=== PATIENT | male | born 1955 | race Caucasian/White ===

== ENCOUNTER 2016-07-07 01:07 | Inpatient (IN) | payer OTHER ==
[2016-07-07] MEDS ORDERED: SODIUM CHLORIDE 0.9% 1,000 ML IV STA ×2 (01:26→03:04)
--- NOTE | 2016-07-07 01:48 | ED ---
General Adult HPI - General Chief complaint: Nausea/Vomiting/Diarrhea Stated complaint: vomiting x 1 week Time Seen by Provider: 07/07/16 01:16 Source: patient, RN notes reviewed Mode of arrival: ambulatory Limitations: no limitations - History of Present Illness Initial comments: 60-year-old male presents emergency Department chief complaint not feeling well. Patient states that his been sick for over the last week. Patient states started with upper respiratory cold-like symptoms including cough, runny nose, fever and chills. Patient states that he saw his doctor in which she was prescribed an inhaler, antibiotics and Medrol Dosepak. Patient states his been taken Augmentin antibiotics. Patient states she's had uncontrollable nausea, vomiting. Patient had some loose stools. Patient states he just denies does not feel well.. Patient states he feels dehydrated. Patient states she has no specific abdominal pain at this time. Patient denies any chest pain at this time though he didn't state when he went to his doctor he did have chest pain. - Related Data Home Medications Medication Instructions Recorded Confirmed Atenolol [Tenormin] 50 mg PO QAM 12/11/13 03/18/15 Cyanocobalamin [Vitamin B-12] 500 mcg PO DAILY 12/11/13 03/18/15 Ferrous Sulfate [Feosol] 325 mg PO DAILY 12/11/13 03/18/15 Isosorbide Mononitrate [Imdur] 30 mg PO QAM 12/11/13 03/18/15 Pantoprazole Sodium [Protonix] 40 mg PO DAILY 12/11/13 03/18/15 Quinapril HCl [Accupril] 20 mg PO QAM 12/11/13 03/18/15 busPIRone HCL [Buspar] 15 mg PO BID 12/11/13 03/18/15 Previous Rx's Medication Instructions Recorded Docusate [Colace] 100 mg PO BID #30 capsule 01/30/15 Allergies Allergy/AdvReac Type Severity Reaction Status Date / Time No Known Allergies Allergy Verified 07/07/16 01:16 Review of Systems ROS Statement: Those systems with pertinent positive or pertinent negative responses have been documented in the HPI. ROS Other: All systems not noted in ROS Statement are negative. Past Medical History Past Medical History: CVA/TIA, GERD/Reflux, Hypertension, Osteoarthritis (OA), Skin Disorder Additional Past Medical History / Comment(s): MIGRAINES, HEART MURMUR, IRREGULAR HEARTBEAT, HIATAL HERNIA, ANEMIA, wound tailbone History of Any Multi-Drug Resistant Organisms: None Reported Past Surgical History: Hernia Repair, Orthopedic Surgery Additional Past Surgical History / Comment(s): RT SHOULDER REPAIR, RT ACHILLES TENDON, HEMORRHOIDS, MULTIPLE FATTY TUMORS. LT INGUINAL HERNIA REPAIR, FINGER REPAIR LT INDEX Past Anesthesia/Blood Transfusion Reactions: No Reported Reaction Additional Past Anesthesia/Blood Transfusion Reaction / Comment(s): UNKNOWN FAMILY HX Past Psychological History: Anxiety, Depression Smoking Status: Former smoker Past Alcohol Use History: None Reported Past Drug Use History: None Reported Additional Drug Use History / Comment(s): CURRENTLY USES MARIJUANA OCCASIONALLY - Past Family History Mother Family Medical History: Cancer Additional Family Medical History / Comment(s): BREAST CA Father Additional Family Medical History / Comment(s): BRAIN ANEURYSM General Exam Limitations: no limitations General appearance: alert, in no apparent distress Head exam: Present: atraumatic, normocephalic, normal inspection Eye exam: Present: normal appearance, PERRL, EOMI. Absent: scleral icterus, conjunctival injection, periorbital swelling ENT exam: Present: normal exam, normal oropharynx, mucous membranes moist, TM's normal bilaterally, normal external ear exam Neck exam: Present: normal inspection, full ROM. Absent: tenderness, meningismus, lymphadenopathy Respiratory exam: Present: normal lung sounds bilaterally. Absent: respiratory distress, wheezes, rales, rhonchi, stridor Cardiovascular Exam: Present: regular rate, normal rhythm, normal heart sounds. Absent: systolic murmur, diastolic murmur, rubs, gallop, clicks GI/Abdominal exam: Present: soft, tenderness (Mild epigastric tenderness), normal bowel sounds. Absent: distended, guarding, rebound, rigid Back exam: Absent: CVA tenderness (R), CVA tenderness (L) Neurological exam: Present: alert, oriented X3, CN II-XII intact Skin exam: Present: warm, dry, intact, normal color. Absent: rash Course Vital Signs 07/07/16 07/07/16 01:14 02:41 Temperature 98 F 97.8 F Pulse Rate 89 73 Respiratory 24 24 Rate Blood Pressure 162/90 158/96 O2 Sat by Pulse 98 96 Oximetry Medical Decision Making - Lab Data Result diagrams: 07/07/16 01:40 07/07/16 01:40 Lab Results 07/07/16 07/07/16 07/07/16 Range/Units 01:40 01:40 01:40 WBC 13.3 H (3.8-10.6) k/uL RBC 5.24 (4.30-5.90) m/uL Hgb 16.8 (13.0-17.5) gm/dL Hct 49.7 (39.0-53.0) % MCV 94.8 (80.0-100.0) fL MCH 32.1 (25.0-35.0) pg MCHC 33.9 (31.0-37.0) g/dL RDW 12.8 (11.5-15.5) % Plt Count 464 H (150-450) k/uL Neutrophils % 81 % Lymphocytes % 12 % Monocytes % 6 % Eosinophils % 0 % Basophils % 0 % Neutrophils # 10.8 H (1.3-7.7) k/uL Lymphocytes # 1.5 (1.0-4.8) k/uL Monocytes # 0.7 (0-1.0) k/uL Eosinophils # 0.0 (0-0.7) k/uL Basophils # 0.0 (0-0.2) k/uL Sodium 138 (137-145) mmol/L Potassium 4.9 (3.5-5.1) mmol/L Chloride 94 L (98-107) mmol/L Carbon Dioxide 25 (22-30) mmol/L Anion Gap 19 mmol/L BUN 27 H (9-20) mg/dL Creatinine 0.80 (0.66-1.25) mg/dL Est GFR (MDRD) Af Amer >60 (>60 ml/min/1.73 sqM) Est GFR (MDRD) Non-Af >60 (>60 ml/min/1.73 sqM) Glucose 172 H (74-99) mg/dL Plasma Lactic Acid Jack 4.8 H* (0.7-2.0) mmol/L Calcium 10.5 H (8.4-10.2) mg/dL Total Bilirubin 1.1 (0.2-1.3) mg/dL AST 30 (17-59) U/L ALT 35 (21-72) U/L Alkaline Phosphatase 85 (38-126) U/L Troponin I (0.000-0.034) ng/mL Total Protein 8.4 H (6.3-8.2) g/dL Albumin 5.1 H (3.5-5.0) g/dL Amylase 75 (30-110) U/L Lipase 104 (23-300) U/L Urine Color Urine Appearance (Clear) Urine pH (5.0-8.0) Ur Specific Brock (1.001-1.035) Urine Protein (Negative) Urine Glucose (UA) (Negative) Urine Ketones (Negative) Urine Blood (Negative) Urine Nitrate (Negative) Urine Bilirubin (Negative) Urine Urobilinogen (<2.0) mg/dL Ur Leukocyte Esterase (Negative) Urine RBC (0-5) /hpf Urine WBC (0-5) /hpf Hyaline Casts (0-2) /lpf Urine Mucus (None) /hpf Influenza Type A RNA (Not Detectd) Influenza Type B (PCR) (Not Detectd) 07/07/16 07/07/16 07/07/16 Range/Units 01:40 01:40 02:30 WBC (3.8-10.6) k/uL RBC (4.30-5.90) m/uL Hgb (13.0-17.5) gm/dL Hct (39.0-53.0) % MCV (80.0-100.0) fL MCH (25.0-35.0) pg MCHC (31.0-37.0) g/dL RDW (11.5-15.5) % Plt Count (150-450) k/uL Neutrophils % % Lymphocytes % % Monocytes % % Eosinophils % % Basophils % % Neutrophils # (1.3-7.7) k/uL Lymphocytes # (1.0-4.8) k/uL Monocytes # (0-1.0) k/uL Eosinophils # (0-0.7) k/uL Basophils # (0-0.2) k/uL Sodium (137-145) mmol/L Potassium (3.5-5.1) mmol/L Chloride (98-107) mmol/L Carbon Dioxide (22-30) mmol/L Anion Gap mmol/L BUN (9-20) mg/dL Creatinine (0.66-1.25) mg/dL Est GFR (MDRD) Af Amer (>60 ml/min/1.73 sqM) Est GFR (MDRD) Non-Af (>60 ml/min/1.73 sqM) Glucose (74-99) mg/dL Plasma Lactic Acid Jack (0.7-2.0) mmol/L Calcium (8.4-10.2) mg/dL Total Bilirubin (0.2-1.3) mg/dL AST (17-59) U/L ALT (21-72) U/L Alkaline Phosphatase (38-126) U/L Troponin I <0.012 (0.000-0.034) ng/mL Total Protein (6.3-8.2) g/dL Albumin (3.5-5.0) g/dL Amylase (30-110) U/L Lipase (23-300) U/L Urine Color Yellow Urine Appearance Cloudy (Clear) Urine pH 6.5 (5.0-8.0) Ur Specific Brock 1.021 (1.001-1.035) Urine Protein 1+ H (Negative) Urine Glucose (UA) Negative (Negative) Urine Ketones Negative (Negative) Urine Blood Negative (Negative) Urine Nitrate Negative (Negative) Urine Bilirubin Negative (Negative) Urine Urobilinogen <2.0 (<2.0) mg/dL Ur Leukocyte Esterase Negative (Negative) Urine RBC 1 (0-5) /hpf Urine WBC 2 (0-5) /hpf Hyaline Casts 4 H (0-2) /lpf Urine Mucus Rare H (None) /hpf Influenza Type A RNA Not Detected (Not Detectd) Influenza Type B (PCR) Not Detected (Not Detectd) 07/07/16 Range/Units 03:40 WBC (3.8-10.6) k/uL RBC (4.30-5.90) m/uL Hgb (13.0-17.5) gm/dL Hct (39.0-53.0) % MCV (80.0-100.0) fL MCH (25.0-35.0) pg MCHC (31.0-37.0) g/dL RDW (11.5-15.5) % Plt Count (150-450) k/uL Neutrophils % % Lymphocytes % % Monocytes % % Eosinophils % % Basophils % % Neutrophils # (1.3-7.7) k/uL Lymphocytes # (1.0-4.8) k/uL Monocytes # (0-1.0) k/uL Eosinophils # (0-0.7) k/uL Basophils # (0-0.2) k/uL Sodium (137-145) mmol/L Potassium (3.5-5.1) mmol/L Chloride (98-107) mmol/L Carbon Dioxide (22-30) mmol/L Anion Gap mmol/L BUN (9-20) mg/dL Creatinine (0.66-1.25) mg/dL Est GFR (MDRD) Af Amer (>60 ml/min/1.73 sqM) Est GFR (MDRD) Non-Af (>60 ml/min/1.73 sqM) Glucose (74-99) mg/dL Plasma Lactic Acid Jack 2.2 H* (0.7-2.0) mmol/L Calcium (8.4-10.2) mg/dL Total Bilirubin (0.2-1.3) mg/dL AST (17-59) U/L ALT (21-72) U/L Alkaline Phosphatase (38-126) U/L Troponin I (0.000-0.034) ng/mL Total Protein (6.3-8.2) g/dL Albumin (3.5-5.0) g/dL Amylase (30-110) U/L Lipase (23-300) U/L Urine Color Urine Appearance (Clear) Urine pH (5.0-8.0) Ur Specific Brock (1.001-1.035) Urine Protein (Negative) Urine Glucose (UA) (Negative) Urine Ketones (Negative) Urine Blood (Negative) Urine Nitrate (Negative) Urine Bilirubin (Negative) Urine Urobilinogen (<2.0) mg/dL Ur Leukocyte Esterase (Negative) Urine RBC (0-5) /hpf Urine WBC (0-5) /hpf Hyaline Casts (0-2) /lpf Urine Mucus (None) /hpf Influenza Type A RNA (Not Detectd) Influenza Type B (PCR) (Not Detectd) Disposition Clinical Impression: Pneumonia, Nausea & vomiting, Elevated lactic acid level Disposition: ADMITTED IP TO THIS HOSP
[2016-07-07 01:54] LABS: Basophils % (A) 0 %; Eosinophils % (A) 0 %; HCT 49.7 % (39.0-53.0); HDW 2.22; HGB 16.8 gm/dL (13.0-17.5); Luc # (Auto) 0.18; Luc % (Auto) 1; Lymphocytes # (A) 1.5 k/uL (1.0-4.8); Lymphocytes % (A) 12 %; MCH 32.1 pg (25.0-35.0); MCHC 33.9 g/dL (31.0-37.0); MCV 94.8 fL (80.0-100.0); Mean Platelet Volume 7.6; Monocytes # (A) 0.7 k/uL (0-1.0); Monocytes % (A) 6 %; Neutrophils # (A) 10.8 k/uL (1.3-7.7); Neutrophils % (A) 81 %; RBC 5.24 m/uL (4.30-5.90); RDW 12.8 % (11.5-15.5); WBC 13.3 k/uL (3.8-10.6); WBC (Perox) 13.33
[2016-07-07 01:58] LABS: Appearance,Urine Cloudy (Clear); Bilirubin,Urine Negative (Negative); Glucose,Urine (UA) Negative (Negative); Ketones,Urine Negative (Negative); Leukocyte Esterase,Urine Negative (Negative); Mucus,Urine Rare /hpf; Nitrite,Urine Negative (Negative); PH, Urine 6.5 (5.0-8.0); Particle Count 2900; Protein,Urine 1+ (Negative); RBC,Urine 1 /hpf (0-5); Specific Gravity,Urine 1.021 (1.001-1.035); UA Billing (MACRO vs. MICRO) MICRO; Urobilinogen,Urine <2.0 mg/dL (<2.0); WBC,Urine 2 /hpf (0-5)
[2016-07-07 01:59] LABS: ALT 35 U/L (21-72); AST 30 U/L (17-59); Alkaline Phosphatase 85 U/L (38-126); Amylase 75 U/L (30-110); Anion Gap 19 mmol/L; Blood Urea Nitrogen 27 mg/dL (9-20); Calcium 10.5 mg/dL (8.4-10.2); Carbon Dioxide 25 mmol/L (22-30); Chloride 94 mmol/L (98-107); Glucose 172 mg/dL (74-99); Non-African American GFR(MDRD) >60 (>60 ml/min/1.73 sqM); Potassium 4.9 mmol/L (3.5-5.1); Sodium 138 mmol/L (137-145); Total Bilirubin 1.1 mg/dL (0.2-1.3); Total Protein 8.4 g/dL (6.3-8.2)
--- NOTE | 2016-07-07 01:59 | XR ---
EXAMINATION TYPE: XR chest 2V DATE OF EXAM: 07/07/2016 1:50 AM COMPARISON: NONE HISTORY: With nausea and vomiting TECHNIQUE: Frontal and lateral views of the chest are obtained. FINDINGS: Mild chronic interstitial lung changes are suggested. There is evidence of air-fluid levels in the retrocardiac area and is compatible with small hiatal he rnia. There is no focal air space opacity, pleural effusion, or pneumothorax seen. The cardiac silhouette size is within normal limits. Postsurgical changes are noted with broken wires at the right acromi oclavicular joint with old fractures and degenerative changes.. Degenerative changes are also present in the left acromioclavicular joint. Mild degenerative changes in the thoracic spine. IMPRESSION: 1. No acute cardiopulmonary process. 2. Chronic lung changes. 3. Hiatal hernia.
--- NOTE | 2016-07-07 02:00 | XR ---
EXAMINATION TYPE: XR KUB DATE OF EXAM: 07/07/2016 1:50 AM CLINICAL HISTORY: Nausea and vomiting TECHNIQUE: Single supine KUB image of the abdomen is obtained. COMPARISON: None. FINDINGS: Mild gaseous distention of bowel loops in the abdomen with few air-fluid levels with suggestion of mi ld ileus in the right abdomen. Moderate fecal material is noted in the colon. No significant bowel ob struction is noted. There is no visceromegaly, pneumoperitoneum, or abnormal calcification appreciated. The lung bases are clear. [id number] degenerative changes in the thoracolumbar spine. IMPRESSION: Possible mild ileus or enteritis changes. Overall nonobstructive bowel gas pattern.
[2016-07-07] MEDS: ONDANSETRON 4 MG/2 ML VIAL IVP STA ×2 (02:25→04:05)
[2016-07-07] MEDS ORDERED: RX INFO: IV CONTRAST WAS GIVEN 1 EACH MISC MISCELLANE PRN (03:04)
[2016-07-07] MEDS ORDERED: SODIUM CHLORIDE 0.9% 1,000 ML IV ONE (03:04)
[2016-07-07] MEDS ORDERED: FAMOTIDINE 20 MG/2 ML VIAL IV STA (03:04)
[2016-07-07] MEDS ORDERED: MORPHINE SULFATE 4 MG/ML SYRINGE IVP STA (03:48)
--- NOTE | 2016-07-07 04:14 | CT ---
EXAMINATION TYPE: CT abdomen pelvis w con DATE OF EXAM: 07/07/2016 3:41 AM COMPARISON: NONE HISTORY: vomiting abdominal pain, elevated lactic acid. CT DLP: 369.70 mGycm Automated exposure control for dose reduction was used. TECHNIQUE: Helical acquisition of images was performed from the lung bases through the pelvis. CONTRAST: Performed without Oral Contrast and with IV Contrast, patient injected with 100 mL of Omnipaque 300. FINDINGS: LUNG BASES: There is focal patchy opacity in the left lung base and is probably related to chronic sc arring. Mild focal active infiltrate cannot be excluded. There is moderate hiatal hernia. LIVER/GB: Tiny benign-appearing 5 mm cyst is noted in the liver in the axial image 12. There is anoth er similar cystic lesion in the right hepatic lobe posteriorly. Gallbladder appears unremarkable. PANCREAS: No significant abnormality is seen. SPLEEN: No significant abnormality is seen. ADRENALS: No significant abnormality is seen. KIDNEYS: No significant abnormality is seen. Mild cystic changes are suggested in the right kidney wi th one of the largest cyst measuring 6 mm in the axial image 29. RETROPERITONEAL ADENOPATHY: None visualized. Mild atherosclerotic calcification is noted in the abdo raymond aorta and iliac arteries. REPRODUCTIVE ORGANS: Prostate gland is enlarged in size. URINARY BLADDER: No significant abnormality is seen. PELVIC ADENOPATHY: None visualized. OSSEOUS STRUCTURES: Multilevel mild degenerative changes in the thoracolumbar spine is noted. BOWEL: Mild to moderate colonic diverticulosis is noted. [id number] fecal material is noted in the colon and rectum. Stomach showed moderate hiatal hernia. Small bowel loops appear grossly unremarkable. OTHER: Small fat-containing inguinal hernias are noted bilaterally. IMPRESSION: 1. POSSIBLE SMALL INFILTRATE IN THE LEFT LUNG BASE VERSUS CHRONIC SCARRING. 2. HIATAL HERNIA. 3. Mild to moderate colonic diverticulosis without definite acute diverticulitis. 4. Visualized appendix appears grossly unremarkable. 5. Benign-appearing cysts in the liver. A short-term follow-up in 3-6 month time may BE helpful. 6. Enlarged prostate gland. 7. Mild cystic changes of benign nature in the right kidney.
[2016-07-07] MEDS ORDERED: PNEUMONIA PROTOCOL UTILIZED 1 EACH MISC PO PRN (04:23)
[2016-07-07] MEDS ORDERED: ALBUTEROL NEBULIZED 2.5 MG/3 ML INHALATION PRN (04:23)
[2016-07-07] MEDS ORDERED: LEVOFLOXACIN 750MG-D5W PMX 750 MG in DEXTROSE/WATER 1 150ML.BAG IVPB STA (04:23)
[2016-07-07 05:31] VITALS: BMI 22.0
[2016-07-07] MEDS: SODIUM CHLORIDE 0.9% 1,000 ML IV SCH ×3 (05:59→21:19)
[2016-07-07] MEDS: ONDANSETRON 4 MG/2 ML VIAL IVP PRN ×2 (08:16→16:04)
[2016-07-07] MEDS ORDERED: ALBUTEROL INHALER 60 PUFF/8 GM INHALER INHALATION PRN (10:41)
[2016-07-07] MEDS: NAPROXEN 250 MG TAB PO PRN (10:44)
[2016-07-07] MEDS: BUDESONIDE 1 MG/2 ML NEBU INHALATION SCH ×2 (12:20→19:10)
[2016-07-07] MEDS: IPRATROPIUM-ALBUTEROL 3 ML NEB INHALATION SCH ×3 (12:20→19:10)
--- NOTE | 2016-07-07 12:53 | HP ---
DATE OF ADMISSION: 07/07/2016 PRESENTING COMPLAINT: Cough, short of breath. HISTORY OF PRESENTING COMPLAINT: This is a 60-year-old patient of Dr. Hopkins whose chronic stable medical conditions include hypertension, osteoarthritis, hiatal hernia, anxiety, depression. Patient for 7 days has been battling with a cough, some shortness of breath, dizziness. Patient did have about 3 days ago, perspiring, decreased appetite, rundown. Admitted in the ER, felt to have pneumonia and admitted for the same. REVIEW OF SYSTEMS: CONSTITUTIONAL: Tired. HEENT: Some headache. RESPIRATORY: As above. CARDIOVASCULAR: None. GASTROINTESTINAL: None. GENITOURINARY: None. MUSCULOSKELETAL: Arthritic pain in the hands. DERMATOLOGICAL: None. HEMATOLOGICAL: None. LYMPHATICS: None. PSYCHIATRY: Anxiety, depression, controlled. NEUROLOGICAL: None. Past history of stroke, ( ) deficit, hypertension, osteoarthritis of the hands, hiatal hernia, irregular heartbeat, anemia. PAST SURGICAL HISTORY: Hernia repair, right shoulder repair, right Achilles tendon repair, hemorrhoid repair, multiple fatty tumors, left inguinal hernia repair, finger repair left index. SOCIAL HISTORY: Lives with his daughter and son-in-law. Works in the [employer] in [employer]. Does marijuana occasionally. Family history of breast cancer. HOME MEDICATIONS: 1. Prednisone taper. 2. BuSpar 15 mg p.o. b.i.d. 3. Accupril 20 mg p.o. daily. 4. Protonix 40 mg p.o. daily. 5. Imdur 30 mg p.o. daily. 6. Iron 325 p.o. daily. 7. Vitamin B12, 500 mcg p.o. daily. 8. Tenormin 50 mg p.o. daily. 9. Augmentin 875 one tablet p.o. q.12. 10. Ventolin 2 puffs q.4 p.r.n. ALLERGIES: None. On examination, temperature 98, pulse 89, respiration 24, blood pressure 162/90, pulse ox 98% on room air. Repeat blood pressure 149/87. GENERAL APPEARANCE: Average build, lying in bed, tired appearing. EYES: Pupils equal. Conjunctivae normal. HEENT: External appearance of nose and ears normal. Oral cavity normal. NECK: JVD not raised. Mass not palpable. RESPIRATORY: Effort increased. LUNGS: Some coarse breath on the left side posteriorly. CARDIOVASCULAR: First and second sounds normal. No edema. ABDOMEN: Soft, nontender. Liver and spleen not palpable. LYMPHATIC: No lymph node palpable in neck or axillae. PSYCHIATRIC: Alert and oriented x3. Mood and affect slightly anxious appearing. NEUROLOGICAL: Pupils equal. Cranial nerves grossly intact. Power and sensation grossly intact. INVESTIGATIONS: White count 13.3, hemoglobin 16.8. Potassium 4.9. BUN 27. Plasma lactic acid 4.8. Influenza negative. Check x-ray shows some emphysematous changes, ( ) pulmonary artery. CT scan of the abdomen and pelvis ( ). ASSESSMENT: 1. Acute pneumonitis, could be viral with possibly secondary bacterial infection. 2. Emphysematous changes on the chest x-ray possibly acute exacerbation from above. 3. Essential hypertension. 4. Primary osteoarthritis especially of the hands. 5. Hiatal hernia. 6. Anxiety, depression not otherwise specified. PLAN: The patient will be started on bronchodilators. Give a burst of steroids. Care was discussed with the patient. Will also add some Claritin-D.
[2016-07-07] MEDS: LISINOPRIL 20 MG TAB PO SCH (15:56)
[2016-07-07] MEDS: ATENOLOL 50 MG TAB PO SCH (15:56)
[2016-07-07] MEDS: busPIRone HCl 5 MG TAB PO SCH ×2 (15:56→21:36)
[2016-07-07] MEDS: PANTOPRAZOLE 40 MG TABLET PO SCH (15:56)
[2016-07-07] MEDS: ISOSORBIDE MONONITRATE ER 30 MG TAB.ER.24H PO SCH (15:58)
[2016-07-07] MEDS: CYANOCOBALAMIN 500 MCG TAB PO SCH (15:59)
[2016-07-07] MEDS: FERROUS SULFATE 325 MG TAB PO SCH (16:00)
[2016-07-07] MEDS: LORATADINE-PSEUDOEPH 5-120 MG 1 EACH TAB.ER.12H PO SCH ×2 (16:01→21:35)
--- NOTE | 2016-07-07 19:39 | CONS ---
DATE OF CONSULTATION: 07/07/2016 REASON FOR CONSULTATION: Chronic obstructive pulmonary disease. HISTORY OF PRESENTING ILLNESS: Mr. Finn Alex is a 60-year-old man with seen, evaluated, examined on third floor. Patient has been admitted to the hospital from the emergency department earlier this morning with progressive increasing shortness of breath and not feeling well. Symptoms started about a week ago with upper respiratory process, nasal stuffiness and congestion. Patient has been placed on oral antibiotics by the primary service without any significant relief. Due to progressive increasing shortness of breath and the sputum production, decided to come into the hospital for further evaluation. The patient had some chest tightness as well, which at the time of evaluation is fairly gone. PAST MEDICAL HISTORY: Significant for CVA, TIA, GERD, hypertension, hypertensive cardiovascular disease, degenerative joint disease and osteoarthritis. History of chronic migraine headaches, arrhythmia, hiatal hernia, and anemia. PAST SURGICAL HISTORY: Significant for hernia repair, status post right shoulder surgery, right Achilles tendon repair, hemorrhoid surgery, fatty tumor removal, left inguinal hernia repair, finger repair of the left index. FAMILY HISTORY AND SOCIAL HISTORY: Unremarkable and noncontributory. Used to smoke in the remote past, quit several years ago. Occasionally consumes marijuana. History of breast cancer on maternal side. Medications at home include: Medrol Dosepak, BuSpar, Accupril, Protonix, Imdur, Feosol, vitamin B12, Tenormin, Augmentin and Ventolin. Medications while in the hospital include: Albuterol as needed, DuoNeb updraft 4 times a day, atenolol 50 mg daily, Pulmicort 2 times a day, BuSpar, Rocephin 1 gram daily, vitamin B12, ferrous sulfate, Imdur, Zestril 20 mg daily, loratadine, sliding scale insulin, Naprosyn, Protonix, IV fluid normal saline 150 mL an hour. REVIEW OF SYSTEMS: Otherwise unremarkable and noncontributory. On examination, blood pressure is 136/82, respirations 16 to 18, heart rate is 74, temperature 98, saturation of 100% on 2 liters oxygen. HEENT: Atraumatic, normocephalic. Pharynx is clear without any exudate. NECK: Supple without lymphadenopathy, jugular venous distention or carotid bruit. LUNGS: Bilateral good air entry is present without any significant rales, rhonchi, or rub. HEART: Regular rate and rhythm. S1 and S2 audible. ABDOMEN: Soft. No rebound or rigidity. EXTREMITIES: +1. NEUROLOGICAL EXAMINATION: Awake and alert. KUB is suggestive of ileus like pattern. Nonobstructive gas pattern. The chest x-ray performed in the emergency department revealed chronic lung changes along with hiatal hernia. CT scan of the abdomen and pelvis: Left lower lobe pneumonia, hiatal hernia, diverticulosis, BPH ( ) in the right kidney. Other laboratory data reviewed. White cell count is 13,300. Hemoglobin 16 and hematocrit 49, platelet count of 464,000. Chemistry: BUN and creatinine are 27 and 0.8. Lactic acid is 4.8 now came down to 2.2. LFTs are within normal limits. Calcium is 10.5. Urinalysis is unremarkable. Influenza A and B both negative. IMPRESSION: 1. Left lower lobe pneumonia, early sepsis associated with pneumonia. 2. Acute chronic obstructive pulmonary disease exacerbation. 3. Chest pain on the left side, likely related to pneumonia, which is stable now. 4. Lactic acidosis, likely due to sepsis. 5. Severe chronic obstructive pulmonary disease. 6. Hypertension, hypertensive cardiovascular disease. PLAN AND RECOMMENDATIONS: As above. Continue antibiotics and breathing treatments. Supportive care. Will put patient on IV steroids as well and try to obtain a sputum culture. Continue gentle rehydration. Repeat chest x-ray in next 24 to 48 hours. Maintain patient on DVT and peptic ulcer disease prophylaxis as well.
[2016-07-07] MEDS: INSULIN LISPRO (humaLOG) 300 UNIT/3 ML VIAL SQ SCH (21:24)
[2016-07-07 21:32] LABS: Glucose,Whole Blood 97 mg/dL (75-99)
[2016-07-07] MEDS: HEPARIN SODIUM,PORCINE 5,000 UNIT/ML 1 ML VIAL SQ SCH (21:35)
[2016-07-07] MEDS: methylPREDNISolone SOD SUCCI 40 MG/ML 1 ML VIAL IV SCH (21:35)
[2016-07-08] MEDS: SODIUM CHLORIDE 0.9% 1,000 ML IV SCH ×3 (05:08→21:23)
[2016-07-08] MEDS: NAPROXEN 250 MG TAB PO PRN (05:09)
[2016-07-08] MEDS: BUDESONIDE 1 MG/2 ML NEBU INHALATION SCH ×2 (07:28→20:54)
[2016-07-08] MEDS: IPRATROPIUM-ALBUTEROL 3 ML NEB INHALATION SCH ×4 (07:28→20:54)
[2016-07-08 08:32] LABS: Hemoglobin A1C 6.1 % (4.2-6.1)
[2016-07-08] MEDS: HEPARIN SODIUM,PORCINE 5,000 UNIT/ML 1 ML VIAL SQ SCH ×2 (09:13→21:14)
[2016-07-08] MEDS: busPIRone HCl 5 MG TAB PO SCH ×2 (09:13→21:13)
[2016-07-08] MEDS: INSULIN LISPRO (humaLOG) 300 UNIT/3 ML VIAL SQ SCH ×4 (09:13→21:07)
[2016-07-08] MEDS: PANTOPRAZOLE 40 MG TABLET PO SCH (09:14)
[2016-07-08] MEDS: ATENOLOL 50 MG TAB PO SCH (09:14)
[2016-07-08] MEDS: LORATADINE-PSEUDOEPH 5-120 MG 1 EACH TAB.ER.12H PO SCH ×2 (09:14→21:14)
[2016-07-08] MEDS: LISINOPRIL 20 MG TAB PO SCH (09:15)
[2016-07-08] MEDS: methylPREDNISolone SOD SUCCI 40 MG/ML 1 ML VIAL IV SCH ×2 (09:15→21:14)
--- NOTE | 2016-07-08 09:41 | XR ---
EXAMINATION TYPE: XR chest 1V portable DATE OF EXAM: 07/08/2016 8:25 AM COMPARISON: 07/07/2016 HISTORY: Pain TECHNIQUE: Single frontal view of the chest is obtained. FINDINGS: There is no focal air space opacity, pleural effusion, or pneumothorax seen. The cardiac silhouette size is within normal limits. The osseous structures are intact. Retrocardiac density king ggestive of hiatal hernia. Arthropathy of the shoulders noted. IMPRESSION: 1. No acute process 2. Correlate for hiatal hernia
[2016-07-08] MEDS: ISOSORBIDE MONONITRATE ER 30 MG TAB.ER.24H PO SCH (12:49)
[2016-07-08] MEDS: FERROUS SULFATE 325 MG TAB PO SCH (12:49)
[2016-07-08] MEDS: CYANOCOBALAMIN 500 MCG TAB PO SCH (12:49)
[2016-07-08] MEDS: ONDANSETRON 4 MG/2 ML VIAL IVP PRN ×3 (12:52→21:13)
[2016-07-08 12:55] LABS: Glucose,Whole Blood 108 mg/dL (75-99)
[2016-07-08 14:57] LABS: Basophils % (A) 0 %; CH 32.9; CHCM 34.5; Eosinophils % (A) 0 %; HCT 42.4 % (39.0-53.0); HDW 2.26; HGB 14.1 gm/dL (13.0-17.5); Luc # (Auto) 0.07; Luc % (Auto) 1; Lymphocytes # (A) 0.6 k/uL (1.0-4.8); Lymphocytes % (A) 6 %; MCH 31.8 pg (25.0-35.0); MCHC 33.2 g/dL (31.0-37.0); MCV 95.8 fL (80.0-100.0); Mean Platelet Volume 8.1; Monocytes # (A) 0.3 k/uL (0-1.0); Monocytes % (A) 3 %; Neutrophils # (A) 7.8 k/uL (1.3-7.7); Neutrophils % (A) 89 %; RBC 4.43 m/uL (4.30-5.90); RDW 12.5 % (11.5-15.5); WBC 8.7 k/uL (3.8-10.6); WBC (Perox) 8.74
[2016-07-08 15:13] LABS: ALT 35 U/L (21-72); AST 21 U/L (17-59); Alkaline Phosphatase 63 U/L (38-126); Anion Gap 11 mmol/L; Blood Urea Nitrogen 14 mg/dL (9-20); Calcium 9.3 mg/dL (8.4-10.2); Carbon Dioxide 24 mmol/L (22-30); Chloride 99 mmol/L (98-107); Glucose 122 mg/dL (74-99); Non-African American GFR(MDRD) >60 (>60 ml/min/1.73 sqM); Potassium 4.9 mmol/L (3.5-5.1); Sodium 134 mmol/L (137-145); Total Bilirubin 0.8 mg/dL (0.2-1.3); Total Protein 6.6 g/dL (6.3-8.2)
--- NOTE | 2016-07-08 16:26 | PN ---
DATE OF SERVICE: 07/08/2016 Mr. Finn Alex is a 60-year-old male, seen, evaluated, examined on the third floor. His shortness of breath and cough have improved. He is breathing relatively better. Somewhat shaky, though. His last set of vitals includes blood pressure 100/60, respiratory rate 16 to 18, heart rate 58. Temperature is 98. Saturation 100%. HEENT EXAMINATION: Otherwise unremarkable. NECK: Supple. LUNGS: Bilateral coarse breath sounds with expiratory wheezing and rhonchi. HEART: Regular rate, rhythm. S1, S2 audible. ABDOMEN: Soft. No rebound or rigidity. EXTREMITIES: Plus one. NEUROLOGICAL EXAMINATION: Otherwise awake and alert. Labs not done today. Blood culture so far no growth. Last chest x-ray performed earlier today was reviewed and compared with the prior x-ray. Hiatal hernia is seen. Some chronic lung changes are seen. ASSESSMENT: 1. Purulent tracheobronchitis. 2. Acute chronic obstructive pulmonary disease exacerbation. 3. Left lower lobe pneumonia. 4. Chest pain likely related to pneumonia, clinically better. 5. Lactic acidosis. Will monitor and observe. Increase activity as tolerated. Further recommendations pending. Continue antibiotics and breathing treatments.
[2016-07-08 16:56] LABS: Glucose,Whole Blood 103 mg/dL (75-99)
[2016-07-08] MEDS ORDERED: POLYETHYLENE GLYCOL 3350 17 GM POWD.PACK PO SCH (17:00)
[2016-07-08] MEDS ORDERED: METOCLOPRAMIDE 5 MG/ML 2 ML VIAL IVP PRN (18:41)
--- NOTE | 2016-07-08 20:58 | PN ---
DATE OF SERVICE: 07/08/2016 Presenting complaint: Cough, short of breath. INTERVAL HISTORY: This is a patient who presents with acute pneumonitis, likely secondary to bacterial infection, still gets ( ) tired, sputum production has gone down, still slightly short of breath. Patient stays at the baseline. He may not have a bowel movement for 4 to 5 days. Tolerate a liquid diet. Does get nauseated. Review of systems done for constitutional, cardiovascular, GI, pulmonary; relevant findings as above. Current medications include IV ceftriaxone and IV Solu-Medrol. On examination, remains afebrile, pulse 63, respiration 16, blood pressure 120/72, pulse ox 100%. GENERAL APPEARANCE: Sitting up, tired appearing. EYES: Pupils equal. Conjunctivae normal. NECK: JVD not raised. Mass not palpable. RESPIRATORY: Decreased breath sounds, some coarse of breath sounds on the left side. CARDIOVASCULAR: First and second sounds normal. No edema. ABDOMEN: Soft, nontender. Liver and spleen not palpable. PSYCHIATRY: Alert and oriented x3. Mood and affect slightly anxious appearing. INVESTIGATIONS: White count 8.7, hemoglobin 14.1, potassium 3.9. ASSESSMENT: 1. Acute pneumonitis, could be viral, possibly secondary ( ) infection, present on admission. 2. Acute exacerbation of emphysema, present on admission. 3. Essential hypertension. 4. Primary osteoarthritis, especially of the hands. 5. Hiatal hernia. 6. Anxiety, depression not otherwise specified. 7. Chronic constipation the patient normally has a bowel movement every 4 to 5 days. PLAN: Continue current medication and treatment plan. Including steroids. We will start the patient on MiraLax. Care was discussed with the patient. Also GI consult will be considered if he does not have a bowel movement.
[2016-07-08 21:25] LABS: Glucose,Whole Blood 114 mg/dL (75-99)
[2016-07-09 06:20] LABS: Glucose,Whole Blood 102 mg/dL (75-99)
[2016-07-09] MEDS: SODIUM CHLORIDE 0.9% 1,000 ML IV SCH ×2 (06:52→12:18)
[2016-07-09] MEDS: ONDANSETRON 4 MG/2 ML VIAL IVP PRN (06:52)
[2016-07-09] MEDS: PANTOPRAZOLE 40 MG TABLET PO SCH (06:52)
[2016-07-09] MEDS: INSULIN LISPRO (humaLOG) 300 UNIT/3 ML VIAL SQ SCH ×4 (06:52→21:30)
[2016-07-09] MEDS: IPRATROPIUM-ALBUTEROL 3 ML NEB INHALATION SCH ×4 (08:58→20:34)
[2016-07-09] MEDS: BUDESONIDE 1 MG/2 ML NEBU INHALATION SCH ×2 (08:58→20:34)
[2016-07-09] MEDS ORDERED: PROPAFENONE 150 MG TAB PO SCH (09:15)
[2016-07-09] MEDS ORDERED: APIXABAN 5 MG TAB PO SCH (09:30)
[2016-07-09] MEDS: ISOSORBIDE MONONITRATE ER 30 MG TAB.ER.24H PO SCH (09:40)
[2016-07-09] MEDS: LISINOPRIL 20 MG TAB PO SCH (09:40)
[2016-07-09] MEDS: busPIRone HCl 5 MG TAB PO SCH ×2 (09:40→21:30)
[2016-07-09] MEDS: ATENOLOL 50 MG TAB PO SCH (09:40)
[2016-07-09] MEDS: methylPREDNISolone SOD SUCCI 40 MG/ML 1 ML VIAL IV SCH ×2 (09:41→21:30)
[2016-07-09] MEDS: LORATADINE-PSEUDOEPH 5-120 MG 1 EACH TAB.ER.12H PO SCH ×2 (09:41→21:30)
--- NOTE | 2016-07-09 11:26 | ECHOF ---
Referral Reason:Chest pain MEASUREMENTS -------- HEIGHT: 172.7 cm WEIGHT: 64.4 kg BP: IVSd: 1.4 cm (0.6 - 1.1) LVIDd: 3.4 cm (3.9 - 5.3) LVPWd: 1.5 cm (0.6 - 1.1) IVSs: 2.0 cm LVIDs: 1.5 cm LVPWs: 1.9 cm Ao Diam: 3.4 cm (2.0 - 3.7) AV Cusp: 2.3 cm (1.5 - 2.6) LA Diam: 3.6 cm (2.7 - 3.8) MV EXCURSION: 13.666 mm (> 18.000) MV EF SLOPE: 103 mm/s (70 - 150) EPSS: 0.3 cm MV E Jose Elias: 0.92 m/s MV DecT: 266 ms MV A Jose Elias: 0.90 m/s MV E/A Ratio: 1.02 RAP: 5.00 mmHg RVSP: 12.80 mmHg FINDINGS -------- Sinus rhythm. This was a technically good study. There is moderate concentric left ventricular hypertrophy. Overall left ventricular systolic function is normal with, an EF between 55 - 60 %. The right ventricle is normal in size and function. The left atrium is normal in size. The right atrium is normal in size. Aortic valve is trileaflet and is mildly thickened. The mitral valve leaflets are mildly thickened. Mild mitral regurgitation is present. Mild tricuspid regurgitation present. The right ventricular systolic pressure, as measured by Doppler, is 12.80mmHg. Pulmonic valve appears structurally normal. The aortic root size is normal. The pericardium is normal. CONCLUSIONS -------- 1. Sinus rhythm. 2. Mild mitral regurgitation is present. 3. Mild tricuspid regurgitation present. 4. The right ventricular systolic pressure, as measured by Doppler, is 12.80mmHg. 5. Pulmonic valve appears structurally normal. 6. The aortic root size is normal. 7. The pericardium is normal. 8. This was a technically good study. 9. There is moderate concentric left ventricular hypertrophy. 10. Overall left ventricular systolic function is normal with, an EF between 55 - 60 %. 11. The right ventricle is normal in size and function. 12. The left atrium is normal in size. 13. The right atrium is normal in size. 14. Aortic valve is trileaflet and is mildly thickened. 15. The mitral valve leaflets are mildly thickened. OXYACETYLENE BURNER: Niya Moscoso RDCS
[2016-07-09 11:35] LABS: Glucose,Whole Blood 98 mg/dL (75-99)
--- NOTE | 2016-07-09 11:49 | CONS ---
DATE OF CONSULTATION: CHIEF COMPLAINT: Chest pain. Finn is a 60-year-old gentleman with history of hypertension, who is admitted to hospital with pneumonia and Cardiology had been consulted because of chest pain. The patient has chronic musculoskeletal pain and with coughing has been getting chest discomfort. Last night he was noted to have a ST segment elevation on his monitor; hence, cardiology has been consulted. Patient does not have any angina. EKG shows sinus rhythm with early repolarization changes. Since admission, the 3 sets of cardiac enzymes have been negative. Past medical history is significant for hypertension and atypical chest pain. Medications include Accupril 20 daily, Protonix 40 daily, Imdur 30 daily, iron, vitamin B12, Tenormin 50 daily, Augmentin, albuterol and BuSpar. ALLERGIES: No known drug allergies. FAMILY HISTORY: Negative for premature coronary artery disease. SOCIAL HISTORY: He denies current smoking, EtOH abuse or drug abuse. REVIEW OF SYSTEMS: HEENT: Unremarkable. CARDIAC: As described above. RESPIRATORY: Significant for cough and significant for nonproductive cough. GI: Negative. GENITOURINARY: Negative. ALLERGY/IMMUNOLOGY: Negative. MUSCULOSKELETAL: Significant for arthritis. PSYCHOSOCIAL: Negative. ENDOCRINE: Negative. DERM: Negative. CONSTITUTIONAL: Negative. The rest of the system review is not relevant. On exam, patient is comfortable at rest. Afebrile. Vital signs are stable. There is no jugular venous distention. Chest exam reveals bilateral occasional rhonchi. Heart exam reveals first and second heart sounds. No gallop. No murmur, no rub. Abdomen is soft, nontender. Exam of the extremities did not reveal edema. Peripheral pulses are felt. Labs show that the troponins are negative. Creatinine is 0.5. Potassium is 4.9. Hemoglobin is 14.1. EKG shows sinus rhythm with early repolarization changes. ASSESSMENT: 1. Chest pain. 2. Pneumonia. 3. History of hypertension. PLAN: Patient's chest discomfort is atypical and probably noncardiac in origin. EKG changes are related to early repolarization. From cardiac standpoint, I will obtain a 2-D echo to assess LV function and to rule out any pericardial disease. If this work-up is negative, patient is stable to be discharged home from our standpoint and will undergo a stress test once pneumonia issue resolves.
[2016-07-09] MEDS: CYANOCOBALAMIN 500 MCG TAB PO SCH (12:17)
[2016-07-09] MEDS: FERROUS SULFATE 325 MG TAB PO SCH (12:17)
--- NOTE | 2016-07-09 12:21 | PN ---
DATE OF SERVICE: 07/09/2016 Mr. Alex is seen, evaluated and examined. He is a pleasant 60-year-old male has issues associated with chest pain, abdominal discomfort, increased shortness of breath and cough. From respiratory standpoint, he is doing much better. His respiration has improved. He is less short of breath with less cough and congestion. He remains on breathing treatments and antibiotics. He is able to hold down his food now. No more nausea and vomiting has been seen. His last set of vitals include blood pressure is 126/79, respiratory rate 16, pulse 75, temperature 98, saturation 98% on 2 L oxygen. HEENT: Unremarkable. NECK: Supple. LUNGS: Bilateral good air entry. Fine expiratory wheezing and rhonchi are present. HEART: Regular rate and rhythm. S1 and S2 audible. ABDOMEN: Soft. No rebound or rigidity. EXTREMITIES: +1 peripheral pulses. NEUROLOGICAL EXAMINATION: Otherwise, awake and alert. Labs reviewed. Medications reviewed. Currently patient is on IV fluid normal saline 100 mL an hour, Protonix 40 mg daily, Zofran 4 mg as needed; also on Naprosyn, Reglan 10 mg q.6 hourly as needed, Solu-Medrol 40 q.12, Claritin-D, loratadine, Zestril, Imdur, sliding scale insulin, heparin, Feosol, Rocephin and DuoNeb; also on Tenormin 50 mg ( ). His last set of laboratory data reviewed and his last chest x-ray performed yesterday reviewed and compared with the prior x-ray. The pneumonia that was seen previously has improved significantly improved. IMPRESSION: 1. Acute purulent tracheobronchitis. 2. Severe chronic obstructive pulmonary disease. 3. Acute exacerbation of chronic obstructive pulmonary disease. 4. Hypertension, hypertensive cardiovascular disease. 5. Hiatal hernia. 6. Generalized anxiety disorder. PLAN AND RECOMMENDATION: Continue steroids, antibiotics, breathing treatments. Continue supportive care. Hopefully in the next 24 to 48 hours will change the IV antibiotics and IV steroids to p.o. Will follow.
[2016-07-09 16:54] LABS: Glucose,Whole Blood 107 mg/dL (75-99)
[2016-07-09 20:45] LABS: Glucose,Whole Blood 102 mg/dL (75-99)
[2016-07-09] MEDS: HEPARIN SODIUM,PORCINE 5,000 UNIT/ML 1 ML VIAL SQ SCH ×2 (20:49→21:31)
[2016-07-10] MEDS: SODIUM CHLORIDE 0.9% 1,000 ML IV SCH ×2 (04:06→11:57)
[2016-07-10 06:25] LABS: Glucose,Whole Blood 107 mg/dL (75-99)
[2016-07-10] MEDS: INSULIN LISPRO (humaLOG) 300 UNIT/3 ML VIAL SQ SCH ×2 (06:53→11:57)
[2016-07-10] MEDS: PANTOPRAZOLE 40 MG TABLET PO SCH (06:53)
[2016-07-10] MEDS: IPRATROPIUM-ALBUTEROL 3 ML NEB INHALATION SCH ×2 (08:08→11:35)
[2016-07-10] MEDS: BUDESONIDE 1 MG/2 ML NEBU INHALATION SCH (08:08)
[2016-07-10 08:32] VITALS: RESP 16; TEMP 97.5
[2016-07-10] MEDS: ATENOLOL 50 MG TAB PO SCH (08:36)
[2016-07-10] MEDS: busPIRone HCl 5 MG TAB PO SCH (08:36)
[2016-07-10] MEDS: methylPREDNISolone SOD SUCCI 40 MG/ML 1 ML VIAL IV SCH (08:37)
[2016-07-10] MEDS: HEPARIN SODIUM,PORCINE 5,000 UNIT/ML 1 ML VIAL SQ SCH (08:37)
[2016-07-10] MEDS: ISOSORBIDE MONONITRATE ER 30 MG TAB.ER.24H PO SCH (08:37)
[2016-07-10] MEDS: LISINOPRIL 20 MG TAB PO SCH (08:37)
[2016-07-10] MEDS: LORATADINE-PSEUDOEPH 5-120 MG 1 EACH TAB.ER.12H PO SCH (08:38)
--- NOTE | 2016-07-10 09:04 | PN ---
DATE OF SERVICE: 07/09/2016 PRESENTING COMPLAINT: Chest pain, abdominal discomfort. INTERVAL HISTORY: This patient initially presented with acute pneumonitis, probably likely secondary bacterial infection. Last evening was having chest pain, was transferred to telemetry floor. Serial cardiac enzymes were ordered. Seen by Dr. Odell from cardiology. Did not feel it was cardiac. When I saw the patient earlier today I ordered a soapsuds enema and later this evening the patient had a large bowel movement. Feels much better after the same. 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 Overall feeling much better. Review of systems done for constitutional, cardiovascular, GI, pulmonary; relevant findings as above. Current medications are reviewed that include IV ceftriaxone. On examination, temperature 97.2, pulse 60, respiratory rate 16, blood pressure 146/88, pulse ox 99% on 2-liters. GENERAL APPEARANCE: Sitting up, tired appearing. EYES: Pupils equal. Conjunctivae normal. NECK: JVD not raised. Mass not palpable. RESPIRATORY: Effort normal. LUNGS: Fair air entry. CARDIOVASCULAR: First and second sounds normal. No edema. ABDOMEN: Soft, nontender. Liver and spleen not palpable. PSYCHIATRY: Alert and oriented x3. Mood and affect slightly anxious appearing. INVESTIGATIONS: Troponin is negative. A 2-D echo shows no focal wall motion abnormality. ASSESSMENT: 1. Acute pneumonitis, probably viral with possible secondary to bacterial infection present on admission with good clinical response. 2. Acute exacerbation emphysema, present on admission, improved. 3. Essential hypertension. 4. Primary osteoarthritis especially of the hands. 5. Hiatal hernia. 6. Anxiety and depression, not otherwise specified. 7. Severe constipation, has responded well to enema with patient much feeling better after large bowel movement. PLAN: The patient continues to do well. Hopefully can be discharged tomorrow.
--- NOTE | 2016-07-10 10:03 | PN ---
60-year-old gentleman admitted to hospital with COPD exacerbation and cardiology has been consulted because of chest pain and abnormal EKG. This morning he is feeling better. Continues to be short of breath. His troponins have been negative. On exam, comfortable at rest. Vital signs are stable. There is no jugular venous distention. Chest exam reveals bilateral rhonchi. Heart exam reveals first and second heart sounds. No gallop. No murmur. Abdomen soft, nontender. Exam of the extremities did not reveal any edema. Peripheral pulses are felt. Labs have been reviewed. ASSESSMENT: 1. Precordial chest pain, atypical. 2. Abnormal EKG secondary to early repolarization changes. 3. Chronic obstructive pulmonary disease exacerbation. PLAN: Patient will continue with his current medical therapy.
[2016-07-10] MEDS: FERROUS SULFATE 325 MG TAB PO SCH (11:57)
[2016-07-10] MEDS: CYANOCOBALAMIN 500 MCG TAB PO SCH (11:57)
[2016-07-10 12:01] LABS: Glucose,Whole Blood 109 mg/dL (75-99)
[2016-07-10 12:02] VITALS: BP 123/70; PULSE 64
--- NOTE | 2016-07-10 15:04 | PN ---
Finn Alex who is a 60-year-old male, seen, evaluated, and examined on the sixth floor. This patient came into hospital with problems associated with nausea, vomiting, has issues with severe cough, congestion as well. From respiratory standpoint, he is doing better. His nausea and vomiting has improved. Hemodynamic status is stable. Last set of vitals include blood pressure is 123/64, respiratory rate 16, pulse 65, temperature 98, saturation 99% on 2 L oxygen. HEENT: Unremarkable. NECK: Supple. LUNGS: Good air entry bilaterally. HEART: Regular rate and rhythm. ABDOMEN: Soft. No rebound or rigidity. EXTREMITIES: +1 peripheral pulses. NEUROLOGICAL EXAMINATION: Otherwise, awake and alert. Labs reviewed. Medications reviewed as well. IMPRESSION: 1. Acute chronic obstructive pulmonary disease exacerbation. 2. Purulent tracheobronchitis. 3. Hypertension, hypertensive cardiovascular disease. 4. Gastroesophageal reflux disease and hiatal hernia. 5. Chest pain, cardiovascular evaluation is in progress. Patient underwent echocardiogram, results and report of echocardiogram has been reviewed. Ejection fraction was found to be 60% Will follow.
--- NOTE | 2016-07-11 19:16 | DS ---
DATE OF ADMISSION: 07/07/2016 DATE OF DISCHARGE: 07/10/2016 FINAL DIAGNOSIS(ES): 1. Acute pneumonitis probably viral with secondary bacterial infection present at admission with good clinical response. 2. Acute exacerbation emphysema present on admission improved. 3. Essential hypertension. 4. Primary osteoarthritis especially of the hands. 5. Hiatal hernia. 6. Anxiety, depression, not otherwise specified. 7. Severe constipation, responded well to laxatives. CONSULTATION: 1. Dr. Raiza Odell from cardiology. 2. Dr. Michael Jackson from pulmonary. HOSPITAL COURSE: This patient presented with what appeared to be pneumonitis and probably secondary bacterial infection, did well. Also had some chest pain. Troponins are negative. A 2-D echocardiogram was unremarkable. Doing much better at the time of discharge. The patient had some lingering ( ) cough. Afebrile, pulse oxing 98% on room air. On examination: LUNGS: Fair air entry. CARDIOVASCULAR: First and second seconds are normal. Care was discussed with the patient. DISCHARGE MEDICATIONS: 1. Tenormin 50 mg p.o. daily. 2. Vitamin B12 500 mcg p.o. daily. 3. Iron 325 p.o. daily. 4. Imdur 30 mg daily. 5. Protonix 40 mg p.o. daily. 6. Accupril 20 mg p.o. daily. 7. BuSpar 50 mg p.o. b.i.d. 8. Ventolin 2 puffs q.4 p.r.n. 9. Medrol Dosepak taper. 10. Augmentin 875 1 tablets p.o. q.12, 6 tablets. 11. MiraLax 17 grams p.o. Monday, Monday and Monday. Follow up with Dr. Hopkins in 2 days. Follow up with Dr. Raiza Odell in one week. Patient returned to work on 07/18/2016. Follow up with Dr. Michael Jackson. Discharge planning more than 35 minutes.
== END 2016-07-10 14:57 | disposition home or self-care (01) | DRG 190 ==
LOC: EC 01:07 → 3SUR 04:22 → 6SEL 07-08 22:47
PROVIDERS: ADMIT Hospitalist; ATTEND Hospitalist
DX: J44.0 Chronic obstructive pulmonary disease with (acute) lower respiratory infection (principal); J18.9 Pneumonia, unspecified organism; J12.9 Viral pneumonia, unspecified; E87.2 Acidosis; E86.0 Dehydration; I11.9 Hypertensive heart disease without heart failure; J44.1 Chronic obstructive pulmonary disease with (acute) exacerbation; R11.2 Nausea with vomiting, unspecified; R19.7 Diarrhea, unspecified; R07.9 Chest pain, unspecified; R94.31 Abnormal electrocardiogram [ECG] [EKG]; F12.90 Cannabis use, unspecified, uncomplicated; K59.09 Other constipation; G89.29 Other chronic pain; K21.9 Gastro-esophageal reflux disease without esophagitis; M79.1 Myalgia; N40.0 Benign prostatic hyperplasia without lower urinary tract symptoms; G43.909 Migraine, unspecified, not intractable, without status migrainosus; F32.9 Major depressive disorder, single episode, unspecified; K57.30 Diverticulosis of large intestine without perforation or abscess without bleeding; M19.042 Primary osteoarthritis, left hand; M19.041 Primary osteoarthritis, right hand; F41.1 Generalized anxiety disorder; K44.9 Diaphragmatic hernia without obstruction or gangrene; Z80.3 Family history of malignant neoplasm of breast; Z87.891 Personal history of nicotine dependence; Z86.73 Personal history of transient ischemic attack (TIA), and cerebral infarction without residual deficits; Z79.899 Other long term (current) drug therapy; Z86.19 Personal history of other infectious and parasitic diseases; Z82.49 Family history of ischemic heart disease and other diseases of the circulatory system
CPT/HCPCS: 36415; 71010; 71020; 74000; 74177; 80053; 81001; 82150; 83036; 83605; 83690; 84484; 85025; 87040; 87502; 93005; 93306; 94640; 94760; 96365; 96375; 99285

== ENCOUNTER 2016-11-29 11:10 | Day surgery (SDC) | payer OTHER ==
[2016-11-25 14:41] VITALS: BMI 22.8
[~2016-11-29 11:10] MED LIST: LACTATED RINGERS 1,000 ML IV SCH
[2016-11-29] MEDS ORDERED: LIDOCAINE 1% 20 ML VIAL (10MG/ML) FOR IV START SQ ONE (12:05)
[2016-11-29 12:09] VITALS: RESP 16; TEMP 97.5
[2016-11-29] MEDS ORDERED: LIDOCAINE 1% INJ 10MG/ML (20 ML MDV) ONE (12:55)
[2016-11-29] MEDS ORDERED: PROPOFOL 10 MG/ML 20 ML VIAL IV ONE (12:55)
--- NOTE | 2016-11-29 13:25 | P.PCN ---
Date of Procedure: 11/29/16 Preoperative Diagnosis: Postoperative Diagnosis: Procedure(s) Performed: Procedure: Esophagogastroduodenoscopy and esophageal dilation using the Microvasive hnwpzfc-dkh-erdxh balloon dilators size 15-18 mm. Preoperative diagnosis: Dysphagia, patient has history of esophageal stricture dilated in the past. Postoperative diagnosis: #1 Incomplete distal esophageal stricture just allowing the advancement of the endoscope. #2 Sliding hiatal hernia; #3 Esophageal stricture dilated using the Microvasive hmecfei-fkk-iynur balloon dilators size 15-18 mm. Preparation and sedation: Were provided by anesthesia. Brief clinical history: The patient is a 60-year-old male who I have evaluated regarding dysphagia. He had 2 endoscopies in 2012 whereby he underwent esophageal dilation using an 18 mm balloon and was found to have esophagitis. He has history of reflux for several years. This evaluation is scheduled for further dilation for further dilation. Procedure: With the patient on his left lateral decubitus position and after informed consent and adequate sedation, I passed the Olympus-GIF 160 video upper endoscope through the cricopharyngeus down the esophagus. There was an incomplete stricture at around 37 cm from the incisors corresponding to the GE junction area just allowing the advancement of the endoscope. The distal esophagus did not show any evidence of esophagitis or definite Olmedo's esophagus. There was a sliding hiatal hernia measuring between 2-3 cm. I advanced the endoscope into the stomach and I insufflated the stomach with air and inspected in detail including the retroflex view in the cardia. The stomach did not show any obvious abnormalities. No pyloric channel ulcers. Duodenal bulb, post bulbar area and descending duodenum appeared within normal limits. At this point, I proceeded to dilate the stricture. I advanced the 15- 18 mm Microvasive nwszxey-ism-yjaar balloon dilator through the operating channel of the endoscope centered it, and then inflated it in a stepwise fashion. Adequate dilation was accomplished and there was no immediate complications. The patient tolerated the procedure well. Plan: The patient was reassured. We would keep on clear liquids today then his diet can be advanced tomorrow as tolerated. He will follow-up with you as planned and further plans based on his course. I will keep you updated on his progress. Implants: Indications for Procedure: Operative Findings: Description of Procedure:
[2016-11-29 13:44] VITALS: BP 150/86; PULSE 72
== END 2016-11-29 14:05 | disposition home or self-care (01) ==
LOC: ORWHC2ENDO 11:10
DX: K22.2 Esophageal obstruction (principal); K44.9 Diaphragmatic hernia without obstruction or gangrene; K21.9 Gastro-esophageal reflux disease without esophagitis; Z86.73 Personal history of transient ischemic attack (TIA), and cerebral infarction without residual deficits; I10 Essential (primary) hypertension; M19.90 Unspecified osteoarthritis, unspecified site; J44.9 Chronic obstructive pulmonary disease, unspecified; Z79.899 Other long term (current) drug therapy
CPT/HCPCS: 43249; J2001; J2704; C1726

== ENCOUNTER 2016-11-30 14:14 | Observation (INO) | payer OTHER ==
[2016-11-30] MEDS ORDERED: SODIUM CHLORIDE 0.9% 1,000 ML IV STA (14:35)
[2016-11-30] MEDS ORDERED: ASPIRIN 81 MG CHEW PO STA (14:35)
--- NOTE | 2016-11-30 15:07 | ED ---
General Adult HPI <Ernie Irving - Last Filed: 11/30/16 16:23> - General Source: patient, RN notes reviewed Mode of arrival: wheelchair Limitations: no limitations <Shabnam Solorzano - Last Filed: 11/30/16 16:32> - General Chief complaint: Dizziness Stated complaint: Weakness Time Seen by Provider: 11/30/16 14:30 - History of Present Illness Initial comments: 60-year-old male presents emergency Department chief complaint of lightheadedness. Patient states he had an EGD to stretch his esophagus yesterday. He states today he is feeling very lightheaded. Patient states he feels like that.. Patient states that he does get sweaty with this. Patient states he hasn't had any chest pain or shortness of breath with this. Patient states that he hasn't had any fever or chills. Patient denies any vomiting. Patient states he did eat a bowl of cereal with breakfast this morning. Patient states she was concerned due to his symptoms without that he should be evaluated. Patient denies any recent fever, chills, shortness of breath, chest pain, back pain, abdominal pain, nausea vomiting, numbness or tingling, dysuria or hematuria, constipation or diarrhea, headaches or visual changes, or any other current symptoms. (Shabnam Solorzano) - Related Data Home Medications Medication Instructions Recorded Confirmed Atenolol [Tenormin] 50 mg PO QAM 12/11/13 11/30/16 Cyanocobalamin [Vitamin B-12] 500 mcg PO DAILY 12/11/13 11/30/16 Ferrous Sulfate [Feosol] 325 mg PO DAILY 12/11/13 11/30/16 Isosorbide Mononitrate [Imdur] 30 mg PO QAM 12/11/13 11/30/16 Pantoprazole Sodium [Protonix] 40 mg PO DAILY 12/11/13 11/30/16 busPIRone HCL [Buspar] 15 mg PO BID 12/11/13 11/30/16 Albuterol Sulfate [Ventolin HFA] 2 puff INHALATION RT-Q4H PRN 07/07/16 11/30/16 Allergies Allergy/AdvReac Type Severity Reaction Status Date / Time No Known Allergies Allergy Verified 11/30/16 14:38 Review of Systems ROS Other: All systems not noted in ROS Statement are negative. <AristidesErnie - Last Filed: 11/30/16 16:23> ROS Other: All systems not noted in ROS Statement are negative. <Shabnam Solorzano - Last Filed: 11/30/16 16:32> ROS Statement: Those systems with pertinent positive or pertinent negative responses have been documented in the HPI. Past Medical History Past Medical History: CVA/TIA, GERD/Reflux, Hypertension, Osteoarthritis (OA) Additional Past Medical History / Comment(s): currently having problems eating meat, MIGRAINES, HEART MURMUR, IRREGULAR HEARTBEAT, HIATAL HERNIA, ANEMIA, wound tailbone-healed History of Any Multi-Drug Resistant Organisms: None Reported Past Surgical History: Hernia Repair, Orthopedic Surgery Additional Past Surgical History / Comment(s): RT SHOULDER REPAIR, RT ACHILLES TENDON, HEMORRHOIDS, MULTIPLE FATTY TUMORS. LT INGUINAL HERNIA REPAIR, FINGER REPAIR LT INDEX,EGD WITH DILATION Past Anesthesia/Blood Transfusion Reactions: No Reported Reaction Additional Past Anesthesia/Blood Transfusion Reaction / Comment(s): NO HX BLOOD TRANSFUSION Past Psychological History: Anxiety, Depression Smoking Status: Former smoker - Past Family History Mother Family Medical History: Cancer Additional Family Medical History / Comment(s): BREAST CA Father Additional Family Medical History / Comment(s): BRAIN ANEURYSM <Shabnam Solorzano - Last Filed: 11/30/16 16:32> General Exam <AristidesErnie - Last Filed: 11/30/16 16:23> Limitations: no limitations <Shabnam Solorzano - Last Filed: 11/30/16 16:32> - General Exam Comments Initial Comments: General: The patient is awake and alert, in no distress, and does not appear acutely ill. Eye: Pupils are equal, round and reactive to light, extra-ocular movements are intact; there is normal conjunctiva bilaterally. No signs of icterus. Ears, nose, mouth and throat: There are moist mucous membranes and no oral lesions. Neck: The neck is supple, there is no tenderness. Cardiovascular: There is a regular rate and rhythm. No murmur, rub or gallop is appreciated. Respiratory: Lungs are clear to auscultation, respirations are non-labored, breath sounds are equal. No wheezes, stridor, rales, or rhonchi. Gastrointestinal: Soft, non-distended, non-tender abdomen without masses or organomegaly noted. There is no rebound or guarding present. No CVA tenderness. Bowel sounds are unremarkable. Back: There is no tenderness to palpation in the midline. There is no obvious deformity. No rashes noted. Musculoskeletal: Normal ROM, no tenderness, There is no pedal edema. There is no calf tenderness or swelling. Sensation intact. Pulses equal bilaterally 2+. Neurological: CN II-XII intact, There are no obvious motor or sensory deficits. Coordination appears grossly intact. Speech is normal. Skin: Skin is warm and dry and no rashes or lesions are noted. Psychiatric: Cooperative, appropriate mood & affect, normal judgment. (Shabnam Solorzano) EKG Findings - EKG Comments: EKG Findings:: Marked sinus bradycardia 48 bpm, normal axis, no atopy, no S-T depressions or elevations, <Shabnam Solorzano - Last Filed: 11/30/16 16:32> Medical Decision Making - Lab Data Result diagrams: 11/30/16 15:30 11/30/16 15:30 <Ernie Irving - Last Filed: 11/30/16 16:23> - Lab Data Result diagrams: 11/30/16 15:30 11/30/16 15:30 - Radiology Data Radiology results: report reviewed, image reviewed <Shabnam Solorzano - Last Filed: 11/30/16 16:32> - Medical Decision Making The case was presented to Dr. Grimaldo. Patient will be admitted his service for further evaluation for chest discomfort post EGD dilatation esophagus. Dr. Irving (Ernie Irving) 60-year-old male presents emergency Department chief complaint of lightheadedness. At this time patient's lab work is reviewed as well as his imaging. This does not appear to be in acute finding. The patient's lightheadedness and here he did develop some chest tightness that resolved after he sat down from being lightheaded. Patient will continue hydration and we will do cardiac rule out. This time due to the recent procedure we will hold off on heparin. We discussed this with the patient was given the plan. All questions have been answered. patient will be admitted. (Shabnam Solorzano) - Lab Data Lab Results 11/30/16 11/30/16 11/30/16 Range/Units 15:30 15:30 15:30 WBC 6.1 (3.8-10.6) k/uL RBC 4.46 (4.30-5.90) m/uL Hgb 14.2 (13.0-17.5) gm/dL Hct 42.9 (39.0-53.0) % MCV 96.3 (80.0-100.0) fL MCH 31.8 (25.0-35.0) pg MCHC 33.1 (31.0-37.0) g/dL RDW 13.6 (11.5-15.5) % Plt Count 249 (150-450) k/uL Neutrophils % 67 % Lymphocytes % 22 % Monocytes % 6 % Eosinophils % 2 % Basophils % 1 % Neutrophils # 4.1 (1.3-7.7) k/uL Lymphocytes # 1.3 (1.0-4.8) k/uL Monocytes # 0.4 (0-1.0) k/uL Eosinophils # 0.2 (0-0.7) k/uL Basophils # 0.0 (0-0.2) k/uL PT (9.0-12.0) sec INR (<1.1) APTT (22.0-30.0) sec Sodium 140 (137-145) mmol/L Potassium 4.4 (3.5-5.1) mmol/L Chloride 104 (98-107) mmol/L Carbon Dioxide 25 (22-30) mmol/L Anion Gap 11 mmol/L BUN 15 (9-20) mg/dL Creatinine 0.74 (0.66-1.25) mg/dL Est GFR (MDRD) Af Amer >60 (>60 ml/min/1.73 sqM) Est GFR (MDRD) Non-Af >60 (>60 ml/min/1.73 sqM) Glucose 117 H (74-99) mg/dL Calcium 9.1 (8.4-10.2) mg/dL Magnesium 2.1 (1.6-2.3) mg/dL Total Bilirubin 0.8 (0.2-1.3) mg/dL AST 21 (17-59) U/L ALT 22 (21-72) U/L Alkaline Phosphatase 52 (38-126) U/L Total Creatine Kinase 39 L (55-170) U/L CK-MB (CK-2) 1.1 (0.0-2.4) ng/mL CK-MB (CK-2) Rel Index 2.8 Troponin I <0.012 (0.000-0.034) ng/mL Total Protein 6.2 L (6.3-8.2) g/dL Albumin 3.7 (3.5-5.0) g/dL 11/30/16 Range/Units 15:30 WBC (3.8-10.6) k/uL RBC (4.30-5.90) m/uL Hgb (13.0-17.5) gm/dL Hct (39.0-53.0) % MCV (80.0-100.0) fL MCH (25.0-35.0) pg MCHC (31.0-37.0) g/dL RDW (11.5-15.5) % Plt Count (150-450) k/uL Neutrophils % % Lymphocytes % % Monocytes % % Eosinophils % % Basophils % % Neutrophils # (1.3-7.7) k/uL Lymphocytes # (1.0-4.8) k/uL Monocytes # (0-1.0) k/uL Eosinophils # (0-0.7) k/uL Basophils # (0-0.2) k/uL PT 10.3 (9.0-12.0) sec INR 1.0 (<1.1) APTT 21.6 L (22.0-30.0) sec Sodium (137-145) mmol/L Potassium (3.5-5.1) mmol/L Chloride (98-107) mmol/L Carbon Dioxide (22-30) mmol/L Anion Gap mmol/L BUN (9-20) mg/dL Creatinine (0.66-1.25) mg/dL Est GFR (MDRD) Af Amer (>60 ml/min/1.73 sqM) Est GFR (MDRD) Non-Af (>60 ml/min/1.73 sqM) Glucose (74-99) mg/dL Calcium (8.4-10.2) mg/dL Magnesium (1.6-2.3) mg/dL Total Bilirubin (0.2-1.3) mg/dL AST (17-59) U/L ALT (21-72) U/L Alkaline Phosphatase (38-126) U/L Total Creatine Kinase (55-170) U/L CK-MB (CK-2) (0.0-2.4) ng/mL CK-MB (CK-2) Rel Index Troponin I (0.000-0.034) ng/mL Total Protein (6.3-8.2) g/dL Albumin (3.5-5.0) g/dL Disposition <Ernie Irving - Last Filed: 11/30/16 16:23> Time of Disposition: 16:32 Decision Date: 11/30/16 Decision Time: 16:32 <Shabnam Solorzano - Last Filed: 11/30/16 16:32> Clinical Impression: Lightheadedness, Near syncope, Atypical chest pain Disposition: ADMITTED IP TO THIS [facility] Condition: Stable Referrals: Misael Hopkins MD [Primary Care Provider] - 1-2 days
--- NOTE | 2016-11-30 15:45 | XR ---
EXAMINATION TYPE: XR chest 2V DATE OF EXAM: 11/30/2016 COMPARISON: Prior chest x-ray November 05, 2016 HISTORY: Chest pain, hypertension TECHNIQUE: Frontal and lateral views of the chest are obtained. FINDINGS: There are overlying cardiac leads. Fractured wires at the acromioclavicular joint on the r ight are again seen. No focal pneumonia, pneumothorax, or pleural effusion. Retrocardiac hiatal herni a again noted. Prominent lung volume may be indicative of COPD. Heart size is stable. IMPRESSION: No acute cardiopulmonary process.
[2016-11-30 15:52] LABS: Basophils % (A) 1 %; CH 32.7; CHCM 34.2; Eosinophils # (A) 0.2 k/uL (0-0.7); Eosinophils % (A) 2 %; HCT 42.9 % (39.0-53.0); HDW 2.21; HGB 14.2 gm/dL (13.0-17.5); Luc # (Auto) 0.15; Luc % (Auto) 3; Lymphocytes # (A) 1.3 k/uL (1.0-4.8); Lymphocytes % (A) 22 %; MCH 31.8 pg (25.0-35.0); MCHC 33.1 g/dL (31.0-37.0); MCV 96.3 fL (80.0-100.0); Mean Platelet Volume 8.4; Monocytes # (A) 0.4 k/uL (0-1.0); Monocytes % (A) 6 %; Neutrophils # (A) 4.1 k/uL (1.3-7.7); Neutrophils % (A) 67 %; RBC 4.46 m/uL (4.30-5.90); RDW 13.6 % (11.5-15.5); WBC 6.1 k/uL (3.8-10.6); WBC (Perox) 6.12
[2016-11-30 15:58] LABS: Prothrombin Time 10.3 sec (9.0-12.0)
[2016-11-30 16:04] LABS: ALT 22 U/L (21-72); AST 21 U/L (17-59); Alkaline Phosphatase 52 U/L (38-126); Anion Gap 11 mmol/L; Blood Urea Nitrogen 15 mg/dL (9-20); Calcium 9.1 mg/dL (8.4-10.2); Carbon Dioxide 25 mmol/L (22-30); Chloride 104 mmol/L (98-107); Glucose 117 mg/dL (74-99); Magnesium 2.1 mg/dL (1.6-2.3); Non-African American GFR(MDRD) >60 (>60 ml/min/1.73 sqM); Potassium 4.4 mmol/L (3.5-5.1); Sodium 140 mmol/L (137-145); Total Bilirubin 0.8 mg/dL (0.2-1.3); Total Protein 6.2 g/dL (6.3-8.2)
[2016-11-30 16:07] LABS: Partial Thromboplastin Time 21.6 sec (22.0-30.0)
[2016-11-30 16:13] LABS: Creatine Kinase 39 U/L (55-170)
[2016-11-30 16:26] LABS: Creatine Kinase MB 1.1 ng/mL (0.0-2.4); Troponin I <0.012 ng/mL (0.000-0.034)
[2016-11-30] MEDS ORDERED: NITROGLYCERIN SL TABS 0.4 MG TAB SUBLINGUAL PRN (16:32)
[2016-11-30] MEDS ORDERED: ALBUTEROL NEBULIZED 2.5 MG/3 ML INHALATION PRN (16:34)
[2016-11-30] MEDS ORDERED: SODIUM CHLORIDE 0.9% 1,000 ML IV SCH (16:45)
[2016-11-30 18:35] VITALS: BMI 22.8
[2016-11-30] MEDS: busPIRone HCl 5 MG TAB PO SCH (20:08)
[2016-11-30] MEDS ORDERED: FLUTICASONE 50MCG/SPRAY NASAL 16GM EA NOSTRIL SCH (22:30)
[2016-11-30] MEDS ORDERED: LORATADINE 10 MG TAB PO SCH (22:30)
[2016-11-30 22:42] LABS: Creatine Kinase 31 U/L (55-170)
[2016-11-30 22:54] LABS: Troponin I <0.012 ng/mL (0.000-0.034)
[2016-12-01 04:51] LABS: Cholesterol 134 mg/dL (<200); HDL Cholesterol 35 mg/dL (40-60); Triglycerides 128 mg/dL (<150)
[2016-12-01 04:52] LABS: Creatine Kinase 30 U/L (55-170)
[2016-12-01 05:05] LABS: Troponin I <0.012 ng/mL (0.000-0.034)
[2016-12-01] MEDS ORDERED: PANTOPRAZOLE 40 MG TABLET PO SCH (07:30)
[2016-12-01] MEDS ORDERED: ATENOLOL 50 MG TAB PO SCH (09:00)
[2016-12-01] MEDS ORDERED: ASPIRIN 325 MG TAB PO SCH (09:00)
[2016-12-01] MEDS ORDERED: ISOSORBIDE MONONITRATE ER 30 MG TAB.ER.24H PO SCH (09:00)
[2016-12-01] MEDS ORDERED: FERROUS SULFATE 325 MG TAB PO SCH (09:00)
[2016-12-01] MEDS ORDERED: CYANOCOBALAMIN 500 MCG TAB PO SCH (09:00)
[2016-12-01 11:11] VITALS: BP 144/83; PULSE 54
[2016-12-01 12:28] VITALS: RESP 19; TEMP 98.1
[2016-12-01] MEDS: busPIRone HCl 5 MG TAB PO SCH (14:40)
--- NOTE | 2016-12-03 13:08 | CONS ---
Mr. Alex is a 60 year old gentleman who is seen for cardiac evaluation. This patient gives a history that the day before yesterday, he had an EGD and dilatation of the esophagus and yesterday he felt very lightheaded. He felt sweaty. He did not have any chest pain. He did not have any shortness of breath. The patient came to the emergency room. The orthostatics is negative. The patient has history of atypical angina. The patient was admitted in July. At that time, his echocardiogram was normal. The patient was subsequently seen by Dr. Odell in the office and probably had a stress test which was normal. The patient denies any history of exertional chest discomfort. Past medical history includes history of hypertension, GERD reflux, history for TIA and osteoarthritis. The patient's home medications include: 1. Imdur once a day. 2. Protonix. 3. BuSpar. 4. Ventolin. 5. Fioresal. PAST MEDICAL HISTORY: Includes history of hiatal hernia, migraines, orthopedic surgery, hernia repair. PHYSICAL EXAMINATION: At present reveals blood pressure 140/89 mmHg. Heart rate is 55 per minute. HEENT examination is negative. Neck is supple. There is no increase in jugular venous pressure. Both the carotid pulses are felt. There is no bruit. Chest is symmetrical. Heart: The PMI is not felt. first and second heart sounds are normal. There is no evidence of any murmur. Lungs are clinically clear to auscultation and percussion. Abdomen is soft, liver and spleen are not enlarged. Bowel sounds are heard. Extremities: peripheral pulsations are 2+. EKG shows normal sinus rhythm without any acute ischemic changes. The patient's three troponins are normal. FINAL IMPRESSION: This patient had an episode of dizziness and lightheadedness most likely vasovagal syncope. At present, there is no evidence of any significant orthostatic hypotension. We will recheck orthostatics and if it is normal, the patient can be discharged home. [facility]
--- NOTE | 2016-12-04 08:10 | HP ---
This dictation is both H&P and discharge summary. The patient is a 60-year-old pleasant gentleman who came in with complaints of lightheadedness that has been going on for a couple of days. The patient is found to be in severe sinus bradycardia and patient is on atenolol. Patient's blood pressure is on the low normal side as well. Patient received IV fluids ( ) symptoms and patient got sweaty. Patient denied any chest pain. Patient denied any fever or chills. Patient denied any dysuria. Patient does not have any other signs or symptoms of sepsis. Patient has esophageal dilatation procedure a couple days ago. Because of which the patient has not been eating as well either. Patient was monitored since last night and I do not believe patient will need echocardiogram. Patient will be discharged and atenolol will be discontinued because of severe sinus bradycardia. Patient is allowed to work and patient was requested not to do any heavy lifting and watch for any syncopal episodes and not to be in any situation where syncopal episode would put him at a higher risk. Patient was asked to check the blood pressure, appropriately measuring the blood pressure was counseled and patient will follow with Dr. Misael Hopkins as an outpatient. REVIEW OF SYSTEMS: ( ) CARDIOVASCULAR: As described in HPI, which is lightheadedness and patient did not have any syncopal episode. Home medications include atenolol, cyanocobalamin, ferrous sulfate, isosorbide mononitrate, Protonix, Risperidone, albuterol, ( ). ALLERGIES: No known drug allergies. PAST MEDICAL HISTORY: Significant for TIA, gastroesophageal reflux disease, hypertension, osteoarthritis, hernia repair, orthopedic surgery, shoulder replacement surgery, sinus surgery, hemorrhoidal surgery. Anxiety and depression. SOCIAL HISTORY: Former smoker. Denied any alcohol abuse or any drug abuse. Quit smoking in 1999 and occasional use of marijuana. FAMILY HISTORY: Mother had breast cancer and father had brain aneurysm. PHYSICAL EXAMINATION: VITAL SIGNS: Temperature 97.7, pulse of 50, it has gone down as far as 46, which is severe sinus bradycardia and blood pressure remained mostly in the lower normal side. The patient has positive orthostatic vitals. Received IV fluids. ( ) Chest x-ray did not show any pneumonic process. ASSESSMENT AND PLAN: 1. Dizziness and near syncopal episode probably related to atenolol and patient has extremely low heart rate, sinus bradycardia-like with low normal blood pressure with positive orthostatic vitals. patient receive IV fluids and atenolol will be discontinued. Patient will follow with primary care physician as an outpatient. 2. Recent esophageal dilatation procedure. I do not believe vagal stimulation from the dilatation procedure contributed to these symptoms. 3. Hypertension. Patient's blood pressure is actually on the low normal side and will discontinue atenolol. Patient was asked to check the blood pressure at home and take it to the primary care physician so that it will help Dr. Hopkins to start an antihypertensive medication if needed. Although my suspicion is low that patient does not have essential hypertension anymore. 4. History of transient ischemic attack, cerebrovascular attack. Continue with antiplatelet therapy. 5. Gastroesophageal reflux disease. 6. Osteoarthritis for which he continues his home medications. [facility]
== END 2016-12-01 14:37 | disposition home or self-care (01) ==
LOC: EC 14:14 → 3OBS 16:24
PROVIDERS: ADMIT Internal Medicine; ATTEND Internal Medicine
DX: R42 Dizziness and giddiness (principal); R55 Syncope and collapse; R61 Generalized hyperhidrosis; R00.1 Bradycardia, unspecified; I10 Essential (primary) hypertension; Z79.899 Other long term (current) drug therapy; Z86.73 Personal history of transient ischemic attack (TIA), and cerebral infarction without residual deficits; K21.9 Gastro-esophageal reflux disease without esophagitis; M19.90 Unspecified osteoarthritis, unspecified site; D64.9 Anemia, unspecified; F41.9 Anxiety disorder, unspecified; Z87.891 Personal history of nicotine dependence; Z80.3 Family history of malignant neoplasm of breast
CPT/HCPCS: 99285; 36415; 94760; 93005; 80061; 80053; 82550 ×2; 82553 ×2; 83735; 84484 ×2; 85025; 85610; 85730; 71020; G0378 ×2

== ENCOUNTER 2017-12-18 10:50 | Day surgery (SDC) | payer OTHER ==
[2017-12-13 14:20] VITALS: BMI 21.2
[~2017-12-18 10:50] MED LIST changes: +HYDROmorphone 0.5 MG/0.5 ML SYRINGE IVP PRN; +LIDOCAINE 1% 20 ML VIAL (10MG/ML) FOR IV START INTRADERMA PRN; +ONDANSETRON 4 MG/2 ML VIAL IVP ONE; +ceFAZolin IN SWFI 2 GM/20 ML SYRINGE IVP ONE
[2017-12-18] MEDS ORDERED: DEXAMETHASONE SOD PHOS (MDV) 100 MG/10 ML VIAL IVP ONE (11:20)
[2017-12-18] MEDS ORDERED: MIDAZOLAM 2 MG/2 ML VIAL ONE ×2 (11:36→12:48)
[2017-12-18] MEDS ORDERED: fentaNYL (PF) 50 MCG/ML 2 ML AMP ONE ×2 (11:45→12:48)
[2017-12-18] MEDS ORDERED: MIDAZOLAM 2 MG/2 ML VIAL IVP ONE (12:10)
--- NOTE | 2017-12-18 12:23 | P.ONQ ---
Anesthesiology Proc Note - PNB - Peripheral Nerve Block Performed Left Popliteal Single Time Out Performed: Yes (3310) Procedure Start Time: 12:10 Procedure Stop Time: 12:20 Indication: Acute Post-Operative Pain, Dx/Pain Location (Left Ankle Pain), Requested by physician Sedation Type: Sedate with meaningful contact maintained Preparation: Sterile Prep Position: Supine Catheter: None Needle Types: Touhy Needle Size: 50mm (2") Needle Gauge: 21 Technique: Ultrasound Injectate: Other (see comment) (30ml 0.375% Ropivacaine.) Blood Aspirated: No Pain Paresthesia on Injection Noted: No Resistance on Injection: Normal Events: Uneventful and Well Tolerated
[2017-12-18] MEDS ORDERED: SUCCINYLCHOLINE CHLORIDE 100 MG/5 ML SYR IV ONE (12:48)
[2017-12-18] MEDS ORDERED: LIDOCAINE 1% INJ 10MG/ML (20 ML MDV) ONE (12:48)
[2017-12-18] MEDS ORDERED: PROPOFOL 10 MG/ML 20 ML VIAL IV ONE (12:48)
[2017-12-18 14:05] VITALS: TEMP 96.9
[2017-12-18] MEDS ORDERED: ONDANSETRON 4 MG/2 ML VIAL IVP PRN (14:06)
[2017-12-18] MEDS ORDERED: HYDROcodone/APAP 5-325MG 1 EACH TAB PO PRN ×2 (14:06)
[2017-12-18] MEDS ORDERED: HYDROmorphone 1 MG/ML 1 ML SYRINGE IVP PRN (14:06)
[2017-12-18] MEDS ORDERED: HYDROmorphone 0.5 MG/0.5 ML SYRINGE IVP PRN ×2 (14:06)
[2017-12-18] MEDS ORDERED: LACTATED RINGERS 1,000 ML IV ONE (14:13)
[2017-12-18 14:15] VITALS: RESP 16
[2017-12-18] MEDS ORDERED: LACTATED RINGERS 1,000 ML IV SCH (14:15)
--- NOTE | 2017-12-18 14:20 | P.OP ---
Date of Procedure: 12/18/17 Preoperative Diagnosis: 1. Left non-insertional Achilles tendinitis 2. Left gastrocnemius contracture Postoperative Diagnosis: Same Procedure(s) Performed: 1. Left Achilles tendon debridement 2. Left gastrocnemius recession Anesthesia: CHANCE, regional Surgeon: Jason Nelson Estimated Blood Loss (ml): 5 IV fluids (ml): 600 Pathology: none sent Condition: stable Disposition: PACU Indications for Procedure: The patient is a 62-year-old male with a long-standing history of problems with his left Achilles tendon. He is been managed non-operatively initially for Achilles tendinitis. He had fusiform swelling and thickening within the mid substance of the Achilles tendon. He had an MRI which confirmed non- insertional Achilles tendinitis. He was treated nonoperatively with stretching , eccentric strengthening exercises, immobilization in a boot, physical therapy , activity modification, oral anti-inflammatory pain medications, all with diminishing relief. He requested surgery. I recommended releasing his tight calf muscle with a gastrocnemius recession and debriding the Achilles tendon. If over 50% of the cross-sectional area of the Achilles tendon was debrided the patient was instructed that he may need an FHL tendon transfer. We discussed potential risks and complications of surgery including but not limited to risk of anesthesia, superficial infection, deep infection, delayed wound healing, superficial wound necrosis, damage to local blood vessels or nerves, risk of tendon rupture, risk of continued pain, risk of swelling, risk of DVT, risk of PE, generalized to satisfaction of surgery, and possibly loss of life or limb. The patient voiced his understanding of this particularly the potential for continued pain. He provided his verbal and written consent to go forward with surgery. Description of Procedure: The patient was identified in preop holding and the correct left leg was marked with my initials. I reviewed the consent form with the patient and his daughter and all of their questions were answered. The patient was given a popliteal nerve block by anesthesia. The patient was then brought back to the operating room. A general anesthetic and preoperative antibiotics were administered well the patient was on the [facility]. He was then flipped into the prone position on the OR table. Bolsters were placed under his chest. His arms were placed in a safe position. All bony prominences were well- padded. The left leg was then prepped and draped in the standard sterile fashion. Prior to starting surgery timeout was performed identifying the correct patient, operative extremity, and procedure. The patient's leg was then elevated, exsanguinated with an Esmarch bandage, and the tourniquet was inflated to 250 mmHg. I began by performing a gastrocnemius recession. A longitudinal incision was marked out 1 thumb breadth posterior to the tibia just medial to the distal muscle belly of the medial gastrocnemius. Incision was made with a scalpel and dissection was carried down carefully to the subcu tissues tissue with tenotomy scissors. The superficial fascia was identified and incised longitudinally in line with the skin incision. I bluntly developed the interval between the gastrocnemius aponeurosis and superficial fascia. The sural nerve was seen to be adherent to the superficial fascia. I then sharply released the gastrocnemius aponeurosis from lateral to medial in its entirety. The plantaris tendon was identified and a 1 cm section was removed. The wound was then copiously irrigated and closed in layers. Attention was then turned to the Achilles tendon. A several centimeter longitudinal incision was marked out over the posteromedial aspect of the Achilles centered over the area of fusiform swelling. Skin incision was made a scalpel and dissection was carried down carefully to the subcutaneous tissue with the scalpel taking care not to undermine the skin incision. Full- thickness flaps were taken down to the level of the peritenon which was incised longitudinally in line with the skin incision. The Achilles tendon was incised longitudinally on the midline. Nonviable-appearing tendon tissue was sharply debrided until healthy-appearing tendon remained. The wound was copiously irrigated. In my estimation greater than 50% of the cross sectional diameter of the tendon remained so I elected to not perform an FHL tendon transfer. The wound was then once again copiously irrigated. The split in the Achilles tendon was closed with a running 2-0 Ethibond stitch. The peritenon was closed with a running 3-0 Monocryl. The skin was closed with 3-0 Monocryl for the subcu and 3-0 nylon horizontal mattress stitches for the skin. I verified that all instrument, sponge, and sharp counts were correct. Sterile dressing consisting of Betadine soaked Adaptic, 4 x 4, and web roll was applied. The patient had an Heber wrap placed over his leg and was then placed in a tall boot. He was brought to PACU having tolerated the procedure well. Plan: The patient is going to discharge home as an outpatient. He is to remain strictly nonweightbearing on his operative extremity until his block wears off. Once his block wears off the patient can weight-bear as tolerated. He is to wear the boot at all times except for hygiene.
[2017-12-18 15:29] VITALS: BP 155/93; PULSE 87
== END 2017-12-18 16:06 | disposition home or self-care (01) ==
LOC: OR 10:50
PROVIDERS: ATTEND Orthopaedic Surgery
DX: M76.62 Achilles tendinitis, left leg (principal); M62.462 Contracture of muscle, left lower leg
CPT/HCPCS: 27687; 27606; J2250; J2405; J2001; J3010; J1100; J0330; J2704; J0690

== ENCOUNTER 2018-08-24 06:10 | Day surgery (SDC) | payer OTHER ==
[2018-08-20 09:16] VITALS: BMI 22.8
[2018-08-24] MEDS ORDERED: ALPRAZolam 0.5 MG TAB PO PRN (06:18)
[2018-08-24] MEDS ORDERED: ALPRAZolam 0.25 MG TAB PO PRN (06:18)
[2018-08-24] MEDS ORDERED: SODIUM CHLORIDE 0.9% 1,000 ML in EMPTY BAG 1 BAG IV ONE (06:18)
[2018-08-24] MEDS ORDERED: NITROGLYCERIN SL TABS 0.4 MG TAB SUBLINGUAL PRN (06:18)
[2018-08-24] MEDS ORDERED: ASPIRIN 325 MG TAB PO ONE (07:00)
[2018-08-24] MEDS ORDERED: ATORVASTATIN 80 MG TAB PO ONE (07:00)
[2018-08-24 07:03] VITALS: TEMP 98.1
[2018-08-24] MEDS ORDERED: LIDOCAINE 1% INJ 10MG/ML (20 ML MDV) ONE (07:21)
[2018-08-24] MEDS ORDERED: HEPARIN SODIUM 1,000 UN/ML (10ML VL) ONE (07:21)
[2018-08-24] MEDS ORDERED: VERAPAMIL 2.5 MG/ML 2 ML AMP ONE (07:21)
[2018-08-24] MEDS ORDERED: MIDAZOLAM 2 MG/2 ML VIAL IVP ONE (07:45)
[2018-08-24] MEDS ORDERED: LIDOCAINE 1% INJ 10MG/ML (20 ML MDV) SQ ONE (07:47)
[2018-08-24] MEDS: VERAPAMIL SYRINGE (5 MG/10 ML) INTRAARTER ONE ×2 (07:48→07:56)
[2018-08-24] MEDS ORDERED: HEPARIN SODIUM 1,000 UN/ML (10ML VL) IV ONE (07:50)
[2018-08-24] MEDS ORDERED: IOPAMIDOL-370 125ML BTL INJ ONE (07:55)
[2018-08-24] MEDS ORDERED: RX INFO: IV CONTRAST WAS GIVEN 1 EACH MISC MISCELLANE PRN (08:03)
[2018-08-24] MEDS ORDERED: SODIUM CHLORIDE 0.9% 1,000 ML IV SCH (08:15)
--- NOTE | 2018-08-24 08:26 | LTR ---
August 24, 2018 Re: Finn Alex Dear Dr. Hopkins: Mr. Finn Alex underwent heart catheterization today and that revealed normal coronaries. He was experiencing chest discomfort and he underwent myocardial perfusion imaging stress test and that revealed ischemia and because of that, a heart catheterization was performed. I want to thank you for allowing me to participate in his care and please do not hesitate to call if you have any question or concern. Sincerely, MD SALMA Sellers / [place]: [id number] /
--- NOTE | 2018-08-24 08:32 | CC ---
CARDIAC CATHETERIZATION REPORT DATE OF SERVICE: August 24, 2018 PERFORMING PHYSICIAN: Antwon Mckeon MD, distributor publications. PROCEDURE PERFORMED: 1. Selective right and left coronary angiogram. 2. Left heart catheterization. INDICATION: This is a 62-year-old gentleman with hypertension who was experiencing symptoms of chest discomfort and underwent myocardial perfusion imaging stress test and that revealed inferior ischemia. Because of that, a heart catheterization was advised. APPROACH: Right radial artery. COMPLICATION: None. LEVEL OF SEDATION: Moderate with sedation length of 12 minutes. PROCEDURE DESCRIPTION: After obtaining an informed consent, the patient was brought to cardiac chemistry laboratory technician. Right radial artery was cannulated using micropuncture technique, the micropuncture wire passed easily then I placed a 5-Danish sheath in the right radial artery. I did give the patient 2 mg of verapamil IA and 6000 units of heparin IV. After that, I did selective right and left coronary angiogram using JR4 and JL3.5 catheters. Left heart catheterization was performed using the JR4 catheter which crossed the aortic valve. Then I did pullback across aortic valve after flushing the catheter. The procedure was completed without any complication. SELECTIVE CORONARY ANGIOGRAM: 1. The right coronary artery is a large caliber vessel and it is a dominant vessel. The RCA in the proximal portion appeared to be tortuous, but angiographically normal. The mid RCA appeared to be normal and RCA distally appeared to be tortuous and angiographically normal. It bifurcates into PDA and PLV branches both are angiographically normal. 2. The left main is angiographically normal. It bifurcates into left circumflex and left anterior descending artery. 3. The left circumflex is a large caliber vessel and nondominant vessel. The proximal circumflex is normal and gives rise into first OM branch which appeared to be angiographically normal. The circumflex continued after that as a medium caliber vessel. 4. The LAD: The proximal LAD appeared to be angiographically normal. The mid LAD and distal LAD are angiographically normal as well. The LAD gives rise into multiple diagonal branches they appear to be angiographically normal. HEMODYNAMICS: The left ventricular end-diastolic pressure was 8 mmHg without significant gradient across the aortic valve. CONCLUSION: 1. Normal coronary angiogram. 2. Normal left ventricular end-diastolic pressure. POSTPROCEDURE MANAGEMENT: 1. Medical treatment. 2. Follow up with the patient. MMODL / IJN: [id number] /
[2018-08-24 08:55] VITALS: RESP 16
[2018-08-24 10:00] VITALS: BP 129/78; PULSE 70
[2018-08-24] MEDS ORDERED: ACETAMINOPHEN TAB 325 MG TAB ONE (10:21)
== END 2018-08-24 12:57 | disposition home or self-care (01) ==
LOC: CATHCVL 06:10
PROVIDERS: ATTEND Internal Medicine Interventional Cardiology
DX: I20.0 Unstable angina (principal); R94.39 Abnormal result of other cardiovascular function study; I10 Essential (primary) hypertension; Z87.891 Personal history of nicotine dependence; R01.1 Cardiac murmur, unspecified; Z79.899 Other long term (current) drug therapy
CPT/HCPCS: 93458; C1769; C1894; J2250; J2001; J1644; Q9967

== ENCOUNTER 2018-12-13 09:46 | Day surgery (SDC) | payer OTHER ==
[2018-12-11 12:27] VITALS: BMI 22.0
[~2018-12-13 09:46] MED LIST changes: -HYDROmorphone 0.5 MG/0.5 ML SYRINGE IVP PRN; -ONDANSETRON 4 MG/2 ML VIAL IVP ONE; -ceFAZolin IN SWFI 2 GM/20 ML SYRINGE IVP ONE
[2018-12-13 10:08] VITALS: TEMP 97.7
[2018-12-13] MEDS ORDERED: PROPOFOL 10 MG/ML 20 ML VIAL IV ONE (10:17)
[2018-12-13] MEDS ORDERED: LIDOCAINE 1% INJ 10MG/ML (20 ML MDV) ONE (10:17)
[2018-12-13] MEDS ORDERED: ONDANSETRON 4 MG/2 ML VIAL ONE (10:17)
--- NOTE | 2018-12-13 11:58 | P.PCN ---
Date of Procedure: 12/13/18 Description of Procedure: Brief history: Patient is a pleasant scheduled for an elective upper endoscopy as well as colonoscopy as a part of evaluation of esophageal dysphagia and screening for malignant neoplasm of the colon. The patient was seen in clinic where he reported solid food esophageal dysphagia and uncontrolled reflux. At that time was taking 6-12 Pepcid daily. Reported history of esophageal stricture treated with bytiwli-ped-gjhku balloon dilation with sequential 15-18 mm dilation in 11/2016. He reported unintentional weight loss secondary to decreased oral intake. At that time he was told to avoid foods such as chicken, steak and breads, take small bites of food, chop his food into small pieces and take sips of water between foods. He was also started on omeprazole 20 mg twice daily, however has failed to initiate this therapy as was instructed. Patient was scheduled for an EGD with dilation. Also scheduled for a colonoscopy as he denies any history of polyps or family history of colonoscopy and was unsure of last colonoscopy. Procedure performed: Esophagogastroduodenoscopy with biopsy and aggxcqc-noa-ffcys esophageal dilation Colonoscopy with Estimated blood loss: Minimal. Preoperative diagnosis: Esophageal dysphagia, history of esophageal dilation, unintentional weight loss, screening for malignant neoplasm of the colon, unsure of Colonoscopy Anesthesia: MAC Procedure: After informed consent was obtained from the patient was brought into the endoscopy unit and IV sedation was administered by anesthesia under continuous monitoring. Initially upper endoscopy was done. The Olympus GF 190 video endoscope was inserted inserted into the mouth and esophagus intubated without any difficulty and was gradually advanced into the stomach and duodenum and carefully examined. The bulb and second part of the duodenum appeared normal, w ith biopsies taken. The scope was then withdrawn into the stomach adequately insufflated with air and upon careful examination the antrum and body, cardia and fundus appeared normal except for some linear erythema and erosions in the antrum and body suggestive of moderate gastritis with biopsies taken. The scope was then withdrawn into the esophagus. 6 cm hiatal hernia noted.. The GE junction was located at 36 cm to the incisors, and appeared irregular suggestive of Olmedo's esophagus with biopsies taken. Benign-appearing distal esophageal stricture dilated sequentially with ggigcyc-njz-chdqc balloon dilation to 8-0-18-11-12 mm. Patient tolerated the procedure well. At this time the patient continued to remain sedation. Initial digital rectal examination was normal. Olympus CF 190 video colonoscope was then inserted into the rectum and gradually advanced to the cecum without any difficulty. Careful examination was performed as the scope was gradually being withdrawn. The prep was good. The cecum, ascending colon, transverse colon, descending colon, sigmoid colon and rectum appeared normal. 2 diminutive cecal polyps measuring 2 mm in size were removed with cold forcep polypectomy. Mild scattered sigmoid diverticulosis. Mild internal hemorrhoids. Retroflexion was performed in the rectum and no lesions were noted. Patient tolerated the procedure well. Impression: 1. Moderate gastritis antrum and body, biopsied. Duodenal biopsies. 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 Benign- appearing distal esophageal stricture dilated with srqypca-ksp-wisgk balloon dilation. Large hiatal hernia. 2. Cecal polypectomy, mild scattered sigmoid diverticulosis, mild internal hemorrhoids. Recommendations: Findings of this examination were discussed with the patient. Okay to resume diet. Continue dysphagia diet. Again have discussed the need to start PPI therapy given findings on EGD. Would pathology from biopsies. Would recommend repeat EGD with dilation in 1 month with jwtqmsq-rhx-esrcz balloon dilator to sizes of 1213.5. Follow-up as previously scheduled.
[2018-12-13 12:06] VITALS: BP 152/89; PULSE 46; RESP 18
== END 2018-12-13 13:26 | disposition home or self-care (01) ==
LOC: ORWHC2ENDO 09:46
PROVIDERS: ATTEND Internal Medicine
DX: K22.2 Esophageal obstruction (principal); K44.9 Diaphragmatic hernia without obstruction or gangrene; K29.50 Unspecified chronic gastritis without bleeding; K21.0 Gastro-esophageal reflux disease with esophagitis; Z12.11 Encounter for screening for malignant neoplasm of colon; D12.0 Benign neoplasm of cecum; K57.30 Diverticulosis of large intestine without perforation or abscess without bleeding; K64.8 Other hemorrhoids; R63.4 Abnormal weight loss; I25.10 Atherosclerotic heart disease of native coronary artery without angina pectoris; Z95.1 Presence of aortocoronary bypass graft; I10 Essential (primary) hypertension; J44.9 Chronic obstructive pulmonary disease, unspecified; Z86.73 Personal history of transient ischemic attack (TIA), and cerebral infarction without residual deficits; F17.200 Nicotine dependence, unspecified, uncomplicated; Z79.82 Long term (current) use of aspirin; Z79.899 Other long term (current) drug therapy
CPT/HCPCS: 43249; 43239; 45380; 88305; J2405; J2001; J2704; C1726 ×2

== ENCOUNTER 2020-08-06 14:26 | Observation (INO) | payer OTHER ==
[2020-08-06 14:31] VITALS: RESP 18
[2020-08-06] MEDS ORDERED: ASPIRIN 81 MG PO STA (14:43)
--- NOTE | 2020-08-06 14:47 | ED ---
Chest Pain HPI - General Chief Complaint: Chest Pain Stated Complaint: Chest pain Time Seen by Provider: 08/06/20 14:36 Source: patient Mode of arrival: ambulatory Limitations: no limitations - History of Present Illness Initial Comments: 64-year-old male history of hypertension, dyslipidemia, CVA, previous smoker, hx CAD presented to the ER today for chief complaint of chest discomfort on and off 3 days. Patient states the past 3 days he has on and off chest discomfort he states it is a pressure he states he at times has tingling in both his hands he denies any unilateral paresthesias. He denies having present currently. He denies new weakness or sensation loss of the upper or lower extremities he denies facial asymmetry headache nausea vomiting or abdominal pain. Patient denies any arm pain but states he does have some right-sided jaw discomfort on and off. Patient denies any sharp tearing pains he denies any sharp pains with deep inspiration he denies hemoptysis leg swelling history of DVT pulmonary embolism he denies recent immobilization/travel/surgeries. Patient states that today he went to his primary care provider's office to discuss his ongoing symptoms and he was sent to the emergency department for further evaluation and treatment. Patient states he doesn't really have very much chest discomfort this time he had rated around a 2-3 out of 10. Remaining review of system negative - Related Data Home Medications Medication Instructions Recorded Confirmed Aspirin 81 mg PO DAILY 08/20/18 08/06/20 Metoprolol Tartrate [Lopressor] 12.5 mg PO BID 08/20/18 08/06/20 Albuterol Sulfate [Proair Hfa] 2 puff INHALATION RT-Q6H PRN 08/06/20 08/06/20 Omeprazole 20 mg PO BID 08/06/20 08/06/20 Pravastatin Sodium [Pravachol] 20 mg PO DAILY 08/06/20 08/06/20 lisinopriL [Zestril] 10 mg PO DAILY 08/06/20 08/06/20 Allergies Allergy/AdvReac Type Severity Reaction Status Date / Time No Known Allergies Allergy Verified 08/06/20 15:48 Review of Systems ROS Statement: Those systems with pertinent positive or pertinent negative responses have been documented in the HPI. ROS Other: All systems not noted in ROS Statement are negative. EKG Findings - EKG Comments: EKG Findings:: Ventricular rate 53 bpm, RI interval 128 ms, QR striction 90 ms, QT/QTC 418/392 ms. This is sinus bradycardia. There is some early re polarization characteristic noted. I did review this with my attending provider Dr Henderson. Past Medical History Past Medical History: Asthma, Coronary Artery Disease (CAD), Chest Pain / Angina, CVA/TIA, GERD/Reflux, Hypertension, Pneumonia, Rheumatoid Arthritis (RA) Additional Past Medical History / Comment(s): MIGRAINES, HEART MURMUR, hx HIATAL HERNIA, ANEMIA, one dr told him he had a stroke at one time-no effects, varicose veins History of Any Multi-Drug Resistant Organisms: None Reported Past Surgical History: Heart Catheterization, Hernia Repair, Orthopedic Surgery Additional Past Surgical History / Comment(s): Lt achilles tendon,RT SHOULDER surgery, RT ACHILLES TENDON reattached, HEMORRHOIDECTOMY, 13 FATTY TUMORS removed. 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 Eye: +3 mm pupils are equal, round and reactive to light, extra-ocular movements are intact. No nystagmus. There is normal conjunctiva bilaterally. No signs of icterus. Ears, nose, mouth and throat: There are moist mucous membranes and no oral lesions. Neck: The neck is supple, there is no tenderness or JVD. Cardiovascular: There is a regular rate and rhythm. No murmur, rub or gallop is appreciated. Respiratory: Lungs are clear to auscultation, respirations are non-labored, breath sounds are equal. No wheezes, stridor, rales, or rhonchi. Gastrointestinal: Soft, non-distended, non-tender abdomen without masses or organomegaly noted. There is no rebound or guarding present. Musculoskeletal: Normal ROM, no tenderness. Strength 5/5. Sensation intact. Radial and DP pulses equal bilaterally 2+. Neurological: A&O x 3. CN II-XII intact grossly, There are no obvious motor or sensory deficits. Coordination appears grossly intact. Speech is normal. Skin: Skin is warm and dry and no rashes or lesions are noted. No LE edema, calf pain or swelling. Psychiatric: Cooperative, appropriate mood & affect, normal judgment. Limitations: no limitations Course Vital Signs 08/06/20 14:27 Temperature 97.5 F L Pulse Rate 60 Respiratory 18 Rate Blood Pressure 173/95 O2 Sat by Pulse 99 Oximetry Chest Pain MDM - MDM 64-year-old male presenting today for 3 days of on and off chest discomfort. It is not pleuritic no hemoptysis no leg swelling or calf pain. Patient describes it as a pressure. Patient has possible history of CAD as he statse he believes he has "been cleared out before" when discussing his coronary arteries. He denies CABG. Denies known [place]. Significant risk factors. Patient initialy troponin (-). Patient will be admitted for serial troponins and further cardiology evaluation. patient resting comfortably on re-evaluation and is agreeable to admission and care plan. Dr Henderson is agreeable to this adm ission/care plan--Case also discussed with accepting admitting in the ER Dr. Bowie who will evaluate the patient. Disposition Clinical Impression: Chest discomfort, Dyspnea Disposition: ADMITTED IP TO THIS HOSP Condition: Stable Is patient prescribed a controlled substance at d/c from ED?: No Referrals: Misael Hopkins MD [Primary Care Provider] - 1-2 days Time of Disposition: 15:51 Decision to Admit Reason: Admit from EC Decision Date: 08/06/20 Decision Time: 15:51
[2020-08-06 14:59] LABS: Basophils % (A) 0 %; Eosinophils # (A) 0.1 k/uL (0-0.7); Eosinophils % (A) 1 %; HCT 45.2 % (39.0-53.0); HGB 15.4 gm/dL (13.0-17.5); Lymphocytes % (A) 21 %; MCH 31.6 pg (25.0-35.0); MCHC 34.1 g/dL (31.0-37.0); MCV 92.7 fL (80.0-100.0); Mean Platelet Volume 8.5; Monocytes # (A) 0.7 k/uL (0-1.0); Monocytes % (A) 8 %; Neutrophils # (A) 6.3 k/uL (1.3-7.7); Neutrophils % (A) 68 %; Platelet Count 271 k/uL (150-450); RBC 4.88 m/uL (4.30-5.90); RDW 12.8 % (11.5-15.5); WBC 9.3 k/uL (3.8-10.6)
[2020-08-06 15:07] LABS: INR 0.9 (<1.2); Partial Thromboplastin Time 23.3 sec (22.0-30.0)
--- NOTE | 2020-08-06 15:13 | XR ---
EXAMINATION TYPE: XR chest 2V DATE OF EXAM: 08/06/2020 COMPARISON: Chest x-ray 11/30/2016 HISTORY: Chest pain and shortness of breath TECHNIQUE: Frontal and lateral views of the chest are obtained. FINDINGS: There is no focal air space opacity, pleural effusion, or pneumothorax seen. The cardiac silhouette size is within normal limits. Retrocardiac density with central lucency is consistent with underlying hiatal hernia with partial intrathoracic stomach. There are overlying leads. Thoracic spo ndylosis is present. The osseous structures are intact. IMPRESSION: No acute cardiopulmonary process.
[2020-08-06 15:14] LABS: ALT 21 U/L (4-49); AST 30 U/L (17-59); African American GFR (CKD) >90 (>60 ml/min/1.73 sqM); Albumin 4.8 g/dL (3.5-5.0); Alkaline Phosphatase 69 U/L (38-126); Anion Gap 11 mmol/L; Blood Urea Nitrogen 22 mg/dL (9-20); Calcium 9.9 mg/dL (8.4-10.2); Carbon Dioxide 27 mmol/L (22-30); Chloride 100 mmol/L (98-107); Glucose 96 mg/dL (74-99); Magnesium 2.4 mg/dL (1.6-2.3); Non-African American GFR(CKD) 86 (>60 ml/min/1.73 sqM); Potassium 4.6 mmol/L (3.5-5.1); Sodium 138 mmol/L (137-145); Total Bilirubin 0.7 mg/dL (0.2-1.3); Total Protein 7.6 g/dL (6.3-8.2)
[2020-08-06] MEDS ORDERED: NITROGLYCERIN SL TABS 0.4 MG TAB SUBLINGUAL PRN (15:50)
[2020-08-06] MEDS ORDERED: ALBUTEROL NEBULIZED 2.5 MG/3 ML INHALATION PRN (18:28)
[2020-08-06] MEDS ORDERED: HYDROcodone/APAP 5-325MG 1 EACH TAB PO PRN (18:28)
[2020-08-06] MEDS ORDERED: ALPRAZolam 0.25 MG TAB PO PRN (18:28)
--- NOTE | 2020-08-06 19:18 | HP ---
HISTORY AND PHYSICAL DATE OF SERVICE: 08/06/2020 CHIEF COMPLAINT: Chest pain. HISTORY OF PRESENT ILLNESS: This 64-year-old gentleman with a past medical history of multiple medical problems including history of asthma, CAD, history of CVA, TIA, GERD, history of pneumonia, rheumatoid arthritis, being followed by Dr. Hopkins in the outpatient setting, was admitted to [facility] with complaints of chest discomfort on and off for the last 3 days. This discomfort was across the chest and also started from the left to right. The patient had removal of fatty tumor previously on the right chest. Because of concerns, the patient came to [facility] and was admitted for evaluation and treatment. There is no history of fever, rigors, chills. No headache, loss of consciousness or seizures at this time. PAST MEDICAL HISTORY: History of asthma, coronary artery disease, CVA, TIA, history of GERD, history of cardiac catheterization previously. MEDICATIONS: Home medications albuterol, Zestril, Pravachol, omeprazole, Lopressor, aspirin. ALLERGIES: None. FAMILY HISTORY: History of cancer and aneurysm. SOCIAL HISTORY: History of THC. Previous history of smoking. REVIEW OF SYSTEMS: ENT: No diminished hearing or vision. RESPIRATORY: As mentioned earlier. GI: As mentioned earlier. : No dysuria. NERVOUS SYSTEM: No numbness or weakness. ALLERGY/IMMUNOLOGY: No asthma or hayfever. MUSCULOSKELETAL: As mentioned earlier. HEMATOLOGY: No history of anemia. ENDOCRINE: No history of diabetes or hypothyroidism. CONSTITUTIONAL: As mentioned earlier. DERMATOLOGY: Negative. RHEUMATOLOGY: Negative. PSYCHIATRY: As mentioned earlier. PHYSICAL EXAMINATION: GENERAL: Patient is alert and oriented times three. VITAL SIGNS: Pulse 60, blood pressure 154/100, respirations 18, temperature 97.3, pulse ox 99% on room air. HEENT: Conjunctivae normal. Oral mucosa moist. NECK: No jugular venous distention. No carotid bruits. No lymph node enlargement. RESPIRATORY: Breath sounds diminished at the bases. No rhonchi, no crackles. HEART: S1 and S2, muffled. ABDOMEN: Soft, no tenderness. No masses palpable. EXTREMITIES: No edema, no swelling. NERVOUS: Higher functions as mentioned earlier. Moves all four limbs. No focal motor or sensory deficits. LYMPHATICS: No lymph nodes palpable in the neck or axillae. SKIN: No rashes. JOINTS: No active deforming arthropathy. LABS: CBC within normal. BMP noted. EKG shows peak T-waves and probably early repolarization changes. IMPRESSION: 1. Chest pain possible unstable angina. 2. History of asthma. 3. History of coronary artery disease. 4. History of cerebrovascular accident, transient ischemic attack. 5. Gastroesophageal reflux disease. 6. Hypertension. 7. History of pneumonia. 8. History of rheumatoid arthritis. 9. History of migraines. 10.History of anxiety, depression. 11.Remote history of nicotine dependence. 12.History of degenerative joint disease on the right shoulder. 13.Remote history of removal of the fatty tumor from the right chest. RECOMMENDATIONS AND DISCUSSION: In this 64-year-old gentleman who presented with multiple medical issues, we will monitor the patient closely. Continue the current management and symptomatic treatment. Rule out myocardial infarction. Unstable angina protocol. Resume the home medications. Further recommendations to follow. Prognosis guarded. Discussed with the patient who understands and agrees. MMREBECAL / LARISSAN: [id number] /
[2020-08-06] MEDS: METOPROLOL TARTRATE 12.5 MG TAB PO SCH (20:22)
[2020-08-06] MEDS ORDERED: NON FORMULARY DRUG (Omeprazole [Omeprazole] 20 MG Capsule.Dr) PO SCH (21:00)
[2020-08-07 03:37] VITALS: PULSE 52
[2020-08-07 05:12] LABS: Cholesterol 175 mg/dL (<200); HDL Cholesterol 55 mg/dL (40-60); LDL Cholesterol,Calculated 102 mg/dL (0-99); Triglycerides 90 mg/dL (<150)
[2020-08-07] MEDS ORDERED: PANTOPRAZOLE 40 MG TABLET PO SCH (07:30)
[2020-08-07 07:44] VITALS: BP 111/71; TEMP 97.6
[2020-08-07] MEDS ORDERED: PRAVASTATIN SODIUM 20 MG TAB PO SCH (09:00)
[2020-08-07] MEDS ORDERED: ASPIRIN 81 MG PO SCH (09:00)
[2020-08-07] MEDS ORDERED: ASPIRIN 325 MG TAB PO SCH (09:00)
[2020-08-07] MEDS ORDERED: lisinopriL 10 MG TAB PO SCH (09:00)
--- NOTE | 2020-08-07 10:58 | P.CRDCN ---
History of Present Illness Consult date: 08/07/20 History of present illness: HISTORY OF PRESENT ILLNESS: This is a 64-year-old male with a past medical history significant for hypertension, hyperlipidemia, GERD, and former nicotine dependence. Patient follows in the office with Dr. Mckeon. We have been asked to see the patient in consultation for chest pain. Patient examined at the bedside. He states he had a fatty tumor removed on the right side of his chest about 6 months ago. He states since that time he has been having intermittent chest pain. He states it has gotten a little worse over the past couple days. He states the pain is mostly on the right-sided chest and it feels like a squeezing sensation. He denies any radiation of the pain. He complains of numbness in his fingers and toes along with a pins and needles sensation. He reports the pain was worse with deep inspiration. There is no tenderness upon palpation of chest wall. At the time of examination, the patient denies any chest pain or pressure. Patient states that he recently had a Holter monitor placed at the cardiology office and is supposed to follow up next week for the results. Spoke with medical ass istant at cardiology office who states there is no results available yet for the patient's Holter monitor. Patient underwent a cardiac catheterization in August [address] Mckeon. Patient reports he had "3 arteries cleaned out" at that time. However according to cardiac cath report the patient had normal coronary arteries with no intervention performed. EKG reveals sinus bradycardia. Heart rate 53. Early repolarization.. Chest xray negative for acute process. Laboratory data: WBC 9.3, Hemoglobin 15.4, Platelet count 271, Sodium 138, Potassium 4.6, BUN 22, Creatinine 0.94, Troponin negative 3, BNP 71 Current home cardiac medications include lisinopril 10 mg daily, pravastatin 20 mg daily, metoprolol tartrate 12.5 mg twice a day, and aspirin 81 mg daily. Most recent echocardiogram obtained in July 2016 reveals ejection fraction 55-60%, mild mitral regurgitation and mild tricuspid regurgitation. REVIEW OF SYSTEMS: At the time of my exam: CONSTITUTIONAL: Denies fever or chills. HEENT: Denies blurred vision, vision changes, or eye pain. Denies hemoptysis CARDIOVASCULAR: Denies chest pain. Denies orthopnea. Denies PND. Denies palpitations RESPIRATORY: Denies shortness of breath. GASTROINTESTINAL: Denies abdominal pain. Denies nausea or vomiting. HEMATOLOGIC: Denies bleeding disorders. GENITOURINARY: Denies any blood in urine. SKIN: Denies pruitis. Denies rash. PHYSICAL EXAM: VITAL SIGNS: Reviewed. GENERAL: Well-developed in no acute distress. HEENT: Head is normocephalic. Pupils are equal, round. Sclerae anicteric. Mucous membranes of the mouth are moist. Neck supple. No JVD or thyromegaly LUNGS: Respirations even and unlabored. Lungs essentially clear to auscultation bilaterally. HEART: Regular rate and rhythm. S1 and S2 heard. ABDOMEN: Soft. Nondistended. Nontender. EXTREMITIES: Normal range of motion. No clubbing or cyanosis. Peripheral pulses intact. No lower extremity edema NEUROLOGIC: Awake and alert. Oriented x 3. ASSESSMENT: Chest pain 6 months, atypical, troponins negative 3 History of cardiac catheterization in August 2018 revealing normal coronary arteries Hypertension Hyperlipidemia History of lipoma removed from right chest GERD Former nicotine dependence PLAN: An acute coronary event has been ruled out Resume home cardiac medications Obtain 2-D echo to assess cardiac structure and function If no significant abnormalities noted on echocardiogram, the patient may be discharged home today in follow-up with Dr. Mckeon next week Nurse practitioner note has been reviewed by physician. Signing provider agrees with the documented findings, assessment, and plan of care. Past Medical History Past Medical History: Asthma, Coronary Artery Disease (CAD), Chest Pain / Angina, CVA/TIA, GERD/Reflux, Hypertension, Pneumonia, Rheumatoid Arthritis (RA) Additional Past Medical History / Comment(s): MIGRAINES, HEART MURMUR, hx HIATAL HERNIA, ANEMIA, one dr told him he had a stroke at one time-no effects, varicose veins History of Any Multi-Drug Resistant Organisms: None Reported Past Surgical History: Heart Catheterization, Hernia Repair, Orthopedic Surgery Additional Past Surgical History / Comment(s): Lt achilles tendon,RT SHOULDER surgery, RT ACHILLES TENDON reattached, HEMORRHOIDECTOMY, 13 FATTY TUMORS removed. left hand index finger surgery after injury, EGD WITH DILATION, surgery to repair hiatal hernia Past Anesthesia/Blood Transfusion Reactions: No Reported Reaction Additional Past Anesthesia/Blood Transfusion Reaction / Comment(s): no hx blood transfusion Past Psychological History: Anxiety, Depression Smoking Status: Former smoker Past Alcohol Use History: None Reported Additional Past Alcohol Use History / Comment(s): QUIT SMOKING 1999, APPROX SMOKED 20 YRS, 1-2PPD. pt states hx alcoholism Past Drug Use History: Marijuana Additional Drug Use History / Comment(s): CURRENTLY USES MARIJUANA 1-2 times per week-informed to refrain from use for at least 24 hours prior to procedure - Past Family History Mother Family Medical History: Cancer Father Additional Family Medical History / Comment(s): thinks aneurysm Medications and Allergies Home Medications Medication Instructions Recorded Confirmed Type Aspirin 81 mg PO DAILY 08/20/18 08/06/20 History Metoprolol Tartrate [Lopressor] 12.5 mg PO BID 08/20/18 08/06/20 History Albuterol Sulfate [Proair Hfa] 2 puff INHALATION RT-Q6H PRN 08/06/20 08/06/20 History Omeprazole 20 mg PO BID 08/06/20 08/06/20 History Pravastatin Sodium [Pravachol] 20 mg PO DAILY 08/06/20 08/06/20 History lisinopriL [Zestril] 10 mg PO DAILY 08/06/20 08/06/20 History Allergies Allergy/AdvReac Type Severity Reaction Status Date / Time No Known Allergies Allergy Verified 08/06/20 15:48 Physical Exam Vitals: Vital Signs Temp Pulse Pulse Resp BP BP Pulse Ox 08/07/20 07:42 97.6 F 52 L 18 111/71 97 08/07/20 07:39 52 L 18 08/07/20 03:38 52 L 08/07/20 03:37 97.8 F 52 L 113/70 98 08/06/20 19:00 97.9 F 56 L 18 153/87 98 08/06/20 18:01 97.5 F L 60 18 154/100 99 08/06/20 16:36 60 18 152/93 100 08/06/20 14:27 97.5 F L 60 18 173/95 99 Intake and Output 08/06/20 08/07/20 08/07/20 22:59 06:59 14:59 Intake Total 620 0 0 Balance 620 0 0 Intake: Oral 620 0 0 Other: Voiding Method Toilet Toilet Toilet Weight 71.668 kg Results 08/06/20 14:46 08/06/20 14:46 Cardiac Enzymes 08/06/20 08/06/20 08/06/20 Range/Units 14:46 14:46 18:06 AST 30 (17-59) U/L Troponin I <0.012 <0.012 (0.000-0.034) ng/mL 08/06/20 Range/Units 21:23 AST (17-59) U/L Troponin I <0.012 (0.000-0.034) ng/mL Coagulation 08/06/20 Range/Units 14:46 PT 10.0 (9.0-12.0) sec APTT 23.3 (22.0-30.0) sec Lipids 08/06/20 Range/Units 14:46 Triglycerides 90 (<150) mg/dL Cholesterol 175 (<200) mg/dL HDL Cholesterol 55 (40-60) mg/dL CBC 08/06/20 Range/Units 14:46 WBC 9.3 (3.8-10.6) k/uL RBC 4.88 (4.30-5.90) m/uL Hgb 15.4 (13.0-17.5) gm/dL Hct 45.2 (39.0-53.0) % Plt Count 271 (150-450) k/uL Comprehensive Metabolic Panel 08/06/20 Range/Units 14:46 Sodium 138 (137-145) mmol/L Potassium 4.6 (3.5-5.1) mmol/L Chloride 100 (98-107) mmol/L Carbon Dioxide 27 (22-30) mmol/L BUN 22 H (9-20) mg/dL Creatinine 0.94 (0.66-1.25) mg/dL Glucose 96 (74-99) mg/dL Calcium 9.9 (8.4-10.2) mg/dL AST 30 (17-59) U/L ALT 21 (4-49) U/L Alkaline Phosphatase 69 (38-126) U/L Total Protein 7.6 (6.3-8.2) g/dL Albumin 4.8 (3.5-5.0) g/dL Current Medications Generic Name Dose Route Start Last Admin Trade Name Freq PRN Reason Stop Dose Admin Hydrocodone Bitart/Acetaminophen 1 each 08/06/20 18:28 08/06/20 21:57 Hydrocodone/Apap 5-325mg 1 Each Tab PO 1 each Q6HR PRN Administration Pain Albuterol Sulfate 2.5 mg 08/06/20 18:28 Albuterol Nebulized 2.5 Mg/3 Ml INHALATION RT-Q6H PRN Shortness Of Breath Alprazolam 0.25 mg 08/06/20 18:28 Alprazolam 0.25 Mg Tab PO TID PRN Anxiety Aspirin 81 mg 08/07/20 09:00 08/07/20 09:09 Aspirin 81 Mg PO 81 mg DAILY GIRISH Administration Lisinopril 10 mg 08/07/20 09:00 08/07/20 09:09 Lisinopril 10 Mg Tab PO 10 mg DAILY GIRISH Administration Metoprolol Tartrate 12.5 mg 08/06/20 21:00 08/06/20 20:22 Metoprolol Tartrate 12.5 Mg Tab PO 12.5 mg BID GIRISH Administration Nitroglycerin 0.4 mg 08/06/20 15:50 Nitroglycerin Sl Tabs 0.4 Mg Tab SUBLINGUAL Q5M PRN Chest Pain Pantoprazole Sodium 40 mg 08/07/20 07:30 08/07/20 07:45 Pantoprazole 40 Mg Tablet PO 40 mg [id number]-[id number] GIRISH Administration Pravastatin Sodium 20 mg 08/07/20 09:00 08/07/20 09:09 Pravastatin Sodium 20 Mg Tab PO 20 mg DAILY GIRISH Administration Intake and Output 08/06/20 08/07/20 08/07/20 22:59 06:59 14:59 Intake Total 620 0 0 Balance 620 0 0 Intake: Oral 620 0 0 Other: Voiding Method Toilet Toilet Toilet Weight 71.668 kg 08/06/20 14:46 08/06/20 14:46
[2020-08-07] MEDS: METOPROLOL TARTRATE 12.5 MG TAB PO SCH (12:16)
--- NOTE | 2020-08-07 12:43 | ECHOF ---
Referral Reason:chest pain MEASUREMENTS -------- HEIGHT: 172.7 cm WEIGHT: 71.7 kg BP: 111/71 RVIDd: 2.8 cm (< 3.3) IVSd: 1.2 cm (0.6 - 1.1) LVIDd: 3.5 cm (3.9 - 5.3) LVPWd: 1.3 cm (0.6 - 1.1) IVSs: 1.5 cm LVIDs: 2.1 cm LVPWs: 1.6 cm LAESV Index (A-L): 29.30 ml/m Ao Diam: 3.0 cm (2.0 - 3.7) AV Cusp: 1.9 cm (1.5 - 2.6) MV EXCURSION: 16.638 mm (> 18.000) MV EF SLOPE: 109 mm/s (70 - 150) EPSS: 0.3 cm MV E Jose Elias: 0.83 m/s MV DecT: 299 ms MV A Jose Elias: 0.72 m/s MV E/A Ratio: 1.16 RAP: 5.00 mmHg RVSP: 26.31 mmHg FINDINGS -------- Resting bradycardia (HR<60bpm). This was a technically adequate study. The left ventricular size is normal. There is mild concentric left ventricular hypertrophy. Overa ll left ventricular systolic function is normal with, an EF between 55 - 60 %. The diastolic fillin g pattern is normal for the age of the patient {E/E'}. The right ventricle is normal in size. LA is midly dilated 29-33ml/m2. The right atrial size is normal. Interatrial and interventricular septum intact. The aortic valve is trileaflet and appears structurally normal. There is no evidence of aortic regu rgitation. There is no evidence of aortic stenosis. Mild mitral regurgitation is present. Mild tricuspid regurgitation present. There is no evidence of pulmonary hypertension. The right v entricular systolic pressure, as measured by Doppler, is 26.31mmHg. There is no pulmonic regurgitation present. The aortic root size is normal. Normal inferior vena cava with normal inspiratory collapse consistent with estimated right atrial pre ssure of 5 mmHg. There is no pericardial effusion. CONCLUSIONS -------- 1. The left ventricular size is normal. 2. There is mild concentric left ventricular hypertrophy. 3. Overall left ventricular systolic function is normal with, an EF between 55 - 60 %. 4. The diastolic filling pattern is normal for the age of the patient {E/E'} 5. LA is midly dilated 29-33ml/m2. 6. Mild mitral regurgitation is present. 7. Mild tricuspid regurgitation present. DORMITORY MAID: Pushpa Guerra RDCS
--- NOTE | 2020-08-08 12:19 | DS ---
DISCHARGE SUMMARY DATE OF ADMISSION: 08/06/2020 DATE OF DISCHARGE: 08/07/2020 FINAL DIAGNOSES: 1. Anterior chest wall pain, could be musculoskeletal. 2. Coronary artery disease. 3. Gastroesophageal reflux disease. 4. Essential hypertension. 5. Rheumatoid arthritis. 6. Hiatal hernia. 7. Varicose veins. HOSPITAL COURSE: The patient presented with chest pain. Troponins were negative. The EKG was unremarkable. 2D echocardiogram showed the EF of 55-60%. No obvious wall motion abnormality. The patient was seen by Cardiology, Dr. Mckeon, and cleared for discharge. The patient had no further cardiac symptoms. PHYSICAL EXAMINATION: VITAL SIGNS: Temperature 97.6 pulse 52, respiratory 18, blood pressure 111/71, pulse ox 97% on room air. GENERAL APPEARANCE: Sitting up comfortable. LUNGS: Clear. CARDIOVASCULAR: 1st and 2nd sounds normal. INVESTIGATIONS: White count 9.3, hemoglobin 15.4, platelets 271, potassium 4.6, creatinine 0.94. Troponin I x 3 negative. LDL 102. Next EKG normal sinus rhythm with no specific ischemic findings. A 2D echo, EF of 55%. HOME GO MEDICATIONS: Aspirin 81 mg a day, lopressor 12.5 p.o. b.i.d., ProAir HFA 2 puffs q.6 p.r.n., omeprazole 20 mg b.i.d., Pravachol 20 mg p.o. daily, Zestril 10 mg p.o. daily, Nitrostat 0.4 sublingual q.5 p.r.n. FOLLOWUP: 1. Follow up with Dr. Hopkins in 1 or 2 days. 2. Follow up with Dr. Mckeon on August 10, 2020. MMODL / IJN: [id number] /
== END 2020-08-07 14:19 ==
LOC: EC 14:26 → 6NMEDSUR 17:29
PROVIDERS: ADMIT Hospitalist; ATTEND Hospitalist
DX: R07.89 Other chest pain (principal); I25.10 Atherosclerotic heart disease of native coronary artery without angina pectoris; K21.9 Gastro-esophageal reflux disease without esophagitis; I10 Essential (primary) hypertension; K44.9 Diaphragmatic hernia without obstruction or gangrene; I83.90 Asymptomatic varicose veins of unspecified lower extremity; M47.814 Spondylosis without myelopathy or radiculopathy, thoracic region; E78.5 Hyperlipidemia, unspecified; F12.90 Cannabis use, unspecified, uncomplicated; J45.909 Unspecified asthma, uncomplicated; M06.9 Rheumatoid arthritis, unspecified; Z79.82 Long term (current) use of aspirin; Z79.899 Other long term (current) drug therapy; Z86.73 Personal history of transient ischemic attack (TIA), and cerebral infarction without residual deficits; Z87.01 Personal history of pneumonia (recurrent); Z87.891 Personal history of nicotine dependence; Z20.822 Contact with and (suspected) exposure to COVID-19
CPT/HCPCS: 93005 ×2; 99285; 36415; 93306; 83880; 80061; 80053; 83735; 84484; 85025; 85610; 85730; 87635; 71046; G0378 ×2

== ENCOUNTER 2021-01-14 13:48 | Emergency (ER) | payer OTHER ==
[2021-01-14 13:55] VITALS: RESP 18; TEMP 98.3
[2021-01-14] MEDS ORDERED: ONDANSETRON 4 MG/2 ML VIAL IVP STA (14:38)
[2021-01-14] MEDS ORDERED: SODIUM CHLORIDE 0.9% 1,000 ML IV STA (14:38)
[2021-01-14 15:22] LABS: Basophils % (A) 0 %; Eosinophils % (A) 0 %; HCT 46.6 % (39.0-53.0); HGB 15.6 gm/dL (13.0-17.5); Lymphocytes # (A) 1.5 k/uL (1.0-4.8); Lymphocytes % (A) 20 %; MCH 31.5 pg (25.0-35.0); MCHC 33.5 g/dL (31.0-37.0); Mean Platelet Volume 8.6; Monocytes # (A) 0.6 k/uL (0-1.0); Monocytes % (A) 8 %; Neutrophils # (A) 5.2 k/uL (1.3-7.7); Neutrophils % (A) 69 %; Platelet Count 283 k/uL (150-450); RBC 4.95 m/uL (4.30-5.90); RDW 13.7 % (11.5-15.5); WBC 7.5 k/uL (3.8-10.6)
[2021-01-14 15:23] LABS: Appearance,Urine Clear (Clear); Bilirubin,Urine Negative (Negative); Blood,Urine Negative (Negative); Color,Urine Yellow; Glucose,Urine (UA) Negative (Negative); Ketones,Urine 1+ (Negative); Leukocyte Esterase,Urine Negative (Negative); Mucus,Urine Few /hpf; Nitrite,Urine Negative (Negative); Protein,Urine 1+ (Negative); RBC,Urine 1 /hpf (0-5); Specific Gravity,Urine 1.025 (1.001-1.035); Squamous Epithelial Cell,Urine <1 /hpf (0-4); Urobilinogen,Urine <2.0 mg/dL (<2.0); WBC,Urine 1 /hpf (0-5)
--- NOTE | 2021-01-14 15:24 | XR ---
EXAMINATION TYPE: XR chest 2V DATE OF EXAM: 01/14/2021 COMPARISON: 08/06/2020 HISTORY: 65-year-old male with cough TECHNIQUE: PA and lateral views FINDINGS: Heart upper limits of normal in size. Mild interstitial prominence as a chronic appearance. Large hia haley hernia with retrocardiac air fluid level. No consolidation or pleural effusion. Fractured fixatio n wires at the right AC joint. Moderate to severe left AC joint OA. IMPRESSION: Possible underlying COPD. Clinically correlate. Large hiatal hernia noted behind the heart. Note fractured fixation wires at the right AC joint. Correlate for any right AC joint instability
[2021-01-14 15:31] LABS: ALT 22 U/L (4-49); AST 30 U/L (17-59); African American GFR (CKD) >90 (>60 ml/min/1.73 sqM); Albumin 4.5 g/dL (3.5-5.0); Alkaline Phosphatase 84 U/L (38-126); Amylase 96 U/L (30-110); Anion Gap 12 mmol/L; Blood Urea Nitrogen 22 mg/dL (9-20); Calcium 9.8 mg/dL (8.4-10.2); Carbon Dioxide 25 mmol/L (22-30); Chloride 101 mmol/L (98-107); Glucose 110 mg/dL (74-99); Lipase 91 U/L (23-300); Non-African American GFR(CKD) >90 (>60 ml/min/1.73 sqM); Potassium 4.1 mmol/L (3.5-5.1); Sodium 138 mmol/L (137-145); Total Bilirubin 0.6 mg/dL (0.2-1.3); Total Protein 7.1 g/dL (6.3-8.2)
--- NOTE | 2021-01-14 16:27 | ED ---
General Adult HPI - General Chief complaint: Nausea/Vomiting/Diarrhea Stated complaint: Vomiting,Coughing Time Seen by Provider: 01/14/21 14:06 Source: patient, RN notes reviewed Mode of arrival: ambulatory Limitations: no limitations - History of Present Illness Initial comments: 65-year-old male with a past medical history of asthma, CAD, chest pain, CVA, GI bleed, hypertension presents to the emergency room for a chief complaint of not feeling well. Patient states for the past 2 days he has had nausea and vomiting. He denies any abdominal pain or diarrhea associated. Denies any fevers. He has also had congestion and a cough. States the cough is dry. Patient denies any shortness of breath. Patient states his doctor told him he should be checked out.Patient has no other complaints at this time including shortness of breath, chest pain, abdominal pain, headache, or visual changes. - Related Data Home Medications Medication Instructions Recorded Confirmed Metoprolol Tartrate [Lopressor] 12.5 mg PO BID 08/20/18 01/14/21 Albuterol Sulfate [Proair Hfa] 2 puff INHALATION RT-Q6H PRN 08/06/20 01/14/21 Omeprazole 20 mg PO BID 08/06/20 01/14/21 Pravastatin Sodium [Pravachol] 20 mg PO HS 08/06/20 01/14/21 lisinopriL [Zestril] 5 mg PO DAILY 08/06/20 01/14/21 Magnesium 500 mg PO HS 01/14/21 01/14/21 Previous Rx's Medication Instructions Recorded Nitroglycerin Sl Tabs [Nitrostat] 0.4 mg SUBLINGUAL Q5M PRN #30 tab 08/07/20 Ondansetron [Zofran ODT] 4 mg PO Q8HR PRN #15 tab 01/14/21 predniSONE 50 mg PO DAILY #5 tablet 01/14/21 Allergies Allergy/AdvReac Type Severity Reaction Status Date / Time No Known Allergies Allergy Verified 01/14/21 15:56 Review of Systems ROS Statement: Those systems with pertinent positive or pertinent negative responses have been documented in the HPI. ROS Other: All systems not noted in ROS Statement are negative. Past Medical History Past Medical History: Asthma, Coronary Artery Disease (CAD), Chest Pain / Angina, CVA/TIA, GERD/Reflux, Hypertension, Pneumonia, Rheumatoid Arthritis (RA) Additional Past Medical History / Comment(s): MIGRAINES, HEART MURMUR, hx HIATAL HERNIA, ANEMIA, one dr told him he had a stroke at one time-no effects, varic ose veins History of Any Multi-Drug Resistant Organisms: None Reported Past Surgical History: Heart Catheterization, Hernia Repair, Orthopedic Surgery Additional Past Surgical History / Comment(s): Lt achilles tendon,RT SHOULDER surgery, RT ACHILLES TENDON reattached, HEMORRHOIDECTOMY, 13 FATTY TUMORS removed. left hand index finger surgery after injury, EGD WITH DILATION, surgery to repair hiatal hernia Past Anesthesia/Blood Transfusion Reactions: No Reported Reaction Additional Past Anesthesia/Blood Transfusion Reaction / Comment(s): no hx blood transfusion Past Psychological History: Anxiety, Depression Smoking Status: Former smoker Past Alcohol Use History: None Reported Past Drug Use History: Marijuana - Past Family History Mother Family Medical History: Cancer Father Additional Family Medical History / Comment(s): thinks aneurysm General Exam Limitations: no limitations General appearance: alert Head exam: Present: atraumatic Eye exam: Present: normal appearance, PERRL, EOMI. Absent: scleral icterus ENT exam: Present: normal exam, mucous membranes moist Neck exam: Present: normal inspection, full ROM. Absent: tenderness Respiratory exam: Present: normal lung sounds bilaterally. Absent: respiratory distress, wheezes Cardiovascular Exam: Present: regular rate, normal rhythm, normal heart sounds GI/Abdominal exam: Present: soft, normal bowel sounds. Absent: distended, tenderness Course Vital Signs 01/14/21 13:50 Temperature 98.3 F Pulse Rate 104 H Respiratory 18 Rate Blood Pressure 146/92 O2 Sat by Pulse 98 Oximetry Medical Decision Making - Medical Decision Making Vitals are stable. Patient is well-appearing. Physical examination unremarkable. No abdominal tenderness. Laboratory evaluation was obtained. CBC was unremarkable. CMP did show evidence of dehydration with a BUN to creatinine ratio of 25. Urine ketones 1+ coals along with that. Patient was given a liter of fluid. Chest x-ray showed no pneumonia. Joy virus and influenza are negative. Patient likely has upper respiratory infection and viral syndrome. Given history of COPD we will start him on a steroid. He is already prescribed albuterol. We'll also start him on Zofran. He will follow up with his doctor and return for any worsening symptoms. - Lab Data Result diagrams: 01/14/21 14:40 01/14/21 14:40 Lab Results 01/14/21 01/14/21 01/14/21 Range/Units 14:40 14:40 14:40 WBC 7.5 (3.8-10.6) k/uL RBC 4.95 (4.30-5.90) m/uL Hgb 15.6 (13.0-17.5) gm/dL Hct 46.6 (39.0-53.0) % MCV 94.0 (80.0-100.0) fL MCH 31.5 (25.0-35.0) pg MCHC 33.5 (31.0-37.0) g/dL RDW 13.7 (11.5-15.5) % Plt Count 283 (150-450) k/uL MPV 8.6 Neutrophils % 69 % Lymphocytes % 20 % Monocytes % 8 % Eosinophils % 0 % Basophils % 0 % Neutrophils # 5.2 (1.3-7.7) k/uL Lymphocytes # 1.5 (1.0-4.8) k/uL Monocytes # 0.6 (0-1.0) k/uL Eosinophils # 0.0 (0-0.7) k/uL Basophils # 0.0 (0-0.2) k/uL Sodium 138 (137-145) mmol/L Potassium 4.1 (3.5-5.1) mmol/L Chloride 101 (98-107) mmol/L Carbon Dioxide 25 (22-30) mmol/L Anion Gap 12 mmol/L BUN 22 H (9-20) mg/dL Creatinine 0.86 (0.66-1.25) mg/dL Est GFR (CKD-EPI)AfAm >90 (>60 ml/min/1.73 sqM) Est GFR (CKD-EPI)NonAf >90 (>60 ml/min/1.73 sqM) Glucose 110 H (74-99) mg/dL Calcium 9.8 (8.4-10.2) mg/dL Total Bilirubin 0.6 (0.2-1.3) mg/dL AST 30 (17-59) U/L ALT 22 (4-49) U/L Alkaline Phosphatase 84 (38-126) U/L Total Protein 7.1 (6.3-8.2) g/dL Albumin 4.5 (3.5-5.0) g/dL Amylase 96 (30-110) U/L Lipase 91 (23-300) U/L Urine Color Yellow Urine Appearance Clear (Clear) Urine pH 6.0 (5.0-8.0) Ur Specific [place] 1.025 (1.001-1.035) Urine Protein 1+ H (Negative) Urine Glucose (UA) Negative (Negative) Urine Ketones 1+ H (Negative) Urine Blood Negative (Negative) Urine Nitrite Negative (Negative) Urine Bilirubin Negative (Negative) Urine Urobilinogen <2.0 (<2.0) mg/dL Ur Leukocyte Esterase Negative (Negative) Urine RBC 1 (0-5) /hpf Urine WBC 1 (0-5) /hpf Ur Squamous Epith Cells <1 (0-4) /hpf Urine Mucus Few H (None) /hpf Coronavirus (PCR) (Not Detectd) Influenza Type A RNA (Not Detectd) Influenza Type B (PCR) (Not Detectd) 01/14/21 01/14/21 Range/Units 14:40 14:40 WBC (3.8-10.6) k/uL RBC (4.30-5.90) m/uL Hgb (13.0-17.5) gm/dL Hct (39.0-53.0) % MCV (80.0-100.0) fL MCH (25.0-35.0) pg MCHC (31.0-37.0) g/dL RDW (11.5-15.5) % Plt Count (150-450) k/uL MPV Neutrophils % % Lymphocytes % % Monocytes % % Eosinophils % % Basophils % % Neutrophils # (1.3-7.7) k/uL Lymphocytes # (1.0-4.8) k/uL Monocytes # (0-1.0) k/uL Eosinophils # (0-0.7) k/uL Basophils # (0-0.2) k/uL Sodium (137-145) mmol/L Potassium (3.5-5.1) mmol/L Chloride (98-107) mmol/L Carbon Dioxide (22-30) mmol/L Anion Gap mmol/L BUN (9-20) mg/dL Creatinine (0.66-1.25) mg/dL Est GFR (CKD-EPI)AfAm (>60 ml/min/1.73 sqM) Est GFR (CKD-EPI)NonAf (>60 ml/min/1.73 sqM) Glucose (74-99) mg/dL Calcium (8.4-10.2) mg/dL Total Bilirubin (0.2-1.3) mg/dL AST (17-59) U/L ALT (4-49) U/L Alkaline Phosphatase (38-126) U/L Total Protein (6.3-8.2) g/dL Albumin (3.5-5.0) g/dL Amylase (30-110) U/L Lipase (23-300) U/L Urine Color Urine Appearance (Clear) Urine pH (5.0-8.0) Ur Specific [place] (1.001-1.035) Urine Protein (Negative) Urine Glucose (UA) (Negative) Urine Ketones (Negative) Urine Blood (Negative) Urine Nitrite (Negative) Urine Bilirubin (Negative) Urine Urobilinogen (<2.0) mg/dL Ur Leukocyte Esterase (Negative) Urine RBC (0-5) /hpf Urine WBC (0-5) /hpf Ur Squamous Epith Cells (0-4) /hpf Urine Mucus (None) /hpf Coronavirus (PCR) Not Detected (Not Detectd) Influenza Type A RNA Not Detected (Not Detectd) Influenza Type B (PCR) Not Detected (Not Detectd) Disposition Clinical Impression: Cough, Nasal congestion, Nausea and vomiting Disposition: HOME SELF-CARE Condition: Good Instructions (If sedation given, give patient instructions): Acute Nausea and Vomiting (ED), Acute Cough (ED) Additional Instructions: Please take Zofran as needed for nausea. Take small sips of fluid at a time frequently throughout the day. Take steroid for cough and continue your albuterol inhaler. Return to the emergency room for any worsening symptoms. Prescriptions: predniSONE 50 mg PO DAILY #5 tablet Ondansetron [Zofran ODT] 4 mg PO Q8HR PRN #15 tab PRN Reason: Nausea Is patient prescribed a controlled substance at d/c from ED?: No Referrals: Misael Hopkins MD [Primary Care Provider] - 1-2 days Time of Disposition: 16:24
[2021-01-14 16:35] VITALS: BP 148/93; PULSE 77
== END 2021-01-14 16:40 | disposition home or self-care (01) ==
LOC: EC 13:48
DX: R11.2 Nausea with vomiting, unspecified (principal); R05 Cough; R09.81 Nasal congestion; I10 Essential (primary) hypertension; J45.909 Unspecified asthma, uncomplicated; I25.10 Atherosclerotic heart disease of native coronary artery without angina pectoris; K21.9 Gastro-esophageal reflux disease without esophagitis; M06.9 Rheumatoid arthritis, unspecified; F41.9 Anxiety disorder, unspecified; F32.9 Major depressive disorder, single episode, unspecified; F12.90 Cannabis use, unspecified, uncomplicated; Z87.891 Personal history of nicotine dependence; Z86.73 Personal history of transient ischemic attack (TIA), and cerebral infarction without residual deficits; Z20.822 Contact with and (suspected) exposure to COVID-19
CPT/HCPCS: 99284; 96374; 96361; 36415; 80053; 82150; 83690; 85025; 81001; 87502; 87635; 71046; J2405

== ENCOUNTER 2022-04-11 09:48 | Inpatient (IN) | payer MEDICARE, OTHER ==
[2022-04-11] MEDS ORDERED: SODIUM CHLORIDE 0.9% 500 ML 500 ML IV STA (10:33)
[2022-04-11] MEDS ORDERED: ONDANSETRON 4 MG/2 ML VIAL IVP STA (10:33)
--- NOTE | 2022-04-11 10:37 | ED ---
General Adult HPI - General Chief complaint: Weakness Stated complaint: Vomiting Time Seen by Provider: 04/11/22 10:27 Source: patient, RN notes reviewed, old records reviewed Mode of arrival: wheelchair Limitations: no limitations - History of Present Illness Initial comments: Nontoxic-appearing 66-year-old male presents ambulatory with complaints of n ausea and vomiting for one week. Last bowel movement was 2 days ago. He states he normally has problems with constipation. States he is not passing any gas. He has been trying [place] and water and it keeps coming up. Denies any fevers, chest pain or difficulty in breathing. -: week(s) (1) Location: abdomen Severity scale (1-10): 6 Quality: aching Improves with: none Worsens with: none Associated Symptoms: nausea/vomiting, other (Constipation) Treatments Prior to Arrival: none - Related Data Home Medications Medication Instructions Recorded Confirmed Metoprolol Tartrate [Lopressor] 12.5 mg PO BID 08/20/18 04/11/22 Albuterol Sulfate [Proair Hfa] 2 puff INHALATION RT-Q6H PRN 08/06/20 04/11/22 Omeprazole 20 mg PO BID 08/06/20 04/11/22 Pravastatin Sodium [Pravachol] 20 mg PO HS 08/06/20 04/11/22 lisinopriL [Zestril] 5 mg PO DAILY 08/06/20 04/11/22 Magnesium 500 mg PO HS 01/14/21 04/11/22 Previous Rx's Medication Instructions Recorded Nitroglycerin Sl Tabs [Nitrostat] 0.4 mg SUBLINGUAL Q5M PRN #30 tab 08/07/20 Ondansetron [Zofran ODT] 4 mg PO Q8HR PRN #15 tab 01/14/21 Allergies Allergy/AdvReac Type Severity Reaction Status Date / Time No Known Allergies Allergy Verified 04/11/22 13:48 Review of Systems ROS Statement: Those systems with pertinent positive or pertinent negative responses have been documented in the HPI. ROS Other: All systems not noted in ROS Statement are negative. Past Medical History Past Medical History: Asthma, Coronary Artery Disease (CAD), Chest Pain / Angina, CVA/TIA, GERD/Reflux, Hypertension, Pneumonia, Rheumatoid Arthritis (RA) Additional Past Medical History / Comment(s): MIGRAINES, HEART MURMUR, hx HIATAL HERNIA, ANEMIA, one dr told him he had a stroke at one time-no effects, varicose veins History of Any Multi-Drug Resistant Organisms: None Reported Past Surgical History: Heart Catheterization, Hernia Repair, Orthopedic Surgery Additional Past Surgical History / Comment(s): Lt achilles tendon,RT SHOULDER surgery, RT ACHILLES TENDON reattached, HEMORRHOIDECTOMY, 13 FATTY TUMORS removed. left hand index finger surgery after injury, EGD WITH DILATION, surgery to repair hiatal hernia Past Anesthesia/Blood Transfusion Reactions: No Reported Reaction Additional Past Anesthesia/Blood Transfusion Reaction / Comment(s): no hx blood transfusion Past Psychological History: Anxiety, Depression Smoking Status: Former smoker Past Alcohol Use History: None Reported Past Drug Use History: Marijuana - Past Family History Mother Family Medical History: Cancer Father Additional Family Medical History / Comment(s): thinks aneurysm General Exam Limitations: no limitations General appearance: alert, in no apparent distress Head exam: Present: atraumatic, normocephalic, normal inspection Eye exam: Absent: scleral icterus, conjunctival injection, periorbital swelling ENT exam: Present: mucous membranes moist, other (Poor dentition) Neck exam: Present: full ROM. Absent: tenderness, meningismus, lymphadenopathy Respiratory exam: Present: normal lung sounds bilaterally. Absent: respiratory distress, wheezes, rales, rhonchi, stridor, chest wall tenderness, accessory muscle use Cardiovascular Exam: Present: tachycardia GI/Abdominal exam: Present: soft, tenderness, mass (intestinal loops). Absent: distended, guarding, rebound, rigid Back exam: Present: normal inspection, full ROM. Absent: tenderness, CVA tenderness (R), CVA tenderness (L), rash noted Neurological exam: Present: alert, oriented X3, normal gait Psychiatric exam: Present: normal affect, normal mood Skin exam: Present: warm, dry, normal color. Absent: cyanosis, diaphoretic, petechiae, pallor Course Vital Signs 04/11/22 04/11/22 09:59 12:47 Temperature 98 F Pulse Rate 102 H 78 Respiratory 16 18 Rate Blood Pressure 141/98 148/106 O2 Sat by Pulse 97 99 Oximetry - Reevaluation(s) Reevaluation #1: 04/11/22 14:[address] Yun regarding patient who will review the scans and call us back. Time: 14:03 Reevaluation #2: 04/11/22 14:20 Dr Yun coming in to see pt. Patient has had no vomiting in the emergency room. Feeling better after IVF and medications. Time: 14:20 Medical Decision Making - Medical Decision Making Abdominal x-ray shows nonspecific abdomen with a few prominent small bowel loops consistent with ileus or enteritis. Partial obstruction pattern not entirely excluded. There is a large hiatal hernia. Labs show a mild leukocytosis at 11.7. CT of the abdomen and pelvis was performed showing a large sized hiatal hernia or intrathoracic stomach. Redemonstrated with twisting similar to prior. No suspicious small or large bowel dilatation to suggest bowel obstruction Lactic acid 1.3. Patient was given IV fluids and Zofran with relief of his nausea. Dr. Yun at bedside to discuss plan of care with patient. CT chest with IV and oral contrast requested by Dr. Yun. - Lab Data Result diagrams: 04/11/22 10:41 04/11/22 10:41 Lab Results 04/11/22 04/11/22 04/11/22 Range/Units 10:41 10:41 12:11 WBC 11.7 H (3.8-10.6) k/uL RBC 5.46 (4.30-5.90) m/uL Hgb 17.3 (13.0-17.5) gm/dL Hct 50.1 (39.0-53.0) % MCV 91.8 (80.0-100.0) fL MCH 31.6 (25.0-35.0) pg MCHC 34.5 (31.0-37.0) g/dL RDW 12.8 (11.5-15.5) % Plt Count 319 (150-450) k/uL MPV 9.2 Neutrophils % 86 % Lymphocytes % 8 % Monocytes % 5 % Eosinophils % 0 % Basophils % 0 % Neutrophils # 10.0 H (1.3-7.7) k/uL Lymphocytes # 0.9 L (1.0-4.8) k/uL Monocytes # 0.5 (0-1.0) k/uL Eosinophils # 0.0 (0-0.7) k/uL Basophils # 0.0 (0-0.2) k/uL Sodium 139 (137-145) mmol/L Potassium 4.0 (3.5-5.1) mmol/L Chloride 98 (98-107) mmol/L Carbon Dioxide 27 (22-30) mmol/L Anion Gap 14 mmol/L BUN 28 H (9-20) mg/dL Creatinine 1.11 (0.66-1.25) mg/dL Est GFR (CKD-EPI)AfAm 80 (>60 ml/min/1.73 sqM) Est GFR (CKD-EPI)NonAf 70 (>60 ml/min/1.73 sqM) Glucose 156 H (74-99) mg/dL Plasma Lactic Acid Jack (0.7-2.0) mmol/L Calcium 9.9 (8.4-10.2) mg/dL Total Bilirubin 0.9 (0.2-1.3) mg/dL AST 26 (17-59) U/L ALT 22 (4-49) U/L Alkaline Phosphatase 90 (38-126) U/L Total Protein 8.1 (6.3-8.2) g/dL Albumin 5.2 H (3.5-5.0) g/dL Amylase 83 (30-110) U/L Lipase 76 (23-300) U/L Urine Color Yellow Urine Appearance Cloudy (Clear) Urine pH 5.5 (5.0-8.0) Ur Specific [place] 1.026 (1.001-1.035) Urine Protein 1+ H (Negative) Urine Glucose (UA) Negative (Negative) Urine Ketones 2+ H (Negative) Urine Blood Negative (Negative) Urine Nitrite Negative (Negative) Urine Bilirubin Negative (Negative) Urine Urobilinogen <2.0 (<2.0) mg/dL Ur Leukocyte Esterase Negative (Negative) Urine RBC 1 (0-5) /hpf Urine WBC 1 (0-5) /hpf Amorphous Sediment Occasional H (None) /hpf Hyaline Casts 10 H (0-2) /lpf Urine Mucus Many H (None) /hpf 04/11/22 Range/Units 14:51 WBC (3.8-10.6) k/uL RBC (4.30-5.90) m/uL Hgb (13.0-17.5) gm/dL Hct (39.0-53.0) % MCV (80.0-100.0) fL MCH (25.0-35.0) pg MCHC (31.0-37.0) g/dL RDW (11.5-15.5) % Plt Count (150-450) k/uL MPV Neutrophils % % Lymphocytes % % Monocytes % % Eosinophils % % Basophils % % Neutrophils # (1.3-7.7) k/uL Lymphocytes # (1.0-4.8) k/uL Monocytes # (0-1.0) k/uL Eosinophils # (0-0.7) k/uL Basophils # (0-0.2) k/uL Sodium (137-145) mmol/L Potassium (3.5-5.1) mmol/L Chloride (98-107) mmol/L Carbon Dioxide (22-30) mmol/L Anion Gap mmol/L BUN (9-20) mg/dL Creatinine (0.66-1.25) mg/dL Est GFR (CKD-EPI)AfAm (>60 ml/min/1.73 sqM) Est GFR (CKD-EPI)NonAf (>60 ml/min/1.73 sqM) Glucose (74-99) mg/dL Plasma Lactic Acid Jack 1.3 (0.7-2.0) mmol/L Calcium (8.4-10.2) mg/dL Total Bilirubin (0.2-1.3) mg/dL AST (17-59) U/L ALT (4-49) U/L Alkaline Phosphatase (38-126) U/L Total Protein (6.3-8.2) g/dL Albumin (3.5-5.0) g/dL Amylase (30-110) U/L Lipase (23-300) U/L Urine Color Urine Appearance (Clear) Urine pH (5.0-8.0) Ur Specific [place] (1.001-1.035) Urine Protein (Negative) Urine Glucose (UA) (Negative) Urine Ketones (Negative) Urine Blood (Negative) Urine Nitrite (Negative) Urine Bilirubin (Negative) Urine Urobilinogen (<2.0) mg/dL Ur Leukocyte Esterase (Negative) Urine RBC (0-5) /hpf Urine WBC (0-5) /hpf Amorphous Sediment (None) /hpf Hyaline Casts (0-2) /lpf Urine Mucus (None) /hpf Disposition Clinical Impression: Incarcerated hiatal hernia Disposition: ADMITTED IP TO THIS HOSP Referrals: Kellie,Misael, MD [Primary Care Provider] - 1-2 days Decision Date: 04/11/22 Decision Time: 14:44
[2022-04-11 10:51] LABS: Basophils % (A) 0 %; Eosinophils % (A) 0 %; HCT 50.1 % (39.0-53.0); HGB 17.3 gm/dL (13.0-17.5); Lymphocytes # (A) 0.9 k/uL (1.0-4.8); Lymphocytes % (A) 8 %; MCH 31.6 pg (25.0-35.0); MCHC 34.5 g/dL (31.0-37.0); MCV 91.8 fL (80.0-100.0); Mean Platelet Volume 9.2; Monocytes # (A) 0.5 k/uL (0-1.0); Monocytes % (A) 5 %; Neutrophils % (A) 86 %; Platelet Count 319 k/uL (150-450); RBC 5.46 m/uL (4.30-5.90); RDW 12.8 % (11.5-15.5); WBC 11.7 k/uL (3.8-10.6)
[2022-04-11 11:12] LABS: Albumin 5.2 g/dL (3.5-5.0); Calcium 9.9 mg/dL (8.4-10.2); Total Bilirubin 0.9 mg/dL (0.2-1.3); Total Protein 8.1 g/dL (6.3-8.2)
--- NOTE | 2022-04-11 11:49 | XR ---
EXAMINATION TYPE: XR KUB DATE OF EXAM: 04/11/2022 COMPARISON: 07/07/2016 HISTORY: Nausea and vomiting TECHNIQUE: One view abdominal series FINDINGS: The osseous structures are intact. The bowel gas pattern is nonspecific. Single air-fluid level note d with mild prominence of abdominal small bowel loops. Large hiatal hernia. Hypertrophic degenerative change of the spine. No suspicious calcifications. IMPRESSION: 1. Nonspecific abdomen. Few prominent small bowel loops in the upper abdomen correlate for ileus or e nteritis. Partial obstruction pattern entirely excluded. 2. There is a large hiatal hernia.
[2022-04-11 12:25] LABS: Amorphous Sediment,Urine Occasional /hpf; Appearance,Urine Cloudy (Clear); Bilirubin,Urine Negative (Negative); Blood,Urine Negative (Negative); Color,Urine Yellow; Glucose,Urine (UA) Negative (Negative); Hyaline Casts,Urine 10 /lpf (0-2); Ketones,Urine 2+ (Negative); Leukocyte Esterase,Urine Negative (Negative); Mucus,Urine Many /hpf; Nitrite,Urine Negative (Negative); PH, Urine 5.5 (5.0-8.0); Protein,Urine 1+ (Negative); RBC,Urine 1 /hpf (0-5); Specific Gravity,Urine 1.026 (1.001-1.035); Urobilinogen,Urine <2.0 mg/dL (<2.0); WBC,Urine 1 /hpf (0-5)
--- NOTE | 2022-04-11 12:50 | CT ---
EXAMINATION TYPE: CT abdomen pelvis w con DATE OF EXAM: 04/11/2022 COMPARISON: Prior CT July 07, 2016 HISTORY: vomiting x7 days r/o obstruction CT DLP: 750.7 mGycm, Automated Exposure Control for Dose Reduction was Utilized. CONTRAST: CT scan of the abdomen and pelvis is performed without oral but with IV Contrast, patient injected wi th 100 mL of Isovue 300. FINDINGS: LUNG BASES: No significant abnormality is appreciated. LIVER/GB: No significant abnormality is appreciated. PANCREAS: No significant abnormality is seen. SPLEEN: No significant abnormality is seen. ADRENALS: Slight thickening to left adrenal gland consistent with benign lipid rich hyperplasia is re demonstrated. KIDNEYS: Symmetric cortical medullary uptake and excretion without hydronephrosis seen bilaterally. S mall central simple parapelvic cyst lower pole left kidney redemonstrated. Left lateral diverticulum from the bladder axial image 68 redemonstrated. Bowel: Large size hiatal hernia or intrathoracic stomach redemonstrated with twisting similar to prio r. No suspicious small or large bowel dilatation. Mild wall thickening involving the right and transv erse colon on current study. Possible mild uncomplicated colitis versus product of poor distention. PROSTATE/SEMINAL VESICLES: Stable and mildly enlarged consistent with BPH. LYMPH NODES: No greater than 1cm abdominal or pelvic lymph nodes are appreciated. OSSEOUS STRUCTURES: Moderate disc space narrowing L3-L4 level [id number] disc space narrowing L 4-L5 level. Facet arthropathy in the lower lumbar spine. OTHER: Small fat-containing right inguinal hernia redemonstrated. Mild to moderate mixed plaque of th e distal abdominal aorta extends into iliac branch vessels IMPRESSION: Large sized hiatal hernia or intrathoracic stomach with abnormal twisting redemonstrated. No suspicious small or large bowel dilatation to suggest bowel obstruction. Possible mild uncomplica jamie colitis from hepatic flexure through the splenic flexure versus product of poor distention. Corre late clinically.
[2022-04-11] MEDS ORDERED: RX INFO: IV CONTRAST WAS GIVEN 1 EACH MISC MISCELLANE PRN (14:38)
[2022-04-11] MEDS ORDERED: NALOXONE 0.4 MG/ML 1 ML VIAL IV PRN (14:44)
[2022-04-11 15:33] LABS: African American GFR (CKD) >90 (>60 ml/min/1.73 sqM); Blood Urea Nitrogen 26 mg/dL (9-20); Non-African American GFR(CKD) 80 (>60 ml/min/1.73 sqM)
[2022-04-11] MEDS: DEXTROSE 5%-0.9% NACL 1,000 ML IV SCH (15:49)
--- NOTE | 2022-04-11 16:28 | P.CON ---
Consult Note - . Consult date: 04/11/22 Assessment/Plan:: 66-year-old male presents to the emergency department with a one-week history of difficulty getting food or liquids down. Patient states since eating dinner last Monday night, he is essentially regurgitated everything he has eaten. He was able to drink up until this weekend and starting this weekend he has not even been able to pass liquids. He did not vomit in the emergency department. He was given some IV fluids and some Zofran and following this he felt much better. He does have a history of esophageal dilatation for "" hernia. Previous medical history is significant for hypertension. He has a distant history of cigarette smoking. He quit after his father had open heart surgery many years ago. He is not in any current pain. Previous medical history as above. Previous surgical history includes Achilles tendon repair, shoulder surgery, EGD. Physical exam reveals a thin white male in no distress. It was equally reactive to light. Lung greer are clear. Heart rate and rhythm are regular without murmur rub or gallop. Abdomen is scaphoid soft and nontender with positive bowel sounds. There is no peripheral edema. Assessment: 66-year-old male with large paraesophageal hernia on computed tomography scan. Essentially the entire stomach is within the chest. There is evidence for passage of gas through the stomach into the small bowel so this does not appear to be completely obstructed however patient is obviously having significant difficulty with by mouth intake. Urgent surgery to reduce the hernia and repair the esophageal hiatus is indicated.
--- NOTE | 2022-04-11 17:11 | CT ---
EXAMINATION TYPE: CT chest w con DATE OF EXAM: 04/11/2022 COMPARISON: None HISTORY: hiatal hernia eval CT DLP: 312.8 mGycm Automated exposure control for dose reduction was used. CONTRAST: Performed with IV Contrast, patient injected with 100 mL of Isovue 300. Images obtained from the thoracic inlet to the diaphragm with the IV contrast. The lungs are clear of infiltrate. There is minimal subsegmental atelectasis left lung base. There is moderately large hiatal hernia with most of the stomach and a hiatal hernia. Heart size is normal. N o pericardial effusion. No mediastinal adenopathy. There are no hilar masses. There is normal contrast opacification of the p ulmonary arteries. No filling defect. The thoracic spine is intact. No compression fracture. Sternum is intact. IMPRESSION: Large hiatal hernia. No pulmonary consolidation. Normal heart.
[2022-04-12] MEDS: DEXTROSE 5%-0.9% NACL 1,000 ML IV SCH ×2 (04:07→05:12)
[2022-04-12 08:18] LABS: Basophils % (A) 0 %; Eosinophils % (A) 0 %; HCT 44.3 % (39.0-53.0); HGB 14.9 gm/dL (13.0-17.5); Lymphocytes # (A) 1.3 k/uL (1.0-4.8); Lymphocytes % (A) 16 %; MCH 31.9 pg (25.0-35.0); MCHC 33.6 g/dL (31.0-37.0); MCV 95.1 fL (80.0-100.0); Mean Platelet Volume 8.7; Monocytes # (A) 0.6 k/uL (0-1.0); Monocytes % (A) 8 %; Neutrophils # (A) 5.9 k/uL (1.3-7.7); Neutrophils % (A) 73 %; Platelet Count 268 k/uL (150-450); RBC 4.66 m/uL (4.30-5.90); RDW 12.5 % (11.5-15.5); WBC 8.1 k/uL (3.8-10.6)
[2022-04-12 08:34] LABS: ALT 17 U/L (4-49); AST 23 U/L (17-59); African American GFR (CKD) >90 (>60 ml/min/1.73 sqM); Albumin 4.1 g/dL (3.5-5.0); Albumin/Globulin Ratio 1.8; Alkaline Phosphatase 65 U/L (38-126); Anion Gap 4 mmol/L; Blood Urea Nitrogen 21 mg/dL (9-20); Calcium 8.9 mg/dL (8.4-10.2); Carbon Dioxide 33 mmol/L (22-30); Chloride 103 mmol/L (98-107); Globulin 2.3 g/dL; Glucose 122 mg/dL (74-99); Non-African American GFR(CKD) >90 (>60 ml/min/1.73 sqM); Potassium 4.3 mmol/L (3.5-5.1); Sodium 140 mmol/L (137-145); Total Bilirubin 0.8 mg/dL (0.2-1.3); Total Protein 6.4 g/dL (6.3-8.2)
[2022-04-12 08:40] LABS: Partial Thromboplastin Time 22.5 sec (22.0-30.0); Prothrombin Time 10.5 sec (9.0-12.0)
[2022-04-12] MEDS ORDERED: IV FLUID CONTINUATION 1,000 ML IV ONE (09:04)
[2022-04-12] MEDS ORDERED: ONDANSETRON 4 MG/2 ML VIAL ONE (09:50)
[2022-04-12] MEDS ORDERED: DEXAMETHASONE SOD PHOSPHATE 4 MG/ML 1 ML VIAL IV ONE (09:51)
[2022-04-12] MEDS ORDERED: ONDANSETRON 4 MG/2 ML VIAL IVP ONE (09:51)
[2022-04-12] MEDS ORDERED: HEPARIN SODIUM,PORCINE/PF 5,000 UNIT/0.5 ML SYRINGE SQ ONE (10:23)
[2022-04-12] MEDS ORDERED: HEPARIN SODIUM,PORCINE 5,000 UNIT/ML 1 ML VIAL SQ ONE (10:23)
[2022-04-12] MEDS ORDERED: GLYCOPYRROLATE 0.2 MG/ML 2 ML VIAL ONE (11:01)
[2022-04-12] MEDS ORDERED: HYDROmorphone (PF) 1 MG/ML ONE (11:01)
[2022-04-12] MEDS ORDERED: ROCURONIUM 10 MG/ML (5 ML VIAL) IV ONE (11:01)
[2022-04-12] MEDS ORDERED: fentaNYL (PF) 50 MCG/ML 2 ML AMP ONE (11:01)
[2022-04-12] MEDS ORDERED: METOPROLOL TARTRATE 5 MG/5 ML VIAL IVP ONE (11:01)
[2022-04-12] MEDS ORDERED: LIDOCAINE 2% INJ 20 MG/ML (2 ML VIAL) ONE (11:01)
[2022-04-12] MEDS ORDERED: SUCCINYLCHOLINE CHLORIDE 200 MG/10 ML VIAL IV ONE (11:01)
[2022-04-12] MEDS ORDERED: MIDAZOLAM 2 MG/2 ML VIAL ONE (11:01)
[2022-04-12] MEDS ORDERED: PHENYLEPHRINE-0.9% NACL SYG 1,000 MCG/10 ML SYRINGE ONE (11:01)
[2022-04-12] MEDS ORDERED: PROPOFOL 10 MG/ML 20 ML VIAL IV ONE (11:01)
[2022-04-12] MEDS ORDERED: NEOSTIGMINE 1 MG/ML 10 ML VIAL ONE (11:01)
[2022-04-12] MEDS ORDERED: SODIUM CHLORIDE 0.9% 50 ML with ceFAZolin 2,000 MG IV ONE ×2 (11:10)
[2022-04-12] MEDS ORDERED: BUPIVACAINE (PF) 0.25% 30 ML VIAL SQ ONE (12:05)
[2022-04-12] MEDS ORDERED: LACTATED RINGERS 1,000 ML IV ONE (14:49)
--- NOTE | 2022-04-12 15:32 | P.OP ---
Date of Procedure: 04/12/22 Preoperative Diagnosis: Incarcerated para-esophageal hernia GERD Hx of esophageal stricture Postoperative Diagnosis: Same Procedure(s) Performed: 1. Esophagogastroduodenoscopy 2. Robotic assisted par-esophageal hernia repair (Type 3) 3. Frederick Fundoplication Anesthesia: CHANCE Surgeon: Zack Cunningham Manager Sales #1: Davin Mccray Manager Sales #2: Javi Yun Estimated Blood Loss (ml): 50 Pathology: none sent Condition: stable Disposition: PACU Indications for Procedure: This patient is a 66 year-old male with a history of GERD and esophageal stricture s/p multiple dilations in the past who presented to the ED with dysphagia and inability to tolerate PO. The patient underwent CT scan which showed incarcerated para-esophageal hernia. Reduction and repair was recommended and the patient understood the risks, benefits and alternatives. Informed consent was obtained. Operative Findings: Para-esophageal hernia Type 3 with stomach in left chest + sliding hernia Description of Procedure: The patient was brought to the operating room and placed in the supine position. General anesthesia was induced and he was intubated with a single lumen tube. EGD was performed which showed a significant portion of the stomach above the hiatus. The entire esophagus appeared normal without evidence of stricture or masses. I did not notice any stigmata of Olmedo's esophagus. I was able to traverse the haitus all the way down to the first portion of the duodenum. This was all normal appearing. The patient left side was bumped and the abdomen was prepped and draped in the usual sterile fashion. Antibiotics were given. I made a small incision in the left upper quadrant and gained entry into the abdomen using a 5mm optiview port. We insufflated the abdomen to 25mm Hg and placed 4 addition 8 mm robotic ports near the umbilus, paramedian x 2 and left upper quadrant. An additional 12mm staff physical therapy assistant port was placed between the camera (umbilicus) and left para-median port. I then created a tract in the sub-xiphoid region with a 5mm port and placed the ana liver retractor. A tip up, vessel sealer and fenestrated bipolar was inserted under vision and the 30 degree robotic camera was utilized and the xi [employer] robot was docked. I began by dissecting the pars flaccida using the vessel sealer. This was carried towards the haitus and the left and right cara was identified. Care was taken to not divide the right gastric artery which was in the vacinity. I used the vessel sealer to circumferentially dissect around the hernia sac and reduce the stomach into the abdominal cavity. Once this was done, I divided the short gastrics with the vessel sealer around the greater curve. I then placed a kyle drain around the esophagus and tied it to itself with a silk suture. This was used for retraction. I then loosely closed the haitus with multiple #1 ethibond sutures posteriorly and two sutures anteriorly. The haitus came together nicely. I then wrapped the cardia of the stomach around the esophagus to create a ferderick fundoplication. The stomach was anchored to itself using 2-0 silk x 3 to complete the wrap. I then removed the ana retractor and placed a marcelo drain through this incision and directed it towards the haitus. The robot was un- docked and the staff physical therapy assistant port fascia was closed with a 0-vicryl. All of the other incisions were closed with 4-0 monocryl and glue. Completion EGD revealed good reduction of the hernia without any evidence of violation of the esophagus or stomach. A ngt was guided into the stomach and the patient was awaken from anesthesia and extubated.
[2022-04-12] MEDS ORDERED: HYDROmorphone 0.5 MG/0.5 ML SYRINGE IVP ONE ×5 (15:36→16:23)
[2022-04-12] MEDS ORDERED: HYDROmorphone 1 MG/ML 1 ML SYRINGE IVP PRN (15:36)
[2022-04-12] MEDS ORDERED: ONDANSETRON 4 MG/2 ML VIAL IVP PRN (15:36)
[2022-04-12] MEDS ORDERED: KETOROLAC 15 MG/ML 1 ML VIAL IVP ONE (15:38)
[2022-04-12] MEDS ORDERED: ACETAMINOPHEN IV (For NPO) 1,000 MG/100 ML VIAL IVPB ONE (15:40)
--- NOTE | 2022-04-12 16:09 | XR ---
EXAMINATION TYPE: XR chest 1V portable DATE OF EXAM: 04/12/2022 4:03 PM COMPARISON: Chest radiographs from 01/14/2021 TECHNIQUE: XR chest 1V portable Portable AP radiograph of the chest. CLINICAL INDICATION:Male, 66 years old with history of SURGICAL; FINDINGS: Lungs/Pleura: There is no evidence of pleural effusion, focal consolidation, or pneumothorax. Pulmonary vascularity: Unremarkable. Heart/mediastinum: Cardiomediastinal silhouette is unremarkable. Musculoskeletal: No acute osseous pathology. Other findings: Subcutaneous emphysema scattered throughout the visualized thorax. Lines/tubes: nasogastric tube with distal tip and side-port in appropriate position. Suspected upper abdomen surgical drain noted. IMPRESSION: 1. Extensive subcutaneous emphysema throughout the exam. 2. Nasogastric tube in appropriate position.
[2022-04-12] MEDS ORDERED: METOPROLOL TARTRATE 5 MG/5 ML VIAL IVP PRN (17:30)
[2022-04-12] MEDS: KETOROLAC 15 MG/ML 1 ML VIAL IVP SCH ×2 (17:50→23:11)
[2022-04-12] MEDS: ACETAMINOPHEN IV (For NPO) 1,000 MG in EMPTY BAG 1 BAG IVPB SCH ×2 (17:51→23:12)
[2022-04-12] MEDS: HEPARIN SODIUM,PORCINE/PF 5,000 UNIT/0.5 ML SYRINGE SQ SCH ×2 (17:52→23:12)
[2022-04-12] MEDS: D5-0.45% NACL WITH KCL 20MEQ/L 1,000 ML IV SCH (18:17)
[2022-04-12] MEDS: HYDROmorphone 0.5 MG/0.5 ML SYRINGE IVP PRN (20:32)
[2022-04-12] MEDS ORDERED: lisinopriL 5 MG TAB PO SCH (20:45)
--- NOTE | 2022-04-12 20:45 | P.HPIM ---
History of Present Illness H&P Date: 04/12/22 Chief Complaint: Nausea and vomiting Patient is a 66-year-old male with a known history of multiple previous esophageal dilations for benign stricture, coronary arteries with history of cardiac catheterization, asthma, history of CVA/TIA, migraine headaches, hypertension, GERD, anxiety/depression marijuana use presents to ER with complaints of nausea and vomiting for the past 1 week. Patient is unable to take any solid diet. Patient is trying to hydrate with water but keeps regurgitation.. Patient is also having constipation issues. Last bowel movement 2 days ago. Otherwise denied any complaints of chest pain. No shortness of breath.. No cough or sputum production. CT abdomen abdomen pelvis showed large sized hiatal hernia or intrathoracic stomach with abnormal twisting. Remonstrated. No suspicious small or large bowel dilatation to suggest bowel obstruction. Possible mild uncomplicated colitis from hepatic flexure pathology splenic flexure versus Food distention. KUB x-ray on admission showed nonspecific abdominal. Few prominent small bowel loops in the upper abdomen correlate for ileitis enteritis. Partial obstruction patent entirely excluded. There is a large hiatal hernia. CT chest showed large hiatal hernia. No pulmonary consolidation. Normal heart. Patient was seen by general surgeon immediately taken to the OR for surgical repair of paraesophageal hernia. Laboratory showed WBC 11.7 hemoglobin 17.3 and platelets 319 Sodium 139 potassium 4.0 chloride 98 bicarb 27 BUN 28 and creatinine 1.1 and blood sugar is 156 Urinalysis is negative for infection Review of Systems Constitutional: Patient denies any fever or chills . No generalized weakness or weight loss. Abdomen: Patient does have nausea and vomiting and epigastric abdominal discomfort. No diarrhea.. Cardiovascular: Patient denies any chest pain or short of breath no palpitations. Respiratory: patient denied any cough is from production. No shortness of breath Neurologic: Patient denied any numbness or tingling headache. Musculoskeletal: Patient denies any complaints of joint swelling or deformity. Skin: Negative Psychiatric: Negative Endocrine: No heat or cold intolerance. No recent weight gain. Genitourinary: No dysuria or hematuria. All other 14 point ROS negative except the above Past Medical History Past Medical History: Asthma, Coronary Artery Disease (CAD), Chest Pain / Angina, CVA/TIA, GERD/Reflux, Hypertension, Pneumonia, Rheumatoid Arthritis (RA) Additional Past Medical History / Comment(s): MIGRAINES, HEART MURMUR, hx HIATAL HERNIA, ANEMIA, one dr told him he had a stroke at one time-no effects, varicose veins History of Any Multi-Drug Resistant Organisms: None Reported Past Surgical History: Heart Catheterization, Hernia Repair, Orthopedic Surgery Additional Past Surgical History / Comment(s): Lt achilles tendon,RT SHOULDER surgery, RT ACHILLES TENDON reattached, HEMORRHOIDECTOMY, 13 FATTY TUMORS removed. left hand index finger surgery after injury, EGD WITH DILATION, surgery to repair hiatal hernia Past Anesthesia/Blood Transfusion Reactions: No Reported Reaction Additional Past Anesthesia/Blood Transfusion Reaction / Comment(s): no hx blood transfusion Past Psychological History: Anxiety, Depression Smoking Status: Unknown if ever smoked Past Alcohol Use History: None Reported Additional Past Alcohol Use History / Comment(s): QUIT SMOKING 1999, APPROX SMOKED 20 YRS, 1-2PPD. pt states hx alcoholism Past Drug Use History: Marijuana Additional Drug Use History / Comment(s): CURRENTLY USES MARIJUANA 1-2 times per week-informed to refrain from use for at least 24 hours prior to procedure - Past Family History Mother Family Medical History: Cancer Father Additional Family Medical History / Comment(s): thinks aneurysm Medications and Allergies Home Medications Medication Instructions Recorded Confirmed Type Metoprolol Tartrate [Lopressor] 12.5 mg PO BID 08/20/18 04/11/22 History Albuterol Sulfate [Proair Hfa] 2 puff INHALATION RT-Q6H PRN 08/06/20 04/11/22 History Omeprazole 20 mg PO BID 08/06/20 04/11/22 History Pravastatin Sodium [Pravachol] 20 mg PO HS 08/06/20 04/11/22 History lisinopriL [Zestril] 5 mg PO DAILY 08/06/20 04/11/22 History Nitroglycerin Sl Tabs [Nitrostat] 0.4 mg SUBLINGUAL Q5M PRN #30 tab 08/07/20 04/11/22 Rx Magnesium 500 mg PO HS 01/14/21 04/11/22 History Ondansetron [Zofran ODT] 4 mg PO Q8HR PRN #15 tab 01/14/21 04/11/22 Rx Allergies Allergy/AdvReac Type Severity Reaction Status Date / Time No Known Allergies Allergy Verified 04/11/22 13:48 Physical Exam Vitals: Vital Signs Temp Pulse Pulse Resp BP BP Pulse Ox 04/12/22 09:03 97.1 F L 71 16 141/80 96 04/12/22 07:48 98.2 F 81 17 139/73 96 04/12/22 02:00 97.9 F 71 16 112/69 97 04/11/22 19:34 97.3 F L 71 19 125/76 97 04/11/22 18:00 76 18 137/83 95 04/11/22 12:47 78 18 148/106 99 Intake and Output 04/11/22 04/12/22 04/12/22 22:59 06:59 14:59 Intake Total 996 Balance 996 Intake: Intake, IV Titration 996 Amount Dextrose 5%-0.9% NaCl 1, 996 000 ml @ 83 mls/hr IV . Q12H3M GIRISH Rx#:[id number] Oral 0 Other: # Voids 3 Weight 68.039 kg PHYSICAL EXAMINATION: Patient is lying in the bed comfortably, no acute distress, awake alert and oriented.. HEENT: Normocephalic. Neck is supple. Pupils reactive. Nostrils clear. Oral cavity is moist. Neck reveals no JVD, carotid bruits, or thyromegaly. CHEST EXAMINATION: Trachea is central. Symmetrical expansion. Lung greer clear to auscultation and percussion. CARDIAC: Normal S1, S2 with no gallops. No murmurs ABDOMEN: Soft. Bowel sounds present. Surgical site bandaged. No organomegaly. No abdominal bruits. Extremities: reveal no edema. No clubbing or cyanosis Neurologically awake, alert, oriented x3 with well-coordinated movements. No focal deficits noted Skin: No rash or skin lesions. Psychiatric: Coperative. Nonsuicidal Musculoskeletal: No joint swelling or deformity. Normal range of motion. Results CBC & Chem 7: 04/13/22 07:34 04/13/22 07:34 Labs: Abnormal Lab Results - Last 24 Hours (Table) 04/11/22 04/11/22 04/11/22 Range/Units 10:41 12:11 15:08 Carbon Dioxide (22-30) mmol/L BUN 28 H 26 H (9-20) mg/dL Glucose 156 H (74-99) mg/dL Albumin 5.2 H (3.5-5.0) g/dL Urine Protein 1+ H (Negative) Urine Ketones 2+ H (Negative) Amorphous Sediment Occasional H (None) /hpf Hyaline Casts 10 H (0-2) /lpf Urine Mucus Many H (None) /hpf 04/12/22 Range/Units 07:52 Carbon Dioxide 33 H (22-30) mmol/L BUN 21 H (9-20) mg/dL Glucose 122 H (74-99) mg/dL Albumin (3.5-5.0) g/dL Urine Protein (Negative) Urine Ketones (Negative) Amorphous Sediment (None) /hpf Hyaline Casts (0-2) /lpf Urine Mucus (None) /hpf Thrombosis Risk Factor Assmnt - DVT/VTE Prophylaxis DVT/VTE Prophylaxis: Pharmacologic Prophylaxis ordered - Choose All That Apply Each Risk Factor Represents 2 Points: Age 61-74 years, Laparoscopic surgery, Major surgery Thrombosis Risk Factor Assessment Total Risk Factor Score: 6 Thrombosis Risk Factor Assessment Level: High Risk Assessment and Plan Assessment: Large paraesophageal hernia with entire stomach within the chest. Nausea vomiting and unable to tolerate oral diet. History of multiple esophageal dilation due to benign stricture. Coronary artery disease. Hypertension GERD From diabetes Asthma not in exacerbation Anxiety/depression Marijuana use twice daily weekly. DVT prophylaxis and GI prophylaxis Plan: Patient declined an IV hydration method by mouth. General surgery is planning for surgical repair of paraesophageal hernia. Continued home blood pressure medications including lisinopril and metoprolol. DuoNebs as needed. General surgery is on board. Continue with GI and DVT prophylaxis. Follow-up closely. Time with Patient: Greater than 30
[2022-04-12] MEDS ORDERED: PRAVASTATIN SODIUM 20 MG TAB PO SCH (21:00)
[2022-04-12] MEDS ORDERED: METOPROLOL TARTRATE 12.5 MG TAB PO SCH (21:00)
[2022-04-13] MEDS: HYDROmorphone 0.5 MG/0.5 ML SYRINGE IVP PRN (04:26)
[2022-04-13] MEDS: ACETAMINOPHEN IV (For NPO) 1,000 MG in EMPTY BAG 1 BAG IVPB SCH (06:30)
[2022-04-13] MEDS: KETOROLAC 15 MG/ML 1 ML VIAL IVP SCH ×4 (06:30→23:16)
[2022-04-13] MEDS: D5-0.45% NACL WITH KCL 20MEQ/L 1,000 ML IV SCH (06:53)
[2022-04-13] MEDS ORDERED: METOCLOPRAMIDE 5 MG/ML 2 ML VIAL IVP PRN (07:05)
[2022-04-13] MEDS ORDERED: METOPROLOL TARTRATE 5 MG/5 ML VIAL IVP SCH (07:15)
[2022-04-13 08:02] LABS: Basophils % (A) 0 %; Eosinophils % (A) 0 %; HCT 42.9 % (39.0-53.0); HGB 14.2 gm/dL (13.0-17.5); Lymphocytes # (A) 0.9 k/uL (1.0-4.8); Lymphocytes % (A) 7 %; MCH 31.8 pg (25.0-35.0); MCV 96.3 fL (80.0-100.0); Mean Platelet Volume 9.3; Monocytes # (A) 0.7 k/uL (0-1.0); Monocytes % (A) 5 %; Neutrophils # (A) 11.2 k/uL (1.3-7.7); Neutrophils % (A) 86 %; Platelet Count 227 k/uL (150-450); RBC 4.46 m/uL (4.30-5.90); RDW 12.9 % (11.5-15.5); WBC 13.1 k/uL (3.8-10.6)
[2022-04-13 08:11] LABS: ALT 623 U/L (4-49); AST 745 U/L (17-59); African American GFR (CKD) >90 (>60 ml/min/1.73 sqM); Albumin 3.8 g/dL (3.5-5.0); Alkaline Phosphatase 65 U/L (38-126); Anion Gap 8 mmol/L; Blood Urea Nitrogen 26 mg/dL (9-20); Calcium 8.2 mg/dL (8.4-10.2); Carbon Dioxide 30 mmol/L (22-30); Chloride 102 mmol/L (98-107); Glucose 98 mg/dL (74-99); Non-African American GFR(CKD) >90 (>60 ml/min/1.73 sqM); Potassium 3.4 mmol/L (3.5-5.1); Sodium 140 mmol/L (137-145); Total Bilirubin 0.6 mg/dL (0.2-1.3); Total Protein 5.9 g/dL (6.3-8.2)
[2022-04-13] MEDS: PANTOPRAZOLE 40 MG/10 ML VIAL IVP SCH (08:30)
[2022-04-13] MEDS: HEPARIN SODIUM,PORCINE/PF 5,000 UNIT/0.5 ML SYRINGE SQ SCH ×3 (08:31→23:18)
--- NOTE | 2022-04-13 08:41 | XR ---
EXAMINATION TYPE: XR chest 1V portable DATE OF EXAM: 04/13/2022 COMPARISON: 04/12/2002 HISTORY: Postop TECHNIQUE: Single frontal view of the chest is obtained. FINDINGS: There is diffuse subcutaneous emphysema which is improved from prior exam. NG tube seen ex tending in the stomach. There is a suspected surgical drain in the left abdomen. Bilateral lower lobe infiltrate and small effusion. No sizable pneumothorax. Arthropathy of the shoulders. Heart size sta ble. Hypertrophic change of the spine. IMPRESSION: 1. Diffuse subcutaneous edema is improved. Cannot exclude a component of pneumomediastinum. 2. Bilateral lower lobe infiltrate and small effusion stable.
--- NOTE | 2022-04-13 09:17 | P.PN ---
Subjective Progress Note Date: 04/13/22 Principal diagnosis: Incarcerated paraesophageal hernia, GERD. 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 He does complain of some abdominal discomfort from being sat up suddenly for chest x-ray, otherwise states pain medication is controlling his pain adequately, denies shortness of breath. Denies any nausea. NG tube present with 200 mL brown liquid overnight, EJ drain present with 75 mL serosanguineous drainage overnight. No bile present in the NG tube drainage. No other new concerns. Objective - Vital Signs Vital signs: Vital Signs Temp 97.9 F 04/13/22 04:00 Pulse 70 04/13/22 04:00 Resp 18 04/13/22 04:00 BP 154/93 04/13/22 04:00 Pulse Ox 96 04/13/22 04:00 FiO2 Intake & Output 04/12/22 04/13/22 04/13/22 18:59 06:59 18:59 Intake Total 1050 600 0 Output Total 50 560 Balance 1000 40 0 Intake: IV 1050 Intake, IV Titration 600 Amount D5-0.45% NaCl with KCl 600 20Meq/l 1,000 ml @ 75 mls /hr IV .[id number] GIRISH Rx#: [id number] Oral 0 0 Output: Gastric Drainage 200 Drainage 110 Abdomen 110 Urine 0 250 Estimated Blood Loss 50 Other: Voiding Method Urinal Urinal # Voids 1 - Exam CONSTITUTIONAL: Appears comfortable, cooperative, no acute distress RESPIRATORY: Lungs sounds diminished bilaterally. Respirations even, nonlabored. Currently on room air with oxygen saturation 96%. Strong cough. CARDIOVASCULAR: S1, S2 present. Regular rate and rhythm, sinus rhythm on telemetry. Palpable peripheral pulses bilaterally. No edema present. No calf pain or tenderness noted. SCDs present. GASTROINTESTINAL: Abdomen soft, slightly tender, slightly distended. Hypoactive bowel sounds present 4 quadrants. NG tube present to continuous suction, 200 mL brown liquid removed since surgery. EJ drain present to mid abdomen, 75 mL serosanguineous drainage since surgery. Abdominal binder present GENITOURINARY: Continues to void INTEGUMENTARY: Skin is warm and dry NEUROLOGIC: Cranial nerves II through XII intact MUSKULOSKELETAL: Able to move all extremities, strength equal bilaterally PSYCHIATRIC: Alert and oriented to person place and time, appropriate affect, intact judgment and insight - Allied health notes Allied health notes reviewed: nursing - Labs CBC & Chem 7: 04/13/22 07:34 04/13/22 07:34 Labs: Abnormal Lab Results - Last 24 Hours (Table) 04/13/22 04/13/22 Range/Units 07:34 07:34 WBC 13.1 H (3.8-10.6) k/uL Neutrophils # 11.2 H (1.3-7.7) k/uL Lymphocytes # 0.9 L (1.0-4.8) k/uL Potassium 3.4 L (3.5-5.1) mmol/L BUN 26 H (9-20) mg/dL Calcium 8.2 L (8.4-10.2) mg/dL AST 745 H (17-59) U/L ALT 623 H (4-49) U/L Total Protein 5.9 L (6.3-8.2) g/dL - Imaging and Cardiology Chest x-ray: report reviewed, image reviewed Assessment and Plan Assessment: 1. Incarcerated paraesophageal hernia, status post EGD, robotic-assisted paraesophageal hernia repair, Frederick fundoplication 2. GERD 3. History of esophageal stricture with multiple dilations 4. History of CAD 5. History of CVA 6. Hypertension 7. Rheumatoid arthritis 8. Previous tobacco dependence 9. Occasional marijuana use 10. Anxiety/depression Plan: 1. NG tube to be discontinued. Patient to be started on clear liquid diet with no carbonated beverage 2. Continue EJ drain to bulb suction, monitor output 3. Will transition some medications to oral 4. Encourage incentive spirometry use 10 times every hour while awake 5. GI/DVT prophylaxis 6. Pain control with current medication regimen 7. Will monitor daily labs and x-rays 8. Medical management of other comorbidities per primary care 9. More recommendations to follow
[2022-04-13] MEDS: METOPROLOL TARTRATE 12.5 MG TAB PO SCH (20:02)
[2022-04-14] MEDS: KETOROLAC 15 MG/ML 1 ML VIAL IVP SCH ×4 (05:53→23:44)
--- NOTE | 2022-04-14 07:49 | P.PN ---
Subjective Progress Note Date: 04/14/22 Principal diagnosis: Incarcerated paraesophageal hernia, GERD. 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 Does complain of some mild abdominal discomfort although he has taken no pain medications in 24 hours, denies shortness of breath. Denies any nausea. NG tube discontinued yesterday and patient was placed on clear liquid diet which he has tolerated very well. Abdominal EJ drain present, 215 mL serosanguineous drainage last 24 hours. Patient has been ambulatory without difficulty. No other new concerns. Objective - Vital Signs Vital signs: Vital Signs Temp 99.0 F 04/14/22 03:18 Pulse 70 04/14/22 03:18 Resp 18 04/14/22 03:18 BP 144/82 04/14/22 03:18 Pulse Ox 94 L 04/14/22 03:18 FiO2 Intake & Output 04/13/22 04/14/22 04/14/22 18:59 06:59 18:59 Intake Total 640 1250 Output Total 335 1530 Balance 305 -280 Intake: Oral 640 1250 Output: Drainage 35 180 Abdomen 35 180 Urine 300 1350 Other: Voiding Method Urinal Toilet Urinal # Voids 1 1 # Bowel Movements 0 1 - Exam CONSTITUTIONAL: Appears comfortable, cooperative, no acute distress RESPIRATORY: Lungs sounds diminished bilaterally. Respirations even, nonlabored. Currently on room air with oxygen saturation 94%. Strong cough. Able to achieve 1500 mL on his incentive spirometry CARDIOVASCULAR: S1, S2 present. Regular rate and rhythm, sinus rhythm on telemetry. Palpable peripheral pulses bilaterally. No edema present. No calf pain or tenderness noted. SCDs present. GASTROINTESTINAL: Abdomen soft, slightly tender, nondistended. Active bowel sounds present 4 quadrants. EJ drain present to mid abdomen, 90 mL serosanguineous drainage overnight, 215 mL in the last 24 hours. Abdominal bin ledy present. Positive bowel movement 04/13 GENITOURINARY: Continues to void INTEGUMENTARY: Skin is warm and dry NEUROLOGIC: Cranial nerves II through XII intact MUSKULOSKELETAL: Able to move all extremities, strength equal bilaterally PSYCHIATRIC: Alert and oriented to person place and time, appropriate affect, intact judgment and insight - Allied health notes Allied health notes reviewed: nursing - Labs CBC & Chem 7: 04/14/22 07:47 04/14/22 07:47 Labs: Abnormal Lab Results - Last 24 Hours (Table) 04/13/22 04/13/22 Range/Units 07:34 07:34 WBC 13.1 H (3.8-10.6) k/uL Neutrophils # 11.2 H (1.3-7.7) k/uL Lymphocytes # 0.9 L (1.0-4.8) k/uL Potassium 3.4 L (3.5-5.1) mmol/L BUN 26 H (9-20) mg/dL Calcium 8.2 L (8.4-10.2) mg/dL AST 745 H (17-59) U/L ALT 623 H (4-49) U/L Total Protein 5.9 L (6.3-8.2) g/dL - Imaging and Cardiology Chest x-ray: image reviewed Assessment and Plan Assessment: 1. Incarcerated paraesophageal hernia, status post EGD, robotic-assisted paraesophageal hernia repair, Frederick fundoplication 2. GERD 3. History of esophageal stricture with multiple dilations 4. History of CAD 5. History of CVA 6. Hypertension 7. Rheumatoid arthritis 8. Previous tobacco dependence 9. Occasional marijuana use 10. Anxiety/depression 11. Elevated transaminases Plan: 1. Continue clear liquid diet with no carbonated beverage, will transition to soft diet 2. Will discontinue EJ drain, continue abd binder 3. Encourage incentive spirometry use 10 times every hour while awake 4. GI/DVT prophylaxis 5. Pain control with current medication regimen 6. Will monitor daily labs and x-rays 7. Medical management of other comorbidities per primary care 8. More recommendations to follow
--- NOTE | 2022-04-14 08:10 | XR ---
EXAMINATION TYPE: XR chest 1V portable DATE OF EXAM: 04/14/2022 COMPARISON: 04/13/2022 HISTORY: Postop TECHNIQUE: Single frontal view of the chest is obtained. FINDINGS: There is diffuse subcutaneous emphysema which is improved from prior exam. NG tube has bee n removed. There is a suspected surgical drain in the left abdomen. Bilateral lower lobe infiltrate a nd small effusion. There is an approximate 5% right apical pneumothorax. Arthropathy of the shoulders . Heart size stable. Hypertrophic change of the spine. IMPRESSION: 1. Approximately 5% right apical thorax new from prior exam. 2. diffuse subcutaneous emphysema.
[2022-04-14] MEDS: METOPROLOL TARTRATE 12.5 MG TAB PO SCH ×2 (08:24→20:37)
[2022-04-14] MEDS: HYDROcodone/APAP 15 ML SOLUTION PO PRN ×2 (08:25→14:02)
[2022-04-14] MEDS: PANTOPRAZOLE 40 MG/10 ML VIAL IVP SCH (08:25)
[2022-04-14] MEDS: HEPARIN SODIUM,PORCINE/PF 5,000 UNIT/0.5 ML SYRINGE SQ SCH ×3 (08:25→23:45)
[2022-04-14 08:34] LABS: HGB 14.8 gm/dL (13.0-17.5); MCH 32.9 pg (25.0-35.0); MCHC 34.4 g/dL (31.0-37.0); MCV 95.4 fL (80.0-100.0); Mean Platelet Volume 10.1; Platelet Count 191 k/uL (150-450); RDW 12.6 % (11.5-15.5); WBC 10.1 k/uL (3.8-10.6)
[2022-04-14 08:52] LABS: ALT 679 U/L (4-49); AST 623 U/L (17-59); African American GFR (CKD) >90 (>60 ml/min/1.73 sqM); Albumin 3.9 g/dL (3.5-5.0); Alkaline Phosphatase 76 U/L (38-126); Anion Gap 6 mmol/L; Blood Urea Nitrogen 15 mg/dL (9-20); Calcium 8.2 mg/dL (8.4-10.2); Carbon Dioxide 29 mmol/L (22-30); Chloride 98 mmol/L (98-107); Glucose 157 mg/dL (74-99); Non-African American GFR(CKD) >90 (>60 ml/min/1.73 sqM); Potassium 3.8 mmol/L (3.5-5.1); Sodium 133 mmol/L (137-145); Total Bilirubin 0.7 mg/dL (0.2-1.3); Total Protein 6.2 g/dL (6.3-8.2)
[2022-04-14] MEDS: lisinopriL 5 MG TAB PO SCH (12:24)
[2022-04-14] MEDS ORDERED: DOCUSATE 100 MG CAP PO SCH (21:00)
[2022-04-15 00:16] VITALS: RESP 16
[2022-04-15] MEDS: KETOROLAC 15 MG/ML 1 ML VIAL IVP SCH ×2 (06:09→11:51)
[2022-04-15 07:54] LABS: HCT 41.5 % (39.0-53.0); HGB 13.7 gm/dL (13.0-17.5); MCH 31.6 pg (25.0-35.0); MCV 95.5 fL (80.0-100.0); Mean Platelet Volume 9.1; Platelet Count 204 k/uL (150-450); RBC 4.35 m/uL (4.30-5.90); RDW 12.3 % (11.5-15.5); WBC 8.7 k/uL (3.8-10.6)
[2022-04-15 08:00] VITALS: BP 130/63; PULSE 91; TEMP 96.6
[2022-04-15 08:07] LABS: ALT 483 U/L (4-49); African American GFR (CKD) >90 (>60 ml/min/1.73 sqM); Anion Gap 8 mmol/L; Blood Urea Nitrogen 13 mg/dL (9-20); Carbon Dioxide 25 mmol/L (22-30); Chloride 102 mmol/L (98-107); Glucose 117 mg/dL (74-99); Non-African American GFR(CKD) >90 (>60 ml/min/1.73 sqM); Sodium 135 mmol/L (137-145); Total Bilirubin 0.9 mg/dL (0.2-1.3)
--- NOTE | 2022-04-15 08:10 | XR ---
EXAMINATION TYPE: XR chest 2V DATE OF EXAM: 04/15/2022 COMPARISON: 04/14/2022 TECHNIQUE: PA and lateral views submitted. HISTORY: . Postoperative FINDINGS: There is diffuse subcutaneous emphysema which is improved from prior exam. NG tube has been removed. There is a suspected surgical drain in the left abdomen. Bilateral lower lobe infiltrate and small ef fusion. There is an approximate 5% right apical pneumothorax. Arthropathy of the shoulders. Heart siz e stable. Hypertrophic change of the spine. IMPRESSION: 1. Stable 5% right apical pneumothorax with diffuse osteopenia. 2. Persistent bilateral lower lobe infiltrates..
[2022-04-15 08:12] LABS: Potassium 4.4 mmol/L (3.5-5.1)
[2022-04-15 08:13] LABS: AST 276 U/L (17-59); Albumin 3.6 g/dL (3.5-5.0); Alkaline Phosphatase 63 U/L (38-126)
[2022-04-15] MEDS: METOPROLOL TARTRATE 12.5 MG TAB PO SCH (08:13)
[2022-04-15] MEDS: PANTOPRAZOLE 40 MG/10 ML VIAL IVP SCH (08:13)
[2022-04-15] MEDS: HEPARIN SODIUM,PORCINE/PF 5,000 UNIT/0.5 ML SYRINGE SQ SCH ×2 (08:13→11:51)
--- NOTE | 2022-04-15 08:55 | P.PN ---
Subjective Progress Note Date: 04/15/22 Principal diagnosis: Incarcerated paraesophageal hernia, GERD. 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 States mild abdominal discomfort well controlled on current medication regimen, denies shortness of breath. Denies any nausea. Place on soft diet which he has tolerated very well. Abdominal EJ drain discontinued yesterday, abdominal binder remains in place. Patient has been ambulatory without difficulty. Patient is anxious to go home. No other new concerns. Objective - Vital Signs Vital signs: Vital Signs Temp 96.6 F L 04/15/22 07:58 Pulse 91 04/15/22 07:58 Resp 16 04/15/22 07:58 BP 130/63 04/15/22 07:58 Pulse Ox 97 04/15/22 07:58 FiO2 Intake & Output 04/14/22 04/15/22 04/15/22 18:59 06:59 18:59 Intake Total 1440 480 236 Output Total 900 Balance 540 480 236 Intake: Oral 1440 480 236 Output: Drainage 50 Abdomen 50 Urine 850 Other: Voiding Method Toilet Toilet Urinal Urinal # Voids 6 # Bowel Movements 0 - Exam CONSTITUTIONAL: Appears comfortable, cooperative, no acute distress RESPIRATORY: Lungs sounds diminished bilaterally. Respirations even, nonlabored. Currently on room air with oxygen saturation 96%. Strong cough. Able to achieve 1750 mL on his incentive spirometry CARDIOVASCULAR: S1, S2 present. Regular rate and rhythm, sinus rhythm on telemetry. Palpable peripheral pulses bilaterally. No edema present. No calf pain or tenderness noted. SCDs present. GASTROINTESTINAL: Abdomen soft, slightly tender, nondistended. Active bowel sounds present 4 quadrants. Abdominal binder present. Positive bowel movement 04/13 GENITOURINARY: Continues to void INTEGUMENTARY: Skin is warm and dry NEUROLOGIC: Cranial nerves II through XII intact MUSKULOSKELETAL: Able to move all extremities, strength equal bilaterally PSYCHIATRIC: Alert and oriented to person place and time, appropriate affect, intact judgment and insight - Allied health notes Allied health notes reviewed: nursing - Labs CBC & Chem 7: 04/15/22 07:30 04/15/22 07:30 Labs: Abnormal Lab Results - Last 24 Hours (Table) 04/14/22 04/15/22 Range/Units 07:47 07:30 Sodium 133 L 135 L (137-145) mmol/L Creatinine 0.59 L (0.66-1.25) mg/dL Glucose 157 H 117 H (74-99) mg/dL Calcium 8.2 L 8.0 L (8.4-10.2) mg/dL AST 623 H 276 H (17-59) U/L ALT 679 H 483 H (4-49) U/L Total Protein 6.2 L 6.0 L (6.3-8.2) g/dL - Imaging and Cardiology Chest x-ray: report reviewed, image reviewed Assessment and Plan Assessment: 1. Incarcerated paraesophageal hernia, status post EGD, robotic-assisted paraesophageal hernia repair, Frederick fundoplication 2. GERD 3. History of esophageal stricture with multiple dilations 4. History of CAD 5. History of CVA 6. Hypertension 7. Rheumatoid arthritis 8. Previous tobacco dependence 9. Occasional marijuana use 10. Anxiety/depression 11. Elevated transaminases, unclear etiology, trending down Plan: 1. Continue soft diet with no carbonated beverage for at least one week 2. Continue abd binder 3. Encourage incentive spirometry use 10 times every hour while awake 4. GI/DVT prophylaxis 5. Pain control with current medication regimen 6. Will monitor daily labs and x-rays 7. Medical management of other comorbidities per primary care 8. Patient may be discharged to home from our standpoint. Follow up appointment made with Dr. Cunningham, discharge instructions placed on discharge plan
--- NOTE | 2022-04-15 10:26 | P.PN ---
Subjective Progress Note Date: 04/13/22 Patient is a 66-year-old male with a known history of multiple previous esophageal dilations for benign stricture, coronary arteries with history of cardiac catheterization, asthma, history of CVA/TIA, migraine headaches, hypertension, GERD, anxiety/depression marijuana use presents to ER with complaints of nausea and vomiting for the past 1 week. Patient is unable to take any solid diet. Patient is trying to hydrate with water but keeps regurgitation.. Patient is also having constipation issues. Last bowel movement 2 days ago. Otherwise denied any complaints of chest pain. No shortness of breath.. No cough or sputum production. CT abdomen abdomen pelvis showed large sized hiatal hernia or intrathoracic stomach with abnormal twisting. Remonstrated. No suspicious small or large bowel dilatation to suggest bowel obstruction. Possible mild uncomplicated colitis from hepatic flexure pathology splenic flexure versus Food distention. KUB x-ray on admission showed nonspecific abdominal. Few prominent small bowel loops in the upper abdomen correlate for ileitis enteritis. Partial obstruction patent entirely excluded. There is a large hiatal hernia. CT chest showed large hiatal hernia. No pulmonary consolidation. Normal heart. Patient was seen by general surgeon immediately taken to the OR for surgical repair of paraesophageal hernia. Laboratory showed WBC 11.7 hemoglobin 17.3 and platelets 319 Sodium 139 potassium 4.0 chloride 98 bicarb 27 BUN 28 and creatinine 1.1 and blood sugar is 156 Urinalysis is negative for infection 04/13/2022 Patient is postoperative day 1 Currently resting in the bed. Awake alert and oriented 3. Abdominal pain is controlled. No complaints of chest pain or shortness of breath. Patient does not have any nausea. EJ drain is in place with serosanguineous drainage. No fever no chills. No cough or sputum production. Laboratory data showed WBC 13.1 hemoglobin 14.2 and platelets 227 Sodium 140 potassium 3.4 crit 1-2 bicarb is 30 BUN 26 and creatinine 0.87 Liver enzymes showed a seesaw partway L date [address] surgery is on board. Current medications reviewed. Objective - Vital Signs Vital signs: Vital Signs Temp 97.8 F 04/13/22 12:07 Pulse 76 04/13/22 12:07 Resp 18 04/13/22 14:00 BP 138/84 04/13/22 12:07 Pulse Ox 97 04/13/22 12:07 FiO2 Intake & Output 04/12/22 04/13/22 04/13/22 18:59 06:59 18:59 Intake Total 1050 600 240 Output Total 50 560 35 Balance 1000 40 205 Intake: IV 1050 Intake, IV Titration 600 Amount D5-0.45% NaCl with KCl 600 20Meq/l 1,000 ml @ 75 mls /hr IV .[id number] [facility] Rx#: [id number] Oral 0 240 Output: Gastric Drainage 200 Drainage 110 35 Abdomen 110 35 Urine 0 250 Estimated Blood Loss 50 Other: Voiding Method Urinal Urinal Urinal # Voids 1 0 # Bowel Movements 0 - Exam PHYSICAL EXAMINATION: Patient is lying in the bed comfortably, no acute distress, awake alert and oriented.. HEENT: Normocephalic. Neck is supple. Pupils reactive. Nostrils clear. Oral cavity is moist. Neck reveals no JVD, carotid bruits, or thyromegaly. CHEST EXAMINATION: Trachea is central. Symmetrical expansion. Lung greer clear to auscultation and percussion. CARDIAC: Normal S1, S2 with no gallops. No murmurs ABDOMEN: Soft. Bowel sounds present. Abdominal binder in place.. No organomegaly. No abdominal bruits. Extremities: reveal no edema. No clubbing or cyanosis Neurologically awake, alert, oriented x3 with well-coordinated movements. No focal deficits noted Skin: No rash or skin lesions. Psychiatric: Coperative. Nonsuicidal Musculoskeletal: No joint swelling or deformity. Normal range of motion. - Labs CBC & Chem 7: 04/15/22 07:30 04/15/22 07:30 Labs: Abnormal Lab Results - Last 24 Hours (Table) 04/13/22 04/13/22 Range/Units 07:34 07:34 WBC 13.1 H (3.8-10.6) k/uL Neutrophils # 11.2 H (1.3-7.7) k/uL Lymphocytes # 0.9 L (1.0-4.8) k/uL Potassium 3.4 L (3.5-5.1) mmol/L BUN 26 H (9-20) mg/dL Calcium 8.2 L (8.4-10.2) mg/dL AST 745 H (17-59) U/L ALT 623 H (4-49) U/L Total Protein 5.9 L (6.3-8.2) g/dL Assessment and Plan Assessment: Large paraesophageal hernia with entire stomach within the chest. Postoperative day 1 Nausea vomiting and unable to tolerate oral diet. History of multiple esophageal dilation due to benign stricture. Coronary artery disease. Hypertension GERD From diabetes Asthma not in exacerbation Anxiety/depression Marijuana use twice daily weekly. DVT prophylaxis and GI prophylaxis Plan: Patient declined an IV hydration method by mouth. Patient is status post surgical repair of paraesophageal hernia. Continued home blood pressure medications including lisinopril and metoprolol. DuoNebs as needed. Patient was started on clear liquid diet. CT surgery is on board. Continue with GI and DVT prophylaxis. Follow-up closely. Time with Patient: Greater than 30
--- NOTE | 2022-04-15 10:29 | P.PN ---
Subjective Progress Note Date: 04/14/22 Patient is a 66-year-old male with a known history of multiple previous esophageal dilations for benign stricture, coronary arteries with history of cardiac catheterization, asthma, history of CVA/TIA, migraine headaches, hypertension, GERD, anxiety/depression marijuana use presents to ER with complaints of nausea and vomiting for the past 1 week. Patient is unable to take any solid diet. Patient is trying to hydrate with water but keeps regurgitation.. Patient is also having constipation issues. Last bowel movement 2 days ago. Otherwise denied any complaints of chest pain. No shortness of breath.. No cough or sputum production. CT abdomen abdomen pelvis showed large sized hiatal hernia or intrathoracic stomach with abnormal twisting. Remonstrated. No suspicious small or large bowel dilatation to suggest bowel obstruction. Possible mild uncomplicated colitis from hepatic flexure pathology splenic flexure versus Food distention. KUB x-ray on admission showed nonspecific abdominal. Few prominent small bowel loops in the upper abdomen correlate for ileitis enteritis. Partial obstruction patent entirely excluded. There is a large hiatal hernia. CT chest showed large hiatal hernia. No pulmonary consolidation. Normal heart. Patient was seen by general surgeon immediately taken to the OR for surgical repair of paraesophageal hernia. Laboratory showed WBC 11.7 hemoglobin 17.3 and platelets 319 Sodium 139 potassium 4.0 chloride 98 bicarb 27 BUN 28 and creatinine 1.1 and blood sugar is 156 Urinalysis is negative for infection 04/13/2022 Patient is postoperative day 1 Currently resting in the bed. Awake alert and oriented 3. Abdominal pain is controlled. No complaints of chest pain or shortness of breath. Patient does not have any nausea. EJ drain is in place with serosanguineous drainage. No fever no chills. No cough or sputum production. Laboratory data showed WBC 13.1 hemoglobin 14.2 and platelets 227 Sodium 140 potassium 3.4 crit 1-2 bicarb is 30 BUN 26 and creatinine 0.87 Liver enzymes showed a seesaw partway L date [address] surgery is on board. 04/14/2022 Patient is resting in the bed. Awake alert and noted 3. No complaints of abdominal pain. Patient is pacing factors. No nausea vomiting or diarrhea. No cough or sputum production. No chest pain or shortness of breath. Patient is tolerating clear liquid diet and will be advanced soft diet. CT surgery is following. PTOT consulted and follow closely. Laboratory data showed WBC 10.1 14.8 and platelets 191 sodium 1 33.2.8 chloride 98 bicarb is 29 BUN 15 and creatinine 0.75 and calcium 8.2. anticipate discharge next 24 hours. Current medications reviewed. Objective - Vital Signs Vital signs: Vital Signs Temp 98.7 F 04/14/22 19:55 Pulse 75 04/14/22 19:55 Resp 17 04/14/22 19:55 BP 132/72 04/14/22 19:55 Pulse Ox 95 04/14/22 19:55 FiO2 Intake & Output 04/14/22 04/14/22 04/15/22 06:59 18:59 06:59 Intake Total 1250 1440 Output Total 1530 900 Balance -280 540 Intake: Oral 1250 1440 Output: Drainage 180 50 Abdomen 180 50 Urine 1350 850 Other: Voiding Method Toilet Toilet Urinal Urinal # Voids 1 1 # Bowel Movements 1 0 - Exam PHYSICAL EXAMINATION: Patient is lying in the bed comfortably, no acute distress, awake alert and oriented.. HEENT: Normocephalic. Neck is supple. Pupils reactive. Nostrils clear. Oral cavity is moist. Neck reveals no JVD, carotid bruits, or thyromegaly. CHEST EXAMINATION: Trachea is central. Symmetrical expansion. Lung greer clear to auscultation and percussion. CARDIAC: Normal S1, S2 with no gallops. No murmurs ABDOMEN: Soft. Bowel sounds present. Abdominal binder in place.. No organomegaly. No abdominal bruits. Extremities: reveal no edema. No clubbing or cyanosis Neurologically awake, alert, oriented x3 with well-coordinated movements. No focal deficits noted Skin: No rash or skin lesions. Psychiatric: Coperative. Nonsuicidal Musculoskeletal: No joint swelling or deformity. Normal range of motion. - Labs CBC & Chem 7: 04/15/22 07:30 04/15/22 07:30 Labs: Abnormal Lab Results - Last 24 Hours (Table) 04/14/22 Range/Units 07:47 Sodium 133 L (137-145) mmol/L Glucose 157 H (74-99) mg/dL Calcium 8.2 L (8.4-10.2) mg/dL AST 623 H (17-59) U/L ALT 679 H (4-49) U/L Total Protein 6.2 L (6.3-8.2) g/dL Assessment and Plan Assessment: Large paraesophageal hernia with entire stomach within the chest. Postoperative day 2 Nausea vomiting and unable to tolerate oral diet. Resolving now. History of multiple esophageal dilation due to benign stricture. Coronary artery disease. Hypertension GERD From diabetes Asthma not in exacerbation Anxiety/depression Marijuana use twice daily weekly. DVT prophylaxis and GI prophylaxis Plan: Continue with IV hydration. Patient is status post surgical repair of paraesophageal hernia. Continued home blood pressure medications including lisinopril and metoprolol. DuoNebs as needed. Pain management. Patient was started on clear liquid diet. Advance to soft diet. CT surgery is on board. Continue with GI and DVT prophylaxis. Follow-up closely. Time with Patient: Greater than 30
[2022-04-15] MEDS: lisinopriL 5 MG TAB PO SCH (11:51)
== END 2022-04-15 12:03 | disposition home or self-care (01) | DRG 328 ==
LOC: EC 09:48 → 4SSUR 15:25 → 3SCARD 04-12 15:20
PROVIDERS: ADMIT Hospitalist; ATTEND Hospitalist
PROC: 0DV44ZZ Restriction of Esophagogastric Junction, Percutaneous Endoscopic Approach (ICD-10-PCS; 2022-04-12)
PROC: 8E0W4CZ Robotic Assisted Procedure of Trunk Region, Percutaneous Endoscopic Approach (ICD-10-PCS; 2022-04-12)
PROC: 0BQT4ZZ Repair Diaphragm, Percutaneous Endoscopic Approach (ICD-10-PCS; principal; 2022-04-12 07:30)
DX: K44.0 Diaphragmatic hernia with obstruction, without gangrene (principal); I10 Essential (primary) hypertension; F10.21 Alcohol dependence, in remission; J45.909 Unspecified asthma, uncomplicated; F32.A Depression, unspecified; E11.9 Type 2 diabetes mellitus without complications; M06.9 Rheumatoid arthritis, unspecified; K22.2 Esophageal obstruction; R74.01 Elevation of levels of liver transaminase levels; K21.9 Gastro-esophageal reflux disease without esophagitis; I25.10 Atherosclerotic heart disease of native coronary artery without angina pectoris; F41.9 Anxiety disorder, unspecified; Z87.891 Personal history of nicotine dependence; Z86.73 Personal history of transient ischemic attack (TIA), and cerebral infarction without residual deficits; Z79.899 Other long term (current) drug therapy; Z28.310 Unvaccinated for COVID-19
CPT/HCPCS: 36415; 71045; 71046; 71260; 74018; 74177; 80053; 81001; 82150; 82565; 83605; 83690; 84520; 85025; 85027; 85610; 85730; 86850; 86900; 86901; 96361; 96365; 96375; 99285

== ENCOUNTER 2022-05-17 12:52 | Inpatient (IN) | payer MEDICARE, OTHER ==
[2022-05-17 13:23] VITALS: TEMP 99
--- NOTE | 2022-05-17 13:44 | XR ---
EXAMINATION TYPE: XR chest 2V DATE OF EXAM: 05/17/2022 COMPARISON: 04/15/2022 TECHNIQUE: PA and lateral views submitted. HISTORY: Pain FINDINGS: The lungs are clear and there is no pneumothorax, pleural effusion, or focal pneumonia. Arthropathy of the shoulder. Large hiatal hernia. Hyperinflation suggests COPD. Hypertrophic and degenerative ch anges of the spine. There is a 6 mm nodule overlying the lateral left mid to lower lung too small to characterize. Postsurgical change right shoulder. IMPRESSION: 1. No acute process. COPD and large hiatal hernia. 2. There is a small nodule overlying the lateral margin of the left lower lung field measuring 6 mm.
--- NOTE | 2022-05-17 13:55 | XR ---
EXAMINATION TYPE: XR KUB DATE OF EXAM: 05/17/2022 COMPARISON: NONE HISTORY: Pain TECHNIQUE: One view abdominal series FINDINGS: The osseous structures are intact. The bowel gas pattern is nonspecific. Mild bilateral hypertrophic and degenerative changes spine.. IMPRESSION: 1. Nonspecific abdomen.
[2022-05-17] MEDS ORDERED: HYDROmorphone 0.5 MG/0.5 ML SYRINGE IVP STA ×2 (14:39→17:46)
[2022-05-17] MEDS ORDERED: ONDANSETRON 4 MG/2 ML VIAL IVP STA ×2 (14:39→17:46)
[2022-05-17 14:49] LABS: Basophils % (A) 0 %; Eosinophils # (A) 0.1 k/uL (0-0.7); Eosinophils % (A) 0 %; HCT 49.9 % (39.0-53.0); Lymphocytes % (A) 7 %; MCH 32.6 pg (25.0-35.0); MCHC 34.6 g/dL (31.0-37.0); MCV 94.1 fL (80.0-100.0); Mean Platelet Volume 9.1; Monocytes # (A) 0.6 k/uL (0-1.0); Monocytes % (A) 4 %; Neutrophils # (A) 11.8 k/uL (1.3-7.7); Neutrophils % (A) 87 %; Platelet Count 399 k/uL (150-450); RDW 12.7 % (11.5-15.5); WBC 13.6 k/uL (3.8-10.6)
--- NOTE | 2022-05-17 14:50 | ED ---
General Adult HPI - General Chief complaint: Abdominal Pain Stated complaint: post op-no appetite Time Seen by Provider: 05/17/22 14:25 Source: patient, RN notes reviewed, old records reviewed Mode of arrival: ambulatory Limitations: no limitations - History of Present Illness Initial comments: This is a 66-year-old male presents emergency Department complaining of some abdominal pain but mostly the inability to keep foods and sometimes liquid down. Patient states little over a month ago he had a repair of a hiatal hernia by Dr. Cunningham and then he had a binder on and after he moved the binder just before Thanksgiving he has had a difficult time eating and keeping food or liquids down. Patient states the abdominal pain isn't that bad and it comes and goes. Patient denies any diarrhea per patient denies any fever chills per patient denies any chest pain difficulty breathing. Patient states he just feels extremely dehydrated and hungry. Patient denies headache patient denies numbness weakness. - Related Data Home Medications Medication Instructions Recorded Confirmed Metoprolol Tartrate [Lopressor] 12.5 mg PO BID 08/20/18 04/11/22 Albuterol Sulfate [Proair Hfa] 2 puff INHALATION RT-Q6H PRN 08/06/20 04/11/22 Omeprazole 20 mg PO BID 08/06/20 04/11/22 Pravastatin Sodium [Pravachol] 20 mg PO HS 08/06/20 04/11/22 lisinopriL [Zestril] 5 mg PO DAILY 08/06/20 04/11/22 Magnesium 500 mg PO HS 01/14/21 04/11/22 Previous Rx's Medication Instructions Recorded Nitroglycerin Sl Tabs [Nitrostat] 0.4 mg SUBLINGUAL Q5M PRN #30 tab 08/07/20 Ondansetron [Zofran ODT] 4 mg PO Q8HR PRN #15 tab 01/14/21 Allergies Allergy/AdvReac Type Severity Reaction Status Date / Time No Known Allergies Allergy Verified 04/11/22 13:48 Review of Systems ROS Statement: Those systems with pertinent positive or pertinent negative responses have been documented in the HPI. ROS Other: All systems not noted in ROS Statement are negative. Past Medical History Past Medical History: Asthma, Coronary Artery Disease (CAD), Chest Pain / Ang bety, CVA/TIA, GERD/Reflux, Hypertension, Pneumonia, Rheumatoid Arthritis (RA) Additional Past Medical History / Comment(s): MIGRAINES, HEART MURMUR, hx HIATAL HERNIA, ANEMIA, one dr told him he had a stroke at one time-no effects, varicose veins History of Any Multi-Drug Resistant Organisms: None Reported Past Surgical History: Heart Catheterization, Hernia Repair, Orthopedic Surgery Additional Past Surgical History / Comment(s): Lt achilles tendon,RT SHOULDER surgery, RT ACHILLES TENDON reattached, HEMORRHOIDECTOMY, 13 FATTY TUMORS removed. left hand index finger surgery after injury, EGD WITH DILATION, surgery to repair hiatal hernia Past Anesthesia/Blood Transfusion Reactions: No Reported Reaction Additional Past Anesthesia/Blood Transfusion Reaction / Comment(s): no hx blood transfusion Past Psychological History: Anxiety, Depression Smoking Status: Unknown if ever smoked Past Alcohol Use History: None Reported Past Drug Use History: Marijuana - Past Family History Mother Family Medical History: Cancer Father Additional Family Medical History / Comment(s): thinks aneurysm General Exam - General Exam Comments Initial Comments: GENERAL: Patient is well-developed and well-nourished. Patient is nontoxic and well- hydrated and is in mild distress. ENT: Neck is soft and supple. No significant lymphadenopathy is noted. Oropharynx is clear. Dry mucous membranes. Neck has full range of motion without eliciting any pain. EYES: The sclera were anicteric and conjunctiva were pink and moist. Extraocular movements were intact and pupils were equal round and reactive to light. Eyelids were unremarkable. PULMONARY: Unlabored respirations. Good breath sounds bilaterally. No audible rales rhonchi or wheezing was noted. CARDIOVASCULAR: Patient is tachycardic at about 120 beats a minute ABDOMEN: Mild epigastric abdominal pain. SKIN: Skin is clear with no lesions or rashes and otherwise unremarkable. NEUROLOGIC: Patient is alert and oriented x3. Cranial nerves II through XII are grossly intact. Motor and sensory are also intact. Normal speech, volume and content. Symmetrical smile. MUSCULOSKELETAL: Normal extremities with adequate strength and full range of motion. LYMPHATICS: No significant lymphadenopathy is noted PSYCHIATRIC: Normal psychiatric evaluation. Limitations: no limitations Course Vital Signs 05/17/22 05/17/22 13:17 16:00 Temperature 99 F Pulse Rate 124 H 96 Respiratory 24 17 Rate Blood Pressure 158/93 147/117 O2 Sat by Pulse 98 96 Oximetry Medical Decision Making - Medical Decision Making I spoke with the cardiothoracic PA by the name of the Niya and they were requesting a barium swallow be done and the patient admitted. I interpret EKG shows sinus tachycardia at 160 bpm MA interval is 92 QRS is 85 Q-T intervals 362 QTC is 431 per patient's EKG shows some ST segment depression in precordial leads V4 through V6 as well as inferior leads II, III, and F aVF. KUB was interpreted by me shows no acute abnormality. Chest x-ray is interpreted by me I see no infiltrate or pleural effusion. Patient had a barium swallow and it showed complete obstruction with apparent esophageal hiatal hernia I spoke with [facility] agreed to admit the patient admitted the patient wrote admitting orders. Lactic acid is elevated however it is not thought to be secondary to an infection there is no source of infection and it is probably secondary to the patient's severe dehydration - Lab Data Result diagrams: 05/17/22 14:36 05/17/22 14:36 Lab Results 05/17/22 05/17/22 05/17/22 Range/Units 14:35 14:36 14:36 WBC 13.6 H (3.8-10.6) k/uL RBC 5.30 (4.30-5.90) m/uL Hgb 17.3 D (13.0-17.5) gm/dL Hct 49.9 (39.0-53.0) % MCV 94.1 (80.0-100.0) fL MCH 32.6 (25.0-35.0) pg MCHC 34.6 (31.0-37.0) g/dL RDW 12.7 (11.5-15.5) % Plt Count 399 (150-450) k/uL MPV 9.1 Neutrophils % 87 % Lymphocytes % 7 % Monocytes % 4 % Eosinophils % 0 % Basophils % 0 % Neutrophils # 11.8 H (1.3-7.7) k/uL Lymphocytes # 1.0 (1.0-4.8) k/uL Monocytes # 0.6 (0-1.0) k/uL Eosinophils # 0.1 (0-0.7) k/uL Basophils # 0.0 (0-0.2) k/uL PT 10.6 (9.0-12.0) sec INR 1.0 (<1.2) APTT 22.0 (22.0-30.0) sec Sodium (137-145) mmol/L Potassium (3.5-5.1) mmol/L Chloride (98-107) mmol/L Carbon Dioxide (22-30) mmol/L Anion Gap mmol/L BUN (9-20) mg/dL Creatinine (0.66-1.25) mg/dL Est GFR (CKD-EPI)AfAm (>60 ml/min/1.73 sqM) Est GFR (CKD-EPI)NonAf (>60 ml/min/1.73 sqM) Glucose (74-99) mg/dL Plasma Lactic Acid Jack (0.7-2.0) mmol/L Calcium (8.4-10.2) mg/dL Total Bilirubin (0.2-1.3) mg/dL AST (17-59) U/L ALT (4-49) U/L Alkaline Phosphatase (38-126) U/L Troponin I (0.000-0.034) ng/mL Total Protein (6.3-8.2) g/dL Albumin (3.5-5.0) g/dL Amylase (30-110) U/L Lipase (23-300) U/L Urine Color Urine Appearance (Clear) Urine pH (5.0-8.0) Ur Specific [place] (1.001-1.035) Urine Protein (Negative) Urine Glucose (UA) (Negative) Urine Ketones (Negative) Urine Blood (Negative) Urine Nitrite (Negative) Urine Bilirubin (Negative) Urine Urobilinogen (<2.0) mg/dL Ur Leukocyte Esterase (Negative) Urine RBC (0-5) /hpf Urine WBC (0-5) /hpf Ur Squamous Epith Cells (0-4) /hpf Hyaline Casts (0-2) /lpf Urine Mucus (None) /hpf Blood Type Blood Type Recheck Bld Type Recheck Status Antibody Screen NEGATIVE Spec Expiration Date 05/17/22 05/17/22 05/17/22 Range/Units 14:36 14:36 14:36 WBC (3.8-10.6) k/uL RBC (4.30-5.90) m/uL Hgb (13.0-17.5) gm/dL Hct (39.0-53.0) % MCV (80.0-100.0) fL MCH (25.0-35.0) pg MCHC (31.0-37.0) g/dL RDW (11.5-15.5) % Plt Count (150-450) k/uL MPV Neutrophils % % Lymphocytes % % Monocytes % % Eosinophils % % Basophils % % Neutrophils # (1.3-7.7) k/uL Lymphocytes # (1.0-4.8) k/uL Monocytes # (0-1.0) k/uL Eosinophils # (0-0.7) k/uL Basophils # (0-0.2) k/uL PT (9.0-12.0) sec INR (<1.2) APTT (22.0-30.0) sec Sodium 149 H (137-145) mmol/L Potassium 4.3 (3.5-5.1) mmol/L Chloride 102 (98-107) mmol/L Carbon Dioxide 27 (22-30) mmol/L Anion Gap 20 mmol/L BUN 38 H (9-20) mg/dL Creatinine 1.17 (0.66-1.25) mg/dL Est GFR (CKD-EPI)AfAm 75 (>60 ml/min/1.73 sqM) Est GFR (CKD-EPI)NonAf 65 (>60 ml/min/1.73 sqM) Glucose 158 H (74-99) mg/dL Plasma Lactic Acid Jack 4.2 H* (0.7-2.0) mmol/L Calcium 10.2 (8.4-10.2) mg/dL Total Bilirubin 0.9 (0.2-1.3) mg/dL AST 28 (17-59) U/L ALT 22 (4-49) U/L Alkaline Phosphatase 91 (38-126) U/L Troponin I (0.000-0.034) ng/mL Total Protein 8.2 (6.3-8.2) g/dL Albumin 5.0 (3.5-5.0) g/dL Amylase 76 (30-110) U/L Lipase 54 (23-300) U/L Urine Color Yellow Urine Appearance Cloudy (Clear) Urine pH 5.5 (5.0-8.0) Ur Specific [place] 1.029 (1.001-1.035) Urine Protein 1+ H (Negative) Urine Glucose (UA) Negative (Negative) Urine Ketones 2+ H (Negative) Urine Blood Negative (Negative) Urine Nitrite Negative (Negative) Urine Bilirubin 1+ H (Negative) Urine Urobilinogen 2.0 (<2.0) mg/dL Ur Leukocyte Esterase Negative (Negative) Urine RBC 1 (0-5) /hpf Urine WBC 3 (0-5) /hpf Ur Squamous Epith Cells <1 (0-4) /hpf Hyaline Casts 26 H (0-2) /lpf Urine Mucus Many H (None) /hpf Blood Type Blood Type Recheck Bld Type Recheck Status Antibody Screen Spec Expiration Date 05/17/22 05/17/22 Range/Units 14:36 14:36 WBC (3.8-10.6) k/uL RBC (4.30-5.90) m/uL Hgb (13.0-17.5) gm/dL Hct (39.0-53.0) % MCV (80.0-100.0) fL MCH (25.0-35.0) pg MCHC (31.0-37.0) g/dL RDW (11.5-15.5) % Plt Count (150-450) k/uL MPV Neutrophils % % Lymphocytes % % Monocytes % % Eosinophils % % Basophils % % Neutrophils # (1.3-7.7) k/uL Lymphocytes # (1.0-4.8) k/uL Monocytes # (0-1.0) k/uL Eosinophils # (0-0.7) k/uL Basophils # (0-0.2) k/uL PT (9.0-12.0) sec INR (<1.2) APTT (22.0-30.0) sec Sodium (137-145) mmol/L Potassium (3.5-5.1) mmol/L Chloride (98-107) mmol/L Carbon Dioxide (22-30) mmol/L Anion Gap mmol/L BUN (9-20) mg/dL Creatinine (0.66-1.25) mg/dL Est GFR (CKD-EPI)AfAm (>60 ml/min/1.73 sqM) Est GFR (CKD-EPI)NonAf (>60 ml/min/1.73 sqM) Glucose (74-99) mg/dL Plasma Lactic Acid Jack (0.7-2.0) mmol/L Calcium (8.4-10.2) mg/dL Total Bilirubin (0.2-1.3) mg/dL AST (17-59) U/L ALT (4-49) U/L Alkaline Phosphatase (38-126) U/L Troponin I <0.012 (0.000-0.034) ng/mL Total Protein (6.3-8.2) g/dL Albumin (3.5-5.0) g/dL Amylase (30-110) U/L Lipase (23-300) U/L Urine Color Urine Appearance (Clear) Urine pH (5.0-8.0) Ur Specific [place] (1.001-1.035) Urine Protein (Negative) Urine Glucose (UA) (Negative) Urine Ketones (Negative) Urine Blood (Negative) Urine Nitrite (Negative) Urine Bilirubin (Negative) Urine Urobilinogen (<2.0) mg/dL Ur Leukocyte Esterase (Negative) Urine RBC (0-5) /hpf Urine WBC (0-5) /hpf Ur Squamous Epith Cells (0-4) /hpf Hyaline Casts (0-2) /lpf Urine Mucus (None) /hpf Blood Type A Positive Blood Type Recheck A Pos Bld Type Recheck Status No Antibody Screen Spec Expiration Date 05/20/20222335 Disposition Clinical Impression: Paraesophageal hiatal hernia, Esophageal obstruction, Dehydration Disposition: ADMITTED IP TO THIS [facility] Time of Disposition: 16:05
[2022-05-17 14:56] LABS: HGB 17.3 gm/dL (13.0-17.5)
[2022-05-17 15:05] LABS: Prothrombin Time 10.6 sec (9.0-12.0)
[2022-05-17 15:27] LABS: Calcium 10.2 mg/dL (8.4-10.2); Potassium 4.3 mmol/L (3.5-5.1); Total Bilirubin 0.9 mg/dL (0.2-1.3); Total Protein 8.2 g/dL (6.3-8.2)
--- NOTE | 2022-05-17 15:37 | FL ---
ESOPHOGRAM. HISTORY: Vomiting since 04/28/22. Hx of hiatal Hernia surgery on 04/12/22. Dr. Cunningham 2 oz Thin Barium 1.05 min fluoro Esophagram was performed per single contrast technique. The patient ingested thin liquid barium which demonstrates complete obstruction at the distal esophag us with adjacent large para esophageal hiatal hernia. IMPRESSION: Recurrent paraesophageal hiatal hernia with complete obstruction
[2022-05-17] MEDS ORDERED: SODIUM CHLORIDE 0.9% 1,000 ML IV ONE ×2 (16:10→16:18)
[2022-05-17] MEDS ORDERED: SODIUM CHLORIDE 0.9% 500 ML 500 ML IV ONE (16:10)
[2022-05-17 16:16] LABS: Appearance,Urine Cloudy (Clear); Bilirubin,Urine 1+ (Negative); Blood,Urine Negative (Negative); Color,Urine Yellow; Glucose,Urine (UA) Negative (Negative); Hyaline Casts,Urine 26 /lpf (0-2); Ketones,Urine 2+ (Negative); Leukocyte Esterase,Urine Negative (Negative); Mucus,Urine Many /hpf; Nitrite,Urine Negative (Negative); PH, Urine 5.5 (5.0-8.0); Protein,Urine 1+ (Negative); RBC,Urine 1 /hpf (0-5); Specific Gravity,Urine 1.029 (1.001-1.035); Squamous Epithelial Cell,Urine <1 /hpf (0-4); WBC,Urine 3 /hpf (0-5)
[2022-05-18] MEDS: ONDANSETRON 4 MG/2 ML VIAL IVP PRN ×2 (00:08→04:58)
[2022-05-18] MEDS: HYDROmorphone 0.5 MG/0.5 ML SYRINGE IVP PRN ×5 (00:08→21:56)
[2022-05-18] MEDS ORDERED: ALBUTEROL NEBULIZED 2.5 MG/3 ML INHALATION PRN (09:58)
[2022-05-18] MEDS ORDERED: METOPROLOL TARTRATE 25 MG TAB PO SCH ×2 (10:00→21:00)
[2022-05-18 10:18] LABS: African American GFR (CKD) >90 (>60 ml/min/1.73 sqM); Anion Gap 10 mmol/L; Blood Urea Nitrogen 30 mg/dL (9-20); Carbon Dioxide 28 mmol/L (22-30); Chloride 111 mmol/L (98-107); Glucose 106 mg/dL (74-99); Non-African American GFR(CKD) 86 (>60 ml/min/1.73 sqM); Potassium 4.2 mmol/L (3.5-5.1); Sodium 149 mmol/L (137-145)
[2022-05-18 10:20] LABS: HCT 44.1 % (39.0-53.0); HGB 14.4 gm/dL (13.0-17.5); MCH 31.6 pg (25.0-35.0); MCHC 32.7 g/dL (31.0-37.0); MCV 96.4 fL (80.0-100.0); Mean Platelet Volume 8.8; Platelet Count 322 k/uL (150-450); RBC 4.57 m/uL (4.30-5.90); RDW 12.8 % (11.5-15.5); WBC 11.8 k/uL (3.8-10.6)
[2022-05-18] MEDS ORDERED: hydrALAZINE HCL 20 MG/ML 1 ML VIAL IVP PRN (11:25)
[2022-05-18] MEDS ORDERED: DEXTROSE 5% IN WATER 1,000 ML IV ONE (11:26)
[2022-05-18] MEDS ORDERED: PANTOPRAZOLE 40 MG/10 ML VIAL IVP SCH (12:00)
[2022-05-18 12:56] LABS: Glucose,Whole Blood 92 mg/dL (70-110)
[2022-05-18] MEDS: METOCLOPRAMIDE 5 MG/ML 2 ML VIAL IVP SCH ×2 (13:56→21:55)
--- NOTE | 2022-05-18 15:11 | P.HPIM ---
History of Present Illness H&P Date: 05/18/22 This is a 66 year old male with history of asthma, hypertension, coronary artery disease, CVA with no residuals, rheumatoid arthritis, known hiatal hernia and has previously underonge EGD with dilation. Presents with abdominal pain and has been unable to keep food and liquid down. He underwent repair of hiatal hernia about a month ago with Dr. Cunningham and has been wearing abdominal binder on and off. States he was evaluated in the office on 05/13 and saw the [employer]UCK DR[employer]BB[employer] COLLECTOR at at that it was felt he was improving. He states his brace was removed and he was encouraged to try full liquid diet. He states he went home and felt worse and had to decrease diet back down to jello and water. He began vomiting mostly bile, denies hematemesis. He states he has lost over 10 lbs in the last month. Denies shortness of breath, fever, chills, denies chest pain. Patient is concerned he is dehydrated and reports hunger but unable to keep food down. He presents with white count of 13.6, sodium of 149, BUN 38, creatinine 1.17, lactic acid of 4.2. Patient is given 2L bolus in the EC and lactic acid has now normalized. Lab abnormalities are most likely from dehydration, however unable to completely rule out underlying infection at this time. Blood pressure is elevated 168/92, he does have low grade fever of 99 and also is tachycardic. Chest xray showing COPD and large hiatal hernia and small nodule overlying the lateral margin of the left lower lung field measuring 6mm. KUB xray negative for acute findings. Patient had barium swallow completed showing paraesophageal hiatal hernia with complete obstruction. Cardiothoracic services has been consulted. Repeat labs ordered for this morning. Blood pressure medications will be adjusted. REVIEW OF SYSTEMS: CONSTITUTIONAL: Reports fatigue, chills, decreased appetite. HEENT: No recent visual problems or hearing problems. Denied any sore throat. CARDIOVASCULAR: No chest pain, orthopnea, PND, no palpitations, no syncope. PULMONARY: No shortness of breath, no cough, no hemoptysis. GASTROINTESTINAL: No BM, no nausea, reports emesis and also unable to keep food down. NEUROLOGICAL: No headaches, no weakness, no numbness. HEMATOLOGICAL: Denies any bleeding or petechiae. GENITOURINARY: Denies any burning micturition, frequency, or urgency. MUSCULOSKELETAL/RHEUMATOLOGICAL: Denies any joint pain, swelling, or any muscle pain. ENDOCRINE: Denies any polyuria or polydipsia. The rest of the 14-point review of systems is negative. PHYSICAL EXAMINATION: GENERAL: The patient is alert and oriented x3, not in any acute distress. Well developed, well nourished. HEENT: Pupils are round and equally reacting to light. EOMI. No scleral icterus. No conjunctival pallor. Normocephalic, atraumatic. No pharyngeal erythema. No thyromegaly. CARDIOVASCULAR: S1 and S2 present. No murmurs, rubs, or gallops. PULMONARY: Chest is clear to auscultation, no wheezing or crackles. ABDOMEN: Soft, nontender, nondistended, hypoactive bowel sounds. No palpable organomegaly. MUSCULOSKELETAL: No joint swelling or deformity. EXTREMITIES: No cyanosis, clubbing, or pedal edema. NEUROLOGICAL: Gross neurological examination did not reveal any focal deficits. SKIN: No rashes. Assessment and Plan Assessment Vomiting and unable to keep food down Recurrent paraesophageal Hiatal hernia with complete obstruction at the distal obstruction Hypernatremia Leukocytosis mostly reactive Lactic acidosis on admission most likely from acute dehydration improved with IV fluids Mild acute kidney injury mostly prerenal from poor oral intake Mild protein calorie malnutrition History of hiatal hernia surgery 1 month ago 6mm nodule overlying lateral left mid to lower lung too small to characterized found on imaging History asthma/COPD not in acute exacerbation History stroke with no residual deficits History coronary artery disease GI prophylaxis DVT prophylaxis Full Code Plan Insert NG tube for decompression Cardiothoracic recommending transfer out for further evaluation IV hydralazine for blood pressure control Continue antiemetics and pain management Continue IV fluids Check procalcitonin level Repeat labs in AM Pending transfer out The impression and plan of care has been dictated by Desiree Clarke Nurse Practitioner as directed. Dr. Cyndi MD I have performed a history and physical examination and medical decision making of this patient, discussed the same with the dictator, and agree with the dictators assessment and plan as written, documented as a scribe. Based on total visit time, I have performed more than 50% of this visit. Past Medical History Past Medical History: Asthma, Coronary Artery Disease (CAD), Chest Pain / Angina, CVA/TIA, GERD/Reflux, Hypertension, Pneumonia, Rheumatoid Arthritis (RA) Additional Past Medical History / Comment(s): MIGRAINES, HEART MURMUR, hx HIATAL HERNIA, ANEMIA, one dr told him he had a stroke at one time-no effects, varicose veins History of Any Multi-Drug Resistant Organisms: None Reported Past Surgical History: Heart Catheterization, Hernia Repair, Orthopedic Surgery Additional Past Surgical History / Comment(s): Lt achilles tendon,RT SHOULDER surgery, RT ACHILLES TENDON reattached, HEMORRHOIDECTOMY, 13 FATTY TUMORS removed. left hand index finger surgery after injury, EGD WITH DILATION, surgery to repair hiatal hernia Past Anesthesia/Blood Transfusion Reactions: No Reported Reaction Additional Past Anesthesia/Blood Transfusion Reaction / Comment(s): no hx blood transfusion Past Psychological History: Anxiety, Depression Smoking Status: Unknown if ever smoked Past Alcohol Use History: None Reported Past Drug Use History: Marijuana - Past Family History Mother Family Medical History: Cancer Father Additional Family Medical History / Comment(s): thinks aneurysm Medications and Allergies Home Medications Medication Instructions Recorded Confirmed Type Metoprolol Tartrate [Lopressor] 12.5 mg PO BID 08/20/18 05/17/22 History Albuterol Sulfate [Proair Hfa] 2 puff INHALATION RT-Q6H PRN 08/06/20 05/17/22 History Omeprazole 20 mg PO BID 08/06/20 05/17/22 History Pravastatin Sodium [Pravachol] 20 mg PO HS 08/06/20 05/17/22 History lisinopriL [Zestril] 5 mg PO DAILY 08/06/20 05/17/22 History Nitroglycerin Sl Tabs [Nitrostat] 0.4 mg SUBLINGUAL Q5M PRN #30 tab 08/07/20 05/17/22 Rx Magnesium 500 mg PO HS 01/14/21 05/17/22 History Ondansetron [Zofran ODT] 4 mg PO Q8HR PRN #15 tab 01/14/21 05/17/22 Rx Allergies Allergy/AdvReac Type Severity Reaction Status Date / Time No Known Allergies Allergy Verified 05/17/22 17:43 Physical Exam Vitals: Vital Signs Temp Pulse Resp BP Pulse Ox 05/18/22 08:45 113 H 18 168/92 97 05/18/22 04:47 99 9 L 136/78 100 12/13/22 19:00 96 21 164/108 05/17/22 18:30 93 20 172/116 05/17/22 18:00 96 14 157/101 96 05/17/22 17:30 86 20 168/92 97 05/17/22 17:00 91 19 161/108 96 05/17/22 16:30 96 13 140/123 96 05/17/22 16:00 96 17 147/117 96 05/17/22 13:17 99 F 124 H 24 158/93 98 Results CBC & Chem 7: 05/18/22 09:59 05/18/22 09:59 Labs: Abnormal Lab Results - Last 24 Hours (Table) 05/17/22 05/17/22 05/17/22 Range/Units 14:36 14:36 14:36 WBC 13.6 H (3.8-10.6) k/uL Neutrophils # 11.8 H (1.3-7.7) k/uL Sodium 149 H (137-145) mmol/L BUN 38 H (9-20) mg/dL Glucose 158 H (74-99) mg/dL Plasma Lactic Acid Jack (0.7-2.0) mmol/L Urine Protein 1+ H (Negative) Urine Ketones 2+ H (Negative) Urine Bilirubin 1+ H (Negative) Hyaline Casts 26 H (0-2) /lpf Urine Mucus Many H (None) /hpf 05/17/22 05/17/22 Range/Units 14:36 18:49 WBC (3.8-10.6) k/uL Neutrophils # (1.3-7.7) k/uL Sodium (137-145) mmol/L BUN (9-20) mg/dL Glucose (74-99) mg/dL Plasma Lactic Acid Jack 4.2 H* 2.9 H* (0.7-2.0) mmol/L Urine Protein (Negative) Urine Ketones (Negative) Urine Bilirubin (Negative) Hyaline Casts (0-2) /lpf Urine Mucus (None) /hpf Assessment and Plan Time with Patient: Greater than 30
[2022-05-18] MEDS ORDERED: METOPROLOL TARTRATE 5 MG/5 ML VIAL IVP ONE (16:01)
--- NOTE | 2022-05-18 16:18 | P.DS ---
Providers Date of admission: 05/17/22 16:18 Attending physician: Magda Bowie Consults: 05/17/22 16:18 Consult Physician Urgent Consulting Provider: Javi Yun Consult Reason/Comments: Paraesophageal hernia with complete obstruction Do you want consulting provider notified?: Yes Primary care physician: Misael Hopkins Hospital Course: Final Diagnosis Vomiting and unable to keep food down Recurrent paraesophageal Hiatal hernia with complete obstruction distally Hypernatremia Leukocytosis mostly reactive Lactic acidosis on admission most likely from acute dehydration improved with IV fluids Mild acute kidney injury mostly prerenal from poor oral intake Mild protein calorie malnutrition History of hiatal hernia surgery 1 month ago 6mm nodule overlying lateral left mid to lower lung too small to characterized found on imaging History asthma/COPD not in acute exacerbation History stroke with no residual deficits History coronary artery disease GI prophylaxis DVT prophylaxis Full Code Discharge Disposition Patient will be discharge to tertiary care facility for further evaluation by cardiothoracic services regarding recurrent hiatal hernia with distal obstruction. Patient has NG tube in place for decompression and receiving IV fluids with D5 in water at 100 mls per hour. Transfer has been initiated at this time. Hospital Course This is a 66 year old male with history of hiatal hernia repair one month ago with cardiothoracic services. Since patient reports issues with oral intake and has lost about 10 lbs. He was recently evaluated in Dr. Caban office on 05/13/22 and had brace taken off. He was unable to advance diet and went back to clear liquids. He has been vomiting and overall feeling weak. Reports having some chills at home. He does have lactic acid level of 4.2 on admission, white cell count of 13.6, He has some tachycardia. Findings consistent with dehydration, unable to completely rule out infection. Procalcitonin has been ordered. KUB xray negative. He had barium swallow completed showing paraesophageal hiatal hernia with complete obstruction distally. Patient has been placed NPO and given 2 L fluid bolus. He does have hypernatremia at 149. He has been started on D5 in water at 100 mls /hr and NG tube has been placed for decompression as patient continues to have episodes of emesis a brown lee color. Continues on antiemetics with IV zofran and IV reglan. White count has improved to 11.8. Cardiothoracic has reviewed case and both physicians that perform hiatal hernia surgery are unavailable, for this reason the recommendation has been made to transfer out to tertiary facility for cardiothoracic services. Patient is agreeable to this. He has been transitioned to IV protonix, IV hydralazine 10 mg every 6 hours for elevated blood pressure, and will receive a one time dose of IV metoprolol for heart rate. Current blood pressure 139/97, 97% room air, temp 99, and heart rate 112. Covid is negative. Please see medical H and P for additional information. Thank you for allowing us to participate in the care of this patient. The impression and plan of care has been dictated by Desiree Clarke, Nurse Practitioner as directed. Dr. Cyndi MD I have performed a history and physical examination and medical decision making of this patient, discussed the same with the dictator, and agree with the dictators assessment and plan as written, documented as a scribe. Based on total visit time, I have performed more than 50% of this visit. Patient Condition at Discharge: Fair Plan - Discharge Summary New Discharge Prescriptions: No Action Metoprolol Tartrate [Lopressor] 12.5 mg PO BID lisinopriL [Zestril] 5 mg PO DAILY Pravastatin Sodium [Pravachol] 20 mg PO HS Omeprazole 20 mg PO BID Albuterol Sulfate [Proair Hfa] 2 puff INHALATION RT-Q6H PRN PRN Reason: Shortness Of Breath Nitroglycerin Sl Tabs [Nitrostat] 0.4 mg SUBLINGUAL Q5M PRN #30 tab PRN Reason: Chest Pain Magnesium 500 mg PO HS Ondansetron [Zofran ODT] 4 mg PO Q8HR PRN #15 tab PRN Reason: Nausea Discharge Medication List Metoprolol Tartrate [Lopressor] 12.5 mg PO BID 08/20/18 [History] Albuterol Sulfate [Proair Hfa] 2 puff INHALATION RT-Q6H PRN 08/06/20 [History] Omeprazole 20 mg PO BID 08/06/20 [History] Pravastatin Sodium [Pravachol] 20 mg PO HS 08/06/20 [History] lisinopriL [Zestril] 5 mg PO DAILY 08/06/20 [History] Nitroglycerin Sl Tabs [Nitrostat] 0.4 mg SUBLINGUAL Q5M PRN #30 tab 03/05/21 [ Rx] Magnesium 500 mg PO HS 01/14/21 [History] Ondansetron [Zofran ODT] 4 mg PO Q8HR PRN #15 tab 01/14/21 [Rx] Follow up Appointment(s)/Referral(s): Misael Hopkins MD [Primary Care Provider] - 1-2 days
--- NOTE | 2022-05-18 16:23 | P.GSCN ---
History of Present Illness Consult date: 05/18/22 Reason for Consult: Paraesophageal hernia with complete obstruction Requesting physician: Lukasz Kamara History of present illness: This a 66-year-old gentleman who follows on an outpatient basis with Dr. Misael Hopkins the first his primary care service. He has a past medical history significant for an incarcerated paraesophageal hernia in which she underwent a robotic-assisted paraesophageal hernia repair (type3) with Niesen fundoplication on 04/12/2022, GERD, esophageal stricture with multiple dilations, coronary artery disease, CVA with no residual effects, hypertension, rheumatoid arthritis, asthma, remote history of tobacco dependence, occasional marijuana use, anxiety and depression. After his robotic-assisted paraesophageal hernia repair he was discharged home on 04/15/2022. Subsequently, the patient presented to the emergency department here at [facility] yesterday with complaints of abdominal pain, but mostly inability to keep liquids or solid foods down with complaints of nausea and vomiting. He denies any recent fever, chills, hemoptysis, hematemesis, headache, diarrhea, constipation, dyspnea, chest pain, chest pressure, palpitations, presyncope or syncope. The patient reports that he was wearing an abdominal binder until 04/27/2022 and when the abdominal binder was taken off he was unable to tolerate liquids or solid foods. Over the past 2-3 weeks the patient reports he has had a 10 pound weight loss. Initial laboratory results showed a WBC count of 13.6, hemoglobin 17.3, hematocrit 49.9, platelets 399, PT 10.6, INR 1.0, PTT 22.0, sodium 149, potassium 4.3, chloride 102, CO2 27, BUN 38, creatinine 1.17, glucose 158, and initial plasmic lactic acid 4.2, most current lactic acid 1.9, calcium 10.2, total bilirubin 0.9, AST 28, ALT 22, troponin less than 0.012, albumin 5.0, amylase 76 and lipase 54. A chest x-ray was completed which showed no acute process, COPD and large hiatal hernia, and a small nodule overlying the left lateral margin of the left lower lung field measuring 6 mm. A 1 view abdominal series was also completed which showed a nonspecific abdomen. For further evaluation and a barium swallow was completed which demonstrated a com plete obstruction at the distal esophagus with adjacent large paraesophageal hiatal hernia. Subsequently, due to the patient's presenting symptoms, recent history of paraesophageal hernia repair and findings on his above-mentioned studies a consult was placed to Dr. Zack Cunningham from cardiothoracic surgery for further evaluation and treatment recommendations. Review of Systems A 14 point review of systems was completed and was negative except as mentioned in the HPI. Past Medical History Past Medical History: Asthma, Coronary Artery Disease (CAD), Chest Pain / Angina, CVA/TIA, GERD/Reflux, Hyperlipidemia, Hypertension, Pneumonia, Rheumatoid Arthritis (RA) Additional Past Medical History / Comment(s): MIGRAINES, HEART MURMUR, hx HIATAL HERNIA, ANEMIA, one dr told him he had a stroke at one time-no effects, varicose veins, history of incarcerated per esophageal hernia, status post robotic-assisted paraesophageal hernia repair and Frederick fundoplication on 04/12/2022. History of Any Multi-Drug Resistant Organisms: None Reported Past Surgical History: Heart Catheterization, Hernia Repair, Orthopedic Surgery Additional Past Surgical History / Comment(s): Lt achilles tendon,RT SHOULDER surgery, RT ACHILLES TENDON reattached, HEMORRHOIDECTOMY, 13 FATTY TUMORS removed. left hand index finger surgery after injury, EGD WITH DILATION, paraesophageal hernia repair with Frederick fundoplication on 04/12/2022. Past Anesthesia/Blood Transfusion Reactions: No Reported Reaction Additional Past Anesthesia/Blood Transfusion Reaction / Comm: no hx blood transfusion Past Psychological History: Anxiety, Depression Smoking Status: Former smoker Past Alcohol Use History: None Reported Past Drug Use History: Marijuana - Past Family History Mother Family Medical History: Cancer Father Additional Family Medical History / Comment(s): thinks aneurysm Medications and Allergies Home Medications Medication Instructions Recorded Confirmed Type Metoprolol Tartrate [Lopressor] 12.5 mg PO BID 08/20/18 05/17/22 History Albuterol Sulfate [Proair Hfa] 2 puff INHALATION RT-Q6H PRN 08/06/20 05/17/22 History Omeprazole 20 mg PO BID 08/06/20 05/17/22 History Pravastatin Sodium [Pravachol] 20 mg PO HS 08/06/20 05/17/22 History lisinopriL [Zestril] 5 mg PO DAILY 08/06/20 05/17/22 History Nitroglycerin Sl Tabs [Nitrostat] 0.4 mg SUBLINGUAL Q5M PRN #30 tab 08/07/20 05/17/22 Rx Magnesium 500 mg PO HS 01/14/21 05/17/22 History Ondansetron [Zofran ODT] 4 mg PO Q8HR PRN #15 tab 01/14/21 05/17/22 Rx Allergies Allergy/AdvReac Type Severity Reaction Status Date / Time No Known Allergies Allergy Verified 05/17/22 17:43 Surgical - Exam Vital Signs Temp Pulse Resp BP Pulse Ox 99 F 124 H 24 158/93 98 05/17/22 13:17 05/17/22 13:17 05/17/22 13:17 05/17/22 13:17 05/17/22 13:17 - General well developed, well nourished, no distress - Eyes PERRL, normal ocular movement, no pale, no icteric - ENT normal pinna, normal nares, normal mucosa, no hearing loss, no congestion, poor longterm - Neck Neck is supple, no lymphadenopathy. no masses, no bruits, trachea midline, no venous distension - Respiratory Lungs sounds essentially clear throughout. Respirations are symmetrical and nonlabored. No wheezing, crackles or rhonchi. - Cardiovascular Regular rhythm and rate. S1 and S2 present, negative for S3, gallop or murmur. Normal sinus rhythm on bedside telemetry. - Abdomen Abdomen is soft, nontender and nondistended. Active bowel sounds present in all 4 abdominal quadrants. No guarding or rigidity. No organomegaly appreciated. Episodes of nausea and emesis which is thin bilious. - Genitourinary Deferred - Rectum Deferred - Integumentary Skin is warm and dry. No clubbing or cyanosis is present. no rash, no growths, no abnormal pigmentation - Neurologic Cranial nerves II through XII intact. No focal deficits. - Musculoskeletal Moves all 4 extremities with equal strength bilaterally. normal posture - Psychiatric oriented to time, oriented to person, oriented to place, speech is normal, memory intact Results - Labs 05/18/22 09:59 05/18/22 09:59 Abnormal Lab Results - Last 24 Hours (Table) 05/17/22 05/17/22 05/17/22 Range/Units 14:36 14:36 14:36 WBC 13.6 H (3.8-10.6) k/uL Neutrophils # 11.8 H (1.3-7.7) k/uL Sodium 149 H (137-145) mmol/L Chloride (98-107) mmol/L BUN 38 H (9-20) mg/dL Glucose 158 H (74-99) mg/dL Plasma Lactic Acid Jack (0.7-2.0) mmol/L Urine Protein 1+ H (Negative) Urine Ketones 2+ H (Negative) Urine Bilirubin 1+ H (Negative) Hyaline Casts 26 H (0-2) /lpf Urine Mucus Many H (None) /hpf 05/17/22 05/17/22 05/18/22 Range/Units 14:36 18:49 09:59 WBC 11.8 H (3.8-10.6) k/uL Neutrophils # (1.3-7.7) k/uL Sodium (137-145) mmol/L Chloride (98-107) mmol/L BUN (9-20) mg/dL Glucose (74-99) mg/dL Plasma Lactic Acid Jack 4.2 H* 2.9 H* (0.7-2.0) mmol/L Urine Protein (Negative) Urine Ketones (Negative) Urine Bilirubin (Negative) Hyaline Casts (0-2) /lpf Urine Mucus (None) /hpf 05/18/22 Range/Units 09:59 WBC (3.8-10.6) k/uL Neutrophils # (1.3-7.7) k/uL Sodium 149 H (137-145) mmol/L Chloride 111 H (98-107) mmol/L BUN 30 H (9-20) mg/dL Glucose 106 H (74-99) mg/dL Plasma Lactic Acid Jack (0.7-2.0) mmol/L Urine Protein (Negative) Urine Ketones (Negative) Urine Bilirubin (Negative) Hyaline Casts (0-2) /lpf Urine Mucus (None) /hpf Diabetes panel 05/17/22 05/18/22 Range/Units 14:36 09:59 Sodium 149 H 149 H (137-145) mmol/L Potassium 4.3 4.2 (3.5-5.1) mmol/L Chloride 102 111 H (98-107) mmol/L Carbon Dioxide 27 28 (22-30) mmol/L BUN 38 H 30 H (9-20) mg/dL Creatinine 1.17 0.93 (0.66-1.25) mg/dL Glucose 158 H 106 H (74-99) mg/dL Calcium 10.2 9.0 (8.4-10.2) mg/dL AST 28 (17-59) U/L ALT 22 (4-49) U/L Alkaline Phosphatase 91 (38-126) U/L Total Protein 8.2 (6.3-8.2) g/dL Albumin 5.0 (3.5-5.0) g/dL Calcium panel 05/17/22 05/18/22 Range/Units 14:36 09:59 Calcium 10.2 9.0 (8.4-10.2) mg/dL Albumin 5.0 (3.5-5.0) g/dL Pituitary panel 05/17/22 05/18/22 Range/Units 14:36 09:59 Sodium 149 H 149 H (137-145) mmol/L Potassium 4.3 4.2 (3.5-5.1) mmol/L Chloride 102 111 H (98-107) mmol/L Carbon Dioxide 27 28 (22-30) mmol/L BUN 38 H 30 H (9-20) mg/dL Creatinine 1.17 0.93 (0.66-1.25) mg/dL Glucose 158 H 106 H (74-99) mg/dL Calcium 10.2 9.0 (8.4-10.2) mg/dL Adrenal panel 05/17/22 05/18/22 Range/Units 14:36 09:59 Sodium 149 H 149 H (137-145) mmol/L Potassium 4.3 4.2 (3.5-5.1) mmol/L Chloride 102 111 H (98-107) mmol/L Carbon Dioxide 27 28 (22-30) mmol/L BUN 38 H 30 H (9-20) mg/dL Creatinine 1.17 0.93 (0.66-1.25) mg/dL Glucose 158 H 106 H (74-99) mg/dL Calcium 10.2 9.0 (8.4-10.2) mg/dL Total Bilirubin 0.9 (0.2-1.3) mg/dL AST 28 (17-59) U/L ALT 22 (4-49) U/L Alkaline Phosphatase 91 (38-126) U/L Total Protein 8.2 (6.3-8.2) g/dL Albumin 5.0 (3.5-5.0) g/dL - Imaging Chest x-ray: report reviewed, image reviewed Abdominal x-ray: report reviewed, image reviewed Additional studies: Barium swallow results reviewed. Assessment and Plan Assessment: 1. Recurrent paraesophageal hiatal hernia, on barium swallow shows complete obstruction of the distal esophagus 2. Nausea and vomiting, likely secondary to above 3. Lactic acidosis on admission, likely secondary to dehydration, has normalized with IV hydration 4. History of incarcerated paraesophageal hernia, status post robotic-assisted paraesophageal hernia repair with Frederick fundoplication on 04/12/2022 5. History of esophageal stricture status post multiple dilations 6. Hypertension 7. Hyperlipidemia 8. History of asthma, currently on room air 9. History of CVA with no residual deficits 10. History of coronary artery disease 11. GERD 12. 6 mm nodule overlying the left lateral mid to lower lung, finding on recent chest x-ray 13. Remote history of nicotine dependence 14. History of daily marijuana use 15. History of anxiety and depression Plan: The patient was seen and examined at his bedside in the emergency department. His chart and diagnostics reviewed. This case was discussed in detail with Dr. Javi Yun from cardiothoracic surgery. The patient will be kept nothing by mouth, continue IV hydration. Dr. Cunningham is currently unavailable as he is out of town, will seek transfer to tertiary center for repair of recurrent paraesophageal hiatal hernia. This was discussed in detail with the patient and his family member present at his bedside. The patient has been accepted at [facility] and is waiting for bed placement. Spoke with Dr. Davide Macedo at [facility] who will be the accepting surgeon. More recommendations follow based on patient's clinical course. Thank you for this consult. I have personally seen and examined the patient, performed the documentation and the assessment and plan as written. 30 minutes spent on the visit . Abdoulaye DE LEON
[2022-05-18] MEDS ORDERED: PRAVASTATIN SODIUM 20 MG TAB PO SCH (21:00)
[2022-05-18 21:58] VITALS: BP 152/98; PULSE 95; RESP 16
[2022-05-19] MEDS ORDERED: PANTOPRAZOLE 40 MG/10 ML VIAL IVP SCH (09:00)
== END 2022-05-18 23:02 | disposition short-term general hospital (02) | DRG 392 ==
LOC: EC 12:52 → 4SSUR 16:18
PROVIDERS: ADMIT Hospitalist; ATTEND Hospitalist
DX: K44.0 Diaphragmatic hernia with obstruction, without gangrene (principal); E44.1 Mild protein-calorie malnutrition; E87.0 Hyperosmolality and hypernatremia; E87.20 Acidosis, unspecified; N17.9 Acute kidney failure, unspecified; J90 Pleural effusion, not elsewhere classified; Z20.822 Contact with and (suspected) exposure to COVID-19; K22.2 Esophageal obstruction; J44.9 Chronic obstructive pulmonary disease, unspecified; Z68.21 Body mass index [BMI] 21.0-21.9, adult; E86.0 Dehydration; M06.9 Rheumatoid arthritis, unspecified; R11.2 Nausea with vomiting, unspecified; R00.0 Tachycardia, unspecified; J45.909 Unspecified asthma, uncomplicated; I25.10 Atherosclerotic heart disease of native coronary artery without angina pectoris; I10 Essential (primary) hypertension; D72.829 Elevated white blood cell count, unspecified; E78.5 Hyperlipidemia, unspecified; K21.9 Gastro-esophageal reflux disease without esophagitis; D64.9 Anemia, unspecified; R01.1 Cardiac murmur, unspecified; G43.909 Migraine, unspecified, not intractable, without status migrainosus; F32.A Depression, unspecified; F41.9 Anxiety disorder, unspecified; Z79.899 Other long term (current) drug therapy; Z86.73 Personal history of transient ischemic attack (TIA), and cerebral infarction without residual deficits; Z87.01 Personal history of pneumonia (recurrent); Z87.19 Personal history of other diseases of the digestive system; Z80.9 Family history of malignant neoplasm, unspecified; Z82.49 Family history of ischemic heart disease and other diseases of the circulatory system; Z87.891 Personal history of nicotine dependence
CPT/HCPCS: 36415; 71046; 74018; 74220; 80048; 80053; 81001; 82150; 83605; 83690; 84145; 84484; 85025; 85027; 85610; 85730; 86850; 86900; 86901; 87635; 93005; 96361; 96374; 96375; 96376; 99285

== ENCOUNTER 2022-11-04 14:31 | Observation (INO) | payer MEDICARE, OTHER ==
[2022-11-04] MEDS ORDERED: SODIUM CHLORIDE 0.9% 1,000 ML IV STA (15:06)
[2022-11-04] MEDS ORDERED: ONDANSETRON 4 MG/2 ML VIAL IVP STA (15:06)
[2022-11-04] MEDS ORDERED: PANTOPRAZOLE 40 MG/10 ML VIAL IVP STA (15:06)
--- NOTE | 2022-11-04 15:06 | ED ---
Nausea/Vomiting/Diarrhea HPI - General Chief complaint: Abdominal Pain Stated complaint: VOMITING Time Seen by Provider: 11/04/22 15:04 Source: patient, RN notes reviewed, old records reviewed Mode of arrival: wheelchair Limitations: no limitations - History of Present Illness Initial comments: This is a 66-year-old male to the emergency department for evaluation patient presents today for evaluation regards to chest pain belly pain nausea vomiting persistent shaking patient states he feels cold unwell. History of abdominal surgery. Persistent nausea vomiting here in the emergency room. No fevers no diarrhea. No travel history or sick contacts. No family members with similar complaints. MD complaint: nausea, vomiting, abdominal pain -: days(s) Description of Vomiting: food contents, watery, bilious Associated Abdominal Pain: Yes Location: diffuse Radiation: none Severity: moderate Severity scale (1-10): 7 Quality: stabbing, aching Consistency: constant Improves with: none Worsens with: none Context: history of abdominal surgery, other Associated Symptoms: denies other symptoms - Related Data Home Medications Medication Instructions Recorded Confirmed Metoprolol Tartrate [Lopressor] 12.5 mg PO BID 08/20/18 11/04/22 Albuterol Sulfate [Proair Hfa] 2 puff INHALATION RT-Q6H PRN 08/06/20 11/04/22 Omeprazole 20 mg PO AC-BID 08/06/20 11/04/22 Pravastatin Sodium [Pravachol] 20 mg PO HS 08/06/20 11/04/22 lisinopriL [Zestril] 5 mg PO DAILY 08/06/20 11/04/22 Allergies Allergy/AdvReac Type Severity Reaction Status Date / Time No Known Allergies Allergy Verified 11/04/22 17:49 Review of Systems ROS Statement: Those systems with pertinent positive or pertinent negative responses have been documented in the HPI. ROS Other: All systems not noted in ROS Statement are negative. Past Medical History Past Medical History: Asthma, Coronary Artery Disease (CAD), Chest Pain / Angina, CVA/TIA, GERD/Reflux, Hyperlipidemia, Hypertension, Pneumonia, Rheumatoid Arthritis (RA) Additional Past Medical History / Comment(s): MIGRAINES, HEART MURMUR, hx HIATAL HERNIA, ANEMIA, one dr told him he had a stroke at one time-no effects, varicose veins, history of incarcerated per esophageal hernia, status post robotic-assisted paraesophageal hernia repair and Frederick fundoplication on 04/12/2022. History of Any Multi-Drug Resistant Organisms: None Reported Past Surgical History: Heart Catheterization, Hernia Repair, Orthopedic Surgery Additional Past Surgical History / Comment(s): Lt achilles tendon,RT SHOULDER surgery, RT ACHILLES TENDON reattached, HEMORRHOIDECTOMY, 13 FATTY TUMORS removed. left hand index finger surgery after injury, EGD WITH DILATION, paraesophageal hernia repair with Frederick fundoplication on 04/12/2022. Past Anesthesia/Blood Transfusion Reactions: No Reported Reaction Additional Past Anesthesia/Blood Transfusion Reaction / Comment(s): no hx blood transfusion Past Psychological History: Anxiety, Depression Smoking Status: Former smoker Past Alcohol Use History: None Reported Past Drug Use History: Marijuana - Past Family History Mother Family Medical History: Cancer Father Additional Family Medical History / Comment(s): thinks aneurysm General Exam Limitations: no limitations General appearance: alert, in no apparent distress, anxious Head exam: Present: atraumatic, normocephalic, normal inspection Eye exam: Present: normal appearance, PERRL, EOMI. Absent: scleral icterus, conjunctival injection, periorbital swelling ENT exam: Present: normal exam, mucous membranes moist Neck exam: Present: normal inspection. Absent: tenderness, meningismus, lymphadenopathy Respiratory exam: Present: normal lung sounds bilaterally. Absent: respiratory distress, wheezes, rales, rhonchi, stridor Cardiovascular Exam: Present: normal rhythm, tachycardia, normal heart sounds. Absent: systolic murmur, diastolic murmur, rubs, gallop, clicks GI/Abdominal exam: Present: soft, normal bowel sounds. Absent: distended, tenderness, guarding, rebound, rigid Extremities exam: Present: normal inspection, full ROM, normal capillary refill. Absent: tenderness, pedal edema, joint swelling, calf tenderness Back exam: Present: normal inspection Neurological exam: Present: alert, oriented X3, CN II-XII intact Psychiatric exam: Present: normal affect, normal mood Skin exam: Present: warm, dry, intact, normal color. Absent: rash Course Vital Signs 11/04/22 11/04/22 14:38 18:00 Temperature 98.3 F 99.2 F Pulse Rate 114 H 100 Respiratory 20 16 Rate Blood Pressure 172/92 163/94 O2 Sat by Pulse 99 97 Oximetry - Reevaluation(s) Reevaluation #1: 11/04/22 17:44 Medical records reviewed Reevaluation #2: 11/04/22 17:44 Patient has improvement in symptoms Reevaluation #3: 11/04/22 17:44 Patient informed results questions answered Reevaluation #4: 11/04/22 17:44 Was pt. sent in by a medical professional or institution? @ -no Did you speak to anyone other than the patient for history? @ -no Did you review nursing and triage notes? @ -agree Were old charts reviewed? @ -no Differential Diagnosis? @ -prior EKG interpreted by me (3pts min.)? @ -yes X-rays interpreted by me (1pt min.)? @ -yes CT interpreted by me (1pt min.)? @ -no U/S interpreted by me (1pt. min.)? @ -no What testing was considered but not performed? (CT, X-rays, U/S, labs)? Why? @ -no What meds were considered but not given? Why? @ -no Did you discuss the management of the patient with other professionals? @ -no Did you reconcile home meds? @ -no Was smoking cessation discussed for >3mins.? @ -no Was critical care preformed (if so, how long)? @ -no Were there social determinants of health that impacted care today? How? (Homelessness, low income, unemployed, alcoholism, drug addiction, transport ation, low edu. Level, literacy, decrease access to med. care, intermediate, rehab)? @ -no Was there de-escalation of care discussed even if they declined? (Discuss DNR or withdrawal of care, Hospice)? @ -no What co-morbidities impacted this encounter? (DM, HTN, Smoking, COPD, CAD, Cancer, CVA, Hep., AIDS, mental health diagnosis, sleep apnea, morbid obesity)? @ -none Was patient admitted / discharged? @ - Undiagnosed new problem with uncertain prognosis? @ -no Drug Therapy requiring intensive monitoring for toxicity (Heparin, Nitro, Insulin, Cardizem)? @ -no Were any procedures done? @ -no Diagnosis/symptom? @ - Acute, or Chronic, or Acute on Chronic? @ -no Uncomplicated (without systemic symptoms) or Complicated (systemic symptoms)? @ -uncomplicated Side effects of treatment? @ -no Exacerbation, Progression, or Severe Exacerbation] @ -no Poses a threat to life or bodily function? @ -yes Reevaluation #5: 11/04/22 17:44 Differential Abdominal Pain Women: Appendicitis, Cholecystitis, diverticulosis, ischemic bowel, pancreatitis, hepat itis, UTI, gastroenteritis, AAA, incarcerated hernia, bowel obstruction, constipation, inflammatory bowel, hepatitis, peptic ulcer disease, splenic infarction, perforated viscus, vulvitis, ovarian torsion, PID, kidney stone, placenta abruption, this is not meant to be an all-inclusive list Medical Decision Making - Medical Decision Making 66 male with intractable nausea vomiting hypertension. Patient be admitted for symptom management - Lab Data Result diagrams: 11/04/22 15:39 11/04/22 15:39 Lab Results 11/04/22 11/04/22 11/04/22 Range/Units 15:39 15:39 15:39 WBC 12.2 H (3.8-10.6) k/uL RBC 5.01 (4.30-5.90) m/uL Hgb 14.9 (13.0-17.5) gm/dL Hct 44.2 (39.0-53.0) % MCV 88.2 (80.0-100.0) fL MCH 29.8 (25.0-35.0) pg MCHC 33.8 (31.0-37.0) g/dL RDW 15.6 H (11.5-15.5) % Plt Count 352 (150-450) k/uL MPV 8.7 Neutrophils % 92 % Lymphocytes % 3 % Monocytes % 3 % Eosinophils % 1 % Basophils % 0 % Neutrophils # 11.3 H (1.3-7.7) k/uL Lymphocytes # 0.4 L (1.0-4.8) k/uL Monocytes # 0.4 (0-1.0) k/uL Eosinophils # 0.1 (0-0.7) k/uL Basophils # 0.1 (0-0.2) k/uL Sodium 140 (137-145) mmol/L Potassium 4.0 (3.5-5.1) mmol/L Chloride 101 (98-107) mmol/L Carbon Dioxide 24 (22-30) mmol/L Anion Gap 15 mmol/L BUN 23 H (9-20) mg/dL Creatinine 0.62 L (0.66-1.25) mg/dL Est GFR (CKD-EPI)AfAm >90 (>60 ml/min/1.73 sqM) Est GFR (CKD-EPI)NonAf >90 (>60 ml/min/1.73 sqM) Glucose 170 H (74-99) mg/dL Plasma Lactic Acid Jack 1.8 (0.7-2.0) mmol/L Calcium 9.6 (8.4-10.2) mg/dL Phosphorus (2.5-4.5) mg/dL Magnesium (1.6-2.3) mg/dL Total Bilirubin 0.7 (0.2-1.3) mg/dL AST 24 (17-59) U/L ALT 21 (4-49) U/L Alkaline Phosphatase 79 (38-126) U/L Total Protein 7.7 (6.3-8.2) g/dL Albumin 4.8 (3.5-5.0) g/dL Amylase 78 (30-110) U/L Lipase 20 L (23-300) U/L 11/04/22 Range/Units 15:39 WBC (3.8-10.6) k/uL RBC (4.30-5.90) m/uL Hgb (13.0-17.5) gm/dL Hct (39.0-53.0) % MCV (80.0-100.0) fL MCH (25.0-35.0) pg MCHC (31.0-37.0) g/dL RDW (11.5-15.5) % Plt Count (150-450) k/uL MPV Neutrophils % % Lymphocytes % % Monocytes % % Eosinophils % % Basophils % % Neutrophils # (1.3-7.7) k/uL Lymphocytes # (1.0-4.8) k/uL Monocytes # (0-1.0) k/uL Eosinophils # (0-0.7) k/uL Basophils # (0-0.2) k/uL Sodium (137-145) mmol/L Potassium (3.5-5.1) mmol/L Chloride (98-107) mmol/L Carbon Dioxide (22-30) mmol/L Anion Gap mmol/L BUN (9-20) mg/dL Creatinine (0.66-1.25) mg/dL Est GFR (CKD-EPI)AfAm (>60 ml/min/1.73 sqM) Est GFR (CKD-EPI)NonAf (>60 ml/min/1.73 sqM) Glucose (74-99) mg/dL Plasma Lactic Acid Jack (0.7-2.0) mmol/L Calcium (8.4-10.2) mg/dL Phosphorus 3.1 (2.5-4.5) mg/dL Magnesium 2.0 (1.6-2.3) mg/dL Total Bilirubin (0.2-1.3) mg/dL AST (17-59) U/L ALT (4-49) U/L Alkaline Phosphatase (38-126) U/L Total Protein (6.3-8.2) g/dL Albumin (3.5-5.0) g/dL Amylase (30-110) U/L Lipase (23-300) U/L Disposition Clinical Impression: Abdominal pain, Dehydration, Atypical chest pain, Abdominal colic, Nausea & vomiting, Hypertension Disposition: ADMITTED IP TO THIS HOSP Condition: Fair Is patient prescribed a controlled substance at d/c from ED?: No Time of Disposition: 18:30
--- NOTE | 2022-11-04 15:21 | XR ---
EXAMINATION TYPE: XR KUB DATE OF EXAM: 11/04/2022 COMPARISON: NONE HISTORY: Pain TECHNIQUE: Single supine KUB image of the abdomen is obtained FINDINGS: Small bowel demonstrates no evidence for dilatation or air fluid levels. Gas and fecal material is seen in non-distended colon. No convincing evidence for pneumoperitoneum. No unusual calcifications. The lung bases are clear. The osseous structures are intact. IMPRESSION: 1. Overall nonobstructive bowel gas pattern.
[2022-11-04 16:23] LABS: Basophils # (A) 0.1 k/uL (0-0.2); Basophils % (A) 0 %; Eosinophils # (A) 0.1 k/uL (0-0.7); Eosinophils % (A) 1 %; HCT 44.2 % (39.0-53.0); HGB 14.9 gm/dL (13.0-17.5); Lymphocytes # (A) 0.4 k/uL (1.0-4.8); Lymphocytes % (A) 3 %; MCH 29.8 pg (25.0-35.0); MCHC 33.8 g/dL (31.0-37.0); MCV 88.2 fL (80.0-100.0); Mean Platelet Volume 8.7; Monocytes # (A) 0.4 k/uL (0-1.0); Monocytes % (A) 3 %; Neutrophils # (A) 11.3 k/uL (1.3-7.7); Neutrophils % (A) 92 %; Platelet Count 352 k/uL (150-450); RBC 5.01 m/uL (4.30-5.90); RDW 15.6 % (11.5-15.5); WBC 12.2 k/uL (3.8-10.6)
[2022-11-04] MEDS ORDERED: LORazepam 2 MG/ML INJ IV STA ×2 (16:25→20:37)
[2022-11-04] MEDS ORDERED: PROCHLORPERAZINE INJ 10 MG/2 ML VIAL IVP STA ×2 (16:25→20:37)
[2022-11-04 16:40] LABS: ALT 21 U/L (4-49); AST 24 U/L (17-59); African American GFR (CKD) >90 (>60 ml/min/1.73 sqM); Albumin 4.8 g/dL (3.5-5.0); Alkaline Phosphatase 79 U/L (38-126); Amylase 78 U/L (30-110); Anion Gap 15 mmol/L; Blood Urea Nitrogen 23 mg/dL (9-20); Calcium 9.6 mg/dL (8.4-10.2); Carbon Dioxide 24 mmol/L (22-30); Chloride 101 mmol/L (98-107); Glucose 170 mg/dL (74-99); Lipase 20 U/L (23-300); Non-African American GFR(CKD) >90 (>60 ml/min/1.73 sqM); Sodium 140 mmol/L (137-145); Total Bilirubin 0.7 mg/dL (0.2-1.3); Total Protein 7.7 g/dL (6.3-8.2)
[2022-11-04 17:09] LABS: Phosphorus 3.1 mg/dL (2.5-4.5)
--- NOTE | 2022-11-04 17:49 | CT ---
EXAMINATION TYPE: CT abdomen pelvis wo con CT DLP: 472.7 mGycm, Automated exposure control for dose reduction was used. DATE OF EXAM: 11/04/2022 5:28 PM COMPARISON: CT abdomen pelvis most recent from 04/11/2022 . CLINICAL INDICATION:Male, 66 years old with history of pain; ABDOMINAL PAIN AND VOMITING TECHNIQUE: Standard CT of the abdomen and pelvis without IV or oral contrast. Lack of IV or oral co ntrast limits evaluation of solid and hollow organ viscera. Coronal and sagittal reformats were perfo rmed. FINDINGS: LOWER CHEST: Posterior dependent subsegmental atelectasis is noted. ABDOMEN LIVER: Few stable subcentimeter cysts. GALLBLADDER AND BILE DUCTS: Unremarkable. PANCREAS: Unremarkable noncontrast appearance. SPLEEN: Unremarkable noncontrast appearance. ADRENAL GLANDS: Unremarkable noncontrast appearance. KIDNEYS AND URETERS: No evidence of hydronephrosis or renal calculus. PELVIS BLADDER: Left lateral wall urinary bladder diverticulum redemonstrated. REPRODUCTIVE: Mildly prominent size prostate gland. ABDOMEN & PELVIS STOMACH AND BOWEL: Small hiatal hernia, duodenum is unremarkable. Hiatal hernia is decreased in size from prior examination. No evidence of bowel obstruction. The appendix is within normal limits. PERITONEUM: No evidence of pneumoperitoneum or free fluid. VASCULATURE: Mild atherosclerotic calcifications are present throughout the abdominal aorta and its b ranches. No evidence of aortic aneurysm. MUSCULOSKELETAL: No acute osseous abnormalities. Mild disc degeneration changes are present throughou t the thoracolumbar spine. LYMPH NODES: No gross evidence for lymphadenopathy. SOFT TISSUE/ABDOMINAL WALL: Tiny fat filled umbilical hernia. Small fat filled right inguinal hernia. IMPRESSION: 1. No acute abdominal/pelvic process. 2. Decreased size of now small hiatal hernia.
[2022-11-04] MEDS ORDERED: MORPHINE SULFATE 4 MG/ML SYRINGE IV PRN (18:40)
[2022-11-04] MEDS ORDERED: NALOXONE 0.4 MG/ML 1 ML VIAL IV PRN (18:40)
[2022-11-04] MEDS ORDERED: HYDROmorphone 1 MG/ML 1 ML SYRINGE IVP STA (18:40)
[2022-11-04] MEDS: SODIUM CHLORIDE 0.9% 1,000 ML IV SCH (20:24)
[2022-11-04] MEDS: ONDANSETRON 4 MG/2 ML VIAL IVP PRN (20:25)
[2022-11-04] MEDS ORDERED: LABETALOL SYRINGE 5 MG/ML IVP STA (20:37)
[2022-11-04] MEDS ORDERED: LORazepam 2 MG/ML INJ IV PRN (20:37)
[2022-11-05] MEDS: SODIUM CHLORIDE 0.9% 1,000 ML IV SCH ×3 (02:32→23:06)
[2022-11-05] MEDS: ONDANSETRON 4 MG/2 ML VIAL IVP PRN (05:48)
[2022-11-05 06:45] LABS: Basophils % (A) 0 %; Eosinophils % (A) 0 %; HCT 40.3 % (39.0-53.0); Lymphocytes # (A) 0.8 k/uL (1.0-4.8); Lymphocytes % (A) 8 %; MCH 29.3 pg (25.0-35.0); MCHC 32.1 g/dL (31.0-37.0); MCV 91.2 fL (80.0-100.0); Mean Platelet Volume 8.9; Monocytes # (A) 0.7 k/uL (0-1.0); Monocytes % (A) 6 %; Neutrophils # (A) 8.6 k/uL (1.3-7.7); Neutrophils % (A) 84 %; Platelet Count 293 k/uL (150-450); RBC 4.42 m/uL (4.30-5.90); RDW 15.8 % (11.5-15.5); WBC 10.2 k/uL (3.8-10.6)
[2022-11-05 07:02] LABS: ALT 18 U/L (4-49); AST 22 U/L (17-59); African American GFR (CKD) >90 (>60 ml/min/1.73 sqM); Albumin/Globulin Ratio 1.6; Alkaline Phosphatase 67 U/L (38-126); Anion Gap 11 mmol/L; Blood Urea Nitrogen 21 mg/dL (9-20); Calcium 8.6 mg/dL (8.4-10.2); Carbon Dioxide 26 mmol/L (22-30); Chloride 103 mmol/L (98-107); Globulin 2.5 g/dL; Glucose 131 mg/dL (74-99); Non-African American GFR(CKD) >90 (>60 ml/min/1.73 sqM); Phosphorus 3.1 mg/dL (2.5-4.5); Potassium 3.7 mmol/L (3.5-5.1); Sodium 140 mmol/L (137-145); Total Bilirubin 0.7 mg/dL (0.2-1.3); Total Protein 6.5 g/dL (6.3-8.2)
[2022-11-05] MEDS ORDERED: PANTOPRAZOLE 40 MG/10 ML VIAL IV SCH (09:00)
[2022-11-05] MEDS ORDERED: traMADol 50 MG TAB PO PRN (10:19)
[2022-11-05] MEDS ORDERED: ALBUTEROL NEBULIZED 2.5 MG/3 ML INHALATION PRN (10:20)
--- NOTE | 2022-11-05 13:05 | P.HPIM ---
History of Present Illness 66-year-old male came in with nausea vomiting denied any body aches. Denied any chest pain. Patient was having moderate epigastric abdominal pain which resolved at this time. Patient blood pressures were low normal patient does ta ke 5 mg of lisinopril along with a beta julieta at home. Patient pain improved patient is being started on diet thickened tolerated the rate patient discharged today. REVIEW OF SYSTEMS: CONSTITUTIONAL: No fever, no malaise, no fatigue. HEENT: No recent visual problems or hearing problems. Denied any sore throat. CARDIOVASCULAR: No chest pain, orthopnea, PND, no palpitations, no syncope. PULMONARY: No shortness of breath, no cough, no hemoptysis. GASTROINTESTINAL: No diarrhea, no nausea, no vomiting, no abdominal pain. NEUROLOGICAL: No headaches, no weakness, no numbness. HEMATOLOGICAL: Denies any bleeding or petechiae. GENITOURINARY: Denies any burning micturition, frequency, or urgency. MUSCULOSKELETAL/RHEUMATOLOGICAL: Denies any joint pain, swelling, or any muscle pain. ENDOCRINE: Denies any polyuria or polydipsia. The rest of the 14-point review of systems is negative. PHYSICAL EXAMINATION: GENERAL: The patient is alert and oriented x3, not in any acute distress. Well developed, well nourished. HEENT: Pupils are round and equally reacting to light. EOMI. No scleral icterus. No conjunctival pallor. Normocephalic, atraumatic. No pharyngeal erythema. No thyromegaly. CARDIOVASCULAR: S1 and S2 present. No murmurs, rubs, or gallops. PULMONARY: Chest is clear to auscultation, no wheezing or crackles. ABDOMEN: Soft, nontender, nondistended, normoactive bowel sounds. No palpable organomegaly. MUSCULOSKELETAL: No joint swelling or deformity. EXTREMITIES: No cyanosis, clubbing, or pedal edema. NEUROLOGICAL: Gross neurological examination did not reveal any focal deficits. SKIN: No rashes. Assessment and plan -Gastritis/gastroenteritis or peptic ulcer disease: Patient was started on Protonix patient will continue his omeprazole, he'll be started on liquid diet will advance as tolerated to full liquid and if he is able to tolerate that patient will be discharged today. -Hypertension: Patient blood pressure is low normal. We'll cut down the dose of lisinopril to 2.5 mg -Coronary artery disease -Hyperlipidemia -Gastroesophageal reflux disease For above-mentioned chronic medical problems patient can resume his usual home medications. Patient will be discharged today significant tolerate diet Past Medical History Past Medical History: Asthma, Coronary Artery Disease (CAD), Chest Pain / Angina, CVA/TIA, GERD/Reflux, Hyperlipidemia, Hypertension, Pneumonia, Rheumatoid Arthritis (RA) Additional Past Medical History / Comment(s): MIGRAINES, HEART MURMUR, hx HIATAL HERNIA, ANEMIA, one dr told him he had a stroke at one time-no effects, varicose veins, history of incarcerated per esophageal hernia, status post robotic-assisted paraesophageal hernia repair and Frederick fundoplication on 04/12/2022. History of Any Multi-Drug Resistant Organisms: None Reported Past Surgical History: Heart Catheterization, Hernia Repair, Orthopedic Surgery Additional Past Surgical History / Comment(s): Lt achilles tendon,RT SHOULDER surgery, RT ACHILLES TENDON reattached, HEMORRHOIDECTOMY, 13 FATTY TUMORS remove d. left hand index finger surgery after injury, EGD WITH DILATION, paraesophageal hernia repair with Frederick fundoplication on 04/12/2022. Past Anesthesia/Blood Transfusion Reactions: No Reported Reaction Additional Past Anesthesia/Blood Transfusion Reaction / Comment(s): no hx blood transfusion Past Psychological History: Anxiety, Depression Smoking Status: Former smoker Past Alcohol Use History: None Reported Additional Past Alcohol Use History / Comment(s): QUIT SMOKING 1999, APPROX SMOKED 20 YRS, 1-2PPD. pt states hx alcoholism Past Drug Use History: Marijuana Additional Drug Use History / Comment(s): CURRENTLY USES MARIJUANA - Past Family History Mother Family Medical History: Cancer Father Additional Family Medical History / Comment(s): thinks aneurysm Medications and Allergies Home Medications Medication Instructions Recorded Confirmed Type Metoprolol Tartrate [Lopressor] 12.5 mg PO BID 08/20/18 11/04/22 History Albuterol Sulfate [Proair Hfa] 2 puff INHALATION RT-Q6H PRN 08/06/20 11/04/22 History Omeprazole 20 mg PO AC-BID 08/06/20 11/04/22 History Pravastatin Sodium [Pravachol] 20 mg PO HS 08/06/20 11/04/22 History Ondansetron Odt [Zofran Odt] 4 mg PO Q8HR PRN #30 tab 11/05/22 Rx lisinopriL 2.5 mg PO DAILY #30 tablet 11/05/22 Rx Allergies Allergy/AdvReac Type Severity Reaction Status Date / Time No Known Allergies Allergy Verified 11/04/22 17:49 Physical Exam Vitals: Vital Signs Temp Pulse Pulse Resp BP BP Pulse Ox 11/05/22 07:15 98.1 F 92 16 157/75 98 11/05/22 02:48 98.6 F 72 16 116/65 95 11/04/22 22:29 97.7 F 84 16 146/92 95 11/04/22 21:47 98.1 F 87 18 151/96 97 11/04/22 21:02 111 H 16 165/107 98 11/04/22 18:00 99.2 F 100 16 163/94 97 11/04/22 14:38 98.3 F 114 H 20 172/92 99 Intake and Output 11/04/22 11/05/22 11/05/22 22:59 06:59 14:59 Other: # Voids 2 1 Weight 71.668 kg Results CBC & Chem 7: 11/05/22 05:46 11/05/22 05:46 Labs: Abnormal Lab Results - Last 24 Hours (Table) 11/04/22 11/04/22 11/05/22 Range/Units 15:39 15:39 05:46 WBC 12.2 H (3.8-10.6) k/uL RDW 15.6 H 15.8 H (11.5-15.5) % Neutrophils # 11.3 H 8.6 H (1.3-7.7) k/uL Lymphocytes # 0.4 L 0.8 L (1.0-4.8) k/uL BUN 23 H (9-20) mg/dL Creatinine 0.62 L (0.66-1.25) mg/dL Glucose 170 H (74-99) mg/dL Lipase 20 L (23-300) U/L 11/05/22 Range/Units 05:46 WBC (3.8-10.6) k/uL RDW (11.5-15.5) % Neutrophils # (1.3-7.7) k/uL Lymphocytes # (1.0-4.8) k/uL BUN 21 H (9-20) mg/dL Creatinine (0.66-1.25) mg/dL Glucose 131 H (74-99) mg/dL Lipase (23-300) U/L Thrombosis Risk Factor Assmnt - Choose All That Apply Each Risk Factor Represents 2 Points: Age 61-74 years Thrombosis Risk Factor Assessment Total Risk Factor Score: 2 Thrombosis Risk Factor Assessment Level: Low Risk
--- NOTE | 2022-11-05 13:05 | P.DS ---
Providers Date of admission: 11/04/22 18:41 Attending physician: Magda Bowie Primary care physician: Misael Hopkins [facility] Course: Refer to history of present illness for further details Patient Condition at Discharge: Fair Plan - Discharge Summary New Discharge Prescriptions: New lisinopriL 2.5 mg PO DAILY #30 tablet Ondansetron Odt [Zofran Odt] 4 mg PO Q8HR PRN #30 tab PRN Reason: Nausea And Vomiting Continue Metoprolol Tartrate [Lopressor] 12.5 mg PO BID Pravastatin Sodium [Pravachol] 20 mg PO HS Omeprazole 20 mg PO AC-BID Albuterol Sulfate [Proair Hfa] 2 puff INHALATION RT-Q6H PRN PRN Reason: Shortness Of Breath Discontinued lisinopriL [Zestril] 5 mg PO DAILY Discharge Medication List Metoprolol Tartrate [Lopressor] 12.5 mg PO BID 08/20/18 [History] Albuterol Sulfate [Proair Hfa] 2 puff INHALATION RT-Q6H PRN 08/06/20 [History] Omeprazole 20 mg PO AC-BID 08/06/20 [History] Pravastatin Sodium [Pravachol] 20 mg PO HS 08/06/20 [History] Ondansetron Odt [Zofran Odt] 4 mg PO Q8HR PRN #30 tab 11/05/22 [Rx] lisinopriL 2.5 mg PO DAILY #30 tablet 11/05/22 [Rx] Follow up Appointment(s)/Referral(s): Misael Hopkins MD [Primary Care Provider] - 3 Days Discharge Disposition: HOME SELF-CARE
[2022-11-05] MEDS ORDERED: NON FORMULARY DRUG (Omeprazole [Omeprazole] 20 MG Capsule.Dr) PO SCH (17:30)
[2022-11-05] MEDS: METOPROLOL TARTRATE 12.5 MG TAB PO SCH (20:02)
[2022-11-05] MEDS: ACETAMINOPHEN TAB 325 MG TAB PO PRN (20:02)
[2022-11-05] MEDS: FLUTICASONE 50MCG/SPRAY NASAL 16GM EA NOSTRIL SCH (20:03)
[2022-11-05] MEDS: PANTOPRAZOLE 40 MG/10 ML VIAL IV SCH (20:03)
[2022-11-05] MEDS ORDERED: PRAVASTATIN SODIUM 20 MG TAB PO SCH (21:00)
[2022-11-06 04:10] VITALS: TEMP 98.2
[2022-11-06] MEDS: ONDANSETRON 4 MG/2 ML VIAL IVP PRN (08:00)
[2022-11-06 08:40] VITALS: BP 174/96; PULSE 79; RESP 16
[2022-11-06] MEDS: PANTOPRAZOLE 40 MG/10 ML VIAL IV SCH (09:26)
[2022-11-06] MEDS: METOPROLOL TARTRATE 12.5 MG TAB PO SCH (09:27)
[2022-11-06] MEDS: FLUTICASONE 50MCG/SPRAY NASAL 16GM EA NOSTRIL SCH (09:27)
[2022-11-06] MEDS: ACETAMINOPHEN TAB 325 MG TAB PO PRN (09:35)
[2022-11-06] MEDS ORDERED: guaiFENesin 600 MG TABLET.ER PO PRN (10:15)
[2022-11-06] MEDS ORDERED: LORATADINE 10 MG TAB PO SCH (10:15)
[2022-11-06] MEDS ORDERED: NAPROXEN 250 MG TAB PO STA (10:16)
[2022-11-06] MEDS ORDERED: AMOXIC-POT CLAV 875-125MG 1 EACH TAB PO STA (13:02)
[2022-11-06] MEDS: SODIUM CHLORIDE 0.9% 1,000 ML IV SCH (13:48)
--- NOTE | 2022-11-07 10:10 | P.DS ---
Providers Date of admission: 11/04/22 18:41 Attending physician: Magda Bowie Primary care physician: Misael Hopkins Hospital Course: Final Diagnosis -Abdominal/epigastric pain -Gastritis/gastroenteritis or peptic ulcer disease -Acute sinusitis -Leukocytosis -Hypertension: Patient blood pressure is low normal. We'll cut down the dose of lisinopril to 2.5 mg -Coronary artery disease -Hyperlipidemia -Gastroesophageal reflux disease Full Code Discharge Disposition Patient is stable for discharge home with the recommendations to continue oral augmentin twice a day for 5 days and supportive care for the headache and sinus congestion. Patient recommended to take claritin daily, flonase daily. Patient recommended to f/u with ENT if symptoms are not improving for further evaluation. Patient is also given zofran for nausea as needed and diet as tolerated. Patient to follow up with his PCP on discharge. Hospital Course This is a 66-year-old male came in with nausea vomiting denied any body aches. Denied any chest pain. Patient was having moderate epigastric abdominal pain which resolved at this time and patient was given IV protoinx while inpatient and recommended to continue home omeprazole dosing on discharge. Patients blood pressures were low normal patient does take 5 mg of lisinopril along with a beta julieta at home. Will recommend to cut lisinopril done to 2.5 mg. Patient had an abdominal/pelvis CT done which is negative for acute findings does show small hiatal hernia which has decreased in size for previous imaging. Patient is having headache and sinus tenderness with post nasal drip for the last few weeks has tried supportive care at home with antihistamines without much improvement. He is given a dose of naproxen for the headache. Patient will be treated for an acute sinusitis with suspicion the post nasal drip is contributing to the nausea decreased appetite and the mucoid sputum. Patient had normal liver enyzmes, normal bilirubin, normal LFTS. had mild luekocytosis on admission of 12.2 which has improved to 10.2. Electrolytes are WNL and BUN/Creatinine ratio is 21 and 0.68. Patient pain improved patient is being started on full liquid diet and if tolerating will be discharged home with the above mentioned recommendations. Patients lungs are clear, S1 S2 auscultated his abdomen is nontender currently and patient is alert x 3. He is sitting up on the edge of the bed alert x 3. He does state he would like to be discharged home today and feels improved. Please see medication reconciliation for a list of current medication. Thank you for allowing us to participate in the care of this patient. The impression and plan of care has been dictated by Desiree Clarke, Nurse Practitioner as directed. Dr. Cyndi MD I have performed a history and physical examination and medical decision making of this patient, discussed the same with the dictator, and agree with the dictators assessment and plan as written, documented as a scribe. Based on total visit time, I have performed more than 50% of this visit. Patient Condition at Discharge: Fair Plan - Discharge Summary New Discharge Prescriptions: New Loratadine [Claritin] 5 mg PO DAILY tab Ondansetron Odt [Zofran Odt] 4 mg PO Q8HR PRN #30 tab PRN Reason: Nausea And Vomiting Fluticasone Nasal [place] [Flonase Nasal [place]] 2 spray EA NOSTRIL BID ml guaiFENesin [Mucinex] 600 mg PO Q12HR PRN tab PRN Reason: Allergy Symptoms lisinopriL [Zestril] 5 mg PO DAILY #30 tab Amoxic-Pot Clav 875-125Mg [Augmentin 875-125] 1 tab PO Q12HR 5 Days #10 tab Nystatin 100,000 Unit/ml Susp [Mycostatin Oral Susp] 5 ml PO QID 7 Days #250 ml Continue Metoprolol Tartrate [Lopressor] 12.5 mg PO BID Pravastatin Sodium [Pravachol] 20 mg PO HS Omeprazole 20 mg PO AC-BID Albuterol Sulfate [Proair Hfa] 2 puff INHALATION RT-Q6H PRN PRN Reason: Shortness Of Breath Discontinued lisinopriL [Zestril] 5 mg PO DAILY Discharge Medication List Metoprolol Tartrate [Lopressor] 12.5 mg PO BID 08/20/18 [History] Albuterol Sulfate [Proair Hfa] 2 puff INHALATION RT-Q6H PRN 08/06/20 [History] Omeprazole 20 mg PO AC-BID 08/06/20 [History] Pravastatin Sodium [Pravachol] 20 mg PO HS 08/06/20 [History] Ondansetron Odt [Zofran Odt] 4 mg PO Q8HR PRN #30 tab 11/05/22 [Rx] Amoxic-Pot Clav 875-125Mg [Augmentin 875-125] 1 tab PO Q12HR 5 Days #10 tab 11/06/22 [Rx] Fluticasone Nasal [place] [Flonase Nasal [place]] 2 spray EA NOSTRIL BID ml 11/06/22 [Rx] Loratadine [Claritin] 5 mg PO DAILY tab 11/06/22 [Rx] Nystatin 100,000 Unit/ml Susp [Mycostatin Oral Susp] 5 ml PO QID 7 Days #250 ml 11/06/22 [Rx] guaiFENesin [Mucinex] 600 mg PO Q12HR PRN tab 11/06/22 [Rx] lisinopriL [Zestril] 5 mg PO DAILY #30 tab 11/06/22 [Rx] Follow up Appointment(s)/Referral(s): Misael Hopkins MD [Primary Care Provider] - 3 Days Juan Horne MD [STAFF PHYSICIAN] - 1 Week Patient Instructions/Handouts: Dehydration (DC) Activity/Diet/Wound Care/Special Instructions: Continue oral antibiotics for 5 days Follow up with ENT outpatient if sinus symptoms are not improving Continue supportive care continue on non-sedating antihistamine daily such as claritin, continue flonase and mucinex. Continue with zofran as needed Discharge Disposition: HOME SELF-CARE
== END 2022-11-06 14:17 | disposition home or self-care (01) ==
LOC: EC 14:31 → 6NMEDSUR 18:41
PROVIDERS: ADMIT Hospitalist; ATTEND Hospitalist
DX: E86.0 Dehydration (principal); R07.89 Other chest pain; R10.84 Generalized abdominal pain; K52.9 Noninfective gastroenteritis and colitis, unspecified; J01.90 Acute sinusitis, unspecified; I10 Essential (primary) hypertension; I25.10 Atherosclerotic heart disease of native coronary artery without angina pectoris; E78.5 Hyperlipidemia, unspecified; K21.9 Gastro-esophageal reflux disease without esophagitis; F41.9 Anxiety disorder, unspecified; F32.A Depression, unspecified; J45.909 Unspecified asthma, uncomplicated; Z86.73 Personal history of transient ischemic attack (TIA), and cerebral infarction without residual deficits; Z82.49 Family history of ischemic heart disease and other diseases of the circulatory system; Z87.01 Personal history of pneumonia (recurrent); M06.9 Rheumatoid arthritis, unspecified; G43.909 Migraine, unspecified, not intractable, without status migrainosus; R01.1 Cardiac murmur, unspecified; Z98.890 Other specified postprocedural states; Z79.02 Long term (current) use of antithrombotics/antiplatelets; Z79.899 Other long term (current) drug therapy
CPT/HCPCS: 96376 ×3; 96361 ×3; 96374; 96375; 99285; 36415; 80053 ×2; 82150; 83605; 83690; 83735 ×2; 84100 ×2; 85025 ×2; 74018; 74176; G0378 ×3; J2060; J0780; J2405 ×3; J1170; C9113 ×3

== ENCOUNTER 2023-03-14 11:54 | Inpatient (IN) | payer MEDICARE, OTHER ==
--- NOTE | 2023-03-14 12:05 | ED ---
General Adult HPI - General Source: RN notes reviewed <Jolene Bae - Last Filed: 03/14/23 12:04> <Lukasz Kamara - Last Filed: 03/14/23 17:59> - General Stated complaint: throwing up blood Time Seen by Provider: 03/14/23 12:04 - History of Present Illness Initial comments: 7-year-old male presents to the emergency department with a chief complaint of hematemesis. (Jolene Bae) This is a 67-year-old male who presents emergency Department stating that he is vomiting up some dark emesis and states that he thinks his blood. Patient also complains of some left upper quadrant abdominal pain where he had hernia surgery in May. Patient states that often hurts. Patient denies any diarrhea. Patient denies any back pain. Patient denies any fever chills. (Lukasz Kamara) - Related Data Home Medications Medication Instructions Recorded Confirmed Metoprolol Tartrate [Lopressor] 12.5 mg PO BID 08/20/18 11/04/22 Albuterol Sulfate [Proair Hfa] 2 puff INHALATION RT-Q6H PRN 08/06/20 11/04/22 Omeprazole 20 mg PO AC-BID 08/06/20 11/04/22 Pravastatin Sodium [Pravachol] 20 mg PO HS 08/06/20 11/04/22 Previous Rx's Medication Instructions Recorded Ondansetron Odt [Zofran Odt] 4 mg PO Q8HR PRN #30 tab 11/05/22 Amoxic-Pot Clav 875-125Mg 1 tab PO Q12HR 5 Days #10 tab 11/06/22 [Augmentin 875-125] Fluticasone Nasal [place] [Flonase 2 spray EA NOSTRIL BID ml 11/06/22 Nasal [place]] Loratadine [Claritin] 5 mg PO DAILY tab 11/06/22 Nystatin 100,000 Unit/ml Susp 5 ml PO QID 7 Days #250 ml 11/06/22 [Mycostatin Oral Susp] guaiFENesin [Mucinex] 600 mg PO Q12HR PRN tab 11/06/22 lisinopriL [Zestril] 5 mg PO DAILY #30 tab 11/06/22 Allergies Allergy/AdvReac Type Severity Reaction Status Date / Time No Known Allergies Allergy Verified 03/14/23 12:13 Review of Systems ROS Other: All systems not noted in ROS Statement are negative. <Jolene Bae - Last Filed: 03/14/23 12:04> ROS Other: All systems not noted in ROS Statement are negative. <Lukasz Kamara - Last Filed: 03/14/23 17:59> ROS Statement: Those systems with pertinent positive or pertinent negative responses have been documented in the HPI. Past Medical History Past Medical History: Asthma, Coronary Artery Disease (CAD), Chest Pain / Angina, CVA/TIA, GERD/Reflux, Hyperlipidemia, Hypertension, Pneumonia, Rheumatoid Arthritis (RA) Additional Past Medical History / Comment(s): MIGRAINES, HEART MURMUR, hx HIATAL HERNIA, ANEMIA, one dr told him he had a stroke at one time-no effects, varicose veins, history of incarcerated per esophageal hernia, status post robotic-assisted paraesophageal hernia repair and Frederick fundoplication on 04/12/2022. History of Any Multi-Drug Resistant Organisms: None Reported Past Surgical History: Heart Catheterization, Hernia Repair, Orthopedic Surgery Additional Past Surgical History / Comment(s): Lt achilles tendon,RT SHOULDER surgery, RT ACHILLES TENDON reattached, HEMORRHOIDECTOMY, 13 FATTY TUMORS removed. left hand index finger surgery after injury, EGD WITH DILATION, paraesophageal hernia repair with Frederick fundoplication on 04/12/2022. Past Anesthesia/Blood Transfusion Reactions: No Reported Reaction Additional Past Anesthesia/Blood Transfusion Reaction / Comment(s): no hx blood transfusion Past Psychological History: Anxiety, Depression Smoking Status: Former smoker Past Alcohol Use History: None Reported Past Drug Use History: Marijuana - Past Family History Mother Family Medical History: Cancer Father Additional Family Medical History / Comment(s): thinks aneurysm <Jolene Bae - Last Filed: 03/14/23 12:04> General Exam <Jolene Bae - Last Filed: 03/14/23 12:04> <Lukasz Kamara - Last Filed: 03/14/23 17:59> - General Exam Comments Initial Comments: Visual Physical Exam Vital signs reviewed General: Well-appearing, nontoxic, no acute distress. Head: Normocephalic, atraumatic Eyes: PERRLA, EOMI ENT: Airway patent Chest: Nonlabored breathing Skin: No visual rash, normal skin tone Neuro: Alert and oriented 3 Musculoskeletal: No gross abnormalities I performed the quick note portion of this exam, verbal signature Jolene Bae PA-C (Jolene Bae) GENERAL: Patient is well-developed and well-nourished. Patient is nontoxic and well-h ydrated and is in mild distress. ENT: Neck is soft and supple. No significant lymphadenopathy is noted. Oropharynx is clear. Moist mucous membranes. Neck has full range of motion without eliciting any pain. EYES: The sclera were anicteric and conjunctiva were pink and moist. Extraocular mov ements were intact and pupils were equal round and reactive to light. Eyelids were unremarkable. PULMONARY: Unlabored respirations. Good breath sounds bilaterally. No audible rales rhonchi or wheezing was noted. CARDIOVASCULAR: There is a regular rate and rhythm without any murmurs gallops or rubs. ABDOMEN: Patient has left upper quadrant abdominal tenderness SKIN: Skin is clear with no lesions or rashes and otherwise unremarkable. NEUROLOGIC: Patient is alert and oriented x3. Cranial nerves II through XII are grossly intact. Motor and sensory are also intact. Normal speech, volume and content. Symmetrical smile. MUSCULOSKELETAL: Normal extremities with adequate strength and full range of motion. No lower extremity swelling or edema. No calf tenderness. LYMPHATICS: No significant lymphadenopathy is noted PSYCHIATRIC: Normal psychiatric evaluation. (Lukasz Kamara) Course Vital Signs 03/14/23 03/14/23 03/14/23 12:13 13:44 14:04 Temperature 98.6 F 98.2 F Pulse Rate 126 H 134 H 126 H Respiratory 16 18 18 Rate Blood Pressure 156/103 170/97 160/117 O2 Sat by Pulse 98 97 97 Oximetry 03/14/23 03/14/23 15:02 16:00 Temperature Pulse Rate 116 H 115 H Respiratory 20 20 Rate Blood Pressure 154/112 171/110 O2 Sat by Pulse 98 96 Oximetry Medical Decision Making - Lab Data Result diagrams: 03/14/23 12:20 03/14/23 12:20 <Lukasz Kamara - Last Filed: 03/14/23 17:59> - Medical Decision Making Was pt. sent in by a medical professional or institution (, [facility], [employer], urgent care, hospital, or fpc...) When possible be specific @ -No Did you speak to anyone other than the patient for history (EMS, parent, family, police, friend...)? What history was obtained from this source @ -No Did you review nursing and triage notes (agree or disagree)? Why? @ -I reviewed and agree with nursing and triage notes Were old charts reviewed (outside hosp., previous admission, EMS record, old EKG, old radiological studies, urgent care reports/EKG's, fpc records)? Report findings @ -I reviewed prior charts prior labwork on this patient Differential Diagnosis (chest pain, altered mental status, abdominal pain women, abdominal pain men, vaginal bleeding, weakness, fever, dyspnea, syncope, headache, dizziness, GI bleed, back pain, seizure, CVA, palpatations, mental health, musculoskeletal)? @ -Differential GI Bleed: Esophageal varices, aortoenteric fistula, Beverly-Diaz, gastritis, peptic ulcer disease, diverticulosis, inflammatory bowel disease, hemorrhoids, fissure, colitis, malignancy, Meckels diverticulum, this is not meant to be an all- inclusive list. EKG interpreted by me (3pts min.). @ -As above X-rays interpreted by me (1pt min.). @ -None done CT interpreted by me (1pt min.). @ -None done U/S interpreted by me (1pt. min.). @ -None done What testing was considered but not performed or refused? (CT, X-rays, U/S, labs)? Why? @ -None What meds were considered but not given or refused? Why? @ -None Did you discuss the management of the patient with other professionals (professionals i.e. , PA, [employer], lab, RT, psych nurse, social service coordinator, gaming commissioner, teacher, disciplinary hearing officer, pillowcase cutter)? Give summary @ -I spoke with Dr. Hagan he agreed to admit the patient Was smoking cessation discussed for >3mins.? @ -No Was critical care preformed (if so, how long)? @ -No Were there social determinants of health that impacted care today? How? (Homelessness, low income, unemployed, alcoholism, drug addiction, transportation, low edu. Level, literacy, decrease access to med. care, halfway, rehab)? @ -No Was there de-escalation of care discussed even if they declined (Discuss DNR or withdrawal of care, Hospice)? DNR status @ -No What co-morbidities impacted this encounter? (DM, HTN, Smoking, COPD, CAD, Cancer, CVA, ARF, Chemo, Hep., AIDS, mental health diagnosis, sleep apnea, morbid obesity)? @ -None Was patient admitted / discharged? Hospital course, mention meds given and route, prescriptions, significant lab abnormalities, going to OR and other pertinent info. @ -Patient's gastric occult was positive. I spoke with Dr. Hagan he agreed to admit the patient minute the patient he wanted Dr. Pavon consulted I did consult Dr. Pavon and wrote admitting orders . Patient also was given Protonix and had Protonix ordered for inpatient Undiagnosed new problem with uncertain prognosis? @ -No Drug Therapy requiring intensive monitoring for toxicity (Heparin, Nitro, Insulin, Cardizem)? @ -No Were any procedures done? @ -No Diagnosis/symptom? @ -Upper GI bleed Acute, or Chronic, or Acute on Chronic? @ -Acute Uncomplicated (without systemic symptoms) or Complicated (systemic symptoms)? @ -Complicated Side effects of treatment? @ -No Exacerbation, Progression, or Severe Exacerbation? @ -No Poses a threat to life or bodily function? How? (Chest pain, USA, PR, pneumonia, PE, COPD, DKA, ARF, appy, cholecystitis, CVA, Diverticulitis, Homicidal, Suicidal, threat to staff... and all critical care pts) @ -No (Lukasz Kamara) - Lab Data Lab Results 03/14/23 03/14/23 03/14/23 Range/Units 10:30 12:20 12:20 WBC 13.7 H (3.8-10.6) k/uL RBC 5.00 (4.30-5.90) m/uL Hgb 15.3 (13.0-17.5) gm/dL Hct 46.2 (39.0-53.0) % MCV 92.4 (80.0-100.0) fL MCH 30.5 (25.0-35.0) pg MCHC 33.0 (31.0-37.0) g/dL RDW 14.3 (11.5-15.5) % Plt Count 337 (150-450) k/uL MPV 8.9 Neutrophils % 92 % Lymphocytes % 5 % Monocytes % 3 % Eosinophils % 0 % Basophils % 0 % Neutrophils # 12.6 H (1.3-7.7) k/uL Lymphocytes # 0.6 L (1.0-4.8) k/uL Monocytes # 0.4 (0-1.0) k/uL Eosinophils # 0.0 (0-0.7) k/uL Basophils # 0.0 (0-0.2) k/uL PT (9.0-12.0) sec INR (<1.2) APTT (22.0-30.0) sec Sodium 140 (137-145) mmol/L Potassium 4.3 (3.5-5.1) mmol/L Chloride 102 (98-107) mmol/L Carbon Dioxide 21 L (22-30) mmol/L Anion Gap 17 mmol/L BUN 25 H (9-20) mg/dL Creatinine 0.72 (0.66-1.25) mg/dL Est GFR (CKD-EPI)AfAm >90 (>60 ml/min/1.73 sqM) Est GFR (CKD-EPI)NonAf >90 (>60 ml/min/1.73 sqM) Glucose 208 H (74-99) mg/dL Plasma Lactic Acid Jack (0.7-2.0) mmol/L Calcium 9.8 (8.4-10.2) mg/dL Total Bilirubin 0.7 (0.2-1.3) mg/dL AST 30 (17-59) U/L ALT 25 (4-49) U/L Alkaline Phosphatase 90 (38-126) U/L Total Protein 8.0 (6.3-8.2) g/dL Albumin 5.0 (3.5-5.0) g/dL Stool Occult Blood (Negative) Blood Type A Positive Blood Type Recheck A Pos Bld Type Recheck Status No Antibody Screen NEGATIVE Spec Expiration Date 03/17/2023 - 232903/14/23 03/14/23 03/14/23 Range/Units 12:20 12:20 15:10 WBC (3.8-10.6) k/uL RBC (4.30-5.90) m/uL Hgb (13.0-17.5) gm/dL Hct (39.0-53.0) % MCV (80.0-100.0) fL MCH (25.0-35.0) pg MCHC (31.0-37.0) g/dL RDW (11.5-15.5) % Plt Count (150-450) k/uL MPV Neutrophils % % Lymphocytes % % Monocytes % % Eosinophils % % Basophils % % Neutrophils # (1.3-7.7) k/uL Lymphocytes # (1.0-4.8) k/uL Monocytes # (0-1.0) k/uL Eosinophils # (0-0.7) k/uL Basophils # (0-0.2) k/uL PT 9.9 (9.0-12.0) sec INR 0.9 (<1.2) APTT 22.3 (22.0-30.0) sec Sodium (137-145) mmol/L Potassium (3.5-5.1) mmol/L Chloride (98-107) mmol/L Carbon Dioxide (22-30) mmol/L Anion Gap mmol/L BUN (9-20) mg/dL Creatinine (0.66-1.25) mg/dL Est GFR (CKD-EPI)AfAm (>60 ml/min/1.73 sqM) Est GFR (CKD-EPI)NonAf (>60 ml/min/1.73 sqM) Glucose (74-99) mg/dL Plasma Lactic Acid Jack 2.0 (0.7-2.0) mmol/L Calcium (8.4-10.2) mg/dL Total Bilirubin (0.2-1.3) mg/dL AST (17-59) U/L ALT (4-49) U/L Alkaline Phosphatase (38-126) U/L Total Protein (6.3-8.2) g/dL Albumin (3.5-5.0) g/dL Stool Occult Blood Positive (Negative) Blood Type Blood Type Recheck Bld Type Recheck Status Antibody Screen Spec Expiration Date Disposition <Jolene Bae - Last Filed: 03/14/23 12:04> Is patient prescribed a controlled substance at d/c from ED?: No Time of Disposition: 16:20 <Lukasz Kamara - Last Filed: 03/14/23 17:59> Clinical Impression: Upper GI bleed Disposition: ADMITTED IP TO THIS HOSP
[2023-03-14 12:38] LABS: Basophils % (A) 0 %; Eosinophils % (A) 0 %; HCT 46.2 % (39.0-53.0); HGB 15.3 gm/dL (13.0-17.5); Lymphocytes # (A) 0.6 k/uL (1.0-4.8); Lymphocytes % (A) 5 %; MCH 30.5 pg (25.0-35.0); MCV 92.4 fL (80.0-100.0); Mean Platelet Volume 8.9; Monocytes # (A) 0.4 k/uL (0-1.0); Monocytes % (A) 3 %; Neutrophils # (A) 12.6 k/uL (1.3-7.7); Neutrophils % (A) 92 %; Platelet Count 337 k/uL (150-450); RDW 14.3 % (11.5-15.5); WBC 13.7 k/uL (3.8-10.6)
[2023-03-14 12:51] LABS: ALT 25 U/L (4-49); AST 30 U/L (17-59); African American GFR (CKD) >90 (>60 ml/min/1.73 sqM); Alkaline Phosphatase 90 U/L (38-126); Anion Gap 17 mmol/L; Blood Urea Nitrogen 25 mg/dL (9-20); Calcium 9.8 mg/dL (8.4-10.2); Carbon Dioxide 21 mmol/L (22-30); Chloride 102 mmol/L (98-107); Glucose 208 mg/dL (74-99); Non-African American GFR(CKD) >90 (>60 ml/min/1.73 sqM); Potassium 4.3 mmol/L (3.5-5.1); Sodium 140 mmol/L (137-145); Total Bilirubin 0.7 mg/dL (0.2-1.3)
[2023-03-14 12:53] LABS: INR 0.9 (<1.2); Partial Thromboplastin Time 22.3 sec (22.0-30.0); Prothrombin Time 9.9 sec (9.0-12.0)
[2023-03-14] MEDS ORDERED: ONDANSETRON 4 MG/2 ML VIAL IVP STA (14:41)
--- NOTE | 2023-03-14 15:50 | CT ---
EXAMINATION TYPE: CT abdomen pelvis w con CT DLP: 685.5 mGycm, Automated exposure control for dose reduction was used. DATE OF EXAM: 03/14/2023 3:39 PM COMPARISON: 11/04/2022 CLINICAL INDICATION:Male, 67 years old with history of Left upper quadrant abdominal pain; abdominal pain, nausea, vomiting TECHNIQUE: Axial CT of the abdomen and pelvis. Sagittal and coronal reformats were created on a [employer] workstation. Contrast used:100 mL of Isovue 370 with IV Contrast, (none if empty) Oral contrast used: without Oral Contrast (none if empty) FINDINGS: LOWER CHEST: Moderate hiatal hernia. ABDOMEN LIVER: Diffusely hypoattenuating parenchyma. Subcentimeter probable renal cysts. GALLBLADDER AND BILE DUCTS: Unremarkable. PANCREAS: Unremarkable. SPLEEN: Small splenule is present. ADRENAL GLANDS: Unremarkable. KIDNEYS AND URETERS: No evidence of hydronephrosis or renal calculus. The ureters are unremarkable. Right renal probable cysts. PELVIS BLADDER: Left lateral bladder diverticula. REPRODUCTIVE: Prostate is enlarged in size measuring 5.3 cm in transverse dimension. ABDOMEN & PELVIS STOMACH AND BOWEL: No evidence of bowel obstruction. Moderate hiatal hernia. PERITONEUM/RETROPERITONEUM: No evidence of pneumoperitoneum or free fluid. VASCULATURE: Mild atherosclerotic calcifications are present throughout the abdominal aorta and its b ranches. No evidence of aortic aneurysm. MUSCULOSKELETAL: No acute osseous abnormalities. Mild disc degeneration changes are present throughou t the thoracolumbar spine. LYMPH NODES: No gross evidence for lymphadenopathy. SOFT TISSUE/ABDOMINAL WALL: Fat-containing inguinal hernias. Fat-containing umbilical hernia. IMPRESSION: 1. Moderate hiatal hernia otherwise no evidence for acute abdominal process. Pancreas is within norm al limits. No evidence for diverticulitis. 2. Prostatomegaly and evidence of chronic bladder outlet obstruction with left lateral bladder diver ticula.
[2023-03-14] MEDS ORDERED: PANTOPRAZOLE 40 MG TABLET PO STA (16:17)
[2023-03-14] MEDS ORDERED: SODIUM CHLORIDE 0.9% 1,000 ML IV ONE (16:21)
[2023-03-14] MEDS: ONDANSETRON 4 MG/2 ML VIAL IVP PRN (17:00)
[2023-03-14] MEDS ORDERED: PANTOPRAZOLE 40 MG TABLET PO SCH (17:30)
[2023-03-14] MEDS ORDERED: hydrALAZINE HCL 20 MG/ML 1 ML VIAL IM STA (17:38)
[2023-03-14 18:01] LABS: Basophils % (A) 0 %; Eosinophils % (A) 0 %; HCT 44.8 % (39.0-53.0); HGB 15.5 gm/dL (13.0-17.5); Lymphocytes % (A) 7 %; MCH 31.5 pg (25.0-35.0); MCHC 34.6 g/dL (31.0-37.0); MCV 91.1 fL (80.0-100.0); Mean Platelet Volume 10.6; Monocytes # (A) 0.6 k/uL (0-1.0); Monocytes % (A) 4 %; Neutrophils # (A) 12.8 k/uL (1.3-7.7); Neutrophils % (A) 88 %; Platelet Count 298 k/uL (150-450); RBC 4.92 m/uL (4.30-5.90); RDW 14.4 % (11.5-15.5); WBC 14.4 k/uL (3.8-10.6)
[2023-03-14 20:20] LABS: Basophils % (A) 0 %; Eosinophils % (A) 0 %; HCT 46.6 % (39.0-53.0); HGB 15.8 gm/dL (13.0-17.5); Lymphocytes # (A) 0.8 k/uL (1.0-4.8); Lymphocytes % (A) 5 %; MCH 31.1 pg (25.0-35.0); MCHC 33.8 g/dL (31.0-37.0); MCV 92.2 fL (80.0-100.0); Mean Platelet Volume 9.6; Monocytes # (A) 0.6 k/uL (0-1.0); Monocytes % (A) 4 %; Neutrophils # (A) 14.4 k/uL (1.3-7.7); Neutrophils % (A) 91 %; Platelet Count 385 k/uL (150-450); RBC 5.06 m/uL (4.30-5.90); RDW 14.4 % (11.5-15.5); WBC 15.9 k/uL (3.8-10.6)
[2023-03-14] MEDS ORDERED: hydrALAZINE HCL 20 MG/ML 1 ML VIAL IVP PRN (20:28)
[2023-03-14] MEDS ORDERED: METOPROLOL TARTRATE 5 MG/5 ML VIAL IVP PRN (20:28)
[2023-03-14] MEDS: MORPHINE SULFATE 2 MG/ML SYRINGE IVP PRN (20:39)
[2023-03-15] MEDS ORDERED: DEXTROSE 50% SYRINGE 50 ML IVP PRN ×2 (01:11)
--- NOTE | 2023-03-15 01:17 | P.HPIM ---
History of Present Illness H&P Date: 03/14/23 Chief Complaint: Nausea and vomiting. Patient is a 67-year-old male with a known history of coronary artery disease status postcardiac catheterization no PCI, history of CVA/TIA, hypertension, hyperlipidemia, GERD and rheumatoid arthritis and history of incarcerated esophageal hernia and paraesophageal hernia repair and Frederick fundoplication and currently using marijuana presents to ER with complaints of nausea vomiting and coffee-ground emesis. Patient thinks it is his blood and is also complaining of left upper quadrant abdominal pain where he had hernia surgery/paraesophageal hernia repair. Patient was recently admitted to the hospital for epigastric abdominal pain and gastritis as well as acute sinusitis. Patient did complete his antibiotic course. Otherwise patient denies any complaints of fever or chills. No chest pain or shortness of breath. No diarrhea. No cough or sputum production. Denies any recent illnesses. Patient uses marijuana daily. CT of the abdomen pelvis showed a moderate hiatal hernia otherwise no evidence for acute abdominal process. Pancreas is within normal limits. No evidence for diverticulitis. Prostatomegaly and evidence of chronic bladder outlet obstruction with left lateral bladder diverticula. Laboratory data showed WBC 13.7 hemoglobin 15.3 and platelets 337 Sodium 140 potassium 4.3 chloride 102 bicarb is 21 BUN 25 creatinine 0.72 and blood sugar 208 FOBT positive Review of Systems Constitutional: Patient denies any fever or chills . no Generalized weakness. Abdomen: Complaints of nausea vomiting and abdominal pain. No diarrhea. Cardiovascular: Patient denies any chest pain or short of breath no palpitations. Respiratory: patient denied any cough . no sputum production. No shortness of breath Neurologic: Patient denied any numbness or tingling headache. Musculoskeletal: Patient denies any complaints of joint swelling or deformity. Skin: Negative Psychiatric: Negative Endocrine: No heat or cold intolerance. No recent weight gain. Genitourinary: No dysuria or hematuria. All other 14 point ROS negative except the above Past Medical History Past Medical History: Asthma, Coronary Artery Disease (CAD), Chest Pain / Angina, CVA/TIA, GERD/Reflux, Hyperlipidemia, Hypertension, Pneumonia, Rheumatoid Arthritis (RA) Additional Past Medical History / Comment(s): MIGRAINES, HEART MURMUR, hx HIATAL HERNIA, ANEMIA, one dr told him he had a stroke at one time-no effects, varicose veins, history of incarcerated per esophageal hernia, status post robotic-assisted paraesophageal hernia repair and Frederick fundoplication on 04/12/2022. History of Any Multi-Drug Resistant Organisms: None Reported Past Surgical History: Heart Catheterization, Hernia Repair, Orthopedic Surgery Additional Past Surgical History / Comment(s): Lt achilles tendon,RT SHOULDER surgery, RT ACHILLES TENDON reattached, HEMORRHOIDECTOMY, 13 FATTY TUMORS removed. left hand index finger surgery after injury, EGD WITH DILATION, paraesophageal hernia repair with Frederick fundoplication on 04/12/2022. Past Anesthesia/Blood Transfusion Reactions: No Reported Reaction Additional Past Anesthesia/Blood Transfusion Reaction / Comment(s): no hx blood transfusion Past Psychological History: Anxiety, Depression Smoking Status: Former smoker Past Alcohol Use History: None Reported Additional Past Alcohol Use History / Comment(s): QUIT SMOKING 1999, APPROX SMOKED 20 YRS, 1-2PPD. pt states hx alcoholism Past Drug Use History: Marijuana Additional Drug Use History / Comment(s): CURRENTLY USES MARIJUANA - Past Family History Mother Family Medical History: Cancer Father Additional Family Medical History / Comment(s): thinks aneurysm Medications and Allergies Home Medications Medication Instructions Recorded Confirmed Type Metoprolol Tartrate [Lopressor] 12.5 mg PO BID 08/20/18 03/14/23 History Albuterol Sulfate [Proair Hfa] 2 puff INHALATION RT-Q6H PRN 08/06/20 03/14/23 History Omeprazole 20 mg PO AC-BID 08/06/20 03/14/23 History lisinopriL [Zestril] 5 mg PO DAILY #30 tab 11/06/22 03/14/23 Rx Cholecalciferol [Vitamin D3 (25 100 mcg PO DAILY 03/14/23 03/14/23 History Mcg = 1000 Iu)] Cyanocobalamin (Vitamin B-12) 1,000 mcg PO DAILY 03/14/23 03/14/23 History [Vitamin B-12] Magnesium 250 mg PO DAILY 03/14/23 03/14/23 History Allergies Allergy/AdvReac Type Severity Reaction Status Date / Time No Known Allergies Allergy Verified 03/14/23 18:01 Physical Exam Vitals: Vital Signs Temp Pulse Pulse Resp BP BP Pulse Ox 03/14/23 20:11 98.0 F 140 H 16 154/109 97 03/14/23 18:00 110 H 16 157/97 97 03/14/23 16:00 115 H 20 171/110 96 03/14/23 15:02 116 H 20 154/112 98 03/14/23 14:04 126 H 18 160/117 97 03/14/23 13:44 98.2 F 134 H 18 170/97 97 03/14/23 12:13 98.6 F 126 H 16 156/103 98 Intake and Output 03/14/23 03/14/23 03/15/23 14:59 22:59 06:59 Other: # Voids 1 Weight 68.039 kg 68.039 kg PHYSICAL EXAMINATION: Patient is lying in the bed. Appears to be in mild distress, awake alert and oriented.. HEENT: Normocephalic. Neck is supple. Pupils reactive. Nostrils clear. Oral cavity is moist. Neck reveals no JVD, carotid bruits, or thyromegaly. CHEST EXAMINATION: Trachea is central. Symmetrical expansion. Lung greer clear to auscultation and percussion. CARDIAC: Normal S1, S2 with no gallops. No murmurs ABDOMEN: Soft. Bowel sounds present. Nontender. No organomegaly. No abdominal bruits. No guarding or rigidity. Extremities: reveal no edema. No clubbing or cyanosis Neurologically awake, alert, oriented x3 with well-coordinated movements. No focal deficits noted Skin: No rash or skin lesions. Psychiatric: Coperative. Nonsuicidal, Musculoskeletal: No joint swelling or deformity. Normal range of motion. Results CBC & Chem 7: 03/14/23 19:30 03/14/23 12:20 Labs: Abnormal Lab Results - Last 24 Hours (Table) 03/14/23 03/14/23 03/14/23 Range/Units 12:20 12:20 16:22 WBC 13.7 H 14.4 H (3.8-10.6) k/uL Neutrophils # 12.6 H 12.8 H (1.3-7.7) k/uL Lymphocytes # 0.6 L (1.0-4.8) k/uL Carbon Dioxide 21 L (22-30) mmol/L BUN 25 H (9-20) mg/dL Glucose 208 H (74-99) mg/dL 03/14/23 Range/Units 19:30 WBC 15.9 H (3.8-10.6) k/uL Neutrophils # 14.4 H (1.3-7.7) k/uL Lymphocytes # 0.8 L (1.0-4.8) k/uL Carbon Dioxide (22-30) mmol/L BUN (9-20) mg/dL Glucose (74-99) mg/dL Thrombosis Risk Factor Assmnt - DVT/VTE Prophylaxis DVT/VTE Prophylaxis: Mechanical Prophylaxis ordered Assessment and Plan Assessment: Coffee-ground emesis. Possible acute upper GI bleed. Hemoglobin stable. Intractable nausea, vomiting and left upper quadrant abdominal pain. History of paraesophageal hernia repair and hiatal hernia repair Leukocytosis with WBC 13.7 on admission History of CVA/TIA Hypertension Hyperlipidemia Rheumatoid arthritis Coronary artery disease with prior history of cardiac catheterization. Anxiety/depression Prior history of smoking Marijuana use DVT prophylaxis with SCDs Plan: Patient will be continued on IV hydration with normal saline. Continue with symptomatic management for nausea and vomiting. Continue PPI IV twice daily. Follow-up chest x-ray and urinalysis due to elevated WBC, rule out infection. Patient is currently nothing by mouth. General surgery was consulted for evaluation. Continue with pain management. Follow-up closely. Time with Patient: Greater than 30
[2023-03-15] MEDS: ONDANSETRON 4 MG/2 ML VIAL IVP PRN ×3 (01:34→17:30)
[2023-03-15] MEDS: MORPHINE SULFATE 2 MG/ML SYRINGE IVP PRN ×2 (05:03→22:03)
[2023-03-15 06:10] LABS: Glucose,Whole Blood 168 mg/dL (70-110)
[2023-03-15] MEDS: INSULIN ASPART (NovoLOG) 100 UNIT/ML VIAL SQ SCH ×4 (06:15→21:26)
--- NOTE | 2023-03-15 08:16 | XR ---
EXAMINATION TYPE: XR chest 1V DATE OF EXAM: 03/15/2023 COMPARISON: 05/17/2022 HISTORY: Tachycardia TECHNIQUE: Single frontal view of the chest is obtained. FINDINGS: There is no focal air space opacity, pleural effusion, or pneumothorax seen. The cardiac silhouette size is within normal limits. The osseous structures are intact. Postsurgical changes ri ght shoulder and postoperative changes left shoulder. Large hiatal hernia not seen on today's exam. U nderlying emphysematous changes. IMPRESSION: No acute process. Correlate for COPD.
[2023-03-15] MEDS ORDERED: METOPROLOL TARTRATE 12.5 MG TAB PO SCH (09:00)
[2023-03-15] MEDS: PANTOPRAZOLE 40 MG/10 ML VIAL IVP SCH ×2 (09:25→20:41)
[2023-03-15 09:29] LABS: Basophils # (A) 0.01 X 10*3/uL (0.00-0.10); Basophils % (A) 0.1 %; Eosinophils # (A) 0 X 10*3/uL (0.04-0.35); Eosinophils % (A) 0 %; HCT 43.5 % (39.6-50.0); HGB 14.7 d/dL (13.0-17.0); Lymphocytes # (A) 0.62 X 10*3/uL (0.90-5.00); Lymphocytes % (A) 4.2 %; MCH 30.4 pg (27.0-32.0); MCHC 33.8 d/dL (32.0-37.0); MCV 90.1 FL (80.0-97.0); Mean Platelet Volume 11.6 FL (9.5-12.2); Monocytes # (A) 0.76 X 10*3/uL (0.20-1.00); Monocytes % (A) 5.2 %; NRBC Per 100 WBC 0 X 10*3/uL (0.00-0.01); Neutrophils # (A) 13.13 X 10*3/uL (1.80-7.70); Neutrophils % (A) 89.3 %; Platelet Count 325 X 10*3/uL (140-440); RBC 4.83 X 10*6/uL (4.40-5.60); RDW 14.9 % (11.5-14.5); WBC 14.69 X 10*3/uL (4.50-10.00)
[2023-03-15 09:31] LABS: Blood Urea Nitrogen 32.9 mg/dL (9.0-27.0); Calcium 10.1 mg/dL (8.7-10.3); Carbon Dioxide 24.9 mmol/L (21.6-31.8); Chloride 101 mmol/L (96-109); Glucose 164 mg/dL (70-110); Potassium 4.2 mmol/L (3.5-5.5); Sodium 142 mmol/L (135-145)
[2023-03-15] MEDS: lisinopriL 5 MG TAB PO SCH (11:33)
[2023-03-15] MEDS: METOPROLOL TARTRATE 25 MG TAB PO SCH ×2 (11:33→20:41)
[2023-03-15] MEDS ORDERED: PROMETHAZINE 25 MG TAB PO PRN (11:34)
[2023-03-15 12:10] LABS: Glucose,Whole Blood 148 mg/dL (70-110)
[2023-03-15] MEDS: DEXTROSE 5%-0.9% NACL 1,000 ML IV SCH ×2 (13:21→20:42)
[2023-03-15 13:55] LABS: Appearance,Urine Clear (Clear); Bilirubin,Urine Negative (Negative); Blood,Urine Small (Negative); Color,Urine Yellow; Glucose,Urine (UA) Negative (Negative); Ketones,Urine 1+ (Negative); Leukocyte Esterase,Urine Negative (Negative); Mucus,Urine Moderate /hpf; Nitrite,Urine Negative (Negative); Protein,Urine 2+ (Negative); RBC,Urine <1 /hpf (0-5); Specific Gravity,Urine 1.039 (1.001-1.035); Urobilinogen,Urine <2.0 mg/dL (<2.0); WBC,Urine 2 /hpf (0-5)
--- NOTE | 2023-03-15 14:07 | P.PN ---
Subjective Patient is a 67-year-old male with a known history of coronary artery disease status postcardiac catheterization no PCI, history of CVA/TIA, hypertension, hyperlipidemia, GERD and rheumatoid arthritis and history of incarcerated esophageal hernia and paraesophageal hernia repair and Frederick fundoplication and currently using marijuana presents to ER with complaints of nausea vomiting and coffee-ground emesis. Patient thinks it is his blood and is also complaining of left upper quadrant abdominal pain where he had hernia surgery/paraesophageal hernia repair. Patient was recently admitted to the hospital for epigastric abdominal pain and gastritis as well as acute sinusitis. Patient did complete his antibiotic course. Otherwise patient denies any complaints of fever or chills. No chest pain or shortness of breath. No diarrhea. No cough or sputum production. Denies any recent illnesses. Patient uses marijuana daily. CT of the abdomen pelvis showed a moderate hiatal hernia otherwise no evidence for acute abdominal process. Pancreas is within normal limits. No evidence for diverticulitis. Prostatomegaly and evidence of chronic bladder outlet obstruction with left lateral bladder diverticula. Laboratory data showed WBC 13.7 hemoglobin 15.3 and platelets 337 Sodium 140 potassium 4.3 chloride 102 bicarb is 21 BUN 25 creatinine 0.72 and blood sugar 208 FOBT positive 03/15/2023 Patient still complaining of from nausea vomiting with blood although he says is looks better than yesterday. History of complaining of from left-sided abdominal pain and tenderness radiating to the right side, described as sharp by the patient 60/10. He had a bowel movement yesterday. He is seated little bit. He says that his Zofran is not helping to make a D5 normal saline at 100 mL per hour. Continue with Protonix. No anticoagulation for possible GI bleed. Also patient with evidence of leukocytosis. Without positive occult blood in the stool. Priorcalcitonin and CRP are pending. Patient currently not on antibiotics as he has no fever. Follow-up further tests. On close monitoring period. His tachycardia is improving after he received beta julieta will close monitoring. Decreased dose of metoprolol 12.5-25 mg twice a day Continue with telemetry Problems and management plan discussed with patient and he is agreeable. Discussed with staff Active Medications Generic Name Dose Route Start Last Admin Trade Name Freq PRN Reason Stop Dose Admin Dextrose/Water 25 ml 03/15/23 01:11 Dextrose 50% Syringe 50 Ml IVP PER PROTOCOL PRN Hypoglycemia Protocol Dextrose/Water 50 ml 03/15/23 01:11 Dextrose 50% Syringe 50 Ml IVP PER PROTOCOL PRN Hypoglycemia Protocol Hydralazine HCl 10 mg 03/14/23 20:28 Hydralazine Hcl 20 Mg/Ml 1 Ml Vial IVP Q6HR PRN Blood Pressure - High Dextrose/Sodium Chloride 1,000 mls @ 100 mls/hr 03/15/23 12:45 03/15/23 13:21 Dextrose 5%-Ns Iv Soln IV 100 mls/hr .Q10H GIRISH Administration Insulin Aspart 0 unit 03/15/23 07:30 03/15/23 12:42 Insulin Aspart (Novolog) 100 Unit/Ml Vial SQ Not Given ACHS GIRISH Protocol Lisinopril 5 mg 03/15/23 09:00 03/15/23 11:33 Lisinopril 5 Mg Tab PO 5 mg DAILY GIRISH Administration Metoprolol Tartrate 2.5 mg 03/14/23 20:28 03/15/23 09:31 Metoprolol Tartrate 5 Mg/5 Ml Vial IVP 2.5 mg TID PRN Administration Blood Pressure - High Metoprolol Tartrate 25 mg 03/15/23 09:00 03/15/23 11:33 Metoprolol Tartrate 25 Mg Tab PO 25 mg BID GIRISH Administration Morphine Sulfate 2 mg 03/14/23 20:29 03/15/23 05:03 Morphine Sulfate 2 Mg/Ml Syringe IVP 2 mg Q6HR PRN Administration Pain/Discomfort Ondansetron HCl 4 mg 03/14/23 16:17 03/15/23 08:43 Ondansetron 4 Mg/2 Ml Vial IVP 4 mg Q6HR PRN Administration Nausea And Vomiting Pantoprazole Sodium 40 mg 03/15/23 09:00 03/15/23 09:25 Pantoprazole 40 Mg/10 Ml Vial IVP 40 mg BID GIRISH Administration Promethazine HCl 12.5 mg 03/15/23 11:34 Promethazine 25 Mg Tab PO Q6HR PRN Nausea And Vomiting Objective - Vital Signs Vital signs: Vital Signs Temp 98.3 F 03/15/23 07:00 Pulse 154 H 03/15/23 08:00 Resp 16 03/15/23 07:00 BP 150/99 03/15/23 07:00 Pulse Ox 96 03/15/23 07:00 FiO2 Intake & Output 03/14/23 03/15/23 03/15/23 18:59 06:59 18:59 Weight 68.039 kg Other: # Voids 1 - Exam GENERAL: The patient is alert and oriented x3, not in any acute distress. Well developed, well nourished. HEENT: Pupils are round and equally reacting to light. EOMI. No scleral icterus. No conjunctival pallor. Normocephalic, atraumatic. No pharyngeal erythema. No thyromegaly. CARDIOVASCULAR: S1 and S2 present. No murmurs, rubs, or gallops. PULMONARY: Chest is clear to auscultation, no wheezing , no crackles. ABDOMEN: Soft, left-sided abdominal pain and tenderness, nondistended, normoactive bowel sounds. No palpable organomegaly. MUSCULOSKELETAL: No joint swelling or deformity. EXTREMITIES: No cyanosis, clubbing, or pedal edema. NEUROLOGICAL: Gross neurological examination did not reveal any focal deficits. SKIN: No rashes. no petechiae. - Labs CBC & Chem 7: 03/15/23 05:40 03/15/23 05:40 Labs: Abnormal Lab Results - Last 24 Hours (Table) 03/14/23 03/14/23 03/15/23 Range/Units 16:22 19:30 05:40 WBC 14.4 H 15.9 H 14.69 H (3.8-10.6) k/uL RDW 14.9 H (11.5-14.5) % Neutrophils # 12.8 H 14.4 H 13.13 H (1.3-7.7) k/uL Lymphocytes # 0.8 L 0.62 L (1.0-4.8) k/uL Eosinophils # 0 L (0.04-0.35) X 10*3/uL Anion Gap (4.00-12.00) mmol/L BUN (9.0-27.0) mg/dL BUN/Creatinine Ratio (12.00-20.00) Ratio Glucose (70-110) mg/dL POC Glucose (mg/dL) (70-110) mg/dL Ur Specific [place] (1.001-1.035) Urine Protein (Negative) Urine Ketones (Negative) Urine Blood (Negative) Urine Mucus (None) /hpf 03/15/23 03/15/23 03/15/23 Range/Units 05:40 06:09 12:09 WBC (3.8-10.6) k/uL RDW (11.5-14.5) % Neutrophils # (1.3-7.7) k/uL Lymphocytes # (1.0-4.8) k/uL Eosinophils # (0.04-0.35) X 10*3/uL Anion Gap 16.10 H (4.00-12.00) mmol/L BUN 32.9 H (9.0-27.0) mg/dL BUN/Creatinine Ratio 32.90 H (12.00-20.00) Ratio Glucose 164 H (70-110) mg/dL POC Glucose (mg/dL) 168 H 148 H (70-110) mg/dL Ur Specific [place] (1.001-1.035) Urine Protein (Negative) Urine Ketones (Negative) Urine Blood (Negative) Urine Mucus (None) /hpf 03/15/23 Range/Units 13:05 WBC (3.8-10.6) k/uL RDW (11.5-14.5) % Neutrophils # (1.3-7.7) k/uL Lymphocytes # (1.0-4.8) k/uL Eosinophils # (0.04-0.35) X 10*3/uL Anion Gap (4.00-12.00) mmol/L BUN (9.0-27.0) mg/dL BUN/Creatinine Ratio (12.00-20.00) Ratio Glucose (70-110) mg/dL POC Glucose (mg/dL) (70-110) mg/dL Ur Specific [place] 1.039 H (1.001-1.035) Urine Protein 2+ H (Negative) Urine Ketones 1+ H (Negative) Urine Blood Small H (Negative) Urine Mucus Moderate H (None) /hpf Assessment and Plan Assessment: Coffee-ground emesis. Possible acute upper GI bleed. Hemoglobin stable. Intractable nausea, vomiting and left upper quadrant abdominal pain. History of paraesophageal hernia repair and hiatal hernia repair Leukocytosis , present on admission History of CVA/TIA Hypertension Hyperlipidemia Rheumatoid arthritis Coronary artery disease with prior history of cardiac catheterization. Anxiety/depression Prior history of smoking Marijuana use Plan: Continue with IV hydration Continue with Protonix IV twice daily Continue with metoprolol and monitor heart rate and blood pressure Hold anticoagulation. Surgery team consult. Monitor hemoglobin. Labs and medication were reviewed.. Continue same treatment. Continue with symptomatic treatment. Resume home medication. Monitor labs and vitals. DVT and GI prophylaxis. Further recommendations as per clinical course of the patient DVT prophylaxis: SCD, no heparin GI Prophylaxis: Ppi Prognosis is guarded
--- NOTE | 2023-03-15 15:44 | P.GSCN ---
History of Present Illness Consult date: 03/15/23 History of present illness: CHIEF COMPLAINT: Dark emesis HISTORY OF PRESENT ILLNESS: This is a 67-year-old male who presented to the hospital with dark emesis 2 days. He also reports epigastric abdominal pain. He denies any blood in his stools. He has a surgical history of robotic- assisted paraesophageal hernia repair and Frederick fundoplication in [address] Cunningham. It seems that patient had a failed transthoracic surgery and did require transfer to [place] for further surgical intervention. 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 Patient's computed tomography scan of the abdomen and pelvis does reveal a moderate hiatal hernia. Patient has been tachycardic. Patient denies any NSAID use. Denies any blood thinners. PAST MEDICAL HISTORY: Asthma, Coronary Artery Disease (CAD), Chest Pain / Angina, CVA/TIA, GERD/Reflux, Hyperlipidemia, Hypertension, Pneumonia, Rheumatoid Arthritis (RA), MIGRAINES, HEART MURMUR, hx HIATAL HERNIA, ANEMIA, CVA, PAST SURGICAL HISTORY: history of incarcerated per esophageal hernia, status post robotic-assisted paraesophageal hernia repair and Frederick fundoplication on 04/12/2022. EGD with dilation MEDICATIONS: See below ALLERGIES: See below SOCIAL HISTORY: No illicit drug use. REVIEW OF SYSTEMS: CONSTITUTIONAL: Denies fever or chills. HEENT: Denies blurred vision, vision changes, or eye pain. Denies hemoptysis CARDIOVASCULAR: Denies chest pain or pressure. RESPIRATORY: No shortness of breath. GASTROINTESTINAL: See HPI for pertinent findings HEMATOLOGIC: Denies bleeding disorders. GENITOURINARY: Denies any blood in urine or increased urinary frequency. SKIN: Denies pruitis. Denies rash. PHYSICAL EXAM: VITAL SIGNS: Reviewed GENERAL: Well-developed in no acute distress. ABDOMEN: Soft. Nondistended. Epigastric and left upper quadrant tenderness with palpation NEUROLOGIC: Alert and oriented. Cranial nerves II through XII grossly intact. LABORATORY DATA: WBC 14.69 Hgb 15.8 down to 14.7 platelets 325 Sodium is 142 potassium is 4.2 creatinine 1.0 Stool for occult blood positive IMAGING: Computed tomography scan abdomen and pelvis moderate hiatal hernia otherwise no evidence for acute abdominal process. Pancreas is within normal limits. No evidence of diverticulitis. Prostamegaly and evidence of chronic bladder outlet obstruction with lateral bladder diverticula. Chest x-ray no acute process. Correlate for COPD ASSESSMENT: 1. Likely upper GI bleed with Epigastric abdominal pain with coffee-ground emesis 2. History of Robotic-assisted paraesophageal hernia repair and Frederick fundoplication in April [address] Cunningham. It seems that patient had a failed transthoracic surgery and did require transfer to [place] for further surgical intervention PLAN: -Patient scheduled for EGD tomorrow with Dr. Pavon -Check HIDA scan with EF to rule out gallbladder disorder -Keep patient nothing by mouth after midnight -Continue IV Protonix -Continue antiemetics -Continue IV fluids -Continue monitoring hemoglobin -Continue to monitor for any signs or symptoms of bleeding Physician Molder Apprentice note has been reviewed by physician. Signing provider agrees with the documented findings, assessment, and plan of care. Past Medical History Past Medical History: Asthma, Coronary Artery Disease (CAD), Chest Pain / Angina, CVA/TIA, GERD/Reflux, Hyperlipidemia, Hypertension, Pneumonia, Rheumatoid Arthritis (RA) Additional Past Medical History / Comment(s): MIGRAINES, HEART MURMUR, hx HIATAL HERNIA, ANEMIA, one dr told him he had a stroke at one time-no effects, varicose veins, history of incarcerated per esophageal hernia, status post robotic-assisted paraesophageal hernia repair and Frederick fundoplication on 04/12/2022. History of Any Multi-Drug Resistant Organisms: None Reported Past Surgical History: Heart Catheterization, Hernia Repair, Orthopedic Surgery Additional Past Surgical History / Comment(s): Lt achilles tendon,RT SHOULDER surgery, RT ACHILLES TENDON reattached, HEMORRHOIDECTOMY, 13 FATTY TUMORS removed. left hand index finger surgery after injury, EGD WITH DILATION, paraesophageal hernia repair with Frederick fundoplication on 04/12/2022. Past Anesthesia/Blood Transfusion Reactions: No Reported Reaction Additional Past Anesthesia/Blood Transfusion Reaction / Comm: no hx blood t ransfusion Past Psychological History: Anxiety, Depression Smoking Status: Former smoker Past Alcohol Use History: None Reported Additional Past Alcohol Use History / Comment(s): QUIT SMOKING 1999, APPROX SMOKED 20 YRS, 1-2PPD. pt states hx alcoholism Past Drug Use History: Marijuana Additional Drug Use History / Comment(s): CURRENTLY USES MARIJUANA - Past Family History Mother Family Medical History: Cancer Father Additional Family Medical History / Comment(s): thinks aneurysm Medications and Allergies Home Medications Medication Instructions Recorded Confirmed Type Metoprolol Tartrate [Lopressor] 12.5 mg PO BID 08/20/18 03/14/23 History Albuterol Sulfate [Proair Hfa] 2 puff INHALATION RT-Q6H PRN 08/06/20 03/14/23 History Omeprazole 20 mg PO AC-BID 08/06/20 03/14/23 History lisinopriL [Zestril] 5 mg PO DAILY #30 tab 11/06/22 03/14/23 Rx Cholecalciferol [Vitamin D3 (25 100 mcg PO DAILY 03/14/23 03/14/23 History Mcg = 1000 Iu)] Cyanocobalamin (Vitamin B-12) 1,000 mcg PO DAILY 03/14/23 03/14/23 History [Vitamin B-12] Magnesium 250 mg PO DAILY 03/14/23 03/14/23 History Allergies Allergy/AdvReac Type Severity Reaction Status Date / Time No Known Allergies Allergy Verified 03/14/23 18:01 Surgical - Exam Vital Signs Temp Pulse Resp BP Pulse Ox 98.6 F 126 H 16 156/103 98 03/14/23 12:13 03/14/23 12:13 03/14/23 12:13 03/14/23 12:13 03/14/23 12:13 Results - Labs 03/15/23 05:40 03/15/23 05:40 Abnormal Lab Results - Last 24 Hours (Table) 03/14/23 03/14/23 03/15/23 Range/Units 16:22 19:30 05:40 WBC 14.4 H 15.9 H 14.69 H (3.8-10.6) k/uL RDW 14.9 H (11.5-14.5) % Neutrophils # 12.8 H 14.4 H 13.13 H (1.3-7.7) k/uL Lymphocytes # 0.8 L 0.62 L (1.0-4.8) k/uL Eosinophils # 0 L (0.04-0.35) X 10*3/uL Anion Gap (4.00-12.00) mmol/L BUN (9.0-27.0) mg/dL BUN/Creatinine Ratio (12.00-20.00) Ratio Glucose (70-110) mg/dL POC Glucose (mg/dL) (70-110) mg/dL 03/15/23 03/15/23 03/15/23 Range/Units 05:40 06:09 12:09 WBC (3.8-10.6) k/uL RDW (11.5-14.5) % Neutrophils # (1.3-7.7) k/uL Lymphocytes # (1.0-4.8) k/uL Eosinophils # (0.04-0.35) X 10*3/uL Anion Gap 16.10 H (4.00-12.00) mmol/L BUN 32.9 H (9.0-27.0) mg/dL BUN/Creatinine Ratio 32.90 H (12.00-20.00) Ratio Glucose 164 H (70-110) mg/dL POC Glucose (mg/dL) 168 H 148 H (70-110) mg/dL Diabetes panel 03/15/23 Range/Units 05:40 Sodium 142 (135-145) mmol/L Potassium 4.2 (3.5-5.5) mmol/L Chloride 101 (96-109) mmol/L Carbon Dioxide 24.9 (21.6-31.8) mmol/L BUN 32.9 H (9.0-27.0) mg/dL Creatinine 1.0 (0.6-1.5) mg/dL Glucose 164 H (70-110) mg/dL Calcium 10.1 (8.7-10.3) mg/dL Calcium panel 03/15/23 Range/Units 05:40 Calcium 10.1 (8.7-10.3) mg/dL Pituitary panel 03/15/23 Range/Units 05:40 Sodium 142 (135-145) mmol/L Potassium 4.2 (3.5-5.5) mmol/L Chloride 101 (96-109) mmol/L Carbon Dioxide 24.9 (21.6-31.8) mmol/L BUN 32.9 H (9.0-27.0) mg/dL Creatinine 1.0 (0.6-1.5) mg/dL Glucose 164 H (70-110) mg/dL Calcium 10.1 (8.7-10.3) mg/dL Adrenal panel 03/15/23 Range/Units 05:40 Sodium 142 (135-145) mmol/L Potassium 4.2 (3.5-5.5) mmol/L Chloride 101 (96-109) mmol/L Carbon Dioxide 24.9 (21.6-31.8) mmol/L BUN 32.9 H (9.0-27.0) mg/dL Creatinine 1.0 (0.6-1.5) mg/dL Glucose 164 H (70-110) mg/dL Calcium 10.1 (8.7-10.3) mg/dL
[2023-03-15 17:27] LABS: Glucose,Whole Blood 121 mg/dL (70-110)
[2023-03-15 20:53] LABS: Glucose,Whole Blood 139 mg/dL (70-110)
[2023-03-16] MEDS: INSULIN ASPART (NovoLOG) 100 UNIT/ML VIAL SQ SCH ×4 (06:07→20:07)
[2023-03-16 06:08] LABS: Glucose,Whole Blood 129 mg/dL (70-110)
[2023-03-16] MEDS: ONDANSETRON 4 MG/2 ML VIAL IVP PRN ×2 (06:10→20:00)
[2023-03-16 06:16] LABS: Basophils % (A) 0 %; Eosinophils % (A) 0 %; HCT 42.4 % (39.0-53.0); HGB 13.9 gm/dL (13.0-17.5); Lymphocytes % (A) 6 %; MCH 30.6 pg (25.0-35.0); MCHC 32.9 g/dL (31.0-37.0); Monocytes # (A) 0.9 k/uL (0-1.0); Monocytes % (A) 6 %; Neutrophils # (A) 14.3 k/uL (1.3-7.7); Neutrophils % (A) 87 %; Platelet Count 296 k/uL (150-450); RBC 4.56 m/uL (4.30-5.90); RDW 14.5 % (11.5-15.5); WBC 16.5 k/uL (3.8-10.6)
[2023-03-16 06:38] LABS: African American GFR (CKD) >90 (>60 ml/min/1.73 sqM); Anion Gap 10 mmol/L; Blood Urea Nitrogen 27 mg/dL (9-20); Calcium 9.3 mg/dL (8.4-10.2); Carbon Dioxide 25 mmol/L (22-30); Chloride 106 mmol/L (98-107); Glucose 133 mg/dL (74-99); Non-African American GFR(CKD) >90 (>60 ml/min/1.73 sqM); Potassium 4.1 mmol/L (3.5-5.1); Sodium 141 mmol/L (137-145)
[2023-03-16] MEDS ORDERED: IV FLUID CONTINUATION 1,000 ML IV ONE (09:15)
[2023-03-16] MEDS ORDERED: PROPOFOL 10 MG/ML 20 ML VIAL IV ONE (09:15)
--- NOTE | 2023-03-16 09:31 | P.OP ---
Date of Procedure: 03/16/23 Preoperative Diagnosis: Nausea, vomiting, epigastric abdominal pain Postoperative Diagnosis: Antral gastritis Sliding hiatal hernia Mild esophagitis Procedure(s) Performed: EGD Anesthesia: MAC Surgeon: Rickie Pavon Pathology: other (Antrum, esophagus) Condition: stable Disposition: PACU Description of Procedure: The patient's placed on the endoscopy table in the lateral position. He received IV sedation. The gastroscope placed oropharynx passed in the esophagus and stomach. Scope was then placed through the pylorus. The first and second portion of the duodenum appeared normal. Scope was brought back the antrum appeared mildly inflamed. A biopsies performed. Scope was unretroflexed and remainder the stomach appeared normal. The GE junction was at 39 cm. The patient had a sliding hiatal hernia. The distal esophagus appeared mildly inflamed. A biopsies performed. The proximal esophagus appeared normal. Scope was withdrawn from the patient.
--- NOTE | 2023-03-16 09:48 | NM ---
EXAMINATION TYPE: NM hepatobiliary w CCK DATE OF EXAM: 03/16/2023 COMPARISON: NONE CLINICAL INDICATION: Male, 67 years old with history of abdominal pain; TECHNIQUE: After the intravenous administration of 4.7 mCi Tc 99m Mebrofenin hepatobiliary scintigrap hy is performed. Immediate images post injection. FINDINGS: There is satisfactory initial accumulation of tracer by the liver. The gallbladder is visualized wit hin 15 minutes. The small bowel activity is noted within 30 minutes. At one hour CCK was administer ed, patient was injected with 1.4 mcg of Kinevac, and gallbladder ejection fraction is calculated at 91%. IMPRESSION: Increased gallbladder ejection fraction of 91% may reflect hypercontractile state.
[2023-03-16] MEDS: PANTOPRAZOLE 40 MG/10 ML VIAL IVP SCH ×2 (10:11→19:59)
[2023-03-16] MEDS: DEXTROSE 5%-0.9% NACL 1,000 ML IV SCH (10:11)
[2023-03-16] MEDS: lisinopriL 5 MG TAB PO SCH (10:11)
[2023-03-16] MEDS: METOPROLOL TARTRATE 25 MG TAB PO SCH ×2 (10:11→20:00)
--- NOTE | 2023-03-16 11:52 | P.PN ---
Subjective Patient is a 67-year-old male with a known history of coronary artery disease status postcardiac catheterization no PCI, history of CVA/TIA, hypertension, hyperlipidemia, GERD and rheumatoid arthritis and history of incarcerated esophageal hernia and paraesophageal hernia repair and Frederick fundoplication and currently using marijuana presents to ER with complaints of nausea vomiting and coffee-ground emesis. Patient thinks it is his blood and is also complaining of left upper quadrant abdominal pain where he had hernia surgery/paraesophageal hernia repair. Patient was recently admitted to the hospital for epigastric abdominal pain and gastritis as well as acute sinusitis. Patient did complete his antibiotic course. Otherwise patient denies any complaints of fever or chills. No chest pain or shortness of breath. No diarrhea. No cough or sputum production. Denies any recent illnesses. Patient uses marijuana daily. CT of the abdomen pelvis showed a moderate hiatal hernia otherwise no evidence for acute abdominal process. Pancreas is within normal limits. No evidence for diverticulitis. Prostatomegaly and evidence of chronic bladder outlet obstruction with left lateral bladder diverticula. Laboratory data showed WBC 13.7 hemoglobin 15.3 and platelets 337 Sodium 140 potassium 4.3 chloride 102 bicarb is 21 BUN 25 creatinine 0.72 and blood sugar 208 FOBT positive 03/15/2023 Patient still complaining of from nausea vomiting with blood although he says is looks better than yesterday. History of complaining of from left-sided abdominal pain and tenderness radiating to the right side, described as sharp by the patient 60/10. He had a bowel movement yesterday. He is seated little bit. He says that his Zofran is not helping to make a D5 normal saline at 100 mL per hour. Continue with Protonix. No anticoagulation for possible GI bleed. Also patient with evidence of leukocytosis. Without positive occult blood in the stool. Priorcalcitonin and CRP are pending. Patient currently not on antibiotics as he has no fever. Follow-up further tests. On close monitoring period. His tachycardia is improving after he received beta julieta will close monitoring. Decreased dose of metoprolol 12.5-25 mg twice a day Continue with telemetry Problems and management plan discussed with patient and he is agreeable. Discussed with staff 03/16/2023 Patient is improving today. He still have nausea but he stopped vomiting of blood His left-sided abdominal pain and flank pain looks better He had a bowel movement yesterday. He still it's little bit. He had EGD today which was unremarkable. HIDA scan sewing ejection fraction 91% Surgery team start him on low-fat diet. Production calcitonin and CRP are pending. We'll repeat urine analysis. CBC still elevated at 16,000, patient has chronic leukocytosis around 11-12,000, tachycardia improved Objective - Vital Signs Vital signs: Vital Signs Temp 97.8 F 03/16/23 10:00 Pulse 78 03/16/23 10:45 Resp 20 03/16/23 10:00 BP 136/73 03/16/23 10:45 Pulse Ox 92 L 03/16/23 10:45 FiO2 Intake & Output 03/15/23 03/16/23 03/16/23 18:59 06:59 18:59 Intake Total 200 Output Total 50 Balance -50 200 Intake: IV 200 Output: Emesis 50 Other: # Voids 2 2 # Emeses 2 - Exam GENERAL: The patient is alert and oriented x3, not in any acute distress. Well developed, well nourished. HEENT: Pupils are round and equally reacting to light. EOMI. No scleral icterus. No conjunctival pallor. Normocephalic, atraumatic. No pharyngeal erythema. No thyromegaly. CARDIOVASCULAR: S1 and S2 present. No murmurs, rubs, or gallops. PULMONARY: Chest is clear to auscultation, no wheezing , no crackles. ABDOMEN: Soft, left-sided abdominal pain and tenderness, nondistended, normoactive bowel sounds. No palpable organomegaly. MUSCULOSKELETAL: No joint swelling or deformity. EXTREMITIES: No cyanosis, clubbing, or pedal edema. NEUROLOGICAL: Gross neurological examination did not reveal any focal deficits. SKIN: No rashes. no petechiae. - Labs CBC & Chem 7: 03/16/23 05:51 03/16/23 05:51 Labs: Abnormal Lab Results - Last 24 Hours (Table) 03/15/23 03/15/23 03/15/23 Range/Units 12:09 13:05 17:25 WBC (3.8-10.6) k/uL Neutrophils # (1.3-7.7) k/uL BUN (9-20) mg/dL Glucose (74-99) mg/dL POC Glucose (mg/dL) 148 H 121 H (70-110) mg/dL Hemoglobin A1c (<=6.0) % Ur Specific [place] 1.039 H (1.001-1.035) Urine Protein 2+ H (Negative) Urine Ketones 1+ H (Negative) Urine Blood Small H (Negative) Urine Mucus Moderate H (None) /hpf 03/15/23 03/16/23 03/16/23 Range/Units 20:52 05:51 05:51 WBC (3.8-10.6) k/uL Neutrophils # (1.3-7.7) k/uL BUN 27 H (9-20) mg/dL Glucose 133 H (74-99) mg/dL POC Glucose (mg/dL) 139 H (70-110) mg/dL Hemoglobin A1c 6.1 H (<=6.0) % Ur Specific [place] (1.001-1.035) Urine Protein (Negative) Urine Ketones (Negative) Urine Blood (Negative) Urine Mucus (None) /hpf 03/16/23 03/16/23 Range/Units 05:51 06:03 WBC 16.5 H (3.8-10.6) k/uL Neutrophils # 14.3 H (1.3-7.7) k/uL BUN (9-20) mg/dL Glucose (74-99) mg/dL POC Glucose (mg/dL) 129 H (70-110) mg/dL Hemoglobin A1c (<=6.0) % Ur Specific [place] (1.001-1.035) Urine Protein (Negative) Urine Ketones (Negative) Urine Blood (Negative) Urine Mucus (None) /hpf Assessment and Plan Assessment: Coffee-ground emesis. Possible acute upper GI bleed. Hemoglobin stable. Intractable nausea, vomiting and left upper quadrant abdominal pain. History of paraesophageal hernia repair and hiatal hernia repair Leukocytosis , present on admission History of CVA/TIA Hypertension Hyperlipidemia Rheumatoid arthritis Coronary artery disease with prior history of cardiac catheterization. Anxiety/depression Prior history of smoking Marijuana use Plan: Continue with IV hydration Continue with Protonix IV twice daily Continue with metoprolol and monitor heart rate and blood pressure Hold anticoagulation. Surgery team consult. Monitor hemoglobin. Labs and medication were reviewed.. Continue same treatment. Continue with sy mptomatic treatment. Resume home medication. Monitor labs and vitals. DVT and GI prophylaxis. Further recommendations as per clinical course of the patient DVT prophylaxis: SCD, no heparin GI Prophylaxis: Ppi Prognosis is guarded
[2023-03-16 12:19] LABS: Glucose,Whole Blood 347 mg/dL (70-110)
[2023-03-16] MEDS: SODIUM CHLORIDE 0.9% 1,000 ML IV SCH (13:33)
[2023-03-16 16:08] LABS: Appearance,Urine Clear (Clear); Bilirubin,Urine Negative (Negative); Blood,Urine Negative (Negative); Color,Urine Light Yellow; Glucose,Urine (UA) Negative (Negative); Ketones,Urine Negative (Negative); Leukocyte Esterase,Urine Negative (Negative); Nitrite,Urine Negative (Negative); PH, Urine 6.5 (5.0-8.0); Protein,Urine Trace (Negative); Urobilinogen,Urine <2.0 mg/dL (<2.0)
[2023-03-16 17:06] LABS: Glucose,Whole Blood 112 mg/dL (70-110)
[2023-03-16 20:18] LABS: Glucose,Whole Blood 144 mg/dL (70-110)
[2023-03-17] MEDS: SODIUM CHLORIDE 0.9% 1,000 ML IV SCH ×2 (03:25→20:30)
[2023-03-17] MEDS: ONDANSETRON 4 MG/2 ML VIAL IVP PRN ×3 (03:26→16:18)
[2023-03-17 05:49] LABS: Glucose,Whole Blood 112 mg/dL (70-110)
[2023-03-17] MEDS: INSULIN ASPART (NovoLOG) 100 UNIT/ML VIAL SQ SCH ×4 (05:55→20:43)
[2023-03-17 08:43] LABS: Basophils # (A) 0.02 X 10*3/uL (0.00-0.10); Basophils % (A) 0.1 %; Eosinophils # (A) 0 X 10*3/uL (0.04-0.35); Eosinophils % (A) 0 %; HCT 39.9 % (39.6-50.0); HGB 13.3 d/dL (13.0-17.0); Lymphocytes # (A) 1.11 X 10*3/uL (0.90-5.00); Lymphocytes % (A) 7.6 %; MCH 30.2 pg (27.0-32.0); MCHC 33.3 d/dL (32.0-37.0); MCV 90.5 FL (80.0-97.0); Monocytes # (A) 0.92 X 10*3/uL (0.20-1.00); Monocytes % (A) 6.3 %; NRBC Per 100 WBC 0 X 10*3/uL (0.00-0.01); Neutrophils % (A) 85.7 %; Platelet Count 266 X 10*3/uL (140-440); RBC 4.41 X 10*6/uL (4.40-5.60); RDW 14.6 % (11.5-14.5); WBC 14.69 X 10*3/uL (4.50-10.00)
[2023-03-17] MEDS: PANTOPRAZOLE 40 MG/10 ML VIAL IVP SCH ×2 (08:50→21:34)
[2023-03-17] MEDS: lisinopriL 5 MG TAB PO SCH (08:50)
[2023-03-17] MEDS: METOPROLOL TARTRATE 25 MG TAB PO SCH ×2 (08:51→21:34)
[2023-03-17 09:38] LABS: BUN/Creat Ratio 22.29 Ratio (12.00-20.00); Blood Urea Nitrogen 15.6 mg/dL (9.0-27.0); Calcium 8.7 mg/dL (8.7-10.3); Carbon Dioxide 25.3 mmol/L (21.6-31.8); Chloride 104 mmol/L (96-109); Glucose 106 mg/dL (70-110); Potassium 3.6 mmol/L (3.5-5.5); Sodium 140 mmol/L (135-145)
[2023-03-17 12:28] LABS: Glucose,Whole Blood 103 mg/dL (70-110)
--- NOTE | 2023-03-17 13:48 | P.PN ---
Progress Note - Text Progress Note Date: 03/17/23 CHIEF COMPLAINT: Dark emesis HISTORY OF PRESENT ILLNESS: Patient seen and examined as a follow-up for complaints of dark emesis 2 days with epigastric pain. Yesterday he underwent and EGD with findings of antral gastritis, sliding hiatal hernia, mild esophagitis. Today he states he has some nausea but no vomiting. Small appetite. He did eat some oatmeal this morning. Still has some epigastric discomfort. Yesterday he underwent HIDA scan with reported findings of increased gallbladder ejection fraction of 91% may reflect hyper contracted state. PHYSICAL EXAM: VITAL SIGNS: Reviewed. GENERAL: Well-developed in no acute distress. HEENT: No sclera icterus. Extraocular movements grossly intact. Moist buccal mucosa. Head is atraumatic, normocephalic. ABDOMEN: Soft. Nondistended. Mild epigastric tenderness. NEUROLOGIC: Alert and oriented. ASSESSMENT: 1. Coffee-ground emesis status post EGD with findings of antral gastritis, sliding hiatal hernia and mild esophagitis 2. Epigastric pain 3. Abnormal HIDA scan with gallbladder EF 91% PLAN: -Low fat Diet as tolerated -Protonix 40 mg daily -Antiemetics as needed -Nothing by mouth after midnight Monday -Plan for laparoscopic cholecystectomy Monday The impression and plan of care has been dictated as directed. I performed a history and examination of this patient, discussed the same with the dictator. I agree with the dictator's note ,documented as a scribe. Any additional findings or plans will be noted.
[2023-03-17 17:07] LABS: Glucose,Whole Blood 115 mg/dL (70-110)
[2023-03-17 20:37] LABS: Glucose,Whole Blood 104 mg/dL (70-110)
[2023-03-17] MEDS: PROMETHAZINE SUPPOSITORY 12.5 MG SUPP RECTAL PRN (21:35)
[2023-03-18] MEDS: ONDANSETRON 4 MG/2 ML VIAL IVP PRN ×2 (02:35→09:16)
--- NOTE | 2023-03-18 06:03 | P.PN ---
Subjective Patient is a 67-year-old male with a known history of coronary artery disease status postcardiac catheterization no PCI, history of CVA/TIA, hypertension, hyperlipidemia, GERD and rheumatoid arthritis and history of incarcerated esophageal hernia and paraesophageal hernia repair and Frederick fundoplication and currently using marijuana presents to ER with complaints of nausea vomiting and coffee-ground emesis. Patient thinks it is his blood and is also complaining of left upper quadrant abdominal pain where he had hernia surgery/paraesophageal hernia repair. Patient was recently admitted to the hospital for epigastric abdominal pain and gastritis as well as acute sinusitis. Patient did complete his antibiotic course. Otherwise patient denies any complaints of fever or chills. No chest pain or shortness of breath. No diarrhea. No cough or sputum production. Denies any recent illnesses. Patient uses marijuana daily. CT of the abdomen pelvis showed a moderate hiatal hernia otherwise no evidence for acute abdominal process. Pancreas is within normal limits. No evidence for diverticulitis. Prostatomegaly and evidence of chronic bladder outlet obstruction with left lateral bladder diverticula. Laboratory data showed WBC 13.7 hemoglobin 15.3 and platelets 337 Sodium 140 potassium 4.3 chloride 102 bicarb is 21 BUN 25 creatinine 0.72 and blood sugar 208 FOBT positive 03/15/2023 Patient still complaining of from nausea vomiting with blood although he says is looks better than yesterday. History of complaining of from left-sided abdominal pain and tenderness radiating to the right side, described as sharp by the patient 60/10. He had a bowel movement yesterday. He is seated little bit. He says that his Zofran is not helping to make a D5 normal saline at 100 mL per hour. Continue with Protonix. No anticoagulation for possible GI bleed. Also patient with evidence of leukocytosis. Without positive occult blood in the stool. Priorcalcitonin and CRP are pending. Patient currently not on antibiotics as he has no fever. Follow-up further tests. On close monitoring period. His tachycardia is improving after he received beta julieta will close monitoring. Decreased dose of metoprolol 12.5-25 mg twice a day Continue with telemetry Problems and management plan discussed with patient and he is agreeable. Discussed with staff 03/16/2023 Patient is improving today. He still have nausea but he stopped vomiting of blood His left-sided abdominal pain and flank pain looks better He had a bowel movement yesterday. He still it's little bit. He had EGD today which was unremarkable. HIDA scan sewing ejection fraction 91% Surgery team start him on low-fat diet. Production calcitonin and CRP are pending. We'll repeat urine analysis. CBC still elevated at 16,000, patient has chronic leukocytosis around 11-12,000, tachycardia improved 03/17/2023 Patient awake alert does not look in distress however uncomfortable persistent nausea however no more vomiting blood. Still have left-sided abdominal pain but feels better for him less than 6/10. He had a bowel movement this morning and will last night. He still is little bit with low appetite. Currently still has fluid within normal saline at 75 mL/h. Tachycardia is a little better Plan for laparoscopic cholecystectomy on Monday Objective - Vital Signs Vital signs: Vital Signs Temp 97.5 F L 03/17/23 08:00 Pulse 60 03/17/23 08:00 Resp 20 03/17/23 08:00 BP 187/86 03/17/23 08:00 Pulse Ox 99 03/17/23 08:00 FiO2 Intake & Output 03/16/23 03/17/23 03/17/23 18:59 06:59 18:59 Intake Total 200 Output Total 925 Balance 200 -925 Intake: IV 200 Output: Urine 875 Emesis 50 Other: Voiding Method Toilet # Voids 1 2 - Exam GENERAL: The patient is alert and oriented x3, not in any acute distress. Well developed, well nourished. HEENT: Pupils are round and equally reacting to light. EOMI. No scleral icterus. No conjunctival pallor. Normocephalic, atraumatic. No pharyngeal erythema. No thyromegaly. CARDIOVASCULAR: S1 and S2 present. No murmurs, rubs, or gallops. PULMONARY: Chest is clear to auscultation, no wheezing , no crackles. ABDOMEN: Soft, left-sided abdominal pain and tenderness, nondistended, normoactive bowel sounds. No palpable organomegaly. MUSCULOSKELETAL: No joint swelling or deformity. EXTREMITIES: No cyanosis, clubbing, or pedal edema. NEUROLOGICAL: Gross neurological examination did not reveal any focal deficits. SKIN: No rashes. no petechiae. - Labs CBC & Chem 7: 03/17/23 05:43 03/17/23 05:43 Labs: Abnormal Lab Results - Last 24 Hours (Table) 03/16/23 03/16/23 03/16/23 Range/Units 15:35 17:05 20:06 WBC (4.50-10.00) X 10*3/uL RDW (11.5-14.5) % Neutrophils # (1.80-7.70) X 10*3/uL Eosinophils # (0.04-0.35) X 10*3/uL BUN/Creatinine Ratio (12.00-20.00) Ratio POC Glucose (mg/dL) 112 H 144 H (70-110) mg/dL Urine Protein Trace H (Negative) 03/17/23 03/17/23 03/17/23 Range/Units 05:43 05:43 05:47 WBC 14.69 H (4.50-10.00) X 10*3/uL RDW 14.6 H (11.5-14.5) % Neutrophils # 12.60 H (1.80-7.70) X 10*3/uL Eosinophils # 0 L (0.04-0.35) X 10*3/uL BUN/Creatinine Ratio 22.29 H (12.00-20.00) Ratio POC Glucose (mg/dL) 112 H (70-110) mg/dL Urine Protein (Negative) Assessment and Plan Assessment: Coffee-ground emesis. Possible acute upper GI bleed. Hemoglobin stable. Intractable nausea, vomiting and left upper quadrant abdominal pain. History of paraesophageal hernia repair and hiatal hernia repair Leukocytosis , present on admission History of CVA/TIA Hypertension Hyperlipidemia Rheumatoid arthritis Coronary artery disease with prior history of cardiac catheterization. Anxiety/depression Prior history of smoking Marijuana use Plan: Continue with IV hydration Continue with Protonix IV twice daily Continue with metoprolol and monitor heart rate and blood pressure Hold anticoagulation. Surgery team consult. Monitor hemoglobin. Labs and medication were reviewed.. Continue same treatment. Continue with symptomatic treatment. Resume home medication. Monitor labs and vitals. DVT and GI prophylaxis. Further recommendations as per clinical course of the patient DVT prophylaxis: SCD, no heparin GI Prophylaxis: Ppi Prognosis is guarded
[2023-03-18 06:14] LABS: Glucose,Whole Blood 116 mg/dL (70-110)
[2023-03-18] MEDS: INSULIN ASPART (NovoLOG) 100 UNIT/ML VIAL SQ SCH ×4 (06:18→20:39)
[2023-03-18] MEDS: SODIUM CHLORIDE 0.9% 1,000 ML IV SCH ×2 (06:45→18:37)
[2023-03-18] MEDS: MORPHINE SULFATE 2 MG/ML SYRINGE IVP PRN ×2 (10:31→18:32)
[2023-03-18] MEDS: PANTOPRAZOLE 40 MG/10 ML VIAL IVP SCH ×2 (10:32→20:40)
[2023-03-18] MEDS: PROMETHAZINE SUPPOSITORY 12.5 MG SUPP RECTAL PRN (10:32)
[2023-03-18] MEDS: METOPROLOL TARTRATE 25 MG TAB PO SCH ×2 (10:33→20:40)
[2023-03-18] MEDS: lisinopriL 5 MG TAB PO SCH (10:33)
[2023-03-18 11:48] LABS: Glucose,Whole Blood 111 mg/dL (70-110)
[2023-03-18] MEDS ORDERED: SODIUM CHLORIDE 0.9% 1,000 ML IV ONE (16:01)
--- NOTE | 2023-03-18 16:01 | P.PN ---
Subjective Progress Note Date: 03/18/23 CHIEF COMPLAINT: Abdominal pain, GI bleed HISTORY OF PRESENT ILLNESS: The patient is a 67-year-old male with abdominal pain with gallbladder disorder, hyperkinesis. He vomited lunch today and was nauseous with breakfast. He is having intermittent abdominal pain. ROS: No fevers or chills. No new chest pain. No productive sputum PHYSICAL EXAM: VITAL SIGNS: Reviewed CONSTITUTIONAL: Well developed and in no acute distress. EYES: Conjuctivae without sclera icterus. Extraocular movements grossly intact. HEAD, EARS, NOSE, THROAT: Moist buccal mucosa. Head is atraumatic, normocephalic. Hears conversational speech. No nasal drainage. RESPIRATORY: Non-labored respirations and equal bilateral excursions. CARDIOVASCULAR: Palpable 2+ radial pulses. ABDOMEN: No peritonitis. Right upper quadrant pain. MUSCULOSKELETAL: No gross deformity of the lower extremities noted. No clubbing. No cyanosis. SKIN: Good skin turgor. Well perfused. NEUROLOGIC: Cranial nerves II through XII grossly intact. No focal or lateralizing signs. PSYCH: Appropriate affect. Alert and oriented to person, place and time. CLINICAL LABS: Reviewed. WBC elevated over 14,000. Hemoglobin normal REPORT: EGD report with antritis, sliding hiatal hernia. ASSESSMENT: 1. Hyperkinetic gallbladder disorder 2. Abdominal pain 3. Hiatal hernia 4. Leukocytosis PLAN: 1. He has symptomatic gallbladder disorder where he may benefit from cholecystectomy 2. Recommend scheduled anti-nausea medications 3. Recommend fluid bolus for nausea. Objective - Vital Signs Vital signs: Vital Signs Temp 98.3 F 03/18/23 07:25 Pulse 87 03/18/23 08:00 Resp 15 03/18/23 08:00 BP 162/88 03/18/23 07:25 Pulse Ox 97 03/18/23 07:25 FiO2 Intake & Output 03/17/23 03/18/23 03/18/23 18:59 06:59 18:59 Intake Total 618 Output Total 300 400 Balance 318 -400 Intake: Intake, IV Titration 500 Amount Sodium Chloride 0.9% 1, 500 000 ml @ 75 mls/hr IV . [id number] [facility] Rx#:[id number] Oral 118 Output: Urine 300 400 Other: Voiding Method Toilet Toilet - Labs CBC & Chem 7: 03/17/23 05:43 03/17/23 05:43 Labs: Abnormal Lab Results - Last 24 Hours (Table) 03/17/23 03/18/23 03/18/23 Range/Units 17:05 06:09 11:47 POC Glucose (mg/dL) 115 H 116 H 111 H (70-110) mg/dL
[2023-03-18 17:23] LABS: Glucose,Whole Blood 110 mg/dL (70-110)
[2023-03-18] MEDS: ONDANSETRON 4 MG/2 ML VIAL IVP SCH (18:33)
--- NOTE | 2023-03-18 20:14 | P.PN ---
Subjective Patient is a 67-year-old male with a known history of coronary artery disease status postcardiac catheterization no PCI, history of CVA/TIA, hypertension, hyperlipidemia, GERD and rheumatoid arthritis and history of incarcerated esophageal hernia and paraesophageal hernia repair and Frederick fundoplication and currently using marijuana presents to ER with complaints of nausea vomiting and coffee-ground emesis. Patient thinks it is his blood and is also complaining of left upper quadrant abdominal pain where he had hernia surgery/paraesophageal hernia repair. Patient was recently admitted to the hospital for epigastric abdominal pain and gastritis as well as acute sinusitis. Patient did complete his antibiotic course. Otherwise patient denies any complaints of fever or chills. No chest pain or shortness of breath. No diarrhea. No cough or sputum production. Denies any recent illnesses. Patient uses marijuana daily. CT of the abdomen pelvis showed a moderate hiatal hernia otherwise no evidence for acute abdominal process. Pancreas is within normal limits. No evidence for diverticulitis. Prostatomegaly and evidence of chronic bladder outlet obstruction with left lateral bladder diverticula. Laboratory data showed WBC 13.7 hemoglobin 15.3 and platelets 337 Sodium 140 potassium 4.3 chloride 102 bicarb is 21 BUN 25 creatinine 0.72 and blood sugar 208 FOBT positive 03/15/2023 Patient still complaining of from nausea vomiting with blood although he says is looks better than yesterday. History of complaining of from left-sided abdominal pain and tenderness radiating to the right side, described as sharp by the patient 60/10. He had a bowel movement yesterday. He is seated little bit. He says that his Zofran is not helping to make a D5 normal saline at 100 mL per hour. Continue with Protonix. No anticoagulation for possible GI bleed. Also patient with evidence of leukocytosis. Without positive occult blood in the stool. Priorcalcitonin and CRP are pending. Patient currently not on antibiotics as he has no fever. Follow-up further tests. On close monitoring period. His tachycardia is improving after he received beta julieta will close monitoring. Decreased dose of metoprolol 12.5-25 mg twice a day Continue with telemetry Problems and management plan discussed with patient and he is agreeable. Discussed with staff 03/16/2023 Patient is improving today. He still have nausea but he stopped vomiting of blood His left-sided abdominal pain and flank pain looks better He had a bowel movement yesterday. He still it's little bit. He had EGD today which was unremarkable. HIDA scan sewing ejection fraction 91% Surgery team start him on low-fat diet. Production calcitonin and CRP are pending. We'll repeat urine analysis. CBC still elevated at 16,000, patient has chronic leukocytosis around 11-12,000, tachycardia improved 03/17/2023 Patient awake alert does not look in distress however uncomfortable persistent nausea however no more vomiting blood. Still have left-sided abdominal pain but feels better for him less than 6/10. He had a bowel movement this morning and will last night. He still is little bit with low appetite. Currently still has fluid within normal saline at 75 mL/h. Tachycardia is a little better Plan for laparoscopic cholecystectomy on Monday03/18/2023 Patient GI symptoms however his nausea is well controlled with Phenergan and he'll like to keep it. We started Phenergan yesterday and has not tolerated diet well and he is eating 50-75% We recommend to keep least amount of medication and lower doses of possible especially patient is started eating well, his vitals and labs look stable and therefore I would recommend lowering the IV fluid to 50 mL/h Patient is planned for laparoscopic cholecystectomy on Monday with surgery team Objective - Vital Signs Vital signs: Vital Signs Temp 98.7 F 03/18/23 14:00 Pulse 76 03/18/23 14:00 Resp 15 03/18/23 14:00 BP 167/94 03/18/23 14:00 Pulse Ox 99 03/18/23 14:00 FiO2 Intake & Output 03/18/23 03/18/23 03/19/23 06:59 18:59 06:59 Output Total 400 900 Balance -400 -900 Output: Urine 400 900 Other: Voiding Method Toilet Toilet - Exam GENERAL: The patient is alert and oriented x3, not in any acute distress. Well developed, well nourished. HEENT: Pupils are round and equally reacting to light. EOMI. No scleral icterus. No conjunctival pallor. Normocephalic, atraumatic. No pharyngeal erythema. No thyromegaly. CARDIOVASCULAR: S1 and S2 present. No murmurs, rubs, or gallops. PULMONARY: Chest is clear to auscultation, no wheezing , no crackles. ABDOMEN: Soft, left-sided abdominal pain and tenderness, nondistended, normoactive bowel sounds. No palpable organomegaly. MUSCULOSKELETAL: No joint swelling or deformity. EXTREMITIES: No cyanosis, clubbing, or pedal edema. NEUROLOGICAL: Gross neurological examination did not reveal any focal deficits. SKIN: No rashes. no petechiae. - Labs CBC & Chem 7: 03/17/23 05:43 03/17/23 05:43 Labs: Abnormal Lab Results - Last 24 Hours (Table) 03/18/23 03/18/23 Range/Units 06:09 11:47 POC Glucose (mg/dL) 116 H 111 H (70-110) mg/dL Assessment and Plan Assessment: Coffee-ground emesis. Possible acute upper GI bleed. Hemoglobin stable. Intractable nausea, vomiting and left upper quadrant abdominal pain. History of paraesophageal hernia repair and hiatal hernia repair Leukocytosis , present on admission History of CVA/TIA Hypertension Hyperlipidemia Rheumatoid arthritis Coronary artery disease with prior history of cardiac catheterization. Anxiety/depression Prior history of smoking Marijuana use Plan: Continue with IV hydration normal saline 50 mL/h Phenergan for nausea vomiting Continue with Protonix IV twice daily Continue with metoprolol and monitor heart rate and blood pressure Hold anticoagulation. Surgery team consult. With plan for laparoscopic cholecystectomy on Monday Monitor hemoglobin. Labs and medication were reviewed.. Continue same treatment. Continue with symptomatic treatment. Resume home medication. Monitor labs and vitals. DVT and GI prophylaxis. Further recommendations as per clinical course of the patient DVT prophylaxis: SCD, no heparin GI Prophylaxis: Ppi Prognosis is guarded
[2023-03-18] MEDS: METOCLOPRAMIDE 5 MG/ML 2 ML VIAL IVP SCH (20:45)
[2023-03-18 20:46] LABS: Glucose,Whole Blood 117 mg/dL (70-110)
[2023-03-19] MEDS: ONDANSETRON 4 MG/2 ML VIAL IVP SCH ×5 (00:57→21:44)
[2023-03-19] MEDS: METOCLOPRAMIDE 5 MG/ML 2 ML VIAL IVP SCH ×4 (05:35→18:31)
[2023-03-19] MEDS: INSULIN ASPART (NovoLOG) 100 UNIT/ML VIAL SQ SCH ×4 (06:14→21:13)
[2023-03-19 06:32] LABS: Glucose,Whole Blood 92 mg/dL (70-110)
[2023-03-19] MEDS: lisinopriL 5 MG TAB PO SCH (09:33)
[2023-03-19] MEDS: METOPROLOL TARTRATE 25 MG TAB PO SCH ×2 (09:33→21:44)
[2023-03-19] MEDS: PANTOPRAZOLE 40 MG/10 ML VIAL IVP SCH ×2 (09:33→21:44)
[2023-03-19 11:26] LABS: Glucose,Whole Blood 148 mg/dL (70-110)
[2023-03-19] MEDS: SODIUM CHLORIDE 0.9% 1,000 ML IV SCH (13:22)
[2023-03-19] MEDS ORDERED: SODIUM CHLORIDE 0.9% 2,000 ML IV ONE (14:48)
--- NOTE | 2023-03-19 14:48 | P.PN ---
Subjective Progress Note Date: 03/19/23 CHIEF COMPLAINT: Abdominal pain, GI bleed HISTORY OF PRESENT ILLNESS: The patient is a 67-year-old male with abdominal pain with gallbladder disorder, hyperkinesis. He has not vomited today after fluid bolus yesterday. He still reports right upper quadrant pain. His urine is very concentrated. He is trying to drink more fluids. ROS: No fevers or chills. No new chest pain. No productive sputum PHYSICAL EXAM: VITAL SIGNS: Reviewed CONSTITUTIONAL: Well developed and in no acute distress. EYES: Conjuctivae without sclera icterus. Extraocular movements grossly intact. HEAD, EARS, NOSE, THROAT: Moist buccal mucosa. Head is atraumatic, normocephalic. Hears conversational speech. No nasal drainage. RESPIRATORY: Non-labored respirations and equal bilateral excursions. CARDIOVASCULAR: Palpable 2+ radial pulses. ABDOMEN: No peritonitis. Right upper quadrant pain. MUSCULOSKELETAL: No gross deformity of the lower extremities noted. No clubbing. No cyanosis. SKIN: Good skin turgor. Well perfused. NEUROLOGIC: Cranial nerves II through XII grossly intact. No focal or lateralizing signs. PSYCH: Appropriate affect. Alert and oriented to person, place and time. CLINICAL LABS: Reviewed. BSG under 200. ASSESSMENT: 1. Hyperkinetic gallbladder disorder 2. Abdominal pain 3. Hiatal hernia 4. Leukocytosis 5. Dehydration 6. Intractable nausea and vomiting 7. Right upper quadrant pain PLAN: 1. He is very dehydrated with concentrated urine. Recommend 2-L normal saline b olus. 2. Agree with cholecystectomy for symptomatic gallbladder disorder. Objective - Vital Signs Vital signs: Vital Signs Temp 99.0 F 03/19/23 08:00 Pulse 85 03/19/23 08:00 Resp 15 03/19/23 08:00 BP 147/78 03/19/23 08:00 Pulse Ox 97 03/19/23 08:00 FiO2 Intake & Output 03/18/23 03/19/23 03/19/23 18:59 06:59 18:59 Output Total 900 450 Balance -900 -450 Output: Urine 900 450 Other: Voiding Method Toilet Toilet Toilet # Voids 0 - Labs CBC & Chem 7: 03/17/23 05:43 03/17/23 05:43 Labs: Abnormal Lab Results - Last 24 Hours (Table) 03/18/23 03/19/23 Range/Units 20:39 11:24 POC Glucose (mg/dL) 117 H 148 H (70-110) mg/dL
[2023-03-19] MEDS ORDERED: HYDROmorphone 1 MG/ML 1 ML SYRINGE IVP PRN (14:49)
[2023-03-19 17:23] LABS: Glucose,Whole Blood 113 mg/dL (70-110)
--- NOTE | 2023-03-19 19:55 | P.PN ---
Subjective Patient is a 67-year-old male with a known history of coronary artery disease status postcardiac catheterization no PCI, history of CVA/TIA, hypertension, hyperlipidemia, GERD and rheumatoid arthritis and history of incarcerated esophageal hernia and paraesophageal hernia repair and Frederick fundoplication and currently using marijuana presents to ER with complaints of nausea vomiting and coffee-ground emesis. Patient thinks it is his blood and is also complaining of left upper quadrant abdominal pain where he had hernia surgery/paraesophageal hernia repair. Patient was recently admitted to the hospital for epigastric abdominal pain and gastritis as well as acute sinusitis. Patient did complete his antibiotic course. Otherwise patient denies any complaints of fever or chills. No chest pain or shortness of breath. No diarrhea. No cough or sputum production. Denies any recent illnesses. Patient uses marijuana daily. CT of the abdomen pelvis showed a moderate hiatal hernia otherwise no evidence for acute abdominal process. Pancreas is within normal limits. No evidence for diverticulitis. Prostatomegaly and evidence of chronic bladder outlet obstruction with left lateral bladder diverticula. Laboratory data showed WBC 13.7 hemoglobin 15.3 and platelets 337 Sodium 140 potassium 4.3 chloride 102 bicarb is 21 BUN 25 creatinine 0.72 and blood sugar 208 FOBT positive 03/15/2023 Patient still complaining of from nausea vomiting with blood although he says is looks better than yesterday. History of complaining of from left-sided abdominal pain and tenderness radiating to the right side, described as sharp by the patient 60/10. He had a bowel movement yesterday. He is seated little bit. He says that his Zofran is not helping to make a D5 normal saline at 100 mL per hour. Continue with Protonix. No anticoagulation for possible GI bleed. Also patient with evidence of leukocytosis. Without positive occult blood in the stool. Priorcalcitonin and CRP are pending. Patient currently not on antibiotics as he has no fever. Follow-up further tests. On close monitoring period. His tachycardia is improving after he received beta julieta will close monitoring. Decreased dose of metoprolol 12.5-25 mg twice a day Continue with telemetry Problems and management plan discussed with patient and he is agreeable. Discussed with staff 03/16/2023 Patient is improving today. He still have nausea but he stopped vomiting of blood His left-sided abdominal pain and flank pain looks better He had a bowel movement yesterday. He still it's little bit. He had EGD today which was unremarkable. HIDA scan sewing ejection fraction 91% Surgery team start him on low-fat diet. Production calcitonin and CRP are pending. We'll repeat urine analysis. CBC still elevated at 16,000, patient has chronic leukocytosis around 11-12,000, tachycardia improved 03/17/2023 Patient awake alert does not look in distress however uncomfortable persistent nausea however no more vomiting blood. Still have left-sided abdominal pain but feels better for him less than 6/10. He had a bowel movement this morning and will last night. He still is little bit with low appetite. Currently still has fluid within normal saline at 75 mL/h. Tachycardia is a little better Plan for laparoscopic cholecystectomy on Monday03/18/2023 Patient GI symptoms however his nausea is well controlled with Phenergan and he'll like to keep it. We started Phenergan yesterday and has not tolerated diet well and he is eating 50-75% We recommend to keep least amount of medication and lower doses of possible especially patient is started eating well, his vitals and labs look stable and therefore I would recommend lowering the IV fluid to 50 mL/h Patient is planned for laparoscopic cholecystectomy on Monday with surgery team 03/19/2023 Patient reports improvement today. He has no nausea vomiting. He has minimal no abdominal pain. He tolerates diet. No other new complaint Patient will pressure is somewhat elevated with systolic blood pressure 160-180. Currently is better 120/70. However earlier his blood pressure was elevated. Therefore we add hydralazine when necessary for hypertension On the top of that patient is getting 2 L of normal saline. Also patient was given scheduled doses of Zofran and reglan , although pt denies nausea and vomiting currently . Therefore we recommend to cut down on his anti- emetic to avoid potential side effect we will defer the management of anti-emetic medication to surgery team on the case as patient planned to undergo laparoscopic cholecystectomy tomorrow with surgery team Objective - Vital Signs Vital signs: Vital Signs Temp 98.4 F 03/19/23 14:00 Pulse 74 03/19/23 14:00 Resp 16 03/19/23 14:00 BP 128/76 03/19/23 14:00 Pulse Ox 100 03/19/23 14:00 FiO2 Intake & Output 03/19/23 03/19/23 03/20/23 06:59 18:59 06:59 Output Total 450 Balance -450 Output: Urine 450 Other: Voiding Method Toilet Toilet # Voids 0 2 - Exam GENERAL: The patient is alert and oriented x3, not in any acute distress. Well developed, well nourished. HEENT: Pupils are round and equally reacting to light. EOMI. No scleral icterus. No conjunctival pallor. Normocephalic, atraumatic. No pharyngeal erythema. No thyromegaly. CARDIOVASCULAR: S1 and S2 present. No murmurs, rubs, or gallops. PULMONARY: Chest is clear to auscultation, no wheezing , no crackles. ABDOMEN: Soft, left-sided abdominal pain and tenderness, nondistended, normoact gisell bowel sounds. No palpable organomegaly. MUSCULOSKELETAL: No joint swelling or deformity. EXTREMITIES: No cyanosis, clubbing, or pedal edema. NEUROLOGICAL: Gross neurological examination did not reveal any focal deficits. SKIN: No rashes. no petechiae. - Labs CBC & Chem 7: 03/17/23 05:43 03/17/23 05:43 Labs: Abnormal Lab Results - Last 24 Hours (Table) 03/18/23 03/19/23 03/19/23 Range/Units 20:39 11:24 17:21 POC Glucose (mg/dL) 117 H 148 H 113 H (70-110) mg/dL Assessment and Plan Assessment: Coffee-ground emesis. Possible acute upper GI bleed. Hemoglobin stable. Intractable nausea, vomiting and left upper quadrant abdominal pain. History of paraesophageal hernia repair and hiatal hernia repair Leukocytosis , present on admission History of CVA/TIA Hypertension Hyperlipidemia Rheumatoid arthritis Coronary artery disease with prior history of cardiac catheterization. Anxiety/depression Prior history of smoking Marijuana use Plan: Discontinue normal saline 50 mL/h Phenergan for nausea vomiting as needed Continue with Protonix IV twice daily Continue with metoprolol and monitor heart rate and blood pressure. We will add hydralazine when necessary Hold anticoagulation given his recent history of upper GI bleed with vomiting which is stopped now. Surgery team consult. With plan for laparoscopic cholecystectomy on Monday Monitor hemoglobin. Labs and medication were reviewed.. Continue same treatment. Continue with symptomatic treatment. Resume home medication. Monitor labs and vitals. DVT and GI prophylaxis. Further recommendations as per clinical course of the patient DVT prophylaxis: SCD, no heparin GI Prophylaxis: Ppi Prognosis is guarded
[2023-03-19 20:39] LABS: Glucose,Whole Blood 155 mg/dL (70-110)
[2023-03-20] MEDS: METOCLOPRAMIDE 5 MG/ML 2 ML VIAL IVP SCH ×4 (01:00→17:56)
[2023-03-20] MEDS: ONDANSETRON 4 MG/2 ML VIAL IVP SCH ×4 (03:32→20:42)
[2023-03-20 05:35] LABS: Glucose,Whole Blood 117 mg/dL (70-110)
[2023-03-20] MEDS: INSULIN ASPART (NovoLOG) 100 UNIT/ML VIAL SQ SCH ×4 (05:35→20:53)
[2023-03-20] MEDS: METOPROLOL TARTRATE 25 MG TAB PO SCH ×2 (08:24→20:40)
[2023-03-20] MEDS: lisinopriL 5 MG TAB PO SCH (08:24)
[2023-03-20] MEDS: PANTOPRAZOLE 40 MG/10 ML VIAL IVP SCH ×2 (08:24→20:43)
[2023-03-20 09:08] LABS: African American GFR (CKD) >90 (>60 ml/min/1.73 sqM); Anion Gap 8 mmol/L; Blood Urea Nitrogen 11 mg/dL (9-20); Calcium 8.4 mg/dL (8.4-10.2); Carbon Dioxide 28 mmol/L (22-30); Chloride 102 mmol/L (98-107); Glucose 100 mg/dL (74-99); Non-African American GFR(CKD) >90 (>60 ml/min/1.73 sqM); Potassium 3.3 mmol/L (3.5-5.1); Sodium 138 mmol/L (137-145)
[2023-03-20] MEDS ORDERED: LACTATED RINGERS 1,000 ML IV ONE ×2 (09:10→11:05)
[2023-03-20] MEDS ORDERED: HEPARIN SODIUM,PORCINE/PF 5,000 UNIT/0.5 ML SYRINGE SQ ONE (09:48)
[2023-03-20] MEDS ORDERED: HEPARIN SODIUM,PORCINE 5,000 UNIT/ML 1 ML VIAL SQ ONE (09:50)
[2023-03-20] MEDS ORDERED: ROCURONIUM 10 MG/ML (5 ML VIAL) IV ONE (10:00)
[2023-03-20] MEDS ORDERED: LIDOCAINE 2% (PF) 20 MG/ML 5 ML VIAL ONE ×2 (10:00)
[2023-03-20] MEDS ORDERED: HYDROmorphone (PF) 1 MG/ML ONE (10:00)
[2023-03-20] MEDS ORDERED: PROPOFOL 10 MG/ML 20 ML VIAL IV ONE (10:00)
[2023-03-20] MEDS ORDERED: PHENYLEPHRINE-0.9% NACL SYG 1,000 MCG/10 ML SYRINGE ONE (10:00)
[2023-03-20] MEDS ORDERED: NEOSTIGMINE 1 MG/ML 10 ML VIAL ONE (10:00)
[2023-03-20] MEDS ORDERED: MIDAZOLAM 2 MG/2 ML VIAL ONE (10:00)
[2023-03-20] MEDS ORDERED: GLYCOPYRROLATE 0.2 MG/ML 2 ML VIAL ONE (10:00)
[2023-03-20] MEDS ORDERED: SUCCINYLCHOLINE CHLORIDE 200 MG/10 ML VIAL IV ONE (10:00)
[2023-03-20] MEDS ORDERED: fentaNYL (PF) 50 MCG/ML 2 ML AMP ONE (10:00)
[2023-03-20] MEDS ORDERED: BUPIVACAINE (PF) 0.25% 30 ML VIAL SQ ONE (10:34)
--- NOTE | 2023-03-20 10:55 | P.OP ---
Date of Procedure: 03/20/23 Preoperative Diagnosis: Cholecystitis Postoperative Diagnosis: Cholecystitis Procedure(s) Performed: Laparoscopic cholecystectomy Anesthesia: CHANCE Surgeon: Rickie Pavon Estimated Blood Loss (ml): 5 Pathology: other (Gallbladder) Condition: stable Disposition: PACU Description of Procedure: The patient was placed on the operating table. The patient received a general endotracheal tube anesthesia. The patients abdomen was prepped and draped in the usual sterile fashion. Through an infraumbilical stab incision, the fascia of the anterior abdominal wall was grasped with a pair of Kochers and then the Veress needle was placed in the peritoneal cavity. Position of the Veress needle was confirmed with positive drop test. The abdomen was then insufflated. After adequate insufflation, the 10 mm trocar was placed in the peritoneal cavity. Following this the laparoscope was placed in the peritoneal cavity. The patient was placed in the head-up, right side up position and then a 5 mm trocar was placed in the right lateral and right subcostal position under direct visualization. A 8 mm trocar was placed in the epigastric position. The gallbladder was grasped in the fundus and infundibulum. Traction on the gallbladder was placed in the lateral and the cephalad positions. The triangle of Calot was visualized.. The cystic duct was bluntly dissected until the union of the cystic duct and common bile duct was seen. A critical view of safety was achieved. The cystic duct was then divided and sealed with the Harmonic scissors. A PDS Endoloop was then placed throughout the cystic duct stump. The cystic artery divided and sealed with the Harmonic scissors. The gallbladder was then removed from the liver bed using Harmonic scissors. The gallbladder was then extracted through the epigastric port site. Operative field was checked for any bleeding spots and Harmonic scissors was used to coagulate the liver bed. The abdomen was irrigated. The trocars were removed. The skin was closed using interrupted 3-0 Vicryl suture. Dermabond dressing were applied. The patient tolerated the procedure well.
[2023-03-20] MEDS ORDERED: HYDROmorphone 0.5 MG/0.5 ML SYRINGE IVP ONE ×2 (11:13→11:22)
[2023-03-20] MEDS ORDERED: ONDANSETRON 4 MG/2 ML VIAL IVP ONE (11:21)
[2023-03-20 12:52] LABS: Glucose,Whole Blood 132 mg/dL (70-110)
[2023-03-20] MEDS: SODIUM CHLORIDE 0.9% 1,000 ML IV SCH ×2 (13:01→20:41)
[2023-03-20 13:57] LABS: Basophils % (A) 0 %; Eosinophils # (A) 0.1 k/uL (0-0.7); Eosinophils % (A) 1 %; HCT 41.9 % (39.0-53.0); HGB 14.4 gm/dL (13.0-17.5); Lymphocytes % (A) 11 %; MCH 31.4 pg (25.0-35.0); MCHC 34.2 g/dL (31.0-37.0); MCV 91.6 fL (80.0-100.0); Mean Platelet Volume 10.1; Monocytes # (A) 0.7 k/uL (0-1.0); Monocytes % (A) 7 %; Neutrophils # (A) 7.8 k/uL (1.3-7.7); Neutrophils % (A) 80 %; Platelet Count 209 k/uL (150-450); RBC 4.58 m/uL (4.30-5.90); RDW 13.8 % (11.5-15.5); WBC 9.7 k/uL (3.8-10.6)
[2023-03-20 17:49] LABS: Glucose,Whole Blood 95 mg/dL (70-110)
[2023-03-20 20:40] LABS: Glucose,Whole Blood 118 mg/dL (70-110)
[2023-03-20] MEDS: HYDROmorphone 1 MG/ML 1 ML SYRINGE IVP PRN (20:50)
[2023-03-21] MEDS: METOCLOPRAMIDE 5 MG/ML 2 ML VIAL IVP SCH ×3 (01:04→15:36)
[2023-03-21] MEDS: ONDANSETRON 4 MG/2 ML VIAL IVP SCH ×4 (04:24→16:57)
[2023-03-21] MEDS: SODIUM CHLORIDE 0.9% 1,000 ML IV SCH ×2 (04:24→16:56)
[2023-03-21 06:11] LABS: Glucose,Whole Blood 116 mg/dL (70-110)
[2023-03-21] MEDS: INSULIN ASPART (NovoLOG) 100 UNIT/ML VIAL SQ SCH ×2 (06:16→15:32)
[2023-03-21] MEDS: HYDROmorphone 1 MG/ML 1 ML SYRINGE IVP PRN (06:21)
[2023-03-21] MEDS ORDERED: HYDROcodone/APAP 5-325MG 1 EACH TAB PO PRN (08:12)
[2023-03-21] MEDS: METOPROLOL TARTRATE 25 MG TAB PO SCH (08:22)
[2023-03-21] MEDS: lisinopriL 5 MG TAB PO SCH (08:22)
[2023-03-21] MEDS: PANTOPRAZOLE 40 MG/10 ML VIAL IVP SCH (08:22)
--- NOTE | 2023-03-21 10:58 | P.PN ---
Subjective Date of service for this note is 03/20/2023 Patient is a 67-year-old male with a known history of coronary artery disease status postcardiac catheterization no PCI, history of CVA/TIA, hypertension, hyperlipidemia, GERD and rheumatoid arthritis and history of incarcerated esophageal hernia and paraesophageal hernia repair and Frederick fundoplication and currently using marijuana presents to ER with complaints of nausea vomiting and coffee-ground emesis. Patient thinks it is his blood and is also complaining of left upper quadrant abdominal pain where he had hernia surgery/paraesophageal hernia repair. Patient was recently admitted to the hospital for epigastric abdominal pain and gastritis as well as acute sinusitis. Patient did complete his antibiotic course. Otherwise patient denies any complaints of fever or chills. No chest pain or shortness of breath. No diarrhea. No cough or sputum production. Denies any recent illnesses. Patient uses marijuana daily. CT of the abdomen pelvis showed a moderate hiatal hernia otherwise no evidence for acute abdominal process. Pancreas is within normal limits. No evidence for diverticulitis. Prostatomegaly and evidence of chronic bladder outlet obstruction with left lateral bladder diverticula. Laboratory data showed WBC 13.7 hemoglobin 15.3 and platelets 337 Sodium 140 potassium 4.3 chloride 102 bicarb is 21 BUN 25 creatinine 0.72 and blood sugar 208 FOBT positive 03/15/2023 Patient still complaining of from nausea vomiting with blood although he says is looks better than yesterday. History of complaining of from left-sided abdominal pain and tenderness radiating to the right side, described as sharp by the patient 60/10. He had a bowel movement yesterday. He is seated little bit. He says that his Zofran is not helping to make a D5 normal saline at 100 mL per hour. Continue with Protonix. No anticoagulation for possible GI bleed. Also patient with evidence of leukocytosis. Without positive occult blood in the stool. Priorcalcitonin and CRP are pending. Patient currently not on antibiotics as he has no fever. Follow-up further tests. On close monitoring period. His tachycardia is improving after he received beta julieta will close monitoring. Decreased dose of metoprolol 12.5-25 mg twice a day Continue with telemetry Problems and management plan discussed with patient and he is agreeable. Discussed with staff 03/16/2023 Patient is improving today. He still have nausea but he stopped vomiting of blood His left-sided abdominal pain and flank pain looks better He had a bowel movement yesterday. He still it's little bit. He had EGD today which was unremarkable. HIDA scan sewing ejection fraction 91% Surgery team start him on low-fat diet. Production calcitonin and CRP are pending. We'll repeat urine analysis. CBC still elevated at 16,000, patient has chronic leukocytosis around 11-12,000, tachycardia improved 03/17/2023 Patient awake alert does not look in distress however uncomfortable persistent nausea however no more vomiting blood. Still have left-sided abdominal pain but feels better for him less than 6/10. He had a bowel movement this morning and will last night. He still is little bit with low appetite. Currently still has fluid within normal saline at 75 mL/h. Tachycardia is a little better Plan for laparoscopic cholecystectomy on Monday03/18/2023 Patient GI symptoms however his nausea is well controlled with Phenergan and he'll like to keep it. We started Phenergan yesterday and has not tolerated diet well and he is eating 50-75% We recommend to keep least amount of medication and lower doses of possible especially patient is started eating well, his vitals and labs look stable and therefore I would recommend lowering the IV fluid to 50 mL/h Patient is planned for laparoscopic cholecystectomy on Monday with surgery team 03/19/2023 Patient reports improvement today. He has no nausea vomiting. He has minimal no abdominal pain. He tolerates diet. No other new complaint Patient will pressure is somewhat elevated with systolic blood pressure 160-180. Currently is better 120/70. However earlier his blood pressure was elevated. Therefore we add hydralazine when necessary for hypertension On the top of that patient is getting 2 L of normal saline. Also patient was given scheduled doses of Zofran and reglan , although pt denies nausea and vomiting currently . Therefore we recommend to cut down on his anti- emetic to avoid potential side effect we will defer the management of anti-emetic medication to surgery team on the case as patient planned to undergo laparoscopic cholecystectomy tomorrow with surgery team 03/20/2023 patient is seen and examined by me at bedside on 03/20 He status post laparoscopic cholecystectomy this morning he has moderate pain and nausea which is expected postoperatively. Still did not start diet yet. One hemodynamically stable. Continue with Protonix, hydration and pain management Objective - Vital Signs Vital signs: Vital Signs Temp 98.4 F 03/21/23 08:00 Pulse 78 03/21/23 08:00 Resp 16 03/21/23 08:00 BP 171/86 03/21/23 08:00 Pulse Ox 96 03/21/23 08:00 FiO2 Intake & Output 03/20/23 03/21/23 03/21/23 18:59 06:59 18:59 Intake Total 1100 Output Total 1355 1300 Balance -255 -1300 Intake: IV 1100 Output: Urine 1350 1300 Estimated Blood Loss 5 Other: Voiding Method Toilet - Exam GENERAL: The patient is alert and oriented x3, not in any acute distress. Well developed, well nourished. HEENT: Pupils are round and equally reacting to light. EOMI. No scleral icterus. No conjunctival pallor. Normocephalic, atraumatic. No pharyngeal erythema. No thyromegaly. CARDIOVASCULAR: S1 and S2 present. No murmurs, rubs, or gallops. PULMONARY: Chest is clear to auscultation, no wheezing , no crackles. ABDOMEN: Soft, left-sided abdominal pain and tenderness, nondistended, normoactive bowel sounds. No palpable organomegaly. MUSCULOSKELETAL: No joint swelling or deformity. EXTREMITIES: No cyanosis, clubbing, or pedal edema. NEUROLOGICAL: Gross neurological examination did not reveal any focal deficits. SKIN: No rashes. no petechiae. - Labs CBC & Chem 7: 03/20/23 12:32 03/20/23 08:18 Labs: Abnormal Lab Results - Last 24 Hours (Table) 03/20/23 03/20/23 03/20/23 Range/Units 12:32 12:51 20:35 Neutrophils # 7.8 H (1.3-7.7) k/uL POC Glucose (mg/dL) 132 H 118 H (70-110) mg/dL 03/21/23 Range/Units 06:09 Neutrophils # (1.3-7.7) k/uL POC Glucose (mg/dL) 116 H (70-110) mg/dL Assessment and Plan Assessment: Coffee-ground emesis. Possible acute upper GI bleed. Hemoglobin stable. Intractable nausea, vomiting and left upper quadrant abdominal pain. Secondary to cholecystitis. Status post laparoscopic cholecystectomy on 03/20 History of paraesophageal hernia repair and hiatal hernia repair Leukocytosis , present on admission History of CVA/TIA Hypertension Hyperlipidemia Rheumatoid arthritis Coronary artery disease with prior history of cardiac catheterization. Anxiety/depression Prior history of smoking Marijuana use Plan: Continue with pain management Phenergan for nausea vomiting as needed Continue with Protonix IV twice daily Continue with metoprolol and monitor heart rate and blood pressure. We will add hydralazine when necessary Hold anticoagulation given his recent history of upper GI bleed with vomiting which is stopped now. Surgery team consult. Monitor hemoglobin. Labs and medication were reviewed.. Continue same treatment. Continue with symptomatic treatment. Resume home medication. Monitor labs and vitals. DVT and GI prophylaxis. Further recommendations as per clinical course of the patient DVT prophylaxis: SCD, no heparin GI Prophylaxis: Ppi Prognosis is guarded
[2023-03-21 12:03] LABS: Glucose,Whole Blood 106 mg/dL (70-110)
--- NOTE | 2023-03-21 14:21 | P.PN ---
Subjective Progress Note Date: 03/21/23 CHIEF COMPLAINT: Abdominal pain HISTORY OF PRESENT ILLNESS: Patient postop day #1 status post laparoscopic cholecystectomy. Patient had eaten some of the breakfast this morning. Afterwards he reports he had his usual cough and phlegm which caused him to gag and he didn't eat any more of the breakfast. He reports his pain is controlled. He has tolerated lunch. He is having flatus. No bowel movement. Afebrile. Potassium low at 3.0 PHYSICAL EXAM: VITAL SIGNS: Reviewed. GENERAL: Well-developed in no acute distress. ABDOMEN: Soft. Nondistended. Tenderness at incision sites. Incision sites clean dry and intact NEUROLOGIC: Alert and oriented. Cranial nerves II through XII grossly intact. ASSESSMENT: 1. Cholecystitis status post laparoscopic cholecystectomy 2. Status post EGD revealing antral gastritis, sliding hiatal hernia and mild esophagitis 3. Hypokalemia PLAN: -Patient can be discharged from surgical standpoint with outpatient follow up -replaced potassium Physician Director Of Individual Giving note has been reviewed by physician. Signing provider agrees with the documented findings, assessment, and plan of care. Objective - Vital Signs Vital signs: Vital Signs Temp 98.4 F 03/21/23 08:00 Pulse 78 03/21/23 08:00 Resp 16 03/21/23 08:00 BP 171/86 03/21/23 08:00 Pulse Ox 96 03/21/23 08:00 FiO2 Intake & Output 03/20/23 03/21/23 03/21/23 18:59 06:59 18:59 Intake Total 1100 Output Total 1355 1300 Balance -255 -1300 Intake: IV 1100 Output: Urine 1350 1300 Estimated Blood Loss 5 Other: Voiding Method Toilet - Labs CBC & Chem 7: 03/20/23 12:32 03/21/23 10:27 Labs: Abnormal Lab Results - Last 24 Hours (Table) 03/20/23 03/20/23 03/20/23 Range/Units 12:32 12:51 20:35 Neutrophils # 7.8 H (1.3-7.7) k/uL Potassium (3.5-5.1) mmol/L POC Glucose (mg/dL) 132 H 118 H (70-110) mg/dL 03/21/23 03/21/23 Range/Units 06:09 10:27 Neutrophils # (1.3-7.7) k/uL Potassium 3.0 L (3.5-5.1) mmol/L POC Glucose (mg/dL) 116 H (70-110) mg/dL
[2023-03-21] MEDS: POTASSIUM CHLORIDE ER 20 MEQ TAB.ER PO SCH ×2 (15:36→17:35)
[2023-03-21 15:50] VITALS: BP 143/79; PULSE 68; RESP 15; TEMP 98.8
[2023-03-21 17:13] LABS: Glucose,Whole Blood 130 mg/dL (70-110)
--- NOTE | 2023-03-24 23:55 | P.DS ---
Providers Date of admission: 03/14/23 16:21 Attending physician: Keegan Hagan Consults: 03/14/23 16:21 Consult Physician Urgent Consulting Provider: Rickie Pavon Consult Reason/Comments: Upper GI bleed Do you want consulting provider notified?: Yes Primary care physician: Misael Hopkins Hospital Course: Final Diagnosis Coffee-ground emesis status post EGD revealing antral gastritis Intractable nausea, vomiting and left upper quadrant abdominal pain. Secondary to cholecystitis. Status post laparoscopic cholecystectomy on 03/20 History of paraesophageal hernia repair and hiatal hernia repair Leukocytosis , present on admission improved Hypokalemia History of CVA/TIA Hypertension Hyperlipidemia Rheumatoid arthritis Coronary artery disease with prior history of cardiac catheterization. Anxiety/depression Prior history of smoking Marijuana use Discharge Disposition Patient is stable for discharge home. Status post laproscopic cholecystectomy. Patient is tolerating advanced diet. He is instructed to continue with incentive spirometer 10 x an hour while awake. Continue with bowel regimen while using narcotics for pain management. Continue on omeprazole 20 mg BID. Follow up with PCP Dr. Hopkins in 1 to 2 days. Patient has a follow up with Dr. Pavon on 03/27/23. Patient needs to repeat his labs in 2 to 3 days to monitor the potassium level. Hospital Course Patient is a 67-year-old male with a known history of coronary artery disease status postcardiac catheterization no PCI, history of CVA/TIA, hypertension, hyperlipidemia, GERD and rheumatoid arthritis and history of incarcerated esophageal hernia and paraesophageal hernia repair and Frederick fundoplication and currently using marijuana presents to ER with complaints of nausea vomiting and coffee-ground emesis. Patient thinks it is his blood and is also complaining of left upper quadrant abdominal pain where he had hernia surgery/paraesophageal hernia repair. Patient was recently admitted to the hospital for epigastric abdominal pain and gastritis as well as acute sinusitis. Patient did complete his antibiotic course. CT of the abdomen pelvis showed a moderate hiatal hernia otherwise no evidence for acute abdominal process. Pancreas is within normal limits. No evidence for diverticulitis. Prostatomegaly and evidence of chronic bladder outlet obstruction with left lateral bladder diverticula. Laboratory data showed WBC 13.7 hemoglobin 15.3 and platelets 337. Fecal occult was positive. Electrolytes are WNL. Patient was admitted to the hospital with consult placed to general surgery. He had EGD which shows antral gastritis sliding hiatal hernia and mild esophagitis. HIDA scan sewing ejection fraction 91%. Patient was offered low fat diet. Patient received supportive care with pain medication and antiemetics and his abdominal pain was improving. He was hydrated. Patient underwent laproscopic cholecystectomy. He is tolerating diet, minimal abdominal pain, no nausea. No chest pain no shortness of breath. He has positive bowel sounds and passing gas. He is using incentive spirometer. He did require oral potassium supplementation. He will be discharged home with the above mentioned recommendations. Please see medication reconciliation for a list of current medications. Thank you for allowing us to participate in the care of this patient. The impression and plan of care has been dictated by Desiree Clarke Nurse Practitioner as directed. Dr. Cyndi MD I have performed a history and physical examination and medical decision making of this patient, discussed the same with the dictator, and agree with the dictators assessment and plan as written, documented as a scribe. Based on total visit time, I have performed more than 50% of this visit. Patient Condition at Discharge: Stable Plan - Discharge Summary Discharge Rx Participant: Yes New Discharge Prescriptions: New HYDROcodone/APAP 5-325MG [[place] 5-325] 1 tab PO Q6HR PRN 3 Days #12 tab PRN Reason: Pain Potassium Chloride ER [K-Dur 20] 20 meq PO DAILY #10 tab Continue Metoprolol Tartrate [Lopressor] 12.5 mg PO BID Omeprazole 20 mg PO AC-BID Albuterol Sulfate [Proair Hfa] 2 puff INHALATION RT-Q6H PRN PRN Reason: Shortness Of Breath Cholecalciferol [Vitamin D3 (25 Mcg = 1000 Iu)] 100 mcg PO DAILY Magnesium 250 mg PO DAILY lisinopriL [Zestril] 5 mg PO DAILY #30 tab Cyanocobalamin (Vitamin B-12) [Vitamin B-12] 1,000 mcg PO DAILY Discharge Medication List Metoprolol Tartrate [Lopressor] 12.5 mg PO BID 08/20/18 [History] Albuterol Sulfate [Proair Hfa] 2 puff INHALATION RT-Q6H PRN 08/06/20 [History] Omeprazole 20 mg PO AC-BID 08/06/20 [History] lisinopriL [Zestril] 5 mg PO DAILY #30 tab 11/06/22 [Rx] Cholecalciferol [Vitamin D3 (25 Mcg = 1000 Iu)] 100 mcg PO DAILY 03/14/23 [History] Cyanocobalamin (Vitamin B-12) [Vitamin B-12] 1,000 mcg PO DAILY 03/14/23 [History] Magnesium 250 mg PO DAILY 03/14/23 [History] HYDROcodone/APAP 5-325MG [[place] 5-325] 1 tab PO Q6HR PRN 3 Days #12 tab 03/21/23 [Rx] Potassium Chloride ER [K-Dur 20] 20 meq PO DAILY #10 tab 03/21/23 [Rx] Follow up Appointment(s)/Referral(s): Misael Hopkins MD [Primary Care Provider] - 1-2 days Rickie Pavon MD [STAFF PHYSICIAN] - 03/27/23 12:30 pm Ambulatory/Diagnostic Orders: Basic Metabolic Panel [LAB.AMB] Time Frame: 3 Days, Location: None Selected Activity/Diet/Wound Care/Special Instructions: Diet as tolerated Continue to use incentive spirometer 10 x an hour while awake Continue with bowel regimen while using narcotics for pain management. Can wear abdominal binder as needed Discharge Disposition: HOME SELF-CARE
== END 2023-03-21 18:51 | disposition home or self-care (01) | DRG 356 ==
LOC: EC 11:54 → OBSVTOIN 16:21 → INTOOBSV 16:21 → 6NMEDSUR 16:21
PROVIDERS: ADMIT Internal Medicine; ATTEND Internal Medicine
PROC: 0DB68ZX Excision of Stomach, Via Natural or Artificial Opening Endoscopic, Diagnostic (ICD-10-PCS; 2023-03-16)
PROC: 0FT44ZZ Resection of Gallbladder, Percutaneous Endoscopic Approach (ICD-10-PCS; principal; 2023-03-20 09:50)
DX: K21.01 Gastro-esophageal reflux disease with esophagitis, with bleeding (principal); K29.71 Gastritis, unspecified, with bleeding; K81.9 Cholecystitis, unspecified; E78.5 Hyperlipidemia, unspecified; E86.0 Dehydration; E87.6 Hypokalemia; F12.90 Cannabis use, unspecified, uncomplicated; F32.A Depression, unspecified; F41.9 Anxiety disorder, unspecified; I10 Essential (primary) hypertension; I25.10 Atherosclerotic heart disease of native coronary artery without angina pectoris; J44.9 Chronic obstructive pulmonary disease, unspecified; K44.9 Diaphragmatic hernia without obstruction or gangrene; M06.9 Rheumatoid arthritis, unspecified; N32.3 Diverticulum of bladder; N40.0 Benign prostatic hyperplasia without lower urinary tract symptoms; Z79.4 Long term (current) use of insulin; Z79.899 Other long term (current) drug therapy; Z86.73 Personal history of transient ischemic attack (TIA), and cerebral infarction without residual deficits; Z87.19 Personal history of other diseases of the digestive system; Z87.891 Personal history of nicotine dependence
CPT/HCPCS: 36415; 43239; 71045; 74177; 78227; 80048; 80053; 81001; 81003; 82272; 83036; 83605; 84132; 84145; 85025; 85610; 85730; 86140; 86850; 86900; 86901; 88304; 88305; 96361; 96372; 96374; 96376; 99285

== ENCOUNTER 2023-08-07 18:08 | Inpatient (IN) | payer MEDICARE, OTHER ==
--- NOTE | 2023-08-07 18:24 | ED ---
Abdominal Pain HPI - General Source: patient, family, RN notes reviewed Mode of arrival: ambulatory Limitations: no limitations - History of Present Illness MD Complaint: abdominal pain <Gricelda Downing - Last Filed: 08/07/23 18:27> <Wilian Romano - Last Filed: 08/21/23 06:48> - General Chief Complaint: Abdominal Pain Stated Complaint: Abd Pain Time Seen by Provider: 08/07/23 18:14 - History of Present Illness Initial Comments: Quick Note: This is a 67 year old male who presents to the emergency department for abdominal pain, nausea, and vomiting. Symptoms have been going on for over 24 hours at this point. Pain is in the upper abdomen with radiation around the back. Denies any sick contacts. (Gricelda Downing) - Related Data Home Medications Medication Instructions Recorded Confirmed Metoprolol Tartrate [Lopressor] 12.5 mg PO BID 08/20/18 08/08/23 Nitroglycerin Sl Tabs [Nitrostat] 0.4 mg SUBLINGUAL Q5M PRN 08/08/23 08/08/23 Sertraline [Zoloft] 25 mg PO DAILY 08/08/23 08/08/23 busPIRone HCL [Buspar] 7.5 mg PO BID 08/08/23 08/08/23 Previous Rx's Medication Instructions Recorded lisinopriL [Zestril] 5 mg PO DAILY #30 tab 11/06/22 Pantoprazole [Protonix] 40 mg PO DAILY #30 tab 08/10/23 Allergies Allergy/AdvReac Type Severity Reaction Status Date / Time No Known Allergies Allergy Verified 08/08/23 09:14 Review of Systems ROS Other: All systems not noted in ROS Statement are negative. <Gricelda Downing - Last Filed: 08/07/23 18:27> ROS Other: All systems not noted in ROS Statement are negative. <Wilian Romano - Last Filed: 08/21/23 06:48> ROS Statement: Those systems with pertinent positive or pertinent negative responses have been documented in the HPI. Past Medical History Past Medical History: Asthma, Coronary Artery Disease (CAD), Chest Pain / Angin a, CVA/TIA, GERD/Reflux, Hyperlipidemia, Hypertension, Pneumonia, Rheumatoid Arthritis (RA) Additional Past Medical History / Comment(s): MIGRAINES, HEART MURMUR, hx HIATAL HERNIA, ANEMIA, one dr told him he had a stroke at one time-no effects, varicose veins, history of incarcerated per esophageal hernia, status post robotic-assisted paraesophageal hernia repair and Frederick fundoplication on 04/12/2022. History of Any Multi-Drug Resistant Organisms: None Reported Past Surgical History: Heart Catheterization, Hernia Repair, Orthopedic Surgery Additional Past Surgical History / Comment(s): Lt achilles tendon,RT SHOULDER surgery, RT ACHILLES TENDON reattached, HEMORRHOIDECTOMY, 13 FATTY TUMORS removed. left hand index finger surgery after injury, EGD WITH DILATION, paraesophageal hernia repair with Frederick fundoplication on 04/12/2022. Past Anesthesia/Blood Transfusion Reactions: No Reported Reaction Additional Past Anesthesia/Blood Transfusion Reaction / Comment(s): no hx blood transfusion Past Psychological History: Anxiety, Depression Smoking Status: Former smoker Past Alcohol Use History: None Reported Additional Past Alcohol Use History / Comment(s): QUIT SMOKING 1999, APPROX SMOKED 20 YRS, 1-2PPD. pt states hx alcoholism Past Drug Use History: Marijuana Additional Drug Use History / Comment(s): CURRENTLY USES MARIJUANA - Past Family History Mother Family Medical History: Cancer Father Additional Family Medical History / Comment(s): thinks aneurysm <Gricelda Downing - Last Filed: 08/07/23 18:27> General Exam <Gricelda Downing - Last Filed: 08/07/23 18:27> Limitations: no limitations General appearance: alert Head exam: Present: atraumatic, normocephalic Eye exam: Present: normal appearance. Absent: scleral icterus, conjunctival i njection ENT exam: Present: normal oropharynx Neck exam: Present: normal inspection Respiratory exam: Present: normal lung sounds bilaterally. Absent: respiratory distress, wheezes, rales, rhonchi, stridor, accessory muscle use Cardiovascular Exam: Present: normal rhythm, tachycardia, normal heart sounds. Absent: systolic murmur, diastolic murmur, rubs, gallop GI/Abdominal exam: Present: soft, tenderness. Absent: distended, guarding, rebound, rigid, mass, pulsatile mass, hernia Extremities exam: Present: normal inspection, normal capillary refill. Absent: pedal edema, calf tenderness Back exam: Present: normal inspection. Absent: CVA tenderness (R), CVA tenderness (L) Neurological exam: Present: alert Skin exam: Present: warm, dry, intact, normal color. Absent: rash <Wilian Romano - Last Filed: 08/21/23 06:48> - General Exam Comments Initial Comments: Visual Physical Exam Vital signs reviewed General: In acute distress. Head: Normocephalic, atraumatic Eyes: PERRLA, EOMI ENT: Airway patent Chest: Nonlabored breathing Skin: No visual rash, normal skin tone Neuro: Alert and oriented 3 Musculoskeletal: No gross abnormalities (Gricelda Downing) Course Vital Signs 08/07/23 08/07/23 08/07/23 18:27 22:25 23:27 Temperature 98.4 F 99 F Pulse Rate 122 H 95 98 Respiratory 18 19 17 Rate Blood Pressure 179/105 193/105 180/102 O2 Sat by Pulse 98 95 95 Oximetry 08/08/23 08/08/23 08/08/23 02:00 06:00 08:00 Temperature Pulse Rate 98 86 102 H Respiratory 18 18 18 Rate Blood Pressure 141/90 168/104 181/102 O2 Sat by Pulse 95 96 96 Oximetry 08/08/23 08/08/23 08/08/23 09:00 10:00 13:00 Temperature 98.4 F Pulse Rate 92 98 102 H Respiratory 18 18 20 Rate Blood Pressure 154/93 171/96 184/103 O2 Sat by Pulse 97 96 98 Oximetry 08/08/23 08/08/23 15:57 16:03 Temperature Pulse Rate 110 H 102 H Respiratory 20 20 Rate Blood Pressure 160/100 140/100 O2 Sat by Pulse 98 96 Oximetry Medical Decision Making <Gricelda Downing - Last Filed: 08/07/23 18:27> - Lab Data Result diagrams: 08/10/23 06:58 08/10/23 06:58 - EKG Data -: EKG Interpreted by Me EKG shows normal: sinus rhythm, axis (Normal), intervals (Normal) Rate: tachycardia (Rate 109 BPM) Interpretation: nonspecific ST-T wave changes <Wilian Romano - Last Filed: 08/21/23 06:48> - Medical Decision Making I performed the QuickNote portion of this chart. Signed Gricelda Downing PA-C. (Vogley,Gricelda) The patient had CT scan of the abdomen and pelvis which by my interpretation does show hiatal hernia. There is no evident bowel obstruction or perforation. The patient does continue to have intractable nausea and vomiting as well as some abdominal discomfort even after multiple rounds of medication. The patient will be admitted for further symptom management as well as surgical consu ltation. Was pt. sent in by a medical professional or institution (, [facility], [facility], urgent care, hospital, or jail...) When possible be specific @ -[No] Did you speak to anyone other than the patient for history (EMS, parent, family, police, friend...)? What history was obtained from this source @ -[No] Did you review nursing and triage notes (agree or disagree)? Why? @ -[I reviewed and agree with nursing and triage notes] Were old charts reviewed (outside hosp., previous admission, EMS record, old EKG, old radiological studies, urgent care reports/EKG's, jail records)? Report findings @ -[No old charts were reviewed] Differential Diagnosis (chest pain, altered mental status, abdominal pain women, abdominal pain men, vaginal bleeding, weakness, fever, dyspnea, syncope, headache, dizziness, GI bleed, back pain, seizure, CVA, palpatations, mental health, musculoskeletal)? @ -[Differential Abdominal Pain Men: Appendicitis, cholecystitis, diverticulosis, ischemic bowel, pancreatitis, hepatitis, UTI, gastroenteritis, AAA, incarcerated hernia, bowel obstruction, constipation, inflammatory bowel, hepatitis, peptic ulcer disease, splenic infarction, perforated viscus, testicular torsion, this is not meant to be an all-inclusive list EKG interpreted by me (3pts min.). @ -[As above] X-rays interpreted by me (1pt min.). @ -[None done] CT interpreted by me (1pt min.). @ -[I interpreted as above U/S interpreted by me (1pt. min.). @ -[None done] What testing was considered but not performed or refused? (CT, X-rays, U/S, labs)? Why? @ -[None] What meds were considered but not given or refused? Why? @ -[None] Did you discuss the management of the patient with other professionals (professionals i.e. , [facility], [facility], lab, RT, psych nurse, social work supervisor, hotel or motel manager, teacher, correction officer city or county jail, case operator)? Give summary @ -[Case discussed with the admitting physician and treatment recommendations incorporated Was smoking cessation discussed for >3mins.? @ -[No] Was critical care preformed (if so, how long)? @ -[No] Were there social determinants of health that impacted care today? How? (Homelessness, low income, unemployed, alcoholism, drug addiction, transp ortation, low edu. Level, literacy, decrease access to med. care, residential, rehab)? @ -[No] Was there de-escalation of care discussed even if they declined (Discuss DNR or withdrawal of care, Hospice)? DNR status @ -[No] What co-morbidities impacted this encounter? (DM, HTN, Smoking, COPD, CAD, Cancer, CVA, ARF, Chemo, Hep., AIDS, mental health diagnosis, sleep apnea, morbid obesity)? @ -[None] Was patient admitted / discharged? Hospital course, mention meds given and route, prescriptions, significant lab abnormalities, going to OR and other pertinent info. @ -[Will be admitted to have further symptom management as well as surgical consultation. Undiagnosed new problem with uncertain prognosis? @ -[No] Drug Therapy requiring intensive monitoring for toxicity (Heparin, Nitro, Insulin, Cardizem)? @ -[No] Were any procedures done? @ -[No] Diagnosis/symptom? @ -[Intractable nausea and vomiting Abdominal pain GI bleeding, acute Acute, or Chronic, or Acute on Chronic? @ -[Acute Uncomplicated (without systemic symptoms) or Complicated (systemic symptoms)? @ -[Uncomplicated Side effects of treatment? @ -[No] Exacerbation, Progression, or Severe Exacerbation? @ -[No] Poses a threat to life or bodily function? How? (Chest pain, [place], [place], pneumonia, PE, COPD, DKA, ARF, appy, cholecystitis, CVA, Diverticulitis, Homicidal, Suicidal, threat to staff... and all critical care pts) @ -[No] (Wilian Romano) - Lab Data Lab Results 08/07/23 08/07/23 08/07/23 Range/Units 18:50 18:50 18:50 WBC 13.5 H (3.8-10.6) k/uL RBC 4.77 (4.30-5.90) m/uL Hgb 15.2 (13.0-17.5) gm/dL Hct 44.2 (39.0-53.0) % MCV 92.8 (80.0-100.0) fL MCH 31.9 (25.0-35.0) pg MCHC 34.4 (31.0-37.0) g/dL RDW 14.2 (11.5-15.5) % Plt Count 333 (150-450) k/uL MPV 9.5 Neutrophils % 87 % Lymphocytes % 5 % Monocytes % 7 % Eosinophils % 0 % Basophils % 0 % Neutrophils # 11.7 H (1.3-7.7) k/uL Lymphocytes # 0.7 L (1.0-4.8) k/uL Monocytes # 1.0 (0-1.0) k/uL Eosinophils # 0.0 (0-0.7) k/uL Basophils # 0.0 (0-0.2) k/uL Sodium 141 (137-145) mmol/L Potassium 3.9 (3.5-5.1) mmol/L Chloride 105 (98-107) mmol/L Carbon Dioxide 22 (22-30) mmol/L Anion Gap 14 mmol/L BUN 21 H (9-20) mg/dL Creatinine 0.78 (0.66-1.25) mg/dL Est GFR (CKD-EPI)AfAm >90 (>60 ml/min/1.73 sqM) Est GFR (CKD-EPI)NonAf >90 (>60 ml/min/1.73 sqM) Glucose 184 H (74-99) mg/dL Lactic Ac Sepsis Rflx Plasma Lactic Acid Jack 2.7 H* (0.7-2.0) mmol/L Calcium 9.6 (8.4-10.2) mg/dL Magnesium 1.9 (1.6-2.3) mg/dL Total Bilirubin 0.9 (0.2-1.3) mg/dL AST 33 (17-59) U/L ALT 26 (4-49) U/L Alkaline Phosphatase 101 (38-126) U/L Total Protein 7.7 (6.3-8.2) g/dL Albumin 4.9 (3.5-5.0) g/dL Amylase 97 (30-110) U/L Lipase 33 (23-300) U/L Urine Color Urine Appearance (Clear) Urine pH (5.0-8.0) Ur Specific Leonard (1.001-1.035) Urine Protein (Negative) Urine Glucose (UA) (Negative) Urine Ketones (Negative) Urine Blood (Negative) Urine Nitrite (Negative) Urine Bilirubin (Negative) Urine Urobilinogen (<2.0) mg/dL Ur Leukocyte Esterase (Negative) Urine RBC (0-5) /hpf Urine WBC (0-5) /hpf Hyaline Casts (0-2) /lpf Urine Mucus (None) /hpf Gastric Occult Blood (Negative) Influenza Type A (PCR) (Not Detectd) Influenza Type B (PCR) (Not Detectd) RSV (PCR) (Not Detectd) SARS-CoV-2 (PCR) (Not Detectd) 08/07/23 08/07/23 08/07/23 Range/Units 18:50 19:48 23:05 WBC (3.8-10.6) k/uL RBC (4.30-5.90) m/uL Hgb (13.0-17.5) gm/dL Hct (39.0-53.0) % MCV (80.0-100.0) fL MCH (25.0-35.0) pg MCHC (31.0-37.0) g/dL RDW (11.5-15.5) % Plt Count (150-450) k/uL MPV Neutrophils % % Lymphocytes % % Monocytes % % Eosinophils % % Basophils % % Neutrophils # (1.3-7.7) k/uL Lymphocytes # (1.0-4.8) k/uL Monocytes # (0-1.0) k/uL Eosinophils # (0-0.7) k/uL Basophils # (0-0.2) k/uL Sodium (137-145) mmol/L Potassium (3.5-5.1) mmol/L Chloride (98-107) mmol/L Carbon Dioxide (22-30) mmol/L Anion Gap mmol/L BUN (9-20) mg/dL Creatinine (0.66-1.25) mg/dL Est GFR (CKD-EPI)AfAm (>60 ml/min/1.73 sqM) Est GFR (CKD-EPI)NonAf (>60 ml/min/1.73 sqM) Glucose (74-99) mg/dL Lactic Ac Sepsis Rflx Y Plasma Lactic Acid Jack 3.3 H* (0.7-2.0) mmol/L Calcium (8.4-10.2) mg/dL Magnesium (1.6-2.3) mg/dL Total Bilirubin (0.2-1.3) mg/dL AST (17-59) U/L ALT (4-49) U/L Alkaline Phosphatase (38-126) U/L Total Protein (6.3-8.2) g/dL Albumin (3.5-5.0) g/dL Amylase (30-110) U/L Lipase (23-300) U/L Urine Color Urine Appearance (Clear) Urine pH (5.0-8.0) Ur Specific Leonard (1.001-1.035) Urine Protein (Negative) Urine Glucose (UA) (Negative) Urine Ketones (Negative) Urine Blood (Negative) Urine Nitrite (Negative) Urine Bilirubin (Negative) Urine Urobilinogen (<2.0) mg/dL Ur Leukocyte Esterase (Negative) Urine RBC (0-5) /hpf Urine WBC (0-5) /hpf Hyaline Casts (0-2) /lpf Urine Mucus (None) /hpf Gastric Occult Blood (Negative) Influenza Type A (PCR) Not Detected (Not Detectd) Influenza Type B (PCR) Not Detected (Not Detectd) RSV (PCR) Not Detected (Not Detectd) SARS-CoV-2 (PCR) Not Detected (Not Detectd) 08/07/23 08/07/23 08/08/23 Range/Units 23:27 23:46 00:01 WBC (3.8-10.6) k/uL RBC (4.30-5.90) m/uL Hgb (13.0-17.5) gm/dL Hct (39.0-53.0) % MCV (80.0-100.0) fL MCH (25.0-35.0) pg MCHC (31.0-37.0) g/dL RDW (11.5-15.5) % Plt Count (150-450) k/uL MPV Neutrophils % % Lymphocytes % % Monocytes % % Eosinophils % % Basophils % % Neutrophils # (1.3-7.7) k/uL Lymphocytes # (1.0-4.8) k/uL Monocytes # (0-1.0) k/uL Eosinophils # (0-0.7) k/uL Basophils # (0-0.2) k/uL Sodium (137-145) mmol/L Potassium (3.5-5.1) mmol/L Chloride (98-107) mmol/L Carbon Dioxide (22-30) mmol/L Anion Gap mmol/L BUN (9-20) mg/dL Creatinine (0.66-1.25) mg/dL Est GFR (CKD-EPI)AfAm (>60 ml/min/1.73 sqM) Est GFR (CKD-EPI)NonAf (>60 ml/min/1.73 sqM) Glucose (74-99) mg/dL Lactic Ac Sepsis Rflx Y Plasma Lactic Acid Jack (0.7-2.0) mmol/L Calcium (8.4-10.2) mg/dL Magnesium (1.6-2.3) mg/dL Total Bilirubin (0.2-1.3) mg/dL AST (17-59) U/L ALT (4-49) U/L Alkaline Phosphatase (38-126) U/L Total Protein (6.3-8.2) g/dL Albumin (3.5-5.0) g/dL Amylase (30-110) U/L Lipase (23-300) U/L Urine Color Yellow Urine Appearance Clear (Clear) Urine pH 6.0 (5.0-8.0) Ur Specific Leonard 1.031 (1.001-1.035) Urine Protein 2+ H (Negative) Urine Glucose (UA) Trace H (Negative) Urine Ketones 2+ H (Negative) Urine Blood Negative (Negative) Urine Nitrite Negative (Negative) Urine Bilirubin Negative (Negative) Urine Urobilinogen <2.0 (<2.0) mg/dL Ur Leukocyte Esterase Negative (Negative) Urine RBC 1 (0-5) /hpf Urine WBC 2 (0-5) /hpf Hyaline Casts 15 H (0-2) /lpf Urine Mucus Many H (None) /hpf Gastric Occult Blood Positive (Negative) Influenza Type A (PCR) (Not Detectd) Influenza Type B (PCR) (Not Detectd) RSV (PCR) (Not Detectd) SARS-CoV-2 (PCR) (Not Detectd) Disposition <Gricelda Downing - Last Filed: 08/07/23 18:27> Is patient prescribed a controlled substance at d/c from ED?: No <Wilian Romano - Last Filed: 08/21/23 06:48> Clinical Impression: Intractable nausea and vomiting, Abdominal pain, Upper GI bleed Disposition: ADMITTED IP TO THIS HOSP Condition: Good
[2023-08-07 19:12] LABS: Basophils % (A) 0 %; Eosinophils % (A) 0 %; HCT 44.2 % (39.0-53.0); HGB 15.2 gm/dL (13.0-17.5); Lymphocytes # (A) 0.7 k/uL (1.0-4.8); Lymphocytes % (A) 5 %; MCH 31.9 pg (25.0-35.0); MCHC 34.4 g/dL (31.0-37.0); MCV 92.8 fL (80.0-100.0); Mean Platelet Volume 9.5; Monocytes % (A) 7 %; Neutrophils # (A) 11.7 k/uL (1.3-7.7); Neutrophils % (A) 87 %; Platelet Count 333 k/uL (150-450); RBC 4.77 m/uL (4.30-5.90); RDW 14.2 % (11.5-15.5); WBC 13.5 k/uL (3.8-10.6)
[2023-08-07 19:24] LABS: ALT 26 U/L (4-49); AST 33 U/L (17-59); African American GFR (CKD) >90 (>60 ml/min/1.73 sqM); Albumin 4.9 g/dL (3.5-5.0); Alkaline Phosphatase 101 U/L (38-126); Amylase 97 U/L (30-110); Anion Gap 14 mmol/L; Blood Urea Nitrogen 21 mg/dL (9-20); Calcium 9.6 mg/dL (8.4-10.2); Carbon Dioxide 22 mmol/L (22-30); Chloride 105 mmol/L (98-107); Glucose 184 mg/dL (74-99); Lipase 33 U/L (23-300); Magnesium 1.9 mg/dL (1.6-2.3); Non-African American GFR(CKD) >90 (>60 ml/min/1.73 sqM); Potassium 3.9 mmol/L (3.5-5.1); Sodium 141 mmol/L (137-145); Total Bilirubin 0.9 mg/dL (0.2-1.3); Total Protein 7.7 g/dL (6.3-8.2)
[2023-08-07] MEDS: SODIUM CHLORIDE 0.9% 1,000 ML IV STA (21:50)
[2023-08-07] MEDS: ONDANSETRON 4 MG/2 ML VIAL IVP STA ×2 (21:52→22:56)
[2023-08-07] MEDS: METOCLOPRAMIDE 5 MG/ML 2 ML VIAL IVP STA (23:15)
[2023-08-08] MEDS: PROCHLORPERAZINE INJ 10 MG/2 ML VIAL IVP STA ×2 (01:02→15:52)
--- NOTE | 2023-08-08 01:11 | CT ---
EXAM: CT Abdomen and Pelvis Without Intravenous Contrast CLINICAL HISTORY: ITS.REASON CT Reason: Left sided abdominal pain TECHNIQUE: Axial computed tomography images of the abdomen and pelvis without intravenous contrast. CTDI is 7.6 mGy and DLP is 459.9 mGy-cm. This CT exam was performed using one or more of the following dose reduction techniques: automated exposure control, adjustment of the mA and/or kV according to patient size, and/or use of iterative reconstruction technique. COMPARISON: 03/14/2023 FINDINGS: ABDOMEN: Liver: Unremarkable. Gallbladder and bile ducts: Removed. Pancreas: No ductal dilation. Spleen: Unremarkable. Adrenals: Unremarkable. Kidneys and ureters: No obstructing stones. No hydronephrosis. Stomach and bowel: No bowel obstruction. No bowel wall thickening. Moderate hiatal hernia. Fluid-filled distal esophagus. Mildly impacted stool throughout the left colon PELVIS: Appendix: No evidence of appendicitis. Bladder: No stones. Left bladder diverticulum Reproductive: Mildly enlarged. ABDOMEN and PELVIS: Intraperitoneal space: Unremarkable. Bones/joints: No acute fractures. Soft tissues: Unremarkable. Vasculature: No abdominal aortic aneurysm. Lymph nodes: No enlarged lymph nodes. IMPRESSION: No acute findings. Moderate hiatal hernia with fluid refluxed esophagus. Mildly impacted stool throughout the left colon
[2023-08-08 01:15] LABS: Appearance,Urine Clear (Clear); Bilirubin,Urine Negative (Negative); Blood,Urine Negative (Negative); Color,Urine Yellow; Glucose,Urine (UA) Trace (Negative); Hyaline Casts,Urine 15 /lpf (0-2); Ketones,Urine 2+ (Negative); Leukocyte Esterase,Urine Negative (Negative); Mucus,Urine Many /hpf; Nitrite,Urine Negative (Negative); Protein,Urine 2+ (Negative); RBC,Urine 1 /hpf (0-5); Specific Gravity,Urine 1.031 (1.001-1.035); Urobilinogen,Urine <2.0 mg/dL (<2.0); WBC,Urine 2 /hpf (0-5)
[2023-08-08] MEDS: SODIUM CHLORIDE 0.9% 1,000 ML IV ONE (02:41)
[2023-08-08] MEDS ORDERED: NALOXONE 0.4 MG/ML 1 ML VIAL IV PRN (08:22)
[2023-08-08] MEDS ORDERED: ACETAMINOPHEN TAB 325 MG TAB PO PRN (08:22)
[2023-08-08] MEDS: SODIUM CHLORIDE 0.9% 1,000 ML IV SCH (10:18)
[2023-08-08] MEDS: PANTOPRAZOLE 40 MG/10 ML VIAL IV SCH (10:20)
[2023-08-08] MEDS: ONDANSETRON 4 MG/2 ML VIAL IVP PRN (10:21)
[2023-08-08] MEDS: MORPHINE SULFATE 4 MG/ML SYRINGE IVP STA (15:53)
[2023-08-08] MEDS: METOPROLOL TARTRATE 12.5 MG TAB PO SCH (17:26)
[2023-08-08] MEDS: lisinopriL 5 MG TAB PO SCH (17:27)
[2023-08-08] MEDS: hydrALAZINE HCL 20 MG/ML 1 ML VIAL IVP PRN (20:59)
--- NOTE | 2023-08-09 08:07 | P.HPIM ---
History of Present Illness This is a pleasant 67 years old male with past medical history of multiple medical problems including Asthma, Coronary Artery Disease (CAD), Chest Pain / Angina, CVA/TIA, GERD/Reflux, Hyperlipidemia, Hypertension, Pneumonia, Rheumat oid Arthritis , MIGRAINES, HEART MURMUR, hx HIATAL HERNIA, ,Anxiety, Depression He was in the hospital for similar complaint 03/14/2023-03/21/2023. He underwent laparoscopic cholecystectomy for cholecystitis. Since then he has some abdominal pain that has been going on on his left side of the abdomen. Patient denies any other new pain. But he started having recurrent nausea vomiting over the last 2 to 3 days with some blood in it, patient could not tell how much blood he was vomiting. He denies chest pain or dyspnea. No urinary complaint. No headache dizziness weakness or numbness. No smoking alcohol or illicit drugs. . He is hemodynamically stable and afebrile WBC is 13,000, rest of CBC, BMP, liver enzymes were unremarkable. increased lactic acid came back to normal . Showing 2+ protein and 2+ ketones, no evidence of infection Gastric occult blood is positive Influenza A and type B, RSV, SARS (coronavirus) are u ndetected EKG showing sinus tachycardia at [address]-T changes CT of the abdomen and pelvis showing no acute process but there is moderate hiatal hernia with reflux esophagitis. There is impacted stool in the left colon. Patient is started on normal saline at 130 mL/h patient was admitted with surgery team consult Review of Systems Review of systems CONSTITUTIONAL: No fever, no malaise, no fatigue. HEENT: No recent visual problems or hearing problems. Denied any sore throat. CARDIOVASCULAR: No orthopnea, PND, no palpitations, no syncope. PULMONARY: No shortness of breath, no cough, no hemoptysis. GASTROINTESTINAL: No diarrhea, no nausea, no vomiting, no abdominal pain. Normoactive bowel sounds. NEUROLOGICAL: No headaches, no weakness, no numbness. HEMATOLOGICAL: Denies any bleeding or petechiae. GENITOURINARY: Denies any burning micturition, frequency, or urgency. MUSCULOSKELETAL/RHEUMATOLOGICAL: Denies any joint pain, swelling, or any muscle pain. ENDOCRINE: Denies any polyuria or polydipsia. Past Medical History Past Medical History: Asthma, Coronary Artery Disease (CAD), Chest Pain / Angina, CVA/TIA, GERD/Reflux, Hyperlipidemia, Hypertension, Pneumonia, Rheumatoid Arthritis (RA) Additional Past Medical History / Comment(s): MIGRAINES, HEART MURMUR, hx HIATAL HERNIA, ANEMIA, one dr told him he had a stroke at one time-no effects, varicose veins, history of incarcerated per esophageal hernia, status post robotic-assisted paraesophageal hernia repair and Frederick fundoplication on 04/12/2022. History of Any Multi-Drug Resistant Organisms: None Reported Past Surgical History: Heart Catheterization, Hernia Repair, Orthopedic Surgery Additional Past Surgical History / Comment(s): Lt achilles tendon,RT SHOULDER surgery, RT ACHILLES TENDON reattached, HEMORRHOIDECTOMY, 13 FATTY TUMORS removed. left hand index finger surgery after injury, EGD WITH DILATION, paraesophageal hernia repair with Frederick fundoplication on 04/12/2022. Past Anesthesia/Blood Transfusion Reactions: No Reported Reaction Additional Past Anesthesia/Blood Transfusion Reaction / Comment(s): no hx blood transfusion Past Psychological History: Anxiety, Depression Smoking Status: Former smoker Past Alcohol Use History: None Reported Additional Past Alcohol Use History / Comment(s): QUIT SMOKING 1999, APPROX SMOKED 20 YRS, 1-2PPD. pt states hx alcoholism Past Drug Use History: Marijuana Additional Drug Use History / Comment(s): CURRENTLY USES MARIJUANA - Past Family History Mother Family Medical History: Cancer Father Additional Family Medical History / Comment(s): thinks aneurysm Medications and Allergies Home Medications Medication Instructions Recorded Confirmed Type Metoprolol Tartrate [Lopressor] 12.5 mg PO BID 08/20/18 08/08/23 History Omeprazole 20 mg PO AC-BID 08/06/20 08/08/23 History lisinopriL [Zestril] 5 mg PO DAILY #30 tab 11/06/22 08/08/23 Rx Nitroglycerin Sl Tabs [Nitrostat] 0.4 mg SUBLINGUAL Q5M PRN 08/08/23 08/08/23 History Sertraline [Zoloft] 25 mg PO DAILY 08/08/23 08/08/23 History busPIRone HCL [Buspar] 7.5 mg PO BID 08/08/23 08/08/23 History Allergies Allergy/AdvReac Type Severity Reaction Status Date / Time No Known Allergies Allergy Verified 08/08/23 09:14 Physical Exam Vitals: Vital Signs Temp Pulse Pulse Resp BP BP BP 08/09/23 02:00 98.1 F 94 16 164/82 08/08/23 20:00 98.0 F 105 H 18 163/87 08/08/23 16:31 98.3 F 96 17 170/80 08/08/23 16:03 102 H 20 140/100 08/08/23 15:57 110 H 20 160/100 08/08/23 13:00 98.4 F 102 H 20 184/103 08/08/23 10:00 98 18 171/96 08/08/23 09:00 92 18 154/93 08/08/23 08:00 102 H 18 181/102 Pulse Ox 08/09/23 02:00 95 08/08/23 20:00 96 08/08/23 16:31 96 08/08/23 16:03 96 08/08/23 15:57 98 08/08/23 13:00 98 08/08/23 10:00 96 08/08/23 09:00 97 08/08/23 08:00 96 Intake and Output 08/08/23 08/08/23 08/09/23 14:59 22:59 06:59 Intake Total 0 Output Total 200 100 Balance -200 -100 Intake: Oral 0 Output: Emesis 200 100 Other: # Voids 2 1 Weight 68.039 kg GENERAL: The patient is alert and oriented x3, not in any acute distress. Well developed, well nourished. HEENT: Pupils are round and equally reacting to light. EOMI. No scleral icterus. No conjunctival pallor. Normocephalic, atraumatic. No pharyngeal erythema. No thyromegaly. CARDIOVASCULAR: S1 and S2 present. No murmurs, rubs, or gallops. PULMONARY: Chest is clear to auscultation, no wheezing , no crackles. -ABDOMEN: Soft, epigastric and LUQ tenderness, no rebound tenderness, mild guarding, nondistended, normoactive bowel sounds. No palpable organomegaly. MUSCULOSKELETAL: No joint swelling or deformity. EXTREMITIES: No cyanosis, clubbing, or pedal edema. NEUROLOGICAL: Gross neurological examination did not reveal any focal deficits. SKIN: No rashes. no petechiae. Results CBC & Chem 7: 08/07/23 18:50 08/07/23 18:50 Thrombosis Risk Factor Assmnt - Choose All That Apply Each Risk Factor Represents 2 Points: Age 61-74 years Thrombosis Risk Factor Assessment Total Risk Factor Score: 2 Thrombosis Risk Factor Assessment Level: Low Risk Assessment and Plan Assessment: Intractable nausea vomiting with positive occult blood Moderate hiatal hernia with reflux esophagitis Elevated lactic acid and dehydration came back to normal. Epigastric pain and tenderness, left upper quadrant pain and tenderness History of paraesophageal hernia repair and hiatal hernia repair History of CVA/TIA Hypertension Hyperlipidemia Rheumatoid arthritis Coronary artery disease with prior history of cardiac catheterization. Anxiety/depression Prior history of smoking Marijuana use Plan: Continue with normal saline Continue with IV Protonix General surgery team consult Bowel rest pain management Labs and medication were reviewed.. Continue same treatment. Continue with symptomatic treatment. Resume home medication. Monitor labs and vitals. DVT and GI prophylaxis. Further recommendations as per clinical course of the patient DVT prophylaxis: no Subcutaneous heparin for possible GI bleed GI Prophylaxis: Ppi Prognosis is guarded
[2023-08-09] MEDS: SERTRALINE 25 MG TAB PO SCH (09:34)
[2023-08-09] MEDS: MORPHINE SULFATE 2 MG/ML SYRINGE IVP PRN (12:16)
--- NOTE | 2023-08-09 13:54 | P.GSCN ---
History of Present Illness Consult date: 08/09/23 History of present illness: CHIEF COMPLAINT: Abdominal pain HISTORY OF PRESENT ILLNESS: This is a 67-year-old male who presented to the hospital with complaints of left-sided abdominal pain x 2 months. Patient reports that the pain did worsen over the last 24 hours. He also has been having nausea and vomiting. The emesis has contained blood. Gastroccult positive. Hemoglobin 15.2. CT scan abdomen pelvis does report a moderate hiatal hernia with fluid reflux esophagus. Mildly impacted stool throughout the left colon. Patient reports having a bowel movement today. She prior surgical history does include a Niesen fundoplication in 2021. Last EGD was in March 2023 revealing gastritis, hiatal hernia and esophagitis. Patient also has a history of a cholecystectomy. Patient denies taking any blood thinners. Denies any NSAID use. Patient has been mildly tachycardic. PAST MEDICAL HISTORY: Asthma, Coronary Artery Disease (CAD), Chest Pain / Angina, CVA/TIA, GERD/Reflux, Hyperlipidemia, Hypertension, Pneumonia, Rheumatoid Arthritis (RA),MIGRAINES, HEART MURMUR, hx HIATAL HERNIA, ANEMIA, one dr told him he had a stroke at one time-no effects, varicose veins, history of incarcerated per esophageal hernia, status post robotic-assisted paraesophageal hernia repair and Frederick fundoplication on 04/12/2022. PAST SURGICAL HISTORY: Heart Catheterization, Hernia Repair, Orthopedic Surgery MEDICATIONS: See below ALLERGIES: See below SOCIAL HISTORY: No illicit drug use. REVIEW OF SYSTEMS: CONSTITUTIONAL: Denies fever or chills. HEENT: Denies blurred vision, vision changes, or eye pain. Denies hemoptysis CARDIOVASCULAR: Denies chest pain or pressure. RESPIRATORY: No shortness of breath. GASTROINTESTINAL: See HPI for pertinent findings HEMATOLOGIC: Denies bleeding disorders. GENITOURINARY: Denies any blood in urine or increased urinary frequency. SKIN: Denies pruitis. Denies rash. PHYSICAL EXAM: VITAL SIGNS: Reviewed GENERAL: Well-developed in no acute distress. HEENT: No sclera icterus. Extraocular movements grossly intact. Moist buccal mucosa. Head is atraumatic, normocephalic. No nasal drainage. ABDOMEN: Soft. Nondistended. Tenderness with palpation left side abdomen NEUROLOGIC: Alert and oriented. Cranial nerves II through XII grossly intact. LABORATORY DATA: WBC 13.5 Hgb 15.2 platelets 333 Sodium is 141 potassium is 3.9 creatinine 0.78 Lactic acid 3.3 down to 0.9 LFTs and lipase normal Gastric occult blood positive Influenza, RSV COVID-19 not detected IMAGING: CT scan abdomen pelvis reported no acute findings. Moderate hiatal hernia with fluid reflux esophagus. Mildly impacted stool throughout the left colon ASSESSMENT: 1. Hematemesis 2. Constipation. Left-sided abdominal pain. CT reporting mildly impacted stool throughout the left colon 3. Moderate hiatal hernia. History of Niesen and hiatal hernia repair 2021 PLAN: -Patient scheduled for EGD tomorrow with Dr. Pavon -Okay for clear liquid diet today -N.p.o. after midnight -Continue IV Protonix -Continue to monitor hemoglobin -Continue to monitor for any signs or symptoms of bleeding Physician Project Accountant note has been reviewed by physician. Signing provider agrees with the documented findings, assessment, and plan of care. Past Medical History Past Medical History: Asthma, Coronary Artery Disease (CAD), Chest Pain / Angina, CVA/TIA, GERD/Reflux, Hyperlipidemia, Hypertension, Pneumonia, Rheumatoid Arthritis (RA) Additional Past Medical History / Comment(s): MIGRAINES, HEART MURMUR, hx HIATAL HERNIA, ANEMIA, one dr told him he had a stroke at one time-no effects, varicose veins, history of incarcerated per esophageal hernia, status post robotic-assisted paraesophageal hernia repair and Frederick fundoplication on 04/12/2022. History of Any Multi-Drug Resistant Organisms: None Reported Past Surgical History: Heart Catheterization, Hernia Repair, Orthopedic Surgery Additional Past Surgical History / Comment(s): Lt achilles tendon,RT SHOULDER surgery, RT ACHILLES TENDON reattached, HEMORRHOIDECTOMY, 13 FATTY TUMORS removed. left hand index finger surgery after injury, EGD WITH DILATION, paraesophageal hernia repair with Frederick fundoplication on 04/12/2022. Past Anesthesia/Blood Transfusion Reactions: No Reported Reaction Additional Past Anesthesia/Blood Transfusion Reaction / Comm: no hx blood transfusion Past Psychological History: Anxiety, Depression Smoking Status: Former smoker Past Alcohol Use History: None Reported Additional Past Alcohol Use History / Comment(s): QUIT SMOKING 1999, APPROX SMOKED 20 YRS, 1-2PPD. pt states hx alcoholism Past Drug Use History: Marijuana Additional Drug Use History / Comment(s): CURRENTLY USES MARIJUANA - Past Family History Mother Family Medical History: Cancer Father Additional Family Medical History / Comment(s): thinks aneurysm Medications and Allergies Home Medications Medication Instructions Recorded Confirmed Type Metoprolol Tartrate [Lopressor] 12.5 mg PO BID 08/20/18 08/08/23 History Omeprazole 20 mg PO AC-BID 08/06/20 08/08/23 History lisinopriL [Zestril] 5 mg PO DAILY #30 tab 11/06/22 08/08/23 Rx Nitroglycerin Sl Tabs [Nitrostat] 0.4 mg SUBLINGUAL Q5M PRN 08/08/23 08/08/23 History Sertraline [Zoloft] 25 mg PO DAILY 08/08/23 08/08/23 History busPIRone HCL [Buspar] 7.5 mg PO BID 08/08/23 08/08/23 History Allergies Allergy/AdvReac Type Severity Reaction Status Date / Time No Known Allergies Allergy Verified 08/08/23 09:14 Surgical - Exam Vital Signs Temp Pulse Resp BP Pulse Ox 98.4 F 122 H 18 179/105 98 08/07/23 18:27 08/07/23 18:27 08/07/23 18:27 08/07/23 18:27 08/07/23 18:27 Results - Labs 08/07/23 18:50 08/07/23 18:50
[2023-08-09 15:05] VITALS: RESP 18
[2023-08-10 07:24] LABS: HGB 12.6 gm/dL (13.0-17.5); MCH 31.2 pg (25.0-35.0); MCHC 33.2 g/dL (31.0-37.0); MCV 93.9 fL (80.0-100.0); Mean Platelet Volume 9.5; Platelet Count 253 k/uL (150-450); RBC 4.05 m/uL (4.30-5.90); RDW 14.3 % (11.5-15.5); WBC 11.9 k/uL (3.8-10.6)
[2023-08-10 07:50] LABS: African American GFR (CKD) >90 (>60 ml/min/1.73 sqM); Anion Gap 7 mmol/L; Blood Urea Nitrogen 14 mg/dL (9-20); Calcium 8.7 mg/dL (8.4-10.2); Carbon Dioxide 28 mmol/L (22-30); Chloride 106 mmol/L (98-107); Glucose 105 mg/dL (74-99); Non-African American GFR(CKD) >90 (>60 ml/min/1.73 sqM); Potassium 3.2 mmol/L (3.5-5.1); Sodium 141 mmol/L (137-145)
--- NOTE | 2023-08-10 08:16 | P.PN ---
Subjective This is a pleasant 67 years old male with past medical history of multiple medical problems including Asthma, Coronary Artery Disease (CAD), Chest Pain / Angina, CVA/TIA, GERD/Reflux, Hyperlipidemia, Hypertension, Pneumonia, Rheumatoid Arthritis , MIGRAINES, HEART MURMUR, hx HIATAL HERNIA, ,Anxiety, Depression He was in the hospital for similar complaint 03/14/2023-03/21/2023. He underwent laparoscopic cholecystectomy for cholecystitis. Since then he has some abdominal pain that has been going on on his left side of the abdomen. Patient denies any other new pain. But he started having recurrent nausea vomiting over the last 2 to 3 days with some blood in it, patient could not tell how much blood he was vomiting. He denies chest pain or dyspnea. No urinary complaint. No headache dizziness weakness or numbness. No smoking alcohol or illicit drugs. . He is hemodynamically stable and afebrile WBC is 13,000, rest of CBC, BMP, liver enzymes were unremarkable. increased lactic acid came back to normal . Showing 2+ protein and 2+ ketones, no evidence of infection Gastric occult blood is positive Influenza A and type B, RSV, SARS (coronavirus) are u ndetected EKG showing sinus tachycardia at [address]-T changes CT of the abdomen and pelvis showing no acute process but there is moderate hiatal hernia with reflux esophagitis. There is impacted stool in the left colon. Patient is started on normal saline at 130 mL/h patient was admitted with surgery team consult 08/10/2023 Patient awake alert at baseline Still complaining from abdominal pain on the left side requiring pain medication he has minimal vomiting overnight. He had good bowel movement last night but he is complaining from constipation so he started feeling better No chest pain or dyspnea. WBC down to 11,000, hemoglobin down to 12. He remains on IV Protonix and normal saline 130 mL/h He is going for EGD today Medically there is no contraindication to proceed with the procedure as he is low risk. Review of systems CONSTITUTIONAL: No fever, no malaise, no fatigue. HEENT: No recent visual problems or hearing problems. Denied any sore throat. CARDIOVASCULAR: No orthopnea, PND, no palpitations, no syncope. PULMONARY: No shortness of breath, no cough, no hemoptysis. GENITOURINARY: Denies any burning micturition, frequency, or urgency. MUSCULOSKELETAL/RHEUMATOLOGICAL: Denies any joint pain, swelling, or any muscle pain. ENDOCRINE: Denies any polyuria or polydipsia. Active Medications Generic Name Dose Route Start Last Admin Trade Name Freq PRN Reason Stop Dose Admin Acetaminophen 650 mg 08/08/23 08:22 Acetaminophen Tab 325 Mg Tab PO Q6HR PRN Mild Pain or Fever > 100.5 Hydralazine HCl 10 mg 08/08/23 15:18 08/10/23 01:52 Hydralazine Hcl 20 Mg/Ml 1 Ml Vial IVP 10 mg Q4HR PRN Administration Blood Pressure - High Sodium Chloride 1,000 mls @ 130 mls/hr 08/08/23 08:30 08/09/23 17:07 Saline 0.9% IV 130 mls/hr .Q7H42M GIRISH Administration Lisinopril 5 mg 08/08/23 15:30 08/09/23 09:34 Lisinopril 5 Mg Tab PO Not Given DAILY GIRISH Metoprolol Tartrate 12.5 mg 08/08/23 15:18 08/09/23 21:00 Metoprolol Tartrate 12.5 Mg Tab PO 12.5 mg BID GIRISH Administration Morphine Sulfate 2 mg 08/09/23 10:47 08/10/23 07:01 Morphine Sulfate 2 Mg/Ml Syringe IVP 2 mg Q4HR PRN Administration Pain/Discomfort Naloxone HCl 0.2 mg 08/08/23 08:22 Naloxone 0.4 Mg/Ml 1 Ml Vial IV Q2M PRN Opioid Reversal Ondansetron HCl 4 mg 08/08/23 08:22 08/10/23 00:52 Ondansetron 4 Mg/2 Ml Vial IVP 4 mg Q8HR PRN Administration Nausea And Vomiting Pantoprazole Sodium 40 mg 08/08/23 09:00 08/09/23 09:55 Pantoprazole 40 Mg/10 Ml Vial IV 40 mg DAILY GIRISH Administration Sertraline HCl 25 mg 08/09/23 09:00 08/09/23 09:34 Sertraline 25 Mg Tab PO Not Given DAILY GIRISH Objective - Vital Signs Vital signs: Vital Signs Temp 98.1 F 08/10/23 02:00 Pulse 99 08/10/23 02:56 Resp 18 08/09/23 14:50 BP 164/80 08/10/23 02:56 Pulse Ox 97 08/10/23 02:56 FiO2 Intake & Output 08/09/23 08/10/23 08/10/23 18:59 06:59 18:59 Intake Total 790 Balance 790 Intake: Intake, IV Titration 790 Amount Sodium Chloride 0.9% 1, 790 000 ml @ 130 mls/hr IV . Q7H42M [facility] Rx#:[id number] Other: Voiding Method Toilet # Voids 1 2 - Exam GENERAL: The patient is alert and oriented x3, not in any acute distress. Well developed, well nourished. HEENT: Pupils are round and equally reacting to light. EOMI. No scleral icterus. No conjunctival pallor. Normocephalic, atraumatic. No pharyngeal erythema. No thyromegaly. CARDIOVASCULAR: S1 and S2 present. No murmurs, rubs, or gallops. PULMONARY: Chest is clear to auscultation, no wheezing , no crackles. -ABDOMEN: Soft, left-sided tenderness, nondistended, normoactive bowel sounds. No palpable organomegaly. MUSCULOSKELETAL: No joint swelling or deformity. EXTREMITIES: No cyanosis, clubbing, or pedal edema. NEUROLOGICAL: Gross neurological examination did not reveal any focal deficits. SKIN: No rashes. no petechiae. - Labs CBC & Chem 7: 08/10/23 06:58 08/10/23 06:58 Labs: Abnormal Lab Results - Last 24 Hours (Table) 08/10/23 08/10/23 Range/Units 06:58 06:58 WBC 11.9 H (3.8-10.6) k/uL RBC 4.05 L (4.30-5.90) m/uL Hgb 12.6 L (13.0-17.5) gm/dL Hct 38.0 L (39.0-53.0) % Potassium 3.2 L (3.5-5.1) mmol/L Creatinine 0.61 L (0.66-1.25) mg/dL Glucose 105 H (74-99) mg/dL Assessment and Plan Assessment: Intractable nausea vomiting with positive occult blood. Rule out gastritis Moderate hiatal hernia with reflux esophagitis Elevated lactic acid and dehydration came back to normal. Epigastric pain and tenderness, left upper quadrant pain and tenderness. Mostly secondary to above History of paraesophageal hernia repair and hiatal hernia repair History of CVA/TIA Hypertension Hyperlipidemia Rheumatoid arthritis Coronary artery disease with prior history of cardiac catheterization. Anxiety/depression Prior history of smoking Marijuana use Plan: Continue with normal saline Continue with IV Protonix General surgery team consult. Plan for EGD Bowel rest pain management Labs and medication were reviewed.. Continue same treatment. Continue with symptomatic treatment. Resume home medication. Monitor labs and vitals. DVT and GI prophylaxis. Further recommendations as per clinical course of the patient DVT prophylaxis: no Subcutaneous heparin for possible GI bleed GI Prophylaxis: Ppi Prognosis is guarded
[2023-08-10 09:04] VITALS: PULSE 78
[2023-08-10] MEDS: IV FLUID CONTINUATION 1,000 ML IV ONE (11:45)
[2023-08-10] MEDS ORDERED: PROPOFOL 10 MG/ML 20 ML VIAL IV ONE (11:48)
[2023-08-10] MEDS ORDERED: LIDOCAINE 1% INJ 10MG/ML (20 ML MDV) ONE (11:48)
--- NOTE | 2023-08-10 12:17 | P.OP ---
Date of Procedure: 08/10/23 Preoperative Diagnosis: Nausea, vomiting Postoperative Diagnosis: Moderate size hiatal hernia Esophagitis Procedure(s) Performed: EGD Anesthesia: MAC Surgeon: Rickie Pavon Pathology: other (Esophagus) Condition: stable Disposition: PACU Description of Procedure: The patient's placed on the endoscopy table in the lateral position. He received IV sedation. The gastro-/oropharynx passed in the esophagus and stomach. Scope some placed through the pylorus. The first and second portion of the duodenum appeared normal. Scope was then brought back the antrum this. Mildly inflamed. The scope was then retroflexed and the remainder the stomach appeared normal. Patient had a moderate size hiatal hernia. The GE junction was at 37 cm. The distal esophagus. Inflamed. The proximal esophagus appeared normal. Scope withdrawn for patient.
--- NOTE | 2023-08-10 12:18 | P.PN ---
Subjective Progress Note Date: 08/10/23 CHIEF COMPLAINT: Abdominal pain HISTORY OF PRESENT ILLNESS: Per nursing staff no further hematemesis. Patient resting comfortably. No complaints of abdominal pain at this time. Afebrile. Vital stable. Hemoglobin down from 15.2-12.6 potassium is 3.2 PHYSICAL EXAM: VITAL SIGNS: Reviewed. GENERAL: Well-developed in no acute distress. ABDOMEN: Soft. Nondistended. Nontender. NEUROLOGIC: Alert and oriented. Cranial nerves II through XII grossly intact. ASSESSMENT: 1. Hematemesis 2. Constipation. Left-sided abdominal pain. CT reporting mildly impacted stool throughout the left colon 3. Moderate hiatal hernia. History of Niesen and hiatal hernia repair 2021 4. Hypokalemia PLAN: -Patient scheduled for EGD today with Dr. Pavon -Replace potassium Physician Chief Librarian Music Department note has been reviewed by physician. Signing provider agrees with the documented findings, assessment, and plan of care. Objective - Vital Signs Vital signs: Vital Signs Temp 97.8 F 08/10/23 07:00 Pulse 78 08/10/23 07:00 Resp 18 08/09/23 14:50 BP 130/67 08/10/23 07:00 Pulse Ox 97 08/10/23 02:56 FiO2 Intake & Output 08/09/23 08/10/23 08/10/23 18:59 06:59 18:59 Intake Total 790 600 Balance 790 600 Intake: IV 600 Intake, IV Titration 790 Amount Sodium Chloride 0.9% 1, 790 000 ml @ 130 mls/hr IV . Q7H42M [facility] Rx#:[id number] Other: Voiding Method Toilet Toilet # Voids 1 2 - Labs CBC & Chem 7: 08/10/23 06:58 08/10/23 06:58 Labs: Abnormal Lab Results - Last 24 Hours (Table) 08/10/23 08/10/23 Range/Units 06:58 06:58 WBC 11.9 H (3.8-10.6) k/uL RBC 4.05 L (4.30-5.90) m/uL Hgb 12.6 L (13.0-17.5) gm/dL Hct 38.0 L (39.0-53.0) % Potassium 3.2 L (3.5-5.1) mmol/L Creatinine 0.61 L (0.66-1.25) mg/dL Glucose 105 H (74-99) mg/dL
[2023-08-10 12:53] VITALS: BP 159/94; TEMP 97.9
[2023-08-10] MEDS: POTASSIUM CHLORIDE ER 20 MEQ TAB.ER PO STA (12:59)
--- NOTE | 2023-08-15 14:11 | CDI ---
Documentation Clarification Form Date: 08/15/23 From: Dirk Aceves, ENRIQUE, RN Phone: [phone] Admit Date: 08/08/2023 08:25:00 AM Patient Name: Finn Alex Visit Number: [id number] Discharge Date: 08/10/2023 02:49:00 PM ATTENTION: The Clinical Documentation Specialists (CDI) and [facility] Coding Staff appreciate your assistance in clarifying documentation. Please respond to the clarification below the line at the bottom and electronically sign. The CDI & [facility] Coding staff will review the response and follow-up if needed. Please note: Queries are made part of the Legal Health Record. If you have any questions, please contact the author of this message via ITS. Dr. Phillips Increased lactic acid came back to normal was documented in the progress note on 08/09. Please clarify if there is an additional diagnosis and/or clinical significance related to this value. History/Risk Factors: 67 yo male presented to the ED with c/o abdominal pain. PMH CAD, HTN, RA (ED note 08/06). Clinical indicators: Admitting Diagnosis Lactic acidosis, intractable nausea and vomiting ([employer] Admit to Routine order dated 08/07) Lactic acid 2.7, 3.3, 0.9 per [employer] Lab findings ED note EKG data tachycardia heart rate 109 EKG showing sinus tachycardia per H&P 08/08 and PN 08/09 WBC 13.5 on 08/06, 11.9 on 08/09 VS on arrival T 98.4, P 122 R 18 BP 179/105 Treatment: Serial lab monitoring including lactic acid, CBC, chemistry panel NS 1L bolus on 08/06 and repeated 08/07. NS changed to 130 ml/hr on 08/07 at 0830 Monitor labs and vital signs Progress note 08/09 Is there an additional diagnosis and/or clinical significance related to the above lab result/information? [ x] Lactic acidosis, no evidence of SIRS [ ] SIRS causing lactic acidosis [ ] SIRS without acute organ dysfunction [ ] No additional diagnosis/Not clinically significant [ ] Other, please specify [ ] Unable to determine MTDD
== END 2023-08-10 14:49 | disposition home or self-care (01) | DRG 369 ==
LOC: EC 18:08 → 6NMEDSUR 08-08 08:24 → OBSVTOIN 08-08 08:25 → 1SOBS 08-08 14:25
PROVIDERS: ADMIT Hospitalist; ATTEND Hospitalist
PROC: 0DB58ZX Excision of Esophagus, Via Natural or Artificial Opening Endoscopic, Diagnostic (ICD-10-PCS; principal; 2023-08-10 10:45)
DX: K21.01 Gastro-esophageal reflux disease with esophagitis, with bleeding (principal); E87.20 Acidosis, unspecified; E78.5 Hyperlipidemia, unspecified; M06.9 Rheumatoid arthritis, unspecified; F32.A Depression, unspecified; I10 Essential (primary) hypertension; J45.909 Unspecified asthma, uncomplicated; F10.21 Alcohol dependence, in remission; K56.41 Fecal impaction; Z11.52 Encounter for screening for COVID-19; K44.9 Diaphragmatic hernia without obstruction or gangrene; E86.0 Dehydration; E87.6 Hypokalemia; F41.9 Anxiety disorder, unspecified; I25.10 Atherosclerotic heart disease of native coronary artery without angina pectoris; I83.90 Asymptomatic varicose veins of unspecified lower extremity; M19.90 Unspecified osteoarthritis, unspecified site; Z79.899 Other long term (current) drug therapy; Z87.891 Personal history of nicotine dependence; Z86.73 Personal history of transient ischemic attack (TIA), and cerebral infarction without residual deficits
CPT/HCPCS: 36415; 43239; 74176; 80048; 80053; 81001; 82150; 82271; 83605; 83690; 83735; 85025; 85027; 87636; 88305; 93005; 96361; 96374; 96375; 96376; 99285

== ENCOUNTER 2023-08-28 17:25 | Inpatient (IN) | payer MEDICARE, OTHER ==
[2023-08-28 17:39] LABS: Glucose,Whole Blood 53 mg/dL (70-110)
[2023-08-28] MEDS: SODIUM CHLORIDE 0.9% 1,000 ML IV STA (17:40)
[2023-08-28 17:41] LABS: Glucose,Whole Blood 177 mg/dL (70-110)
[2023-08-28 18:08] LABS: Basophils % (A) 0 %; Eosinophils % (A) 0 %; HCT 47.1 % (39.0-53.0); HGB 15.4 gm/dL (13.0-17.5); Lymphocytes # (A) 1.7 k/uL (1.0-4.8); Lymphocytes % (A) 10 %; MCH 31.6 pg (25.0-35.0); MCHC 32.7 g/dL (31.0-37.0); MCV 96.8 fL (80.0-100.0); Mean Platelet Volume 9.3; Monocytes # (A) 0.5 k/uL (0-1.0); Monocytes % (A) 3 %; Neutrophils # (A) 14.4 k/uL (1.3-7.7); Neutrophils % (A) 86 %; Platelet Count 341 k/uL (150-450); RBC 4.86 m/uL (4.30-5.90); RDW 13.8 % (11.5-15.5); WBC 16.8 k/uL (3.8-10.6)
[2023-08-28 18:08] LABS: VBG PH 7.42 (7.31-7.41)
[2023-08-28 18:16] LABS: Potassium 3.7 mmol/L (3.5-5.1)
[2023-08-28 18:17] LABS: AST 189 U/L (17-59); African American GFR (CKD) 40 (>60 ml/min/1.73 sqM); Albumin 3.3 g/dL (3.5-5.0); Alkaline Phosphatase 80 U/L (38-126); Anion Gap 15 mmol/L; Blood Urea Nitrogen 64 mg/dL (9-20); Calcium 8.1 mg/dL (8.4-10.2); Carbon Dioxide 24 mmol/L (22-30); Chloride 112 mmol/L (98-107); Glucose 192 mg/dL (74-99); Magnesium 2.8 mg/dL (1.6-2.3); Non-African American GFR(CKD) 35 (>60 ml/min/1.73 sqM); Sodium 151 mmol/L (137-145); Total Bilirubin 0.9 mg/dL (0.2-1.3); Total Protein 5.5 g/dL (6.3-8.2)
[2023-08-28 18:25] LABS: INR 1.2 (<1.2); Prothrombin Time 12.8 sec (10.0-12.5)
[2023-08-28 18:27] LABS: ALT 190 U/L (4-49)
--- NOTE | 2023-08-28 18:30 | CT ---
EXAMINATION TYPE: CT brain pj dunn DATE OF EXAM: 08/28/2023 COMPARISON: HISTORY: ams, fall CT DLP: 1351.5 mGycm Automated exposure control for dose reduction was used. TECHNIQUE: CT scan of the head and cervical spine are performed without contrast. Findings: Head CT: Ventricles, basal cisterns and sulci over convexities within normal limits and there is no mass, mass effect or shift of midline structures. No abnormal density is seen throughout the brain parenchyma and there is no acute intra or extra-axia l hemorrhage. Posterior fossa including the brainstem, fourth ventricle and cerebellar pontine angles are grossly n ormal. The intraorbital contents appear normal and symmetric. Visualized paranasal sinuses are well aerated. CT cervical spine: Craniovertebral junction relationships and prevertebral soft tissues are normal. The cervical vertebral segments are normal in height and alignment and there is no fracture subluxati on. There is mild disc space narrowing and spondylosis indicative of mild degenerative disc disease at th e C3-C4, C4-5, C5-6 and C6-7 levels. The facet joints are intact there is mild degeneration of the uncovertebral joints at the C3-4, C4-5, C6-7 levels. There is no significant bony encroachment of the cervical spinal canal. There is mild b frnacisco neural foraminal encroachment at the C6-7 level bilaterally. The bony cervical canal is widely patent and there is no bony encroachment of the neural foramina. The paraspinal soft tissues unremarkable. IMPRESSION: 1. Head CT: No acute bleed or mass effect. 2. CT cervical spine: No acute trauma. Mild degenerative changes.
[2023-08-28 18:32] LABS: Partial Thromboplastin Time 21.6 sec (22.0-30.0)
--- NOTE | 2023-08-28 19:36 | XR ---
EXAMINATION TYPE: XR chest 1V portable DATE OF EXAM: 08/28/2023 COMPARISON: 04/14/2022 HISTORY: Syncope TECHNIQUE: Single frontal view of the chest is obtained. FINDINGS: There is no focal air space opacity, pleural effusion, or pneumothorax seen. The cardiac silhouette size is within normal limits. The osseous structures are intact. IMPRESSION: No acute process.
--- NOTE | 2023-08-28 19:40 | ED ---
General Adult HPI - General Chief complaint: Fall Stated complaint: Syncope Time Seen by Provider: 08/28/23 17:26 Source: patient, EMS, RN notes reviewed, old records reviewed Mode of arrival: EMS Limitations: no limitations - History of Present Illness Initial comments: 67-year-old male presenting with altered level consciousness, possible syncopal episode. Paramedics have been called after the patient had become unresponsive while going to the bathroom. He has a history of chronic nausea and vomiting which his states has been present for the past 20 years. He has had several recent admissions with intractable nausea and vomiting. Patient was initially minimally responsive but did regain consciousness momentarily after arriving to the emergency department. He was slow to respond but able to answer questions. He was moving all extremities symmetrically. He denied pain complaints. Initial blood pressure was low. After IV hydration further history obtained. The patient has had persistent nausea and vomiting without significant abdominal pain. No chest pain. No fever. - Related Data Home Medications Medication Instructions Recorded Confirmed Metoprolol Tartrate [Lopressor] 12.5 mg PO BID 08/20/18 08/28/23 Nitroglycerin Sl Tabs [Nitrostat] 0.4 mg SUBLINGUAL Q5M PRN 08/08/23 08/28/23 Sertraline [Zoloft] 25 mg PO DAILY 08/08/23 08/28/23 busPIRone HCL [Buspar] 7.5 mg PO BID 08/08/23 08/28/23 Previous Rx's Medication Instructions Recorded lisinopriL [Zestril] 5 mg PO DAILY #30 tab 11/06/22 Allergies Allergy/AdvReac Type Severity Reaction Status Date / Time No Known Allergies Allergy Verified 08/08/23 09:14 Review of Systems ROS Statement: Those systems with pertinent positive or pertinent negative responses have been documented in the HPI. ROS Other: All systems not noted in ROS Statement are negative. Past Medical History Past Medical History: Asthma, Coronary Artery Disease (CAD), Chest Pain / Angina, CVA/TIA, GERD/Reflux, Hyperlipidemia, Hypertension, Pneumonia, Rheumatoid Arthritis (RA) Additional Past Medical History / Comment(s): MIGRAINES, HEART MURMUR, hx HIATAL HERNIA, ANEMIA, one dr told him he had a stroke at one time-no effects, varicose veins, history of incarcerated per esophageal hernia, status post robotic-assisted paraesophageal hernia repair and Frederick fundoplication on 04/12/2022. History of Any Multi-Drug Resistant Organisms: None Reported Past Surgical History: Heart Catheterization, Hernia Repair, Orthopedic Surgery Additional Past Surgical History / Comment(s): Lt achilles tendon,RT SHOULDER surgery, RT ACHILLES TENDON reattached, HEMORRHOIDECTOMY, 13 FATTY TUMORS removed. left hand index finger surgery after injury, EGD WITH DILATION, paraesophageal hernia repair with Frederick fundoplication on 04/12/2022. Past Anesthesia/Blood Transfusion Reactions: No Reported Reaction Additional Past Anesthesia/Blood Transfusion Reaction / Comment(s): no hx blood transfusion Past Psychological History: Anxiety, Depression Smoking Status: Former smoker Past Alcohol Use History: None Reported Past Drug Use History: Marijuana - Past Family History Mother Family Medical History: Cancer Father Additional Family Medical History / Comment(s): thinks aneurysm General Exam Limitations: no limitations General appearance: lethargic, in distress Head exam: Present: atraumatic, normocephalic Eye exam: Present: normal appearance, PERRL ENT exam: Present: mucous membranes dry Neck exam: Present: normal inspection. Absent: tenderness, meningismus Respiratory exam: Present: normal lung sounds bilaterally. Absent: respiratory distress, wheezes Cardiovascular Exam: Present: regular rate, normal rhythm GI/Abdominal exam: Present: soft. Absent: distended, tenderness, guarding, rebound Extremities exam: Present: normal inspection, normal capillary refill Neurological exam: Present: alert. Absent: motor sensory deficit Skin exam: Present: warm, dry, intact. Absent: cyanosis, diaphoretic Course Vital Signs 08/28/23 08/28/23 08/28/23 17:27 17:37 17:41 Temperature 97.4 F L Pulse Rate 96 95 Respiratory 16 13 Rate Blood Pressure 75/45 56/45 110/96 O2 Sat by Pulse 96 95 Oximetry 08/28/23 19:35 Temperature Pulse Rate 68 Respiratory 14 Rate Blood Pressure 109/95 O2 Sat by Pulse 97 Oximetry Procedures - [place] Protocol (Time Out) Nurse: Raissa Luque Medical Decision Making - Medical Decision Making Was pt. sent in by a medical professional or institution (, PA, REMOTE SENSING TECHNOLOGIST, urgent care, hospital, or shelter...) When possible be specific @ -[No] Did you speak to anyone other than the patient for history (EMS, parent, family, police, friend...)? What history was obtained from this source @ -Paramedics and patient's Did you review nursing and triage notes (agree or disagree)? Why? @ -[I reviewed and agree with nursing and triage notes] Were old charts reviewed (outside hosp., previous admission, EMS record, old EKG, old radiological studies, urgent care reports/EKG's, shelter records)? Report findings @ -[No old charts were reviewed] Differential Diagnosis (chest pain, altered mental status, abdominal pain women, abdominal pain men, vaginal bleeding, weakness, fever, dyspnea, syncope, headache, dizziness, GI bleed, back pain, seizure, CVA, palpatations, mental health, musculoskeletal)? @ -[not applicable] EKG interpreted by me (3pts min.). @ -Sinus rhythm rate of 95, IL interval 106, QRS duration 102, QTc 433, diffuse ST segment depression and T wave inversion, prior EKG showing ST segment depression more significant on today's EKG. X-rays interpreted by me (1pt min.). @ -[Chest x-ray negative for acute cardiopulmonary findings CT interpreted by me (1pt min.). @ -[CT brain negative for intracranial hemorrhage or mass effect, CT cervical spine negative for fracture or subluxation U/S interpreted by me (1pt. min.). @ -[None done] What testing was considered but not performed or refused? (CT, X-rays, U/S, labs)? Why? @ -[None] What meds were considered but not given or refused? Why? @ -[None] Did you discuss the management of the patient with other professionals (professionals i.e. , PA, REMOTE SENSING TECHNOLOGIST, lab, RT, psych nurse, social media senior associate, nascar driver, teacher, rating officer, manager rn case)? Give summary @ -EM Was smoking cessation discussed for >3mins.? @ -[No] Was critical care preformed (if so, how long)? @ -yes 35 min Were there social determinants of health that impacted care today? How? (Homelessness, low income, unemployed, alcoholism, drug addiction, transportation, low edu. Level, literacy, decrease access to med. care, fpc, rehab)? @ -[No] Was there de-escalation of care discussed even if they declined (Discuss DNR or withdrawal of care, Hospice)? DNR status @ -[No] What co-morbidities impacted this encounter? (DM, HTN, Smoking, COPD, CAD, Cancer, CVA, ARF, Chemo, Hep., AIDS, mental health diagnosis, sleep apnea, morbid obesity)? @ -Chronic nausea vomiting Was patient admitted / discharged? Hospital course, mention meds given and route, prescriptions, significant lab abnormalities, going to OR and other p ertinent info. @ -[67-year-old male presenting with altered mental status, likely syncopal episode secondary to volume loss from persistent nausea and vomiting. Patient is responsive but lethargic upon arrival, hypotensive and appears profoundly dehydrated. Given 2 L of normal saline. He has normalized blood pressure and heart rate with hydration. Initial laboratory testing reveals a white blood cell count 16.8, hemoglobin 15.4. He has a sodium of 151, initial lactic of 8.1 which is down trended to 2.5 after 2 L. His troponin is elevated at 0.148 but this is downtrending and in the setting of renal failure. BUN and creatinine are elevated. He has no active chest pain. He had recent upper GI bleed, at this time given no chest pain and downtrending troponin I will hold anticoagulat ion. Patient will be admitted for acute renal failure, lactic acidosis likely both secondary to dehydration. Repeat laboratory testing will be obtained in the morning. I did discuss case with [facility] hospitalist who will accept admission. Undiagnosed new problem with uncertain prognosis? @ -[No] Drug Therapy requiring intensive monitoring for toxicity (Heparin, Nitro, Insulin, Cardizem)? @ -[No] Were any procedures done? @ -[No] Diagnosis/symptom? @ -Acute renal failure, lactic acidosis, dehydration, troponin elevation Acute, or Chronic, or Acute on Chronic? @ -[Acute Uncomplicated (without systemic symptoms) or Complicated (systemic symptoms)? @ -[default] Side effects of treatment? @ -[No] Exacerbation, Progression, or Severe Exacerbation? @ -[No] Poses a threat to life or bodily function? How? (Chest pain, USA, ME, pneumonia, PE, COPD, DKA, ARF, appy, cholecystitis, CVA, Diverticulitis, Homicidal, Suicidal, threat to staff... and all critical care pts) @ -[Yes, hypovolemic shock, renal failure, ACS - Lab Data Result diagrams: 08/28/23 17:50 08/28/23 17:49 Lab Results 08/28/23 08/28/23 08/28/23 Range/Units 17:38 17:39 17:49 WBC (3.8-10.6) k/uL RBC (4.30-5.90) m/uL Hgb (13.0-17.5) gm/dL Hct (39.0-53.0) % MCV (80.0-100.0) fL MCH (25.0-35.0) pg MCHC (31.0-37.0) g/dL RDW (11.5-15.5) % Plt Count (150-450) k/uL MPV Neutrophils % % Lymphocytes % % Monocytes % % Eosinophils % % Basophils % % Neutrophils # (1.3-7.7) k/uL Lymphocytes # (1.0-4.8) k/uL Monocytes # (0-1.0) k/uL Eosinophils # (0-0.7) k/uL Basophils # (0-0.2) k/uL PT (10.0-12.5) sec INR (<1.2) APTT (22.0-30.0) sec VBG pH (7.31-7.41) VBG pCO2 (37-51) mmHg VBG HCO3 (24-28) mmol/L Sodium 151 H (137-145) mmol/L Potassium 3.7 (3.5-5.1) mmol/L Chloride 112 H (98-107) mmol/L Carbon Dioxide 24 (22-30) mmol/L Anion Gap 15 mmol/L BUN 64 H (9-20) mg/dL Creatinine 1.96 H (0.66-1.25) mg/dL Est GFR (CKD-EPI)AfAm 40 (>60 ml/min/1.73 sqM) Est GFR (CKD-EPI)NonAf 35 (>60 ml/min/1.73 sqM) Glucose 192 H (74-99) mg/dL POC Glucose (mg/dL) 53 L 177 H (70-110) mg/dL POC Glu Supervisor Pipe Finishing , September Billy, September Lactic Ac Sepsis Rflx Plasma Lactic Acid Jack (0.7-2.0) mmol/L Calcium 8.1 L (8.4-10.2) mg/dL Magnesium 2.8 H (1.6-2.3) mg/dL Total Bilirubin 0.9 (0.2-1.3) mg/dL AST 189 H (17-59) U/L ALT 190 H (4-49) U/L Alkaline Phosphatase 80 (38-126) U/L Troponin I (0.000-0.034) ng/mL Total Protein 5.5 L (6.3-8.2) g/dL Albumin 3.3 L (3.5-5.0) g/dL 08/28/23 08/28/23 08/28/23 Range/Units 17:49 17:49 17:50 WBC 16.8 H (3.8-10.6) k/uL RBC 4.86 (4.30-5.90) m/uL Hgb 15.4 (13.0-17.5) gm/dL Hct 47.1 (39.0-53.0) % MCV 96.8 (80.0-100.0) fL MCH 31.6 (25.0-35.0) pg MCHC 32.7 (31.0-37.0) g/dL RDW 13.8 (11.5-15.5) % Plt Count 341 (150-450) k/uL MPV 9.3 Neutrophils % 86 % Lymphocytes % 10 % Monocytes % 3 % Eosinophils % 0 % Basophils % 0 % Neutrophils # 14.4 H (1.3-7.7) k/uL Lymphocytes # 1.7 (1.0-4.8) k/uL Monocytes # 0.5 (0-1.0) k/uL Eosinophils # 0.0 (0-0.7) k/uL Basophils # 0.0 (0-0.2) k/uL PT (10.0-12.5) sec INR (<1.2) APTT (22.0-30.0) sec VBG pH 7.42 H (7.31-7.41) VBG pCO2 37 (37-51) mmHg VBG HCO3 25 (24-28) mmol/L Sodium (137-145) mmol/L Potassium (3.5-5.1) mmol/L Chloride (98-107) mmol/L Carbon Dioxide (22-30) mmol/L Anion Gap mmol/L BUN (9-20) mg/dL Creatinine (0.66-1.25) mg/dL Est GFR (CKD-EPI)AfAm (>60 ml/min/1.73 sqM) Est GFR (CKD-EPI)NonAf (>60 ml/min/1.73 sqM) Glucose (74-99) mg/dL POC Glucose (mg/dL) (70-110) mg/dL POC Glu Supervisor Pipe Finishing ID Lactic Ac Sepsis Rflx Plasma Lactic Acid Jack (0.7-2.0) mmol/L Calcium (8.4-10.2) mg/dL Magnesium (1.6-2.3) mg/dL Total Bilirubin (0.2-1.3) mg/dL AST (17-59) U/L ALT (4-49) U/L Alkaline Phosphatase (38-126) U/L Troponin I 0.148 H* (0.000-0.034) ng/mL Total Protein (6.3-8.2) g/dL Albumin (3.5-5.0) g/dL 08/28/23 08/28/23 08/28/23 Range/Units 17:50 17:50 18:29 WBC (3.8-10.6) k/uL RBC (4.30-5.90) m/uL Hgb (13.0-17.5) gm/dL Hct (39.0-53.0) % MCV (80.0-100.0) fL MCH (25.0-35.0) pg MCHC (31.0-37.0) g/dL RDW (11.5-15.5) % Plt Count (150-450) k/uL MPV Neutrophils % % Lymphocytes % % Monocytes % % Eosinophils % % Basophils % % Neutrophils # (1.3-7.7) k/uL Lymphocytes # (1.0-4.8) k/uL Monocytes # (0-1.0) k/uL Eosinophils # (0-0.7) k/uL Basophils # (0-0.2) k/uL PT 12.8 H (10.0-12.5) sec INR 1.2 H (<1.2) APTT 21.6 L (22.0-30.0) sec VBG pH (7.31-7.41) VBG pCO2 (37-51) mmHg VBG HCO3 (24-28) mmol/L Sodium (137-145) mmol/L Potassium (3.5-5.1) mmol/L Chloride (98-107) mmol/L Carbon Dioxide (22-30) mmol/L Anion Gap mmol/L BUN (9-20) mg/dL Creatinine (0.66-1.25) mg/dL Est GFR (CKD-EPI)AfAm (>60 ml/min/1.73 sqM) Est GFR (CKD-EPI)NonAf (>60 ml/min/1.73 sqM) Glucose (74-99) mg/dL POC Glucose (mg/dL) (70-110) mg/dL POC Glu Supervisor Pipe Finishing ID Lactic Ac Sepsis Rflx Y Plasma Lactic Acid Jack 8.1 H* (0.7-2.0) mmol/L Calcium (8.4-10.2) mg/dL Magnesium (1.6-2.3) mg/dL Total Bilirubin (0.2-1.3) mg/dL AST (17-59) U/L ALT (4-49) U/L Alkaline Phosphatase (38-126) U/L Troponin I (0.000-0.034) ng/mL Total Protein (6.3-8.2) g/dL Albumin (3.5-5.0) g/dL 08/28/23 08/28/23 Range/Units 19:43 19:43 WBC (3.8-10.6) k/uL RBC (4.30-5.90) m/uL Hgb (13.0-17.5) gm/dL Hct (39.0-53.0) % MCV (80.0-100.0) fL MCH (25.0-35.0) pg MCHC (31.0-37.0) g/dL RDW (11.5-15.5) % Plt Count (150-450) k/uL MPV Neutrophils % % Lymphocytes % % Monocytes % % Eosinophils % % Basophils % % Neutrophils # (1.3-7.7) k/uL Lymphocytes # (1.0-4.8) k/uL Monocytes # (0-1.0) k/uL Eosinophils # (0-0.7) k/uL Basophils # (0-0.2) k/uL PT (10.0-12.5) sec INR (<1.2) APTT (22.0-30.0) sec VBG pH (7.31-7.41) VBG pCO2 (37-51) mmHg VBG HCO3 (24-28) mmol/L Sodium (137-145) mmol/L Potassium (3.5-5.1) mmol/L Chloride (98-107) mmol/L Carbon Dioxide (22-30) mmol/L Anion Gap mmol/L BUN (9-20) mg/dL Creatinine (0.66-1.25) mg/dL Est GFR (CKD-EPI)AfAm (>60 ml/min/1.73 sqM) Est GFR (CKD-EPI)NonAf (>60 ml/min/1.73 sqM) Glucose (74-99) mg/dL POC Glucose (mg/dL) (70-110) mg/dL POC Glu Supervisor Pipe Finishing ID Lactic Ac Sepsis Rflx Plasma Lactic Acid Jack 2.5 H* (0.7-2.0) mmol/L Calcium (8.4-10.2) mg/dL Magnesium (1.6-2.3) mg/dL Total Bilirubin (0.2-1.3) mg/dL AST (17-59) U/L ALT (4-49) U/L Alkaline Phosphatase (38-126) U/L Troponin I 0.133 H* (0.000-0.034) ng/mL Total Protein (6.3-8.2) g/dL Albumin (3.5-5.0) g/dL Critical Care Time Critical Care Time: Yes Total Critical Care Time: 35 Disposition Clinical Impression: Nausea & vomiting, Dehydration, Elevated lactic acid level, Intractable nausea and vomiting, GERONIMO (acute kidney injury) Disposition: ADMITTED IP TO THIS [facility] Condition: Stable Is patient prescribed a controlled substance at d/c from ED?: No Referrals: Misael Hopkins MD [Primary Care Provider] - 1-2 days Time of Disposition: 21:04
[2023-08-28] MEDS: SODIUM CHLORIDE 0.9% 1,000 ML IV SCH (20:44)
[2023-08-28] MEDS: ASPIRIN 325 MG TAB PO STA (20:44)
[2023-08-28] MEDS ORDERED: NALOXONE 0.4 MG/ML 1 ML VIAL IV PRN (20:58)
[2023-08-29] MEDS: ONDANSETRON 4 MG/2 ML VIAL IVP PRN (02:02)
[2023-08-29 02:04] LABS: Amorphous Sediment,Urine Rare /hpf; Appearance,Urine Cloudy (Clear); Bacteria,Urine Occasional /hpf; Bilirubin,Urine Negative (Negative); Blood,Urine Small (Negative); Color,Urine Yellow; Glucose,Urine (UA) Negative (Negative); Hyaline Casts,Urine 34 /lpf (0-2); Ketones,Urine Negative (Negative); Leukocyte Esterase,Urine Negative (Negative); Mucus,Urine Occasional /hpf; Nitrite,Urine Negative (Negative); PH, Urine 5.5 (5.0-8.0); Protein,Urine Trace (Negative); RBC,Urine 8 /hpf (0-5); Specific Gravity,Urine 1.021 (1.001-1.035); Squamous Epithelial Cell,Urine 1 /hpf (0-4); Urobilinogen,Urine <2.0 mg/dL (<2.0); WBC,Urine 6 /hpf (0-5)
[2023-08-29 08:35] LABS: Amphetamine Screen,Urine Not Detected (NotDetected); Barbiturate Screen,Urine Not Detected (NotDetected); Benzodiazepines Screen,Urine Not Detected (NotDetected); Cocaine Screen,Urine Not Detected (NotDetected); Methadone Screen, Urine Not Detected (NotDetected); Opiate Screen,Urine Not Detected (NotDetected); Oxycodone Screen, Urine Not Detected (NotDetected); Phencyclidine Screen,Urine Not Detected (NotDetected); Tricyclic Antidepressant,Urine Not Detected (NotDetected); Urn Cannabinoid Scrn Detected (NotDetected)
[2023-08-29 10:06] LABS: ALT 199 U/L (4-49); African American GFR (CKD) 73 (>60 ml/min/1.73 sqM); Albumin 3.4 g/dL (3.5-5.0); Anion Gap 12 mmol/L; Blood Urea Nitrogen 55 mg/dL (9-20); Calcium 8.7 mg/dL (8.4-10.2); Carbon Dioxide 25 mmol/L (22-30); Chloride 118 mmol/L (98-107); Glucose 93 mg/dL (74-99); Non-African American GFR(CKD) 63 (>60 ml/min/1.73 sqM); Sodium 155 mmol/L (137-145); Total Bilirubin 0.8 mg/dL (0.2-1.3); Total Protein 5.9 g/dL (6.3-8.2)
[2023-08-29 10:13] LABS: AST 115 U/L (17-59); Alkaline Phosphatase 83 U/L (38-126); Potassium 3.6 mmol/L (3.5-5.1)
[2023-08-29 10:14] LABS: Basophils # (A) 0.2 k/uL (0-0.2); Basophils % (A) 1 %; Eosinophils % (A) 0 %; HCT 51.2 % (39.0-53.0); HGB 16.1 gm/dL (13.0-17.5); Hypochromasia Moderate; Lymphocytes # (A) 0.6 k/uL (1.0-4.8); Lymphocytes % (A) 3 %; MCH 31.7 pg (25.0-35.0); MCHC 31.4 g/dL (31.0-37.0); MCV 100.9 fL (80.0-100.0); Macrocytosis Slight; Mean Platelet Volume 10.2; Monocytes # (A) 0.7 k/uL (0-1.0); Monocytes % (A) 4 %; Neutrophils # (A) 17.8 k/uL (1.3-7.7); Neutrophils % (A) 92 %; Platelet Count 268 k/uL (150-450); RBC 5.07 m/uL (4.30-5.90); RDW 13.9 % (11.5-15.5); WBC 19.4 k/uL (3.8-10.6)
[2023-08-29] MEDS: DEXTROSE 5%-0.45% NACL 1,000 ML IV SCH (10:14)
--- NOTE | 2023-08-29 12:06 | US ---
EXAMINATION TYPE: US carotid duplex BILAT DATE OF EXAM: 08/29/2023 COMPARISON: NONE CLINICAL INDICATION: Male, 67 years old with history of Syncope; Syncope. Hx hypertension, current sm oker. TECHNIQUE: Carotid duplex ultrasound examination. Indirect Doppler criteria was utilized. FINDINGS: EXAM MEASUREMENTS: RIGHT: Peak Systolic Velocity (PSV) cm/sec ----- Right CCA: 38.1 ----- Right ICA: 72.9 ----- Right ECA: 100.0 ICA/CCA ratio: 1.9 RIGHT: End Diastole cm/sec ----- Right CCA: 14.6 ----- Right ICA: 34.5 ----- Right ECA: 19.3 LEFT: Peak Systolic Velocity (PSV) cm/sec ----- Left CCA: 48.3 ----- Left ICA: 112.4 ----- Left ECA: 45.5 ICA/CCA ratio: 2.3 LEFT: End Diastole cm/sec ----- Left CCA: 20.6 ----- Left ICA: 50.9 ----- Left ECA: 12.0 VERTEBRALS (direction of flow): Right Vertebral: Antegrade Left Vertebral: Antegrade Rhythm: Normal SURGICAL ORDERLY NOTES: No elevated velocities at this time. Plaque seen within bilateral carotid bulbs. IMPRESSION: Less than 50% stenosis of the bilateral carotid bifurcations by peak systolic velocity. Elevated ICA/ CCA ratio and the left consider further evaluation with CTA . . Criteria for Assigning % of Stenosis / Diameter reduction (Estimation based on the indirect measurements of the internal carotid artery velocities (ICA PSV). 1. Normal (no stenosis)=ICA PSV < 125 cm/s: ratio < 2.0: ICA EDV<40 cm/s. 2. Less than 50% stenosis=ICA PSV < 125 cm/s: ratio < 2.0: ICA EDV<40 cm/s. 3. 50 to 69% stenosis=ICA PSV of 125 to 230 cm/s: ration 2.0 ? 4.0: ICA EDV 40-100 cm/s. 4. Greater than 70% stenosis to near occlusion= ICA PSV > 230 cm/s: ratio > 4.0: ICA EDV > 100 cm/s. 5. Near occlusion= ICA PSV velocities may be low or undetectable: variable ratio and ICA EDV. 6. Total occlusion=unable to detect flow.
--- NOTE | 2023-08-29 12:11 | P.NPCON ---
History of Present Illness - Reason for Consult acute renal failure, hypernatremia - History of Present Illness Reason for consultation: Acute kidney injury and hyponatremia History of present illness: Patient is a 67-year-old male seen in renal consultation for acute kidney injury and hypernatremia. Patient's baseline creatinine is near 0.6-0.7 from earlier this month. Creatinine on admission was 1.96 and is down to 1.2 today. Patient is not a very reliable historian. Patient came to the hospital due to altered mental status and possible syncopal episode. From the records as noted the patient was found unresponsive while going to the bathroom. Patient states that he has been vomiting for the last few days. It is also noted that patient has chronic nausea and vomiting. He does take lisinopril at home which is currently held. Patient sodium on admission was 151 and is 155 this morning. Patient received 1 L bolus of normal saline and is now maintained on half-normal saline due to hypernatremia. Patient's blood pressure was as low as 56/45 this admission and is now up to 130/94. I do not see any nonsteroidals on his home medication list. No history of diabetes. No edema. Denies chest pain or shortness of breath. Vital signs are stable. General: No acute distress. HEENT: Head exam is unremarkable. LUNGS: No audible rhonchi or wheezes. HEART: Rate and Rhythm are regular. ABDOMEN: Nontender. EXTREMITITES: No edema. Past Medical History Past Medical History: Asthma, Coronary Artery Disease (CAD), Chest Pain / Angina, CVA/TIA, GERD/Reflux, Hyperlipidemia, Hypertension, Pneumonia, Rheumatoid Arthritis (RA) Additional Past Medical History / Comment(s): MIGRAINES, HEART MURMUR, hx HIATAL HERNIA, ANEMIA, one dr told him he had a stroke at one time-no effects, varicose veins, history of incarcerated per esophageal hernia, status post robotic-assisted paraesophageal hernia repair and Frederick fundoplication on 04/12/2022. History of Any Multi-Drug Resistant Organisms: None Reported Past Surgical History: Heart Catheterization, Hernia Repair, Orthopedic Surgery Additional Past Surgical History / Comment(s): Lt achilles tendon,RT SHOULDER surgery, RT ACHILLES TENDON reattached, HEMORRHOIDECTOMY, 13 FATTY TUMORS removed. left hand index finger surgery after injury, EGD WITH DILATION, paraesophageal hernia repair with Frederick fundoplication on 04/12/2022. Past Anesthesia/Blood Transfusion Reactions: No Reported Reaction Additional Past Anesthesia/Blood Transfusion Reaction / Comment(s): no hx blood transfusion Past Psychological History: Anxiety, Depression Smoking Status: Former smoker Past Alcohol Use History: None Reported Past Drug Use History: Marijuana - Past Family History Mother Family Medical History: Cancer Father Additional Family Medical History / Comment(s): thinks aneurysm Medications and Allergies Home Medications Medication Instructions Recorded Confirmed Type Metoprolol Tartrate [Lopressor] 12.5 mg PO BID 08/20/18 08/28/23 History lisinopriL [Zestril] 5 mg PO DAILY #30 tab 11/06/22 08/28/23 Rx Nitroglycerin Sl Tabs [Nitrostat] 0.4 mg SUBLINGUAL Q5M PRN 08/08/23 08/28/23 History Sertraline [Zoloft] 25 mg PO DAILY 08/08/23 08/28/23 History busPIRone HCL [Buspar] 7.5 mg PO BID 08/08/23 08/28/23 History Allergies Allergy/AdvReac Type Severity Reaction Status Date / Time No Known Allergies Allergy Verified 08/08/23 09:14 Physical Exam Vitals: Vital Signs Temp Pulse Resp BP Pulse Ox 08/29/23 10:19 98.2 F 90 18 130/94 99 08/29/23 04:00 74 15 117/50 99 08/29/23 02:00 92 18 126/96 98 08/28/23 20:30 86 22 141/98 98 08/28/23 19:35 68 14 109/95 97 08/28/23 17:41 110/96 08/28/23 17:37 95 13 56/45 95 08/28/23 17:27 97.4 F L 96 16 75/45 96 Intake and Output 08/28/23 08/29/23 08/29/23 22:59 06:59 14:59 Other: Weight 65.771 kg Results - Lab Results Most recent lab results Calcium 8.7 mg/dL (8.4-10.2) 08/29/23 08:28 Magnesium 2.8 mg/dL (1.6-2.3) H 08/28/23 17:49 08/29/23 08:28 08/29/23 08:28 Assessment and Plan Plan: Assessment: 1. Acute kidney injury secondary to vasomotor nephropathy secondary to hypotension and hypovolemia. Creatinine 1.96 on admission and is down to 1.2. Baseline creatinine 0.7-0.8. 2. Hypernatremia from lack of oral water intake. 3. Hypotension secondary to hypovolemia and lisinopril. Improved. 4. Hypokalemia from poor intake. Plan: Increase rate of half-normal saline to 150 cc an hour. Repeat sodium level this evening. Check renal ultrasound. Hold antihypertensives. Avoid nephrotoxins. Encouraged oral intake, including free water. Follow-up echocardiogram. Replace potassium. Thank you for the consultation. I will continue to follow the patient with you during his hospital stay.
--- NOTE | 2023-08-29 13:01 | US ---
EXAMINATION TYPE: US kidneys/renal and bladder DATE OF EXAM: 08/29/2023 COMPARISON: NONE CLINICAL INDICATION: Male, 67 years old with history of ruba; EXAM MEASUREMENTS: Right Kidney: 11.2 x 5.5 x 5.6 cm Left Kidney: 10.9 x 5.2 x 4.9 cm Post Void Residual Volume: NA mL Right Kidney: wnl Left Kidney: wnl Bladder: Not distended; boucher within and therefore limited. Bilateral Jets seen: Not distended Normal Post Void Residual: NA There is no evidence for hydronephrosis at this point in time. No nephrolithiasis is seen. No ashlie s are identified. Renal cortical thickness and echogenicity normal. IMPRESSION: No acute process.
[2023-08-29] MEDS: POTASSIUM CHLORIDE ER 20 MEQ TAB.ER PO STA ×2 (13:14→22:11)
--- NOTE | 2023-08-29 13:36 | P.HPIM ---
History of Present Illness H&P Date: 08/29/23 History of present illness; patient is a 67-year-old gentleman with past medical history significant for hypertension was brought to the ER following a syncopal episode. Patient history of chronic nausea and vomiting and has been multiple times admitted for similar complaints. Patient apparently was on his way to the restroom when he passed out. There was no complaint of any jerking movement on extremity. There was no complaint of bowel or urine incontinence. There was no complaint of fever or chills. EMS was called and patient was brought to the ER. In the ER patient was responsive, answering was appropriately and moving all extremities. Initial lab work done in the ER showed WBC 16.8, hemoglobin 15.4, platelet count 341, sodium 151, potassium 3.7, BUN 64, creatinine 1.96 calcium 8.1, magnesium 2.8, AST 189, ALT 190, troponin 0.148 EKG done in the ER showed heart rate of 95, ST depression seen in leads V2 and V3, T wave inversions seen in leads II, 3, aVF, V3, V4, V5 V6 Chest x-ray done in the ER no acute process CT head done showed no acute intracranial process CT cervical spine done showed no acute trauma, mild degenerative changes Patient admitted to internal medicine service REVIEW OF SYSTEMS: CONSTITUTIONAL: No fever, no malaise, no fatigue. HEENT: No recent visual problems or hearing problems. Denied any sore throat. CARDIOVASCULAR: No chest pain, orthopnea, PND, no palpitations, no syncope. PULMONARY: No shortness of breath, no cough, no hemoptysis. GASTROINTESTINAL: No diarrhea, no nausea, no vomiting, no abdominal pain. NEUROLOGICAL: No headaches, no weakness, no numbness. HEMATOLOGICAL: Denies any bleeding or petechiae. GENITOURINARY: Denies any burning micturition, frequency, or urgency. MUSCULOSKELETAL/RHEUMATOLOGICAL: Denies any joint pain, swelling, or any muscle pain. ENDOCRINE: Denies any polyuria or polydipsia. The rest of the 14-point review of systems is negative. PHYSICAL EXAMINATION: GENERAL: The patient is alert and oriented x3, not in any acute distress. Well developed, well nourished. HEENT: Pupils are round and equally reacting to light. EOMI. No scleral icterus. No conjunctival pallor. Normocephalic, atraumatic. No pharyngeal erythema. No thyromegaly. CARDIOVASCULAR: S1 and S2 present. No murmurs, rubs, or gallops. PULMONARY: Chest is clear to auscultation, no wheezing or crackles. ABDOMEN: Soft, nontender, nondistended, normoactive bowel sounds. No palpable organomegaly. MUSCULOSKELETAL: No joint swelling or deformity. EXTREMITIES: No cyanosis, clubbing, or pedal edema. NEUROLOGICAL: Gross neurological examination did not reveal any focal deficits. SKIN: No rashes. Assessment and plan Elevated troponin Syncopal episode GERONIMO Hypernatremia Lactic acidosis Elevated LFTs Intractable nausea vomiting Moderate hiatal hernia with reflux esophagitis History of paraesophageal hernia repair and hiatal hernia repair History of CVA/TIA Hypertension Hyperlipidemia Rheumatoid arthritis Coronary artery disease with prior history of cardiac catheterization. Anxiety/depression Prior history of smoking Marijuana use Monitor vital signs Monitor CBC Monitor CMP Continue telemetry monitoring Trend troponins Ordered 2D echo And ultrasound of carotids Continue IV fluids, change fluids of normal saline to D5 half-normal Resume home meds Consult nephrology Consult cardiology Labs and medication were reviewed.. Continue same treatment. Continue with symptomatic treatment. Resume home medication. Monitor labs and vitals. DVT and GI prophylaxis. Further recommendations as per clinical course of the patient Dictation was produced using [employer] dictation software. please excuse any grammatical, word or spelling errors. Past Medical History Past Medical History: Asthma, Coronary Artery Disease (CAD), Chest Pain / Angina, CVA/TIA, GERD/Reflux, Hyperlipidemia, Hypertension, Pneumonia, Rheumatoid Arthritis (RA) Additional Past Medical History / Comment(s): MIGRAINES, HEART MURMUR, hx HIATAL HERNIA, ANEMIA, one dr told him he had a stroke at one time-no effects, varicose veins, history of incarcerated per esophageal hernia, status post robotic-assisted paraesophageal hernia repair and Frederick fundoplication on 04/12/2022. History of Any Multi-Drug Resistant Organisms: None Reported Past Surgical History: Heart Catheterization, Hernia Repair, Orthopedic Surgery Additional Past Surgical History / Comment(s): Lt achilles tendon,RT SHOULDER surgery, RT ACHILLES TENDON reattached, HEMORRHOIDECTOMY, 13 FATTY TUMORS removed. left hand index finger surgery after injury, EGD WITH DILATION, paraesophageal hernia repair with Frederick fundoplication on 04/12/2022. Past Anesthesia/Blood Transfusion Reactions: No Reported Reaction Additional Past Anesthesia/Blood Transfusion Reaction / Comment(s): no hx blood transfusion Past Psychological History: Anxiety, Depression Smoking Status: Former smoker Past Alcohol Use History: None Reported Past Drug Use History: Marijuana - Past Family History Mother Family Medical History: Cancer Father Additional Family Medical History / Comment(s): thinks aneurysm Medications and Allergies Home Medications Medication Instructions Recorded Confirmed Type Metoprolol Tartrate [Lopressor] 12.5 mg PO BID 08/20/18 08/28/23 History lisinopriL [Zestril] 5 mg PO DAILY #30 tab 11/06/22 08/28/23 Rx Nitroglycerin Sl Tabs [Nitrostat] 0.4 mg SUBLINGUAL Q5M PRN 08/08/23 08/28/23 History Sertraline [Zoloft] 25 mg PO DAILY 08/08/23 08/28/23 History busPIRone HCL [Buspar] 7.5 mg PO BID 08/08/23 08/28/23 History Allergies Allergy/AdvReac Type Severity Reaction Status Date / Time No Known Allergies Allergy Verified 08/08/23 09:14 Physical Exam Vitals: Vital Signs Temp Pulse Resp BP Pulse Ox 08/29/23 10:19 98.2 F 90 18 130/94 99 08/29/23 04:00 74 15 117/50 99 08/29/23 02:00 92 18 126/96 98 08/28/23 20:30 86 22 141/98 98 08/28/23 19:35 68 14 109/95 97 08/28/23 17:41 110/96 08/28/23 17:37 95 13 56/45 95 08/28/23 17:27 97.4 F L 96 16 75/45 96 Intake and Output 08/28/23 08/29/23 08/29/23 22:59 06:59 14:59 Other: Weight 65.771 kg Results CBC & Chem 7: 08/29/23 08:28 08/29/23 08:28 Labs: Abnormal Lab Results - Last 24 Hours (Table) 08/28/23 08/28/23 08/28/23 Range/Units 01:44 17:38 17:39 WBC (3.8-10.6) k/uL MCV (80.0-100.0) fL Neutrophils # (1.3-7.7) k/uL Lymphocytes # (1.0-4.8) k/uL PT (10.0-12.5) sec INR (<1.2) APTT (22.0-30.0) sec VBG pH (7.31-7.41) Sodium (137-145) mmol/L Chloride (98-107) mmol/L BUN (9-20) mg/dL Creatinine (0.66-1.25) mg/dL Glucose (74-99) mg/dL POC Glucose (mg/dL) 53 L 177 H (70-110) mg/dL Plasma Lactic Acid Jack (0.7-2.0) mmol/L Calcium (8.4-10.2) mg/dL Magnesium (1.6-2.3) mg/dL AST (17-59) U/L ALT (4-49) U/L Troponin I (0.000-0.034) ng/mL Total Protein (6.3-8.2) g/dL Albumin (3.5-5.0) g/dL Urine Protein Trace H (Negative) Urine Blood Small H (Negative) Urine RBC 8 H (0-5) /hpf Urine WBC 6 H (0-5) /hpf Amorphous Sediment Rare H (None) /hpf Urine Bacteria Occasional H (None) /hpf Hyaline Casts 34 H (0-2) /lpf Urine Mucus Occasional H (None) /hpf U Marijuana (THC) Screen (NotDetected) 08/28/23 08/28/23 08/28/23 Range/Units 17:49 17:49 17:49 WBC (3.8-10.6) k/uL MCV (80.0-100.0) fL Neutrophils # (1.3-7.7) k/uL Lymphocytes # (1.0-4.8) k/uL PT (10.0-12.5) sec INR (<1.2) APTT (22.0-30.0) sec VBG pH 7.42 H (7.31-7.41) Sodium 151 H (137-145) mmol/L Chloride 112 H (98-107) mmol/L BUN 64 H (9-20) mg/dL Creatinine 1.96 H (0.66-1.25) mg/dL Glucose 192 H (74-99) mg/dL POC Glucose (mg/dL) (70-110) mg/dL Plasma Lactic Acid Jack (0.7-2.0) mmol/L Calcium 8.1 L (8.4-10.2) mg/dL Magnesium 2.8 H (1.6-2.3) mg/dL AST 189 H (17-59) U/L ALT 190 H (4-49) U/L Troponin I 0.148 H* (0.000-0.034) ng/mL Total Protein 5.5 L (6.3-8.2) g/dL Albumin 3.3 L (3.5-5.0) g/dL Urine Protein (Negative) Urine Blood (Negative) Urine RBC (0-5) /hpf Urine WBC (0-5) /hpf Amorphous Sediment (None) /hpf Urine Bacteria (None) /hpf Hyaline Casts (0-2) /lpf Urine Mucus (None) /hpf U Marijuana (THC) Screen (NotDetected) 08/28/23 08/28/23 08/28/23 Range/Units 17:50 17:50 17:50 WBC 16.8 H (3.8-10.6) k/uL MCV (80.0-100.0) fL Neutrophils # 14.4 H (1.3-7.7) k/uL Lymphocytes # (1.0-4.8) k/uL PT 12.8 H (10.0-12.5) sec INR 1.2 H (<1.2) APTT 21.6 L (22.0-30.0) sec VBG pH (7.31-7.41) Sodium (137-145) mmol/L Chloride (98-107) mmol/L BUN (9-20) mg/dL Creatinine (0.66-1.25) mg/dL Glucose (74-99) mg/dL POC Glucose (mg/dL) (70-110) mg/dL Plasma Lactic Acid Jack 8.1 H* (0.7-2.0) mmol/L Calcium (8.4-10.2) mg/dL Magnesium (1.6-2.3) mg/dL AST (17-59) U/L ALT (4-49) U/L Troponin I (0.000-0.034) ng/mL Total Protein (6.3-8.2) g/dL Albumin (3.5-5.0) g/dL Urine Protein (Negative) Urine Blood (Negative) Urine RBC (0-5) /hpf Urine WBC (0-5) /hpf Amorphous Sediment (None) /hpf Urine Bacteria (None) /hpf Hyaline Casts (0-2) /lpf Urine Mucus (None) /hpf U Marijuana (THC) Screen (NotDetected) 08/28/23 08/28/23 08/28/23 Range/Units 19:43 19:43 22:20 WBC (3.8-10.6) k/uL MCV (80.0-100.0) fL Neutrophils # (1.3-7.7) k/uL Lymphocytes # (1.0-4.8) k/uL PT (10.0-12.5) sec INR (<1.2) APTT (22.0-30.0) sec VBG pH (7.31-7.41) Sodium (137-145) mmol/L Chloride (98-107) mmol/L BUN (9-20) mg/dL Creatinine (0.66-1.25) mg/dL Glucose (74-99) mg/dL POC Glucose (mg/dL) (70-110) mg/dL Plasma Lactic Acid Jack 2.5 H* 2.3 H* (0.7-2.0) mmol/L Calcium (8.4-10.2) mg/dL Magnesium (1.6-2.3) mg/dL AST (17-59) U/L ALT (4-49) U/L Troponin I 0.133 H* (0.000-0.034) ng/mL Total Protein (6.3-8.2) g/dL Albumin (3.5-5.0) g/dL Urine Protein (Negative) Urine Blood (Negative) Urine RBC (0-5) /hpf Urine WBC (0-5) /hpf Amorphous Sediment (None) /hpf Urine Bacteria (None) /hpf Hyaline Casts (0-2) /lpf Urine Mucus (None) /hpf U Marijuana (THC) Screen (NotDetected) 08/29/23 08/29/23 08/29/23 Range/Units 00:20 01:44 08:28 WBC 19.4 H (3.8-10.6) k/uL MCV 100.9 H (80.0-100.0) fL Neutrophils # 17.8 H (1.3-7.7) k/uL Lymphocytes # 0.6 L (1.0-4.8) k/uL PT (10.0-12.5) sec INR (<1.2) APTT (22.0-30.0) sec VBG pH (7.31-7.41) Sodium (137-145) mmol/L Chloride (98-107) mmol/L BUN (9-20) mg/dL Creatinine (0.66-1.25) mg/dL Glucose (74-99) mg/dL POC Glucose (mg/dL) (70-110) mg/dL Plasma Lactic Acid Jack (0.7-2.0) mmol/L Calcium (8.4-10.2) mg/dL Magnesium (1.6-2.3) mg/dL AST (17-59) U/L ALT (4-49) U/L Troponin I 0.108 H* (0.000-0.034) ng/mL Total Protein (6.3-8.2) g/dL Albumin (3.5-5.0) g/dL Urine Protein (Negative) Urine Blood (Negative) Urine RBC (0-5) /hpf Urine WBC (0-5) /hpf Amorphous Sediment (None) /hpf Urine Bacteria (None) /hpf Hyaline Casts (0-2) /lpf Urine Mucus (None) /hpf U Marijuana (THC) Screen Detected H (NotDetected) 08/29/23 Range/Units 08:28 WBC (3.8-10.6) k/uL MCV (80.0-100.0) fL Neutrophils # (1.3-7.7) k/uL Lymphocytes # (1.0-4.8) k/uL PT (10.0-12.5) sec INR (<1.2) APTT (22.0-30.0) sec VBG pH (7.31-7.41) Sodium 155 H (137-145) mmol/L Chloride 118 H (98-107) mmol/L BUN 55 H (9-20) mg/dL Creatinine (0.66-1.25) mg/dL Glucose (74-99) mg/dL POC Glucose (mg/dL) (70-110) mg/dL Plasma Lactic Acid Jack (0.7-2.0) mmol/L Calcium (8.4-10.2) mg/dL Magnesium (1.6-2.3) mg/dL AST 115 H (17-59) U/L ALT 199 H (4-49) U/L Troponin I (0.000-0.034) ng/mL Total Protein 5.9 L (6.3-8.2) g/dL Albumin 3.4 L (3.5-5.0) g/dL Urine Protein (Negative) Urine Blood (Negative) Urine RBC (0-5) /hpf Urine WBC (0-5) /hpf Amorphous Sediment (None) /hpf Urine Bacteria (None) /hpf Hyaline Casts (0-2) /lpf Urine Mucus (None) /hpf U Marijuana (THC) Screen (NotDetected)
--- NOTE | 2023-08-29 13:41 | CA ---
Transthoracic Echo Report Name: Finn Alex Age: 67 Gender: M : 1955 Exam Date: 08/29/2023 10:19 Exam Location: [facility] Ht (in): 68 Wt (lb): 145 Ordering Physician: Cookie Gudino Attending/Referring Phys: [id number], Terese Surveillance Specialist Brittney Torres RCS Procedure CPT: Indications: LVF Cardiac Hx: Technical Quality: Technically difficult study Contrast 1: Definity Total Dose (mL): 2 Contrast 2: Total Dose (mL): MEASUREMENTS (Male / Female) Normal Values 2D ECHO LV Diastolic Diameter PLAX 4.1 cm 4.2 - 5.9 / 3.9 - 5.3 cm LV Systolic Diameter PLAX 2.4 cm IVS Diastolic Thickness 0.7 cm 0.6 - 1.0 / 0.6 - 0.9 cm LVPW Diastolic Thickness 0.8 cm 0.6 - 1.0 / 0.6 - 0.9 cm LV Relative Wall Thickness 0.4 RV Internal Dim ED PLAX 2.3 cm LVOT Diameter 2.1 cm LV Diastolic Volume MOD 4C 57.3 cm??? LV Systolic Volume MOD 4C 38.6 cm??? LV Ejection Fraction MOD 4C 32.7 % LV Cardiac Index MOD 4C 949.5 cm???/min???m??? LV Diastolic Length 4C 7.5 cm LV Systolic Length 4C 7.3 cm LV Diastolic Volume MOD 2C 39.9 cm??? LV Diastolic Length 2C 7.5 cm LA Volume 23.0 cm??? 18 - 58 / 22 - 52 cm??? LA Volume Index 13.0 cm???/m??? 16 - 28 cm???/m??? DOPPLER MV Area PHT 4.6 cm??? Mitral E Point Velocity 44.9 cm/s Mitral A Point Velocity 58.9 cm/s Mitral E to A Ratio 0.8 MV Deceleration Time 164.8 ms PV Peak Velocity 144.2 cm/s PV Peak Gradient 8.3 mmHg FINDINGS Left Ventricle Left ventricular ejection fraction is estimated at 60-65 %. Left ventricular cavity size small. Left ventricular wall thickness normal. No obvious regional wall motion abnormalities. Right Ventricle Normal right ventricular size and function. Unable to estimate right ventricular systolic pressure. Right Atrium Normal right atrial size. Left Atrium Normal left atrial size. Mitral Valve Structurally normal mitral valve. No evidence for mitral valve prolapse. No mitral stenosis. No mitral regurgitation. Aortic Valve Aortic valve not well visualized. Tricuspid Valve Structurally normal tricuspid valve. No tricuspid stenosis. No tricuspid regurgitation. Pulmonic Valve Pulmonic valve not well visualized. . No pulmonic stenosis. No pulmonic regurgitation. Pericardium No pericardial effusion. Aorta Aortic annulus normal. Ascending aorta not well visualized. CONCLUSIONS Technically difficult study. Definity ECHO contrast used for improved visualization of the endocardial borders (inadequate visualization of two or more contiguous segments). Normal left ventricle size and systolic function Limited Doppler study with no gross abnormalities Previewed by: Dr. César Robles MD (Electronically Signed) Final Date: 29 August 2023 13:41
--- NOTE | 2023-08-29 14:27 | P.CRDCN ---
History of Present Illness Consult date: 08/29/23 Reason for Consult (text): Elevated Troponin History of present illness: History of present illness: This is a 67-year-old male patient of Dr. Mckeon with past medical history of valvular heart disease with mitral regurgitation, hypertension. Patient also has chronic intractable nausea and vomiting. He recently underwent hiatal hernia repair in April 2023 and then cholecystectomy in May 2023. We have been asked to evaluate the patient for elevated troponins. He states he has been vomiting for weeks and has had multiple syncopal episodes with lightheadedness and dizziness. He states he had a little chest pain which is gone now. He states he feels tired and still nauseated. His initial blood pressure was 75/45. He states he has not had weight loss of 10 pounds over the past 1 month. Patient states that he has been taking all of his cardiac medications as directed although he has ongoing vomiting. Patient is status p ost 1 L of IV fluid and ceftriaxone. His blood pressure is now 117/50, heart rate 74. EKG sinus rhythm with LVH Chest x-ray: No acute process. WBC 16.8, hemoglobin 15.4, platelet count 341. INR 1.2. Sodium 151, potassium 3.7, chloride 112, CO2 24, BUN 64 creatinine 1.96. Blood sugar 192. Initial lactic acid 2.3 and repeat 1.1. Troponin 0.148, 0.133, 0.108. Calcium 8.1, magnesium 2.8. AST 189, ALT 190, alkaline phosphatase 80. Home cardiac medications: Lisinopril 5 mg daily, magnesium 250 mg 2 tablets daily, metoprolol tartrate half tablet twice daily, Nitrostat as needed. Most recent echocardiogram performed 08/07/2020 revealed EF of 55 to 60% mild MR, mild TR. Cardiac catheterization performed in 2019 revealed normal coronaries. Exercise stress test performed 09/03/2020 revealed fair exercise tolerance. No symptoms of typical of angina. No dysrhythmias. Normal electrocardiographic response to exercise with no evidence of stress-induced ischemia. Review Of Systems: At the time of my exam: CONSTITUTIONAL: Denies fever or chills. HEENT: Denies blurred vision, vision changes, or eye pain. Denies hemoptysis CARDIOVASCULAR: Denies chest pain. Denies orthopnea. Denies PND. Denies palpitations RESPIRATORY: Denies shortness of breath. GASTROINTESTINAL: Denies abdominal pain. Denies nausea or vomiting. HEMATOLOGIC: Denies bleeding disorders. GENITOURINARY: Denies any blood in urine. SKIN: Denies pruitis. Denies rash. Physical examination: Gen: This is a 67-year-old male appears to be ill and uncomfortable. VS: reviewed HEENT: Head is atraumatic, normocephalic. Pupils equal, round. Sclerae is anicteric. NECK: Supple. No JVD. LUNGS: Clear to auscultation. No wheezes or rhonchi. No intercostal retractions. HEART: Regular rate and rhythm. Systolic murmur at the right and left upper sternal borders. Tenderness at the lower sternal border epigastric area. ABDOMEN: Soft epigastric tenderness. EXTREMITIES: No pedal edema. No calf tenderness. NEUROLOGICAL: Patient is awake, alert and oriented x3. Assessment: Elevated troponins of unclear etiology possibly due to acute kidney injury Acute kidney injury Intractable nausea and vomiting Hyponatremia Valvular heart disease with moderate MR Plan: Resume patient's home cardiac medications Recommend consult with nephrology Discontinue IV fluids 0.9 normal Start patient on IV fluids D5.45 normal saline at 100 cc/h Obtain 2-D echocardiogram and Doppler study to assess cardiac structure and function Further recommendations to follow based upon clinical course Thank you kindly for this consultation. Nurse practitioner note has been reviewed, I agree with documented findings and plan of care. Patient was seen and examined. Past Medical History Past Medical History: Asthma, Coronary Artery Disease (CAD), Chest Pain / Angina, CVA/TIA, GERD/Reflux, Hyperlipidemia, Hypertension, Pneumonia, Rheumatoid Arthritis (RA) Additional Past Medical History / Comment(s): MIGRAINES, HEART MURMUR, hx HIATAL HERNIA, ANEMIA, one dr told him he had a stroke at one time-no effects, varicose veins, history of incarcerated per esophageal hernia, status post robotic-assisted paraesophageal hernia repair and Frederick fundoplication on 04/12/2022. History of Any Multi-Drug Resistant Organisms: None Reported Past Surgical History: Heart Catheterization, Hernia Repair, Orthopedic Surgery Additional Past Surgical History / Comment(s): Lt achilles tendon,RT SHOULDER surgery, RT ACHILLES TENDON reattached, HEMORRHOIDECTOMY, 13 FATTY TUMORS removed. left hand index finger surgery after injury, EGD WITH DILATION, paraesophageal hernia repair with Frederick fundoplication on 04/12/2022. Past Anesthesia/Blood Transfusion Reactions: No Reported Reaction Additional Past Anesthesia/Blood Transfusion Reaction / Comment(s): no hx blood transfusion Past Psychological History: Anxiety, Depression Smoking Status: Former smoker Past Alcohol Use History: None Reported Past Drug Use History: Marijuana - Past Family History Mother Family Medical History: Cancer Father Additional Family Medical History / Comment(s): thinks aneurysm Medications and Allergies Home Medications Medication Instructions Recorded Confirmed Type Metoprolol Tartrate [Lopressor] 12.5 mg PO BID 08/20/18 08/28/23 History lisinopriL [Zestril] 5 mg PO DAILY #30 tab 11/06/22 08/28/23 Rx Nitroglycerin Sl Tabs [Nitrostat] 0.4 mg SUBLINGUAL Q5M PRN 08/08/23 08/28/23 History Sertraline [Zoloft] 25 mg PO DAILY 08/08/23 08/28/23 History busPIRone HCL [Buspar] 7.5 mg PO BID 08/08/23 08/28/23 History Allergies Allergy/AdvReac Type Severity Reaction Status Date / Time No Known Allergies Allergy Verified 08/08/23 09:14 Physical Exam Vitals: Vital Signs Temp Pulse Resp BP Pulse Ox 08/29/23 04:00 74 15 117/50 99 08/29/23 02:00 92 18 126/96 98 08/28/23 20:30 86 22 141/98 98 08/28/23 19:35 68 14 109/95 97 08/28/23 17:41 110/96 08/28/23 17:37 95 13 56/45 95 08/28/23 17:27 97.4 F L 96 16 75/45 96 Intake and Output 08/28/23 08/29/23 08/29/23 22:59 06:59 14:59 Other: Weight 65.771 kg Results 08/29/23 08:28 08/29/23 08:28 Cardiac Enzymes 08/28/23 08/28/23 08/28/23 Range/Units 17:49 17:49 19:43 AST 189 H (17-59) U/L Troponin I 0.148 H* 0.133 H* (0.000-0.034) ng/mL 08/29/23 Range/Units 00:20 AST (17-59) U/L Troponin I 0.108 H* (0.000-0.034) ng/mL Coagulation 08/28/23 Range/Units 17:50 PT 12.8 H (10.0-12.5) sec APTT 21.6 L (22.0-30.0) sec CBC 08/28/23 Range/Units 17:50 WBC 16.8 H (3.8-10.6) k/uL RBC 4.86 (4.30-5.90) m/uL Hgb 15.4 (13.0-17.5) gm/dL Hct 47.1 (39.0-53.0) % Plt Count 341 (150-450) k/uL Comprehensive Metabolic Panel 08/28/23 Range/Units 17:49 Sodium 151 H (137-145) mmol/L Potassium 3.7 (3.5-5.1) mmol/L Chloride 112 H (98-107) mmol/L Carbon Dioxide 24 (22-30) mmol/L BUN 64 H (9-20) mg/dL Creatinine 1.96 H (0.66-1.25) mg/dL Glucose 192 H (74-99) mg/dL Calcium 8.1 L (8.4-10.2) mg/dL AST 189 H (17-59) U/L ALT 190 H (4-49) U/L Alkaline Phosphatase 80 (38-126) U/L Total Protein 5.5 L (6.3-8.2) g/dL Albumin 3.3 L (3.5-5.0) g/dL Current Medications Generic Name Dose Route Start Last Admin Trade Name Freq PRN Reason Stop Dose Admin Hydromorphone HCl 0.5 mg 08/28/23 20:58 Hydromorphone 0.5 Mg/0.5 Ml Syringe IVP Q3HR PRN Moderate Pain (Scale 4 to 6) Sodium Chloride 1,000 mls @ 130 mls/hr 08/28/23 18:30 08/29/23 02:03 Saline 0.9% IV Not Given .[id number] GIRISH Naloxone HCl 0.2 mg 08/28/23 20:58 Naloxone 0.4 Mg/Ml 1 Ml Vial IV Q2M PRN Opioid Reversal Ondansetron HCl 4 mg 08/28/23 20:58 08/29/23 02:02 Ondansetron 4 Mg/2 Ml Vial IVP 4 mg Q8HR PRN Administration Nausea And Vomiting Intake and Output 08/28/23 08/29/23 08/29/23 22:59 06:59 14:59 Other: Weight 65.771 kg 08/28/23 17:50 08/28/23 17:49
[2023-08-29 18:09] LABS: Glucose,Whole Blood 112 mg/dL (70-110)
[2023-08-29 20:22] LABS: African American GFR (CKD) 77 (>60 ml/min/1.73 sqM); Anion Gap 9 mmol/L; Blood Urea Nitrogen 47 mg/dL (9-20); Calcium 8.4 mg/dL (8.4-10.2); Carbon Dioxide 25 mmol/L (22-30); Chloride 121 mmol/L (98-107); Glucose 184 mg/dL (74-99); Non-African American GFR(CKD) 66 (>60 ml/min/1.73 sqM); Sodium 155 mmol/L (137-145)
[2023-08-29] MEDS: HYDROmorphone 0.5 MG/0.5 ML SYRINGE IVP PRN (20:29)
[2023-08-29] MEDS: DEXTROSE 5% IN WATER 1,000 ML IV SCH (22:11)
[2023-08-29] MEDS: METOCLOPRAMIDE 5 MG/ML 2 ML VIAL IVP PRN (22:38)
[2023-08-30 10:42] LABS: African American GFR (CKD) 75 (>60 ml/min/1.73 sqM); Anion Gap 8 mmol/L; Blood Urea Nitrogen 35 mg/dL (9-20); Calcium 8.8 mg/dL (8.4-10.2); Carbon Dioxide 31 mmol/L (22-30); Chloride 115 mmol/L (98-107); Glucose 143 mg/dL (74-99); Magnesium 2.8 mg/dL (1.6-2.3); Non-African American GFR(CKD) 65 (>60 ml/min/1.73 sqM); Potassium 3.3 mmol/L (3.5-5.1); Sodium 154 mmol/L (137-145)
--- NOTE | 2023-08-30 11:27 | P.PN ---
Subjective Patient is seen in follow-up for acute kidney injury and hyponatremia. Renal function stable. Sodium level 154. Currently on D5W. Tolerating clear diet. Vital signs are stable. General: No acute distress. HEENT: Head exam is unremarkable. LUNGS: No audible rhonchi or wheezes. HEART: Rate and Rhythm are regular. ABDOMEN: Nontender. EXTREMITITES: No edema. Objective - Vital Signs Vital signs: Vital Signs Temp 98.1 F 08/30/23 08:00 Pulse 95 08/30/23 08:00 Resp 18 08/30/23 08:00 BP 141/84 08/30/23 08:00 Pulse Ox 95 08/30/23 09:58 FiO2 Intake & Output 08/29/23 08/30/23 08/30/23 18:59 06:59 18:59 Intake Total 340 Output Total 425 Balance -425 340 Weight 62.5 kg Intake: Intake, IV Titration 100 Amount Dextrose 5% in Water 1, 100 000 ml @ 100 mls/hr IV . Q10H [facility] Rx#:[id number] Oral 240 Output: Urine 425 Other: Voiding Method Indwelling Catheter Indwelling Catheter - Labs CBC & Chem 7: 08/29/23 08:28 08/30/23 09:12 Labs: Abnormal Lab Results - Last 24 Hours (Table) 08/29/23 08/29/23 08/30/23 Range/Units 18:08 19:41 09:12 Sodium 155 H 154 H (137-145) mmol/L Potassium 3.0 L 3.3 L (3.5-5.1) mmol/L Chloride 121 H 115 H (98-107) mmol/L Carbon Dioxide 31 H (22-30) mmol/L BUN 47 H 35 H (9-20) mg/dL Glucose 184 H 143 H (74-99) mg/dL POC Glucose (mg/dL) 112 H (70-110) mg/dL Magnesium 2.8 H (1.6-2.3) mg/dL Microbiology - Last 24 Hours (Table) 08/28/23 18:00 Blood Culture - Preliminary Blood 08/28/23 17:45 Blood Culture - Preliminary Blood Assessment and Plan Plan: Assessment: 1. Acute kidney injury secondary to vasomotor nephropathy secondary to hypotension and hypovolemia. Creatinine 1.96 on admission and is stable at 1.17 today. Baseline creatinine 0.7-0.8. No hydronephrosis noted on kidney ultrasound. 2. Hypernatremia from lack of oral water intake. 3. Hypotension secondary to hypovolemia and lisinopril. Improved. 4. Hypokalemia from poor intake. Plan: Increase rate of D5W to 125 cc an hour. Repeat sodium level this evening. Avoid nephrotoxins. Encouraged oral intake, including free water. Replace potassium. Preserved EF noted on echo.
[2023-08-30 12:10] VITALS: BMI 20.9
[2023-08-30] MEDS: METOPROLOL TARTRATE 12.5 MG TAB PO SCH (12:43)
[2023-08-30] MEDS: SERTRALINE 25 MG TAB PO SCH (12:43)
[2023-08-30] MEDS: POTASSIUM CHLORIDE ER 20 MEQ TAB.ER PO STA (12:43)
[2023-08-30] MEDS: busPIRone HCl 5 MG TAB PO SCH (12:43)
--- NOTE | 2023-08-30 12:59 | P.PN ---
Subjective Progress Note Date: 08/30/23 patient is a 67-year-old gentleman with past medical history significant for hypertension was brought to the ER following a syncopal episode. Patient history of chronic nausea and vomiting and has been multiple times admitted for similar complaints. Patient apparently was on his way to the restroom when he passed out. There was no complaint of any jerking movement on extremity. There was no complaint of bowel or urine incontinence. There was no complaint of fever or chills. EMS was called and patient was brought to the ER. In the ER patient was responsive, answering was appropriately and moving all extremities. Initial lab work done in the ER showed WBC 16.8, hemoglobin 15.4, platelet count 341, sodium 151, potassium 3.7, BUN 64, creatinine 1.96 calcium 8.1, magnesium 2.8, AST 189, ALT 190, troponin 0.148 EKG done in the ER showed heart rate of 95, ST depression seen in leads V2 and V3, T wave inversions seen in leads II, 3, aVF, V3, V4, V5 V6 Chest x-ray done in the ER no acute process CT head done showed no acute intracranial process CT cervical spine done showed no acute trauma, mild degenerative changes Patient admitted to internal medicine service 08/29. Patient seen and examined. States he feels better. 2D echo done showed normal left ventricle size and systolic function, no wall motion abnormalities.ultrasound of carotids done showed less than 50% stenosis of bilateral carotid bifurcations. Still having nausea and vomiting REVIEW OF SYSTEMS: CONSTITUTIONAL: No fever, no malaise,. CARDIOVASCULAR: No chest pain, no palpitations, no syncope. PULMONARY: No shortness of breath, no cough, GASTROINTESTINAL: No diarrhea, no abdominal pain. NEUROLOGICAL: No headaches, no weakness, PHYSICAL EXAMINATION: GENERAL: The patient is alert and oriented x3, not in any acute distress. Well developed, well nourished. HEENT: Pupils are round and equally reacting to light. EOMI. No scleral icterus. No conjunctival pallor. Normocephalic, atraumatic. No pharyngeal erythema. No thyromegaly. CARDIOVASCULAR: S1 and S2 present. No murmurs, rubs, or gallops. PULMONARY: Chest is clear to auscultation, no wheezing or crackles. ABDOMEN: Soft, nontender, nondistended, normoactive bowel sounds. No palpable organomegaly. MUSCULOSKELETAL: No joint swelling or deformity. EXTREMITIES: No cyanosis, clubbing, or pedal edema. NEUROLOGICAL: Gross neurological examination did not reveal any focal deficits. SKIN: No rashes. Assessment and plan Elevated troponin Syncopal episode GERONIMO Hypernatremia Lactic acidosis Elevated LFTs Intractable nausea vomiting Moderate hiatal hernia with reflux esophagitis History of paraesophageal hernia repair and hiatal hernia repair History of CVA/TIA Hypertension Hyperlipidemia Rheumatoid arthritis Coronary artery disease with prior history of cardiac catheterization. Anxiety/depression Prior history of smoking Marijuana use Monitor vital signs Monitor CBC Monitor CMP Continue telemetry monitoring Trend troponins 2D echo done showed normal left ventricle size and systolic function, no wall motion abnormalities. ultrasound of carotids done showed less than 50% stenosis of bilateral carotid bifurcations Continue IV fluids Continue Lopressor Continue BuSpar and Zoloft Nephrology following Cardiology following Labs and medication were reviewed.. Continue same treatment. Continue with symptomatic treatment. Resume home medication. Monitor labs and vitals. DVT and GI prophylaxis. Further recommendations as per clinical course of the patient Dictation was produced using [employer] dictation software. please excuse any grammatical, word or spelling errors. Objective - Vital Signs Vital signs: Vital Signs Temp 97.4 F L 08/30/23 04:36 Pulse 100 08/30/23 04:36 Resp 19 08/30/23 04:36 BP 139/71 08/30/23 04:36 Pulse Ox 95 08/30/23 09:58 FiO2 Intake & Output 08/29/23 08/30/23 08/30/23 18:59 06:59 18:59 Output Total 425 Balance -425 Weight 62.5 kg Output: Urine 425 Other: Voiding Method Indwelling Catheter - Labs CBC & Chem 7: 08/29/23 08:28 08/30/23 09:12 Labs: Abnormal Lab Results - Last 24 Hours (Table) 08/29/23 08/29/23 08/29/23 Range/Units 08:28 18:08 19:41 WBC 19.4 H (3.8-10.6) k/uL MCV 100.9 H (80.0-100.0) fL Neutrophils # 17.8 H (1.3-7.7) k/uL Lymphocytes # 0.6 L (1.0-4.8) k/uL Sodium 155 H (137-145) mmol/L Potassium 3.0 L (3.5-5.1) mmol/L Chloride 121 H (98-107) mmol/L BUN 47 H (9-20) mg/dL Glucose 184 H (74-99) mg/dL POC Glucose (mg/dL) 112 H (70-110) mg/dL Microbiology - Last 24 Hours (Table) 08/28/23 18:00 Blood Culture - Preliminary Blood 08/28/23 17:45 Blood Culture - Preliminary Blood
--- NOTE | 2023-08-30 14:09 | P.PN ---
Subjective Progress Note Date: 08/30/23 Reason for Consult (text): Elevated Troponin History of present illness: History of present illness: This is a 67-year-old male patient of Dr. Mckeon with past medical history of valvular heart disease with mitral regurgitation, hypertension. Patient also has chronic intractable nausea and vomiting. He recently underwent hiatal hernia repair in April 2023 and then cholecystectomy in May 2023. We have been asked to evaluate the patient for elevated troponins. He states he has been vomiting for weeks and has had multiple syncopal episodes with lightheadedness and dizziness. He states he had a little chest pain which is gone now. He states he feels tired and still nauseated. His initial blood pressure was 75/45. He states he has not had weight loss of 10 pounds over the past 1 month. Patient states that he has been taking all of his cardiac medications as directed although he has ongoing vomiting. Patient is status post 1 L of IV fluid and ceftriaxone. His blood pressure is now 117/50, heart rate 74. EKG sinus rhythm with LVH Chest x-ray: No acute process. WBC 16.8, hemoglobin 15.4, platelet count 341. INR 1.2. Sodium 151, potassium 3.7, chloride 112, CO2 24, BUN 64 creatinine 1.96. Blood sugar 192. Initial lactic acid 2.3 and repeat 1.1. Troponin 0.148, 0.133, 0.108. Calcium 8.1, magnesium 2.8. AST 189, ALT 190, alkaline phosphatase 80. Home cardiac medications: Lisinopril 5 mg daily, magnesium 250 mg 2 tablets daily, metoprolol tartrate half tablet twice daily, Nitrostat as needed. Most recent echocardiogram performed 08/07/2020 revealed EF of 55 to 60% mild MR, mild TR. Cardiac catheterization performed in 2019 revealed normal coronaries. Exercise stress test performed 09/03/2020 revealed fair exercise tolerance. No symptoms of typical of angina. No dysrhythmias. Normal electrocardiographic response to exercise with no evidence of stress-induced ischemia. 08/29 Patient is seen today on the cardiac stepdown unit. Echocardiogram reveals EF of 60 to 65%, technically difficult study. Limited Doppler study with no gross abnormalities. Blood pressure 139/71, heart rate 95, pulse ox 97% on room air. Repeat blood work reveals sodium 154, potassium 3.3, chloride 115, CO2 31, BUN 35 creatinine 1.17. Patient denies any chest pain or pressure. Patient has been seen by nephrology and IV fluids switched to D5W. Physical examination: Gen: This is a 67-year-old male appears to be ill and uncomfortable. VS: reviewed HEENT: Head is atraumatic, normocephalic. Pupils equal, round. Sclerae is ani cteric. LUNGS: Clear to auscultation. No wheezes or rhonchi. No intercostal retractions. HEART: Regular rate and rhythm. Systolic murmur at the right and left upper sternal borders. EXTREMITIES: No pedal edema. No calf tenderness. NEUROLOGICAL: Patient is awake, alert and oriented x3. Assessment: Elevated troponins most likely due to acute kidney injury, no myocardial injury Acute kidney injury Intractable nausea and vomiting Hypernatremia Valvular heart disease with moderate MR Plan: Continue patient's home cardiac medications No further cardiac workup at this time. Cardiology will sign off this case and follow on an as-needed basis. Please reconsult for any new concerns. Patient may follow-up in the office with Dr. Mckeon in one to 2 weeks. Nurse practitioner note has been reviewed, I agree with documented findings and plan of care. Patient was seen and examined. Objective - Vital Signs Vital signs: Vital Signs Temp 98.1 F 08/30/23 08:00 Pulse 95 08/30/23 08:00 Resp 18 08/30/23 08:00 BP 141/84 08/30/23 08:00 Pulse Ox 95 08/30/23 09:58 FiO2 Intake & Output 08/29/23 08/30/23 08/30/23 18:59 06:59 18:59 Intake Total 340 Output Total 425 Balance -425 340 Weight 62.5 kg 62.5 kg Intake: Intake, IV Titration 100 Amount Dextrose 5% in Water 1, 100 000 ml @ 100 mls/hr IV . Q10H [facility] Rx#:[id number] Oral 240 Output: Urine 425 Other: Voiding Method Indwelling Catheter Indwelling Catheter - Labs CBC & Chem 7: 08/29/23 08:28 08/30/23 09:12 Labs: Abnormal Lab Results - Last 24 Hours (Table) 08/29/23 08/29/23 08/30/23 Range/Units 18:08 19:41 09:12 Sodium 155 H 154 H (137-145) mmol/L Potassium 3.0 L 3.3 L (3.5-5.1) mmol/L Chloride 121 H 115 H (98-107) mmol/L Carbon Dioxide 31 H (22-30) mmol/L BUN 47 H 35 H (9-20) mg/dL Glucose 184 H 143 H (74-99) mg/dL POC Glucose (mg/dL) 112 H (70-110) mg/dL Magnesium 2.8 H (1.6-2.3) mg/dL Microbiology - Last 24 Hours (Table) 08/28/23 18:00 Blood Culture - Preliminary Blood 08/28/23 17:45 Blood Culture - Preliminary Blood
[2023-08-30 17:52] LABS: African American GFR (CKD) 88 (>60 ml/min/1.73 sqM); Anion Gap 6 mmol/L; Blood Urea Nitrogen 28 mg/dL (9-20); Calcium 8.5 mg/dL (8.4-10.2); Carbon Dioxide 29 mmol/L (22-30); Chloride 114 mmol/L (98-107); Glucose 127 mg/dL (74-99); Non-African American GFR(CKD) 77 (>60 ml/min/1.73 sqM); Potassium 3.6 mmol/L (3.5-5.1); Sodium 149 mmol/L (137-145)
[2023-08-31 08:38] LABS: Basophils # (A) 0.03 X 10*3/uL (0.00-0.10); Basophils % (A) 0.2 %; Eosinophils # (A) 0.09 X 10*3/uL (0.04-0.35); Eosinophils % (A) 0.6 %; HCT 40.2 % (39.6-50.0); HGB 13.1 g/dL (13.0-17.0); Lymphocytes # (A) 1.73 X 10*3/uL (0.90-5.00); Lymphocytes % (A) 12.5 %; MCH 30.5 pg (27.0-32.0); MCHC 32.6 g/dL (32.0-37.0); MCV 93.7 FL (80.0-97.0); Monocytes # (A) 0.77 X 10*3/uL (0.20-1.00); Monocytes % (A) 5.6 %; NRBC Per 100 WBC 0 X 10*3/uL (0.00-0.01); Neutrophils % (A) 79.4 %; Platelet Count 231 X 10*3/uL (140-440); RBC 4.29 X 10*6/uL (4.40-5.60); RDW 14.4 % (11.5-14.5); WBC 13.85 X 10*3/uL (4.50-10.00)
[2023-08-31 09:03] LABS: ALT 121 U/L (10-49); AST 46 U/L (14-35); Albumin 3.4 g/dL (3.8-4.9); Alkaline Phosphatase 104 U/L (41-126); Blood Urea Nitrogen 17.9 mg/dL (9.0-27.0); Calcium 8.5 mg/dL (8.7-10.3); Carbon Dioxide 26.8 mmol/L (21.6-31.8); Chloride 111 mmol/L (96-109); Glucose 152 mg/dL (70-110); Magnesium 2.3 mg/dL (1.5-2.4); Potassium 3.9 mmol/L (3.5-5.5); Sodium 150 mmol/L (135-145); Total Bilirubin 0.4 mg/dL (0.3-1.2); Total Protein 5.4 g/dL (6.2-8.2)
[2023-08-31] MEDS ORDERED: POTASSIUM CHLORIDE ER 20 MEQ TAB.ER PO STA (11:43)
--- NOTE | 2023-08-31 11:43 | P.PN ---
Subjective Patient is seen in follow-up for acute kidney injury and hypernatremia. Renal function stable. Sodium level 150. Currently on D5W. Oral intake remains poor. Vital signs are stable. General: No acute distress. HEENT: Head exam is unremarkable. LUNGS: No audible rhonchi or wheezes. HEART: Rate and Rhythm are regular. ABDOMEN: Nontender. EXTREMITITES: No edema. Objective - Vital Signs Vital signs: Vital Signs Temp 98.6 F 08/31/23 07:10 Pulse 87 08/31/23 07:10 Resp 17 08/31/23 07:10 BP 137/79 08/31/23 07:10 Pulse Ox 96 08/31/23 09:27 FiO2 Intake & Output 08/30/23 08/31/23 08/31/23 18:59 06:59 18:59 Intake Total 458 Output Total 500 Balance 458 -500 Weight 62.5 kg Intake: Intake, IV Titration 100 Amount Dextrose 5% in Water 1, 100 000 ml @ 100 mls/hr IV . Q10H [facility] Rx#:[id number] Oral 358 Output: Urine 500 Uretheral (Perez) 500 Other: Voiding Method Indwelling Catheter Indwelling Catheter # Bowel Movements 1 - Labs CBC & Chem 7: 08/31/23 05:22 08/31/23 05:22 Labs: Abnormal Lab Results - Last 24 Hours (Table) 08/30/23 08/31/23 08/31/23 Range/Units 16:45 05:22 05:22 WBC 13.85 H (4.50-10.00) X 10*3/uL RBC 4.29 L (4.40-5.60) X 10*6/uL Immature Gran # 0.23 H (0.00-0.04) X 10*3/uL Neutrophils # 11.00 H (1.80-7.70) X 10*3/uL Sodium 149 H 150 H (137-145) mmol/L Chloride 114 H 111 H (98-107) mmol/L Anion Gap 12.20 H (4.00-12.00) mmol/L BUN 28 H (9-20) mg/dL Glucose 127 H 152 H (74-99) mg/dL Calcium 8.5 L (8.7-10.3) mg/dL AST 46 H (14-35) U/L ALT 121 H (10-49) U/L Total Protein 5.4 L (6.2-8.2) g/dL Albumin 3.4 L (3.8-4.9) g/dL Microbiology - Last 24 Hours (Table) 08/28/23 18:00 Blood Culture - Preliminary Blood 08/28/23 17:45 Blood Culture - Preliminary Blood Assessment and Plan Plan: Assessment: 1. Acute kidney injury secondary to vasomotor nephropathy secondary to hypotension and hypovolemia. Creatinine 1.96 on admission and down to 1.0 today. Baseline creatinine 0.7-0.8. No hydronephrosis noted on kidney ultrasound. 2. Hypernatremia from lack of oral water intake. Improving with D5W. 3. Hypotension secondary to hypovolemia and lisinopril. Improved. 4. Hypokalemia from poor intake. Replaced. Better. Plan: Increase rate of D5W to 130 cc an hour. Repeat sodium level this evening. Avoid nephrotoxins. Encouraged oral intake, including free water. Replace potassium. Preserved EF noted on echo.
--- NOTE | 2023-08-31 12:25 | P.PN ---
Subjective Progress Note Date: 08/31/23 patient is a 67-year-old gentleman with past medical history significant for hypertension was brought to the ER following a syncopal episode. Patient history of chronic nausea and vomiting and has been multiple times admitted for similar complaints. Patient apparently was on his way to the restroom when he passed out. There was no complaint of any jerking movement on extremity. There was no complaint of bowel or urine incontinence. There was no complaint of fever or chills. EMS was called and patient was brought to the ER. In the ER patient was responsive, answering was appropriately and moving all extremities. Initial lab work done in the ER showed WBC 16.8, hemoglobin 15.4, platelet count 341, sodium 151, potassium 3.7, BUN 64, creatinine 1.96 calcium 8.1, magnesium 2.8, AST 189, ALT 190, troponin 0.148 EKG done in the ER showed heart rate of 95, ST depression seen in leads V2 and V3, T wave inversions seen in leads II, 3, aVF, V3, V4, V5 V6 Chest x-ray done in the ER no acute process CT head done showed no acute intracranial process CT cervical spine done showed no acute trauma, mild degenerative changes Patient admitted to internal medicine service 08/29. Patient seen and examined. States he feels better. 2D echo done showed normal left ventricle size and systolic function, no wall motion abnormalities.ultrasound of carotids done showed less than 50% stenosis of bilateral carotid bifurcations. Still having nausea and vomiting 08/30. Patient seen and examined.Blood work done this morning showed WBC 13.85, hemoglobin 13.1, platelet count 231, sodium 150, potassium 3.1, BUN 17.9, creatinine 1, AST 46, ALT 121. Cardiology has signed off. Patient continues to have nausea which is chronic, could be related to his history of marijuana abuse REVIEW OF SYSTEMS: CONSTITUTIONAL: No fever, no malaise,. CARDIOVASCULAR: No chest pain, no palpitations, no syncope. PULMONARY: No shortness of breath, no cough, GASTROINTESTINAL: No diarrhea, no abdominal pain. NEUROLOGICAL: No headaches, no weakness, PHYSICAL EXAMINATION: GENERAL: The patient is alert and oriented x3, not in any acute distress. Well developed, well nourished. HEENT: Pupils are round and equally reacting to light. EOMI. No scleral icterus. No conjunctival pallor. Normocephalic, atraumatic. No pharyngeal erythema. No thyromegaly. CARDIOVASCULAR: S1 and S2 present. No murmurs, rubs, or gallops. PULMONARY: Chest is clear to auscultation, no wheezing or crackles. ABDOMEN: Soft, nontender, nondistended, normoactive bowel sounds. No palpable organomegaly. MUSCULOSKELETAL: No joint swelling or deformity. EXTREMITIES: No cyanosis, clubbing, or pedal edema. NEUROLOGICAL: Gross neurological examination did not reveal any focal deficits. SKIN: No rashes. Assessment and plan Elevated troponin Syncopal episode GERONIMO Hypernatremia Lactic acidosis Elevated LFTs Intractable nausea vomiting Moderate hiatal hernia with reflux esophagitis History of paraesophageal hernia repair and hiatal hernia repair History of CVA/TIA Hypertension Hyperlipidemia Rheumatoid arthritis Coronary artery disease with prior history of cardiac catheterization. Anxiety/depression Prior history of smoking Marijuana use Monitor vital signs Monitor CBC Monitor CMP Continue telemetry monitoring Trend troponins 2D echo done showed normal left ventricle size and systolic function, no wall motion abnormalities. ultrasound of carotids done showed less than 50% stenosis of bilateral carotid bifurcations Continue IV fluids D5W Continue Lopressor Continue BuSpar and Zoloft Nephrology following Cardiology signed off Labs and medication were reviewed.. Continue same treatment. Continue with symptomatic treatment. Resume home medication. Monitor labs and vitals. DVT and GI prophylaxis. Further recommendations as per clinical course of the patient Dictation was produced using [employer] dictation software. please excuse any grammatical, word or spelling errors. Objective - Vital Signs Vital signs: Vital Signs Temp 98.6 F 08/31/23 07:10 Pulse 87 08/31/23 07:10 Resp 17 08/31/23 07:10 BP 137/79 08/31/23 07:10 Pulse Ox 96 08/31/23 09:27 FiO2 Intake & Output 08/30/23 08/31/23 08/31/23 18:59 06:59 18:59 Intake Total 458 Output Total 500 Balance 458 -500 Weight 62.5 kg Intake: Intake, IV Titration 100 Amount Dextrose 5% in Water 1, 100 000 ml @ 100 mls/hr IV . Q10H [facility] Rx#:[id number] Oral 358 Output: Urine 500 Uretheral (Perez) 500 Other: Voiding Method Indwelling Catheter Indwelling Catheter # Bowel Movements 1 - Labs CBC & Chem 7: 08/31/23 05:22 08/31/23 05:22 Labs: Abnormal Lab Results - Last 24 Hours (Table) 08/30/23 08/30/23 08/31/23 Range/Units 09:12 16:45 05:22 WBC 13.85 H (4.50-10.00) X 10*3/uL RBC 4.29 L (4.40-5.60) X 10*6/uL Immature Gran # 0.23 H (0.00-0.04) X 10*3/uL Neutrophils # 11.00 H (1.80-7.70) X 10*3/uL Sodium 154 H 149 H (137-145) mmol/L Potassium 3.3 L (3.5-5.1) mmol/L Chloride 115 H 114 H (98-107) mmol/L Carbon Dioxide 31 H (22-30) mmol/L Anion Gap (4.00-12.00) mmol/L BUN 35 H 28 H (9-20) mg/dL Glucose 143 H 127 H (74-99) mg/dL Calcium (8.7-10.3) mg/dL Magnesium 2.8 H (1.6-2.3) mg/dL AST (14-35) U/L ALT (10-49) U/L Total Protein (6.2-8.2) g/dL Albumin (3.8-4.9) g/dL 08/31/23 Range/Units 05:22 WBC (4.50-10.00) X 10*3/uL RBC (4.40-5.60) X 10*6/uL Immature Gran # (0.00-0.04) X 10*3/uL Neutrophils # (1.80-7.70) X 10*3/uL Sodium 150 H (137-145) mmol/L Potassium (3.5-5.1) mmol/L Chloride 111 H (98-107) mmol/L Carbon Dioxide (22-30) mmol/L Anion Gap 12.20 H (4.00-12.00) mmol/L BUN (9-20) mg/dL Glucose 152 H (74-99) mg/dL Calcium 8.5 L (8.7-10.3) mg/dL Magnesium (1.6-2.3) mg/dL AST 46 H (14-35) U/L ALT 121 H (10-49) U/L Total Protein 5.4 L (6.2-8.2) g/dL Albumin 3.4 L (3.8-4.9) g/dL Microbiology - Last 24 Hours (Table) 08/28/23 18:00 Blood Culture - Preliminary Blood 08/28/23 17:45 Blood Culture - Preliminary Blood
[2023-08-31] MEDS: POTASSIUM CHLORIDE 10 MEQ in WATER FOR INJECTION 1 100ML.BAG IVPB SCH (14:29)
[2023-08-31] MEDS: SODIUM CHLORIDE 0.45% 1,000 ML IV SCH (17:03)
[2023-09-01] MEDS: ALBUTEROL NEBULIZED 2.5 MG/3 ML INHALATION PRN (02:15)
[2023-09-01 11:53] LABS: BUN/Creat Ratio 11.44 Ratio (12.00-20.00); Blood Urea Nitrogen 10.3 mg/dL (9.0-27.0); Calcium 8.5 mg/dL (8.7-10.3); Chloride 106 mmol/L (96-109); Glucose 125 mg/dL (70-110); Potassium 3.3 mmol/L (3.5-5.5); Sodium 146 mmol/L (135-145)
[2023-09-01] MEDS: METOCLOPRAMIDE 5 MG/ML 2 ML VIAL IVP SCH ×3 (12:26→20:55)
--- NOTE | 2023-09-01 12:32 | P.PN ---
Subjective Patient is seen in follow-up for acute kidney injury and hypernatremia. Renal function stable. Sodium level 146 this morning. Currently on half-normal saline. Tolerating oral intake but still continues to have vomiting. Vital signs are stable. General: No acute distress. HEENT: Head exam is unremarkable. LUNGS: No audible rhonchi or wheezes. HEART: Rate and Rhythm are regular. ABDOMEN: Nontender. EXTREMITITES: No edema. Objective - Vital Signs Vital signs: Vital Signs Temp 98.6 F 09/01/23 07:19 Pulse 94 09/01/23 10:02 Resp 16 09/01/23 07:19 BP 129/91 09/01/23 07:19 Pulse Ox 97 09/01/23 07:19 FiO2 Intake & Output 08/31/23 09/01/23 09/01/23 18:59 06:59 18:59 Output Total 200 1650 Balance -200 -1650 Output: Urine 1650 Uretheral (Perez) 1650 Stool 200 Other: Voiding Method Indwelling Catheter Indwelling Catheter Indwelling Catheter # Voids 1 # Bowel Movements 1 - Labs CBC & Chem 7: 08/31/23 05:22 09/01/23 07:30 Labs: Abnormal Lab Results - Last 24 Hours (Table) 09/01/23 Range/Units 07:30 Sodium 146 H (135-145) mmol/L Potassium 3.3 L (3.5-5.5) mmol/L Anion Gap 14.00 H (4.00-12.00) mmol/L BUN/Creatinine Ratio 11.44 L (12.00-20.00) Ratio Glucose 125 H (70-110) mg/dL Calcium 8.5 L (8.7-10.3) mg/dL Microbiology - Last 24 Hours (Table) 08/28/23 18:00 Blood Culture - Preliminary Blood 08/28/23 17:45 Blood Culture - Preliminary Blood Assessment and Plan Plan: Assessment: 1. Acute kidney injury secondary to vasomotor nephropathy secondary to hypotension and hypovolemia. Creatinine 1.96 on admission and down to 0.9 today. No hydronephrosis noted on kidney ultrasound. 2. Hypernatremia from lack of oral water intake. Improving with D5W. 3. Hypotension secondary to hypovolemia and lisinopril. Improved. 4. Hypokalemia from poor intake. Plan: Change fluids back to D5W to be run at 75 cc an hour. Replace potassium. Avoid nephrotoxins. Encouraged oral intake, including free water. Preserved EF noted on echo.
--- NOTE | 2023-09-01 12:57 | P.PN ---
Subjective Progress Note Date: 09/01/23 patient is a 67-year-old gentleman with past medical history significant for hypertension was brought to the ER following a syncopal episode. Patient history of chronic nausea and vomiting and has been multiple times admitted for similar complaints. Patient apparently was on his way to the restroom when he passed out. There was no complaint of any jerking movement on extremity. There was no complaint of bowel or urine incontinence. There was no complaint of fever or chills. EMS was called and patient was brought to the ER. In the ER patient was responsive, answering was appropriately and moving all extremities. Initial lab work done in the ER showed WBC 16.8, hemoglobin 15.4, platelet count 341, sodium 151, potassium 3.7, BUN 64, creatinine 1.96 calcium 8.1, magnesium 2.8, AST 189, ALT 190, troponin 0.148 EKG done in the ER showed heart rate of 95, ST depression seen in leads V2 and V3, T wave inversions seen in leads II, 3, aVF, V3, V4, V5 V6 Chest x-ray done in the ER no acute process CT head done showed no acute intracranial process CT cervical spine done showed no acute trauma, mild degenerative changes Patient admitted to internal medicine service 08/29. Patient seen and examined. States he feels better. 2D echo done showed normal left ventricle size and systolic function, no wall motion abnormalities.ultrasound of carotids done showed less than 50% stenosis of bilateral carotid bifurcations. Still having nausea and vomiting 08/30. Patient seen and examined.Blood work done this morning showed WBC 13.85, hemoglobin 13.1, platelet count 231, sodium 150, potassium 3.1, BUN 17.9, creatinine 1, AST 46, ALT 121. Cardiology has signed off. Patient continues to have nausea which is chronic, could be related to his history of marijuana abuse 08/31. Patient seen and examined. States still has nausea but little better compared to yesterday. Blood work done this morning showed sodium 146, potassium 3.3, BUN 10.3, creatinine 0.9 REVIEW OF SYSTEMS: CONSTITUTIONAL: No fever, no malaise,. CARDIOVASCULAR: No chest pain, no palpitations, no syncope. PULMONARY: No shortness of breath, no cough, GASTROINTESTINAL: No diarrhea, no abdominal pain. NEUROLOGICAL: No headaches, no weakness, PHYSICAL EXAMINATION: GENERAL: The patient is alert and oriented x3, not in any acute distress. Well developed, well nourished. HEENT: Pupils are round and equally reacting to light. EOMI. No scleral icterus. No conjunctival pallor. Normocephalic, atraumatic. No pharyngeal erythema. No thyromegaly. CARDIOVASCULAR: S1 and S2 present. No murmurs, rubs, or gallops. PULMONARY: Chest is clear to auscultation, no wheezing or crackles. ABDOMEN: Soft, nontender, nondistended, normoactive bowel sounds. No palpable organomegaly. MUSCULOSKELETAL: No joint swelling or deformity. EXTREMITIES: No cyanosis, clubbing, or pedal edema. NEUROLOGICAL: Gross neurological examination did not reveal any focal deficits. SKIN: No rashes. Assessment and plan Elevated troponin Syncopal episode GERONIMO Hypernatremia Lactic acidosis Elevated LFTs Intractable nausea vomiting Moderate hiatal hernia with reflux esophagitis History of paraesophageal hernia repair and hiatal hernia repair History of CVA/TIA Hypertension Hyperlipidemia Rheumatoid arthritis Coronary artery disease with prior history of cardiac catheterization. Anxiety/depression Prior history of smoking Marijuana use Monitor vital signs Monitor CBC Monitor CMP Continue telemetry monitoring Trend troponins 2D echo done showed normal left ventricle size and systolic function, no wall motion abnormalities. ultrasound of carotids done showed less than 50% stenosis of bilateral carotid bifurcations Continue IV fluids D5W Added scheduled Reglan Continue Lopressor Continue BuSpar and Zoloft Nephrology following Cardiology signed off Labs and medication were reviewed.. Continue same treatment. Continue with symptomatic treatment. Resume home medication. Monitor labs and vitals. DVT and GI prophylaxis. Further recommendations as per clinical course of the patient Dictation was produced using [employer] dictation software. please excuse any grammatical, word or spelling errors. Objective - Vital Signs Vital signs: Vital Signs Temp 98.6 F 09/01/23 07:19 Pulse 94 09/01/23 10:02 Resp 16 09/01/23 07:19 BP 129/91 09/01/23 07:19 Pulse Ox 97 09/01/23 07:19 FiO2 Intake & Output 08/31/23 09/01/23 09/01/23 18:59 06:59 18:59 Output Total 200 1650 Balance -200 -1650 Output: Urine 1650 Uretheral (Perez) 1650 Stool 200 Other: Voiding Method Indwelling Catheter Indwelling Catheter Indwelling Catheter # Voids 1 # Bowel Movements 1 - Labs CBC & Chem 7: 08/31/23 05:22 09/01/23 07:30 Labs: Abnormal Lab Results - Last 24 Hours (Table) 09/01/23 Range/Units 07:30 Sodium 146 H (135-145) mmol/L Potassium 3.3 L (3.5-5.5) mmol/L Anion Gap 14.00 H (4.00-12.00) mmol/L BUN/Creatinine Ratio 11.44 L (12.00-20.00) Ratio Glucose 125 H (70-110) mg/dL Calcium 8.5 L (8.7-10.3) mg/dL Microbiology - Last 24 Hours (Table) 08/28/23 18:00 Blood Culture - Preliminary Blood 08/28/23 17:45 Blood Culture - Preliminary Blood
[2023-09-01] MEDS: POTASSIUM CHLORIDE ER 20 MEQ TAB.ER PO STA (13:58)
[2023-09-01] MEDS: DEXTROSE 5% IN WATER 1,000 ML IV SCH (13:59)
[2023-09-02 09:33] LABS: African American GFR (CKD) >90 (>60 ml/min/1.73 sqM); Anion Gap 8 mmol/L; Blood Urea Nitrogen 9 mg/dL (9-20); Calcium 8.4 mg/dL (8.4-10.2); Carbon Dioxide 25 mmol/L (22-30); Chloride 103 mmol/L (98-107); Glucose 150 mg/dL (74-99); Magnesium 1.9 mg/dL (1.6-2.3); Non-African American GFR(CKD) >90 (>60 ml/min/1.73 sqM); Potassium 3.2 mmol/L (3.5-5.1); Sodium 136 mmol/L (137-145)
--- NOTE | 2023-09-02 12:20 | P.DS ---
Providers Date of admission: 08/28/23 20:58 Expected date of discharge: 09/02/23 Attending physician: Magda Bowie Consults: 08/28/23 20:58 Consult Physician Routine Consulting Provider: Tien Salazar Consult Reason/Comments: trop elevation Do you want consulting provider notified?: Yes 08/29/23 09:34 Consult Physician Routine Consulting Provider: Trudy Duke Consult Reason/Comments: GERONIMO Do you want consulting provider notified?: Yes Primary care physician: Misael Hopkins Hospital Course: Discharge diagnoses; Elevated troponin Syncopal episode GERONIMO Hypernatremia Lactic acidosis Elevated LFTs Intractable nausea vomiting Moderate hiatal hernia with reflux esophagitis History of paraesophageal hernia repair and hiatal hernia repair History of CVA/TIA Hypertension Hyperlipidemia Rheumatoid arthritis Coronary artery disease with prior history of cardiac catheterization. Anxiety/depression Prior history of smoking Marijuana use Hospital course; patient is a 67-year-old gentleman with past medical history significant for hypertension was brought to the ER following a syncopal episode. Patient history of chronic nausea and vomiting and has been multiple times admitted for similar complaints. Patient apparently was on his way to the restroom when he passed out. There was no complaint of any jerking movement on extremity. There was no complaint of bowel or urine incontinence. There was no complaint of fever or chills. EMS was called and patient was brought to the ER. In the ER patient was responsive, answering was appropriately and moving all extremities. Initial lab work done in the ER showed WBC 16.8, hemoglobin 15.4, platelet count 341, sodium 151, potassium 3.7, BUN 64, creatinine 1.96 calcium 8.1, magnesium 2.8, AST 189, ALT 190, troponin 0.148 EKG done in the ER showed heart rate of 95, ST depression seen in leads V2 and V3, T wave inversions seen in leads II, 3, aVF, V3, V4, V5 V6 Chest x-ray done in the ER no acute process CT head done showed no acute intracranial process CT cervical spine done showed no acute trauma, mild degenerative changes Patient admitted to internal medicine service 08/29. Patient seen and examined. States he feels better. 2D echo done showed normal left ventricle size and systolic function, no wall motion abnormalities.ultrasound of carotids done showed less than 50% stenosis of bilateral carotid bifurcations. Still having nausea and vomiting 08/30. Patient seen and examined.Blood work done this morning showed WBC 13.85, hemoglobin 13.1, platelet count 231, sodium 150, potassium 3.1, BUN 17.9, creatinine 1, AST 46, ALT 121. Cardiology has signed off. Patient continues to have nausea which is chronic, could be related to his history of marijuana abuse 08/31. Patient seen and examined. States still has nausea but little better compared to yesterday. Blood work done this morning showed sodium 146, potassium 3.3, BUN 10.3, creatinine 0.9 09/01. Patient seen and examined. Patient nausea has improved by addition of Reglan. Patient's sodium level is also improved to normal. Being discharged in stable condition to follow-up outpatient with PCP. PHYSICAL EXAMINATION: GENERAL: The patient is alert and oriented x3, not in any acute distress. Well developed, well nourished. HEENT: Pupils are round and equally reacting to light. EOMI. No scleral icterus. No conjunctival pallor. Normocephalic, atraumatic. No pharyngeal erythema. No thyromegaly. CARDIOVASCULAR: S1 and S2 present. No murmurs, rubs, or gallops. PULMONARY: Chest is clear to auscultation, no wheezing or crackles. ABDOMEN: Soft, nontender, nondistended, normoactive bowel sounds. No palpable organomegaly. MUSCULOSKELETAL: No joint swelling or deformity. EXTREMITIES: No cyanosis, clubbing, or pedal edema. NEUROLOGICAL: Gross neurological examination did not reveal any focal deficits. SKIN: No rashes. Dictation was produced using [employer] dictation software. please excuse any g rammatical, word or spelling errors. Patient Condition at Discharge: Stable Plan - Discharge Summary New Discharge Prescriptions: New Metoclopramide HCl [Reglan] 5 mg PO TID #21 tablet Continue Metoprolol Tartrate [Lopressor] 12.5 mg PO BID busPIRone HCL [Buspar] 7.5 mg PO BID lisinopriL [Zestril] 5 mg PO DAILY #30 tab Sertraline [Zoloft] 25 mg PO DAILY Nitroglycerin Sl Tabs [Nitrostat] 0.4 mg SUBLINGUAL Q5M PRN PRN Reason: Chest Pain Discharge Medication List Metoprolol Tartrate [Lopressor] 12.5 mg PO BID 08/20/18 [History] lisinopriL [Zestril] 5 mg PO DAILY #30 tab 11/06/22 [Rx] Nitroglycerin Sl Tabs [Nitrostat] 0.4 mg SUBLINGUAL Q5M PRN 08/08/23 [History] Sertraline [Zoloft] 25 mg PO DAILY 08/08/23 [History] busPIRone HCL [Buspar] 7.5 mg PO BID 08/08/23 [History] Metoclopramide HCl [Reglan] 5 mg PO TID #21 tablet 09/02/23 [Rx] Follow up Appointment(s)/Referral(s): Misael Hopkins MD [Primary Care Provider] - 1-2 days [facility] [NON-STAFF] - Discharge Disposition: HOME SELF-CARE
--- NOTE | 2023-09-02 12:56 | P.PN ---
Subjective patient is seen for follow-up for hyponatremia and acute kidney injury. no significant complaints today. Creatinine at 0.6 with sodium of 136 today. Potassium was low at 3.2. Objective - Vital Signs Vital signs: Vital Signs Temp 98.1 F 09/02/23 07:50 Pulse 93 09/02/23 07:50 Resp 15 09/02/23 07:50 BP 120/83 09/02/23 07:50 Pulse Ox 96 09/02/23 07:50 FiO2 Intake & Output 09/01/23 09/02/23 09/02/23 18:59 06:59 18:59 Output Total 1400 1000 Balance -1400 -1000 Output: Urine 1400 1000 Other: Voiding Method Indwelling Catheter Indwelling Catheter - Exam patient is awake, comfortable, no acute distress. Examination of the heart S1 and S2 Examination the lungs bilateral breath sounds are heard Abdomen is soft nontender Examination of lower extremities shows no significant edema - Labs CBC & Chem 7: 08/31/23 05:22 09/02/23 08:44 Labs: Abnormal Lab Results - Last 24 Hours (Table) 09/02/23 Range/Units 08:44 Sodium 136 L (137-145) mmol/L Potassium 3.2 L (3.5-5.1) mmol/L Glucose 150 H (74-99) mg/dL Assessment and Plan Assessment: 1. Acute kidney injury secondary to vasomotor nephropathy secondary to hypotension and hypovolemia. Creatinine 1.96 on admission and down to 0.6 today. No hydronephrosis noted on kidney ultrasound. 2. Hypernatremia from lack of oral water intake. Improving with D5W. 3. Hypotension secondary to hypovolemia and lisinopril. Improved. 4. Hypokalemia from poor intake. Plan: DC D5W Replace potassium
[2023-09-02 13:44] VITALS: BP 157/103; PULSE 75; RESP 16; TEMP 98
[2023-09-02] MEDS: POTASSIUM CHLORIDE ER 20 MEQ TAB.ER PO STA ×2 (14:37→14:44)
--- NOTE | 2023-09-05 06:39 | CDI ---
Documentation Clarification Form Date: 09/05/23 From: Estela Muñoz Admit Date: 08/28/2023 08:58:00 PM Patient Name: Finn Alex Visit Number: [id number] Discharge Date: 09/02/2023 05:11:00 PM ATTENTION: The Clinical Documentation Specialists (CDI) and [facility] Coding Staff appreciate your assistance in clarifying documentation. Please respond to the clarification below the line at the bottom and electronically sign. The CDI & [facility] Coding staff will review the response and follow-up if needed. Please note: Queries are made part of the Legal Health Record. If you have any questions, please contact the author of this message via ITS. Dr. Matias Jacskon, Your patient has troponin level(s) of: 0.148 (08/27), 0.133 (08/27), 0.108 (). Please clarify if there is an additional diagnosis and/or clinical significance related to this value. Patient history/risk factors: CAD, HTN, HLD, RA, ASTHMA Clinical indicators: Per consult Elevated troponinsof unclear etiology possibly due toacute kidney injury. Treatment: Cardiac consult: resume home cardiac meds, 2-D echo and Doppler study Is there an additional diagnosis and/or clinical significance related to the above lab result / information: [ ] NSTEMI type 1 [ ] STEMI type 1 [ x ] Type 2 MT due to (specify cause kidney injury____) [ ] Non-ischemic with acute myocardial injury [ ] No additional diagnosis/Not clinically significant [ ] Other, please specify [ ] Unable to determine Reference: [employer] [place] Definition of Myocardial Infraction Elevated Cardiac Troponin >99th percentile with Troponin rise and/or fall With Acute ischemia Acute Myocardial Infarction Atherosclerosis thrombosis Type I MT Oxygen supply and demand imbalance Type II MT (Please indicate etiology) Without acute ischemia Acute Myocardial Injury MTDD
== END 2023-09-02 17:11 | disposition home or self-care (01) | DRG 682 ==
LOC: EC 17:25 → 3SCARD 20:58 → 4SSUR 08-30 15:45
PROVIDERS: ADMIT Hospitalist; ATTEND Hospitalist
DX: N17.0 Acute kidney failure with tubular necrosis (principal); I21.A1 Myocardial infarction type 2; R57.1 Hypovolemic shock; E87.0 Hyperosmolality and hypernatremia; E87.20 Acidosis, unspecified; I95.89 Other hypotension; M06.9 Rheumatoid arthritis, unspecified; I10 Essential (primary) hypertension; F32.A Depression, unspecified; I34.0 Nonrheumatic mitral (valve) insufficiency; I65.23 Occlusion and stenosis of bilateral carotid arteries; E87.6 Hypokalemia; E86.1 Hypovolemia; E78.5 Hyperlipidemia, unspecified; E86.0 Dehydration; K21.00 Gastro-esophageal reflux disease with esophagitis, without bleeding; K44.9 Diaphragmatic hernia without obstruction or gangrene; J45.909 Unspecified asthma, uncomplicated; I83.90 Asymptomatic varicose veins of unspecified lower extremity; I25.10 Atherosclerotic heart disease of native coronary artery without angina pectoris; F12.10 Cannabis abuse, uncomplicated; F41.9 Anxiety disorder, unspecified; R79.89 Other specified abnormal findings of blood chemistry; Z79.899 Other long term (current) drug therapy; Z87.891 Personal history of nicotine dependence; Z86.73 Personal history of transient ischemic attack (TIA), and cerebral infarction without residual deficits
CPT/HCPCS: 36415; 51702; 70450; 71045; 72125; 76770; 80048; 80053; 80306; 81001; 82803; 83605; 83735; 84295; 84484; 85025; 85610; 85730; 87040; 93005; 93306; 93880; 94640; 94760; 96361; 96365; 96366; 96367; 96375; 96376; 99291

== ENCOUNTER 2023-09-06 14:30 | Observation (INO) | payer MEDICARE, OTHER ==
--- NOTE | 2023-09-06 14:44 | ED ---
General Adult HPI - General Stated complaint: Syncope Time Seen by Provider: 09/06/23 14:30 Source: patient, RN notes reviewed, old records reviewed - History of Present Illness Initial comments: This is a 67-year-old male who presents to the emergency department stating that he has been feeling weak the last few days and when he stands up he becomes lightheaded. When EMS arrived they did orthostatics on the patient and when he stood him up he almost passed out. Patient denies any fever chills or cough. Patient Nu[place] headache patient denies numbness or focal weakness. Patient has any chest pain palpitation difficulty breathing shortness of breath. Patient has any abdominal pain. Patient states he has been vomiting quite a bit lately but he has been eating and drinking normally lately. Patient denies any recent injury or trauma. - Related Data Home Medications Medication Instructions Recorded Confirmed Metoprolol Tartrate [Lopressor] 12.5 mg PO BID 08/20/18 09/06/23 Nitroglycerin Sl Tabs [Nitrostat] 0.4 mg SUBLINGUAL Q5M PRN 08/08/23 09/06/23 Sertraline [Zoloft] 25 mg PO DAILY 08/08/23 09/06/23 busPIRone HCL [Buspar] 7.5 mg PO BID 08/08/23 09/06/23 Previous Rx's Medication Instructions Recorded lisinopriL [Zestril] 5 mg PO DAILY #30 tab 11/06/22 Metoclopramide HCl [Reglan] 5 mg PO TID #21 tablet 09/02/23 Allergies Allergy/AdvReac Type Severity Reaction Status Date / Time No Known Allergies Allergy Verified 09/06/23 15:23 Review of Systems ROS Statement: Those systems with pertinent positive or pertinent negative responses have been documented in the HPI. ROS Other: All systems not noted in ROS Statement are negative. Past Medical History Past Medical History: Asthma, Coronary Artery Disease (CAD), Chest Pain / Angina, CVA/TIA, GERD/Reflux, Hyperlipidemia, Hypertension, Pneumonia, Rheumatoid Arthritis (RA) Additional Past Medical History / Comment(s): MIGRAINES, HEART MURMUR, hx HIATAL HERNIA, ANEMIA, one dr told him he had a stroke at one time-no effects, varicose veins, history of incarcerated per esophageal hernia, status post robotic-assisted paraesophageal hernia repair and Frederick fundoplication on 04/12/2022. History of Any Multi-Drug Resistant Organisms: None Reported Past Surgical History: Heart Catheterization, Hernia Repair, Orthopedic Surgery Additional Past Surgical History / Comment(s): Lt achilles tendon,RT SHOULDER surgery, RT ACHILLES TENDON reattached, HEMORRHOIDECTOMY, 13 FATTY TUMORS removed. left hand index finger surgery after injury, EGD WITH DILATION, paraesophageal hernia repair with Frederick fundoplication on 04/12/2022. Past Anesthesia/Blood Transfusion Reactions: No Reported Reaction Additional Past Anesthesia/Blood Transfusion Reaction / Comment(s): no hx blood transfusion Past Psychological History: Anxiety, Depression Smoking Status: Former smoker Past Alcohol Use History: None Reported Additional Past Alcohol Use History / Comment(s): QUIT SMOKING 1999, APPROX SMOKED 20 YRS, 1-2PPD. pt states hx alcoholism Past Drug Use History: Marijuana Additional Drug Use History / Comment(s): CURRENTLY USES MARIJUANA - Past Family History Mother Family Medical History: Cancer Father Additional Family Medical History / Comment(s): thinks aneurysm General Exam - General Exam Comments Initial Comments: GENERAL: Patient is well-developed and well-nourished. Patient is nontoxic and well- hydrated and is in mild distress. ENT: Neck is soft and supple. No significant lymphadenopathy is noted. Oropharynx is clear. Moist mucous membranes. Neck has full range of motion without eliciting any pain. EYES: The sclera were anicteric and conjunctiva were pink and moist. Extraocular movements were intact and pupils were equal round and reactive to light. Eyelids were unremarkable. PULMONARY: Unlabored respirations. Good breath sounds bilaterally. No audible rales rhonchi or wheezing was noted. CARDIOVASCULAR: There is a regular rate and rhythm without any murmurs gallops or rubs. ABDOMEN: Soft and nontender with normal bowel sounds. SKIN: Skin is clear with no lesions or rashes and otherwise unremarkable. NEUROLOGIC: Patient is alert and oriented x3. Cranial nerves II through XII are grossly intact. Motor and sensory are also intact. Normal speech, volume and content. Symmetrical smile. MUSCULOSKELETAL: Normal extremities with adequate strength and full range of motion. No lower extremity swelling or edema. No calf tenderness. LYMPHATICS: No significant lymphadenopathy is noted PSYCHIATRIC: Normal psychiatric evaluation. Course Vital Signs 09/06/23 09/06/23 09/06/23 14:31 14:59 15:27 Temperature 97.1 F L Pulse Rate 82 74 79 Respiratory 18 18 18 Rate Blood Pressure 72/59 73/58 95/70 O2 Sat by Pulse 98 96 Oximetry 09/06/23 09/06/23 16:26 17:19 Temperature Pulse Rate 66 78 Respiratory 18 18 Rate Blood Pressure 102/74 118/75 O2 Sat by Pulse 100 97 Oximetry Medical Decision Making - Medical Decision Making EKG is interpreted by myself. EKG shows a sinus rhythm at 60 bpm KS interval is 191 QRS is 83 QT interval 438 QTc is 456. Patient's EKG shows diffuse T wave inversion in leads I to III aVF and precordial leads V3 through V6 which are all seen on a previous EKG. Was pt. sent in by a medical professional or institution ([facility], [facility], urgent care, hospital, or fci...) When possible be specific @ -No Did you speak to anyone other than the patient for history (EMS, parent, family, police, friend...)? What history was obtained from this source @ -No Did you review nursing and triage notes (agree or disagree)? Why? @ -I reviewed and agree with nursing and triage notes Were old charts reviewed (outside hosp., previous admission, EMS record, old EKG, old radiological studies, urgent care reports/EKG's, fci records)? Report findings @ -I reviewed patient's recent admission charts recent labs they were pretty consistent with today's labs. I also compared patient's EKG with the old EKG no new changes were seen Differential Diagnosis (chest pain, altered mental status, abdominal pain women, abdominal pain men, vaginal bleeding, weakness, fever, dyspnea, syncope, headache, dizziness, GI bleed, back pain, seizure, CVA, palpatations, mental health, musculoskeletal)? @ -Not applicable EKG interpreted by me (3pts min.). @ -As above X-rays interpreted by me (1pt min.). @ -Chest x-ray showed no acute abnormality CT interpreted by me (1pt min.). @ -None done U/S interpreted by me (1pt. min.). @ -None done What testing was considered but not performed or refused? (CT, X-rays, U/S, labs)? Why? @ -None What meds were considered but not given or refused? Why? @ -None Did you discuss the management of the patient with other professionals (professionals i.e. , PA, [facility], lab, RT, psych nurse, social worker clinical, dairy farmworker, teacher, chief scientific officer, shelter case manager)? Give summary @ -[facility] Was smoking cessation discussed for >3mins.? @ -No Was critical care preformed (if so, how long)? @ -No Were there social determinants of health that impacted care today? How? (Homelessness, low income, unemployed, alcoholism, drug addiction, transportation, low edu. Level, literacy, decrease access to med. care, alf, rehab)? @ -No Was there de-escalation of care discussed even if they declined (Discuss DNR or withdrawal of care, Hospice)? DNR status @ -No What co-morbidities impacted this encounter? (DM, HTN, Smoking, COPD, CAD, Cancer, CVA, ARF, Chemo, Hep., AIDS, mental health diagnosis, sleep apnea, morbid obesity)? @ -None Was patient admitted / discharged? Hospital course, mention meds given and route, prescriptions, significant lab abnormalities, going to OR and other pert inent info. @ -Patient was given a liter and half of normal saline was feeling considerably better his blood pressure responded nicely. Patient had an elevated lactate elevated creatinine and elevated troponin all consistent with his last visit a few days ago. Patient appears to be dehydrated and [facility] Undiagnosed new problem with uncertain prognosis? @ -No Drug Therapy requiring intensive monitoring for toxicity (Heparin, Nitro, Insulin, Cardizem)? @ -No Were any procedures done? @ -No Diagnosis/symptom? @ -Renal insufficiency Acute, or Chronic, or Acute on Chronic? @ -Acute Uncomplicated (without systemic symptoms) or Complicated (systemic symptoms)? @ -Complicated Side effects of treatment? @ -No Exacerbation, Progression, or Severe Exacerbation? @ -No Poses a threat to life or bodily function? How? (Chest pain, USA, NE, pneumonia, PE, COPD, DKA, ARF, appy, cholecystitis, CVA, Diverticulitis, Homicidal, Suicidal, threat to staff... and all critical care pts) @ -Yes this can lead to electrolyte abnormalities and arrhythmias and possible Diagnosis/symptom? @ -Dehydration Acute, or Chronic, or Acute on Chronic? @ -Acute Uncomplicated (without systemic symptoms) or Complicated (systemic symptoms)? @ -Complicated Side effects of treatment? @ -None Exacerbation, Progression, or Severe Exacerbation] @ -No Poses a threat to life or bodily function? @ -No Diagnosis/symptom? @ -Lactic acidosis Acute, or Chronic, or Acute on Chronic? @ -Acute Uncomplicated (without systemic symptoms) or Complicated (systemic symptoms)? @ -Complicated Side effects of treatment? @ -None Exacerbation, Progression, or Severe Exacerbation] @ -No Poses a threat to life or bodily function? @ -No Diagnosis/symptom? @ -Hypotension Acute, or Chronic, or Acute on Chronic? @ -Acute Uncomplicated (without systemic symptoms) or Complicated (systemic symptoms)? @ -Complicated Side effects of treatment? @ -None Exacerbation, Progression, or Severe Exacerbation] @ -No Poses a threat to life or bodily function? @ -No Diagnosis/symptom? @ -Elevated troponin Acute, or Chronic, or Acute on Chronic? @ -Acute Uncomplicated (without systemic symptoms) or Complicated (systemic symptoms)? @ -Complicated Side effects of treatment? @ -None Exacerbation, Progression, or Severe Exacerbation] @ -No Poses a threat to life or bodily function? @ -Yes this could lead to an NE and possible endorgan dysfunction - Lab Data Result diagrams: 09/06/23 14:53 09/06/23 14:53 Lab Results 09/06/23 09/06/23 09/06/23 Range/Units 14:53 14:53 14:53 WBC 12.6 H (3.8-10.6) k/uL RBC 4.94 (4.30-5.90) m/uL Hgb 15.1 (13.0-17.5) gm/dL Hct 45.3 (39.0-53.0) % MCV 91.8 D (80.0-100.0) fL MCH 30.5 (25.0-35.0) pg MCHC 33.3 (31.0-37.0) g/dL RDW 14.6 (11.5-15.5) % Plt Count 315 (150-450) k/uL MPV 10.0 Neutrophils % 81 % Lymphocytes % 11 % Monocytes % 6 % Eosinophils % 0 % Basophils % 0 % Neutrophils # 10.2 H (1.3-7.7) k/uL Lymphocytes # 1.5 (1.0-4.8) k/uL Monocytes # 0.8 (0-1.0) k/uL Eosinophils # 0.0 (0-0.7) k/uL Basophils # 0.0 (0-0.2) k/uL PT 12.0 (10.0-12.5) sec INR 1.1 (<1.2) APTT 22.7 (22.0-30.0) sec Sodium 137 (137-145) mmol/L Potassium 4.0 (3.5-5.1) mmol/L Chloride 106 (98-107) mmol/L Carbon Dioxide 20 L (22-30) mmol/L Anion Gap 11 mmol/L BUN 62 H (9-20) mg/dL Creatinine 1.87 H (0.66-1.25) mg/dL Est GFR (CKD-EPI)AfAm 43 (>60 ml/min/1.73 sqM) Est GFR (CKD-EPI)NonAf 37 (>60 ml/min/1.73 sqM) Glucose 116 H (74-99) mg/dL Plasma Lactic Acid Jack (0.7-2.0) mmol/L Calcium 9.1 (8.4-10.2) mg/dL Magnesium 2.4 H (1.6-2.3) mg/dL Total Bilirubin 0.4 (0.2-1.3) mg/dL AST 63 H (17-59) U/L ALT 106 H (4-49) U/L Alkaline Phosphatase 132 H (38-126) U/L Troponin I (0.000-0.034) ng/mL Total Protein 5.8 L (6.3-8.2) g/dL Albumin 3.3 L (3.5-5.0) g/dL TSH 1.890 (0.465-4.680) mIU/L Urine Color Urine Appearance (Clear) Urine pH (5.0-8.0) Ur Specific Castine (1.001-1.035) Urine Protein (Negative) Urine Glucose (UA) (Negative) Urine Ketones (Negative) Urine Blood (Negative) Urine Nitrite (Negative) Urine Bilirubin (Negative) Urine Urobilinogen (<2.0) mg/dL Ur Leukocyte Esterase (Negative) 09/06/23 09/06/23 09/06/23 Range/Units 14:53 14:53 15:39 WBC (3.8-10.6) k/uL RBC (4.30-5.90) m/uL Hgb (13.0-17.5) gm/dL Hct (39.0-53.0) % MCV (80.0-100.0) fL MCH (25.0-35.0) pg MCHC (31.0-37.0) g/dL RDW (11.5-15.5) % Plt Count (150-450) k/uL MPV Neutrophils % % Lymphocytes % % Monocytes % % Eosinophils % % Basophils % % Neutrophils # (1.3-7.7) k/uL Lymphocytes # (1.0-4.8) k/uL Monocytes # (0-1.0) k/uL Eosinophils # (0-0.7) k/uL Basophils # (0-0.2) k/uL PT (10.0-12.5) sec INR (<1.2) APTT (22.0-30.0) sec Sodium (137-145) mmol/L Potassium (3.5-5.1) mmol/L Chloride (98-107) mmol/L Carbon Dioxide (22-30) mmol/L Anion Gap mmol/L BUN (9-20) mg/dL Creatinine (0.66-1.25) mg/dL Est GFR (CKD-EPI)AfAm (>60 ml/min/1.73 sqM) Est GFR (CKD-EPI)NonAf (>60 ml/min/1.73 sqM) Glucose (74-99) mg/dL Plasma Lactic Acid Jack 3.2 H* (0.7-2.0) mmol/L Calcium (8.4-10.2) mg/dL Magnesium (1.6-2.3) mg/dL Total Bilirubin (0.2-1.3) mg/dL AST (17-59) U/L ALT (4-49) U/L Alkaline Phosphatase (38-126) U/L Troponin I 0.073 H* (0.000-0.034) ng/mL Total Protein (6.3-8.2) g/dL Albumin (3.5-5.0) g/dL TSH (0.465-4.680) mIU/L Urine Color Yellow Urine Appearance Clear (Clear) Urine pH 5.0 (5.0-8.0) Ur Specific Castine 1.022 (1.001-1.035) Urine Protein Trace H (Negative) Urine Glucose (UA) Negative (Negative) Urine Ketones Negative (Negative) Urine Blood Negative (Negative) Urine Nitrite Negative (Negative) Urine Bilirubin Negative (Negative) Urine Urobilinogen <2.0 (<2.0) mg/dL Ur Leukocyte Esterase Negative (Negative) Disposition Clinical Impression: Orthostatic hypotension, Renal insufficiency, Dehydration, Elevated troponin, Nausea & vomiting Disposition: ADMITTED IP TO THIS HOSP Referrals: Misael Hopkins MD [Primary Care Provider] - 1-2 days Time of Disposition: 17:32
[2023-09-06] MEDS: SODIUM CHLORIDE 0.9% 1,000 ML IV STA (14:58)
[2023-09-06] MEDS: SODIUM CHLORIDE 0.9% 500 ML 500 ML IV STA (14:58)
[2023-09-06 15:15] LABS: INR 1.1 (<1.2); Partial Thromboplastin Time 22.7 sec (22.0-30.0)
[2023-09-06 15:21] LABS: Basophils % (A) 0 %; Eosinophils % (A) 0 %; HCT 45.3 % (39.0-53.0); HGB 15.1 gm/dL (13.0-17.5); Lymphocytes # (A) 1.5 k/uL (1.0-4.8); Lymphocytes % (A) 11 %; MCH 30.5 pg (25.0-35.0); MCHC 33.3 g/dL (31.0-37.0); Monocytes # (A) 0.8 k/uL (0-1.0); Monocytes % (A) 6 %; Neutrophils # (A) 10.2 k/uL (1.3-7.7); Neutrophils % (A) 81 %; Platelet Count 315 k/uL (150-450); RBC 4.94 m/uL (4.30-5.90); RDW 14.6 % (11.5-15.5); WBC 12.6 k/uL (3.8-10.6)
[2023-09-06 15:22] LABS: MCV 91.8 fL (80.0-100.0)
[2023-09-06 15:26] LABS: ALT 106 U/L (4-49); AST 63 U/L (17-59); African American GFR (CKD) 43 (>60 ml/min/1.73 sqM); Albumin 3.3 g/dL (3.5-5.0); Alkaline Phosphatase 132 U/L (38-126); Anion Gap 11 mmol/L; Blood Urea Nitrogen 62 mg/dL (9-20); Calcium 9.1 mg/dL (8.4-10.2); Carbon Dioxide 20 mmol/L (22-30); Chloride 106 mmol/L (98-107); Glucose 116 mg/dL (74-99); Magnesium 2.4 mg/dL (1.6-2.3); Non-African American GFR(CKD) 37 (>60 ml/min/1.73 sqM); Sodium 137 mmol/L (137-145); Total Bilirubin 0.4 mg/dL (0.2-1.3); Total Protein 5.8 g/dL (6.3-8.2)
--- NOTE | 2023-09-06 15:52 | XR ---
EXAMINATION TYPE: XR chest 2V DATE OF EXAM: 09/06/2023 COMPARISON: 08/28/2023 HISTORY: Shortness of breath TECHNIQUE: Frontal and lateral views of the chest are obtained. FINDINGS: Scattered senescent parenchymal changes noted. Hyperinflation compatible with COPD. No evidence for infiltrate. No evidence for atelectasis. Heart size is stable. Mediastinal structures are stable and grossly unremarkable. No evidence for hilar prominence. Degenerative changes dorsal spine. IMPRESSION: 1. No evidence for acute pulmonary disease.
[2023-09-06 16:10] LABS: Appearance,Urine Clear (Clear); Bilirubin,Urine Negative (Negative); Blood,Urine Negative (Negative); Color,Urine Yellow; Glucose,Urine (UA) Negative (Negative); Ketones,Urine Negative (Negative); Leukocyte Esterase,Urine Negative (Negative); Nitrite,Urine Negative (Negative); Protein,Urine Trace (Negative); Specific Gravity,Urine 1.022 (1.001-1.035); Urobilinogen,Urine <2.0 mg/dL (<2.0)
[2023-09-06] MEDS: SODIUM CHLORIDE 0.9% 1,000 ML IV ONE (18:01)
[2023-09-06] MEDS: busPIRone HCl 5 MG TAB PO SCH (20:47)
[2023-09-06] MEDS: SERTRALINE 25 MG TAB PO SCH (20:48)
[2023-09-06] MEDS: PANTOPRAZOLE 40 MG TABLET PO SCH (20:48)
[2023-09-06] MEDS: HEPARIN SODIUM,PORCINE 5,000 UNIT/ML 1 ML VIAL SQ SCH (20:49)
[2023-09-07] MEDS: CALCIUM CARBONATE 500 MG CHEWABLE PO PRN (02:27)
[2023-09-07] MEDS: ONDANSETRON 4 MG/2 ML VIAL IVP PRN (06:40)
[2023-09-07] MEDS: SODIUM CHLORIDE 0.9% 1,000 ML IV SCH (06:46)
--- NOTE | 2023-09-07 07:41 | P.HPIM ---
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 This time he presents because of recurrent fall and. Patient states that he has been falling almost every day for the last week. Yesterday his daughter and son-in-law got worried and asked him to come to emergency room. Currently he is fully awake oriented to place person. He denies any pain. Patient states that he feels generally dizzy when he falls down, sometimes he passes out. Currently patient feels a lot of nausea Patient has somewhat poor appetite No abdominal pain, no diarrhea, patient states he does not have bowel movement in 4 to 5 days No urinary complaints No chest pain or dyspnea. Has little cough He has headache but not currently, no weakness or numbness. At baseline he walks at home he has a cane but he does not use it He denies smoking alcohol. He uses marijuana frequently about once or twice a week for years, patient was counseled to quit smoking marijuana as it might contribute to his daily vomiting Patient is afebrile Labs reviewed he has mild leukocytosis of 12.6, rest of CBC is unremarkable Creatinine is elevated 1.8 with baseline 0.6 Liver enzymes mildly elevated Troponin is elevated as well 0.07 and 0.05. EKG showed normal sinus rhythm at [address] changes but there is inverted T wave in the inferior and lateral leads, which is seen in old EKG from 08/28/2023 QTc 456 Chest x-ray is negative for acute process TSH 1.8 Urine analysis negative for infection Patient received 2.5 L of normal saline in emergency room His lisinopril 5 mg and metoprolol 12.5 mg were held in the emergency room Review of Systems Review of systems CONSTITUTIONAL: No fever, no malaise, no fatigue. HEENT: No recent visual problems or hearing problems. Denied any sore throat. CARDIOVASCULAR: No orthopnea, PND, no palpitations, no syncope. PULMONARY: No shortness of breath, no cough, no hemoptysis. GASTROINTESTINAL: No diarrhea, no nausea, no vomiting, no abdominal pain. Normoactive bowel sounds. NEUROLOGICAL: No headaches, no weakness, no numbness. HEMATOLOGICAL: Denies any bleeding or petechiae. GENITOURINARY: Denies any burning micturition, frequency, or urgency. MUSCULOSKELETAL/RHEUMATOLOGICAL: Denies any joint pain, swelling, or any muscle pain. ENDOCRINE: Denies any polyuria or polydipsia. Past Medical History Past Medical History: Asthma, Coronary Artery Disease (CAD), Chest Pain / Angina, CVA/TIA, GERD/Reflux, Hyperlipidemia, Hypertension, Pneumonia, Rheumatoid Arthritis (RA) Additional Past Medical History / Comment(s): MIGRAINES, HEART MURMUR, hx HIATAL HERNIA, ANEMIA, one dr told him he had a stroke at one time-no effects, varicose veins, history of incarcerated per esophageal hernia, status post robotic-assisted paraesophageal hernia repair and Frederick fundoplication on 04/12/2022. History of Any Multi-Drug Resistant Organisms: None Reported Past Surgical History: Heart Catheterization, Hernia Repair, Orthopedic Surgery Additional Past Surgical History / Comment(s): Lt achilles tendon,RT SHOULDER surgery, RT ACHILLES TENDON reattached, HEMORRHOIDECTOMY, 13 FATTY TUMORS removed. left hand index finger surgery after injury, EGD WITH DILATION, paraesophageal hernia repair with Frederick fundoplication on 04/12/2022. Past Anesthesia/Blood Transfusion Reactions: No Reported Reaction Additional Past Anesthesia/Blood Transfusion Reaction / Comment(s): no hx blood transfusion Past Psychological History: Anxiety, Depression Smoking Status: Former smoker Past Alcohol Use History: None Reported Additional Past Alcohol Use History / Comment(s): QUIT SMOKING 1999, APPROX SMOKED 20 YRS, 1-2PPD. pt states hx alcoholism Past Drug Use History: Marijuana Additional Drug Use History / Comment(s): CURRENTLY USES MARIJUANA - Past Family History Mother Family Medical History: Cancer Father Additional Family Medical History / Comment(s): thinks aneurysm Medications and Allergies Home Medications Medication Instructions Recorded Confirmed Type Metoprolol Tartrate [Lopressor] 12.5 mg PO BID 08/20/18 09/06/23 History lisinopriL [Zestril] 5 mg PO DAILY #30 tab 11/06/22 09/06/23 Rx Nitroglycerin Sl Tabs [Nitrostat] 0.4 mg SUBLINGUAL Q5M PRN 08/08/23 09/06/23 History Sertraline [Zoloft] 25 mg PO DAILY 08/08/23 09/06/23 History busPIRone HCL [Buspar] 7.5 mg PO BID 08/08/23 09/06/23 History Metoclopramide HCl [Reglan] 5 mg PO TID #21 tablet 09/02/23 09/06/23 Rx Allergies Allergy/AdvReac Type Severity Reaction Status Date / Time No Known Allergies Allergy Verified 09/06/23 15:23 Physical Exam Vitals: Vital Signs Temp Pulse Pulse Resp BP BP Pulse Ox 09/07/23 04:03 85 18 116/58 97 09/06/23 23:59 87 18 121/79 97 09/06/23 22:20 97.4 F L 80 18 123/83 97 09/06/23 21:24 75 18 110/70 98 09/06/23 18:35 81 18 101/82 95 09/06/23 17:19 78 18 118/75 97 09/06/23 16:26 66 18 102/74 100 09/06/23 15:27 79 18 95/70 96 09/06/23 14:59 74 18 73/58 98 09/06/23 14:31 97.1 F L 82 18 72/59 Intake and Output 09/06/23 09/07/23 09/07/23 22:59 06:59 14:59 Output Total 200 Balance -200 Output: Urine 200 Other: Voiding Method Urinal Urinal # Voids 1 Weight 65.317 kg GENERAL: The patient is alert and oriented x3, not in any acute distress. Well developed, well nourished. HEENT: Pupils are round and equally reacting to light. EOMI. No scleral icterus. No conjunctival pallor. Normocephalic, atraumatic. No pharyngeal erythema. No thyromegaly. CARDIOVASCULAR: S1 and S2 present. No murmurs, rubs, or gallops. PULMONARY: Chest is clear to auscultation, no wheezing , no crackles. ABDOMEN: Soft, nontender, nondistended, normoactive bowel sounds. No palpable organomegaly. MUSCULOSKELETAL: No joint swelling or deformity. EXTREMITIES: No cyanosis, clubbing, or pedal edema. NEUROLOGICAL: Gross neurological examination did not reveal any focal deficits. SKIN: No rashes. no petechiae. Results CBC & Chem 7: 09/06/23 14:53 09/06/23 14:53 Labs: Abnormal Lab Results - Last 24 Hours (Table) 09/06/23 09/06/23 09/06/23 Range/Units 14:53 14:53 14:53 WBC 12.6 H (3.8-10.6) k/uL Neutrophils # 10.2 H (1.3-7.7) k/uL Carbon Dioxide 20 L (22-30) mmol/L BUN 62 H (9-20) mg/dL Creatinine 1.87 H (0.66-1.25) mg/dL Glucose 116 H (74-99) mg/dL Plasma Lactic Acid Jack 3.2 H* (0.7-2.0) mmol/L Magnesium 2.4 H (1.6-2.3) mg/dL AST 63 H (17-59) U/L ALT 106 H (4-49) U/L Alkaline Phosphatase 132 H (38-126) U/L Troponin I (0.000-0.034) ng/mL Total Protein 5.8 L (6.3-8.2) g/dL Albumin 3.3 L (3.5-5.0) g/dL Urine Protein (Negative) 09/06/23 09/06/23 09/06/23 Range/Units 14:53 15:39 18:02 WBC (3.8-10.6) k/uL Neutrophils # (1.3-7.7) k/uL Carbon Dioxide (22-30) mmol/L BUN (9-20) mg/dL Creatinine (0.66-1.25) mg/dL Glucose (74-99) mg/dL Plasma Lactic Acid Jack (0.7-2.0) mmol/L Magnesium (1.6-2.3) mg/dL AST (17-59) U/L ALT (4-49) U/L Alkaline Phosphatase (38-126) U/L Troponin I 0.073 H* 0.050 H* (0.000-0.034) ng/mL Total Protein (6.3-8.2) g/dL Albumin (3.5-5.0) g/dL Urine Protein Trace H (Negative) Thrombosis Risk Factor Assmnt - Choose All That Apply Other Risk Factors: Yes Each Risk Factor Represents 2 Points: Age 61-74 years Other congenital or acquired thrombophilia - If yes, enter type in comment: No Thrombosis Risk Factor Assessment Total Risk Factor Score: 2 Thrombosis Risk Factor Assessment Level: Low Risk Assessment and Plan Assessment: Recurrent fall associated with syncope Acute on chronic vomiting episodes Substance use disorder with cannabis Dehydration Acute kidney injury Elevated troponin, most likely demand supply mismatch, rule out cardiac causes Chronic transaminitis Chronic vomiting GERD Hypertension Hyperlipidemia Rheumatoid arthritis Coronary artery disease History of asthma, not active issue Migraine, no active issue History of CVA/TIA, patient has been told he has stroke 1 time Plan: Continue with normal saline Check orthostatic vitals Keep holding lisinopril and metoprolol Check cortisol GI team consult Cardiology team consulted for elevated troponin Patient is counseled to quit using marijuana and he agrees Labs and medication were reviewed.. Continue same treatment. Continue with symptomatic treatment. Resume home medication. Monitor labs and vitals. DVT and GI prophylaxis. Further recommendations as per clinical course of the patient DVT prophylaxis: Subcutaneous heparin GI Prophylaxis: Ppi PT/OT: Pending Prognosis is guarded
[2023-09-07] MEDS: ACETAMINOPHEN TAB 325 MG TAB PO PRN (08:04)
[2023-09-07] MEDS: METOCLOPRAMIDE 5 MG TAB PO PRN (08:06)
[2023-09-07 08:57] VITALS: RESP 16
[2023-09-07 09:41] LABS: ALT 79 U/L (4-49); AST 44 U/L (17-59); African American GFR (CKD) 73 (>60 ml/min/1.73 sqM); Alkaline Phosphatase 116 U/L (38-126); Anion Gap 7 mmol/L; Blood Urea Nitrogen 47 mg/dL (9-20); Calcium 8.6 mg/dL (8.4-10.2); Carbon Dioxide 26 mmol/L (22-30); Chloride 108 mmol/L (98-107); Glucose 122 mg/dL (74-99); Magnesium 2.1 mg/dL (1.6-2.3); Non-African American GFR(CKD) 63 (>60 ml/min/1.73 sqM); Potassium 3.6 mmol/L (3.5-5.1); Sodium 141 mmol/L (137-145); Total Bilirubin 0.5 mg/dL (0.2-1.3); Total Protein 5.5 g/dL (6.3-8.2)
--- NOTE | 2023-09-07 11:33 | P.CRDCN ---
History of Present Illness History of present illness: HISTORY OF PRESENT ILLNESS: This is a 67-year-old male with a past medical history significant for hypertension, anxiety, depression, former nicotine dependence, previous history of alcohol abuse, and current marijuana use. Patient follows in the office with Dr. Mckeon. We have been asked to see the patient in consultation for abnormal troponins. Patient examined at the bedside. Patient presented to the hospital with a chief complaint of nausea and vomiting. Patient was hospitalized last month for similar symptoms and underwent EGD with Dr. Pavon revealing moderate size hiatal hernia and esophagitis. The patient denies having any chest pain or pressure. He denies any shortness of breath. Vital signs are stable. DIAGNOSTICS: - EKG reveals sinus mechanism with diffuse T wave inversions, unchanged from previous EKG. - Chest xray negative for acute process. - Laboratory data: WBC 12.6. Hemoglobin 15.1. Platelet count 315. Sodium 141. Potassium 3.6. BUN 47. Creatinine 1.19. AST 44. ALT 79. Troponin 0.073. 0.050 - Current home cardiac medications include lisinopril 5 mg daily and metoprolol tartrate 12.5 mg twice a day. - Most recent echocardiogram obtained in August 2023 reveals ejection fraction 60 to 65%. - Cardiac catheterization history: 2019 revealing normal coronary arteries REVIEW OF SYSTEMS: At the time of my exam: CONSTITUTIONAL: Denies fever or chills. HEENT: Denies blurred vision, vision changes, or eye pain. Denies hemoptysis CARDIOVASCULAR: Denies chest pain. Denies orthopnea. Denies PND. Denies palpitations RESPIRATORY: Denies shortness of breath. GASTROINTESTINAL: Denies abdominal pain. Denies nausea or vomiting. HEMATOLOGIC: Denies bleeding disorders. GENITOURINARY: Denies any blood in urine. SKIN: Denies pruitis. Denies rash. PHYSICAL EXAM: VITAL SIGNS: Reviewed. GENERAL: Well-developed in no acute distress. HEENT: Head is normocephalic. Pupils are equal, round. Sclerae anicteric. Mucous membranes of the mouth are moist. Neck supple. No JVD or thyromegaly LUNGS: Respirations even and unlabored. Lungs essentially clear to auscultation bilaterally. HEART: Regular rate and rhythm. S1 and S2 heard. Systolic murmur noted ABDOMEN: Soft. Nondistended. Nontender. EXTREMITIES: Normal range of motion. No clubbing or cyanosis. Peripheral pulses intact. No lower extremity edema NEUROLOGIC: Awake and alert. Oriented x 3. ASSESSMENT: Nausea and vomiting Acute kidney injury, resolved Abnormal troponins, flat, not suggestive of acute coronary syndrome, likely secondary to GERONIMO History of mitral regurgitation Hypertension Anxiety Depression Former nicotine dependence Current marijuana use History of alcoholism PLAN: An acute coronary event has been ruled out Obtain 2D echo to assess cardiac structure and function Continue current cardiac medications Recommend abstinence from alcohol Further recommendations pending patient course Nurse practitioner note has been reviewed by physician. Signing provider agrees with the documented findings, assessment, and plan of care documented by [employer] as a scribe. Past Medical History Past Medical History: Asthma, Coronary Artery Disease (CAD), Chest Pain / Angina, CVA/TIA, GERD/Reflux, Hyperlipidemia, Hypertension, Pneumonia, Rheumatoid Arthritis (RA) Additional Past Medical History / Comment(s): MIGRAINES, HEART MURMUR, hx HIATAL HERNIA, ANEMIA, one dr told him he had a stroke at one time-no effects, varicose veins, history of incarcerated per esophageal hernia, status post robotic-assisted paraesophageal hernia repair and Frederick fundoplication on 04/12/2022. History of Any Multi-Drug Resistant Organisms: None Reported Past Surgical History: Heart Catheterization, Hernia Repair, Orthopedic Surgery Additional Past Surgical History / Comment(s): Lt achilles tendon,RT SHOULDER surgery, RT ACHILLES TENDON reattached, HEMORRHOIDECTOMY, 13 FATTY TUMORS removed. left hand index finger surgery after injury, EGD WITH DILATION, paraesophageal hernia repair with Frederick fundoplication on 04/12/2022. Past Anesthesia/Blood Transfusion Reactions: No Reported Reaction Additional Past Anesthesia/Blood Transfusion Reaction / Comment(s): no hx blood transfusion Past Psychological History: Anxiety, Depression Smoking Status: Former smoker Past Alcohol Use History: None Reported Additional Past Alcohol Use History / Comment(s): QUIT SMOKING 1999, APPROX SMOKED 20 YRS, 1-2PPD. pt states hx alcoholism Past Drug Use History: Marijuana Additional Drug Use History / Comment(s): CURRENTLY USES MARIJUANA - Past Family History Mother Family Medical History: Cancer Father Additional Family Medical History / Comment(s): thinks aneurysm Medications and Allergies Home Medications Medication Instructions Recorded Confirmed Type Metoprolol Tartrate [Lopressor] 12.5 mg PO BID 08/20/18 09/06/23 History lisinopriL [Zestril] 5 mg PO DAILY #30 tab 11/06/22 09/06/23 Rx Nitroglycerin Sl Tabs [Nitrostat] 0.4 mg SUBLINGUAL Q5M PRN 08/08/23 09/06/23 History Sertraline [Zoloft] 25 mg PO DAILY 08/08/23 09/06/23 History busPIRone HCL [Buspar] 7.5 mg PO BID 08/08/23 09/06/23 History Metoclopramide HCl [Reglan] 5 mg PO TID #21 tablet 09/02/23 09/06/23 Rx Allergies Allergy/AdvReac Type Severity Reaction Status Date / Time No Known Allergies Allergy Verified 09/06/23 15:23 Physical Exam Vitals: Vital Signs Temp Pulse Pulse Resp BP BP Pulse Ox 09/07/23 08:00 97.8 F 103 H 16 116/73 98 09/07/23 04:03 85 18 116/58 97 09/06/23 23:59 87 18 121/79 97 09/06/23 22:20 97.4 F L 80 18 123/83 97 09/06/23 21:24 75 18 110/70 98 09/06/23 18:35 81 18 101/82 95 09/06/23 17:19 78 18 118/75 97 09/06/23 16:26 66 18 102/74 100 09/06/23 15:27 79 18 95/70 96 09/06/23 14:59 74 18 73/58 98 09/06/23 14:31 97.1 F L 82 18 72/59 Intake and Output 09/06/23 09/07/23 09/07/23 22:59 06:59 14:59 Intake Total 118 Output Total 200 Balance -200 118 Intake: Oral 118 Output: Urine 200 Other: Voiding Method Urinal Urinal Urinal # Voids 1 Weight 65.317 kg Results 09/06/23 14:53 09/07/23 08:05 Cardiac Enzymes 09/06/23 09/06/23 09/06/23 Range/Units 14:53 14:53 18:02 AST 63 H (17-59) U/L Troponin I 0.073 H* 0.050 H* (0.000-0.034) ng/mL 09/07/23 Range/Units 08:05 AST 44 (17-59) U/L Troponin I (0.000-0.034) ng/mL Coagulation 09/06/23 Range/Units 14:53 PT 12.0 (10.0-12.5) sec APTT 22.7 (22.0-30.0) sec CBC 09/06/23 Range/Units 14:53 WBC 12.6 H (3.8-10.6) k/uL RBC 4.94 (4.30-5.90) m/uL Hgb 15.1 (13.0-17.5) gm/dL Hct 45.3 (39.0-53.0) % Plt Count 315 (150-450) k/uL Comprehensive Metabolic Panel 09/06/23 09/07/23 Range/Units 14:53 08:05 Sodium 137 141 (137-145) mmol/L Potassium 4.0 3.6 (3.5-5.1) mmol/L Chloride 106 108 H (98-107) mmol/L Carbon Dioxide 20 L 26 (22-30) mmol/L BUN 62 H 47 H (9-20) mg/dL Creatinine 1.87 H 1.19 (0.66-1.25) mg/dL Glucose 116 H 122 H (74-99) mg/dL Calcium 9.1 8.6 (8.4-10.2) mg/dL AST 63 H 44 (17-59) U/L ALT 106 H 79 H (4-49) U/L Alkaline Phosphatase 132 H 116 (38-126) U/L Total Protein 5.8 L 5.5 L (6.3-8.2) g/dL Albumin 3.3 L 3.0 L (3.5-5.0) g/dL Current Medications Generic Name Dose Route Start Last Admin Trade Name Freq PRN Reason Stop Dose Admin Acetaminophen 650 mg 09/06/23 18:05 09/07/23 08:04 Acetaminophen Tab 325 Mg Tab PO 650 mg Q6HR PRN Administration Fever and/ or Pain Buspirone HCl 7.5 mg 09/06/23 21:00 09/07/23 08:05 Buspirone Hcl 5 Mg Tab PO 7.5 mg BID GIRISH Administration Calcium Carbonate/Glycine 500 mg 09/06/23 20:12 09/07/23 06:38 Calcium Carbonate 500 Mg Chewable PO 500 mg QID PRN Administration Heartburn Heparin Sodium (Porcine) 5,000 unit 09/06/23 21:00 09/07/23 08:06 Heparin Sodium,Porcine 5,000 Unit/Ml 1 Ml Vial SQ 5,000 unit Q12HR GIRISH Administration Sodium Chloride 1,000 mls @ 75 mls/hr 09/07/23 06:30 09/07/23 06:46 Saline 0.9% IV Not Given .[id number] GIRISH Metoclopramide HCl 5 mg 09/06/23 18:05 09/07/23 08:06 Metoclopramide 5 Mg Tab PO 5 mg TID PRN Administration Nausea Ondansetron HCl 4 mg 09/06/23 17:32 09/07/23 06:40 Ondansetron 4 Mg/2 Ml Vial IVP 4 mg Q6HR PRN Administration Nausea And Vomiting Pantoprazole Sodium 40 mg 09/06/23 20:15 09/07/23 06:38 Pantoprazole 40 Mg Tablet PO 40 mg [id number] GIRISH Administration Sertraline HCl 25 mg 09/07/23 09:00 09/06/23 20:48 Sertraline 25 Mg Tab PO 25 mg DAILY GIRISH Administration Intake and Output 09/06/23 09/07/23 09/07/23 22:59 06:59 14:59 Intake Total 118 Output Total 200 Balance -200 118 Intake: Oral 118 Output: Urine 200 Other: Voiding Method Urinal Urinal Urinal # Voids 1 Weight 65.317 kg 09/06/23 14:53 09/07/23 08:05
--- NOTE | 2023-09-07 13:52 | CA ---
Transthoracic Echo Report Name: Finn Alex Age: 67 Gender: M : 1955 Exam Date: 09/07/2023 12:49 Exam Location: [facility] Ht (in): 68 Wt (lb): 144 Ordering Physician: Nan Jefferson Attending/Referring Phys: [id number], Ronny Banking Supervisor Brittney Torres RCS Procedure CPT: Indications: elevated trops Cardiac Hx: Technical Quality: Technically difficult study Contrast 1: Definity Total Dose (mL): 2 Contrast 2: Total Dose (mL): MEASUREMENTS (Male / Female) Normal Values 2D ECHO LV Diastolic Volume MOD BP 74.2 cm??? 67 - 155 / 56 - 104 cm??? LV Systolic Volume MOD BP 24.8 cm??? 22 - 58 / 19 - 49 cm??? LV Ejection Fraction MOD BP 66.6 % >= 55 % LV Cardiac Index MOD BP 2317.4 cm???/min???m??? LV Diastolic Volume MOD 4C 78.9 cm??? LV Systolic Volume MOD 4C 28.5 cm??? LV Ejection Fraction MOD 4C 63.8 % LV Cardiac Index MOD 4C 2360.5 cm???/min???m??? LV Diastolic Length 4C 7.7 cm LV Systolic Length 4C 6.2 cm LV Diastolic Volume MOD 2C 69.2 cm??? LV Systolic Volume MOD 2C 21.3 cm??? LV Ejection Fraction MOD 2C 69.2 % LV Cardiac Index MOD 2C 2246.4 cm???/min???m??? LV Diastolic Length 2C 7.6 cm LV Systolic Length 2C 6.1 cm FINDINGS Left Ventricle Left ventricular ejection fraction is estimated at 60-65 %. Left ventricular cavity size normal. No obvious regional wall motion abnormalities. Right Ventricle Right ventricle not well visualized. Right Atrium Right atrium not assessed. Left Atrium Left atrium not assessed. Mitral Valve Mitral valve not assessed. Aortic Valve Aortic valve not assessed. Tricuspid Valve Tricuspid valve not assessed. Pulmonic Valve Pulmonic valve not assessed. Pericardium No pericardial effusion. Aorta Aortic root and proximal ascending aorta not assessed. CONCLUSIONS Limited 2-D echo Left ventricular EF 60-65% No pericardial effusion Previewed by: Dr. Tien Salazar DO (Electronically Signed) Final Date: 07 September 2023 13:51
--- NOTE | 2023-09-07 14:36 | P.CONS ---
History of Present Illness - Reason for Consult Consult date: 09/07/23 Vomiting Requesting physician: Juan E Sheet - Chief Complaint Weakness - History of Present Illness This is a pleasant 67-year-old male with a past medical history of asthma, coronary artery disease, TIA, GERD, hyperlipidemia, hypertension, rheumatoid arthritis with previous incarcerated esophageal hernia status post robotic assisted paraesophageal hernia repair and Niesen fundoplication in April 2022 who presented to the emergency department with complaints of weakness and lightheadedness. Apparently patient has a history for many years of what he states is bringing up phlegm and sputum by coughing it up. Gastroenterology was consulted for vomiting. He denies any nausea, states he is not actually vomiting any food. States that he just brings up phlegm. States that he has no difficulty with swallowing and he is eating well, no recent weight loss. He had recent endoscopic evaluation with Dr. Pavon on 08/10/2023 for reported nausea vomiting with findings of moderate size hiatal hernia and esophagitis. Biopsy reported mild chronic esophagitis. Currently patient denies any abdominal pain, no nausea or vomiting. Again just states that he will bring phlegm and sputum multiple times throughout the day. This has been going on for years. He denies any epigastric pain, again no difficulty with swallowing and has tolerated his regular breakfast this morning. Review of Systems REVIEW OF SYSTEMS: CARDIOPULMONARY: No chest pain or shortness of breath. Gastrointestinal: No abdominal pain or epigastric pain. No nausea or vomiting. No hematemesis, coffee-ground emesis. No rectal bleeding, or melena. Patient reports more of a spitting and coughing up of phlegm and mucus GENITOURINARY: No dysuria or hematuria. MUSCULOSKELETAL: Reports normal range of motion., Joint pain. SKIN: No rashes. No jaundice. ENDOCRINE: No chills, fevers. No excessive weight gain or loss. No polydipsia or polyuria. PSYCHIATRIC: Unremarkable. NEUROLOGY: No change in mental status. Denies dizziness, headache. ENT: Vision unremarkable. CONSTITUTIONAL: No recent weight loss. No fever, chills, night sweats. Past Medical History Past Medical History: Asthma, Coronary Artery Disease (CAD), Chest Pain / Angina, CVA/TIA, GERD/Reflux, Hyperlipidemia, Hypertension, Pneumonia, Rheumatoid Arthritis (RA) Additional Past Medical History / Comment(s): MIGRAINES, HEART MURMUR, hx HIATAL HERNIA, ANEMIA, one dr told him he had a stroke at one time-no effects, varicos e veins, history of incarcerated per esophageal hernia, status post robotic- assisted paraesophageal hernia repair and Frederick fundoplication on 04/12/2022. History of Any Multi-Drug Resistant Organisms: None Reported Past Surgical History: Heart Catheterization, Hernia Repair, Orthopedic Surgery Additional Past Surgical History / Comment(s): Lt achilles tendon,RT SHOULDER surgery, RT ACHILLES TENDON reattached, HEMORRHOIDECTOMY, 13 FATTY TUMORS removed. left hand index finger surgery after injury, EGD WITH DILATION, para esophageal hernia repair with Frederick fundoplication on 04/12/2022. Past Anesthesia/Blood Transfusion Reactions: No Reported Reaction Additional Past Anesthesia/Blood Transfusion Reaction / Comm: no hx blood transfusion Past Psychological History: Anxiety, Depression Smoking Status: Former smoker Past Alcohol Use History: None Reported Additional Past Alcohol Use History / Comment(s): QUIT SMOKING 1999, APPROX SMOKED 20 YRS, 1-2PPD. pt states hx alcoholism Past Drug Use History: Marijuana Additional Drug Use History / Comment(s): CURRENTLY USES MARIJUANA - Past Family History Mother Family Medical History: Cancer Father Additional Family Medical History / Comment(s): thinks aneurysm Medications and Allergies Home Medications Medication Instructions Recorded Confirmed Type Metoprolol Tartrate [Lopressor] 12.5 mg PO BID 08/20/18 09/06/23 History lisinopriL [Zestril] 5 mg PO DAILY #30 tab 11/06/22 09/06/23 Rx Nitroglycerin Sl Tabs [Nitrostat] 0.4 mg SUBLINGUAL Q5M PRN 08/08/23 09/06/23 History Sertraline [Zoloft] 25 mg PO DAILY 08/08/23 09/06/23 History busPIRone HCL [Buspar] 7.5 mg PO BID 08/08/23 09/06/23 History Metoclopramide HCl [Reglan] 5 mg PO TID #21 tablet 09/02/23 09/06/23 Rx Allergies Allergy/AdvReac Type Severity Reaction Status Date / Time No Known Allergies Allergy Verified 09/06/23 15:23 Physical Exam Vitals: Vital Signs Temp Pulse Pulse Resp BP BP Pulse Ox 09/07/23 08:00 97.8 F 103 H 16 116/73 98 09/07/23 04:03 85 18 116/58 97 09/06/23 23:59 87 18 121/79 97 09/06/23 22:20 97.4 F L 80 18 123/83 97 09/06/23 21:24 75 18 110/70 98 09/06/23 18:35 81 18 101/82 95 09/06/23 17:19 78 18 118/75 97 09/06/23 16:26 66 18 102/74 100 09/06/23 15:27 79 18 95/70 96 09/06/23 14:59 74 18 73/58 98 09/06/23 14:31 97.1 F L 82 18 72/59 Intake and Output 09/06/23 09/07/23 09/07/23 22:59 06:59 14:59 Intake Total 118 Output Total 200 Balance -200 118 Intake: Oral 118 Output: Urine 200 Other: Voiding Method Urinal Urinal # Voids 1 Weight 65.317 kg General appearance: The patient is alert, oriented, appears in no acute distress. HET: Head is normocephalic and atraumatic. Conjunctiva pink. Sclera anicteric. Neck: Supple without lymphadenopathy. Trachea midline. Heart: Regular. Lungs: Equal expansion, normal respiratory effort. Abdomen: Soft, nontender, nondistended. Skin: No rashes. No jaundice. Extremities: Normal skin color and turgor. No pedal edema. Neurological: No focal deficits. Alert and oriented x3. Results CBC & Chem 7: 09/06/23 14:53 09/07/23 08:05 Labs: Abnormal Lab Results - Last 24 Hours (Table) 09/06/23 09/06/23 09/06/23 Range/Units 14:53 14:53 14:53 WBC 12.6 H (3.8-10.6) k/uL Neutrophils # 10.2 H (1.3-7.7) k/uL Carbon Dioxide 20 L (22-30) mmol/L BUN 62 H (9-20) mg/dL Creatinine 1.87 H (0.66-1.25) mg/dL Glucose 116 H (74-99) mg/dL Plasma Lactic Acid Jack 3.2 H* (0.7-2.0) mmol/L Magnesium 2.4 H (1.6-2.3) mg/dL AST 63 H (17-59) U/L ALT 106 H (4-49) U/L Alkaline Phosphatase 132 H (38-126) U/L Troponin I (0.000-0.034) ng/mL Total Protein 5.8 L (6.3-8.2) g/dL Albumin 3.3 L (3.5-5.0) g/dL Urine Protein (Negative) 09/06/23 09/06/23 09/06/23 Range/Units 14:53 15:39 18:02 WBC (3.8-10.6) k/uL Neutrophils # (1.3-7.7) k/uL Carbon Dioxide (22-30) mmol/L BUN (9-20) mg/dL Creatinine (0.66-1.25) mg/dL Glucose (74-99) mg/dL Plasma Lactic Acid Jack (0.7-2.0) mmol/L Magnesium (1.6-2.3) mg/dL AST (17-59) U/L ALT (4-49) U/L Alkaline Phosphatase (38-126) U/L Troponin I 0.073 H* 0.050 H* (0.000-0.034) ng/mL Total Protein (6.3-8.2) g/dL Albumin (3.5-5.0) g/dL Urine Protein Trace H (Negative) Assessment and Plan (1) Vomiting Narrative/Plan: 67-year-old male coming in for weakness and lightheadedness possibly dehydrated. With ongoing complaints of chronic vomiting for many years. However patient does not describe it as vomiting of food but that he is bringing up mucus and phlegm. He states that it woke him up multiple times during the day. He does have a history of paraesophageal hernia with repair and Niesen fundoplication. He underwent recent endoscopic evaluation less than a month ago with findings of moderate hiatal hernia and mild esophagitis. Prior to that he had a previous scope done in April 2023 again moderate hiatal hernia and some gastritis. There has not been any esophageal stricture. Patient states that he is eating well no difficulty with swallowing and has a good appetite. He does not have nausea and does not feel nauseous prior to bringing up the sputum and phlegm. Unclear etiology however patient does not require any further gastroenterology workup. Discussed with primary medical team consider ear nose and throat for increased mucus secretions. No further workup indicated and no plans on endoscopic evaluation. Current Visit: Yes Status: Acute Code(s): R11.10 - VOMITING, UNSPECIFIED SNOMED Code(s): 373727093 (2) Weakness Current Visit: Yes Status: Acute Code(s): R53.1 - WEAKNESS SNOMED Code(s): 23178727 (3) Hiatal hernia Current Visit: Yes Status: Acute Code(s): K44.9 - DIAPHRAGMATIC HERNIA WITHOUT OBSTRUCTION OR GANGRENE SNOMED Code(s): 22901353 (4) History of Frederick fundoplication Current Visit: Yes Status: Acute Code(s): Z98.890 - OTHER SPECIFIED P OSTPROCEDURAL STATES SNOMED Code(s): 862481469 Plan: 1. Continue symptomatic and supportive care 2. Patient had recent upper endoscopy on 08/10/2023 with findings of moderate hiatal hernia and mild esophagitis and has actually had previous 1 in April 2023 again not finding any kind of esophageal stricture or narrowing. 3. Continue diet as tolerated 4. Protonix 40 mg for GI prophylaxis 5. No indication for any further gastroenterology workup. No plans on endoscopic evaluation 6. Consider ear nose and throat consultation for increased mucus and phlegm production Thank you for this consultation, we will sign off at this time. Dr. Kb Odell I agree with the dictator's note, documented as a scribe by Celia Walters.
[2023-09-07 21:05] VITALS: TEMP 98.4
--- NOTE | 2023-09-08 07:48 | P.PN ---
Subjective Progress Note Date: 09/08/23 Principal diagnosis: Vomiting This is a pleasant 67-year-old male with a past medical history of asthma, coronary artery disease, TIA, GERD, hyperlipidemia, hypertension, rheumatoid arthritis with previous incarcerated esophageal hernia status post robotic assisted paraesophageal hernia repair and Niesen fundoplication in April 2022 who presented to the emergency department with complaints of weakness and lightheadedness. Apparently patient has a history for many years of what he states is bringing up phlegm and sputum by coughing it up. Gastroenterology was consulted for vomiting. He denies any nausea, states he is not actually vomiting any food. States that he just brings up phlegm. States that he has no difficulty with swallowing and he is eating well, no recent weight loss. He had recent endoscopic evaluation with Dr. Pavon on 08/10/2023 for reported nausea vomiting with findings of moderate size hiatal hernia and esophagitis. Biopsy reported mild chronic esophagitis. Currently patient denies any abdominal pain, no nausea or vomiting. Again just states that he will bring phlegm and sputum multiple times throughout the day. This has been going on for years. He denies any epigastric pain, again no difficulty with swallowing and has tolerated his regular breakfast this morning. 09/08/2023 Patient seen and examined today as a follow-up. States that he is having no problems swallowing. He is able to eat and keep down food. Denies any abdomi nal pain, nausea or vomiting Objective - Vital Signs Vital signs: Vital Signs Temp 98.4 F 09/07/23 20:00 Pulse 84 09/08/23 04:55 Resp 16 09/08/23 04:55 BP 145/78 09/08/23 04:55 Pulse Ox 98 09/08/23 04:55 FiO2 Intake & Output 09/07/23 09/07/23 09/08/23 06:59 18:59 06:59 Intake Total 1194 Output Total 200 350 Balance -200 844 Weight 65.317 kg Intake: Intake, IV Titration 600 Amount Sodium Chloride 0.9% 1, 600 000 ml @ 75 mls/hr IV . [id number] [facility] Rx#:[id number] Oral 594 Output: Urine 200 350 Other: Voiding Method Urinal Urinal Urinal # Voids 1 - Exam General appearance: The patient is alert, oriented, appears in no acute distress. HET: Head is normocephalic and atraumatic. Conjunctiva pink. Sclera anicteric. Neck: Supple without lymphadenopathy. Abdomen: Soft, nontender, nondistended with bowel sounds. No guarding or rigidity. Extremities: Normal skin color and turgor. No pedal edema Skin: No rashes, no jaundice Neurological: No focal deficits. Alert and oriented. - Labs CBC & Chem 7: 09/06/23 14:53 09/07/23 08:05 Labs: Abnormal Lab Results - Last 24 Hours (Table) 09/07/23 Range/Units 08:05 Chloride 108 H (98-107) mmol/L BUN 47 H (9-20) mg/dL Glucose 122 H (74-99) mg/dL ALT 79 H (4-49) U/L Total Protein 5.5 L (6.3-8.2) g/dL Albumin 3.0 L (3.5-5.0) g/dL Cortisol 25.8 H (3.1-22.4) UG/DL Assessment and Plan (1) Vomiting Narrative/Plan: 67-year-old male coming in for weakness and lightheadedness possibly dehydrated. With ongoing complaints of chronic vomiting for many years. However patient does not describe it as vomiting of food but that he is bringing up mucus and phlegm. He states that it woke him up multiple times during the day. He does have a history of paraesophageal hernia with repair and Niesen fundoplication. He underwent recent endoscopic evaluation less than a month ago with findings of moderate hiatal hernia and mild esophagitis. Prior to that he had a previous scope done in April 2023 again moderate hiatal hernia and some gastritis. There has not been any esophageal stricture. Patient states that he is eating well no difficulty with swallowing and has a good appetite. He does not have nausea and does not feel nauseous prior to bringing up the sputum and phlegm. Unclear etiology however patient does not require any further gastroenterology workup. Discussed with primary medical team consider ear nose and throat for increased mucus secretions. Patient does state that he was supposed to have an outpatient modified barium swallow however he did not get it done due to his episodes of vomiting phlegm. Also supposed to have ENT evaluation outpatient. Will order modified barium swallow. Current Visit: Yes Status: Acute Code(s): R11.10 - VOMITING, UNSPECIFIED SNOMED Code(s): 217878701 (2) Weakness Current Visit: Yes Status: Acute Code(s): R53.1 - WEAKNESS SNOMED Code(s): 95243041 (3) Hiatal hernia Current Visit: Yes Status: Acute Code(s): K44.9 - DIAPHRAGMATIC HERNIA WITHOUT OBSTRUCTION OR GANGRENE SNOMED Code(s): 11904474 (4) History of Rfederick fundoplication Current Visit: Yes Status: Acute Code(s): Z98.890 - OTHER SPECIFIED POSTPROCEDURAL STATES SNOMED Code(s): 583549145 Plan: 1. Continue symptomatic and supportive care 2. Patient had recent upper endoscopy on 08/10/2023 with findings of moderate hiatal hernia and mild esophagitis and has actually had previous 1 in April 2023 again not finding any kind of esophageal stricture or narrowing. 3. Continue diet as tolerated 4. Protonix 40 mg for GI prophylaxis 5. No plans on endoscopic evaluation. Will order modified barium swallow. 6. Consider ear nose and throat consultation for increased mucus and phlegm production Thank you for this consultation, patient can follow-up with gastroenterology as an outpatient to follow-up on barium swallow if needed. Dr. Kb Odell I agree with the dictator's note, documented as a scribe by Celia Walters.
[2023-09-08 09:49] LABS: ALT 65 U/L (4-49); AST 34 U/L (17-59); African American GFR (CKD) >90 (>60 ml/min/1.73 sqM); Albumin 2.7 g/dL (3.5-5.0); Alkaline Phosphatase 97 U/L (38-126); Anion Gap 6 mmol/L; Bilirubin, Delta 0.3 mg/dL (0.0-0.2); Bilirubin,Unconjugated 0.4 mg/dL (0.0-1.1); Blood Urea Nitrogen 28 mg/dL (9-20); Calcium 8.3 mg/dL (8.4-10.2); Carbon Dioxide 24 mmol/L (22-30); Chloride 110 mmol/L (98-107); Glucose 87 mg/dL (74-99); Non-African American GFR(CKD) >90 (>60 ml/min/1.73 sqM); Potassium 3.8 mmol/L (3.5-5.1); Sodium 140 mmol/L (137-145); Total Bilirubin 0.7 mg/dL (0.2-1.3); Total Protein 5.1 g/dL (6.3-8.2)
--- NOTE | 2023-09-08 12:07 | P.PN ---
Subjective HISTORY OF PRESENT ILLNESS: This is a 67-year-old male with a past medical history significant for hypertension, anxiety, depression, former nicotine dependence, previous history of alcohol abuse, and current marijuana use. Patient follows in the office with Dr. Mckeon. We have been asked to see the patient in consultation for abnormal troponins. Patient examined at the bedside. Patient presented to the hospital with a chief complaint of nausea and vomiting. Patient was hospitalized last month for similar symptoms and underwent EGD with Dr. Pavon revealing moderate size hiatal hernia and esophagitis. The patient denies having any jabari st pain or pressure. He denies any shortness of breath. Vital signs are stable. DIAGNOSTICS: - EKG reveals sinus mechanism with diffuse T wave inversions, unchanged from previous EKG. - Chest xray negative for acute process. - Laboratory data: WBC 12.6. Hemoglobin 15.1. Platelet count 315. Sodium 141. Potassium 3.6. BUN 47. Creatinine 1.19. AST 44. ALT 79. Troponin 0.073. 0.050 - Current home cardiac medications include lisinopril 5 mg daily and metoprolol tartrate 12.5 mg twice a day. - Most recent echocardiogram obtained in August 2023 reveals ejection fraction 60 to 65%. - Cardiac catheterization history: 2019 revealing normal coronary arteries 09/08/2023 Patient examined this morning at the bedside. He is sitting up in the chair. Patient denies chest pain or pressure. He denies shortness of breath. Echocardiogram completed revealing ejection fraction 60 to 65%. PHYSICAL EXAM: VITAL SIGNS: Reviewed. GENERAL: Well-developed in no acute distress. HEENT: Head is normocephalic. Pupils are equal, round. Sclerae anicteric. Mucous membranes of the mouth are moist. Neck supple. No JVD or thyromegaly LUNGS: Respirations even and unlabored. Lungs essentially clear to auscultation bilaterally. HEART: Regular rate and rhythm. S1 and S2 heard. Systolic murmur noted ABDOMEN: Soft. Nondistended. Nontender. EXTREMITIES: Normal range of motion. No clubbing or cyanosis. Peripheral pulses intact. No lower extremity edema NEUROLOGIC: Awake and alert. Oriented x 3. ASSESSMENT: Nausea and vomiting Acute kidney injury, resolved Abnormal troponins, flat, not suggestive of acute coronary syndrome, likely secondary to GERONIMO History of mitral regurgitation Hypertension Anxiety Depression Former nicotine dependence Current marijuana use History of alcoholism PLAN: Continue current cardiac medications Recommend abstinence from alcohol No further recommendations from a cardiac standpoint Will sign off. Please reconsult if needed. Nurse practitioner note has been reviewed by physician. Signing provider agrees with the documented findings, assessment, and plan of care documented by SKATING R[employer] MANAGER as a scribe. Objective - Vital Signs Vital signs: Vital Signs Temp 98.4 F 09/07/23 20:00 Pulse 67 09/08/23 08:00 Resp 16 09/08/23 08:00 BP 142/86 09/08/23 08:00 Pulse Ox 97 09/08/23 08:00 FiO2 Intake & Output 09/07/23 09/08/23 09/08/23 18:59 06:59 18:59 Intake Total 1194 Output Total 350 225 Balance 844 -225 Intake: Intake, IV Titration 600 Amount Sodium Chloride 0.9% 1, 600 000 ml @ 75 mls/hr IV . [id number] [facility] Rx#:[id number] Oral 594 Output: Urine 350 225 Other: Voiding Method Urinal Urinal Urinal - Labs CBC & Chem 7: 09/06/23 14:53 09/08/23 06:34 Labs: Abnormal Lab Results - Last 24 Hours (Table) 09/07/23 09/08/23 Range/Units 08:05 06:34 Chloride 110 H (98-107) mmol/L BUN 28 H (9-20) mg/dL Calcium 8.3 L (8.4-10.2) mg/dL Delta Bilirubin 0.3 H (0.0-0.2) mg/dL ALT 65 H (4-49) U/L Total Protein 5.1 L (6.3-8.2) g/dL Albumin 2.7 L (3.5-5.0) g/dL Cortisol 25.8 H (3.1-22.4) UG/DL
--- NOTE | 2023-09-08 12:18 | FL ---
Modified barium swallow. HISTORY: Dysphagia. Modified barium swallow was performed with the department of speech pathology. The patient was prese nted with various consistencies of barium. There is no evidence for aspiration. Transient penetration noted. [facility]. Impression: No evidence for aspiration.
[2023-09-08 12:45] LABS: Basophils % (A) 0 %; Eosinophils # (A) 0.1 k/uL (0-0.7); Eosinophils % (A) 1 %; HCT 45.1 % (39.0-53.0); HGB 14.4 gm/dL (13.0-17.5); Lymphocytes # (A) 1.2 k/uL (1.0-4.8); Lymphocytes % (A) 13 %; MCH 30.9 pg (25.0-35.0); MCHC 31.9 g/dL (31.0-37.0); Mean Platelet Volume 9.2; Monocytes # (A) 0.5 k/uL (0-1.0); Monocytes % (A) 5 %; Neutrophils # (A) 7.2 k/uL (1.3-7.7); Neutrophils % (A) 79 %; Platelet Count 239 k/uL (150-450); RBC 4.65 m/uL (4.30-5.90); RDW 14.2 % (11.5-15.5); WBC 9.1 k/uL (3.8-10.6)
[2023-09-08 12:49] LABS: MCV 96.9 fL (80.0-100.0)
[2023-09-08 12:53] VITALS: BP 149/86; PULSE 78
--- NOTE | 2023-09-08 13:31 | P.PN ---
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 This time he presents because of recurrent fall and. Patient states that he has been falling almost every day for the last week. Yesterday his daughter and son-in-law got worried and asked him to come to emergency room. Currently he is fully awake oriented to place person. He denies any pain. Patient states that he feels generally dizzy when he falls down, sometimes he passes out. Currently patient feels a lot of nausea Patient has somewhat poor appetite No abdominal pain, no diarrhea, patient states he does not have bowel movement in 4 to 5 days No urinary complaints No chest pain or dyspnea. Has little cough He has headache but not currently, no weakness or numbness. At baseline he walks at home he has a cane but he does not use it He denies smoking alcohol. He uses marijuana frequently about once or twice a week for years, patient was counseled to quit smoking marijuana as it might contribute to his daily vomiting Patient is afebrile Labs reviewed he has mild leukocytosis of 12.6, rest of CBC is unremarkable Creatinine is elevated 1.8 with baseline 0.6 Liver enzymes mildly elevated Troponin is elevated as well 0.07 and 0.05. EKG showed normal sinus rhythm at [address] changes but there is inverted T wave in the inferior and lateral leads, which is seen in old EKG from 08/28/2023 QTc 456 Chest x-ray is negative for acute process TSH 1.8 Urine analysis negative for infection Patient received 2.5 L of normal saline in emergency room His lisinopril 5 mg and metoprolol 12.5 mg were held in the emergency room 09/07. Patient seen and examined. No acute issues overnight. Patient eating without any problems. REVIEW OF SYSTEMS: CONSTITUTIONAL: No fever, no malaise,. CARDIOVASCULAR: No chest pain, no palpitations, no syncope. PULMONARY: No shortness of breath, no cough, GASTROINTESTINAL: No diarrhea, no nausea, no vomiting, no abdominal pain. NEUROLOGICAL: No headaches, no weakness, PHYSICAL EXAMINATION: GENERAL: The patient is alert and oriented x3, not in any acute distress. Well developed, well nourished. HEENT: Pupils are round and equally reacting to light. EOMI. No scleral icterus. No conjunctival pallor. Normocephalic, atraumatic. No pharyngeal erythema. No thyromegaly. CARDIOVASCULAR: S1 and S2 present. No murmurs, rubs, or gallops. PULMONARY: Chest is clear to auscultation, no wheezing or crackles. ABDOMEN: Soft, nontender, nondistended, normoactive bowel sounds. No palpable organomegaly. MUSCULOSKELETAL: No joint swelling or deformity. EXTREMITIES: No cyanosis, clubbing, or pedal edema. NEUROLOGICAL: Gross neurological examination did not reveal any focal deficits. SKIN: No rashes. Assessment and plan Recurrent fall associated with syncope Nausea and vomiting Acute kidney injury, resolved Abnormal troponins, flat, not suggestive of acute coronary syndrome, likely secondary to GERONIMO History of mitral regurgitation Hypertension Anxiety Depression Former nicotine dependence Current marijuana use History of alcoholism Monitor vital signs Monitor CBC Monitor CMP Continue telemetry monitoring GI evaluated patient, recommended no plan for any endoscopy at this time, patient recent endoscopy in 08/10/2023 with findings of moderate hiatal hernia and mild esophagitis and has actually had previous 1 in April 2023 again not finding any kind of esophageal stricture or narrowing Cardiology also eval the patient, recommend doing 2D echo and continue with current cardiac medications Labs and medication were reviewed.. Continue same treatment. Continue with symptomatic treatment. Resume home medication. Monitor labs and vitals. DVT and GI prophylaxis. Further recommendations as per clinical course of the patient Dictation was produced using [employer] dictation software. please excuse any gramm atical, word or spelling errors. Objective - Vital Signs Vital signs: Vital Signs Temp 98.4 F 09/07/23 20:00 Pulse 67 09/08/23 08:00 Resp 16 09/08/23 08:00 BP 142/86 09/08/23 08:00 Pulse Ox 97 09/08/23 08:00 FiO2 Intake & Output 09/07/23 09/08/23 09/08/23 18:59 06:59 18:59 Intake Total 1194 Output Total 350 225 Balance 844 -225 Intake: Intake, IV Titration 600 Amount Sodium Chloride 0.9% 1, 600 000 ml @ 75 mls/hr IV . [id number] [facility] Rx#:[id number] Oral 594 Output: Urine 350 225 Other: Voiding Method Urinal Urinal - Labs CBC & Chem 7: 09/06/23 14:53 09/07/23 08:05 Labs: Abnormal Lab Results - Last 24 Hours (Table) 09/07/23 Range/Units 08:05 Chloride 108 H (98-107) mmol/L BUN 47 H (9-20) mg/dL Glucose 122 H (74-99) mg/dL ALT 79 H (4-49) U/L Total Protein 5.5 L (6.3-8.2) g/dL Albumin 3.0 L (3.5-5.0) g/dL Cortisol 25.8 H (3.1-22.4) UG/DL
--- NOTE | 2023-09-08 14:40 | P.DS ---
Providers Date of admission: 09/06/23 17:34 Expected date of discharge: 09/08/23 Attending physician: Magda Bowie Consults: 09/07/23 07:40 Consult Physician Routine Consulting Provider: Rica Odell Consult Reason/Comments: vomiting Do you want consulting provider notified?: Yes Primary care physician: Misael Hopkins Hospital Course: Discharge diagnoses; Recurrent fall associated with syncope Nausea and vomiting Acute kidney injury, resolved Abnormal troponins, flat, not suggestive of acute coronary syndrome, likely secondary to GERONIMO History of mitral regurgitation Hypertension Anxiety Depression Former nicotine dependence Current marijuana use History of alcoholism Hospital course; This is a pleasant 67 years old male with past medical history of multiple medical problems as below Patient states that at baseline he has vomiting chronically for years, he states that he threw up about 3-5 times per day, and 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 This time he presents because of recurrent fall and. Patient states that he has been falling almost every day for the last week. Yesterday his daughter and son-in-law got worried and asked him to come to emergency room. Currently he is fully awake oriented to place person. He denies any pain. Patient states that he feels generally dizzy when he falls down, sometimes he passes out. Currently patient feels a lot of nausea Patient has somewhat poor appetite No abdominal pain, no diarrhea, patient states he does not have bowel movement in 4 to 5 days No urinary complaints No chest pain or dyspnea. Has little cough He has headache but not currently, no weakness or numbness. At baseline he walks at home he has a cane but he does not use it He denies smoking alcohol. He uses marijuana frequently about once or twice a week for years, patient was counseled to quit smoking marijuana as it might contribute to his daily vomiting Patient is afebrile Labs reviewed he has mild leukocytosis of 12.6, rest of CBC is unremarkable Creatinine is elevated 1.8 with baseline 0.6 Liver enzymes mildly elevated Troponin is elevated as well 0.07 and 0.05. EKG showed normal sinus rhythm at [address] changes but there is inverted T wave in the inferior and lateral leads, which is seen in old EKG from 08/28/2023 QTc 456 Chest x-ray is negative for acute process TSH 1.8 Urine analysis negative for infection Patient received 2.5 L of normal saline in emergency room His lisinopril 5 mg and metoprolol 12.5 mg were held in the emergency room 09/07. Patient seen and examined. No acute issues overnight. Patient eating without any problems. GI evaluated patient, recommended no plan for any endoscopy at this time, patient recent endoscopy in 08/10/2023 with findings of moderate hiatal hernia and mild esophagitis and has actually had previous 1 in April 2023 again not finding any kind of esophageal stricture or narrowing Cardiology also eval the patient, recommend doing 2D echo and continue with current cardiac medications Being discharged in stable condition PHYSICAL EXAMINATION: GENERAL: The patient is alert and oriented x3, not in any acute distress. Well developed, well nourished. HEENT: Pupils are round and equally reacting to light. EOMI. No scleral icterus. No conjunctival pallor. Normocephalic, atraumatic. No pharyngeal erythema. No thyromegaly. CARDIOVASCULAR: S1 and S2 present. No murmurs, rubs, or gallops. PULMONARY: Chest is clear to auscultation, no wheezing or crackles. ABDOMEN: Soft, nontender, nondistended, normoactive bowel sounds. No palpable organomegaly. MUSCULOSKELETAL: No joint swelling or deformity. EXTREMITIES: No cyanosis, clubbing, or pedal edema. NEUROLOGICAL: Gross neurological examination did not reveal any focal deficits. SKIN: No rashes. Dictation was produced using [employer] dictation software. please excuse any grammatical, word or spelling errors. Plan - Discharge Summary Discharge Rx Participant: No New Discharge Prescriptions: New Pantoprazole [Protonix] 40 mg PO -BRKFST #30 tab Continue Metoprolol Tartrate [Lopressor] 12.5 mg PO BID busPIRone HCL [Buspar] 7.5 mg PO BID Metoclopramide HCl [Reglan] 5 mg PO TID #21 tablet lisinopriL [Zestril] 5 mg PO DAILY #30 tab Sertraline [Zoloft] 25 mg PO DAILY Nitroglycerin Sl Tabs [Nitrostat] 0.4 mg SUBLINGUAL Q5M PRN PRN Reason: Chest Pain Discharge Medication List Metoprolol Tartrate [Lopressor] 12.5 mg PO BID 08/20/18 [History] lisinopriL [Zestril] 5 mg PO DAILY #30 tab 11/06/22 [Rx] Nitroglycerin Sl Tabs [Nitrostat] 0.4 mg SUBLINGUAL Q5M PRN 08/08/23 [History] Sertraline [Zoloft] 25 mg PO DAILY 08/08/23 [History] busPIRone HCL [Buspar] 7.5 mg PO BID 08/08/23 [History] Metoclopramide HCl [Reglan] 5 mg PO TID #21 tablet 09/02/23 [Rx] Pantoprazole [Protonix] 40 mg PO AC-BRKFST #30 tab 09/08/23 [Rx] Follow up Appointment(s)/Referral(s): Misael Hopkins MD [Primary Care Provider] - 1-2 days Rica Odell MD [STAFF PHYSICIAN] - [facility] [NON-STAFF] - Discharge Disposition: HOME SELF-CARE
== END 2023-09-08 15:05 | disposition home or self-care (01) ==
LOC: EC 14:30 → 3SCARD 17:34 → INTOOBSV 17:34 → 3SCARD 18:11
PROVIDERS: ADMIT Hospitalist; ATTEND Hospitalist
DX: R55 Syncope and collapse (principal); N17.9 Acute kidney failure, unspecified; R79.89 Other specified abnormal findings of blood chemistry; E86.0 Dehydration; R11.2 Nausea with vomiting, unspecified; R53.1 Weakness; K44.9 Diaphragmatic hernia without obstruction or gangrene; I25.10 Atherosclerotic heart disease of native coronary artery without angina pectoris; E78.5 Hyperlipidemia, unspecified; I10 Essential (primary) hypertension; K21.9 Gastro-esophageal reflux disease without esophagitis; F32.A Depression, unspecified; F41.9 Anxiety disorder, unspecified; F12.90 Cannabis use, unspecified, uncomplicated; F10.21 Alcohol dependence, in remission; R29.6 Repeated falls; R74.01 Elevation of levels of liver transaminase levels; M06.9 Rheumatoid arthritis, unspecified; G43.909 Migraine, unspecified, not intractable, without status migrainosus; J45.909 Unspecified asthma, uncomplicated; Z86.73 Personal history of transient ischemic attack (TIA), and cerebral infarction without residual deficits; Z87.891 Personal history of nicotine dependence; Z79.899 Other long term (current) drug therapy
CPT/HCPCS: 36415; 71046; 74230; 80048; 80053; 80076; 81003; 82533; 83605; 83735; 84443; 84484; 85025; 85610; 85730; 93005; 93308; 96372; 96374; 96376; 99285

== ENCOUNTER 2023-09-20 14:30 | Inpatient (IN) | payer MEDICARE, OTHER ==
--- NOTE | 2023-09-20 15:06 | ED ---
General Adult HPI - General Source: patient, EMS, RN notes reviewed, old records reviewed Mode of arrival: EMS Limitations: no limitations - History of Present Illness Location: abdomen <Harshad Zuleta - Last Filed: 09/20/23 15:08> <Je Ureña - Last Filed: 09/20/23 17:51> - General Chief complaint: Recheck/Abnormal Lab/Rx Stated complaint: Failure To Thrive Time Seen by Provider: 09/20/23 14:51 - History of Present Illness Initial comments: Patient is a 67-year-old male who presents emergency department complaining of nausea and vomiting. Has a history of asthma, CAD, hypertension, chronic nausea and vomiting. States has been throwing up for multiple days to weeks. Throws up on a daily basis. Patient states he ran out of his Reglan for his multiple days and has been throwing up more often. Presents for further evaluation at this time. Denies any chest pain. Denies any abdominal pain. Denies any diarrhea or constipation. Presents for further evaluation. (Harshad Zuleta) - Related Data Home Medications Medication Instructions Recorded Confirmed Metoprolol Tartrate [Lopressor] 12.5 mg PO BID 08/20/18 09/20/23 Nitroglycerin Sl Tabs [Nitrostat] 0.4 mg SUBLINGUAL Q5M PRN 08/08/23 09/20/23 Sertraline [Zoloft] 25 mg PO DAILY 08/08/23 09/20/23 busPIRone HCL [Buspar] 7.5 mg PO BID 08/08/23 09/20/23 Previous Rx's Medication Instructions Recorded lisinopriL [Zestril] 5 mg PO DAILY #30 tab 11/06/22 Pantoprazole [Protonix] 40 mg PO AC-BRKFST #30 tab 09/08/23 Allergies Allergy/AdvReac Type Severity Reaction Status Date / Time No Known Allergies Allergy Verified 09/20/23 16:35 Review of Systems ROS Other: All systems not noted in ROS Statement are negative. <Harshad Zuleta - Last Filed: 09/20/23 15:08> ROS Other: All systems not noted in ROS Statement are negative. <Je Ureña - Last Filed: 09/20/23 17:51> ROS Statement: Those systems with pertinent positive or pertinent negative responses have been documented in the HPI. Review of Systems: CONST: Denies fever EYES: Denies blurry vision ENT: Denies nasal congestion C/V: Denies Chest pain RESP: Denies shortness of breath GI: Endorses nausea : Denies dysuria SKIN: Denies rash. MSK: Denies joint pain. NEURO: Denies headache (Harshad Zuleta) Past Medical History Past Medical History: Asthma, Coronary Artery Disease (CAD), Chest Pain / Angina, CVA/TIA, GERD/Reflux, Hyperlipidemia, Hypertension, Pneumonia, Rheumatoid Arthritis (RA) Additional Past Medical History / Comment(s): MIGRAINES, HEART MURMUR, hx HIATAL HERNIA, ANEMIA, one dr told him he had a stroke at one time-no effects, varicose veins, history of incarcerated per esophageal hernia, status post robotic-assisted paraesophageal hernia repair and Frederick fundoplication on 04/12/2022. History of Any Multi-Drug Resistant Organisms: None Reported Past Surgical History: Heart Catheterization, Hernia Repair, Orthopedic Surgery Additional Past Surgical History / Comment(s): Lt achilles tendon,RT SHOULDER surgery, RT ACHILLES TENDON reattached, HEMORRHOIDECTOMY, 13 FATTY TUMORS removed. left hand index finger surgery after injury, EGD WITH DILATION, paraesophageal hernia repair with Frederick fundoplication on 04/12/2022. Past Anesthesia/Blood Transfusion Reactions: No Reported Reaction Additional Past Anesthesia/Blood Transfusion Reaction / Comment(s): no hx blood transfusion Past Psychological History: Anxiety, Depression Smoking Status: Former smoker Past Alcohol Use History: None Reported Past Drug Use History: Marijuana - Past Family History Mother Family Medical History: Cancer Father Additional Family Medical History / Comment(s): thinks aneurysm <Harshad Zuleta - Last Filed: 09/20/23 15:08> General Exam Limitations: no limitations <Harshad Zuleta - Last Filed: 09/20/23 15:08> - General Exam Comments Initial Comments: General: Appears in no acute distress. HEAD: Normal with no signs of head trauma. EYES: PERRLA, EOMI, conjunctiva normal, no discharge. ENT: Hearing grossly intact, normal oropharynx. Dry mucous membranes. RESPIRATORY: Course breath sounds bilaterally. C/V: Tachycardic with regular rhythm. S1 and S2 auscultated. Peripheral pulses 2+ intact throughout. ABD: Abd is soft, nontender, nondistended EXT: Normal range of motion, no obvious deformity SKIN: No rashes or lesions observed on exposed skin. NEURO: Alert and oriented x 4. (Harshad Zuleta) Course Vital Signs 09/20/23 09/20/23 14:33 15:48 Temperature 97.4 F L Pulse Rate 117 H 103 H Respiratory 18 16 Rate Blood Pressure 128/100 110/85 O2 Sat by Pulse 95 95 Oximetry Medical Decision Making - EKG Data -: EKG Interpreted by Me <Harshad Zuleta - Last Filed: 09/20/23 15:08> - Lab Data Result diagrams: 09/20/23 15:48 09/20/23 15:22 <Je Ureña - Last Filed: 09/20/23 17:51> - Medical Decision Making Was pt. sent in by a medical professional or institution (, PA, PASSENGER TIRE BUILDER, urgent care, hospital, or fpc...) When possible be specific @ -No Did you speak to anyone other than the patient for history (EMS, parent, family, police, friend...)? What history was obtained from this source @ -No Did you review nursing and triage notes (agree or disagree)? Why? @ -I reviewed and agree with nursing and triage notes Were old charts reviewed (outside hosp., previous admission, EMS record, old EKG, old radiological studies, urgent care reports/EKG's, fpc records)? Report findings @ -Old charts were reviewed. Differential Diagnosis (chest pain, altered mental status, abdominal pain women, abdominal pain men, vaginal bleeding, weakness, fever, dyspnea, syncope, he adache, dizziness, GI bleed, back pain, seizure, CVA, palpatations, mental health, musculoskeletal)? @ -Differential Weakness: Hypoglycemia, shock, sepsis, hyponatremia, anemia, infection, MO, ETOH, adverse medicine reaction, overdose, stroke, this is not meant to be an all-inclusive list. EKG interpreted by me (3pts min.). @ -As above X-rays interpreted by me (1pt min.). @ -Pending CT interpreted by me (1pt min.). @ -None done U/S interpreted by me (1pt. min.). @ -None done What testing was considered but not performed or refused? (CT, X-rays, U/S, labs)? Why? @ -None What meds were considered but not given or refused? Why? @ -None Did you discuss the management of the patient with other professionals (professionals i.e. , PA, PASSENGER TIRE BUILDER, lab, RT, psych nurse, psychotherapist social worker, jet wiper, t eacher, commissary officer, case filler)? Give summary @ -No Was smoking cessation discussed for >3mins.? @ -No Was critical care preformed (if so, how long)? @ -No Were there social determinants of health that impacted care today? How? (Homelessness, low income, unemployed, alcoholism, drug addiction, transportation, low edu. Level, literacy, decrease access to med. care, alf, rehab)? @ -No Was there de-escalation of care discussed even if they declined (Discuss DNR or withdrawal of care, Hospice)? DNR status @ -No What co-morbidities impacted this encounter? (DM, HTN, Smoking, COPD, CAD, Cancer, CVA, ARF, Chemo, Hep., AIDS, mental health diagnosis, sleep apnea, morbid obesity)? @ -None Was patient admitted / discharged? Hospital course, mention meds given and route, prescriptions, significant lab abnormalities, going to OR and other pertinent info. @ -Based on the patient's presentation and physical exam, presents with dehydration as well as chronic nausea and vomiting. Ran out of his Reglan at home. Has no other acute symptoms at this time other than coughing. Denies chest pain or abdominal pain. We will obtain general workup. Viral swabs will be obtained. Patient be symptomatically treated with IV fluids, Protonix, Zofran. Patient was in agreement this plan. EKG shows nonspecific ST segment changes which appear to be chronic based on prior EKGs from August 2023. At this time it is the end of my shift. Patient signed out to oncoming emergency department physician Dr. Ureña pending results of workup. Undiagnosed new problem with uncertain prognosis? @ -No Drug Therapy requiring intensive monitoring for toxicity (Heparin, Nitro, Insulin, Cardizem)? @ -No Were any procedures done? @ -No (Harshad Zuleta) Patient care signed out to me by previous shift physician, Dr. Zuleta. Briefly, patient is 67-year-old male presents to the emergency department for vomiting, possible dehydration failure to thrive. He apparently was recently admitted to the hospital. He was discharged on September 07. Labs resulted. Mild leukocytosis 13.1. Coag panel within acceptable limits. Metabolic panel shows hypernatremia 151 with alkalosis. Elevated BUN to creatinine ratio. Lactic acidosis 4.4. Troponin of 0.151. Chest x-ray is nonacute. Patient reevaluated bedside with improvement of symptoms. He is questioned again about hi any chest symptoms. He states that he does not have any pressure. There is no associated diaphoresis or radiation to his shoulders or arms. He was giving nausea medications Protonix with improvement of symptoms. Patient be admitted with consultation to cardiology, gastroenterology and nephrology. Case discussed with hospitalist midlevel provider who is agreeable with admission. Diagnosis/symptom? @ -Acute intractable nausea and vomiting complicated by metabolic derangement, elevated troponin Acute, or Chronic, or Acute on Chronic? @ -Acute on chronic Side effects of treatment? @ -None Exacerbation, Progression, or Severe Exacerbation] @ -No Poses a threat to life or bodily function? @ -No (Je Ureña) - Lab Data Lab Results 09/20/23 09/20/23 09/20/23 Range/Units 15:22 15:22 15:22 WBC (3.8-10.6) k/uL RBC (4.30-5.90) m/uL Hgb (13.0-17.5) gm/dL Hct (39.0-53.0) % MCV (80.0-100.0) fL MCH (25.0-35.0) pg MCHC (31.0-37.0) g/dL RDW (11.5-15.5) % Plt Count (150-450) k/uL MPV Neutrophils % % Lymphocytes % % Monocytes % % Eosinophils % % Basophils % % Neutrophils # (1.3-7.7) k/uL Lymphocytes # (1.0-4.8) k/uL Monocytes # (0-1.0) k/uL Eosinophils # (0-0.7) k/uL Basophils # (0-0.2) k/uL PT (10.0-12.5) sec INR (<1.2) APTT (22.0-30.0) sec Sodium 151 H (137-145) mmol/L Potassium 4.5 (3.5-5.1) mmol/L Chloride 108 H (98-107) mmol/L Carbon Dioxide 31 H (22-30) mmol/L Anion Gap 12 mmol/L BUN 40 H (9-20) mg/dL Creatinine 1.14 (0.66-1.25) mg/dL Est GFR (CKD-EPI)AfAm 78 (>60 ml/min/1.73 sqM) Est GFR (CKD-EPI)NonAf 67 (>60 ml/min/1.73 sqM) Glucose 135 H (74-99) mg/dL Plasma Lactic Acid Jack 4.4 H* (0.7-2.0) mmol/L Calcium 9.6 (8.4-10.2) mg/dL Total Bilirubin 1.0 (0.2-1.3) mg/dL AST 108 H (17-59) U/L ALT 92 H (4-49) U/L Alkaline Phosphatase 137 H (38-126) U/L Troponin I (0.000-0.034) ng/mL Total Protein 6.5 (6.3-8.2) g/dL Albumin 3.7 (3.5-5.0) g/dL Amylase 141 H (30-110) U/L Lipase 144 (23-300) U/L Influenza Type A (PCR) Not Detected (Not Detectd) Influenza Type B (PCR) Not Detected (Not Detectd) RSV (PCR) Not Detected (Not Detectd) SARS-CoV-2 (PCR) Not Detected (Not Detectd) 09/20/23 09/20/23 09/20/23 Range/Units 15:48 15:48 15:48 WBC 13.1 H (3.8-10.6) k/uL RBC 4.91 (4.30-5.90) m/uL Hgb 15.4 (13.0-17.5) gm/dL Hct 46.4 (39.0-53.0) % MCV 94.3 (80.0-100.0) fL MCH 31.3 (25.0-35.0) pg MCHC 33.2 (31.0-37.0) g/dL RDW 14.6 (11.5-15.5) % Plt Count 368 (150-450) k/uL MPV 9.2 Neutrophils % 87 % Lymphocytes % 8 % Monocytes % 5 % Eosinophils % 0 % Basophils % 0 % Neutrophils # 11.4 H (1.3-7.7) k/uL Lymphocytes # 1.0 (1.0-4.8) k/uL Monocytes # 0.6 (0-1.0) k/uL Eosinophils # 0.0 (0-0.7) k/uL Basophils # 0.0 (0-0.2) k/uL PT 13.0 H (10.0-12.5) sec INR 1.2 H (<1.2) APTT 23.8 (22.0-30.0) sec Sodium (137-145) mmol/L Potassium (3.5-5.1) mmol/L Chloride (98-107) mmol/L Carbon Dioxide (22-30) mmol/L Anion Gap mmol/L BUN (9-20) mg/dL Creatinine (0.66-1.25) mg/dL Est GFR (CKD-EPI)AfAm (>60 ml/min/1.73 sqM) Est GFR (CKD-EPI)NonAf (>60 ml/min/1.73 sqM) Glucose (74-99) mg/dL Plasma Lactic Acid Jack (0.7-2.0) mmol/L Calcium (8.4-10.2) mg/dL Total Bilirubin (0.2-1.3) mg/dL AST (17-59) U/L ALT (4-49) U/L Alkaline Phosphatase (38-126) U/L Troponin I 0.151 H* (0.000-0.034) ng/mL Total Protein (6.3-8.2) g/dL Albumin (3.5-5.0) g/dL Amylase (30-110) U/L Lipase (23-300) U/L Influenza Type A (PCR) (Not Detectd) Influenza Type B (PCR) (Not Detectd) RSV (PCR) (Not Detectd) SARS-CoV-2 (PCR) (Not Detectd) - EKG Data EKG Comments: 12-lead Electrocardiogram Interpretation Note EKG was reviewed and interpreted by myself. 12-lead ECG performed at 1440 is interpreted by me as revealing tachycardia at a rate of 108 beats per minute. Kopperl is normal. OK interval is 102 ms, QRS duration is 78 ms, QTc is [address] segment changes present which seem chronic as they are seen on patient's prior EKGs from August 2023. R wave progression across the precordium was satisfactory. By my interpretation this EKG is non-diagnostic for acute ischemia. (Harshad Zuleta) Disposition <Harshad Zuleta - Last Filed: 09/20/23 15:08> Decision Time: 17:51 <Je Ureña - Last Filed: 09/20/23 17:51> Clinical Impression: Intractable vomiting Disposition: ADMITTED IP TO THIS HOSP Condition: Fair Referrals: Misael Hopkins MD [Primary Care Provider] - 1-2 days
[2023-09-20] MEDS: SODIUM CHLORIDE 0.9% 1,000 ML IV STA (15:13)
[2023-09-20] MEDS: ONDANSETRON 4 MG/2 ML VIAL IVP STA (15:16)
[2023-09-20] MEDS: PANTOPRAZOLE 40 MG/10 ML VIAL IVP STA (15:17)
[2023-09-20 15:49] LABS: ALT 92 U/L (4-49); AST 108 U/L (17-59); African American GFR (CKD) 78 (>60 ml/min/1.73 sqM); Albumin 3.7 g/dL (3.5-5.0); Alkaline Phosphatase 137 U/L (38-126); Amylase 141 U/L (30-110); Anion Gap 12 mmol/L; Blood Urea Nitrogen 40 mg/dL (9-20); Calcium 9.6 mg/dL (8.4-10.2); Carbon Dioxide 31 mmol/L (22-30); Chloride 108 mmol/L (98-107); Glucose 135 mg/dL (74-99); Lipase 144 U/L (23-300); Non-African American GFR(CKD) 67 (>60 ml/min/1.73 sqM); Potassium 4.5 mmol/L (3.5-5.1); Sodium 151 mmol/L (137-145); Total Protein 6.5 g/dL (6.3-8.2)
[2023-09-20 16:05] LABS: Basophils % (A) 0 %; Eosinophils % (A) 0 %; HCT 46.4 % (39.0-53.0); HGB 15.4 gm/dL (13.0-17.5); Lymphocytes % (A) 8 %; MCH 31.3 pg (25.0-35.0); MCHC 33.2 g/dL (31.0-37.0); MCV 94.3 fL (80.0-100.0); Mean Platelet Volume 9.2; Monocytes # (A) 0.6 k/uL (0-1.0); Monocytes % (A) 5 %; Neutrophils # (A) 11.4 k/uL (1.3-7.7); Neutrophils % (A) 87 %; Platelet Count 368 k/uL (150-450); RBC 4.91 m/uL (4.30-5.90); RDW 14.6 % (11.5-15.5); WBC 13.1 k/uL (3.8-10.6)
--- NOTE | 2023-09-20 16:11 | XR ---
EXAMINATION TYPE: XR chest 2V DATE OF EXAM: 09/20/2023 COMPARISON: 09/06/2023 HISTORY: 67-year-old male with abdominal pain TECHNIQUE: AP and lateral views FINDINGS: Heart normal size. Aorta and pulmonary vasculature within normal limits. Hyperinflation. No consolida tion or pleural effusion. [facility] throughout the thoracic spine. Bilateral nipple shadows. IMPRESSION: Hyperinflation may relate to a depth of inspiration or underlying emphysema. Correlate for smoking hi story. No acute process seen.
[2023-09-20 16:19] LABS: INR 1.2 (<1.2); Partial Thromboplastin Time 23.8 sec (22.0-30.0)
[2023-09-20] MEDS: MAG HYDROX/AL HYDROX/SIMETH 30 ML, HYOSCYAMINE ELIXIR 10 ML, LIDOCAINE VISCOUS 2% 10 ML PO STA (17:56)
[2023-09-20] MEDS: ASPIRIN 81 MG PO STA (17:57)
[2023-09-20] MEDS ORDERED: NALOXONE 0.4 MG/ML 1 ML VIAL IV PRN (20:31)
[2023-09-20] MEDS: SODIUM CHLORIDE 0.9% 1,000 ML IV SCH (20:54)
[2023-09-21 06:07] LABS: Appearance,Urine Clear (Clear); Bilirubin,Urine Negative (Negative); Blood,Urine Negative (Negative); Color,Urine Yellow; Glucose,Urine (UA) Negative (Negative); Ketones,Urine Trace (Negative); Leukocyte Esterase,Urine Negative (Negative); Nitrite,Urine Negative (Negative); PH, Urine 5.5 (5.0-8.0); Protein,Urine Trace (Negative); Specific Gravity,Urine 1.024 (1.001-1.035); Urobilinogen,Urine <2.0 mg/dL (<2.0)
[2023-09-21] MEDS: METOPROLOL TARTRATE 12.5 MG TAB PO SCH (08:48)
[2023-09-21 11:03] LABS: African American GFR (CKD) 89 (>60 ml/min/1.73 sqM); Anion Gap 8 mmol/L; Blood Urea Nitrogen 36 mg/dL (9-20); Calcium 9.1 mg/dL (8.4-10.2); Carbon Dioxide 31 mmol/L (22-30); Chloride 113 mmol/L (98-107); Glucose 110 mg/dL (74-99); Non-African American GFR(CKD) 77 (>60 ml/min/1.73 sqM); Potassium 4.1 mmol/L (3.5-5.1); Sodium 152 mmol/L (137-145)
[2023-09-21] MEDS: DEXTROSE 5%-0.45% NACL 1,000 ML IV SCH (11:33)
[2023-09-21] MEDS: busPIRone HCl 5 MG TAB PO SCH (11:34)
[2023-09-21] MEDS: METOCLOPRAMIDE 5 MG/ML 2 ML VIAL IVP SCH (11:35)
[2023-09-21] MEDS: SERTRALINE 25 MG TAB PO SCH (11:35)
--- NOTE | 2023-09-21 11:47 | P.CRDCN ---
History of Present Illness History of present illness: HISTORY OF PRESENT ILLNESS: This is a 67-year-old male with a past medical history significant for hypertension, anxiety, depression, former nicotine dependence, previous history of alcohol abuse, and current marijuana use. Patient follows in the office with Dr. Mckeon. We have been asked to see the patient in consultation for elevated troponins. Patient examined at the bedside in the emergency room. Patient presented to the hospital with a chief complaint of nausea and vomiting. Kel calle was hospitalized earlier this month for similar symptoms. He was also hospitalized in August and underwent EGD with Dr. Pavon revealing moderate size hiatal hernia and esophagitis. The patient denies having any chest pain or pressure. He denies any shortness of breath. Vital signs are stable. DIAGNOSTICS: - EKG reveals sinus tachycardia with diffuse ST depression. - Chest xray hyperinflation may relate to depth of inspiration or underlying emphysema. Correlate for smoking history. No acute process seen. - Laboratory data: WBC 13.1. Hemoglobin 15.4. Platelet count 368. Sodium 152. Potassium 4.1. BUN 36. Creatinine 1.01. AST 108. ALT 92. Troponin 0.151. 0.108. - Current home cardiac medications include metoprolol tartrate 12.5 mg twice a day and lisinopril 5 mg daily. - Most recent echocardiogram obtained on September 07, 2023 revealed ejection fraction 60 to 65% with no obvious regional wall motion abnormalities - Cardiac catheterization history: 2019 revealing normal coronary arteries REVIEW OF SYSTEMS: At the time of my exam: CONSTITUTIONAL: Denies fever or chills. HEENT: Denies blurred vision, vision changes, or eye pain. Denies hemoptysis CARDIOVASCULAR: Denies chest pain. Denies orthopnea. Denies PND. Denies palpitations RESPIRATORY: Denies shortness of breath. GASTROINTESTINAL: Denies abdominal pain. Reports nausea or vomiting. HEMATOLOGIC: Denies bleeding disorders. GENITOURINARY: Denies any blood in urine. SKIN: Denies pruitis. Denies rash. PHYSICAL EXAM: VITAL SIGNS: Reviewed. GENERAL: Well-developed in no acute distress. HEENT: Head is normocephalic. Pupils are equal, round. Sclerae anicteric. Mucous membranes of the mouth are moist. Neck supple. No JVD or thyromegaly LUNGS: Respirations even and unlabored. Lungs essentially clear to auscultation bilaterally. HEART: Mildly tachycardic. Regular rate and rhythm. S1 and S2 heard. Systolic murmur noted. ABDOMEN: Soft. Nondistended. Nontender. EXTREMITIES: Normal range of motion. No clubbing or cyanosis. Peripheral pulses intact. No lower extremity edema NEUROLOGIC: Awake and alert. Oriented x 3. ASSESSMENT: Intractable nausea and vomiting Hypernatremia Elevated troponins, of unclear significance, rule out type I SD Normal coronary arteries, per cardiac catheterization 2018 Mildly elevated LFTs Mild to moderate MR and TR Hypertension Anxiety Depression Former nicotine dependence Previous history of alcohol abuse Current marijuana use PLAN: Obtain 2D echo to assess cardiac structure and function Resume metoprolol Hold lisinopril secondary to soft blood pressures Continue telemetry monitoring GI and general surgery have been consulted for evaluation. Await rec ommendations. Further recommendations pending patient course Nurse practitioner note has been reviewed by physician. Signing provider agrees with the documented findings, assessment, and plan of care documented by ORACLE EBS ARCHITECT as a scribe. Past Medical History Past Medical History: Asthma, Coronary Artery Disease (CAD), Chest Pain / Angina, CVA/TIA, GERD/Reflux, Hyperlipidemia, Hypertension, Pneumonia, Rheumatoid Arthritis (RA) Additional Past Medical History / Comment(s): MIGRAINES, HEART MURMUR, hx HIATAL HERNIA, ANEMIA, one dr told him he had a stroke at one time-no effects, varicose veins, history of incarcerated per esophageal hernia, status post robotic-assisted paraesophageal hernia repair and Frederick fundoplication on 04/12/2022. History of Any Multi-Drug Resistant Organisms: None Reported Past Surgical History: Heart Catheterization, Hernia Repair, Orthopedic Surgery Additional Past Surgical History / Comment(s): Lt achilles tendon,RT SHOULDER surgery, RT ACHILLES TENDON reattached, HEMORRHOIDECTOMY, 13 FATTY TUMORS removed. left hand index finger surgery after injury, EGD WITH DILATION, paraesophageal hernia repair with Frederick fundoplication on 04/12/2022. Past Anesthesia/Blood Transfusion Reactions: No Reported Reaction Additional Past Anesthesia/Blood Transfusion Reaction / Comment(s): no hx blood transfusion Past Psychological History: Anxiety, Depression Smoking Status: Former smoker Past Alcohol Use History: None Reported Past Drug Use History: Marijuana - Past Family History Mother Family Medical History: Cancer Father Additional Family Medical History / Comment(s): thinks aneurysm Medications and Allergies Home Medications Medication Instructions Recorded Confirmed Type Metoprolol Tartrate [Lopressor] 12.5 mg PO BID 08/20/18 09/20/23 History lisinopriL [Zestril] 5 mg PO DAILY #30 tab 11/06/22 09/20/23 Rx Nitroglycerin Sl Tabs [Nitrostat] 0.4 mg SUBLINGUAL Q5M PRN 08/08/23 09/20/23 History Sertraline [Zoloft] 25 mg PO DAILY 08/08/23 09/20/23 History busPIRone HCL [Buspar] 7.5 mg PO BID 08/08/23 09/20/23 History Pantoprazole [Protonix] 40 mg PO AC-BRKFST #30 tab 09/08/23 09/20/23 Rx Allergies Allergy/AdvReac Type Severity Reaction Status Date / Time No Known Allergies Allergy Verified 09/20/23 16:35 Physical Exam Vitals: Vital Signs Temp Pulse Resp BP Pulse Ox 09/21/23 08:49 85 18 107/71 97 09/21/23 06:47 76 18 134/89 96 09/21/23 05:28 81 18 143/92 09/21/23 01:00 74 14 117/75 94 L 09/20/23 23:07 72 18 119/79 94 L 09/20/23 21:00 77 15 104/85 95 09/20/23 18:12 88 16 126/92 96 09/20/23 15:48 103 H 16 110/85 95 09/20/23 14:33 97.4 F L 117 H 18 128/100 95 Results 09/20/23 15:48 09/21/23 10:15 Cardiac Enzymes 09/20/23 09/20/23 09/20/23 Range/Units 15:22 15:48 18:48 AST 108 H (17-59) U/L Troponin I 0.151 H* 0.108 H* (0.000-0.034) ng/mL Coagulation 09/20/23 Range/Units 15:48 PT 13.0 H (10.0-12.5) sec APTT 23.8 (22.0-30.0) sec CBC 09/20/23 Range/Units 15:48 WBC 13.1 H (3.8-10.6) k/uL RBC 4.91 (4.30-5.90) m/uL Hgb 15.4 (13.0-17.5) gm/dL Hct 46.4 (39.0-53.0) % Plt Count 368 (150-450) k/uL Comprehensive Metabolic Panel 09/20/23 09/21/23 Range/Units 15:22 10:15 Sodium 151 H 152 H (137-145) mmol/L Potassium 4.5 4.1 (3.5-5.1) mmol/L Chloride 108 H 113 H (98-107) mmol/L Carbon Dioxide 31 H 31 H (22-30) mmol/L BUN 40 H 36 H (9-20) mg/dL Creatinine 1.14 1.01 (0.66-1.25) mg/dL Glucose 135 H 110 H (74-99) mg/dL Calcium 9.6 9.1 (8.4-10.2) mg/dL AST 108 H (17-59) U/L ALT 92 H (4-49) U/L Alkaline Phosphatase 137 H (38-126) U/L Total Protein 6.5 (6.3-8.2) g/dL Albumin 3.7 (3.5-5.0) g/dL Current Medications Generic Name Dose Route Start Last Admin Trade Name Freq PRN Reason Stop Dose Admin Buspirone HCl 7.5 mg 09/21/23 10:30 09/21/23 11:34 Buspirone Hcl 5 Mg Tab PO 7.5 mg BID GIRISH Administration Dextrose/Sodium Chloride 1,000 mls @ 125 mls/hr 09/21/23 10:30 09/21/23 11:33 Dextrose 5%-1/2ns Iv Soln IV 125 mls/hr .Q8H GIRISH Administration Metoclopramide HCl 5 mg 09/21/23 12:00 09/21/23 11:35 Metoclopramide 5 Mg/Ml 2 Ml Vial IVP 5 mg Q6HR GIRISH Administration Metoprolol Tartrate 12.5 mg 09/21/23 09:00 09/21/23 08:48 Metoprolol Tartrate 12.5 Mg Tab PO 12.5 mg BID GIRISH Administration Naloxone HCl 0.2 mg 09/20/23 20:31 Naloxone 0.4 Mg/Ml 1 Ml Vial IV Q2M PRN Opioid Reversal Pantoprazole Sodium 40 mg 09/21/23 21:00 Pantoprazole 40 Mg/10 Ml Vial IVP BID GIRISH Sertraline HCl 25 mg 09/21/23 10:30 09/21/23 11:35 Sertraline 25 Mg Tab PO 25 mg DAILY GIRISH Administration 09/20/23 15:48 09/21/23 10:15
--- NOTE | 2023-09-21 12:02 | P.NPCON ---
History of Present Illness - Reason for Consult acute renal failure - History of Present Illness patient is a 67-year-old male with history of hypertension who was admitted to the hospital with complaints of increased weakness nausea and vomiting and decreased oral intake. Patient stated that he has not been able to 8 for many days now. Blood pressure has been on the lower side. Sodium was noted to be 151. Patient received fluid boluses and is currently maintained on normal saline. Repeat sodium was up to 152 and fluids have been appropriately changed to D5 0.45 at 1 25 mL an hour. Serum creatinine was 1.1 and is down to 1.0. Patient has been voiding. Review of Systems as per HPI Past Medical History Past Medical History: Asthma, Coronary Artery Disease (CAD), Chest Pain / Angina, CVA/TIA, GERD/Reflux, Hyperlipidemia, Hypertension, Pneumonia, Rheumatoid Arthritis (RA) Additional Past Medical History / Comment(s): MIGRAINES, HEART MURMUR, hx HIATAL HERNIA, ANEMIA, one dr told him he had a stroke at one time-no effects, varicose veins, history of incarcerated per esophageal hernia, status post robotic-assisted paraesophageal hernia repair and Frederick fundoplication on 04/12/2022. History of Any Multi-Drug Resistant Organisms: None Reported Past Surgical History: Heart Catheterization, Hernia Repair, Orthopedic Surgery Additional Past Surgical History / Comment(s): Lt achilles tendon,RT SHOULDER surgery, RT ACHILLES TENDON reattached, HEMORRHOIDECTOMY, 13 FATTY TUMORS removed. left hand index finger surgery after injury, EGD WITH DILATION, paraesophageal hernia repair with Frederick fundoplication on 04/12/2022. Past Anesthesia/Blood Transfusion Reactions: No Reported Reaction Additional Past Anesthesia/Blood Transfusion Reaction / Comment(s): no hx blood transfusion Past Psychological History: Anxiety, Depression Smoking Status: Former smoker Past Alcohol Use History: None Reported Past Drug Use History: Marijuana - Past Family History Mother Family Medical History: Cancer Father Additional Family Medical History / Comment(s): thinks aneurysm Medications and Allergies Home Medications Medication Instructions Recorded Confirmed Type Metoprolol Tartrate [Lopressor] 12.5 mg PO BID 08/20/18 09/20/23 History lisinopriL [Zestril] 5 mg PO DAILY #30 tab 11/06/22 09/20/23 Rx Nitroglycerin Sl Tabs [Nitrostat] 0.4 mg SUBLINGUAL Q5M PRN 08/08/23 09/20/23 History Sertraline [Zoloft] 25 mg PO DAILY 08/08/23 09/20/23 History busPIRone HCL [Buspar] 7.5 mg PO BID 08/08/23 09/20/23 History Pantoprazole [Protonix] 40 mg PO AC-BRKFST #30 tab 09/08/23 09/20/23 Rx Allergies Allergy/AdvReac Type Severity Reaction Status Date / Time No Known Allergies Allergy Verified 09/20/23 16:35 Physical Exam Vitals: Vital Signs Temp Pulse Resp BP Pulse Ox 09/21/23 08:49 85 18 107/71 97 09/21/23 06:47 76 18 134/89 96 09/21/23 05:28 81 18 143/92 09/21/23 01:00 74 14 117/75 94 L 09/20/23 23:07 72 18 119/79 94 L 09/20/23 21:00 77 15 104/85 95 09/20/23 18:12 88 16 126/92 96 09/20/23 15:48 103 H 16 110/85 95 09/20/23 14:33 97.4 F L 117 H 18 128/100 95 patient is awake, comfortable, no acute distress Examination of the heart S1 and S2 Examination of the lungs bilateral breath sounds are heard Abdomen is soft nontender Examination of lower extremities shows no evidence of edema 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 Hypernatremia associated with free water deficit. Currently maintained on half normal saline which we will continue. Repeat sodium later on today. 2. Volume depletion 3. Acute kidney injury, prerenal 4. Hypertension with blood pressure currently on the lower side. Heber inhibitors on hold. 5. Lactic acidosis associated with hypotension 6. Intractable nausea and vomiting Plan: continue current IV fluids. Repeat sodium this evening Repeat labs in a.m. Continue to encourage increased oral intake. thank you for the consultation. We will continue to follow the patient with you during his hospitalization.
--- NOTE | 2023-09-21 12:15 | P.HPIM ---
History of Present Illness H&P Date: 09/21/23 History of present illness; patient is 67-year-old gentleman past medical history significant for hypertension, depression, marijuana use who presented to ER for worsening nausea and vomiting. Patient has been admitted multiple times in the past with similar episodes and has been seen by GI with endoscopies done. Patient last admission was beginning of this month at which time patient was seen by GI, did not recommend any endoscopy, last endoscopy was done in 08/10/2023 with findings of moderate hiatal hernia and mild esophagitis. Patient has been taking his Reglan at home but ran out of it. Following that his nausea and vomiting worsened. Denies abdominal pain. There is no complaint of chest pain or shortness of breath. Patient is complaining of poor appetite. Denies any fever or chills. There is no complaint of orthopnea or PND Initial lab work done in the ER showed WBC 13.1, hemoglobin 15.4, platelet count 368, INR 1.2, sodium 151, potassium 4.5, BUN 40, creatinine 1.14, lactate 4.4, AST 108, ALT 92, alk phos 137, troponin 0.151, amylase 141 Influenza A not detected Influenza B not detected RSV not detected COVID-19 not detected EKG done in the ER showed heart rate of 108, NJ interval 102, QRS 78, T-segment depression seen in leads II, III, aVF and V3, V4 V5 V6, no T-wave inversions seen. Chest x-ray done in the ER no acute process seen Patient admitted to internal medicine service REVIEW OF SYSTEMS: CONSTITUTIONAL: No fever, no malaise, no fatigue. HEENT: No recent visual problems or hearing problems. Denied any sore throat. CARDIOVASCULAR: No chest pain, orthopnea, PND, no palpitations, no syncope. PULMONARY: As mentioned HPI GASTROINTESTINAL: As mentioned in HPI NEUROLOGICAL: No headaches, no weakness, no numbness. HEMATOLOGICAL: Denies any bleeding or petechiae. GENITOURINARY: Denies any burning micturition, frequency, or urgency. MUSCULOSKELETAL/RHEUMATOLOGICAL: Denies any joint pain, swelling, or any muscle pain. ENDOCRINE: Denies any polyuria or polydipsia. The rest of the 14-point review of systems is negative. PHYSICAL EXAMINATION: GENERAL: The patient is alert and oriented x3, not in any acute distress. Well developed, well nourished. HEENT: Pupils are round and equally reacting to light. EOMI. No scleral icterus. No conjunctival pallor. Normocephalic, atraumatic. No pharyngeal erythema. No thyromegaly. CARDIOVASCULAR: S1 and S2 present. No murmurs, rubs, or gallops. PULMONARY: Chest is clear to auscultation, no wheezing or crackles. ABDOMEN: Soft, nontender, nondistended, normoactive bowel sounds. No palpable organomegaly. MUSCULOSKELETAL: No joint swelling or deformity. EXTREMITIES: No cyanosis, clubbing, or pedal edema. NEUROLOGICAL: Gross neurological examination did not reveal any focal deficits. SKIN: No rashes. Assessment and plan Dehydration Hypernatremia Lactic acidosis Elevated LFTs Nausea and vomiting Elevated troponin, patient has history of elevated troponins but this time his tropes have increased more from prior History of mitral regurgitation Hypertension Anxiety Depression Former nicotine dependence Current marijuana use History of alcoholism Monitor vital signs Monitor CBC Monitor CMP Continue telemetry monitoring Trend troponin Continue antiemetics continue IV fluids Continue IV Protonix Consult GI Consult cardiology Labs and medication were reviewed.. Continue same treatment. Continue with symptomatic treatment. Resume home medication. Monitor labs and vitals. DVT and GI prophylaxis. Further recommendations as per clinical course of the patient Dictation was produced using [employer] dictation software. please excuse any grammatical, word or spelling errors. Past Medical History Past Medical History: Asthma, Coronary Artery Disease (CAD), Chest Pain / Angina, CVA/TIA, GERD/Reflux, Hyperlipidemia, Hypertension, Pneumonia, Rheumatoid Arthritis (RA) Additional Past Medical History / Comment(s): MIGRAINES, HEART MURMUR, hx HIATAL HERNIA, ANEMIA, one dr told him he had a stroke at one time-no effects, varicose veins, history of incarcerated per esophageal hernia, status post robotic-assisted paraesophageal hernia repair and Frederick fundoplication on 04/12/2022. History of Any Multi-Drug Resistant Organisms: None Reported Past Surgical History: Heart Catheterization, Hernia Repair, Orthopedic Surgery Additional Past Surgical History / Comment(s): Lt achilles tendon,RT SHOULDER surgery, RT ACHILLES TENDON reattached, HEMORRHOIDECTOMY, 13 FATTY TUMORS removed. left hand index finger surgery after injury, EGD WITH DILATION, paraesophageal hernia repair with Frederick fundoplication on 04/12/2022. Past Anesthesia/Blood Transfusion Reactions: No Reported Reaction Additional Past Anesthesia/Blood Transfusion Reaction / Comment(s): no hx blood transfusion Past Psychological History: Anxiety, Depression Smoking Status: Former smoker Past Alcohol Use History: None Reported Past Drug Use History: Marijuana - Past Family History Mother Family Medical History: Cancer Father Additional Family Medical History / Comment(s): thinks aneurysm Medications and Allergies Home Medications Medication Instructions Recorded Confirmed Type Metoprolol Tartrate [Lopressor] 12.5 mg PO BID 08/20/18 09/20/23 History lisinopriL [Zestril] 5 mg PO DAILY #30 tab 11/06/22 09/20/23 Rx Nitroglycerin Sl Tabs [Nitrostat] 0.4 mg SUBLINGUAL Q5M PRN 08/08/23 09/20/23 History Sertraline [Zoloft] 25 mg PO DAILY 08/08/23 09/20/23 History busPIRone HCL [Buspar] 7.5 mg PO BID 08/08/23 09/20/23 History Pantoprazole [Protonix] 40 mg PO AC-BRKFST #30 tab 09/08/23 09/20/23 Rx Allergies Allergy/AdvReac Type Severity Reaction Status Date / Time No Known Allergies Allergy Verified 09/20/23 16:35 Physical Exam Vitals: Vital Signs Temp Pulse Resp BP Pulse Ox 09/21/23 08:49 85 18 107/71 97 09/21/23 06:47 76 18 134/89 96 09/21/23 05:28 81 18 143/92 09/21/23 01:00 74 14 117/75 94 L 09/20/23 23:07 72 18 119/79 94 L 09/20/23 21:00 77 15 104/85 95 09/20/23 18:12 88 16 126/92 96 09/20/23 15:48 103 H 16 110/85 95 09/20/23 14:33 97.4 F L 117 H 18 128/100 95 Results CBC & Chem 7: 09/20/23 15:48 09/20/23 15:22 Labs: Abnormal Lab Results - Last 24 Hours (Table) 09/20/23 09/20/23 09/20/23 Range/Units 15:22 15:22 15:48 WBC 13.1 H (3.8-10.6) k/uL Neutrophils # 11.4 H (1.3-7.7) k/uL PT (10.0-12.5) sec INR (<1.2) Sodium 151 H (137-145) mmol/L Chloride 108 H (98-107) mmol/L Carbon Dioxide 31 H (22-30) mmol/L BUN 40 H (9-20) mg/dL Glucose 135 H (74-99) mg/dL Plasma Lactic Acid Jack 4.4 H* (0.7-2.0) mmol/L AST 108 H (17-59) U/L ALT 92 H (4-49) U/L Alkaline Phosphatase 137 H (38-126) U/L Troponin I (0.000-0.034) ng/mL Amylase 141 H (30-110) U/L Urine Protein (Negative) Urine Ketones (Negative) 09/20/23 09/20/23 09/20/23 Range/Units 15:48 15:48 18:48 WBC (3.8-10.6) k/uL Neutrophils # (1.3-7.7) k/uL PT 13.0 H (10.0-12.5) sec INR 1.2 H (<1.2) Sodium (137-145) mmol/L Chloride (98-107) mmol/L Carbon Dioxide (22-30) mmol/L BUN (9-20) mg/dL Glucose (74-99) mg/dL Plasma Lactic Acid Jack (0.7-2.0) mmol/L AST (17-59) U/L ALT (4-49) U/L Alkaline Phosphatase (38-126) U/L Troponin I 0.151 H* 0.108 H* (0.000-0.034) ng/mL Amylase (30-110) U/L Urine Protein (Negative) Urine Ketones (Negative) 09/20/23 09/21/23 Range/Units 18:48 06:01 WBC (3.8-10.6) k/uL Neutrophils # (1.3-7.7) k/uL PT (10.0-12.5) sec INR (<1.2) Sodium (137-145) mmol/L Chloride (98-107) mmol/L Carbon Dioxide (22-30) mmol/L BUN (9-20) mg/dL Glucose (74-99) mg/dL Plasma Lactic Acid Jack 2.1 H* (0.7-2.0) mmol/L AST (17-59) U/L ALT (4-49) U/L Alkaline Phosphatase (38-126) U/L Troponin I (0.000-0.034) ng/mL Amylase (30-110) U/L Urine Protein Trace H (Negative) Urine Ketones Trace H (Negative)
--- NOTE | 2023-09-21 15:10 | P.GSCN ---
History of Present Illness Consult date: 09/21/23 History of present illness: CHIEF COMPLAINT: Nausea and vomiting HISTORY OF PRESENT ILLNESS: This is a 67-year-old male who presents to the ER with complaints of nausea and vomiting. Patient reports that he has been having issues with vomiting for months. He reports having difficulty with swallowing. And everything that he takes in he spits up. The emesis is clearish in color. He reports epigastric abdominal pain due to the vomiting. Patient with history of Niesen publication of 2021 he had a EGD in August 10, 2023 that showed a moderate hiatal hernia. Patient did have a cholecystectomy in March 2023. Surgical service consulted for the nausea vomiting and dysphagia. PAST MEDICAL HISTORY: Asthma, Coronary Artery Disease (CAD), Chest Pain / Angina, CVA/TIA, GERD/Reflux, Hyperlipidemia, Hypertension, Pneumonia, Rheumatoid Arthritis (RA),MIGRAINES, HEART MURMUR, hx HIATAL HERNIA, ANEMIA, one dr told him he had a stroke at one time-no effects, varicose veins, history of incarcerated per esophageal hernia, status post robotic-assisted paraesophageal hernia repair and Frederick fundoplication on 04/12/2022. PAST SURGICAL HISTORY: Heart Catheterization, Hernia Repair, Orthopedic Surgery MEDICATIONS: See below ALLERGIES: See below SOCIAL HISTORY: No illicit drug use. REVIEW OF SYSTEMS: CONSTITUTIONAL: Denies fever or chills. HEENT: Denies blurred vision, vision changes, or eye pain. Denies hemoptysis CARDIOVASCULAR: Denies chest pain or pressure. RESPIRATORY: No shortness of breath. GASTROINTESTINAL: See HPI for pertinent findings HEMATOLOGIC: Denies bleeding disorders. GENITOURINARY: Denies any blood in urine or increased urinary frequency. SKIN: Denies pruitis. Denies rash. PHYSICAL EXAM: VITAL SIGNS: Reviewed GENERAL: Well-developed in no acute distress. HEENT: No sclera icterus. Extraocular movements grossly intact. Moist buccal mucosa. Head is atraumatic, normocephalic. No nasal drainage. ABDOMEN: Soft. Nondistended. Epigastric tenderness NEUROLOGIC: Alert and oriented. Cranial nerves II through XII grossly intact. LABORATORY DATA: WBC 13.1 Hgb 15.4 platelets 368 INR 1.2 Sodium is 152 potassium is 4.1 creatinine 1.01 Lactic acid 4.4 down to 1.9 Total bilirubin 1.0 mildly elevated LFTs troponin elevated Lipase 144 IMAGING: Chest x-ray reported hyperinflation may relate to depth of inspiration or u nderlying emphysema. No acute process ASSESSMENT: 1. Dysphagia 2. Recurrent nausea and vomiting 3. Moderate sized hiatal hernia 4. History of Niesen fundoplication 2021 PLAN: -Keep patient n.p.o. -Upper GI for evaluation of dysphagia and vomiting ordered -Patient scheduled for laparoscopic repair of hiatal hernia on Monday,09/25/[address] Pavon -Continue antiemetics -Continue supportive care -Hypernatremia management per nephrology -Continue cardiac workup for elevated troponin Thank you for this consultation Physician State Epidemiologist note has been reviewed by physician. Signing provider agrees with the documented findings, assessment, and plan of care. Past Medical History Past Medical History: Asthma, Coronary Artery Disease (CAD), Chest Pain / Angina, CVA/TIA, GERD/Reflux, Hyperlipidemia, Hypertension, Pneumonia, Rheumatoid Arthritis (RA) Additional Past Medical History / Comment(s): MIGRAINES, HEART MURMUR, hx HIATAL HERNIA, ANEMIA, one dr told him he had a stroke at one time-no effects, varicose veins, history of incarcerated per esophageal hernia, status post robotic-assisted paraesophageal hernia repair and Frederick fundoplication on 04/12/2022. History of Any Multi-Drug Resistant Organisms: None Reported Past Surgical History: Heart Catheterization, Hernia Repair, Orthopedic Surgery Additional Past Surgical History / Comment(s): Lt achilles tendon,RT SHOULDER surgery, RT ACHILLES TENDON reattached, HEMORRHOIDECTOMY, 13 FATTY TUMORS removed. left hand index finger surgery after injury, EGD WITH DILATION, paraesophageal hernia repair with Frederick fundoplication on 04/12/2022. Past Anesthesia/Blood Transfusion Reactions: No Reported Reaction Additional Past Anesthesia/Blood Transfusion Reaction / Comm: no hx blood transfusion Past Psychological History: Anxiety, Depression Smoking Status: Former smoker Past Alcohol Use History: None Reported Past Drug Use History: Marijuana - Past Family History Mother Family Medical History: Cancer Father Additional Family Medical History / Comment(s): thinks aneurysm Medications and Allergies Home Medications Medication Instructions Recorded Confirmed Type Metoprolol Tartrate [Lopressor] 12.5 mg PO BID 08/20/18 09/20/23 History lisinopriL [Zestril] 5 mg PO DAILY #30 tab 11/06/22 09/20/23 Rx Nitroglycerin Sl Tabs [Nitrostat] 0.4 mg SUBLINGUAL Q5M PRN 08/08/23 09/20/23 History Sertraline [Zoloft] 25 mg PO DAILY 08/08/23 09/20/23 History busPIRone HCL [Buspar] 7.5 mg PO BID 08/08/23 09/20/23 History Pantoprazole [Protonix] 40 mg PO AC-BRKFST #30 tab 09/08/23 09/20/23 Rx Allergies Allergy/AdvReac Type Severity Reaction Status Date / Time No Known Allergies Allergy Verified 09/20/23 16:35 Surgical - Exam Vital Signs Temp Pulse Resp BP Pulse Ox 97.4 F L 117 H 18 128/100 95 09/20/23 14:33 09/20/23 14:33 09/20/23 14:33 09/20/23 14:33 09/20/23 14:33 Results - Labs 09/20/23 15:48 09/21/23 10:15 Abnormal Lab Results - Last 24 Hours (Table) 09/20/23 09/20/23 09/20/23 Range/Units 15:22 15:22 15:48 WBC 13.1 H (3.8-10.6) k/uL Neutrophils # 11.4 H (1.3-7.7) k/uL PT (10.0-12.5) sec INR (<1.2) Sodium 151 H (137-145) mmol/L Chloride 108 H (98-107) mmol/L Carbon Dioxide 31 H (22-30) mmol/L BUN 40 H (9-20) mg/dL Glucose 135 H (74-99) mg/dL Plasma Lactic Acid Jack 4.4 H* (0.7-2.0) mmol/L AST 108 H (17-59) U/L ALT 92 H (4-49) U/L Alkaline Phosphatase 137 H (38-126) U/L Troponin I (0.000-0.034) ng/mL Amylase 141 H (30-110) U/L Urine Protein (Negative) Urine Ketones (Negative) 09/20/23 09/20/23 09/20/23 Range/Units 15:48 15:48 18:48 WBC (3.8-10.6) k/uL Neutrophils # (1.3-7.7) k/uL PT 13.0 H (10.0-12.5) sec INR 1.2 H (<1.2) Sodium (137-145) mmol/L Chloride (98-107) mmol/L Carbon Dioxide (22-30) mmol/L BUN (9-20) mg/dL Glucose (74-99) mg/dL Plasma Lactic Acid Jack (0.7-2.0) mmol/L AST (17-59) U/L ALT (4-49) U/L Alkaline Phosphatase (38-126) U/L Troponin I 0.151 H* 0.108 H* (0.000-0.034) ng/mL Amylase (30-110) U/L Urine Protein (Negative) Urine Ketones (Negative) 09/20/23 09/21/23 09/21/23 Range/Units 18:48 06:01 10:15 WBC (3.8-10.6) k/uL Neutrophils # (1.3-7.7) k/uL PT (10.0-12.5) sec INR (<1.2) Sodium 152 H (137-145) mmol/L Chloride 113 H (98-107) mmol/L Carbon Dioxide 31 H (22-30) mmol/L BUN 36 H (9-20) mg/dL Glucose 110 H (74-99) mg/dL Plasma Lactic Acid Jack 2.1 H* (0.7-2.0) mmol/L AST (17-59) U/L ALT (4-49) U/L Alkaline Phosphatase (38-126) U/L Troponin I (0.000-0.034) ng/mL Amylase (30-110) U/L Urine Protein Trace H (Negative) Urine Ketones Trace H (Negative) Diabetes panel 09/20/23 09/21/23 Range/Units 15:22 10:15 Sodium 151 H 152 H (137-145) mmol/L Potassium 4.5 4.1 (3.5-5.1) mmol/L Chloride 108 H 113 H (98-107) mmol/L Carbon Dioxide 31 H 31 H (22-30) mmol/L BUN 40 H 36 H (9-20) mg/dL Creatinine 1.14 1.01 (0.66-1.25) mg/dL Glucose 135 H 110 H (74-99) mg/dL Calcium 9.6 9.1 (8.4-10.2) mg/dL AST 108 H (17-59) U/L ALT 92 H (4-49) U/L Alkaline Phosphatase 137 H (38-126) U/L Total Protein 6.5 (6.3-8.2) g/dL Albumin 3.7 (3.5-5.0) g/dL Calcium panel 09/20/23 09/21/23 Range/Units 15:22 10:15 Calcium 9.6 9.1 (8.4-10.2) mg/dL Albumin 3.7 (3.5-5.0) g/dL Pituitary panel 09/20/23 09/21/23 Range/Units 15:22 10:15 Sodium 151 H 152 H (137-145) mmol/L Potassium 4.5 4.1 (3.5-5.1) mmol/L Chloride 108 H 113 H (98-107) mmol/L Carbon Dioxide 31 H 31 H (22-30) mmol/L BUN 40 H 36 H (9-20) mg/dL Creatinine 1.14 1.01 (0.66-1.25) mg/dL Glucose 135 H 110 H (74-99) mg/dL Calcium 9.6 9.1 (8.4-10.2) mg/dL Adrenal panel 09/20/23 09/21/23 Range/Units 15:22 10:15 Sodium 151 H 152 H (137-145) mmol/L Potassium 4.5 4.1 (3.5-5.1) mmol/L Chloride 108 H 113 H (98-107) mmol/L Carbon Dioxide 31 H 31 H (22-30) mmol/L BUN 40 H 36 H (9-20) mg/dL Creatinine 1.14 1.01 (0.66-1.25) mg/dL Glucose 135 H 110 H (74-99) mg/dL Calcium 9.6 9.1 (8.4-10.2) mg/dL Total Bilirubin 1.0 (0.2-1.3) mg/dL AST 108 H (17-59) U/L ALT 92 H (4-49) U/L Alkaline Phosphatase 137 H (38-126) U/L Total Protein 6.5 (6.3-8.2) g/dL Albumin 3.7 (3.5-5.0) g/dL
--- NOTE | 2023-09-21 15:46 | P.CONS ---
History of Present Illness - Reason for Consult Consult date: 09/21/23 Intractable vomiting Requesting physician: Je Ureña - Chief Complaint Nausea vomiting, weakness - History of Present Illness This is a pleasant 67-year-old male with a past medical history of asthma, coronary artery disease, TIA, GERD, hyperlipidemia, hypertension, rheumatoid arthritis with previous incarcerated esophageal hernia status post robotic assisted paraesophageal hernia repair and Niesen fundoplication in April 2022 who presented to the emergency department with complaints of weakness, and continued spitting up and bringing up phlegm. Apparently patient has a history for many years of what he states is bringing up phlegm and sputum by coughing it up. Gastroenterology was consulted for vomiting. He denies any nausea, states he is not actually vomiting any food. States that he just brings up phlegm. States that he usually has Reglan at home but he ran out. Reports increased weight loss. He was recently hospitalized 2 weeks ago and seen by gastroenterology. At that time he underwent a barium swallow which was normal. He had recent endoscopic evaluation with Dr. Pavon on 08/10/2023 for reported nausea vomiting with findings of moderate size hiatal hernia and esophagitis. Biopsy reported mild chronic esophagitis. Currently patient denies any abdominal pain, no nausea or vomiting. Again just states that he will bring phlegm and sputum multiple times throughout the day. This has been going on for years. However he states he has had some increased weakness and weight loss now. Review of Systems REVIEW OF SYSTEMS: CARDIOPULMONARY: No chest pain or shortness of breath. Gastrointestinal: No epigastric or abdominal pain. Chronic phlegm and spitting. No hematemesis, coffee-ground emesis. No rectal bleeding, or melena. GENITOURINARY: No dysuria or hematuria. MUSCULOSKELETAL: Reports normal range of motion. Joint pain. SKIN: No rashes. No jaundice. ENDOCRINE: No chills, fevers. No excessive weight gain or loss. No polydipsia or polyuria. PSYCHIATRIC: Unremarkable. NEUROLOGY: No change in mental status. Denies dizziness, headache. ENT: Vision unremarkable. CONSTITUTIONAL: Reports recent weight loss however cannot give an amount. No fever, chills, night sweats. Past Medical History Past Medical History: Asthma, Coronary Artery Disease (CAD), Chest Pain / Angina, CVA/TIA, GERD/Reflux, Hyperlipidemia, Hypertension, Pneumonia, Rheuma toid Arthritis (RA) Additional Past Medical History / Comment(s): MIGRAINES, HEART MURMUR, hx HIATAL HERNIA, ANEMIA, one dr told him he had a stroke at one time-no effects, v aricose veins, history of incarcerated per esophageal hernia, status post robotic-assisted paraesophageal hernia repair and Frederick fundoplication on 04/12/2022. History of Any Multi-Drug Resistant Organisms: None Reported Past Surgical History: Heart Catheterization, Hernia Repair, Orthopedic Surgery Additional Past Surgical History / Comment(s): Lt achilles tendon,RT SHOULDER surgery, RT ACHILLES TENDON reattached, HEMORRHOIDECTOMY, 13 FATTY TUMORS removed. left hand index finger surgery after injury, EGD WITH DILATION, paraesophageal hernia repair with Frederick fundoplication on 04/12/2022. Past Anesthesia/Blood Transfusion Reactions: No Reported Reaction Additional Past Anesthesia/Blood Transfusion Reaction / Comm: no hx blood transfusion Past Psychological History: Anxiety, Depression Smoking Status: Former smoker Past Alcohol Use History: None Reported Past Drug Use History: Marijuana - Past Family History Mother Family Medical History: Cancer Father Additional Family Medical History / Comment(s): thinks aneurysm Medications and Allergies Home Medications Medication Instructions Recorded Confirmed Type Metoprolol Tartrate [Lopressor] 12.5 mg PO BID 08/20/18 09/20/23 History lisinopriL [Zestril] 5 mg PO DAILY #30 tab 11/06/22 09/20/23 Rx Nitroglycerin Sl Tabs [Nitrostat] 0.4 mg SUBLINGUAL Q5M PRN 08/08/23 09/20/23 History Sertraline [Zoloft] 25 mg PO DAILY 08/08/23 09/20/23 History busPIRone HCL [Buspar] 7.5 mg PO BID 08/08/23 09/20/23 History Pantoprazole [Protonix] 40 mg PO AC-BRKFST #30 tab 09/08/23 09/20/23 Rx Allergies Allergy/AdvReac Type Severity Reaction Status Date / Time No Known Allergies Allergy Verified 09/20/23 16:35 Physical Exam Vitals: Vital Signs Temp Pulse Resp BP Pulse Ox 09/21/23 08:49 85 18 107/71 97 09/21/23 06:47 76 18 134/89 96 09/21/23 05:28 81 18 143/92 09/21/23 01:00 74 14 117/75 94 L 09/20/23 23:07 72 18 119/79 94 L 09/20/23 21:00 77 15 104/85 95 09/20/23 18:12 88 16 126/92 96 09/20/23 15:48 103 H 16 110/85 95 09/20/23 14:33 97.4 F L 117 H 18 128/100 95 General appearance: The patient is alert, oriented, appears in no acute distress. HET: Head is normocephalic and atraumatic. Conjunctiva pink. Sclera anicteric. Neck: Supple without lymphadenopathy. Trachea midline. Heart: Regular. Lungs: Equal expansion, normal respiratory effort. Abdomen: Soft, thin, nontender, nondistended with bowel sounds. Skin: No rashes. No jaundice. Extremities: Normal skin color and turgor. No pedal edema. Neurological: No focal deficits. Alert and oriented x3. Results CBC & Chem 7: 09/20/23 15:48 09/21/23 10:15 Labs: Abnormal Lab Results - Last 24 Hours (Table) 09/20/23 09/20/23 09/20/23 Range/Units 15:22 15:22 15:48 WBC 13.1 H (3.8-10.6) k/uL Neutrophils # 11.4 H (1.3-7.7) k/uL PT (10.0-12.5) sec INR (<1.2) Sodium 151 H (137-145) mmol/L Chloride 108 H (98-107) mmol/L Carbon Dioxide 31 H (22-30) mmol/L BUN 40 H (9-20) mg/dL Glucose 135 H (74-99) mg/dL Plasma Lactic Acid Jack 4.4 H* (0.7-2.0) mmol/L AST 108 H (17-59) U/L ALT 92 H (4-49) U/L Alkaline Phosphatase 137 H (38-126) U/L Troponin I (0.000-0.034) ng/mL Amylase 141 H (30-110) U/L Urine Protein (Negative) Urine Ketones (Negative) 09/20/23 09/20/23 09/20/23 Range/Units 15:48 15:48 18:48 WBC (3.8-10.6) k/uL Neutrophils # (1.3-7.7) k/uL PT 13.0 H (10.0-12.5) sec INR 1.2 H (<1.2) Sodium (137-145) mmol/L Chloride (98-107) mmol/L Carbon Dioxide (22-30) mmol/L BUN (9-20) mg/dL Glucose (74-99) mg/dL Plasma Lactic Acid Jack (0.7-2.0) mmol/L AST (17-59) U/L ALT (4-49) U/L Alkaline Phosphatase (38-126) U/L Troponin I 0.151 H* 0.108 H* (0.000-0.034) ng/mL Amylase (30-110) U/L Urine Protein (Negative) Urine Ketones (Negative) 09/20/23 09/21/23 Range/Units 18:48 06:01 WBC (3.8-10.6) k/uL Neutrophils # (1.3-7.7) k/uL PT (10.0-12.5) sec INR (<1.2) Sodium (137-145) mmol/L Chloride (98-107) mmol/L Carbon Dioxide (22-30) mmol/L BUN (9-20) mg/dL Glucose (74-99) mg/dL Plasma Lactic Acid Jack 2.1 H* (0.7-2.0) mmol/L AST (17-59) U/L ALT (4-49) U/L Alkaline Phosphatase (38-126) U/L Troponin I (0.000-0.034) ng/mL Amylase (30-110) U/L Urine Protein Trace H (Negative) Urine Ketones Trace H (Negative) Assessment and Plan (1) History of Frederick fundoplication Narrative/Plan: This is a 67-year-old admitted twice now in the last 2 weeks for chronic "vomiting" this sputum and phlegm that has been ongoing for years. He is status post Niesen fundoplication in April 2022. He states since that time he has had continued gagging of phlegm and bringing it up. Unable to eat much. He did recently undergo upper endoscopy with reported moderate sized hiatal hernia and esophagitis. Again I do not think that this is a GI issue. Would recommend follow-up with general surgeon to re-evaluate Niesen fundoplication. Current Visit: No Status: Acute Code(s): Z98.890 - OTHER SPECIFIED POSTPROCEDURAL STATES SNOMED Code(s): 209133761 (2) Vomiting Narrative/Plan: Patient reports and is seen in his emesis bag that he is not actually vomiting he is only bringing up phlegm Current Visit: No Status: Acute Code(s): R11.10 - VOMITING, UNSPECIFIED SNOMED Code(s): 047271409 (3) Weakness Current Visit: No Status: Acute Code(s): R53.1 - WEAKNESS SNOMED Code(s): 85565146 Plan: 1. Continue symptomatic and supportive care 2. Diet as tolerated 3. Protonix 40 mg daily 4. Antiemetics as needed 5. Consult to general surgery. Will defer further management to general surgery. Thank you for this consultation, we will sign off at this time. Dr. Kb Odell I agree with the dictator's note, documented as a scribe by Celia Walters.
[2023-09-21] MEDS: PANTOPRAZOLE 40 MG/10 ML VIAL IVP SCH (23:52)
--- NOTE | 2023-09-22 09:34 | P.PN ---
Subjective HISTORY OF PRESENT ILLNESS: This is a 67-year-old male with a past medical history significant for hypertension, anxiety, depression, former nicotine dependence, previous history of alcohol abuse, and current marijuana use. Patient follows in the office with Dr. Mckeon. We have been asked to see the patient in consultation for elevated troponins. Patient examined at the bedside in the emergency room. Patient presented to the hospital with a chief complaint of nausea and vomiting. Patient was hospitalized earlier this month for similar symptoms. He was also hospitalized in August and underwent EGD with Dr. Pavon revealing moderate size hiatal hernia and esophagitis. The patient denies having any chest pain or pressure. He denies any shortness of breath. Vital signs are stable. DIAGNOSTICS: - EKG reveals sinus tachycardia with diffuse ST depression. - Chest xray hyperinflation may relate to depth of inspiration or underlying e mphysema. Correlate for smoking history. No acute process seen. - Laboratory data: WBC 13.1. Hemoglobin 15.4. Platelet count 368. Sodium 152. Potassium 4.1. BUN 36. Creatinine 1.01. AST 108. ALT 92. Troponin 0.151. 0.108. - Current home cardiac medications include metoprolol tartrate 12.5 mg twice a day and lisinopril 5 mg daily. - Most recent echocardiogram obtained on September 07, 2023 revealed ejection fraction 60 to 65% with no obvious regional wall motion abnormalities - Cardiac catheterization history: 2019 revealing normal coronary arteries 09/22/2023 Patient examined this morning at the bedside. Patient pressure. He denies shortness of breath. He reports improvement in his nausea and vomiting. Patient was evaluated by general surgery and is scheduled for laparoscopic rep air of hiatal hernia on Monday, September 25, [address] Pavon. 2D echo remains pending. Blood pressure 143/82. Heart rate in the 60s80s. PHYSICAL EXAM: VITAL SIGNS: Reviewed. GENERAL: Well-developed in no acute distress. HEENT: Head is normocephalic. Pupils are equal, round. Sclerae anicteric. Mucous membranes of the mouth are moist. Neck supple. No JVD or thyromegaly LUNGS: Respirations even and unlabored. Lungs essentially clear to auscultation bilaterally. HEART: Regular rate and rhythm. S1 and S2 heard. Systolic murmur noted. ABDOMEN: Soft. Nondistended. Nontender. EXTREMITIES: Normal range of motion. No clubbing or cyanosis. Peripheral pulses intact. No lower extremity edema NEUROLOGIC: Awake and alert. Oriented x 3. ASSESSMENT: Intractable nausea and vomiting Hypernatremia Elevated troponins, of unclear significance, rule out type I PA Normal coronary arteries, per cardiac catheterization 2018 Mildly elevated LFTs Mild to moderate MR and TR Hypertension Anxiety Depression Former nicotine dependence Previous history of alcohol abuse Current marijuana use PLAN: 2D echo has been ordered. Await results Resume lisinopril Continue telemetry monitoring Patient is scheduled for laparoscopic repair of hiatal hernia on Monday, September 25, [address] Pavon Patient is currently stable from a cardiac perspective Further recommendations pending patient course Nurse practitioner note has been reviewed by physician. Signing provider agrees with the documented findings, assessment, and plan of care documented by EXCHANGE CONSULTANT as a scribe. Objective - Vital Signs Vital signs: Vital Signs Temp 97.9 F 09/22/23 03:01 Pulse 65 09/22/23 03:01 Resp 16 09/22/23 03:01 BP 143/82 09/22/23 03:01 Pulse Ox 95 09/22/23 03:01 FiO2 Intake & Output 09/21/23 09/22/23 09/22/23 18:59 06:59 18:59 Intake Total 20 Output Total 200 Balance -180 Weight 54.431 kg Intake: IV 20 Invasive Line 1 20 Oral 0 Output: Urine 200 Other: Voiding Method Toilet Urinal # Voids 1 - Labs CBC & Chem 7: 09/20/23 15:48 09/21/23 16:18 Labs: Abnormal Lab Results - Last 24 Hours (Table) 09/21/23 09/21/23 Range/Units 10:15 16:18 Sodium 152 H 150 H (137-145) mmol/L Chloride 113 H (98-107) mmol/L Carbon Dioxide 31 H (22-30) mmol/L BUN 36 H (9-20) mg/dL Glucose 110 H (74-99) mg/dL
[2023-09-22] MEDS: lisinopriL 5 MG TAB PO SCH (09:57)
--- NOTE | 2023-09-22 10:33 | P.PN ---
Subjective patient is seen for follow-up for hypernatremia. Serum sodium improved to 150 yesterday. Patient is maintained on D5 0.45. Labs are pending from today. No significant diarrhea. Patient is able to tolerate oral intake. Objective - Vital Signs Vital signs: Vital Signs Temp 98 F 09/22/23 08:05 Pulse 76 09/22/23 08:05 Resp 17 09/22/23 08:05 BP 138/88 09/22/23 08:05 Pulse Ox 98 09/22/23 08:05 FiO2 Intake & Output 09/21/23 09/22/23 09/22/23 18:59 06:59 18:59 Intake Total 20 Output Total 200 Balance -180 Weight 54.431 kg Intake: IV 20 Invasive Line 1 20 Oral 0 Output: Urine 200 Other: Voiding Method Toilet Toilet Urinal Urinal # Voids 1 - Exam patient is awake, comfortable, no acute distress Examination of the heart S1 and S2 Examination of the lungs bilateral breath sounds are heard Abdomen is soft nontender Examination of lower extremities shows no evidence of edema [employer] exam grossly intact - Labs CBC & Chem 7: 09/20/23 15:48 09/21/23 16:18 Labs: Abnormal Lab Results - Last 24 Hours (Table) 09/21/23 09/21/23 Range/Units 10:15 16:18 Sodium 152 H 150 H (137-145) mmol/L Chloride 113 H (98-107) mmol/L Carbon Dioxide 31 H (22-30) mmol/L BUN 36 H (9-20) mg/dL Glucose 110 H (74-99) mg/dL Assessment and Plan Assessment: 1. Hypernatremia associated with free water deficit. Currently maintained on half normal saline which we will continue. sodium at 150 last night. Labs are pending from today. 2. Volume depletion 3. Acute kidney injury, prerenal 4. Hypertension with blood pressure currently on the lower side. Heber inhibitors on hold. 5. Lactic acidosis associated with hypotension 6. Intractable nausea and vomiting Plan: continue current IV fluids. Repeat sodium this evening Repeat labs in a.m. Continue to encourage increased oral intake particularly fluids.
[2023-09-22 11:43] LABS: Basophils % (A) 0 %; Eosinophils % (A) 0 %; HCT 42.3 % (39.0-53.0); HGB 13.4 gm/dL (13.0-17.5); Lymphocytes # (A) 0.7 k/uL (1.0-4.8); Lymphocytes % (A) 9 %; MCH 30.7 pg (25.0-35.0); MCHC 31.6 g/dL (31.0-37.0); Mean Platelet Volume 8.8; Monocytes # (A) 0.4 k/uL (0-1.0); Monocytes % (A) 6 %; Neutrophils # (A) 6.2 k/uL (1.3-7.7); Neutrophils % (A) 83 %; Platelet Count 256 k/uL (150-450); RBC 4.36 m/uL (4.30-5.90); RDW 14.5 % (11.5-15.5); WBC 7.5 k/uL (3.8-10.6)
[2023-09-22 11:59] LABS: ALT 60 U/L (4-49); AST 40 U/L (17-59); African American GFR (CKD) >90 (>60 ml/min/1.73 sqM); Albumin 2.8 g/dL (3.5-5.0); Alkaline Phosphatase 103 U/L (38-126); Anion Gap 6 mmol/L; Blood Urea Nitrogen 29 mg/dL (9-20); Calcium 8.3 mg/dL (8.4-10.2); Carbon Dioxide 32 mmol/L (22-30); Chloride 112 mmol/L (98-107); Glucose 155 mg/dL (74-99); Non-African American GFR(CKD) 87 (>60 ml/min/1.73 sqM); Potassium 2.9 mmol/L (3.5-5.1); Sodium 150 mmol/L (137-145); Total Bilirubin 0.6 mg/dL (0.2-1.3); Total Protein 5.1 g/dL (6.3-8.2)
--- NOTE | 2023-09-22 12:58 | P.PN ---
Subjective Progress Note Date: 09/22/23 patient is 67-year-old gentleman past medical history significant for hypertension, depression, marijuana use who presented to ER for worsening nausea and vomiting. Patient has been admitted multiple times in the past with similar episodes and has been seen by GI with endoscopies done. Patient last admission was beginning of this month at which time patient was seen by GI, did not recommend any endoscopy, last endoscopy was done in 08/10/2023 with findings of moderate hiatal hernia and mild esophagitis. Patient has been taking his Reglan at home but ran out of it. Following that his nausea and vomiting worsened. Denies abdominal pain. There is no complaint of chest pain or shortness of breath. Patient is complaining of poor appetite. Denies any fever or chills. There is no complaint of orthopnea or PND Initial lab work done in the ER showed WBC 13.1, hemoglobin 15.4, platelet count 368, INR 1.2, sodium 151, potassium 4.5, BUN 40, creatinine 1.14, lactate 4.4, AST 108, ALT 92, alk phos 137, troponin 0.151, amylase 141 Influenza A not detected Influenza B not detected RSV not detected COVID-19 not detected EKG done in the ER showed heart rate of 108, SD interval 102, QRS 78, T-segment depression seen in leads II, III, aVF and V3, V4 V5 V6, no T-wave inversions seen. Chest x-ray done in the ER no acute process seen Patient admitted to internal medicine service 09/21. Patient seen and examined.General surgery consulted,Patient scheduled for laparoscopic repair of hiatal hernia on Monday,09/25/[address] Pavon. Still having nausea. Sodium this morning is 150, potassium is 2.9, placement ordered REVIEW OF SYSTEMS: CONSTITUTIONAL: No fever, no malaise,. CARDIOVASCULAR: No chest pain, no palpitations, no syncope. PULMONARY: No shortness of breath, no cough, GASTROINTESTINAL: No diarrhea, no abdominal pain. NEUROLOGICAL: No headaches, no weakness, PHYSICAL EXAMINATION: GENERAL: The patient is alert and oriented x3, not in any acute distress. Well developed, well nourished. HEENT: Pupils are round and equally reacting to light. EOMI. No scleral icterus. No conjunctival pallor. Normocephalic, atraumatic. No pharyngeal erythema. No thyromegaly. CARDIOVASCULAR: S1 and S2 present. No murmurs, rubs, or gallops. PULMONARY: Chest is clear to auscultation, no wheezing or crackles. ABDOMEN: Soft, nontender, nondistended, normoactive bowel sounds. No palpable organomegaly. MUSCULOSKELETAL: No joint swelling or deformity. EXTREMITIES: No cyanosis, clubbing, or pedal edema. NEUROLOGICAL: Gross neurological examination did not reveal any focal deficits. SKIN: No rashes. Assessment and plan Dehydration Hypernatremia Lactic acidosis Elevated LFTs Nausea and vomiting Elevated troponin, patient has history of elevated troponins but this time his t ropes have increased more from prior History of mitral regurgitation Hypertension Anxiety Depression Former nicotine dependence Current marijuana use History of alcoholism Monitor vital signs Monitor CBC Monitor CMP Continue telemetry monitoring Trend troponin Continue antiemetics continue IV fluids Continue IV Protonix GI eval the patient, recommended that patient history of nisin fundoplication in April 2022, recommend general surgery evaluation Cardiology following, recommend holding of lisinopril General surgery consulted,Patient scheduled for laparoscopic repair of hiatal hernia on Monday,09/25/[address] Pavon Labs and medication were reviewed.. Continue same treatment. Continue with symptomatic treatment. Resume home medication. Monitor labs and vitals. DVT and GI prophylaxis. Further recommendations as per clinical course of the patient Dictation was produced using [employer] dictation software. please excuse any grammatical, word or spelling errors. Objective - Vital Signs Vital signs: Vital Signs Temp 98 F 09/22/23 08:05 Pulse 76 09/22/23 08:05 Resp 17 09/22/23 08:05 BP 138/88 09/22/23 08:05 Pulse Ox 98 09/22/23 08:05 FiO2 Intake & Output 09/21/23 09/22/23 09/22/23 18:59 06:59 18:59 Intake Total 20 Output Total 200 Balance -180 Weight 54.431 kg Intake: IV 20 Invasive Line 1 20 Oral 0 Output: Urine 200 Other: Voiding Method Toilet Toilet Urinal Urinal # Voids 1 - Labs CBC & Chem 7: 09/22/23 10:39 09/22/23 10:39 Labs: Abnormal Lab Results - Last 24 Hours (Table) 04/18/24 04/18/24 Range/Units 10:15 16:18 Sodium 152 H 150 H (137-145) mmol/L Chloride 113 H (98-107) mmol/L Carbon Dioxide 31 H (22-30) mmol/L BUN 36 H (9-20) mg/dL Glucose 110 H (74-99) mg/dL
--- NOTE | 2023-09-22 13:48 | P.PN ---
Subjective Progress Note Date: 09/22/23 CHIEF COMPLAINT: Nausea and vomiting HISTORY OF PRESENT ILLNESS: Patient has a known moderate hiatal hernia. Presents with nausea and vomiting. Patient is spitting up clearish emesis. Afebrile. WBC 7.5 Hgb 13.4 platelets 256 sodium is 150 potassium is 2.9 creatinine 0.92 PHYSICAL EXAM: VITAL SIGNS: Reviewed. GENERAL: Well-developed in no acute distress. ABDOMEN: Soft. Nondistended. NEUROLOGIC: Alert and oriented. Cranial nerves II through XII grossly intact. ASSESSMENT: 1. Dysphagia x 2 months 2. Recurrent moderate-sized hiatal hernia. Initial repair with Dr. Cunningham 2 years ago 3. Recurrent nausea and vomiting 4. Hypernatremia 5. Hypokalemia PLAN: -Patient completed upper GI today. Awaiting final results -Keep patient n.p.o. for now -Patient scheduled for laparoscopic repair of recurrent hiatal hernia on Monday,09/25/[address] Pavon -Continue to correct electrolytes and medically optimize patient -Patient evaluated by cardiology and is stable from cardiac perspective -Continue IV fluids -Continue antiemetics Physician Ink Jet Operator note has been reviewed by physician. Signing provider agrees with the documented findings, assessment, and plan of care. Objective - Vital Signs Vital signs: Vital Signs Temp 97.8 F 09/22/23 11:30 Pulse 66 09/22/23 11:30 Resp 18 09/22/23 11:30 BP 118/76 09/22/23 11:30 Pulse Ox 96 09/22/23 11:30 FiO2 Intake & Output 09/21/23 09/22/23 09/22/23 18:59 06:59 18:59 Intake Total 20 Output Total 200 Balance -180 Weight 54.431 kg Intake: IV 20 Invasive Line 1 20 Oral 0 Output: Urine 200 Other: Voiding Method Toilet Toilet Urinal Urinal # Voids 1 - Labs CBC & Chem 7: 09/22/23 10:39 09/22/23 10:39 Labs: Abnormal Lab Results - Last 24 Hours (Table) 09/21/23 09/22/23 09/22/23 Range/Units 16:18 10:39 10:39 Lymphocytes # 0.7 L (1.0-4.8) k/uL Sodium 150 H 150 H (137-145) mmol/L Potassium 2.9 L (3.5-5.1) mmol/L Chloride 112 H (98-107) mmol/L Carbon Dioxide 32 H (22-30) mmol/L BUN 29 H (9-20) mg/dL Glucose 155 H (74-99) mg/dL Calcium 8.3 L (8.4-10.2) mg/dL ALT 60 H (4-49) U/L Total Protein 5.1 L (6.3-8.2) g/dL Albumin 2.8 L (3.5-5.0) g/dL
[2023-09-22] MEDS: POTASSIUM CHLORIDE ER 20 MEQ TAB.ER PO SCH (14:15)
--- NOTE | 2023-09-22 15:52 | FL ---
EXAMINATION TYPE: FL UGI w esophagus DATE OF EXAM: 09/22/2023 COMPARISON: None HISTORY: Nausea vomiting TECHNIQUE: A single contrast UGI study is performed. FINDINGS: Fluoroscopy time: 1 minute 38 seconds. DAP: 2196.30 Images: 275. The esophagus dilates to normal caliber normal contour to the gastroesophageal junction. Gastroesopha geal junction opens to normal caliber. The horizontal drinking position, there is near complete empty ing of the esophageal bolus. Note is made of hesitancy during swallowing. The oral phase is extended. There appears to be normal t ransit to the gastroesophageal junction. A few tertiary contractions are evident during the examinati on compatible with presbyesophagus. Small hiatal hernia is present. There are multiple episodes of re flux during the examination. Single contrast imaging through the fundus body and antrum of the stomach suggests some mild gastric fold hypertrophy within the fundus and proximal body. This could be due to incomplete distention. There is marked hesitancy of contrast passing into the second portion of the duodenum.. After a long period second portion duodenum is identified on the overhead radiographs. No obvious stenosis is evid ent. Consider a more distal obstruction. Additional workup is recommended IMPRESSION: 1. Marked delay in passage of contrast into the small bowel. Consider possible obstruction more dista lly. 2. Marked delay in the oral phase of swallowing. Speech pathology evaluation modified barium swallow may be useful for additional evaluation. 3. Gastroesophageal reflux. 4. Mild presbyesophagus. 5. Somewhat prominent gastric folds within the fundus and proximal body. This may be due to incomplet e distention however. A [place] level critical message alert has been initiated for Yayasalome Jamir via the [employer] System on 09/22/2023 3:50 PM. This message alert has been sent to Magda Bowie via the preferences provided by the clinician for the receipt of Radiology Critical Findings. Message ID [id number].
[2023-09-22 16:26] VITALS: BMI 18.2
--- NOTE | 2023-09-22 17:39 | CA ---
Transthoracic Echo Report Name: Finn Alex Age: 67 Gender: M : 1955 Exam Date: 09/22/2023 11:36 Exam Location: [facility] Ht (in): 68 Wt (lb): 120 Ordering Physician: Nan Jefferson Attending/Referring Phys: [id number], Ronny Field Agronomist Brittney Torres RCS Procedure CPT: Indications: lv function, elevated trops Cardiac Hx: Technical Quality: Technically difficult study Contrast 1: Definity Total Dose (mL): 2 Contrast 2: Total Dose (mL): MEASUREMENTS (Male / Female) Normal Values FINDINGS Left Ventricle Left ventricular ejection fraction is estimated at 60-65 % by visual. Right Ventricle Right ventricle not well visualized. Right Atrium Right atrium not well visualized. Left Atrium Left atrium not well visualized. Mitral Valve Mitral valve not assessed. Aortic Valve Aortic valve not assessed. Tricuspid Valve Tricuspid valve not assessed. Pulmonic Valve Pulmonic valve not assessed. Pericardium No pericardial effusion. Aorta Aortic root and proximal ascending aorta not assessed. CONCLUSIONS Normal LV systolic Previewed by: Dr. Kashmir Odell MD (Electronically Signed) Final Date: 22 September 2023 17:38
[2023-09-23] MEDS: ONDANSETRON 4 MG/2 ML VIAL IVP PRN (02:53)
[2023-09-23 06:43] LABS: MCH 30.7 pg (25.0-35.0); MCHC 30.8 g/dL (31.0-37.0); MCV 99.5 fL (80.0-100.0); Macrocytosis Slight; Mean Platelet Volume 9.3; Platelet Count 243 k/uL (150-450); RBC 4.22 m/uL (4.30-5.90); RDW 14.6 % (11.5-15.5); WBC 8.3 k/uL (3.8-10.6)
[2023-09-23 06:56] LABS: ALT 51 U/L (4-49); AST 36 U/L (17-59); African American GFR (CKD) >90 (>60 ml/min/1.73 sqM); Albumin 2.8 g/dL (3.5-5.0); Alkaline Phosphatase 93 U/L (38-126); Anion Gap 7 mmol/L; Blood Urea Nitrogen 20 mg/dL (9-20); Calcium 8.3 mg/dL (8.4-10.2); Carbon Dioxide 28 mmol/L (22-30); Chloride 116 mmol/L (98-107); Glucose 148 mg/dL (74-99); Non-African American GFR(CKD) >90 (>60 ml/min/1.73 sqM); Potassium 3.5 mmol/L (3.5-5.1); Sodium 151 mmol/L (137-145); Total Bilirubin 0.6 mg/dL (0.2-1.3); Total Protein 5.3 g/dL (6.3-8.2)
--- NOTE | 2023-09-23 09:11 | P.PN ---
Subjective Progress Note Date: 09/23/23 Principal diagnosis: Epigastric discomfort The patient is a pleasant 67-year-old gentleman who is known to our service from before with a past medical history significant for history of smoking currently he is not a smoker and history of alcohol use as well as hypertension and d epression presented to the hospital or was admitted to the hospital with intractable nausea and vomiting and epigastric discomfort and he was diagnosed with gallbladder disease and the plan is to pursue laparoscopic cholecystectomy. We consulted to see the patient because of abnormal cardiac enzymes but the patient did not have any symptoms of chest pain or chest discomfort or shortness of breath and the echo revealed normal LV systolic function and also he underwent a heart catheterization in 2019 showed normal coronaries September 23, 2023 The patient was seen and evaluated this morning. He is feeling much better in terms of nausea and vomiting. He is not experiencing any chest pain or chest discomfort. The plan is to pursue the laparoscopic cholecystectomy this coming Monday. Vitals are stable. The echo as described above showed normal LV systolic function with no significant valvular abnormalities. The examination revealed regular rhythm with soft systolic murmur and clear breathing sounds bilaterally and no carotid bruit and no edema was noted Assessment Gallbladder disease Nausea and vomiting secondary to the above Mildly abnormal cardiac enzymes not consistent with acute coronary syndrome Hypertension appears to be under good control History of smoking History of alcohol use Depression/anxiety Plan Continue the current medical regimen The patient can proceed with the surgery Monitor for any symptoms of chest pain or chest discomfort Follow-up with the patient Objective - Vital Signs Vital signs: Vital Signs Temp 98.2 F 09/22/23 20:10 Pulse 71 09/23/23 04:00 Resp 16 09/23/23 04:00 BP 145/82 09/23/23 04:00 Pulse Ox 94 L 09/22/23 23:11 FiO2 Intake & Output 09/22/23 09/23/23 09/23/23 18:59 06:59 18:59 Intake Total 30 Balance 30 Weight 54.431 kg Intake: IV 30 Invasive Line 1 10 Invasive Line 2 20 Other: Voiding Method Toilet Toilet Urinal Urinal - Labs CBC & Chem 7: 09/23/23 05:59 09/23/23 05:59 Labs: Abnormal Lab Results - Last 24 Hours (Table) 09/22/23 09/22/23 09/22/23 Range/Units 10:39 10:39 21:55 RBC (4.30-5.90) m/uL MCHC (31.0-37.0) g/dL Lymphocytes # 0.7 L (1.0-4.8) k/uL Sodium 150 H 150 H (137-145) mmol/L Potassium 2.9 L (3.5-5.1) mmol/L Chloride 112 H (98-107) mmol/L Carbon Dioxide 32 H (22-30) mmol/L BUN 29 H (9-20) mg/dL Glucose 155 H (74-99) mg/dL Calcium 8.3 L (8.4-10.2) mg/dL ALT 60 H (4-49) U/L Total Protein 5.1 L (6.3-8.2) g/dL Albumin 2.8 L (3.5-5.0) g/dL 09/23/23 09/23/23 Range/Units 05:59 05:59 RBC 4.22 L (4.30-5.90) m/uL MCHC 30.8 L (31.0-37.0) g/dL Lymphocytes # (1.0-4.8) k/uL Sodium 151 H (137-145) mmol/L Potassium (3.5-5.1) mmol/L Chloride 116 H (98-107) mmol/L Carbon Dioxide (22-30) mmol/L BUN (9-20) mg/dL Glucose 148 H (74-99) mg/dL Calcium 8.3 L (8.4-10.2) mg/dL ALT 51 H (4-49) U/L Total Protein 5.3 L (6.3-8.2) g/dL Albumin 2.8 L (3.5-5.0) g/dL
[2023-09-23] MEDS: DEXTROSE 5% IN WATER 1,000 ML IV SCH (10:23)
--- NOTE | 2023-09-23 11:04 | P.PN ---
Subjective patient is seen for follow-up for hypernatremia. Serum sodium improved to 150 yesterday. Patient is maintained on D5 0.45. sodium staying at 150-151. No significant diarrhea. Patient is able to tolerate oral intake. Objective - Vital Signs Vital signs: Vital Signs Temp 98 F 09/23/23 08:30 Pulse 65 09/23/23 08:30 Resp 17 09/23/23 08:30 BP 158/96 09/23/23 08:30 Pulse Ox 98 09/23/23 08:30 FiO2 Intake & Output 09/22/23 09/23/23 09/23/23 18:59 06:59 18:59 Intake Total 30 10 Output Total 300 Balance 30 -290 Weight 54.431 kg Intake: IV 30 10 Invasive Line 1 10 Invasive Line 2 20 10 Output: Urine 300 Other: Voiding Method Toilet Toilet Toilet Urinal Urinal Urinal # Voids 1 - Exam patient is awake, comfortable, no acute distress Examination of the heart S1 and S2 Examination of the lungs bilateral breath sounds are heard Abdomen is soft nontender Examination of lower extremities shows no evidence of edema [employer]PER[employer] exam grossly intact - Labs CBC & Chem 7: 09/23/23 05:59 09/23/23 05:59 Labs: Abnormal Lab Results - Last 24 Hours (Table) 09/22/23 09/22/23 09/22/23 Range/Units 10:39 10:39 21:55 RBC (4.30-5.90) m/uL MCHC (31.0-37.0) g/dL Lymphocytes # 0.7 L (1.0-4.8) k/uL Sodium 150 H 150 H (137-145) mmol/L Potassium 2.9 L (3.5-5.1) mmol/L Chloride 112 H (98-107) mmol/L Carbon Dioxide 32 H (22-30) mmol/L BUN 29 H (9-20) mg/dL Glucose 155 H (74-99) mg/dL Calcium 8.3 L (8.4-10.2) mg/dL ALT 60 H (4-49) U/L Total Protein 5.1 L (6.3-8.2) g/dL Albumin 2.8 L (3.5-5.0) g/dL 04/20/24 04/20/24 Range/Units 05:59 05:59 RBC 4.22 L (4.30-5.90) m/uL MCHC 30.8 L (31.0-37.0) g/dL Lymphocytes # (1.0-4.8) k/uL Sodium 151 H (137-145) mmol/L Potassium (3.5-5.1) mmol/L Chloride 116 H (98-107) mmol/L Carbon Dioxide (22-30) mmol/L BUN (9-20) mg/dL Glucose 148 H (74-99) mg/dL Calcium 8.3 L (8.4-10.2) mg/dL ALT 51 H (4-49) U/L Total Protein 5.3 L (6.3-8.2) g/dL Albumin 2.8 L (3.5-5.0) g/dL Assessment and Plan Assessment: 1. Hypernatremia associated with free water deficit. Currently maintained on half normal saline which we will continue. Serum sodium staying at 150-151.. 2. Volume depletion 3. Acute kidney injury, prerenal 4. Hypertension with blood pressure currently on the lower side. Heber inhibitors on hold. 5. Lactic acidosis associated with hypotension 6. Intractable nausea and vomiting Plan: change IV fluids to D5W Repeat labs in a.m. Continue to encourage increased oral intake particularly fluids.
--- NOTE | 2023-09-23 14:12 | P.PN ---
Subjective Progress Note Date: 09/23/23 patient is 67-year-old gentleman past medical history significant for hypertension, depression, marijuana use who presented to ER for worsening nausea and vomiting. Patient has been admitted multiple times in the past with similar episodes and has been seen by GI with endoscopies done. Patient last admission was beginning of this month at which time patient was seen by GI, did not recommend any endoscopy, last endoscopy was done in 08/10/2023 with findings of moderate hiatal hernia and mild esophagitis. Patient has been taking his Reglan at home but ran out of it. Following that his nausea and vomiting worsened. Denies abdominal pain. There is no complaint of chest pain or shortness of breath. Patient is complaining of poor appetite. Denies any fever or chills. There is no complaint of orthopnea or PND Initial lab work done in the ER showed WBC 13.1, hemoglobin 15.4, platelet count 368, INR 1.2, sodium 151, potassium 4.5, BUN 40, creatinine 1.14, lactate 4.4, AST 108, ALT 92, alk phos 137, troponin 0.151, amylase 141 Influenza A not detected Influenza B not detected RSV not detected COVID-19 not detected EKG done in the ER showed heart rate of 108, UT interval 102, QRS 78, T-segment depression seen in leads II, III, aVF and V3, V4 V5 V6, no T-wave inversions seen. Chest x-ray done in the ER no acute process seen Patient admitted to internal medicine service 09/21. Patient seen and examined.General surgery consulted,Patient scheduled for laparoscopic repair of hiatal hernia on Monday,09/25/[address] Pavon. Still having nausea. Sodium this morning is 150, potassium is 2.9, placement ordered 09/22. Patient seen and examined.upper GI barium swallow done on 09/21 showed marked delay in passage of contrast into the small bowel considered possible obstruction more distally, mild delay in the oral phase of swallowing, speech pathology evaluation should be considered as well. blood work from today showed WBC 8.3, hemoglobin 13, platelet count 243, sodium 151, potassium 3.5, BUN 20, creatinine 0.68. keep patient nothing by mouth REVIEW OF SYSTEMS: CONSTITUTIONAL: No fever, no malaise,. CARDIOVASCULAR: No chest pain, no palpitations, no syncope. PULMONARY: No shortness of breath, no cough, GASTROINTESTINAL: No diarrhea, no abdominal pain. NEUROLOGICAL: No headaches, no weakness, PHYSICAL EXAMINATION: GENERAL: The patient is alert and oriented x3, not in any acute distress. Well developed, well nourished. HEENT: Pupils are round and equally reacting to light. EOMI. No scleral icterus. No conjunctival pallor. Normocephalic, atraumatic. No pharyngeal erythema. No thyromegaly. CARDIOVASCULAR: S1 and S2 present. No murmurs, rubs, or gallops. PULMONARY: Chest is clear to auscultation, no wheezing or crackles. ABDOMEN: Soft, nontender, nondistended, normoactive bowel sounds. No palpable organomegaly. MUSCULOSKELETAL: No joint swelling or deformity. EXTREMITIES: No cyanosis, clubbing, or pedal edema. NEUROLOGICAL: Gross neurological examination did not reveal any focal deficits. SKIN: No rashes. Assessment and plan Dehydration Hypernatremia Lactic acidosis Elevated LFTs Nausea and vomiting Elevated troponin, patient has history of elevated troponins but this time his tropes have increased more from prior History of mitral regurgitation Hypertension Anxiety Depression Former nicotine dependence Current marijuana use History of alcoholism Monitor vital signs Monitor CBC Monitor CMP Continue telemetry monitoring Trend troponin keep patient nothing by mouth Continue antiemetics continue IV fluids Continue IV Protonix GI eval the patient, recommended that patient history of nisin fundoplication in April 2022, recommend general surgery evaluation General surgery following, upper GI barium swallow done on 09/21 showed marked delay in passage of contrast into the small bowel considered possible obstruction more distally, mild delay in the oral phase of swallowing, speech pathology evaluation should be considered as well.. Patient scheduled for laparoscopic repair of hiatal hernia on Monday,09/25/[address] Pavon Labs and medication were reviewed.. Continue same treatment. Continue with symptomatic treatment. Resume home medication. Monitor labs and vitals. DVT and GI prophylaxis. Further recommendations as per clinical course of the patient Dictation was produced using [employer] dictation software. please excuse any grammatical, word or spelling errors. Objective - Vital Signs Vital signs: Vital Signs Temp 98 F 09/23/23 08:30 Pulse 65 09/23/23 08:30 Resp 17 09/23/23 08:30 BP 158/96 09/23/23 08:30 Pulse Ox 98 09/23/23 08:30 FiO2 Intake & Output 09/22/23 09/23/23 09/23/23 18:59 06:59 18:59 Intake Total 30 10 Output Total 300 Balance 30 -290 Weight 54.431 kg Intake: IV 30 10 Invasive Line 1 10 Invasive Line 2 20 10 Output: Urine 300 Other: Voiding Method Toilet Toilet Toilet Urinal Urinal Urinal - Labs CBC & Chem 7: 09/23/23 05:59 09/23/23 05:59 Labs: Abnormal Lab Results - Last 24 Hours (Table) 09/22/23 09/22/23 09/22/23 Range/Units 10:39 10:39 21:55 RBC (4.30-5.90) m/uL MCHC (31.0-37.0) g/dL Lymphocytes # 0.7 L (1.0-4.8) k/uL Sodium 150 H 150 H (137-145) mmol/L Potassium 2.9 L (3.5-5.1) mmol/L Chloride 112 H (98-107) mmol/L Carbon Dioxide 32 H (22-30) mmol/L BUN 29 H (9-20) mg/dL Glucose 155 H (74-99) mg/dL Calcium 8.3 L (8.4-10.2) mg/dL ALT 60 H (4-49) U/L Total Protein 5.1 L (6.3-8.2) g/dL Albumin 2.8 L (3.5-5.0) g/dL 09/23/23 09/23/23 Range/Units 05:59 05:59 RBC 4.22 L (4.30-5.90) m/uL MCHC 30.8 L (31.0-37.0) g/dL Lymphocytes # (1.0-4.8) k/uL Sodium 151 H (137-145) mmol/L Potassium (3.5-5.1) mmol/L Chloride 116 H (98-107) mmol/L Carbon Dioxide (22-30) mmol/L BUN (9-20) mg/dL Glucose 148 H (74-99) mg/dL Calcium 8.3 L (8.4-10.2) mg/dL ALT 51 H (4-49) U/L Total Protein 5.3 L (6.3-8.2) g/dL Albumin 2.8 L (3.5-5.0) g/dL
--- NOTE | 2023-09-23 20:16 | P.PN ---
Subjective Principal diagnosis: CHIEF COMPLAINT: Nausea and vomiting HISTORY OF PRESENT ILLNESS: Patient has a known moderate hiatal hernia. P resents with nausea and vomiting. Patient is spitting up clearish emesis. Afebrile. PHYSICAL EXAM: VITAL SIGNS: Reviewed. GENERAL: Well-developed in no acute distress. ABDOMEN: Soft. Nondistended. NEUROLOGIC: Alert and oriented. Cranial nerves II through XII grossly intact. ASSESSMENT: 1. Dysphagia x 2 months 2. Recurrent moderate-sized hiatal hernia. Initial repair with Dr. Cunningham 2 years ago 3. Recurrent nausea and vomiting 4. Hypernatremia 5. Hypokalemia PLAN: -Patient completed upper GI today. Awaiting final results -Keep patient n.p.o. for now -Patient scheduled for laparoscopic repair of recurrent hiatal hernia on Monday,09/25/[address] Pavon -Continue to correct electrolytes and medically optimize patient -Patient evaluated by cardiology and is stable from cardiac perspective -Continue IV fluids -Continue antiemetics Objective - Vital Signs Vital signs: Vital Signs Temp 98 F 09/23/23 08:30 Pulse 70 09/23/23 17:15 Resp 17 09/23/23 17:15 BP 127/75 09/23/23 17:15 Pulse Ox 96 09/23/23 17:15 FiO2 Intake & Output 09/23/23 09/23/23 09/24/23 06:59 18:59 06:59 Intake Total 30 20 Output Total 500 Balance 30 -480 Intake: IV 30 20 Invasive Line 1 10 Invasive Line 2 20 20 Output: Urine 500 Other: Voiding Method Toilet Toilet Urinal Urinal # Voids 1 - Labs CBC & Chem 7: 09/23/23 05:59 09/23/23 05:59 Labs: Abnormal Lab Results - Last 24 Hours (Table) 09/22/23 09/23/23 09/23/23 Range/Units 21:55 05:59 05:59 RBC 4.22 L (4.30-5.90) m/uL MCHC 30.8 L (31.0-37.0) g/dL Sodium 150 H 151 H (137-145) mmol/L Chloride 116 H (98-107) mmol/L Glucose 148 H (74-99) mg/dL Calcium 8.3 L (8.4-10.2) mg/dL ALT 51 H (4-49) U/L Total Protein 5.3 L (6.3-8.2) g/dL Albumin 2.8 L (3.5-5.0) g/dL
[2023-09-24 08:23] LABS: ALT 44 U/L (4-49); AST 30 U/L (17-59); African American GFR (CKD) >90 (>60 ml/min/1.73 sqM); Albumin 2.5 g/dL (3.5-5.0); Alkaline Phosphatase 90 U/L (38-126); Anion Gap 1 mmol/L; Blood Urea Nitrogen 12 mg/dL (9-20); Calcium 7.8 mg/dL (8.4-10.2); Carbon Dioxide 31 mmol/L (22-30); Chloride 108 mmol/L (98-107); Glucose 137 mg/dL (74-99); Non-African American GFR(CKD) >90 (>60 ml/min/1.73 sqM); Sodium 140 mmol/L (137-145); Total Bilirubin 0.6 mg/dL (0.2-1.3); Total Protein 4.9 g/dL (6.3-8.2)
[2023-09-24 08:28] LABS: Basophils % (A) 0 %; Eosinophils # (A) 0.1 k/uL (0-0.7); Eosinophils % (A) 1 %; HCT 38.5 % (39.0-53.0); HGB 12.4 gm/dL (13.0-17.5); Lymphocytes % (A) 14 %; MCH 30.7 pg (25.0-35.0); MCHC 32.2 g/dL (31.0-37.0); MCV 95.6 fL (80.0-100.0); Monocytes # (A) 0.4 k/uL (0-1.0); Monocytes % (A) 5 %; Neutrophils # (A) 5.9 k/uL (1.3-7.7); Neutrophils % (A) 79 %; Platelet Count 235 k/uL (150-450); RBC 4.03 m/uL (4.30-5.90); RDW 14.6 % (11.5-15.5); WBC 7.5 k/uL (3.8-10.6)
--- NOTE | 2023-09-24 09:07 | P.PN ---
Subjective Progress Note Date: 09/24/23 The patient has complaints of severe reflux. His esophagram upper GI shows evidence of reflux. On exam vital signs appear stable. Abdomen soft. Recurrent hiatal hernia with reflux and dysphagia. Patient will be scheduled for repair of hiatal hernia in the a.m. Objective - Vital Signs Vital signs: Vital Signs Temp 97.9 F 09/23/23 21:15 Pulse 70 09/24/23 05:00 Resp 16 09/24/23 05:00 BP 127/84 09/24/23 05:00 Pulse Ox 93 L 09/24/23 05:00 FiO2 Intake & Output 09/23/23 09/24/23 09/24/23 18:59 06:59 18:59 Intake Total 20 40 Output Total 500 825 Balance -480 -785 Intake: IV 20 40 Invasive Line 1 20 Invasive Line 2 20 20 Output: Urine 500 825 Other: Voiding Method Toilet Toilet Urinal Urinal # Voids 1 1 - Labs CBC & Chem 7: 09/24/23 07:37 09/24/23 07:37 Labs: Abnormal Lab Results - Last 24 Hours (Table) 09/24/23 09/24/23 Range/Units 07:37 07:37 RBC 4.03 L (4.30-5.90) m/uL Hgb 12.4 L (13.0-17.5) gm/dL Hct 38.5 L (39.0-53.0) % Potassium 3.0 L (3.5-5.1) mmol/L Chloride 108 H (98-107) mmol/L Carbon Dioxide 31 H (22-30) mmol/L Glucose 137 H (74-99) mg/dL Calcium 7.8 L (8.4-10.2) mg/dL Total Protein 4.9 L (6.3-8.2) g/dL Albumin 2.5 L (3.5-5.0) g/dL
--- NOTE | 2023-09-24 10:23 | P.PN ---
Subjective Progress Note Date: 09/24/23 Principal diagnosis: Epigastric discomfort The patient is a pleasant 67-year-old gentleman who is known to our service from before with a past medical history significant for history of smoking currently he is not a smoker and history of alcohol use as well as hypertension and d epression presented to the hospital or was admitted to the hospital with intractable nausea and vomiting and epigastric discomfort and he was diagnosed with gallbladder disease and the plan is to pursue laparoscopic cholecystectomy. We consulted to see the patient because of abnormal cardiac enzymes but the patient did not have any symptoms of chest pain or chest discomfort or shortness of breath and the echo revealed normal LV systolic function and also he underwent a heart catheterization in 2019 showed normal coronaries September 23, 2023 The patient was seen and evaluated this morning. He is feeling much better in terms of nausea and vomiting. He is not experiencing any chest pain or chest discomfort. The plan is to pursue the laparoscopic cholecystectomy this coming Monday. Vitals are stable. The echo as described above showed normal LV systolic function with no significant valvular abnormalities. The examination revealed regular rhythm with soft systolic murmur and clear breathing sounds bilaterally and no carotid bruit and no edema was noted September 24, 2023 The patient was seen and evaluated this morning. He is asymptomatic from the cardiovascular standpoint of view and remains hemodynamically stable with good blood pressure and heart rate. The plan tentatively is to move forward with the gallbladder surgery tomorrow. The echo showed normal LV systolic function with no significant valvular abnormalities. The blood work showed slightly lower hemoglobin but still stable. From a cardiovascular standpoint of view. The examination revealed regular rhythm with clear breathing sounds bilaterally and no lower extremities edema noted Assessment Gallbladder disease Nausea and vomiting secondary to the above Mildly abnormal cardiac enzymes not consistent with acute coronary syndrome Hypertension appears to be under good control History of smoking History of alcohol use Depression/anxiety Plan Continue the current medical regimen The patient can proceed with the surgery Follow-up with the patient on as needed care Objective - Vital Signs Vital signs: Vital Signs Temp 97.9 F 09/24/23 08:00 Pulse 72 09/24/23 08:00 Resp 18 09/24/23 08:00 BP 125/75 09/24/23 08:00 Pulse Ox 92 L 09/24/23 08:00 FiO2 Intake & Output 09/23/23 09/24/23 09/24/23 18:59 06:59 18:59 Intake Total 20 40 20 Output Total 500 825 150 Balance -103 -948 -903 Intake: IV 20 40 20 Invasive Line 1 20 10 Invasive Line 2 20 20 10 Output: Urine 500 825 150 Other: Voiding Method Toilet Toilet Toilet Urinal Urinal Urinal # Voids 1 1 - Labs CBC & Chem 7: 09/24/23 07:37 09/24/23 07:37 Labs: Abnormal Lab Results - Last 24 Hours (Table) 09/24/23 09/24/23 Range/Units 07:37 07:37 RBC 4.03 L (4.30-5.90) m/uL Hgb 12.4 L (13.0-17.5) gm/dL Hct 38.5 L (39.0-53.0) % Potassium 3.0 L (3.5-5.1) mmol/L Chloride 108 H (98-107) mmol/L Carbon Dioxide 31 H (22-30) mmol/L Glucose 137 H (74-99) mg/dL Calcium 7.8 L (8.4-10.2) mg/dL Total Protein 4.9 L (6.3-8.2) g/dL Albumin 2.5 L (3.5-5.0) g/dL
--- NOTE | 2023-09-24 11:22 | P.PN ---
Subjective patient is seen for follow-up for hypernatremia. Serum sodium improved to 140. Started on D5W yesterday. No significant complaints. No diarrhea. Patient is able to tolerate oral intake. Objective - Vital Signs Vital signs: Vital Signs Temp 97.9 F 09/24/23 08:00 Pulse 72 09/24/23 08:00 Resp 18 09/24/23 08:00 BP 125/75 09/24/23 08:00 Pulse Ox 92 L 09/24/23 08:00 FiO2 Intake & Output 09/23/23 09/24/23 09/24/23 18:59 06:59 18:59 Intake Total 20 40 20 Output Total 500 825 150 Balance -480 -785 -130 Intake: IV 20 40 20 Invasive Line 1 20 10 Invasive Line 2 20 20 10 Output: Urine 500 825 150 Other: Voiding Method Toilet Toilet Toilet Urinal Urinal Urinal # Voids 1 1 - Exam patient is awake, comfortable, no acute distress Examination of the heart S1 and S2 Examination of the lungs bilateral breath sounds are heard Abdomen is soft nontender Examination of lower extremities shows no evidence of edema [employer] exam grossly intact - Labs CBC & Chem 7: 09/24/23 07:37 09/24/23 07:37 Labs: Abnormal Lab Results - Last 24 Hours (Table) 09/24/23 09/24/23 Range/Units 07:37 07:37 RBC 4.03 L (4.30-5.90) m/uL Hgb 12.4 L (13.0-17.5) gm/dL Hct 38.5 L (39.0-53.0) % Potassium 3.0 L (3.5-5.1) mmol/L Chloride 108 H (98-107) mmol/L Carbon Dioxide 31 H (22-30) mmol/L Glucose 137 H (74-99) mg/dL Calcium 7.8 L (8.4-10.2) mg/dL Total Protein 4.9 L (6.3-8.2) g/dL Albumin 2.5 L (3.5-5.0) g/dL Assessment and Plan Assessment: 1. Hypernatremia associated with free water deficit. Currently maintained on D5W. 2. Volume depletion, improved 3. Acute kidney injury, prerenal 4. Hypertension with blood pressure currently on the lower side. Heber inhibitors on hold. 5. Lactic acidosis associated with hypotension 6. Intractable nausea and vomiting, improved 7. Hypokalemia Plan: Continue D5W, decrease rate to about 40 cc an hour. Repeat sodium this evening Encourage increase oral intake. Replace potassium
[2023-09-24] MEDS: POTASSIUM CHLORIDE ER 20 MEQ TAB.ER PO SCH (11:24)
[2023-09-24] MEDS ORDERED: Potassium Replacement Protocol 1 EACH MISC MISCELLANE PRN (12:37)
--- NOTE | 2023-09-24 12:38 | P.PN ---
Subjective Progress Note Date: 09/24/23 patient is 67-year-old gentleman past medical history significant for hypertension, depression, marijuana use who presented to ER for worsening nausea and vomiting. Patient has been admitted multiple times in the past with similar episodes and has been seen by GI with endoscopies done. Patient last admission was beginning of this month at which time patient was seen by GI, did not recommend any endoscopy, last endoscopy was done in 08/10/2023 with findings of moderate hiatal hernia and mild esophagitis. Patient has been taking his Reglan at home but ran out of it. Following that his nausea and vomiting worsened. Denies abdominal pain. There is no complaint of chest pain or shortness of breath. Patient is complaining of poor appetite. Denies any fever or chills. There is no complaint of orthopnea or PND Initial lab work done in the ER showed WBC 13.1, hemoglobin 15.4, platelet count 368, INR 1.2, sodium 151, potassium 4.5, BUN 40, creatinine 1.14, lactate 4.4, AST 108, ALT 92, alk phos 137, troponin 0.151, amylase 141 Influenza A not detected Influenza B not detected RSV not detected COVID-19 not detected EKG done in the ER showed heart rate of 108, ND interval 102, QRS 78, T-segment depression seen in leads II, III, aVF and V3, V4 V5 V6, no T-wave inversions seen. Chest x-ray done in the ER no acute process seen Patient admitted to internal medicine service 09/21. Patient seen and examined.General surgery consulted,Patient scheduled for laparoscopic repair of hiatal hernia on Monday,09/25/[address] Pavon. Still having nausea. Sodium this morning is 150, potassium is 2.9, placement ordered 09/22. Patient seen and examined.upper GI barium swallow done on 09/21 showed marked delay in passage of contrast into the small bowel considered possible obstruction more distally, mild delay in the oral phase of swallowing, speech pathology evaluation should be considered as well. blood work from today showed WBC 8.3, hemoglobin 13, platelet count 243, sodium 151, potassium 3.5, BUN 20, creatinine 0.68. keep patient nothing by mouth. 09/23. Patient seen and examined. Blood work done this morning showed WBC 10.5, hemoglobin 12.4, platelet count 235, sodium 140, potassium 3, BUN 12, creatinine 0.69. Potassium replacement ordered. CT abdomen and pelvis without contrast ordered Still having nausea and vomiting. REVIEW OF SYSTEMS: CONSTITUTIONAL: No fever, no malaise,. CARDIOVASCULAR: No chest pain, no palpitations, no syncope. PULMONARY: No shortness of breath, no cough, GASTROINTESTINAL: No diarrhea, no abdominal pain. NEUROLOGICAL: No headaches, no weakness, PHYSICAL EXAMINATION: GENERAL: The patient is alert and oriented x3, not in any acute distress. Well developed, well nourished. HEENT: Pupils are round and equally reacting to light. EOMI. No scleral icterus. No conjunctival pallor. Normocephalic, atraumatic. No pharyngeal erythema. No thyromegaly. CARDIOVASCULAR: S1 and S2 present. No murmurs, rubs, or gallops. PULMONARY: Chest is clear to auscultation, no wheezing or crackles. ABDOMEN: Soft, nontender, nondistended, normoactive bowel sounds. No palpable organomegaly. MUSCULOSKELETAL: No joint swelling or deformity. EXTREMITIES: No cyanosis, clubbing, or pedal edema. NEUROLOGICAL: Gross neurological examination did not reveal any focal deficits. SKIN: No rashes. Assessment and plan Dehydration Hypernatremia Lactic acidosis Elevated LFTs Nausea and vomiting Elevated troponin, patient has history of elevated troponins but this time his tropes have increased more from prior History of mitral regurgitation Hypertension Anxiety Depression Former nicotine dependence Current marijuana use History of alcoholism Monitor vital signs Monitor CBC Monitor CMP Continue telemetry monitoring Trend troponin keep patient nothing by mouth Potassium is 3, potassium replacement ordered Ordered CT abdominal pelvis Continue antiemetics continue IV fluids Continue IV Protonix GI eval the patient, recommended that patient history of nisin fundoplication in April 2022, recommend general surgery evaluation General surgery following, upper GI barium swallow done on 09/21 showed marked delay in passage of contrast into the small bowel considered possible obstruction more distally, mild delay in the oral phase of swallowing, speech pathology evaluation should be considered as well.. Patient scheduled for laparoscopic repair of hiatal hernia on Monday,09/25/[address] Pavon Nephrology following Labs and medication were reviewed.. Continue same treatment. Continue with symptomatic treatment. Resume home medication. Monitor labs and vitals. DVT and GI prophylaxis. Further recommendations as per clinical course of the patient Dictation was produced using dragon dictation software. please excuse any gra mmatical, word or spelling errors. Objective - Vital Signs Vital signs: Vital Signs Temp 97.9 F 09/24/23 08:00 Pulse 72 09/24/23 08:00 Resp 18 09/24/23 08:00 BP 125/75 09/24/23 08:00 Pulse Ox 92 L 09/24/23 08:00 FiO2 Intake & Output 09/23/23 09/24/23 09/24/23 18:59 06:59 18:59 Intake Total 20 40 20 Output Total 500 825 150 Balance -480 -785 -130 Intake: IV 20 40 20 Invasive Line 1 20 10 Invasive Line 2 20 20 10 Output: Urine 500 825 150 Other: Voiding Method Toilet Toilet Toilet Urinal Urinal Urinal # Voids 1 1 - Labs CBC & Chem 7: 09/24/23 07:37 09/24/23 07:37 Labs: Abnormal Lab Results - Last 24 Hours (Table) 09/24/23 09/24/23 Range/Units 07:37 07:37 RBC 4.03 L (4.30-5.90) m/uL Hgb 12.4 L (13.0-17.5) gm/dL Hct 38.5 L (39.0-53.0) % Potassium 3.0 L (3.5-5.1) mmol/L Chloride 108 H (98-107) mmol/L Carbon Dioxide 31 H (22-30) mmol/L Glucose 137 H (74-99) mg/dL Calcium 7.8 L (8.4-10.2) mg/dL Total Protein 4.9 L (6.3-8.2) g/dL Albumin 2.5 L (3.5-5.0) g/dL
[2023-09-24] MEDS ORDERED: POTASSIUM CHLORIDE 10 MEQ in WATER FOR INJECTION 1 100ML.BAG IVPB SCH (13:00)
--- NOTE | 2023-09-24 13:25 | CT ---
EXAMINATION TYPE: CT abdomen pelvis wo con DATE OF EXAM: 09/24/2023 COMPARISON: 08/08/2023 HISTORY: 67-year-old male Nausea, vomiting. CT DLP: 352.7 mGycm. Automated exposure control for dose reduction was used. TECHNIQUE: Contiguous axial scanning of the abdomen and pelvis without IV contrast. Coronal and sagit haley reconstructions performed. FINDINGS: Heart normal size without pericardial effusion. Strandy scarring at the periphery of the left base. N o pleural effusion. Small hiatal hernia. Couple tiny cysts at the hepatic dome measuring up to 8 mm. Otherwise, noncontrast appearance of the liver, right adrenal gland, kidneys, spleen, and mildly atrophic pancreas show no gross abnormality. Gallbladder surgically absent. Similar mild diffuse thickening left adrenal gland without discrete nodularity. Exam limitations due to extensive streak and beam hardening artifact relating to scattered retained b arium material throughout the colon. Normal appendix. The fold thickening along the ascending colon, axial image 67. No significant stool burden. No pericolonic inflammatory change. Bladder distended. Mild circumferential bladder wall thickening likely chronic from the patient. Ther e is a 3.3 cm left lateral bladder wall diverticulum present. Prostate gland borderline to mildly enl arged at 4.2 cm wide. No abnormal fluid collection in the pelvis or pelvic lymphadenopathy. Bones: Moderate degenerative disc disease L3-L4 and L4-L5 along with hypertrophic facet arthropathy m id to lower lumbar spine. [facility] throughout the lower thoracic and upper lumbar spine. IMPRESSION: 1. Small hiatal hernia. 2. Exam limitations due to extensive artifact from scatter retained barium contrast material. 3. Mild circumferential bladder wall thickening likely chronic from the patient. Unchanged 3.3 cm le ft lateral bladder wall diverticulum. Borderline to mild prostatomegaly at 4.2 cm wide.
[2023-09-25 09:19] LABS: HCT 38.9 % (39.0-53.0); HGB 12.8 gm/dL (13.0-17.5); MCH 31.1 pg (25.0-35.0); MCV 94.2 fL (80.0-100.0); Mean Platelet Volume 9.7; Platelet Count 230 k/uL (150-450); RBC 4.12 m/uL (4.30-5.90); RDW 14.9 % (11.5-15.5); WBC 7.5 k/uL (3.8-10.6)
[2023-09-25 09:42] LABS: African American GFR (CKD) >90 (>60 ml/min/1.73 sqM); Anion Gap 1 mmol/L; Blood Urea Nitrogen 11 mg/dL (9-20); Calcium 7.9 mg/dL (8.4-10.2); Carbon Dioxide 29 mmol/L (22-30); Chloride 108 mmol/L (98-107); Glucose 113 mg/dL (74-99); Non-African American GFR(CKD) >90 (>60 ml/min/1.73 sqM); Potassium 3.6 mmol/L (3.5-5.1); Sodium 138 mmol/L (137-145)
--- NOTE | 2023-09-25 09:50 | P.PN ---
Subjective Patient is seen in follow-up for hypernatremia. Sodium level 138 this morning. Vomited last night. Oral intake poor. Vital signs are stable. General: No acute distress. HEENT: Head exam is unremarkable. LUNGS: No audible rhonchi or wheezes. HEART: Rate and Rhythm are regular. ABDOMEN: Nontender. EXTREMITITES: No edema. Objective - Vital Signs Vital signs: Vital Signs Temp 97.9 F 09/25/23 08:54 Pulse 74 09/25/23 08:54 Resp 16 09/25/23 08:54 BP 130/80 09/25/23 08:54 Pulse Ox 94 L 09/25/23 08:54 FiO2 Intake & Output 09/24/23 09/25/23 09/25/23 18:59 06:59 18:59 Intake Total 40 300 10 Output Total 300 400 Balance -260 -100 10 Intake: IV 40 40 10 Invasive Line 1 20 20 10 Invasive Line 2 20 20 Intake, IV Titration 240 Amount Dextrose 5% in Water 1, 240 000 ml @ 40 mls/hr IV . Q24H [facility] Rx#:[id number] Oral 20 Output: Urine 300 400 Other: Voiding Method Toilet Toilet Toilet Urinal Urinal Urinal - Labs CBC & Chem 7: 09/25/23 07:58 09/24/23 15:53 Labs: Abnormal Lab Results - Last 24 Hours (Table) 09/25/23 Range/Units 07:58 RBC 4.12 L (4.30-5.90) m/uL Hgb 12.8 L (13.0-17.5) gm/dL Hct 38.9 L (39.0-53.0) % Assessment and Plan Plan: Assessment: 1. Hypernatremia from lack of oral water intake. Improved with D5W. 2. Acute kidney injury secondary to vasomotor nephropathy. Resolved. UA fairly benign. 3. Hypertension with chronic kidney disease. Controlled. 4. Intractable nausea and vomiting. 5. Hypokalemia from poor intake. Rule out magnesium deficiency. Plan: Hep-Lock IV fluids. Encouraged oral intake. Replace potassium. Check magnesium level.
[2023-09-25] MEDS: POTASSIUM CHLORIDE ER 20 MEQ TAB.ER PO STA (11:37)
[2023-09-25] MEDS: ONDANSETRON 4 MG/2 ML VIAL IVP ONE (13:25)
[2023-09-25] MEDS ORDERED: diphenhydrAMINE 50 MG/ML 1 ML VIAL ONE (13:35)
[2023-09-25] MEDS: DEXAMETHASONE SOD PHOSPHATE 4 MG/ML 1 ML VIAL IVP ONE (13:37)
[2023-09-25] MEDS: diphenhydrAMINE 50 MG/ML 1 ML VIAL IVP ONE (13:37)
[2023-09-25] MEDS: IV FLUID CONTINUATION 1,000 ML IV ONE (13:37)
[2023-09-25] MEDS: LIDOCAINE 1%-EPI 1:100,000 20 ML VIAL SQ ONE ×2 (14:00→14:47)
[2023-09-25] MEDS ORDERED: PROPOFOL 10 MG/ML 20 ML VIAL IV ONE (14:09)
[2023-09-25] MEDS ORDERED: PHENYLEPHRINE 10 MG/ML VIAL ONE (14:09)
[2023-09-25] MEDS ORDERED: ePHEDrine 50 MG/ML 1 ML VIAL ONE (14:09)
[2023-09-25] MEDS ORDERED: NEOSTIGMINE 1 MG/ML 10 ML VIAL ONE (14:09)
[2023-09-25] MEDS ORDERED: SUCCINYLCHOLINE CHLORIDE 200 MG/10 ML VIAL IV ONE (14:09)
[2023-09-25] MEDS ORDERED: fentaNYL (PF) 50 MCG/ML 2 ML AMP ONE (14:09)
[2023-09-25] MEDS ORDERED: LIDOCAINE 1% INJ 10MG/ML (20 ML MDV) ONE (14:09)
[2023-09-25] MEDS ORDERED: GLYCOPYRROLATE 0.2 MG/ML 2 ML VIAL ONE (14:09)
[2023-09-25] MEDS ORDERED: ROCURONIUM 10 MG/ML (5 ML VIAL) IV ONE (14:09)
[2023-09-25] MEDS: HEPARIN SODIUM,PORCINE 5,000 UNIT/ML 1 ML VIAL SQ ONE (14:11)
[2023-09-25] MEDS: LACTATED RINGERS 1,000 ML IV ONE (14:58)
[2023-09-25] MEDS ORDERED: NALOXONE 0.4 MG/ML 1 ML VIAL IV PRN (15:44)
[2023-09-25] MEDS ORDERED: ONDANSETRON 4 MG/2 ML VIAL IVP PRN (15:44)
[2023-09-25] MEDS ORDERED: ACETAMINOPHEN TAB 325 MG TAB PO PRN (15:44)
--- NOTE | 2023-09-25 16:27 | P.PN ---
Subjective Progress Note Date: 09/25/23 CHIEF COMPLAINT: Nausea and vomiting HISTORY OF PRESENT ILLNESS: Patient has a known moderate hiatal hernia. No new complaints. Vital stable. WBC 7.5 Hgb 12.8 sodium 138 potassium 3.6 PHYSICAL EXAM: VITAL SIGNS: Reviewed. GENERAL: Well-developed in no acute distress. ABDOMEN: Soft. Nondistended. NEUROLOGIC: Alert and oriented. Cranial nerves II through XII grossly intact. ASSESSMENT: 1. Dysphagia x 2 months 2. Recurrent moderate-sized hiatal hernia. Initial repair with Dr. Cunningham 2 years ago 3. Recurrent nausea and vomiting 4. Hypernatremia 5. Hypokalemia PLAN: -Patient scheduled for laparoscopic repair of recurrent hiatal hernia today with Dr. Pavon Physician Abap Developer note has been reviewed by physician. Signing provider agrees with the documented findings, assessment, and plan of care. Objective - Vital Signs Vital signs: Vital Signs Temp 97.9 F 09/25/23 08:54 Pulse 76 09/25/23 11:40 Resp 18 09/25/23 11:40 BP 138/87 09/25/23 11:40 Pulse Ox 96 09/25/23 11:40 FiO2 Intake & Output 09/24/23 09/25/23 09/25/23 18:59 06:59 18:59 Intake Total 40 300 10 Output Total 300 400 350 Balance -260 -100 -340 Weight 54.431 kg Intake: IV 40 40 10 Invasive Line 1 20 20 10 Invasive Line 2 20 20 Intake, IV Titration 240 Amount Dextrose 5% in Water 1, 240 000 ml @ 40 mls/hr IV . Q24H [facility]S INCLUDE 234 BEDS AT THE [facility] Rx#:[id number] Oral 20 Output: Urine 300 400 350 Other: Voiding Method Toilet Toilet Toilet Urinal Urinal Urinal - Labs CBC & Chem 7: 09/25/23 07:58 09/25/23 07:58 Labs: Abnormal Lab Results - Last 24 Hours (Table) 09/25/23 09/25/23 Range/Units 07:58 07:58 RBC 4.12 L (4.30-5.90) m/uL Hgb 12.8 L (13.0-17.5) gm/dL Hct 38.9 L (39.0-53.0) % Chloride 108 H (98-107) mmol/L Glucose 113 H (74-99) mg/dL Calcium 7.9 L (8.4-10.2) mg/dL
[2023-09-25] MEDS: KETOROLAC 15 MG/ML 1 ML VIAL IVP SCH (16:45)
[2023-09-25] MEDS: LACTATED RINGERS 1,000 ML IV SCH (16:45)
[2023-09-25] MEDS: DOCUSATE 100 MG CAP PO SCH (19:27)
[2023-09-25] MEDS: HYDROcodone/APAP 5-325MG 1 EACH TAB PO PRN (19:27)
--- NOTE | 2023-09-25 19:44 | P.OP ---
Date of Procedure: 09/25/23 Preoperative Diagnosis: recurrent paraesophageal hiatal hernia Postoperative Diagnosis: same Procedure(s) Performed: laparoscopic repair of paraesophageal hiatal hernia with mesh Anesthesia: CHANCE Surgeon: Rickie Pavon Estimated Blood Loss (ml): 10 Pathology: none sent Condition: stable Disposition: PACU Description of Procedure: Patient was placed on the operative table in the supine position. He received general anesthesia. His was positioned in the dorsal lithotomy position. His abdomen is prepped and draped in sterile fashion. The skin incision sites were anesthetized 1% local Xylocaine. Using 11 blade the skin incised in the left periumbilical area. Then using a 5 mm optical trocar the peritoneal cavity is entered. The abdomen then insufflated. After adequate insufflation a another 5 mm trocar was placed in the right epigastric, right lateral, left epigastric, left lateral position. The left lobe of the liver was retracted. And then the hiatal hernia was visualized. Using the harmonic scissors the hiatal hernia sac was dissected free. The stomach was then reduced back into the peritoneal cavity. There was a good length of esophagus after the dissection. The crural defect was then closed with 2-0 Ethibond suture. after the diaphragm repair the hiatal hernia was buttressed with Dorena bio a mesh. This was secured with 2- 0 Ethibond suture. The abdomen is irrigated. There is no bleeding seen. The trocars were withdrawn. The skin was closed with interrupted 3-0 Monocryl suture. Dermabond dressing applied. Patient taught procedure well. He was sent to recovery room in stable condition.
[2023-09-25] MEDS ORDERED: Magnesium Replacement Protocol 1 EACH MISC MISCELLANE PRN (20:23)
--- NOTE | 2023-09-25 20:30 | P.PN ---
Subjective Progress Note Date: 09/25/23 Patient evaluated in follow up today, currently NPO for surgical hiatal hernia repair today. Report no pain, or nausea at this time, main complaint is persistent hiccups. Abdominal pelvis CT reveals small hiatal hernia, mild circumferential bladder wall thickening likely chronic from the patient, unchanged 3.3 cm left lateral bladder wall diverticulum. Borderline to mild prostatomegaly at 4.2 cm wide. WBC 7.5, hemoglobin 12.8, sodium 138, potassium 3.6, BUN 11, creatinine 0.68, magnesium 1.6. General surgery following, upper GI barium swallow done on 09/21 showed marked delay in passage of contrast into the small bowel considered possible obstruction more distally, mild delay in the oral phase of swallowing, speech pathology evaluation should be considered as well. REVIEW OF SYSTEMS: CONSTITUTIONAL: No fever, no malaise,. CARDIOVASCULAR: No chest pain, no palpitations, no syncope. PULMONARY: No shortness of breath, no cough, GASTROINTESTINAL: No diarrhea, no abdominal pain. NEUROLOGICAL: No headaches, no weakness. PHYSICAL EXAMINATION: GENERAL: The patient is alert and oriented x3, not in any acute distress. Well developed, well nourished. HEENT: Pupils are round and equally reacting to light. EOMI. No scleral icterus. No conjunctival pallor. Normocephalic, atraumatic. No pharyngeal erythema. No thyromegaly. CARDIOVASCULAR: S1 and S2 present. No murmurs, rubs, or gallops. PULMONARY: Chest is clear to auscultation, no wheezing or crackles. ABDOMEN: Soft, nontender, nondistended, normoactive bowel sounds. No palpable organomegaly. MUSCULOSKELETAL: No joint swelling or deformity. EXTREMITIES: No cyanosis, clubbing, or pedal edema. NEUROLOGICAL: Gross neurological examination did not reveal any focal deficits. SKIN: No rashes. Assessment and plan Dehydration Hypernatremia from poor free water intake, normalized. Lactic acidosis Elevated LFTs, normalized unclear significance. Nausea and vomiting Elevated troponin, patient has history of elevated troponins but this time his troponin have increased more from prior cardiology following and felt not due to ACS. History of mitral regurgitation Hypertension currently normotensive Anxiety/Depression History of [place] fundoplication in April 2022 Former nicotine dependence Current marijuana use History of alcoholism Plan Cardiology recommending to continue with current cardiac medications and follow up as needed NPO pending surgical intervention of the hiatal hernia, diet per surgery Potassium normalized Continue IV fluids Continue antiemetics Replace magnesium Repeat labs in the AM The impression and plan of care has been dictated by Desiree Clarke, Nurse Practitioner as directed. Dr. Cyndi MD I have performed a history and physical examination and medical decision making of this patient, discussed the same with the dictator, and agree with the dictators assessment and plan as written, documented as a scribe. Based on total visit time, I have performed more than 50% of this visit. Objective - Vital Signs Vital signs: Vital Signs Temp 97.8 F 09/25/23 17:01 Pulse 75 09/25/23 17:01 Resp 16 09/25/23 17:01 BP 144/75 09/25/23 17:01 Pulse Ox 97 09/25/23 17:01 FiO2 Intake & Output 09/25/23 09/25/23 09/26/23 06:59 18:59 06:59 Intake Total 300 960 Output Total 400 355 Balance -100 605 Weight 54.431 kg Intake: IV 40 960 Invasive Line 1 20 10 Invasive Line 2 20 Intake, IV Titration 240 Amount Dextrose 5% in Water 1, 240 000 ml @ 40 mls/hr IV . Q24H [facility] Rx#:[id number] Oral 20 Output: Urine 400 350 Estimated Blood Loss 5 Other: Voiding Method Toilet Toilet Urinal Urinal - Labs CBC & Chem 7: 09/25/23 07:58 09/25/23 07:58 Labs: Abnormal Lab Results - Last 24 Hours (Table) 09/25/23 09/25/23 Range/Units 07:58 07:58 RBC 4.12 L (4.30-5.90) m/uL Hgb 12.8 L (13.0-17.5) gm/dL Hct 38.9 L (39.0-53.0) % Chloride 108 H (98-107) mmol/L Glucose 113 H (74-99) mg/dL Calcium 7.9 L (8.4-10.2) mg/dL Assessment and Plan Time with Patient: Less than 30
[2023-09-25] MEDS: HYDROmorphone 1 MG/ML 1 ML SYRINGE IVP PRN (21:08)
[2023-09-25] MEDS: MAGNESIUM SULFATE-D5W PMX 1 GM in DEXTROSE/WATER 1 100ML.BAG IVPB SCH (21:12)
[2023-09-26 06:00] VITALS: RESP 16
[2023-09-26] MEDS: ENOXAPARIN 40 MG/0.4 ML SYRINGE SQ SCH (09:26)
[2023-09-26 10:21] LABS: Basophils % (A) 0 %; Eosinophils % (A) 0 %; HCT 41.9 % (39.0-53.0); HGB 13.9 gm/dL (13.0-17.5); Lymphocytes # (A) 0.9 k/uL (1.0-4.8); Lymphocytes % (A) 8 %; MCH 31.6 pg (25.0-35.0); MCHC 33.2 g/dL (31.0-37.0); MCV 95.2 fL (80.0-100.0); Mean Platelet Volume 11.7; Monocytes # (A) 0.5 k/uL (0-1.0); Monocytes % (A) 4 %; Neutrophils # (A) 9.8 k/uL (1.3-7.7); Neutrophils % (A) 87 %; Platelet Count 226 k/uL (150-450); RDW 15.3 % (11.5-15.5); WBC 11.3 k/uL (3.8-10.6)
--- NOTE | 2023-09-26 10:33 | P.PN ---
Subjective Patient is seen in follow-up for hypernatremia. Sodium level 138 yesterday. Tolerating clear diet. No vomiting last night or today. Vital signs are stable. General: No acute distress. HEENT: Head exam is unremarkable. LUNGS: No audible rhonchi or wheezes. HEART: Rate and Rhythm are regular. ABDOMEN: Nontender. EXTREMITITES: No edema. Objective - Vital Signs Vital signs: Vital Signs Temp 97.4 F L 09/26/23 08:53 Pulse 86 09/26/23 08:53 Resp 16 09/26/23 08:53 BP 90/58 09/26/23 08:53 Pulse Ox 97 09/26/23 08:53 FiO2 Intake & Output 09/25/23 09/26/23 09/26/23 18:59 06:59 18:59 Intake Total 960 260 240 Output Total 355 400 Balance 605 -140 240 Weight 54.431 kg 57.8 kg Intake: IV 960 20 Invasive Line 1 10 20 Oral 240 240 Output: Urine 350 400 Estimated Blood Loss 5 Other: Voiding Method Toilet Toilet Urinal Urinal - Labs CBC & Chem 7: 09/26/23 08:34 09/25/23 07:58 Labs: Abnormal Lab Results - Last 24 Hours (Table) 09/26/23 Range/Units 08:34 WBC 11.3 H (3.8-10.6) k/uL Neutrophils # 9.8 H (1.3-7.7) k/uL Lymphocytes # 0.9 L (1.0-4.8) k/uL Assessment and Plan Plan: Assessment: 1. Hypernatremia from lack of oral water intake. Improved with D5W. 2. Acute kidney injury secondary to vasomotor nephropathy. Resolved. UA fairly benign. 3. Hypertension with chronic kidney disease. Controlled. 4. Intractable nausea and vomiting. Improved. 5. Hypokalemia from poor intake. Rule out magnesium deficiency. Replaced. Plan: Maintain IV fluids for now. Encouraged oral intake. DC lisinopril as blood pressure on the lower side. Add oral magnesium oxide.
[2023-09-26 10:54] LABS: ALT 128 U/L (4-49); AST 140 U/L (17-59); African American GFR (CKD) >90 (>60 ml/min/1.73 sqM); Albumin 2.7 g/dL (3.5-5.0); Alkaline Phosphatase 147 U/L (38-126); Anion Gap 8 mmol/L; Blood Urea Nitrogen 14 mg/dL (9-20); Calcium 7.9 mg/dL (8.4-10.2); Carbon Dioxide 24 mmol/L (22-30); Chloride 104 mmol/L (98-107); Glucose 98 mg/dL (74-99); Magnesium 1.5 mg/dL (1.6-2.3); Non-African American GFR(CKD) >90 (>60 ml/min/1.73 sqM); Sodium 136 mmol/L (137-145); Total Bilirubin 0.8 mg/dL (0.2-1.3); Total Protein 5.2 g/dL (6.3-8.2)
[2023-09-26] MEDS: MAGNESIUM OXIDE 400 MG TAB PO SCH (11:55)
[2023-09-26 12:44] VITALS: BP 94/62; PULSE 95; TEMP 97.9
[2023-09-26] MEDS: MAGNESIUM SULFATE-D5W PMX 1 GM in DEXTROSE/WATER 1 100ML.BAG IVPB SCH (12:55)
--- NOTE | 2023-09-26 13:25 | P.PN ---
Subjective Progress Note Date: 09/26/23 CHIEF COMPLAINT: Nausea and vomiting HISTORY OF PRESENT ILLNESS: Postop day #1 status post laparoscopic repair of paraesophageal hiatal hernia with mesh. Patient is tolerating diet. He only had 1 episode of spitting up after drinking the pop. He he reports his pain is controlled. Denies any nausea or vomiting. Afebrile. WBC is up at 11.3. Sodium is 136 magnesium is 1.5 total bilirubin 0.8 LFTs are elevated AST 140 ALT 128 and alk phos 147 PHYSICAL EXAM: VITAL SIGNS: Reviewed. GENERAL: Well-developed in no acute distress. ABDOMEN: Soft. Nondistended. NEUROLOGIC: Alert and oriented. Cranial nerves II through XII grossly intact. ASSESSMENT: 1. Paraesophageal hiatal hernia status postrepair with mesh 2. Dysphagia secondary to the hiatal hernia 3. Elevated LFTs secondary to the liver retractor PLAN: -Patient can be discharged from surgical standpoint -Continue full liquid diet for the next 2 weeks. No straws or carbonated beverages Physician Apprise Counselor note has been reviewed by physician. Signing provider agrees with the documented findings, assessment, and plan of care. Objective - Vital Signs Vital signs: Vital Signs Temp 97.9 F 09/26/23 12:05 Pulse 95 09/26/23 12:05 Resp 16 09/26/23 12:05 BP 94/62 09/26/23 12:05 Pulse Ox 95 09/26/23 12:05 FiO2 Intake & Output 09/25/23 09/26/23 09/26/23 18:59 06:59 18:59 Intake Total 960 260 240 Output Total 355 400 Balance 605 -140 240 Weight 54.431 kg 57.8 kg Intake: IV 960 20 Invasive Line 1 10 20 Oral 240 240 Output: Urine 350 400 Estimated Blood Loss 5 Other: Voiding Method Toilet Toilet Urinal Urinal # Bowel Movements 1 - Labs CBC & Chem 7: 09/26/23 08:34 09/26/23 08:34 Labs: Abnormal Lab Results - Last 24 Hours (Table) 09/26/23 09/26/23 Range/Units 08:34 08:34 WBC 11.3 H (3.8-10.6) k/uL Neutrophils # 9.8 H (1.3-7.7) k/uL Lymphocytes # 0.9 L (1.0-4.8) k/uL Sodium 136 L (137-145) mmol/L Calcium 7.9 L (8.4-10.2) mg/dL Magnesium 1.5 L (1.6-2.3) mg/dL AST 140 H (17-59) U/L ALT 128 H (4-49) U/L Alkaline Phosphatase 147 H (38-126) U/L Total Protein 5.2 L (6.3-8.2) g/dL Albumin 2.7 L (3.5-5.0) g/dL
--- NOTE | 2023-09-27 15:52 | P.DS ---
Providers Date of admission: 09/20/23 20:31 Attending physician: Magda Bowie Consults: 09/20/23 17:48 Consult Physician Routine Consulting Provider: Andrew Brown Consult Reason/Comments: elevated troponin Do you want consulting provider notified?: Yes Consult Physician Routine Consulting Provider: Trudy Duke Consult Reason/Comments: hypernatremia Do you want consulting provider notified?: Yes 09/21/23 11:01 Consult Physician Routine Consulting Provider: Rickie Pavon Consult Reason/Comments: spitting up, phelgm, difficulty swallowing, hx karissa with you Do you want consulting provider notified?: Yes Primary care physician: Misael Hopkins Hospital Course: Final Diagnosis Dehydration Hypernatremia from poor free water intake, normalized. Lactic acidosis Elevated LFTs, normalized unclear significance. Nausea and vomiting status post surgical hiatal hernia repair this admission Elevated troponin, patient has history of elevated troponins but this time his troponin have increased more from prior cardiology following and felt not due to ACS. History of mitral regurgitation Hypertension currently normotensive Anxiety/Depression History of Karissa fundoplication in April 2022 Former nicotine dependence Current marijuana use History of alcoholism Discharge Disposition Stable for discharge home. He underwent hiatal hernia repair this admission with Dr. Pavon. His LFTs are elevated however after discussion with surgery this was felt due to the surgery itself and he will repeat a CMP outpatient in 2 to 3 days. Upon discontinued due to hypotension. He is recommended to take a full liquid diet for the next 2 weeks. Patient is also advised to buy [id number] magnesium supplementation. Follow-up with PCP 1 to 2 days. Hospital Course patient is 67-year-old gentleman past medical history significant for hypertension, depression, marijuana use who presented to ER for worsening nausea and vomiting. Patient has been admitted multiple times in the past with similar episodes and has been seen by GI with endoscopies done. Patient last admission was beginning of this month at which time patient was seen by GI, did not recommend any endoscopy, last endoscopy was done in 08/10/2023 with findings of moderate hiatal hernia and mild esophagitis. Patient has been taking his Reglan at home but ran out of it. Following that his nausea and vomiting worsened. De nies abdominal pain. There is no complaint of chest pain or shortness of breath. Patient is complaining of poor appetite. Denies any fever or chills. There is no complaint of orthopnea or PND. Initial lab work done in the ER showed WBC 13.1, hemoglobin 15.4, platelet count 368, INR 1.2, sodium 151, potassium 4.5, BUN 40, creatinine 1.14, lactate 4.4, AST 108, ALT 92, alk phos 137, troponin 0.151, amylase 141. Viral panel negative for influenza, covid, RSV. EKG done in the ER showed heart rate of 108, KS interval 102, QRS 78, T- segment depression seen in leads II, III, aVF and V3, V4 V5 V6, no T-wave inversions seen. Chest x-ray done in the ER no acute process seen. Patient admitted to internal medicine service with consult placed to general surgery. GI barium swallow done on 09/21 showed marked delay in passage of contrast into the small bowel considered possible obstruction more distally, mild delay in the oral phase of swallowing, speech pathology evaluation should be considered as well. Patient then had a CT abdomen pelvis with contrast ordered showing a small hiatal hernia exam limitations due to extensive artifact from scatter retained barium contrast material. Mild circumferential bladder wall thickening likely chronic from the patient. An unchanged 2.3 cm left lateral bladder wall diverticulum. Borderline to mild prostate a megaly at 4.2 cm wide. Patient was evaluated closely by general surgery and was recommended to undergo repair of the hiatal hernia which was done on 09/27/2023. Patient was monitored overnight and is currently tolerating a full liquid diet with no further reports of nausea or vomiting. Cardiology and nephrology have evaluated the patient this admission. Patient a limited echocardiogram completed due to the troponin elevation, which reveals a normal LV systolic function. No indications for acute coronary syndrome. The programmable has normalized down to 136, his renal function is within normal limits. Postsurgically patient did have elevated LFTs, was felt due to the surgery itself and was advised to complete a CMP outpatient and follow-up with general surgery in 1 week. Patient does not have any chest pain no shortness of breath he has been up ambulating and in the shower today. He will be discharged home. Please see medication reconciliation for a list of current medications. Thank you for allowing us to participate in the care of this patient. The impression and plan of care has been dictated by Desiree Clarke, Nurse Practitioner as directed. Dr. Cyndi MD I have performed a history and physical examination and medical decision making of this patient, discussed the same with the dictator, and agree with the dictators assessment and plan as written, documented as a scribe. Based on total visit time, I have performed more than 50% of this visit. Patient Condition at Discharge: Fair Plan - Discharge Summary Discharge Rx Participant: No New Discharge Prescriptions: New HYDROcodone/APAP 5-325MG [[place] 5-325] 1 tab PO Q6HR PRN 2 Days #8 tab PRN Reason: Pain Continue Metoprolol Tartrate [Lopressor] 12.5 mg PO BID busPIRone HCL [Buspar] 7.5 mg PO BID Albuterol Inhaler [Ventolin Hfa Inhaler] 2 puff INHALATION Q4HR PRN PRN Reason: Shortness Of Breath Sertraline [Zoloft] 25 mg PO DAILY Nitroglycerin Sl Tabs [Nitrostat] 0.4 mg SUBLINGUAL Q5M PRN PRN Reason: Chest Pain Pantoprazole [Protonix] 40 mg PO AC-BRKFST #30 tab Discontinued lisinopriL [Zestril] 5 mg PO DAILY #30 tab Discharge Medication List Metoprolol Tartrate [Lopressor] 12.5 mg PO BID 08/20/18 [History] Nitroglycerin Sl Tabs [Nitrostat] 0.4 mg SUBLINGUAL Q5M PRN 08/08/23 [History] Sertraline [Zoloft] 25 mg PO DAILY 08/08/23 [History] busPIRone HCL [Buspar] 7.5 mg PO BID 08/08/23 [History] Pantoprazole [Protonix] 40 mg PO AC-BRKFST #30 tab 09/08/23 [Rx] Albuterol Inhaler [Ventolin Hfa Inhaler] 2 puff INHALATION Q4HR PRN 09/25/23 [History] HYDROcodone/APAP 5-325MG [[place] 5-325] 1 tab PO Q6HR PRN 2 Days #8 tab 09/26/23 [Rx] Follow up Appointment(s)/Referral(s): Misael Hopkins MD [Primary Care Provider] - 09/27/23 10:00 am [facility]NON-STAFF] - Rickie Pavon MD [STAFF PHYSICIAN] - 10/03/23 1:30 pm Ambulatory/Diagnostic Orders: Comprehensive Metabolic Panel [LAB.AMB] Time Frame: 3 Days, Location: None Selected Magnesium [LAB.AMB] Location: None Selected Patient Instructions/Handouts: Full Liquid Diet (GEN) Activity/Diet/Wound Care/Special Instructions: No driving while taking [place] No lifting over 10 pounds You may shower. No soaking or tub baths for 2 weeks Very light activity until you are reevaluated at your follow up appointment with your surgeon Continue a Full liquid diet for 2 weeks Take magnesium oxide 400 mg daily, can buy over the counter Repeat labs in 2 to 3 days. Follow up with your PCP in 1 to 2 days Discharge Disposition: HOME SELF-CARE
== END 2023-09-26 15:31 | disposition home or self-care (01) | DRG 327 ==
LOC: EC 14:30 → 3SCARD 20:31
PROVIDERS: ADMIT Hospitalist; ATTEND Hospitalist
PROC: 0BUT4JZ Supplement Diaphragm with Synthetic Substitute, Percutaneous Endoscopic Approach (ICD-10-PCS; principal; 2023-09-25 13:15)
DX: K44.9 Diaphragmatic hernia without obstruction or gangrene (principal); E87.0 Hyperosmolality and hypernatremia; E87.4 Mixed disorder of acid-base balance; N17.9 Acute kidney failure, unspecified; R62.7 Adult failure to thrive; E78.5 Hyperlipidemia, unspecified; E86.0 Dehydration; E87.6 Hypokalemia; F10.20 Alcohol dependence, uncomplicated; F32.A Depression, unspecified; F41.9 Anxiety disorder, unspecified; I12.9 Hypertensive chronic kidney disease with stage 1 through stage 4 chronic kidney disease, or unspecified chronic kidney disease; I25.10 Atherosclerotic heart disease of native coronary artery without angina pectoris; I34.0 Nonrheumatic mitral (valve) insufficiency; J43.9 Emphysema, unspecified; K21.00 Gastro-esophageal reflux disease with esophagitis, without bleeding; M06.9 Rheumatoid arthritis, unspecified; N18.9 Chronic kidney disease, unspecified; N32.3 Diverticulum of bladder; R13.10 Dysphagia, unspecified; Z79.899 Other long term (current) drug therapy; Z86.73 Personal history of transient ischemic attack (TIA), and cerebral infarction without residual deficits; Z87.891 Personal history of nicotine dependence; Z11.52 Encounter for screening for COVID-19
CPT/HCPCS: 36410; 36415; 71046; 74176; 74240; 76937; 80048; 80053; 81003; 82150; 83605; 83690; 83735; 84295; 84484; 85025; 85027; 85610; 85730; 87636; 93005; 93308; 96361; 96374; 96375; 99285

== ENCOUNTER 2023-10-05 23:20 | Observation (INO) | payer MEDICARE, OTHER ==
[2023-10-06] MEDS: SODIUM CHLORIDE 0.9% 1,000 ML IV STA (00:08)
[2023-10-06] MEDS: SODIUM CHLORIDE 0.9% 1,000 ML IV ONE ×2 (00:08→02:23)
[2023-10-06] MEDS: METOCLOPRAMIDE 5 MG/ML 2 ML VIAL IVP STA ×3 (00:08→03:19)
[2023-10-06] MEDS: ONDANSETRON 4 MG/2 ML VIAL IVP STA (00:32)
[2023-10-06 00:36] LABS: Basophils % (A) 0 %; Eosinophils % (A) 0 %; HCT 46.8 % (39.0-53.0); HGB 15.3 gm/dL (13.0-17.5); Lymphocytes # (A) 1.1 k/uL (1.0-4.8); Lymphocytes % (A) 9 %; MCH 31.2 pg (25.0-35.0); MCHC 32.6 g/dL (31.0-37.0); MCV 95.6 fL (80.0-100.0); Mean Platelet Volume 9.6; Monocytes # (A) 0.5 k/uL (0-1.0); Monocytes % (A) 4 %; Neutrophils # (A) 10.6 k/uL (1.3-7.7); Neutrophils % (A) 86 %; Platelet Count 413 k/uL (150-450); RBC 4.89 m/uL (4.30-5.90); RDW 15.5 % (11.5-15.5); WBC 12.3 k/uL (3.8-10.6)
[2023-10-06 00:53] LABS: ALT 41 U/L (4-49); African American GFR (CKD) 88 (>60 ml/min/1.73 sqM); Albumin 3.6 g/dL (3.5-5.0); Amylase 83 U/L (30-110); Anion Gap 14 mmol/L; Blood Urea Nitrogen 32 mg/dL (9-20); Calcium 9.5 mg/dL (8.4-10.2); Carbon Dioxide 30 mmol/L (22-30); Chloride 106 mmol/L (98-107); Glucose 151 mg/dL (74-99); Lipase 236 U/L (23-300); Non-African American GFR(CKD) 76 (>60 ml/min/1.73 sqM); Sodium 150 mmol/L (137-145); Total Protein 6.2 g/dL (6.3-8.2)
[2023-10-06 00:57] LABS: AST 63 U/L (17-59); Alkaline Phosphatase 146 U/L (38-126); Potassium 3.2 mmol/L (3.5-5.1)
[2023-10-06 01:02] LABS: INR 1.6 (<1.2); Prothrombin Time 16.3 sec (10.0-12.5)
[2023-10-06] MEDS: MORPHINE SULFATE 4 MG/ML SYRINGE IV STA (02:35)
[2023-10-06 05:00] LABS: Appearance,Urine Clear (Clear); Bilirubin,Urine Negative (Negative); Blood,Urine Negative (Negative); Color,Urine Light Yellow; Glucose,Urine (UA) Negative (Negative); Ketones,Urine 1+ (Negative); Leukocyte Esterase,Urine Negative (Negative); Nitrite,Urine Negative (Negative); PH, Urine 6.5 (5.0-8.0); Protein,Urine Trace (Negative); Specific Gravity,Urine 1.015 (1.001-1.035); Urobilinogen,Urine <2.0 mg/dL (<2.0)
[2023-10-06] MEDS ORDERED: MORPHINE SULFATE 4 MG/ML SYRINGE IV PRN (07:52)
[2023-10-06] MEDS ORDERED: ACETAMINOPHEN TAB 325 MG TAB PO PRN (07:52)
[2023-10-06] MEDS ORDERED: NALOXONE 0.4 MG/ML 1 ML VIAL IV PRN (07:52)
--- NOTE | 2023-10-06 07:57 | CT ---
EXAMINATION TYPE: CT abdomen pelvis w con CT DLP: 572.7 mGycm, Automated exposure control for dose reduction was used. DATE OF EXAM: 10/06/2023 3:37 AM COMPARISON: CT abdomen pelvis most recent from 09/24/2023. 03/14/2023. CLINICAL INDICATION:Male, 67 years old with history of post-surgical pain; abdominal pain with n,v. h x of hernia, Andrey. CHOLECYSTECTOMY UNKNOWN DATE AT LEAST SINCE AUGUST 2023-SEE PRIORS-4 MORE RECENT LAPROSCOPIC INCISIONS ON LOWER ABDOMEN,PT CANT REMEMBER WHAT FROM. pt unable to raise arms above head due to to post surgical pain. 09/29/2022. TECHNIQUE: Axial CT abdomen pelvis w con;Sagittal and coronal reformats were created on a separate w orkstation. Contrast used:100 mL of Isovue 300 with IV Contrast, (none if empty) Oral contrast used: without Oral Contrast (none if empty) FINDINGS: LOWER CHEST: Left lower lobe 10 mm nodule. ABDOMEN LIVER: Unremarkable GALLBLADDER AND BILE DUCTS: Unremarkable. PANCREAS: Unremarkable. SPLEEN: Unremarkable. ADRENAL GLANDS: Unremarkable. KIDNEYS AND URETERS: No evidence of hydronephrosis or renal calculus. The ureters are unremarkable. PELVIS BLADDER: Unremarkable REPRODUCTIVE: Unremarkable. ABDOMEN & PELVIS STOMACH AND BOWEL: No evidence of bowel obstruction. PERITONEUM/RETROPERITONEUM: Pneumoperitoneum throughout the upper abdomen. Free air extends up into the mediastinum superiorly. No organizing fluid collection. VASCULATURE: No evidence of aortic aneurysm. Atherosclerosis of the arterial vasculature. MUSCULOSKELETAL: No acute osseous abnormalities LYMPH NODES: No gross evidence for lymphadenopathy. SOFT TISSUE/ABDOMINAL WALL: Unremarkable IMPRESSION: 1. Scattered pneumoperitoneum throughout the upper abdomen likely postsurgical. No organizing fluid collection. Correlate with history of surgery and consider water-based upper GI to rule out anastomot ic leak. 2. Left lower lobe pulmonary nodule. Which is more pronounced compared to 2022 measuring up to 10 mm . Consider pet/CT to rule out underlying malignancy. Findings communicated to Dr. Wilian Romano on 10/06/2023 7:[address] Honorio Acuna.
--- NOTE | 2023-10-06 07:58 | ED ---
Abdominal Pain HPI - General Chief Complaint: Abdominal Pain Stated Complaint: NVD, Abdominal Pain Time Seen by Provider: 10/05/23 23:49 Source: patient Mode of arrival: ambulatory Limitations: altered mental status (Patient appears delirious) - History of Present Illness Initial Comments: This patient is 67-year-old man who presents with days of continuous vomiting and some epigastric abdominal pain. The patient usually takes Reglan at home for his vomiting but has run out of that medication for a couple of days. He has had multiple episodes of vomiting not seeing any blood or coffee-ground material. He is also feeling very weak. No fevers noted. MD Complaint: abdominal pain -: days(s) Location: epigastric Radiation: none Migration to: no migration Severity: moderate Quality: aching Consistency: constant Improves With: nothing Worsens With: nothing Associated Symptoms: nausea, vomiting - Related Data Home Medications Medication Instructions Recorded Confirmed Metoprolol Tartrate [Lopressor] 12.5 mg PO BID 08/20/18 09/20/23 Nitroglycerin Sl Tabs [Nitrostat] 0.4 mg SUBLINGUAL Q5M PRN 08/08/23 09/20/23 Sertraline [Zoloft] 25 mg PO DAILY 08/08/23 09/20/23 busPIRone HCL [Buspar] 7.5 mg PO BID 08/08/23 09/20/23 Albuterol Inhaler [Ventolin Hfa 2 puff INHALATION Q4HR PRN 09/25/23 09/25/23 Inhaler] Previous Rx's Medication Instructions Recorded Pantoprazole [Protonix] 40 mg PO AC-BRKFST #30 tab 09/08/23 HYDROcodone/APAP 5-325MG [[place] 1 tab PO Q6HR PRN 2 Days #8 tab 09/26/23 5-325] Allergies Allergy/AdvReac Type Severity Reaction Status Date / Time No Known Allergies Allergy Verified 09/20/23 16:35 Review of Systems ROS Statement: Those systems with pertinent positive or pertinent negative responses have been documented in the HPI. ROS Other: All systems not noted in ROS Statement are negative. Limitations: ROS unobtainable due to patients medical condition (Appears delirious) Constitutional: Reports: weakness. Denies: fever, chills Respiratory: Denies: cough, dyspnea Cardiovascular: Denies: chest pain, edema Gastrointestinal: Reports: abdominal pain, nausea, vomiting. Denies: diarrhea, hematemesis, melena Genitourinary: Denies: dysuria Musculoskeletal: Denies: back pain Skin: Denies: rash Neurological: Denies: headache Past Medical History Past Medical History: Asthma, Coronary Artery Disease (CAD), Chest Pain / Angina, CVA/TIA, GERD/Reflux, Hyperlipidemia, Hypertension, Pneumonia, Rheumatoid Arthritis (RA) Additional Past Medical History / Comment(s): MIGRAINES, HEART MURMUR, hx HIATAL HERNIA, ANEMIA, one dr told him he had a stroke at one time-no effects, varicose veins, history of incarcerated per esophageal hernia, status post robotic-assisted paraesophageal hernia repair and Frederick fundoplication on 04/12/2022. History of Any Multi-Drug Resistant Organisms: None Reported Past Surgical History: Cholecystectomy, Heart Catheterization, Hernia Repair, Orthopedic Surgery Additional Past Surgical History / Comment(s): Lt achilles tendon,RT SHOULDER surgery, RT ACHILLES TENDON reattached, HEMORRHOIDECTOMY, 13 FATTY TUMORS removed. left hand index finger surgery after injury, EGD WITH DILATION, paraesophageal hernia repair with Frederick fundoplication on 04/12/2022. Past Anesthesia/Blood Transfusion Reactions: No Reported Reaction Additional Past Anesthesia/Blood Transfusion Reaction / Comment(s): no hx blood transfusion Past Psychological History: Anxiety, Depression Smoking Status: Former smoker - Past Family History Mother Family Medical History: Cancer Father Additional Family Medical History / Comment(s): thinks aneurysm General Exam Limitations: no limitations General appearance: alert, in distress Head exam: Present: atraumatic, normocephalic Eye exam: Present: normal appearance. Absent: scleral icterus, conjunctival injection ENT exam: Present: mucous membranes dry Neck exam: Present: normal inspection, full ROM Respiratory exam: Present: normal lung sounds bilaterally. Absent: respiratory distress, wheezes, rales, rhonchi, stridor, accessory muscle use Cardiovascular Exam: Present: regular rate, normal rhythm, normal heart sounds. Absent: systolic murmur, diastolic murmur, rubs, gallop GI/Abdominal exam: Present: soft, tenderness, guarding. Absent: distended, rebound, rigid, mass, pulsatile mass, hernia Extremities exam: Present: normal inspection, normal capillary refill. Absent: pedal edema, calf tenderness Back exam: Present: normal inspection. Absent: CVA tenderness (R), CVA tenderness (L) Neurological exam: Present: alert Skin exam: Present: warm, dry, intact, normal color. Absent: rash Course Vital Signs 10/05/23 10/06/23 10/06/23 23:35 00:10 00:17 Temperature 98.7 F Pulse Rate 87 112 H 116 H Respiratory 20 18 22 Rate Blood Pressure 146/74 83/32 92/81 O2 Sat by Pulse 96 94 L 94 L Oximetry 10/06/23 10/06/23 10/06/23 01:09 02:36 03:00 Temperature Pulse Rate 85 80 73 Respiratory 18 18 16 Rate Blood Pressure 92/81 92/81 128/85 O2 Sat by Pulse 97 95 96 Oximetry 10/06/23 10/06/23 04:00 06:00 Temperature Pulse Rate 83 84 Respiratory 18 18 Rate Blood Pressure 137/97 131/89 O2 Sat by Pulse 95 97 Oximetry Medical Decision Making - Lab Data Result diagrams: 10/06/23 00:14 10/06/23 00:14 Lab Results 10/06/23 10/06/23 10/06/23 Range/Units 00:14 00:14 00:14 WBC 12.3 H (3.8-10.6) k/uL RBC 4.89 (4.30-5.90) m/uL Hgb 15.3 (13.0-17.5) gm/dL Hct 46.8 (39.0-53.0) % MCV 95.6 (80.0-100.0) fL MCH 31.2 (25.0-35.0) pg MCHC 32.6 (31.0-37.0) g/dL RDW 15.5 (11.5-15.5) % Plt Count 413 (150-450) k/uL MPV 9.6 Neutrophils % 86 % Lymphocytes % 9 % Monocytes % 4 % Eosinophils % 0 % Basophils % 0 % Neutrophils # 10.6 H (1.3-7.7) k/uL Lymphocytes # 1.1 (1.0-4.8) k/uL Monocytes # 0.5 (0-1.0) k/uL Eosinophils # 0.0 (0-0.7) k/uL Basophils # 0.0 (0-0.2) k/uL PT 16.3 H (10.0-12.5) sec INR 1.6 H (<1.2) APTT 27.0 (22.0-30.0) sec Sodium 150 H (137-145) mmol/L Potassium 3.2 L (3.5-5.1) mmol/L Chloride 106 (98-107) mmol/L Carbon Dioxide 30 (22-30) mmol/L Anion Gap 14 mmol/L BUN 32 H (9-20) mg/dL Creatinine 1.03 (0.66-1.25) mg/dL Est GFR (CKD-EPI)AfAm 88 (>60 ml/min/1.73 sqM) Est GFR (CKD-EPI)NonAf 76 (>60 ml/min/1.73 sqM) Glucose 151 H (74-99) mg/dL Lactic Ac Sepsis Rflx Plasma Lactic Acid Jack (0.7-2.0) mmol/L Calcium 9.5 (8.4-10.2) mg/dL Total Bilirubin 1.0 (0.2-1.3) mg/dL AST 63 H (17-59) U/L ALT 41 (4-49) U/L Alkaline Phosphatase 146 H (38-126) U/L Troponin I (0.000-0.034) ng/mL Total Protein 6.2 L (6.3-8.2) g/dL Albumin 3.6 (3.5-5.0) g/dL Amylase 83 (30-110) U/L Lipase 236 (23-300) U/L Urine Color Urine Appearance (Clear) Urine pH (5.0-8.0) Ur Specific [place] (1.001-1.035) Urine Protein (Negative) Urine Glucose (UA) (Negative) Urine Ketones (Negative) Urine Blood (Negative) Urine Nitrite (Negative) Urine Bilirubin (Negative) Urine Urobilinogen (<2.0) mg/dL Ur Leukocyte Esterase (Negative) 10/06/23 10/06/23 10/06/23 Range/Units 00:14 00:14 01:13 WBC (3.8-10.6) k/uL RBC (4.30-5.90) m/uL Hgb (13.0-17.5) gm/dL Hct (39.0-53.0) % MCV (80.0-100.0) fL MCH (25.0-35.0) pg MCHC (31.0-37.0) g/dL RDW (11.5-15.5) % Plt Count (150-450) k/uL MPV Neutrophils % % Lymphocytes % % Monocytes % % Eosinophils % % Basophils % % Neutrophils # (1.3-7.7) k/uL Lymphocytes # (1.0-4.8) k/uL Monocytes # (0-1.0) k/uL Eosinophils # (0-0.7) k/uL Basophils # (0-0.2) k/uL PT (10.0-12.5) sec INR (<1.2) APTT (22.0-30.0) sec Sodium (137-145) mmol/L Potassium (3.5-5.1) mmol/L Chloride (98-107) mmol/L Carbon Dioxide (22-30) mmol/L Anion Gap mmol/L BUN (9-20) mg/dL Creatinine (0.66-1.25) mg/dL Est GFR (CKD-EPI)AfAm (>60 ml/min/1.73 sqM) Est GFR (CKD-EPI)NonAf (>60 ml/min/1.73 sqM) Glucose (74-99) mg/dL Lactic Ac Sepsis Rflx Y Plasma Lactic Acid Jack 6.0 H* (0.7-2.0) mmol/L Calcium (8.4-10.2) mg/dL Total Bilirubin (0.2-1.3) mg/dL AST (17-59) U/L ALT (4-49) U/L Alkaline Phosphatase (38-126) U/L Troponin I 0.168 H* (0.000-0.034) ng/mL Total Protein (6.3-8.2) g/dL Albumin (3.5-5.0) g/dL Amylase (30-110) U/L Lipase (23-300) U/L Urine Color Urine Appearance (Clear) Urine pH (5.0-8.0) Ur Specific [place] (1.001-1.035) Urine Protein (Negative) Urine Glucose (UA) (Negative) Urine Ketones (Negative) Urine Blood (Negative) Urine Nitrite (Negative) Urine Bilirubin (Negative) Urine Urobilinogen (<2.0) mg/dL Ur Leukocyte Esterase (Negative) 10/06/23 10/06/23 10/06/23 Range/Units 02:40 04:20 04:48 WBC (3.8-10.6) k/uL RBC (4.30-5.90) m/uL Hgb (13.0-17.5) gm/dL Hct (39.0-53.0) % MCV (80.0-100.0) fL MCH (25.0-35.0) pg MCHC (31.0-37.0) g/dL RDW (11.5-15.5) % Plt Count (150-450) k/uL MPV Neutrophils % % Lymphocytes % % Monocytes % % Eosinophils % % Basophils % % Neutrophils # (1.3-7.7) k/uL Lymphocytes # (1.0-4.8) k/uL Monocytes # (0-1.0) k/uL Eosinophils # (0-0.7) k/uL Basophils # (0-0.2) k/uL PT (10.0-12.5) sec INR (<1.2) APTT (22.0-30.0) sec Sodium (137-145) mmol/L Potassium (3.5-5.1) mmol/L Chloride (98-107) mmol/L Carbon Dioxide (22-30) mmol/L Anion Gap mmol/L BUN (9-20) mg/dL Creatinine (0.66-1.25) mg/dL Est GFR (CKD-EPI)AfAm (>60 ml/min/1.73 sqM) Est GFR (CKD-EPI)NonAf (>60 ml/min/1.73 sqM) Glucose (74-99) mg/dL Lactic Ac Sepsis Rflx Plasma Lactic Acid Jack 2.1 H* (0.7-2.0) mmol/L Calcium (8.4-10.2) mg/dL Total Bilirubin (0.2-1.3) mg/dL AST (17-59) U/L ALT (4-49) U/L Alkaline Phosphatase (38-126) U/L Troponin I 0.128 H* (0.000-0.034) ng/mL Total Protein (6.3-8.2) g/dL Albumin (3.5-5.0) g/dL Amylase (30-110) U/L Lipase (23-300) U/L Urine Color Light Yellow Urine Appearance Clear (Clear) Urine pH 6.5 (5.0-8.0) Ur Specific [place] 1.015 (1.001-1.035) Urine Protein Trace H (Negative) Urine Glucose (UA) Negative (Negative) Urine Ketones 1+ H (Negative) Urine Blood Negative (Negative) Urine Nitrite Negative (Negative) Urine Bilirubin Negative (Negative) Urine Urobilinogen <2.0 (<2.0) mg/dL Ur Leukocyte Esterase Negative (Negative) 10/06/23 Range/Units 05:43 WBC (3.8-10.6) k/uL RBC (4.30-5.90) m/uL Hgb (13.0-17.5) gm/dL Hct (39.0-53.0) % MCV (80.0-100.0) fL MCH (25.0-35.0) pg MCHC (31.0-37.0) g/dL RDW (11.5-15.5) % Plt Count (150-450) k/uL MPV Neutrophils % % Lymphocytes % % Monocytes % % Eosinophils % % Basophils % % Neutrophils # (1.3-7.7) k/uL Lymphocytes # (1.0-4.8) k/uL Monocytes # (0-1.0) k/uL Eosinophils # (0-0.7) k/uL Basophils # (0-0.2) k/uL PT (10.0-12.5) sec INR (<1.2) APTT (22.0-30.0) sec Sodium (137-145) mmol/L Potassium (3.5-5.1) mmol/L Chloride (98-107) mmol/L Carbon Dioxide (22-30) mmol/L Anion Gap mmol/L BUN (9-20) mg/dL Creatinine (0.66-1.25) mg/dL Est GFR (CKD-EPI)AfAm (>60 ml/min/1.73 sqM) Est GFR (CKD-EPI)NonAf (>60 ml/min/1.73 sqM) Glucose (74-99) mg/dL Lactic Ac Sepsis Rflx Y Plasma Lactic Acid Jack (0.7-2.0) mmol/L Calcium (8.4-10.2) mg/dL Total Bilirubin (0.2-1.3) mg/dL AST (17-59) U/L ALT (4-49) U/L Alkaline Phosphatase (38-126) U/L Troponin I (0.000-0.034) ng/mL Total Protein (6.3-8.2) g/dL Albumin (3.5-5.0) g/dL Amylase (30-110) U/L Lipase (23-300) U/L Urine Color Urine Appearance (Clear) Urine pH (5.0-8.0) Ur Specific [place] (1.001-1.035) Urine Protein (Negative) Urine Glucose (UA) (Negative) Urine Ketones (Negative) Urine Blood (Negative) Urine Nitrite (Negative) Urine Bilirubin (Negative) Urine Urobilinogen (<2.0) mg/dL Ur Leukocyte Esterase (Negative) Disposition Clinical Impression: Intractable nausea and vomiting, Abdominal pain, Dehydration, Elevated lactic acid level, Elevated troponin Disposition: ADMITTED IP TO THIS HOSP Condition: Poor Is patient prescribed a controlled substance at d/c from ED?: No Referrals: Misael Hopkins MD [Primary Care Provider] - 1-2 days
[2023-10-06] MEDS: ONDANSETRON 4 MG/2 ML VIAL IVP PRN ×2 (10:11→15:25)
[2023-10-06] MEDS: PIPERACILLIN-TAZOBACTAM 3.375 GM in SODIUM CHLORIDE 0.9% 100 ML IVPB STA (10:13)
[2023-10-06] MEDS: SODIUM CHLORIDE 0.9% 1,000 ML IV SCH (10:14)
[2023-10-06] MEDS: DEXTROSE 5% IN WATER 1,000 ML IV SCH (12:12)
[2023-10-06] MEDS ORDERED: NITROGLYCERIN SL TABS 0.4 MG TAB SUBLINGUAL PRN (12:24)
[2023-10-06] MEDS ORDERED: MAG HYDROX/AL HYDROX/SIMETH 30 ML CUP PO PRN (12:28)
--- NOTE | 2023-10-06 12:38 | P.HPIM ---
History of Present Illness Patient is a 67-year-old male came in for epigastric abdominal pain nausea vomiting intractable and multiple episodes of coffee-ground emesis and feeling weak. Patient is hemoglobin is 15.3. Patient had a recent hiatal hernia repair. Patient had a CT of the abdomen which showed areas of pneumoperitoneum probably secondary to surgery. No other significant abnormality was appreciated except for a 10 mm pulmonary nodule which need further outpatient evaluation with a PET scan or a follow-up CTs. Patient was complaining of epigastric abdominal pain moderate severity patient is dehydrated with elevated lactic acid of 6.5 which has come down patient does not have any fever chills no evidence of any other infection serum sodium is 150 serum potassium is 3.2. Patient has mild elevated troponin of 0.128 patient had similar elevations of troponin during his last hospitalization as well. I reviewed multiple EKGs all of them s howed diffuse ST depressions. During his last hospitalization patient was evaluated by cardiology for these findings had an echocardiogram which was essentially within normal limits no further intervention is done at the time patient denies any chest pain to me. Patient is INR is 1.6 patient denies any alcohol abuse. REVIEW OF SYSTEMS: CONSTITUTIONAL: No fever, no malaise, no fatigue. HEENT: No recent visual problems or hearing problems. Denied any sore throat. CARDIOVASCULAR: No chest pain, orthopnea, PND, no palpitations, no syncope. PULMONARY: No shortness of breath, no cough, no hemoptysis. GASTROINTESTINAL: As mentioned in HPI NEUROLOGICAL: No headaches, no weakness, no numbness. HEMATOLOGICAL: Denies any bleeding or petechiae. GENITOURINARY: Denies any burning micturition, frequency, or urgency. MUSCULOSKELETAL/RHEUMATOLOGICAL: Denies any joint pain, swelling, or any muscle pain. ENDOCRINE: Denies any polyuria or polydipsia. The rest of the 14-point review of systems is negative. PHYSICAL EXAMINATION: GENERAL: The patient is alert and oriented x3, not in any acute distress. Thin built HEENT: Pupils are round and equally reacting to light. EOMI. No scleral icterus. No conjunctival pallor. Normocephalic, atraumatic. No pharyngeal erythema. No thyromegaly. CARDIOVASCULAR: S1 and S2 present. No murmurs, rubs, or gallops. PULMONARY: Chest is clear to auscultation, no wheezing or crackles. ABDOMEN: Soft, nontender, nondistended, normoactive bowel sounds. No palpable organomegaly. MUSCULOSKELETAL: No joint swelling or deformity. EXTREMITIES: No cyanosis, clubbing, or pedal edema. NEUROLOGICAL: Gross neurological examination did not reveal any focal deficits. SKIN: No rashes. Assessment and plan -Epigastric abdominal pain nausea vomiting patient probably still has gastritis patient will be continued on proton pulmonary tear along with Maalox will monitor the patient. -Lactic acidosis secondary to dehydration -Acute renal failure secondary to dehydration patient will be continued on IV fluids but will switch the IV fluids to D5 water as patient is hyponatremic -Hypokalemia secondary to nausea vomiting and IV fluids potassium will be rep laced -Elevated troponins patient has chronic elevation of troponins this elevation may be secondary to acute renal failure patient was extensively evaluated by cardiology during his last hospitalization no further intervention is necessary at this time I do not believe patient has myocardial infarction at this time -Leukocytosis reactive secondary to nausea vomiting -Mild coagulopathy may be due to vitamin K deficiency from prolonged GI issues and nausea vomiting. -Rheumatoid arthritis -Depression for which patient takes sertraline and buspirone which will be resumed DVT prophylaxis: Early ambulation and patient is already anticoagulated may not require any DVT prophylaxis at this time Past Medical History Past Medical History: Asthma, Coronary Artery Disease (CAD), Chest Pain / Angina, CVA/TIA, GERD/Reflux, Hyperlipidemia, Hypertension, Pneumonia, Rheumatoid Arthritis (RA) Additional Past Medical History / Comment(s): MIGRAINES, HEART MURMUR, hx HIATAL HERNIA, ANEMIA, one dr told him he had a stroke at one time-no effects, varicose veins, history of incarcerated per esophageal hernia, status post robo tic-assisted paraesophageal hernia repair and Frederick fundoplication on 04/12/2022. History of Any Multi-Drug Resistant Organisms: None Reported Past Surgical History: Cholecystectomy, Heart Catheterization, Hernia Repair, Orthopedic Surgery Additional Past Surgical History / Comment(s): Lt achilles tendon,RT SHOULDER surgery, RT ACHILLES TENDON reattached, HEMORRHOIDECTOMY, 13 FATTY TUMORS removed. left hand index finger surgery after injury, EGD WITH DILATION, paraesophageal hernia repair with Frederick fundoplication on 04/12/2022. Past Anesthesia/Blood Transfusion Reactions: No Reported Reaction Additional Past Anesthesia/Blood Transfusion Reaction / Comment(s): no hx blood transfusion Past Psychological History: Anxiety, Depression Smoking Status: Former smoker - Past Family History Mother Family Medical History: Cancer Father Additional Family Medical History / Comment(s): thinks aneurysm Medications and Allergies Home Medications Medication Instructions Recorded Confirmed Type Nitroglycerin Sl Tabs [Nitrostat] 0.4 mg SUBLINGUAL Q5M PRN 08/08/23 10/06/23 History Sertraline [Zoloft] 25 mg PO DAILY 08/08/23 10/06/23 History busPIRone HCL [Buspar] 7.5 mg PO BID 08/08/23 10/06/23 History Albuterol Inhaler [Ventolin Hfa 2 puff INHALATION RT-Q4H PRN 09/25/23 10/06/23 History Inhaler] HYDROcodone/APAP 5-325MG [[place] 1 tab PO Q6HR PRN 2 Days #8 tab 09/26/23 10/06/23 Rx 5-325] Omeprazole 20 mg PO BID 10/06/23 10/06/23 History Allergies Allergy/AdvReac Type Severity Reaction Status Date / Time No Known Allergies Allergy Verified 10/06/23 08:30 Physical Exam Vitals: Vital Signs Temp Pulse Resp BP Pulse Ox 10/06/23 06:00 84 18 131/89 97 10/06/23 04:00 83 18 137/97 95 10/06/23 03:00 73 16 128/85 96 10/06/23 02:36 80 18 92/81 95 10/06/23 01:09 85 18 92/81 97 10/06/23 00:17 116 H 22 92/81 94 L 10/06/23 00:10 112 H 18 83/32 94 L 10/05/23 23:35 98.7 F 87 20 146/74 96 Intake and Output 10/05/23 10/06/23 10/06/23 22:59 06:59 14:59 Other: Weight 58.06 kg Results CBC & Chem 7: 10/06/23 00:14 10/06/23 00:14 Labs: Abnormal Lab Results - Last 24 Hours (Table) 10/06/23 10/06/23 10/06/23 Range/Units 00:14 00:14 00:14 WBC 12.3 H (3.8-10.6) k/uL Neutrophils # 10.6 H (1.3-7.7) k/uL PT 16.3 H (10.0-12.5) sec INR 1.6 H (<1.2) Sodium 150 H (137-145) mmol/L Potassium 3.2 L (3.5-5.1) mmol/L BUN 32 H (9-20) mg/dL Glucose 151 H (74-99) mg/dL Plasma Lactic Acid Jack (0.7-2.0) mmol/L AST 63 H (17-59) U/L Alkaline Phosphatase 146 H (38-126) U/L Troponin I (0.000-0.034) ng/mL Total Protein 6.2 L (6.3-8.2) g/dL Urine Protein (Negative) Urine Ketones (Negative) 10/06/23 10/06/23 10/06/23 Range/Units 00:14 00:14 02:40 WBC (3.8-10.6) k/uL Neutrophils # (1.3-7.7) k/uL PT (10.0-12.5) sec INR (<1.2) Sodium (137-145) mmol/L Potassium (3.5-5.1) mmol/L BUN (9-20) mg/dL Glucose (74-99) mg/dL Plasma Lactic Acid Jack 6.0 H* (0.7-2.0) mmol/L AST (17-59) U/L Alkaline Phosphatase (38-126) U/L Troponin I 0.168 H* 0.128 H* (0.000-0.034) ng/mL Total Protein (6.3-8.2) g/dL Urine Protein (Negative) Urine Ketones (Negative) 10/06/23 10/06/23 Range/Units 04:20 04:48 WBC (3.8-10.6) k/uL Neutrophils # (1.3-7.7) k/uL PT (10.0-12.5) sec INR (<1.2) Sodium (137-145) mmol/L Potassium (3.5-5.1) mmol/L BUN (9-20) mg/dL Glucose (74-99) mg/dL Plasma Lactic Acid Jack 2.1 H* (0.7-2.0) mmol/L AST (17-59) U/L Alkaline Phosphatase (38-126) U/L Troponin I (0.000-0.034) ng/mL Total Protein (6.3-8.2) g/dL Urine Protein Trace H (Negative) Urine Ketones 1+ H (Negative)
[2023-10-06] MEDS: POTASSIUM CHLORIDE ER 20 MEQ TAB.ER PO STA (14:03)
--- NOTE | 2023-10-06 15:01 | P.GSCN ---
History of Present Illness Consult date: 10/06/23 History of present illness: CHIEF COMPLAINT: Abdominal pain HISTORY OF PRESENT ILLNESS: This is a 67-year-old male who is status post laparoscopic repair of paraesophageal hiatal hernia with mesh on 09/25/[address] Pavon. Patient has been tolerating liquid diet prior to discharge. However, patient reports that the vomiting has reoccurred. Also complaining of abdominal pain. He is unable to keep anything down. Patient reports that he had been staying on the full liquid diet. He is having flatus and bowel movements. CT scan abdomen and pelvis completed with scattered pneumoperitoneum throughout the upper abdomen which is postsurgical. No evidence of fluid collection. Patient was mildly tachycardic on admission now improved. Patient seen and examined with Dr. Pavon PAST MEDICAL HISTORY: Asthma, Coronary Artery Disease (CAD), Chest Pain / Angina, CVA/TIA, GERD/Reflux, Hyperlipidemia, Hypertension, Pneumonia, Rheumatoid Arthritis (RA), MIGRAINES, HEART MURMUR, hx HIATAL HERNIA, ANEMIA, one dr told him he had a stroke at one time-no effects, varicose veins, history of incarcerated per esophageal hernia, status post robotic-assisted paraesophageal hernia repair and Frederick fundoplication on 04/12/2022. PAST SURGICAL HISTORY: Cholecystectomy, Heart Catheterization, Hernia Repair, Orthopedic Surgery MEDICATIONS: See below ALLERGIES: See below SOCIAL HISTORY: No illicit drug use. REVIEW OF SYSTEMS: CONSTITUTIONAL: Denies fever or chills. HEENT: Denies blurred vision, vision changes, or eye pain. Denies hemoptysis CARDIOVASCULAR: Denies chest pain or pressure. RESPIRATORY: No shortness of breath. GASTROINTESTINAL: See HPI for pertinent findings HEMATOLOGIC: Denies bleeding disorders. GENITOURINARY: Denies any blood in urine or increased urinary frequency. SKIN: Denies pruitis. Denies rash. PHYSICAL EXAM: VITAL SIGNS: Reviewed GENERAL: Well-developed in no acute distress. HEENT: No sclera icterus. Extraocular movements grossly intact. Moist buccal mucosa. Head is atraumatic, normocephalic. No nasal drainage. ABDOMEN: Soft. Nondistended. Mild diffuse tenderness. No peritoneal signs NEUROLOGIC: Alert and oriented. Cranial nerves II through XII grossly intact. LABORATORY DATA: WBC 12.3 Hgb 15.3 platelets 413 INR 1.6 Sodium is 150 potassium 3.2 creatinine 1.03 Lactic acid 6.0 down to 1.5 Mildly elevated troponin Lipase 236 AST 63 alk phos 146 IMAGING: CT scan abdomen pelvis reported scattered pneumoperitoneum throughout the upper abdomen likely postsurgical. No organizing fluid collection. Left lower lobe pulmonary nodule ASSESSMENT: 1. Abdominal pain with nausea and vomiting likely due to esophageal dysmotility disorder 2. Recent laparoscopic repair of paraesophageal hiatal hernia with mesh on 09/25/2023 3. Scattered pneumoperitoneum noted on CT is postsurgical PLAN: -Patient scheduled for upper GI on 10/09/2023 -Continue IV fluids -Continue antiemetics -Keep patient n.p.o. for now Physician [employer] note has been reviewed by physician. Signing provider agrees with the documented findings, assessment, and plan of care. Past Medical History Past Medical History: Asthma, Coronary Artery Disease (CAD), Chest Pain / Angina, CVA/TIA, GERD/Reflux, Hyperlipidemia, Hypertension, Pneumonia, Rheumatoid Arthritis (RA) Additional Past Medical History / Comment(s): MIGRAINES, HEART MURMUR, hx HIATAL HERNIA, ANEMIA, one dr told him he had a stroke at one time-no effects, varicose veins, history of incarcerated per esophageal hernia, status post robotic-assisted paraesophageal hernia repair and Frederick fundoplication on 04/12/2022. History of Any Multi-Drug Resistant Organisms: None Reported Past Surgical History: Cholecystectomy, Heart Catheterization, Hernia Repair, Orthopedic Surgery Additional Past Surgical History / Comment(s): Lt achilles tendon,RT SHOULDER surgery, RT ACHILLES TENDON reattached, HEMORRHOIDECTOMY, 13 FATTY TUMORS removed. left hand index finger surgery after injury, EGD WITH DILATION, paraesophageal hernia repair with Frederick fundoplication on 04/12/2022. Past Anesthesia/Blood Transfusion Reactions: No Reported Reaction Additional Past Anesthesia/Blood Transfusion Reaction / Comm: no hx blood transfusion Past Psychological History: Anxiety, Depression Smoking Status: Former smoker - Past Family History Mother Family Medical History: Cancer Father Additional Family Medical History / Comment(s): thinks aneurysm Medications and Allergies Home Medications Medication Instructions Recorded Confirmed Type Nitroglycerin Sl Tabs [Nitrostat] 0.4 mg SUBLINGUAL Q5M PRN 08/08/23 10/06/23 History Sertraline [Zoloft] 25 mg PO DAILY 08/08/23 10/06/23 History busPIRone HCL [Buspar] 7.5 mg PO BID 08/08/23 10/06/23 History Albuterol Inhaler [Ventolin Hfa 2 puff INHALATION RT-Q4H PRN 09/25/23 10/06/23 History Inhaler] HYDROcodone/APAP 5-325MG [[place] 1 tab PO Q6HR PRN 2 Days #8 tab 09/26/23 10/06/23 Rx 5-325] Omeprazole 20 mg PO BID 10/06/23 10/06/23 History Allergies Allergy/AdvReac Type Severity Reaction Status Date / Time No Known Allergies Allergy Verified 10/06/23 08:30 Surgical - Exam Vital Signs Temp Pulse Resp BP Pulse Ox 98.7 F 87 20 146/74 96 10/05/23 23:35 10/05/23 23:35 10/05/23 23:35 10/05/23 23:35 10/05/23 23:35 Results - Labs 10/06/23 00:14 10/06/23 00:14 Abnormal Lab Results - Last 24 Hours (Table) 10/06/23 10/06/23 10/06/23 Range/Units 00:14 00:14 00:14 WBC 12.3 H (3.8-10.6) k/uL Neutrophils # 10.6 H (1.3-7.7) k/uL PT 16.3 H (10.0-12.5) sec INR 1.6 H (<1.2) Sodium 150 H (137-145) mmol/L Potassium 3.2 L (3.5-5.1) mmol/L BUN 32 H (9-20) mg/dL Glucose 151 H (74-99) mg/dL Plasma Lactic Acid Jack (0.7-2.0) mmol/L AST 63 H (17-59) U/L Alkaline Phosphatase 146 H (38-126) U/L Troponin I (0.000-0.034) ng/mL Total Protein 6.2 L (6.3-8.2) g/dL Urine Protein (Negative) Urine Ketones (Negative) 10/06/23 10/06/23 10/06/23 Range/Units 00:14 00:14 02:40 WBC (3.8-10.6) k/uL Neutrophils # (1.3-7.7) k/uL PT (10.0-12.5) sec INR (<1.2) Sodium (137-145) mmol/L Potassium (3.5-5.1) mmol/L BUN (9-20) mg/dL Glucose (74-99) mg/dL Plasma Lactic Acid Jack 6.0 H* (0.7-2.0) mmol/L AST (17-59) U/L Alkaline Phosphatase (38-126) U/L Troponin I 0.168 H* 0.128 H* (0.000-0.034) ng/mL Total Protein (6.3-8.2) g/dL Urine Protein (Negative) Urine Ketones (Negative) 10/06/23 10/06/23 Range/Units 04:20 04:48 WBC (3.8-10.6) k/uL Neutrophils # (1.3-7.7) k/uL PT (10.0-12.5) sec INR (<1.2) Sodium (137-145) mmol/L Potassium (3.5-5.1) mmol/L BUN (9-20) mg/dL Glucose (74-99) mg/dL Plasma Lactic Acid Jack 2.1 H* (0.7-2.0) mmol/L AST (17-59) U/L Alkaline Phosphatase (38-126) U/L Troponin I (0.000-0.034) ng/mL Total Protein (6.3-8.2) g/dL Urine Protein Trace H (Negative) Urine Ketones 1+ H (Negative) Diabetes panel 10/06/23 Range/Units 00:14 Sodium 150 H (137-145) mmol/L Potassium 3.2 L (3.5-5.1) mmol/L Chloride 106 (98-107) mmol/L Carbon Dioxide 30 (22-30) mmol/L BUN 32 H (9-20) mg/dL Creatinine 1.03 (0.66-1.25) mg/dL Glucose 151 H (74-99) mg/dL Calcium 9.5 (8.4-10.2) mg/dL AST 63 H (17-59) U/L ALT 41 (4-49) U/L Alkaline Phosphatase 146 H (38-126) U/L Total Protein 6.2 L (6.3-8.2) g/dL Albumin 3.6 (3.5-5.0) g/dL Calcium panel 10/06/23 Range/Units 00:14 Calcium 9.5 (8.4-10.2) mg/dL Albumin 3.6 (3.5-5.0) g/dL Pituitary panel 10/06/23 Range/Units 00:14 Sodium 150 H (137-145) mmol/L Potassium 3.2 L (3.5-5.1) mmol/L Chloride 106 (98-107) mmol/L Carbon Dioxide 30 (22-30) mmol/L BUN 32 H (9-20) mg/dL Creatinine 1.03 (0.66-1.25) mg/dL Glucose 151 H (74-99) mg/dL Calcium 9.5 (8.4-10.2) mg/dL Adrenal panel 10/06/23 Range/Units 00:14 Sodium 150 H (137-145) mmol/L Potassium 3.2 L (3.5-5.1) mmol/L Chloride 106 (98-107) mmol/L Carbon Dioxide 30 (22-30) mmol/L BUN 32 H (9-20) mg/dL Creatinine 1.03 (0.66-1.25) mg/dL Glucose 151 H (74-99) mg/dL Calcium 9.5 (8.4-10.2) mg/dL Total Bilirubin 1.0 (0.2-1.3) mg/dL AST 63 H (17-59) U/L ALT 41 (4-49) U/L Alkaline Phosphatase 146 H (38-126) U/L Total Protein 6.2 L (6.3-8.2) g/dL Albumin 3.6 (3.5-5.0) g/dL
[2023-10-06] MEDS: ALBUTEROL HFA INHALER INHALATION PRN (15:27)
[2023-10-06] MEDS: METOCLOPRAMIDE 5 MG/ML 2 ML VIAL IVP PRN (17:48)
[2023-10-06] MEDS: PANTOPRAZOLE 40 MG/10 ML VIAL IVP SCH (20:21)
[2023-10-06] MEDS: busPIRone HCl 5 MG TAB PO SCH (20:23)
[2023-10-07 00:16] LABS: Glucose,Whole Blood 193 mg/dL (70-110)
[2023-10-07] MEDS ORDERED: PANTOPRAZOLE 40 MG TABLET PO SCH (07:30)
[2023-10-07] MEDS: SERTRALINE 25 MG TAB PO SCH (08:23)
[2023-10-07 09:41] LABS: African American GFR (CKD) >90 (>60 ml/min/1.73 sqM); Anion Gap 8 mmol/L; Blood Urea Nitrogen 17 mg/dL (9-20); Calcium 7.7 mg/dL (8.4-10.2); Carbon Dioxide 28 mmol/L (22-30); Chloride 104 mmol/L (98-107); Glucose 155 mg/dL (74-99); Magnesium 1.7 mg/dL (1.6-2.3); Non-African American GFR(CKD) >90 (>60 ml/min/1.73 sqM); Sodium 140 mmol/L (137-145)
[2023-10-07 10:18] LABS: HCT 36.9 % (39.0-53.0); MCH 31.5 pg (25.0-35.0); MCHC 33.1 g/dL (31.0-37.0); MCV 95.2 fL (80.0-100.0); Platelet Count 272 k/uL (150-450); RBC 3.88 m/uL (4.30-5.90); RDW 15.3 % (11.5-15.5); WBC 14.9 k/uL (3.8-10.6)
[2023-10-07 10:23] LABS: HGB 12.2 gm/dL (13.0-17.5)
--- NOTE | 2023-10-07 10:54 | P.PN ---
Subjective Progress Note Date: 10/07/23 NAEON. No N/V. NO SOB or CP. No worsening abdominal pain. Admits to flatus and BM. Voiding and ambulatory. Objective - Vital Signs Vital signs: Vital Signs Temp 97.4 F L 10/07/23 08:21 Pulse 97 10/07/23 08:21 Resp 16 10/07/23 08:21 BP 157/97 10/07/23 08:21 Pulse Ox 97 10/07/23 08:21 FiO2 Intake & Output 10/06/23 10/07/23 10/07/23 18:59 06:59 18:59 Output Total 200 300 Balance -200 -300 Weight 58.06 kg Output: Urine 200 300 - Exam Gen: AxO, NAD Pulm: non-labored respiration Abd: soft, non-tender, non-distended. No guarding/rebound/rigidity Extrem: no edema seen - Labs CBC & Chem 7: 10/07/23 08:15 10/07/23 08:15 Labs: Abnormal Lab Results - Last 24 Hours (Table) 10/07/23 10/07/23 10/07/23 Range/Units 00:15 08:15 08:15 WBC 14.9 H (3.8-10.6) k/uL RBC 3.88 L (4.30-5.90) m/uL Hgb 12.2 L D (13.0-17.5) gm/dL Hct 36.9 L (39.0-53.0) % Potassium 3.0 L (3.5-5.1) mmol/L Creatinine 0.61 L (0.66-1.25) mg/dL Glucose 155 H (74-99) mg/dL POC Glucose (mg/dL) 193 H (70-110) mg/dL Calcium 7.7 L (8.4-10.2) mg/dL Assessment and Plan Assessment: Patient is a 67M with recent PEH hernia in september 2023 who presents with N/V and concern for esophageal dysmotility Plan: -NPO -IVF hydration -PRN pain and nausea control -Plan for UGI on 10/09/23 for further evaluation -No acute surgical intervention Sandoval Sparks MD General Surgery
[2023-10-07] MEDS ORDERED: Potassium Replacement Protocol 1 EACH MISC MISCELLANE PRN (13:45)
[2023-10-07] MEDS: POTASSIUM BICARBONATE/CIT AC 20 MEQ TABLET.EFF NG-TUBE SCH (15:48)
[2023-10-07 18:19] LABS: African American GFR (CKD) >90 (>60 ml/min/1.73 sqM); Anion Gap 5 mmol/L; Blood Urea Nitrogen 14 mg/dL (9-20); Calcium 7.6 mg/dL (8.4-10.2); Carbon Dioxide 35 mmol/L (22-30); Chloride 98 mmol/L (98-107); Glucose 125 mg/dL (74-99); Non-African American GFR(CKD) >90 (>60 ml/min/1.73 sqM); Sodium 138 mmol/L (137-145)
[2023-10-07] MEDS ORDERED: Magnesium Replacement Protocol 1 EACH MISC MISCELLANE PRN (18:24)
[2023-10-07] MEDS ORDERED: DEXTROSE 50% SYRINGE 50 ML IVP PRN ×2 (18:24)
[2023-10-07 18:26] LABS: Potassium 2.4 mmol/L (3.5-5.1)
--- NOTE | 2023-10-07 18:27 | P.PN ---
Subjective Progress Note Date: 10/07/23 Patient is a 67-year-old male came in for epigastric abdominal pain nausea vomiting intractable and multiple episodes of coffee-ground emesis and feeling weak. Patient is hemoglobin is 15.3. Patient had a recent hiatal hernia repair. Patient had a CT of the abdomen which showed areas of pneumoperitoneum probably secondary to surgery. No other significant abnormality was appreciated except for a 10 mm pulmonary nodule which need further outpatient evaluation with a PET scan or a follow-up CTs. Patient was complaining of epigastric abdominal pain moderate severity patient is dehydrated with elevated lactic acid of 6.5 which has come down patient does not have any fever chills no evidence of any other infection serum sodium is 150 serum potassium is 3.2. Patient has mild elevated troponin of 0.128 patient had similar elevations of troponin during his last hospitalization as well. I reviewed multiple EKGs all of them showed diffuse ST depressions. During his last hospitalization patient was evaluated by cardiology for these findings had an echocardiogram which was essentially within normal limits no further intervention is done at the time patient denies any chest pain to me. Patient is INR is 1.6 patient denies any alcohol abuse. 10/07/2023 Patient is evaluated today on the cardiac stepdown unit. Continues to report nausea and has been placed NPO by surgery with plans for upper GI on monday. Patient remains on D5 water at 75 mls per hour and sodium has improved to 140. Patient has no signs of active bleeding and hemoglobin is currently 12.2. WBC of 14.9. Potassium of 3.0 and magnesium of 1.7. Review of Systems Constitutional: Denied any fatigue denied any fever. Cardio vascular: denied any chest pain, palpitations Gastrointestinal: Reports nausea, vomiting, diarrhea Pulmonary: Denied any shortness of breath cough Neurologic denied any new focal deficits All inpatient medications were reviewed and appropriate changes in these medications as dictated in the interval history and assessment and plan. PHYSICAL EXAMINATION: GENERAL: The patient is alert and oriented x3, not in any acute distress. Thin built HEENT: Pupils are round and equally reacting to light. EOMI. No scleral icterus. No conjunctival pallor. Normocephalic, atraumatic. No pharyngeal erythema. No thyromegaly. CARDIOVASCULAR: S1 and S2 present. No murmurs, rubs, or gallops. PULMONARY: Chest is clear to auscultation, no wheezing or crackles. ABDOMEN: Soft, nontender, nondistended, normoactive bowel sounds. No palpable organomegaly. MUSCULOSKELETAL: No joint swelling or deformity. EXTREMITIES: No cyanosis, clubbing, or pedal edema. NEUROLOGICAL: Gross neurological examination did not reveal any focal deficits. SKIN: No rashes. Assessment and plan -Epigastric abdominal pain nausea vomiting patient probably still has gastritis patient will be continued on proton pump inhibitor as well as maalox. -Lactic acidosis secondary to dehydration, normalized -Acute renal failure secondary to dehydration patient will be continued on IV fluids. -Hypokalemia secondary to nausea vomiting and IV fluids potassium will be replaced -Hypernatremia due to poor oral intake and this has improved with the D5 in water which will be continued on 75 mls/s hr -Elevated troponins patient has chronic elevation of troponins this elevation may be secondary to acute renal failure patient was extensively evaluated by cardiology during his last hospitalization no further intervention is necessary at this time I do not believe patient has myocardial infarction at this time -Leukocytosis reactive secondary to nausea vomiting -Mild coagulopathy may be due to vitamin K deficiency from prolonged GI issues and nausea vomiting. -Rheumatoid arthritis -Depression for which patient takes sertraline and buspirone which will be resumed DVT prophylaxis: Early ambulation GI prophylaxis Full Code Continue to monitor electrolytes and replace per protocol, blood work will be repeated in the AM. Continue NPO diet order and plans for upper GI on monday. General surgery following. The impression and plan of care has been dictated by Desiree Clarke Nurse Practitioner as directed. Dr. Cyndi MD I have performed a history and physical examination and medical decision making of this patient, discussed the same with the dictator, and agree with the dictators assessment and plan as written, documented as a scribe. Based on total visit time, I have performed more than 50% of this visit. Objective - Vital Signs Vital signs: Vital Signs Temp 97.4 F L 10/07/23 08:21 Pulse 97 10/07/23 08:21 Resp 16 10/07/23 08:21 BP 157/97 10/07/23 08:21 Pulse Ox 97 10/07/23 08:21 FiO2 Intake & Output 10/06/23 10/07/23 10/07/23 18:59 06:59 18:59 Output Total 200 Balance -200 Weight 58.06 kg Output: Urine 200 - Labs CBC & Chem 7: 10/07/23 08:15 10/07/23 08:15 Labs: Abnormal Lab Results - Last 24 Hours (Table) 10/07/23 Range/Units 00:15 POC Glucose (mg/dL) 193 H (70-110) mg/dL Assessment and Plan Time with Patient: Less than 30
[2023-10-07] MEDS: POTASSIUM CHLORIDE 10 MEQ in WATER FOR INJECTION 1 100ML.BAG IVPB SCH (18:35)
[2023-10-07] MEDS: MAGNESIUM SULFATE-D5W PMX 1 GM in DEXTROSE/WATER 1 100ML.BAG IVPB ONE (20:30)
[2023-10-07] MEDS: POTASSIUM BICARBONATE/CIT AC 20 MEQ TABLET.EFF PEG/G-TUBE SCH (21:17)
[2023-10-07 21:36] LABS: Glucose,Whole Blood 143 mg/dL (70-110)
[2023-10-07] MEDS: INSULIN ASPART (NovoLOG) 100 UNIT/ML VIAL SQ SCH (21:41)
[2023-10-08 01:00] LABS: Potassium 2.4 mmol/L (3.5-5.1)
[2023-10-08] MEDS ORDERED: Potassium Replacement Protocol 1 EACH MISC MISCELLANE PRN (02:06)
[2023-10-08] MEDS: POTASSIUM CHLORIDE 10 MEQ in WATER FOR INJECTION 1 100ML.BAG IVPB SCH ×2 (02:17→08:05)
[2023-10-08 05:27] LABS: Glucose,Whole Blood 121 mg/dL (70-110)
[2023-10-08 06:38] LABS: African American GFR (CKD) >90 (>60 ml/min/1.73 sqM); Anion Gap 1 mmol/L; Blood Urea Nitrogen 8 mg/dL (9-20); Calcium 7.1 mg/dL (8.4-10.2); Carbon Dioxide 34 mmol/L (22-30); Chloride 97 mmol/L (98-107); Glucose 113 mg/dL (74-99); Magnesium 1.9 mg/dL (1.6-2.3); Non-African American GFR(CKD) >90 (>60 ml/min/1.73 sqM); Sodium 132 mmol/L (137-145)
[2023-10-08 06:49] LABS: Basophils % (A) 0 %; Eosinophils # (A) 0.1 k/uL (0-0.7); Eosinophils % (A) 1 %; HCT 33.2 % (39.0-53.0); HGB 11.3 gm/dL (13.0-17.5); Lymphocytes % (A) 13 %; MCH 31.7 pg (25.0-35.0); MCHC 33.9 g/dL (31.0-37.0); MCV 93.5 fL (80.0-100.0); Mean Platelet Volume 9.8; Monocytes # (A) 0.4 k/uL (0-1.0); Monocytes % (A) 5 %; Neutrophils # (A) 6.3 k/uL (1.3-7.7); Neutrophils % (A) 80 %; Platelet Count 221 k/uL (150-450); RBC 3.55 m/uL (4.30-5.90); RDW 15.1 % (11.5-15.5); WBC 7.8 k/uL (3.8-10.6)
[2023-10-08 07:17] LABS: Potassium 2.6 mmol/L (3.5-5.1)
[2023-10-08 11:12] LABS: Glucose,Whole Blood 128 mg/dL (70-110)
[2023-10-08] MEDS: 0.9% NACL WITH KCL 20 MEQ/L 1,000 ML IV SCH (12:52)
[2023-10-08 16:24] LABS: Glucose,Whole Blood 98 mg/dL (70-110)
--- NOTE | 2023-10-08 18:30 | P.PN ---
Subjective Progress Note Date: 10/08/23 Patient presents as a readmission from prior paraesophageal hiatal hernia repair. Denies any moderate abdominal pain. Mild epigastrium. He has been strict n.p.o. for over 24 to 48 hours. Abdomen: No peritonitis. Minimal epigastric tenderness. Studies: CT of the abdomen pelvis reviewed upon admission demonstrates expected free air from recent laparoscopic procedure. Stomach within the abdomen. No leak. This is my independent interpretation. Assessment: 1. Dysphagia following paraesophageal hiatal hernia repair Plan: 1. May have ice chips popsicles 2. Upper GI for further investigation of esophageal dysmotility Objective - Vital Signs Vital signs: Vital Signs Temp 97.8 F 10/08/23 08:00 Pulse 68 10/08/23 16:08 Resp 16 10/08/23 16:08 BP 110/70 10/08/23 16:08 Pulse Ox 96 10/08/23 16:08 FiO2 Intake & Output 10/07/23 10/08/23 10/08/23 18:59 06:59 18:59 Output Total 500 850 450 Balance -500 -850 -450 Output: Urine 500 850 450 - Labs CBC & Chem 7: 10/08/23 05:29 10/08/23 05:29 Labs: Abnormal Lab Results - Last 24 Hours (Table) 10/07/23 10/08/23 10/08/23 Range/Units 21:34 00:20 05:25 RBC (4.30-5.90) m/uL Hgb (13.0-17.5) gm/dL Hct (39.0-53.0) % Sodium (137-145) mmol/L Potassium 2.4 L* (3.5-5.1) mmol/L Chloride (98-107) mmol/L Carbon Dioxide (22-30) mmol/L BUN (9-20) mg/dL Creatinine (0.66-1.25) mg/dL Glucose (74-99) mg/dL POC Glucose (mg/dL) 143 H 121 H (70-110) mg/dL Hemoglobin A1c (<=6.0) % Calcium (8.4-10.2) mg/dL 10/08/23 10/08/23 10/08/23 Range/Units 05:29 05:29 05:29 RBC 3.55 L (4.30-5.90) m/uL Hgb 11.3 L (13.0-17.5) gm/dL Hct 33.2 L (39.0-53.0) % Sodium 132 L (137-145) mmol/L Potassium 2.6 L* (3.5-5.1) mmol/L Chloride 97 L (98-107) mmol/L Carbon Dioxide 34 H (22-30) mmol/L BUN 8 L (9-20) mg/dL Creatinine 0.58 L (0.66-1.25) mg/dL Glucose 113 H (74-99) mg/dL POC Glucose (mg/dL) (70-110) mg/dL Hemoglobin A1c 6.4 H (<=6.0) % Calcium 7.1 L (8.4-10.2) mg/dL 10/08/23 Range/Units 11:10 RBC (4.30-5.90) m/uL Hgb (13.0-17.5) gm/dL Hct (39.0-53.0) % Sodium (137-145) mmol/L Potassium (3.5-5.1) mmol/L Chloride (98-107) mmol/L Carbon Dioxide (22-30) mmol/L BUN (9-20) mg/dL Creatinine (0.66-1.25) mg/dL Glucose (74-99) mg/dL POC Glucose (mg/dL) 128 H (70-110) mg/dL Hemoglobin A1c (<=6.0) % Calcium (8.4-10.2) mg/dL Microbiology - Last 24 Hours (Table) 10/06/23 10:11 Blood Culture Gram Stain - Preliminary Blood Blood Culture - Preliminary Molecular ID
--- NOTE | 2023-10-08 18:52 | P.PN ---
Subjective Progress Note Date: 10/08/23 Patient is a 67-year-old male came in for epigastric abdominal pain nausea vomiting intractable and multiple episodes of coffee-ground emesis and feeling weak. Patient is hemoglobin is 15.3. Patient had a recent hiatal hernia repair. Patient had a CT of the abdomen which showed areas of pneumoperitoneum probably secondary to surgery. No other significant abnormality was appreciated except for a 10 mm pulmonary nodule which need further outpatient evaluation with a PET scan or a follow-up CTs. Patient was complaining of epigastric abdominal pain moderate severity patient is dehydrated with elevated lactic acid of 6.5 which has come down patient does not have any fever chills no evidence of any other infection serum sodium is 150 serum potassium is 3.2. Patient has mild elevated troponin of 0.128 patient had similar elevations of troponin during his last hospitalization as well. I reviewed multiple EKGs all of them showed diffuse ST depressions. During his last hospitalization patient was evaluated by cardiology for these findings had an echocardiogram which was essentially within normal limits no further intervention is done at the time patient denies any chest pain to me. Patient is INR is 1.6 patient denies any alcohol abuse. 10/07/2023 Patient is evaluated today on the cardiac stepdown unit. Continues to report nausea and has been placed NPO by surgery with plans for upper GI on monday. Patient remains on D5 water at 75 mls per hour and sodium has improved to 140. Patient has no signs of active bleeding and hemoglobin is currently 12.2. WBC of 14.9. Potassium of 3.0 and magnesium of 1.7. 10/08/2023 Patient is evaluated today in follow up. Reports improvement in his nausea. Remains NPO with plans to undergo upper GI on monday. Potassium remains low and patient will continue to receive IV supplementation. Patient unable to tolerate oral potassium or liquid potassium PO replacement. Sodium 132 and D5 water has been discontinued. Review of Systems Constitutional: Denied any fatigue denied any fever. Cardio vascular: denied any chest pain, palpitations Gastrointestinal: Reports nausea, vomiting, diarrhea Pulmonary: Denied any shortness of breath cough Neurologic denied any new focal deficits All inpatient medications were reviewed and appropriate changes in these medications as dictated in the interval history and assessment and plan. PHYSICAL EXAMINATION: GENERAL: The patient is alert and oriented x3, not in any acute distress. Thin built HEENT: Pupils are round and equally reacting to light. EOMI. No scleral icterus. No conjunctival pallor. Normocephalic, atraumatic. No pharyngeal erythema. No thyromegaly. CARDIOVASCULAR: S1 and S2 present. No murmurs, rubs, or gallops. PULMONARY: Chest is clear to auscultation, no wheezing or crackles. ABDOMEN: Soft, nontender, nondistended, normoactive bowel sounds. No palpable organomegaly. MUSCULOSKELETAL: No joint swelling or deformity. EXTREMITIES: No cyanosis, clubbing, or pedal edema. NEUROLOGICAL: Gross neurological examination did not reveal any focal deficits. SKIN: No rashes. Assessment and plan -Epigastric abdominal pain nausea vomiting patient probably still has gastritis patient will be continued on proton pump inhibitor as well as maalox. -Lactic acidosis secondary to dehydration, normalized -Acute renal failure secondary to dehydration patient will be continued on IV fluids. Renal function has improved. -Hypokalemia secondary to nausea vomiting and IV fluids potassium will be replaced. -Hypernatremia due to poor oral intake and this has improved with the D5 in w ater which has been discontinued. -Elevated troponins patient has chronic elevation of troponins this elevation may be secondary to acute renal failure patient was extensively evaluated by cardiology during his last hospitalization no further intervention is necessary at this time I do not believe patient has myocardial infarction at this time -Leukocytosis reactive secondary to nausea vomiting -Mild coagulopathy may be due to vitamin K deficiency from prolonged GI issues and nausea vomiting. -Rheumatoid arthritis -Depression for which patient takes sertraline and buspirone which will be res umed DVT prophylaxis: Early ambulation GI prophylaxis Full Code Continue to monitor electrolytes and replace per protocol. Continue NPO diet order and plans for upper GI on monday. General surgery following. Fluids have been changed to normal saline with added potassium running at 50 mls/hr. Repeat potassium later this afternoon and follow up BMP and magnesium in the AM. The impression and plan of care has been dictated by Desiree Clarke, Nurse Practitioner as directed. Dr. Cyndi MD I have performed a history and physical examination and medical decision making of this patient, discussed the same with the dictator, and agree with the dictators assessment and plan as written, documented as a scribe. Based on total visit time, I have performed more than 50% of this visit. Objective - Vital Signs Vital signs: Vital Signs Temp 97.8 F 10/08/23 08:00 Pulse 68 10/08/23 16:08 Resp 16 10/08/23 16:08 BP 110/70 10/08/23 16:08 Pulse Ox 96 10/08/23 16:08 FiO2 Intake & Output 10/07/23 10/08/23 10/08/23 18:59 06:59 18:59 Output Total 500 850 450 Balance -500 -850 -450 Output: Urine 500 850 450 - Labs CBC & Chem 7: 10/08/23 05:29 10/08/23 05:29 Labs: Abnormal Lab Results - Last 24 Hours (Table) 10/07/23 10/07/23 10/08/23 Range/Units 17:36 21:34 00:20 RBC (4.30-5.90) m/uL Hgb (13.0-17.5) gm/dL Hct (39.0-53.0) % Sodium (137-145) mmol/L Potassium 2.4 L* 2.4 L* (3.5-5.1) mmol/L Chloride (98-107) mmol/L Carbon Dioxide 35 H (22-30) mmol/L BUN (9-20) mg/dL Creatinine 0.64 L (0.66-1.25) mg/dL Glucose 125 H (74-99) mg/dL POC Glucose (mg/dL) 143 H (70-110) mg/dL Hemoglobin A1c (<=6.0) % Calcium 7.6 L (8.4-10.2) mg/dL 10/08/23 10/08/23 10/08/23 Range/Units 05:25 05:29 05:29 RBC (4.30-5.90) m/uL Hgb (13.0-17.5) gm/dL Hct (39.0-53.0) % Sodium 132 L (137-145) mmol/L Potassium 2.6 L* (3.5-5.1) mmol/L Chloride 97 L (98-107) mmol/L Carbon Dioxide 34 H (22-30) mmol/L BUN 8 L (9-20) mg/dL Creatinine 0.58 L (0.66-1.25) mg/dL Glucose 113 H (74-99) mg/dL POC Glucose (mg/dL) 121 H (70-110) mg/dL Hemoglobin A1c 6.4 H (<=6.0) % Calcium 7.1 L (8.4-10.2) mg/dL 10/08/23 10/08/23 Range/Units 05:29 11:10 RBC 3.55 L (4.30-5.90) m/uL Hgb 11.3 L (13.0-17.5) gm/dL Hct 33.2 L (39.0-53.0) % Sodium (137-145) mmol/L Potassium (3.5-5.1) mmol/L Chloride (98-107) mmol/L Carbon Dioxide (22-30) mmol/L BUN (9-20) mg/dL Creatinine (0.66-1.25) mg/dL Glucose (74-99) mg/dL POC Glucose (mg/dL) 128 H (70-110) mg/dL Hemoglobin A1c (<=6.0) % Calcium (8.4-10.2) mg/dL Microbiology - Last 24 Hours (Table) 10/06/23 10:11 Blood Culture Gram Stain - Preliminary Blood Blood Culture - Preliminary Molecular ID Assessment and Plan Time with Patient: Less than 30
[2023-10-08 20:05] LABS: Glucose,Whole Blood 110 mg/dL (70-110)
[2023-10-09 06:15] LABS: Glucose,Whole Blood 99 mg/dL (70-110)
[2023-10-09 11:13] LABS: Glucose,Whole Blood 90 mg/dL (70-110)
[2023-10-09 12:04] LABS: African American GFR (CKD) >90 (>60 ml/min/1.73 sqM); Anion Gap 1 mmol/L; Blood Urea Nitrogen 7 mg/dL (9-20); Calcium 7.5 mg/dL (8.4-10.2); Carbon Dioxide 31 mmol/L (22-30); Chloride 106 mmol/L (98-107); Glucose 90 mg/dL (74-99); Magnesium 1.8 mg/dL (1.6-2.3); Non-African American GFR(CKD) >90 (>60 ml/min/1.73 sqM); Potassium 3.1 mmol/L (3.5-5.1); Sodium 138 mmol/L (137-145)
[2023-10-09] MEDS: POTASSIUM CHLORIDE 10 MEQ in WATER FOR INJECTION 1 100ML.BAG IVPB SCH (12:28)
--- NOTE | 2023-10-09 12:47 | P.PN ---
Subjective Progress Note Date: 10/09/23 CHIEF COMPLAINT: Abdominal pain with nausea and vomiting HISTORY OF PRESENT ILLNESS: Patient reports no abdominal pain. He reports decrease in the nausea and vomiting. He had 1 episode of spit up this morning. He is scheduled for upper GI today for evaluation of esophageal dysmotility. Potassium 3.1 and being replaced PHYSICAL EXAM: VITAL SIGNS: Reviewed. GENERAL: Well-developed in no acute distress. ABDOMEN: Soft. Nondistended. NEUROLOGIC: Alert and oriented. Cranial nerves II through XII grossly intact. ASSESSMENT: 1. Abdominal pain with nausea and vomiting likely due to esophageal dysmotility disorder 2. Recent laparoscopic repair of paraesophageal hiatal hernia with mesh on 09/24 3. Hypokalemia PLAN: -Patient scheduled for upper GI today -Continue to correct potassium Physician Manager Specialty note has been reviewed by physician. Signing provider agrees with the documented findings, assessment, and plan of care. Objective - Vital Signs Vital signs: Vital Signs Temp 98.0 F 10/09/23 08:12 Pulse 77 10/09/23 08:12 Resp 16 10/09/23 08:12 BP 98/65 10/09/23 08:12 Pulse Ox 96 10/09/23 08:12 FiO2 Intake & Output 10/08/23 10/09/23 10/09/23 18:59 06:59 18:59 Output Total 450 850 250 Balance -450 -850 -250 Output: Urine 450 850 250 Other: # Voids 1 - Labs CBC & Chem 7: 10/08/23 05:29 10/09/23 10:51 Labs: Abnormal Lab Results - Last 24 Hours (Table) 10/08/23 10/09/23 Range/Units 20:18 10:51 Potassium 2.9 L 3.1 L (3.5-5.1) mmol/L Carbon Dioxide 31 H (22-30) mmol/L BUN 7 L (9-20) mg/dL Creatinine 0.55 L (0.66-1.25) mg/dL Calcium 7.5 L (8.4-10.2) mg/dL Microbiology - Last 24 Hours (Table) 10/06/23 10:11 Blood Culture Gram Stain - Preliminary Blood Blood Culture - Preliminary Coagulase Negative Staph Molecular ID
--- NOTE | 2023-10-09 14:55 | FL ---
EXAMINATION TYPE: FL UGI w esophagus DATE OF EXAM: 10/09/2023 COMPARISON: 09/22/2023 HISTORY: 67-year-old male vomiting, abdominal pain TECHNIQUE: A single contrast UGI study is performed. A total of 2 minutes 53 seconds of fluoroscopi c time was utilized during procedure and 40 images obtained. Total dose area product (DAP) in uGy*m?, mGy*cm? (or similar): 433.2. FINDINGS: The exam is limited by the patient's slow rate of contrast ingestion. Esophagus shows norm al course and caliber. There is satisfactory passage of contrast from the esophagus into the stomach. There is a small rounded air lucency projecting at the GE junction and projecting above the level of the diaphragm. There is mild gastroesophageal reflux with Valsalva and turning maneuvers. The degree of gastric distention is inadequate for detailed assessment. No obvious filling defect is seen. IMPRESSION: 1. Exam is limited by the patient's slow rate of contrast ingestion and inability to tolerate larger and faster swallows. 2. Small rounded air lucency projecting at the GE junction, above the level of the diaphragm. This do es not fill with contrast during the swallows. Unclear if this represents a small residual paraesopha geal hernia. 3. Mild gastroesophageal reflux.
[2023-10-09 16:38] LABS: Glucose,Whole Blood 99 mg/dL (70-110)
[2023-10-09 20:08] LABS: Glucose,Whole Blood 117 mg/dL (70-110)
--- NOTE | 2023-10-09 21:11 | P.PN ---
Subjective Progress Note Date: 10/09/23 Patient is a 67-year-old male came in for epigastric abdominal pain nausea vomiting intractable and multiple episodes of coffee-ground emesis and feeling weak. Patient is hemoglobin is 15.3. Patient had a recent hiatal hernia repair. Patient had a CT of the abdomen which showed areas of pneumoperitoneum probably secondary to surgery. No other significant abnormality was appreciated except for a 10 mm pulmonary nodule which need further outpatient evaluation with a PET scan or a follow-up CTs. Patient was complaining of epigastric abdominal pain moderate severity patient is dehydrated with elevated lactic acid of 6.5 which has come down patient does not have any fever chills no evidence of any other infection serum sodium is 150 serum potassium is 3.2. Patient has mild elevated troponin of 0.128 patient had similar elevations of troponin during his last hospitalization as well. I reviewed multiple EKGs all of them showed diffuse ST depressions. During his last hospitalization patient was evaluated by cardiology for these findings had an echocardiogram which was essentially within normal limits no further intervention is done at the time patient denies any chest pain to me. Patient is INR is 1.6 patient denies any alcohol abuse. 10/07/2023 Patient is evaluated today on the cardiac stepdown unit. Continues to report nausea and has been placed NPO by surgery with plans for upper GI on monday. Patient remains on D5 water at 75 mls per hour and sodium has improved to 140. Patient has no signs of active bleeding and hemoglobin is currently 12.2. WBC of 14.9. Potassium of 3.0 and magnesium of 1.7. 10/08/2023 Patient is evaluated today in follow up. Reports improvement in his nausea. Remains NPO with plans to undergo upper GI on monday. Potassium remains low and patient will continue to receive IV supplementation. Patient unable to tolerate oral potassium or liquid potassium PO replacement. Sodium 132 and D5 water has been discontinued. 10/09/2023 Patient is evaluated today in follow up. Hungry, remains NPO for the upper GI which is currently pending at this time. He has not got out of bed much and PT/OT will be consulted. Potassium up to 3.1 today and patient continues on normal saline with added potassium additionally with receive IV supplementation today. Blood cultures showing coagulase negative staph which is a contaminent species and no need for antibiotic therapy. Review of Systems Constitutional: Denied any fatigue denied any fever. Cardio vascular: denied any chest pain, palpitations Gastrointestinal: Reports nausea, denies vomiting or diarrhea. Pulmonary: Denied any shortness of breath cough Neurologic denied any new focal deficits All inpatient medications were reviewed and appropriate changes in these medications as dictated in the interval history and assessment and plan. PHYSICAL EXAMINATION: GENERAL: The patient is alert and oriented x3, not in any acute distress. Thin built HEENT: Pupils are round and equally reacting to light. EOMI. No scleral icterus. No conjunctival pallor. Normocephalic, atraumatic. No pharyngeal erythema. No thyromegaly. CARDIOVASCULAR: S1 and S2 present. No murmurs, rubs, or gallops. PULMONARY: Chest is clear to auscultation, no wheezing or crackles. ABDOMEN: Soft, nontender, nondistended, normoactive bowel sounds. No palpable organomegaly. MUSCULOSKELETAL: No joint swelling or deformity. EXTREMITIES: No cyanosis, clubbing, or pedal edema. NEUROLOGICAL: Gross neurological examination did not reveal any focal deficits. SKIN: No rashes. Assessment and plan -Epigastric abdominal pain nausea vomiting patient probably still has gastritis patient will be continued on proton pump inhibitor as well as maalox. -Recent laproscopic repair of paraesophageal hiatal hernia with mesh pending upper GI today. -Lactic acidosis secondary to dehydration, normalized -Acute renal failure secondary to dehydration patient will be continued on IV fluids. Renal function has improved. -Hypokalemia secondary to nausea vomiting and IV fluids potassium will be replaced. -Hypernatremia due to poor oral intake and this has improved with the D5 in water which has been discontinued. -Elevated troponins patient has chronic elevation of troponins this elevation may be secondary to acute renal failure patient was extensively evaluated by cardiology during his last hospitalization no further intervention is necessary at this time I do not believe patient has myocardial infarction at this time -Leukocytosis reactive secondary to nausea vomiting -Mild coagulopathy may be due to vitamin K deficiency from prolonged GI issues and nausea vomiting. -Rheumatoid arthritis -Depression for which patient takes sertraline and buspirone which will be resumed DVT prophylaxis: Early ambulation GI prophylaxis Full Code Continue to monitor electrolytes and replace per protocol. Continue NPO diet order and plans for upper GI today. General surgery following. Fluids have been changed to normal saline with added potassium running at 50 mls/hr. Potassium 3.1 today and will be replaced with IV supplementation per protocol. Repeat labs in the AM. PT/OT consultation for discharge planning. The impression and plan of care has been dictated by Desiree Clarke Nurse Practitioner as directed. Dr. Cyndi MD I have performed a history and physical examination and medical decision making of this patient, discussed the same with the dictator, and agree with the dictators assessment and plan as written, documented as a scribe. Based on total visit time, I have performed more than 50% of this visit. Objective - Vital Signs Vital signs: Vital Signs Temp 98.0 F 10/09/23 08:12 Pulse 74 10/09/23 14:53 Resp 16 10/09/23 14:53 BP 99/54 10/09/23 14:53 Pulse Ox 97 10/09/23 14:53 FiO2 Intake & Output 10/09/23 10/09/23 10/10/23 06:59 18:59 06:59 Intake Total 1060 Output Total 850 550 Balance -850 510 Intake: Intake, IV Titration 950 Amount 0.9% NaCl with KCl 20 Meq 550 /l 1,000 ml @ 50 mls/hr IV .Q20H [facility] Rx#: [id number] Potassium Chloride 10 meq 400 In Water For Injection 1 100ml.bag @ 100 mls/hr IVPB Q1HR [facility] Rx#: [id number] Oral 110 Output: Urine 850 550 Other: # Voids 1 - Labs CBC & Chem 7: 10/08/23 05:29 10/09/23 10:51 Labs: Abnormal Lab Results - Last 24 Hours (Table) 10/08/23 10/09/23 10/09/23 Range/Units 20:18 10:51 20:07 Potassium 2.9 L 3.1 L (3.5-5.1) mmol/L Carbon Dioxide 31 H (22-30) mmol/L BUN 7 L (9-20) mg/dL Creatinine 0.55 L (0.66-1.25) mg/dL POC Glucose (mg/dL) 117 H (70-110) mg/dL Calcium 7.5 L (8.4-10.2) mg/dL Microbiology - Last 24 Hours (Table) 10/06/23 10:11 Blood Culture Gram Stain - Preliminary Blood Blood Culture - Preliminary Coagulase Negative Staph Molecular ID Assessment and Plan Time with Patient: Less than 30
[2023-10-10 06:13] LABS: Glucose,Whole Blood 119 mg/dL (70-110)
[2023-10-10 09:01] VITALS: TEMP 97.9
[2023-10-10 11:19] LABS: African American GFR (CKD) >90 (>60 ml/min/1.73 sqM); Anion Gap 3 mmol/L; Blood Urea Nitrogen 8 mg/dL (9-20); Calcium 7.7 mg/dL (8.4-10.2); Carbon Dioxide 28 mmol/L (22-30); Chloride 109 mmol/L (98-107); Glucose 142 mg/dL (74-99); Magnesium 1.6 mg/dL (1.6-2.3); Non-African American GFR(CKD) >90 (>60 ml/min/1.73 sqM); Potassium 3.6 mmol/L (3.5-5.1); Sodium 140 mmol/L (137-145)
[2023-10-10 11:29] LABS: Glucose,Whole Blood 146 mg/dL (70-110)
[2023-10-10] MEDS: POTASSIUM CHLORIDE 10 MEQ in WATER FOR INJECTION 1 100ML.BAG IVPB SCH (12:39)
--- NOTE | 2023-10-10 12:46 | P.PN ---
Subjective Progress Note Date: 10/10/23 CHIEF COMPLAINT: Abdominal pain with nausea and vomiting HISTORY OF PRESENT ILLNESS: Patient reports no abdominal pain. Patient did have some mild vomiting or spit up early this morning before breakfast. He was able to tolerate the full liquids. He is currently lying in bed comfortably. Upper GI completed yesterday. Report states exam limited small rounded air lucency projecting at the GE junction above the level of the diaphragm. This does not fill with contrast during swallows. Unclear if this represents small residual paraesophageal hernia. Mild GERD. Afebrile. Potassium 3.6 PHYSICAL EXAM: VITAL SIGNS: Reviewed. GENERAL: Well-developed in no acute distress. ABDOMEN: Soft. Nondistended. NEUROLOGIC: Alert and oriented. Cranial nerves II through XII grossly intact. ASSESSMENT: 1. Abdominal pain with nausea and vomiting likely due to esophageal dysmotility disorder. UGI with area that may represent residual paraesophageal hernia 2. Recent laparoscopic repair of paraesophageal hiatal hernia with mesh on 09/25/2023 3. Hypokalemia improved PLAN: -Patient can be discharged from surgical standpoint -Recommend patient stays on a full liquid diet until seen by surgeon in office -Continue antiemetics as needed Physician Instrument Lens Generator note has been reviewed by physician. Signing provider agrees with the documented findings, assessment, and plan of care. Objective - Vital Signs Vital signs: Vital Signs Temp 97.9 F 10/10/23 08:26 Pulse 101 H 10/10/23 08:26 Resp 15 10/10/23 08:26 BP 131/89 10/10/23 08:26 Pulse Ox 94 L 10/10/23 08:26 FiO2 Intake & Output 10/09/23 10/10/23 10/10/23 18:59 06:59 18:59 Intake Total 1060 10 10 Output Total 550 600 300 Balance 510 -590 -290 Intake: IV 10 10 Invasive Line 2 10 10 Intake, IV Titration 950 Amount 0.9% NaCl with KCl 20 Meq 550 /l 1,000 ml @ 50 mls/hr IV .Q20H [facility] Rx#: [id number] Potassium Chloride 10 meq 400 In Water For Injection 1 100ml.bag @ 100 mls/hr IVPB Q1HR [facility] Rx#: [id number] Oral 110 Output: Urine 550 600 300 Other: Voiding Method Toilet Toilet Urinal Urinal - Labs CBC & Chem 7: 10/08/23 05:29 10/10/23 10:41 Labs: Abnormal Lab Results - Last 24 Hours (Table) 10/09/23 10/10/23 10/10/23 Range/Units 20:07 06:12 10:41 Chloride 109 H (98-107) mmol/L BUN 8 L (9-20) mg/dL Creatinine 0.50 L (0.66-1.25) mg/dL Glucose 142 H (74-99) mg/dL POC Glucose (mg/dL) 117 H 119 H (70-110) mg/dL Calcium 7.7 L (8.4-10.2) mg/dL 10/10/23 Range/Units 11:27 Chloride (98-107) mmol/L BUN (9-20) mg/dL Creatinine (0.66-1.25) mg/dL Glucose (74-99) mg/dL POC Glucose (mg/dL) 146 H (70-110) mg/dL Calcium (8.4-10.2) mg/dL Microbiology - Last 24 Hours (Table) 10/06/23 10:11 Blood Culture Gram Stain - Preliminary Blood Blood Culture - Preliminary Coagulase Negative Staph Molecular ID
[2023-10-10] MEDS: MAGNESIUM SULFATE-D5W PMX 1 GM in DEXTROSE/WATER 1 100ML.BAG IVPB SCH (14:49)
[2023-10-10 16:01] VITALS: BP 112/65; PULSE 71; RESP 16
--- NOTE | 2023-10-13 22:21 | P.DS ---
Providers Date of admission: 10/06/23 07:55 Attending physician: Magda Bowie Consults: 10/06/23 07:52 Consult Physician Routine Consulting Provider: Rickie Pavon Consult Reason/Comments: your post-op patient Do you want consulting provider notified?: Yes Primary care physician: Misael Hopkins Hospital Course: Final Diagnosis -Epigastric abdominal pain nausea vomiting patient probably still has gastritis -Recent laproscopic repair of paraesophageal hiatal hernia with mesh -Left lower lobe pulmonary nodule more pronounced than prior CT in 2022. 10 mm in size. -Lactic acidosis secondary to dehydration, normalized -Acute renal failure secondary to dehydration -Hypokalemia secondary to nausea vomiting -Hypernatremia due to poor oral intake and this has improved -Elevated troponins patient has chronic elevation of troponins this elevation may be secondary to acute renal failure -Leukocytosis reactive secondary to nausea vomiting -Mild coagulopathy may be due to vitamin K deficiency from prolonged GI issues and nausea vomiting. -Rheumatoid arthritis -Depression Discharge Disposition Patient is stable for discharge. Patient has been cleared by GI surgery requiring close follow up. Patient to continue on full liquid diet until follow up with GI services. Patient has been recommended to follow up with pulmonary on discharge. Repeat blood work in 2 to 3 days. Hospital Course Patient is a 67-year-old male came in for epigastric abdominal pain nausea vomiting intractable and multiple episodes of coffee-ground emesis and feeling weak. Patient is hemoglobin is 15.3. Patient had a recent hiatal hernia repair. Patient had a CT of the abdomen which showed areas of pneumoperitoneum probably secondary to surgery. No other significant abnormality was appreciated except for a 10 mm pulmonary nodule which need further outpatient evaluation with a PET scan or a follow-up CTs. Patient was complaining of epigastric abdominal pain moderate severity patient is dehydrated with elevated lactic acid of 6.5 which has come down patient does not have any fever chills no evidence of any other infection serum sodium is 150 serum potassium is 3.2. Patient has mild elevated troponin of 0.128 patient had similar elevations of troponin during his last hospitalization as well. After review patient has had multiple EKGs all of them showed diffuse ST depressions. During his last hospitalization patient was evaluated by cardiology for these findings had an echocardiogram which was essentially within normal limits no further intervention is done at the time patient denies any chest pain to me. Patient is INR is 1.6 patient denies any alcohol abuse. Blood cultures showing coagulase negative staph which is a contaminent species and no need for antibiotic therapy. General surgery has evalutaed the patient and patient underwent upper GI with area that may represent residual paraesophageal hernia repair. Patients GI symptoms have improved. His electrolytes have improved. He has been tolerating full liquid diet and has been cleared for discharge. Please see medication reconciliation for a list of current medications. Thank you for allowing us to participate in the care of this patient. The impression and plan of care has been dictated by Desiree Clarke, Nurse Practitioner as directed. Dr. Cyndi MD I have performed a history and physical examination and medical decision making of this patient, discussed the same with the dictator, and agree with the dictators assessment and plan as written, documented as a scribe. Based on total visit time, I have performed more than 50% of this visit. Patient Condition at Discharge: Fair Plan - Discharge Summary Discharge Rx Participant: No New Discharge Prescriptions: New Ondansetron Odt [Zofran Odt] 4 mg PO Q8HR PRN #9 tab PRN Reason: Nausea Continue busPIRone HCL [Buspar] 7.5 mg PO BID Albuterol Inhaler [Ventolin Hfa Inhaler] 2 puff INHALATION RT-Q4H PRN PRN Reason: Shortness Of Breath HYDROcodone/APAP 5-325MG [[place] 5-325] 1 tab PO Q6HR PRN 2 Days #8 tab PRN Reason: Pain Omeprazole 20 mg PO BID Sertraline [Zoloft] 25 mg PO DAILY Nitroglycerin Sl Tabs [Nitrostat] 0.4 mg SUBLINGUAL Q5M PRN PRN Reason: Chest Pain Discharge Medication List Nitroglycerin Sl Tabs [Nitrostat] 0.4 mg SUBLINGUAL Q5M PRN 08/08/23 [History] Sertraline [Zoloft] 25 mg PO DAILY 08/08/23 [History] busPIRone HCL [Buspar] 7.5 mg PO BID 08/08/23 [History] Albuterol Inhaler [Ventolin Hfa Inhaler] 2 puff INHALATION RT-Q4H PRN 09/25/23 [History] HYDROcodone/APAP 5-325MG [[place] 5-325] 1 tab PO Q6HR PRN 2 Days #8 tab 09/26/23 [Rx] Omeprazole 20 mg PO BID 10/06/23 [History] Ondansetron Odt [Zofran Odt] 4 mg PO Q8HR PRN #9 tab 10/10/23 [Rx] Follow up Appointment(s)/Referral(s): Misael Hopkins MD [Primary Care Provider] - 1-2 days (Unable to reach office staff. 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 Please call the office to schedule follow up. ) Rickie Pavon MD [STAFF PHYSICIAN] - 10/17/23 3:20 pm Ambulatory/Diagnostic Orders: Basic Metabolic Panel [LAB.AMB] Time Frame: 3 Days, Location: None Selected Magnesium [LAB.AMB] Time Frame: 3 Days, Location: None Selected Patient Instructions/Handouts: Dehydration (ED) Activity/Diet/Wound Care/Special Instructions: Continue full liquid diet at discharge Discharge Disposition: HOME SELF-CARE
== END 2023-10-10 17:29 | disposition home or self-care (01) ==
LOC: EC 23:20 → INTOOBSV 10-06 07:55 → 3SCARD 10-06 07:55
PROVIDERS: ADMIT Hospitalist; ATTEND Hospitalist
DX: R10.13 Epigastric pain (principal); R11.2 Nausea with vomiting, unspecified; N17.9 Acute kidney failure, unspecified; E87.6 Hypokalemia; F32.A Depression, unspecified; R79.89 Other specified abnormal findings of blood chemistry; Z79.899 Other long term (current) drug therapy; I25.10 Atherosclerotic heart disease of native coronary artery without angina pectoris; Z86.73 Personal history of transient ischemic attack (TIA), and cerebral infarction without residual deficits; K21.9 Gastro-esophageal reflux disease without esophagitis; E78.5 Hyperlipidemia, unspecified; I10 Essential (primary) hypertension; M06.9 Rheumatoid arthritis, unspecified; F41.9 Anxiety disorder, unspecified; Z87.891 Personal history of nicotine dependence; E86.0 Dehydration; Z98.890 Other specified postprocedural states; J45.909 Unspecified asthma, uncomplicated
CPT/HCPCS: 96361; 96365; 96366 ×3; 96367; 96375; 96376 ×4; 99285; 36415; 94640 ×2; 93005; 97162; 97166; 36410; 76937; 80053; 80048 ×4; 82150; 83605; 83690; 83735 ×4; 84132; 84484; 85025 ×2; 85027; 85610; 85730; 81003; 87040; 87077; 87186; 83036; 74240; 74177; G0378 ×5; J2543; J2270; J2765 ×4; J2405 ×4; J3475 ×2; J3480 ×4; C9113 ×4; Q9967

== ENCOUNTER 2023-10-17 13:44 | Inpatient (IN) | payer MEDICARE, OTHER ==
--- NOTE | 2023-10-17 13:59 | ED ---
General Adult HPI - General Chief complaint: Weakness Stated complaint: Failure to Thrive Time Seen by Provider: 10/17/23 13:50 Source: patient, EMS, RN notes reviewed, old records reviewed Mode of arrival: EMS Limitations: no limitations - History of Present Illness Initial comments: This is a 67-year-old male who presents to the emergency department by EMS. According to EMS family states the patient has had failure to thrive he is not eating or drinking and has already been to the hospital for this before but they have not been able to find anything but a hiatal hernia. Patient does not understand why he is not hungry and unable to eat or drink. Patient states he just feels extremely weak all over. According to paramedics patient's blood p ressure was very low on arrival to the home. Patient denies any fever or chills. Patient denies any vomiting but states he is nauseous. Patient has any diarrhea. Patient does complain of some abdominal pain but he points to his whole abdomen no specific spot. - Related Data Home Medications Medication Instructions Recorded Confirmed Nitroglycerin Sl Tabs [Nitrostat] 0.4 mg SUBLINGUAL Q5M PRN 08/08/23 10/17/23 Sertraline [Zoloft] 25 mg PO DAILY 08/08/23 10/17/23 busPIRone HCL [Buspar] 7.5 mg PO BID 08/08/23 10/17/23 Albuterol Inhaler [Ventolin Hfa 2 puff INHALATION RT-Q4H PRN 09/25/23 10/17/23 Inhaler] Omeprazole 20 mg PO BID 10/06/23 10/17/23 Previous Rx's Medication Instructions Recorded HYDROcodone/APAP 5-325MG [[place] 1 tab PO Q6HR PRN 2 Days #8 tab 09/26/23 5-325] Ondansetron Odt [Zofran Odt] 4 mg PO Q8HR PRN #9 tab 10/10/23 Allergies Allergy/AdvReac Type Severity Reaction Status Date / Time No Known Allergies Allergy Verified 10/17/23 16:15 Review of Systems ROS Statement: Those systems with pertinent positive or pertinent negative responses have been documented in the HPI. ROS Other: All systems not noted in ROS Statement are negative. Past Medical History Past Medical History: Asthma, Coronary Artery Disease (CAD), Chest Pain / Angina , CVA/TIA, GERD/Reflux, Hyperlipidemia, Hypertension, Pneumonia, Rheumatoid Arthritis (RA) Additional Past Medical History / Comment(s): MIGRAINES, HEART MURMUR, hx HIATAL HERNIA, ANEMIA, one dr told him he had a stroke at one time-no effects, varicose veins, history of incarcerated per esophageal hernia, status post robotic-assisted paraesophageal hernia repair and Frederick fundoplication on 04/12/2022. History of Any Multi-Drug Resistant Organisms: None Reported Past Surgical History: Cholecystectomy, Heart Catheterization, Hernia Repair, Orthopedic Surgery Additional Past Surgical History / Comment(s): Lt achilles tendon,RT SHOULDER surgery, RT ACHILLES TENDON reattached, HEMORRHOIDECTOMY, 13 FATTY TUMORS removed. left hand index finger surgery after injury, EGD WITH DILATION, paraesophageal hernia repair with Frederick fundoplication on 04/12/2022. Past Anesthesia/Blood Transfusion Reactions: No Reported Reaction Additional Past Anesthesia/Blood Transfusion Reaction / Comment(s): no hx blood transfusion Past Psychological History: Anxiety, Depression Smoking Status: Current some day smoker Past Alcohol Use History: None Reported Past Drug Use History: Marijuana - Past Family History Mother Family Medical History: Cancer Father Additional Family Medical History / Comment(s): thinks aneurysm General Exam - General Exam Comments Initial Comments: GENERAL: Patient is cachectic. Patient is nontoxic and well-hydrated and is in no acute distress. ENT: Neck is soft and supple. No significant lymphadenopathy is noted. Oropharynx is clear. Moist mucous membranes. Neck has full range of motion without eliciting any pain. EYES: The sclera were anicteric and conjunctiva were pink and moist. Extraocular movements were intact and pupils were equal round and reactive to light. Eyelids were unremarkable. PULMONARY: Unlabored respirations. Good breath sounds bilaterally. No audible rales rhonchi or wheezing was noted. CARDIOVASCULAR: There is a regular rate and rhythm without any murmurs gallops or rubs. ABDOMEN: Soft and nontender with normal bowel sounds. No palpable organomegaly was noted. There is no palpable pulsatile mass. SKIN: Skin is clear with no lesions or rashes and otherwise unremarkable. NEUROLOGIC: Patient is alert and oriented x3. Cranial nerves II through XII are grossly intact. Motor and sensory are also intact. Normal speech, volume and content. Symmetrical smile. MUSCULOSKELETAL: Normal extremities with adequate strength and full range of motion. No lower extremity swelling or edema. No calf tenderness. LYMPHATICS: No significant lymphadenopathy is noted PSYCHIATRIC: Normal psychiatric evaluation. Limitations: no limitations Course Vital Signs 10/17/23 10/17/23 10/17/23 13:46 14:48 15:52 Temperature 97.5 F L Pulse Rate 130 H 111 H 101 H Respiratory 16 18 18 Rate Blood Pressure 83/63 94/51 105/91 O2 Sat by Pulse 99 96 96 Oximetry 10/17/23 18:31 Temperature Pulse Rate 106 H Respiratory 22 Rate Blood Pressure 134/108 O2 Sat by Pulse 95 Oximetry Medical Decision Making - Medical Decision Making EKG was interpreted by myself. EKG shows sinus tachycardia at a rate of 131 bpm parable 105 QRS is 87 QT interval 300 QTc is 377. Patient's EKG shows ST segment depression in precordial leads as well as inferior leads. This was seen on previous EKGs. Repeat EKG was done after the patient's vitals stabilized. EKG was interpreted by myself. EKG shows a sinus tachycardia 116 bpm parables 137 QRS is 88 QT interval 336 QTc is 405. Patient's EKG shows diffuse T wave inversions in inferior and precordial leads Was pt. sent in by a medical professional or institution (, [facility], [employer], urgent care, hospital, or fdc...) When possible be specific @ -No Did you speak to anyone other than the patient for history (EMS, parent, family, police, friend...)? What history was obtained from this source @ -EMS gave us the history per the family because they were not here Did you review nursing and triage notes (agree or disagree)? Why? @ -I reviewed and agree with nursing and triage notes Were old charts reviewed (outside hosp., previous admission, EMS record, old EKG, old radiological studies, urgent care reports/EKG's, fdc records)? Report findings @ -I reviewed the patient's prior hospitalization charts. Patient was here and evaluated by surgery besides a hiatal hernia and no explanation can be given as to why the patient was feeling bad and not eating appropriately Differential Diagnosis (chest pain, altered mental status, abdominal pain women, abdominal pain men, vaginal bleeding, weakness, fever, dyspnea, syncope, headache, dizziness, GI bleed, back pain, seizure, CVA, palpatations, mental health, musculoskeletal)? @ -Differential Weakness: Hypoglycemia, shock, sepsis, hyponatremia, anemia, infection, ME, ETOH, adverse medicine reaction, overdose, stroke, this is not meant to be an all-inclusive l ist. EKG interpreted by me (3pts min.). @ -As above X-rays interpreted by me (1pt min.). @ -Chest x-ray shows no acute normality CT interpreted by me (1pt min.). @ -None done U/S interpreted by me (1pt. min.). @ -None done What testing was considered but not performed or refused? (CT, X-rays, U/S, labs)? Why? @ -None What meds were considered but not given or refused? Why? @ -None Did you discuss the management of the patient with other professionals (professionals i.e. , PA, [employer], lab, RT, psych nurse, social worker health services, drying supervisor, teacher, attendance officer, luncheonette manager)? Give summary @ -I spoke with [facility] they agreed admit the patient Was smoking cessation discussed for >3mins.? @ -No Was critical care preformed (if so, how long)? @ -No Were there social determinants of health that impacted care today? How? (Homelessness, low income, unemployed, alcoholism, drug addiction, transportation, low edu. Level, literacy, decrease access to med. care, alf, rehab)? @ -No Was there de-escalation of care discussed even if they declined (Discuss DNR or withdrawal of care, Hospice)? DNR status @ -No What co-morbidities impacted this encounter? (DM, HTN, Smoking, COPD, CAD, C ancer, CVA, ARF, Chemo, Hep., AIDS, mental health diagnosis, sleep apnea, morbid obesity)? @ -None Was patient admitted / discharged? Hospital course, mention meds given and route, prescriptions, significant lab abnormalities, going to OR and other pertinent info. @ -Patient came in with slightly low blood pressure and tachycardia. Patient was given a liter half of fluid and heart rate came down nicely and the blood pressure was within the normal range. Patient was feeling a little bit better. Patient had an elevated creatinine when compared to prior labs also troponin was elevated over the last 3 visits the troponin has been elevated. Patient's lactic acid is 6.1 I find no source for infection so I do not believe this is secondary to infection I believe is secondary to dehydration and lack of nutrition. I spoke with [facility] hospitalist they agreed admit the patient admit the patient wrote admitting orders Undiagnosed new problem with uncertain prognosis? @ -No Drug Therapy requiring intensive monitoring for toxicity (Heparin, Nitro, Insulin, Cardizem)? @ -No Were any procedures done? @ -No Diagnosis/symptom? @ -Generalized weakness Acute, or Chronic, or Acute on Chronic? @ -Acute Uncomplicated (without systemic symptoms) or Complicated (systemic symptoms)? @ -Complicated Side effects of treatment? @ -No Exacerbation, Progression, or Severe Exacerbation? @ -No Poses a threat to life or bodily function? How? (Chest pain, USA, ME, pneumonia, PE, COPD, DKA, ARF, appy, cholecystitis, CVA, Diverticulitis, Homicidal, Suicidal, threat to staff... and all critical care pts) @ -No Diagnosis/symptom? @ -Acute renal failure Acute, or Chronic, or Acute on Chronic? @ -Acute Uncomplicated (without systemic symptoms) or Complicated (systemic symptoms)? @ -Complicated Side effects of treatment? @ -None Exacerbation, Progression, or Severe Exacerbation] @ -No Poses a threat to life or bodily function? @ -No Diagnosis/symptom? @ -Lactic acidosis Acute, or Chronic, or Acute on Chronic? @ -Acute Uncomplicated (without systemic symptoms) or Complicated (systemic symptoms)? @ -Complicated Side effects of treatment? @ -None Exacerbation, Progression, or Severe Exacerbation] @ -No Poses a threat to life or bodily function? @ -Yes this can lead to severe acidosis and endorgan dysfunction Diagnosis/symptom? @ -Elevated troponin Acute, or Chronic, or Acute on Chronic? @ -acute Uncomplicated (without systemic symptoms) or Complicated (systemic symptoms)? @ -Complicated Side effects of treatment? @ -None Exacerbation, Progression, or Severe Exacerbation] @ -No Poses a threat to life or bodily function? @ -Yes this could lead to an ME and endorgan dysfunction - Lab Data Result diagrams: 10/17/23 14:45 10/17/23 14:45 Lab Results 10/17/23 10/17/23 10/17/23 Range/Units 14:45 14:45 14:45 WBC 13.3 H (3.8-10.6) k/uL RBC 5.03 (4.30-5.90) m/uL Hgb 15.5 D (13.0-17.5) gm/dL Hct 49.0 (39.0-53.0) % MCV 97.6 (80.0-100.0) fL MCH 30.8 (25.0-35.0) pg MCHC 31.6 (31.0-37.0) g/dL RDW 16.0 H (11.5-15.5) % Plt Count 403 (150-450) k/uL MPV 10.1 Neutrophils % 91 % Lymphocytes % 6 % Monocytes % 3 % Eosinophils % 0 % Basophils % 0 % Neutrophils # 12.1 H (1.3-7.7) k/uL Lymphocytes # 0.7 L (1.0-4.8) k/uL Monocytes # 0.4 (0-1.0) k/uL Eosinophils # 0.0 (0-0.7) k/uL Basophils # 0.0 (0-0.2) k/uL Macrocytosis Slight PT 11.9 (10.0-12.5) sec INR 1.1 (<1.2) APTT 22.4 (22.0-30.0) sec Sodium 153 H (137-145) mmol/L Potassium 4.1 (3.5-5.1) mmol/L Chloride 110 H (98-107) mmol/L Carbon Dioxide 26 (22-30) mmol/L Anion Gap 17 mmol/L BUN 49 H (9-20) mg/dL Creatinine 1.69 H (0.66-1.25) mg/dL Est GFR (CKD-EPI)AfAm 48 (>60 ml/min/1.73 sqM) Est GFR (CKD-EPI)NonAf 42 (>60 ml/min/1.73 sqM) Glucose 169 H (74-99) mg/dL Lactic Ac Sepsis Rflx Plasma Lactic Acid Jack (0.7-2.0) mmol/L Calcium 9.5 (8.4-10.2) mg/dL Magnesium 2.4 H (1.6-2.3) mg/dL Total Bilirubin 1.5 H (0.2-1.3) mg/dL AST 49 (17-59) U/L ALT 33 (4-49) U/L Alkaline Phosphatase 144 H (38-126) U/L Troponin I (0.000-0.034) ng/mL Total Protein 6.7 (6.3-8.2) g/dL Albumin 3.9 (3.5-5.0) g/dL Urine Color Urine Appearance (Clear) Urine pH (5.0-8.0) Ur Specific [place] (1.001-1.035) Urine Protein (Negative) Urine Glucose (UA) (Negative) Urine Ketones (Negative) Urine Blood (Negative) Urine Nitrite (Negative) Urine Bilirubin (Negative) Urine Urobilinogen (<2.0) mg/dL Ur Leukocyte Esterase (Negative) Urine RBC (0-5) /hpf Urine WBC (0-5) /hpf Ur Squamous Epith Cells (0-4) /hpf Hyaline Casts (0-2) /lpf Urine Mucus (None) /hpf 10/17/23 10/17/23 10/17/23 Range/Units 14:45 14:45 15:25 WBC (3.8-10.6) k/uL RBC (4.30-5.90) m/uL Hgb (13.0-17.5) gm/dL Hct (39.0-53.0) % MCV (80.0-100.0) fL MCH (25.0-35.0) pg MCHC (31.0-37.0) g/dL RDW (11.5-15.5) % Plt Count (150-450) k/uL MPV Neutrophils % % Lymphocytes % % Monocytes % % Eosinophils % % Basophils % % Neutrophils # (1.3-7.7) k/uL Lymphocytes # (1.0-4.8) k/uL Monocytes # (0-1.0) k/uL Eosinophils # (0-0.7) k/uL Basophils # (0-0.2) k/uL Macrocytosis PT (10.0-12.5) sec INR (<1.2) APTT (22.0-30.0) sec Sodium (137-145) mmol/L Potassium (3.5-5.1) mmol/L Chloride (98-107) mmol/L Carbon Dioxide (22-30) mmol/L Anion Gap mmol/L BUN (9-20) mg/dL Creatinine (0.66-1.25) mg/dL Est GFR (CKD-EPI)AfAm (>60 ml/min/1.73 sqM) Est GFR (CKD-EPI)NonAf (>60 ml/min/1.73 sqM) Glucose (74-99) mg/dL Lactic Ac Sepsis Rflx Y Plasma Lactic Acid Jack 6.1 H* (0.7-2.0) mmol/L Calcium (8.4-10.2) mg/dL Magnesium (1.6-2.3) mg/dL Total Bilirubin (0.2-1.3) mg/dL AST (17-59) U/L ALT (4-49) U/L Alkaline Phosphatase (38-126) U/L Troponin I 0.213 H* (0.000-0.034) ng/mL Total Protein (6.3-8.2) g/dL Albumin (3.5-5.0) g/dL Urine Color Urine Appearance (Clear) Urine pH (5.0-8.0) Ur Specific [place] (1.001-1.035) Urine Protein (Negative) Urine Glucose (UA) (Negative) Urine Ketones (Negative) Urine Blood (Negative) Urine Nitrite (Negative) Urine Bilirubin (Negative) Urine Urobilinogen (<2.0) mg/dL Ur Leukocyte Esterase (Negative) Urine RBC (0-5) /hpf Urine WBC (0-5) /hpf Ur Squamous Epith Cells (0-4) /hpf Hyaline Casts (0-2) /lpf Urine Mucus (None) /hpf 10/17/23 Range/Units 16:50 WBC (3.8-10.6) k/uL RBC (4.30-5.90) m/uL Hgb (13.0-17.5) gm/dL Hct (39.0-53.0) % MCV (80.0-100.0) fL MCH (25.0-35.0) pg MCHC (31.0-37.0) g/dL RDW (11.5-15.5) % Plt Count (150-450) k/uL MPV Neutrophils % % Lymphocytes % % Monocytes % % Eosinophils % % Basophils % % Neutrophils # (1.3-7.7) k/uL Lymphocytes # (1.0-4.8) k/uL Monocytes # (0-1.0) k/uL Eosinophils # (0-0.7) k/uL Basophils # (0-0.2) k/uL Macrocytosis PT (10.0-12.5) sec INR (<1.2) APTT (22.0-30.0) sec Sodium (137-145) mmol/L Potassium (3.5-5.1) mmol/L Chloride (98-107) mmol/L Carbon Dioxide (22-30) mmol/L Anion Gap mmol/L BUN (9-20) mg/dL Creatinine (0.66-1.25) mg/dL Est GFR (CKD-EPI)AfAm (>60 ml/min/1.73 sqM) Est GFR (CKD-EPI)NonAf (>60 ml/min/1.73 sqM) Glucose (74-99) mg/dL Lactic Ac Sepsis Rflx Plasma Lactic Acid Jack (0.7-2.0) mmol/L Calcium (8.4-10.2) mg/dL Magnesium (1.6-2.3) mg/dL Total Bilirubin (0.2-1.3) mg/dL AST (17-59) U/L ALT (4-49) U/L Alkaline Phosphatase (38-126) U/L Troponin I (0.000-0.034) ng/mL Total Protein (6.3-8.2) g/dL Albumin (3.5-5.0) g/dL Urine Color Yellow Urine Appearance Cloudy (Clear) Urine pH 6.0 (5.0-8.0) Ur Specific [place] 1.023 (1.001-1.035) Urine Protein 1+ H (Negative) Urine Glucose (UA) Negative (Negative) Urine Ketones Trace H (Negative) Urine Blood Negative (Negative) Urine Nitrite Negative (Negative) Urine Bilirubin 1+ H (Negative) Urine Urobilinogen 3.0 (<2.0) mg/dL Ur Leukocyte Esterase Negative (Negative) Urine RBC 1 (0-5) /hpf Urine WBC 5 (0-5) /hpf Ur Squamous Epith Cells <1 (0-4) /hpf Hyaline Casts 29 H (0-2) /lpf Urine Mucus Many H (None) /hpf Disposition Clinical Impression: Acute renal failure, Elevated troponin, Dehydration, Lactic acidosis, Generalized weakness Disposition: ADMITTED IP TO THIS HOSP Referrals: Misael Hopkins MD [Primary Care Provider] - 1-2 days Time of Disposition: 19:02
[2023-10-17] MEDS: SODIUM CHLORIDE 0.9% 500 ML 500 ML IV STA (14:46)
[2023-10-17] MEDS: SODIUM CHLORIDE 0.9% 1,000 ML IV STA (14:46)
[2023-10-17 15:10] LABS: INR 1.1 (<1.2); Partial Thromboplastin Time 22.4 sec (22.0-30.0); Prothrombin Time 11.9 sec (10.0-12.5)
[2023-10-17 15:18] LABS: ALT 33 U/L (4-49); AST 49 U/L (17-59); African American GFR (CKD) 48 (>60 ml/min/1.73 sqM); Albumin 3.9 g/dL (3.5-5.0); Alkaline Phosphatase 144 U/L (38-126); Anion Gap 17 mmol/L; Blood Urea Nitrogen 49 mg/dL (9-20); Calcium 9.5 mg/dL (8.4-10.2); Carbon Dioxide 26 mmol/L (22-30); Chloride 110 mmol/L (98-107); Glucose 169 mg/dL (74-99); Magnesium 2.4 mg/dL (1.6-2.3); Non-African American GFR(CKD) 42 (>60 ml/min/1.73 sqM); Potassium 4.1 mmol/L (3.5-5.1); Sodium 153 mmol/L (137-145); Total Bilirubin 1.5 mg/dL (0.2-1.3); Total Protein 6.7 g/dL (6.3-8.2)
--- NOTE | 2023-10-17 15:18 | XR ---
EXAMINATION TYPE: XR chest 2V DATE OF EXAM: 10/17/2023 3:06 PM CLINICAL INDICATION:Male, 67 years old with history of Weakness; COMPARISON: Chest radiographs from 09/20/2023 TECHNIQUE: XR chest 2V Frontal and lateral views of the chest. FINDINGS: Lungs/Pleura: There is flattening of the diaphragm with increased lucency of the lungs. No evidence o f pneumothorax, pleural effusion or focal consolidation. Pulmonary vascularity: Unremarkable. Heart/mediastinum: Cardiomediastinal silhouette is unremarkable. Musculoskeletal: No acute osseous pathology. IMPRESSION: 1. No acute cardiopulmonary disease process. 2. COPD changes.
[2023-10-17 15:50] LABS: Basophils % (A) 0 %; Eosinophils % (A) 0 %; Lymphocytes # (A) 0.7 k/uL (1.0-4.8); Lymphocytes % (A) 6 %; MCH 30.8 pg (25.0-35.0); MCHC 31.6 g/dL (31.0-37.0); MCV 97.6 fL (80.0-100.0); Macrocytosis Slight; Mean Platelet Volume 10.1; Monocytes # (A) 0.4 k/uL (0-1.0); Monocytes % (A) 3 %; Neutrophils # (A) 12.1 k/uL (1.3-7.7); Neutrophils % (A) 91 %; Platelet Count 403 k/uL (150-450); RBC 5.03 m/uL (4.30-5.90); WBC 13.3 k/uL (3.8-10.6)
[2023-10-17] MEDS: ONDANSETRON 4 MG/2 ML VIAL IVP STA (15:51)
[2023-10-17 15:55] LABS: HGB 15.5 gm/dL (13.0-17.5)
[2023-10-17 17:11] LABS: Appearance,Urine Cloudy (Clear); Bilirubin,Urine 1+ (Negative); Blood,Urine Negative (Negative); Color,Urine Yellow; Glucose,Urine (UA) Negative (Negative); Hyaline Casts,Urine 29 /lpf (0-2); Ketones,Urine Trace (Negative); Leukocyte Esterase,Urine Negative (Negative); Mucus,Urine Many /hpf; Nitrite,Urine Negative (Negative); Protein,Urine 1+ (Negative); RBC,Urine 1 /hpf (0-5); Specific Gravity,Urine 1.023 (1.001-1.035); Squamous Epithelial Cell,Urine <1 /hpf (0-4); WBC,Urine 5 /hpf (0-5)
[2023-10-17] MEDS: METOCLOPRAMIDE 5 MG/ML 2 ML VIAL IVP STA (17:53)
[2023-10-17] MEDS: ASPIRIN 325 MG TAB PO STA (18:20)
[2023-10-17] MEDS: SODIUM CHLORIDE 0.9% 1,000 ML IV ONE (20:02)
[2023-10-17] MEDS: ONDANSETRON ODT 4 MG TAB PO PRN (22:14)
[2023-10-17] MEDS: HYDROcodone/APAP 5-325MG 1 EACH TAB PO PRN (22:17)
[2023-10-18] MEDS: busPIRone HCl 5 MG TAB PO SCH (00:05)
[2023-10-18] MEDS: PANTOPRAZOLE 40 MG/10 ML VIAL IVP SCH (00:25)
[2023-10-18] MEDS: CALCIUM CARBONATE 500 MG CHEWABLE PO PRN (00:28)
[2023-10-18] MEDS: ALBUTEROL NEBULIZED 2.5 MG/3 ML INHALATION PRN (07:50)
[2023-10-18] MEDS: SERTRALINE 25 MG TAB PO SCH (08:34)
[2023-10-18] MEDS: PANTOPRAZOLE 40 MG TABLET PO SCH (08:58)
[2023-10-18] MEDS ORDERED: ASPIRIN 325 MG TAB PO SCH (09:00)
--- NOTE | 2023-10-18 10:16 | P.HPIM ---
History of Present Illness Patient is a pleasant 67 years old male with past medical history of multiple medical problems He has previous history of intractable vomiting and dehydration and has been admitted to the hospital several times for the same complaint. Last time discharge was a week ago. He was evaluated by surgery team and found to have esophageal dysmotility disorder. Recent laparoscopic repair of paraesophageal hiatal hernia with mesh on 09/25/2023. At that time evaluated by GI and surgery team. Admitted to the hospital several times for the same complaint upper GI swallow evaluation showing mild gastroesophageal reflux and possible small residual paraesophageal hernia Patient was discharged with recommendation to continue with liquid diet Patient states for a week he has been having vomiting and little discomfort in the left upper quadrant He is fully awake and oriented Denies chest pain urinary complaint or headache or dizziness He is mildly tachycardic, afebrile vitals are stable WBC mildly elevated at 13,000, looks concentrated sample, sodium 153, creatinine of 1.6 with baseline 0.5-1 Liver enzymes are unremarkable. Urine analysis is showing concentrated sample Elevated lactic acid at 6 came back to reference range at 1.7 Mildly elevated troponin with no chest pain and EKG showing sinus tachycardia [address]-T changes Chest x-ray showing COPD changes with no acute process. Patient received 1.5 L of normal saline boluses and admitted. Review of Systems Review of systems CONSTITUTIONAL: No fever, no malaise, no fatigue. HEENT: No recent visual problems or hearing problems. Denied any sore throat. CARDIOVASCULAR: No orthopnea, PND, no palpitations, no syncope. PULMONARY: No shortness of breath, no cough, no hemoptysis. GASTROINTESTINAL: No diarrhea, no nausea, no vomiting, no abdominal pain. Normoactive bowel sounds. NEUROLOGICAL: No headaches, no weakness, no numbness. HEMATOLOGICAL: Denies any bleeding or petechiae. GENITOURINARY: Denies any burning micturition, frequency, or urgency. MUSCULOSKELETAL/RHEUMATOLOGICAL: Denies any joint pain, swelling, or any muscle pain. ENDOCRINE: Denies any polyuria or polydipsia. Past Medical History Past Medical History: Asthma, Coronary Artery Disease (CAD), Chest Pain / Angina, CVA/TIA, GERD/Reflux, Hyperlipidemia, Hypertension, Pneumonia, Rheumatoid Arthritis (RA) Additional Past Medical History / Comment(s): MIGRAINES, HEART MURMUR, hx HIATAL HERNIA, ANEMIA, one dr told him he had a stroke at one time-no effects, varicose veins, history of incarcerated per esophageal hernia, status post robotic-assisted paraesophageal hernia repair and Frederick fundoplication on 04/12/2022. History of Any Multi-Drug Resistant Organisms: None Reported Past Surgical History: Cholecystectomy, Heart Catheterization, Hernia Repair, Orthopedic Surgery Additional Past Surgical History / Comment(s): Lt achilles tendon,RT SHOULDER surgery, RT ACHILLES TENDON reattached, HEMORRHOIDECTOMY, 13 FATTY TUMORS removed. left hand index finger surgery after injury, EGD WITH DILATION, paraesophageal hernia repair with Frederick fundoplication on 04/12/2022. Past Anesthesia/Blood Transfusion Reactions: No Reported Reaction Additional Past Anesthesia/Blood Transfusion Reaction / Comment(s): no hx blood transfusion Past Psychological History: Anxiety, Depression Smoking Status: Current some day smoker Past Alcohol Use History: None Reported Past Drug Use History: Marijuana - Past Family History Mother Family Medical History: Cancer Father Additional Family Medical History / Comment(s): thinks aneurysm Medications and Allergies Home Medications Medication Instructions Recorded Confirmed Type Nitroglycerin Sl Tabs [Nitrostat] 0.4 mg SUBLINGUAL Q5M PRN 08/08/23 10/17/23 History Sertraline [Zoloft] 25 mg PO DAILY 08/08/23 10/17/23 History busPIRone HCL [Buspar] 7.5 mg PO BID 08/08/23 10/17/23 History Albuterol Inhaler [Ventolin Hfa 2 puff INHALATION RT-Q4H PRN 09/25/23 10/17/23 History Inhaler] HYDROcodone/APAP 5-325MG [[place] 1 tab PO Q6HR PRN 2 Days #8 tab 09/26/23 10/17/23 Rx 5-325] Omeprazole 20 mg PO BID 10/06/23 10/17/23 History Ondansetron Odt [Zofran Odt] 4 mg PO Q8HR PRN #9 tab 10/10/23 10/17/23 Rx Allergies Allergy/AdvReac Type Severity Reaction Status Date / Time No Known Allergies Allergy Verified 10/17/23 16:15 Physical Exam Vitals: Vital Signs Temp Pulse Pulse Resp BP BP Pulse Ox 10/18/23 08:01 95 10/18/23 08:00 98 F 105 H 16 129/93 97 10/18/23 07:51 101 H 10/18/23 03:11 95 20 109/74 97 10/18/23 03:00 93 17 109/73 96 10/18/23 00:30 109 H 20 105/70 95 10/17/23 22:17 115 H 23 113/85 96 10/17/23 20:05 110 H 18 110/86 96 10/17/23 18:31 106 H 22 134/108 95 10/17/23 15:52 101 H 18 105/91 96 10/17/23 14:48 111 H 18 94/51 96 10/17/23 13:46 97.5 F L 130 H 16 83/63 99 Intake and Output 10/17/23 10/18/23 10/18/23 22:59 06:59 14:59 Other: Voiding Method Urinal --GENERAL: The patient is alert and oriented x3, mildly confused, not in any acute distress. Thin built HEENT: Pupils are round and equally reacting to light. EOMI. No scleral icterus. No conjunctival pallor. Normocephalic, atraumatic. No pharyngeal erythema. No thyromegaly. CARDIOVASCULAR: S1 and S2 present. No murmurs, rubs, or gallops. PULMONARY: Chest is clear to auscultation, no wheezing , no crackles. -ABDOMEN: Soft, nondistended, normoactive bowel sounds. No palpable organomegaly. Scaphoid abdomen mainly in the left upper quadrant with mild tenderness. 3 healed all wounds from previous laparoscopic procedure MUSCULOSKELETAL: No joint swelling or deformity. EXTREMITIES: No cyanosis, clubbing, or pedal edema. NEUROLOGICAL: Gross neurological examination did not reveal any focal deficits. SKIN: No rashes. no petechiae. Results CBC & Chem 7: 10/17/23 14:45 10/17/23 14:45 Labs: Abnormal Lab Results - Last 24 Hours (Table) 10/17/23 10/17/23 10/17/23 Range/Units 14:45 14:45 14:45 WBC 13.3 H (3.8-10.6) k/uL RDW 16.0 H (11.5-15.5) % Neutrophils # 12.1 H (1.3-7.7) k/uL Lymphocytes # 0.7 L (1.0-4.8) k/uL Sodium 153 H (137-145) mmol/L Chloride 110 H (98-107) mmol/L BUN 49 H (9-20) mg/dL Creatinine 1.69 H (0.66-1.25) mg/dL Glucose 169 H (74-99) mg/dL Plasma Lactic Acid Jack 6.1 H* (0.7-2.0) mmol/L Magnesium 2.4 H (1.6-2.3) mg/dL Total Bilirubin 1.5 H (0.2-1.3) mg/dL Alkaline Phosphatase 144 H (38-126) U/L Troponin I (0.000-0.034) ng/mL Urine Protein (Negative) Urine Ketones (Negative) Urine Bilirubin (Negative) Hyaline Casts (0-2) /lpf Urine Mucus (None) /hpf 10/17/23 10/17/23 10/17/23 Range/Units 14:45 16:50 18:20 WBC (3.8-10.6) k/uL RDW (11.5-15.5) % Neutrophils # (1.3-7.7) k/uL Lymphocytes # (1.0-4.8) k/uL Sodium (137-145) mmol/L Chloride (98-107) mmol/L BUN (9-20) mg/dL Creatinine (0.66-1.25) mg/dL Glucose (74-99) mg/dL Plasma Lactic Acid Jack 2.2 H* (0.7-2.0) mmol/L Magnesium (1.6-2.3) mg/dL Total Bilirubin (0.2-1.3) mg/dL Alkaline Phosphatase (38-126) U/L Troponin I 0.213 H* (0.000-0.034) ng/mL Urine Protein 1+ H (Negative) Urine Ketones Trace H (Negative) Urine Bilirubin 1+ H (Negative) Hyaline Casts 29 H (0-2) /lpf Urine Mucus Many H (None) /hpf 10/17/23 Range/Units 21:26 WBC (3.8-10.6) k/uL RDW (11.5-15.5) % Neutrophils # (1.3-7.7) k/uL Lymphocytes # (1.0-4.8) k/uL Sodium (137-145) mmol/L Chloride (98-107) mmol/L BUN (9-20) mg/dL Creatinine (0.66-1.25) mg/dL Glucose (74-99) mg/dL Plasma Lactic Acid Jack 2.2 H* (0.7-2.0) mmol/L Magnesium (1.6-2.3) mg/dL Total Bilirubin (0.2-1.3) mg/dL Alkaline Phosphatase (38-126) U/L Troponin I (0.000-0.034) ng/mL Urine Protein (Negative) Urine Ketones (Negative) Urine Bilirubin (Negative) Hyaline Casts (0-2) /lpf Urine Mucus (None) /hpf Assessment and Plan Assessment: Recurrent nausea vomiting suspected to esophageal dysmotility disorder with possible elements of esophagitis/GERD and possible small residual paraesophageal hiatal hernia Recurrent nausea vomiting most likely secondary to above Diabetes mellitus Hypertension Hyperlipidemia History of stroke History of coronary artery disease s/p cardiac cath Rheumatoid arthritis Previous cholecystectomy a History of GERD, paraesophageal hiatal hernia repair with Frederick fundoplication on 09/2023. His surgeon is Dr. Willis Montes Plan: Continue with IV hydration Nutrition consult Swallow evaluation Liquid diet Continue with treatment for his nausea vomiting Surgery team consult Labs and medication were reviewed.. Continue same treatment. Continue with symptomatic treatment. Resume home medication. Monitor lytes and vitals. DVT and GI prophylaxis. Further recommendations depends on the clinical course of the patient DVT prophylaxis: Subcutaneous heparin GI Prophylaxis: Pepcid PT/OT: Pending Prognosis is guarded
--- NOTE | 2023-10-18 10:41 | P.CRDCN ---
History of Present Illness History of present illness: HISTORY OF PRESENT ILLNESS: This is a 67-year-old male with a past medical history significant for valvular heart disease, hypertension,, anxiety, depression, and former nicotine dependen ce. Patient follows in the office with Dr. Mckeon. We have been asked to see the patient in consultation for elevated troponins. Patient examined at the bedside in the emergency room. Patient was brought to the hospital via EMS for failure to thrive. According to the patient's family the patient has not been eating or drinking. Patient's BMI is low at 15.2. The patient currently denies any chest pain or pressure. He denies any shortness of breath. Vital signs this morning are stable. Blood pressure 129/93. DIAGNOSTICS: - EKG reveals sinus tachycardia with signs of LVH. - Chest xray negative for acute process. COPD changes. - Laboratory data: WBC 13.3. Hemoglobin 15.5. Platelet count 403. Sodium 153. Potassium 4.1. BUN 49. Creatinine 1.69. Lactic acid 2.2. Magnesium 2.4. Troponin 0.213. - Current home cardiac medications include none - Most recent echocardiogram obtained in September 2023 revealed ejection fraction 60 to 65% -Previous echocardiogram performed in June 2020 revealed normal EF, mild to moderate MR, and mild to moderate TR - Cardiac catheterization history: August 2018 revealing normal coronary arteries REVIEW OF SYSTEMS: At the time of my exam: CONSTITUTIONAL: Denies fever or chills. HEENT: Denies blurred vision, vision changes, or eye pain. Denies hemoptysis CARDIOVASCULAR: Denies chest pain. Denies orthopnea. Denies PND. Denies palpitations RESPIRATORY: Denies shortness of breath. GASTROINTESTINAL: Denies abdominal pain. Denies nausea or vomiting. HEMATOLOGIC: Denies bleeding disorders. GENITOURINARY: Denies any blood in urine. SKIN: Denies pruitis. Denies rash. PHYSICAL EXAM: VITAL SIGNS: Reviewed. GENERAL: Well-developed in no acute distress. HEENT: Head is normocephalic. Pupils are equal, round. Sclerae anicteric. Mucous membranes of the mouth are moist. Neck supple. No JVD or thyromegaly LUNGS: Respirations even and unlabored. Lungs essentially clear to auscultation bilaterally. HEART: Regular rate and rhythm. S1 and S2 heard. Systolic murmur noted. ABDOMEN: Soft. Nondistended. Nontender. EXTREMITIES: Normal range of motion. No clubbing or cyanosis. Peripheral pulses intact. No lower extremity edema NEUROLOGIC: Awake and alert. Oriented x 3. ASSESSMENT: Failure to thrive Hypernatremia, 153 on admission Mild leukocytosis, 13.3 Elevated lactic acid Acute kidney injury, 1.69 on admission Chronically elevated troponins, of unclear significance, no evidence of acute coronary syndrome Normal coronary arteries, per cardiac catheterization 2018 Mild to moderate MR and TR Hypertension Anxiety Depression Former nicotine dependence Previous history of alcohol abuse Current marijuana use PLAN: An acute coronary but has been ruled out Continue IV fluids. Continue to monitor sodium. Consult dietary for evaluation Patient is currently stable from a cardiac standpoint with no further inpatient recommendations We will sign off. Please reconsult if needed. Nurse practitioner note has been reviewed by physician. Signing provider agrees with the documented findings, assessment, and plan of care documented by DENTAL HYGIENE INSTRUCTOR as a scribe. Past Medical History Past Medical History: Asthma, Coronary Artery Disease (CAD), Chest Pain / Angina, CVA/TIA, GERD/Reflux, Hyperlipidemia, Hypertension, Pneumonia, Rheumatoid Arthritis (RA) Additional Past Medical History / Comment(s): MIGRAINES, HEART MURMUR, hx HIATAL HERNIA, ANEMIA, one dr told him he had a stroke at one time-no effects, varicose veins, history of incarcerated per esophageal hernia, status post robotic-assisted paraesophageal hernia repair and Frederick fundoplication on 04/12/2022. History of Any Multi-Drug Resistant Organisms: None Reported Past Surgical History: Cholecystectomy, Heart Catheterization, Hernia Repair, Orthopedic Surgery Additional Past Surgical History / Comment(s): Lt achilles tendon,RT SHOULDER surgery, RT ACHILLES TENDON reattached, HEMORRHOIDECTOMY, 13 FATTY TUMORS removed. left hand index finger surgery after injury, EGD WITH DILATION, paraesophageal hernia repair with Frederick fundoplication on 04/12/2022. Past Anesthesia/Blood Transfusion Reactions: No Reported Reaction Additional Past Anesthesia/Blood Transfusion Reaction / Comment(s): no hx blood transfusion Past Psychological History: Anxiety, Depression Smoking Status: Current some day smoker Past Alcohol Use History: None Reported Past Drug Use History: Marijuana - Past Family History Mother Family Medical History: Cancer Father Additional Family Medical History / Comment(s): thinks aneurysm Medications and Allergies Home Medications Medication Instructions Recorded Confirmed Type Nitroglycerin Sl Tabs [Nitrostat] 0.4 mg SUBLINGUAL Q5M PRN 08/08/23 10/17/23 History Sertraline [Zoloft] 25 mg PO DAILY 08/08/23 10/17/23 History busPIRone HCL [Buspar] 7.5 mg PO BID 08/08/23 10/17/23 History Albuterol Inhaler [Ventolin Hfa 2 puff INHALATION RT-Q4H PRN 09/25/23 10/17/23 History Inhaler] HYDROcodone/APAP 5-325MG [[place] 1 tab PO Q6HR PRN 2 Days #8 tab 09/26/23 10/17/23 Rx 5-325] Omeprazole 20 mg PO BID 10/06/23 10/17/23 History Ondansetron Odt [Zofran Odt] 4 mg PO Q8HR PRN #9 tab 10/10/23 10/17/23 Rx Allergies Allergy/AdvReac Type Severity Reaction Status Date / Time No Known Allergies Allergy Verified 10/17/23 16:15 Physical Exam Vitals: Vital Signs Temp Pulse Resp BP Pulse Ox 10/18/23 07:51 101 H 10/18/23 03:11 95 20 109/74 97 10/18/23 03:00 93 17 109/73 96 10/18/23 00:30 109 H 20 105/70 95 10/17/23 22:17 115 H 23 113/85 96 10/17/23 20:05 110 H 18 110/86 96 10/17/23 18:31 106 H 22 134/108 95 10/17/23 15:52 101 H 18 105/91 96 10/17/23 14:48 111 H 18 94/51 96 10/17/23 13:46 97.5 F L 130 H 16 83/63 99 Results 10/17/23 14:45 10/17/23 14:45 Cardiac Enzymes 10/17/23 10/17/23 Range/Units 14:45 14:45 AST 49 (17-59) U/L Troponin I 0.213 H* (0.000-0.034) ng/mL Coagulation 10/17/23 Range/Units 14:45 PT 11.9 (10.0-12.5) sec APTT 22.4 (22.0-30.0) sec CBC 10/17/23 Range/Units 14:45 WBC 13.3 H (3.8-10.6) k/uL RBC 5.03 (4.30-5.90) m/uL Hgb 15.5 D (13.0-17.5) gm/dL Hct 49.0 (39.0-53.0) % Plt Count 403 (150-450) k/uL Comprehensive Metabolic Panel 10/17/23 Range/Units 14:45 Sodium 153 H (137-145) mmol/L Potassium 4.1 (3.5-5.1) mmol/L Chloride 110 H (98-107) mmol/L Carbon Dioxide 26 (22-30) mmol/L BUN 49 H (9-20) mg/dL Creatinine 1.69 H (0.66-1.25) mg/dL Glucose 169 H (74-99) mg/dL Calcium 9.5 (8.4-10.2) mg/dL AST 49 (17-59) U/L ALT 33 (4-49) U/L Alkaline Phosphatase 144 H (38-126) U/L Total Protein 6.7 (6.3-8.2) g/dL Albumin 3.9 (3.5-5.0) g/dL Current Medications Generic Name Dose Route Start Last Admin Trade Name Freq PRN Reason Stop Dose Admin Hydrocodone Bitart/Acetaminophen 1 each 10/17/23 20:42 10/17/23 22:17 Hydrocodone/Apap 5-325mg 1 Each Tab PO 1 each Q6HR PRN Administration Pain Albuterol Sulfate 2.5 mg 10/17/23 20:42 10/18/23 07:50 Albuterol Nebulized 2.5 Mg/3 Ml INHALATION 2.5 mg RT-Q4H PRN Administration Shortness Of Breath Buspirone HCl 7.5 mg 10/17/23 21:00 10/18/23 00:05 Buspirone Hcl 5 Mg Tab PO Not Given BID GIRISH Calcium Carbonate/Glycine 500 mg 10/18/23 00:04 10/18/23 00:28 Calcium Carbonate 500 Mg Chewable PO 500 mg TID PRN Administration Heartburn Ondansetron HCl 4 mg 10/17/23 20:42 10/17/23 22:14 Ondansetron Odt 4 Mg Tab PO 4 mg Q8HR PRN Administration Nausea Pantoprazole Sodium 40 mg 10/18/23 07:30 Pantoprazole 40 Mg Tablet PO [id number]-[id number] GIRISH Pantoprazole Sodium 40 mg 10/18/23 00:04 10/18/23 00:25 Pantoprazole 40 Mg/10 Ml Vial IVP 40 mg DAILY GIRISH Administration Sertraline HCl 25 mg 10/18/23 09:00 Sertraline 25 Mg Tab PO DAILY GIRISH 10/17/23 14:45 10/17/23 14:45
[2023-10-18] MEDS: DEXTROSE 5% IN WATER 1,000 ML IV ONE ×2 (11:16→15:14)
[2023-10-18 13:26] LABS: Anisocytosis Slight; Basophils # (A) 0.1 k/uL (0-0.2); Basophils % (A) 0 %; Eosinophils % (A) 0 %; HCT 38.7 % (39.0-53.0); Hypochromasia Slight; Lymphocytes # (A) 0.8 k/uL (1.0-4.8); Lymphocytes % (A) 5 %; MCH 32.5 pg (25.0-35.0); MCHC 32.3 g/dL (31.0-37.0); MCV 100.6 fL (80.0-100.0); Macrocytosis Slight; Mean Platelet Volume 10.8; Monocytes # (A) 0.5 k/uL (0-1.0); Monocytes % (A) 3 %; Neutrophils # (A) 14.2 k/uL (1.3-7.7); Neutrophils % (A) 91 %; Platelet Count 233 k/uL (150-450); RBC 3.85 m/uL (4.30-5.90); WBC 15.7 k/uL (3.8-10.6)
[2023-10-18 13:31] LABS: African American GFR (CKD) 70 (>60 ml/min/1.73 sqM); Anion Gap 9 mmol/L; Blood Urea Nitrogen 45 mg/dL (9-20); Calcium 8.3 mg/dL (8.4-10.2); Carbon Dioxide 26 mmol/L (22-30); Chloride 117 mmol/L (98-107); Glucose 174 mg/dL (74-99); Non-African American GFR(CKD) 61 (>60 ml/min/1.73 sqM); Sodium 152 mmol/L (137-145)
[2023-10-18 13:43] LABS: HGB 12.5 gm/dL (13.0-17.5)
[2023-10-18 13:46] LABS: Potassium 2.6 mmol/L (3.5-5.1)
[2023-10-18] MEDS ORDERED: Magnesium Replacement Protocol 1 EACH MISC MISCELLANE PRN (14:33)
[2023-10-18] MEDS ORDERED: Potassium Replacement Protocol 1 EACH MISC MISCELLANE PRN (14:33)
[2023-10-18] MEDS: POTASSIUM CHLORIDE ER 20 MEQ TAB.ER PO SCH (15:15)
--- NOTE | 2023-10-18 15:47 | P.GSCN ---
History of Present Illness Consult date: 10/18/23 History of present illness: CHIEF COMPLAINT: Failure to thrive HISTORY OF PRESENT ILLNESS: This is a 67-year-old male who was brought in to the emergency room via EMS due to failure to thrive. ER chart reports that family states the patient is not eating and drinking. Patient has history of recurrent hiatal hernia and is status post hiatal hernia repair with mesh on August 10, [address] Pavon. Patient with esophageal dysmotility. Patient reports his nausea and vomiting is better than what it had been prior to surgery. Patient reports that if he does eat slow he does better and able to keep the food down. He denies any abdominal pain. PAST MEDICAL HISTORY: Asthma, Coronary Artery Disease (CAD), Chest Pain / Angina, CVA/TIA, GERD/Reflux, Hyperlipidemia, Hypertension, Pneumonia, Rheumatoid Arthritis (RA), MIGRAINES, HEART MURMUR, hx HIATAL HERNIA, ANEMIA, one dr told him he had a stroke at one time-no effects, varicose veins, history of incarcerated per esophageal hernia, PAST SURGICAL HISTORY: Cholecystectomy, Heart Catheterization, Hernia Repair, Orthopedic Surgery, status post robotic-assisted paraesophageal hernia repair and Frederick fundoplication on 04/12/2022, status post hiatal hernia repair with mesh August 10, 2023 MEDICATIONS: See below ALLERGIES: See below SOCIAL HISTORY: No illicit drug use. REVIEW OF SYSTEMS: CONSTITUTIONAL: Denies fever or chills. HEENT: Denies blurred vision, vision changes, or eye pain. Denies hemoptysis CARDIOVASCULAR: Denies chest pain or pressure. RESPIRATORY: No shortness of breath. GASTROINTESTINAL: See HPI for pertinent findings HEMATOLOGIC: Denies bleeding disorders. GENITOURINARY: Denies any blood in urine or increased urinary frequency. SKIN: Denies pruitis. Denies rash. PHYSICAL EXAM: VITAL SIGNS: Reviewed GENERAL: Well-developed in no acute distress. HEENT: No sclera icterus. Extraocular movements grossly intact. Moist buccal mucosa. Head is atraumatic, normocephalic. No nasal drainage. ABDOMEN: Soft. Nondistended. Nontender NEUROLOGIC: Alert and oriented. Cranial nerves II through XII grossly intact. LABORATORY DATA: WBC 13.3 HGB 15.5 plt 403 Na 153 k 4.1 Cr 1.69 Lactic acid 2.2 to 1.7 Total bili 1.5 AST 49 ALT 33 alk phos 144 Mildly elevated troponin IMAGING: ASSESSMENT: 1. Failure to thrive 2. Nausea and vomiting 3. Status post laparoscopic repair of paraesophageal hiatal hernia with mesh on 09/25/2023 4. Esophageal dysmotility PLAN: -Encouraged patient to eat small frequent meals. Consult resin shaver for education. -Start 72-hour calorie count -If patient is not meeting nutritional needs, would recommend PEG tube placement and this can be scheduled for Monday -Continue supportive care Physician Manager Configuration note has been reviewed by physician. Signing provider agrees with the documented findings, assessment, and plan of care. Past Medical History Past Medical History: Asthma, Coronary Artery Disease (CAD), Chest Pain / Angina, CVA/TIA, GERD/Reflux, Hyperlipidemia, Hypertension, Pneumonia, Rheumatoid Arthritis (RA) Additional Past Medical History / Comment(s): MIGRAINES, HEART MURMUR, hx HIATAL HERNIA, ANEMIA, one dr told him he had a stroke at one time-no effects, varicose veins, history of incarcerated per esophageal hernia, status post robotic-assisted paraesophageal hernia repair and Frederick fundoplication on 04/12/2022. History of Any Multi-Drug Resistant Organisms: None Reported Past Surgical History: Cholecystectomy, Heart Catheterization, Hernia Repair, Orthopedic Surgery Additional Past Surgical History / Comment(s): Lt achilles tendon,RT SHOULDER surgery, RT ACHILLES TENDON reattached, HEMORRHOIDECTOMY, 13 FATTY TUMORS removed. left hand index finger surgery after injury, EGD WITH DILATION, paraesophageal hernia repair with Frederick fundoplication on 04/12/2022. Past Anesthesia/Blood Transfusion Reactions: No Reported Reaction Additional Past Anesthesia/Blood Transfusion Reaction / Comm: no hx blood transfusion Past Psychological History: Anxiety, Depression Smoking Status: Current some day smoker Past Alcohol Use History: None Reported Past Drug Use History: Marijuana - Past Family History Mother Family Medical History: Cancer Father Additional Family Medical History / Comment(s): thinks aneurysm Medications and Allergies Home Medications Medication Instructions Recorded Confirmed Type Nitroglycerin Sl Tabs [Nitrostat] 0.4 mg SUBLINGUAL Q5M PRN 08/08/23 10/17/23 History Sertraline [Zoloft] 25 mg PO DAILY 08/08/23 10/17/23 History busPIRone HCL [Buspar] 7.5 mg PO BID 08/08/23 10/17/23 History Albuterol Inhaler [Ventolin Hfa 2 puff INHALATION RT-Q4H PRN 09/25/23 10/17/23 History Inhaler] HYDROcodone/APAP 5-325MG [[place] 1 tab PO Q6HR PRN 2 Days #8 tab 09/26/23 10/17/23 Rx 5-325] Omeprazole 20 mg PO BID 10/06/23 10/17/23 History Ondansetron Odt [Zofran Odt] 4 mg PO Q8HR PRN #9 tab 10/10/23 10/17/23 Rx Allergies Allergy/AdvReac Type Severity Reaction Status Date / Time No Known Allergies Allergy Verified 10/17/23 16:15 Surgical - Exam Vital Signs Temp Pulse Resp BP Pulse Ox 97.5 F L 130 H 16 83/63 99 10/17/23 13:46 10/17/23 13:46 10/17/23 13:46 10/17/23 13:46 10/17/23 13:46 Results - Labs 10/18/23 12:32 10/18/23 12:32 Abnormal Lab Results - Last 24 Hours (Table) 10/17/23 10/17/23 10/17/23 Range/Units 14:45 14:45 14:45 WBC 13.3 H (3.8-10.6) k/uL RDW 16.0 H (11.5-15.5) % Neutrophils # 12.1 H (1.3-7.7) k/uL Lymphocytes # 0.7 L (1.0-4.8) k/uL Sodium 153 H (137-145) mmol/L Chloride 110 H (98-107) mmol/L BUN 49 H (9-20) mg/dL Creatinine 1.69 H (0.66-1.25) mg/dL Glucose 169 H (74-99) mg/dL Plasma Lactic Acid Jack 6.1 H* (0.7-2.0) mmol/L Magnesium 2.4 H (1.6-2.3) mg/dL Total Bilirubin 1.5 H (0.2-1.3) mg/dL Alkaline Phosphatase 144 H (38-126) U/L Troponin I (0.000-0.034) ng/mL Urine Protein (Negative) Urine Ketones (Negative) Urine Bilirubin (Negative) Hyaline Casts (0-2) /lpf Urine Mucus (None) /hpf 10/17/23 10/17/23 10/17/23 Range/Units 14:45 16:50 18:20 WBC (3.8-10.6) k/uL RDW (11.5-15.5) % Neutrophils # (1.3-7.7) k/uL Lymphocytes # (1.0-4.8) k/uL Sodium (137-145) mmol/L Chloride (98-107) mmol/L BUN (9-20) mg/dL Creatinine (0.66-1.25) mg/dL Glucose (74-99) mg/dL Plasma Lactic Acid Jack 2.2 H* (0.7-2.0) mmol/L Magnesium (1.6-2.3) mg/dL Total Bilirubin (0.2-1.3) mg/dL Alkaline Phosphatase (38-126) U/L Troponin I 0.213 H* (0.000-0.034) ng/mL Urine Protein 1+ H (Negative) Urine Ketones Trace H (Negative) Urine Bilirubin 1+ H (Negative) Hyaline Casts 29 H (0-2) /lpf Urine Mucus Many H (None) /hpf 10/17/23 Range/Units 21:26 WBC (3.8-10.6) k/uL RDW (11.5-15.5) % Neutrophils # (1.3-7.7) k/uL Lymphocytes # (1.0-4.8) k/uL Sodium (137-145) mmol/L Chloride (98-107) mmol/L BUN (9-20) mg/dL Creatinine (0.66-1.25) mg/dL Glucose (74-99) mg/dL Plasma Lactic Acid Jack 2.2 H* (0.7-2.0) mmol/L Magnesium (1.6-2.3) mg/dL Total Bilirubin (0.2-1.3) mg/dL Alkaline Phosphatase (38-126) U/L Troponin I (0.000-0.034) ng/mL Urine Protein (Negative) Urine Ketones (Negative) Urine Bilirubin (Negative) Hyaline Casts (0-2) /lpf Urine Mucus (None) /hpf Diabetes panel 10/17/23 Range/Units 14:45 Sodium 153 H (137-145) mmol/L Potassium 4.1 (3.5-5.1) mmol/L Chloride 110 H (98-107) mmol/L Carbon Dioxide 26 (22-30) mmol/L BUN 49 H (9-20) mg/dL Creatinine 1.69 H (0.66-1.25) mg/dL Glucose 169 H (74-99) mg/dL Calcium 9.5 (8.4-10.2) mg/dL AST 49 (17-59) U/L ALT 33 (4-49) U/L Alkaline Phosphatase 144 H (38-126) U/L Total Protein 6.7 (6.3-8.2) g/dL Albumin 3.9 (3.5-5.0) g/dL Calcium panel 10/17/23 Range/Units 14:45 Calcium 9.5 (8.4-10.2) mg/dL Albumin 3.9 (3.5-5.0) g/dL Pituitary panel 10/17/23 Range/Units 14:45 Sodium 153 H (137-145) mmol/L Potassium 4.1 (3.5-5.1) mmol/L Chloride 110 H (98-107) mmol/L Carbon Dioxide 26 (22-30) mmol/L BUN 49 H (9-20) mg/dL Creatinine 1.69 H (0.66-1.25) mg/dL Glucose 169 H (74-99) mg/dL Calcium 9.5 (8.4-10.2) mg/dL Adrenal panel 10/17/23 Range/Units 14:45 Sodium 153 H (137-145) mmol/L Potassium 4.1 (3.5-5.1) mmol/L Chloride 110 H (98-107) mmol/L Carbon Dioxide 26 (22-30) mmol/L BUN 49 H (9-20) mg/dL Creatinine 1.69 H (0.66-1.25) mg/dL Glucose 169 H (74-99) mg/dL Calcium 9.5 (8.4-10.2) mg/dL Total Bilirubin 1.5 H (0.2-1.3) mg/dL AST 49 (17-59) U/L ALT 33 (4-49) U/L Alkaline Phosphatase 144 H (38-126) U/L Total Protein 6.7 (6.3-8.2) g/dL Albumin 3.9 (3.5-5.0) g/dL
[2023-10-18] MEDS: POTASSIUM BICARBONATE/CIT AC 20 MEQ TABLET.EFF PO SCH (20:28)
[2023-10-18] MEDS: ONDANSETRON 4 MG/2 ML VIAL IVP PRN (22:07)
[2023-10-18] MEDS: SCOPOLAMINE 1 MG/72 HR PATCH TRANSDERM STA (23:59)
[2023-10-19] MEDS: POTASSIUM CHLORIDE 10 MEQ in WATER FOR INJECTION 1 100ML.BAG IVPB SCH (02:08)
[2023-10-19 08:24] LABS: African American GFR (CKD) 89 (>60 ml/min/1.73 sqM); Anion Gap 7 mmol/L; Blood Urea Nitrogen 37 mg/dL (9-20); Calcium 8.5 mg/dL (8.4-10.2); Carbon Dioxide 27 mmol/L (22-30); Chloride 118 mmol/L (98-107); Glucose 109 mg/dL (74-99); Magnesium 2.1 mg/dL (1.6-2.3); Non-African American GFR(CKD) 77 (>60 ml/min/1.73 sqM); Potassium 3.5 mmol/L (3.5-5.1); Sodium 152 mmol/L (137-145)
[2023-10-19 08:26] LABS: Basophils % (A) 0 %; Eosinophils % (A) 0 %; HCT 41.7 % (39.0-53.0); HGB 13.3 gm/dL (13.0-17.5); Lymphocytes # (A) 0.9 k/uL (1.0-4.8); Lymphocytes % (A) 8 %; MCH 31.1 pg (25.0-35.0); MCV 97.2 fL (80.0-100.0); Macrocytosis Slight; Mean Platelet Volume 10.6; Monocytes # (A) 0.5 k/uL (0-1.0); Monocytes % (A) 4 %; Neutrophils # (A) 9.9 k/uL (1.3-7.7); Neutrophils % (A) 86 %; Platelet Count 246 k/uL (150-450); WBC 11.5 k/uL (3.8-10.6)
[2023-10-19] MEDS: METOCLOPRAMIDE 5 MG/ML 2 ML VIAL IVP PRN (12:25)
--- NOTE | 2023-10-19 12:59 | P.PN ---
Subjective Progress Note Date: 10/19/23 CHIEF COMPLAINT: Failure to thrive HISTORY OF PRESENT ILLNESS: Patient was history of esophageal dysmotility. Patient still having issues with nausea and vomiting. He is spits up most of what he takes in. He denies any abdominal pain. Afebrile. WBC 15.7 down to 11.5 Hgb 15.3 platelets 246 sodium is 152 potassium is 3.5 creatinine 1.01 PHYSICAL EXAM: VITAL SIGNS: Reviewed. GENERAL: no acute distress. ABDOMEN: Soft. Nondistended. Nontender. NEUROLOGIC: Alert and oriented. Cranial nerves II through XII grossly intact. ASSESSMENT: 1. Esophageal dysmotility disorder 2. Failure to thrive 3. Nausea and vomiting 4. Status post laparoscopic repair of paraesophageal hiatal hernia with mesh on 09/25/2023 PLAN: -Patient educated to eat small frequent meals and to sit upright for at least 30 minutes to an hour after eating -Dietitian consulted for education on diet -Patient to undergo a 72-hour calorie count to calculate patient's oral intake. If patient is not meeting his nutritional needs would recommend peg tube placement and this can be scheduled for Monday -Consult speech therapy for swallow eval Physician Photography Manager note has been reviewed by physician. Signing provider agrees with the documented findings, assessment, and plan of care. Objective - Vital Signs Vital signs: Vital Signs Temp 98.1 F 10/19/23 12:20 Pulse 92 10/19/23 12:20 Resp 16 10/19/23 12:20 BP 135/91 10/19/23 12:20 Pulse Ox 99 10/19/23 12:20 FiO2 Intake & Output 10/18/23 10/19/23 10/19/23 18:59 06:59 18:59 Intake Total 240 1265 Output Total 400 Balance -160 1265 Weight 45.359 kg 48.4 kg Intake: Intake, IV Titration 1265 Amount Dextrose 5% in Water 1, 865 000 ml @ 75 mls/hr IV . [id number] ONE Rx#:[id number] Potassium Chloride 10 meq 400 In Water For Injection 1 100ml.bag @ 100 mls/hr IVPB Q1HR GIRISH Rx#: [id number] Oral 240 Output: Urine 400 Other: Voiding Method Urinal Bedside Commode Bedside Commode Urinal Urinal Diaper Diaper # Voids 2 # Bowel Movements 1 - Labs CBC & Chem 7: 10/19/23 07:31 10/19/23 07:31 Labs: Abnormal Lab Results - Last 24 Hours (Table) 10/18/23 10/18/23 10/18/23 Range/Units 12:32 12:32 18:10 WBC 15.7 H (3.8-10.6) k/uL RBC 3.85 L (4.30-5.90) m/uL Hgb 12.5 L D (13.0-17.5) gm/dL Hct 38.7 L (39.0-53.0) % MCV 100.6 H (80.0-100.0) fL RDW 16.0 H (11.5-15.5) % Neutrophils # 14.2 H (1.3-7.7) k/uL Lymphocytes # 0.8 L (1.0-4.8) k/uL Sodium 152 H (137-145) mmol/L Potassium 2.6 L* 3.0 L (3.5-5.1) mmol/L Chloride 117 H (98-107) mmol/L BUN 45 H (9-20) mg/dL Glucose 174 H (74-99) mg/dL Calcium 8.3 L (8.4-10.2) mg/dL 10/19/23 10/19/23 10/19/23 Range/Units 01:07 07:31 07:31 WBC 11.5 H (3.8-10.6) k/uL RBC (4.30-5.90) m/uL Hgb (13.0-17.5) gm/dL Hct (39.0-53.0) % MCV (80.0-100.0) fL RDW 16.0 H (11.5-15.5) % Neutrophils # 9.9 H (1.3-7.7) k/uL Lymphocytes # 0.9 L (1.0-4.8) k/uL Sodium 152 H (137-145) mmol/L Potassium 3.2 L (3.5-5.1) mmol/L Chloride 118 H (98-107) mmol/L BUN 37 H (9-20) mg/dL Glucose 109 H (74-99) mg/dL Calcium (8.4-10.2) mg/dL
[2023-10-19] MEDS: DEXTROSE 5% IN WATER 1,000 ML IV SCH (14:14)
--- NOTE | 2023-10-19 23:15 | P.PN ---
Subjective Patient is a pleasant 67 years old male with past medical history of multiple medical problems He has previous history of intractable vomiting and dehydration and has been admitted to the hospital several times for the same complaint. Last time d marleni was a week ago. He was evaluated by surgery team and found to have esophageal dysmotility disorder. Recent laparoscopic repair of paraesophageal hiatal hernia with mesh on 09/25/2023. At that time evaluated by GI and surgery team. Admitted to the hospital several times for the same complaint upper GI swallow evaluation showing mild gastroesophageal reflux and possible small residual paraesophageal hernia Patient was discharged with recommendation to continue with liquid diet Patient states for a week he has been having vomiting and little discomfort in the left upper quadrant He is fully awake and oriented Denies chest pain urinary complaint or headache or dizziness He is mildly tachycardic, afebrile vitals are stable WBC mildly elevated at 13,000, looks concentrated sample, sodium 153, creatinine of 1.6 with baseline 0.5-1 Liver enzymes are unremarkable. Urine analysis is showing concentrated sample Elevated lactic acid at 6 came back to reference range at 1.7 Mildly elevated troponin with no chest pain and EKG showing sinus tachycardia [address]-T changes Chest x-ray showing COPD changes with no acute process. Patient received 1.5 L of normal saline boluses and admitted. 10/19/2023 Patient is sitting at the bed H, family female member at bedside Patient drinking juice and water, he looks tired, he is awake alert and slow to respond but appropriate He remains dehydrated although he has improvement of his labs with creatinine Down to 1.6 down to 1.0. Still hypernatremic with sodium 152 Yesterday we ordered D5W, he could not get high-dose because he lost his IV line. Patient was hard to stick. Today midline is ordered Surgery team on the case with no need for surgical intervention currently It looks like he is esophageal dysmotility disorder is remain culprit, also patient has recent history of paraesophageal hernia repair about a month ago Patient currently passed the swallow evaluation but is on liquid diet currently Review of systems CONSTITUTIONAL: No fever, no malaise, no fatigue. GASTROINTESTINAL: No diarrhea, no nausea, no vomiting, no abdominal pain. Normoactive bowel sounds. NEUROLOGICAL: No headaches, no weakness, no numbness. HEMATOLOGICAL: Denies any bleeding or petechiae. GENITOURINARY: Denies any burning micturition, frequency, or urgency. MUSCULOSKELETAL/RHEUMATOLOGICAL: Denies any joint pain, swelling, or any muscle pain. ENDOCRINE: Denies any polyuria or polydipsia. Active Medications Generic Name Dose Route Start Last Admin Trade Name Freq PRN Reason Stop Dose Admin Hydrocodone Bitart/Acetaminophen 1 each 10/17/23 20:42 10/17/23 22:17 Hydrocodone/Apap 5-325mg 1 Each Tab PO 1 each Q6HR PRN Administration Pain Albuterol Sulfate 2.5 mg 10/17/23 20:42 10/18/23 07:50 Albuterol Nebulized 2.5 Mg/3 Ml INHALATION 2.5 mg RT-Q4H PRN Administration Shortness Of Breath Buspirone HCl 7.5 mg 10/17/23 21:00 10/19/23 20:15 Buspirone Hcl 5 Mg Tab PO 7.5 mg BID GIRISH Administration Calcium Carbonate/Glycine 500 mg 10/18/23 00:04 10/18/23 00:28 Calcium Carbonate 500 Mg Chewable PO 500 mg TID PRN Administration Heartburn Dextrose/Water 1,000 mls @ 75 mls/hr 10/19/23 14:15 10/19/23 14:14 Dextrose 5%-Water Iv Soln IV 75 mls/hr .[id number] GIRISH Administration Metoclopramide HCl 5 mg 10/19/23 11:45 10/19/23 20:15 Metoclopramide 5 Mg/Ml 2 Ml Vial IVP 5 mg Q6HR PRN Administration Nausea And Vomiting Miscellaneous Information 1 each 10/18/23 14:33 Potassium Replacement Protocol 1 Each Misc MISCELLANE DAILY PRN Per Protocol Protocol Miscellaneous Information 1 each 10/18/23 14:33 Magnesium Replacement Protocol 1 Each Misc MISCELLANE DAILY PRN Per Protocol Protocol Ondansetron HCl 4 mg 10/17/23 20:42 10/17/23 22:14 Ondansetron Odt 4 Mg Tab PO 4 mg Q8HR PRN Administration Nausea Ondansetron HCl 4 mg 10/18/23 21:42 10/19/23 08:14 Ondansetron 4 Mg/2 Ml Vial IVP 4 mg Q6HR PRN Administration Nausea And Vomiting Pantoprazole Sodium 40 mg 10/18/23 00:04 10/19/23 08:14 Pantoprazole 40 Mg/10 Ml Vial IVP 40 mg DAILY GIRISH Administration Sertraline HCl 25 mg 10/18/23 09:00 10/19/23 09:31 Sertraline 25 Mg Tab PO 25 mg DAILY GIRISH Administration Objective - Vital Signs Vital signs: Vital Signs Temp 97.3 F L 10/19/23 20:30 Pulse 73 10/19/23 20:30 Resp 16 10/19/23 20:30 BP 150/82 10/19/23 20:04 Pulse Ox 92 L 10/19/23 20:30 FiO2 Intake & Output 10/19/23 10/19/23 10/20/23 06:59 18:59 06:59 Intake Total 1265 Balance 1265 Weight 48.4 kg Intake: Intake, IV Titration 1265 Amount Dextrose 5% in Water 1, 865 000 ml @ 75 mls/hr IV . [id number] ONE Rx#:[id number] Potassium Chloride 10 meq 400 In Water For Injection 1 100ml.bag @ 100 mls/hr IVPB Q1HR GIRISH Rx#: [id number] Other: Voiding Method Bedside Commode Bedside Commode Urinal Urinal Diaper Diaper # Voids 2 1 # Bowel Movements 1 - Exam -GENERAL: The patient is alert and oriented, mildly confused , not in any acute distress. Thin built HEENT: Pupils are round and equally reacting to light. EOMI. No scleral icterus. No conjunctival pallor. Normocephalic, atraumatic. No pharyngeal erythema. No thyromegaly. CARDIOVASCULAR: S1 and S2 present. No murmurs, rubs, or gallops. PULMONARY: Chest is clear to auscultation, no wheezing , no crackles. ABDOMEN: Soft, nontender, nondistended, normoactive bowel sounds. No palpable organomegaly. MUSCULOSKELETAL: No joint swelling or deformity. EXTREMITIES: No cyanosis, clubbing, or pedal edema. NEUROLOGICAL: Gross neurological examination did not reveal any focal deficits. SKIN: No rashes. no petechiae. - Labs CBC & Chem 7: 10/19/23 07:31 10/19/23 07:31 Labs: Abnormal Lab Results - Last 24 Hours (Table) 10/19/23 10/19/23 10/19/23 Range/Units 01:07 07:31 07:31 WBC 11.5 H (3.8-10.6) k/uL RDW 16.0 H (11.5-15.5) % Neutrophils # 9.9 H (1.3-7.7) k/uL Lymphocytes # 0.9 L (1.0-4.8) k/uL Sodium 152 H (137-145) mmol/L Potassium 3.2 L (3.5-5.1) mmol/L Chloride 118 H (98-107) mmol/L BUN 37 H (9-20) mg/dL Glucose 109 H (74-99) mg/dL Assessment and Plan Assessment: Recurrent nausea vomiting suspected to esophageal dysmotility disorder with possible elements of esophagitis/GERD and possible small residual paraesophageal hiatal hernia Recurrent nausea vomiting most likely secondary to above Moderate calorie protein malnutrition Diabetes mellitus Hypertension Hyperlipidemia History of stroke History of coronary artery disease s/p cardiac cath Rheumatoid arthritis Previous cholecystectomy a History of GERD, paraesophageal hiatal hernia repair with Frederick fundoplication on 09/2023. His surgeon is Dr. Willis Montes Plan: Continue with IV hydration Nutrition consult Swallow evaluation was reviewed Liquid diet Continue with treatment for his nausea vomiting Surgery team consult Labs and medication were reviewed.. Continue same treatment. Continue with symptomatic treatment. Resume home medication. Monitor lytes and vitals. DVT and GI prophylaxis. Further recommendations depends on the clinical course of the patient DVT prophylaxis: Subcutaneous heparin GI Prophylaxis: Pepcid PT/OT: Pending Prognosis is guarded
[2023-10-20 08:30] LABS: Basophils # (A) 0.03 X 10*3/uL (0.00-0.10); Basophils % (A) 0.4 %; Eosinophils # (A) 0.08 X 10*3/uL (0.04-0.35); HCT 37.3 % (39.6-50.0); HGB 11.5 g/dL (13.0-17.0); Lymphocytes # (A) 0.76 X 10*3/uL (0.90-5.00); Lymphocytes % (A) 9.8 %; MCH 30.7 pg (27.0-32.0); MCHC 30.8 g/dL (32.0-37.0); MCV 99.7 FL (80.0-97.0); Mean Platelet Volume 12.3 FL (9.5-12.2); Monocytes # (A) 0.25 X 10*3/uL (0.20-1.00); Monocytes % (A) 3.2 %; NRBC Per 100 WBC 0.02 X 10*3/uL (0.00-0.01); Neutrophils % (A) 82.4 %; Platelet Count 169 X 10*3/uL (140-440); RBC 3.74 X 10*6/uL (4.40-5.60); RDW 17.7 % (11.5-14.5); WBC 7.77 X 10*3/uL (4.50-10.00)
[2023-10-20 08:52] LABS: BUN/Creat Ratio 27.33 Ratio (12.00-20.00); Blood Urea Nitrogen 24.6 mg/dL (9.0-27.0); Calcium 8.5 mg/dL (8.7-10.3); Carbon Dioxide 26.2 mmol/L (21.6-31.8); Chloride 111 mmol/L (96-109); Glucose 150 mg/dL (70-110); Magnesium 1.9 mg/dL (1.5-2.4); Potassium 3.5 mmol/L (3.5-5.5); Sodium 149 mmol/L (135-145)
--- NOTE | 2023-10-20 13:55 | P.PN ---
Subjective Progress Note Date: 10/20/23 CHIEF COMPLAINT: Failure to thrive HISTORY OF PRESENT ILLNESS: Patient was history of esophageal dysmotility. Patient has poor oral intake. Patient seen in the AM. He had reported no spitting up since last night. Afebrile. WBC normalized from 11.5-7.7 sodium is 149 potassium 3.5 magnesium 1.9 PHYSICAL EXAM: VITAL SIGNS: Reviewed. GENERAL: no acute distress. ABDOMEN: Soft. Nondistended. Nontender. NEUROLOGIC: Alert and oriented. Cranial nerves II through XII grossly intact. ASSESSMENT: 1. Esophageal dysmotility disorder 2. Failure to thrive 3. Nausea and vomiting 4. Status post laparoscopic repair of paraesophageal hiatal hernia with mesh on 09/25/2023 PLAN: -Patient is tentatively scheduled for PEG tube placement on Monday with Dr. Pavon depending on calorie count results -Continue full liquid diet -Hypernatremia management per medicine service Physician Patient Assistant note has been reviewed by physician. Signing provider agrees with the documented findings, assessment, and plan of care. Objective - Vital Signs Vital signs: Vital Signs Temp 98 F 10/20/23 12:28 Pulse 81 10/20/23 12:28 Resp 16 10/20/23 12:28 BP 129/83 10/20/23 12:28 Pulse Ox 93 L 10/20/23 12:28 FiO2 Intake & Output 10/19/23 10/20/23 10/20/23 18:59 06:59 18:59 Output Total 400 350 Balance -400 -350 Weight 48.4 kg 77 kg 77 kg Output: Urine 400 350 Other: Voiding Method Bedside Commode Bedside Commode Bedside Commode Urinal Urinal Urinal Diaper Diaper Diaper # Voids 1 - Labs CBC & Chem 7: 10/20/23 05:07 10/20/23 05:07 Labs: Abnormal Lab Results - Last 24 Hours (Table) 10/20/23 10/20/23 Range/Units 05:07 05:07 RBC 3.74 L (4.40-5.60) X 10*6/uL Hgb 11.5 L (13.0-17.0) g/dL Hct 37.3 L (39.6-50.0) % MCV 99.7 H (80.0-97.0) FL MCHC 30.8 L (32.0-37.0) g/dL RDW 17.7 H (11.5-14.5) % MPV 12.3 H (9.5-12.2) FL Immature Gran # 0.25 H (0.00-0.04) X 10*3/uL Lymphocytes # 0.76 L (0.90-5.00) X 10*3/uL NRBC/100 WBC Diff 0.02 H (0.00-0.01) X 10*3/uL Sodium 149 H (135-145) mmol/L Chloride 111 H (96-109) mmol/L BUN/Creatinine Ratio 27.33 H (12.00-20.00) Ratio Glucose 150 H (70-110) mg/dL Calcium 8.5 L (8.7-10.3) mg/dL
[2023-10-21 10:04] LABS: BUN/Creat Ratio 20.44 Ratio (12.00-20.00); Blood Urea Nitrogen 18.4 mg/dL (9.0-27.0); Calcium 8.7 mg/dL (8.7-10.3); Carbon Dioxide 27.7 mmol/L (21.6-31.8); Chloride 103 mmol/L (96-109); Glucose 173 mg/dL (70-110); Potassium 3.4 mmol/L (3.5-5.5); Sodium 144 mmol/L (135-145)
--- NOTE | 2023-10-21 11:08 | P.PN ---
Progress Note - Text Progress Note Date: 10/21/23 CHIEF COMPLAINT: Failure to thrive HISTORY OF PRESENT ILLNESS: NAEO PHYSICAL EXAM: VITAL SIGNS: Reviewed. GENERAL: no acute distress. ABDOMEN: Soft. Nondistended. Nontender. NEUROLOGIC: Alert and oriented. Cranial nerves II through XII grossly intact. ASSESSMENT: 1. Esophageal dysmotility disorder 2. Failure to thrive 3. Nausea and vomiting 4. Status post laparoscopic repair of paraesophageal hiatal hernia with mesh on 09/25/2023 PLAN: -Patient is tentatively scheduled for PEG tube placement on Monday with Dr. Pavon depending on calorie count results -Continue full liquid diet -Hypernatremia management per medicine service
[2023-10-21] MEDS: POTASSIUM CHLORIDE ER 20 MEQ TAB.ER PO SCH (11:26)
--- NOTE | 2023-10-21 23:47 | P.PN ---
Subjective Patient is a pleasant 67 years old male with past medical history of multiple medical problems He has previous history of intractable vomiting and dehydration and has been admitted to the hospital several times for the same complaint. Last time d marleni was a week ago. He was evaluated by surgery team and found to have esophageal dysmotility disorder. Recent laparoscopic repair of paraesophageal hiatal hernia with mesh on 09/25/2023. At that time evaluated by GI and surgery team. Admitted to the hospital several times for the same complaint upper GI swallow evaluation showing mild gastroesophageal reflux and possible small residual paraesophageal hernia Patient was discharged with recommendation to continue with liquid diet Patient states for a week he has been having vomiting and little discomfort in the left upper quadrant He is fully awake and oriented Denies chest pain urinary complaint or headache or dizziness He is mildly tachycardic, afebrile vitals are stable WBC mildly elevated at 13,000, looks concentrated sample, sodium 153, creatinine of 1.6 with baseline 0.5-1 Liver enzymes are unremarkable. Urine analysis is showing concentrated sample Elevated lactic acid at 6 came back to reference range at 1.7 Mildly elevated troponin with no chest pain and EKG showing sinus tachycardia [address]-T changes Chest x-ray showing COPD changes with no acute process. Patient received 1.5 L of normal saline boluses and admitted. 10/19/2023 Patient is sitting at the bed H, family female member at bedside Patient drinking juice and water, he looks tired, he is awake alert and slow to respond but appropriate He remains dehydrated although he has improvement of his labs with creatinine Down to 1.6 down to 1.0. Still hypernatremic with sodium 152 Yesterday we ordered D5W, he could not get high-dose because he lost his IV line. Patient was hard to stick. Today midline is ordered Surgery team on the case with no need for surgical intervention currently It looks like he is esophageal dysmotility disorder is remain culprit, also patient has recent history of paraesophageal hernia repair about a month ago Patient currently passed the swallow evaluation but is on liquid diet currently 10/20/2023 Patient is awake He states he feels better He is only mildly confused and lethargic Sodium is improving but still elevated, will continue with D5W at 75 mL/h Patient is trying to eat liquid diet He denies abdominal pain or chest pain Objective - Vital Signs Vital signs: Vital Signs Temp 98 F 10/20/23 12:28 Pulse 81 10/20/23 12:28 Resp 16 10/20/23 12:28 BP 129/83 10/20/23 12:28 Pulse Ox 93 L 10/20/23 12:28 FiO2 Intake & Output 10/19/23 10/20/23 10/20/23 18:59 06:59 18:59 Output Total 400 550 Balance -400 -550 Weight 48.4 kg 77 kg 77 kg Output: Urine 400 550 Other: Voiding Method Bedside Commode Bedside Commode Bedside Commode Urinal Urinal Urinal Diaper Diaper Diaper # Voids 1 - Exam -GENERAL: The patient is alert and oriented, mildly confused , not in any acute distress. Thin built HEENT: Pupils are round and equally reacting to light. EOMI. No scleral icterus. No conjunctival pallor. Normocephalic, atraumatic. No pharyngeal erythema. No thyromegaly. CARDIOVASCULAR: S1 and S2 present. No murmurs, rubs, or gallops. PULMONARY: Chest is clear to auscultation, no wheezing , no crackles. ABDOMEN: Soft, nontender, nondistended, normoactive bowel sounds. No palpable organomegaly. MUSCULOSKELETAL: No joint swelling or deformity. EXTREMITIES: No cyanosis, clubbing, or pedal edema. NEUROLOGICAL: Gross neurological examination did not reveal any focal deficits. SKIN: No rashes. no petechiae. - Labs CBC & Chem 7: 10/20/23 05:07 10/21/23 06:37 Labs: Abnormal Lab Results - Last 24 Hours (Table) 10/20/23 10/20/23 Range/Units 05:07 05:07 RBC 3.74 L (4.40-5.60) X 10*6/uL Hgb 11.5 L (13.0-17.0) g/dL Hct 37.3 L (39.6-50.0) % MCV 99.7 H (80.0-97.0) FL MCHC 30.8 L (32.0-37.0) g/dL RDW 17.7 H (11.5-14.5) % MPV 12.3 H (9.5-12.2) FL Immature Gran # 0.25 H (0.00-0.04) X 10*3/uL Lymphocytes # 0.76 L (0.90-5.00) X 10*3/uL NRBC/100 WBC Diff 0.02 H (0.00-0.01) X 10*3/uL Sodium 149 H (135-145) mmol/L Chloride 111 H (96-109) mmol/L BUN/Creatinine Ratio 27.33 H (12.00-20.00) Ratio Glucose 150 H (70-110) mg/dL Calcium 8.5 L (8.7-10.3) mg/dL Assessment and Plan Assessment: Recurrent nausea vomiting suspected to esophageal dysmotility disorder with possible elements of esophagitis/GERD and possible small residual paraesophageal hiatal hernia Recurrent nausea vomiting most likely secondary to above Moderate calorie protein malnutrition Diabetes mellitus Hypertension Hyperlipidemia History of stroke History of coronary artery disease s/p cardiac cath Rheumatoid arthritis Previous cholecystectomy a History of GERD, paraesophageal hiatal hernia repair with Frederick fundoplication on 09/2023. His surgeon is Dr. Willis Montes Plan: Continue with IV hydration Nutrition consult Swallow evaluation was reviewed Liquid diet Continue with treatment for his nausea vomiting Surgery team consult Labs and medication were reviewed.. Continue same treatment. Continue with symptomatic treatment. Resume home medication. Monitor lytes and vitals. DVT and GI prophylaxis. Further recommendations depends on the clinical course of the patient DVT prophylaxis: Subcutaneous heparin GI Prophylaxis: Pepcid PT/OT: Pending Prognosis is guarded
--- NOTE | 2023-10-21 23:50 | P.PN ---
Subjective Patient is a pleasant 67 years old male with past medical history of multiple medical problems He has previous history of intractable vomiting and dehydration and has been admitted to the hospital several times for the same complaint. Last time d marleni was a week ago. He was evaluated by surgery team and found to have esophageal dysmotility disorder. Recent laparoscopic repair of paraesophageal hiatal hernia with mesh on 09/25/2023. At that time evaluated by GI and surgery team. Admitted to the hospital several times for the same complaint upper GI swallow evaluation showing mild gastroesophageal reflux and possible small residual paraesophageal hernia Patient was discharged with recommendation to continue with liquid diet Patient states for a week he has been having vomiting and little discomfort in the left upper quadrant He is fully awake and oriented Denies chest pain urinary complaint or headache or dizziness He is mildly tachycardic, afebrile vitals are stable WBC mildly elevated at 13,000, looks concentrated sample, sodium 153, creatinine of 1.6 with baseline 0.5-1 Liver enzymes are unremarkable. Urine analysis is showing concentrated sample Elevated lactic acid at 6 came back to reference range at 1.7 Mildly elevated troponin with no chest pain and EKG showing sinus tachycardia [address]-T changes Chest x-ray showing COPD changes with no acute process. Patient received 1.5 L of normal saline boluses and admitted. 10/19/2023 Patient is sitting at the bed H, family female member at bedside Patient drinking juice and water, he looks tired, he is awake alert and slow to respond but appropriate He remains dehydrated although he has improvement of his labs with creatinine Down to 1.6 down to 1.0. Still hypernatremic with sodium 152 Yesterday we ordered D5W, he could not get high-dose because he lost his IV line. Patient was hard to stick. Today midline is ordered Surgery team on the case with no need for surgical intervention currently It looks like he is esophageal dysmotility disorder is remain culprit, also patient has recent history of paraesophageal hernia repair about a month ago Patient currently passed the swallow evaluation but is on liquid diet currently 10/20/2023 Patient is awake He states he feels better He is only mildly confused and lethargic Sodium is improving but still elevated, will continue with D5W at 75 mL/h Patient is trying to eat liquid diet He denies abdominal pain or chest pain 10/21/2023 Patient awake but lethargic He eats little bit Patient encouraged to eat more, this could be affected by hypernatremia which is improving His sodium is 144, we lowered his D5W down to 50 mL/h Surgery team on the case Objective - Vital Signs Vital signs: Vital Signs Temp 97.5 F L 10/21/23 20:00 Pulse 67 10/21/23 20:00 Resp 16 10/21/23 20:00 BP 129/68 10/21/23 20:00 Pulse Ox 100 10/21/23 20:00 FiO2 Intake & Output 10/21/23 10/21/23 10/22/23 06:59 18:59 06:59 Intake Total 30 200 Output Total 670 450 Balance -640 -250 Weight 77 kg Intake: Oral 30 200 Output: Urine 650 450 Stool 0 Emesis 20 Other: Voiding Method Bedside Commode Bedside Commode Urinal Urinal Diaper Diaper # Voids 1 # Bowel Movements 1 - Exam -GENERAL: The patient is alert and oriented, mildly confused , not in any acute distress. Thin built HEENT: Pupils are round and equally reacting to light. EOMI. No scleral icterus. No conjunctival pallor. Normocephalic, atraumatic. No pharyngeal erythema. No thyromegaly. CARDIOVASCULAR: S1 and S2 present. No murmurs, rubs, or gallops. PULMONARY: Chest is clear to auscultation, no wheezing , no crackles. ABDOMEN: Soft, nontender, nondistended, normoactive bowel sounds. No palpable organomegaly. MUSCULOSKELETAL: No joint swelling or deformity. EXTREMITIES: No cyanosis, clubbing, or pedal edema. NEUROLOGICAL: Gross neurological examination did not reveal any focal deficits. SKIN: No rashes. no petechiae. - Labs CBC & Chem 7: 10/20/23 05:07 10/21/23 06:37 Labs: Abnormal Lab Results - Last 24 Hours (Table) 10/21/23 Range/Units 06:37 Potassium 3.4 L (3.5-5.5) mmol/L Anion Gap 13.30 H (4.00-12.00) mmol/L BUN/Creatinine Ratio 20.44 H (12.00-20.00) Ratio Glucose 173 H (70-110) mg/dL Assessment and Plan Assessment: Recurrent nausea vomiting suspected to esophageal dysmotility disorder with possible elements of esophagitis/GERD and possible small residual paraesophageal hiatal hernia Recurrent nausea vomiting most likely secondary to above Moderate calorie protein malnutrition Diabetes mellitus Hypertension Hyperlipidemia History of stroke History of coronary artery disease s/p cardiac cath Rheumatoid arthritis Previous cholecystectomy a History of GERD, paraesophageal hiatal hernia repair with Frederick fundoplication on 09/2023. His surgeon is Dr. Willis Montes Plan: Continue with IV hydration, D5W at 50 mL/h Nutrition consult Swallow evaluation was reviewed Liquid diet Continue with treatment for his nausea vomiting Surgery team consult Labs and medication were reviewed.. Continue same treatment. Continue with symptomatic treatment. Resume home medication. Monitor lytes and vitals. DVT and GI prophylaxis. Further recommendations depends on the clinical course of the patient DVT prophylaxis: Subcutaneous heparin GI Prophylaxis: Pepcid PT/OT: Pending Prognosis is guarded
[2023-10-22 10:10] LABS: African American GFR (CKD) >90 (>60 ml/min/1.73 sqM); Anion Gap 7 mmol/L; Blood Urea Nitrogen 17 mg/dL (9-20); Calcium 8.2 mg/dL (8.4-10.2); Carbon Dioxide 26 mmol/L (22-30); Chloride 105 mmol/L (98-107); Glucose 140 mg/dL (74-99); Magnesium 1.5 mg/dL (1.6-2.3); Non-African American GFR(CKD) >90 (>60 ml/min/1.73 sqM); Sodium 138 mmol/L (137-145)
[2023-10-22 10:15] LABS: Potassium 3.8 mmol/L (3.5-5.1)
[2023-10-22 10:49] LABS: Anisocytosis Slight; Basophils % (A) 0 %; Eosinophils % (A) 1 %; HCT 38.8 % (39.0-53.0); Lymphocytes # (A) 0.5 k/uL (1.0-4.8); Lymphocytes % (A) 8 %; MCH 32.1 pg (25.0-35.0); MCHC 33.5 g/dL (31.0-37.0); MCV 95.6 fL (80.0-100.0); Mean Platelet Volume 11.8; Monocytes # (A) 0.3 k/uL (0-1.0); Monocytes % (A) 5 %; Neutrophils # (A) 4.9 k/uL (1.3-7.7); Neutrophils % (A) 85 %; Platelet Count 145 k/uL (150-450); RBC 4.06 m/uL (4.30-5.90); WBC 5.8 k/uL (3.8-10.6)
[2023-10-22] MEDS: DEXTROSE 5%-0.45% NACL 1,000 ML IV SCH (12:47)
[2023-10-22] MEDS: MAGNESIUM SULFATE-D5W PMX 1 GM in DEXTROSE/WATER 1 100ML.BAG IVPB SCH (12:47)
[2023-10-22] MEDS: POTASSIUM CHLORIDE 10 MEQ in WATER FOR INJECTION 1 100ML.BAG IVPB SCH (12:49)
--- NOTE | 2023-10-22 12:58 | P.PN ---
Subjective Progress Note Date: 10/22/23 Principal diagnosis: Malnutrition Patient without new complaints. Denies pain. Still not eating much at all. Calorie count is low. Objective - Vital Signs Vital signs: Vital Signs Temp 98.5 F 10/22/23 12:10 Pulse 65 10/22/23 12:10 Resp 17 10/22/23 12:10 BP 128/87 10/22/23 12:10 Pulse Ox 98 10/22/23 12:10 FiO2 Intake & Output 10/21/23 10/22/23 10/22/23 18:59 06:59 18:59 Intake Total 200 600 Output Total 450 600 Balance -250 0 Weight 77 kg 77.1 kg Intake: Intake, IV Titration 600 Amount Dextrose 5% in Water 1, 600 000 ml @ 50 mls/hr IV . Q20H [facility] Rx#:[id number] Oral 200 Output: Urine 450 600 Other: Voiding Method Bedside Commode Bedside Commode Urinal Urinal Urinal Diaper Diaper # Voids 1 # Bowel Movements 1 - Exam Abdomen: Soft, nontender, nondistended - Labs CBC & Chem 7: 10/22/23 09:31 10/22/23 09:31 Labs: Abnormal Lab Results - Last 24 Hours (Table) 10/22/23 10/22/23 Range/Units 09:31 09:31 RBC 4.06 L (4.30-5.90) m/uL Hct 38.8 L (39.0-53.0) % RDW 16.0 H (11.5-15.5) % Plt Count 145 L (150-450) k/uL Lymphocytes # 0.5 L (1.0-4.8) k/uL Creatinine 0.63 L (0.66-1.25) mg/dL Glucose 140 H (74-99) mg/dL Calcium 8.2 L (8.4-10.2) mg/dL Magnesium 1.5 L (1.6-2.3) mg/dL Assessment and Plan (1) Intractable nausea and vomiting Narrative/Plan: Continue encouraging oral intake. Monitor complaints of dysphagia. Monitor nausea and vomiting. Tentatively scheduled for EGD with PEG tube placement tomorrow. Current Visit: No Status: Acute Code(s): R11.2 - NAUSEA WITH VOMITING, UNSPECIFIED SNOMED Code(s): 858053047
--- NOTE | 2023-10-23 05:27 | P.PN ---
Subjective Patient is a pleasant 67 years old male with past medical history of multiple medical problems He has previous history of intractable vomiting and dehydration and has been admitted to the hospital several times for the same complaint. Last time d marleni was a week ago. He was evaluated by surgery team and found to have esophageal dysmotility disorder. Recent laparoscopic repair of paraesophageal hiatal hernia with mesh on 09/25/2023. At that time evaluated by GI and surgery team. Admitted to the hospital several times for the same complaint upper GI swallow evaluation showing mild gastroesophageal reflux and possible small residual paraesophageal hernia Patient was discharged with recommendation to continue with liquid diet Patient states for a week he has been having vomiting and little discomfort in the left upper quadrant He is fully awake and oriented Denies chest pain urinary complaint or headache or dizziness He is mildly tachycardic, afebrile vitals are stable WBC mildly elevated at 13,000, looks concentrated sample, sodium 153, creatinine of 1.6 with baseline 0.5-1 Liver enzymes are unremarkable. Urine analysis is showing concentrated sample Elevated lactic acid at 6 came back to reference range at 1.7 Mildly elevated troponin with no chest pain and EKG showing sinus tachycardia [address]-T changes Chest x-ray showing COPD changes with no acute process. Patient received 1.5 L of normal saline boluses and admitted. 10/19/2023 Patient is sitting at the bed H, family female member at bedside Patient drinking juice and water, he looks tired, he is awake alert and slow to respond but appropriate He remains dehydrated although he has improvement of his labs with creatinine Down to 1.6 down to 1.0. Still hypernatremic with sodium 152 Yesterday we ordered D5W, he could not get high-dose because he lost his IV line. Patient was hard to stick. Today midline is ordered Surgery team on the case with no need for surgical intervention currently It looks like he is esophageal dysmotility disorder is remain culprit, also patient has recent history of paraesophageal hernia repair about a month ago Patient currently passed the swallow evaluation but is on liquid diet currently 10/20/2023 Patient is awake He states he feels better He is only mildly confused and lethargic Sodium is improving but still elevated, will continue with D5W at 75 mL/h Patient is trying to eat liquid diet He denies abdominal pain or chest pain 10/21/2023 Patient awake but lethargic He eats little bit Patient encouraged to eat more, this could be affected by hypernatremia which is improving His sodium is 144, we lowered his D5W down to 50 mL/h Surgery team on the case 10/22/2023 Patient still with minimal diet intake although he states he is eating but staff noticed in the morning he only consumes little Sodium is improved today down to 138 and will switch his D5W to dextrose half- normal saline at 50 mL/h Surgery team on the case as patient remains hide tube feeding. Objective - Vital Signs Vital signs: Vital Signs Temp 98.7 F 10/22/23 07:24 Pulse 92 10/22/23 07:24 Resp 16 10/22/23 07:24 BP 122/74 10/22/23 07:24 Pulse Ox 97 10/22/23 07:24 FiO2 Intake & Output 10/21/23 10/22/23 10/22/23 18:59 06:59 18:59 Intake Total 200 600 Output Total 450 600 Balance -250 0 Weight 77 kg 77.1 kg Intake: Intake, IV Titration 600 Amount Dextrose 5% in Water 1, 600 000 ml @ 50 mls/hr IV . Q20H [facility] Rx#:[id number] Oral 200 Output: Urine 450 600 Other: Voiding Method Bedside Commode Bedside Commode Urinal Urinal Urinal Diaper Diaper # Voids 1 # Bowel Movements 1 - Exam -GENERAL: The patient is alert and oriented, mildly confused , not in any acute distress. Thin built HEENT: Pupils are round and equally reacting to light. EOMI. No scleral icterus. No conjunctival pallor. Normocephalic, atraumatic. No pharyngeal erythema. No thyromegaly. CARDIOVASCULAR: S1 and S2 present. No murmurs, rubs, or gallops. PULMONARY: Chest is clear to auscultation, no wheezing , no crackles. ABDOMEN: Soft, nontender, nondistended, normoactive bowel sounds. No palpable organomegaly. MUSCULOSKELETAL: No joint swelling or deformity. EXTREMITIES: No cyanosis, clubbing, or pedal edema. NEUROLOGICAL: Gross neurological examination did not reveal any focal deficits. SKIN: No rashes. no petechiae. - Labs CBC & Chem 7: 10/22/23 09:31 10/22/23 16:58 Labs: Abnormal Lab Results - Last 24 Hours (Table) 10/22/23 10/22/23 Range/Units 09:31 09:31 RBC 4.06 L (4.30-5.90) m/uL Hct 38.8 L (39.0-53.0) % RDW 16.0 H (11.5-15.5) % Plt Count 145 L (150-450) k/uL Lymphocytes # 0.5 L (1.0-4.8) k/uL Creatinine 0.63 L (0.66-1.25) mg/dL Glucose 140 H (74-99) mg/dL Calcium 8.2 L (8.4-10.2) mg/dL Magnesium 1.5 L (1.6-2.3) mg/dL Assessment and Plan Assessment: Recurrent nausea vomiting suspected to esophageal dysmotility disorder with possible elements of esophagitis/GERD and possible small residual paraesophageal hiatal hernia Recurrent nausea vomiting most likely secondary to above Moderate calorie protein malnutrition Diabetes mellitus Hypertension Hyperlipidemia History of stroke History of coronary artery disease s/p cardiac cath Rheumatoid arthritis Previous cholecystectomy a History of GERD, paraesophageal hiatal hernia repair with Frederick fundoplication on 09/2023. His surgeon is Dr. Willis Montes Plan: Continue with IV hydration, D5W at 50 mL/h Nutrition consult Swallow evaluation was reviewed Liquid diet Continue with treatment for his nausea vomiting Surgery team consult Labs and medication were reviewed.. Continue same treatment. Continue with symptomatic treatment. Resume home medication. Monitor lytes and vitals. DVT and GI prophylaxis. Further recommendations depends on the clinical course of the patient DVT prophylaxis: Subcutaneous heparin GI Prophylaxis: Pepcid PT/OT: Pending Prognosis is guarded
[2023-10-23 08:29] LABS: HCT 44.4 % (39.0-53.0); HGB 14.2 gm/dL (13.0-17.5); MCH 31.5 pg (25.0-35.0); MCV 98.5 fL (80.0-100.0); Macrocytosis Slight; Mean Platelet Volume 9.9; Platelet Count 182 k/uL (150-450); RBC 4.51 m/uL (4.30-5.90); RDW 15.8 % (11.5-15.5); WBC 8.4 k/uL (3.8-10.6)
--- NOTE | 2023-10-23 09:57 | CDI ---
Documentation Clarification Form Date: 10/23/2023 From: Ness Mtz Phone: [phone] Admit Date: 10/17/2023 07:05:00 PM Patient Name: Finn Alex Visit Number: [id number] Discharge Date: ATTENTION: The Clinical Documentation Specialists (CDI) and [facility] Coding Staff appreciate your assistance in clarifying documentation. Please respond to the clarification below the line at the bottom and electronically sign. The CDI & [facility] Coding staff will review the response and follow-up if needed. Please note: Queries are made part of the Legal Health Record. If you have any questions, please contact the author of this message via ITS. Dr. Martinez E Sheet: Your patient has the documented symptom of mildly confused in the H&P on 10/17. Additional clarification regarding the etiology/cause of this symptom is requested. History/Risk Factors: 67-year-old male with a history of recurrent nausea and vomiting, esophageal dysmotility who presents with generalized weakness, GERONIMO, lactic acidosis and failure to thrive, hypernatremia Clinical Indicators: 10/16 Triage VS: 83/63, 97.5, 130, 16, 99% room air 10/17 H&P, "General: The patient is alert and oriented x3, mildly confused, not in any acute distress." 10/19 IM PN, "10/20/2023: Patient is awake. He is only mildly confused and lethargic." 10/16-10/21 BUN: 49, 45, 37, 24.6, 18.4, 17 Sodium: 153, 152, 152, 149, 144, 138 Potassium: 4.1, 2.6, 3.0, 3.2, 3.5, 3.5, 3.4, 3.8, 4.4 Treatment: D5/0.45 Normal Saline IV 50cc/hour start 10/21 Zoloft 25mg oral daily start 10/17 (home med and dose) Please clarify the etiology of the symptom of Altered Mental Status: [ x ] Metabolic Encephalopathy due to elevated BUN, elevated Sodium [ ] Other condition (please specify) [ ] Unable to determine MTDD
[2023-10-23 11:56] LABS: African American GFR (CKD) >90 (>60 ml/min/1.73 sqM); Anion Gap 9 mmol/L; Blood Urea Nitrogen 15 mg/dL (9-20); Calcium 8.4 mg/dL (8.4-10.2); Carbon Dioxide 25 mmol/L (22-30); Chloride 103 mmol/L (98-107); Glucose 126 mg/dL (74-99); Magnesium 2.2 mg/dL (1.6-2.3); Non-African American GFR(CKD) >90 (>60 ml/min/1.73 sqM); Potassium 3.3 mmol/L (3.5-5.1); Sodium 137 mmol/L (137-145)
[2023-10-23] MEDS ORDERED: PROPOFOL 10 MG/ML 20 ML VIAL IV ONE (13:20)
--- NOTE | 2023-10-23 13:23 | P.PN ---
Progress Note - Text Progress Note Date: 10/23/23 The patient had a calorie count performed this weekend. The patient failed his caloric needs. The patient very limited oral intake. The patient has had issues with chronic dysphagia related to esophageal dysmotility. The patient will be scheduled for PEG tube placement.
[2023-10-23] MEDS ORDERED: Potassium Replacement Protocol 1 EACH MISC MISCELLANE PRN (13:41)
[2023-10-23] MEDS: IV FLUID CONTINUATION 1,000 ML IV ONE (14:07)
[2023-10-23] MEDS: POTASSIUM CHLORIDE 10 MEQ in WATER FOR INJECTION 1 100ML.BAG IVPB SCH (14:42)
--- NOTE | 2023-10-23 23:27 | US ---
EXAMINATION TYPE: US venous doppler duplex UE RT DATE OF EXAM: 10/23/2023 COMPARISON: NONE CLINICAL INDICATION: Male, 67 years old with history of Swollen arm, unexpected; Swollen arm. SIDE PERFORMED: Right TECHNIQUE AND FINDINGS: Grayscale, color doppler, spectral doppler imaging performed of the deep veins of the upper extremiti es. Right Arm: Echoes seen within the basilic vein, with small amount of preserved color Doppler flow and noncompressibility is seen. Cephalic vein unable to be visualized due to edema, multiple probes atte mpted to view. IMPRESSION: * DVT in the right basilic vein, nearly occlusive. * Cephalic vein unable to be visualized.
[2023-10-24] MEDS: HEPARIN SOD,PORK IN 0.45% NACL 25,000 UNIT in 0.45% NACL 1 250ML.BAG IV SCH (02:29)
--- NOTE | 2023-10-24 06:42 | P.PN ---
Subjective Progress Note Date: 10/23/23 Patient is a pleasant 67 years old male with past medical history of multiple medical problems He has previous history of intractable vomiting and dehydration and has been admitted to the hospital several times for the same complaint. Last time discharge was a week ago. He was evaluated by surgery team and found to have esophageal dysmotility disorder. Recent laparoscopic repair of paraesophageal h iatal hernia with mesh on 09/25/2023. At that time evaluated by GI and surgery team. Admitted to the hospital several times for the same complaint upper GI swallow evaluation showing mild gastroesophageal reflux and possible small residual paraesophageal hernia Patient was discharged with recommendation to continue with liquid diet Patient states for a week he has been having vomiting and little discomfort in the left upper quadrant He is fully awake and oriented Denies chest pain urinary complaint or headache or dizziness He is mildly tachycardic, afebrile vitals are stable WBC mildly elevated at 13,000, looks concentrated sample, sodium 153, creatinine of 1.6 with baseline 0.5-1 Liver enzymes are unremarkable. Urine analysis is showing concentrated sample Elevated lactic acid at 6 came back to reference range at 1.7 Mildly elevated troponin with no chest pain and EKG showing sinus tachycardia [address]-T changes Chest x-ray showing COPD changes with no acute process. Patient received 1.5 L of normal saline boluses and admitted. 10/19/2023 Patient is sitting at the bed H, family female member at bedside Patient drinking juice and water, he looks tired, he is awake alert and slow to respond but appropriate He remains dehydrated although he has improvement of his labs with creatinine Down to 1.6 down to 1.0. Still hypernatremic with sodium 152 Yesterday we ordered D5W, he could not get high-dose because he lost his IV line. Patient was hard to stick. Today midline is ordered Surgery team on the case with no need for surgical intervention currently It looks like he is esophageal dysmotility disorder is remain culprit, also patient has recent history of paraesophageal hernia repair about a month ago Patient currently passed the swallow evaluation but is on liquid diet currently 10/20/2023 Patient is awake He states he feels better He is only mildly confused and lethargic Sodium is improving but still elevated, will continue with D5W at 75 mL/h Patient is trying to eat liquid diet He denies abdominal pain or chest pain 10/21/2023 Patient awake but lethargic He eats little bit Patient encouraged to eat more, this could be affected by hypernatremia which is improving His sodium is 144, we lowered his D5W down to 50 mL/h Surgery team on the case 10/22/2023 Patient still with minimal diet intake although he states he is eating but staff noticed in the morning he only consumes little Sodium is improved today down to 138 and will switch his D5W to dextrose half- normal saline at 50 mL/h Surgery team on the case as patient remains hide tube feeding. 10/23/2023 Patient is seen in follow-up today lethargic although arousable. General surgery following with plans on possible PEG tube placement today. Continue gen tle IV hydration and will follow-up on repeat labs. Patient is currently afebrile with no reports of chest pain or shortness of breath. Will have dietary consulted as well regarding tube feeding. Patient with significant weakness recommend PT/OT therapy evaluation and physical therapy daily for s trength and mobility. Social work following working on discharge planning including ECF. Will await surgical report. Per nursing staff patient is a difficult IV stick and has no intravenous access at this time. Okay for midline order. Review of systems: Constitutional: reports of fatigue, no fever, or chills Cardiovascular: No reports of chest pain or palpitations Respiratory: No reports of shortness of breath or cough GI: No reports of nausea, vomiting, or diarrhea, reports not much of an appetite and not tolerating much oral intake : No reports of dysuria or retention Neurovascular: reports of generalized weakness All medications have been reviewed Physical exam: GENERAL: The patient is alert and oriented, mildly confused , not in any acute distress. Lethargic although arousable, elderly appearing, ill-appearing thin built HEENT: Pupils are round and equally reacting to light. EOMI. No scleral icterus. No conjunctival pallor. Normocephalic, atraumatic. No pharyngeal erythema. No thyromegaly. CARDIOVASCULAR: S1 and S2 muffled PULMONARY: Diminished breath sounds bilaterally otherwise chest is clear to auscultation, no wheezing , no crackles. ABDOMEN: Soft, nontender, nondistended, normoactive bowel sounds. No palpable organomegaly. MUSCULOSKELETAL: No joint swelling or deformity. EXTREMITIES: No cyanosis, clubbing, or pedal edema. NEUROLOGICAL: Gross neurological examination did not reveal any focal deficits. Diffusely weak SKIN: No rashes. no petechiae. Assessment: Recurrent nausea vomiting suspected to esophageal dysmotility disorder with possible elements of esophagitis/GERD and possible small residual paraesophageal hiatal hernia Recurrent nausea vomiting most likely secondary to above Moderate calorie protein malnutrition with a BMI of 13.6 Diabetes mellitus Hypertension Hyperlipidemia History of stroke History of coronary artery disease s/p cardiac cath Rheumatoid arthritis Previous cholecystectomy History of GERD paraesophageal hiatal hernia repair with Frederick fundoplication on 09/2023. His surgeon is Dr. Pavon GI prophylaxis DVT prophylaxis Full code Plan: Continue with IV hydration, D5W at 50 mL/h, follow-up on repeat labs, replace electrolytes per protocol General surgery following being evaluated for PEG tube placement Dietary on consult and will arrange for nutrition and tube feedings once cleared by surgery Continue with anti-nausea medications as needed Recommend PT/OT therapy daily this with social work regarding discharge planning. Tentatively looking into ECF Repeat labs ordered for a.m. Due to multiple complex medical issues, prognosis is guarded The impression and plan of care has been dictated by Yanira Linda, Nurse Practitioner as directed. Dr. Bentley MD I have performed a history and examination and MDM of this patient, discussed the same with the dictator, and agree with the dictator's assessment and plan as written ,documented as a scribe. Based on total visit time, I have performed more than 50% of the visit. Objective - Vital Signs Vital signs: Vital Signs Temp 98.4 F 10/23/23 07:01 Pulse 96 10/23/23 07:01 Resp 16 10/23/23 07:01 BP 131/93 10/23/23 07:01 Pulse Ox 97 10/23/23 07:01 FiO2 Intake & Output 10/22/23 10/23/23 10/23/23 18:59 06:59 18:59 Intake Total 1120 Output Total 200 450 200 Balance 920 -450 -200 Weight 41 kg Intake: Intake, IV Titration 1000 Amount Dextrose 5% in Water 1, 300 000 ml @ 50 mls/hr IV . Q20H [facility] Rx#:[id number] Dextrose 5%-0.45% NaCl 1, 300 000 ml @ 50 mls/hr IV . Q20H [facility] Rx#:[id number] Magnesium Sulfate-D5w Pmx 200 1 gm In Dextrose/Water 1 100ml.bag @ 100 mls/hr IVPB Q1H [facility] Rx#: [id number] Potassium Chloride 10 meq 200 In Water For Injection 1 100ml.bag @ 100 mls/hr IVPB Q1H [facility] Rx#: [id number] Oral 120 Output: Urine 200 450 200 Other: Voiding Method Urinal Urinal Urinal - Labs CBC & Chem 7: 10/23/23 07:59 10/23/23 07:59 Labs: Abnormal Lab Results - Last 24 Hours (Table) 10/22/23 10/23/23 Range/Units 09:31 07:59 RBC 4.06 L (4.30-5.90) m/uL Hct 38.8 L (39.0-53.0) % RDW 16.0 H 15.8 H (11.5-15.5) % Plt Count 145 L (150-450) k/uL Lymphocytes # 0.5 L (1.0-4.8) k/uL
[2023-10-24 08:50] LABS: Basophils % (A) 0 %; Eosinophils % (A) 0 %; HCT 40.2 % (39.0-53.0); HGB 13.1 gm/dL (13.0-17.5); Lymphocytes % (A) 4 %; MCH 31.4 pg (25.0-35.0); MCHC 32.6 g/dL (31.0-37.0); MCV 96.2 fL (80.0-100.0); Mean Platelet Volume 11.1; Monocytes % (A) 4 %; Neutrophils % (A) 91 %; Platelet Count 146 k/uL (150-450); RBC 4.18 m/uL (4.30-5.90); RDW 15.7 % (11.5-15.5); WBC 8.8 k/uL (3.8-10.6)
[2023-10-24 08:51] LABS: Lymphocytes # (A) 0.4 k/uL (1.0-4.8); Monocytes # (A) 0.4 k/uL (0-1.0)
[2023-10-24 10:16] LABS: ALT 24 U/L (4-49); AST 36 U/L (17-59); African American GFR (CKD) >90 (>60 ml/min/1.73 sqM); Albumin 2.8 g/dL (3.5-5.0); Alkaline Phosphatase 103 U/L (38-126); Anion Gap 6 mmol/L; Blood Urea Nitrogen 13 mg/dL (9-20); Carbon Dioxide 25 mmol/L (22-30); Chloride 105 mmol/L (98-107); Globulin 2.9 g/dL; Glucose 127 mg/dL (74-99); Magnesium 1.7 mg/dL (1.6-2.3); Non-African American GFR(CKD) >90 (>60 ml/min/1.73 sqM); Sodium 136 mmol/L (137-145); Total Bilirubin 1.2 mg/dL (0.2-1.3); Total Protein 5.7 g/dL (6.3-8.2)
[2023-10-24 10:37] LABS: Potassium 4.3 mmol/L (3.5-5.1)
[2023-10-24] MEDS ORDERED: Magnesium Replacement Protocol 1 EACH MISC MISCELLANE PRN (10:45)
[2023-10-24] MEDS: HEPARIN SODIUM 1,000 UN/ML (10ML VL) IV PRN (12:10)
[2023-10-24] MEDS: MAGNESIUM SULFATE-D5W PMX 1 GM in DEXTROSE/WATER 1 100ML.BAG IVPB SCH (12:19)
--- NOTE | 2023-10-24 16:00 | P.PN ---
Subjective Progress Note Date: 10/24/23 CHIEF COMPLAINT: Failure to thrive HISTORY OF PRESENT ILLNESS: Patient is status post PEG tube placement. Tube feeds to be started today. Minimal abdominal discomfort. Afebrile. He has a new right arm DVT. Started on IV heparin. He had been mildly tachycardic this morning. Now improved. PHYSICAL EXAM: VITAL SIGNS: Reviewed. GENERAL: no acute distress. ABDOMEN: Soft. Nondistended. Nontender. PEG tube site clean dry and intact NEUROLOGIC: Alert and oriented. Cranial nerves II through XII grossly intact. ASSESSMENT: 1. Esophageal dysmotility disorder 2. Failure to thrive 3. Severe protein calorie malnutrition 4. Status post laparoscopic repair of paraesophageal hiatal hernia with mesh on 09/25/2023 PLAN: -Consult dietitian to start tube feeds -Continue supportive care -Patient will require enteral nutrition for minimum of 3 months Physician [employer] Project Manager note has been reviewed by physician. Signing provider agrees with the documented findings, assessment, and plan of care. Objective - Vital Signs Vital signs: Vital Signs Temp 98.0 F 10/24/23 12:37 Pulse 86 10/24/23 12:37 Resp 16 10/24/23 12:37 BP 144/91 10/24/23 12:37 Pulse Ox 94 L 10/24/23 12:37 FiO2 Intake & Output 10/23/23 10/24/23 10/24/23 18:59 06:59 18:59 Intake Total 300 59.396 Output Total 200 200 0 Balance 100 -200 59.396 Weight 41 kg 40.5 kg 49 kg Intake: IV 300 Intake, IV Titration 47.396 Amount Heparin Sod,Pork in 0.45% 47.396 NaCl 25,000 unit In 0.45 % NaCl 1 250ml.bag @ 12 UNITS/KG/HR 4.92 mls/hr IV .Q24H [facility] Rx#: [id number] Tube Feeding 12 Output: Urine 200 200 Stool 0 Other: Voiding Method Urinal Urinal Urinal # Voids 1 # Emeses 1 - Labs CBC & Chem 7: 10/24/23 07:55 10/24/23 07:55 Labs: Abnormal Lab Results - Last 24 Hours (Table) 10/24/23 10/24/23 Range/Units 07:55 07:55 RBC 4.18 L (4.30-5.90) m/uL RDW 15.7 H (11.5-15.5) % Plt Count 146 L (150-450) k/uL Neutrophils # 8.0 H (1.3-7.7) k/uL Lymphocytes # 0.4 L (1.0-4.8) k/uL Sodium 136 L (137-145) mmol/L Creatinine 0.53 L (0.66-1.25) mg/dL Glucose 127 H (74-99) mg/dL Calcium 8.0 L (8.4-10.2) mg/dL Total Protein 5.7 L (6.3-8.2) g/dL Albumin 2.8 L (3.5-5.0) g/dL
[2023-10-24 17:08] LABS: Glucose,Whole Blood 123 mg/dL (70-110)
[2023-10-25 00:07] LABS: Glucose,Whole Blood 153 mg/dL (70-110)
[2023-10-25 06:01] LABS: Glucose,Whole Blood 174 mg/dL (70-110)
--- NOTE | 2023-10-25 06:30 | P.PN ---
Subjective Progress Note Date: 10/24/23 Patient is a pleasant 67 years old male with past medical history of multiple medical problems He has previous history of intractable vomiting and dehydration and has been admitted to the hospital several times for the same complaint. Last time discharge was a week ago. He was evaluated by surgery team and found to have esophageal dysmotility disorder. Recent laparoscopic repair of paraesophageal h iatal hernia with mesh on 09/25/2023. At that time evaluated by GI and surgery team. Admitted to the hospital several times for the same complaint upper GI swallow evaluation showing mild gastroesophageal reflux and possible small residual paraesophageal hernia Patient was discharged with recommendation to continue with liquid diet Patient states for a week he has been having vomiting and little discomfort in the left upper quadrant He is fully awake and oriented Denies chest pain urinary complaint or headache or dizziness He is mildly tachycardic, afebrile vitals are stable WBC mildly elevated at 13,000, looks concentrated sample, sodium 153, creatinine of 1.6 with baseline 0.5-1 Liver enzymes are unremarkable. Urine analysis is showing concentrated sample Elevated lactic acid at 6 came back to reference range at 1.7 Mildly elevated troponin with no chest pain and EKG showing sinus tachycardia [address]-T changes Chest x-ray showing COPD changes with no acute process. Patient received 1.5 L of normal saline boluses and admitted. 10/19/2023 Patient is sitting at the bed H, family female member at bedside Patient drinking juice and water, he looks tired, he is awake alert and slow to respond but appropriate He remains dehydrated although he has improvement of his labs with creatinine Down to 1.6 down to 1.0. Still hypernatremic with sodium 152 Yesterday we ordered D5W, he could not get high-dose because he lost his IV line. Patient was hard to stick. Today midline is ordered Surgery team on the case with no need for surgical intervention currently It looks like he is esophageal dysmotility disorder is remain culprit, also patient has recent history of paraesophageal hernia repair about a month ago Patient currently passed the swallow evaluation but is on liquid diet currently 10/20/2023 Patient is awake He states he feels better He is only mildly confused and lethargic Sodium is improving but still elevated, will continue with D5W at 75 mL/h Patient is trying to eat liquid diet He denies abdominal pain or chest pain 10/21/2023 Patient awake but lethargic He eats little bit Patient encouraged to eat more, this could be affected by hypernatremia which is improving His sodium is 144, we lowered his D5W down to 50 mL/h Surgery team on the case 10/22/2023 Patient still with minimal diet intake although he states he is eating but staff noticed in the morning he only consumes little Sodium is improved today down to 138 and will switch his D5W to dextrose half- normal saline at 50 mL/h Surgery team on the case as patient remains hide tube feeding. 10/23/2023 Patient is seen in follow-up today lethargic although arousable. General surgery following with plans on possible PEG tube placement today. Continue gen tle IV hydration and will follow-up on repeat labs. Patient is currently afebrile with no reports of chest pain or shortness of breath. Will have dietary consulted as well regarding tube feeding. Patient with significant weakness recommend PT/OT therapy evaluation and physical therapy daily for s trength and mobility. Social work following working on discharge planning including ECF. Will await surgical report. Per nursing staff patient is a difficult IV stick and has no intravenous access at this time. Okay for midline order. 10/24/2023 Patient is seen in follow-up today is awake and appears frustrated. Patient did receive a PEG tube and will be initiated on tube feedings today. Case management/social work following working on possible ECF for continued strength and mobility. Plan is for [facility] currently reviewing. Patient with generalized weakness and debility due to oral intake and malnutrition. Patient does have some right upper arm swelling noted and did have a venous Doppler which was positive for DVT will need to transition for anticoagulation and verify coverage of Eliquis. With aspiration precautions and monitor for any residuals after starting tube feedings. Therapy daily. Review of systems: Constitutional: reports of fatigue, no fever, or chills Cardiovascular: No reports of chest pain or palpitations Respiratory: No reports of shortness of breath or cough GI: No reports of nausea, vomiting, or diarrhea, reports not much of an appetite and not tolerating much oral intake : No reports of dysuria or retention Neurovascular: reports of generalized weakness All medications have been reviewed Physical exam: GENERAL: The patient is alert and oriented, appears baseline, not in any acute distress. Frustrated, elderly appearing, ill-appearing thin built HEENT: Pupils are round and equally reacting to light. EOMI. No scleral icterus. No conjunctival pallor. Normocephalic, atraumatic. No pharyngeal erythema. No thyromegaly. CARDIOVASCULAR: S1 and S2 muffled PULMONARY: Diminished breath sounds bilaterally otherwise chest is clear to auscultation, no wheezing , no crackles. ABDOMEN: Soft, nontender, nondistended, normoactive bowel sounds. No palpable organomegaly. PEG tube noted MUSCULOSKELETAL: No joint swelling or deformity. EXTREMITIES: No cyanosis, clubbing, or pedal edema. Significant right upper extremity swelling NEUROLOGICAL: Gross neurological examination did not reveal any focal deficits. Diffusely weak SKIN: No rashes. no petechiae. Assessment: Recurrent nausea vomiting suspected to esophageal dysmotility disorder with possible elements of esophagitis/GERD and possible small residual paraesophageal hiatal hernia, status post PEG tube placement on 10/23/2023 Recurrent nausea vomiting most likely secondary to above Moderate calorie protein malnutrition with a BMI of 13.6 Right upper extremity redness and swelling, positive for DVT as noted on Doppler Diabetes mellitus Hypertension Hyperlipidemia History of stroke History of coronary artery disease s/p cardiac cath Rheumatoid arthritis Previous cholecystectomy History of GERD paraesophageal hiatal hernia repair with Frederick fundoplication on 09/2023. His s urgeon is Dr. Pavon GI prophylaxis DVT prophylaxis Full code Plan: Continue with IV hydration, D5W at 50 mL/h, follow-up on repeat labs, replace electrolytes per protocol General surgery following and is status post PEG tube placement. Plans for initiating tube feedings this afternoon Dietary on consult and will arrange for nutrition and tube feedings Continue with anti-nausea medications as needed Patient noted to have some increased redness and swelling with an IV in the right upper extremity Doppler which was positive for DVT. Patient started on heparin and will need to verify coverage and transition to Eliquis. Discussed with nursing staff about elevating right upper extremity and removing the previous IV Recommend PT/OT therapy daily this with social work regarding discharge planning. Tentatively looking into rehab at [facility] also following verifying coverage for tube feedings. May not be a covered benefit although patient has had multiple hospitalizations with significant paraesophageal hiatal hernia and esophageal dysmotility with significant weight loss, muscle wasting, continued inability to tolerate oral intake and severe protein calorie malnutrition. Repeat labs ordered for a.m. Due to multiple complex medical issues, prognosis is guarded The impression and plan of care has been dictated by Yanira Linda, Nurse Practitioner as directed. Dr. Bentley MD I have performed a history and examination and MDM of this patient, discussed the same with the dictator, and agree with the dictator's assessment and plan as written ,documented as a scribe. Based on total visit time, I have performed more than 50% of the visit. Objective - Vital Signs Vital signs: Vital Signs Temp 98.2 F 10/24/23 07:45 Pulse 112 H 10/24/23 07:45 Resp 20 10/24/23 07:45 BP 144/101 10/24/23 07:45 Pulse Ox 98 10/24/23 07:45 FiO2 Intake & Output 10/23/23 10/24/23 10/24/23 18:59 06:59 18:59 Intake Total 300 Output Total 200 200 Balance 100 -200 Weight 41 kg 40.5 kg Intake: IV 300 Output: Urine 200 200 Other: Voiding Method Urinal Urinal # Voids 1 # Emeses 1 - Labs CBC & Chem 7: 10/24/23 07:55 10/24/23 07:55 Labs: Abnormal Lab Results - Last 24 Hours (Table) 10/23/23 10/24/23 10/24/23 Range/Units 07:59 07:55 07:55 RBC 4.18 L (4.30-5.90) m/uL RDW 15.7 H (11.5-15.5) % Plt Count 146 L (150-450) k/uL Neutrophils # 8.0 H (1.3-7.7) k/uL Lymphocytes # 0.4 L (1.0-4.8) k/uL Sodium 136 L (137-145) mmol/L Potassium 3.3 L (3.5-5.1) mmol/L Creatinine 0.57 L 0.53 L (0.66-1.25) mg/dL Glucose 126 H 127 H (74-99) mg/dL Calcium 8.0 L (8.4-10.2) mg/dL Total Protein 5.7 L (6.3-8.2) g/dL Albumin 2.8 L (3.5-5.0) g/dL
[2023-10-25 12:00] LABS: Glucose,Whole Blood 155 mg/dL (70-110)
[2023-10-25] MEDS: APIXABAN 5 MG TAB PO SCH (12:04)
--- NOTE | 2023-10-25 13:49 | P.PN ---
Subjective Progress Note Date: 10/25/23 CHIEF COMPLAINT: Failure to thrive HISTORY OF PRESENT ILLNESS: Patient is status post PEG tube placement, POD #2. Patient is tolerating tube feeds. Tube feeds are currently at 22 mL/h. Denies any abdominal pain. Denies any nausea or vomiting. He has a new right arm DVT. He is starting Eliquis today. Afebrile. Tachycardia resolved PHYSICAL EXAM: VITAL SIGNS: Reviewed. GENERAL: no acute distress. ABDOMEN: Soft. Nondistended. Nontender. PEG tube site clean dry and intact NEUROLOGIC: Alert and oriented. Cranial nerves II through XII grossly intact. ASSESSMENT: 1. Esophageal dysmotility disorder 2. Failure to thrive 3. Severe protein calorie malnutrition 4. Status post laparoscopic repair of paraesophageal hiatal hernia with mesh on 09/25/2023 PLAN: -Continue to titrate tube feeds per dietitian recommendations -Okay to start Eliquis for DVT -Patient will require enteral nutrition for minimum of 3 months Physician Continuous Improvement Intern note has been reviewed by physician. Signing provider agrees with the documented findings, assessment, and plan of care. Objective - Vital Signs Vital signs: Vital Signs Temp 98.3 F 10/25/23 11:55 Pulse 99 10/25/23 11:55 Resp 16 10/25/23 11:55 BP 123/80 10/25/23 11:55 Pulse Ox 91 L 10/25/23 11:55 FiO2 Intake & Output 10/24/23 10/25/23 10/25/23 18:59 06:59 18:59 Intake Total 95.834 70.906 270.573 Output Total 175 200 250 Balance -79.166 -129.094 20.573 Weight 49 kg Intake: Intake, IV Titration 85.834 48.906 94.573 Amount Heparin Sod,Pork in 0.45% 85.834 48.906 94.573 NaCl 25,000 unit In 0.45 % NaCl 1 250ml.bag @ 12 UNITS/KG/HR 4.92 mls/hr IV .Q24H [facility] Rx#: [id number] Tube Feeding 10 22 176 Output: Urine 175 200 250 Stool 0 0 Other: Voiding Method Urinal Urinal Urinal # Voids 1 # Emeses 1 - Labs CBC & Chem 7: 10/24/23 07:55 10/24/23 07:55 Labs: Abnormal Lab Results - Last 24 Hours (Table) 10/24/23 10/24/23 10/25/23 Range/Units 17:07 17:32 00:05 APTT 37.2 H (22.0-30.0) sec POC Glucose (mg/dL) 123 H 153 H (70-110) mg/dL 10/25/23 10/25/23 10/25/23 Range/Units 05:59 07:58 11:59 APTT 57.5 H (22.0-30.0) sec POC Glucose (mg/dL) 174 H 155 H (70-110) mg/dL
[2023-10-25 14:57] LABS: INR 1.02 sec (0.93-1.11)
[2023-10-25 17:14] VITALS: BMI 16.4
[2023-10-25 18:44] LABS: Glucose,Whole Blood 137 mg/dL (70-110)
[2023-10-26 00:18] LABS: Glucose,Whole Blood 132 mg/dL (70-110)
--- NOTE | 2023-10-26 05:20 | P.PN ---
Subjective Progress Note Date: 10/25/23 Patient is a pleasant 67 years old male with past medical history of multiple medical problems He has previous history of intractable vomiting and dehydration and has been admitted to the hospital several times for the same complaint. Last time discharge was a week ago. He was evaluated by surgery team and found to have esophageal dysmotility disorder. Recent laparoscopic repair of paraesophageal h iatal hernia with mesh on 09/25/2023. At that time evaluated by GI and surgery team. Admitted to the hospital several times for the same complaint upper GI swallow evaluation showing mild gastroesophageal reflux and possible small residual paraesophageal hernia Patient was discharged with recommendation to continue with liquid diet Patient states for a week he has been having vomiting and little discomfort in the left upper quadrant He is fully awake and oriented Denies chest pain urinary complaint or headache or dizziness He is mildly tachycardic, afebrile vitals are stable WBC mildly elevated at 13,000, looks concentrated sample, sodium 153, creatinine of 1.6 with baseline 0.5-1 Liver enzymes are unremarkable. Urine analysis is showing concentrated sample Elevated lactic acid at 6 came back to reference range at 1.7 Mildly elevated troponin with no chest pain and EKG showing sinus tachycardia [address]-T changes Chest x-ray showing COPD changes with no acute process. Patient received 1.5 L of normal saline boluses and admitted. 10/19/2023 Patient is sitting at the bed H, family female member at bedside Patient drinking juice and water, he looks tired, he is awake alert and slow to respond but appropriate He remains dehydrated although he has improvement of his labs with creatinine Down to 1.6 down to 1.0. Still hypernatremic with sodium 152 Yesterday we ordered D5W, he could not get high-dose because he lost his IV line. Patient was hard to stick. Today midline is ordered Surgery team on the case with no need for surgical intervention currently It looks like he is esophageal dysmotility disorder is remain culprit, also patient has recent history of paraesophageal hernia repair about a month ago Patient currently passed the swallow evaluation but is on liquid diet currently 10/20/2023 Patient is awake He states he feels better He is only mildly confused and lethargic Sodium is improving but still elevated, will continue with D5W at 75 mL/h Patient is trying to eat liquid diet He denies abdominal pain or chest pain 10/21/2023 Patient awake but lethargic He eats little bit Patient encouraged to eat more, this could be affected by hypernatremia which is improving His sodium is 144, we lowered his D5W down to 50 mL/h Surgery team on the case 10/22/2023 Patient still with minimal diet intake although he states he is eating but staff noticed in the morning he only consumes little Sodium is improved today down to 138 and will switch his D5W to dextrose half- normal saline at 50 mL/h Surgery team on the case as patient remains hide tube feeding. 10/23/2023 Patient is seen in follow-up today lethargic although arousable. General surgery following with plans on possible PEG tube placement today. Continue gen tle IV hydration and will follow-up on repeat labs. Patient is currently afebrile with no reports of chest pain or shortness of breath. Will have dietary consulted as well regarding tube feeding. Patient with significant weakness recommend PT/OT therapy evaluation and physical therapy daily for s trength and mobility. Social work following working on discharge planning including ECF. Will await surgical report. Per nursing staff patient is a difficult IV stick and has no intravenous access at this time. Okay for midline order. 10/24/2023 Patient is seen in follow-up today is awake and appears frustrated. Patient did receive a PEG tube and will be initiated on tube feedings today. Case management/social work following working on possible ECF for continued strength and mobility. Plan is for [facility] currently reviewing. Patient with generalized weakness and debility due to oral intake and malnutrition. Patient does have some right upper arm swelling noted and did have a venous Doppler which was positive for DVT will need to transition for anticoagulation and verify coverage of Eliquis. With aspiration precautions and monitor for any residuals after starting tube feedings. Therapy daily. 10/25/2023 Patient is seen in follow-up today continues to be mostly sleeping throughout the day. Patient is on tube feeds and tolerating at goal currently with dietary adjusting. Patient reports some mild discomfort although nothing significant. Patient with weakness planning on ECF and currently will require insurance authorization. Will discuss with case management/social work regarding discharge planning. Continue with monitoring residuals and aspiration precautions with head of the bed elevated 30 to 45 degrees. Patient continues with copious secretions although denies vomiting. Patient is afebrile with no reported chest pain or shortness of breath. Patient was maintained on IV heparin for right upper extremity DVT and will transition to Eliquis. Review of systems: Constitutional: reports of fatigue, no fever, or chills Cardiovascular: No reports of chest pain or palpitations Respiratory: No reports of shortness of breath or cough GI: No reports of nausea, vomiting, or diarrhea, reports tolerating tube feeds : No reports of dysuria or retention Neurovascular: reports of generalized weakness All medications have been reviewed Physical exam: GENERAL: The patient is alert and oriented, appears baseline, not in any acute distress. Flat affect, elderly appearing, ill-appearing thin built HEENT: Pupils are round and equally reacting to light. EOMI. No scleral icterus. No conjunctival pallor. Normocephalic, atraumatic. No pharyngeal erythema. No thyromegaly. CARDIOVASCULAR: S1 and S2 muffled PULMONARY: Diminished breath sounds bilaterally otherwise chest is clear to auscultation, no wheezing , no crackles. ABDOMEN: Soft, nontender, nondistended, normoactive bowel sounds. No palpable organomegaly. PEG tube noted MUSCULOSKELETAL: No joint swelling or deformity. EXTREMITIES: No cyanosis, clubbing, or pedal edema. right upper extremity swelling showing some improvements NEUROLOGICAL: Gross neurological examination did not reveal any focal deficits. Diffusely weak SKIN: No rashes. no petechiae. Assessment: Recurrent nausea vomiting suspected to esophageal dysmotility disorder with possible elements of esophagitis/GERD and possible small residual paraesophageal hiatal hernia, status post PEG tube placement on 10/23/2023 Recurrent nausea vomiting most likely secondary to above Severe calorie protein malnutrition with a BMI of 13.6 Right upper extremity redness and swelling, positive for DVT as noted on Doppler, improving Diabetes mellitus Hypertension Hyperlipidemia History of stroke History of coronary artery disease s/p cardiac cath Rheumatoid arthritis Previous cholecystectomy History of GERD paraesophageal hiatal hernia repair with Frederick fundoplication on 09/2023. His surgeon is Dr. Pavon GI prophylaxis DVT prophylaxis Full code Plan: Continue with IV hydration, D5W at 50 mL/h, follow-up on repeat labs, replace electrolytes per protocol General surgery following and is status post PEG tube placement. Tube feedings at goal with dietary following and tolerating tube feedings thus far Continue with anti-nausea medications as needed Patient was noted to have some increased redness and swelling with an IV in the right upper extremity Doppler which was positive for DVT. Patient started on heparin and will transition to Eliquis. Patient will be on 10 mg twice daily for 1 week and then titrate down to 5 mg twice daily thereafter. Discussed with nursing staff about elevating right upper extremity Recommend PT/OT therapy daily with social work regarding discharge planning. Tentatively looking into rehab at [facility]. Patient will require insurance authorization Social work also following verifying coverage for tube feedings. May not be a covered benefit although patient has had multiple hospitalizations with significant paraesophageal hiatal hernia and esophageal dysmotility with signifi cant weight loss, muscle wasting, continued inability to tolerate oral intake and severe protein calorie malnutrition. Repeat labs ordered for a.m. Due to multiple complex medical issues, prognosis is guarded Possible discharge planning to ECF in the next 24 to 48 hours The impression and plan of care has been dictated by Yanira Linda, Nurse Practitioner as directed. Dr. Bentley MD I have performed a history and examination and MDM of this patient, discussed the same with the dictator, and agree with the dictator's assessment and plan as written ,documented as a scribe. Based on total visit time, I have performed more than 50% of the visit. Objective - Vital Signs Vital signs: Vital Signs Temp 98.2 F 10/25/23 06:58 Pulse 91 10/25/23 06:58 Resp 16 10/25/23 06:58 BP 128/85 10/25/23 06:58 Pulse Ox 95 10/25/23 06:58 FiO2 Intake & Output 10/24/23 10/25/23 10/25/23 18:59 06:59 18:59 Intake Total 95.834 70.906 176 Output Total 175 200 250 Balance -79.166 -129.094 -74 Weight 49 kg Intake: Intake, IV Titration 85.834 48.906 Amount Heparin Sod,Pork in 0.45% 85.834 48.906 NaCl 25,000 unit In 0.45 % NaCl 1 250ml.bag @ 12 UNITS/KG/HR 4.92 mls/hr IV .Q24H [facility] Rx#: [id number] Tube Feeding 10 176 Output: Urine 175 200 250 Stool 0 0 Other: Voiding Method Urinal Urinal Urinal # Voids 1 # Emeses 1 - Labs CBC & Chem 7: 10/24/23 07:55 10/24/23 07:55 Labs: Abnormal Lab Results - Last 24 Hours (Table) 10/24/23 10/24/23 10/25/23 Range/Units 17:07 17:32 00:05 APTT 37.2 H (22.0-30.0) sec POC Glucose (mg/dL) 123 H 153 H (70-110) mg/dL 10/25/23 10/25/23 Range/Units 05:59 07:58 APTT 57.5 H (22.0-30.0) sec POC Glucose (mg/dL) 174 H (70-110) mg/dL
[2023-10-26 06:11] LABS: Glucose,Whole Blood 144 mg/dL (70-110)
--- NOTE | 2023-10-26 09:32 | XR ---
EXAMINATION TYPE: XR chest 1V portable DATE OF EXAM: 10/26/2023 7:07 AM CLINICAL INDICATION:Male, 67 years old with history of shortness of breath; COMPARISON: Chest radiographs from 10/17/2023 TECHNIQUE: XR chest 1V portable Frontal view of the chest. FINDINGS: Lungs/Pleura: There is flattening of the diaphragm with increased lucency of the lungs. No evidence o f pneumothorax, pleural effusion or focal consolidation. Pulmonary vascularity: Unremarkable. Heart/mediastinum: Cardiomediastinal silhouette is unremarkable. Musculoskeletal: No acute osseous pathology. IMPRESSION: 1. No acute cardiopulmonary disease process. 2. COPD changes.
[2023-10-26 10:50] LABS: HCT 31.9 % (39.6-50.0); HGB 10.8 g/dL (13.0-17.0); MCH 31.5 pg (27.0-32.0); MCHC 33.9 g/dL (32.0-37.0); Mean Platelet Volume 11.6 FL (9.5-12.2); NRBC Per 100 WBC 0.06 X 10*3/uL (0.00-0.01); Platelet Count 188 X 10*3/uL (140-440); RBC 3.43 X 10*6/uL (4.40-5.60); RDW 16.4 % (11.5-14.5); WBC 5.55 X 10*3/uL (4.50-10.00)
[2023-10-26 10:56] LABS: ALT 16 U/L (10-49); AST 16 U/L (14-35); Albumin 2.8 g/dL (3.8-4.9); Albumin/Globulin Ratio 1.47 Ratio (1.60-3.17); Alkaline Phosphatase 99 U/L (41-126); Blood Urea Nitrogen 7.7 mg/dL (9.0-27.0); Calcium 7.8 mg/dL (8.7-10.3); Carbon Dioxide 24.4 mmol/L (21.6-31.8); Chloride 101 mmol/L (96-109); Globulin 1.9 g/dL (1.6-3.3); Glucose 135 mg/dL (70-110); Magnesium 1.8 mg/dL (1.5-2.4); Potassium 3.2 mmol/L (3.5-5.5); Sodium 138 mmol/L (135-145); Total Bilirubin 0.4 mg/dL (0.3-1.2); Total Protein 4.7 g/dL (6.2-8.2)
[2023-10-26] MEDS ORDERED: Potassium Replacement Protocol 1 EACH MISC MISCELLANE PRN (11:16)
[2023-10-26 12:07] LABS: Glucose,Whole Blood 131 mg/dL (70-110)
[2023-10-26] MEDS: MAGNESIUM SULFATE-D5W PMX 1 GM in DEXTROSE/WATER 1 100ML.BAG IVPB ONE (12:25)
[2023-10-26] MEDS: POTASSIUM BICARBONATE/CIT AC 20 MEQ TABLET.EFF NG-TUBE SCH (12:25)
--- NOTE | 2023-10-26 12:53 | P.PN ---
Subjective Progress Note Date: 10/26/23 patient [place] stable. He has tolerated tube feeds On exam vital signs appear stable. Abdomen soft. Failure to thrive with esophageal dysmotility and protein calorie malnutrition. Patient will continue receive tube feeds. Objective - Vital Signs Vital signs: Vital Signs Temp 97.9 F 10/26/23 12:05 Pulse 98 10/26/23 12:05 Resp 16 10/26/23 12:05 BP 119/81 10/26/23 12:05 Pulse Ox 95 10/26/23 12:05 FiO2 Intake & Output 10/25/23 10/26/23 10/26/23 18:59 06:59 18:59 Intake Total 270.573 612 Output Total 650 1300 Balance -379.427 -688 Weight 49 kg Intake: Intake, IV Titration 94.573 Amount Heparin Sod,Pork in 0.45% 94.573 NaCl 25,000 unit In 0.45 % NaCl 1 250ml.bag @ 12 UNITS/KG/HR 4.92 mls/hr IV .Q24H [facility] Rx#: [id number] Tube Feeding 176 612 Output: Urine 650 1300 Stool 0 Other: Voiding Method Urinal Urinal - Labs CBC & Chem 7: 10/26/23 07:41 10/26/23 07:41 Labs: Abnormal Lab Results - Last 24 Hours (Table) 10/25/23 10/26/23 10/26/23 Range/Units 18:43 00:16 06:08 RBC (4.40-5.60) X 10*6/uL Hgb (13.0-17.0) g/dL Hct (39.6-50.0) % RDW (11.5-14.5) % NRBC/100 WBC Diff (0.00-0.01) X 10*3/uL Potassium (3.5-5.5) mmol/L Anion Gap (4.00-12.00) mmol/L BUN (9.0-27.0) mg/dL Creatinine (0.6-1.5) mg/dL Glucose (70-110) mg/dL POC Glucose (mg/dL) 137 H 132 H 144 H (70-110) mg/dL Calcium (8.7-10.3) mg/dL Total Protein (6.2-8.2) g/dL Albumin (3.8-4.9) g/dL Albumin/Globulin Ratio (1.60-3.17) Ratio 10/26/23 10/26/23 10/26/23 Range/Units 07:41 07:41 12:06 RBC 3.43 L (4.40-5.60) X 10*6/uL Hgb 10.8 L (13.0-17.0) g/dL Hct 31.9 L (39.6-50.0) % RDW 16.4 H (11.5-14.5) % NRBC/100 WBC Diff 0.06 H (0.00-0.01) X 10*3/uL Potassium 3.2 L (3.5-5.5) mmol/L Anion Gap 12.60 H (4.00-12.00) mmol/L BUN 7.7 L (9.0-27.0) mg/dL Creatinine 0.5 L (0.6-1.5) mg/dL Glucose 135 H (70-110) mg/dL POC Glucose (mg/dL) 131 H (70-110) mg/dL Calcium 7.8 L (8.7-10.3) mg/dL Total Protein 4.7 L (6.2-8.2) g/dL Albumin 2.8 L (3.8-4.9) g/dL Albumin/Globulin Ratio 1.47 L (1.60-3.17) Ratio
[2023-10-26 13:01] LABS: Basophils # (M) 0 X 10*3/uL (0.00-0.10); Neutrophils % (M) 90 %
[2023-10-26 13:09] VITALS: BP 119/81; PULSE 98; RESP 16; TEMP 97.9
--- NOTE | 2023-10-26 14:25 | P.DS ---
Providers Date of admission: 10/17/23 19:05 Expected date of discharge: 10/26/23 Attending physician: Magda Bowie Consults: 10/18/23 10:17 Consult Physician Routine Consulting Provider: Rickie Pavon Consult Reason/Comments: vomiting, pt is back with similar s/s Do you want consulting provider notified?: Yes Primary care physician: Misael Hopkins Hospital Course: Final diagnosis Recurrent nausea vomiting suspected to esophageal dysmotility disorder with possible elements of esophagitis/GERD and possible small residual paraesophageal hiatal hernia, status post PEG tube placement on 10/23/2023 Recurrent nausea vomiting most likely secondary to above Severe calorie protein malnutrition with a BMI of 13.6 Right upper extremity redness and swelling, positive for DVT as noted on Doppler, improving Diabetes mellitus Hypertension Hyperlipidemia History of stroke History of coronary artery disease s/p cardiac cath Rheumatoid arthritis Previous cholecystectomy History of GERD paraesophageal hiatal hernia repair with Frederick fundoplication on 09/2023. His surgeon is Dr. Pavon GI prophylaxis DVT prophylaxis Full code Discharge disposition Patient is being discharged in a stable condition with guarded prognosis to [facility]. Patient will follow-up with Dr. Hopkins in the outpatient setting upon discharge. Patient is to continue with tube feeds and outpatient follow-up with general surgery as scheduled. Total time taken is greater than 35 minutes. Hospital course This is a 67-year-old male who was recently admitted with recurrent nausea and vomiting likely secondary to esophageal dysmotility with chronic esophagitis and GERD. Patient is a recent paraesophageal hiatal hernia repair in September with general surgery and has been having frequent rehospitalization's and generalized decline regarding oral intake. Patient with severe protein calorie malnutrition and ongoing inability to tolerate oral intake with significant muscle wasting and weakness noted has received a PEG tube this admission. Patient is maintained on tube feeds and current goal is 22 which he is achieving and tolerating thus far. Patient to continue with aspiration precautions and head of bed elevated 30 to 45 degrees and monitoring for residuals. Patient with significant weakness evaluated by physical therapy recommending rehab and will be going to [facility]. Insurance authorization was obtained the patient will be discharged today. Patient had right upper extremity swelling noted and underwent venous Doppler which was positive for DVT. Patient initiated on hep casey and has been transitioned to Eliquis. Patient will continue 10 mg twice daily for the next 6 days and then titrate to 5 mg twice daily thereafter. Continue to encourage elevating right upper extremity on pillows while at rest. Patient has been instructed to follow-up with primary care provider as well as general surgery outpatient. Please refer to other consultation notes for further HPI. Currently no reports of chest pain, shortness of breath, or palpitations. Patient is afebrile. reports of continued occasional nausea and patient is tolerating tube feeds. Patient will be going to [facility] today. Guarded prognosis and high risk for readmission Physical exam: Gen: This is a 67-year-old male who is awake, alert and oriented x 3, thin built, elderly appearing, wasting noted HEENT: Head is atraumatic, normocephalic. Pupils equal, round. Sclerae is anicteric. NECK: Supple. No JVD. No lymphadenopathy. No thyromegaly. LUNGS: Diminished breath sounds bilaterally with some scattered rhonchi noted. No intercostal retractions. HEART: Regular rate and rhythm. No murmur. ABDOMEN: Soft. Thin. Bowel sounds are present. No masses. No tenderness. PEG tube noted EXTREMITIES: No pedal edema. No calf tenderness. NEUROLOGICAL: Patient is awake, alert and oriented x3. Cranial nerves 2 through 12 are grossly intact. Diffusely weak Please refer to medication reconciliation sheet for a list of medications. The impression and plan of care has been dictated by Yanira Linda, Nurse Practitioner as directed. Dr. Bentley MD I have performed a history and examination and MDM of this patient, discussed the same with the dictator, and agree with the dictator's assessment and plan as written ,documented as a scribe. Based on total visit time, I have performed more than 50% of the visit. Patient Condition at Discharge: Fair Plan - Discharge Summary Discharge Rx Participant: No New Discharge Prescriptions: New Pantoprazole [Protonix] 40 mg PEG/G-TUBE DAILY #60 tab Apixaban Initiation Dose--VTE [Eliquis Initiation Dosing for VTE Treatment] See Taper PO BID #60 tab HYDROcodone/APAP 5-325MG [[place] 5-325] 1 each PO Q6HR PRN #4 tab PRN Reason: Pain Albuterol Nebulized [Ventolin Nebulized] 2.5 mg INHALATION RT-Q4H PRN ml PRN Reason: Shortness Of Breath Continue busPIRone HCL [Buspar] 7.5 mg PO BID Albuterol Inhaler [Ventolin Hfa Inhaler] 2 puff INHALATION RT-Q4H PRN PRN Reason: Shortness Of Breath Omeprazole 20 mg PO BID Sertraline [Zoloft] 25 mg PO DAILY Nitroglycerin Sl Tabs [Nitrostat] 0.4 mg SUBLINGUAL Q5M PRN PRN Reason: Chest Pain Ondansetron Odt [Zofran ODT] 4 mg PO Q8HR PRN #9 tab PRN Reason: Nausea Discontinued HYDROcodone/APAP 5-325MG [[place] 5-325] 1 tab PO Q6HR PRN 2 Days #8 tab PRN Reason: Pain Discharge Medication List Nitroglycerin Sl Tabs [Nitrostat] 0.4 mg SUBLINGUAL Q5M PRN 08/08/23 [History] Sertraline [Zoloft] 25 mg PO DAILY 08/08/23 [History] busPIRone HCL [Buspar] 7.5 mg PO BID 08/08/23 [History] Albuterol Inhaler [Ventolin Hfa Inhaler] 2 puff INHALATION RT-Q4H PRN 09/25/23 [History] Omeprazole 20 mg PO BID 10/06/23 [History] Ondansetron Odt [Zofran ODT] 4 mg PO Q8HR PRN #9 tab 10/10/23 [Rx] Apixaban Initiation Dose--VTE [Eliquis Initiation Dosing for VTE Treatment] See Taper PO BID #60 tab 10/25/23 [Rx] Albuterol Nebulized [Ventolin Nebulized] 2.5 mg INHALATION RT-Q4H PRN ml 10/26/23 [Rx] HYDROcodone/APAP 5-325MG [[place] 5-325] 1 each PO Q6HR PRN #4 tab 10/26/23 [Rx] Pantoprazole [Protonix] 40 mg PEG/G-TUBE DAILY #60 tab 10/26/23 [Rx] Follow up Appointment(s)/Referral(s): Misael Hopkins MD [Primary Care Provider] - 1-2 days Residential Home,Health [NON-STAFF] - 1 Week Activity/Diet/Wound Care/Special Instructions: [facility] tolerated Follow-up with general surgery outpatient Continue n.p.o. and tube feeds Patient is continued on Jevity 1.5 continuous and goal rate is 22 with free w ater flushes of 40 cc every 4 hours Continue with aspiration precautions with head of the bed elevated 30 to 45 degrees as well as monitoring residuals Follow-up labs in the next 2 to 3 days to monitor CBC, CMP, magnesium Discharge Disposition: TRANSFER TO SNF/ECF
[2023-10-26 16:44] LABS: Eosinophils # (M) 0.06 X 10*3/uL (0.04-0.35); Lymphocytes # (M) 0.11 X 10*3/uL (0.90-5.00); Metamyelocytes % 3 % (0-0); Monocytes # (M) 0.22 X 10*3/uL (0.20-1.00); RBC Morphology Normal (Normal)
--- NOTE | 2023-12-06 09:26 | P.OP ---
Date of Procedure: 10/24/23 Preoperative Diagnosis: protein calorie malnutrition Postoperative Diagnosis: protein calorie malnutrition Procedure(s) Performed: mony Anesthesia: MAC Surgeon: Rickie Pavon Pathology: none sent Condition: stable Disposition: PACU Description of Procedure: Tthe patient received IV sedation. Next the gastroscope placed oropharynx passed in the esophagus and stomach. There is no evidence of any outlet obstruction. Stomach was insufflated with air. The light reflux seen the anterior abdominal wall. The abdomen was prepped and draped usual fashion. The skin was incised. And the needles placed and stomach under direct visualization. The needle was snared. And the wires placed through the needle and the wire was snared and brought the oropharynx. The PEG tube was placed over top the wire brought down to the stomach. The PEG tube was secured. At the 3 cm franck. The one-piece bolster was used. Patient tolerated procedure well.
== END 2023-10-26 16:20 | DRG 391 ==
LOC: EC 13:44 → 3SCARD 19:04 → OBSVTOIN 19:05 → 3SCARD 22:38 → 5NMEDONC 10-18 15:27
PROVIDERS: ADMIT Hospitalist; ATTEND Hospitalist
PROC: 0D9670Z Drainage of Stomach with Drainage Device, Via Natural or Artificial Opening (ICD-10-PCS; principal; 2023-10-17)
PROC: 05HC33Z Insertion of Infusion Device into Left Basilic Vein, Percutaneous Approach (ICD-10-PCS; 2023-10-19)
PROC: 05HC33Z Insertion of Infusion Device into Left Basilic Vein, Percutaneous Approach (ICD-10-PCS; 2023-10-23 11:30)
PROC: 0DH63UZ Insertion of Feeding Device into Stomach, Percutaneous Approach (ICD-10-PCS; 2023-10-24)
DX: K22.4 Dyskinesia of esophagus (principal); E43 Unspecified severe protein-calorie malnutrition; G93.41 Metabolic encephalopathy; E87.0 Hyperosmolality and hypernatremia; E87.1 Hypo-osmolality and hyponatremia; Z68.1 Body mass index [BMI] 19.9 or less, adult; I82.621 Acute embolism and thrombosis of deep veins of right upper extremity; E86.0 Dehydration; R62.7 Adult failure to thrive; R11.2 Nausea with vomiting, unspecified; Z87.19 Personal history of other diseases of the digestive system; D64.9 Anemia, unspecified; I83.90 Asymptomatic varicose veins of unspecified lower extremity; M06.9 Rheumatoid arthritis, unspecified; Z87.01 Personal history of pneumonia (recurrent); E78.5 Hyperlipidemia, unspecified; I08.1 Rheumatic disorders of both mitral and tricuspid valves; Z90.49 Acquired absence of other specified parts of digestive tract; I10 Essential (primary) hypertension; I25.10 Atherosclerotic heart disease of native coronary artery without angina pectoris; K22.89 Other specified disease of esophagus; R00.0 Tachycardia, unspecified; Z86.73 Personal history of transient ischemic attack (TIA), and cerebral infarction without residual deficits; Z93.1 Gastrostomy status; Z79.899 Other long term (current) drug therapy
CPT/HCPCS: 36410; 36415; 43246; 71045; 71046; 76937; 80048; 80053; 81001; 83605; 83735; 84132; 84484; 85025; 85027; 85610; 85730; 93005; 94640; 96361; 96374; 96375; 99285

== ENCOUNTER 2023-10-29 10:34 | Emergency (ER) | payer MEDICARE ==
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
[2023-10-29 12:28] LABS: Anisocytosis Slight; Basophils % (A) 0 %; Eosinophils % (A) 0 %; HCT 36.8 % (39.0-53.0); HGB 11.8 gm/dL (13.0-17.5); Lymphocytes # (A) 0.5 k/uL (1.0-4.8); Lymphocytes % (A) 8 %; MCH 31.4 pg (25.0-35.0); MCHC 32.2 g/dL (31.0-37.0); MCV 97.6 fL (80.0-100.0); Macrocytosis Slight; Mean Platelet Volume 8.8; Monocytes # (A) 0.2 k/uL (0-1.0); Monocytes % (A) 3 %; Neutrophils # (A) 5.8 k/uL (1.3-7.7); Neutrophils % (A) 87 %; Platelet Count 242 k/uL (150-450); RBC 3.77 m/uL (4.30-5.90); RDW 16.4 % (11.5-15.5); WBC 6.6 k/uL (3.8-10.6)
[2023-10-29 12:39] LABS: ALT 18 U/L (4-49); AST 25 U/L (17-59); African American GFR (CKD) >90 (>60 ml/min/1.73 sqM); Albumin 2.7 g/dL (3.5-5.0); Alkaline Phosphatase 110 U/L (38-126); Anion Gap 1 mmol/L; Blood Urea Nitrogen 18 mg/dL (9-20); Calcium 8.4 mg/dL (8.4-10.2); Carbon Dioxide 36 mmol/L (22-30); Chloride 99 mmol/L (98-107); Glucose 113 mg/dL (74-99); Magnesium 1.8 mg/dL (1.6-2.3); Non-African American GFR(CKD) >90 (>60 ml/min/1.73 sqM); Potassium 4.6 mmol/L (3.5-5.1); Sodium 136 mmol/L (137-145); Total Bilirubin 0.5 mg/dL (0.2-1.3); Total Protein 5.2 g/dL (6.3-8.2)
[2023-10-29 12:41] LABS: Appearance,Urine Clear (Clear); Bacteria,Urine Rare /hpf; Bilirubin,Urine Negative (Negative); Blood,Urine Negative (Negative); Calcium Oxalate Crystals,Urine Few /hpf; Color,Urine Yellow; Glucose,Urine (UA) Negative (Negative); Hyaline Casts,Urine 1 /lpf (0-2); Ketones,Urine Negative (Negative); Leukocyte Esterase,Urine Negative (Negative); Mucus,Urine Moderate /hpf; Nitrite,Urine Negative (Negative); PH, Urine 8.5 (5.0-8.0); Protein,Urine 1+ (Negative); WBC,Urine 1 /hpf (0-5)
[2023-10-29 12:49] LABS: NT-Pro-B-Type Natriuretic Pept 933 pg/mL
[2023-10-29 12:50] LABS: INR 0.9 (<1.2); Partial Thromboplastin Time 25.5 sec (22.0-30.0); Prothrombin Time 10.4 sec (10.0-12.5)
--- NOTE | 2023-10-29 12:50 | XR ---
EXAMINATION TYPE: XR chest 2V DATE OF EXAM: 10/29/2023 COMPARISON: 10/26/2023 INDICATION: Difficulty breathing TECHNIQUE: Frontal and lateral views of the chest are obtained. FINDINGS: The heart size is normal. The pulmonary vasculature is normal. The lungs are clear. Prior right acromioclavicular junction surgery is evident. There is hypertrophy of the left acromioclavicular junction. IMPRESSION: 1. No acute pulmonary process.
[2023-10-29] MEDS: ONDANSETRON 4 MG/2 ML VIAL IVP STA (14:05)
[2023-10-29] MEDS: SODIUM CHLORIDE 0.9% 1,000 ML IV STA (14:05)
--- NOTE | 2023-10-29 14:09 | CT ---
CTA CHEST EXAMINATION TYPE: CT chest angio for PE DATE OF EXAM: 10/29/2023 INDICATION: ZENAIDA, DVT right arm CT DLP: 252.4 mGycm, Automated exposure control for dose reduction was used. CONTRAST: Patient injected with 75ml mL of Isovue 370. COMPARISON: None TECHNIQUE: CT of the chest is performed on a spiral scan at 2 mm thick sections. Study is performed with intravenous contrast timed for evaluation for pulmonary embolism. This will limit additional po rtions of the evaluation. 3-D MIP images reconstructed by the technologist are reviewed on the compu ter in the coronal and sagittal planes. FINDINGS: No persistent filling defects are evident to suggest an acute pulmonary embolism. No mediastinal or hilar adenopathy enlarged by CT criteria is evident. The ascending aorta diameter at the level of the main pulmonary artery is 3.6 cm. The main pulmonary artery diameter at the bifurcation is 2.3 cm. Fluid-filled esophagus. Lung windows are clear. There is debris and/or mucus within the trachea and right mainstem bronchus. There appears to be increased soft tissue which appears to track with pulmonary veins extending to th e right inferior lung field. Underlying lymph nodes are not identified. No obstructive vessels are ev ident. Limited CT sections were through the upper abdomen. Upper abdomen appears unremarkable. IMPRESSION: 1. No acute pulmonary embolism. 2. No acute pulmonary process radiographically evident. 3. Mucus and/or debris within the distal right lateral trachea extending into the right main bronchus .
[2023-10-29] MEDS: ONDANSETRON 4 MG ODT STARTER PACK 2 TAB BTL PO STA (16:47)
[2023-10-29 18:35] VITALS: BP 137/99; PULSE 105; RESP 16; TEMP 98.3
== END 2023-10-29 18:02 | disposition home or self-care (01) ==
LOC: EC 10:34
DX: R06.02 Shortness of breath (principal); R11.2 Nausea with vomiting, unspecified; R00.0 Tachycardia, unspecified; F17.200 Nicotine dependence, unspecified, uncomplicated
CPT/HCPCS: 36415; 93005; 83880; 80053; 83605; 83735; 84484; 85025; 85610; 85730; 81001; 87636; 71046; 71275; 99285; 96374; 96361 ×3; J2405; S0119; Q9967

== ENCOUNTER 2023-11-03 09:11 | Inpatient (IN) | payer MEDICARE ==
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
[2023-11-03] MEDS: ONDANSETRON 4 MG/2 ML VIAL IVP STA (10:20)
[2023-11-03] MEDS: SODIUM CHLORIDE 0.9% 1,000 ML IV STA (10:21)
[2023-11-03] MEDS: PANTOPRAZOLE 40 MG/10 ML VIAL IVP STA (10:21)
[2023-11-03 10:26] LABS: Anisocytosis Slight; Basophils % (A) 0 %; Eosinophils % (A) 1 %; HCT 32.6 % (39.0-53.0); HGB 10.4 gm/dL (13.0-17.5); Lymphocytes # (A) 0.4 k/uL (1.0-4.8); Lymphocytes % (A) 5 %; MCH 31.2 pg (25.0-35.0); MCHC 31.9 g/dL (31.0-37.0); MCV 97.6 fL (80.0-100.0); Macrocytosis Slight; Mean Platelet Volume 8.9; Monocytes # (A) 0.4 k/uL (0-1.0); Monocytes % (A) 5 %; Neutrophils # (A) 6.7 k/uL (1.3-7.7); Neutrophils % (A) 87 %; Platelet Count 348 k/uL (150-450); RBC 3.34 m/uL (4.30-5.90); RDW 16.8 % (11.5-15.5); WBC 7.7 k/uL (3.8-10.6)
[2023-11-03 10:44] LABS: INR 0.9 (<1.2); Partial Thromboplastin Time 25.5 sec (22.0-30.0)
[2023-11-03 10:52] LABS: ALT 21 U/L (4-49); AST 23 U/L (17-59); African American GFR (CKD) >90 (>60 ml/min/1.73 sqM); Albumin 2.8 g/dL (3.5-5.0); Alkaline Phosphatase 110 U/L (38-126); Amylase 80 U/L (30-110); Anion Gap 1 mmol/L; Blood Urea Nitrogen 13 mg/dL (9-20); Calcium 8.3 mg/dL (8.4-10.2); Carbon Dioxide 35 mmol/L (22-30); Chloride 102 mmol/L (98-107); Glucose 109 mg/dL (74-99); Lipase 381 U/L (23-300); Non-African American GFR(CKD) >90 (>60 ml/min/1.73 sqM); Potassium 3.5 mmol/L (3.5-5.1); Sodium 138 mmol/L (137-145); Total Bilirubin 0.4 mg/dL (0.2-1.3); Total Protein 5.3 g/dL (6.3-8.2)
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
[2023-11-03] MEDS ORDERED: NALOXONE 0.4 MG/ML 1 ML VIAL IV PRN (13:19)
[2023-11-03] MEDS ORDERED: MORPHINE SULFATE 4 MG/ML SYRINGE IV PRN (13:24)
[2023-11-03] MEDS ORDERED: bisacodyL 10 MG SUPP RECTAL PRN (13:25)
[2023-11-03] MEDS ORDERED: ALBUTEROL NEBULIZED 2.5 MG/3 ML INHALATION PRN (13:25)
[2023-11-03] MEDS ORDERED: MAGNESIUM HYDROXIDE 2,400 MG/30 ML CUP PEG/G-TUBE PRN (13:25)
[2023-11-03] MEDS: PANTOPRAZOLE 40 MG/10 ML VIAL IV SCH (13:30)
[2023-11-03] MEDS: NON FORMULARY DRUG (Jevity 1.5 Cal Liquid 1,000 ML Ml) PEG/G-TUBE SCH (13:37)
[2023-11-03] MEDS: SODIUM CHLORIDE 0.9% 1,000 ML IV SCH (14:05)
[2023-11-03] MEDS ORDERED: NA PHOS,M-B/NA PHOS,DI-BA 133 ML ENEMA RECTAL PRN (15:27)
--- NOTE | 2023-11-03 16:22 | XR ---
EXAMINATION TYPE: XR chest 1V portable DATE OF EXAM: 11/03/2023 Comparison: 10/29/2023 Clinical History: 67-year-old male CHF Findings: Heart normal in size. Mildly tortuous thoracic aorta. Hyperinflation. No consolidation or pleural eff usion seen. Impression: COPD. No overt CHF.
[2023-11-03] MEDS: busPIRone HCl 5 MG TAB PEG/G-TUBE SCH (18:43)
[2023-11-03] MEDS: ONDANSETRON 4 MG/2 ML VIAL IVP PRN (18:51)
--- NOTE | 2023-11-03 20:20 | HP ---
HISTORY AND PHYSICAL CHIEF COMPLAINT: Vomiting. HISTORY OF PRESENT ILLNESS: This is a 67-year-old gentleman with a past medical history of multiple medical problems, who was recently discharged from the hospital with recurrent nausea, vomiting, suspected esophageal dysmotility syndrome with possible elements of esophageal GERD. The patient also had a PEG tube placed. The patient also had severe protein-calorie malnutrition. Currently, the patient is complaining of vomiting. Because of continued nausea, the patient was admitted for further evaluation and treatment. Evaluation of the basic labs showed some anemia and as well as hypoalbuminemia. Lipase is elevated. There is no history of any fever, rigors, or chills at this time. PAST MEDICAL HISTORY: History of CAD, asthma, hypertension, hyperlipidemia. The rest of the history and rest of the chart is also reviewed. HOME MEDICATIONS: Reviewed include Zofran, doses and rest of medications reviewed. ALLERGIES: None. FAMILY HISTORY: History of aneurysm. SOCIAL HISTORY: Smoking, THC. REVIEW OF SYSTEMS: A 14-point review is negative except as mentioned earlier. PHYSICAL EXAMINATION: VITAL SIGNS: Pulse is 97, blood pressure 139/102, respirations 16. HEENT: Conjunctivae normal. NECK: No JVD. CARDIOVASCULAR: S1, S2. RESPIRATIONS: Breath sounds diminished at the bases. A few scattered rhonchi and crackles. ABDOMEN: Soft, scaphoid. PEG tube in place. Minimal tenderness. No guarding. No mass. Bowel sounds present. No ascites. LEGS: No edema. NERVOUS SYSTEM: Diffusely weak and emaciated. LABORATORY DATA: WBC 7.4, hemoglobin 10.4. ASSESSMENT: 1. Severe nausea with possible acute on chronic gastroparesis. 2. Severe malnutrition, status post PEG tube placement. 3. Hypertension accelerated. 4. Asthma. 5. History of coronary artery disease. 6. Hyperlipidemia. 7. History of rheumatoid arthritis. 8. Multiple complex medical issues. RECOMMENDATIONS AND DISCUSSION: This is a 67-year-old gentleman, who presented with multiple complex medical issues, we will monitor the patient closely. Symptomatic treatment will be provided. I would also recommend surgical evaluation, otherwise I would aggressively treat high blood pressure. Resume the home medications. Hydralazine p.r.n. can be given. Prognosis guarded. Further recommendations to follow. A copy of this dictation forwarded to Dr. Hopkins, who is the primary physician. MMODL / IJN: [id number] /
[2023-11-03] MEDS ORDERED: HEPARIN SODIUM,PORCINE 5,000 UNIT/ML 1 ML VIAL SQ SCH (21:00)
[2023-11-03] MEDS: PANTOPRAZOLE 40 MG/10 ML VIAL IVP SCH (21:39)
[2023-11-03] MEDS: APIXABAN 5 MG TAB PEG/G-TUBE SCH (21:41)
[2023-11-03] MEDS: HYDROcodone/APAP 5-325MG 1 EACH TAB PEG/G-TUBE PRN (23:35)
[2023-11-04] MEDS: SERTRALINE 25 MG TAB PEG/G-TUBE SCH (08:18)
[2023-11-04 09:42] LABS: Basophils # (A) 0.02 X 10*3/uL (0.00-0.10); Basophils % (A) 0.2 %; Eosinophils # (A) 0.02 X 10*3/uL (0.04-0.35); Eosinophils % (A) 0.2 %; HCT 32.7 % (39.6-50.0); HGB 10.5 g/dL (13.0-17.0); Lymphocytes # (A) 0.36 X 10*3/uL (0.90-5.00); Lymphocytes % (A) 3.6 %; MCH 31.5 pg (27.0-32.0); MCHC 32.1 g/dL (32.0-37.0); MCV 98.2 FL (80.0-97.0); Monocytes # (A) 0.32 X 10*3/uL (0.20-1.00); Monocytes % (A) 3.2 %; NRBC Per 100 WBC 0 X 10*3/uL (0.00-0.01); Neutrophils # (A) 9.35 X 10*3/uL (1.80-7.70); Neutrophils % (A) 92.4 %; Platelet Count 353 X 10*3/uL (140-440); RBC 3.33 X 10*6/uL (4.40-5.60); RDW 17.6 % (11.5-14.5); WBC 10.11 X 10*3/uL (4.50-10.00)
[2023-11-04 09:44] LABS: Amylase 79 U/L (23-121); Lipase 24 U/L (14-60)
[2023-11-04 10:10] LABS: ALT 22 U/L (10-49); AST 27 U/L (14-35); Albumin 2.7 g/dL (3.8-4.9); Albumin/Globulin Ratio 1.29 Ratio (1.60-3.17); Alkaline Phosphatase 99 U/L (41-126); Blood Urea Nitrogen 10.2 mg/dL (9.0-27.0); Calcium 8.3 mg/dL (8.7-10.3); Carbon Dioxide 23.6 mmol/L (21.6-31.8); Chloride 102 mmol/L (96-109); Globulin 2.1 g/dL (1.6-3.3); Glucose 76 mg/dL (70-110); Potassium 3.9 mmol/L (3.5-5.5); Sodium 139 mmol/L (135-145); Total Bilirubin 0.5 mg/dL (0.3-1.2); Total Protein 4.8 g/dL (6.2-8.2)
[2023-11-04] MEDS: HYDROmorphone 0.5 MG/0.5 ML SYRINGE IVP PRN ×2 (10:21→14:09)
--- NOTE | 2023-11-04 11:28 | P.GSCN ---
History of Present Illness Consult date: 11/04/23 Reason for Consult: N/V, history of Karissa Fundoplication and PEG tube placement History of present illness: patient is a 67-year-old male with a past medical history of Karissa fundoplication and PEG tube placement who presents with recurrent abdominal pain nausea and vomiting. Patient states that he has chronic nausea and vomiting but states that his pain and symptoms had gotten worse in the last 24-48 hours. Denies any hematemesis. Admits to flatus and bowel movements. Denies any melena or hematochezia. He states that he has only been able to tolerate minimal PO intake. No F/C. No SOB or CP. upon presentation to [facility] emergency department a CT abdomen pelvis was obtained showing evidence of potential paraesophageal hernia recurrence as well as evidence of gastritis and esophagitis. Review of Systems Negative Except for as stated above Past Medical History Past Medical History: Asthma, Coronary Artery Disease (CAD), Chest Pain / Angina, CVA/TIA, GERD/Reflux, Hyperlipidemia, Hypertension, Pneumonia, Rheumatoid Arthritis (RA) Additional Past Medical History / Comment(s): MIGRAINES, HEART MURMUR, hx HIATAL HERNIA, ANEMIA, one dr told him he had a stroke at one time-no effects, varicose veins, history of incarcerated per esophageal hernia, status post robotic-assisted paraesophageal hernia repair and Karissa fundoplication on 04/12/2022. History of Any Multi-Drug Resistant Organisms: None Reported Past Surgical History: Cholecystectomy, Heart Catheterization, Hernia Repair, Orthopedic Surgery Additional Past Surgical History / Comment(s): Lt achilles tendon,RT SHOULDER surgery, RT ACHILLES TENDON reattached, HEMORRHOIDECTOMY, 13 FATTY TUMORS removed. left hand index finger surgery after injury, EGD WITH DILATION, paraesophageal hernia repair with Karissa fundoplication on 04/12/2022. Past Anesthesia/Blood Transfusion Reactions: No Reported Reaction Additional Past Anesthesia/Blood Transfusion Reaction / Comm: no hx blood transfusion Past Psychological History: Anxiety, Depression Smoking Status: Current some day smoker - Past Family History Mother Family Medical History: Cancer Father Additional Family Medical History / Comment(s): thinks aneurysm Medications and Allergies Home Medications Medication Instructions Recorded Confirmed Type Nitroglycerin Sl Tabs [Nitrostat] 0.4 mg SUBLINGUAL Q5M PRN 08/08/23 11/03/23 History Sertraline [Zoloft] 25 mg PEG/G-TUBE DAILY@0800 08/08/23 11/03/23 History Albuterol Inhaler [Ventolin Hfa 2 puff INHALATION RT-Q4H PRN 09/25/23 11/03/23 History Inhaler] Albuterol Nebulized [Ventolin 2.5 mg INHALATION RT-Q4H PRN ml 10/26/23 11/03/23 Rx Nebulized] Apixaban Initiation Dose--VTE See Taper PEG/G-TUBE DIRECTED 10/29/23 11/03/23 History [Eliquis Initiation Dosing for VTE Treatment] HYDROcodone/APAP 5-325MG [Ardsley 1 tab PEG/G-TUBE Q6HR PRN 10/29/23 11/03/23 History 5-325] Jevity 1.5 Moe Liquid 1 dose PEG/G-TUBE CONTINUOUS 10/29/23 11/03/23 History Magnesium Hydroxide [Milk of 7,200 mg PEG/G-TUBE DAILY PRN 10/29/23 11/03/23 History Magnesia Concentrate] Na Phos,M-B/Na Phos,Di-Ba [Fleet 133 ml RECTAL DAILY PRN 10/29/23 11/03/23 History Adult] Pantoprazole [Protonix] 40 mg PEG/G-TUBE DAILY@0800 10/29/23 11/03/23 History bisacodyL [Dulcolax] 10 mg RECTAL DAILY PRN 10/29/23 11/03/23 History busPIRone HCl [Buspar] 5 mg PEG/G-TUBE BID@0800,1700 10/29/23 11/03/23 History Menthol/Zinc Oxide [Calprotect 1 applic TOPICAL TID 11/03/23 11/03/23 History 0.44%-20.6% Oint] Ondansetron Odt [Zofran ODT] 4 mg SUBLINGUAL Q8HR PRN 11/03/23 11/03/23 History Allergies Allergy/AdvReac Type Severity Reaction Status Date / Time No Known Allergies Allergy Verified 11/03/23 10:11 Surgical - Exam Vital Signs Temp Pulse Resp BP Pulse Ox 97.9 F 94 18 142/105 98 11/03/23 09:12 11/03/23 09:12 11/03/23 09:12 11/03/23 09:12 11/03/23 09:12 - General Gen: AxO, NAD Pulm: non-labored respirations Abd: soft, mildly tender around epigastrium. Non-distended. No guar ding/rebound/rigidity PEG: C/D/I Extrem: no edema seen Results - Labs 11/04/23 06:24 11/04/23 06:24 Abnormal Lab Results - Last 24 Hours (Table) 11/04/23 11/04/23 Range/Units 06:24 06:24 WBC 10.11 H (4.50-10.00) X 10*3/uL RBC 3.33 L (4.40-5.60) X 10*6/uL Hgb 10.5 L (13.0-17.0) g/dL Hct 32.7 L (39.6-50.0) % MCV 98.2 H (80.0-97.0) FL RDW 17.6 H (11.5-14.5) % Neutrophils # 9.35 H (1.80-7.70) X 10*3/uL Lymphocytes # 0.36 L (0.90-5.00) X 10*3/uL Eosinophils # 0.02 L (0.04-0.35) X 10*3/uL Anion Gap 13.40 H (4.00-12.00) mmol/L Creatinine 0.4 L (0.6-1.5) mg/dL BUN/Creatinine Ratio 25.50 H (12.00-20.00) Ratio Calcium 8.3 L (8.7-10.3) mg/dL Total Protein 4.8 L (6.2-8.2) g/dL Albumin 2.7 L (3.8-4.9) g/dL Albumin/Globulin Ratio 1.29 L (1.60-3.17) Ratio Diabetes panel 11/04/23 Range/Units 06:24 Sodium 139 (135-145) mmol/L Potassium 3.9 (3.5-5.5) mmol/L Chloride 102 (96-109) mmol/L Carbon Dioxide 23.6 (21.6-31.8) mmol/L BUN 10.2 (9.0-27.0) mg/dL Creatinine 0.4 L (0.6-1.5) mg/dL Glucose 76 (70-110) mg/dL Calcium 8.3 L (8.7-10.3) mg/dL AST 27 (14-35) U/L ALT 22 (10-49) U/L Alkaline Phosphatase 99 (41-126) U/L Total Protein 4.8 L (6.2-8.2) g/dL Albumin 2.7 L (3.8-4.9) g/dL Calcium panel 11/04/23 Range/Units 06:24 Calcium 8.3 L (8.7-10.3) mg/dL Albumin 2.7 L (3.8-4.9) g/dL Pituitary panel 11/04/23 Range/Units 06:24 Sodium 139 (135-145) mmol/L Potassium 3.9 (3.5-5.5) mmol/L Chloride 102 (96-109) mmol/L Carbon Dioxide 23.6 (21.6-31.8) mmol/L BUN 10.2 (9.0-27.0) mg/dL Creatinine 0.4 L (0.6-1.5) mg/dL Glucose 76 (70-110) mg/dL Calcium 8.3 L (8.7-10.3) mg/dL Adrenal panel 11/04/23 Range/Units 06:24 Sodium 139 (135-145) mmol/L Potassium 3.9 (3.5-5.5) mmol/L Chloride 102 (96-109) mmol/L Carbon Dioxide 23.6 (21.6-31.8) mmol/L BUN 10.2 (9.0-27.0) mg/dL Creatinine 0.4 L (0.6-1.5) mg/dL Glucose 76 (70-110) mg/dL Calcium 8.3 L (8.7-10.3) mg/dL Total Bilirubin 0.5 (0.3-1.2) mg/dL AST 27 (14-35) U/L ALT 22 (10-49) U/L Alkaline Phosphatase 99 (41-126) U/L Total Protein 4.8 L (6.2-8.2) g/dL Albumin 2.7 L (3.8-4.9) g/dL Assessment and Plan Assessment: Patient is a 67M with a PMH of [facility] s/p hiatal hernia repair and karissa fundoplication with PEG placement who presents with N/V. Plan: -NPO -IVF -PRN pain and nausea control -IV PPI -DVT PPx -No acute surgical intervention; will consider potential EGD in next 24-48 hours Sandoval Sparks MD General Surgery
[2023-11-04] MEDS: PIPERACILLIN-TAZOBACTAM 3.375 GM in SODIUM CHLORIDE 0.9% 100 ML IVPB SCH (14:10)
[2023-11-04] MEDS: ALBUTEROL HFA INHALER INHALATION PRN (16:03)
[2023-11-04 20:10] LABS: Glucose,Whole Blood 80 mg/dL (70-110)
[2023-11-04] MEDS: hydrALAZINE HCL 20 MG/ML 1 ML VIAL IVP PRN (20:58)
--- NOTE | 2023-11-04 21:05 | PN ---
PROGRESS NOTE DATE OF SERVICE: 11/04/2023 SUBJECTIVE: This is a 67-year-old gentleman, who was admitted with significant abdominal symptoms, had a PEG tube placement. The patient also had a history of Frederick fundoplication also. The patient complains of abdominal pain and as well as dry heaving also. Surgery has seen the patient and recommended the patient to keep n.p.o. with IV fluids, symptomatic treatment and possibly consider EGD in the near future. There is no history of any fever, rigors, or chills. PAST MEDICAL HISTORY: Reviewed. REVIEW OF SYSTEMS: A 14-point review is negative except as mentioned earlier. CURRENT MEDICATIONS: Reviewed include IV Protonix. OBJECTIVE: VITAL SIGNS: Pulse is 126, blood pressure 110/81, respirations 20. HEENT: Conjunctivae normal. NECK: No JVD. CARDIOVASCULAR: S1, S2. RESPIRATIONS: Breath sounds diminished at the bases. A few scattered rhonchi and crackles. ABDOMEN: Soft, nontender. LEGS: No edema. NERVOUS SYSTEM: Nonfocal. LABORATORY DATA: WBC 10.11, otherwise rest of the labs are noted. Chest x-ray, which I reviewed personally is within normal limits. Abdominopelvic CAT scan was also reviewed, possibly some mild infiltrate in the right lower part. ASSESSMENT: 1. Severe nausea and possible acute on chronic gastritis and vomiting. 2. Severe malnutrition, status post PEG tube placement. 3. History of Frederick fundoplication. 4. Hypertension accelerated. 5. Elevated WBC. 6. Asthma. 7. Possible right lower lobe infiltrate and pneumonia, consider aspiration. 8. History of coronary artery disease. 9. Hyperlipidemia. 10.History of rheumatoid arthritis. 11.Multiple complex medical issues. RECOMMENDATIONS AND DISCUSSION: Recommend to continue current management and continue symptomatic treatment. I recommend a course of empiric antibiotics. Obtain cultures. Procalcitonin. Resume the home medications. Surgical evaluation noted. At this time, I would recommend to continue the n.p.o., aspiration precautions and once the patient is stabilized, possible EGD and resume the tube feeds. Prognosis extremely guarded because of multiple complex medical issues. Further recommendations to follow. Continue the Eliquis for now. See orders for further details. MMODL / IJN: [id number] /
--- NOTE | 2023-11-05 07:09 | XR ---
EXAMINATION TYPE: XR chest 1V portable DATE OF EXAM: 11/05/2023 COMPARISON: 11/03/2023 HISTORY: CHF TECHNIQUE: Single frontal view of the chest is obtained. FINDINGS: There is a suggestion of mild hyperinflation consistent with COPD. The lungs are clear and there is no consolidative or masslike opacity. There is no pleural effusion or pneumothorax. Heart size is normal and the pulmonary vasculature is not congested. There are postsurgical changes involving the right AC joint. Probable chronic rotator cuff tears in both shoulders. IMPRESSION: 1. No acute cardiopulmonary disease or CHF. 2. Probable mild COPD. 3. Probable chronic bilateral rotator cuff tears. 4. No significant interval change compared to previous
[2023-11-05 09:10] LABS: HCT 28.7 % (39.6-50.0); HGB 9.1 g/dL (13.0-17.0); MCH 31.4 pg (27.0-32.0); MCHC 31.7 g/dL (32.0-37.0); NRBC Per 100 WBC 0 X 10*3/uL (0.00-0.01); Platelet Count 398 X 10*3/uL (140-440); RDW 17.7 % (11.5-14.5); WBC 8.83 X 10*3/uL (4.50-10.00)
[2023-11-05 09:11] LABS: Basophils # (A) 0.01 X 10*3/uL (0.00-0.10); Basophils % (A) 0.1 %; Eosinophils # (A) 0.02 X 10*3/uL (0.04-0.35); Eosinophils % (A) 0.2 %; Lymphocytes # (A) 0.61 X 10*3/uL (0.90-5.00); Lymphocytes % (A) 6.9 %; Monocytes # (A) 0.41 X 10*3/uL (0.20-1.00); Monocytes % (A) 4.6 %; Neutrophils # (A) 7.74 X 10*3/uL (1.80-7.70); Neutrophils % (A) 87.7 %
[2023-11-05 09:39] LABS: ALT 36 U/L (10-49); AST 34 U/L (14-35); Albumin 2.6 g/dL (3.8-4.9); Albumin/Globulin Ratio 1.37 Ratio (1.60-3.17); Alkaline Phosphatase 133 U/L (41-126); Blood Urea Nitrogen 17.3 mg/dL (9.0-27.0); Calcium 8.5 mg/dL (8.7-10.3); Carbon Dioxide 24.2 mmol/L (21.6-31.8); Chloride 103 mmol/L (96-109); Globulin 1.9 g/dL (1.6-3.3); Glucose 77 mg/dL (70-110); Potassium 3.5 mmol/L (3.5-5.5); Sodium 141 mmol/L (135-145); Total Bilirubin 0.5 mg/dL (0.3-1.2); Total Protein 4.5 g/dL (6.2-8.2)
[2023-11-05] MEDS: ONDANSETRON 4 MG/2 ML VIAL IVP PRN (12:46)
--- NOTE | 2023-11-05 12:57 | P.PN ---
Subjective Progress Note Date: 11/05/23 patient has had poor oral intake. He has had complaints of nausea. He is ashen had some emesis. On exam vital signs are stable. Abdomen soft. The patient will be scheduled for [facility] bowel follow-through to evaluate for possible distal obstruction. Objective - Vital Signs Vital signs: Vital Signs Temp 97.8 F 11/05/23 08:09 Pulse 97 11/05/23 08:09 Resp 17 11/05/23 08:09 BP 137/88 11/05/23 08:09 Pulse Ox 98 11/05/23 08:09 FiO2 Intake & Output 11/04/23 11/05/23 11/05/23 18:59 06:59 18:59 Output Total 250 Balance -250 Weight 50.666 kg 50.666 kg Output: Urine 250 Other: Voiding Method Toilet Urinal # Voids 1 - Labs CBC & Chem 7: 11/05/23 04:12 11/05/23 04:12 Labs: Abnormal Lab Results - Last 24 Hours (Table) 11/05/23 11/05/23 Range/Units 04:12 04:12 RBC 2.90 L (4.40-5.60) X 10*6/uL Hgb 9.1 L (13.0-17.0) g/dL Hct 28.7 L (39.6-50.0) % MCV 99.0 H (80.0-97.0) FL MCHC 31.7 L (32.0-37.0) g/dL RDW 17.7 H (11.5-14.5) % Neutrophils # 7.74 H (1.80-7.70) X 10*3/uL Lymphocytes # 0.61 L (0.90-5.00) X 10*3/uL Eosinophils # 0.02 L (0.04-0.35) X 10*3/uL Anion Gap 13.80 H (4.00-12.00) mmol/L Creatinine 0.5 L (0.6-1.5) mg/dL BUN/Creatinine Ratio 34.60 H (12.00-20.00) Ratio Calcium 8.5 L (8.7-10.3) mg/dL Alkaline Phosphatase 133 H (41-126) U/L Total Protein 4.5 L (6.2-8.2) g/dL Albumin 2.6 L (3.8-4.9) g/dL Albumin/Globulin Ratio 1.37 L (1.60-3.17) Ratio
--- NOTE | 2023-11-06 02:20 | PN ---
PROGRESS NOTE DATE OF SERVICE: 11/05/2023 SUBJECTIVE: This is a 67-year-old gentleman who was admitted abdominal pain, nausea, is improving significantly. No chest pain, no palpitation. Surgery is recommending small-bowel follow-through. OBJECTIVE: VITAL SIGNS: Pulse is 97, blood pressure 137/80, respirations 17. CHEST: Few scattered rhonchi and crackles. ABDOMEN: Soft, nontender. NERVOUS SYSTEM: Nonfocal. LABORATORY DATA: Hemoglobin 9.1. ASSESSMENT: 1. Severe nausea, possible acute on chronic gastritis and vomiting. 2. Rule out distal bowel obstruction. 3. Severe malnutrition, status post PEG tube placement. 4. History of Frederick fundoplication. 5. Hypertension, accelerated. 6. Elevated WBC. 7. Possible right lower lobe infiltrate, pneumonia, consider aspiration. 8. Multiple complex medical issues. RECOMMENDATIONS: Recommended to continue current medications, continue symptomatic treatment. Otherwise chest x-ray reviewed. Follow closely with surgery. Continue with antibiotic. Guarded prognosis because of multiple complex medical issues. Further recommendations to follow. See orders for details. MMODL / IJN: [id number] /
--- NOTE | 2023-11-06 11:03 | FL ---
EXAMINATION TYPE: FL UGI w small bowel DATE OF EXAM: 11/06/2023 10:09 AM CLINICAL INDICATION:Male, 67 years old with history of nausea vomiting; COMPARISON: 11/03/2023 TECHNIQUE: The procedure was explained and patient history elicited. All patient questions were ans wered prior to start of procedure. A vice president regulatory radiograph of the abdomen was also reviewed. Multiple flu oroscopic spot images of the esophagus, stomach and duodenum were obtained following ingestion of liq uid barium and EZ-gas crystals. After the completion of the upper gastrointestinal examination, a de tailed small bowel examination was performed. The patient was asked to ingest additional liquid karen um and incremental frontal abdominal radiographs were then taken until contrast was visualized in the cecum. Fluoroscopic time: Minute 13 seconds prior Fluoroscopic images: 0 Radiographs taken: 51 DAP: Not reported [id number] FINDINGS: Upper GI examination: The vice president regulatory abdominal radiograph demonstrates a normal bowel gas pattern without dilated loops of small or large bowel. There is no evidence for organomegaly or pneumoperitoneum. No abnormal calcificati ons. The visualized osseous structures are intact. PEG tube in place. The esophagus appears unremarkable without evidence of focal stricture, ulceration or abnormal outpou cori. No hiatal hernia was visualized. There was a patulous cardiac sphincter with free flow of co ntrast from the stomach into the lower esophagus. Limited visualization of the stomach due to early t ermination of exam. Patient unable to swallow more contrast. There is no evidence of focal gastric o r duodenal ulceration, stricture, or abnormal outpouching in the visualized portion. Small bowel muco shyanne folds are felt to be within normal limits. IMPRESSION: Early termination of the exam due to patient's unwillingness to swallow more contrast. There is evide nce of gastroesophageal reflux and patulous cardiac sphincter.
--- NOTE | 2023-11-06 17:37 | P.PN ---
Subjective Progress Note Date: 11/06/23 patient had a limited esophagram upper GI. He refused to swallow a significant amount of contrast. On his limited study there is no evidence of recurrent hiatal hernia. Patient does have some reflux. There is no sign of obstruction of the upper stomach. On exam vital signs are stable. Abdomen soft. Failure to thrive. Patient will have his tube feeds resumed. Objective - Vital Signs Vital signs: Vital Signs Temp 97.8 F 11/06/23 13:46 Pulse 104 H 11/06/23 13:46 Resp 18 11/06/23 13:46 BP 144/88 11/06/23 13:46 Pulse Ox 98 11/06/23 13:46 FiO2 21 11/06/23 09:43 Intake & Output 11/05/23 11/06/23 11/06/23 18:59 06:59 18:59 Output Total 250 350 200 Balance -250 -350 -200 Weight 50.666 kg Output: Urine 250 350 200 Other: Voiding Method Urinal - Labs CBC & Chem 7: 11/05/23 04:12 11/05/23 04:12
--- NOTE | 2023-11-06 22:21 | PN ---
PROGRESS NOTE DATE OF SERVICE: 11/06/2023 SUBJECTIVE: This 67-year-old gentleman admitted with abdominal pain, nausea, vomiting, had upper GI series and small-bowel followthrough which was terminated because the patient was not cooperative. Evidence for GERD was noted. OBJECTIVE: VITAL SIGNS: Pulse is 108, blood pressure 120/70, respirations 18. CHEST: Clear to auscultation. CARDIOVASCULAR: S1, S2. ABDOMEN: Soft. PEG tube inserted. LABORATORY DATA: Noted. ASSESSMENT: 1. Severe nausea, vomiting, possible acute on chronic gastritis and vomiting. 2. Gastroesophageal reflux disease. 3. Rule out distal bowel obstruction. 4. Severe malnutrition, status post PEG tube placement. 5. History of Frederick fundoplication. 6. Hypertension, accelerated. 7. Elevated WBC. 8. Possible right lower lobe infiltrate, pneumonia, consider aspiration. 9. Multiple complex medical issues. RECOMMENDATIONS: Recommended to continue current management, continue symptomatic treatment. Otherwise at this time closely follow with surgery. Symptomatic treatment. Guarded prognosis. Further recommendations to follow. Repeat labs will be ordered. Possible discharge in the next 24 to 48 hours. MMODL / IJN: [id number] /
[2023-11-07 05:05] LABS: Anisocytosis Slight; Basophils % (A) 0 %; Eosinophils # (A) 0.1 k/uL (0-0.7); Eosinophils % (A) 1 %; HCT 29.3 % (39.0-53.0); HGB 9.5 gm/dL (13.0-17.5); Hypochromasia Slight; Lymphocytes # (A) 0.6 k/uL (1.0-4.8); Lymphocytes % (A) 7 %; MCH 31.7 pg (25.0-35.0); MCHC 32.3 g/dL (31.0-37.0); MCV 98.1 fL (80.0-100.0); Macrocytosis Slight; Mean Platelet Volume 8.9; Monocytes # (A) 0.5 k/uL (0-1.0); Monocytes % (A) 6 %; Neutrophils # (A) 7.1 k/uL (1.3-7.7); Neutrophils % (A) 85 %; Platelet Count 433 k/uL (150-450); RBC 2.99 m/uL (4.30-5.90); RDW 16.3 % (11.5-15.5); WBC 8.4 k/uL (3.8-10.6)
[2023-11-07 05:08] LABS: African American GFR (CKD) >90 (>60 ml/min/1.73 sqM); Anion Gap 10 mmol/L; Blood Urea Nitrogen 15 mg/dL (9-20); Calcium 8.3 mg/dL (8.4-10.2); Carbon Dioxide 20 mmol/L (22-30); Chloride 111 mmol/L (98-107); Glucose 72 mg/dL (74-99); Non-African American GFR(CKD) >90 (>60 ml/min/1.73 sqM); Sodium 141 mmol/L (137-145)
--- NOTE | 2023-11-07 11:02 | P.PN ---
Subjective This is a pleasant 67 years old male with past medical history of multiple medical problems He was in the hospital about less than a month ago for hypernatremia and inability to take care of himself and eating and dysphagia and patient had PEG tube placed with hernia repair by surgery team He comes again with recurrent nausea vomiting related to GI upset. Currently patient has been followed closely by general surgery team and he remains n.p.o. He keeps having vomiting, he has an episode of vomiting this morning, it looks like it is controlled with Zofran No abdominal pain or tenderness Patient denies bowel movement for the last 2 days No chest pain or dyspnea or Abdominal complaints He is afebrile and hemodynamically stable but mildly tachycardic Labs showing unremarkable CBC except for mild anemia with hemoglobin 9.5, unremarkable BMP and liver enzymes and lipase and INR CT of the abdomen and pelvis showing postsurgical changes of hernia repair but there is right 1.9 cm lucency thought it is residual hiatal hernia and there is suspicion of distal esophagitis with circumferential wall thickening and possible enteritis as well with circumferential thickening of the ascending colon and his first part Also patient has upper GI series but could not be finished drinking the contrast well by the patient and it shows evidence of GERD as well on Protonix 40 mg IV twice daily Objective - Vital Signs Vital signs: Vital Signs Temp 97.9 F 11/07/23 07:36 Pulse 93 11/07/23 07:36 Resp 16 11/07/23 07:36 BP 146/90 11/07/23 07:36 Pulse Ox 95 11/07/23 09:31 FiO2 21 11/06/23 09:43 Intake & Output 11/06/23 11/07/23 11/07/23 18:59 06:59 18:59 Output Total 200 300 Balance -200 -300 Weight 50.666 kg Output: Urine 200 300 Other: Voiding Method Urinal - Exam -GENERAL: The patient is alert and oriented x3, not in any acute distress. Well developed, well nourished. Thin built HEENT: Pupils are round and equally reacting to light. EOMI. No scleral icterus. No conjunctival pallor. Normocephalic, atraumatic. No pharyngeal erythema. No thyromegaly. CARDIOVASCULAR: S1 and S2 present. No murmurs, rubs, or gallops. PULMONARY: Chest is clear to auscultation, no wheezing , no crackles. -ABDOMEN: Soft, nontender, nondistended, normoactive bowel sounds. No palpable organomegaly. PEG tube in place, no food is running MUSCULOSKELETAL: No joint swelling or deformity. EXTREMITIES: No cyanosis, clubbing, or pedal edema. NEUROLOGICAL: Gross neurological examination did not reveal any focal deficits. SKIN: No rashes. no petechiae. - Labs CBC & Chem 7: 11/07/23 03:23 11/07/23 03:23 Labs: Abnormal Lab Results - Last 24 Hours (Table) 11/07/23 11/07/23 Range/Units 03:23 03:23 RBC 2.99 L (4.30-5.90) m/uL Hgb 9.5 L (13.0-17.5) gm/dL Hct 29.3 L (39.0-53.0) % RDW 16.3 H (11.5-15.5) % Lymphocytes # 0.6 L (1.0-4.8) k/uL Potassium 3.0 L (3.5-5.1) mmol/L Chloride 111 H (98-107) mmol/L Carbon Dioxide 20 L (22-30) mmol/L Creatinine 0.46 L (0.66-1.25) mg/dL Glucose 72 L (74-99) mg/dL Calcium 8.3 L (8.4-10.2) mg/dL Assessment and Plan Assessment: Acute gastroenteritis Acute esophagitis with possible gastroesophageal reflux disease Suspected residual heart or hernia 1.9 cm to the right side with recently history of surgery repair of hiatal hernia Moderate calorie protein malnutrition Generalized weakness secondary to above Intra-abdominal infection is suspected Anxiety Plan: Continue with Zosyn Continue with normal saline 60 mL/h General surgery team Patient is with bowel rest, diet would be advanced per surgery team recommendation Continue with home dose of Eliquis Labs and medication were reviewed.. Continue same treatment. Continue with s ymptomatic treatment. Resume home medication. Monitor labs and vitals. DVT and GI prophylaxis. Further recommendations as per clinical course of the patient DVT prophylaxis: Eliquis GI Prophylaxis: on Protonix 40 mg IV twice daily PT/OT: Pending Prognosis is guarded
[2023-11-07] MEDS ORDERED: Potassium Replacement Protocol 1 EACH MISC MISCELLANE PRN ×2 (13:34→14:30)
[2023-11-07] MEDS ORDERED: Magnesium Replacement Protocol 1 EACH MISC MISCELLANE PRN (13:34)
--- NOTE | 2023-11-07 14:20 | P.PN ---
Subjective Progress Note Date: 11/07/23 patient states he feels better today. He wants to try tube feeds. On exam vital signs are stable. Abdomen is soft. Dysphagia with failure to thrive. Patient will resume tube feeds. Objective - Vital Signs Vital signs: Vital Signs Temp 98.2 F 11/07/23 13:22 Pulse 96 11/07/23 13:22 Resp 18 11/07/23 13:22 BP 151/98 11/07/23 13:22 Pulse Ox 99 11/07/23 13:22 FiO2 21 11/06/23 09:43 Intake & Output 11/06/23 11/07/23 11/07/23 18:59 06:59 18:59 Output Total 200 300 Balance -200 -300 Weight 50.666 kg 50.666 kg Output: Urine 200 300 Other: Voiding Method Urinal - Labs CBC & Chem 7: 11/07/23 03:23 11/07/23 03:23 Labs: Abnormal Lab Results - Last 24 Hours (Table) 11/07/23 11/07/23 Range/Units 03:23 03:23 RBC 2.99 L (4.30-5.90) m/uL Hgb 9.5 L (13.0-17.5) gm/dL Hct 29.3 L (39.0-53.0) % RDW 16.3 H (11.5-15.5) % Lymphocytes # 0.6 L (1.0-4.8) k/uL Potassium 3.0 L (3.5-5.1) mmol/L Chloride 111 H (98-107) mmol/L Carbon Dioxide 20 L (22-30) mmol/L Creatinine 0.46 L (0.66-1.25) mg/dL Glucose 72 L (74-99) mg/dL Calcium 8.3 L (8.4-10.2) mg/dL
[2023-11-07] MEDS: POTASSIUM BICARBONATE/CIT AC 20 MEQ TABLET.EFF NG-TUBE SCH ×2 (14:45→23:01)
[2023-11-08] MEDS: POTASSIUM BICARBONATE/CIT AC 20 MEQ TABLET.EFF NG-TUBE SCH (05:21)
--- NOTE | 2023-11-08 11:10 | P.PN ---
Subjective This is a pleasant 67 years old male with past medical history of multiple medical problems He was in the hospital about less than a month ago for hypernatremia and inability to take care of himself and eating and dysphagia and patient had PEG tube placed with hernia repair by surgery team He comes again with recurrent nausea vomiting related to GI upset. Currently patient has been followed closely by general surgery team and he remains n.p.o. He keeps having vomiting, he has an episode of vomiting this morning, it looks like it is controlled with Zofran No abdominal pain or tenderness Patient denies bowel movement for the last 2 days No chest pain or dyspnea or Abdominal complaints He is afebrile and hemodynamically stable but mildly tachycardic Labs showing unremarkable CBC except for mild anemia with hemoglobin 9.5, unremarkable BMP and liver enzymes and lipase and INR CT of the abdomen and pelvis showing postsurgical changes of hernia repair but there is right 1.9 cm lucency thought it is residual hiatal hernia and there is suspicion of distal esophagitis with circumferential wall thickening and possible enteritis as well with circumferential thickening of the ascending colon and his first part Also patient has upper GI series but could not be finished drinking the contrast well by the patient and it shows evidence of GERD as well on Protonix 40 mg IV twice daily 10/09/2023 Patient is doing well, no abdominal pain, no bowel movement No new complaint We are going to start tube feeding today Low potassium and magnesium replaced Objective - Vital Signs Vital signs: Vital Signs Temp 97 F L 11/08/23 07:15 Pulse 85 11/08/23 07:15 Resp 17 11/08/23 07:55 BP 108/72 11/08/23 07:15 Pulse Ox 98 11/08/23 09:02 FiO2 21 11/06/23 09:43 Intake & Output 11/07/23 11/08/23 11/08/23 18:59 06:59 18:59 Intake Total 920 Output Total 300 Balance 920 -300 Weight 50.666 kg Intake: Intake, IV Titration 920 Amount Piperacillin-Tazobactam 3 200 .375 gm In Sodium Chloride 0.9% 100 ml @ 25 mls/hr IVPB Q8H [facility] Rx#: [id number] Sodium Chloride 0.9% 1, 720 000 ml @ 60 mls/hr IV . [id number] [facility] Rx#:[id number] Output: Urine 300 - Exam -GENERAL: The patient is alert and oriented x3, not in any acute distress. Well developed, well nourished. Thin built HEENT: Pupils are round and equally reacting to light. EOMI. No scleral icterus. No conjunctival pallor. Normocephalic, atraumatic. No pharyngeal erythema. No thyromegaly. CARDIOVASCULAR: S1 and S2 present. No murmurs, rubs, or gallops. PULMONARY: Chest is clear to auscultation, no wheezing , no crackles. -ABDOMEN: Soft, nontender, nondistended, normoactive bowel sounds. No palpable organomegaly. PEG tube in place, no food is running MUSCULOSKELETAL: No joint swelling or deformity. EXTREMITIES: No cyanosis, clubbing, or pedal edema. NEUROLOGICAL: Gross neurological examination did not reveal any focal deficits. SKIN: No rashes. no petechiae. - Labs CBC & Chem 7: 11/07/23 03:23 11/08/23 03:11 Labs: Abnormal Lab Results - Last 24 Hours (Table) 11/07/23 11/08/23 Range/Units 19:19 03:11 Potassium 3.2 L 3.4 L (3.5-5.1) mmol/L Assessment and Plan Assessment: Acute gastroenteritis Acute esophagitis with possible gastroesophageal reflux disease Suspected residual heart or hernia 1.9 cm to the right side with recently history of surgery repair of hiatal hernia Moderate calorie protein malnutrition Generalized weakness secondary to above Intra-abdominal infection is suspected Anxiety Plan: Continue with Zosyn Start tube feeding General surgery team Patient is with bowel rest, diet would be advanced per surgery team recommendation Continue with home dose of Eliquis Labs and medication were reviewed.. Continue same treatment. Continue with symptomatic treatment. Resume home medication. Monitor labs and vitals. DVT and GI prophylaxis. Further recommendations as per clinical course of the patient DVT prophylaxis: Eliquis GI Prophylaxis: on Protonix 40 mg IV twice daily PT/OT: Pending Prognosis is guarded
[2023-11-08] MEDS: MAGNESIUM SULFATE-D5W PMX 1 GM in DEXTROSE/WATER 1 100ML.BAG IVPB ONE (11:21)
--- NOTE | 2023-11-08 15:52 | P.PN ---
Subjective Progress Note Date: 11/08/23 CHIEF COMPLAINT: Dysphagia HISTORY OF PRESENT ILLNESS: Patient has reported nausea did need Zofran. Repo rts that he is feeling better this morning. He still has episodes of spitting up. But reports that it is improving. Tube feeds are to be started today. PHYSICAL EXAM: VITAL SIGNS: Reviewed. GENERAL: no acute distress. ABDOMEN: Soft. Nondistended. Nontender. PEG tube site clean dry and intact NEUROLOGIC: Alert and oriented. Cranial nerves II through XII grossly intact. ASSESSMENT: 1. Dysphagia with failure to thrive PLAN: -Resume tube feeds. Dietitian consulted -Continue to monitor [employer]ician [employer] note has been reviewed by physician. Signing provider agrees with the documented findings, assessment, and plan of care. Objective - Vital Signs Vital signs: Vital Signs Temp 97.9 F 11/08/23 13:17 Pulse 77 11/08/23 13:17 Resp 17 11/08/23 13:17 BP 133/87 11/08/23 13:17 Pulse Ox 96 11/08/23 13:17 FiO2 21 11/06/23 09:43 Intake & Output 11/07/23 11/08/23 11/08/23 18:59 06:59 18:59 Intake Total 920 Output Total 300 Balance 920 -300 Weight 50.666 kg 50.666 kg Intake: Intake, IV Titration 920 Amount Piperacillin-Tazobactam 3 200 .375 gm In Sodium Chloride 0.9% 100 ml @ 25 mls/hr IVPB Q8H [facility] Rx#: [id number] Sodium Chloride 0.9% 1, 720 000 ml @ 60 mls/hr IV . [id number] [facility] Rx#:[id number] Output: Urine 300 - Labs CBC & Chem 7: 11/07/23 03:23 11/08/23 03:11 Labs: Abnormal Lab Results - Last 24 Hours (Table) 11/07/23 11/08/23 Range/Units 19:19 03:11 Potassium 3.2 L 3.4 L (3.5-5.1) mmol/L
[2023-11-08] MEDS: POTASSIUM CHLORIDE ER 20 MEQ TAB.ER PO ONE (17:35)
[2023-11-08] MEDS: POTASSIUM BICARBONATE/CIT AC 20 MEQ TABLET.EFF PO ONE (17:37)
--- NOTE | 2023-11-09 09:10 | P.PN ---
Subjective This is a pleasant 67 years old male with past medical history of multiple medical problems He was in the hospital about less than a month ago for hypernatremia and inability to take care of himself and eating and dysphagia and patient had PEG tube placed with hernia repair by surgery team He comes again with recurrent nausea vomiting related to GI upset. Currently patient has been followed closely by general surgery team and he remains n.p.o. He keeps having vomiting, he has an episode of vomiting this morning, it looks like it is controlled with Zofran No abdominal pain or tenderness Patient denies bowel movement for the last 2 days No chest pain or dyspnea or Abdominal complaints He is afebrile and hemodynamically stable but mildly tachycardic Labs showing unremarkable CBC except for mild anemia with hemoglobin 9.5, unremarkable BMP and liver enzymes and lipase and INR CT of the abdomen and pelvis showing postsurgical changes of hernia repair but there is right 1.9 cm lucency thought it is residual hiatal hernia and there is suspicion of distal esophagitis with circumferential wall thickening and possible enteritis as well with circumferential thickening of the ascending colon and his first part Also patient has upper GI series but could not be finished drinking the contrast well by the patient and it shows evidence of GERD as well on Protonix 40 mg IV twice daily 11/08/2023 Patient is doing well, no abdominal pain, no bowel movement No new complaint We are going to start tube feeding today Low potassium and magnesium replaced 11/09/2023 Patient started on tube feeding yesterday, currently running at 20 mL/h Patient vomited about 3-4 times overnight, and he has mild periumbilical abdominal pain with regular bowel movement. Patient on Zofran with partial relief. We are going to add Phenergan x 2 days. Continue tube feeding for now with close monitoring Check labs in the morning Objective - Vital Signs Vital signs: Vital Signs Temp 97.8 F 11/09/23 07:18 Pulse 83 11/09/23 07:18 Resp 19 11/09/23 07:18 BP 120/82 11/09/23 07:18 Pulse Ox 98 11/09/23 07:18 FiO2 21 11/06/23 09:43 Intake & Output 11/08/23 11/09/23 11/09/23 18:59 06:59 18:59 Weight 50.666 kg 51 kg - Exam -GENERAL: The patient is alert and oriented x3, not in any acute distress. Well developed, well nourished. Thin built HEENT: Pupils are round and equally reacting to light. EOMI. No scleral icterus. No conjunctival pallor. Normocephalic, atraumatic. No pharyngeal erythema. No thyromegaly. CARDIOVASCULAR: S1 and S2 present. No murmurs, rubs, or gallops. PULMONARY: Chest is clear to auscultation, no wheezing , no crackles. -ABDOMEN: Soft, nontender, nondistended, normoactive bowel sounds. No palpable organomegaly. PEG tube in place, no food is running MUSCULOSKELETAL: No joint swelling or deformity. EXTREMITIES: No cyanosis, clubbing, or pedal edema. NEUROLOGICAL: Gross neurological examination did not reveal any focal deficits. SKIN: No rashes. no petechiae. - Labs CBC & Chem 7: 11/07/23 03:23 11/09/23 08:01 Assessment and Plan Assessment: Acute gastroenteritis Acute esophagitis with possible gastroesophageal reflux disease Suspected residual heart or hernia 1.9 cm to the right side with recently history of surgery repair of hiatal hernia Moderate calorie protein malnutrition Generalized weakness secondary to above Intra-abdominal infection is suspected Anxiety Plan: Continue with Zosyn Start tube feeding Zofran and Phenergan as antiemetic General surgery team Patient is with bowel rest, diet would be advanced per surgery team recom mendation Continue with home dose of Eliquis Labs and medication were reviewed.. Continue same treatment. Continue with symptomatic treatment. Resume home medication. Monitor labs and vitals. DVT and GI prophylaxis. Further recommendations as per clinical course of the patient DVT prophylaxis: Eliquis GI Prophylaxis: on Protonix 40 mg IV twice daily PT/OT: Pending Prognosis is guarded
[2023-11-09 12:02] LABS: Glucose,Whole Blood 137 mg/dL (70-110)
[2023-11-09] MEDS: PROMETHAZINE 25 MG TAB PO SCH (13:09)
--- NOTE | 2023-11-09 13:23 | P.PN ---
Subjective Progress Note Date: 11/09/23 CHIEF COMPLAINT: Dysphagia HISTORY OF PRESENT ILLNESS: Patient is tolerating tube feeds. Tube feeds are currently at 20 mill per hour. No residual reported per nursing staff. Patient's nausea has not worsened. He continues to have this clear spit up. PHYSICAL EXAM: VITAL SIGNS: Reviewed. GENERAL: no acute distress. ABDOMEN: Soft. Nondistended. Nontender. PEG tube site clean dry and intact NEUROLOGIC: Alert and oriented. Cranial nerves II through XII grossly intact. ASSESSMENT: 1. Dysphagia with failure to thrive PLAN: -Titrate tube feeds per dietitian -Continue to monitor Physician Patient Service Technician Pst note has been reviewed by physician. Signing provider agrees with the documented findings, assessment, and plan of care. Objective - Vital Signs Vital signs: Vital Signs Temp 97.8 F 11/09/23 07:18 Pulse 83 11/09/23 07:18 Resp 19 11/09/23 07:18 BP 120/82 11/09/23 07:18 Pulse Ox 98 11/09/23 07:18 FiO2 21 11/06/23 09:43 Intake & Output 11/08/23 11/09/23 11/09/23 18:59 06:59 18:59 Weight 50.666 kg 51 kg 51 kg Other: Voiding Method Urinal - Labs CBC & Chem 7: 11/07/23 03:23 11/09/23 08:01 Labs: Abnormal Lab Results - Last 24 Hours (Table) 11/09/23 Range/Units 12:01 POC Glucose (mg/dL) 137 H (70-110) mg/dL
[2023-11-09 16:29] LABS: Glucose,Whole Blood 132 mg/dL (70-110)
[2023-11-09 20:25] LABS: Glucose,Whole Blood 142 mg/dL (70-110)
[2023-11-10 12:27] LABS: African American GFR (CKD) >90 (>60 ml/min/1.73 sqM); Anion Gap -1 mmol/L; Blood Urea Nitrogen 7 mg/dL (9-20); Carbon Dioxide 26 mmol/L (22-30); Chloride 115 mmol/L (98-107); Glucose 88 mg/dL (74-99); Non-African American GFR(CKD) >90 (>60 ml/min/1.73 sqM); Sodium 140 mmol/L (137-145)
[2023-11-10 12:32] LABS: Calcium 6.1 mg/dL (8.4-10.2); Magnesium 1.4 mg/dL (1.6-2.3); Potassium 3.2 mmol/L (3.5-5.1)
[2023-11-10 12:45] LABS: Anisocytosis Slight; Basophils # (A) 0.1 k/uL (0-0.2); Basophils % (A) 1 %; Eosinophils # (A) 0.1 k/uL (0-0.7); Eosinophils % (A) 1 %; HCT 30.9 % (39.0-53.0); HGB 9.7 gm/dL (13.0-17.5); Hypochromasia Moderate; Lymphocytes # (A) 0.4 k/uL (1.0-4.8); Lymphocytes % (A) 9 %; MCH 31.9 pg (25.0-35.0); MCHC 31.4 g/dL (31.0-37.0); MCV 101.7 fL (80.0-100.0); Macrocytosis Moderate; Mean Platelet Volume 8.4; Monocytes # (A) 0.3 k/uL (0-1.0); Monocytes % (A) 6 %; Neutrophils # (A) 4.1 k/uL (1.3-7.7); Neutrophils % (A) 82 %; Platelet Count 309 k/uL (150-450); RBC 3.04 m/uL (4.30-5.90); RDW 16.5 % (11.5-15.5); WBC 4.9 k/uL (3.8-10.6)
[2023-11-10] MEDS: POTASSIUM CHLORIDE ER 20 MEQ TAB.ER PO SCH (13:33)
[2023-11-10] MEDS: MAGNESIUM SULFATE-D5W PMX 1 GM in DEXTROSE/WATER 1 100ML.BAG IVPB ONE ×2 (13:33→15:22)
--- NOTE | 2023-11-10 13:39 | P.PN ---
Subjective Progress Note Date: 11/10/23 CHIEF COMPLAINT: Dysphagia HISTORY OF PRESENT ILLNESS: Patient is tolerating tube feeds. Tube feeds are currently at 20 ml/hr. No residual reported per nursing staff. Patient denies any nausea or vomiting. He denies any abdominal pain. PHYSICAL EXAM: VITAL SIGNS: Reviewed. GENERAL: no acute distress. ABDOMEN: Soft. Nondistended. Nontender. PEG tube site clean dry and intact ASSESSMENT: 1. Dysphagia with failure to thrive PLAN: -Titrate tube feeds per dietitian -Patient can be discharge from surgical standpoint Physician Telephone Supervisor note has been reviewed by physician. Signing provider agrees with the documented findings, assessment, and plan of care. Objective - Vital Signs Vital signs: Vital Signs Temp 97.6 F 11/10/23 07:24 Pulse 80 11/10/23 07:24 Resp 17 11/10/23 07:24 BP 103/68 11/10/23 07:24 Pulse Ox 96 11/10/23 07:24 FiO2 21 11/06/23 09:43 Intake & Output 11/09/23 11/10/23 11/10/23 18:59 06:59 18:59 Output Total 400 Balance -400 Weight 51 kg 53.5 kg 53.5 kg Output: Urine 400 Other: Voiding Method Urinal Urinal - Labs CBC & Chem 7: 11/10/23 12:04 11/10/23 12:04 Labs: Abnormal Lab Results - Last 24 Hours (Table) 11/09/23 11/09/23 11/10/23 Range/Units 16:28 20:23 12:04 RBC 3.04 L (4.30-5.90) m/uL Hgb 9.7 L (13.0-17.5) gm/dL Hct 30.9 L (39.0-53.0) % MCV 101.7 H (80.0-100.0) fL RDW 16.5 H (11.5-15.5) % Lymphocytes # 0.4 L (1.0-4.8) k/uL Potassium (3.5-5.1) mmol/L Chloride (98-107) mmol/L BUN (9-20) mg/dL Creatinine (0.66-1.25) mg/dL POC Glucose (mg/dL) 132 H 142 H (70-110) mg/dL Calcium (8.4-10.2) mg/dL Magnesium (1.6-2.3) mg/dL 11/10/23 Range/Units 12:04 RBC (4.30-5.90) m/uL Hgb (13.0-17.5) gm/dL Hct (39.0-53.0) % MCV (80.0-100.0) fL RDW (11.5-15.5) % Lymphocytes # (1.0-4.8) k/uL Potassium 3.2 L (3.5-5.1) mmol/L Chloride 115 H (98-107) mmol/L BUN 7 L (9-20) mg/dL Creatinine 0.28 L (0.66-1.25) mg/dL POC Glucose (mg/dL) (70-110) mg/dL Calcium 6.1 L* (8.4-10.2) mg/dL Magnesium 1.4 L (1.6-2.3) mg/dL
[2023-11-10 21:14] LABS: Glucose,Whole Blood 125 mg/dL (70-110)
[2023-11-11] MEDS: CALCIUM GLUCONATE IN NACL 1 GM in SALINE 1 100ML.BAG IVPB ONE (00:42)
[2023-11-11 08:22] LABS: ALT 13 U/L (4-49); AST 19 U/L (17-59); African American GFR (CKD) >90 (>60 ml/min/1.73 sqM); Alkaline Phosphatase 94 U/L (38-126); Anion Gap -2 mmol/L; Blood Urea Nitrogen 8 mg/dL (9-20); Calcium 7.5 mg/dL (8.4-10.2); Carbon Dioxide 31 mmol/L (22-30); Chloride 108 mmol/L (98-107); Glucose 116 mg/dL (74-99); Non-African American GFR(CKD) >90 (>60 ml/min/1.73 sqM); Potassium 3.5 mmol/L (3.5-5.1); Sodium 137 mmol/L (137-145); Total Bilirubin 0.4 mg/dL (0.2-1.3)
--- NOTE | 2023-11-11 17:57 | P.PN ---
Progress Note - Text Progress Note Date: 11/11/23 CHIEF COMPLAINT: Dysphagia HISTORY OF PRESENT ILLNESS: Patient is tolerating tube feeds. However nausea is worse today. PHYSICAL EXAM: VITAL SIGNS: Reviewed. GENERAL: no acute distress. ABDOMEN: Soft. Nondistended. Nontender. PEG tube site clean dry and intact NEUROLOGIC: Alert and oriented. Cranial nerves II through XII grossly intact. ASSESSMENT: 1. Dysphagia with failure to thrive PLAN: -Titrate tube feeds per dietitian -Nausea control -Continue to monitor
[2023-11-12 04:38] LABS: Ionized Calcium 4.4 mg/dL (4.5-5.3)
[2023-11-12 04:46] LABS: ALT 13 U/L (4-49); AST 20 U/L (17-59); African American GFR (CKD) >90 (>60 ml/min/1.73 sqM); Alkaline Phosphatase 92 U/L (38-126); Anion Gap 1 mmol/L; Blood Urea Nitrogen 9 mg/dL (9-20); Calcium 7.4 mg/dL (8.4-10.2); Carbon Dioxide 26 mmol/L (22-30); Chloride 108 mmol/L (98-107); Glucose 105 mg/dL (74-99); Non-African American GFR(CKD) >90 (>60 ml/min/1.73 sqM); Potassium 3.3 mmol/L (3.5-5.1); Sodium 135 mmol/L (137-145); Total Bilirubin 0.3 mg/dL (0.2-1.3)
[2023-11-12] MEDS: POTASSIUM BICARBONATE/CIT AC 20 MEQ TABLET.EFF NG-TUBE SCH (05:18)
[2023-11-12 09:34] LABS: Basophils # (A) 0.05 X 10*3/uL (0.00-0.10); Basophils % (A) 0.9 %; Eosinophils # (A) 0.11 X 10*3/uL (0.04-0.35); HCT 28.8 % (39.6-50.0); HGB 8.8 g/dL (13.0-17.0); Lymphocytes # (A) 0.97 X 10*3/uL (0.90-5.00); Lymphocytes % (A) 17.9 %; MCH 30.9 pg (27.0-32.0); MCHC 30.6 g/dL (32.0-37.0); MCV 101.1 FL (80.0-97.0); Mean Platelet Volume 11.1 FL (9.5-12.2); Monocytes # (A) 0.32 X 10*3/uL (0.20-1.00); Monocytes % (A) 5.9 %; NRBC Per 100 WBC 0 X 10*3/uL (0.00-0.01); Neutrophils # (A) 3.74 X 10*3/uL (1.80-7.70); Neutrophils % (A) 69.1 %; Platelet Count 328 X 10*3/uL (140-440); RBC 2.85 X 10*6/uL (4.40-5.60); RDW 17.2 % (11.5-14.5); WBC 5.42 X 10*3/uL (4.50-10.00)
--- NOTE | 2023-11-12 09:46 | P.PN ---
Subjective Progress Note Date: 11/12/23 patient [place] stable. He is a limited oral intake. Abdomen soft nontender Though to thrive patient received supportive care. Objective - Vital Signs Vital signs: Vital Signs Temp 97.5 F L 11/12/23 07:09 Pulse 102 H 11/12/23 07:09 Resp 16 11/12/23 08:00 BP 105/73 11/12/23 07:09 Pulse Ox 95 11/12/23 07:09 FiO2 21 11/06/23 09:43 Intake & Output 11/11/23 11/12/23 11/12/23 18:59 06:59 18:59 Output Total 600 400 Balance -600 -400 Weight 51.71 kg 52.2 kg Output: Urine 600 400 Other: # Bowel Movements 1 - Labs CBC & Chem 7: 11/12/23 03:55 11/12/23 08:15 Labs: Abnormal Lab Results - Last 24 Hours (Table) 11/12/23 11/12/23 Range/Units 03:55 03:55 RBC 2.85 L (4.40-5.60) X 10*6/uL Hgb 8.8 L (13.0-17.0) g/dL Hct 28.8 L (39.6-50.0) % MCV 101.1 H (80.0-97.0) FL MCHC 30.6 L (32.0-37.0) g/dL RDW 17.2 H (11.5-14.5) % Immature Gran # 0.23 H (0.00-0.04) X 10*3/uL Sodium 135 L (137-145) mmol/L Potassium 3.3 L (3.5-5.1) mmol/L Chloride 108 H (98-107) mmol/L Creatinine 0.34 L (0.66-1.25) mg/dL Glucose 105 H (74-99) mg/dL Calcium 7.4 L (8.4-10.2) mg/dL Ionized Calcium Chgao 4.4 L (4.5-5.3) mg/dL Total Protein 4.0 L (6.3-8.2) g/dL Albumin 2.0 L (3.5-5.0) g/dL
--- NOTE | 2023-11-12 16:00 | P.PN ---
Subjective Progress Note Date: 11/10/23 67 years old male with past medical history of multiple medical problems He was in the hospital about less than a month ago for hypernatremia and inability to take care of himself and eating and dysphagia and patient had PEG tube placed with hernia repair by surgery team He comes again with recurrent nausea vomiting related to GI upset. Currently patient has been followed closely by general surgery team and he remains n.p.o. He keeps having vomiting, he has an episode of vomiting this morning, it looks like it is controlled with Zofran No abdominal pain or tenderness Patient denies bowel movement for the last 2 days No chest pain or dyspnea or Abdominal complaints He is afebrile and hemodynamically stable but mildly tachycardic Labs showing unremarkable CBC except for mild anemia with hemoglobin 9.5, unremarkable BMP and liver enzymes and lipase and INR CT of the abdomen and pelvis showing postsurgical changes of hernia repair but there is right 1.9 cm lucency thought it is residual hiatal hernia and there is suspicion of distal esophagitis with circumferential wall thickening and possib le enteritis as well with circumferential thickening of the ascending colon and his first part Also patient has upper GI series but could not be finished drinking the contrast well by the patient and it shows evidence of GERD as well on Protonix 40 mg IV twice daily Objective - Vital Signs Vital signs: Vital Signs Temp 97.6 F 11/10/23 07:24 Pulse 80 11/10/23 07:24 Resp 17 11/10/23 07:24 BP 103/68 11/10/23 07:24 Pulse Ox 96 11/10/23 07:24 FiO2 21 11/06/23 09:43 Intake & Output 11/09/23 11/10/23 11/10/23 18:59 06:59 18:59 Output Total 400 Balance -400 Weight 51 kg 53.5 kg Output: Urine 400 Other: Voiding Method Urinal Urinal - Exam -GENERAL: The patient is alert and oriented x3, not in any acute distress. Well developed, well nourished. Thin built HEENT: Pupils are round and equally reacting to light. EOMI. No scleral icterus. No conjunctival pallor. Normocephalic, atraumatic. No pharyngeal erythema. No thyromegaly. CARDIOVASCULAR: S1 and S2 present. No murmurs, rubs, or gallops. PULMONARY: Chest is clear to auscultation, no wheezing , no crackles. -ABDOMEN: Soft, nontender, nondistended, normoactive bowel sounds. No palpable organomegaly. PEG tube in place, no food is running MUSCULOSKELETAL: No joint swelling or deformity. EXTREMITIES: No cyanosis, clubbing, or pedal edema. NEUROLOGICAL: Gross neurological examination did not reveal any focal deficits. SKIN: No rashes. no petechiae. - Labs CBC & Chem 7: 11/12/23 03:55 11/12/23 08:15 Labs: Abnormal Lab Results - Last 24 Hours (Table) 11/09/23 11/09/23 11/10/23 Range/Units 16:28 20:23 12:04 RBC 3.04 L (4.30-5.90) m/uL Hgb 9.7 L (13.0-17.5) gm/dL Hct 30.9 L (39.0-53.0) % MCV 101.7 H (80.0-100.0) fL RDW 16.5 H (11.5-15.5) % Lymphocytes # 0.4 L (1.0-4.8) k/uL Potassium (3.5-5.1) mmol/L Chloride (98-107) mmol/L BUN (9-20) mg/dL Creatinine (0.66-1.25) mg/dL POC Glucose (mg/dL) 132 H 142 H (70-110) mg/dL Calcium (8.4-10.2) mg/dL Magnesium (1.6-2.3) mg/dL 11/10/23 Range/Units 12:04 RBC (4.30-5.90) m/uL Hgb (13.0-17.5) gm/dL Hct (39.0-53.0) % MCV (80.0-100.0) fL RDW (11.5-15.5) % Lymphocytes # (1.0-4.8) k/uL Potassium 3.2 L (3.5-5.1) mmol/L Chloride 115 H (98-107) mmol/L BUN 7 L (9-20) mg/dL Creatinine 0.28 L (0.66-1.25) mg/dL POC Glucose (mg/dL) (70-110) mg/dL Calcium 6.1 L* (8.4-10.2) mg/dL Magnesium 1.4 L (1.6-2.3) mg/dL Assessment and Plan Assessment: Acute gastroenteritis Acute esophagitis with possible gastroesophageal reflux disease Suspected residual heart or hernia 1.9 cm to the right side with recently history of surgery repair of hiatal hernia Moderate calorie protein malnutrition Generalized weakness secondary to above Intra-abdominal infection is suspected Anxiety Plan: Continue with Zosyn Start tube feeding Zofran and Phenergan as antiemetic General surgery team Patient is with bowel rest, diet would be advanced per surgery team recommendation Continue with home dose of Eliquis Labs and medication were reviewed.. Continue same treatment. Continue with symptomatic treatment. Resume home medication. Monitor labs and vitals. DVT and GI prophylaxis. Further recommendations as per clinical course of the patient DVT prophylaxis: Eliquis GI Prophylaxis: on Protonix 40 mg IV twice daily PT/OT: Pending
--- NOTE | 2023-11-12 16:03 | P.PN ---
Subjective Progress Note Date: 11/11/23 67 years old male with past medical history of multiple medical problems He was in the hospital about less than a month ago for hypernatremia and inability to take care of himself and eating and dysphagia and patient had PEG tube placed with hernia repair by surgery team He comes again with recurrent nausea vomiting related to GI upset. Currently patient has been followed closely by general surgery team and he remains n.p.o. He keeps having vomiting, he has an episode of vomiting this morning, it looks like it is controlled with Zofran No abdominal pain or tenderness Patient denies bowel movement for the last 2 days No chest pain or dyspnea or Abdominal complaints He is afebrile and hemodynamically stable but mildly tachycardic Labs showing unremarkable CBC except for mild anemia with hemoglobin 9.5, unremarkable BMP and liver enzymes and lipase and INR CT of the abdomen and pelvis showing postsurgical changes of hernia repair but there is right 1.9 cm lucency thought it is residual hiatal hernia and there is suspicion of distal esophagitis with circumferential wall thickening and possib le enteritis as well with circumferential thickening of the ascending colon and his first part Also patient has upper GI series but could not be finished drinking the contrast well by the patient and it shows evidence of GERD as well on Protonix 40 mg IV twice daily --Patient has been placed on tube feeding; complains of nausea without any vomiting -- She does currently on tube feeding at 30 cc/h; no significant residual reported Objective - Vital Signs Vital signs: Vital Signs Temp 98.2 F 11/11/23 06:58 Pulse 77 11/11/23 06:58 Resp 17 11/11/23 08:16 BP 110/73 11/11/23 06:58 Pulse Ox 95 11/11/23 09:37 FiO2 21 11/06/23 09:43 Intake & Output 11/10/23 11/11/23 11/11/23 18:59 06:59 18:59 Output Total 400 Balance -400 Weight 53.5 kg 51.71 kg Output: Urine 400 - Exam -GENERAL: The patient is alert and oriented x3, not in any acute distress. Well developed, well nourished. Thin built HEENT: Pupils are round and equally reacting to light. EOMI. No scleral icterus. No conjunctival pallor. Normocephalic, atraumatic. No pharyngeal erythema. No thyromegaly. CARDIOVASCULAR: S1 and S2 present. No murmurs, rubs, or gallops. PULMONARY: Chest is clear to auscultation, no wheezing , no crackles. -ABDOMEN: Soft, nontender, nondistended, normoactive bowel sounds. No palpable organomegaly. PEG tube in place, no food is running MUSCULOSKELETAL: No joint swelling or deformity. EXTREMITIES: No cyanosis, clubbing, or pedal edema. NEUROLOGICAL: Gross neurological examination did not reveal any focal deficits. SKIN: No rashes. no petechiae. - Labs CBC & Chem 7: 11/12/23 03:55 11/12/23 08:15 Labs: Abnormal Lab Results - Last 24 Hours (Table) 11/10/23 11/10/23 11/10/23 Range/Units 12:04 12:04 21:13 RBC 3.04 L (4.30-5.90) m/uL Hgb 9.7 L (13.0-17.5) gm/dL Hct 30.9 L (39.0-53.0) % MCV 101.7 H (80.0-100.0) fL RDW 16.5 H (11.5-15.5) % Lymphocytes # 0.4 L (1.0-4.8) k/uL Potassium 3.2 L (3.5-5.1) mmol/L Chloride 115 H (98-107) mmol/L Carbon Dioxide (22-30) mmol/L BUN 7 L (9-20) mg/dL Creatinine 0.28 L (0.66-1.25) mg/dL Glucose (74-99) mg/dL POC Glucose (mg/dL) 125 H (70-110) mg/dL Calcium 6.1 L* (8.4-10.2) mg/dL Magnesium 1.4 L (1.6-2.3) mg/dL Total Protein (6.3-8.2) g/dL Albumin (3.5-5.0) g/dL 11/11/23 Range/Units 07:16 RBC (4.30-5.90) m/uL Hgb (13.0-17.5) gm/dL Hct (39.0-53.0) % MCV (80.0-100.0) fL RDW (11.5-15.5) % Lymphocytes # (1.0-4.8) k/uL Potassium (3.5-5.1) mmol/L Chloride 108 H (98-107) mmol/L Carbon Dioxide 31 H (22-30) mmol/L BUN 8 L (9-20) mg/dL Creatinine 0.34 L (0.66-1.25) mg/dL Glucose 116 H (74-99) mg/dL POC Glucose (mg/dL) (70-110) mg/dL Calcium 7.5 L (8.4-10.2) mg/dL Magnesium (1.6-2.3) mg/dL Total Protein 4.0 L (6.3-8.2) g/dL Albumin 2.0 L (3.5-5.0) g/dL Assessment and Plan Assessment: Acute gastroenteritis Acute esophagitis with possible gastroesophageal reflux disease Suspected residual heart or hernia 1.9 cm to the right side with recently history of surgery repair of hiatal hernia Moderate calorie protein malnutrition Generalized weakness secondary to above Intra-abdominal infection is suspected Anxiety Plan: Continue with Zosyn Start tube feeding Zofran and Phenergan as antiemetic General surgery team Patient is with bowel rest, diet would be advanced per surgery team recommendation Continue with home dose of Eliquis Labs and medication were reviewed.. Continue same treatment. Continue with symptomatic treatment. Resume home medication. Monitor labs and vitals. DVT and GI prophylaxis. Further recommendations as per clinical course of the patient DVT prophylaxis: Eliquis GI Prophylaxis: on Protonix 40 mg IV twice daily PT/OT: Pending
--- NOTE | 2023-11-12 16:04 | P.PN ---
Subjective Progress Note Date: 11/12/23 67 years old male with past medical history of multiple medical problems He was in the hospital about less than a month ago for hypernatremia and inability to take care of himself and eating and dysphagia and patient had PEG tube placed with hernia repair by surgery team He comes again with recurrent nausea vomiting related to GI upset. Currently patient has been followed closely by general surgery team and he remains n.p.o. He keeps having vomiting, he has an episode of vomiting this morning, it looks like it is controlled with Zofran No abdominal pain or tenderness Patient denies bowel movement for the last 2 days No chest pain or dyspnea or Abdominal complaints He is afebrile and hemodynamically stable but mildly tachycardic Labs showing unremarkable CBC except for mild anemia with hemoglobin 9.5, unremarkable BMP and liver enzymes and lipase and INR CT of the abdomen and pelvis showing postsurgical changes of hernia repair but there is right 1.9 cm lucency thought it is residual hiatal hernia and there is suspicion of distal esophagitis with circumferential wall thickening and possib le enteritis as well with circumferential thickening of the ascending colon and his first part Also patient has upper GI series but could not be finished drinking the contrast well by the patient and it shows evidence of GERD as well on Protonix 40 mg IV twice daily --Patient has been placed on tube feeding; complains of nausea without any vomiting -- She does currently on tube feeding at 30 cc/h; no significant residual reported 11/12/2023 Patient is seen and evaluated with family member at bedside; awake and alert sitting up in bed; does not report any further nausea --Tube feeding going at a rate of 60 cc/h -Vital signs are reviewed and remained stable -- Plan is to continue to titrate tube feeds per dietary recommendations; currently at 60 mL/h -- Possible discharge in next 24 hours once home tube feeding is arranged Objective - Vital Signs Vital signs: Vital Signs Temp 97.5 F L 11/12/23 07:09 Pulse 102 H 11/12/23 07:09 Resp 16 11/12/23 08:00 BP 105/73 11/12/23 07:09 Pulse Ox 95 11/12/23 09:52 FiO2 21 11/06/23 09:43 Intake & Output 11/11/23 11/12/23 11/12/23 18:59 06:59 18:59 Output Total 600 400 Balance -600 -400 Weight 51.71 kg 52.2 kg Output: Urine 600 400 Other: # Bowel Movements 1 - Exam -GENERAL: The patient is alert and oriented x3, not in any acute distress. Well developed, well nourished. Thin built HEENT: Pupils are round and equally reacting to light. EOMI. No scleral icterus. No conjunctival pallor. Normocephalic, atraumatic. No pharyngeal erythema. No thyromegaly. CARDIOVASCULAR: S1 and S2 present. No murmurs, rubs, or gallops. PULMONARY: Chest is clear to auscultation, no wheezing , no crackles. -ABDOMEN: Soft, nontender, nondistended, normoactive bowel sounds. No palpable organomegaly. PEG tube in place, no food is running MUSCULOSKELETAL: No joint swelling or deformity. EXTREMITIES: No cyanosis, clubbing, or pedal edema. NEUROLOGICAL: Gross neurological examination did not reveal any focal deficits. SKIN: No rashes. no petechiae. - Labs CBC & Chem 7: 11/12/23 03:55 11/12/23 08:15 Labs: Abnormal Lab Results - Last 24 Hours (Table) 11/12/23 11/12/23 Range/Units 03:55 03:55 RBC 2.85 L (4.40-5.60) X 10*6/uL Hgb 8.8 L (13.0-17.0) g/dL Hct 28.8 L (39.6-50.0) % MCV 101.1 H (80.0-97.0) FL MCHC 30.6 L (32.0-37.0) g/dL RDW 17.2 H (11.5-14.5) % Immature Gran # 0.23 H (0.00-0.04) X 10*3/uL Sodium 135 L (137-145) mmol/L Potassium 3.3 L (3.5-5.1) mmol/L Chloride 108 H (98-107) mmol/L Creatinine 0.34 L (0.66-1.25) mg/dL Glucose 105 H (74-99) mg/dL Calcium 7.4 L (8.4-10.2) mg/dL Ionized Calcium Chago 4.4 L (4.5-5.3) mg/dL Total Protein 4.0 L (6.3-8.2) g/dL Albumin 2.0 L (3.5-5.0) g/dL Assessment and Plan Assessment: Acute gastroenteritis Acute esophagitis with possible gastroesophageal reflux disease Suspected residual heart or hernia 1.9 cm to the right side with recently history of surgery repair of hiatal hernia Moderate calorie protein malnutrition Generalized weakness secondary to above Intra-abdominal infection is suspected Anxiety Plan: Continue with Zosyn Start tube feeding Zofran and Phenergan as antiemetic General surgery team Patient is with bowel rest, diet would be advanced per surgery team recommendation Continue with home dose of Eliquis Labs and medication were reviewed.. Continue same treatment. Continue with symptomatic treatment. Resume home medication. Monitor labs and vitals. DVT and GI prophylaxis. Further recommendations as per clinical course of the patient DVT prophylaxis: Eliquis GI Prophylaxis: on Protonix 40 mg IV twice daily PT/OT: Pending
[2023-11-13 08:40] VITALS: RESP 19
[2023-11-13 13:23] VITALS: BMI 17.1
--- NOTE | 2023-11-13 13:57 | P.PN ---
Subjective Progress Note Date: 11/13/23 CHIEF COMPLAINT: Dysphagia HISTORY OF PRESENT ILLNESS: Patient is tolerating tube feeds. Tube feeds are currently at 48 ml/hr. Patient denies any nausea or vomiting. He denies any abdominal pain. He has been having bowel movements. Afebrile PHYSICAL EXAM: VITAL SIGNS: Reviewed. GENERAL: no acute distress. ABDOMEN: Soft. Nondistended. Nontender. PEG tube site clean dry and intact ASSESSMENT: 1. Dysphagia with failure to thrive PLAN: -Continue tube feeds -Patient can be discharge from surgical standpoint when medically cleared Physician [employer]eral [employer] Inspector note has been reviewed by physician. Signing provider agrees with the documented findings, assessment, and plan of care. Objective - Vital Signs Vital signs: Vital Signs Temp 98.1 F 11/13/23 07:31 Pulse 90 11/13/23 07:31 Resp 19 11/13/23 07:31 BP 102/66 11/13/23 07:31 Pulse Ox 98 11/13/23 07:31 FiO2 21 11/06/23 09:43 Intake & Output 11/12/23 11/13/23 11/13/23 18:59 06:59 18:59 Output Total 500 1000 Balance -500 -1000 Weight 51 kg 51 kg Output: Urine 500 1000 Other: # Bowel Movements 1 - Labs CBC & Chem 7: 11/12/23 03:55 11/12/23 08:15
[2023-11-13 15:53] VITALS: BP 123/84; PULSE 92; TEMP 98.5
--- NOTE | 2023-11-13 15:56 | CDI ---
Documentation Clarification Form Date: 11/13/2023 03:28:41 PM From: Radha Silvestre RN, CCDS Phone: [phone] Admit Date: 11/03/2023 01:20:00 PM Patient Name: Finn Alex Visit Number: [id number] Discharge Date: ATTENTION: The Clinical Documentation Specialists (CDI) and [facility] Coding Staff appreciate your assistance in clarifying documentation. Please respond to the clarification below the line at the bottom and electronically sign. The CDI & [facility] Coding staff will review the response and follow-up if needed. Please note: Queries are made part of the Legal Health Record. If you have any questions, please contact the author of this message via ITS. Dr. Macario Nicole Conflicting documentation has been found in the medical record. Please provide clarification Severe malnutrition is documented in the H&P and 11/03-11/05 progress notes. Moderate calorie protein malnutrition is documented in the 11/06-current progress notes. History/Risk Factors: CAD, asthma, anxiety, hypertension, hyperlipidemia. Recently discharged from the hospital with recurrent nausea, vomiting and suspected esophageal dysmotility syndrome with possible elements of esophageal GERD. The patient also had a PEG tube placed for severe protein-calorie malnutrition. Presented with nausea, vomiting and diarrhea. Admitted with acute gastroenteritis and esophagitis. Clinical Indicators: RD: Underweight BMI 16.9, weight 50kg, height 5ft 8in H&P: "Severe nausea with possible acute on chronic gastroparesis. Severe malnutrition, status post PEG tube placement." 11/06 IM: "Acute gastroenteritis. Acute esophagitis with possible gastroesophageal reflux disease. Moderate calorie protein malnutrition." 11/04 Surgery: "patient has had poor oral intake." 11/06 Surgery: "Dysphagia with failure to thrive. Patient will resume tube feeds." Treatment: Enteral tube feedings; daily weights; attempted barium swallow; full liquid diet Please clarify which diagnosis is most appropriate: [ ] Moderate protein calorie malnutrition [ #### ] Severe protein calorie malnutrition [ ] Other (please specify) [ ] Unable to determine MTDD
== END 2023-11-13 16:32 | disposition home health service (06) | DRG 391 ==
LOC: EC 09:11 → 4SSUR 13:19 → OBSVTOIN 13:20 → 4SSUR 14:56
PROVIDERS: ADMIT Internal Medicine; ATTEND Internal Medicine
PROC: 3E0G76Z Introduction of Nutritional Substance into Upper GI, Via Natural or Artificial Opening (ICD-10-PCS; principal; 2023-11-07)
DX: K52.9 Noninfective gastroenteritis and colitis, unspecified (principal); E43 Unspecified severe protein-calorie malnutrition; Z68.1 Body mass index [BMI] 19.9 or less, adult; E87.0 Hyperosmolality and hypernatremia; K29.00 Acute gastritis without bleeding; K44.9 Diaphragmatic hernia without obstruction or gangrene; R13.10 Dysphagia, unspecified; R62.7 Adult failure to thrive; M06.9 Rheumatoid arthritis, unspecified; K21.00 Gastro-esophageal reflux disease with esophagitis, without bleeding; I10 Essential (primary) hypertension; J45.909 Unspecified asthma, uncomplicated; E78.5 Hyperlipidemia, unspecified; F32.A Depression, unspecified; I25.10 Atherosclerotic heart disease of native coronary artery without angina pectoris; G89.29 Other chronic pain; F41.9 Anxiety disorder, unspecified; F17.200 Nicotine dependence, unspecified, uncomplicated; D64.9 Anemia, unspecified; Z53.8 Procedure and treatment not carried out for other reasons; E88.09 Other disorders of plasma-protein metabolism, not elsewhere classified; Z71.3 Dietary counseling and surveillance; Z93.1 Gastrostomy status; Z79.899 Other long term (current) drug therapy; Z86.73 Personal history of transient ischemic attack (TIA), and cerebral infarction without residual deficits; Z87.01 Personal history of pneumonia (recurrent)
CPT/HCPCS: 36415; 71045; 74177; 74240; 74248; 80048; 80053; 82150; 82330; 83690; 83735; 84100; 84132; 85025; 85610; 85730; 93005; 94640; 94760; 96361; 96365; 96366; 96375; 96376; 99285

== ENCOUNTER 2023-12-05 12:02 | Emergency (ER) | payer MEDICARE, OTHER ==
--- NOTE | 2023-12-05 12:54 | ED ---
General Adult HPI - General Chief complaint: Recheck/Abnormal Lab/Rx Stated complaint: low bp/high hr/peg tube issues Time Seen by Provider: 12/05/23 12:10 Source: patient, RN notes reviewed, old records reviewed Mode of arrival: ambulatory Limitations: no limitations - History of Present Illness Initial comments: This is a 67-year-old male who presents to the emergency department with a past medical history significant for hiatal hernia repair. Patient also has a PEG tube which was placed about a month ago. Patient states he was vomiting all the time and was unable to tolerate any food. Patient states over the last few weeks he has been getting feedings through the PEG tube as well as eating and is feeling much better with more energy and strength. Patient states he went to see his primary medical care doctor for follow-up and the doctor sent him in because his blood pressure was low and heart rate was elevated. Patient states he does not have any chest pain difficulty breathing or palpitations. Patient denies any nausea. Patient has abdominal pain patient [place] any back pain. Patient denies any other symptoms at this time. - Related Data Home Medications Medication Instructions Recorded Confirmed Sertraline [Zoloft] 25 mg PO DAILY 08/08/23 12/05/23 Pantoprazole [Protonix] 40 mg PO AC-BRKFST 10/29/23 12/05/23 Metoprolol Tartrate [Lopressor] 25 mg PO BID 12/05/23 12/05/23 busPIRone HCL [Buspar] 7.5 mg PO BID 12/05/23 12/05/23 Allergies Allergy/AdvReac Type Severity Reaction Status Date / Time No Known Allergies Allergy Verified 12/05/23 14:08 Review of Systems ROS Statement: Those systems with pertinent positive or pertinent negative responses have been documented in the HPI. ROS Other: All systems not noted in ROS Statement are negative. Past Medical History Past Medical History: Asthma, Coronary Artery Disease (CAD), Chest Pain / Angina, CVA/TIA, GERD/Reflux, Hyperlipidemia, Hypertension, Pneumonia, Rheumatoid Arthritis (RA) Additional Past Medical History / Comment(s): MIGRAINES, HEART MURMUR, hx HIATAL HERNIA, ANEMIA, one dr told him he had a stroke at one time-no effects, varicose veins, history of incarcerated per esophageal hernia, status post robotic-assisted paraesophageal hernia repair and Frederick fundoplication on 04/12/2022. History of Any Multi-Drug Resistant Organisms: None Reported Past Surgical History: Cholecystectomy, Heart Catheterization, Hernia Repair, Orthopedic Surgery Additional Past Surgical History / Comment(s): Lt achilles tendon,RT SHOULDER surgery, RT ACHILLES TENDON reattached, HEMORRHOIDECTOMY, 13 FATTY TUMORS removed. left hand index finger surgery after injury, EGD WITH DILATION, paraesophageal hernia repair with Frederick fundoplication on 04/12/2022. Past Anesthesia/Blood Transfusion Reactions: No Reported Reaction Additional Past Anesthesia/Blood Transfusion Reaction / Comment(s): no hx blood transfusion Past Psychological History: Anxiety, Depression Smoking Status: Current some day smoker Past Alcohol Use History: None Reported Past Drug Use History: Marijuana - Past Family History Mother Family Medical History: Cancer Father Additional Family Medical History / Comment(s): thinks aneurysm General Exam - General Exam Comments Initial Comments: GENERAL: Patient is well-developed and well-nourished. Patient is nontoxic and well- hydrated and is in no acute distress. ENT: Neck is soft and supple. No significant lymphadenopathy is noted. Oropharynx is clear. Moist mucous membranes. Neck has full range of motion without eliciting any pain. EYES: The sclera were anicteric and conjunctiva were pink and moist. Extraocular movements were intact and pupils were equal round and reactive to light. Eyelids were unremarkable. PULMONARY: Unlabored respirations. Good breath sounds bilaterally. No audible rales rhonchi or wheezing was noted. CARDIOVASCULAR: There is a regular rate and rhythm without any murmurs gallops or rubs. ABDOMEN: Soft and nontender with normal bowel sounds. SKIN: Skin is clear with no lesions or rashes and otherwise unremarkable. NEUROLOGIC: Patient is alert and oriented x 3 cranial nerves II through XII are gross intact motor and sensory are also intact MUSCULOSKELETAL: Normal extremities with adequate strength and full range of motion. LYMPHATICS: No significant lymphadenopathy is noted PSYCHIATRIC: Normal psychiatric evaluation. Limitations: no limitations Course Vital Signs 12/05/23 12/05/23 12/05/23 12:07 12:52 13:00 Temperature 97.4 F L 98.0 F Pulse Rate 122 H 104 H Pulse Rate [ 105 H Undercover Cop ] Respiratory 20 16 Rate Blood Pressure 98/71 106/77 Blood Pressure [Left Arm Sitting] Blood Pressure [Left Arm Standing] Blood Pressure [Left Arm Supine] Blood Pressure [Right Arm Sitting] O2 Sat by Pulse 99 100 Oximetry 12/05/23 12/05/23 12/05/23 14:20 15:15 16:00 Temperature 98.1 F Pulse Rate 103 H 97 Pulse Rate [ 100 Undercover Cop ] Respiratory 16 18 18 Rate Blood Pressure 115/84 123/91 Blood Pressure 90/73 [Left Arm Sitting] Blood Pressure 87/65 [Left Arm Standing] Blood Pressure 121/81 [Left Arm Supine] Blood Pressure [Right Arm Sitting] O2 Sat by Pulse 99 98 98 Oximetry 12/05/23 12/05/23 12/05/23 16:24 16:26 16:28 Temperature Pulse Rate Pulse Rate [ 93 Undercover Cop ] Respiratory 18 Rate Blood Pressure Blood Pressure [Left Arm Sitting] Blood Pressure 106/80 [Left Arm Standing] Blood Pressure 124/88 [Left Arm Supine] Blood Pressure 115/87 [Right Arm Sitting] O2 Sat by Pulse 100 Oximetry Medical Decision Making - Medical Decision Making Please interpreted by myself EKG shows sinus tachycardia at 112 bpm parables 106 QRS is 86 QT interval 336 QTc is 402. Patient's EKG shows no ST segment ovation or depression. Was pt. sent in by a medical professional or institution (, PA, TACK WELDER, urgent care, hospital, or usp...) When possible be specific @ -Patient was sent to the emergency department by Dr. Wells Did you speak to anyone other than the patient for history (EMS, parent, family, police, friend...)? What history was obtained from this source @ -No Did you review nursing and triage notes (agree or disagree)? Why? @ -I reviewed and agree with nursing and triage notes Were old charts reviewed (outside hosp., previous admission, EMS record, old EKG, old radiological studies, urgent care reports/EKG's, usp records)? Report findings @ -No old charts were reviewed Differential Diagnosis? @ -Differential Weakness: Hypoglycemia, shock, sepsis, hyponatremia, anemia, infection, [place], ETOH, adverse medicine reaction, overdose, stroke, this is not meant to be an all-inclusive list. EKG interpreted by me (3pts min.). @ -As above X-rays interpreted by me (1pt min.). @ -None done CT interpreted by me (1pt min.). @ -None done U/S interpreted by me (1pt. min.). @ -None done What testing was considered but not performed or refused? (CT, X-rays, U/S, labs)? Why? @ -None What meds were considered but not given or refused? Why? @ -None Did you discuss the management of the patient with other professionals (professionals i.e. , PA, TACK WELDER, lab, RT, psych nurse, director social welfare, commercial real estate assistant, teacher, classification officer, piano case and bench assembler)? Give summary @ -No Was smoking cessation discussed for >3mins.? @ -No Was critical care preformed (if so, how long)? @ -No Were there social determinants of health that impacted care today? How? (Homelessness, low income, unemployed, alcoholism, drug addiction, transportation, low edu. Level, literacy, decrease access to med. care, custodial, rehab)? @ -No Was there de-escalation of care discussed even if they declined (Discuss DNR or withdrawal of care, Hospice)? DNR status @ -No What co-morbidities impacted this encounter? (DM, HTN, Smoking, COPD, CAD, Cancer, CVA, ARF, Chemo, Hep., AIDS, mental health diagnosis, sleep apnea, morbid obesity)? @ -None Was patient admitted / discharged? Hospital course, mention meds given and route, prescriptions, significant lab abnormalities, going to OR and other perti nent info. @ -Patient remained asymptomatic in the emergency department however he was orthostatic positive and received 1-1/2 L of fluid after which she felt better and was no longer orthostatic. Patient was comfortable going home and he will follow-up as an outpatient patient remains asymptomatic throughout his whole ED stay Undiagnosed new problem with uncertain prognosis? @ -No Drug Therapy requiring intensive monitoring for toxicity (Heparin, Nitro, Insulin, Cardizem)? @ -No Were any procedures done? @ -No Diagnosis/symptom? @ -Static hypotension Acute, or Chronic, or Acute on Chronic? @ -Acute Uncomplicated (without systemic symptoms) or Complicated (systemic symptoms)? @ -Complicated Side effects of treatment? @ -No Exacerbation, Progression, or Severe Exacerbation? @ -No Poses a threat to life or bodily function? How? (Chest pain, [place], [place], pneumonia, PE, COPD, DKA, ARF, appy, cholecystitis, CVA, Diverticulitis, Homicidal, Suicidal, threat to staff... and all critical care pts) @ -No Diagnosis/symptom? @ -Dehydration Acute, or Chronic, or Acute on Chronic? @ -Acute Uncomplicated (without systemic symptoms) or Complicated (systemic symptoms)? @ -Complicated Side effects of treatment? @ -None Exacerbation, Progression, or Severe Exacerbation] @ -No Poses a threat to life or bodily function? @ -No - Lab Data Result diagrams: 12/05/23 12:57 12/05/23 12:57 Lab Results 12/05/23 12/05/23 12/05/23 Range/Units 12:57 12:57 12:57 WBC 10.0 (3.8-10.6) k/uL RBC 3.52 L (4.30-5.90) m/uL Hgb 11.1 L (13.0-17.5) gm/dL Hct 36.5 L (39.0-53.0) % MCV 103.7 H (80.0-100.0) fL MCH 31.6 (25.0-35.0) pg MCHC 30.4 L (31.0-37.0) g/dL RDW 15.9 H (11.5-15.5) % Plt Count 396 (150-450) k/uL MPV 9.2 Neutrophils % 68 % Lymphocytes % 20 % Monocytes % 7 % Eosinophils % 1 % Basophils % 1 % Neutrophils # 6.8 (1.3-7.7) k/uL Lymphocytes # 2.0 (1.0-4.8) k/uL Monocytes # 0.7 (0-1.0) k/uL Eosinophils # 0.1 (0-0.7) k/uL Basophils # 0.1 (0-0.2) k/uL Hypochromasia Slight Macrocytosis Moderate Sodium 138 (137-145) mmol/L Potassium 4.5 (3.5-5.1) mmol/L Chloride 107 (98-107) mmol/L Carbon Dioxide 25 (22-30) mmol/L Anion Gap 6 mmol/L BUN 21 H (9-20) mg/dL Creatinine 0.42 L (0.66-1.25) mg/dL Est GFR (CKD-EPI)AfAm >90 (>60 ml/min/1.73 sqM) Est GFR (CKD-EPI)NonAf >90 (>60 ml/min/1.73 sqM) Glucose 73 L (74-99) mg/dL Plasma Lactic Acid Jack 1.8 (0.7-2.0) mmol/L Calcium 8.8 (8.4-10.2) mg/dL Magnesium 2.0 (1.6-2.3) mg/dL Total Bilirubin 0.5 (0.2-1.3) mg/dL AST 54 (17-59) U/L ALT 50 H (4-49) U/L Alkaline Phosphatase 84 (38-126) U/L Troponin I (0.000-0.034) ng/mL Total Protein 5.8 L (6.3-8.2) g/dL Albumin 3.4 L (3.5-5.0) g/dL Urine Color Urine Appearance (Clear) Urine pH (5.0-8.0) Ur Specific [place] (1.001-1.035) Urine Protein (Negative) Urine Glucose (UA) (Negative) Urine Ketones (Negative) Urine Blood (Negative) Urine Nitrite (Negative) Urine Bilirubin (Negative) Urine Urobilinogen (<2.0) mg/dL Ur Leukocyte Esterase (Negative) 12/05/23 12/05/23 Range/Units 12:57 13:09 WBC (3.8-10.6) k/uL RBC (4.30-5.90) m/uL Hgb (13.0-17.5) gm/dL Hct (39.0-53.0) % MCV (80.0-100.0) fL MCH (25.0-35.0) pg MCHC (31.0-37.0) g/dL RDW (11.5-15.5) % Plt Count (150-450) k/uL MPV Neutrophils % % Lymphocytes % % Monocytes % % Eosinophils % % Basophils % % Neutrophils # (1.3-7.7) k/uL Lymphocytes # (1.0-4.8) k/uL Monocytes # (0-1.0) k/uL Eosinophils # (0-0.7) k/uL Basophils # (0-0.2) k/uL Hypochromasia Macrocytosis Sodium (137-145) mmol/L Potassium (3.5-5.1) mmol/L Chloride (98-107) mmol/L Carbon Dioxide (22-30) mmol/L Anion Gap mmol/L BUN (9-20) mg/dL Creatinine (0.66-1.25) mg/dL Est GFR (CKD-EPI)AfAm (>60 ml/min/1.73 sqM) Est GFR (CKD-EPI)NonAf (>60 ml/min/1.73 sqM) Glucose (74-99) mg/dL Plasma Lactic Acid Jack (0.7-2.0) mmol/L Calcium (8.4-10.2) mg/dL Magnesium (1.6-2.3) mg/dL Total Bilirubin (0.2-1.3) mg/dL AST (17-59) U/L ALT (4-49) U/L Alkaline Phosphatase (38-126) U/L Troponin I <0.012 (0.000-0.034) ng/mL Total Protein (6.3-8.2) g/dL Albumin (3.5-5.0) g/dL Urine Color Yellow Urine Appearance Clear (Clear) Urine pH 7.0 (5.0-8.0) Ur Specific [place] 1.017 (1.001-1.035) Urine Protein Trace H (Negative) Urine Glucose (UA) Negative (Negative) Urine Ketones Negative (Negative) Urine Blood Negative (Negative) Urine Nitrite Negative (Negative) Urine Bilirubin Negative (Negative) Urine Urobilinogen <2.0 (<2.0) mg/dL Ur Leukocyte Esterase Negative (Negative) Disposition Clinical Impression: Dehydration, Orthostatic hypotension Disposition: HOME SELF-CARE Condition: Good Instructions (If sedation given, give patient instructions): Dehydration (ED), Hypotension (ED) Is patient prescribed a controlled substance at d/c from ED?: No Referrals: Misael Hopkins MD [Primary Care Provider] - 1-2 days Time of Disposition: 16:47
[2023-12-05] MEDS: SODIUM CHLORIDE 0.9% 500 ML 500 ML IV STA (13:03)
[2023-12-05 13:08] LABS: Basophils # (A) 0.1 k/uL (0-0.2); Basophils % (A) 1 %; Eosinophils # (A) 0.1 k/uL (0-0.7); Eosinophils % (A) 1 %; HCT 36.5 % (39.0-53.0); HGB 11.1 gm/dL (13.0-17.5); Hypochromasia Slight; Lymphocytes % (A) 20 %; MCH 31.6 pg (25.0-35.0); MCHC 30.4 g/dL (31.0-37.0); MCV 103.7 fL (80.0-100.0); Macrocytosis Moderate; Mean Platelet Volume 9.2; Monocytes # (A) 0.7 k/uL (0-1.0); Monocytes % (A) 7 %; Neutrophils # (A) 6.8 k/uL (1.3-7.7); Neutrophils % (A) 68 %; Platelet Count 396 k/uL (150-450); RBC 3.52 m/uL (4.30-5.90); RDW 15.9 % (11.5-15.5)
[2023-12-05 13:41] LABS: ALT 50 U/L (4-49); African American GFR (CKD) >90 (>60 ml/min/1.73 sqM); Albumin 3.4 g/dL (3.5-5.0); Alkaline Phosphatase 84 U/L (38-126); Anion Gap 6 mmol/L; Blood Urea Nitrogen 21 mg/dL (9-20); Calcium 8.8 mg/dL (8.4-10.2); Carbon Dioxide 25 mmol/L (22-30); Chloride 107 mmol/L (98-107); Glucose 73 mg/dL (74-99); Non-African American GFR(CKD) >90 (>60 ml/min/1.73 sqM); Sodium 138 mmol/L (137-145); Total Bilirubin 0.5 mg/dL (0.2-1.3); Total Protein 5.8 g/dL (6.3-8.2)
[2023-12-05 13:43] LABS: Appearance,Urine Clear (Clear); Bilirubin,Urine Negative (Negative); Blood,Urine Negative (Negative); Color,Urine Yellow; Glucose,Urine (UA) Negative (Negative); Ketones,Urine Negative (Negative); Leukocyte Esterase,Urine Negative (Negative); Nitrite,Urine Negative (Negative); Protein,Urine Trace (Negative); Specific Gravity,Urine 1.017 (1.001-1.035); Urobilinogen,Urine <2.0 mg/dL (<2.0)
[2023-12-05] MEDS: SODIUM CHLORIDE 0.9% 1,000 ML IV ONE (15:17)
[2023-12-05 15:18] VITALS: RESP 18
[2023-12-05 15:48] LABS: AST 54 U/L (17-59); Potassium 4.5 mmol/L (3.5-5.1)
[2023-12-05 16:32] VITALS: BP 106/80; PULSE 93
[2023-12-05 17:03] VITALS: TEMP 97.9
== END 2023-12-05 17:02 | disposition home or self-care (01) ==
LOC: EC 12:02
DX: E86.0 Dehydration (principal); I95.1 Orthostatic hypotension; F17.200 Nicotine dependence, unspecified, uncomplicated
CPT/HCPCS: 36415; 80053; 81003; 83605; 83735; 84484; 85025; 93005; 96360; 96361; 99285

== ENCOUNTER 2024-01-04 12:21 | Observation (INO) | payer MEDICARE ==
--- NOTE | 2024-01-04 12:48 | ED ---
Nausea/Vomiting/Diarrhea HPI - General Source: patient, family, RN notes reviewed <Yanelis Vela - Last Filed: 01/04/24 12:47> - General Source: patient, family, RN notes reviewed Mode of arrival: ambulatory Limitations: no limitations <Yulissa Cabrera - Last Filed: 01/04/24 19:03> - General Stated complaint: vomitting/dizzy/lightheaded Time Seen by Provider: 01/04/24 12:40 - History of Present Illness Initial comments: Quick [id number]-old male with PEG tube in place due to esophageal dysfunction presents emergency department chief complaint of nausea and vomiting last 3 days. Patient states that he is having epigastric and upper abdominal pain from vomiting. He states that he has had intermittent fevers as well. States that she is still having bowel movements and passing gas. (Yanelis Vela) 68-year-old male presented to the ER with a chief complaint of nausea and vomiting. Patient has a past medical history significant of hiatal hernia with esophageal immobility and has a PEG tube in place. Family reports since 01-01-2024, patient has been experiencing intermittent nausea and vomiting. Patient typically has 5 PEG tube feedings daily and is only consumed 4 out of 5 yesterday and none today. Patient has been having persistent nausea without relief of ODT Zofran. He also is describing left upper quadrant abdominal pain. He denies fevers but reports chills. Denies any chest pain, shortness of breath, constipation/diarrhea or urinary complaints. (Yulissa Cabrera) - Related Data Home Medications Medication Instructions Recorded Confirmed Sertraline [Zoloft] 25 mg PO DAILY 08/08/23 01/04/24 Pantoprazole [Protonix] 40 mg PO AC-BRKFST 10/29/23 01/04/24 Metoprolol Tartrate [Lopressor] 25 mg PO BID 12/05/23 01/04/24 busPIRone HCL [Buspar] 7.5 mg PO BID 12/05/23 01/04/24 Ondansetron Odt [Zofran Odt] 4 mg PO Q8H PRN 01/04/24 01/04/24 Allergies Allergy/AdvReac Type Severity Reaction Status Date / Time No Known Allergies Allergy Verified 01/04/24 17:47 Review of Systems ROS Other: All systems not noted in ROS Statement are negative. <Yanelis Vela - Last Filed: 01/04/24 12:47> ROS Other: All systems not noted in ROS Statement are negative. <Yulissa Cabrera - Last Filed: 01/04/24 19:03> ROS Statement: Those systems with pertinent positive or pertinent negative responses have been documented in the HPI. Past Medical History Past Medical History: Asthma, Coronary Artery Disease (CAD), Chest Pain / Angina, CVA/TIA, GERD/Reflux, Hyperlipidemia, Hypertension, Pneumonia, Rheumatoid Arthritis (RA) Additional Past Medical History / Comment(s): MIGRAINES, HEART MURMUR, hx HIATAL HERNIA, ANEMIA, one dr told him he had a stroke at one time-no effects, varicose veins, history of incarcerated per esophageal hernia, status post robotic-assisted paraesophageal hernia repair and Frederick fundoplication on 04/12/2022. History of Any Multi-Drug Resistant Organisms: None Reported Past Surgical History: Cholecystectomy, Heart Catheterization, Hernia Repair, Orthopedic Surgery Additional Past Surgical History / Comment(s): Lt achilles tendon,RT SHOULDER surgery, RT ACHILLES TENDON reattached, HEMORRHOIDECTOMY, 13 FATTY TUMORS removed. left hand index finger surgery after injury, EGD WITH DILATION, paraesophageal hernia repair with Frederick fundoplication on 04/12/2022. Past Anesthesia/Blood Transfusion Reactions: No Reported Reaction Additional Past Anesthesia/Blood Transfusion Reaction / Comment(s): no hx blood transfusion Past Psychological History: Anxiety, Depression Smoking Status: Current some day smoker Past Alcohol Use History: None Reported Past Drug Use History: Marijuana - Past Family History Mother Family Medical History: Cancer Father Additional Family Medical History / Comment(s): thinks aneurysm <Yanelis Vela - Last Filed: 01/04/24 12:47> General Exam <Yanelis Vela - Last Filed: 01/04/24 12:47> General appearance: alert, in no apparent distress Respiratory exam: Present: normal lung sounds bilaterally. Absent: respiratory distress, wheezes, rales, rhonchi, stridor Cardiovascular Exam: Present: regular rate, normal rhythm, normal heart sounds. Absent: systolic murmur, diastolic murmur, rubs, gallop, clicks GI/Abdominal exam: Present: soft, tenderness (LUQ. PEG tube in place left upper quadrant. No surrounding erythema or purulent drainage.), normal bowel sounds Extremities exam: Present: normal inspection, full ROM, normal capillary refill. Absent: tenderness, pedal edema, joint swelling, calf tenderness Neurological exam: Present: alert, oriented X3, CN II-XII intact Skin exam: Present: warm, intact, normal color, diaphoretic (Mild) <Yulissa Cabrera - Last Filed: 01/04/24 19:03> - General Exam Comments Initial Comments: Visual Physical Exam Vital signs reviewed General: Well-appearing, nontoxic, no acute distress. Head: Normocephalic, atraumatic Eyes: PERRLA, EOMI ENT: Airway patent Chest: Nonlabored breathing Skin: No visual rash, normal skin tone Neuro: Alert and oriented 3 Musculoskeletal: No gross abnormalities (Yanelis Vela) Course <Yulissa Cabrera - Last Filed: 01/04/24 19:03> Vital Signs 01/04/24 01/04/24 13:21 17:34 Temperature 97.6 F Pulse Rate 88 92 Respiratory 18 20 Rate Blood Pressure 146/103 164/102 O2 Sat by Pulse 100 96 Oximetry - Reevaluation(s) Reevaluation #1: 01/04/24 17:46 Case discussed with [facility], Dr. Nicole, for admission. (Yulissa Cabrera) Medical Decision Making <Yanelis Vela - Last Filed: 01/04/24 12:47> - Lab Data Result diagrams: 01/04/24 13:23 01/04/24 13:23 - Radiology Data Radiology results: report reviewed, image reviewed <Yulissa Cabrera - Last Filed: 01/04/24 19:03> - Medical Decision Making I completed the quick note portion of this chart signed Yanelis Vela PA-C (Yanelis Vela) Was pt. sent in by a medical professional or institution ([facility]IA[facility] Sylvester, VOCATIONAL EXAMINER, urgent care, hospital, or group home...) When possible be specific @ -No Did you speak to anyone other than the patient for history (EMS, parent, family, police, friend...)? What history was obtained from this source @ -Family at bedside aiding in HPI and past medical history. Did you review nursing and triage notes (agree or disagree)? Why? @ -I reviewed and agree with nursing and triage notes Were old charts reviewed (outside hosp., previous admission, EMS record, old EKG, old radiological studies, urgent care reports/EKG's, group home records)? Report findings @ -Yes I reviewed admission notes from admission on 11-03-2023. Patient treated for malnutrition and discharged on 11-13-2023. Differential Diagnosis (chest pain, altered mental status, abdominal pain women, abdominal pain men, vaginal bleeding, weakness, fever, dyspnea, syncope, headache, dizziness, GI bleed, back pain, seizure, CVA, palpatations, mental health, musculoskeletal)? @ -Differential Abdominal Pain Men: Appendicitis, cholecystitis, diverticulosis, ischemic bowel, pancreatitis, hepatitis, UTI, gastroenteritis, AAA, incarcerated hernia, bowel obstruction, constipation, inflammatory bowel, hepatitis, peptic ulcer disease, splenic infarction, perforated viscus, testicular torsion, this is not meant to be an all-inclusive list EKG interpreted by me (3pts min.). @ - None X-rays interpreted by me (1pt min.). @ -None done CT interpreted by me (1pt min.). @ -CT abdomen pelvis showing prominent fluid-filled small bowel loops in the lower abdomen and moderate circumferential wall thickening along the ascending colon consider nonspecific enterocolitis. Postsurgical changes at the GE junction with moderate circumferential thickening at the distal esophagus that could represent a tiny residual hiatal hernia versus distal esophagitis. 1.1 cm subpleural density peripherally of the left lower lobe unchanged from prior. U/S interpreted by me (1pt. min.). @ -None done What testing was considered but not performed or refused? (CT, X-rays, U/S, labs)? Why? @ -None What meds were considered but not given or refused? Why? @ -None Did you discuss the management of the patient with other professionals (professionals i.e. , PA, VOCATIONAL EXAMINER, lab, RT, psych nurse, social work program coordinator, corporation lawyer, teacher, house officer, comp field case manager)? Give summary @ -Yes, case discussed with Dr. Nicole, [facility], for admission. Was smoking cessation discussed for >3mins.? @ -No Was critical care preformed (if so, how long)? @ -No Were there social determinants of health that impacted care today? How? (Homeles sness, low income, unemployed, alcoholism, drug addiction, transportation, low edu. Level, literacy, decrease access to med. care, halfway, rehab)? @ -No Was there de-escalation of care discussed even if they declined (Discuss DNR or withdrawal of care, Hospice)? DNR status @ -No What co-morbidities impacted this encounter? (DM, HTN, Smoking, COPD, CAD, Cancer, CVA, ARF, Chemo, Hep., AIDS, mental health diagnosis, sleep apnea, morbid obesity)? @ -PEG tube in place due to malnutrition. Was patient admitted / discharged? Hospital course, mention meds given and route, prescriptions, significant lab abnormalities, going to OR and other pertinent info. @ -Admitted. 68-year-old male presenting to the ER with a chief complaint nausea and vomiting. Patient recently released on 11-13-2023 for treatment of malnutrition and dysphagia. Patient originally seen and initial orders completed as a quick note. Upon my evaluation, history and physical exam completed. Vitals stable. Patient in no signs of acute distress but is mildly diaphoretic on exam. Abdominal exam remarkable for left upper quadrant abdominal tenderness. No rebound or guarding. Normal bowel sounds. There is a PEG tube in place in the left upper quadrant. No surrounding erythema or purulent drainage present surrounding insertion site. Laboratory studies obtained remarkable for a leukocytosis with blood cell count 18.8 with a left shift. Lactic acidosis at 3.3. CT abdomen pelvis with findings concerning of a nonspecific enterocolitis. Admission considered due to enterocolitis. I discussed this case with [facility], Dr. Nicole, for admission. Patient started on ciprofloxacin and Flagyl. GI on consult. Patient received 1 L IV fluids and symptomatic control in the ER. Patient agreeable for admission. Patient adm itted in stable condition for further evaluation and treatment. Case discussed with ED attending, Dr. Rodgers. Undiagnosed new problem with uncertain prognosis? @ -No Drug Therapy requiring intensive monitoring for toxicity (Heparin, Nitro, Insulin, Cardizem)? @ -No Were any procedures done? @ -No Diagnosis/symptom? @ -Enterocolitis/lactic acidosis Acute, or Chronic, or Acute on Chronic? @ -Acute Uncomplicated (without systemic symptoms) or Complicated (systemic symptoms)? @ -Complicated Side effects of treatment? @ -No Exacerbation, Progression, or Severe Exacerbation? @ -No Poses a threat to life or bodily function? How? (Chest pain, USA, IA, pneumonia, PE, COPD, DKA, ARF, appy, cholecystitis, CVA, Diverticulitis, Homicidal, Suicidal, threat to staff... and all critical care pts) @ -Possibly, infection can lead to sepsis which is life threatening. (Yulissa Cabrera) - Lab Data Lab Results 01/04/24 01/04/24 01/04/24 Range/Units 13:23 13:23 13:23 WBC 18.8 H (3.8-10.6) k/uL RBC 4.43 (4.30-5.90) m/uL Hgb 13.8 (13.0-17.5) gm/dL Hct 42.9 (39.0-53.0) % MCV 96.7 D (80.0-100.0) fL MCH 31.2 (25.0-35.0) pg MCHC 32.3 (31.0-37.0) g/dL RDW 14.6 (11.5-15.5) % Plt Count 439 (150-450) k/uL MPV 9.0 Neutrophils % 89 % Lymphocytes % 5 % Monocytes % 5 % Eosinophils % 1 % Basophils % 0 % Neutrophils # 16.8 H (1.3-7.7) k/uL Lymphocytes # 0.9 L (1.0-4.8) k/uL Monocytes # 0.9 (0-1.0) k/uL Eosinophils # 0.1 (0-0.7) k/uL Basophils # 0.0 (0-0.2) k/uL Hypochromasia Slight Sodium 144 (137-145) mmol/L Potassium 4.0 (3.5-5.1) mmol/L Chloride 104 (98-107) mmol/L Carbon Dioxide 27 (22-30) mmol/L Anion Gap 13 mmol/L BUN 25 H (9-20) mg/dL Creatinine 0.54 L (0.66-1.25) mg/dL Est GFR (CKD-EPI)AfAm >90 (>60 ml/min/1.73 sqM) Est GFR (CKD-EPI)NonAf >90 (>60 ml/min/1.73 sqM) Glucose 170 H (74-99) mg/dL Lactic Ac Sepsis Rflx Plasma Lactic Acid Jack 3.3 H* (0.7-2.0) mmol/L Calcium 9.7 (8.4-10.2) mg/dL Total Bilirubin 0.4 (0.2-1.3) mg/dL AST 46 (17-59) U/L ALT 63 H (4-49) U/L Alkaline Phosphatase 84 (38-126) U/L Total Protein 7.8 (6.3-8.2) g/dL Albumin 4.8 (3.5-5.0) g/dL Amylase 78 (30-110) U/L Lipase 31 (23-300) U/L 01/04/24 01/04/24 Range/Units 14:07 16:57 WBC (3.8-10.6) k/uL RBC (4.30-5.90) m/uL Hgb (13.0-17.5) gm/dL Hct (39.0-53.0) % MCV (80.0-100.0) fL MCH (25.0-35.0) pg MCHC (31.0-37.0) g/dL RDW (11.5-15.5) % Plt Count (150-450) k/uL MPV Neutrophils % % Lymphocytes % % Monocytes % % Eosinophils % % Basophils % % Neutrophils # (1.3-7.7) k/uL Lymphocytes # (1.0-4.8) k/uL Monocytes # (0-1.0) k/uL Eosinophils # (0-0.7) k/uL Basophils # (0-0.2) k/uL Hypochromasia Sodium (137-145) mmol/L Potassium (3.5-5.1) mmol/L Chloride (98-107) mmol/L Carbon Dioxide (22-30) mmol/L Anion Gap mmol/L BUN (9-20) mg/dL Creatinine (0.66-1.25) mg/dL Est GFR (CKD-EPI)AfAm (>60 ml/min/1.73 sqM) Est GFR (CKD-EPI)NonAf (>60 ml/min/1.73 sqM) Glucose (74-99) mg/dL Lactic Ac Sepsis Rflx Y Plasma Lactic Acid Jack 4.0 H* (0.7-2.0) mmol/L Calcium (8.4-10.2) mg/dL Total Bilirubin (0.2-1.3) mg/dL AST (17-59) U/L ALT (4-49) U/L Alkaline Phosphatase (38-126) U/L Total Protein (6.3-8.2) g/dL Albumin (3.5-5.0) g/dL Amylase (30-110) U/L Lipase (23-300) U/L Disposition <Yanelis Vela - Last Filed: 01/04/24 12:47> Time of Disposition: 17:47 <Yulissa Cabrera - Last Filed: 01/04/24 19:03> Clinical Impression: Enterocolitis, Lactic acidosis Disposition: ADMITTED IP TO THIS HOSP Condition: Stable Referrals: Misael Hopkins MD [Primary Care Provider] - 1-2 days
[2024-01-04 13:47] LABS: Basophils % (A) 0 %; Eosinophils # (A) 0.1 k/uL (0-0.7); Eosinophils % (A) 1 %; HCT 42.9 % (39.0-53.0); HGB 13.8 gm/dL (13.0-17.5); Hypochromasia Slight; Lymphocytes # (A) 0.9 k/uL (1.0-4.8); Lymphocytes % (A) 5 %; MCH 31.2 pg (25.0-35.0); MCHC 32.3 g/dL (31.0-37.0); Monocytes # (A) 0.9 k/uL (0-1.0); Monocytes % (A) 5 %; Neutrophils # (A) 16.8 k/uL (1.3-7.7); Neutrophils % (A) 89 %; Platelet Count 439 k/uL (150-450); RBC 4.43 m/uL (4.30-5.90); RDW 14.6 % (11.5-15.5); WBC 18.8 k/uL (3.8-10.6)
[2024-01-04 14:01] LABS: African American GFR (CKD) >90 (>60 ml/min/1.73 sqM); Anion Gap 13 mmol/L; Blood Urea Nitrogen 25 mg/dL (9-20); Carbon Dioxide 27 mmol/L (22-30); Chloride 104 mmol/L (98-107); Glucose 170 mg/dL (74-99); Sodium 144 mmol/L (137-145)
[2024-01-04 14:02] LABS: ALT 63 U/L (4-49); AST 46 U/L (17-59); Albumin 4.8 g/dL (3.5-5.0); Alkaline Phosphatase 84 U/L (38-126); Amylase 78 U/L (30-110); Calcium 9.7 mg/dL (8.4-10.2); Lipase 31 U/L (23-300); Non-African American GFR(CKD) >90 (>60 ml/min/1.73 sqM); Total Bilirubin 0.4 mg/dL (0.2-1.3); Total Protein 7.8 g/dL (6.3-8.2)
[2024-01-04 14:06] LABS: MCV 96.7 fL (80.0-100.0)
--- NOTE | 2024-01-04 15:27 | CT ---
EXAMINATION TYPE: CT abdomen pelvis w con DATE OF EXAM: 01/04/2024 COMPARISON: 11/03/2023, 11/04/2022 HISTORY: 68-year-old male N/V abdominal pain, PEG tube TECHNIQUE: Contiguous axial scanning of the abdomen and pelvis following administration of 100 ml Iso domo 300 IV contrast. Delayed images through the kidneys and coronal/sagittal reconstructions perform ed. CT DLP: 612.1 mGycm Automated exposure control for dose reduction was used. FINDINGS: The heart is normal size without pericardial effusion. A focal subpleural nodule periphery of the lef t lower lobe measuring 1.1 cm is unchanged from 11/03/2023 but appears to be new from 11/04/2022. A 4 mm posterior left basilar pulmonary nodule is unchanged. No pleural effusion. There is circumferential thickening of the distal esophagus with some retained fluid. Postsurgical ch amarilis of the GE junction possibly related to prior hiatal hernia repair. A PEG tube is in place. No dilated small bowel, free fluid, or free air. Some prominent fluid-filled small bowel loops in the lower abdomen and some moderate circumferential wall thickening along the as cending colon, axial image 36 and 40 and coronal image 45. Mild overall stone burden. No pericolonic inflammatory change. Normal appendix. No focal liver lesion or biliary ductal dilatation. Portal venous system is patent. Cholecystectomy c lips. Adrenal glands, spleen with tiny anterior splenule, and pancreas show no gross abnormality. A few scattered small parapelvic and cortical cysts measuring up to 1.1 cm. Symmetric uptake and excr etion of contrast from both kidneys. No mesenteric or retroperitoneal lymphadenopathy seen. Bladder is urine distended. Suggestion of a lateral bladder wall diverticulum on the left measuring u p to 3.4 cm and possibly containing a couple calculi measuring up to 7 mm. Prostate gland mildly enla rged at 4.6 cm wide. No abnormal fluid collection in the pelvis or pelvic lymphadenopathy otherwise s een. Facet arthropathy lower lumbar spine. Moderate degenerative disc disease L3-L4 and L4-L5. Fatty matri x hemangioma T12 vertebral body and some bridging anterior endplate spondylosis lower thoracic spine. IMPRESSION: 1. SOME PROMINENT FLUID-FILLED SMALL BOWEL LOOPS IN THE LOWER ABDOMEN AND MODERATE CIRCUMFERENTIAL WA LL THICKENING ALONG THE ASCENDING COLON. CONSIDER A NONSPECIFIC ENTEROCOLITIS. 2. POSTSURGICAL CHANGE AT THE GE JUNCTION POSSIBLY RELATED TO PRIOR HIATAL HERNIA REPAIR. THERE IS MO DERATE CIRCUMFERENTIAL THICKENING AT THE DISTAL ESOPHAGUS THAT COULD REPRESENT A TINY RESIDUAL HIATAL HERNIA VERSUS DISTAL ESOPHAGITIS. CONSIDER DIRECT VISUALIZATION. SOME FLUID HERE IN THE DISTAL ESOPH LUCRETIA COULD REFLECT GASTROESOPHAGEAL REFLUX, DYSMOTILITY, OR STRICTURE. 3. A 1.1 CM SUBPLEURAL DENSITY PERIPHERY OF THE LEFT LOWER LOBE UNCHANGED FROM 11/03/2023 BUT NEW FROM 11/04/2022. ATTENTION ON [address] FOLLOW-UP CT.
[2024-01-04] MEDS: SODIUM CHLORIDE 0.9% 1,000 ML IV STA ×2 (17:30→17:44)
[2024-01-04] MEDS: cefTRIAXone IN SWFI 1,000 MG/10 ML SYRINGE IVP STA (17:41)
[2024-01-04] MEDS: ONDANSETRON 4 MG/2 ML VIAL IVP STA (17:41)
[2024-01-04] MEDS: metroNIDAZOLE-NS PMX 500 MG in SALINE 1 100ML.BAG IVPB STA (17:42)
[2024-01-04] MEDS: KETOROLAC 15 MG/ML 1 ML VIAL IVP STA (17:42)
[2024-01-04] MEDS ORDERED: NALOXONE 0.4 MG/ML 1 ML VIAL IV PRN (17:45)
[2024-01-04] MEDS ORDERED: ACETAMINOPHEN TAB 325 MG TAB PO PRN (17:45)
[2024-01-04] MEDS: METOCLOPRAMIDE 5 MG/ML 2 ML VIAL IVP PRN (23:04)
[2024-01-04] MEDS: METOPROLOL TARTRATE 25 MG TAB PO SCH (23:19)
[2024-01-04] MEDS: busPIRone HCl 5 MG TAB PO SCH (23:19)
[2024-01-05] MEDS: PROCHLORPERAZINE INJ 10 MG/2 ML VIAL IVP STA (02:55)
[2024-01-05] MEDS: ONDANSETRON 4 MG/2 ML VIAL IVP PRN (04:08)
[2024-01-05] MEDS: SCOPOLAMINE 1 MG/72 HR PATCH TRANSDERM SCH (08:15)
[2024-01-05] MEDS: PANTOPRAZOLE 40 MG TABLET PO SCH (08:18)
[2024-01-05] MEDS: SERTRALINE 25 MG TAB PO SCH (08:18)
[2024-01-05 08:27] LABS: African American GFR (CKD) >90 (>60 ml/min/1.73 sqM); Anion Gap 5 mmol/L; Blood Urea Nitrogen 27 mg/dL (9-20); Calcium 8.5 mg/dL (8.4-10.2); Carbon Dioxide 26 mmol/L (22-30); Chloride 111 mmol/L (98-107); Glucose 125 mg/dL (74-99); Non-African American GFR(CKD) >90 (>60 ml/min/1.73 sqM); Sodium 142 mmol/L (137-145)
[2024-01-05 08:55] LABS: Basophils % (A) 0 %; Eosinophils % (A) 0 %; HCT 37.4 % (39.0-53.0); HGB 12.2 gm/dL (13.0-17.5); Hypochromasia Slight; Lymphocytes # (A) 1.2 k/uL (1.0-4.8); Lymphocytes % (A) 9 %; MCH 31.4 pg (25.0-35.0); MCHC 32.5 g/dL (31.0-37.0); MCV 96.6 fL (80.0-100.0); Mean Platelet Volume 9.3; Monocytes % (A) 7 %; Neutrophils # (A) 11.1 k/uL (1.3-7.7); Neutrophils % (A) 81 %; Platelet Count 350 k/uL (150-450); RBC 3.87 m/uL (4.30-5.90); WBC 13.6 k/uL (3.8-10.6)
[2024-01-05 09:07] LABS: Potassium 4.3 mmol/L (3.5-5.1)
[2024-01-05] MEDS: HALOPERIDOL LACTATE 5 MG/ML 1 ML VIAL IVP STA (11:36)
--- NOTE | 2024-01-05 14:59 | P.CONS ---
History of Present Illness - Reason for Consult Consult date: 01/05/24 (Late entry. Patient initially seen 0645) Enterocolitis Requesting physician: Yulissa Cabrera - Chief Complaint Nausea and vomiting - History of Present Illness This is a pleasant 68-year-old white male who presented to the emergency department with complaints of nausea and vomiting for the last 3 days duration. He has a past medical history including esophageal dysfunction with PEG tube that was placed 10/24/[address] Pavon, paraesophageal hiatal hernia status post Frederick fundoplication in April [address] Pavon as well as laparoscopic repair of paraesophageal hiatal hernia with mesh done on 09/25/[address] Pavon. He has had multiple emergency room visits and recent hospitalization with multiple workup for continued nausea and vomiting. He is presenting back with nausea and vomiting had a CT of the abdomen pelvis with contrast reporting possible nonspecific enterocolitis. Gastroenterology was consulted for enterocolitis. Patient denies any recent sick contacts. States he also has diarrhea associated with the nausea and vomiting. Is well as right lower quadrant pain and left upper quadrant pain. He was admitted with positive lactic acid and leukocytosis. He has been on multiple antiemetics without much improvement in the nausea and vomiting. He was started on Flagyl and Rocephin with the medical team. Nursing is reporting that he had Compazine through the night and that did seem to help. No hematemesis. No blood in his stool. Today's labs WBC is improved, WBC 13.6 hemoglobin 12.2 platelet count 350,000 sodium 142 potassium 4.3 BUN 27 creatinine 0.4 lactic acid 1.5. Patient has been afebrile. Review of Systems REVIEW OF SYSTEMS: CARDIOPULMONARY: No chest pain or shortness of breath. Gastrointestinal: Abdominal pain. Intractable nausea and vomiting for 3 days, with chronic nausea and vomiting. No hematemesis, coffee-ground emesis. Diarrhea. No rectal bleeding, or melena. GENITOURINARY: No dysuria or hematuria. MUSCULOSKELETAL: Reports normal range of motion. SKIN: No rashes. No jaundice. ENDOCRINE: No chills, fevers. No excessive weight gain or loss. No polydipsia or polyuria. PSYCHIATRIC: Unremarkable. NEUROLOGY: No change in mental status. Denies dizziness, headache. ENT: Vision unremarkable. CONSTITUTIONAL: No recent weight loss. No fever, chills, night sweats. Past Medical History Past Medical History: Asthma, Coronary Artery Disease (CAD), Chest Pain / Angina, CVA/TIA, GERD/Reflux, Hyperlipidemia, Hypertension, Pneumonia, Rheumatoid Arthritis (RA) Additional Past Medical History / Comment(s): MIGRAINES, HEART MURMUR, hx HIATAL HERNIA, ANEMIA, one dr told him he had a stroke at one time-no effects, varicose veins, history of incarcerated per esophageal hernia, status post robotic-assisted paraesophageal hernia repair and Frederick fundoplication on 04/12/2022. History of Any Multi-Drug Resistant Organisms: None Reported Past Surgical History: Cholecystectomy, Heart Catheterization, Hernia Repair, Orthopedic Surgery Additional Past Surgical History / Comment(s): Lt achilles tendon,RT SHOULDER surgery, RT ACHILLES TENDON reattached, HEMORRHOIDECTOMY, 13 FATTY TUMORS removed. left hand index finger surgery after injury, EGD WITH DILATION, paraesophageal hernia repair with Frederick fundoplication on 04/12/2022. PEG tube Past Anesthesia/Blood Transfusion Reactions: No Reported Reaction Additional Past Anesthesia/Blood Transfusion Reaction / Comm: no hx blood transfusion Past Psychological History: Anxiety, Depression Smoking Status: Current some day smoker Past Alcohol Use History: None Reported Past Drug Use History: Marijuana - Past Family History Mother Family Medical History: Cancer Father Additional Family Medical History / Comment(s): thinks aneurysm Medications and Allergies Home Medications Medication Instructions Recorded Confirmed Type Sertraline [Zoloft] 25 mg PO DAILY 08/08/23 01/04/24 History Pantoprazole [Protonix] 40 mg PO AC-BRKFST 10/29/23 01/04/24 History Metoprolol Tartrate [Lopressor] 25 mg PO BID 12/05/23 01/04/24 History busPIRone HCL [Buspar] 7.5 mg PO BID 12/05/23 01/04/24 History Ondansetron Odt [Zofran Odt] 4 mg PO Q8H PRN 01/04/24 01/04/24 History Allergies Allergy/AdvReac Type Severity Reaction Status Date / Time No Known Allergies Allergy Verified 01/05/24 13:42 Physical Exam Vitals: Vital Signs Temp Pulse Resp BP BP Pulse Ox 01/05/24 14:00 97.2 F L 20 167/110 99 01/05/24 12:25 68 16 162/95 98 01/05/24 11:32 68 17 155/98 97 01/05/24 08:00 90 17 161/88 97 01/05/24 01:00 16 96 01/04/24 23:44 90 16 154/102 98 01/04/24 23:00 94 16 129/75 95 01/04/24 17:34 92 20 164/102 96 Intake and Output 01/04/24 01/05/24 01/05/24 22:59 06:59 14:59 Other: Weight 56.699 kg General appearance: The patient is alert, oriented, appears in no acute distress. HET: Head is normocephalic and atraumatic. Conjunctiva pink. Sclera anicteric. Neck: Supple without lymphadenopathy. Trachea midline. Heart: Regular. Lungs: Equal expansion, normal respiratory effort. Abdomen: Soft, left upper quadrant and right lower quadrant tenderness nondistended. Skin: No rashes. No jaundice. Extremities: Normal skin color and turgor. No pedal edema. Neurological: No focal deficits. Alert and oriented x3. Results CBC & Chem 7: 01/05/24 08:30 01/05/24 07:12 Labs: Abnormal Lab Results - Last 24 Hours (Table) 01/04/24 01/04/24 01/05/24 Range/Units 16:57 23:45 07:12 WBC (3.8-10.6) k/uL RBC (4.30-5.90) m/uL Hgb (13.0-17.5) gm/dL Hct (39.0-53.0) % Neutrophils # (1.3-7.7) k/uL Chloride 111 H (98-107) mmol/L BUN 27 H (9-20) mg/dL Creatinine 0.45 L (0.66-1.25) mg/dL Glucose 125 H (74-99) mg/dL Plasma Lactic Acid Jack 4.0 H* 3.5 H* (0.7-2.0) mmol/L 01/05/24 Range/Units 08:30 WBC 13.6 H (3.8-10.6) k/uL RBC 3.87 L (4.30-5.90) m/uL Hgb 12.2 L (13.0-17.5) gm/dL Hct 37.4 L (39.0-53.0) % Neutrophils # 11.1 H (1.3-7.7) k/uL Chloride (98-107) mmol/L BUN (9-20) mg/dL Creatinine (0.66-1.25) mg/dL Glucose (74-99) mg/dL Plasma Lactic Acid Jack (0.7-2.0) mmol/L Comments: CT abdomen pelvis with contrast Reports some prominent fluid-filled small bowel loops in the lower abdomen and moderate circumferential wall thickening along the ascending colon. Consider a nonspecific enterocolitis. Postsurgical changes at the GE junction possibly related to prior hiatal hernia repair. There is moderate circumferential thickening at the distal esophagus that could represent a tiny residual hiatal hernia versus distal esophagitis. Consider direct visualization. Some fluid here in the distal esophagus could reflect gastroesophageal reflux, dysmotility or stricture. A 1.1 cm subpleural density periphery of the left lower lobe unchanged from 11/03/2023 but new from 11/04/2022. Attention on 6-month follow-up CT Assessment and Plan (1) Abdominal pain Narrative/Plan: 68-year-old male coming in with abdominal pain and intractable nausea and vomiting and diarrhea for the last 3 days duration. Nonbloody nonbilious with history of chronic nausea and vomiting with multiple workup for the nausea and vomiting with history of Niesen fundoplication requiring laparoscopic repair of paraesophageal hiatal hernia earlier this year. He has had multiple endoscopic evaluation. CT abdomen pelvis reports possible enterocolitis. Abdominal pain nausea and vomiting likely secondary to infectious enterocolitis which likely will resolve on its own. Continue with antiemetics, GI prophylaxis and IV hydra tion. Current Visit: No Status: Acute Code(s): R10.9 - UNSPECIFIED ABDOMINAL PAIN SNOMED Code(s): 35915245 (2) Intractable nausea and vomiting Narrative/Plan: Likely intractable nausea and vomiting acute on chronic secondary to possible enterocolitis however need to consider other source with patient's history of chronic nausea and vomiting and repeat hospitalizations. Will consult general surgery for further evaluation and recommendations. Continue with symptomatic treatment. Keep n.p.o. for now until further evaluated by general surgery. Current Visit: No Status: Acute Code(s): R11.2 - NAUSEA WITH VOMITING, UNSPECIFIED SNOMED Code(s): 018421146 (3) Presence of externally removable percutaneous endoscopic gastrostomy (PEG) tube Current Visit: Yes Status: Acute Code(s): Z93.1 - GASTROSTOMY STATUS SNOMED Code(s): 687680254 (4) Esophageal dysmotility Current Visit: Yes Status: Acute Code(s): K22.4 - DYSKINESIA OF ESOPHAGUS SNOMED Code(s): 527728489 Plan: 1. Continue symptomatic and supportive care 2. Continue antiemetics, will discontinue Reglan and add Compazine as patient states this has worked better 3. Add scopolamine patch 4. Protonix 40 mg IV twice daily 5. Continue IV hydration 6. Consult dietitian for tube feedings, however hold until further evaluated by general surgery 7. No plans on endoscopic evaluation at this time. Will reevaluate on Monday if patient still hospitalized. 8. Patient continued to have intractable nausea and vomiting abdominal pain throughout the day. Will consult general surgery, known to Dr. Pavon with history of Frederick fundoplication and laparoscopic repair of the paraesophageal hernia 9. Rest of medical management per primary medical team Thank you for allowing us to participate in the care of the patient, the GI service will sign off, gastroenterology will not be available at the hospital this weekend. If further evaluation by gastroenterology is required the patient will need transfer as per the primary team's discretion. Dr. Kb Odell I agree with the dictator's note, documented as a scribe by Celia Walters.
--- NOTE | 2024-01-05 15:37 | P.HPIM ---
History of Present Illness H&P Date: 01/05/24 Chief Complaint: Nausea/vomiting/diarrhea 68-year-old male presented to the ER with a chief complaint of nausea and vomiting. Patient has a past medical history of coronary artery disease, hypertension, hyperlipidemia, GERD, CVA/TIA, rheumatoid arthritis, hiatal hernia with esophageal immobility and has a PEG tube in place. Family reports since 01-01-2024, patient has been experiencing intermittent nausea and vomiting. Patient typically has 5 PEG tube feedings daily and is only consumed 4 out of 5 yesterday and none today. Patient has been having persistent nausea without relief of ODT Zofran. He also is describing left upper quadrant abdominal pain. He denies fevers but reports chills. Denies any chest pain, shortness of breath, constipation/diarrhea or urinary complaints. Blood work completed in ED reveals a WBC of 18.8, hemoglobin of 13.9 and sonu telet count of 439, sodium 144 potassium 4.2, BUNs/creatinine of 25/0.54, lactic acid of 4.0, and blood glucose of 170 -CT abdomen pelvis showing prominent fluid-filled small bowel loops in the lower abdomen and moderate circumferential wall thickening along the ascending colon consider nonspecific enterocolitis. Postsurgical changes at the GE junction with moderate circumferential thickening at the distal esophagus that could represent a tiny residual hiatal hernia versus distal esophagitis. 1.1 cm subpleural density peripherally of the left lower lobe unchanged from prior. Review of Systems REVIEW OF SYSTEMS: CONSTITUTIONAL: No fever, no malaise, no fatigue. HEENT: No recent visual problems or hearing problems. Denied any sore throat. CARDIOVASCULAR: No chest pain, orthopnea, PND, no palpitations, no syncope. PULMONARY: No shortness of breath, no cough, no hemoptysis. GASTROINTESTINAL: Nausea/vomiting/diarrhea/abdominal pain. NEUROLOGICAL: No headaches, no weakness, no numbness. HEMATOLOGICAL: Denies any bleeding or petechiae. GENITOURINARY: Denies any burning micturition, frequency, or urgency. MUSCULOSKELETAL/RHEUMATOLOGICAL: Denies any joint pain, swelling, or any muscle pain. ENDOCRINE: Denies any polyuria or polydipsia. The rest of the 14-point review of systems is negative. Past Medical History Past Medical History: Asthma, Coronary Artery Disease (CAD), Chest Pain / Angina, CVA/TIA, GERD/Reflux, Hyperlipidemia, Hypertension, Pneumonia, Rheumatoid Arthritis (RA) Additional Past Medical History / Comment(s): MIGRAINES, HEART MURMUR, hx HIATAL HERNIA, ANEMIA, one dr told him he had a stroke at one time-no effects, varicose veins, history of incarcerated per esophageal hernia, status post robotic-assisted paraesophageal hernia repair and Frederick fundoplication on 04/12/2022. History of Any Multi-Drug Resistant Organisms: None Reported Past Surgical History: Cholecystectomy, Heart Catheterization, Hernia Repair, Orthopedic Surgery Additional Past Surgical History / Comment(s): Lt achilles tendon,RT SHOULDER surgery, RT ACHILLES TENDON reattached, HEMORRHOIDECTOMY, 13 FATTY TUMORS removed. left hand index finger surgery after injury, EGD WITH DILATION, paraesophageal hernia repair with Frederick fundoplication on 04/12/2022. PEG tube Past Anesthesia/Blood Transfusion Reactions: No Reported Reaction Additional Past Anesthesia/Blood Transfusion Reaction / Comment(s): no hx blood transfusion Past Psychological History: Anxiety, Depression Smoking Status: Current some day smoker Past Alcohol Use History: None Reported Past Drug Use History: Marijuana - Past Family History Mother Family Medical History: Cancer Father Additional Family Medical History / Comment(s): thinks aneurysm Medications and Allergies Home Medications Medication Instructions Recorded Confirmed Type Sertraline [Zoloft] 25 mg PO DAILY 08/08/23 01/04/24 History Pantoprazole [Protonix] 40 mg PO AC-BRKFST 10/29/23 01/04/24 History Metoprolol Tartrate [Lopressor] 25 mg PO BID 12/05/23 01/04/24 History busPIRone HCL [Buspar] 7.5 mg PO BID 12/05/23 01/04/24 History Ondansetron Odt [Zofran Odt] 4 mg PO Q8H PRN 01/04/24 01/04/24 History Allergies Allergy/AdvReac Type Severity Reaction Status Date / Time No Known Allergies Allergy Verified 01/05/24 13:42 Physical Exam Vitals: Vital Signs Temp Pulse Resp BP Pulse Ox 01/05/24 11:32 68 17 155/98 97 01/05/24 08:00 90 17 161/88 97 01/05/24 01:00 16 96 01/04/24 23:44 90 16 154/102 98 01/04/24 23:00 94 16 129/75 95 01/04/24 17:34 92 20 164/102 96 01/04/24 13:21 97.6 F 88 18 146/103 100 General appearance: alert, in no apparent distress Respiratory exam: Present: normal lung sounds bilaterally. Absent: respiratory distress, wheezes, rales, rhonchi, stridor Cardiovascular Exam: Present: regular rate, normal rhythm, normal heart sounds. Absent: systolic murmur, diastolic murmur, rubs, gallop, clicks GI/Abdominal exam: Present: soft, tenderness (LUQ. PEG tube in place left upper quadrant. No surrounding erythema or purulent drainage.), normal bowel sounds Extremities exam: Present: normal inspection, full ROM, normal capillary refill. Absent: tenderness, pedal edema, joint swelling, calf tenderness Neurological exam: Present: alert, oriented X3, CN II-XII intact Skin exam: Present: warm, intact, normal color, diaphoretic (Mild) Results CBC & Chem 7: 01/05/24 08:30 01/05/24 07:12 Labs: Abnormal Lab Results - Last 24 Hours (Table) 01/04/24 01/04/24 01/04/24 Range/Units 13:23 13:23 13:23 WBC 18.8 H (3.8-10.6) k/uL RBC (4.30-5.90) m/uL Hgb (13.0-17.5) gm/dL Hct (39.0-53.0) % Neutrophils # 16.8 H (1.3-7.7) k/uL Lymphocytes # 0.9 L (1.0-4.8) k/uL Chloride (98-107) mmol/L BUN 25 H (9-20) mg/dL Creatinine 0.54 L (0.66-1.25) mg/dL Glucose 170 H (74-99) mg/dL Plasma Lactic Acid Jack 3.3 H* (0.7-2.0) mmol/L ALT 63 H (4-49) U/L 01/04/24 01/04/24 01/05/24 Range/Units 16:57 23:45 07:12 WBC (3.8-10.6) k/uL RBC (4.30-5.90) m/uL Hgb (13.0-17.5) gm/dL Hct (39.0-53.0) % Neutrophils # (1.3-7.7) k/uL Lymphocytes # (1.0-4.8) k/uL Chloride 111 H (98-107) mmol/L BUN 27 H (9-20) mg/dL Creatinine 0.45 L (0.66-1.25) mg/dL Glucose 125 H (74-99) mg/dL Plasma Lactic Acid Jack 4.0 H* 3.5 H* (0.7-2.0) mmol/L ALT (4-49) U/L 01/05/24 Range/Units 08:30 WBC 13.6 H (3.8-10.6) k/uL RBC 3.87 L (4.30-5.90) m/uL Hgb 12.2 L (13.0-17.5) gm/dL Hct 37.4 L (39.0-53.0) % Neutrophils # 11.1 H (1.3-7.7) k/uL Lymphocytes # (1.0-4.8) k/uL Chloride (98-107) mmol/L BUN (9-20) mg/dL Creatinine (0.66-1.25) mg/dL Glucose (74-99) mg/dL Plasma Lactic Acid Jack (0.7-2.0) mmol/L ALT (4-49) U/L Assessment and Plan Assessment: 1. Abdominal pain -CT of the abdomen completed in ED which reveals prominent fluid-filled small bowel loops in the lower abdomen and moderate circumferential wall thickening along the ascending colon. Consider a nonspecific enterocolitis. Postsurgical changes at the GE junction possibly related to prior hiatal hernia repair. The re is moderate circumferential thickening at the distal esophagus that could represent a tiny residual hiatal hernia versus distal esophagitis. Consider direct visualization. Some fluid here in the distal esophagus could reflect gastroesophageal reflux, dysmotility or stricture. A 1.1 cm subpleural density periphery of the left lower lobe unchanged from 11/03/2023 but new from 11/04/2022. Attention on 6-month follow-up CT Patient has been placed on IV antibiotics in form of Rocephin and Flagyl -Will plan to monitor CBC, CRP and procalcitonin -GI is consulted; appreciate recommendation; Protonix 40 mg IV every 12 hours per GI recommendations 2. Intractable nausea and vomiting Likely intractable nausea and vomiting acute on chronic secondary to possible enterocolitis however need to consider other source with patient's history of chronic nausea and vomiting and repeat hospitalizations. Will consult general surgery for further evaluation and recommendations. Continue with symptomatic treatment. Keep n.p.o. for now until further evaluated by general surgery. -GI recommending to discontinue Reglan and add Compazine; scopolamine patch is added 3. Esophageal dysmotility/PEG tube -Dietary has been consulted; patient remains n.p.o. -General surgery to evaluate patient and make further recommendations -GI has not recommended any endoscopic examination at this time 4. History of Frederick fundoplication laparoscopic repair of paraesophageal hernia; general surgery to evaluate 5. Hypertension; metoprolol 25 mg twice daily 6. Anxiety/depression; BuSpar 7.5 mg twice daily; Zoloft 25 mg daily DVT prophylaxis; SCDs CODE STATUS; full code
[2024-01-05] MEDS: metroNIDAZOLE-NS PMX 500 MG in SALINE 1 100ML.BAG IVPB SCH (16:00)
--- NOTE | 2024-01-05 16:23 | P.GSCN ---
History of Present Illness Consult date: 01/05/24 Reason for Consult: Intractable vomiting History of present illness: 68-year-old male hospitalized with intractable vomiting for the last 4 days. Patient says he has mild discomfort when he is vomiting otherwise no pain. Denies hematemesis. Patient has a somewhat complex history including hiatal hernia repair, cholecystectomy, EGD with PEG tube placement, recent upper GI. Many of these studies were performed because of issues with swallowing and vomiting issues. CAT scan was performed showing mild thickening of the distal esophagus. Some nonspecific thickening of the small bowel and colon also noted. GI saw this patient and has no immediate plans other than antiemetics. Patient says he does feel somewhat better today. Review of Systems The patient denies any acute changes in vision or hearing, no dysphagia or odynophagia, no chest pain or shortness of breath, no dysuria or hematuria, no headache, no runny nose, no rectal bleeding or melena, no unexplained weight loss Past Medical History Past Medical History: Asthma, Coronary Artery Disease (CAD), Chest Pain / Angina, CVA/TIA, GERD/Reflux, Hyperlipidemia, Hypertension, Pneumonia, Rheumatoid Arthritis (RA) Additional Past Medical History / Comment(s): MIGRAINES, HEART MURMUR, hx HIATAL HERNIA, ANEMIA, one dr told him he had a stroke at one time-no effects, varicose veins, history of incarcerated per esophageal hernia, status post robotic-assisted paraesophageal hernia repair and Frederick fundoplication on 04/12/2022. History of Any Multi-Drug Resistant Organisms: None Reported Past Surgical History: Cholecystectomy, Heart Catheterization, Hernia Repair, Orthopedic Surgery Additional Past Surgical History / Comment(s): Lt achilles tendon,RT SHOULDER surgery, RT ACHILLES TENDON reattached, HEMORRHOIDECTOMY, 13 FATTY TUMORS removed. left hand index finger surgery after injury, EGD WITH DILATION, paraesophageal hernia repair with Frederick fundoplication on 04/12/2022. PEG tube Past Anesthesia/Blood Transfusion Reactions: No Reported Reaction Additional Past Anesthesia/Blood Transfusion Reaction / Comm: no hx blood transfusion Past Psychological History: Anxiety, Depression Smoking Status: Current some day smoker Past Alcohol Use History: None Reported Past Drug Use History: Marijuana - Past Family History Mother Family Medical History: Cancer Father Additional Family Medical History / Comment(s): thinks aneurysm Medications and Allergies Home Medications Medication Instructions Recorded Confirmed Type Sertraline [Zoloft] 25 mg PO DAILY 08/08/23 01/04/24 History Pantoprazole [Protonix] 40 mg PO AC-BRKFST 10/29/23 01/04/24 History Metoprolol Tartrate [Lopressor] 25 mg PO BID 12/05/23 01/04/24 History busPIRone HCL [Buspar] 7.5 mg PO BID 12/05/23 01/04/24 History Ondansetron Odt [Zofran Odt] 4 mg PO Q8H PRN 01/04/24 01/04/24 History Allergies Allergy/AdvReac Type Severity Reaction Status Date / Time No Known Allergies Allergy Verified 01/05/24 13:42 Surgical - Exam Vital Signs Temp Pulse Resp BP Pulse Ox 97.6 F 88 18 146/103 100 01/04/24 13:21 01/04/24 13:21 01/04/24 13:21 01/04/24 13:21 01/04/24 13:21 Physical exam: General: Well-developed, well-nourished HEENT: Normocephalic, sclerae nonicteric Abdomen: Nontender, nondistended, PEG tube left upper quadrant Extremities: No edema Neuro: Alert and oriented Results - Labs 01/05/24 08:30 01/05/24 07:12 Abnormal Lab Results - Last 24 Hours (Table) 01/04/24 01/04/24 01/05/24 Range/Units 16:57 23:45 07:12 WBC (3.8-10.6) k/uL RBC (4.30-5.90) m/uL Hgb (13.0-17.5) gm/dL Hct (39.0-53.0) % Neutrophils # (1.3-7.7) k/uL Chloride 111 H (98-107) mmol/L BUN 27 H (9-20) mg/dL Creatinine 0.45 L (0.66-1.25) mg/dL Glucose 125 H (74-99) mg/dL Plasma Lactic Acid Jack 4.0 H* 3.5 H* (0.7-2.0) mmol/L 01/05/24 Range/Units 08:30 WBC 13.6 H (3.8-10.6) k/uL RBC 3.87 L (4.30-5.90) m/uL Hgb 12.2 L (13.0-17.5) gm/dL Hct 37.4 L (39.0-53.0) % Neutrophils # 11.1 H (1.3-7.7) k/uL Chloride (98-107) mmol/L BUN (9-20) mg/dL Creatinine (0.66-1.25) mg/dL Glucose (74-99) mg/dL Plasma Lactic Acid Jack (0.7-2.0) mmol/L Diabetes panel 01/05/24 Range/Units 07:12 Sodium 142 (137-145) mmol/L Potassium 4.3 (3.5-5.1) mmol/L Chloride 111 H (98-107) mmol/L Carbon Dioxide 26 (22-30) mmol/L BUN 27 H (9-20) mg/dL Creatinine 0.45 L (0.66-1.25) mg/dL Glucose 125 H (74-99) mg/dL Calcium 8.5 (8.4-10.2) mg/dL Calcium panel 01/05/24 Range/Units 07:12 Calcium 8.5 (8.4-10.2) mg/dL Pituitary panel 01/05/24 Range/Units 07:12 Sodium 142 (137-145) mmol/L Potassium 4.3 (3.5-5.1) mmol/L Chloride 111 H (98-107) mmol/L Carbon Dioxide 26 (22-30) mmol/L BUN 27 H (9-20) mg/dL Creatinine 0.45 L (0.66-1.25) mg/dL Glucose 125 H (74-99) mg/dL Calcium 8.5 (8.4-10.2) mg/dL Adrenal panel 01/05/24 Range/Units 07:12 Sodium 142 (137-145) mmol/L Potassium 4.3 (3.5-5.1) mmol/L Chloride 111 H (98-107) mmol/L Carbon Dioxide 26 (22-30) mmol/L BUN 27 H (9-20) mg/dL Creatinine 0.45 L (0.66-1.25) mg/dL Glucose 125 H (74-99) mg/dL Calcium 8.5 (8.4-10.2) mg/dL Assessment and Plan (1) Intractable nausea and vomiting Narrative/Plan: 68-year-old male with intractable nausea and vomiting. Patient with history of esophageal dysmotility. Continue antiemetics. Continue IV hydration. Begin tube feeds. May require repeat endoscopy during this hospital stay. Last EGD performed in October. Current Visit: No Status: Acute Code(s): R11.2 - NAUSEA WITH VOMITING, UNSPECIFIED SNOMED Code(s): 558902565
[2024-01-05] MEDS: PROCHLORPERAZINE INJ 10 MG/2 ML VIAL IVP PRN (16:30)
[2024-01-05] MEDS: PANTOPRAZOLE 40 MG/10 ML VIAL IVP SCH (21:39)
[2024-01-06 07:46] LABS: African American GFR (CKD) >90 (>60 ml/min/1.73 sqM); Anion Gap 8 mmol/L; Blood Urea Nitrogen 18 mg/dL (9-20); Calcium 8.7 mg/dL (8.4-10.2); Carbon Dioxide 25 mmol/L (22-30); Chloride 107 mmol/L (98-107); Glucose 115 mg/dL (74-99); Non-African American GFR(CKD) >90 (>60 ml/min/1.73 sqM); Potassium 3.5 mmol/L (3.5-5.1); Sodium 140 mmol/L (137-145)
[2024-01-06 07:56] LABS: Basophils % (A) 0 %; Eosinophils % (A) 0 %; HCT 40.3 % (39.0-53.0); HGB 12.5 gm/dL (13.0-17.5); Hypochromasia Moderate; Lymphocytes # (A) 1.2 k/uL (1.0-4.8); Lymphocytes % (A) 11 %; MCH 30.4 pg (25.0-35.0); Mean Platelet Volume 8.9; Monocytes # (A) 0.9 k/uL (0-1.0); Monocytes % (A) 8 %; Neutrophils # (A) 9.1 k/uL (1.3-7.7); Neutrophils % (A) 80 %; Platelet Count 363 k/uL (150-450); RBC 4.12 m/uL (4.30-5.90); RDW 14.4 % (11.5-15.5); WBC 11.4 k/uL (3.8-10.6)
[2024-01-06 09:50] VITALS: BMI 19.0
[2024-01-06] MEDS ORDERED: TRIMETHOBENZAMIDE 100 MG/ML 2 ML VIAL IM PRN (10:43)
[2024-01-06] MEDS: TRIMETHOBENZAMIDE 100 MG/ML 2 ML VIAL IM PRN (10:59)
[2024-01-06 11:31] LABS: C Reactive Protein <0.5 mg/dL (<1.0)
--- NOTE | 2024-01-06 15:33 | P.PN ---
Subjective 68-year-old male presented to the ER with a chief complaint of nausea and vomiting. Patient has a past medical history of coronary artery disease, hypertension, hyperlipidemia, GERD, CVA/TIA, rheumatoid arthritis, hiatal hernia with esophageal immobility and has a PEG tube in place. Family reports since 01-01-2024, patient has been experiencing intermittent nausea and vomiting. Patient typically has 5 PEG tube feedings daily and is only consumed 4 out of 5 yesterday and none today. Patient has been having persistent nausea without relief of ODT Zofran. He also is describing left upper quadrant abdominal pain. He denies fevers but reports chills. Denies any chest pain, shortness of breath, constipation/diarrhea or urinary complaints. Blood work completed in ED reveals a WBC of 18.8, hemoglobin of 13.9 and platelet count of 439, sodium 144 potassium 4.2, BUNs/creatinine of 25/0.54, lactic acid of 4.0, and blood glucose of 170 -CT abdomen pelvis showing prominent fluid-filled small bowel loops in the lower abdomen and moderate circumferential wall thickening along the ascending colon consider nonspecific enterocolitis. Postsurgical changes at the GE junction with moderate circumferential thickening at the distal esophagus that could represent a tiny residual hiatal hernia versus distal esophagitis. 1.1 cm subpleural density peripherally of the left lower lobe unchanged from prior. Objective - Vital Signs Vital signs: Vital Signs Temp 98.4 F 01/06/24 07:34 Pulse 75 01/06/24 08:00 Resp 17 01/06/24 08:00 BP 161/85 01/06/24 07:34 Pulse Ox 97 01/06/24 07:34 FiO2 Intake & Output 01/05/24 01/06/24 01/06/24 18:59 06:59 18:59 Intake Total 600 Output Total 400 Balance 600 -400 Weight 56.699 kg 56.699 kg Intake: Intake, IV Titration 600 Amount cefTRIAXone 2 gm In 600 Sodium Chloride 0.9% 50 ml @ 100 mls/hr IVPB Q24HR [facility] Rx#:[id number] Output: Urine 400 - Exam General appearance: alert, in no apparent distress Respiratory exam: Present: normal lung sounds bilaterally. Absent: respiratory distress, wheezes, rales, rhonchi, stridor Cardiovascular Exam: Present: regular rate, normal rhythm, normal heart sounds. Absent: systolic murmur, diastolic murmur, rubs, gallop, clicks GI/Abdominal exam: Present: soft, tenderness (LUQ. PEG tube in place left upper quadrant. No surrounding erythema or purulent drainage.), normal bowel sounds Extremities exam: Present: normal inspection, full ROM, normal capillary refill. Absent: tenderness, pedal edema, joint swelling, calf tenderness Neurological exam: Present: alert, oriented X3, CN II-XII intact Skin exam: Present: warm, intact, normal color, diaphoretic (Mild) - Labs CBC & Chem 7: 01/06/24 06:55 08 06:55 Labs: Abnormal Lab Results - Last 24 Hours (Table) 01/06/24 01/06/24 Range/Units 06:55 06:55 WBC 11.4 H (3.8-10.6) k/uL RBC 4.12 L (4.30-5.90) m/uL Hgb 12.5 L (13.0-17.5) gm/dL Neutrophils # 9.1 H (1.3-7.7) k/uL Creatinine 0.41 L (0.66-1.25) mg/dL Glucose 115 H (74-99) mg/dL Assessment and Plan Assessment: 1. Abdominal pain -CT of the abdomen completed in ED which reveals prominent fluid-filled small bowel loops in the lower abdomen and moderate circumferential wall thickening along the ascending colon. Consider a nonspecific enterocolitis. Postsurgical changes at the GE junction possibly related to prior hiatal hernia repair. There is moderate circumferential thickening at the distal esophagus that could represent a tiny residual hiatal hernia versus distal esophagitis. Consider direct visualization. Some fluid here in the distal esophagus could reflect gastroesophageal reflux, dysmotility or stricture. A 1.1 cm subpleural density periphery of the left lower lobe unchanged from 11/03/2023 but new from 11/04/2022. Attention on 6-month follow-up CT Patient has been placed on IV antibiotics in form of Rocephin and Flagyl -Will plan to monitor CBC, CRP and procalcitonin -GI is consulted; appreciate recommendation; Protonix 40 mg IV every 12 hours p er GI recommendations 2. Intractable nausea and vomiting Likely intractable nausea and vomiting acute on chronic secondary to possible enterocolitis however need to consider other source with patient's history of chronic nausea and vomiting and repeat hospitalizations. Will consult general surgery for further evaluation and recommendations. Continue with symptomatic treatment. Keep n.p.o. for now until further evaluated by general surgery. -GI recommending to discontinue Reglan and add Compazine; scopolamine patch is added 3. Esophageal dysmotility/PEG tube -Dietary has been consulted; patient remains n.p.o. -General surgery to evaluate patient and make further recommendations -GI has not recommended any endoscopic examination at this time 4. History of [place] fundoplication laparoscopic repair of paraesophageal hernia; general surgery to evaluate 5. Hypertension; metoprolol 25 mg twice daily 6. Anxiety/depression; BuSpar 7.5 mg twice daily; Zoloft 25 mg daily DVT prophylaxis; SCDs CODE STATUS; full code
[2024-01-06 17:07] VITALS: RESP 16
[2024-01-06] MEDS: KETOROLAC 15 MG/ML 1 ML VIAL IVP PRN (18:07)
[2024-01-06] MEDS ORDERED: hydrALAZINE HCL 20 MG/ML 1 ML VIAL IVP PRN (18:20)
--- NOTE | 2024-01-06 19:28 | P.PN ---
Subjective Patient seen and evaluated at bedside. Patient still has nausea but no vomiting per nursing staff and patient. Objective - Vital Signs Vital signs: Vital Signs Temp 98.1 F 01/06/24 17:06 Pulse 65 01/06/24 17:06 Resp 16 01/06/24 17:31 BP 172/95 01/06/24 18:16 Pulse Ox 100 01/06/24 17:06 FiO2 Intake & Output 01/06/24 01/06/24 01/07/24 06:59 18:59 06:59 Output Total 400 Balance -400 Weight 56.699 kg Output: Urine 400 - Exam gen: nad cv: rrr pul: non labored breathing abd: soft, non distended, peg tube in place, no guarding or rebound tenderness - Labs CBC & Chem 7: 01/06/24 06:55 01/06/24 06:55 Labs: Abnormal Lab Results - Last 24 Hours (Table) 01/06/24 01/06/24 Range/Units 06:55 06:55 WBC 11.4 H (3.8-10.6) k/uL RBC 4.12 L (4.30-5.90) m/uL Hgb 12.5 L (13.0-17.5) gm/dL Neutrophils # 9.1 H (1.3-7.7) k/uL Creatinine 0.41 L (0.66-1.25) mg/dL Glucose 115 H (74-99) mg/dL Assessment and Plan Assessment: 68-year-old male with intractable nausea and vomiting Patient with history of esophageal dysmotility. Continue antiemetics. Continue IV hydration. Begin tube feeds. possible EGD on Monday Time with Patient: Less than 30
[2024-01-07 09:38] LABS: Blood Urea Nitrogen 22.2 mg/dL (9.0-27.0); Chloride 109 mmol/L (96-109); Glucose 109 mg/dL (70-110); Potassium 3.2 mmol/L (3.5-5.5); Sodium 143 mmol/L (135-145)
[2024-01-07 09:39] LABS: Calcium 8.1 mg/dL (8.7-10.3)
[2024-01-07 09:44] LABS: Basophils # (A) 0.03 X 10*3/uL (0.00-0.10); Basophils % (A) 0.3 %; Eosinophils # (A) 0.03 X 10*3/uL (0.04-0.35); Eosinophils % (A) 0.3 %; HCT 34.8 % (39.6-50.0); Lymphocytes # (A) 1.43 X 10*3/uL (0.90-5.00); Lymphocytes % (A) 15.5 %; MCH 30.1 pg (27.0-32.0); MCHC 31.6 g/dL (32.0-37.0); MCV 95.3 FL (80.0-97.0); Mean Platelet Volume 11.7 FL (9.5-12.2); Monocytes # (A) 0.95 X 10*3/uL (0.20-1.00); Monocytes % (A) 10.3 %; NRBC Per 100 WBC 0 X 10*3/uL (0.00-0.01); Neutrophils # (A) 6.78 X 10*3/uL (1.80-7.70); Neutrophils % (A) 73.3 %; Platelet Count 301 X 10*3/uL (140-440); RBC 3.65 X 10*6/uL (4.40-5.60); RDW 14.1 % (11.5-14.5); WBC 9.25 X 10*3/uL (4.50-10.00)
--- NOTE | 2024-01-07 09:52 | P.PN ---
Subjective Progress Note Date: 01/07/24 Principal diagnosis: Intractable vomiting Patient feels well today. Apparently yesterday he had some dry heaves. Tigan was added with improvement in his symptoms. Tube feeds were apparently held. At home he was doing 5 cans of Jevity per day manually through the PEG tube. Objective - Vital Signs Vital signs: Vital Signs Temp 98.6 F 01/07/24 08:00 Pulse 70 01/07/24 08:00 Resp 16 01/07/24 08:00 BP 134/78 01/07/24 08:00 Pulse Ox 98 01/07/24 08:00 FiO2 Intake & Output 01/06/24 01/07/24 01/07/24 18:59 06:59 18:59 Output Total 280 Balance -280 Weight 56.699 kg 59 kg Output: Urine 280 Other: Voiding Method Urinal - Exam Abdomen: Soft, nontender, nondistended, PEG tube in place - Labs CBC & Chem 7: 01/07/24 03:52 01/07/24 03:52 Labs: Abnormal Lab Results - Last 24 Hours (Table) 01/07/24 01/07/24 Range/Units 03:52 03:52 RBC 3.65 L (4.40-5.60) X 10*6/uL Hgb 11.0 L (13.0-17.0) g/dL Hct 34.8 L (39.6-50.0) % MCHC 31.6 L (32.0-37.0) g/dL Eosinophils # 0.03 L (0.04-0.35) X 10*3/uL Potassium 3.2 L (3.5-5.5) mmol/L Creatinine 0.5 L (0.6-1.5) mg/dL BUN/Creatinine Ratio 44.40 H (12.00-20.00) Ratio Calcium 8.1 L (8.7-10.3) mg/dL Assessment and Plan (1) Intractable nausea and vomiting Narrative/Plan: Patient doing better today. Resume tube feeds at 20 cc/h. Begin liquid diet. If symptoms persist consider repeat EGD. Current Visit: No Status: Acute Code(s): R11.2 - NAUSEA WITH VOMITING, UNSPECIFIED SNOMED Code(s): 498550021
[2024-01-07] MEDS: POTASSIUM CHLORIDE ER 20 MEQ TAB.ER PO SCH (13:17)
--- NOTE | 2024-01-07 16:20 | P.PN ---
Subjective Progress Note Date: 01/07/24 68-year-old male presented to the ER with a chief complaint of nausea and vomiting. Patient has a past medical history of coronary artery disease, hypertension, hyperlipidemia, GERD, CVA/TIA, rheumatoid arthritis, hiatal hernia with esophageal immobility and has a PEG tube in place. Family reports since 01-01-2024, patient has been experiencing intermittent nausea and vomiting. Patient typically has 5 PEG tube feedings daily and is only consumed 4 out of 5 yesterday and none today. Patient has been having persistent nausea without relief of ODT Zofran. He also is describing left upper quadrant abdominal pain. He denies fevers but reports chills. Denies any chest pain, shortness of breath, constipation/diarrhea or urinary complaints. Blood work completed in ED reveals a WBC of 18.8, hemoglobin of 13.9 and platelet count of 439, sodium 144 potassium 4.2, BUNs/creatinine of 25/0.54, lactic acid of 4.0, and blood glucose of 170 -CT abdomen pelvis showing prominent fluid-filled small bowel loops in the lower abdomen and moderate circumferential wall thickening along the ascending colon consider nonspecific enterocolitis. Postsurgical changes at the GE junction with moderate circumferential thickening at the distal esophagus that could represent a tiny residual hiatal hernia versus distal esophagitis. 1.1 cm subpleural density peripherally of the left lower lobe unchanged from prior. 24-hour interval change 01/07/2024 Patient is seen and evaluated in room with family at bedside; more awake and alert and sitting up in bed; reports feeling much improved this morning; reports nausea and dry heaves are markedly improved with Tigan Vital signs are reviewed with temperature 98.6, pulse 70, respirations 16 and blood pressure 134/78 Lab review shows WBC of 9.2, hemoglobin of 11.1 and platelet count of 301, sodium 143, potassium 3.2, BUNs/creatinine of 22/0.5 General surgery on board and recommending to resume patient on tube feeding at a rate of 20 cc an hour; patient is recommended a clear liquid diet also; patient uses 5 cans of Jevity per day at home Objective - Vital Signs Vital signs: Vital Signs Temp 98.6 F 01/07/24 08:00 Pulse 70 01/07/24 08:00 Resp 16 01/07/24 09:10 BP 134/78 01/07/24 08:00 Pulse Ox 98 01/07/24 08:00 FiO2 Intake & Output 01/06/24 01/07/24 01/07/24 18:59 06:59 18:59 Output Total 280 Balance -280 Weight 56.699 kg 59 kg Output: Urine 280 Other: Voiding Method Urinal Urinal - Exam General appearance: alert, in no apparent distress Respiratory exam: Present: normal lung sounds bilaterally. Absent: respiratory distress, wheezes, rales, rhonchi, stridor Cardiovascular Exam: Present: regular rate, normal rhythm, normal heart sounds. Absent: systolic murmur, diastolic murmur, rubs, gallop, clicks GI/Abdominal exam: Present: soft, tenderness (LUQ. PEG tube in place left upper quadrant. No surrounding erythema or purulent drainage.), normal bowel sounds Extremities exam: Present: normal inspection, full ROM, normal capillary refill. Absent: tenderness, pedal edema, joint swelling, calf tenderness Neurological exam: Present: alert, oriented X3, CN II-XII intact Skin exam: Present: warm, intact, normal color, diaphoretic (Mild) - Labs CBC & Chem 7: 01/07/24 03:52 01/07/24 03:52 Labs: Abnormal Lab Results - Last 24 Hours (Table) 01/07/24 01/07/24 Range/Units 03:52 03:52 RBC 3.65 L (4.40-5.60) X 10*6/uL Hgb 11.0 L (13.0-17.0) g/dL Hct 34.8 L (39.6-50.0) % MCHC 31.6 L (32.0-37.0) g/dL Eosinophils # 0.03 L (0.04-0.35) X 10*3/uL Potassium 3.2 L (3.5-5.5) mmol/L Creatinine 0.5 L (0.6-1.5) mg/dL BUN/Creatinine Ratio 44.40 H (12.00-20.00) Ratio Calcium 8.1 L (8.7-10.3) mg/dL Assessment and Plan Assessment: 1. Abdominal pain -CT of the abdomen completed in ED which reveals prominent fluid-filled small bowel loops in the lower abdomen and moderate circumferential wall thickening along the ascending colon. Consider a nonspecific enterocolitis. Postsurgical changes at the GE junction possibly related to prior hiatal hernia repair. There is moderate circumferential thickening at the distal esophagus that could represent a tiny residual hiatal hernia versus distal esophagitis. Consider direct visualization. Some fluid here in the distal esophagus could reflect gastroesophageal reflux, dysmotility or stricture. A 1.1 cm subpleural density periphery of the left lower lobe unchanged from 11/03/2023 but new from 11/04/2022. Attention on 6-month follow-up CT Patient has been placed on IV antibiotics in form of Rocephin and Flagyl -Will plan to monitor CBC, CRP and procalcitonin -GI is consulted; appreciate recommendation; Protonix 40 mg IV every 12 hours per GI recommendations 2. Intractable nausea and vomiting Likely intractable nausea and vomiting acute on chronic secondary to possible enterocolitis however need to consider other source with patient's history of chronic nausea and vomiting and repeat hospitalizations. Will consult general surgery for further evaluation and recommendations. Continue with symptomatic treatment. Keep n.p.o. for now until further evaluated by general surgery. -GI recommending to discontinue Reglan and add Compazine; scopolamine patch is added 3. Esophageal dysmotility/PEG tube -Dietary has been consulted; patient remains n.p.o. -General surgery to evaluate patient and make further recommendations -GI has not recommended any endoscopic examination at this time 4. History of [place] fundoplication laparoscopic repair of paraesophageal hernia; general surgery to evaluate 5. Hypertension; metoprolol 25 mg twice daily 6. Anxiety/depression; BuSpar 7.5 mg twice daily; Zoloft 25 mg daily DVT prophylaxis; SCDs CODE STATUS; full code
[2024-01-08 01:37] VITALS: BP 153/87; PULSE 54; TEMP 98.7
[2024-01-08 03:38] LABS: Basophils % (A) 0 %; Eosinophils # (A) 0.1 k/uL (0-0.7); Eosinophils % (A) 1 %; HGB 10.8 gm/dL (13.0-17.5); Hypochromasia Marked; Lymphocytes # (A) 1.4 k/uL (1.0-4.8); Lymphocytes % (A) 18 %; MCH 32.4 pg (25.0-35.0); MCHC 32.7 g/dL (31.0-37.0); Mean Platelet Volume 9.6; Monocytes # (A) 0.7 k/uL (0-1.0); Monocytes % (A) 8 %; Neutrophils # (A) 5.4 k/uL (1.3-7.7); Neutrophils % (A) 70 %; Platelet Count 228 k/uL (150-450); RBC 3.33 m/uL (4.30-5.90); RDW 14.6 % (11.5-15.5); WBC 7.7 k/uL (3.8-10.6)
[2024-01-08] MEDS ORDERED: METOPROLOL TARTRATE 25 MG TAB ONE ×2 (08:15→20:15)
[2024-01-08] MEDS ORDERED: busPIRone HCl 5 MG TAB ONE ×2 (08:15→20:15)
[2024-01-08] MEDS ORDERED: metroNIDAZOLE-NS PMX 100 ML ONE ×3 (08:16→23:48)
[2024-01-08] MEDS ORDERED: SALINE ONE ×3 (08:16→23:48)
[2024-01-08] MEDS ORDERED: cefTRIAXone 2 GM VIAL ONE (10:50)
[2024-01-08] MEDS ORDERED: SODIUM CHLORIDE 0.9% 50 ML ONE (10:50)
[2024-01-08] MEDS ORDERED: PANTOPRAZOLE 40 MG/10 ML VIAL ONE ×2 (11:50→20:16)
[2024-01-08] MEDS ORDERED: ONDANSETRON 4 MG/2 ML VIAL ONE (13:01)
[2024-01-09] MEDS ORDERED: cefTRIAXone 2 GM VIAL ONE (09:04)
[2024-01-09] MEDS ORDERED: SODIUM CHLORIDE 0.9% 50 ML ONE (09:05)
[2024-01-09] MEDS ORDERED: busPIRone HCl 5 MG TAB ONE (09:05)
[2024-01-09] MEDS ORDERED: SALINE ONE (09:05)
[2024-01-09] MEDS ORDERED: METOPROLOL TARTRATE 25 MG TAB ONE (09:05)
[2024-01-09] MEDS ORDERED: metroNIDAZOLE-NS PMX 100 ML ONE (09:05)
[2024-01-09] MEDS ORDERED: PANTOPRAZOLE 40 MG/10 ML VIAL ONE (09:05)
== END 2024-01-09 13:47 | disposition home or self-care (01) ==
LOC: EC 12:21 → 4SSUR 21:10 → INTOOBSV 21:10 → 4SSUR 22:15 → 1SOBS 01-05 12:09 → 6NMEDSUR 01-06 16:51
PROVIDERS: ADMIT Hospitalist; ATTEND Hospitalist
DX: K52.9 Noninfective gastroenteritis and colitis, unspecified (principal); K22.4 Dyskinesia of esophagus; E87.20 Acidosis, unspecified; I25.10 Atherosclerotic heart disease of native coronary artery without angina pectoris; J45.909 Unspecified asthma, uncomplicated; K21.9 Gastro-esophageal reflux disease without esophagitis; E78.5 Hyperlipidemia, unspecified; I10 Essential (primary) hypertension; F32.A Depression, unspecified; F41.9 Anxiety disorder, unspecified; F17.200 Nicotine dependence, unspecified, uncomplicated; Z86.73 Personal history of transient ischemic attack (TIA), and cerebral infarction without residual deficits; Z90.49 Acquired absence of other specified parts of digestive tract; Z93.1 Gastrostomy status; Z98.890 Other specified postprocedural states; Z79.899 Other long term (current) drug therapy
CPT/HCPCS: 36415; 80053; 80048 ×3; 82150; 83605 ×2; 83690; 85025 ×4; 86140; 84145; 74177; J0780 ×2; J1630; J2765; J3250; J2405 ×4; J0696 ×4; J1885 ×2; Q9967; J1836 ×4; J2470 ×3; 96361; 96365; 96366; 96367; 96372; 96375; 96376; 99285

== ENCOUNTER 2024-01-18 02:47 | Inpatient (IN) | payer MEDICARE ==
[~2024-01-18 02:47] MED LIST changes: -LACTATED RINGERS 1,000 ML IV SCH; -LIDOCAINE 1% 20 ML VIAL (10MG/ML) FOR IV START INTRADERMA PRN; +METOCLOPRAMIDE 5 MG/ML 2 ML VIAL ONE; +diphenhydrAMINE 50 MG/ML 1 ML VIAL ONE
[2024-01-18] MEDS ORDERED: ONDANSETRON 4 MG/2 ML VIAL ONE ×2 (05:09→19:37)
[2024-01-18] MEDS ORDERED: METOCLOPRAMIDE 5 MG/ML 2 ML VIAL ONE (07:48)
[2024-01-18] MEDS ORDERED: ACETAMINOPHEN TAB 325 MG TAB ONE ×2 (11:50→19:26)
[2024-01-18] MEDS ORDERED: METOPROLOL TARTRATE 25 MG TAB ONE ×2 (11:51→19:26)
[2024-01-18] MEDS ORDERED: hydrALAZINE HCL 20 MG/ML 1 ML VIAL ONE (12:24)
[2024-01-18] MEDS ORDERED: PANTOPRAZOLE 40 MG/10 ML VIAL ONE (19:25)
[2024-01-18] MEDS ORDERED: busPIRone HCl 5 MG TAB ONE (19:26)
[2024-01-19] MEDS ORDERED: METOCLOPRAMIDE 5 MG/ML 2 ML VIAL ONE ×2 (00:16→16:33)
[2024-01-19] MEDS ORDERED: ACETAMINOPHEN TAB 325 MG TAB ONE ×2 (03:33→18:49)
[2024-01-19] MEDS ORDERED: ONDANSETRON 4 MG/2 ML VIAL ONE ×2 (09:15→18:49)
[2024-01-19] MEDS ORDERED: hydrALAZINE HCL 20 MG/ML 1 ML VIAL ONE (16:34)
[2024-01-19] MEDS ORDERED: PANTOPRAZOLE 40 MG/10 ML VIAL ONE (21:37)
[2024-01-19] MEDS ORDERED: METOPROLOL TARTRATE 25 MG TAB ONE (21:38)
[2024-01-19] MEDS ORDERED: busPIRone HCl 5 MG TAB ONE (21:38)
[2024-01-19] MEDS ORDERED: SODIUM CHLORIDE 0.9% 1,000 ML BAG ONE (23:59)
[2024-01-20] MEDS ORDERED: ONDANSETRON 4 MG/2 ML VIAL ONE ×3 (00:25→21:41)
[2024-01-20] MEDS ORDERED: ACETAMINOPHEN TAB 325 MG TAB ONE ×3 (00:26→21:42)
[2024-01-20] MEDS ORDERED: busPIRone HCl 5 MG TAB ONE ×2 (08:08→21:42)
[2024-01-20] MEDS ORDERED: METOCLOPRAMIDE 5 MG/ML 2 ML VIAL ONE ×2 (08:08→15:51)
[2024-01-20] MEDS ORDERED: METOPROLOL TARTRATE 25 MG TAB ONE ×2 (08:08→22:53)
[2024-01-20] MEDS ORDERED: PANTOPRAZOLE 40 MG/10 ML VIAL ONE ×2 (08:09→21:41)
[2024-01-20] MEDS ORDERED: POTASSIUM CHLORIDE ER 20 MEQ TAB.ER PO ONE (14:20)
[2024-01-21] MEDS ORDERED: busPIRone HCl 5 MG TAB ONE ×2 (08:29→20:01)
[2024-01-21] MEDS ORDERED: PANTOPRAZOLE 40 MG/10 ML VIAL ONE ×2 (08:29→20:01)
[2024-01-21] MEDS ORDERED: METOPROLOL TARTRATE 25 MG TAB ONE ×2 (08:30→20:01)
[2024-01-21] MEDS ORDERED: ACETAMINOPHEN TAB 325 MG TAB ONE ×2 (08:31→20:01)
[2024-01-21] MEDS ORDERED: ONDANSETRON 4 MG/2 ML VIAL ONE (20:01)
[2024-01-22] MEDS ORDERED: METOPROLOL TARTRATE 25 MG TAB ONE (08:24)
[2024-01-22] MEDS ORDERED: busPIRone HCl 5 MG TAB ONE (08:24)
[2024-01-22] MEDS ORDERED: PANTOPRAZOLE 40 MG/10 ML VIAL ONE (08:25)
[2024-01-22] MEDS ORDERED: ONDANSETRON 4 MG/2 ML VIAL ONE (09:35)
--- NOTE | 2024-02-20 08:24 | XR ---
Site ID [facility] [place] ID [id number] Order # Procedure ABDOMEN 1 VIEW KUB EXAMINATION TYPE: XR abdomen 1V DATE OF EXAM: 01/18/2024 9:16 AM CLINICAL INDICATION: Vomiting x2 days history of PEG tube COMPARISON: THIS EXAM WAS READ DURING PACS DOWNTIME, NO PRIORS AVAILABLE. TECHNIQUE: One radiographic view of the abdomen was obtained. FINDINGS: The bowel gas pattern is nonspecific without dilated loops of small or large bowel. . Fecal material and gas are demonstrated throughout the colon and rectum. There is no evidence for organomegaly or pneumoperitoneum. The osseous structures are intact. Right renal calculi measuring up to 3 mm . PEG tube in appropriate position projecting over the upper abdo men. IMPRESSION: 1. Nonspecific bowel gas pattern without radiographic evidence for acute process. 2. Nonobstructing right renal calculus. 3. PEG tube in appropriate position.
--- NOTE | 2024-02-29 14:41 | CONS ---
CONSULTATION REASON FOR CONSULTATION: Chronic dysphagia. HISTORY OF PRESENT ILLNESS: This is a gentleman well known to us for the patient has history of chronic dysphagia. The patient states he was admitted to the hospital due to shortness of breath. The patient has been living on soft foods and full liquid diet for several months. He has a previous history of PEG tube placement. PHYSICAL EXAM: VITAL SIGNS: Stable. ABDOMEN: Soft. ASSESSMENT: History of chronic dysphagia. The patient will be observed. There is no surgical intervention planned at this point. We will follow with you. SALMA / IJN: [id number] /
== END 2024-01-22 18:10 | disposition home or self-care (01) | DRG 391 ==
LOC: 6NMEDSUR 02:47 → UNDOADMIN 21:30 → 6NMEDSUR 21:30 → UNDODISIN 21:30
PROVIDERS: ADMIT Hospitalist; ATTEND Hospitalist
PROC: 3E0H76Z Introduction of Nutritional Substance into Lower GI, Via Natural or Artificial Opening (ICD-10-PCS; principal; 2024-01-19)
DX: K22.0 Achalasia of cardia (principal); G93.41 Metabolic encephalopathy; Z93.1 Gastrostomy status; I10 Essential (primary) hypertension; F32.A Depression, unspecified
CPT/HCPCS: 74018; 96361; 96374; 96375; 99285

== ENCOUNTER 2024-07-29 18:23 | Inpatient (IN) | payer MEDICARE ==
--- NOTE | 2024-07-29 18:35 | ED ---
Nausea/Vomiting/Diarrhea HPI - General Chief complaint: Nausea/Vomiting/Diarrhea Stated complaint: NVD Time Seen by Provider: 07/29/24 18:26 Source: patient, EMS, RN notes reviewed, old records reviewed Mode of arrival: EMS Limitations: no limitations - History of Present Illness Initial comments: This is a 68-year-old male to the ER for evaluation of nausea vomiting abdominal pain patient has had nausea vomiting unable to eat or drink not feeling well for about 2 weeks. Patient has complex medical history multiple hospital admissions for similar patient does have history of blood pressure cholesterol CAD asthma, no shortness of breath, patient having occasional abdominal pain history of gallbladder removal MD complaint: nausea, vomiting, diarrhea, abdominal pain -: week(s) Description of Vomiting: food contents, watery, bilious Description of Diarrhea: water, mucous Location: diffuse Severity: moderate Severity scale (1-10): 6 Quality: cramping, stabbing Improves with: eating Worsens with: bowel movement Context: history of abdominal surgery Associated Symptoms: loss of appetite, malaise, nausea/vomiting, weakness - Related Data Home Medications Medication Instructions Recorded Confirmed Albuterol Sulfate [Albuterol 2 puff PO RT-Q4H PRN 07/30/24 07/30/24 Sulfate Hfa] Ferrous Sulfate [Feosol] 325 mg PO DAILY 07/30/24 07/30/24 Metoprolol Tartrate [Lopressor] 25 mg PO BID 07/30/24 07/30/24 Nitroglycerin Sl Tabs [Nitrostat] 0.4 mg SUBLINGUAL Q5M PRN 07/30/24 07/30/24 Pantoprazole [Protonix] 40 mg PO DAILY 07/30/24 07/30/24 Sertraline [Zoloft] 25 mg PO DAILY 07/30/24 07/30/24 busPIRone HCL [Buspar] 7.5 mg PO BID 07/30/24 07/30/24 Allergies Allergy/AdvReac Type Severity Reaction Status Date / Time No Known Allergies Allergy Verified 07/30/24 09:28 Review of Systems ROS Statement: Those systems with pertinent positive or pertinent negative responses have been documented in the HPI. ROS Other: All systems not noted in ROS Statement are negative. Past Medical History Past Medical History: Asthma, Coronary Artery Disease (CAD), Chest Pain / Angina, CVA/TIA, GERD/Reflux, Hyperlipidemia, Hypertension, Pneumonia, Rheumatoid Arthritis (RA) Additional Past Medical History / Comment(s): MIGRAINES, HEART MURMUR, hx HIATAL HERNIA, ANEMIA, one dr told him he had a stroke at one time-no effects, varicose veins, history of incarcerated per esophageal hernia, status post robotic-assisted paraesophageal hernia repair and Frederick fundoplication on 04/12/2022. History of Any Multi-Drug Resistant Organisms: None Reported Past Surgical History: Cholecystectomy, Heart Catheterization, Hernia Repair, Orthopedic Surgery Additional Past Surgical History / Comment(s): Lt achilles tendon,RT SHOULDER surgery, RT ACHILLES TENDON reattached, HEMORRHOIDECTOMY, 13 FATTY TUMORS removed. left hand index finger surgery after injury, EGD WITH DILATION, paraesophageal hernia repair with Frederick fundoplication on 04/12/2022. PEG tube Past Anesthesia/Blood Transfusion Reactions: No Reported Reaction Additional Past Anesthesia/Blood Transfusion Reaction / Comment(s): no hx blood transfusion Past Psychological History: Anxiety, Depression Smoking Status: Former smoker Past Alcohol Use History: None Reported Past Drug Use History: Marijuana - Past Family History Mother Family Medical History: Cancer Father Additional Family Medical History / Comment(s): thinks aneurysm General Exam Limitations: no limitations General appearance: alert, in no apparent distress Head exam: Present: atraumatic, normocephalic, normal inspection Eye exam: Present: normal appearance, PERRL, EOMI. Absent: scleral icterus, conjunctival injection, periorbital swelling ENT exam: Present: normal exam, mucous membranes moist Neck exam: Present: normal inspection. Absent: tenderness, meningismus, lymphadenopathy Respiratory exam: Present: normal lung sounds bilaterally. Absent: respiratory distress, wheezes, rales, rhonchi, stridor Cardiovascular Exam: Present: normal rhythm, tachycardia, normal heart sounds. Absent: systolic murmur, diastolic murmur, rubs, gallop, clicks GI/Abdominal exam: Present: soft, normal bowel sounds. Absent: distended, tenderness, guarding, rebound, rigid Extremities exam: Present: normal inspection, full ROM, normal capillary refill. Absent: tenderness, pedal edema, joint swelling, calf tenderness Back exam: Present: normal inspection Neurological exam: Present: alert, oriented X3, CN II-XII intact Psychiatric exam: Present: normal affect, normal mood Skin exam: Present: warm, dry, intact, normal color. Absent: rash Course Vital Signs 07/29/24 07/29/24 07/30/24 18:27 23:38 00:57 Temperature 97.2 F L Pulse Rate 108 H 82 94 Respiratory 18 18 18 Rate Blood Pressure 140/112 157/106 155/114 O2 Sat by Pulse 99 97 97 Oximetry 07/30/24 07/30/24 07/30/24 02:00 03:15 04:00 Temperature Pulse Rate 89 91 96 Respiratory 15 16 16 Rate Blood Pressure 147/108 83/54 96/77 O2 Sat by Pulse 97 Oximetry 07/30/24 07/30/24 07/30/24 06:00 08:33 10:00 Temperature Pulse Rate 100 74 75 Respiratory 18 20 16 Rate Blood Pressure 116/79 109/74 110/60 O2 Sat by Pulse 97 98 98 Oximetry 07/30/24 07/30/24 07/30/24 11:57 12:34 14:55 Temperature Pulse Rate 60 78 82 Respiratory 16 18 18 Rate Blood Pressure 116/75 132/88 125/89 O2 Sat by Pulse 98 98 99 Oximetry 07/30/24 15:02 Temperature 98.2 F Pulse Rate Respiratory Rate Blood Pressure O2 Sat by Pulse Oximetry - Reevaluation(s) Reevaluation #1: 07/29/24 22:31 Medical records reviewed Patient does have multiple ER visits which usually do inpatient hospitalization for nausea vomiting events Reevaluation #2: 07/29/24 22:31 Patient symptoms improving, no active vomiting here in the ER 07/30/24 00:04 Patient continues to improve here in the ER pain is controlled Reevaluation #3: 07/30/24 00:04 Patient informed of results questions answered recommend admission Reevaluation #4: 07/29/24 22:31 Was pt. sent in by a medical professional or institution (, PA, STATIONARY ENGINEER RE[employer]IGERATION, urgent care, hospital, or longterm...) When possible be specific @ -no Did you speak to anyone other than the patient for history (EMS, parent, family, police, friend...)? What history was obtained from this source @ -no Did you review nursing and triage notes (agree or disagree)? Why? @ -agree Are old charts reviewed (outside hosp., previous admission, EMS record, old EKG, old radiological studies, urgent care reports/EKG's, longterm records)? Report findings @ -yes Differential Diagnosis (chest pain, altered mental status, abdominal pain women, abdominal pain men, vaginal bleeding, weakness, fever, dyspnea, syncope, headache, dizziness, GI bleed, back pain, seizure, CVA, palpatations, mental health, musculoskeletal)? @ -prior EKG interpreted by me (3pts min.). @ -yes X-rays interpreted by me (1pt min.). @ -no CT interpreted by me (1pt min.). @ -yes negative for acute disease U/S interpreted by me (1pt. min.). @ -no What testing was considered but not performed or refused? (CT, X-rays, U/S, labs)? Why? @ -none What meds were considered but not given or refused? Why? @ -none Did you discuss the management of the patient with other professionals (professionals i.e. , PA, STATIONARY ENGINEER [employer]IGERATION, lab, RT, psych nurse, manager social media, gas cutting machine operator, teacher, national service officer, case operator)? Give summary @ -no Was smoking cessation discussed for >3mins.? @ -no Was critical care preformed (if so, how long)? @ -no Were there social determinants of health that impacted care today? How? ( Homelessness, low income, unemployed, alcoholism, drug addiction, transportation, low edu. Level, literacy, decrease access to med. care, alf, rehab)? @ -none Was there de-escalation of care discussed even if they declined (Discuss DNR or withdrawal of care, Hospice)? DNR status @ -no What co-morbidities impacted this encounter? (DM, HTN, Smoking, COPD, CAD, Cancer, CVA, ARF, Chemo, Hep., AIDS, mental health diagnosis, sleep apnea, morbid obesity)? @ -none Was patient admitted / discharged? Hospital course, mention meds given and route, prescriptions, significant lab abnormalities, going to OR and other pertinent info. @ - 68 male with positive history of surgical cholecystectomy, patient coming in for abdominal pain nausea vomiting diarrhea for 2 weeks unable to eat or drink severely weak and dehydrated though improving here in the ER patient has multiple lab abnormalities will admit for continued resuscitation Admitted Undiagnosed new problem with uncertain prognosis? @ -no Drug Therapy requiring intensive monitoring for toxicity (Heparin, Nitro, Insulin, Cardizem)? @ -no Were any procedures done? @ -no Diagnosis/symptom? @ -Nausea vomiting diarrhea and dehydration Acute, or Chronic, or Acute on Chronic? @ -Acute Uncomplicated (without systemic symptoms) or Complicated (systemic symptoms)? @ -Complicated Side effects of treatment? @ -no Exacerbation, Progression, or Severe Exacerbation? @ -exacerbation Poses a threat to life or bodily function? How? (Chest pain, USA, ME, pneumonia, PE, COPD, DKA, ARF, appy, cholecystitis, CVA, Diverticulitis, Homicidal, Suici jose, threat to staff... and all critical care pts) @ -yes postoperative changes Reevaluation #5: Differential Abdominal Pain Men: Appendicitis, cholecystitis, diverticulosis, ischemic bowel, pancreatitis, hepatitis, UTI, gastroenteritis, AAA, incarcerated hernia, bowel obstruction, constipation, inflammatory bowel, hepatitis, peptic ulcer disease, splenic infarction, perforated viscus, testicular torsion, this is not meant to be an all-inclusive list - Consultations Consultation #1: Spoke with [facility] who agrees to admit this patient Medical Decision Making - Medical Decision Making 68 male with positive history of surgical cholecystectomy, patient coming in for abdominal pain nausea vomiting diarrhea for 2 weeks unable to eat or drink severely weak and dehydrated though improving here in the ER patient has multiple lab abnormalities will admit for continued resuscitation - Lab Data Result diagrams: 08/05/24 04:47 08/05/24 04:47 Lab Results 07/29/24 07/29/24 Range/Units 19:03 19:03 WBC 21.2 H (3.8-10.6) k/uL RBC 5.93 H (4.30-5.90) m/uL Hgb 17.4 (13.0-17.5) gm/dL Hct 52.8 (39.0-53.0) % MCV 89.0 (80.0-100.0) fL MCH 29.3 (25.0-35.0) pg MCHC 32.9 (31.0-37.0) g/dL RDW 14.6 (11.5-15.5) % Plt Count 337 (150-450) k/uL MPV 8.9 Neutrophils % 91 % Lymphocytes % 5 % Monocytes % 4 % Eosinophils % 0 % Basophils % 0 % Neutrophils # 19.2 H (1.3-7.7) k/uL Lymphocytes # 1.0 (1.0-4.8) k/uL Monocytes # 0.8 (0-1.0) k/uL Eosinophils # 0.0 (0-0.7) k/uL Basophils # 0.0 (0-0.2) k/uL Sodium 134 L (137-145) mmol/L Potassium 3.3 L (3.5-5.1) mmol/L Chloride 76 L (98-107) mmol/L Carbon Dioxide 45 H* (22-30) mmol/L Anion Gap 13 mmol/L BUN 33 H (9-20) mg/dL Creatinine 1.20 (0.66-1.25) mg/dL Est GFR (CKD-EPI)AfAm 72 (>60 ml/min/1.73 sqM) Est GFR (CKD-EPI)NonAf 62 (>60 ml/min/1.73 sqM) Glucose 187 H (74-99) mg/dL Calcium 11.9 H (8.4-10.2) mg/dL Phosphorus 4.5 (2.5-4.5) mg/dL Magnesium 2.2 (1.6-2.3) mg/dL Total Bilirubin 1.1 (0.2-1.3) mg/dL AST 40 (17-59) U/L ALT 24 (4-49) U/L Alkaline Phosphatase 118 (38-126) U/L Total Protein 6.7 (6.3-8.2) g/dL Albumin 3.8 (3.5-5.0) g/dL Lipase 50 (23-300) U/L Serum Alcohol <10 mg/dL - Radiology Data Radiology results: report reviewed (CT abdomen pelvis negative for acute diseas e), image reviewed Disposition Clinical Impression: Weakness, Nausea & vomiting, Intractable vomiting, Vomiting, Acute renal failure, Intractable nausea and vomiting, Abdominal colic Disposition: ADMITTED IP TO THIS HOSP Condition: Fair Is patient prescribed a controlled substance at d/c from ED?: No
[2024-07-29] MEDS: SODIUM CHLORIDE 0.9% 500 ML 500 ML IV STA (19:00)
[2024-07-29] MEDS: SODIUM CHLORIDE 0.9% 1,000 ML IV STA (19:01)
[2024-07-29] MEDS: ONDANSETRON 4 MG/2 ML VIAL IVP STA (19:01)
[2024-07-29 19:14] LABS: Basophils % (A) 0 %; Eosinophils % (A) 0 %; HCT 52.8 % (39.0-53.0); HGB 17.4 gm/dL (13.0-17.5); Lymphocytes % (A) 5 %; MCH 29.3 pg (25.0-35.0); MCHC 32.9 g/dL (31.0-37.0); Mean Platelet Volume 8.9; Monocytes # (A) 0.8 k/uL (0-1.0); Monocytes % (A) 4 %; Neutrophils # (A) 19.2 k/uL (1.3-7.7); Neutrophils % (A) 91 %; Platelet Count 337 k/uL (150-450); RBC 5.93 m/uL (4.30-5.90); RDW 14.6 % (11.5-15.5); WBC 21.2 k/uL (3.8-10.6)
[2024-07-29 19:27] LABS: ALT 24 U/L (4-49); AST 40 U/L (17-59); African American GFR (CKD) 72 (>60 ml/min/1.73 sqM); Albumin 3.8 g/dL (3.5-5.0); Alcohol <10 mg/dL; Alkaline Phosphatase 118 U/L (38-126); Blood Urea Nitrogen 33 mg/dL (9-20); Calcium 11.9 mg/dL (8.4-10.2); Chloride 76 mmol/L (98-107); Glucose 187 mg/dL (74-99); Lipase 50 U/L (23-300); Magnesium 2.2 mg/dL (1.6-2.3); Non-African American GFR(CKD) 62 (>60 ml/min/1.73 sqM); Phosphorus 4.5 mg/dL (2.5-4.5); Potassium 3.3 mmol/L (3.5-5.1); Sodium 134 mmol/L (137-145); Total Bilirubin 1.1 mg/dL (0.2-1.3); Total Protein 6.7 g/dL (6.3-8.2)
[2024-07-29 19:32] LABS: Anion Gap 13 mmol/L
[2024-07-29 19:36] LABS: Carbon Dioxide 45 mmol/L (22-30)
[2024-07-29] MEDS: PANTOPRAZOLE 40 MG/10 ML VIAL IVP STA (22:31)
[2024-07-29] MEDS: HYDROmorphone 1 MG/ML 1 ML SYRINGE IVP STA (22:32)
[2024-07-29] MEDS: PROCHLORPERAZINE INJ 10 MG/2 ML VIAL IVP STA (22:32)
[2024-07-30] MEDS ORDERED: ONDANSETRON 4 MG/2 ML VIAL IVP PRN (00:02)
[2024-07-30] MEDS ORDERED: NALOXONE 0.4 MG/ML 1 ML VIAL IV PRN (00:02)
[2024-07-30] MEDS: SODIUM CHLORIDE 0.9% 1,000 ML IV SCH ×2 (00:46→10:38)
[2024-07-30] MEDS: hydrALAZINE HCL 20 MG/ML 1 ML VIAL IVP ONE (02:27)
[2024-07-30] MEDS: ACETAMINOPHEN IV (For NPO) 1,000 MG in EMPTY BAG 1 BAG IVPB PRN (02:28)
--- NOTE | 2024-07-30 06:38 | CT ---
EXAMINATION TYPE: CT abdomen pelvis w con DATE OF EXAM: 07/29/2024 COMPARISON: Prior CT January 04, 2024 CLINICAL INDICATION: Male, 68 years old with history of pain; PHH, Nausea/vomiting, unable to eat for 2+ weeks, lethargic. TECHNIQUE: Performed without Oral Contrast and with IV Contrast, patient injected with 100L mL of Isovue 300. CT DLP: [address] CTDI: 14 mGy Automated exposure control for dose reduction was used. FINDINGS: LUNG BASES: Stable linear scarring in the left lung base with 1.0 cm nodularity along the periphery f avoring nodular scarring. LIVER/GB: Liver is heterogeneously hypodense. A few subcentimeter round low dense lesions throughout the liver are redemonstrated presumed benign. Cholecystectomy clips are redemonstrated. PANCREAS: Mild to moderate generalized atrophy redemonstrated. SPLEEN: No significant abnormality is seen. ADRENALS: No significant abnormality is seen. KIDNEYS: Symmetric excretion without hydronephrosis seen bilaterally. Persistent left lateral wall di verticulum axial image 68 in the bladder. FREE AIR: No free air is visualized. RETROPERITONEAL ADENOPATHY: None visualized REPRODUCTIVE ORGANS: Mildly enlarged prostate consistent with BPH URINARY BLADDER: No significant abnormality is seen. PELVIC ADENOPATHY: None visualized. OSSEOUS STRUCTURES: Moderate disc space narrowing at L3-L4 level. Moderate narrowing of both hip estefanía nts is redemonstrated. BOWEL: Persistent postsurgical change at the diaphragmatic hiatus with mild to moderate wall thicken ing of the distal esophagus just above this. Interval removal of PEG tube. Some distal colonic divert icula. No CT evidence for acute diverticulitis. No abnormal small or large bowel dilatation. OTHER: Moderate peripheral plaque right common iliac artery. Stable small fat-containing right inguin al hernia. IMPRESSION: NO BOWEL OBSTRUCTION. NO SUSPICIOUS NEW FINDINGS SEEN TO ACCOUNT FOR PATIENT'S SYMPTOMS. PERSISTENT S URGICAL CHANGE AT THE DIAPHRAGMATIC HIATUS WITH WALL THICKENING OF THE DISTAL ESOPHAGUS JUST PROXIMAL TO THIS. [facility], , 07/30/2024 6:36 AM
[2024-07-30] MEDS: PANTOPRAZOLE 40 MG/10 ML VIAL IVP SCH (08:31)
[2024-07-30] MEDS ORDERED: PANTOPRAZOLE 40 MG/10 ML VIAL IVP SCH (09:00)
[2024-07-30] MEDS ORDERED: ALBUTEROL NEBULIZED 2.5 MG/3 ML INHALATION PRN (10:21)
[2024-07-30] MEDS ORDERED: NITROGLYCERIN SL TABS 0.4 MG TAB SUBLINGUAL PRN (10:21)
[2024-07-30] MEDS: busPIRone HCl 5 MG TAB PO SCH (10:37)
[2024-07-30] MEDS: FERROUS SULFATE 325 MG TAB PO SCH (10:37)
[2024-07-30] MEDS: METOPROLOL TARTRATE 25 MG TAB PO SCH (10:37)
[2024-07-30] MEDS: SERTRALINE 25 MG TAB PO SCH (10:37)
[2024-07-30 11:37] LABS: Basophils % (A) 0 %; Eosinophils % (A) 0 %; HGB 15.7 gm/dL (13.0-17.5); Lymphocytes # (A) 1.1 k/uL (1.0-4.8); Lymphocytes % (A) 8 %; MCHC 31.4 g/dL (31.0-37.0); MCV 92.5 fL (80.0-100.0); Mean Platelet Volume 8.6; Monocytes # (A) 0.6 k/uL (0-1.0); Monocytes % (A) 4 %; Neutrophils # (A) 12.1 k/uL (1.3-7.7); Neutrophils % (A) 87 %; Platelet Count 286 k/uL (150-450); RDW 15.1 % (11.5-15.5)
[2024-07-30 11:49] LABS: African American GFR (CKD) 73 (>60 ml/min/1.73 sqM); Anion Gap 10 mmol/L; Blood Urea Nitrogen 27 mg/dL (9-20); Calcium 9.6 mg/dL (8.4-10.2); Chloride 87 mmol/L (98-107); Glucose 156 mg/dL (74-99); Non-African American GFR(CKD) 64 (>60 ml/min/1.73 sqM); Sodium 137 mmol/L (137-145)
[2024-07-30 12:36] LABS: Carbon Dioxide 40 mmol/L (22-30)
[2024-07-30] MEDS: ONDANSETRON 4 MG/2 ML VIAL IVP PRN (16:05)
[2024-07-30] MEDS: POTASSIUM CHLORIDE 20 MEQ in WATER FOR INJECTION 1 100ML.BAG IVPB STA (18:27)
[2024-07-30] MEDS: 0.9% NACL WITH KCL 20 MEQ/L 1,000 ML IV SCH (18:27)
--- NOTE | 2024-07-30 19:55 | P.HPIM ---
History of Present Illness H&P Date: 07/30/24 This is a pleasant 68 year old male with medical history of asthma, coronary artery disease, stroke, gastroesophageal reflux disease, hypertension, hyperlipidemia, rheumatoid arthritis, prior smoking history and alcoholism. Patient comes in to the hospital with complaints of nausea on going over the last couple days. Denies any vomiting or diarrhea. He denies any fever or chills. He is not having any chest pain or shortness of breath. Patient states that his PEG tube has been removed on an outpatient basis and he is currently on oral food and drink by mouth. Abdominal pelvis CT reveals no hydronephrosis, no bowel obstruction no suspicious new findings seen to the constipation symptoms. Persistent surgical change of the diaphragmatic hiatus with wall thickening of the distal esophagus just proximal to this. Initial blood work reveals a white blood cell count of 21.2, sodium of 144 potassium 3.3, chloride 76 CO2 of 45, BUN of 33 creatinine 1.20 glucose of 187 calcium 11.9 serum alcohol less than 10. Patient was admitted to the hospital under internal medicine with clear liquid diet. He received a GI cocktail and was started on normal saline at 75 mL/h. REVIEW OF SYSTEMS: CONSTITUTIONAL: No fever, no malaise, no fatigue. HEENT: No recent visual problems or hearing problems. Denied any sore throat. CARDIOVASCULAR: No chest pain, orthopnea, PND, no palpitations, no syncope. PULMONARY: No shortness of breath, no cough, no hemoptysis. GASTROINTESTINAL: No diarrhea, no vomiting, no abdominal pain. Reports nausea NEUROLOGICAL: No headaches, no weakness, no numbness. HEMATOLOGICAL: Denies any bleeding or petechiae. GENITOURINARY: Denies any burning micturition, frequency, or urgency. MUSCULOSKELETAL/RHEUMATOLOGICAL: Denies any joint pain, swelling, or any muscle pain. ENDOCRINE: Denies any polyuria or polydipsia. The rest of the 14-point review of systems is negative. PHYSICAL EXAMINATION: GENERAL: The patient is alert and oriented x3, not in any acute distress. Well developed, well nourished. HEENT: Pupils are round and equally reacting to light. EOMI. No scleral icterus. No conjunctival pallor. Normocephalic, atraumatic. No pharyngeal erythema. No t hyromegaly. CARDIOVASCULAR: S1 and S2 present. No murmurs, rubs, or gallops. PULMONARY: Chest is clear to auscultation, no wheezing or crackles. ABDOMEN: Soft, nontender, nondistended, normoactive bowel sounds. No palpable organomegaly. MUSCULOSKELETAL: No joint swelling or deformity. EXTREMITIES: No cyanosis, clubbing, or pedal edema. NEUROLOGICAL: Gross neurological examination did not reveal any focal deficits. SKIN: No rashes. Assessment and plan Intractable nausea without any vomiting or diarrhea, likely due to viral gastroenteritis Leukocytosis reactive Hypovolemic hyponatremia Hypokalemia from poor oral intake Contraction alkalosis secondary to dehydration Hyperglycemia Hypercalcemia from dehydration Mild acute kidney injury, dehydrational History of asthma with no acute exacerbation Coronary artery disease Stroke with no residuals Gastroesophageal reflux disease Hypertension Hyperlipidemia History of rheumatoid arthritis History of dysphagia chronically with PEG tube insertion PEG tube has since been removed and an outpatient basis GI prophylaxis DVT prophylaxis Full code Plan Continue normal saline at 75 mL/h Repeat BMP is ordered and currently pending at this time Clear liquid diet advance as tolerated to full liquid Continue IV Protonix twice daily Replace potassium with IV protocol Check electrolytes and renal function in the morning The impression and plan of care has been dictated by Desiree Clarke, Nurse Practitioner as directed. Dr. Cyndi MD I have performed a history and physical examination and medical decision making of this patient, discussed the same with the dictator, and agree with the dictators assessment and plan as written, documented as a scribe. Based on total visit time, I have performed more than 50% of this visit. Past Medical History Past Medical History: Asthma, Coronary Artery Disease (CAD), Chest Pain / Angina, CVA/TIA, GERD/Reflux, Hyperlipidemia, Hypertension, Pneumonia, Rhe umatoid Arthritis (RA) Additional Past Medical History / Comment(s): MIGRAINES, HEART MURMUR, hx HIATAL HERNIA, ANEMIA, one dr told him he had a stroke at one time-no effects, varicose veins, history of incarcerated per esophageal hernia, status post robotic-assisted paraesophageal hernia repair and Frederick fundoplication on 04/12/2022. History of Any Multi-Drug Resistant Organisms: None Reported Past Surgical History: Cholecystectomy, Heart Catheterization, Hernia Repair, Orthopedic Surgery Additional Past Surgical History / Comment(s): Lt achilles tendon,RT SHOULDER surgery, RT ACHILLES TENDON reattached, HEMORRHOIDECTOMY, 13 FATTY TUMORS removed. left hand index finger surgery after injury, EGD WITH DILATION, paraesophageal hernia repair with Frederick fundoplication on 04/12/2022. PEG tube Past Anesthesia/Blood Transfusion Reactions: No Reported Reaction Additional Past Anesthesia/Blood Transfusion Reaction / Comment(s): no hx blood transfusion Smoking Status: Former smoker - Past Family History Mother Family Medical History: Cancer Father Additional Family Medical History / Comment(s): thinks aneurysm Medications and Allergies Home Medications Medication Instructions Recorded Confirmed Type Albuterol Sulfate [Albuterol 2 puff PO RT-Q4H PRN 07/30/24 07/30/24 History Sulfate Hfa] Ferrous Sulfate [Feosol] 325 mg PO DAILY 07/30/24 07/30/24 History Metoprolol Tartrate [Lopressor] 25 mg PO BID 07/30/24 07/30/24 History Nitroglycerin Sl Tabs [Nitrostat] 0.4 mg SUBLINGUAL Q5M PRN 07/30/24 07/30/24 History Pantoprazole [Protonix] 40 mg PO DAILY 07/30/24 07/30/24 History Sertraline [Zoloft] 25 mg PO DAILY 07/30/24 07/30/24 History busPIRone HCL [Buspar] 7.5 mg PO BID 07/30/24 07/30/24 History Allergies Allergy/AdvReac Type Severity Reaction Status Date / Time No Known Allergies Allergy Verified 07/30/24 09:28 Physical Exam Vitals: Vital Signs Temp Pulse Resp BP BP Pulse Ox 07/30/24 15:40 97.7 F 18 137/91 98 07/30/24 15:02 98.2 F 07/30/24 14:55 82 18 125/89 99 07/30/24 12:34 78 18 132/88 98 07/30/24 11:57 60 16 116/75 98 07/30/24 10:00 75 16 110/60 98 07/30/24 08:33 74 20 109/74 98 07/30/24 06:00 100 18 116/79 97 07/30/24 04:00 96 16 96/77 97 07/30/24 03:15 91 16 83/54 07/30/24 02:00 89 15 147/108 07/30/24 00:57 94 18 155/114 97 07/29/24 23:38 82 18 157/106 97 Intake and Output 07/30/24 07/30/24 07/30/24 06:59 14:59 22:59 Other: Weight 68.039 kg Results CBC & Chem 7: 07/30/24 11:12 07/30/24 11:12 Labs: Abnormal Lab Results - Last 24 Hours (Table) 07/30/24 07/30/24 Range/Units 11:12 11:12 WBC 14.0 H (3.8-10.6) k/uL Neutrophils # 12.1 H (1.3-7.7) k/uL Potassium 3.0 L (3.5-5.1) mmol/L Chloride 87 L (98-107) mmol/L Carbon Dioxide 40 H (22-30) mmol/L BUN 27 H (9-20) mg/dL Glucose 156 H (74-99) mg/dL Thrombosis Risk Factor Assmnt - Choose All That Apply Each Factor Represents 1 point: Varicose veins Each Risk Factor Represents 2 Points: Age 61-74 years Each Risk Factor Represents 3 Points: History of DVT/PE Other congenital or acquired thrombophilia - If yes, enter type in comment: No Thrombosis Risk Factor Assessment Total Risk Factor Score: 6 Thrombosis Risk Factor Assessment Level: High Risk Assessment and Plan Time with Patient: Less than 30
[2024-07-30] MEDS: HEPARIN SODIUM,PORCINE 5,000 UNIT/ML 1 ML VIAL SQ SCH (20:12)
[2024-07-31 08:38] LABS: Basophils # (A) 0.02 X 10*3/uL (0.00-0.10); Basophils % (A) 0.2 %; Eosinophils # (A) 0.04 X 10*3/uL (0.04-0.35); Eosinophils % (A) 0.4 %; HGB 12.7 g/dL (13.0-17.0); Lymphocytes # (A) 1.33 X 10*3/uL (0.90-5.00); Lymphocytes % (A) 13.9 %; MCH 28.9 pg (27.0-32.0); MCHC 31.8 g/dL (32.0-37.0); MCV 91.1 FL (80.0-97.0); Mean Platelet Volume 11.9 FL (9.5-12.2); Monocytes # (A) 0.56 X 10*3/uL (0.20-1.00); Monocytes % (A) 5.8 %; NRBC Per 100 WBC 0 X 10*3/uL (0.00-0.01); Neutrophils % (A) 79.3 %; Platelet Count 234 X 10*3/uL (140-440); RBC 4.39 X 10*6/uL (4.40-5.60); RDW 15.8 % (11.5-14.5); WBC 9.59 X 10*3/uL (4.50-10.00)
[2024-07-31 09:09] LABS: ALT 16 U/L (10-49); AST 37 U/L (14-35); Albumin 3.1 g/dL (3.8-4.9); Albumin/Globulin Ratio 1.63 Ratio (1.60-3.17); Alkaline Phosphatase 79 U/L (41-126); Blood Urea Nitrogen 16.2 mg/dL (9.0-27.0); Carbon Dioxide 31.1 mmol/L (21.6-31.8); Chloride 100 mmol/L (96-109); Globulin 1.9 g/dL (1.6-3.3); Glucose 94 mg/dL (70-110); Magnesium 1.8 mg/dL (1.5-2.4); Potassium 3.4 mmol/L (3.5-5.5); Sodium 142 mmol/L (135-145); Total Bilirubin 0.5 mg/dL (0.3-1.2)
[2024-07-31 09:10] LABS: Phosphorus 2.2 mg/dL (2.4-5.1)
[2024-07-31] MEDS ORDERED: Potassium Replacement Protocol 1 EACH MISC MISCELLANE PRN (10:31)
[2024-07-31] MEDS: POTASSIUM CHLORIDE 10 MEQ in WATER FOR INJECTION 1 100ML.BAG IVPB SCH (11:52)
[2024-07-31] MEDS ORDERED: Phosphorus Replacement Protoco 1 EACH MISC MISCELLANE PRN (21:34)
[2024-07-31] MEDS ORDERED: Magnesium Replacement Protocol 1 EACH MISC MISCELLANE PRN (21:34)
--- NOTE | 2024-07-31 21:36 | P.PN ---
Subjective Progress Note Date: 07/31/24 This is a pleasant 68 year old male with medical history of asthma, coronary artery disease, stroke, gastroesophageal reflux disease, hypertension, hyperlipidemia, rheumatoid arthritis, prior smoking history and alcoholism. Patient comes in to the hospital with complaints of nausea on going over the last couple days. Denies any vomiting or diarrhea. He denies any fever or chills. He is not having any chest pain or shortness of breath. Patient states that his PEG tube has been removed on an outpatient basis and he is currently on oral food and drink by mouth. Abdominal pelvis CT reveals no hydronephrosis, no bowel obstruction no suspicious new findings seen to the constipation symptoms. Persistent surgical change of the diaphragmatic hiatus with wall thickening of the distal esophagus just proximal to this. Initial blood work reveals a white blood cell count of 21.2, sodium of 144 potassium 3.3, chloride 76 CO2 of 45, BUN of 33 creatinine 1.20 glucose of 187 calcium 11.9 serum alcohol less than 10. Patient was admitted to the hospital under internal medicine with clear liquid diet. He received a GI cocktail and was started on normal saline at 75 mL/h. 07/31/2024 Patient evaluated in follow up on the medical floor. Currently reporting continued constant nausea. He states he is not nauseas when he is not moving though. He has been continued on clear liquids. He vomited the clear liquid breakfast. No abdominal tenderness. White blood cell count 9.59, sodium 142, potassium 3.4. BUN 16.2, creatinine 0.9. Magnesium 1.8. REVIEW OF SYSTEMS: CONSTITUTIONAL: No fever, no malaise, no fatigue. HEENT: No recent visual problems or hearing problems. Denied any sore throat. CARDIOVASCULAR: No chest pain, orthopnea, PND, no palpitations, no syncope. PULMONARY: No shortness of breath, no cough, no hemoptysis. GASTROINTESTINAL: No diarrhea, no vomiting, no abdominal pain. Reports nausea NEUROLOGICAL: No headaches, no weakness, no numbness. PHYSICAL EXAMINATION: GENERAL: The patient is alert and oriented x3, not in any acute distress. Well developed, well nourished. HEENT: Pupils are round and equally reacting to light. EOMI. No scleral icterus. No conjunctival pallor. Normocephalic, atraumatic. No pharyngeal erythema. No thyromegaly. CARDIOVASCULAR: S1 and S2 present. No murmurs, rubs, or gallops. PULMONARY: Chest is clear to auscultation, no wheezing or crackles. ABDOMEN: Soft, nontender, nondistended, normoactive bowel sounds. No palpable organomegaly. MUSCULOSKELETAL: No joint swelling or deformity. EXTREMITIES: No cyanosis, clubbing, or pedal edema. NEUROLOGICAL: Gross neurological examination did not reveal any focal deficits. SKIN: No rashes. Assessment and plan Intractable nausea without any vomiting or diarrhea, likely due to viral gastroenteritis Leukocytosis reactive Hypovolemic hyponatremia Hypokalemia from poor oral intake Contraction alkalosis secondary to dehydration Hyperglycemia Hypercalcemia from dehydration Mild acute kidney injury, dehydrational History of asthma with no acute exacerbation Coronary artery disease Stroke with no residuals Gastroesophageal reflux disease Hypertension Hyperlipidemia History of rheumatoid arthritis History of dysphagia chronically with PEG tube insertion PEG tube has since been removed and an outpatient basis GI prophylaxis DVT prophylaxis Full code Plan Continue normal saline at 75 mL/h Clear liquid diet Continue IV Protonix twice daily Supplement magnesium, phosphorous. Consult GI for the nausea and vomiting. Monitor electrolytes and renal function. The impression and plan of care has been dictated by Desiree Clarke, Nurse Practitioner as directed. Dr. Cyndi MD I have performed a history and physical examination and medical decision making of this patient, discussed the same with the dictator, and agree with the dictators assessment and plan as written, documented as a scribe. Based on total visit time, I have performed more than 50% of this visit. Objective - Vital Signs Vital signs: Vital Signs Temp 97.5 F L 07/31/24 07:08 Pulse 77 07/31/24 07:08 Resp 16 07/31/24 07:08 BP 160/89 07/31/24 07:49 Pulse Ox 99 07/31/24 07:08 FiO2 Intake & Output 07/30/24 07/31/24 07/31/24 18:59 06:59 18:59 Output Total 200 300 Balance -200 -300 Weight 68.039 kg Output: Urine 200 300 Other: Voiding Method Toilet Urinal # Voids 250 - Labs CBC & Chem 7: 07/31/24 05:52 07/31/24 05:52 Labs: Abnormal Lab Results - Last 24 Hours (Table) 07/31/24 07/31/24 Range/Units 05:52 05:52 RBC 4.39 L (4.40-5.60) X 10*6/uL Hgb 12.7 L (13.0-17.0) g/dL MCHC 31.8 L (32.0-37.0) g/dL RDW 15.8 H (11.5-14.5) % Potassium 3.4 L (3.5-5.5) mmol/L Calcium 8.0 L (8.7-10.3) mg/dL Phosphorus 2.2 L (2.4-5.1) mg/dL AST 37 H (14-35) U/L Total Protein 5.0 L (6.2-8.2) g/dL Albumin 3.1 L (3.8-4.9) g/dL Assessment and Plan Time with Patient: Less than 30
[2024-07-31] MEDS: MAGNESIUM SULFATE-D5W PMX 1 GM in DEXTROSE/WATER 1 100ML.BAG IVPB ONE (22:23)
[2024-08-01] MEDS: POTAS-SOD-PHOS 280-160-250 MG 1 EACH PACKET PO ONE (00:14)
[2024-08-01 11:35] LABS: BUN/Creat Ratio 12.14 Ratio (12.00-20.00); Blood Urea Nitrogen 8.5 mg/dL (9.0-27.0); Calcium 7.7 mg/dL (8.7-10.3); Carbon Dioxide 29.4 mmol/L (21.6-31.8); Chloride 102 mmol/L (96-109); Glucose 94 mg/dL (70-110); Magnesium 1.9 mg/dL (1.5-2.4); Phosphorus 1.3 mg/dL (2.4-5.1); Potassium 4.3 mmol/L (3.5-5.5); Sodium 140 mmol/L (135-145)
--- NOTE | 2024-08-01 14:47 | P.GSCN ---
History of Present Illness Consult date: 08/01/24 History of present illness: CHIEF COMPLAINT: Nausea and vomiting HISTORY OF PRESENT ILLNESS: This is a 68-year-old male who presented with nausea vomiting and abdominal pain for about 2 weeks. Patient reports that he cannot keep solids down usually. It is in the liquids that he vomits. He had a CT scan abdomen pelvis that had shown evidence of wall thickening in the esophagus. Patient does have a known history of laparoscopic repair of paraesophageal hiatal hernia with mesh in September 2023. He also has had a PEG tube placement in October which has been removed. His last EGD was in August 2023 and at that time moderate hiatal hernia and esophagitis. PAST MEDICAL HISTORY: Asthma, Coronary Artery Disease (CAD), Chest Pain / Angina, CVA/TIA, GERD/Reflux, Hyperlipidemia, Hypertension, Pneumonia, Rheumatoid Arthritis (RA)MIGRAINES, HEART MURMUR, hx HIATAL HERNIA, ANEMIA, one dr told him he had a stroke at one time-no effects, varicose veins, history of incarcerated per esophageal hernia, status post robotic-assisted paraesophageal hernia repair and Frederick fundoplication on 04/12/2022. PAST SURGICAL HISTORY: Cholecystectomy, Heart Catheterization, Hernia Repair, Orthopedic Surgery, Lt achilles tendon,RT SHOULDER surgery, RT ACHILLES TENDON reattached, HEMORRHOIDECTOMY, 13 FATTY TUMORS removed. left hand index finger surgery after injury, EGD WITH DILATION, paraesophageal hernia repair with Frederick fundoplication on 04/12/2022. PEG tube MEDICATIONS: See below ALLERGIES: See below SOCIAL HISTORY: No illicit drug use. REVIEW OF SYSTEMS: CONSTITUTIONAL: Denies fever or chills. HEENT: Denies blurred vision, vision changes, or eye pain. Denies hemoptysis CARDIOVASCULAR: Denies chest pain or pressure. RESPIRATORY: No shortness of breath. GASTROINTESTINAL: See HPI for pertinent findings HEMATOLOGIC: Denies bleeding disorders. GENITOURINARY: Denies any blood in urine or increased urinary frequency. SKIN: Denies pruitis. Denies rash. PHYSICAL EXAM: VITAL SIGNS: Reviewed GENERAL: Well-developed in no acute distress. HEENT: No sclera icterus. Extraocular movements grossly intact. Moist buccal mucosa. Head is atraumatic, normocephalic. No nasal drainage. ABDOMEN: Soft. Nondistended. Mild tenderness with palpation epigastric area and old PEG tube site no rebound or guarding. Old PEG tube site clean dry and intact. NEUROLOGIC: Alert and oriented. Cranial nerves II through XII grossly intact. LABORATORY DATA: WBC 9.45 Hgb 12.7 platelets 234 Sodium 140 potassium 4.3 creatinine 0.7 Magnesium 1.9 phosphorus is 1.3 IMAGING: CT scan abdomen pelvis reports no bowel obstruction. No suspicious new findings seen to account for patient's symptoms. Persistent surgical change at the diaphragmatic hiatus with wall thickening of the distal esophagus just proximal to this. ASSESSMENT: 1. Chronic dysphagia and recurrent nausea and vomiting 2. History of hiatal hernia repair with mesh in September 2023 3. Prior history of PEG tube placement and removal PLAN: -Patient would like to try a regular diet. He reports that he usually tolerates solid foods. Will trial regular diet -Patient may benefit from a swallow study -Continue to monitor Physician Chief Chemist note has been reviewed by physician. Signing provider agrees with the documented findings, assessment, and plan of care. Past Medical History Past Medical History: Asthma, Coronary Artery Disease (CAD), Chest Pain / A ngina, CVA/TIA, GERD/Reflux, Hyperlipidemia, Hypertension, Pneumonia, Rheumatoid Arthritis (RA) Additional Past Medical History / Comment(s): MIGRAINES, HEART MURMUR, hx HIATAL HERNIA, ANEMIA, one dr told him he had a stroke at one time-no effects, varicose veins, history of incarcerated per esophageal hernia, status post robotic-assisted paraesophageal hernia repair and Frederick fundoplication on 04/12/2022. History of Any Multi-Drug Resistant Organisms: None Reported Past Surgical History: Cholecystectomy, Heart Catheterization, Hernia Repair, Orthopedic Surgery Additional Past Surgical History / Comment(s): Lt achilles tendon,RT SHOULDER surgery, RT ACHILLES TENDON reattached, HEMORRHOIDECTOMY, 13 FATTY TUMORS removed. left hand index finger surgery after injury, EGD WITH DILATION, parae sophageal hernia repair with Frederick fundoplication on 04/12/2022. PEG tube Past Anesthesia/Blood Transfusion Reactions: No Reported Reaction Additional Past Anesthesia/Blood Transfusion Reaction / Comm: no hx blood transfusion Smoking Status: Former smoker - Past Family History Mother Family Medical History: Cancer Father Additional Family Medical History / Comment(s): thinks aneurysm Medications and Allergies Home Medications Medication Instructions Recorded Confirmed Type Albuterol Sulfate [Albuterol 2 puff PO RT-Q4H PRN 07/30/24 07/30/24 History Sulfate Hfa] Ferrous Sulfate [Feosol] 325 mg PO DAILY 07/30/24 07/30/24 History Metoprolol Tartrate [Lopressor] 25 mg PO BID 07/30/24 07/30/24 History Nitroglycerin Sl Tabs [Nitrostat] 0.4 mg SUBLINGUAL Q5M PRN 07/30/24 07/30/24 History Pantoprazole [Protonix] 40 mg PO DAILY 07/30/24 07/30/24 History Sertraline [Zoloft] 25 mg PO DAILY 07/30/24 07/30/24 History busPIRone HCL [Buspar] 7.5 mg PO BID 07/30/24 07/30/24 History Allergies Allergy/AdvReac Type Severity Reaction Status Date / Time No Known Allergies Allergy Verified 07/30/24 09:28 Surgical - Exam Vital Signs Temp Pulse Resp BP Pulse Ox 97.2 F L 108 H 18 140/112 99 07/29/24 18:27 07/29/24 18:27 07/29/24 18:27 07/29/24 18:27 07/29/24 18:27 Results - Labs 07/31/24 05:52 08/01/24 05:18 Abnormal Lab Results - Last 24 Hours (Table) 08/01/24 Range/Units 05:18 BUN 8.5 L (9.0-27.0) mg/dL Calcium 7.7 L (8.7-10.3) mg/dL Phosphorus 1.3 L (2.4-5.1) mg/dL Diabetes panel 07/31/24 08/01/24 Range/Units 23:26 05:18 Sodium 140 (135-145) mmol/L Potassium 3.9 4.3 (3.5-5.1) mmol/L Chloride 102 (96-109) mmol/L Carbon Dioxide 29.4 (21.6-31.8) mmol/L BUN 8.5 L (9.0-27.0) mg/dL Creatinine 0.7 (0.6-1.5) mg/dL Glucose 94 (70-110) mg/dL Calcium 7.7 L (8.7-10.3) mg/dL Calcium panel 08/01/24 Range/Units 05:18 Calcium 7.7 L (8.7-10.3) mg/dL Phosphorus 1.3 L (2.4-5.1) mg/dL Pituitary panel 07/31/24 08/01/24 Range/Units 23:26 05:18 Sodium 140 (135-145) mmol/L Potassium 3.9 4.3 (3.5-5.1) mmol/L Chloride 102 (96-109) mmol/L Carbon Dioxide 29.4 (21.6-31.8) mmol/L BUN 8.5 L (9.0-27.0) mg/dL Creatinine 0.7 (0.6-1.5) mg/dL Glucose 94 (70-110) mg/dL Calcium 7.7 L (8.7-10.3) mg/dL Adrenal panel 07/31/24 08/01/24 Range/Units 23:26 05:18 Sodium 140 (135-145) mmol/L Potassium 3.9 4.3 (3.5-5.1) mmol/L Chloride 102 (96-109) mmol/L Carbon Dioxide 29.4 (21.6-31.8) mmol/L BUN 8.5 L (9.0-27.0) mg/dL Creatinine 0.7 (0.6-1.5) mg/dL Glucose 94 (70-110) mg/dL Calcium 7.7 L (8.7-10.3) mg/dL
--- NOTE | 2024-08-01 21:25 | P.PN ---
Subjective Progress Note Date: 08/01/24 This is a pleasant 68 year old male with medical history of asthma, coronary artery disease, stroke, gastroesophageal reflux disease, hypertension, hyperlipidemia, rheumatoid arthritis, prior smoking history and alcoholism. Patient comes in to the hospital with complaints of nausea on going over the last couple days. Denies any vomiting or diarrhea. He denies any fever or chills. He is not having any chest pain or shortness of breath. Patient states that his PEG tube has been removed on an outpatient basis and he is currently on oral food and drink by mouth. Abdominal pelvis CT reveals no hydronephrosis, no bowel obstruction no suspicious new findings seen to the constipation symptoms. Persistent surgical change of the diaphragmatic hiatus with wall thickening of the distal esophagus just proximal to this. Initial blood work reveals a white blood cell count of 21.2, sodium of 144 potassium 3.3, chloride 76 CO2 of 45, BUN of 33 creatinine 1.20 glucose of 187 calcium 11.9 serum alcohol less than 10. Patient was admitted to the hospital under internal medicine with clear liquid diet. He received a GI cocktail and was started on normal saline at 75 mL/h. 07/31/2024 Patient evaluated in follow up on the medical floor. Currently reporting continued constant nausea. He states he is not nauseas when he is not moving though. He has been continued on clear liquids. He vomited the clear liquid breakfast. No abdominal tenderness. White blood cell count 9.59, sodium 142, potassium 3.4. BUN 16.2, creatinine 0.9. Magnesium 1.8. 08/01/2024 Patient evaluated today in follow up resting in bed. He continues to report significant nausea and unable to tolerate much activity. Phosphorous level 1.3. REVIEW OF SYSTEMS: CONSTITUTIONAL: No fever, no malaise, no fatigue. HEENT: No recent visual problems or hearing problems. Denied any sore throat. CARDIOVASCULAR: No chest pain, orthopnea, PND, no palpitations, no syncope. PULMONARY: No shortness of breath, no cough, no hemoptysis. GASTROINTESTINAL: No diarrhea, no vomiting, no abdominal pain. Reports nausea NEUROLOGICAL: No headaches, no weakness, no numbness. PHYSICAL EXAMINATION: GENERAL: The patient is alert and oriented x3, not in any acute distress. Well developed, well nourished. HEENT: Pupils are round and equally reacting to light. EOMI. No scleral icterus. No conjunctival pallor. Normocephalic, atraumatic. No pharyngeal erythema. No thyromegaly. CARDIOVASCULAR: S1 and S2 present. No murmurs, rubs, or gallops. PULMONARY: Chest is clear to auscultation, no wheezing or crackles. ABDOMEN: Soft, nontender, nondistended, normoactive bowel sounds. No palpable organomegaly. MUSCULOSKELETAL: No joint swelling or deformity. EXTREMITIES: No cyanosis, clubbing, or pedal edema. NEUROLOGICAL: Gross neurological examination did not reveal any focal deficits. SKIN: No rashes. Assessment and plan Intractable nausea without any vomiting or diarrhea, likely due to viral gastroenteritis Leukocytosis reactive Hypovolemic hyponatremia Hypokalemia from poor oral intake Contraction alkalosis secondary to dehydration Hyperglycemia Hypercalcemia from dehydration Mild acute kidney injury, dehydrational History of asthma with no acute exacerbation Coronary artery disease Stroke with no residuals Gastroesophageal reflux disease Hypertension Hyperlipidemia History of rheumatoid arthritis History of dysphagia chronically with PEG tube insertion PEG tube has since been removed and an outpatient basis GI prophylaxis DVT prophylaxis Full code Plan Continue normal saline at 75 mL/h Clear liquid diet Continue IV Protonix twice daily Supplement magnesium, phosphorous. Consult general surgery for the nausea and vomiting. Monitor electrolytes and renal function. The impression and plan of care has been dictated by Desiree Clarke, Nurse Practitioner as directed. Dr. Cyndi MD I have performed a history and physical examination and medical decision making of this patient, discussed the same with the dictator, and agree with the dictators assessment and plan as written, documented as a scribe. Based on total visit time, I have performed more than 50% of this visit. Objective - Vital Signs Vital signs: Vital Signs Temp 98.0 F 08/01/24 19:32 Pulse 71 08/01/24 19:32 Resp 18 08/01/24 19:32 BP 111/80 08/01/24 19:32 Pulse Ox 94 L 08/01/24 19:32 FiO2 Intake & Output 08/01/24 08/01/24 08/02/24 06:59 18:59 06:59 Intake Total 480 Output Total 950 250 Balance -950 230 Intake: Oral 480 Output: Urine 950 250 Other: Voiding Method Toilet Urinal - Labs CBC & Chem 7: 07/31/24 05:52 08/01/24 05:18 Labs: Abnormal Lab Results - Last 24 Hours (Table) 08/01/24 Range/Units 05:18 BUN 8.5 L (9.0-27.0) mg/dL Calcium 7.7 L (8.7-10.3) mg/dL Phosphorus 1.3 L (2.4-5.1) mg/dL Assessment and Plan Time with Patient: Less than 30
[2024-08-01] MEDS: SODIUM PHOSPHATE 30 MMOL in DEXTROSE 5% IN WATER 250 ML IVPB ONE (23:29)
[2024-08-02 08:54] LABS: BUN/Creat Ratio 11.29 Ratio (12.00-20.00); Blood Urea Nitrogen 7.9 mg/dL (9.0-27.0); Carbon Dioxide 26.7 mmol/L (21.6-31.8); Chloride 102 mmol/L (96-109); Glucose 134 mg/dL (70-110); Potassium 3.4 mmol/L (3.5-5.5); Sodium 139 mmol/L (135-145)
[2024-08-02 08:55] LABS: Calcium 7.4 mg/dL (8.7-10.3)
[2024-08-02 09:57] LABS: Phosphorus 3.4 mg/dL (2.4-5.1)
--- NOTE | 2024-08-02 10:26 | P.PN ---
Subjective Progress Note Date: 08/02/24 SURGICAL PROGRESS NOTE CHIEF COMPLAINT: Nausea and vomiting HISTORY OF PRESENT ILLNESS: Patient currently tolerating regular diet. He reports he does better with solid foods. Denies any abdominal pain. Potassium 3.4 PHYSICAL EXAM: VITAL SIGNS: Reviewed. GENERAL: Well-developed in no acute distress. ABDOMEN: Soft. Nondistended. Nontender. NEUROLOGIC: Alert and oriented. Cranial nerves II through XII grossly intact. ASSESSMENT: 1. Recurrent nausea and vomiting 2. Chronic dysphagia 3. History of hiatal hernia repair with mesh in September 2023 4. Prior history of PEG tube placement and removal PLAN: -Patient currently tolerating regular diet -Okay for discharge from surgical standpoint Physician Rf Test Technician note has been reviewed by physician. Signing provider agrees with the documented findings, assessment, and plan of care. Objective - Vital Signs Vital signs: Vital Signs Temp 98.3 F 08/02/24 07:30 Pulse 81 08/02/24 07:30 Resp 16 08/02/24 07:30 BP 134/76 08/02/24 07:30 Pulse Ox 96 08/02/24 07:30 FiO2 Intake & Output 08/01/24 08/02/24 08/02/24 18:59 06:59 18:59 Intake Total 480 240 Output Total 250 875 600 Balance 230 -875 -360 Intake: Oral 480 240 Output: Urine 250 875 600 Other: Voiding Method Toilet Urinal - Labs CBC & Chem 7: 07/31/24 05:52 08/02/24 03:35 Labs: Abnormal Lab Results - Last 24 Hours (Table) 08/01/24 08/02/24 Range/Units 05:18 03:35 Potassium 3.4 L (3.5-5.5) mmol/L BUN 8.5 L 7.9 L (9.0-27.0) mg/dL BUN/Creatinine Ratio 11.29 L (12.00-20.00) Ratio Glucose 134 H (70-110) mg/dL Calcium 7.7 L 7.4 L (8.7-10.3) mg/dL Phosphorus 1.3 L (2.4-5.1) mg/dL
[2024-08-02] MEDS: POTASSIUM CHLORIDE ER 20 MEQ TAB.ER PO STA (11:12)
--- NOTE | 2024-08-03 07:56 | P.PN ---
Subjective Progress Note Date: 08/02/24 This is a pleasant 68 year old male with medical history of asthma, coronary artery disease, stroke, gastroesophageal reflux disease, hypertension, hyperlipidemia, rheumatoid arthritis, prior smoking history and alcoholism. Patient comes in to the hospital with complaints of nausea on going over the last couple days. Denies any vomiting or diarrhea. He denies any fever or chills. He is not having any chest pain or shortness of breath. Patient states that his PEG tube has been removed on an outpatient basis and he is currently on oral food and drink by mouth. Abdominal pelvis CT reveals no hydronephrosis, no bowel obstruction no suspicious new findings seen to the constipation symptoms. Persistent surgical change of the diaphragmatic hiatus with wall thickening of the distal esophagus just proximal to this. Initial blood work reveals a white blood cell count of 21.2, sodium of 144 potassium 3.3, chloride 76 CO2 of 45, BUN of 33 creatinine 1.20 glucose of 187 calcium 11.9 serum alcohol less than 10. Patient was admitted to the hospital under internal medicine with clear liquid diet. He received a GI cocktail and was started on normal saline at 75 mL/h. 07/31/2024 Patient evaluated in follow up on the medical floor. Currently reporting continued constant nausea. He states he is not nauseas when he is not moving though. He has been continued on clear liquids. He vomited the clear liquid breakfast. No abdominal tenderness. White blood cell count 9.59, sodium 142, potassium 3.4. BUN 16.2, creatinine 0.9. Magnesium 1.8. 08/01/2024 Patient evaluated today in follow up resting in bed. He continues to report significant nausea and unable to tolerate much activity. Phosphorous level 1.3. 08/02/2024 Patient evaluated today resting in bed. He states he feels ok. He was trialed on regular diet states it caused him to throw up right away. Phosphorous level up to 3.4. REVIEW OF SYSTEMS: CONSTITUTIONAL: No fever, no malaise, no fatigue. HEENT: No recent visual problems or hearing problems. Denied any sore throat. CARDIOVASCULAR: No chest pain, orthopnea, PND, no palpitations, no syncope. PULMONARY: No shortness of breath, no cough, no hemoptysis. GASTROINTESTINAL: No diarrhea, no vomiting, no abdominal pain. Reports nausea NEUROLOGICAL: No headaches, no weakness, no numbness. PHYSICAL EXAMINATION: GENERAL: The patient is alert and oriented x3, not in any acute distress. Well developed, well nourished. HEENT: Pupils are round and equally reacting to light. EOMI. No scleral icterus. No conjunctival pallor. Normocephalic, atraumatic. No pharyngeal erythema. No thyromegaly. CARDIOVASCULAR: S1 and S2 present. No murmurs, rubs, or gallops. PULMONARY: Chest is clear to auscultation, no wheezing or crackles. ABDOMEN: Soft, nontender, nondistended, normoactive bowel sounds. No palpable organomegaly. MUSCULOSKELETAL: No joint swelling or deformity. EXTREMITIES: No cyanosis, clubbing, or pedal edema. NEUROLOGICAL: Gross neurological examination did not reveal any focal deficits. SKIN: No rashes. Assessment and plan Intractable nausea without any vomiting or diarrhea, likely due to viral gastroenteritis History of paraesophageal hernia repair Leukocytosis reactive Hypovolemic hyponatremia Hypokalemia from poor oral intake Contraction alkalosis secondary to dehydration Hyperglycemia Hypercalcemia from dehydration Mild acute kidney injury, dehydrational History of asthma with no acute exacerbation Coronary artery disease Stroke with no residuals Gastroesophageal reflux disease Hypertension Hyperlipidemia History of rheumatoid arthritis History of dysphagia chronically with PEG tube insertion PEG tube has since been removed and an outpatient basis GI prophylaxis DVT prophylaxis Full code Plan Continue normal saline at 75 mL/h Clear liquid diet Continue IV Protonix twice daily Supplement magnesium, phosphorous. Consult general surgery for the nausea and vomiting. Possible EGD Monitor electrolytes and renal function. The impression and plan of care has been dictated by Desiree Clarke, Nurse Practitioner as directed. Dr. Cyndi MD I have performed a history and physical examination and medical decision making of this patient, discussed the same with the dictator, and agree with the dictators assessment and plan as written, documented as a scribe. Based on total visit time, I have performed more than 50% of this visit. Objective - Vital Signs Vital signs: Vital Signs Temp 99.5 F 08/03/24 07:41 Pulse 69 08/03/24 07:41 Resp 16 08/03/24 07:41 BP 133/82 08/03/24 07:41 Pulse Ox 96 08/03/24 07:41 FiO2 Intake & Output 08/02/24 08/03/24 08/03/24 18:59 06:59 18:59 Intake Total 358 Output Total 600 2 650 Balance -242 -2 650 Intake: Oral 358 Output: Urine 600 2 650 Other: Voiding Method Toilet Toilet Urinal Urinal # Voids 1 2 - Labs CBC & Chem 7: 07/31/24 05:52 08/02/24 03:35 Labs: Abnormal Lab Results - Last 24 Hours (Table) 08/02/24 Range/Units 03:35 Potassium 3.4 L (3.5-5.5) mmol/L BUN 7.9 L (9.0-27.0) mg/dL BUN/Creatinine Ratio 11.29 L (12.00-20.00) Ratio Glucose 134 H (70-110) mg/dL Calcium 7.4 L (8.7-10.3) mg/dL Assessment and Plan Time with Patient: Less than 30
[2024-08-03 08:56] LABS: African American GFR (CKD) >90 (>60 ml/min/1.73 sqM); Anion Gap 4 mmol/L; Blood Urea Nitrogen 8 mg/dL (9-20); Calcium 7.9 mg/dL (8.4-10.2); Carbon Dioxide 27 mmol/L (22-30); Chloride 103 mmol/L (98-107); Glucose 100 mg/dL (74-99); Non-African American GFR(CKD) >90 (>60 ml/min/1.73 sqM); Potassium 3.8 mmol/L (3.5-5.1); Sodium 134 mmol/L (137-145)
[2024-08-03] MEDS: ACETAMINOPHEN IV (For NPO) 1,000 MG in EMPTY BAG 1 BAG IVPB ONE (10:51)
--- NOTE | 2024-08-03 15:07 | P.PN ---
Subjective Progress Note Date: 08/03/24 CHIEF COMPLAINT: Dysphagia HISTORY OF PRESENT ILLNESS: The patient is a 68-year-old male with nausea and vomiting. Patient reports he is unable to tolerate his food. He still have quite a bit of vomiting. He reports food and saliva gets stuck in his upper esophagus at his throat. His mother at bedside also reports similar symptoms. Patient does report symptoms are worse after eating or drinking cold beverages. He can tolerate broth. He is still having vomiting at bedside. Patient has been trying to take carbonated beverages despite his history of hiatal hernia repair/[place]. He reports moderate mucus. ROS: No fevers or chills. No new chest pain. No productive sputum PHYSICAL EXAM: VITAL SIGNS: Reviewed CONSTITUTIONAL: Well developed and in no acute distress. EYES: Conjuctivae without sclera icterus. Extraocular movements grossly intact. HEAD, EARS, NOSE, THROAT: Moist buccal mucosa. Head is atraumatic, normocephalic. Hears conversational speech. No nasal drainage. Poor dentition. RESPIRATORY: Non-labored respirations and equal bilateral excursions. CARDIOVASCULAR: Palpable 2+ radial pulses. ABDOMEN: Nontender MUSCULOSKELETAL: No gross deformity of the lower extremities noted. No clubbing. No cyanosis. SKIN: Good skin turgor. Well perfused. NEUROLOGIC: Cranial nerves II through XII grossly intact. No focal or lateralizing signs. PSYCH: Appropriate affect. Alert and oriented to person, place and time. CLINICAL LABS: Reviewed. Sodium low. Albumin low. ASSESSMENT: 1. Intractable nausea and vomiting 2. Dysphagia 3. Presbyesophagus PLAN: 1. Overall, his symptoms are highly suspicious of a combination of presbyesophagus including upper esophageal stenosis which is best treated with rigid dilation. 2. Patient reports that he was given roast beef to eat for lunch however this textured food is the most difficult to swallow and exacerbates his symptoms. 3. Recommend warm beverages prior to attempts of eating with preferably soft textured food 4. Will arrange for upper endoscopy with dilation for esophageal stenosis/dysphagia Objective - Vital Signs Vital signs: Vital Signs Temp 98.2 F 08/03/24 14:00 Pulse 89 08/03/24 14:00 Resp 16 08/03/24 14:00 BP 110/67 08/03/24 14:00 Pulse Ox 94 L 08/03/24 14:00 FiO2 Intake & Output 08/02/24 08/03/24 08/03/24 18:59 06:59 18:59 Intake Total 358 118 Output Total 600 2 925 [facility] [place] -242 -2 -807 Intake: Oral 358 118 Output: Urine 600 2 925 Other: Voiding Method Toilet Toilet Toilet Urinal Urinal Urinal # Voids 1 2 - Labs CBC & Chem 7: 07/31/24 05:52 08/03/24 08:03 Labs: Abnormal Lab Results - Last 24 Hours (Table) 08/03/24 Range/Units 08:03 Sodium 134 L (137-145) mmol/L BUN 8 L (9-20) mg/dL Creatinine 0.55 L (0.66-1.25) mg/dL Glucose 100 H (74-99) mg/dL Calcium 7.9 L (8.4-10.2) mg/dL
--- NOTE | 2024-08-04 02:23 | P.PN ---
Subjective Progress Note Date: 08/03/24 This is a pleasant 68 year old male with medical history of asthma, coronary artery disease, stroke, gastroesophageal reflux disease, hypertension, hyperlipidemia, rheumatoid arthritis, prior smoking history and alcoholism. Patient comes in to the hospital with complaints of nausea on going over the last couple days. Denies any vomiting or diarrhea. He denies any fever or chills. He is not having any chest pain or shortness of breath. Patient states that his PEG tube has been removed on an outpatient basis and he is currently on oral food and drink by mouth. Abdominal pelvis CT reveals no hydronephrosis, no bowel obstruction no suspicious new findings seen to the constipation symptoms. Persistent surgical change of the diaphragmatic hiatus with wall thickening of the distal esophagus just proximal to this. Initial blood work reveals a white blood cell count of 21.2, sodium of 144 potassium 3.3, chloride 76 CO2 of 45, BUN of 33 creatinine 1.20 glucose of 187 calcium 11.9 serum alcohol less than 10. Patient was admitted to the hospital under internal medicine with clear liquid diet. He received a GI cocktail and was started on normal saline at 75 mL/h. 07/31/2024 Patient evaluated in follow up on the medical floor. Currently reporting continued constant nausea. He states he is not nauseas when he is not moving though. He has been continued on clear liquids. He vomited the clear liquid breakfast. No abdominal tenderness. White blood cell count 9.59, sodium 142, potassium 3.4. BUN 16.2, creatinine 0.9. Magnesium 1.8. 08/01/2024 Patient evaluated today in follow up resting in bed. He continues to report significant nausea and unable to tolerate much activity. Phosphorous level 1.3. 08/02/2024 Patient evaluated today resting in bed. He states he feels ok. He was trialed on regular diet states it caused him to throw up right away. Phosphorous level up to 3.4. 08/03/2024 Patient is seen in follow-up reporting an intense headache per nursing staff. Patient apparently has been vomiting over 10 times since last night and not tolerating much oral intake. Patient was evaluated by surgery although recommend reevaluation as patient is not tolerating any oral intake and is retching and heaving while having conversation. Patient will be placed on dysphagia diet per surgery and discussion of possible EGD with dilatation. Patient is afebrile and denies chest pain or shortness of breath. REVIEW OF SYSTEMS: CONSTITUTIONAL: No fever, no malaise, no fatigue. HEENT: No recent visual problems or hearing problems. Denied any sore throat. CARDIOVASCULAR: No chest pain, orthopnea, PND, no palpitations, no syncope. PULMONARY: No shortness of breath, no cough, no hemoptysis. GASTROINTESTINAL: No diarrhea, reports excessive vomiting, reports some abdominal pain. Reports continued ongoing nausea NEUROLOGICAL: No headaches, no weakness, no numbness. PHYSICAL EXAMINATION: GENERAL: The patient is alert and oriented x3, not in any acute distress. Well developed, well nourished. Ill-appearing, thin built HEENT: Pupils are round and equally reacting to light. EOMI. No scleral icterus. No conjunctival pallor. Normocephalic, atraumatic. No pharyngeal erythema. No thyromegaly. CARDIOVASCULAR: S1 and S2 present. No murmurs, rubs, or gallops. PULMONARY: Chest is clear to auscultation, no wheezing or crackles. ABDOMEN: Soft, thin, nontender, nondistended, normoactive bowel sounds. No palpable organomegaly. MUSCULOSKELETAL: No joint swelling or deformity. EXTREMITIES: No cyanosis, clubbing, or pedal edema. NEUROLOGICAL: Gross neurological examination did not reveal any focal deficits. SKIN: No rashes. Assessment Intractable nausea without any vomiting or diarrhea, likely due to viral gastroenteritis History of paraesophageal hernia repair Leukocytosis reactive Hypovolemic hyponatremia Hypokalemia from poor oral intake Contraction alkalosis secondary to dehydration Hyperglycemia Hypercalcemia from dehydration Mild acute kidney injury, dehydrational History of asthma with no acute exacerbation Coronary artery disease Stroke with no residuals Gastroesophageal reflux disease Hypertension Hyperlipidemia History of rheumatoid arthritis History of dysphagia chronically with PEG tube insertion PEG tube has since been removed and an outpatient basis GI prophylaxis DVT prophylaxis Full code Plan: Continue normal saline at 75 mL/h, continue dysphagia diet pured per surgery and if continuing did not tolerate, recommend n.p.o. with occasional ice chips and sips of water Tentatively scheduled for EGD with dilatation on 08/05/2024 with general surgery Continue IV Protonix twice daily Supplement magnesium, phosphorous. And will follow-up on repeat labs Monitor electrolytes and renal function. The impression and plan of care has been dictated by Yanira Linda, Nurse Practitioner as directed. Dr. Cyndi MD I have performed a history and physical examination and medical decision making of this patient, discussed the same with the dictator, and agree with the dictators assessment and plan as written, documented as a scribe. Based on total visit time, I have performed more than 50% of this visit. Objective - Vital Signs Vital signs: Vital Signs Temp 99.5 F 08/03/24 07:41 Pulse 69 08/03/24 07:41 Resp 16 08/03/24 07:41 BP 133/82 08/03/24 07:41 Pulse Ox 96 08/03/24 07:41 FiO2 Intake & Output 08/02/24 08/03/24 08/03/24 18:59 06:59 18:59 Intake Total 358 118 Output Total 600 2 650 Balance -242 -2 -532 Intake: Oral 358 118 Output: Urine 600 2 650 Other: Voiding Method Toilet Toilet Urinal Urinal # Voids 1 2 - Labs CBC & Chem 7: 07/31/24 05:52 08/03/24 08:03 Labs: Abnormal Lab Results - Last 24 Hours (Table) 08/03/24 Range/Units 08:03 Sodium 134 L (137-145) mmol/L BUN 8 L (9-20) mg/dL Creatinine 0.55 L (0.66-1.25) mg/dL Glucose 100 H (74-99) mg/dL Calcium 7.9 L (8.4-10.2) mg/dL
[2024-08-04 09:56] LABS: Blood Urea Nitrogen 6.6 mg/dL (9.0-27.0); Chloride 103 mmol/L (96-109); Glucose 106 mg/dL (70-110); Potassium 3.8 mmol/L (3.5-5.5); Sodium 137 mmol/L (135-145)
[2024-08-04 09:57] LABS: Calcium 7.7 mg/dL (8.7-10.3); Carbon Dioxide 23.1 mmol/L (21.6-31.8); Magnesium 1.4 mg/dL (1.5-2.4)
[2024-08-04] MEDS: ACETAMINOPHEN TAB 325 MG TAB PO PRN (09:58)
--- NOTE | 2024-08-04 15:38 | P.PN ---
Subjective Progress Note Date: 08/04/24 CHIEF COMPLAINT: Dysphagia HISTORY OF PRESENT ILLNESS: The patient is a 68-year-old male with nausea and vomiting. Patient reports he is tolerating pured diet due to texture. No abdominal pain. Nursing did tell me he had some vomiting this morning. Globally, patient does report improvement. ROS: No fevers or chills. No new chest pain. PHYSICAL EXAM: VITAL SIGNS: Reviewed CONSTITUTIONAL: Well developed and in no acute distress. EYES: Conjuctivae without sclera icterus. Extraocular movements grossly intact. HEAD, EARS, NOSE, THROAT: Moist buccal mucosa. Head is atraumatic, normocepha lic. Hears conversational speech. No nasal drainage. Poor dentition. RESPIRATORY: Non-labored respirations and equal bilateral excursions. CARDIOVASCULAR: Palpable 2+ radial pulses. ABDOMEN: Nontender MUSCULOSKELETAL: No gross deformity of the lower extremities noted. No clubbing. No cyanosis. SKIN: Good skin turgor. Well perfused. NEUROLOGIC: Cranial nerves II through XII grossly intact. No focal or lateralizing signs. PSYCH: Appropriate affect. Alert and oriented to person, place and time. CLINICAL LABS: Reviewed. Magnesium low. RADIOLOGY: Upper GI from October 2023 reviewed demonstrating no hiatal hernia. Patient refused to drink any further contrast. This is my independent interpretation Upper GI reviewed November 2023 also demonstrated no hiatal hernia. Presence of reflux. Patient refused drinking further contrast. This is my independent interpretation CT abdomen pelvis reviewed July 2023 demonstrates no large paraesophageal hiatal hernia. REPORT: CT of the abdomen as before demonstrates distal thickening of the esophagus. ASSESSMENT: 1. Intractable nausea and vomiting 2. Dysphagia 3. Presbyesophagus PLAN: 1. Patient has been responding to dysphagia diet, pured. Recommend continue pured diet. 2. Multiple studies reviewed of CT scans including upper GI without definitive lower esophageal sphincter stricture. Additional outpatient workup may be advised including manometry. 3. As patient reports clinical improvement, continue dysphagia diet upon discharge. No acute surgical invention at this time. Do recommend outpatient follow-up Objective - Vital Signs Vital signs: Vital Signs Temp 97.8 F 08/04/24 14:00 Pulse 63 08/04/24 14:00 Resp 14 08/04/24 14:00 BP 99/69 08/04/24 14:00 Pulse Ox 100 03/02/25 14:00 FiO2 Intake & Output 08/03/24 08/04/24 08/04/24 18:59 06:59 18:59 Intake Total 118 222 Output Total 925 Balance -807 222 Intake: Oral 118 222 Output: Urine 925 Other: Voiding Method Toilet Toilet Toilet Urinal Urinal Urinal # Voids 1 - Labs CBC & Chem 7: 07/31/24 05:52 08/04/24 04:30 Labs: Abnormal Lab Results - Last 24 Hours (Table) 08/04/24 Range/Units 04:30 BUN 6.6 L (9.0-27.0) mg/dL BUN/Creatinine Ratio 11.00 L (12.00-20.00) Ratio Calcium 7.7 L (8.7-10.3) mg/dL Magnesium 1.4 L (1.5-2.4) mg/dL
[2024-08-04] MEDS ORDERED: guaiFENesin SYRUP 100MG/5ML 200 MG/10 ML CUP PO PRN (18:47)
--- NOTE | 2024-08-04 19:15 | XR ---
EXAMINATION TYPE: XR chest 1V portable DATE OF EXAM: 08/04/2024 7:03 PM COMPARISON: Prior chest radiograph 2023. CLINICAL INDICATION: Male, 68 years old with history of cough with sputum production; [facility] TECHNIQUE: XR chest 1V portable Frontal view of the chest. FINDINGS: Lungs/Pleura: There is no evidence of pleural effusion, focal consolidation, or pneumothorax. Pulmonary vascularity: Unremarkable. Heart/mediastinum: Cardiomediastinal silhouette is unremarkable. Musculoskeletal: No acute osseous pathology. Other findings: None IMPRESSION: No acute cardiopulmonary disease/process. [facility], , 08/04/2024 7:12 PM
--- NOTE | 2024-08-05 05:02 | P.PN ---
Subjective Progress Note Date: 08/04/24 This is a pleasant 68 year old male with medical history of asthma, coronary artery disease, stroke, gastroesophageal reflux disease, hypertension, hyperlipidemia, rheumatoid arthritis, prior smoking history and alcoholism. Patient comes in to the hospital with complaints of nausea on going over the last couple days. Denies any vomiting or diarrhea. He denies any fever or chills. He is not having any chest pain or shortness of breath. Patient states that his PEG tube has been removed on an outpatient basis and he is currently on oral food and drink by mouth. Abdominal pelvis CT reveals no hydronephrosis, no bowel obstruction no suspicious new findings seen to the constipation symptoms. Persistent surgical change of the diaphragmatic hiatus with wall thickening of the distal esophagus just proximal to this. Initial blood work reveals a white blood cell count of 21.2, sodium of 144 potassium 3.3, chloride 76 CO2 of 45, BUN of 33 creatinine 1.20 glucose of 187 calcium 11.9 serum alcohol less than 10. Patient was admitted to the hospital under internal medicine with clear liquid diet. He received a GI cocktail and was started on normal saline at 75 mL/h. 07/31/2024 Patient evaluated in follow up on the medical floor. Currently reporting continued constant nausea. He states he is not nauseas when he is not moving though. He has been continued on clear liquids. He vomited the clear liquid breakfast. No abdominal tenderness. White blood cell count 9.59, sodium 142, potassium 3.4. BUN 16.2, creatinine 0.9. Magnesium 1.8. 08/01/2024 Patient evaluated today in follow up resting in bed. He continues to report significant nausea and unable to tolerate much activity. Phosphorous level 1.3. 08/02/2024 Patient evaluated today resting in bed. He states he feels ok. He was trialed on regular diet states it caused him to throw up right away. Phosphorous level up to 3.4. 08/03/2024 Patient is seen in follow-up reporting an intense headache per nursing staff. Patient apparently has been vomiting over 10 times since last night and not tolerating much oral intake. Patient was evaluated by surgery although recommend reevaluation as patient is not tolerating any oral intake and is retching and heaving while having conversation. Patient will be placed on dysphagia diet per surgery and discussion of possible EGD with dilatation. Patient is afebrile and denies chest pain or shortness of breath. 08/04/2024 Patient is seen in follow-up today currently sitting up maintaining a pured diet. Patient not having much oral intake although is drinking some. Patient has had a few episodes of vomiting. Patient was evaluated by general surgery initially with plans of possible EGD with dilatation although recommending continuing a pured diet and maybe outpatient follow-up with manometry and has cleared the patient for discharge. Patient not tolerating much oral intake and will monitor overnight and discuss further with surgery regarding treatment plan moving forward. REVIEW OF SYSTEMS: CONSTITUTIONAL: No fever, no malaise, no fatigue. HEENT: No recent visual problems or hearing problems. Denied any sore throat. CARDIOVASCULAR: No chest pain, orthopnea, PND, no palpitations, no syncope. PULMONARY: No shortness of breath, no cough, no hemoptysis. GASTROINTESTINAL: No diarrhea, reports ongoing vomiting, reports some abdominal pain. Reports continued ongoing nausea, minimally improved today NEUROLOGICAL: No headaches, no weakness, no numbness. PHYSICAL EXAMINATION: GENERAL: The patient is alert and oriented x3, sitting up today. Well developed, elderly appearing, unkempt. Ill-appearing, thin built HEENT: Pupils are round and equally reacting to light. EOMI. No scleral icterus. No conjunctival pallor. Normocephalic, atraumatic. No pharyngeal erythema. No thyromegaly. CARDIOVASCULAR: S1 and S2 present. No murmurs, rubs, or gallops. PULMONARY: Chest is clear to auscultation, no wheezing or crackles. ABDOMEN: Soft, thin, nontender, nondistended, normoactive bowel sounds. No palpable organomegaly. MUSCULOSKELETAL: No joint swelling or deformity. EXTREMITIES: No cyanosis, clubbing, or pedal edema. NEUROLOGICAL: Gross neurological examination did not reveal any focal deficits. SKIN: No rashes. Assessment Intractable nausea without any vomiting or diarrhea, likely due to viral gastroenteritis History of paraesophageal hernia repair Leukocytosis reactive Hypovolemic hyponatremia Hypokalemia from poor oral intake Contraction alkalosis secondary to dehydration Hyperglycemia Hypercalcemia from dehydration Mild acute kidney injury, dehydrational History of asthma with no acute exacerbation Coronary artery disease Stroke with no residuals Gastroesophageal reflux disease Hypertension Hyperlipidemia History of rheumatoid arthritis History of dysphagia chronically with PEG tube insertion PEG tube has since been removed and an outpatient basis GI prophylaxis DVT prophylaxis Full code Plan: Continue normal saline at 75 mL/h, continue dysphagia diet pured per surgery Patient was tentatively scheduled for EGD with dilatation on 08/05/[address] Booth although has been canceled and will discuss further with general surgery regarding treatment plan as patient continues to be nauseated with frequent episodes of vomiting and retching. Continue IV Protonix twice daily Supplement magnesium, phosphorous. And will follow-up on repeat labs Monitor electrolytes and renal function. The impression and plan of care has been dictated by Yanira Linda, Nurse Practitioner as directed. Dr. Cyndi MD I have performed a history and physical examination and medical decision making of this patient, discussed the same with the dictator, and agree with the dictators assessment and plan as written, documented as a scribe. Based on total visit time, I have performed more than 50% of this visit. Objective - Vital Signs Vital signs: Vital Signs Temp 97.6 F 08/04/24 08:00 Pulse 82 08/04/24 08:00 Resp 18 08/04/24 08:00 BP 136/86 08/04/24 08:00 Pulse Ox 96 08/04/24 08:00 FiO2 Intake & Output 08/03/24 08/04/24 08/04/24 18:59 06:59 18:59 Intake Total 118 Output Total 925 Balance -807 Intake: Oral 118 Output: Urine 925 Other: Voiding Method Toilet Toilet Urinal Urinal # Voids 1 - Labs CBC & Chem 7: 07/31/24 05:52 08/04/24 04:30
[2024-08-05 08:18] LABS: Basophils # (A) 0.01 X 10*3/uL (0.00-0.10); Basophils % (A) 0.1 %; Eosinophils # (A) 0.01 X 10*3/uL (0.04-0.35); Eosinophils % (A) 0.1 %; HCT 38.2 % (39.6-50.0); HGB 12.4 g/dL (13.0-17.0); Lymphocytes # (A) 0.69 X 10*3/uL (0.90-5.00); Lymphocytes % (A) 8.5 %; MCH 28.9 pg (27.0-32.0); MCHC 32.5 g/dL (32.0-37.0); Mean Platelet Volume 12.1 FL (9.5-12.2); Monocytes % (A) 4.9 %; NRBC Per 100 WBC 0 X 10*3/uL (0.00-0.01); Neutrophils # (A) 6.93 X 10*3/uL (1.80-7.70); Neutrophils % (A) 85.8 %; Platelet Count 180 X 10*3/uL (140-440); RBC 4.29 X 10*6/uL (4.40-5.60); RDW 16.8 % (11.5-14.5); WBC 8.09 X 10*3/uL (4.50-10.00)
[2024-08-05 08:36] LABS: ALT 15 U/L (10-49); AST 18 U/L (14-35); Alkaline Phosphatase 79 U/L (41-126); Blood Urea Nitrogen 7.8 mg/dL (9.0-27.0); Calcium 7.7 mg/dL (8.7-10.3); Chloride 104 mmol/L (96-109); Glucose 104 mg/dL (70-110); Sodium 138 mmol/L (135-145); Total Bilirubin 0.3 mg/dL (0.3-1.2)
[2024-08-05] MEDS: MAGNESIUM SULFATE-D5W PMX 1 GM in DEXTROSE/WATER 1 100ML.BAG IVPB SCH (09:09)
--- NOTE | 2024-08-05 12:47 | P.PN ---
Subjective Progress Note Date: 08/05/24 SURGICAL PROGRESS NOTE CHIEF COMPLAINT: Nausea and vomiting HISTORY OF PRESENT ILLNESS: Patient continues to have nausea and vomiting. He is able to eat very small amounts of the pured diet. Afebrile. WBC is 8.09 Hgb 12.4 platelets 180 sodium is 130 potassium is 4.0 creatinine 0.6 magnesium 1.4 as of yesterday Patient seen and examined with Dr. Pavon PHYSICAL EXAM: VITAL SIGNS: Reviewed. GENERAL: Well-developed in no acute distress. ABDOMEN: Soft. Nondistended. NEUROLOGIC: Alert and oriented. Cranial nerves II through XII grossly intact. ASSESSMENT: 1. Recurrent nausea and vomiting 2. Chronic dysphagia 3. History of hiatal hernia repair with mesh in September 2023 4. Prior history of PEG tube placement and removal 5. Presbyesophagus PLAN: -Patient scheduled for upper GI today -Consult dietitian for a 72-hour calorie count -Patient tentatively scheduled for PEG tube placement on with Dr. Pavon depending on calorie count results -Continue to correct low magnesium Physician Building Materials Sales Attendant note has been reviewed by physician. Signing provider agrees with the documented findings, assessment, and plan of care. Objective - Vital Signs Vital signs: Vital Signs Temp 98.3 F 08/05/24 08:00 Pulse 87 08/05/24 08:00 Resp 16 08/05/24 08:00 BP 137/86 08/05/24 08:00 Pulse Ox 96 08/05/24 08:00 FiO2 Intake & Output 08/04/24 08/05/24 08/05/24 18:59 06:59 18:59 Intake Total 222 Balance 222 Intake: Oral 222 Other: Voiding Method Toilet Toilet Toilet Urinal Urinal Urinal # Voids 3 3 - Labs CBC & Chem 7: 08/05/24 04:47 08/05/24 04:47 Labs: Abnormal Lab Results - Last 24 Hours (Table) 08/05/24 08/05/24 Range/Units 04:47 04:47 RBC 4.29 L (4.40-5.60) X 10*6/uL Hgb 12.4 L (13.0-17.0) g/dL Hct 38.2 L (39.6-50.0) % RDW 16.8 H (11.5-14.5) % Immature Gran # 0.05 H (0.00-0.04) X 10*3/uL Lymphocytes # 0.69 L (0.90-5.00) X 10*3/uL Eosinophils # 0.01 L (0.04-0.35) X 10*3/uL BUN 7.8 L (9.0-27.0) mg/dL Calcium 7.7 L (8.7-10.3) mg/dL Total Protein 5.0 L (6.2-8.2) g/dL Albumin 3.0 L (3.8-4.9) g/dL Albumin/Globulin Ratio 1.50 L (1.60-3.17) Ratio
--- NOTE | 2024-08-05 15:59 | FL ---
EXAMINATION TYPE: FL UGI w esophagus DATE OF EXAM: 08/05/2024 COMPARISON: Correlation CT 07/29/2024 CLINICAL INDICATION: Male, 68 years old with history of nausea, vomiting, dysphagia; [facility], TECHNIQUE: Double contrast was attempted but the patient had repeated episodes of emesis following th e effervescent granules. Subsequently, a single contrast exam is performed with thin barium. A total of 3 minutes 24 seconds of fluoroscopic time was utilized during procedure and 53 images obta ined. Total dose area product (DAP) in uGy*m?, mGy*cm? (or similar): 450 mGycm2. FINDINGS: Cervical spine shows mild vallecular and piriform sinus residuals. There is prominent ante rior endplate spondylosis C4-C5 mildly impressing along the back wall of the cervical esophagus. Limited detailed assessment of the mucosa due to utilization of single contrast. There is slight shou ldering and a mild caliber change from the level of the distal third thoracic esophagus to the GE judson ction. Moderate tertiary peristaltic contractions are noted. Later images show persistent small focus of poo ling within the mid thoracic esophagus. Very limited assessment of the stomach and duodenum due to nondistention. Unable to exclude underlyin g diffuse fold thickening. No obvious stricture is seen. Mild to moderate gastroesophageal reflux dem onstrated. IMPRESSION: 1. Very limited assessment. Patient had repeated episodes of emesis after the effervescent granules. Thin contrast had to be utilized. 2. There is a mild stricture involving the distal third thoracic esophagus which could be due to esop hagitis or neoplasm. Direct visualization recommended. 3. Possible tiny diverticulum versus focal ulcer within the mid thoracic esophagus on some of the lat er images. 4. Query previous [place] fundoplication. We note mild to moderate gastroesophageal reflux. 5. Suboptimal assessment of the stomach and duodenum due to lack of air contrast. Unable to exclude d iffuse fold thickening/gastritis. This can also be assessed with direct visualization. [facility], , 08/05/2024 3:57 PM
[2024-08-05 19:13] VITALS: BMI 22.8
--- NOTE | 2024-08-06 06:37 | P.PN ---
Subjective Progress Note Date: 08/05/24 This is a pleasant 68 year old male with medical history of asthma, coronary artery disease, stroke, gastroesophageal reflux disease, hypertension, hyperlipidemia, rheumatoid arthritis, prior smoking history and alcoholism. Patient comes in to the hospital with complaints of nausea on going over the last couple days. Denies any vomiting or diarrhea. He denies any fever or chills. He is not having any chest pain or shortness of breath. Patient states that his PEG tube has been removed on an outpatient basis and he is currently on oral food and drink by mouth. Abdominal pelvis CT reveals no hydronephrosis, no bowel obstruction no suspicious new findings seen to the constipation symptoms. Persistent surgical change of the diaphragmatic hiatus with wall thickening of the distal esophagus just proximal to this. Initial blood work reveals a white blood cell count of 21.2, sodium of 144 potassium 3.3, chloride 76 CO2 of 45, BUN of 33 creatinine 1.20 glucose of 187 calcium 11.9 serum alcohol less than 10. Patient was admitted to the hospital under internal medicine with clear liquid diet. He received a GI cocktail and was started on normal saline at 75 mL/h. 07/31/2024 Patient evaluated in follow up on the medical floor. Currently reporting continued constant nausea. He states he is not nauseas when he is not moving though. He has been continued on clear liquids. He vomited the clear liquid breakfast. No abdominal tenderness. White blood cell count 9.59, sodium 142, potassium 3.4. BUN 16.2, creatinine 0.9. Magnesium 1.8. 08/01/2024 Patient evaluated today in follow up resting in bed. He continues to report significant nausea and unable to tolerate much activity. Phosphorous level 1.3. 08/02/2024 Patient evaluated today resting in bed. He states he feels ok. He was trialed on regular diet states it caused him to throw up right away. Phosphorous level up to 3.4. 08/03/2024 Patient is seen in follow-up reporting an intense headache per nursing staff. Patient apparently has been vomiting over 10 times since last night and not tolerating much oral intake. Patient was evaluated by surgery although recommend reevaluation as patient is not tolerating any oral intake and is retching and heaving while having conversation. Patient will be placed on dysphagia diet per surgery and discussion of possible EGD with dilatation. Patient is afebrile and denies chest pain or shortness of breath. 08/04/2024 Patient is seen in follow-up today currently sitting up maintaining a pured diet. Patient not having much oral intake although is drinking some. Patient has had a few episodes of vomiting. Patient was evaluated by general surgery initially with plans of possible EGD with dilatation although recommending continuing a pured diet and maybe outpatient follow-up with manometry and has cleared the patient for discharge. Patient not tolerating much oral intake and will monitor overnight and discuss further with surgery regarding treatment plan moving forward. 08/05/2024 Patient is eval today in follow-up resting in bed he continues to report significant nausea and vomiting after eating. Plan is for a 72-hour calorie count. Patient underwent upper GI with findings of repeated emesis after the effervescent granules. Thing contrast had to be utilized. There is a mild stricture involving the distal third thoracic esophagus which could be due to esophagitis or neoplasm. Direct visualization recommended. There is possible tiny diverticulum versus focal ulcer within the mid thoracic esophagus on some of the later images. A query previous Niesen fundoplication. There is mild to moderate gastroesophageal reflux. Suboptimal assessment the stomach and the duodenum due to lack of air contrast. Unable to exclude diffuse fold thickening/gastritis this can also be assessed with direct visualization. Again the plan remains for a possible PEG tube placement on Monday. REVIEW OF SYSTEMS: CONSTITUTIONAL: No fever, no malaise, no fatigue. HEENT: No recent visual problems or hearing problems. Denied any sore throat. CARDIOVASCULAR: No chest pain, orthopnea, PND, no palpitations, no syncope. PULMONARY: No shortness of breath, no cough, no hemoptysis. GASTROINTESTINAL: No diarrhea, reports ongoing vomiting, reports some abdominal pain. Reports continued ongoing nausea, minimally improved today NEUROLOGICAL: No headaches, no weakness, no numbness. PHYSICAL EXAMINATION: GENERAL: The patient is alert and oriented x3, sitting up today. Well developed, elderly appearing, unkempt. Ill-appearing, thin built HEENT: Pupils are round and equally reacting to light. EOMI. No scleral icterus. No conjunctival pallor. Normocephalic, atraumatic. No pharyngeal erythema. No thyromegaly. CARDIOVASCULAR: S1 and S2 present. No murmurs, rubs, or gallops. PULMONARY: Chest is clear to auscultation, no wheezing or crackles. ABDOMEN: Soft, thin, nontender, nondistended, normoactive bowel sounds. No palpable organomegaly. MUSCULOSKELETAL: No joint swelling or deformity. EXTREMITIES: No cyanosis, clubbing, or pedal edema. NEUROLOGICAL: Gross neurological examination did not reveal any focal deficits. SKIN: No rashes. Assessment Intractable nausea with multiple episodes of nausea likely due to esophagitis and gastritis. History of paraesophageal hernia repair Leukocytosis reactive Hypovolemic hyponatremia Hypokalemia from poor oral intake Contraction alkalosis secondary to dehydration Hyperglycemia Hypercalcemia from dehydration Mild acute kidney injury, dehydrational History of asthma with no acute exacerbation Coronary artery disease Stroke with no residuals Gastroesophageal reflux disease Hypertension Hyperlipidemia History of rheumatoid arthritis History of dysphagia chronically with PEG tube insertion PEG tube has since been removed and an outpatient basis GI prophylaxis DVT prophylaxis Full code Plan: Continue normal saline at 75 mL/h, continue dysphagia diet pured per surgery Continue IV Protonix twice daily Supplement magnesium, phosphorous. And will follow-up on repeat labs Continue 72-hour calorie count General Surgery following and possible PEG tube placement on Monday Monitor electrolytes and renal function. The impression and plan of care has been dictated by Desiree Clarke, Nurse Practitioner as directed. Dr. Cyndi MD I have performed a history and physical examination and medical decision making of this patient, discussed the same with the dictator, and agree with the dictators assessment and plan as written, documented as a scribe. Based on total visit time, I have performed more than 50% of this visit. Objective - Vital Signs Vital signs: Vital Signs Temp 98.3 F 08/05/24 08:00 Pulse 87 08/05/24 08:00 Resp 16 08/05/24 08:00 BP 137/86 08/05/24 08:00 Pulse Ox 96 08/05/24 08:00 FiO2 Intake & Output 08/04/24 08/05/24 08/05/24 18:59 06:59 18:59 Intake Total 222 354 Balance 222 354 Intake: Oral 222 354 Other: Voiding Method Toilet Toilet Toilet Urinal Urinal Urinal # Voids 3 3 - Labs CBC & Chem 7: 08/05/24 04:47 08/05/24 04:47 Labs: Abnormal Lab Results - Last 24 Hours (Table) 03/03/25 03/03/25 Range/Units 04:47 04:47 RBC 4.29 L (4.40-5.60) X 10*6/uL Hgb 12.4 L (13.0-17.0) g/dL Hct 38.2 L (39.6-50.0) % RDW 16.8 H (11.5-14.5) % Immature Gran # 0.05 H (0.00-0.04) X 10*3/uL Lymphocytes # 0.69 L (0.90-5.00) X 10*3/uL Eosinophils # 0.01 L (0.04-0.35) X 10*3/uL BUN 7.8 L (9.0-27.0) mg/dL Calcium 7.7 L (8.7-10.3) mg/dL Total Protein 5.0 L (6.2-8.2) g/dL Albumin 3.0 L (3.8-4.9) g/dL Albumin/Globulin Ratio 1.50 L (1.60-3.17) Ratio Assessment and Plan Time with Patient: Less than 30
[2024-08-06] MEDS: PROCHLORPERAZINE INJ 10 MG/2 ML VIAL IVP PRN (10:07)
--- NOTE | 2024-08-06 11:17 | P.PN ---
Subjective Progress Note Date: 08/06/24 SURGICAL PROGRESS NOTE CHIEF COMPLAINT: Nausea and vomiting HISTORY OF PRESENT ILLNESS: Patient continues to have nausea and vomiting. Upper GI reports limited assessment. Patient repeated episodes of emesis. There is mild stricture involving the distal third thoracic esophagus which could be due to esophagitis or neoplasm. Possible tiny diverticulum versus focal ulcer within the mid thoracic esophagus. Previous Niesen fundal location. Mild to moderate GERD. Suboptimal assessment of the stomach and duodenum due to lack of air contrast. Unable to exclude diffuse fold thickening/gastritis. Direct visualization recommended. Also noted prominent anterior endplate spondylosis C4-C5 mildly impressing along the back wall of the cervical esophagus. afebrile. WBC 8.09 Hgb 12.4 PHYSICAL EXAM: VITAL SIGNS: Reviewed. GENERAL: Well-developed in no acute distress. ABDOMEN: Soft. Nondistended. NEUROLOGIC: Alert and oriented. Cranial nerves II through XII grossly intact. ASSESSMENT: 1. Recurrent nausea and vomiting. Upper GI reporting a mild stricture involving the distal third thoracic esophagus which could be due to esophagitis or neoplasm. Possible ulcer within the mid thoracic esophagus. 2. Chronic dysphagia 3. History of hiatal hernia repair with mesh in September 2023 4. Prior history of PEG tube placement and removal 5. Presbyesophagus 6. Hypomagnesemia PLAN: -Patient scheduled for EGD with possible dilation on with Dr. Pavon due to esophageal stricture and possible ulcer -No plans for PEG tube placement at this time -Continue IV Protonix bid -Continue antiemetics. Compazine added Physician Architectural Wood Model Maker note has been reviewed by physician. Signing provider agrees with the documented findings, assessment, and plan of care. Objective - Vital Signs Vital signs: Vital Signs Temp 98.1 F 08/06/24 07:45 Pulse 91 08/06/24 07:45 Resp 17 08/06/24 07:45 BP 162/105 08/06/24 07:45 Pulse Ox 97 08/06/24 07:45 FiO2 Intake & Output 08/05/24 08/06/24 08/06/24 18:59 06:59 18:59 Intake Total 354 118 Balance 354 118 Weight 68.039 kg Intake: Oral 354 118 Other: Voiding Method Toilet Toilet Toilet Urinal Urinal Urinal # Voids 2 3 - Labs CBC & Chem 7: 08/05/24 04:47 08/05/24 04:47
--- NOTE | 2024-08-06 17:34 | P.PN ---
Subjective Progress Note Date: 08/06/24 This is a pleasant 68 year old male with medical history of asthma, coronary artery disease, stroke, gastroesophageal reflux disease, hypertension, hyperlipidemia, rheumatoid arthritis, prior smoking history and alcoholism. Patient comes in to the hospital with complaints of nausea on going over the last couple days. Denies any vomiting or diarrhea. He denies any fever or chills. He is not having any chest pain or shortness of breath. Patient states that his PEG tube has been removed on an outpatient basis and he is currently on oral food and drink by mouth. Abdominal pelvis CT reveals no hydronephrosis, no bowel obstruction no suspicious new findings seen to the constipation symptoms. Persistent surgical change of the diaphragmatic hiatus with wall thickening of the distal esophagus just proximal to this. Initial blood work reveals a white blood cell count of 21.2, sodium of 144 potassium 3.3, chloride 76 CO2 of 45, BUN of 33 creatinine 1.20 glucose of 187 calcium 11.9 serum alcohol less than 10. Patient was admitted to the hospital under internal medicine with clear liquid diet. He received a GI cocktail and was started on normal saline at 75 mL/h. 07/31/2024 Patient evaluated in follow up on the medical floor. Currently reporting continued constant nausea. He states he is not nauseas when he is not moving though. He has been continued on clear liquids. He vomited the clear liquid breakfast. No abdominal tenderness. White blood cell count 9.59, sodium 142, potassium 3.4. BUN 16.2, creatinine 0.9. Magnesium 1.8. 08/01/2024 Patient evaluated today in follow up resting in bed. He continues to report significant nausea and unable to tolerate much activity. Phosphorous level 1.3. 08/02/2024 Patient evaluated today resting in bed. He states he feels ok. He was trialed on regular diet states it caused him to throw up right away. Phosphorous level up to 3.4. 08/03/2024 Patient is seen in follow-up reporting an intense headache per nursing staff. Patient apparently has been vomiting over 10 times since last night and not tolerating much oral intake. Patient was evaluated by surgery although recommend reevaluation as patient is not tolerating any oral intake and is retching and heaving while having conversation. Patient will be placed on dysphagia diet per surgery and discussion of possible EGD with dilatation. Patient is afebrile and denies chest pain or shortness of breath. 08/04/2024 Patient is seen in follow-up today currently sitting up maintaining a pured diet. Patient not having much oral intake although is drinking some. Patient has had a few episodes of vomiting. Patient was evaluated by general surgery initially with plans of possible EGD with dilatation although recommending continuing a pured diet and maybe outpatient follow-up with manometry and has cleared the patient for discharge. Patient not tolerating much oral intake and will monitor overnight and discuss further with surgery regarding treatment plan moving forward. 08/05/2024 Patient is eval today in follow-up resting in bed he continues to report significant nausea and vomiting after eating. Plan is for a 72-hour calorie count. Patient underwent upper GI with findings of repeated emesis after the effervescent granules. Thing contrast had to be utilized. There is a mild stricture involving the distal third thoracic esophagus which could be due to esophagitis or neoplasm. Direct visualization recommended. There is possible tiny diverticulum versus focal ulcer within the mid thoracic esophagus on some of the later images. A query previous Niesen fundoplication. There is mild to moderate gastroesophageal reflux. Suboptimal assessment the stomach and the duodenum due to lack of air contrast. Unable to exclude diffuse fold thickening/gastritis this can also be assessed with direct visualization. Again the plan remains for a possible PEG tube placement on Monday. 08/06/2024 Patient evaluated today resting in bed. Continues with significant episodes of emesis and not able to keep any nutrition down. Calorie counts in progress. He will be going for EGD with dilation on . REVIEW OF SYSTEMS: CONSTITUTIONAL: No fever, no malaise, no fatigue. HEENT: No recent visual problems or hearing problems. Denied any sore throat. CARDIOVASCULAR: No chest pain, orthopnea, PND, no palpitations, no syncope. PULMONARY: No shortness of breath, no cough, no hemoptysis. GASTROINTESTINAL: No diarrhea, reports ongoing vomiting, reports some abdominal pain. Reports continued ongoing nausea, minimally improved today NEUROLOGICAL: No headaches, no weakness, no numbness. PHYSICAL EXAMINATION: GENERAL: The patient is alert and oriented x3, sitting up today. Well developed, elderly appearing, unkempt. Ill-appearing, thin built HEENT: Pupils are round and equally reacting to light. EOMI. No scleral icterus. No conjunctival pallor. Normocephalic, atraumatic. No pharyngeal erythema. No thyromegaly. CARDIOVASCULAR: S1 and S2 present. No murmurs, rubs, or gallops. PULMONARY: Chest is clear to auscultation, no wheezing or crackles. ABDOMEN: Soft, thin, nontender, nondistended, normoactive bowel sounds. No palpable organomegaly. MUSCULOSKELETAL: No joint swelling or deformity. EXTREMITIES: No cyanosis, clubbing, or pedal edema. NEUROLOGICAL: Gross neurological examination did not reveal any focal deficits. SKIN: No rashes. Assessment Intractable nausea with multiple episodes of nausea likely due to esophagitis and gastritis. Esophageal stricture noted on EGD History of paraesophageal hernia repair Leukocytosis reactive Hypovolemic hyponatremia Hypokalemia from poor oral intake Contraction alkalosis secondary to dehydration Hyperglycemia Hypercalcemia from dehydration Mild acute kidney injury, dehydrational History of asthma with no acute exacerbation Coronary artery disease Stroke with no residuals Gastroesophageal reflux disease Hypertension Hyperlipidemia History of rheumatoid arthritis History of dysphagia chronically with PEG tube insertion PEG tube has since been removed and an outpatient basis GI prophylaxis DVT prophylaxis Full code Plan: Continue normal saline at 75 mL/h, continue dysphagia diet pured per surgery Continue IV Protonix twice daily Supplement magnesium, phosphorous. And will follow-up on repeat labs Continue 72-hour calorie count General Surgery following and planning for EGD with dilation Monitor electrolytes and renal function. The impression and plan of care has been dictated by Desiree Clarke, Nurse Practitioner as directed. Dr. Cyndi MD I have performed a history and physical examination and medical decision making of this patient, discussed the same with the dictator, and agree with the dictators assessment and plan as written, documented as a scribe. Based on total visit time, I have performed more than 50% of this visit. Objective - Vital Signs Vital signs: Vital Signs Temp 98.4 F 08/06/24 14:00 Pulse 67 08/06/24 14:00 Resp 17 08/06/24 14:00 BP 97/60 08/06/24 14:00 Pulse Ox 98 08/06/24 14:00 FiO2 Intake & Output 08/05/24 08/06/24 08/06/24 18:59 06:59 18:59 Intake Total 354 118 Balance 354 118 Weight 68.039 kg Intake: Oral 354 118 Other: Voiding Method Toilet Toilet Toilet Urinal Urinal Urinal # Voids 2 3 - Labs CBC & Chem 7: 08/05/24 04:47 08/05/24 04:47 Assessment and Plan Time with Patient: Less than 30
[2024-08-07] MEDS: HYDROmorphone 1 MG/ML 1 ML SYRINGE IVP PRN (00:05)
--- NOTE | 2024-08-07 10:40 | P.PN ---
Subjective Progress Note Date: 08/07/24 SURGICAL PROGRESS NOTE CHIEF COMPLAINT: Nausea and vomiting HISTORY OF PRESENT ILLNESS: Patient continues to have nausea and vomiting. Upper GI reports limited assessment. Patient repeated episodes of emesis. There is mild stricture involving the distal third thoracic esophagus which could be due to esophagitis or neoplasm. Possible tiny diverticulum versus focal ulcer within the mid thoracic esophagus. Previous Niesen fundal location. Mild to moderate GERD. Suboptimal assessment of the stomach and duodenum due to lack of air contrast. Unable to exclude diffuse fold thickening/gastritis. Direct visualization recommended. Patient has a cough this morning. Magnesium 2.0 afebrile. PHYSICAL EXAM: VITAL SIGNS: Reviewed. GENERAL: Well-developed in no acute distress. ABDOMEN: Soft. Nondistended. NEUROLOGIC: Alert and oriented. Cranial nerves II through XII grossly intact. ASSESSMENT: 1. Recurrent nausea and vomiting. Upper GI reporting a mild stricture involving the distal third thoracic esophagus which could be due to esophagitis or neoplasm. Possible ulcer within the mid thoracic esophagus. 2. Chronic dysphagia 3. History of hiatal hernia repair with mesh in September 2023 4. Prior history of PEG tube placement and removal 5. Presbyesophagus 6. Hypomagnesemia improved PLAN: -Patient scheduled for EGD with possible dilation on with Dr. Pavon due to esophageal stricture -No plans for PEG tube placement at this time -Continue IV Protonix bid -Continue antiemetics Physician Repairer Typewriter note has been reviewed by physician. Signing provider agrees with the documented findings, assessment, and plan of care. Objective - Vital Signs Vital signs: Vital Signs Temp 98.0 F 08/07/24 07:20 Pulse 98 08/07/24 07:20 Resp 17 08/07/24 07:20 BP 166/101 08/07/24 07:20 Pulse Ox 97 08/07/24 07:20 FiO2 Intake & Output 08/06/24 08/07/24 08/07/24 18:59 06:59 18:59 Intake Total 118 Output Total 200 Balance -82 Intake: Oral 118 Output: Urine 200 Other: Voiding Method Toilet Urinal Urinal Urinal - Labs CBC & Chem 7: 08/05/24 04:47 08/05/24 04:47
--- NOTE | 2024-08-07 11:37 | XR ---
EXAMINATION TYPE: XR chest 2V DATE OF EXAM: 08/07/2024 11:18 AM COMPARISON: Chest radiographs from 08/04/2024 CLINICAL INDICATION: Male, 68 years old with history of Cough, aspiration; [facility] TECHNIQUE: XR chest 2V Frontal and lateral views of the chest. FINDINGS: Lungs/Pleura: There is flattening of the diaphragm with increased lucency of the lungs. No evidence o f pneumothorax, pleural effusion or focal consolidation. Pulmonary vascularity: Unremarkable. Heart/mediastinum: Cardiomediastinal silhouette is unremarkable. Musculoskeletal: No acute osseous pathology. Other findings: None IMPRESSION: 1. No acute cardiopulmonary disease process. 2. COPD changes. [facility], , 08/07/2024 11:35 AM
[2024-08-07 15:58] LABS: BUN/Creat Ratio 16.67 Ratio (12.00-20.00); Calcium 8.2 mg/dL (8.7-10.3); Carbon Dioxide 25.6 mmol/L (21.6-31.8); Chloride 102 mmol/L (96-109); Glucose 105 mg/dL (70-110); Potassium 3.6 mmol/L (3.5-5.5); Sodium 141 mmol/L (135-145)
--- NOTE | 2024-08-07 21:06 | P.PN ---
Subjective Progress Note Date: 08/07/24 This is a pleasant 68 year old male with medical history of asthma, coronary artery disease, stroke, gastroesophageal reflux disease, hypertension, hyperlipidemia, rheumatoid arthritis, prior smoking history and alcoholism. Patient comes in to the hospital with complaints of nausea on going over the last couple days. Denies any vomiting or diarrhea. He denies any fever or chills. He is not having any chest pain or shortness of breath. Patient states that his PEG tube has been removed on an outpatient basis and he is currently on oral food and drink by mouth. Abdominal pelvis CT reveals no hydronephrosis, no bowel obstruction no suspicious new findings seen to the constipation symptoms. Persistent surgical change of the diaphragmatic hiatus with wall thickening of the distal esophagus just proximal to this. Initial blood work reveals a white blood cell count of 21.2, sodium of 144 potassium 3.3, chloride 76 CO2 of 45, BUN of 33 creatinine 1.20 glucose of 187 calcium 11.9 serum alcohol less than 10. Patient was admitted to the hospital under internal medicine with clear liquid diet. He received a GI cocktail and was started on normal saline at 75 mL/h. 07/31/2024 Patient evaluated in follow up on the medical floor. Currently reporting continued constant nausea. He states he is not nauseas when he is not moving though. He has been continued on clear liquids. He vomited the clear liquid breakfast. No abdominal tenderness. White blood cell count 9.59, sodium 142, potassium 3.4. BUN 16.2, creatinine 0.9. Magnesium 1.8. 08/01/2024 Patient evaluated today in follow up resting in bed. He continues to report significant nausea and unable to tolerate much activity. Phosphorous level 1.3. 08/02/2024 Patient evaluated today resting in bed. He states he feels ok. He was trialed on regular diet states it caused him to throw up right away. Phosphorous level up to 3.4. 08/03/2024 Patient is seen in follow-up reporting an intense headache per nursing staff. Patient apparently has been vomiting over 10 times since last night and not tolerating much oral intake. Patient was evaluated by surgery although recommend reevaluation as patient is not tolerating any oral intake and is retching and heaving while having conversation. Patient will be placed on dysphagia diet per surgery and discussion of possible EGD with dilatation. Patient is afebrile and denies chest pain or shortness of breath. 08/04/2024 Patient is seen in follow-up today currently sitting up maintaining a pured diet. Patient not having much oral intake although is drinking some. Patient has had a few episodes of vomiting. Patient was evaluated by general surgery initially with plans of possible EGD with dilatation although recommending continuing a pured diet and maybe outpatient follow-up with manometry and has cleared the patient for discharge. Patient not tolerating much oral intake and will monitor overnight and discuss further with surgery regarding treatment plan moving forward. 08/05/2024 Patient is eval today in follow-up resting in bed he continues to report significant nausea and vomiting after eating. Plan is for a 72-hour calorie count. Patient underwent upper GI with findings of repeated emesis after the effervescent granules. Thing contrast had to be utilized. There is a mild stricture involving the distal third thoracic esophagus which could be due to esophagitis or neoplasm. Direct visualization recommended. There is possible tiny diverticulum versus focal ulcer within the mid thoracic esophagus on some of the later images. A query previous Niesen fundoplication. There is mild to moderate gastroesophageal reflux. Suboptimal assessment the stomach and the duodenum due to lack of air contrast. Unable to exclude diffuse fold thickening/gastritis this can also be assessed with direct visualization. Again the plan remains for a possible PEG tube placement on Monday. 08/06/2024 Patient evaluated today resting in bed. Continues with significant episodes of emesis and not able to keep any nutrition down. Calorie counts in progress. He will be going for EGD with dilation on . 08/07/2024 Patient is evaluated in follow up resting in bed. Continues to dry heave even with slight movement. He has been mostly bed rest since admission. He has es sentially no oral intake as he continues to vomit after oral intake. He will be going for EGD and dilation tomorrow with Dr. Pavon. He is reporting a cough with clear sputum production. Chest xray reveals no acute cardiopulmonary disease process; COPD changes. Labs today reveal sodium 141, potassium 3.6, BUN 10.0, creatinine 0.6. REVIEW OF SYSTEMS: CONSTITUTIONAL: No fever, no malaise, no fatigue. HEENT: No recent visual problems or hearing problems. Denied any sore throat. CARDIOVASCULAR: No chest pain, orthopnea, PND, no palpitations, no syncope. PULMONARY: No shortness of breath, no cough, no hemoptysis. GASTROINTESTINAL: No diarrhea, reports ongoing vomiting, reports some abdominal pain. Reports continued ongoing nausea, minimally improved today NEUROLOGICAL: No headaches, no weakness, no numbness. PHYSICAL EXAMINATION: GENERAL: The patient is alert and oriented x3, sitting up today. Well developed, elderly appearing, unkempt. Ill-appearing, thin built HEENT: Pupils are round and equally reacting to light. EOMI. No scleral icterus. No conjunctival pallor. Normocephalic, atraumatic. No pharyngeal erythema. No thyromegaly. CARDIOVASCULAR: S1 and S2 present. No murmurs, rubs, or gallops. PULMONARY: Chest is clear to auscultation, no wheezing or crackles. ABDOMEN: Soft, thin, nontender, nondistended, normoactive bowel sounds. No palpable organomegaly. MUSCULOSKELETAL: No joint swelling or deformity. EXTREMITIES: No cyanosis, clubbing, or pedal edema. NEUROLOGICAL: Gross neurological examination did not reveal any focal deficits. SKIN: No rashes. Assessment Intractable nausea with multiple episodes of nausea likely due to esophagitis and gastritis. Esophageal stricture noted on EGD History of paraesophageal hernia repair Leukocytosis reactive Hypovolemic hyponatremia Hypokalemia from poor oral intake Contraction alkalosis secondary to dehydration Hyperglycemia Hypercalcemia from dehydration Mild acute kidney injury, dehydrational History of asthma with no acute exacerbation Coronary artery disease Stroke with no residuals Gastroesophageal reflux disease Hypertension Hyperlipidemia History of rheumatoid arthritis History of dysphagia chronically with PEG tube insertion PEG tube has since been removed and an outpatient basis GI prophylaxis DVT prophylaxis Full code Plan: Continue normal saline at 75 mL/h, continue dysphagia diet pured per surgery Continue IV Protonix twice daily Supplement magnesium, phosphorous. And will follow-up on repeat labs Continue 72-hour calorie count General Surgery following and planning for EGD with dilation on Monitor electrolytes and renal function. The impression and plan of care has been dictated by Desiree Clarke Nurse Practitioner as directed. Dr. Cyndi MD I have performed a history and physical examination and medical decision making of this patient, discussed the same with the dictator, and agree with the dictators assessment and plan as written, documented as a scribe. Based on total visit time, I have performed more than 50% of this visit. Objective - Vital Signs Vital signs: Vital Signs Temp 98.4 F 08/07/24 12:28 Pulse 65 08/07/24 12:28 Resp 16 08/07/24 12:28 BP 130/83 08/07/24 12:28 Pulse Ox 98 08/07/24 12:28 FiO2 Intake & Output 08/07/24 08/07/24 08/08/24 06:59 18:59 06:59 Weight 68.039 kg Other: Voiding Method Urinal Urinal # Voids 1 - Labs CBC & Chem 7: 08/05/24 04:47 08/07/24 09:28 Labs: Abnormal Lab Results - Last 24 Hours (Table) 08/07/24 Range/Units 09:28 Anion Gap 13.40 H (4.00-12.00) mmol/L Calcium 8.2 L (8.7-10.3) mg/dL Assessment and Plan Time with Patient: Less than 30
[2024-08-08 04:23] LABS: Anisocytosis Slight; Basophils % (A) 1 %; Eosinophils % (A) 1 %; HGB 14.3 gm/dL (13.0-17.5); Hypochromasia Moderate; Lymphocytes # (A) 1.1 k/uL (1.0-4.8); Lymphocytes % (A) 23 %; MCH 28.9 pg (25.0-35.0); MCHC 30.4 g/dL (31.0-37.0); Mean Platelet Volume 8.6; Monocytes # (A) 0.3 k/uL (0-1.0); Monocytes % (A) 6 %; Neutrophils % (A) 67 %; Platelet Count 190 k/uL (150-450); RBC 4.94 m/uL (4.30-5.90); RDW 16.1 % (11.5-15.5); WBC 4.6 k/uL (3.8-10.6)
[2024-08-08] MEDS: IV FLUID CONTINUATION 1,000 ML IV ONE (07:25)
[2024-08-08] MEDS ORDERED: PROPOFOL 10 MG/ML 20 ML VIAL IV ONE (07:30)
[2024-08-08] MEDS ORDERED: LIDOCAINE 2% (PF) 20 MG/ML 5 ML VIAL ONE (07:30)
[2024-08-08] MEDS ORDERED: ONDANSETRON 4 MG/2 ML VIAL ONE (07:30)
[2024-08-08] MEDS: LACTATED RINGERS 1,000 ML IV ONE ×2 (07:32→07:59)
--- NOTE | 2024-08-08 07:56 | P.OP ---
Date of Procedure: 08/08/24 Preoperative Diagnosis: Dysphagia Gerd Postoperative Diagnosis: Gerd No evidence of significant esophageal stricture Procedure(s) Performed: EGD with biopsy and balloon dilatation Anesthesia: MAC Surgeon: Rickie Pavon Pathology: other (Esophagus) Condition: stable Disposition: PACU Description of Procedure: The patient was placed on the endoscopy table in the lateral position. He received IV sedation. The gas was placed oropharynx passed in the esophagus and stomach. Scope was placed through the pylorus. The first second portion duodenum appeared normal. Scope was brought back to the antrum this appeared minimal Flaim. The scope was then retroflexed there was no significant hiatal hernia. The GE junction appeared to be at 40 cm. The distal esophagus appeared to be inflamed. This area was biopsied. The patient did not have an obvious stricture. With the 20 mm balloon was placed across the GE junction. There was no significant structure seen. The balloon was deflated scope was then withdrawn. There was no evidence of any injury to the esophagus. The proximal esophagus were normal. Scope withdrawn the patient.
[2024-08-08 13:12] LABS: African American GFR (CKD) >90 (>60 ml/min/1.73 sqM); Anion Gap 10 mmol/L; Blood Urea Nitrogen 9 mg/dL (9-20); Calcium 8.4 mg/dL (8.4-10.2); Carbon Dioxide 26 mmol/L (22-30); Chloride 102 mmol/L (98-107); Glucose 104 mg/dL (74-99); Magnesium 1.8 mg/dL (1.6-2.3); Non-African American GFR(CKD) >90 (>60 ml/min/1.73 sqM); Potassium 3.5 mmol/L (3.5-5.1); Sodium 138 mmol/L (137-145)
--- NOTE | 2024-08-08 15:26 | P.PN ---
Subjective Progress Note Date: 08/08/24 This is a pleasant 68 year old male with medical history of asthma, coronary artery disease, stroke, gastroesophageal reflux disease, hypertension, hyperlipidemia, rheumatoid arthritis, prior smoking history and alcoholism. Patient comes in to the hospital with complaints of nausea on going over the last couple days. Denies any vomiting or diarrhea. He denies any fever or chills. He is not having any chest pain or shortness of breath. Patient states that his PEG tube has been removed on an outpatient basis and he is currently on oral food and drink by mouth. Abdominal pelvis CT reveals no hydronephrosis, no bowel obstruction no suspicious new findings seen to the constipation symptoms. Persistent surgical change of the diaphragmatic hiatus with wall thickening of the distal esophagus just proximal to this. Initial blood work reveals a white blood cell count of 21.2, sodium of 144 potassium 3.3, chloride 76 CO2 of 45, BUN of 33 creatinine 1.20 glucose of 187 calcium 11.9 serum alcohol less than 10. Patient was admitted to the hospital under internal medicine with clear liquid diet. He received a GI cocktail and was started on normal saline at 75 mL/h. 07/31/2024 Patient evaluated in follow up on the medical floor. Currently reporting continued constant nausea. He states he is not nauseas when he is not moving though. He has been continued on clear liquids. He vomited the clear liquid breakfast. No abdominal tenderness. White blood cell count 9.59, sodium 142, potassium 3.4. BUN 16.2, creatinine 0.9. Magnesium 1.8. 08/01/2024 Patient evaluated today in follow up resting in bed. He continues to report significant nausea and unable to tolerate much activity. Phosphorous level 1.3. 08/02/2024 Patient evaluated today resting in bed. He states he feels ok. He was trialed on regular diet states it caused him to throw up right away. Phosphorous level up to 3.4. 08/03/2024 Patient is seen in follow-up reporting an intense headache per nursing staff. Patient apparently has been vomiting over 10 times since last night and not tolerating much oral intake. Patient was evaluated by surgery although recommend reevaluation as patient is not tolerating any oral intake and is retching and heaving while having conversation. Patient will be placed on dysphagia diet per surgery and discussion of possible EGD with dilatation. Patient is afebrile and denies chest pain or shortness of breath. 08/04/2024 Patient is seen in follow-up today currently sitting up maintaining a pured diet. Patient not having much oral intake although is drinking some. Patient has had a few episodes of vomiting. Patient was evaluated by general surgery initially with plans of possible EGD with dilatation although recommending continuing a pured diet and maybe outpatient follow-up with manometry and has cleared the patient for discharge. Patient not tolerating much oral intake and will monitor overnight and discuss further with surgery regarding treatment plan moving forward. 08/05/2024 Patient is eval today in follow-up resting in bed he continues to report significant nausea and vomiting after eating. Plan is for a 72-hour calorie count. Patient underwent upper GI with findings of repeated emesis after the effervescent granules. Thing contrast had to be utilized. There is a mild stricture involving the distal third thoracic esophagus which could be due to esophagitis or neoplasm. Direct visualization recommended. There is possible tiny diverticulum versus focal ulcer within the mid thoracic esophagus on some of the later images. A query previous Niesen fundoplication. There is mild to moderate gastroesophageal reflux. Suboptimal assessment the stomach and the duodenum due to lack of air contrast. Unable to exclude diffuse fold thickening/gastritis this can also be assessed with direct visualization. Again the plan remains for a possible PEG tube placement on Monday. 08/06/2024 Patient evaluated today resting in bed. Continues with significant episodes of emesis and not able to keep any nutrition down. Calorie counts in progress. He will be going for EGD with dilation on . 08/07/2024 Patient is evaluated in follow up resting in bed. Continues to dry heave even with slight movement. He has been mostly bed rest since admission. He has es sentially no oral intake as he continues to vomit after oral intake. He will be going for EGD and dilation tomorrow with Dr. Pavon. He is reporting a cough with clear sputum production. Chest xray reveals no acute cardiopulmonary disease process; COPD changes. Labs today reveal sodium 141, potassium 3.6, BUN 10.0, creatinine 0.6. 08/08/2024 Has been obtain follow-up labs tomorrow. He states that he is not nauseous currently. He underwent EGD today bone biopsy. There was no evidence of si gnificant esophageal stricture noticed on exam biopsies were taken as the distal esophagus appeared to be inflamed. He was started on regular diet as tolerated. Continues with antiemetics as needed. Labs today reveal a white blood cell count of 4.6, hemoglobin of 14.3, sodium of 138, BUN of 9 creatinine of 0.51, magnesium 1.8. REVIEW OF SYSTEMS: CONSTITUTIONAL: No fever, no malaise, no fatigue. HEENT: No recent visual problems or hearing problems. Denied any sore throat. CARDIOVASCULAR: No chest pain, orthopnea, PND, no palpitations, no syncope. PULMONARY: No shortness of breath, no cough, no hemoptysis. GASTROINTESTINAL: No diarrhea, reports ongoing vomiting, reports some abdominal pain. Reports continued ongoing nausea, minimally improved today NEUROLOGICAL: No headaches, no weakness, no numbness. PHYSICAL EXAMINATION: GENERAL: The patient is alert and oriented x3, sitting up today. Well developed, elderly appearing, unkempt. Ill-appearing, thin built HEENT: Pupils are round and equally reacting to light. EOMI. No scleral icterus. No conjunctival pallor. Normocephalic, atraumatic. No pharyngeal erythema. No thyromegaly. CARDIOVASCULAR: S1 and S2 present. No murmurs, rubs, or gallops. PULMONARY: Chest is clear to auscultation, no wheezing or crackles. ABDOMEN: Soft, thin, nontender, nondistended, normoactive bowel sounds. No palpable organomegaly. MUSCULOSKELETAL: No joint swelling or deformity. EXTREMITIES: No cyanosis, clubbing, or pedal edema. NEUROLOGICAL: Gross neurological examination did not reveal any focal deficits. SKIN: No rashes. Assessment Intractable nausea with multiple episodes of nausea likely due to esophagitis and gastritis. Esophageal stricture noted on EGD however patient underwent EGD for balloon dilation today and there was no significant esophageal stricture noted on exam. History of paraesophageal hernia repair Leukocytosis reactive Hypovolemic hyponatremia Hypokalemia from poor oral intake Contraction alkalosis secondary to dehydration Hyperglycemia Hypercalcemia from dehydration Mild acute kidney injury, dehydrational History of asthma with no acute exacerbation Coronary artery disease Stroke with no residuals Gastroesophageal reflux disease Hypertension Hyperlipidemia History of rheumatoid arthritis History of dysphagia chronically with PEG tube insertion PEG tube has since been removed and an outpatient basis GI prophylaxis DVT prophylaxis Full code Plan: Continue normal saline at 75 mL/h, continue dysphagia diet pured per surgery advance to regular as tolerated Continue IV Protonix twice daily Supplement magnesium, phosphorous. And will follow-up on repeat labs Continue 72-hour calorie count Monitor electrolytes and renal function. Further recommendations forthcoming The impression and plan of care has been dictated by Desiree Clarke, Nurse Practitioner as directed. Dr. Cyndi MD I have performed a history and physical examination and medical decision making of this patient, discussed the same with the dictator, and agree with the dictators assessment and plan as written, documented as a scribe. Based on total visit time, I have performed more than 50% of this visit. Objective - Vital Signs Vital signs: Vital Signs Temp 97.5 F L 08/08/24 08:10 Pulse 75 08/08/24 10:20 Resp 18 08/08/24 10:20 BP 137/88 08/08/24 10:20 Pulse Ox 98 08/08/24 10:20 FiO2 Intake & Output 08/07/24 08/08/24 08/08/24 18:59 06:59 18:59 Intake Total 540 598 Output Total 350 700 Balance 190 -102 Weight 68.039 kg Intake: IV 200 Oral 540 398 Output: Urine 350 700 Other: Voiding Method Urinal Urinal Urinal # Voids 1 1 - Labs CBC & Chem 7: 08/08/24 03:47 08/08/24 03:47 Labs: Abnormal Lab Results - Last 24 Hours (Table) 08/07/24 08/08/24 08/08/24 Range/Units 09:28 03:47 03:47 MCHC 30.4 L (31.0-37.0) g/dL RDW 16.1 H (11.5-15.5) % Anion Gap 13.40 H (4.00-12.00) mmol/L Creatinine 0.51 L (0.66-1.25) mg/dL Glucose 104 H (74-99) mg/dL Calcium 8.2 L (8.7-10.3) mg/dL Assessment and Plan Time with Patient: Less than 30
[2024-08-09 09:53] LABS: African American GFR (CKD) >90 (>60 ml/min/1.73 sqM); Anion Gap 5 mmol/L; Blood Urea Nitrogen 11 mg/dL (9-20); Calcium 8.5 mg/dL (8.4-10.2); Carbon Dioxide 33 mmol/L (22-30); Chloride 101 mmol/L (98-107); Glucose 100 mg/dL (74-99); Non-African American GFR(CKD) >90 (>60 ml/min/1.73 sqM); Potassium 3.8 mmol/L (3.5-5.1); Sodium 139 mmol/L (137-145)
--- NOTE | 2024-08-09 11:16 | P.PN ---
Subjective Progress Note Date: 08/09/24 SURGICAL PROGRESS NOTE CHIEF COMPLAINT: Nausea and vomiting HISTORY OF PRESENT ILLNESS: Patient status post EGD with biopsy and balloon dilatation. Patient reports episode of vomiting last night. He reports no further blood in the emesis. Patient seen by Dr. Pavon this morning during breakfast and patient had been eating the breakfast without difficulty. Afebrile. Pathology results pending PHYSICAL EXAM: VITAL SIGNS: Reviewed. GENERAL: Well-developed in no acute distress. ABDOMEN: Soft. Nondistended. NEUROLOGIC: Alert and oriented. Cranial nerves II through XII grossly intact. ASSESSMENT: 1. Dysphagia status post EGD with biopsy and balloon dilatation. No evidence of significant esophageal stricture per EGD findings 2. GERD 3. Esophagitis PLAN: -Patient can be discharge from surgical standpoint -Continue regular diet -Continue PPI Physician Chairman Emeritus note has been reviewed by physician. Signing provider agrees with the documented findings, assessment, and plan of care. Objective - Vital Signs Vital signs: Vital Signs Temp 97.9 F 08/09/24 07:49 Pulse 69 08/09/24 07:49 Resp 14 08/09/24 09:09 BP 148/85 08/09/24 07:49 Pulse Ox 99 08/09/24 07:49 FiO2 Intake & Output 08/08/24 08/09/24 08/09/24 18:59 06:59 18:59 Intake Total 598 540 Output Total 700 550 Balance -102 -10 Weight 68.039 kg Intake: IV 200 Oral 398 540 Output: Urine 700 550 Other: Voiding Method Urinal Urinal Urinal # Voids 1 - Labs CBC & Chem 7: 08/08/24 03:47 08/09/24 09:18 Labs: Abnormal Lab Results - Last 24 Hours (Table) 08/08/24 08/09/24 Range/Units 03:47 09:18 Carbon Dioxide 33 H (22-30) mmol/L Creatinine 0.51 L (0.66-1.25) mg/dL Glucose 104 H 100 H (74-99) mg/dL
--- NOTE | 2024-08-09 17:21 | P.PN ---
Subjective Progress Note Date: 08/09/24 This is a pleasant 68 year old male with medical history of asthma, coronary artery disease, stroke, gastroesophageal reflux disease, hypertension, hyperlipidemia, rheumatoid arthritis, prior smoking history and alcoholism. Patient comes in to the hospital with complaints of nausea on going over the last couple days. Denies any vomiting or diarrhea. He denies any fever or chills. He is not having any chest pain or shortness of breath. Patient states that his PEG tube has been removed on an outpatient basis and he is currently on oral food and drink by mouth. Abdominal pelvis CT reveals no hydronephrosis, no bowel obstruction no suspicious new findings seen to the constipation symptoms. Persistent surgical change of the diaphragmatic hiatus with wall thickening of the distal esophagus just proximal to this. Initial blood work reveals a white blood cell count of 21.2, sodium of 144 potassium 3.3, chloride 76 CO2 of 45, BUN of 33 creatinine 1.20 glucose of 187 calcium 11.9 serum alcohol less than 10. Patient was admitted to the hospital under internal medicine with clear liquid diet. He received a GI cocktail and was started on normal saline at 75 mL/h. 07/31/2024 Patient evaluated in follow up on the medical floor. Currently reporting continued constant nausea. He states he is not nauseas when he is not moving though. He has been continued on clear liquids. He vomited the clear liquid breakfast. No abdominal tenderness. White blood cell count 9.59, sodium 142, potassium 3.4. BUN 16.2, creatinine 0.9. Magnesium 1.8. 08/01/2024 Patient evaluated today in follow up resting in bed. He continues to report significant nausea and unable to tolerate much activity. Phosphorous level 1.3. 08/02/2024 Patient evaluated today resting in bed. He states he feels ok. He was trialed on regular diet states it caused him to throw up right away. Phosphorous level up to 3.4. 08/03/2024 Patient is seen in follow-up reporting an intense headache per nursing staff. Patient apparently has been vomiting over 10 times since last night and not tolerating much oral intake. Patient was evaluated by surgery although recommend reevaluation as patient is not tolerating any oral intake and is retching and heaving while having conversation. Patient will be placed on dysphagia diet per surgery and discussion of possible EGD with dilatation. Patient is afebrile and denies chest pain or shortness of breath. 08/04/2024 Patient is seen in follow-up today currently sitting up maintaining a pured diet. Patient not having much oral intake although is drinking some. Patient has had a few episodes of vomiting. Patient was evaluated by general surgery initially with plans of possible EGD with dilatation although recommending continuing a pured diet and maybe outpatient follow-up with manometry and has cleared the patient for discharge. Patient not tolerating much oral intake and will monitor overnight and discuss further with surgery regarding treatment plan moving forward. 08/05/2024 Patient is eval today in follow-up resting in bed he continues to report significant nausea and vomiting after eating. Plan is for a 72-hour calorie count. Patient underwent upper GI with findings of repeated emesis after the effervescent granules. Thing contrast had to be utilized. There is a mild stricture involving the distal third thoracic esophagus which could be due to esophagitis or neoplasm. Direct visualization recommended. There is possible tiny diverticulum versus focal ulcer within the mid thoracic esophagus on some of the later images. A query previous Niesen fundoplication. There is mild to moderate gastroesophageal reflux. Suboptimal assessment the stomach and the duodenum due to lack of air contrast. Unable to exclude diffuse fold thickening/gastritis this can also be assessed with direct visualization. Again the plan remains for a possible PEG tube placement on Monday. 08/06/2024 Patient evaluated today resting in bed. Continues with significant episodes of emesis and not able to keep any nutrition down. Calorie counts in progress. He will be going for EGD with dilation on . 08/07/2024 Patient is evaluated in follow up resting in bed. Continues to dry heave even with slight movement. He has been mostly bed rest since admission. He has es sentially no oral intake as he continues to vomit after oral intake. He will be going for EGD and dilation tomorrow with Dr. Pavon. He is reporting a cough with clear sputum production. Chest xray reveals no acute cardiopulmonary disease process; COPD changes. Labs today reveal sodium 141, potassium 3.6, BUN 10.0, creatinine 0.6. 08/08/2024 Has been obtain follow-up labs tomorrow. He states that he is not nauseous currently. He underwent EGD today bone biopsy. There was no evidence of si gnificant esophageal stricture noticed on exam biopsies were taken as the distal esophagus appeared to be inflamed. He was started on regular diet as tolerated. Continues with antiemetics as needed. Labs today reveal a white blood cell count of 4.6, hemoglobin of 14.3, sodium of 138, BUN of 9 creatinine of 0.51, magnesium 1.8. 08/09/2024 Patient is evaluated today in follow up on the medical floor. He is resting in bed. Had a few bites of regular food for breakfast and did vomit afterwards. He is able to get up and change positions without dry heaving. Still not tolerating enough oral intake for discharge. Renal function and electrolytes are unremarkable. Magesium 1.7. REVIEW OF SYSTEMS: CONSTITUTIONAL: No fever, no malaise, no fatigue. HEENT: No recent visual problems or hearing problems. Denied any sore throat. CARDIOVASCULAR: No chest pain, orthopnea, PND, no palpitations, no syncope. PULMONARY: No shortness of breath, no cough, no hemoptysis. GASTROINTESTINAL: No diarrhea, reports ongoing vomiting, reports some abdominal pain. Reports continued ongoing nausea, minimally improved today NEUROLOGICAL: No headaches, no weakness, no numbness. PHYSICAL EXAMINATION: GENERAL: The patient is alert and oriented x3, sitting up today. Well developed, elderly appearing, unkempt. Ill-appearing, thin built HEENT: Pupils are round and equally reacting to light. EOMI. No scleral icterus. No conjunctival pallor. Normocephalic, atraumatic. No pharyngeal erythema. No thyromegaly. CARDIOVASCULAR: S1 and S2 present. No murmurs, rubs, or gallops. PULMONARY: Chest is clear to auscultation, no wheezing or crackles. ABDOMEN: Soft, thin, nontender, nondistended, normoactive bowel sounds. No palpable organomegaly. MUSCULOSKELETAL: No joint swelling or deformity. EXTREMITIES: No cyanosis, clubbing, or pedal edema. NEUROLOGICAL: Gross neurological examination did not reveal any focal deficits. SKIN: No rashes. Assessment Intractable nausea with multiple episodes of nausea likely due to esophagitis and gastritis. Esophageal stricture noted on EGD however patient underwent EGD for balloon dilation today and there was no significant esophageal stricture noted on exam. History of paraesophageal hernia repair Leukocytosis reactive Hypovolemic hyponatremia Hypokalemia from poor oral intake Contraction alkalosis secondary to dehydration Hyperglycemia Hypercalcemia from dehydration Mild acute kidney injury, dehydrational History of asthma with no acute exacerbation Coronary artery disease Stroke with no residuals Gastroesophageal reflux disease Hypertension Hyperlipidemia History of rheumatoid arthritis History of dysphagia chronically with PEG tube insertion PEG tube has since been removed and an outpatient basis GI prophylaxis DVT prophylaxis Full code Plan: Continue normal saline at 75 mL/h, continue dysphagia diet pured per surgery advance to regular as tolerated Continue IV Protonix twice daily Supplement magnesium, will follow-up on repeat labs Continue 72-hour calorie count Monitor electrolytes and renal function. Further recommendations forthcoming as patient is still not tolerating oral intake general surgery recommending to continue monitoring and supportive care with antiemetics. Dr. Morenoania to follow up with patient on Monday. Patient was unable to tolerate getting up and working with physical therapy today. The impression and plan of care has been dictated by Desiree Clarke, Nurse Practitioner as directed. Dr. Cyndi MD I have performed a history and physical examination and medical decision making of this patient, discussed the same with the dictator, and agree with the dictators assessment and plan as written, documented as a scribe. Based on total visit time, I have performed more than 50% of this visit. Objective - Vital Signs Vital signs: Vital Signs Temp 97.7 F 08/09/24 13:52 Pulse 64 08/09/24 13:52 Resp 14 08/09/24 13:52 BP 127/85 08/09/24 13:52 Pulse Ox 99 08/09/24 13:52 FiO2 Intake & Output 08/08/24 08/09/24 08/09/24 18:59 06:59 18:59 Intake Total 598 540 Output Total 700 550 Balance -102 -10 Weight 68.039 kg Intake: IV 200 Oral 398 540 Output: Urine 700 550 Other: Voiding Method Urinal Urinal Urinal # Voids 1 - Labs CBC & Chem 7: 08/08/24 03:47 08/09/24 09:18 Labs: Abnormal Lab Results - Last 24 Hours (Table) 08/09/24 Range/Units 09:18 Carbon Dioxide 33 H (22-30) mmol/L Glucose 100 H (74-99) mg/dL Assessment and Plan Time with Patient: Less than 30
[2024-08-09] MEDS: MAGNESIUM SULFATE-D5W PMX 1 GM in DEXTROSE/WATER 1 100ML.BAG IVPB ONE (17:48)
--- NOTE | 2024-08-10 15:18 | P.PN ---
Subjective Progress Note Date: 08/10/24 CHIEF COMPLAINT: Dysphagia HISTORY OF PRESENT ILLNESS: The patient is a 68-year-old male with nausea and vomiting. His mother is at bedside. Patient had an upper endoscopy with dilation without any improvement of symptoms. He is vomiting and reports intolerance to textured food. His main concern includes trouble with swelling of the upper throat. ROS: No fevers or chills. No new chest pain. PHYSICAL EXAM: VITAL SIGNS: Reviewed CONSTITUTIONAL: Well developed and in no acute distress. EYES: Conjuctivae without sclera icterus. Extraocular movements grossly intact. HEAD, EARS, NOSE, THROAT: Moist buccal mucosa. Head is atraumatic, normocephalic. Hears conversational speech. No nasal drainage. Poor dentition. RESPIRATORY: Non-labored respirations and equal bilateral excursions. CARDIOVASCULAR: Palpable 2+ radial pulses. ABDOMEN: Nontender MUSCULOSKELETAL: No gross deformity of the lower extremities noted. No clubbing. No cyanosis. SKIN: Good skin turgor. Well perfused. NEUROLOGIC: Cranial nerves II through XII grossly intact. No focal or lateralizing signs. PSYCH: Appropriate affect. Alert and oriented to person, place and time. CLINICAL LABS: Reviewed. Magnesium low 1.8. Final Pathologic Diagnosis LOWER ESOPHAGUS, BIOPSY: Mild chronic and focal acute esophagitis. Intramucosal eosinophils are not identified. ASSESSMENT: 1. Intractable nausea and vomiting 2. Dysphagia 3. Presbyesophagus 4. Hypomagnesia 5. Globus PLAN: 1. Patient still reports globus despite upper endoscopy with dilation. Primary symptoms of the upper throat. 2. Patient reports intolerance to regular diet. He reports he can tolerate pured consistency and cream of wheat consistency. Will adjust diet accordingly. 3. Stable for discharge once tolerating diet. Objective - Vital Signs Vital signs: Vital Signs Temp 97.7 F 08/10/24 14:00 Pulse 69 08/10/24 14:00 Resp 15 08/10/24 07:05 BP 158/85 08/10/24 14:00 Pulse Ox 99 08/10/24 14:00 FiO2 Intake & Output 08/09/24 08/10/24 08/10/24 18:59 06:59 18:59 Output Total 1050 200 Balance -1050 -200 Output: Urine 1050 200 Other: Voiding Method Urinal Urinal # Voids 4 - Labs CBC & Chem 7: 08/08/24 03:47 08/09/24 09:18
--- NOTE | 2024-08-11 01:59 | PN ---
PROGRESS NOTE DATE OF SERVICE: 08/10/2024 SUBJECTIVE: This 68-year-old gentleman was admitted with intractable nausea, vomiting, also had balloon dilatation with EGD. The patient is on modified diet. No chest pain, no palpitation. OBJECTIVE: VITAL SIGNS: On exam, pulse is 69, blood pressure 138/82, respirations 15. CHEST: Clear to auscultation. ABDOMEN: Soft. LABORATORY DATA: Reviewed. ASSESSMENT: 1. Intractable nausea and vomiting with a possibly presbyesophagus. 2. Dysphagia, on modified diet. 3. History of paraesophageal hernia repair. 4. Multiple complex medical issues. RECOMMENDATION: Recommend to continue current management and treatment. Continue with diet, aspiration precautions. Prognosis guarded. Increase ambulation. Further recommendations to follow. MMODL / IJN: [id number] /
[2024-08-11 11:20] LABS: Anisocytosis Slight; Basophils % (A) 0 %; Eosinophils # (A) 0.1 k/uL (0-0.7); Eosinophils % (A) 1 %; HCT 46.1 % (39.0-53.0); HGB 14.5 gm/dL (13.0-17.5); Lymphocytes # (A) 1.3 k/uL (1.0-4.8); Lymphocytes % (A) 22 %; MCH 29.1 pg (25.0-35.0); MCHC 31.4 g/dL (31.0-37.0); MCV 92.8 fL (80.0-100.0); Mean Platelet Volume 9.8; Monocytes # (A) 0.4 k/uL (0-1.0); Monocytes % (A) 8 %; Neutrophils # (A) 3.8 k/uL (1.3-7.7); Neutrophils % (A) 67 %; Platelet Count 289 k/uL (150-450); RBC 4.96 m/uL (4.30-5.90); RDW 16.3 % (11.5-15.5); WBC 5.7 k/uL (3.8-10.6)
[2024-08-11 11:29] LABS: ALT 18 U/L (4-49); AST 37 U/L (17-59); African American GFR (CKD) >90 (>60 ml/min/1.73 sqM); Anion Gap 6 mmol/L; Blood Urea Nitrogen 6 mg/dL (9-20); Calcium 8.4 mg/dL (8.4-10.2); Carbon Dioxide 23 mmol/L (22-30); Chloride 103 mmol/L (98-107); Globulin 2.9 g/dL; Glucose 135 mg/dL (74-99); Non-African American GFR(CKD) >90 (>60 ml/min/1.73 sqM); Sodium 132 mmol/L (137-145); Total Bilirubin 0.9 mg/dL (0.2-1.3); Total Protein 5.9 g/dL (6.3-8.2)
[2024-08-11 11:48] LABS: Alkaline Phosphatase 61 U/L (38-126); Potassium 4.7 mmol/L (3.5-5.1)
--- NOTE | 2024-08-11 16:23 | P.PN ---
Subjective Progress Note Date: 08/11/24 CHIEF COMPLAINT: Dysphagia HISTORY OF PRESENT ILLNESS: The patient is a 68-year-old male with nausea and vomiting. His mother is at bedside. He reports he has tolerated pured diet. Patient's ready to go home. ROS: No fevers or chills. No new chest pain. PHYSICAL EXAM: VITAL SIGNS: Reviewed CONSTITUTIONAL: Well developed and in no acute distress. EYES: Conjuctivae without sclera icterus. Extraocular movements grossly intact. HEAD, EARS, NOSE, THROAT: Moist buccal mucosa. Head is atraumatic, normocephalic. Hears conversational speech. No nasal drainage. Poor dentition. RESPIRATORY: Non-labored respirations and equal bilateral excursions. CARDIOVASCULAR: Palpable 2+ radial pulses. ABDOMEN: Nontender MUSCULOSKELETAL: No gross deformity of the lower extremities noted. No clubb ing. No cyanosis. SKIN: Good skin turgor. Well perfused. NEUROLOGIC: Cranial nerves II through XII grossly intact. No focal or lateralizing signs. PSYCH: Appropriate affect. Alert and oriented to person, place and time. CLINICAL LABS: Reviewed. WBC normal. ASSESSMENT: 1. Intractable nausea and vomiting 2. Dysphagia 3. Presbyesophagus 4. Hypomagnesia 5. Globus PLAN: 1. Recommend discharge on pured diet which he has tolerated. 2. May discharge from surgical standpoint. 3. With history of hypomagnesia, recommend recheck magnesium levels. Objective - Vital Signs Vital signs: Vital Signs Temp 98.6 F 08/11/24 14:00 Pulse 64 08/11/24 14:00 Resp 14 08/11/24 14:00 BP 115/74 08/11/24 14:00 Pulse Ox 96 08/11/24 14:00 FiO2 Intake & Output 08/10/24 08/11/24 08/11/24 17:59 06:59 18:59 Output Total Balance Output: Urine Other: Voiding Method Urinal - Labs CBC & Chem 7: 08/11/24 10:54 08/11/24 10:54 Labs: Abnormal Lab Results - Last 24 Hours (Table) 08/11/24 08/11/24 Range/Units 10:54 10:54 RDW 16.3 H (11.5-15.5) % Sodium 132 L (137-145) mmol/L BUN 6 L (9-20) mg/dL Creatinine 0.58 L (0.66-1.25) mg/dL Glucose 135 H (74-99) mg/dL Total Protein 5.9 L (6.3-8.2) g/dL Albumin 3.0 L (3.5-5.0) g/dL
[2024-08-11] MEDS: MAGNESIUM SULFATE-D5W PMX 1 GM in DEXTROSE/WATER 1 100ML.BAG IVPB ONE (18:00)
--- NOTE | 2024-08-11 23:50 | PN ---
PROGRESS NOTE DATE OF SERVICE: 08/11/2024 HISTORY OF PRESENT ILLNESS: This 68-year-old gentleman with intractable nausea and vomiting is able to keep some of the food down at this time. No chest pain. No palpitations. No fever. PHYSICAL EXAMINATION: VITAL SIGNS: Pulse is 67, blood pressure , respirations 15. CHEST: Clear to auscultation. CARDIOVASCULAR: S1, S2. ABDOMEN: Soft. LABORATORY DATA: Reviewed. ASSESSMENT: 1. Intractable nausea and vomiting with possible presbyesophagus and gastritis. 2. Dysphagia, on modified diet. 3. History of paraesophageal hernia repair. 4. Multiple complex medical issues. RECOMMENDATIONS: Recommend to continue current management and continue symptomatic treatment. Continue with the diet. Follow closely with Surgery. Prognosis guarded. Further recommendations to follow. MMODL / IJN: [id number] /
[2024-08-12 07:28] VITALS: BP 128/88; PULSE 72; RESP 16; TEMP 98.7
[2024-08-12 11:28] LABS: African American GFR (CKD) >90 (>60 ml/min/1.73 sqM); Anion Gap 6 mmol/L; Blood Urea Nitrogen 9 mg/dL (9-20); Calcium 8.6 mg/dL (8.4-10.2); Carbon Dioxide 30 mmol/L (22-30); Chloride 98 mmol/L (98-107); Glucose 148 mg/dL (74-99); Non-African American GFR(CKD) >90 (>60 ml/min/1.73 sqM); Potassium 3.9 mmol/L (3.5-5.1); Sodium 134 mmol/L (137-145)
--- NOTE | 2024-08-12 13:42 | P.PN ---
Subjective Progress Note Date: 08/12/24 Patient states that he tolerated some diet today. His EGD biopsy shows evidence of acute esophagitis. On exam vital signs appear stable. Abdomen is soft. Patient will continue oral diet. Objective - Vital Signs Vital signs: Vital Signs Temp 98.7 F 08/12/24 07:27 Pulse 72 08/12/24 07:27 Resp 16 08/12/24 07:27 BP 128/88 08/12/24 07:27 Pulse Ox 98 08/12/24 09:21 FiO2 Intake & Output 08/11/24 08/12/24 08/12/24 18:59 06:59 18:59 Output Total 700 Balance -700 Output: Urine 700 Other: Voiding Method Urinal Urinal # Voids 3 - Labs CBC & Chem 7: 08/11/24 10:54 08/12/24 10:31 Labs: Abnormal Lab Results - Last 24 Hours (Table) 08/12/24 Range/Units 10:31 Sodium 134 L (137-145) mmol/L Glucose 148 H (74-99) mg/dL
== END 2024-08-12 14:38 | disposition home health service (06) | DRG 392 ==
LOC: EC 18:23 → 6NMEDSUR 07-30 00:02 → OBSVTOIN 07-30 00:03 → 6NMEDSUR 07-30 14:53
PROVIDERS: ADMIT Hospitalist; ATTEND Hospitalist
PROC: 05H933Z Insertion of Infusion Device into Right Brachial Vein, Percutaneous Approach (ICD-10-PCS; 2024-08-07 13:00)
PROC: 0DB38ZX Excision of Lower Esophagus, Via Natural or Artificial Opening Endoscopic, Diagnostic (ICD-10-PCS; principal; 2024-08-08 07:30)
PROC: 0D748ZZ Dilation of Esophagogastric Junction, Via Natural or Artificial Opening Endoscopic (ICD-10-PCS; principal; 2024-08-08 07:30)
DX: K21.00 Gastro-esophageal reflux disease with esophagitis, without bleeding (principal); E87.1 Hypo-osmolality and hyponatremia; E87.3 Alkalosis; M06.9 Rheumatoid arthritis, unspecified; F10.21 Alcohol dependence, in remission; J45.909 Unspecified asthma, uncomplicated; I10 Essential (primary) hypertension; F32.A Depression, unspecified; N17.9 Acute kidney failure, unspecified; K29.70 Gastritis, unspecified, without bleeding; K22.89 Other specified disease of esophagus; K22.2 Esophageal obstruction; E83.42 Hypomagnesemia; E86.1 Hypovolemia; F41.9 Anxiety disorder, unspecified; E87.6 Hypokalemia; E86.0 Dehydration; R73.9 Hyperglycemia, unspecified; E83.52 Hypercalcemia; I25.10 Atherosclerotic heart disease of native coronary artery without angina pectoris; E78.5 Hyperlipidemia, unspecified; R13.10 Dysphagia, unspecified; M47.812 Spondylosis without myelopathy or radiculopathy, cervical region; Z86.73 Personal history of transient ischemic attack (TIA), and cerebral infarction without residual deficits; Z87.891 Personal history of nicotine dependence; Z79.899 Other long term (current) drug therapy; Z87.01 Personal history of pneumonia (recurrent)
CPT/HCPCS: 36410; 36415; 43239; 43249; 71045; 71046; 74177; 74240; 76937; 80048; 80053; 80320; 83690; 83735; 84100; 84132; 85025; 88305; 94760; 96361; 96365; 96366; 96375; 96376; 99285

== ENCOUNTER 2024-08-28 12:41 | Inpatient (IN) | payer MEDICARE ==
[2024-08-28] MEDS: SODIUM CHLORIDE 0.9% 1,000 ML IV ONE (13:13)
--- NOTE | 2024-08-28 13:27 | ED ---
General Adult HPI - General Chief complaint: Nausea/Vomiting/Diarrhea Stated complaint: vomitting Time Seen by Provider: 08/28/24 12:49 Source: patient, EMS Mode of arrival: EMS - History of Present Illness Initial comments: Patient is a 68-year-old gentleman past medical history of cyclic vomiting syndrome presenting today for "dehydration". History is limited as patient and friend at bedside seem frustrated by having to repeat providing patient's PMH to another provider. Patient has required multiple hospital admissions for similar symptoms. Today symptoms are similar to prior. He has no abdominal pain, shortness of breath or chest pain. No fevers or chills. No diarrhea, hematochezia. No black or bloody stools. Prior abdominal surgeries include prior cholecystectomy and prior feeding tube placement. Patient's friend states patient had a G-tube placed last summer and was ultimately removed in February when patient was able to gain weight. This was done by Dr. Pavon. Patient was discharged just discharged like [facility] on 08/23/2024 when a dmitted earlier for similar symptoms. Patient's friend at bedside, with whom he lives, states that he has been vomiting ever since discharge. He [place] taking Zofran, BuSpar, pantoprazole but is unable to keep any of his medications down. States patient was started on additional medications at time of discharge but however has not been able to keep any of them down due to nausea and vomiting. Emesis is nonbloody nonbilious. Of note patient has no history ACS, is a non- smoker, denies alcohol use. Infrequently uses marijuana, patient's friend at bedside states patient has not used marijuana recently. - Related Data Home Medications Medication Instructions Recorded Confirmed Albuterol Sulfate [Albuterol 2 puff PO RT-Q4H PRN 07/30/24 08/28/24 Sulfate Hfa] Ferrous Sulfate [Iron (65 MG 325 mg PO DAILY 07/30/24 08/28/24 Elemental)] Metoprolol Tartrate [Lopressor] 25 mg PO BID-W/MEALS 07/30/24 08/28/24 Nitroglycerin Sl Tabs [Nitrostat] 0.4 mg SUBLINGUAL Q5M PRN 07/30/24 08/28/24 Pantoprazole [Protonix] 40 mg PO DAILY 07/30/24 08/28/24 Sertraline [Zoloft] 25 mg PO DAILY 07/30/24 08/28/24 busPIRone HCL [Buspar] 7.5 mg PO BID-W/MEALS 07/30/24 08/28/24 Acetaminophen Tab [Tylenol] 650 mg PO Q6H PRN 08/28/24 08/28/24 Atorvastatin [Lipitor] 40 mg PO DAILY 08/28/24 08/28/24 Folic Acid 1 mg PO DAILY 08/28/24 08/28/24 Magnesium Oxide [Mag-Ox] See Taper PO DAILY 08/28/24 08/28/24 Multivitamins, Thera [Multivitamin 1 tab PO DAILY 08/28/24 08/28/24 (formulary)] Thiamine [Vitamin B-1] 100 mg PO DAILY 08/28/24 08/28/24 Previous Rx's Medication Instructions Recorded Ondansetron [Zofran] 4 mg PO Q8HR PRN #21 tab 08/12/24 Allergies Allergy/AdvReac Type Severity Reaction Status Date / Time No Known Allergies Allergy Verified 08/28/24 14:49 Review of Systems ROS Statement: Those systems with pertinent positive or pertinent negative responses have been documented in the HPI. Limitations: ROS unobtainable due to patients medical condition Past Medical History Past Medical History: Asthma, Coronary Artery Disease (CAD), Chest Pain / Angina, CVA/TIA, GERD/Reflux, Hyperlipidemia, Hypertension, Pneumonia, Rheumatoid Arthritis (RA) Additional Past Medical History / Comment(s): MIGRAINES, HEART MURMUR, hx HIATAL HERNIA, ANEMIA, one dr told him he had a stroke at one time-no effects, varicose veins, history of incarcerated per esophageal hernia, status post robotic-assisted paraesophageal hernia repair and Frederick fundoplication on 04/12/2022. History of Any Multi-Drug Resistant Organisms: None Reported Past Surgical History: Cholecystectomy, Heart Catheterization, Hernia Repair, Orthopedic Surgery Additional Past Surgical History / Comment(s): Lt achilles tendon,RT SHOULDER surgery, RT ACHILLES TENDON reattached, HEMORRHOIDECTOMY, 13 FATTY TUMORS removed. left hand index finger surgery after injury, EGD WITH DILATION, para esophageal hernia repair with Frederick fundoplication on 04/12/2022. PEG tube Past Anesthesia/Blood Transfusion Reactions: No Reported Reaction Additional Past Anesthesia/Blood Transfusion Reaction / Comment(s): no hx blood transfusion Past Psychological History: Anxiety, Depression Smoking Status: Former smoker Past Alcohol Use History: None Reported Past Drug Use History: Marijuana - Past Family History Mother Family Medical History: Cancer Father Additional Family Medical History / Comment(s): thinks aneurysm General Exam - General Exam Comments Initial Comments: PE: CONSTITUTIONAL: No apparent distress, chronically ill-appearing, nontoxic SKIN: Warm, dry, no jaundice, hives or petechiae EYES: Pupils are equally round, extraocular movements intact without nystagmus, clear conjunctiva, non-icteric sclera HENT: Normocephalic, atraumatic, dry mucus membranes, oropharynx clear without exudates NECK: , Full range of motion, normal appearance PULMONARY: Clear to auscultation without wheezes, rhonchi, or rales, normal excursion, no accessory muscle use and no stridor CARDIOVASCULAR: Regular rate, rhythm, normal S1 and S2. No appreciated murmurs, rubs or gallops. Strong radial pulses with intact distal perfusion. No lower extremity edema GASTROINTESTINAL: Soft, active bowel sounds throughout, non-tender, non- distended, no palpable masses, no rebound or guarding. No hepatosplenomegaly MUSCULOSKELETAL: Extremities have no gross deformity, no edema, redness, or swelling. No calf swelling NEUROLOGIC:_a/o x 3, GCS 15, normal mentation and speech. Moves all extremities x 4 without motor or sensory deficit PSYCHIATRIC:_normal mood and affect, thought process is clear and linear Course Vital Signs 08/28/24 08/28/24 08/28/24 12:43 15:20 15:48 Temperature 98.0 F Pulse Rate 137 H 122 H 114 H Respiratory 20 18 18 Rate Blood Pressure 123/104 139/106 114/94 O2 Sat by Pulse 97 97 100 Oximetry 08/28/24 08/28/24 08/28/24 17:24 18:16 20:20 Temperature Pulse Rate 96 96 98 Respiratory 19 16 15 Rate Blood Pressure 113/83 119/76 121/83 O2 Sat by Pulse 98 95 95 Oximetry 08/28/24 22:10 Temperature 98.1 F Pulse Rate 96 Respiratory 15 Rate Blood Pressure 120/72 O2 Sat by Pulse 98 Oximetry - Reevaluation(s) Reevaluation #1: Patient troponin 0.143. 08/28/24 14:30 Reevaluation #2: On reassessment patient endorses persistent nausea, remains tachycardic, heart rate has improved to 105, ordered additional 500 cc bolus and maintenance fluids and additional dose of antiemetic. 08/28/24 16:47 EKG Findings - EKG Comments: EKG Findings:: Sinus tachycardia with shortened VT interval, VT interval 81 ms QT/QTc QTc 280/364 ms, normal axis, does appear to have mild ST depression lead V4 and V5 without reciprocal elevationCompared to EKG performed on 01/17/2024, slight ST depression V4, V5 appears new from prior, patient did have a slightly shortened VT interval at that time as well of 114 ms, otherwise no significant changes Medical Decision Making - Medical Decision Making Was pt. sent in by a medical professional or institution (, PA, COLOR [employer]ER, urgent care, hospital, or prison...) When possible be specific @ -No Did you speak to anyone other than the patient for history (EMS, parent, family, police, friend...)? What history was obtained from this source @Did briefly speak with patient's housemate at bedside, feels patient is dehydrated as he would not been able to keep any fluids down for the last 4 days which is the reason for presenting today Did you review nursing and triage notes (agree or disagree)? Why? @ -I reviewed nursing and triage notes patient here for nausea vomiting, history of cyclic vomiting syndrome, agree with triage note Were old charts reviewed (outside hosp., previous admission, EMS record, old EKG, old radiological studies, urgent care reports/EKG's, prison records)? Report findings @ -Medical records reviewed-reviewed discharge reviewed discharge summary from [facility] provided by patient's housemate who presents with him today, states that patient was discharged home on pantoprazole Zofran and Bu Spar, patient was admitted for dehydration, additionally, Reviewed CT abdomen pelvis done 07/29/2024 when patient has presented for similar symptoms, showed no bowel obstruction no acute process, did show distal esophageal wall thickening. Differential Diagnosis (chest pain, altered mental status, abdominal pain women, abdominal pain men, vaginal bleeding, weakness, fever, dyspnea, syncope, heada jabari, dizziness, GI bleed, back pain, seizure, CVA, palpatations, mental health, musculoskeletal)? @Differential Abdominal Pain Men: Appendicitis, cholecystitis, diverticulosis, ischemic bowel, pancreatitis, hepatitis, UTI, gastroenteritis, AAA, incarcerated hernia, bowel obstruction, constipation, inflammatory bowel, hepatitis, peptic ulcer disease, splenic infarction, perforated viscus, testicular torsion, this is not meant to be an all-inclusive list EKG interpreted by me (3pts min.). @ -As above X-rays interpreted by me (1pt min.). @Personally reviewed this x-ray, I see no evidence of cardiomegaly, consolidations or pleural effusions I agree with radiologist interpretation, personally reviewed x-ray KUB showed no evidence of free air, volvulus or obstruction CT interpreted by me (1pt min.). @ -None done U/S interpreted by me (1pt. min.). @ -None done What testing was considered but not performed or refused? (CT, X-rays, U/S, labs)? Why? CT abdomen/pelvis was considered however patient has had multiple presentations for the same symptoms with recent negative imaging, abdominal exam is benign What meds were considered but not given or refused? Why? @ -None Did you discuss the management of the patient with other professionals (professionals i.e. , PA, COLOR MAKER, lab, RT, psych nurse, social sciences research scientist, pole incisor operator, teacher, chief creative officer, insurance case manager)? Give summary @ -No Was smoking cessation discussed for >3mins.? @ -No Was critical care preformed (if so, how long)? @ -No Were there social determinants of health that impacted care today? How? (Homelessness, low income, unemployed, alcoholism, drug addiction, transportation, low edu. Level, literacy, decrease access to med. care, group home, rehab)? @ -No Was there de-escalation of care discussed even if they declined (Discuss DNR or withdrawal of care, Hospice)? @ -No What co-morbidities impacted this encounter? (DM, HTN, Smoking, COPD, CAD, Cancer, CVA, ARF, Chemo, Hep., AIDS, mental health diagnosis, sleep apnea, morbid obesity)? @Cyclic vomiting syndrome Was patient admitted / discharged? Hospital course, mention meds given and route, prescriptions, significant lab abnormalities, going to OR and other pertinent info. @ -Admission- patient is a 68-year-old gentleman history cyclic vomiting syndrome presenting today for nausea vomiting and concern for dehydration.Patient is tachycardic on arrival pulse at 137 bpm, blood pressure 123/104, respiratory rate 20, pulse ox 97% temp 98 degrees. Patient does technically meet SIRS criteria however patient's signs and symptoms are similar to prior cyclic vomiting episodes per patient and roommate, patient is currently afebrile and nontoxic-appearing therefore this time we will withhold blood cultures and antibiotics. Reviewed EKG does appear to show small ST depressions in lead V4 V5, however patient denies any chest pain or shortness of breath at this time. No history ACS. Patient does have dry mucous membranes, otherwise abdominal exam is benign. Plan for x-ray KUB, comprehensive labs, magnesium, phosphorus levels, urinalysis, nausea control, IV fluids. Labs signfiicant for mild hypernatremia w/ sodium 149 and hypermag, mag 2.4, I suspect this is due to dehydration. Patient ultimately will be admitted for intractable nausea and vomiting, additionally elevated troponin. Updated patient findings and discussed plan of care. Heparin administration was considered however patient had no chest pain or shortness of breath and repeat troponin down trended therefore heparin was ultimately not given. Case was discussed with Dr. Phillips who kindly accepted patient for admission Undiagnosed new problem with uncertain prognosis? @ -No Drug Therapy requiring intensive monitoring for toxicity (Heparin, Nitro, Insulin, Cardizem)? @ -No Were any procedures done? @ -No Diagnosis/symptom? Intractable nausea and vomiting, troponin elevation Acute, or Chronic, or Acute on Chronic? @Acute Uncomplicated (without systemic symptoms) or Complicated (systemic symptoms)? Complicated Side effects of treatment? @ -No Exacerbation, Progression, or Severe Exacerbation? @ -No Poses a threat to life or bodily function? How? (Chest pain, USA, NV, pneumonia, PE, COPD, DKA, ARF, appy, cholecystitis, CVA, Diverticulitis, Homicidal, Suicidal, threat to staff... and all critical care pts) @Yes, if intractable nausea and vomiting left unaddressed would lead to worseni ng dehydration potentially severe electrolyte derangements and malnutrition - Lab Data Result diagrams: 08/31/24 08:15 08/31/24 08:15 Lab Results 08/28/24 08/28/24 08/28/24 Range/Units 13:16 13:16 13:16 WBC 10.9 H (3.8-10.6) k/uL RBC 5.72 (4.30-5.90) m/uL Hgb 16.7 (13.0-17.5) gm/dL Hct 52.6 (39.0-53.0) % MCV 92.0 (80.0-100.0) fL MCH 29.2 (25.0-35.0) pg MCHC 31.8 (31.0-37.0) g/dL RDW 17.5 H (11.5-15.5) % Plt Count 400 (150-450) k/uL MPV 9.5 Neutrophils % 85 % Lymphocytes % 10 % Monocytes % 4 % Eosinophils % 0 % Basophils % 0 % Neutrophils # 9.2 H (1.3-7.7) k/uL Lymphocytes # 1.1 (1.0-4.8) k/uL Monocytes # 0.5 (0-1.0) k/uL Eosinophils # 0.0 (0-0.7) k/uL Basophils # 0.0 (0-0.2) k/uL Anisocytosis Slight PT (10.0-12.5) sec INR (<1.2) APTT (22.0-30.0) sec Sodium 149 H (137-145) mmol/L Potassium 3.9 (3.5-5.1) mmol/L Chloride 106 (98-107) mmol/L Carbon Dioxide 28 (22-30) mmol/L Anion Gap 15 mmol/L BUN 26 H (9-20) mg/dL Creatinine 0.95 (0.66-1.25) mg/dL Est GFR (CKD-EPI)AfAm >90 (>60 ml/min/1.73 sqM) Est GFR (CKD-EPI)NonAf 83 (>60 ml/min/1.73 sqM) Glucose 148 H (74-99) mg/dL Estimated Ave Glu mg/dL mg/dL Hemoglobin A1c (<=6.0) % Calcium 9.3 (8.4-10.2) mg/dL Phosphorus 4.3 (2.5-4.5) mg/dL Magnesium 2.4 H (1.6-2.3) mg/dL Total Bilirubin 0.8 (0.2-1.3) mg/dL AST 73 H (17-59) U/L ALT 44 (4-49) U/L Alkaline Phosphatase 144 H (38-126) U/L Troponin I 0.143 H* (0.000-0.034) ng/mL Total Protein 6.5 (6.3-8.2) g/dL Albumin 3.8 (3.5-5.0) g/dL Amylase 102 (30-110) U/L Lipase 62 (23-300) U/L Urine Color Urine Appearance (Clear) Urine pH (5.0-8.0) Ur Specific [place] (1.001-1.035) Urine Protein (Negative) Urine Glucose (UA) (Negative) Urine Ketones (Negative) Urine Blood (Negative) Urine Nitrite (Negative) Urine Bilirubin (Negative) Urine Urobilinogen (<2.0) mg/dL Ur Leukocyte Esterase (Negative) Urine RBC (0-5) /hpf Urine WBC (0-5) /hpf Ur Squamous Epith Cells (0-4) /hpf Hyaline Casts (0-2) /lpf Urine Mucus (None) /hpf Urine Opiates Screen (NotDetected) Ur Oxycodone Screen (NotDetected) Urine Methadone Screen (NotDetected) Ur Barbiturates Screen (NotDetected) U Tricyclic Antidepress (NotDetected) Ur Phencyclidine Scrn (NotDetected) Ur Amphetamines Screen (NotDetected) U Methamphetamines Scrn (NotDetected) U Benzodiazepines Scrn (NotDetected) Urine Cocaine Screen (NotDetected) U Marijuana (THC) Screen (NotDetected) Influenza Type A (PCR) (Not Detectd) Influenza Type B (PCR) (Not Detectd) RSV (PCR) (Not Detectd) SARS-CoV-2 (PCR) (Not Detectd) 08/28/24 08/28/24 08/28/24 Range/Units 13:16 13:16 14:21 WBC (3.8-10.6) k/uL RBC (4.30-5.90) m/uL Hgb (13.0-17.5) gm/dL Hct (39.0-53.0) % MCV (80.0-100.0) fL MCH (25.0-35.0) pg MCHC (31.0-37.0) g/dL RDW (11.5-15.5) % Plt Count (150-450) k/uL MPV Neutrophils % % Lymphocytes % % Monocytes % % Eosinophils % % Basophils % % Neutrophils # (1.3-7.7) k/uL Lymphocytes # (1.0-4.8) k/uL Monocytes # (0-1.0) k/uL Eosinophils # (0-0.7) k/uL Basophils # (0-0.2) k/uL Anisocytosis PT 12.2 (10.0-12.5) sec INR 1.1 (<1.2) APTT 22.1 (22.0-30.0) sec Sodium (137-145) mmol/L Potassium (3.5-5.1) mmol/L Chloride (98-107) mmol/L Carbon Dioxide (22-30) mmol/L Anion Gap mmol/L BUN (9-20) mg/dL Creatinine (0.66-1.25) mg/dL Est GFR (CKD-EPI)AfAm (>60 ml/min/1.73 sqM) Est GFR (CKD-EPI)NonAf (>60 ml/min/1.73 sqM) Glucose (74-99) mg/dL Estimated Ave Glu mg/dL 143 mg/dL Hemoglobin A1c 6.6 H (<=6.0) % Calcium (8.4-10.2) mg/dL Phosphorus (2.5-4.5) mg/dL Magnesium (1.6-2.3) mg/dL Total Bilirubin (0.2-1.3) mg/dL AST (17-59) U/L ALT (4-49) U/L Alkaline Phosphatase (38-126) U/L Troponin I (0.000-0.034) ng/mL Total Protein (6.3-8.2) g/dL Albumin (3.5-5.0) g/dL Amylase (30-110) U/L Lipase (23-300) U/L Urine Color Urine Appearance (Clear) Urine pH (5.0-8.0) Ur Specific [place] (1.001-1.035) Urine Protein (Negative) Urine Glucose (UA) (Negative) Urine Ketones (Negative) Urine Blood (Negative) Urine Nitrite (Negative) Urine Bilirubin (Negative) Urine Urobilinogen (<2.0) mg/dL Ur Leukocyte Esterase (Negative) Urine RBC (0-5) /hpf Urine WBC (0-5) /hpf Ur Squamous Epith Cells (0-4) /hpf Hyaline Casts (0-2) /lpf Urine Mucus (None) /hpf Urine Opiates Screen (NotDetected) Ur Oxycodone Screen (NotDetected) Urine Methadone Screen (NotDetected) Ur Barbiturates Screen (NotDetected) U Tricyclic Antidepress (NotDetected) Ur Phencyclidine Scrn (NotDetected) Ur Amphetamines Screen (NotDetected) U Methamphetamines Scrn (NotDetected) U Benzodiazepines Scrn (NotDetected) Urine Cocaine Screen (NotDetected) U Marijuana (THC) Screen (NotDetected) Influenza Type A (PCR) Not Detected (Not Detectd) Influenza Type B (PCR) Not Detected (Not Detectd) RSV (PCR) Not Detected (Not Detectd) SARS-CoV-2 (PCR) Not Detected (Not Detectd) 08/28/24 08/28/24 08/28/24 Range/Units 16:47 16:53 16:53 WBC (3.8-10.6) k/uL RBC (4.30-5.90) m/uL Hgb (13.0-17.5) gm/dL Hct (39.0-53.0) % MCV (80.0-100.0) fL MCH (25.0-35.0) pg MCHC (31.0-37.0) g/dL RDW (11.5-15.5) % Plt Count (150-450) k/uL MPV Neutrophils % % Lymphocytes % % Monocytes % % Eosinophils % % Basophils % % Neutrophils # (1.3-7.7) k/uL Lymphocytes # (1.0-4.8) k/uL Monocytes # (0-1.0) k/uL Eosinophils # (0-0.7) k/uL Basophils # (0-0.2) k/uL Anisocytosis PT (10.0-12.5) sec INR (<1.2) APTT (22.0-30.0) sec Sodium (137-145) mmol/L Potassium (3.5-5.1) mmol/L Chloride (98-107) mmol/L Carbon Dioxide (22-30) mmol/L Anion Gap mmol/L BUN (9-20) mg/dL Creatinine (0.66-1.25) mg/dL Est GFR (CKD-EPI)AfAm (>60 ml/min/1.73 sqM) Est GFR (CKD-EPI)NonAf (>60 ml/min/1.73 sqM) Glucose (74-99) mg/dL Estimated Ave Glu mg/dL mg/dL Hemoglobin A1c (<=6.0) % Calcium (8.4-10.2) mg/dL Phosphorus (2.5-4.5) mg/dL Magnesium (1.6-2.3) mg/dL Total Bilirubin (0.2-1.3) mg/dL AST (17-59) U/L ALT (4-49) U/L Alkaline Phosphatase (38-126) U/L Troponin I 0.115 H* (0.000-0.034) ng/mL Total Protein (6.3-8.2) g/dL Albumin (3.5-5.0) g/dL Amylase (30-110) U/L Lipase (23-300) U/L Urine Color Yellow Urine Appearance Clear (Clear) Urine pH 5.5 (5.0-8.0) Ur Specific [place] 1.027 (1.001-1.035) Urine Protein 1+ H (Negative) Urine Glucose (UA) Negative (Negative) Urine Ketones 1+ H (Negative) Urine Blood Negative (Negative) Urine Nitrite Negative (Negative) Urine Bilirubin 1+ H (Negative) Urine Urobilinogen 2.0 (<2.0) mg/dL Ur Leukocyte Esterase Negative (Negative) Urine RBC <1 (0-5) /hpf Urine WBC 1 (0-5) /hpf Ur Squamous Epith Cells <1 (0-4) /hpf Hyaline Casts 3 H (0-2) /lpf Urine Mucus Few H (None) /hpf Urine Opiates Screen Not Detected (NotDetected) Ur Oxycodone Screen Not Detected (NotDetected) Urine Methadone Screen Not Detected (NotDetected) Ur Barbiturates Screen Not Detected (NotDetected) U Tricyclic Antidepress Not Detected (NotDetected) Ur Phencyclidine Scrn Not Detected (NotDetected) Ur Amphetamines Screen Not Detected (NotDetected) U Methamphetamines Scrn Not Detected (NotDetected) U Benzodiazepines Scrn Not Detected (NotDetected) Urine Cocaine Screen Not Detected (NotDetected) U Marijuana (THC) Screen Detected H (NotDetected) Influenza Type A (PCR) (Not Detectd) Influenza Type B (PCR) (Not Detectd) RSV (PCR) (Not Detectd) SARS-CoV-2 (PCR) (Not Detectd) Disposition Clinical Impression: Intractable nausea and vomiting Disposition: ADMITTED IP TO THIS HOSP Condition: Stable
[2024-08-28 13:35] LABS: Anisocytosis Slight; Basophils % (A) 0 %; Eosinophils % (A) 0 %; HCT 52.6 % (39.0-53.0); HGB 16.7 gm/dL (13.0-17.5); Lymphocytes # (A) 1.1 k/uL (1.0-4.8); Lymphocytes % (A) 10 %; MCH 29.2 pg (25.0-35.0); MCHC 31.8 g/dL (31.0-37.0); Mean Platelet Volume 9.5; Monocytes # (A) 0.5 k/uL (0-1.0); Monocytes % (A) 4 %; Neutrophils # (A) 9.2 k/uL (1.3-7.7); Neutrophils % (A) 85 %; Platelet Count 400 k/uL (150-450); RBC 5.72 m/uL (4.30-5.90); RDW 17.5 % (11.5-15.5); WBC 10.9 k/uL (3.8-10.6)
[2024-08-28 13:52] LABS: AST 73 U/L (17-59); African American GFR (CKD) >90 (>60 ml/min/1.73 sqM); Albumin 3.8 g/dL (3.5-5.0); Alkaline Phosphatase 144 U/L (38-126); Amylase 102 U/L (30-110); Anion Gap 15 mmol/L; Blood Urea Nitrogen 26 mg/dL (9-20); Calcium 9.3 mg/dL (8.4-10.2); Carbon Dioxide 28 mmol/L (22-30); Chloride 106 mmol/L (98-107); Glucose 148 mg/dL (74-99); Lipase 62 U/L (23-300); Magnesium 2.4 mg/dL (1.6-2.3); Non-African American GFR(CKD) 83 (>60 ml/min/1.73 sqM); Phosphorus 4.3 mg/dL (2.5-4.5); Potassium 3.9 mmol/L (3.5-5.1); Sodium 149 mmol/L (137-145); Total Bilirubin 0.8 mg/dL (0.2-1.3); Total Protein 6.5 g/dL (6.3-8.2)
[2024-08-28 13:59] LABS: ALT 44 U/L (4-49)
[2024-08-28 14:11] LABS: Influenza A Not Detected (Not Detectd); Influenza B Not Detected (Not Detectd); RSV Not Detected (Not Detectd)
[2024-08-28] MEDS: PANTOPRAZOLE 40 MG/10 ML VIAL IVP STA (14:17)
[2024-08-28] MEDS: ONDANSETRON 4 MG/2 ML VIAL IVP STA (14:17)
[2024-08-28] MEDS: FAMOTIDINE 20 MG/2 ML VIAL IV STA (14:18)
[2024-08-28 14:51] LABS: INR 1.1 (<1.2); Partial Thromboplastin Time 22.1 sec (22.0-30.0); Prothrombin Time 12.2 sec (10.0-12.5)
--- NOTE | 2024-08-28 15:18 | XR ---
EXAMINATION TYPE: XR chest 2V DATE OF EXAM: 08/28/2024 3:05 PM COMPARISON: Chest radiographs from 08/07/2024 TECHNIQUE: XR chest 2V Frontal and lateral views of the chest. CLINICAL INDICATION:Male, 68 years old with history of EKG changes, n/v; FINDINGS: Lungs/Pleura: There is flattening of the diaphragm with increased lucency of the lungs. No evidence o f pneumothorax, pleural effusion or focal consolidation. Pulmonary vascularity: Unremarkable. Heart/mediastinum: Cardiomediastinal silhouette is unremarkable. Musculoskeletal: Multiple level degenerative disc disease changes seen throughout the spine. Bilatera l AC arthropathy with right AC joint cerclage wires. High riding bilateral humeral head suggesting ch ronic rotator cuff tears. IMPRESSION: 1. No acute cardiopulmonary disease process. 2. COPD changes. [facility], , 08/28/2024 3:16 PM
--- NOTE | 2024-08-28 15:20 | XR ---
EXAMINATION TYPE: XR KUB DATE OF EXAM: 08/28/2024 COMPARISON: KUB radiograph 01/17/2024, CT abdomen pelvis 07/29/2024 HISTORY: Nausea/vomiting, history of cyclic vomiting TECHNIQUE: Single upright KUB image of the abdomen is obtained FINDINGS: Small bowel demonstrates no evidence for dilatation or air fluid levels. Gas and fecal material is seen in non-distended colon. Most pronounced within the right colon. No convincing evidence for pneumoperitoneum. No unusual calcifications. Cholecystectomy clip in the right upper quadrant. The lung bases are clear. The osseous structures are intact. Multilevel degenerative disease with large left lateral L1-L2 oste ophyte. IMPRESSION: Overall nonobstructive bowel gas pattern. [facility], , 08/28/2024 3:18 PM
[2024-08-28] MEDS: SODIUM CHLORIDE 0.9% 2,000 ML IV STA (15:46)
[2024-08-28 17:07] LABS: Appearance,Urine Clear (Clear); Bilirubin,Urine 1+ (Negative); Blood,Urine Negative (Negative); Color,Urine Yellow; Glucose,Urine (UA) Negative (Negative); Hyaline Casts,Urine 3 /lpf (0-2); Ketones,Urine 1+ (Negative); Leukocyte Esterase,Urine Negative (Negative); Mucus,Urine Few /hpf; Nitrite,Urine Negative (Negative); PH, Urine 5.5 (5.0-8.0); Protein,Urine 1+ (Negative); RBC,Urine <1 /hpf (0-5); Specific Gravity,Urine 1.027 (1.001-1.035); Squamous Epithelial Cell,Urine <1 /hpf (0-4); WBC,Urine 1 /hpf (0-5)
[2024-08-28] MEDS: SODIUM CHLORIDE 0.9% 1,000 ML IV SCH (17:17)
[2024-08-28] MEDS: SODIUM CHLORIDE 0.9% 500 ML 500 ML IV ONE (17:18)
[2024-08-28] MEDS: diphenhydrAMINE 50 MG/ML 1 ML VIAL IVP STA (17:19)
[2024-08-28] MEDS: METOCLOPRAMIDE 5 MG/ML 2 ML VIAL IVP STA (17:20)
[2024-08-28] MEDS ORDERED: NALOXONE 0.4 MG/ML 1 ML VIAL IV PRN (17:58)
[2024-08-28] MEDS ORDERED: PROCHLORPERAZINE SUPPOSITORY 25 MG SUPP RECTAL PRN (17:58)
[2024-08-28] MEDS ORDERED: MORPHINE SULFATE 4 MG/ML SYRINGE IV PRN (17:58)
[2024-08-28] MEDS ORDERED: MAG HYDROX/AL HYDROX/SIMETH 30 ML CUP PO PRN (17:58)
[2024-08-28] MEDS: DEXTROSE 5%-0.45% NACL 1,000 ML IV SCH (20:34)
[2024-08-28] MEDS ORDERED: ALBUTEROL NEBULIZED 2.5 MG/3 ML INHALATION PRN (21:37)
[2024-08-29] MEDS: ONDANSETRON 4 MG/2 ML VIAL IVP PRN (00:55)
[2024-08-29] MEDS: METOPROLOL TARTRATE 25 MG TAB PO SCH (06:21)
[2024-08-29] MEDS: busPIRone HCl 5 MG TAB PO SCH (06:21)
[2024-08-29 07:23] LABS: Amphetamine Screen,Urine Not Detected (NotDetected); Barbiturate Screen,Urine Not Detected (NotDetected); Benzodiazepines Screen,Urine Not Detected (NotDetected); Cocaine Screen,Urine Not Detected (NotDetected); Methadone Screen, Urine Not Detected (NotDetected); Opiate Screen,Urine Not Detected (NotDetected); Oxycodone Screen, Urine Not Detected (NotDetected); Phencyclidine Screen,Urine Not Detected (NotDetected); Tricyclic Antidepressant,Urine Not Detected (NotDetected); Urn Cannabinoid Scrn Detected (NotDetected)
[2024-08-29] MEDS: PANTOPRAZOLE 40 MG/10 ML VIAL IV SCH (09:58)
[2024-08-29] MEDS: ENOXAPARIN 40 MG/0.4 ML SYRINGE SQ SCH (10:07)
[2024-08-29] MEDS: FOLIC ACID 1 MG TAB PO SCH (10:08)
[2024-08-29] MEDS: ATORVASTATIN 40 MG TAB PO SCH (10:08)
[2024-08-29] MEDS: SERTRALINE 25 MG TAB PO SCH (10:08)
[2024-08-29 11:43] LABS: African American GFR (CKD) >90 (>60 ml/min/1.73 sqM); Anion Gap 6 mmol/L; Blood Urea Nitrogen 15 mg/dL (9-20); Calcium 7.8 mg/dL (8.4-10.2); Carbon Dioxide 26 mmol/L (22-30); Chloride 114 mmol/L (98-107); Glucose 102 mg/dL (74-99); Non-African American GFR(CKD) >90 (>60 ml/min/1.73 sqM); Sodium 146 mmol/L (137-145)
[2024-08-29 11:48] LABS: Potassium 4.2 mmol/L (3.5-5.1)
[2024-08-29 12:28] LABS: Anisocytosis Slight; Basophils % (A) 0 %; Eosinophils % (A) 0 %; Lymphocytes # (A) 1.2 k/uL (1.0-4.8); Lymphocytes % (A) 11 %; MCH 29.6 pg (25.0-35.0); MCHC 32.1 g/dL (31.0-37.0); MCV 92.2 fL (80.0-100.0); Mean Platelet Volume 11.1; Monocytes # (A) 0.5 k/uL (0-1.0); Monocytes % (A) 4 %; Neutrophils # (A) 8.8 k/uL (1.3-7.7); Neutrophils % (A) 83 %; Platelet Count 256 k/uL (150-450); RBC 4.55 m/uL (4.30-5.90); RDW 17.6 % (11.5-15.5); WBC 10.6 k/uL (3.8-10.6)
[2024-08-29 12:32] LABS: HGB 13.5 gm/dL (13.0-17.5)
--- NOTE | 2024-08-29 13:19 | P.CRDCN ---
History of Present Illness Consult date: 08/29/24 History of present illness: The patient is a 68-year-old gentleman who is known to our service from before with a past medical history significant for hypertension and dyslipidemia and history of esophageal stricture with multiple dilatation before as well as chronic nausea and vomiting. The patient was admitted to the hospital with the nausea and vomiting associated with mild abdominal discomfort. No cardiovascular symptoms of any chest pain or chest discomfort or shortness of breath or syncope or presyncope or heart racing or fluttering. For some reason he ended having a troponin came to be mildly abnormal. The EKG showed sinus mechanism with T wave inversion globally concerning for underlying ischemia. Currently he is not having any chest pain or chest discomfort or shortness of breath and he never had any chest pain or chest discomfort or shortness of breath but he underwent a heart catheterization in 2018 showed normal coronaries but the echo from 2023 showed normal LV systolic function with no significant valvular abnormalities. He was seen by the GI service and he underwent yesterday and EGD with dilatation of the esophageal for esophageal stricture. The physical examination is remarkable for regular rhythm with a soft systolic murmur at the right upper sternal border with diminished breathing sounds bilaterally and no edema was noted in the lower extremities Assessment Nausea and vomiting Difficulty swallowing Abnormal troponin Abnormal EKG Multiple comorbid conditions Plan Continue the current medical regimen Add aspirin and consider starting the patient on heparin if it is okay from the GI standpoint of view Obtain an echocardiogram for further risk stratification Follow-up with the patient Past Medical History Past Medical History: Asthma, Coronary Artery Disease (CAD), Chest Pain / Angina, CVA/TIA, GERD/Reflux, Hyperlipidemia, Hypertension, Pneumonia, Rheumatoid Arthritis (RA) Additional Past Medical History / Comment(s): MIGRAINES, HEART MURMUR, hx HIATAL HERNIA, ANEMIA, one dr told him he had a stroke at one time-no effects, varicose veins, history of incarcerated per esophageal hernia, status post robotic-assisted paraesophageal hernia repair and Frederick fundoplication on 04/12/2022. History of Any Multi-Drug Resistant Organisms: None Reported Past Surgical History: Cholecystectomy, Heart Catheterization, Hernia Repair, Orthopedic Surgery Additional Past Surgical History / Comment(s): Lt achilles tendon,RT SHOULDER surgery, RT ACHILLES TENDON reattached, HEMORRHOIDECTOMY, 13 FATTY TUMORS removed. left hand index finger surgery after injury, EGD WITH DILATION, paraesophageal hernia repair with Frederick fundoplication on 04/12/2022. PEG tube Past Anesthesia/Blood Transfusion Reactions: No Reported Reaction Additional Past Anesthesia/Blood Transfusion Reaction / Comment(s): no hx blood transfusion Past Psychological History: Anxiety, Depression Smoking Status: Former smoker Past Alcohol Use History: None Reported Past Drug Use History: Marijuana - Past Family History Mother Family Medical History: Cancer Father Additional Family Medical History / Comment(s): thinks aneurysm Medications and Allergies Home Medications Medication Instructions Recorded Confirmed Type Albuterol Sulfate [Albuterol 2 puff PO RT-Q4H PRN 07/30/24 08/28/24 History Sulfate Hfa] Ferrous Sulfate [Iron (65 MG 325 mg PO DAILY 07/30/24 08/28/24 History Elemental)] Metoprolol Tartrate [Lopressor] 25 mg PO BID-W/MEALS 07/30/24 08/28/24 History Nitroglycerin Sl Tabs [Nitrostat] 0.4 mg SUBLINGUAL Q5M PRN 07/30/24 08/28/24 History Pantoprazole [Protonix] 40 mg PO DAILY 07/30/24 08/28/24 History Sertraline [Zoloft] 25 mg PO DAILY 07/30/24 08/28/24 History busPIRone HCL [Buspar] 7.5 mg PO BID-W/MEALS 07/30/24 08/28/24 History Ondansetron [Zofran] 4 mg PO Q8HR PRN #21 tab 08/12/24 08/28/24 Rx Acetaminophen Tab [Tylenol] 650 mg PO Q6H PRN 08/28/24 08/28/24 History Atorvastatin [Lipitor] 40 mg PO DAILY 08/28/24 08/28/24 History Folic Acid 1 mg PO DAILY 08/28/24 08/28/24 History Magnesium Oxide [Mag-Ox] See Taper PO DAILY 08/28/24 08/28/24 History Multivitamins, Thera [Multivitamin 1 tab PO DAILY 08/28/24 08/28/24 History (formulary)] Thiamine [Vitamin B-1] 100 mg PO DAILY 08/28/24 08/28/24 History Allergies Allergy/AdvReac Type Severity Reaction Status Date / Time No Known Allergies Allergy Verified 08/28/24 14:49 Physical Exam Vitals: Vital Signs Temp Pulse Pulse Resp BP BP Pulse Ox 08/29/24 12:14 98.4 F 61 14 113/73 99 08/29/24 09:00 98.4 F 70 14 148/92 97 08/29/24 04:00 98 F 87 20 154/92 99 08/28/24 23:11 98.2 F 77 20 135/85 97 08/28/24 22:10 98.1 F 96 15 120/72 98 08/28/24 20:20 98 15 121/83 95 08/28/24 18:16 96 16 119/76 95 08/28/24 17:24 96 19 113/83 98 08/28/24 15:48 114 H 18 114/94 100 08/28/24 15:20 122 H 18 139/106 97 Intake and Output 08/28/24 08/29/24 08/29/24 22:59 06:59 14:59 Intake Total 1200 10 Output Total 300 Balance 1200 -290 Intake: IV 1200 10 Dextrose 5%-0.45% NaCl 1, 160 000 ml @ 20 mls/hr IV . Q24H [facility] Rx#:[id number] Invasive Line 1 10 Sodium Chloride 0.9% 1, 1040 000 ml @ 130 mls/hr IV . Q7H42M [facility] Rx#:[id number] Output: Urine 300 Other: Weight 58.967 kg 58.8 kg Results 08/29/24 10:32 08/29/24 10:32 Cardiac Enzymes 08/28/24 08/28/24 08/28/24 Range/Units 13:16 13:16 16:47 AST 73 H (17-59) U/L Troponin I 0.143 H* 0.115 H* (0.000-0.034) ng/mL 08/28/24 08/29/24 Range/Units 19:36 11:46 AST (17-59) U/L Troponin I 0.149 H* 0.087 H* (0.000-0.034) ng/mL Coagulation 08/28/24 Range/Units 14:21 PT 12.2 (10.0-12.5) sec APTT 22.1 (22.0-30.0) sec CBC 08/28/24 08/29/24 Range/Units 13:16 10:32 WBC 10.9 H 10.6 (3.8-10.6) k/uL RBC 5.72 4.55 (4.30-5.90) m/uL Hgb 16.7 13.5 D (13.0-17.5) gm/dL Hct 52.6 42.0 (39.0-53.0) % Plt Count 400 256 (150-450) k/uL Comprehensive Metabolic Panel 08/28/24 08/29/24 Range/Units 13:16 10:32 Sodium 149 H 146 H (137-145) mmol/L Potassium 3.9 4.2 (3.5-5.1) mmol/L Chloride 106 114 H (98-107) mmol/L Carbon Dioxide 28 26 (22-30) mmol/L BUN 26 H 15 (9-20) mg/dL Creatinine 0.95 0.61 L (0.66-1.25) mg/dL Glucose 148 H 102 H (74-99) mg/dL Calcium 9.3 7.8 L (8.4-10.2) mg/dL AST 73 H (17-59) U/L ALT 44 (4-49) U/L Alkaline Phosphatase 144 H (38-126) U/L Total Protein 6.5 (6.3-8.2) g/dL Albumin 3.8 (3.5-5.0) g/dL Current Medications Generic Name Dose Route Start Last Admin Trade Name Freq PRN Reason Stop Dose Admin Acetaminophen 650 mg 08/28/24 21:37 Acetaminophen Tab 325 Mg Tab PO Q6H PRN Mild Pain (Scale 1 to 3) Al Hydroxide/Mg Hydroxide 15 ml 08/28/24 17:58 Mag Hydrox/Al Hydrox/Simeth 30 Ml Cup PO Q6HR PRN Indigestion Albuterol Sulfate 2.5 mg 08/28/24 21:37 Albuterol Nebulized 2.5 Mg/3 Ml INHALATION RT-Q4H PRN Shortness Of Breath Atorvastatin Calcium 40 mg 08/29/24 09:00 08/29/24 10:08 Atorvastatin 40 Mg Tab PO 40 mg DAILY [facility] Administration Buspirone HCl 7.5 mg 08/29/24 07:30 08/29/24 06:21 Buspirone Hcl 5 Mg Tab PO 7.5 mg BID-W/MEALS [facility] Administration Calcium Carbonate/Glycine 1,000 mg 08/28/24 17:58 Calcium Carbonate 500 Mg Chewable PO Q4HR PRN Dyspepsia Enoxaparin Sodium 40 mg 08/29/24 09:00 08/29/24 10:07 Enoxaparin 40 Mg/0.4 Ml Syringe SQ 40 mg DAILY [facility] Administration Folic Acid 1 mg 08/29/24 09:00 08/29/24 10:08 Folic Acid 1 Mg Tab PO 1 mg DAILY [facility] Administration Hydromorphone HCl 0.5 mg 08/28/24 17:58 Hydromorphone 0.5 Mg/0.5 Ml Syringe IVP Q3HR PRN Moderate Pain (Scale 4 to 6) Sodium Chloride 1,000 mls @ 130 mls/hr 08/28/24 17:00 08/28/24 22:44 Saline 0.9% IV 130 mls/hr .Q7H42M [facility] Administration Dextrose/Sodium Chloride 1,000 mls @ 20 mls/hr 08/28/24 18:00 08/28/24 20:34 Dextrose 5%-1/2ns Iv Soln IV 20 mls/hr .Q24H [facility] Administration Metoprolol Tartrate 25 mg 08/29/24 07:30 08/29/24 06:21 Metoprolol Tartrate 25 Mg Tab PO 25 mg BID-W/MEALS [facility] Administration Morphine Sulfate 4 mg 08/28/24 17:58 Morphine Sulfate 4 Mg/Ml Syringe IV Q4HR PRN Severe Pain (Scale 7 to 10) Naloxone HCl 0.2 mg 08/28/24 17:58 Naloxone 0.4 Mg/Ml 1 Ml Vial IV Q2M PRN Opioid Reversal Ondansetron HCl 4 mg 08/28/24 17:58 08/29/24 09:54 Ondansetron 4 Mg/2 Ml Vial IVP 4 mg Q8HR PRN Administration Nausea And Vomiting Pantoprazole Sodium 40 mg 08/29/24 09:00 08/29/24 09:58 Pantoprazole 40 Mg/10 Ml Vial IV 40 mg DAILY [facility] Administration Prochlorperazine Maleate 25 mg 08/28/24 17:58 Prochlorperazine Suppository 25 Mg Supp RECTAL Q12HR PRN Nausea And Vomiting Sertraline HCl 25 mg 08/29/24 09:00 08/29/24 10:08 Sertraline 25 Mg Tab PO 25 mg DAILY [facility] Administration Thiamine HCl 100 mg 08/30/24 09:00 Thiamine 100 Mg Tab PO DAILY [facility] Intake and Output 08/28/24 08/29/24 08/29/24 22:59 06:59 14:59 Intake Total 1200 10 Output Total 300 Balance 1200 -290 Intake: IV 1200 10 Dextrose 5%-0.45% NaCl 1, 160 000 ml @ 20 mls/hr IV . Q24H [facility] Rx#:[id number] Invasive Line 1 10 Sodium Chloride 0.9% 1, 1040 000 ml @ 130 mls/hr IV . Q7H42M [facility] Rx#:[id number] Output: Urine 300 Other: Weight 58.967 kg 58.8 kg 08/29/24 10:32 08/29/24 10:32
[2024-08-29] MEDS ORDERED: HEPARIN SODIUM 1,000 UN/ML (10ML VL) IV PRN (13:22)
[2024-08-29 15:06] LABS: Anisocytosis Slight; Basophils % (A) 0 %; Eosinophils % (A) 0 %; HCT 49.6 % (39.0-53.0); HGB 15.3 gm/dL (13.0-17.5); Hypochromasia Slight; Lymphocytes # (A) 0.9 k/uL (1.0-4.8); Lymphocytes % (A) 11 %; MCH 29.7 pg (25.0-35.0); MCHC 30.8 g/dL (31.0-37.0); MCV 96.5 fL (80.0-100.0); Macrocytosis Slight; Mean Platelet Volume 9.5; Monocytes # (A) 0.3 k/uL (0-1.0); Monocytes % (A) 4 %; Neutrophils # (A) 6.8 k/uL (1.3-7.7); Neutrophils % (A) 83 %; Platelet Count 251 k/uL (150-450); RBC 5.14 m/uL (4.30-5.90); RDW 17.6 % (11.5-15.5); WBC 8.1 k/uL (3.8-10.6)
[2024-08-29 15:18] LABS: INR 1.5 (<1.2); Partial Thromboplastin Time 24.9 sec (22.0-30.0); Prothrombin Time 15.5 sec (10.0-12.5)
[2024-08-29] MEDS: HEPARIN SODIUM 1,000 UN/ML (10ML VL) IV ONE (15:39)
[2024-08-29] MEDS: HEPARIN SOD,PORK IN 0.45% NACL 25,000 UNIT in 0.45% NACL 1 250ML.BAG IV SCH (15:40)
--- NOTE | 2024-08-29 17:17 | P.GSHP ---
History of Present Illness H&P Date: 08/29/24 Chief Complaint: Intractable vomiting 68-year-old male with history of frequent vomiting hospitalized for dehydration secondary to frequent vomiting. Was here earlier this month. Underwent upper endoscopy which showed no definite abnormalities. Patient apparently then went to [facility] between these 2 admissions. Unsure what studies were performed there. Patient had a robotic hiatal hernia repair with Frederick fundoplication April 2022 by thoracic surgery. Last year had a gastrostomy tube placed partly on the basis of dysphagia it sounds like. Patient's feeding tube was removed last fall. Per the nursing staff emesis today has been bilious however on admission it was nonbilious in description. Patient does use marijuana at times. Apparently not recently. CAT scan was performed last admission showing no evidence of obstruction. Some upper GI findings were noted which led to the upper endoscopy. Denies abdominal pain. - Review of Systems Comment: The patient denies any acute changes in vision or hearing, no chest pain or shortness of breath, no dysuria or hematuria, no headache, no runny nose, no rectal bleeding or melena, no unexplained weight loss Past Medical History Past Medical History: Asthma, Coronary Artery Disease (CAD), Chest Pain / Ang bety, CVA/TIA, GERD/Reflux, Hyperlipidemia, Hypertension, Pneumonia, Rheumatoid Arthritis (RA) Additional Past Medical History / Comment(s): MIGRAINES, HEART MURMUR, hx HIATAL HERNIA, ANEMIA, one dr told him he had a stroke at one time-no effects, varicose veins, history of incarcerated per esophageal hernia, status post robotic-assisted paraesophageal hernia repair and Frederick fundoplication on 04/12/2022. History of Any Multi-Drug Resistant Organisms: None Reported Past Surgical History: Cholecystectomy, Heart Catheterization, Hernia Repair, Orthopedic Surgery Additional Past Surgical History / Comment(s): Lt achilles tendon,RT SHOULDER surgery, RT ACHILLES TENDON reattached, HEMORRHOIDECTOMY, 13 FATTY TUMORS removed. left hand index finger surgery after injury, EGD WITH DILATION, paraeso phageal hernia repair with Frederick fundoplication on 04/12/2022. PEG tube Past Anesthesia/Blood Transfusion Reactions: No Reported Reaction Additional Past Anesthesia/Blood Transfusion Reaction / Comment(s): no hx blood transfusion Past Psychological History: Anxiety, Depression Smoking Status: Former smoker Past Alcohol Use History: None Reported Past Drug Use History: Marijuana - Past Family History Mother Family Medical History: Cancer Father Additional Family Medical History / Comment(s): thinks aneurysm Medications and Allergies Home Medications Medication Instructions Recorded Confirmed Type Albuterol Sulfate [Albuterol 2 puff PO RT-Q4H PRN 07/30/24 08/28/24 History Sulfate Hfa] Ferrous Sulfate [Iron (65 MG 325 mg PO DAILY 07/30/24 08/28/24 History Elemental)] Metoprolol Tartrate [Lopressor] 25 mg PO BID-W/MEALS 07/30/24 08/28/24 History Nitroglycerin Sl Tabs [Nitrostat] 0.4 mg SUBLINGUAL Q5M PRN 07/30/24 08/28/24 History Pantoprazole [Protonix] 40 mg PO DAILY 07/30/24 08/28/24 History Sertraline [Zoloft] 25 mg PO DAILY 07/30/24 08/28/24 History busPIRone HCL [Buspar] 7.5 mg PO BID-W/MEALS 07/30/24 08/28/24 History Ondansetron [Zofran] 4 mg PO Q8HR PRN #21 tab 08/12/24 08/28/24 Rx Acetaminophen Tab [Tylenol] 650 mg PO Q6H PRN 08/28/24 08/28/24 History Atorvastatin [Lipitor] 40 mg PO DAILY 08/28/24 08/28/24 History Folic Acid 1 mg PO DAILY 08/28/24 08/28/24 History Magnesium Oxide [Mag-Ox] See Taper PO DAILY 08/28/24 08/28/24 History Multivitamins, Thera [Multivitamin 1 tab PO DAILY 08/28/24 08/28/24 History (formulary)] Thiamine [Vitamin B-1] 100 mg PO DAILY 08/28/24 08/28/24 History Allergies Allergy/AdvReac Type Severity Reaction Status Date / Time No Known Allergies Allergy Verified 08/28/24 14:49 Surgical - Exam Vital Signs Temp Pulse Resp BP Pulse Ox 98.0 F 137 H 20 123/104 97 08/28/24 12:43 08/28/24 12:43 08/28/24 12:43 08/28/24 12:43 08/28/24 12:43 Physical exam: General: Well-developed, well-nourished HEENT: Normocephalic, sclerae nonicteric Abdomen: Nontender, nondistended Extremities: No edema Neuro: Alert and oriented Results - Labs 08/29/24 14:53 08/29/24 10:32 Abnormal Lab Results - Last 24 Hours (Table) 08/28/24 08/28/24 08/28/24 Range/Units 13:16 16:47 16:53 MCHC (31.0-37.0) g/dL RDW (11.5-15.5) % Neutrophils # (1.3-7.7) k/uL Lymphocytes # (1.0-4.8) k/uL PT (10.0-12.5) sec INR (<1.2) Sodium (137-145) mmol/L Chloride (98-107) mmol/L Creatinine (0.66-1.25) mg/dL Glucose (74-99) mg/dL Hemoglobin A1c 6.6 H (<=6.0) % Calcium (8.4-10.2) mg/dL Troponin I 0.115 H* (0.000-0.034) ng/mL U Marijuana (THC) Screen Detected H (NotDetected) 08/28/24 08/29/24 08/29/24 Range/Units 19:36 10:32 10:32 MCHC (31.0-37.0) g/dL RDW 17.6 H (11.5-15.5) % Neutrophils # 8.8 H (1.3-7.7) k/uL Lymphocytes # (1.0-4.8) k/uL PT (10.0-12.5) sec INR (<1.2) Sodium 146 H (137-145) mmol/L Chloride 114 H (98-107) mmol/L Creatinine 0.61 L (0.66-1.25) mg/dL Glucose 102 H (74-99) mg/dL Hemoglobin A1c (<=6.0) % Calcium 7.8 L (8.4-10.2) mg/dL Troponin I 0.149 H* (0.000-0.034) ng/mL U Marijuana (THC) Screen (NotDetected) 08/29/24 08/29/24 08/29/24 Range/Units 11:46 14:53 14:53 MCHC 30.8 L (31.0-37.0) g/dL RDW 17.6 H (11.5-15.5) % Neutrophils # (1.3-7.7) k/uL Lymphocytes # 0.9 L (1.0-4.8) k/uL PT 15.5 H (10.0-12.5) sec INR 1.5 H (<1.2) Sodium (137-145) mmol/L Chloride (98-107) mmol/L Creatinine (0.66-1.25) mg/dL Glucose (74-99) mg/dL Hemoglobin A1c (<=6.0) % Calcium (8.4-10.2) mg/dL Troponin I 0.087 H* (0.000-0.034) ng/mL U Marijuana (THC) Screen (NotDetected) Diabetes panel 08/28/24 08/29/24 Range/Units 13:16 10:32 Sodium 146 H (137-145) mmol/L Potassium 4.2 (3.5-5.1) mmol/L Chloride 114 H (98-107) mmol/L Carbon Dioxide 26 (22-30) mmol/L BUN 15 (9-20) mg/dL Creatinine 0.61 L (0.66-1.25) mg/dL Glucose 102 H (74-99) mg/dL Hemoglobin A1c 6.6 H (<=6.0) % Calcium 7.8 L (8.4-10.2) mg/dL Thyroid panel 08/29/24 Range/Units 10:32 TSH 1.220 (0.465-4.680) mIU/L Calcium panel 08/29/24 Range/Units 10:32 Calcium 7.8 L (8.4-10.2) mg/dL Pituitary panel 08/29/24 Range/Units 10:32 Sodium 146 H (137-145) mmol/L Potassium 4.2 (3.5-5.1) mmol/L Chloride 114 H (98-107) mmol/L Carbon Dioxide 26 (22-30) mmol/L BUN 15 (9-20) mg/dL Creatinine 0.61 L (0.66-1.25) mg/dL Glucose 102 H (74-99) mg/dL Calcium 7.8 L (8.4-10.2) mg/dL TSH 1.220 (0.465-4.680) mIU/L Adrenal panel 08/29/24 Range/Units 10:32 Sodium 146 H (137-145) mmol/L Potassium 4.2 (3.5-5.1) mmol/L Chloride 114 H (98-107) mmol/L Carbon Dioxide 26 (22-30) mmol/L BUN 15 (9-20) mg/dL Creatinine 0.61 L (0.66-1.25) mg/dL Glucose 102 H (74-99) mg/dL Calcium 7.8 L (8.4-10.2) mg/dL Assessment and Plan (1) Intractable nausea and vomiting Narrative/Plan: 68-year-old male with intractable nausea vomiting. Etiology unclear. Some of the emesis has been bilious per nursing staff. Will order small bowel series at this time. Current Visit: Yes Status: Acute Code(s): R11.2 - NAUSEA WITH VOMITING, UNSPECIFIED SNOMED Code(s): 128625409
--- NOTE | 2024-08-29 18:14 | P.HPIM ---
History of Present Illness H&P Date: 08/28/24 Chief Complaint: Nausea/Vomiting/Diarrhea 68-year-old gentleman past medical history of cyclic vomiting syndrome presenting today for "dehydration". History is limited as patient and friend at bedside seem exasperated by having to provide further history. Patient has required multiple hospital admissions for similar symptoms. Today symptoms are similar to prior. He has no abdominal pain, shortness of breath or chest pain. No fevers or chills. No diarrhea, hematochezia. No black or bloody stools. Prior abdominal surgeries include prior cholecystectomy and prior feeding tube placement. Patient's friend states patient had a G-tube placed last summer and was ultimately removed in February when patient was able to gain weight. This was done by Dr. Pavon. Patient was discharged just discharged like [facility] on 08/23/2024 when admitted earlier for similar symptoms. Patient's friend at bedside, with whom he lives, states that he has been vomi ting ever since discharge. He [place] taking Zofran, BuSpar, pantoprazole but is unable to keep any of his medications down. States patient was started on additional medications at time of discharge but however has not been able to keep any of them down due to nausea and vomiting. Emesis is nonbloody nonbilious. Of note patient has no history ACS, is a non-smoker, denies alcohol use. Infrequently uses marijuana, patient's friend at bedside states patient has not used marijuana recently. Blood work completed in ED reveals a WBC of 10.9, hemoglobin of 16.7 and platelet count of 400, sodium 149, potassium 3.9, BUNs/creatinine of 26/0.95, magnesium elevated at 2.4, AST slightly elevated at 73, troponin elevated at 0.149 UA is unremarkable Urine drug screen is positive for marijuana Review of Systems REVIEW OF SYSTEMS: CONSTITUTIONAL: No fever, no malaise, no fatigue. HEENT: No recent visual problems or hearing problems. Denied any sore throat. CARDIOVASCULAR: No chest pain, orthopnea, PND, no palpitations, no syncope. PULMONARY: No shortness of breath, no cough, no hemoptysis. GASTROINTESTINAL: No diarrhea, no nausea, no vomiting, no abdominal pain. NEUROLOGICAL: No headaches, no weakness, no numbness. HEMATOLOGICAL: Denies any bleeding or petechiae. GENITOURINARY: Denies any burning micturition, frequency, or urgency. MUSCULOSKELETAL/RHEUMATOLOGICAL: Denies any joint pain, swelling, or any muscle pain. ENDOCRINE: Denies any polyuria or polydipsia. The rest of the 14-point review of systems is negative. Past Medical History Past Medical History: Asthma, Coronary Artery Disease (CAD), Chest Pain / Angina, CVA/TIA, GERD/Reflux, Hyperlipidemia, Hypertension, Pneumonia, Rheumatoid Arthritis (RA) Additional Past Medical History / Comment(s): MIGRAINES, HEART MURMUR, hx HIATAL HERNIA, ANEMIA, one dr told him he had a stroke at one time-no effects, varicose veins, history of incarcerated per esophageal hernia, status post robotic-assisted paraesophageal hernia repair and Frederick fundoplication on 04/12/2022. History of Any Multi-Drug Resistant Organisms: None Reported Past Surgical History: Cholecystectomy, Heart Catheterization, Hernia Repair, Orthopedic Surgery Additional Past Surgical History / Comment(s): Lt achilles tendon,RT SHOULDER surgery, RT ACHILLES TENDON reattached, HEMORRHOIDECTOMY, 13 FATTY TUMORS removed. left hand index finger surgery after injury, EGD WITH DILATION, paraesophageal hernia repair with Frederick fundoplication on 04/12/2022. PEG tube Past Anesthesia/Blood Transfusion Reactions: No Reported Reaction Additional Past Anesthesia/Blood Transfusion Reaction / Comment(s): no hx blood transfusion Past Psychological History: Anxiety, Depression Smoking Status: Former smoker Past Alcohol Use History: None Reported Past Drug Use History: Marijuana - Past Family History Mother Family Medical History: Cancer Father Additional Family Medical History / Comment(s): thinks aneurysm Medications and Allergies Home Medications Medication Instructions Recorded Confirmed Type Albuterol Sulfate [Albuterol 2 puff PO RT-Q4H PRN 07/30/24 08/28/24 History Sulfate Hfa] Ferrous Sulfate [Iron (65 MG 325 mg PO DAILY 07/30/24 08/28/24 History Elemental)] Metoprolol Tartrate [Lopressor] 25 mg PO BID-W/MEALS 07/30/24 08/28/24 History Nitroglycerin Sl Tabs [Nitrostat] 0.4 mg SUBLINGUAL Q5M PRN 07/30/24 08/28/24 History Pantoprazole [Protonix] 40 mg PO DAILY 07/30/24 08/28/24 History Sertraline [Zoloft] 25 mg PO DAILY 07/30/24 08/28/24 History busPIRone HCL [Buspar] 7.5 mg PO BID-W/MEALS 07/30/24 08/28/24 History Ondansetron [Zofran] 4 mg PO Q8HR PRN #21 tab 08/12/24 08/28/24 Rx Acetaminophen Tab [Tylenol] 650 mg PO Q6H PRN 08/28/24 08/28/24 History Atorvastatin [Lipitor] 40 mg PO DAILY 08/28/24 08/28/24 History Folic Acid 1 mg PO DAILY 08/28/24 08/28/24 History Magnesium Oxide [Mag-Ox] See Taper PO DAILY 08/28/24 08/28/24 History Multivitamins, Thera [Multivitamin 1 tab PO DAILY 08/28/24 08/28/24 History (formulary)] Thiamine [Vitamin B-1] 100 mg PO DAILY 08/28/24 08/28/24 History Allergies Allergy/AdvReac Type Severity Reaction Status Date / Time No Known Allergies Allergy Verified 08/28/24 14:49 Physical Exam Vitals: Vital Signs Temp Pulse Resp BP Pulse Ox 08/28/24 18:16 96 16 119/76 95 08/28/24 17:24 96 19 113/83 98 08/28/24 15:48 114 H 18 114/94 100 08/28/24 15:20 122 H 18 139/106 97 08/28/24 12:43 98.0 F 137 H 20 123/104 97 Intake and Output 08/28/24 08/28/24 08/28/24 06:59 14:59 22:59 Other: Weight 58.967 kg CONSTITUTIONAL: No apparent distress, chronically ill-appearing, nontoxic SKIN: Warm, dry, no jaundice, hives or petechiae EYES: Pupils are equally round, extraocular movements intact without nystagmus, clear conjunctiva, non-icteric sclera HENT: Normocephalic, atraumatic, dry mucus membranes, oropharynx clear without exudates NECK: , Full range of motion, normal appearance PULMONARY: Clear to auscultation without wheezes, rhonchi, or rales, normal excursion, no accessory muscle use and no stridor CARDIOVASCULAR: Regular rate, rhythm, normal S1 and S2. No appreciated murmurs, rubs or gallops. Strong radial pulses with intact distal perfusion. No lower extremity edema GASTROINTESTINAL: Soft, active bowel sounds throughout, non-tender, non- distended, no palpable masses, no rebound or guarding. No hepatosplenomegaly MUSCULOSKELETAL: Extremities have no gross deformity, no edema, redness, or swelling. No calf swelling NEUROLOGIC:_a/o x 3, GCS 15, normal mentation and speech. Moves all extremities x 4 without motor or sensory deficit PSYCHIATRIC:_normal mood and affect, thought process is clear and linear Results CBC & Chem 7: 08/29/24 14:53 08/29/24 10:32 Labs: Abnormal Lab Results - Last 24 Hours (Table) 08/28/24 08/28/24 08/28/24 Range/Units 13:16 13:16 13:16 WBC 10.9 H (3.8-10.6) k/uL RDW 17.5 H (11.5-15.5) % Neutrophils # 9.2 H (1.3-7.7) k/uL Sodium 149 H (137-145) mmol/L BUN 26 H (9-20) mg/dL Glucose 148 H (74-99) mg/dL Magnesium 2.4 H (1.6-2.3) mg/dL AST 73 H (17-59) U/L Alkaline Phosphatase 144 H (38-126) U/L Troponin I 0.143 H* (0.000-0.034) ng/mL Urine Protein (Negative) Urine Ketones (Negative) Urine Bilirubin (Negative) Hyaline Casts (0-2) /lpf Urine Mucus (None) /hpf 08/28/24 08/28/24 Range/Units 16:47 16:53 WBC (3.8-10.6) k/uL RDW (11.5-15.5) % Neutrophils # (1.3-7.7) k/uL Sodium (137-145) mmol/L BUN (9-20) mg/dL Glucose (74-99) mg/dL Magnesium (1.6-2.3) mg/dL AST (17-59) U/L Alkaline Phosphatase (38-126) U/L Troponin I 0.115 H* (0.000-0.034) ng/mL Urine Protein 1+ H (Negative) Urine Ketones 1+ H (Negative) Urine Bilirubin 1+ H (Negative) Hyaline Casts 3 H (0-2) /lpf Urine Mucus Few H (None) /hpf Assessment and Plan Assessment: 1. Elevated troponin -Patient denies any complaint of chest pain; initial troponin at the time of admission up at 1.15; patient continues to deny any chest pain - EKG showed sinus mechanism with T wave inversion globally concerning for underlying ischemia. -- We will continue to trend troponin; monitor EKG -Recommend 2D echo Consult cardiology 2. Intractable nausea and vomiting; likely cyclic vomiting syndrome -Patient remains on IV fluid; Protonix 40 mg daily - symptomatic treatment for nausea and vomiting -Monitor electrolytes and renal function 3. Mild transaminitis; likely related to intractable vomiting -We will monitor liver enzymes periodically 5. Hyperlipidemia; Lipitor 40 mg p.o. nightly 6. Hypertension; metoprolol 25 mg twice daily 7. Anxiety/depression; BuSpar 7.5 mg twice daily; Zoloft 25 mg daily DVT prophylaxis; SCDs CODE STATUS; full code
--- NOTE | 2024-08-29 18:16 | P.PN ---
Subjective Progress Note Date: 08/29/24 68-year-old gentleman past medical history of cyclic vomiting syndrome presenting today for "dehydration". History is limited as patient and friend at bedside seem exasperated by having to provide further history. Patient has required multiple hospital admissions for similar symptoms. Today symptoms are similar to prior. He has no abdominal pain, shortness of breath or chest pain. No fevers or chills. No diarrhea, hematochezia. No black or bloody stools. Prior abdominal surgeries include prior cholecystectomy and prior feeding tube placement. Patient's friend states patient had a G-tube placed last summer and was ultimately removed in February when patient was able to gain weight. This was done by Dr. Pavon. Patient was discharged just discharged like [facility] on 08/23/2024 when admitted earlier for similar symptoms. Patient's friend at bedside, with whom he lives, states that he has been vomiting ever since discharge. He [place] taking Zofran, BuSpar, pantoprazole but is unable to keep any of his medications down. States patient was started on additional medications at time of discharge but however has not been able to keep any of them down due to nausea and vomiting. Emesis is nonbloody nonbilious. Of note patient has no history ACS, is a non-smoker, denies alcohol use. Infrequently uses marijuana, patient's friend at bedside states patient has not used marijuana recently. Blood work completed in ED reveals a WBC of 10.9, hemoglobin of 16.7 and sonu telet count of 400, sodium 149, potassium 3.9, BUNs/creatinine of 26/0.95, magnesium elevated at 2.4, AST slightly elevated at 73, troponin elevated at 0.149 UA is unremarkable Urine drug screen is positive for marijuana Objective - Vital Signs Vital signs: Vital Signs Temp 98.4 F 08/29/24 09:00 Pulse 70 08/29/24 09:00 Resp 14 08/29/24 09:00 BP 148/92 08/29/24 09:00 Pulse Ox 97 08/29/24 09:00 FiO2 Intake & Output 08/28/24 08/29/24 08/29/24 18:59 06:59 18:59 Intake Total 1200 Output Total 300 Balance 1200 -300 Weight 58.967 kg 58.8 kg Intake: IV 1200 Dextrose 5%-0.45% NaCl 1, 160 000 ml @ 20 mls/hr IV . Q24H [facility] Rx#:[id number] Sodium Chloride 0.9% 1, 1040 000 ml @ 130 mls/hr IV . Q7H42M [facility] Rx#:[id number] Output: Urine 300 - Exam CONSTITUTIONAL: No apparent distress, chronically ill-appearing, nontoxic SKIN: Warm, dry, no jaundice, hives or petechiae EYES: Pupils are equally round, extraocular movements intact without nystagmus, clear conjunctiva, non-icteric sclera HENT: Normocephalic, atraumatic, dry mucus membranes, oropharynx clear without exudates NECK: , Full range of motion, normal appearance PULMONARY: Clear to auscultation without wheezes, rhonchi, or rales, normal excursion, no accessory muscle use and no stridor CARDIOVASCULAR: Regular rate, rhythm, normal S1 and S2. No appreciated murmurs, rubs or gallops. Strong radial pulses with intact distal perfusion. No lower extremity edema GASTROINTESTINAL: Soft, active bowel sounds throughout, non-tender, non- distended, no palpable masses, no rebound or guarding. No hepatosplenomegaly MUSCULOSKELETAL: Extremities have no gross deformity, no edema, redness, or swelling. No calf swelling NEUROLOGIC:_a/o x 3, GCS 15, normal mentation and speech. Moves all extremities x 4 without motor or sensory deficit PSYCHIATRIC:_normal mood and affect, thought process is clear and linear - Labs CBC & Chem 7: 08/29/24 14:53 08/29/24 10:32 Labs: Abnormal Lab Results - Last 24 Hours (Table) 08/28/24 08/28/24 08/28/24 Range/Units 13:16 13:16 13:16 WBC 10.9 H (3.8-10.6) k/uL RDW 17.5 H (11.5-15.5) % Neutrophils # 9.2 H (1.3-7.7) k/uL Sodium 149 H (137-145) mmol/L BUN 26 H (9-20) mg/dL Glucose 148 H (74-99) mg/dL Magnesium 2.4 H (1.6-2.3) mg/dL AST 73 H (17-59) U/L Alkaline Phosphatase 144 H (38-126) U/L Troponin I 0.143 H* (0.000-0.034) ng/mL Urine Protein (Negative) Urine Ketones (Negative) Urine Bilirubin (Negative) Hyaline Casts (0-2) /lpf Urine Mucus (None) /hpf U Marijuana (THC) Screen (NotDetected) 08/28/24 08/28/24 08/28/24 Range/Units 16:47 16:53 16:53 WBC (3.8-10.6) k/uL RDW (11.5-15.5) % Neutrophils # (1.3-7.7) k/uL Sodium (137-145) mmol/L BUN (9-20) mg/dL Glucose (74-99) mg/dL Magnesium (1.6-2.3) mg/dL AST (17-59) U/L Alkaline Phosphatase (38-126) U/L Troponin I 0.115 H* (0.000-0.034) ng/mL Urine Protein 1+ H (Negative) Urine Ketones 1+ H (Negative) Urine Bilirubin 1+ H (Negative) Hyaline Casts 3 H (0-2) /lpf Urine Mucus Few H (None) /hpf U Marijuana (THC) Screen Detected H (NotDetected) 08/28/24 Range/Units 19:36 WBC (3.8-10.6) k/uL RDW (11.5-15.5) % Neutrophils # (1.3-7.7) k/uL Sodium (137-145) mmol/L BUN (9-20) mg/dL Glucose (74-99) mg/dL Magnesium (1.6-2.3) mg/dL AST (17-59) U/L Alkaline Phosphatase (38-126) U/L Troponin I 0.149 H* (0.000-0.034) ng/mL Urine Protein (Negative) Urine Ketones (Negative) Urine Bilirubin (Negative) Hyaline Casts (0-2) /lpf Urine Mucus (None) /hpf U Marijuana (THC) Screen (NotDetected) Assessment and Plan Assessment: 1. Elevated troponin -Patient denies any complaint of chest pain; initial troponin at the time of admission up at 1.15; patient continues to deny any chest pain - EKG showed sinus mechanism with T wave inversion globally concerning for underlying ischemia. -- We will continue to trend troponin; monitor EKG -Recommend 2D echo Consult cardiology 2. Intractable nausea and vomiting; likely cyclic vomiting syndrome -Patient remains on IV fluid; Protonix 40 mg daily - symptomatic treatment for nausea and vomiting -Monitor electrolytes and renal function 3. Mild transaminitis; likely related to intractable vomiting -We will monitor liver enzymes periodically 5. Hyperlipidemia; Lipitor 40 mg p.o. nightly 6. Hypertension; metoprolol 25 mg twice daily 7. Anxiety/depression; BuSpar 7.5 mg twice daily; Zoloft 25 mg daily DVT prophylaxis; SCDs CODE STATUS; full code
[2024-08-29] MEDS: HYDROmorphone 0.5 MG/0.5 ML SYRINGE IVP PRN (20:13)
[2024-08-30 07:36] LABS: INR 1.4 (<1.2)
[2024-08-30 07:38] LABS: Anisocytosis Slight; Basophils % (A) 0 %; Eosinophils # (A) 0.1 k/uL (0-0.7); Eosinophils % (A) 1 %; HCT 41.1 % (39.0-53.0); HGB 12.8 gm/dL (13.0-17.5); Hypochromasia Moderate; Lymphocytes # (A) 1.1 k/uL (1.0-4.8); Lymphocytes % (A) 16 %; MCH 29.4 pg (25.0-35.0); MCHC 31.1 g/dL (31.0-37.0); MCV 94.5 fL (80.0-100.0); Mean Platelet Volume 10.8; Monocytes # (A) 0.3 k/uL (0-1.0); Monocytes % (A) 4 %; Neutrophils # (A) 5.3 k/uL (1.3-7.7); Neutrophils % (A) 78 %; Platelet Count 191 k/uL (150-450); RBC 4.35 m/uL (4.30-5.90); RDW 17.4 % (11.5-15.5); WBC 6.8 k/uL (3.8-10.6)
[2024-08-30 07:41] LABS: African American GFR (CKD) >90 (>60 ml/min/1.73 sqM); Anion Gap 7 mmol/L; Blood Urea Nitrogen 7 mg/dL (9-20); Calcium 7.5 mg/dL (8.4-10.2); Carbon Dioxide 27 mmol/L (22-30); Chloride 108 mmol/L (98-107); Glucose 84 mg/dL (74-99); Non-African American GFR(CKD) >90 (>60 ml/min/1.73 sqM); Sodium 142 mmol/L (137-145)
[2024-08-30 07:49] LABS: Potassium 2.7 mmol/L (3.5-5.1)
[2024-08-30] MEDS: THIAMINE 100 MG TAB PO SCH (09:23)
[2024-08-30] MEDS ORDERED: Potassium Replacement Protocol 1 EACH MISC MISCELLANE PRN (10:07)
--- NOTE | 2024-08-30 10:08 | P.PN ---
Subjective Progress Note Date: 08/30/24 The patient is a 68-year-old gentleman who is known to our service from before with a past medical history significant for hypertension and dyslipidemia and history of esophageal stricture with multiple dilatation before as well as chronic nausea and vomiting. The patient was admitted to the hospital with the nausea and vomiting associated with mild abdominal discomfort. No cardiovascular symptoms of any chest pain or chest discomfort or shortness of breath or syncope or presyncope or heart racing or fluttering. For some reason he ended having a troponin came to be mildly abnormal. The EKG showed sinus mechanism with T wave inversion globally concerning for underlying ischemia. Currently he is not having any chest pain or chest discomfort or shortness of breath and he never had any chest pain or chest discomfort or shortness of breath but he underwent a heart catheterization in 2018 showed normal coronaries but the echo from 2023 showed normal LV systolic function with no significant va lvular abnormalities. He was seen by the GI service and he underwent yesterday and EGD with dilatation of the esophageal for esophageal stricture. The physical examination is remarkable for regular rhythm with a soft systolic murmur at the right upper sternal border with diminished breathing sounds bilaterally and no edema was noted in the lower extremities August 30, 2024 The patient was seen and evaluated this morning with he continues to have nausea and vomiting but no pain in the chest. The echo still pending. Examination appears to be unchanged compared to before. He continues to be on heparin IV. Assessment Nausea and vomiting Difficulty swallowing Abnormal troponin Abnormal EKG Multiple comorbid conditions Plan Continue the current medical regimen Continue heparin IV Follow-up on the echocardiogram Further recommendation to follow the echocardiogram Objective - Vital Signs Vital signs: Vital Signs Temp 98.0 F 08/30/24 07:39 Pulse 73 08/30/24 07:39 Resp 14 08/30/24 07:39 BP 113/67 08/30/24 07:39 Pulse Ox 96 08/30/24 07:39 FiO2 Intake & Output 08/29/24 08/30/24 08/30/24 18:59 06:59 18:59 Intake Total 20 Output Total 800 800 Balance -780 -800 Weight 58.8 kg 58.7 kg Intake: IV 20 Invasive Line 1 20 Output: Urine 800 800 - Labs CBC & Chem 7: 08/30/24 06:58 08/30/24 06:58 Labs: Abnormal Lab Results - Last 24 Hours (Table) 08/28/24 08/29/24 08/29/24 Range/Units 13:16 10:32 10:32 Hgb (13.0-17.5) gm/dL MCHC (31.0-37.0) g/dL RDW 17.6 H (11.5-15.5) % Neutrophils # 8.8 H (1.3-7.7) k/uL Lymphocytes # (1.0-4.8) k/uL PT (10.0-12.5) sec INR (<1.2) APTT (22.0-30.0) sec Sodium 146 H (137-145) mmol/L Potassium (3.5-5.1) mmol/L Chloride 114 H (98-107) mmol/L BUN (9-20) mg/dL Creatinine 0.61 L (0.66-1.25) mg/dL Glucose 102 H (74-99) mg/dL Hemoglobin A1c 6.6 H (<=6.0) % Calcium 7.8 L (8.4-10.2) mg/dL Troponin I (0.000-0.034) ng/mL 08/29/24 08/29/24 08/29/24 Range/Units 11:46 14:53 14:53 Hgb (13.0-17.5) gm/dL MCHC 30.8 L (31.0-37.0) g/dL RDW 17.6 H (11.5-15.5) % Neutrophils # (1.3-7.7) k/uL Lymphocytes # 0.9 L (1.0-4.8) k/uL PT 15.5 H (10.0-12.5) sec INR 1.5 H (<1.2) APTT (22.0-30.0) sec Sodium (137-145) mmol/L Potassium (3.5-5.1) mmol/L Chloride (98-107) mmol/L BUN (9-20) mg/dL Creatinine (0.66-1.25) mg/dL Glucose (74-99) mg/dL Hemoglobin A1c (<=6.0) % Calcium (8.4-10.2) mg/dL Troponin I 0.087 H* (0.000-0.034) ng/mL 08/29/24 08/30/24 08/30/24 Range/Units 21:27 06:58 06:58 Hgb 12.8 L (13.0-17.5) gm/dL MCHC (31.0-37.0) g/dL RDW 17.4 H (11.5-15.5) % Neutrophils # (1.3-7.7) k/uL Lymphocytes # (1.0-4.8) k/uL PT (10.0-12.5) sec INR (<1.2) APTT 68.2 H (22.0-30.0) sec Sodium (137-145) mmol/L Potassium 2.7 L* (3.5-5.1) mmol/L Chloride 108 H (98-107) mmol/L BUN 7 L (9-20) mg/dL Creatinine 0.49 L (0.66-1.25) mg/dL Glucose (74-99) mg/dL Hemoglobin A1c (<=6.0) % Calcium 7.5 L (8.4-10.2) mg/dL Troponin I (0.000-0.034) ng/mL 08/30/24 Range/Units 06:58 Hgb (13.0-17.5) gm/dL MCHC (31.0-37.0) g/dL RDW (11.5-15.5) % Neutrophils # (1.3-7.7) k/uL Lymphocytes # (1.0-4.8) k/uL PT 15.0 H (10.0-12.5) sec INR 1.4 H (<1.2) APTT (22.0-30.0) sec Sodium (137-145) mmol/L Potassium (3.5-5.1) mmol/L Chloride (98-107) mmol/L BUN (9-20) mg/dL Creatinine (0.66-1.25) mg/dL Glucose (74-99) mg/dL Hemoglobin A1c (<=6.0) % Calcium (8.4-10.2) mg/dL Troponin I (0.000-0.034) ng/mL
[2024-08-30] MEDS: POTASSIUM CHLORIDE 10 MEQ in WATER FOR INJECTION 1 100ML.BAG IVPB SCH (12:02)
--- NOTE | 2024-08-30 12:07 | CA ---
Transthoracic Echo Report Name: Finn Alex Age: 68 Gender: M : 1955 Exam Date: 08/30/2024 07:48 Exam Location: [facility] Ht (in): 68 Wt (lb): 129 Ordering Physician: Macario Nicole MD Attending/Referring Phys: [id number], Corey Cardiovascular Disease Specialist Moe Fraser, LINDEN Procedure CPT: Indications: elevated trop Cardiac Hx: Technical Quality: Good Contrast 1: Total Dose (mL): Contrast 2: Total Dose (mL): MEASUREMENTS (Male / Female) Normal Values 2D ECHO LV Diastolic Diameter PLAX 3.5 cm 4.2 - 5.9 / 3.9 - 5.3 cm LV Systolic Diameter PLAX 1.9 cm IVS Diastolic Thickness 1.1 cm 0.6 - 1.0 / 0.6 - 0.9 cm LVPW Diastolic Thickness 1.1 cm 0.6 - 1.0 / 0.6 - 0.9 cm LV Relative Wall Thickness 0.6 RV Internal Dim ED PLAX 2.6 cm LVOT Diameter 1.7 cm LA Systolic Diameter LX 2.7 cm 3.0 - 4.0 / 2.7 - 3.8 cm LV Diastolic Volume MOD BP 62.0 cm??? 67 - 155 / 56 - 104 cm??? LV Systolic Volume MOD BP 19.1 cm??? 22 - 58 / 19 - 49 cm??? LV Ejection Fraction MOD BP 69.2 % >= 55 % LV Diastolic Volume MOD 4C 74.3 cm??? LV Systolic Volume MOD 4C 29.3 cm??? LV Ejection Fraction MOD 4C 60.6 % LV Diastolic Length 4C 8.1 cm LV Systolic Length 4C 6.6 cm LV Diastolic Volume MOD 2C 58.3 cm??? LV Systolic Volume MOD 2C 18.6 cm??? LV Ejection Fraction MOD 2C 68.1 % LV Diastolic Length 2C 8.0 cm LV Systolic Length 2C 6.3 cm LA Volume 23.2 cm??? 18 - 58 / 22 - 52 cm??? LA Volume Index 13.9 cm???/m??? 16 - 28 cm???/m??? DOPPLER AV Peak Velocity 131.3 cm/s AV Peak Gradient 6.9 mmHg AV Mean Velocity 88.0 cm/s AV Mean Gradient 3.5 mmHg AV Velocity Time Integral 24.2 cm LVOT Peak Velocity 107.0 cm/s LVOT Peak Gradient 4.6 mmHg LVOT Velocity Time Integral 21.8 cm LVOT Stroke Volume 46.6 cm??? LVOT Stroke Volume Index 27.5 ml/m??? AV Area Cont Eq vti 1.9 cm??? AV Area Cont Eq pk 1.7 cm??? MV Area PHT 2.3 cm??? MR Peak Velocity 564.5 cm/s MR Peak Gradient 127.5 mmHg Mitral E Point Velocity 42.2 cm/s Mitral A Point Velocity 58.3 cm/s Mitral E to A Ratio 0.7 MV Deceleration Time 327.1 ms TR Peak Velocity 111.1 cm/s TR Peak Gradient 4.9 mmHg FINDINGS Left Ventricle Left ventricular ejection fraction is estimated at 60 %. Normal Left ventricular size, wall thickness, systolic function with no obvious regional wall motion abnormalities. Right Ventricle Normal right ventricular size and function. Unable to estimate the right ventricular systolic pressure. Right Atrium Normal right atrial size. Left Atrium Normal left atrial size. Mitral Valve Structurally normal mitral valve. No mitral stenosis. Mild mitral regurgitation. Aortic Valve Trileaflet aortic valve. No aortic stenosis. Trace aortic regurgitation. Tricuspid Valve Structurally normal tricuspid valve. No tricuspid stenosis. No tricuspid regurgitation. Pulmonic Valve Structurally normal pulmonic valve. No pulmonic stenosis. Trace pulmonic regurgitation. Pericardium No pericardial effusion. No pleural effusion. Aorta Normal size aortic root and proximal ascending aorta. CONCLUSIONS Normal LV function Mild mitral regurgitation Previewed by: Dr. Kashmir Odell MD (Electronically Signed) Final Date: 30 August 2024 12:07
--- NOTE | 2024-08-30 14:03 | P.PN ---
Subjective Progress Note Date: 08/30/24 Principal diagnosis: Intractable vomiting Patient had further vomiting this morning when he went for his small bowel study. Final results are pending. Family states that most of the vomiting at home has been foamy and saliva like. They are stating that the patient did well previously with a PEG tube. Objective - Vital Signs Vital signs: Vital Signs Temp 97.4 F L 08/30/24 11:45 Pulse 45 L 08/30/24 11:45 Resp 12 08/30/24 11:45 BP 126/77 08/30/24 11:45 Pulse Ox 99 08/30/24 11:45 FiO2 Intake & Output 08/29/24 08/30/24 08/30/24 18:59 06:59 18:59 Intake Total 20 Output Total 800 800 Balance -780 -800 Weight 58.8 kg 58.7 kg 58.7 kg Intake: IV 20 Invasive Line 1 20 Output: Urine 800 800 - Exam Abdomen: Soft, nondistended, previous scarring noted - Labs CBC & Chem 7: 08/30/24 06:58 08/30/24 06:58 Labs: Abnormal Lab Results - Last 24 Hours (Table) 08/28/24 08/29/24 08/29/24 Range/Units 13:16 14:53 14:53 Hgb (13.0-17.5) gm/dL MCHC 30.8 L (31.0-37.0) g/dL RDW 17.6 H (11.5-15.5) % Lymphocytes # 0.9 L (1.0-4.8) k/uL PT 15.5 H (10.0-12.5) sec INR 1.5 H (<1.2) APTT (22.0-30.0) sec Potassium (3.5-5.1) mmol/L Chloride (98-107) mmol/L BUN (9-20) mg/dL Creatinine (0.66-1.25) mg/dL Hemoglobin A1c 6.6 H (<=6.0) % Calcium (8.4-10.2) mg/dL 08/29/24 08/30/24 08/30/24 Range/Units 21:27 06:58 06:58 Hgb 12.8 L (13.0-17.5) gm/dL MCHC (31.0-37.0) g/dL RDW 17.4 H (11.5-15.5) % Lymphocytes # (1.0-4.8) k/uL PT (10.0-12.5) sec INR (<1.2) APTT 68.2 H (22.0-30.0) sec Potassium 2.7 L* (3.5-5.1) mmol/L Chloride 108 H (98-107) mmol/L BUN 7 L (9-20) mg/dL Creatinine 0.49 L (0.66-1.25) mg/dL Hemoglobin A1c (<=6.0) % Calcium 7.5 L (8.4-10.2) mg/dL 08/30/24 Range/Units 06:58 Hgb (13.0-17.5) gm/dL MCHC (31.0-37.0) g/dL RDW (11.5-15.5) % Lymphocytes # (1.0-4.8) k/uL PT 15.0 H (10.0-12.5) sec INR 1.4 H (<1.2) APTT (22.0-30.0) sec Potassium (3.5-5.1) mmol/L Chloride (98-107) mmol/L BUN (9-20) mg/dL Creatinine (0.66-1.25) mg/dL Hemoglobin A1c (<=6.0) % Calcium (8.4-10.2) mg/dL Assessment and Plan (1) Intractable nausea and vomiting Narrative/Plan: 68-year-old male with intractable nausea vomiting. Patient without further bilious emesis. Await findings of upper GI small bowel series. Patient may r equire PEG tube replacement. If the patient has high residuals or further vomiting with gastric feeding could always consider passing jejunostomy tube through the PEG tube. Current Visit: Yes Status: Acute Code(s): R11.2 - NAUSEA WITH VOMITING, UNSPECIFIED SNOMED Code(s): 574350092
--- NOTE | 2024-08-30 15:01 | FL ---
EXAMINATION TYPE: FL UGI w esophagus w sm bowel DATE OF EXAM: 08/30/2024 COMPARISON: None CLINICAL INDICATION: Male, 68 years old with history of Vomiting, obstruction; [facility], TECHNIQUE: A renal contrast upper GI small bowel study is performed with small bowel follow through. A total of 61 seconds of fluoroscopic time was utilized during procedure and 17 images obtained. T otal dose area product (DAP) in uGy*m?, mGy*cm? (or similar): Provided. FINDINGS: [employer] image of the abdomen shows no gross abnormality. The patient could only tolerate a couple of swallows of contrast and then became nauseous and experie nced vomiting and requested the exam be terminated. Visualized portion esophagus appears to be patent but is limited in evaluation. The stomach is underdistended. Could not exclude an abnormality within the gastric body. Delayed imaging was carried out to 5 hours 45 minutes with contrast seen in the di stal ileum. Terminal ileum was not reached likely due to the small amount of contrast. No obvious obs truction. There is no bowel dilation. Ileum is unremarkable. IMPRESSION: 1. Limited exam as the patient difficulty with ingesting the contrast and experienced volume after a couple swallows. 2. No obvious bowel dilation to suggest obstruction. 3. Irregularity of the gastric body could be related to underdistention however, mucosal lesion\mass is in the differential diagnosis. Recommend EGD. 4. No evidence of esophageal obstruction. Limited distention of the distal esophagus above the GE judson ction also could be evaluated with EGD. [facility], , 08/30/2024 2:55 PM
--- NOTE | 2024-08-30 19:22 | XR ---
EXAMINATION TYPE: XR abdomen 1V DATE OF EXAM: 08/30/2024 7:12 PM COMPARISON: Radiograph same day. CLINICAL INDICATION: Male, 68 years old with history of F/U FOR SMALL BOWEL SERIES; pain TECHNIQUE: One radiographic view of the abdomen was obtained. FINDINGS: Oral contrast was thought to be within the right colon. No evidence for obstruction. The vi sualized bowel gas pattern is nonspecific without dilated loops of small or large bowel. Fecal materi al and gas are demonstrated throughout the colon and rectum. There is no evidence for organomegaly or pneumoperitoneum. No acute osseous process. No abnormal calcifications are present. IMPRESSION: Contrast is seen within the ascending colon. No evidence for bowel obstruction. [facility], , 08/30/2024 7:20 PM
--- NOTE | 2024-08-31 08:48 | P.PN ---
Subjective Progress Note Date: 08/31/24 The patient is a 68-year-old gentleman who is known to our service from before with a past medical history significant for hypertension and dyslipidemia and history of esophageal stricture with multiple dilatation before as well as chronic nausea and vomiting. The patient was admitted to the hospital with the nausea and vomiting associated with mild abdominal discomfort. No cardiovascular symptoms of any chest pain or chest discomfort or shortness of breath or syncope or presyncope or heart racing or fluttering. For some reason he ended having a troponin came to be mildly abnormal. The EKG showed sinus mechanism with T wave inversion globally concerning for underlying ischemia. Currently he is not having any chest pain or chest discomfort or shortness of breath and he never had any chest pain or chest discomfort or shortness of breath but he underwent a heart catheterization in 2018 showed normal coronaries but the echo from 2023 showed normal LV systolic function with no significant va lvular abnormalities. He was seen by the GI service and he underwent yesterday and EGD with dilatation of the esophageal for esophageal stricture. The physical examination is remarkable for regular rhythm with a soft systolic murmur at the right upper sternal border with diminished breathing sounds bilaterally and no edema was noted in the lower extremities August 30, 2024 The patient was seen and evaluated this morning with he continues to have nausea and vomiting but no pain in the chest. The echo still pending. Examination appears to be unchanged compared to before. He continues to be on heparin IV. August 31, 2024 The patient was seen and evaluated this morning. He is still experiencing nausea and vomiting. He is unable to take any oral medication. The echo showed normal LV systolic function. No symptoms of chest pain or chest discomfort at this point. The physical examination is remarkable for regular rhythm with a soft systolic murmur and clear breathing sounds bilaterally and no edema was noted in the lower extremities Assessment Nausea and vomiting Difficulty swallowing Abnormal troponin Abnormal EKG Multiple comorbid conditions Plan Continue the current medical regimen DC heparin Follow-up with the patient Objective - Vital Signs Vital signs: Vital Signs Temp 98.1 F 08/31/24 04:00 Pulse 67 08/31/24 04:00 Resp 18 08/31/24 04:00 BP 110/63 08/31/24 04:00 Pulse Ox 94 L 08/31/24 04:00 FiO2 Intake & Output 08/30/24 08/31/24 08/31/24 18:59 06:59 18:59 Intake Total 230.026 Output Total 900 1000 Balance -900 -409.974 Weight 58.7 kg 59.5 kg Intake: Intake, IV Titration 230.026 Amount Heparin Sod,Pork in 0.45% 230.026 NaCl 25,000 unit In 0.45 % NaCl 1 250ml.bag @ 12 UNITS/KG/HR 7.056 mls/hr IV .Q24H [facility] Rx#: [id number] Output: Urine 900 1000 Other: Voiding Method Urinal Urinal - Labs CBC & Chem 7: 08/30/24 06:58 08/30/24 06:58
[2024-08-31 09:05] LABS: Anisocytosis Slight; Basophils % (A) 0 %; Eosinophils % (A) 0 %; HCT 43.8 % (39.0-53.0); Hypochromasia Slight; Lymphocytes # (A) 1.2 k/uL (1.0-4.8); Lymphocytes % (A) 13 %; MCH 29.7 pg (25.0-35.0); MCHC 31.9 g/dL (31.0-37.0); Mean Platelet Volume 11.2; Monocytes # (A) 0.4 k/uL (0-1.0); Monocytes % (A) 4 %; Neutrophils % (A) 81 %; Platelet Count 195 k/uL (150-450); RBC 4.71 m/uL (4.30-5.90); RDW 17.3 % (11.5-15.5); WBC 8.7 k/uL (3.8-10.6)
[2024-08-31 09:36] LABS: African American GFR (CKD) >90 (>60 ml/min/1.73 sqM); Anion Gap 10 mmol/L; Blood Urea Nitrogen 8 mg/dL (9-20); Calcium 7.7 mg/dL (8.4-10.2); Carbon Dioxide 24 mmol/L (22-30); Chloride 104 mmol/L (98-107); Glucose 61 mg/dL (74-99); Non-African American GFR(CKD) >90 (>60 ml/min/1.73 sqM); Sodium 138 mmol/L (137-145)
[2024-08-31 10:07] LABS: Potassium 3.5 mmol/L (3.5-5.1)
--- NOTE | 2024-08-31 10:12 | P.PN ---
Subjective Progress Note Date: 08/31/24 Principal diagnosis: Intractable vomiting Patient still having episodes of foamy emesis. No bilious vomiting noted by the nursing staff. No significant pain. Objective - Vital Signs Vital signs: Vital Signs Temp 98.1 F 08/31/24 04:00 Pulse 67 08/31/24 04:00 Resp 18 08/31/24 04:00 BP 110/63 08/31/24 04:00 Pulse Ox 94 L 08/31/24 04:00 FiO2 Intake & Output 08/30/24 08/31/24 08/31/24 18:59 06:59 18:59 Intake Total 230.026 Output Total 900 1000 Balance -900 -769.974 Weight 58.7 kg 59.5 kg Intake: Intake, IV Titration 230.026 Amount Heparin Sod,Pork in 0.45% 230.026 NaCl 25,000 unit In 0.45 % NaCl 1 250ml.bag @ 12 UNITS/KG/HR 7.056 mls/hr IV .Q24H [facility] Rx#: [id number] Output: Urine 900 1000 Other: Voiding Method Urinal Urinal - Exam Abdomen: Soft, nondistended, previous scarring noted - Labs CBC & Chem 7: 08/31/24 08:15 08/31/24 08:15 Labs: Abnormal Lab Results - Last 24 Hours (Table) 08/31/24 08/31/24 08/31/24 Range/Units 08:15 08:15 08:15 RDW 17.3 H (11.5-15.5) % APTT 31.9 H (22.0-30.0) sec BUN 8 L (9-20) mg/dL Creatinine 0.50 L (0.66-1.25) mg/dL Glucose 61 L (74-99) mg/dL Calcium 7.7 L (8.4-10.2) mg/dL Assessment and Plan (1) Intractable nausea and vomiting Narrative/Plan: Patient with intractable vomiting. Patient apparently did well with a feeding tube previously. This was removed after the patient's vomiting issues improved last fall. Will tentatively schedule for repeat EGD with PEG tube placement on Monday. If the patient has high residuals or emesis of feeds consider switching to a PEJ tube. Current Visit: Yes Status: Acute Code(s): R11.2 - NAUSEA WITH VOMITING, UNSPECIFIED SNOMED Code(s): 476090079
--- NOTE | 2024-08-31 18:28 | P.PN ---
Subjective Progress Note Date: 08/30/24 68-year-old gentleman past medical history of cyclic vomiting syndrome presenting today for "dehydration". History is limited as patient and friend at bedside seem exasperated by having to provide further history. Patient has required multiple hospital admissions for similar symptoms. Today symptoms are similar to prior. He has no abdominal pain, shortness of breath or chest pain. No fevers or chills. No diarrhea, hematochezia. No black or bloody stools. Prior abdominal surgeries include prior cholecystectomy and prior feeding tube placement. Patient's friend states patient had a G-tube placed last summer and was ultimately removed in February when patient was able to gain weight. This was done by Dr. Pavon. Patient was discharged just discharged like [facility] on 08/23/2024 when admitted earlier for similar symptoms. Patient's friend at bedside, with whom he lives, states that he has been vomiting ever since discharge. He [place] taking Zofran, BuSpar, pantoprazole but is unable to keep any of his medications down. States patient was started on additional medications at time of discharge but however has not been able to keep any of them down due to nausea and vomiting. Emesis is nonbloody nonbilious. Of note patient has no history ACS, is a non-smoker, denies alcohol use. Infrequently uses marijuana, patient's friend at bedside states patient has not used marijuana recently. Blood work completed in ED reveals a WBC of 10.9, hemoglobin of 16.7 and sonu telet count of 400, sodium 149, potassium 3.9, BUNs/creatinine of 26/0.95, magnesium elevated at 2.4, AST slightly elevated at 73, troponin elevated at 0.149 UA is unremarkable Urine drug screen is positive for marijuana 08/30/2024 Patient is seen and evaluated in room at bedside; continues to report nausea and vomiting with very poor oral intake; no further complaints of chest pain Vital signs reviewed and stable with temperature of 98, pulse 73, respiration 14 and blood pressure 113/67 Blood work reveals WBC 6.8, hemoglobin of 12.8 and platelet count of 181, sodium 142, potassium 2.7, BUNs/creatinine of 7/0.49 -Cardiology is following for elevated troponin and abnormal EKG; echocardiogram has been ordered; further recommendations after echocardiogram is completed and reported; patient remains on IV heparin General Surgery on board; small bowel follow-through is ordered; pending results, possible need for PEG tube placement Objective - Vital Signs Vital signs: Vital Signs Temp 98.0 F 08/30/24 07:39 Pulse 73 08/30/24 07:39 Resp 14 08/30/24 07:39 BP 113/67 08/30/24 07:39 Pulse Ox 96 08/30/24 07:39 FiO2 Intake & Output 08/29/24 08/30/24 08/30/24 18:59 06:59 18:59 Intake Total 20 Output Total 800 800 Balance -780 -800 Weight 58.8 kg 58.7 kg 58.7 kg Intake: IV 20 Invasive Line 1 20 Output: Urine 800 800 - Exam CONSTITUTIONAL: No apparent distress, chronically ill-appearing, nontoxic SKIN: Warm, dry, no jaundice, hives or petechiae EYES: Pupils are equally round, extraocular movements intact without nystagmus, clear conjunctiva, non-icteric sclera HENT: Normocephalic, atraumatic, dry mucus membranes, oropharynx clear without exudates NECK: , Full range of motion, normal appearance PULMONARY: Clear to auscultation without wheezes, rhonchi, or rales, normal excursion, no accessory muscle use and no stridor CARDIOVASCULAR: Regular rate, rhythm, normal S1 and S2. No appreciated murmurs, rubs or gallops. Strong radial pulses with intact distal perfusion. No lower extremity edema GASTROINTESTINAL: Soft, active bowel sounds throughout, non-tender, non- distended, no palpable masses, no rebound or guarding. No hepatosplenomegaly MUSCULOSKELETAL: Extremities have no gross deformity, no edema, redness, or swelling. No calf swelling NEUROLOGIC:_a/o x 3, GCS 15, normal mentation and speech. Moves all extremities x 4 without motor or sensory deficit PSYCHIATRIC:_normal mood and affect, thought process is clear and linear - Labs CBC & Chem 7: 08/31/24 08:15 08/31/24 08:15 Labs: Abnormal Lab Results - Last 24 Hours (Table) 08/28/24 08/29/24 08/29/24 Range/Units 13:16 10:32 10:32 Hgb (13.0-17.5) gm/dL MCHC (31.0-37.0) g/dL RDW 17.6 H (11.5-15.5) % Neutrophils # 8.8 H (1.3-7.7) k/uL Lymphocytes # (1.0-4.8) k/uL PT (10.0-12.5) sec INR (<1.2) APTT (22.0-30.0) sec Sodium 146 H (137-145) mmol/L Potassium (3.5-5.1) mmol/L Chloride 114 H (98-107) mmol/L BUN (9-20) mg/dL Creatinine 0.61 L (0.66-1.25) mg/dL Glucose 102 H (74-99) mg/dL Hemoglobin A1c 6.6 H (<=6.0) % Calcium 7.8 L (8.4-10.2) mg/dL Troponin I (0.000-0.034) ng/mL 08/29/24 08/29/24 08/29/24 Range/Units 11:46 14:53 14:53 Hgb (13.0-17.5) gm/dL MCHC 30.8 L (31.0-37.0) g/dL RDW 17.6 H (11.5-15.5) % Neutrophils # (1.3-7.7) k/uL Lymphocytes # 0.9 L (1.0-4.8) k/uL PT 15.5 H (10.0-12.5) sec INR 1.5 H (<1.2) APTT (22.0-30.0) sec Sodium (137-145) mmol/L Potassium (3.5-5.1) mmol/L Chloride (98-107) mmol/L BUN (9-20) mg/dL Creatinine (0.66-1.25) mg/dL Glucose (74-99) mg/dL Hemoglobin A1c (<=6.0) % Calcium (8.4-10.2) mg/dL Troponin I 0.087 H* (0.000-0.034) ng/mL 08/29/24 08/30/24 08/30/24 Range/Units 21:27 06:58 06:58 Hgb 12.8 L (13.0-17.5) gm/dL MCHC (31.0-37.0) g/dL RDW 17.4 H (11.5-15.5) % Neutrophils # (1.3-7.7) k/uL Lymphocytes # (1.0-4.8) k/uL PT (10.0-12.5) sec INR (<1.2) APTT 68.2 H (22.0-30.0) sec Sodium (137-145) mmol/L Potassium 2.7 L* (3.5-5.1) mmol/L Chloride 108 H (98-107) mmol/L BUN 7 L (9-20) mg/dL Creatinine 0.49 L (0.66-1.25) mg/dL Glucose (74-99) mg/dL Hemoglobin A1c (<=6.0) % Calcium 7.5 L (8.4-10.2) mg/dL Troponin I (0.000-0.034) ng/mL 08/30/24 Range/Units 06:58 Hgb (13.0-17.5) gm/dL MCHC (31.0-37.0) g/dL RDW (11.5-15.5) % Neutrophils # (1.3-7.7) k/uL Lymphocytes # (1.0-4.8) k/uL PT 15.0 H (10.0-12.5) sec INR 1.4 H (<1.2) APTT (22.0-30.0) sec Sodium (137-145) mmol/L Potassium (3.5-5.1) mmol/L Chloride (98-107) mmol/L BUN (9-20) mg/dL Creatinine (0.66-1.25) mg/dL Glucose (74-99) mg/dL Hemoglobin A1c (<=6.0) % Calcium (8.4-10.2) mg/dL Troponin I (0.000-0.034) ng/mL Assessment and Plan Assessment: 1. Elevated troponin -Patient denies any complaint of chest pain; initial troponin at the time of admission up at 1.15; patient continues to deny any chest pain - EKG showed sinus mechanism with T wave inversion globally concerning for underlying ischemia. -- We will continue to trend troponin; monitor EKG -Recommend 2D echo Consult cardiology 2. Intractable nausea and vomiting; likely cyclic vomiting syndrome -Patient remains on IV fluid; Protonix 40 mg daily - symptomatic treatment for nausea and vomiting -Monitor electrolytes and renal function 3. Mild transaminitis; likely related to intractable vomiting -We will monitor liver enzymes periodically 5. Hyperlipidemia; Lipitor 40 mg p.o. nightly 6. Hypertension; metoprolol 25 mg twice daily 7. Anxiety/depression; BuSpar 7.5 mg twice daily; Zoloft 25 mg daily DVT prophylaxis; SCDs CODE STATUS; full code
--- NOTE | 2024-08-31 18:30 | P.PN ---
Subjective Progress Note Date: 08/31/24 68-year-old gentleman past medical history of cyclic vomiting syndrome presenting today for "dehydration". History is limited as patient and friend at bedside seem exasperated by having to provide further history. Patient has required multiple hospital admissions for similar symptoms. Today symptoms are similar to prior. He has no abdominal pain, shortness of breath or chest pain. No fevers or chills. No diarrhea, hematochezia. No black or bloody stools. Prior abdominal surgeries include prior cholecystectomy and prior feeding tube placement. Patient's friend states patient had a G-tube placed last summer and was ultimately removed in February when patient was able to gain weight. This was done by Dr. Pavon. Patient was discharged just discharged like [facility] on 08/23/2024 when admitted earlier for similar symptoms. Patient's friend at bedside, with whom he lives, states that he has been vomiting ever since discharge. He [place] taking Zofran, BuSpar, pantoprazole but is unable to keep any of his medications down. States patient was started on additional medications at time of discharge but however has not been able to keep any of them down due to nausea and vomiting. Emesis is nonbloody nonbilious. Of note patient has no history ACS, is a non-smoker, denies alcohol use. Infrequently uses marijuana, patient's friend at bedside states patient has not used marijuana recently. Blood work completed in ED reveals a WBC of 10.9, hemoglobin of 16.7 and sonu telet count of 400, sodium 149, potassium 3.9, BUNs/creatinine of 26/0.95, magnesium elevated at 2.4, AST slightly elevated at 73, troponin elevated at 0.149 UA is unremarkable Urine drug screen is positive for marijuana 08/30/2024 Patient is seen and evaluated in room at bedside; continues to report nausea and vomiting with very poor oral intake; no further complaints of chest pain Vital signs reviewed and stable with temperature of 98, pulse 73, respiration 14 and blood pressure 113/67 Blood work reveals WBC 6.8, hemoglobin of 12.8 and platelet count of 181, sodium 142, potassium 2.7, BUNs/creatinine of 7/0.49 -Cardiology is following for elevated troponin and abnormal EKG; echocardiogram has been ordered; further recommendations after echocardiogram is completed and reported; patient remains on IV heparin General Surgery on board; small bowel follow-through is ordered; pending results, possible need for PEG tube placement 24-hour interval change 08/31/2024 Patient is seen resting in bed; continues to report emesis Vital signs are stable temperature 98.1, pulse 67, respiration 18 and blood pressure 110/63 Labs reveal WBC 8.7, hemoglobin of 14 and platelet count of 185; sodium 138, potassium 3.5, BUNs/creatinine of 8/0.50 and blood glucose 81 -General Surgery on board and tentatively planning for repeat EGD with possible PEG tube placement on Monday Cardiology following for elevated cardiac enzymes and abnormal EKG; echocardi ogram reveals normal LV systolic function; cardiology recommending to discontinue heparin; no further workup recommended Objective - Vital Signs Vital signs: Vital Signs Temp 98.1 F 08/31/24 04:00 Pulse 67 08/31/24 04:00 Resp 18 08/31/24 04:00 BP 110/63 08/31/24 04:00 Pulse Ox 94 L 08/31/24 04:00 FiO2 Intake & Output 08/30/24 08/31/24 08/31/24 18:59 06:59 18:59 Intake Total 230.026 Output Total 900 1000 300 Balance -900 -769.974 -300 Weight 58.7 kg 59.5 kg Intake: Intake, IV Titration 230.026 Amount Heparin Sod,Pork in 0.45% 230.026 NaCl 25,000 unit In 0.45 % NaCl 1 250ml.bag @ 12 UNITS/KG/HR 7.056 mls/hr IV .Q24H [facility] Rx#: [id number] Output: Urine 900 1000 300 Other: Voiding Method Urinal Urinal - Exam CONSTITUTIONAL: No apparent distress, chronically ill-appearing, nontoxic SKIN: Warm, dry, no jaundice, hives or petechiae EYES: Pupils are equally round, extraocular movements intact without nystagmus, clear conjunctiva, non-icteric sclera HENT: Normocephalic, atraumatic, dry mucus membranes, oropharynx clear without exudates NECK: , Full range of motion, normal appearance PULMONARY: Clear to auscultation without wheezes, rhonchi, or rales, normal e xcursion, no accessory muscle use and no stridor CARDIOVASCULAR: Regular rate, rhythm, normal S1 and S2. No appreciated murmurs, rubs or gallops. Strong radial pulses with intact distal perfusion. No lower extremity edema GASTROINTESTINAL: Soft, active bowel sounds throughout, non-tender, non-disten ded, no palpable masses, no rebound or guarding. No hepatosplenomegaly MUSCULOSKELETAL: Extremities have no gross deformity, no edema, redness, or swelling. No calf swelling NEUROLOGIC:_a/o x 3, GCS 15, normal mentation and speech. Moves all extremities x 4 without motor or sensory deficit PSYCHIATRIC:_normal mood and affect, thought process is clear and linear - Labs CBC & Chem 7: 08/31/24 08:15 08/31/24 08:15 Labs: Abnormal Lab Results - Last 24 Hours (Table) 08/31/24 08/31/24 08/31/24 Range/Units 08:15 08:15 08:15 RDW 17.3 H (11.5-15.5) % APTT 31.9 H (22.0-30.0) sec BUN 8 L (9-20) mg/dL Creatinine 0.50 L (0.66-1.25) mg/dL Glucose 61 L (74-99) mg/dL Calcium 7.7 L (8.4-10.2) mg/dL Assessment and Plan Assessment: 1. Elevated troponin -Patient denies any complaint of chest pain; initial troponin at the time of admission up at 1.15; patient continues to deny any chest pain - EKG showed sinus mechanism with T wave inversion globally concerning for underlying ischemia. -- We will continue to trend troponin; monitor EKG -Recommend 2D echo Consult cardiology 2. Intractable nausea and vomiting; likely cyclic vomiting syndrome -Patient remains on IV fluid; Protonix 40 mg daily - symptomatic treatment for nausea and vomiting -Monitor electrolytes and renal function 3. Mild transaminitis; likely related to intractable vomiting -We will monitor liver enzymes periodically 5. Hyperlipidemia; Lipitor 40 mg p.o. nightly 6. Hypertension; metoprolol 25 mg twice daily 7. Anxiety/depression; BuSpar 7.5 mg twice daily; Zoloft 25 mg daily DVT prophylaxis; SCDs CODE STATUS; full code
[2024-08-31] MEDS: ONDANSETRON 4 MG/2 ML VIAL IVP PRN (19:45)
--- NOTE | 2024-09-01 09:27 | P.PN ---
Subjective Progress Note Date: 09/01/24 The patient is a 68-year-old gentleman who is known to our service from before with a past medical history significant for hypertension and dyslipidemia and history of esophageal stricture with multiple dilatation before as well as chronic nausea and vomiting. The patient was admitted to the hospital with the nausea and vomiting associated with mild abdominal discomfort. No cardiovascular symptoms of any chest pain or chest discomfort or shortness of breath or syncope or presyncope or heart racing or fluttering. For some reason he ended having a troponin came to be mildly abnormal. The EKG showed sinus mechanism with T wave inversion globally concerning for underlying ischemia. Currently he is not having any chest pain or chest discomfort or shortness of breath and he never had any chest pain or chest discomfort or shortness of breath but he underwent a heart catheterization in 2018 showed normal coronaries but the echo from 2023 showed normal LV systolic function with no significant va lvular abnormalities. He was seen by the GI service and he underwent yesterday and EGD with dilatation of the esophageal for esophageal stricture. The physical examination is remarkable for regular rhythm with a soft systolic murmur at the right upper sternal border with diminished breathing sounds bilaterally and no edema was noted in the lower extremities August 30, 2024 The patient was seen and evaluated this morning with he continues to have nausea and vomiting but no pain in the chest. The echo still pending. Examination appears to be unchanged compared to before. He continues to be on heparin IV. August 31, 2024 The patient was seen and evaluated this morning. He is still experiencing nausea and vomiting. He is unable to take any oral medication. The echo showed normal LV systolic function. No symptoms of chest pain or chest discomfort at this point. The physical examination is remarkable for regular rhythm with a soft systolic murmur and clear breathing sounds bilaterally and no edema was noted in the lower extremities September 01, 2024 The patient was seen and evaluated this morning and he continues to have nausea and vomiting but no symptoms of chest pain or chest discomfort. I am going to repeat the EKG to see if there is any changes compared to the previous one which showed global ischemia. The physical examination is remarkable for regular rhythm with a soft systolic murmur and clear breathing sounds bilaterally and no edema was noted. He is in process of having tube feeding. Assessment Nausea and vomiting Difficulty swallowing Abnormal troponin Abnormal EKG Multiple comorbid conditions Plan Continue the current medical regimen Repeat the EKG Follow-up with the patient Objective - Vital Signs Vital signs: Vital Signs Temp 97.4 F L 09/01/24 08:00 Pulse 95 09/01/24 08:00 Resp 12 09/01/24 08:00 BP 143/98 09/01/24 08:00 Pulse Ox 98 09/01/24 08:00 FiO2 Intake & Output 08/31/24 09/01/24 09/01/24 18:59 06:59 18:59 Intake Total 1040 Output Total 300 500 400 Balance 740 -500 -400 Weight 62.5 kg Intake: IV 1040 Sodium Chloride 0.9% 1, 1040 000 ml @ 130 mls/hr IV . Q7H42M [facility] Rx#:[id number] Output: Urine 300 500 400 Other: Voiding Method Urinal Urinal Urinal - Labs CBC & Chem 7: 08/31/24 08:15 08/31/24 08:15 Labs: Abnormal Lab Results - Last 24 Hours (Table) 08/31/24 Range/Units 08:15 BUN 8 L (9-20) mg/dL Creatinine 0.50 L (0.66-1.25) mg/dL Glucose 61 L (74-99) mg/dL Calcium 7.7 L (8.4-10.2) mg/dL
[2024-09-01 09:56] LABS: African American GFR (CKD) >90 (>60 ml/min/1.73 sqM); Anion Gap 10 mmol/L; Blood Urea Nitrogen 6 mg/dL (9-20); Calcium 7.5 mg/dL (8.4-10.2); Carbon Dioxide 27 mmol/L (22-30); Chloride 99 mmol/L (98-107); Glucose 74 mg/dL (74-99); Non-African American GFR(CKD) >90 (>60 ml/min/1.73 sqM); Potassium 2.8 mmol/L (3.5-5.1); Sodium 136 mmol/L (137-145)
[2024-09-01] MEDS ORDERED: Potassium Replacement Protocol 1 EACH MISC MISCELLANE PRN (10:04)
--- NOTE | 2024-09-01 10:07 | P.PN ---
Subjective Progress Note Date: 09/01/24 Principal diagnosis: Intractable vomiting Patient doing about the same. Had more foamy emesis last night. No bilious emesis has been identified recently. Discussed again with patient regarding PEG tube placement. He is agreeable. Objective - Vital Signs Vital signs: Vital Signs Temp 97.4 F L 09/01/24 08:00 Pulse 95 09/01/24 08:00 Resp 12 09/01/24 08:00 BP 143/98 09/01/24 08:00 Pulse Ox 98 09/01/24 08:00 FiO2 Intake & Output 08/31/24 09/01/24 09/01/24 18:59 06:59 18:59 Intake Total 1040 Output Total 300 500 400 Balance 740 -500 -400 Weight 62.5 kg Intake: IV 1040 Sodium Chloride 0.9% 1, 1040 000 ml @ 130 mls/hr IV . Q7H42M [facility] Rx#:[id number] Output: Urine 300 500 400 Other: Voiding Method Urinal Urinal Urinal - Exam Abdomen: Soft, nondistended, previous scarring noted - Labs CBC & Chem 7: 08/31/24 08:15 09/01/24 09:36 Labs: Abnormal Lab Results - Last 24 Hours (Table) 08/31/24 09/01/24 Range/Units 08:15 09:36 Sodium 136 L (137-145) mmol/L Potassium 2.8 L (3.5-5.1) mmol/L BUN 8 L 6 L (9-20) mg/dL Creatinine 0.50 L 0.53 L (0.66-1.25) mg/dL Glucose 61 L (74-99) mg/dL Calcium 7.7 L 7.5 L (8.4-10.2) mg/dL Assessment and Plan (1) Intractable nausea and vomiting Narrative/Plan: Will proceed with PEG tube placement tomorrow. Discussed with patient that this will help hopefully with nutritional support. If the patient has emesis to tube feeds may have to consider J-tube through the PEG. Patient is aware that this may not improve the patient's frequent foamy emesis. Current Visit: Yes Status: Acute Code(s): R11.2 - NAUSEA WITH VOMITING, UNSPECIFIED SNOMED Code(s): 605686404
[2024-09-01] MEDS: POTASSIUM CHLORIDE 10 MEQ in WATER FOR INJECTION 1 100ML.BAG IVPB SCH ×2 (11:31→21:25)
[2024-09-01] MEDS ORDERED: POTASSIUM CHLORIDE 60 MEQ in WATER FOR INJECTION 1 100ML.BAG IVPB STA (12:02)
--- NOTE | 2024-09-01 12:02 | P.PN ---
Subjective Progress Note Date: 09/01/24 68-year-old gentleman past medical history of cyclic vomiting syndrome presenting today for "dehydration". History is limited as patient and friend at bedside seem exasperated by having to provide further history. Patient has required multiple hospital admissions for similar symptoms. Today symptoms are similar to prior. He has no abdominal pain, shortness of breath or chest pain. No fevers or chills. No diarrhea, hematochezia. No black or bloody stools. Prior abdominal surgeries include prior cholecystectomy and prior feeding tube placement. Patient's friend states patient had a G-tube placed last summer and was ultimately removed in February when patient was able to gain weight. This was done by Dr. Pavon. Patient was discharged just discharged like [facility] on 08/23/2024 when admitted earlier for similar symptoms. Patient's friend at bedside, with whom he lives, states that he has been vomiting ever since discharge. He [place] taking Zofran, BuSpar, pantoprazole but is unable to keep any of his medications down. States patient was started on additional medications at time of discharge but however has not been able to keep any of them down due to nausea and vomiting. Emesis is nonbloody nonbilious. Of note patient has no history ACS, is a non-smoker, denies alcohol use. Infrequently uses marijuana, patient's friend at bedside states patient has not used marijuana recently. Blood work completed in ED reveals a WBC of 10.9, hemoglobin of 16.7 and sonu telet count of 400, sodium 149, potassium 3.9, BUNs/creatinine of 26/0.95, magnesium elevated at 2.4, AST slightly elevated at 73, troponin elevated at 0.149 UA is unremarkable Urine drug screen is positive for marijuana 08/30/2024 Patient is seen and evaluated in room at bedside; continues to report nausea and vomiting with very poor oral intake; no further complaints of chest pain Vital signs reviewed and stable with temperature of 98, pulse 73, respiration 14 and blood pressure 113/67 Blood work reveals WBC 6.8, hemoglobin of 12.8 and platelet count of 181, sodium 142, potassium 2.7, BUNs/creatinine of 7/0.49 -Cardiology is following for elevated troponin and abnormal EKG; echocardiogram has been ordered; further recommendations after echocardiogram is completed and reported; patient remains on IV heparin General Surgery on board; small bowel follow-through is ordered; pending results, possible need for PEG tube placement 24-hour interval change 08/31/2024 Patient is seen resting in bed; continues to report emesis Vital signs are stable temperature 98.1, pulse 67, respiration 18 and blood pressure 110/63 Labs reveal WBC 8.7, hemoglobin of 14 and platelet count of 185; sodium 138, potassium 3.5, BUNs/creatinine of 8/0.50 and blood glucose 81 -General Surgery on board and tentatively planning for repeat EGD with possible PEG tube placement on Monday Cardiology following for elevated cardiac enzymes and abnormal EKG; echocardi ogram reveals normal LV systolic function; cardiology recommending to discontinue heparin; no further workup recommended 09/01/2024 Patient seen and evaluated resting in bed; patient has a pillow over his head covering most of his face; reports he is feeling sleepy and wants to rest Vital signs are stable temperature of 97.4, pulse 95, respiration 12 and blood pressure 143/98 Labs revealed sodium 136, potassium 2.8 down from 3.5 yesterday, BUNs/creatinine remained stable at baseline --We will supplement potassium with 60 mEq IV x 1; will repeat potassium level later in the day and supplement as needed General Surgery on board; PEG tube placement has been discussed with patient for nutritional support and he is agreeable; patient tentatively scheduled for EGD and PEG tube placement tomorrow morning Objective - Vital Signs Vital signs: Vital Signs Temp 97.4 F L 09/01/24 08:00 Pulse 95 09/01/24 08:00 Resp 12 09/01/24 08:00 BP 143/98 09/01/24 08:00 Pulse Ox 98 09/01/24 08:00 FiO2 Intake & Output 08/31/24 09/01/24 09/01/24 18:59 06:59 18:59 Intake Total 1040 Output Total 300 500 400 Balance 740 -500 -400 Weight 62.5 kg Intake: IV 1040 Sodium Chloride 0.9% 1, 1040 000 ml @ 130 mls/hr IV . Q7H42M [facility] Rx#:[id number] Output: Urine 300 500 400 Other: Voiding Method Urinal Urinal Urinal - Exam CONSTITUTIONAL: No apparent distress, chronically ill-appearing, nontoxic SKIN: Warm, dry, no jaundice, hives or petechiae EYES: Pupils are equally round, extraocular movements intact without nystagmus, clear conjunctiva, non-icteric sclera HENT: Normocephalic, atraumatic, dry mucus membranes, oropharynx clear without exudates NECK: , Full range of motion, normal appearance PULMONARY: Clear to auscultation without wheezes, rhonchi, or rales, normal excursion, no accessory muscle use and no stridor CARDIOVASCULAR: Regular rate, rhythm, normal S1 and S2. No appreciated murmurs, rubs or gallops. Strong radial pulses with intact distal perfusion. No lower extremity edema GASTROINTESTINAL: Soft, active bowel sounds throughout, non-tender, non- distended, no palpable masses, no rebound or guarding. No hepatosplenomegaly MUSCULOSKELETAL: Extremities have no gross deformity, no edema, redness, or swelling. No calf swelling NEUROLOGIC:_a/o x 3, GCS 15, normal mentation and speech. Moves all extremities x 4 without motor or sensory deficit PSYCHIATRIC:_normal mood and affect, thought process is clear and linear - Labs CBC & Chem 7: 08/31/24 08:15 09/01/24 09:36 Labs: Abnormal Lab Results - Last 24 Hours (Table) 08/31/24 Range/Units 08:15 BUN 8 L (9-20) mg/dL Creatinine 0.50 L (0.66-1.25) mg/dL Glucose 61 L (74-99) mg/dL Calcium 7.7 L (8.4-10.2) mg/dL Assessment and Plan Assessment: 1. Elevated troponin -Patient denies any complaint of chest pain; initial troponin at the time of admission up at 1.15; patient continues to deny any chest pain - EKG showed sinus mechanism with T wave inversion globally concerning for underlying ischemia. -- We will continue to trend troponin; monitor EKG -Recommend 2D echo Consult cardiology 2. Intractable nausea and vomiting; likely cyclic vomiting syndrome -Patient remains on IV fluid; Protonix 40 mg daily - symptomatic treatment for nausea and vomiting -Monitor electrolytes and renal function 3. Mild transaminitis; likely related to intractable vomiting -We will monitor liver enzymes periodically 5. Hyperlipidemia; Lipitor 40 mg p.o. nightly 6. Hypertension; metoprolol 25 mg twice daily 7. Anxiety/depression; BuSpar 7.5 mg twice daily; Zoloft 25 mg daily DVT prophylaxis; SCDs CODE STATUS; full code
[2024-09-02 07:19] LABS: Anisocytosis Slight; Basophils % (A) 0 %; Eosinophils % (A) 0 %; HCT 42.1 % (39.0-53.0); HGB 13.7 gm/dL (13.0-17.5); Lymphocytes # (A) 1.1 k/uL (1.0-4.8); Lymphocytes % (A) 13 %; MCH 29.4 pg (25.0-35.0); MCHC 32.6 g/dL (31.0-37.0); MCV 90.4 fL (80.0-100.0); Mean Platelet Volume 9.2; Monocytes # (A) 0.4 k/uL (0-1.0); Monocytes % (A) 5 %; Neutrophils # (A) 6.6 k/uL (1.3-7.7); Neutrophils % (A) 80 %; Platelet Count 233 k/uL (150-450); RBC 4.65 m/uL (4.30-5.90); RDW 17.3 % (11.5-15.5); WBC 8.2 k/uL (3.8-10.6)
[2024-09-02 07:31] LABS: African American GFR (CKD) >90 (>60 ml/min/1.73 sqM); Anion Gap 9 mmol/L; Blood Urea Nitrogen 3 mg/dL (9-20); Calcium 7.8 mg/dL (8.4-10.2); Carbon Dioxide 27 mmol/L (22-30); Chloride 100 mmol/L (98-107); Glucose 58 mg/dL (74-99); Non-African American GFR(CKD) >90 (>60 ml/min/1.73 sqM); Potassium 3.9 mmol/L (3.5-5.1); Sodium 136 mmol/L (137-145)
[2024-09-02] MEDS ORDERED: LIDOCAINE 2% (PF) 20 MG/ML 5 ML VIAL ONE (08:52)
[2024-09-02] MEDS ORDERED: ONDANSETRON 4 MG/2 ML VIAL ONE (08:52)
[2024-09-02] MEDS ORDERED: PROPOFOL 10 MG/ML 20 ML VIAL IV ONE (08:52)
[2024-09-02] MEDS: PROCHLORPERAZINE INJ 10 MG/2 ML VIAL IVP PRN (10:50)
--- NOTE | 2024-09-02 10:55 | P.PCN ---
Date of Procedure: 09/02/24 Procedure(s) Performed: PREOPERATIVE DIAGNOSIS: Malnutrition, intractable vomiting POSTOPERATIVE DIAGNOSIS: Same, distal esophagitis, hiatal hernia PROCEDURE: EGD with PEG tube placement SURGEON: Bony EBL: Minimal ANESTHESIA: Sedation COMPLICATIONS: None OPERATIVE PROCEDURE: The patient was placed in the supine position on the endoscopy table. The patient was sedated per anesthesia that time. The Olympus gastroscope was inserted into the oropharynx and passed under direct visualization to the region of the duodenum. No obstruction was seen. The pylorus was widely patent. The stomach was carefully inspected. The stomach was fully insufflated with air. The abdominal wall was inspected. The light was seen shining through the abdominal wall in the left upper quadrant. This was at the same location as the previous PEG tube site. This site was chosen for PEG tube placement. The area was prepped in the usual sterile fashion. This area was then localized with lidocaine. No air was evident when aspirating while advancing the localizing needle into the stomach until the stomach was reached. A small vertical incision was made using the scalpel. The Seldinger needle was advanced into the lumen of the stomach the wire was advanced. The wire was grasped with an endoscopic snare. The wire was pulled through the oropharynx. The catheter was then threaded over the guidewire and the guidewire and catheter were pulled anteriorly until the hub of the PEG tube catheter was seated against the anterior wall the stomach. The circular bolster was applied and tightened down. The endoscope was then readvanced into the stomach. There was no evidence of any bleeding and there was appropriate tightness on the bolster. The patient had evidence of a recurrent hiatal hernia that was small to medium sized. The patient had circumferential inflammatory changes at the distal esophagus measuring 1.5 cm in length. This did not appear malignant. This was just recently biopsied during his recent upper endoscopy. The scope was withdrawn. The catheter was cut appropriately. The dual port feeding adapter was applied. DISPOSITION: Stable to recovery room
[2024-09-02] MEDS: ACETAMINOPHEN TAB 325 MG TAB PO PRN (13:45)
--- NOTE | 2024-09-03 06:08 | P.PN ---
Subjective Progress Note Date: 09/02/24 68-year-old gentleman past medical history of cyclic vomiting syndrome presenting today for "dehydration". History is limited as patient and friend at bedside seem exasperated by having to provide further history. Patient has required multiple hospital admissions for similar symptoms. Today symptoms are similar to prior. He has no abdominal pain, shortness of breath or chest pain. No fevers or chills. No diarrhea, hematochezia. No black or bloody stools. Prior abdominal surgeries include prior cholecystectomy and prior feeding tube placement. Patient's friend states patient had a G-tube placed last summer and was ultimately removed in February when patient was able to gain weight. This was done by Dr. Pavon. Patient was discharged just discharged like [facility] on 08/23/2024 when admitted earlier for similar symptoms. Patient's friend at bedside, with whom he lives, states that he has been vomiting ever since discharge. He [place] taking Zofran, BuSpar, pantoprazole but is unable to keep any of his medications down. States patient was started on additional medications at time of discharge but however has not been able to keep any of them down due to nausea and vomiting. Emesis is nonbloody nonbilious. Of note patient has no history ACS, is a non-smoker, denies alcohol use. Infrequently uses marijuana, patient's friend at bedside states patient has not used marijuana recently. Blood work completed in ED reveals a WBC of 10.9, hemoglobin of 16.7 and p latelet count of 400, sodium 149, potassium 3.9, BUNs/creatinine of 26/0.95, magnesium elevated at 2.4, AST slightly elevated at 73, troponin elevated at 0.149 UA is unremarkable Urine drug screen is positive for marijuana 08/30/2024 Patient is seen and evaluated in room at bedside; continues to report nausea and vomiting with very poor oral intake; no further complaints of chest pain Vital signs reviewed and stable with temperature of 98, pulse 73, respiration 14 and blood pressure 113/67 Blood work reveals WBC 6.8, hemoglobin of 12.8 and platelet count of 181, sodium 142, potassium 2.7, BUNs/creatinine of 7/0.49 -Cardiology is following for elevated troponin and abnormal EKG; echocardiogram has been ordered; further recommendations after echocardiogram is completed and reported; patient remains on IV heparin General Surgery on board; small bowel follow-through is ordered; pending results, possible need for PEG tube placement 24-hour interval change 08/31/2024 Patient is seen resting in bed; continues to report emesis Vital signs are stable temperature 98.1, pulse 67, respiration 18 and blood pressure 110/63 Labs reveal WBC 8.7, hemoglobin of 14 and platelet count of 185; sodium 138, potassium 3.5, BUNs/creatinine of 8/0.50 and blood glucose 81 -General Surgery on board and tentatively planning for repeat EGD with possible PEG tube placement on Monday Cardiology following for elevated cardiac enzymes and abnormal EKG; echocar diogram reveals normal LV systolic function; cardiology recommending to discontinue heparin; no further workup recommended 09/01/2024 Patient seen and evaluated resting in bed; patient has a pillow over his head covering most of his face; reports he is feeling sleepy and wants to rest Vital signs are stable temperature of 97.4, pulse 95, respiration 12 and blood pressure 143/98 Labs revealed sodium 136, potassium 2.8 down from 3.5 yesterday, BUNs/creatinine remained stable at baseline --We will supplement potassium with 60 mEq IV x 1; will repeat potassium level later in the day and supplement as needed General Surgery on board; PEG tube placement has been discussed with patient for nutritional support and he is agreeable; patient tentatively scheduled for EGD and PEG tube placement tomorrow morning 09/02/2024 Patient is seen in follow-up today with cardiology and general surgery following. Patient is continued on telemetry monitoring with no plans of intervention per cardiology at this time. Patient is scheduled to undergo PEG tube placement with general surgery today and is currently NPO. Potassium mildly low and being replaced and will follow-up on repeat labs. Will consult case management as well as patient will need tube feedings and home care ar ranged in the outpatient setting. Patient is currently afebrile with no reports of chest pain or shortness of breath. Patient continues to have frothy sputum and dry heaves with some nausea. This has been chronic and ongoing for quite some time. Review of systems: Constitutional: reports of fatigue, no fever, or chills Cardiovascular: No reports of chest pain or palpitations Respiratory: No reports of shortness of breath or cough GI: reports of intermittent nausea with dry heaves, no vomiting, or diarrhea : No reports of dysuria or retention Neurovascular: reports of generalized weakness All medications have been reviewed Physical exam: Gen: This is a 68-year-old male who is awake, alert and oriented x 3, thin built, appears older than stated age, cachectic with significant muscle wasting noted HEENT: Head is atraumatic, normocephalic. Pupils equal, round. Sclerae is anicteric. NECK: Supple. No JVD. No lymphadenopathy. No thyromegaly. LUNGS: Diminished breath sounds bilaterally otherwise clear to auscultation. No wheezes or rhonchi. No intercostal retractions. HEART: S1, S2 are muffled ABDOMEN: Soft. Thin. Bowel sounds are present. No masses. No tenderness. EXTREMITIES: No pedal edema. No calf tenderness. NEUROLOGICAL: Patient is awake, alert and oriented x3. Cranial nerves 2 through 12 are grossly intact. Assessment: -Elevated troponin, 1.15, no reports of chest pain -Intractable nausea and vomiting; likely cyclic vomiting syndrome -Mild transaminitis; likely related to intractable vomiting -Hyperlipidemia; Lipitor 40 mg p.o. nightly -Hypertension; metoprolol 25 mg twice daily -Anxiety/depression; BuSpar 7.5 mg twice daily; Zoloft 25 mg daily -GI prophylaxis -DVT prophylaxis; SCDs -full code Plan: Patient being followed by cardiology and general surgery scheduled to undergo PEG tube placement today. Patient remains n.p.o. and continues to have copious amounts of frothy sputum with continued nausea and dry heaving. Will await surgical report Cardiology following obtaining a repeat EKG and 2D echo is ordered and pending at this time. Patient denies having any chest pain, shortness of breath, or palpitations at this time. Recommend to continue telemetry monitoring Repeat labs ordered for a.m. and will replace electrolytes per protocol Consult to dietary for tube feedings once approved to initiate per surgery Consult case management to arrange for outpatient tube feeds and home care on discharge as patient plans on returning home Due to multiple complex medical issues, overall prognosis is guarde The impression and plan of care has been dictated by Yanira Linda, Nurse Practitioner as directed. Dr. Jamir MD I have performed a history and examination and MDM of this patient, discussed the same with the dictator, and agree with the dictator's assessment and plan as written ,documented as a scribe. Based on total visit time, I have performed more than 50% of the visit. Objective - Vital Signs Vital signs: Vital Signs Temp 97.5 F L 09/02/24 09:25 Pulse 88 09/02/24 10:53 Resp 16 09/02/24 10:53 BP 126/87 09/02/24 10:53 Pulse Ox 97 09/02/24 10:53 FiO2 Intake & Output 09/01/24 09/02/24 09/02/24 18:59 06:59 18:59 Intake Total 1640 Output Total 1350 1300 Balance 290 -1300 Weight 62.5 kg 63.5 kg 63.5 kg Intake: Intake, IV Titration 1640 Amount Potassium Chloride 10 meq 600 In Water For Injection 1 100ml.bag @ 100 mls/hr IVPB Q1HR [facility] Rx#: [id number] Sodium Chloride 0.9% 1, 1040 000 ml @ 130 mls/hr IV . Q7H42M [facility] Rx#:[id number] Output: Urine 1350 1300 Other: Voiding Method Urinal Urinal # Voids 2 - Labs CBC & Chem 7: 09/02/24 05:36 09/02/24 05:36 Labs: Abnormal Lab Results - Last 24 Hours (Table) 09/01/24 09/02/24 09/02/24 Range/Units 20:06 05:36 05:36 RDW 17.3 H (11.5-15.5) % Sodium 136 L (137-145) mmol/L Potassium 3.2 L (3.5-5.1) mmol/L BUN 3 L (9-20) mg/dL Creatinine 0.48 L (0.66-1.25) mg/dL Glucose 58 L (74-99) mg/dL Calcium 7.8 L (8.4-10.2) mg/dL
[2024-09-03 09:02] LABS: African American GFR (CKD) >90 (>60 ml/min/1.73 sqM); Anion Gap 13 mmol/L; Blood Urea Nitrogen 3 mg/dL (9-20); Calcium 7.4 mg/dL (8.4-10.2); Carbon Dioxide 22 mmol/L (22-30); Chloride 103 mmol/L (98-107); Glucose 70 mg/dL (74-99); Magnesium 1.4 mg/dL (1.6-2.3); Non-African American GFR(CKD) >90 (>60 ml/min/1.73 sqM); Potassium 2.8 mmol/L (3.5-5.1); Sodium 138 mmol/L (137-145)
[2024-09-03 09:11] LABS: Anisocytosis Slight; Basophils % (A) 0 %; Eosinophils % (A) 0 %; HGB 12.8 gm/dL (13.0-17.5); Lymphocytes # (A) 0.8 k/uL (1.0-4.8); Lymphocytes % (A) 6 %; MCH 29.5 pg (25.0-35.0); MCHC 32.1 g/dL (31.0-37.0); MCV 92.1 fL (80.0-100.0); Mean Platelet Volume 11.1; Monocytes # (A) 0.5 k/uL (0-1.0); Monocytes % (A) 4 %; Neutrophils # (A) 12.2 k/uL (1.3-7.7); Neutrophils % (A) 90 %; Platelet Count 201 k/uL (150-450); RBC 4.35 m/uL (4.30-5.90); RDW 17.9 % (11.5-15.5); WBC 13.6 k/uL (3.8-10.6)
[2024-09-03 11:19] VITALS: BMI 21.4
--- NOTE | 2024-09-03 12:59 | P.PN ---
Subjective Progress Note Date: 09/03/24 SURGICAL PROGRESS NOTE CHIEF COMPLAINT: Vomiting HISTORY OF PRESENT ILLNESS: Patient postop day # 1 status post EGD with PEG tube placement. Patient complains of coughing up phlegm with some blood noted. Nursing staff reported vomiting blood. But patient stating that this is different than his vomiting that he has been dealing with. He denies any abdominal pain. Afebrile. Vitals stable. WBC 13.6 Hgb 12.8 platelets 201. Sodium is 138 potassium is 2.8 creatinine 0.48 magnesium 1.4. Patient reports occasional marijuana use. PHYSICAL EXAM: VITAL SIGNS: Reviewed. GENERAL: Well-developed in no acute distress. ABDOMEN: Soft. Nondistended. Nontender. PEG tube site clean dry and intact NEUROLOGIC: Alert and oriented. Cranial nerves II through XII grossly intact. ASSESSMENT: 1. Intractable vomiting 2. Severe protein calorie malnutrition 3. Distal esophagitis and a hiatal hernia 4. Hemoptysis 5. Hypomagnesemia and hypokalemia PLAN: -Place PEG tube to drainage -Continue to monitor -Hold on starting tube feeds -Keep patient n.p.o. -Agree with pulmonary consult -Replace magnesium and potassium -Continue antiemetics -Continue IV Protonix Physician Director Of Housing And Energy Services note has been reviewed by physician. Signing provider agrees with the documented findings, assessment, and plan of care. I have personally seen and examined the patient, reviewed the TELEVISION INSTALLER HELPER /PAs history, exam and MDM and agree with the assessment and plan as written. Based on total visit time, I have performed more than 50% of the visit. As above: Patient apparently had some hematemesis or hemoptysis earlier today. PEG tube was placed to drainage. Bilious fluid in the container. Begin tube feeds. Will follow. Objective - Vital Signs Vital signs: Vital Signs Temp 97.9 F 09/03/24 10:51 Pulse 94 09/03/24 10:51 Resp 16 09/03/24 10:51 BP 101/64 09/03/24 10:51 Pulse Ox 96 09/03/24 10:51 FiO2 Intake & Output 09/02/24 09/03/24 09/03/24 18:59 06:59 18:59 Output Total 400 775 200 Balance -400 -706 -200 Weight 63.5 kg 64 kg 64 kg Output: Urine 400 775 200 Other: Voiding Method Urinal Urinal Urinal - Labs CBC & Chem 7: 09/03/24 08:08 09/03/24 08:08 Labs: Abnormal Lab Results - Last 24 Hours (Table) 09/03/24 09/03/24 Range/Units 08:08 08:08 WBC 13.6 H (3.8-10.6) k/uL Hgb 12.8 L (13.0-17.5) gm/dL RDW 17.9 H (11.5-15.5) % Neutrophils # 12.2 H (1.3-7.7) k/uL Lymphocytes # 0.8 L (1.0-4.8) k/uL Potassium 2.8 L (3.5-5.1) mmol/L BUN 3 L (9-20) mg/dL Creatinine 0.48 L (0.66-1.25) mg/dL Glucose 70 L (74-99) mg/dL Calcium 7.4 L (8.4-10.2) mg/dL Magnesium 1.4 L (1.6-2.3) mg/dL
[2024-09-03] MEDS: POTASSIUM CHLORIDE 10 MEQ in WATER FOR INJECTION 1 100ML.BAG IVPB SCH (14:06)
[2024-09-03] MEDS: MAGNESIUM SULFATE-D5W PMX 1 GM in DEXTROSE/WATER 1 100ML.BAG IVPB SCH (14:06)
[2024-09-03] MEDS ORDERED: Potassium Replacement Protocol 1 EACH MISC MISCELLANE PRN (15:18)
[2024-09-03] MEDS ORDERED: Magnesium Replacement Protocol 1 EACH MISC MISCELLANE PRN (15:19)
[2024-09-03] MEDS ORDERED: MAGNESIUM SULFATE-D5W PMX 1 GM in DEXTROSE/WATER 1 100ML.BAG IVPB SCH (15:30)
--- NOTE | 2024-09-03 16:55 | P.PN ---
Subjective Progress Note Date: 09/03/24 The patient is a 68-year-old gentleman who is known to our service from before with a past medical history significant for hypertension and dyslipidemia and history of esophageal stricture with multiple dilatation before as well as chronic nausea and vomiting. The patient was admitted to the hospital with the nausea and vomiting associated with mild abdominal discomfort. No cardiovascular symptoms of any chest pain or chest discomfort or shortness of breath or syncope or presyncope or heart racing or fluttering. For some reason he ended having a troponin came to be mildly abnormal. The EKG showed sinus mechanism with T wave inversion globally concerning for underlying ischemia. Currently he is not having any chest pain or chest discomfort or shortness of breath and he never had any chest pain or chest discomfort or shortness of breath but he underwent a heart catheterization in 2018 showed normal coronaries but the echo from 2023 showed normal LV systolic function with no significant va lvular abnormalities. He was seen by the GI service and he underwent yesterday and EGD with dilatation of the esophageal for esophageal stricture. The physical examination is remarkable for regular rhythm with a soft systolic murmur at the right upper sternal border with diminished breathing sounds bilaterally and no edema was noted in the lower extremities August 30, 2024 The patient was seen and evaluated this morning with he continues to have nausea and vomiting but no pain in the chest. The echo still pending. Examination appears to be unchanged compared to before. He continues to be on heparin IV. August 31, 2024 The patient was seen and evaluated this morning. He is still experiencing nausea and vomiting. He is unable to take any oral medication. The echo showed normal LV systolic function. No symptoms of chest pain or chest discomfort at this point. The physical examination is remarkable for regular rhythm with a soft systolic murmur and clear breathing sounds bilaterally and no edema was noted in the lower extremities September 01, 2024 The patient was seen and evaluated this morning and he continues to have nausea and vomiting but no symptoms of chest pain or chest discomfort. I am going to repeat the EKG to see if there is any changes compared to the previous one which showed global ischemia. The physical examination is remarkable for regular rhythm with a soft systolic murmur and clear breathing sounds bilaterally and no edema was noted. He is in process of having tube feeding. 09/02/2024 Patient underwent PEG tube placement She will continue to have abdominal pain nausea and vomiting Appears in distress 09/03/2024 Still continues to have nausea and vomiting, still in distress. Denies any chest pain chest pressure. No arrhythmias noticed on telemetry The physical examination is remarkable for regular rhythm with a soft systolic murmur and clear breathing sounds bilaterally and no edema was noted. PEG tube in place Assessment Deep T wave inversions with prolonged QTc Nausea and vomiting Difficulty swallowing Abnormal troponin Multiple comorbid conditions Pertinent cardiac testing Echocardiogram shows preserved LVEF with mild mitral regurgitation Plan Echocardiogram shows preserved EF and no signs of stress cardiomyopathy which is commonly seen in deep T wave inversions that this patient is having. Because of ongoing issues with significant nausea he is not an appropriate candidate for ischemic evaluation at this time. Would recommend avoiding all QTc prolonging medications at this time. Discontinue Zofran. Use Compazine for nausea if needed. Repeat EKG Would recommend ischemic evaluation with Lexiscan once patient nausea vomiting and acute GI issues resolved. Recommend outpatient follow-up with cardiology. Objective - Vital Signs Vital signs: Vital Signs Temp 97.9 F 09/03/24 10:51 Pulse 71 09/03/24 15:40 Resp 16 09/03/24 15:40 BP 136/71 09/03/24 15:40 Pulse Ox 97 09/03/24 15:40 FiO2 Intake & Output 09/02/24 09/03/24 09/03/24 18:59 06:59 18:59 Output Total 400 775 200 Balance -400 -775 -200 Weight 63.5 kg 64 kg 64 kg Output: Urine 400 775 200 Other: Voiding Method Urinal Urinal Urinal - Labs CBC & Chem 7: 09/03/24 08:08 09/03/24 08:08 Labs: Abnormal Lab Results - Last 24 Hours (Table) 09/03/24 09/03/24 Range/Units 08:08 08:08 WBC 13.6 H (3.8-10.6) k/uL Hgb 12.8 L (13.0-17.5) gm/dL RDW 17.9 H (11.5-15.5) % Neutrophils # 12.2 H (1.3-7.7) k/uL Lymphocytes # 0.8 L (1.0-4.8) k/uL Potassium 2.8 L (3.5-5.1) mmol/L BUN 3 L (9-20) mg/dL Creatinine 0.48 L (0.66-1.25) mg/dL Glucose 70 L (74-99) mg/dL Calcium 7.4 L (8.4-10.2) mg/dL Magnesium 1.4 L (1.6-2.3) mg/dL
[2024-09-03 17:18] LABS: Prothrombin Time 20.6 sec (10.0-12.5)
[2024-09-03 19:26] LABS: Anisocytosis Slight; Basophils % (A) 0 %; Eosinophils # (A) 0.1 k/uL (0-0.7); Eosinophils % (A) 1 %; HCT 41.8 % (39.0-53.0); HGB 13.7 gm/dL (13.0-17.5); Lymphocytes # (A) 1.1 k/uL (1.0-4.8); Lymphocytes % (A) 11 %; MCH 29.5 pg (25.0-35.0); MCHC 32.7 g/dL (31.0-37.0); MCV 90.2 fL (80.0-100.0); Mean Platelet Volume 9.5; Monocytes # (A) 0.3 k/uL (0-1.0); Monocytes % (A) 3 %; Neutrophils # (A) 8.8 k/uL (1.3-7.7); Neutrophils % (A) 85 %; Platelet Count 208 k/uL (150-450); RBC 4.63 m/uL (4.30-5.90); RDW 17.6 % (11.5-15.5); WBC 10.4 k/uL (3.8-10.6)
[2024-09-03] MEDS: PANTOPRAZOLE 40 MG/10 ML VIAL IV SCH (20:13)
[2024-09-04 00:26] LABS: Glucose,Whole Blood 95 mg/dL (70-110)
[2024-09-04 06:32] LABS: Glucose,Whole Blood 107 mg/dL (70-110)
[2024-09-04 07:11] LABS: Anisocytosis Slight; Basophils % (A) 0 %; Eosinophils # (A) 0.1 k/uL (0-0.7); Eosinophils % (A) 1 %; HCT 35.8 % (39.0-53.0); HGB 11.8 gm/dL (13.0-17.5); Lymphocytes % (A) 12 %; MCH 30.2 pg (25.0-35.0); MCHC 33.1 g/dL (31.0-37.0); MCV 91.3 fL (80.0-100.0); Monocytes # (A) 0.4 k/uL (0-1.0); Monocytes % (A) 5 %; Neutrophils # (A) 6.8 k/uL (1.3-7.7); Neutrophils % (A) 81 %; Platelet Count 189 k/uL (150-450); RBC 3.92 m/uL (4.30-5.90); RDW 17.8 % (11.5-15.5); WBC 8.4 k/uL (3.8-10.6)
[2024-09-04 07:22] LABS: African American GFR (CKD) >90 (>60 ml/min/1.73 sqM); Anion Gap 7 mmol/L; Blood Urea Nitrogen 3 mg/dL (9-20); Calcium 7.2 mg/dL (8.4-10.2); Carbon Dioxide 28 mmol/L (22-30); Chloride 100 mmol/L (98-107); Glucose 107 mg/dL (74-99); Magnesium 1.8 mg/dL (1.6-2.3); Non-African American GFR(CKD) >90 (>60 ml/min/1.73 sqM); Potassium 3.1 mmol/L (3.5-5.1); Sodium 135 mmol/L (137-145)
[2024-09-04] MEDS ORDERED: Potassium Replacement Protocol 1 EACH MISC MISCELLANE PRN (09:21)
--- NOTE | 2024-09-04 09:25 | P.PN ---
Subjective Progress Note Date: 09/03/24 68-year-old gentleman past medical history of cyclic vomiting syndrome presenting today for "dehydration". History is limited as patient and friend at bedside seem exasperated by having to provide further history. Patient has required multiple hospital admissions for similar symptoms. Today symptoms are similar to prior. He has no abdominal pain, shortness of breath or chest pain. No fevers or chills. No diarrhea, hematochezia. No black or bloody stools. Prior abdominal surgeries include prior cholecystectomy and prior feeding tube placement. Patient's friend states patient had a G-tube placed last summer and was ultimately removed in February when patient was able to gain weight. This was done by Dr. Pavon. Patient was discharged just discharged like [facility] on 08/23/2024 when admitted earlier for similar symptoms. Patient's friend at bedside, with whom he lives, states that he has been vomiting ever since discharge. He [place] taking Zofran, BuSpar, pantoprazole but is unable to keep any of his medications down. States patient was started on additional medications at time of discharge but however has not been able to keep any of them down due to nausea and vomiting. Emesis is nonbloody nonbilious. Of note patient has no history ACS, is a non-smoker, denies alcohol use. Infrequently uses marijuana, patient's friend at bedside states patient has not used marijuana recently. Blood work completed in ED reveals a WBC of 10.9, hemoglobin of 16.7 and p latelet count of 400, sodium 149, potassium 3.9, BUNs/creatinine of 26/0.95, magnesium elevated at 2.4, AST slightly elevated at 73, troponin elevated at 0.149 UA is unremarkable Urine drug screen is positive for marijuana 08/30/2024 Patient is seen and evaluated in room at bedside; continues to report nausea and vomiting with very poor oral intake; no further complaints of chest pain Vital signs reviewed and stable with temperature of 98, pulse 73, respiration 14 and blood pressure 113/67 Blood work reveals WBC 6.8, hemoglobin of 12.8 and platelet count of 181, sodium 142, potassium 2.7, BUNs/creatinine of 7/0.49 -Cardiology is following for elevated troponin and abnormal EKG; echocardiogram has been ordered; further recommendations after echocardiogram is completed and reported; patient remains on IV heparin General Surgery on board; small bowel follow-through is ordered; pending results, possible need for PEG tube placement 24-hour interval change 08/31/2024 Patient is seen resting in bed; continues to report emesis Vital signs are stable temperature 98.1, pulse 67, respiration 18 and blood pressure 110/63 Labs reveal WBC 8.7, hemoglobin of 14 and platelet count of 185; sodium 138, potassium 3.5, BUNs/creatinine of 8/0.50 and blood glucose 81 -General Surgery on board and tentatively planning for repeat EGD with possible PEG tube placement on Monday Cardiology following for elevated cardiac enzymes and abnormal EKG; echocar diogram reveals normal LV systolic function; cardiology recommending to discontinue heparin; no further workup recommended 09/01/2024 Patient seen and evaluated resting in bed; patient has a pillow over his head covering most of his face; reports he is feeling sleepy and wants to rest Vital signs are stable temperature of 97.4, pulse 95, respiration 12 and blood pressure 143/98 Labs revealed sodium 136, potassium 2.8 down from 3.5 yesterday, BUNs/creatinine remained stable at baseline --We will supplement potassium with 60 mEq IV x 1; will repeat potassium level later in the day and supplement as needed General Surgery on board; PEG tube placement has been discussed with patient for nutritional support and he is agreeable; patient tentatively scheduled for EGD and PEG tube placement tomorrow morning 09/02/2024 Patient is seen in follow-up today with cardiology and general surgery following. Patient is continued on telemetry monitoring with no plans of intervention per cardiology at this time. Patient is scheduled to undergo PEG tube placement with general surgery today and is currently NPO. Potassium mildly low and being replaced and will follow-up on repeat labs. Will consult case management as well as patient will need tube feedings and home care ar ranged in the outpatient setting. Patient is currently afebrile with no reports of chest pain or shortness of breath. Patient continues to have frothy sputum and dry heaves with some nausea. This has been chronic and ongoing for quite some time. 09/03/2024 Patient is seen in follow-up this morning and noted to have been vomiting bright red blood and is status post PEG tube placement. Hemoglobin did drop from 13.7- 12.8 and is noted to have dark blood in the PEG tube, mild coffee ground noted. Recommend H&H monitoring and transfuse if continuing to drop. Patient also with a low potassium of 2.8 and magnesium 1.6 being replaced per protocol will follow-up on repeat labs. Patient was scheduled to undergo swallow study with speech although unable to as patient was vomiting blood. Speech will reevaluate. General surgery is aware and following. Dietary consulted for PEG tube initiation. Review of systems: Constitutional: reports of fatigue, no fever, or chills Cardiovascular: No reports of chest pain or palpitations Respiratory: No reports of shortness of breath or cough GI: reports of intermittent nausea with dry heaves, vomiting bright red blood x 2, or diarrhea : No reports of dysuria or retention Neurovascular: reports of generalized weakness All medications have been reviewed Physical exam: Gen: This is a 68-year-old male who is awake, alert and oriented x 3, thin built, appears older than stated age, cachectic with significant muscle wasting noted HEENT: Head is atraumatic, normocephalic. Pupils equal, round. Sclerae is anicteric. NECK: Supple. No JVD. No lymphadenopathy. No thyromegaly. LUNGS: Diminished breath sounds bilaterally otherwise clear to auscultation. No wheezes or rhonchi. No intercostal retractions. HEART: S1, S2 are muffled ABDOMEN: Soft. Thin. Bowel sounds are present. No masses. No tenderness. EXTREMITIES: No pedal edema. No calf tenderness. NEUROLOGICAL: Patient is awake, alert and oriented x3. Cranial nerves 2 through 12 are grossly intact. Assessment: -Elevated troponin, 1.15, no reports of chest pain -Intractable nausea and vomiting; likely cyclic vomiting syndrome, status post PEG tube placement -Hemoptysis, possible acute GI bleed, hematemesis and coffee-ground noted in the PEG tube -Mild transaminitis; likely related to intractable vomiting -Hyperlipidemia; Lipitor 40 mg p.o. nightly -Electrolyte abnormalities including hypokalemia and hypomagnesemia, being replaced -Hypertension; metoprolol 25 mg twice daily -Severe protein calorie malnutrition with a BMI of 22 -Anxiety/depression; BuSpar 7.5 mg twice daily; Zoloft 25 mg daily -Distal esophagitis and hiatal hernia noted on recent EGD -GI prophylaxis -DVT prophylaxis; SCDs -full code Plan: Patient being followed by cardiology and general surgery and is status post PEG tube placement. There is some bleeding that appears coffee-ground in the PEG tube and has been placed to drainage and tube feeds will be on hold and patient will be n.p.o. per general surgery. Patient did vomit bright red blood and was scheduled to undergo speech evaluation although this was postponed until possibly 09-04-24 if vomiting improves. Monitor hemoglobin closely Cardiology following obtaining a repeat EKG and 2D echo is ordered and pending at this time. Patient denies having any chest pain, shortness of breath, or palpitations at this time. Recommend to continue telemetry monitoring Repeat labs ordered for a.m. and will replace electrolytes per protocol. Potassium 2.8 and magnesium 1.6 being replaced and will follow-up on repeat labs. Consult to dietary for tube feedings once approved to initiate per surgery Consult case management to arrange for outpatient tube feeds and home care on discharge as patient plans on returning home Due to multiple complex medical issues, overall prognosis is guarde The impression and plan of care has been dictated by Yanira Linda, Nurse Practitioner as directed. Dr. Jamir MD I have performed a history and examination and MDM of this patient, discussed the same with the dictator, and agree with the dictator's assessment and plan as written ,documented as a scribe. Based on total visit time, I have performed more than 50% of the visit. Objective - Vital Signs Vital signs: Vital Signs Temp 97.9 F 09/03/24 10:51 Pulse 94 09/03/24 14:04 Resp 16 09/03/24 14:04 BP 101/64 09/03/24 10:51 Pulse Ox 96 09/03/24 10:51 FiO2 Intake & Output 09/02/24 09/03/24 09/03/24 18:59 06:59 18:59 Output Total 400 775 200 Balance -400 -775 -200 Weight 63.5 kg 64 kg 64 kg Output: Urine 400 775 200 Other: Voiding Method Urinal Urinal Urinal - Labs CBC & Chem 7: 09/04/24 06:30 09/04/24 06:30 Labs: Abnormal Lab Results - Last 24 Hours (Table) 09/03/24 09/03/24 Range/Units 08:08 08:08 WBC 13.6 H (3.8-10.6) k/uL Hgb 12.8 L (13.0-17.5) gm/dL RDW 17.9 H (11.5-15.5) % Neutrophils # 12.2 H (1.3-7.7) k/uL Lymphocytes # 0.8 L (1.0-4.8) k/uL Potassium 2.8 L (3.5-5.1) mmol/L BUN 3 L (9-20) mg/dL Creatinine 0.48 L (0.66-1.25) mg/dL Glucose 70 L (74-99) mg/dL Calcium 7.4 L (8.4-10.2) mg/dL Magnesium 1.4 L (1.6-2.3) mg/dL
[2024-09-04] MEDS: POTASSIUM BICARBONATE/CIT AC 20 MEQ TABLET.EFF NG-TUBE SCH (10:43)
[2024-09-04 12:01] LABS: Glucose,Whole Blood 136 mg/dL (70-110)
--- NOTE | 2024-09-04 12:37 | P.PN ---
Subjective Progress Note Date: 09/04/24 SURGICAL PROGRESS NOTE CHIEF COMPLAINT: Vomiting HISTORY OF PRESENT ILLNESS: Patient postop day # 2 status post EGD with PEG tube placement. Patient no longer coughing up phlegm with blood. There is no further vomiting. He was started on the tube feeds yesterday. And is currently tolerating tube feeds at 20 mL/h. Potassium 3.1 and being replaced. Mg 2.1 PHYSICAL EXAM: VITAL SIGNS: Reviewed. GENERAL: Well-developed in no acute distress. ABDOMEN: Soft. Nondistended. Nontender. PEG tube site clean dry and intact NEUROLOGIC: Alert and oriented. Cranial nerves II through XII grossly intact. ASSESSMENT: 1. Intractable vomiting 2. Severe protein calorie malnutrition 3. Distal esophagitis and a hiatal hernia 4. Hemoptysis resolved 5. Hypomagnesemia and hypokalemia PLAN: -Continue to titrate tube feeds -Patient can be discharged from surgical standpoint -Continue to correct electrolytes Physician Sponge Press Operator note has been reviewed by physician. Signing provider agrees with the documented findings, assessment, and plan of care. Objective - Vital Signs Vital signs: Vital Signs Temp 98.2 F 09/04/24 07:00 Pulse 88 09/04/24 07:00 Resp 18 09/04/24 07:00 BP 121/76 09/04/24 07:00 Pulse Ox 95 09/04/24 07:00 FiO2 Intake & Output 09/03/24 09/04/24 09/04/24 18:59 06:59 18:59 Intake Total 10 40 Output Total 500 300 Balance -490 40 -300 Weight 64 kg 65.5 kg Intake: Tube Feeding 10 40 Output: Urine 500 300 Other: Voiding Method Urinal Urinal - Labs CBC & Chem 7: 09/04/24 06:30 09/04/24 06:30 Labs: Abnormal Lab Results - Last 24 Hours (Table) 09/03/24 09/03/24 09/04/24 Range/Units 16:37 19:08 01:04 RBC (4.30-5.90) m/uL Hgb (13.0-17.5) gm/dL Hct (39.0-53.0) % RDW 17.6 H (11.5-15.5) % Neutrophils # 8.8 H (1.3-7.7) k/uL PT 20.6 H (10.0-12.5) sec INR 2.0 H (<1.2) Sodium (137-145) mmol/L Potassium 3.2 L (3.5-5.1) mmol/L BUN (9-20) mg/dL Creatinine (0.66-1.25) mg/dL Glucose (74-99) mg/dL POC Glucose (mg/dL) (70-110) mg/dL Calcium (8.4-10.2) mg/dL 09/04/24 09/04/24 09/04/24 Range/Units 06:30 06:30 12:00 RBC 3.92 L (4.30-5.90) m/uL Hgb 11.8 L (13.0-17.5) gm/dL Hct 35.8 L (39.0-53.0) % RDW 17.8 H (11.5-15.5) % Neutrophils # (1.3-7.7) k/uL PT (10.0-12.5) sec INR (<1.2) Sodium 135 L (137-145) mmol/L Potassium 3.1 L (3.5-5.1) mmol/L BUN 3 L (9-20) mg/dL Creatinine 0.43 L (0.66-1.25) mg/dL Glucose 107 H (74-99) mg/dL POC Glucose (mg/dL) 136 H (70-110) mg/dL Calcium 7.2 L (8.4-10.2) mg/dL
--- NOTE | 2024-09-04 12:51 | XR ---
EXAMINATION TYPE: XR chest 1V portable DATE OF EXAM: 09/04/2024 12:24 PM COMPARISON: 08/28/2024 CLINICAL INDICATION: Male, 68 years old with history of sob, , FINDINGS: Patient rotated towards the right ultrasound and normal cardiac and mediastinal contours. Diminished lung volumes from prior. Skinfolds noted at the right lower lung with fluid thickening the minor fiss ure and some patchy density at the right base. Heart normal size. Moderate to severe degenerative saranya nge left AC joint. IMPRESSION: New small right pleural effusion with adjacent patchy right lower lung atelectasis and/or infiltrate. [facility], , 09/04/2024 12:49 PM
--- NOTE | 2024-09-04 16:08 | P.CNPUL ---
History of Present Illness Consult date: 09/04/24 Reason for consult: abnormal CXR/CT History of present illness: 68-year-old male patient is being seen in consultation suspecting an aspiration/aspiration pneumonia. The patient has chronic difficulties with esophageal stricture and the patient has undergone multiple dilatation in the past and the patient suffers from chronic nausea and emesis. The patient also has history of hypertension hyperlipidemia in addition. He was admitted to the hospital because of nausea and emesis associated with some mild abdominal discomfort. No chest pain. No significant shortness of breath time of the admission to the hospital. The patient has had previous cardiac catheterization back in 2019 with normal coronaries. He has a preserved LV function. GI services were involved in his case and the patient was given a PEG tube for enteral feeding and nutritional support. The patient is currently on Jevity and is tolerating the enteral feeding for nutritional support. Meanwhile, he has developed some new infiltration based on the chest x-ray that was done on 09/04/2024. Reviewed the chest x-ray and the patient has a new small right-sided pleural effusion and a patchy atelectasis/infiltrates in the right lung. Nevertheless, he is afebrile. He is hemodynamically stable. His pulse ox is 98% on room air oxygen. No significant sputum production. No pleurisy or hemoptysis. The white cell count of 8.4, hemoglobin 11.8 and a platelet count of 189. Sodium is at 135, potassium level is at 3.1, BUN 3 with a creatinine of 0.43. The patient is on Ventolin 4 times daily, and as needed. No antibiotics for now. He is on normal saline at rate of 50 cc an hour. Rest of the medications are essentially unchanged. Review of Systems Constitutional: Reports fatigue, Reports weight loss Eyes: denies as per HPI, denies blurred vision, denies bulging eye, denies decreased vision, denies diplopia, denies discharge, denies dry eye, denies irritation, denies itching, denies pain, denies photophobia, denies loss of peripheral vision, denies loss of vision, denies tunnel vision/blind spots Ears: deny: decreased hearing, ear discharge, earache, tinnitus Ears, nose, mouth and throat: Reports as per HPI Breasts: absent: as per HPI, gynecomastia Cardiovascular: Reports as per HPI Respiratory: Reports as per HPI Gastrointestinal: Reports abdominal pain, Reports nausea, Reports vomiting Genitourinary: Reports as per HPI Musculoskeletal: Reports as per HPI Musculoskeletal: absent: ankle pain, ankle stiffness, ankle swelling, as per HPI, elbow pain, elbow stiffness, elbow swelling, foot pain, foot stiffness, foot swelling, hand pain, hand stiffness, hand swelling, hip pain, hip stiffness, hip swelling, knee pain, knee stiffness, knee swelling, shoulder pain, shoulder stiffness, shoulder swelling, wrist pain, wrist stiffness, wrist swelling Integumentary: Reports as per HPI Neurological: Reports as per HPI Psychiatric: Reports as per HPI Endocrine: Reports as per HPI Hematologic/Lymphatic: Reports easy bleeding Allergic/Immunologic: Reports as per HPI Past Medical History Past Medical History: Asthma, Coronary Artery Disease (CAD), Chest Pain / Angina, CVA/TIA, GERD/Reflux, Hyperlipidemia, Hypertension, Pneumonia, Rheumatoid Arthritis (RA) Additional Past Medical History / Comment(s): MIGRAINES, HEART MURMUR, hx HIATAL HERNIA, ANEMIA, one dr told him he had a stroke at one time-no effects, varicose veins, history of incarcerated per esophageal hernia, status post robotic-assisted paraesophageal hernia repair and Frederick fundoplication on 04/12/2022. History of Any Multi-Drug Resistant Organisms: None Reported Past Surgical History: Cholecystectomy, Heart Catheterization, Hernia Repair, Orthopedic Surgery Additional Past Surgical History / Comment(s): Lt achilles tendon,RT SHOULDER surgery, RT ACHILLES TENDON reattached, HEMORRHOIDECTOMY, 13 FATTY TUMORS removed. left hand index finger surgery after injury, EGD WITH DILATION, paraesophageal hernia repair with Frederick fundoplication on 04/12/2022. PEG tube Past Anesthesia/Blood Transfusion Reactions: No Reported Reaction Additional Past Anesthesia/Blood Transfusion Reaction / Comment(s): no hx blood transfusion Past Psychological History: Anxiety, Depression Smoking Status: Former smoker Past Alcohol Use History: None Reported Past Drug Use History: Marijuana - Past Family History Mother Family Medical History: Cancer Father Additional Family Medical History / Comment(s): thinks aneurysm Medications and Allergies Home Medications Medication Instructions Recorded Confirmed Type Albuterol Sulfate [Albuterol 2 puff PO RT-Q4H PRN 07/30/24 08/28/24 History Sulfate Hfa] Ferrous Sulfate [Iron (65 MG 325 mg PO DAILY 07/30/24 08/28/24 History Elemental)] Metoprolol Tartrate [Lopressor] 25 mg PO BID-W/MEALS 07/30/24 08/28/24 History Nitroglycerin Sl Tabs [Nitrostat] 0.4 mg SUBLINGUAL Q5M PRN 07/30/24 08/28/24 History Pantoprazole [Protonix] 40 mg PO DAILY 07/30/24 08/28/24 History Sertraline [Zoloft] 25 mg PO DAILY 07/30/24 08/28/24 History busPIRone HCL [Buspar] 7.5 mg PO BID-W/MEALS 07/30/24 08/28/24 History Ondansetron [Zofran] 4 mg PO Q8HR PRN #21 tab 08/12/24 08/28/24 Rx Acetaminophen Tab [Tylenol] 650 mg PO Q6H PRN 08/28/24 08/28/24 History Atorvastatin [Lipitor] 40 mg PO DAILY 08/28/24 08/28/24 History Folic Acid 1 mg PO DAILY 08/28/24 08/28/24 History Magnesium Oxide [Mag-Ox] See Taper PO DAILY 08/28/24 08/28/24 History Multivitamins, Thera [Multivitamin 1 tab PO DAILY 08/28/24 08/28/24 History (formulary)] Thiamine [Vitamin B-1] 100 mg PO DAILY 08/28/24 08/28/24 History Allergies Allergy/AdvReac Type Severity Reaction Status Date / Time No Known Allergies Allergy Verified 08/28/24 14:49 Physical Exam Vitals: Vital Signs Temp Pulse Resp BP Pulse Ox 09/04/24 07:00 98.2 F 88 18 121/76 95 09/04/24 04:20 98.2 F 88 16 121/75 96 09/04/24 00:00 98.8 F 83 18 94/56 95 09/03/24 21:27 16 09/03/24 20:10 98.0 F 66 16 128/84 98 09/03/24 15:40 71 16 136/71 97 09/03/24 14:04 94 16 Intake and Output 09/03/24 09/04/24 09/04/24 22:59 06:59 14:59 Intake Total 20 30 Output Total 300 Balance -280 30 Intake: Tube Feeding 20 30 Output: Urine 300 Other: Voiding Method Urinal Urinal Weight 65.5 kg The patient appeared well nourished and normally developed. Vital signs as documented. Head exam is unremarkable. No scleral icterus or corneal arcus noted. Neck is without jugular venous distension, thyromegaly, or carotid bruits. Carotid upstrokes are brisk bilaterally. Lungs are clear to auscultation and percussion. Cardiac exam reveals the PMI to be normally sized and situated. Rhythm is regular. First and second heart sounds normal. No murmurs, rubs or gallops. Abdominal exam reveals normal bowel sounds, no masses, no organomegaly and no aortic enlargement. The patient has a PEG tube in place for enteral feeding in situ support currently on [facility]. Extremities are nonedematous and both femoral and pedal pulses are normal. Examination of the skin revealed no evidence of significant rashes, suspicious appearing nevi or other concerning lesions. Neurologically, the patient is awake and alert and the patient does not have any focal neurological deficit. Cranial nerves are essentially intact. Results - Laboratory Findings CBC and BMP: 09/04/24 06:30 09/04/24 06:30 PT/INR, D-dimer PT 20.6 sec (10.0-12.5) H 09/03/24 16:37 INR 2.0 (<1.2) H 09/03/24 16:37 Abnormal lab findings: Abnormal Labs 08/28/24 08/28/24 08/28/24 13:16 13:16 13:16 WBC 10.9 H RBC Hgb Hct MCHC RDW 17.5 H Neutrophils # 9.2 H Lymphocytes # PT INR APTT Sodium 149 H Potassium Chloride BUN 26 H Creatinine Glucose 148 H POC Glucose (mg/dL) Hemoglobin A1c Calcium Magnesium 2.4 H AST 73 H Alkaline Phosphatase 144 H Troponin I 0.143 H* Urine Protein Urine Ketones Urine Bilirubin Hyaline Casts Urine Mucus U Marijuana (THC) Screen 08/28/24 08/28/24 08/28/24 13:16 16:47 16:53 WBC RBC Hgb Hct MCHC RDW Neutrophils # Lymphocytes # PT INR APTT Sodium Potassium Chloride BUN Creatinine Glucose POC Glucose (mg/dL) Hemoglobin A1c 6.6 H Calcium Magnesium AST Alkaline Phosphatase Troponin I 0.115 H* Urine Protein 1+ H Urine Ketones 1+ H Urine Bilirubin 1+ H Hyaline Casts 3 H Urine Mucus Few H U Marijuana (THC) Screen 08/28/24 08/28/24 08/29/24 16:53 19:36 10:32 WBC RBC Hgb Hct MCHC RDW 17.6 H Neutrophils # 8.8 H Lymphocytes # PT INR APTT Sodium Potassium Chloride BUN Creatinine Glucose POC Glucose (mg/dL) Hemoglobin A1c Calcium Magnesium AST Alkaline Phosphatase Troponin I 0.149 H* Urine Protein Urine Ketones Urine Bilirubin Hyaline Casts Urine Mucus U Marijuana (THC) Screen Detected H 08/29/24 08/29/24 08/29/24 10:32 11:46 14:53 WBC RBC Hgb Hct MCHC 30.8 L RDW 17.6 H Neutrophils # Lymphocytes # 0.9 L PT INR APTT Sodium 146 H Potassium Chloride 114 H BUN Creatinine 0.61 L Glucose 102 H POC Glucose (mg/dL) Hemoglobin A1c Calcium 7.8 L Magnesium AST Alkaline Phosphatase Troponin I 0.087 H* Urine Protein Urine Ketones Urine Bilirubin Hyaline Casts Urine Mucus U Marijuana (THC) Screen 08/29/24 08/29/24 08/30/24 14:53 21:27 06:58 WBC RBC Hgb Hct MCHC RDW Neutrophils # Lymphocytes # PT 15.5 H INR 1.5 H APTT 68.2 H Sodium Potassium 2.7 L* Chloride 108 H BUN 7 L Creatinine 0.49 L Glucose POC Glucose (mg/dL) Hemoglobin A1c Calcium 7.5 L Magnesium AST Alkaline Phosphatase Troponin I Urine Protein Urine Ketones Urine Bilirubin Hyaline Casts Urine Mucus U Marijuana (THC) Screen 08/30/24 08/30/24 08/31/24 06:58 06:58 08:15 WBC RBC Hgb 12.8 L Hct MCHC RDW 17.4 H 17.3 H Neutrophils # Lymphocytes # PT 15.0 H INR 1.4 H APTT Sodium Potassium Chloride BUN Creatinine Glucose POC Glucose (mg/dL) Hemoglobin A1c Calcium Magnesium AST Alkaline Phosphatase Troponin I Urine Protein Urine Ketones Urine Bilirubin Hyaline Casts Urine Mucus U Marijuana (THC) Screen 08/31/24 08/31/24 09/01/24 08:15 08:15 09:36 WBC RBC Hgb Hct MCHC RDW Neutrophils # Lymphocytes # PT INR APTT 31.9 H Sodium 136 L Potassium 2.8 L Chloride BUN 8 L 6 L Creatinine 0.50 L 0.53 L Glucose 61 L POC Glucose (mg/dL) Hemoglobin A1c Calcium 7.7 L 7.5 L Magnesium AST Alkaline Phosphatase Troponin I Urine Protein Urine Ketones Urine Bilirubin Hyaline Casts Urine Mucus U Marijuana (THC) Screen 09/01/24 09/02/24 09/02/24 20:06 05:36 05:36 WBC RBC Hgb Hct MCHC RDW 17.3 H Neutrophils # Lymphocytes # PT INR APTT Sodium 136 L Potassium 3.2 L Chloride BUN 3 L Creatinine 0.48 L Glucose 58 L POC Glucose (mg/dL) Hemoglobin A1c Calcium 7.8 L Magnesium AST Alkaline Phosphatase Troponin I Urine Protein Urine Ketones Urine Bilirubin Hyaline Casts Urine Mucus U Marijuana (THC) Screen 09/03/24 09/03/24 09/03/24 08:08 08:08 16:37 WBC 13.6 H RBC Hgb 12.8 L Hct MCHC RDW 17.9 H Neutrophils # 12.2 H Lymphocytes # 0.8 L PT 20.6 H INR 2.0 H APTT Sodium Potassium 2.8 L Chloride BUN 3 L Creatinine 0.48 L Glucose 70 L POC Glucose (mg/dL) Hemoglobin A1c Calcium 7.4 L Magnesium 1.4 L AST Alkaline Phosphatase Troponin I Urine Protein Urine Ketones Urine Bilirubin Hyaline Casts Urine Mucus U Marijuana (THC) Screen 09/03/24 09/04/24 09/04/24 19:08 01:04 06:30 WBC RBC 3.92 L Hgb 11.8 L Hct 35.8 L MCHC RDW 17.6 H 17.8 H Neutrophils # 8.8 H Lymphocytes # PT INR APTT Sodium Potassium 3.2 L Chloride BUN Creatinine Glucose POC Glucose (mg/dL) Hemoglobin A1c Calcium Magnesium AST Alkaline Phosphatase Troponin I Urine Protein Urine Ketones Urine Bilirubin Hyaline Casts Urine Mucus U Marijuana (THC) Screen 09/04/24 09/04/24 06:30 12:00 WBC RBC Hgb Hct MCHC RDW Neutrophils # Lymphocytes # PT INR APTT Sodium 135 L Potassium 3.1 L Chloride BUN 3 L Creatinine 0.43 L Glucose 107 H POC Glucose (mg/dL) 136 H Hemoglobin A1c Calcium 7.2 L Magnesium AST Alkaline Phosphatase Troponin I Urine Protein Urine Ketones Urine Bilirubin Hyaline Casts Urine Mucus U Marijuana (THC) Screen - Diagnostic Findings Chest x-ray: image reviewed Assessment and Plan Plan: Aspiration, likely chemical pneumonitis. Small right-sided pleural effusion and limited patchy infiltration of the right lung base. No leukocytosis. No fever. Bacterial pneumonia is felt to be less likely. Will monitor. The patient is oxygenation is stable and the patient is currently on room air oxygen. Post PEG tube insertion for chronic esophageal stricture and persistent nausea and emesis and abdominal discomfort. The patient was started on enteral feeding for nutritional support and the patient is currently on Jevity. Hypertension Hyperlipidemia Rheumatoid arthritis History of varicose veins History of incarcerated paraesophageal hiatal hernia supposed robotic assisted paraesophageal hernia repair and Frederick fundoplication that was performed on 04/12/2022. History of CVA/TIA Chronic anxiety/depression History of smoking History of marijuana use Plan Monitor oxygenation Monitor white count Repeat chest x-ray will neck 24 hours Continue enteral feeding for nutritional support Aspiration precautions Hold off antibiotic treatment unless his condition changes GI services and general surgery are both on the case Will continue to follow.
[2024-09-04 16:40] LABS: Glucose,Whole Blood 179 mg/dL (70-110)
[2024-09-05 00:04] LABS: Glucose,Whole Blood 145 mg/dL (70-110)
[2024-09-05] MEDS: CALCIUM CARBONATE 500 MG CHEWABLE PO PRN (06:14)
[2024-09-05 06:34] LABS: Glucose,Whole Blood 169 mg/dL (70-110)
[2024-09-05 08:32] LABS: Blood Urea Nitrogen 5.9 mg/dL (9.0-27.0); Calcium 7.5 mg/dL (8.7-10.3); Carbon Dioxide 29.7 mmol/L (21.6-31.8); Chloride 104 mmol/L (96-109); Glucose 161 mg/dL (70-110); Magnesium 1.7 mg/dL (1.5-2.4); Potassium 3.2 mmol/L (3.5-5.5); Sodium 141 mmol/L (135-145)
[2024-09-05 08:47] LABS: Basophils # (A) 0.03 X 10*3/uL (0.00-0.10); Basophils % (A) 0.4 %; Eosinophils # (A) 0.09 X 10*3/uL (0.04-0.35); Eosinophils % (A) 1.3 %; HCT 33.5 % (39.6-50.0); HGB 11.3 g/dL (13.0-17.0); Lymphocytes % (A) 12.9 %; MCH 30.5 pg (27.0-32.0); MCHC 33.7 g/dL (32.0-37.0); MCV 90.5 FL (80.0-97.0); Monocytes # (A) 0.47 X 10*3/uL (0.20-1.00); Monocytes % (A) 6.8 %; NRBC Per 100 WBC 0 X 10*3/uL (0.00-0.01); Neutrophils # (A) 5.39 X 10*3/uL (1.80-7.70); Neutrophils % (A) 77.5 %; Platelet Count 179 X 10*3/uL (140-440); RDW 19.3 % (11.5-14.5); WBC 6.96 X 10*3/uL (4.50-10.00)
--- NOTE | 2024-09-05 09:15 | P.PN ---
Subjective Progress Note Date: 09/04/24 68-year-old gentleman past medical history of cyclic vomiting syndrome presenting today for "dehydration". History is limited as patient and friend at bedside seem exasperated by having to provide further history. Patient has required multiple hospital admissions for similar symptoms. Today symptoms are similar to prior. He has no abdominal pain, shortness of breath or chest pain. No fevers or chills. No diarrhea, hematochezia. No black or bloody stools. Prior abdominal surgeries include prior cholecystectomy and prior feeding tube placement. Patient's friend states patient had a G-tube placed last summer and was ultimately removed in February when patient was able to gain weight. This was done by Dr. Pavon. Patient was discharged just discharged like [facility] on 08/23/2024 when admitted earlier for similar symptoms. Patient's friend at bedside, with whom he lives, states that he has been vomiting ever since discharge. He [place] taking Zofran, BuSpar, pantoprazole but is unable to keep any of his medications down. States patient was started on additional medications at time of discharge but however has not been able to keep any of them down due to nausea and vomiting. Emesis is nonbloody nonbilious. Of note patient has no history ACS, is a non-smoker, denies alcohol use. Infrequently uses marijuana, patient's friend at bedside states patient has not used marijuana recently. Blood work completed in ED reveals a WBC of 10.9, hemoglobin of 16.7 and p latelet count of 400, sodium 149, potassium 3.9, BUNs/creatinine of 26/0.95, magnesium elevated at 2.4, AST slightly elevated at 73, troponin elevated at 0.149 UA is unremarkable Urine drug screen is positive for marijuana 08/30/2024 Patient is seen and evaluated in room at bedside; continues to report nausea and vomiting with very poor oral intake; no further complaints of chest pain Vital signs reviewed and stable with temperature of 98, pulse 73, respiration 14 and blood pressure 113/67 Blood work reveals WBC 6.8, hemoglobin of 12.8 and platelet count of 181, sodium 142, potassium 2.7, BUNs/creatinine of 7/0.49 -Cardiology is following for elevated troponin and abnormal EKG; echocardiogram has been ordered; further recommendations after echocardiogram is completed and reported; patient remains on IV heparin General Surgery on board; small bowel follow-through is ordered; pending results, possible need for PEG tube placement 24-hour interval change 08/31/2024 Patient is seen resting in bed; continues to report emesis Vital signs are stable temperature 98.1, pulse 67, respiration 18 and blood pressure 110/63 Labs reveal WBC 8.7, hemoglobin of 14 and platelet count of 185; sodium 138, potassium 3.5, BUNs/creatinine of 8/0.50 and blood glucose 81 -General Surgery on board and tentatively planning for repeat EGD with possible PEG tube placement on Monday Cardiology following for elevated cardiac enzymes and abnormal EKG; echocar diogram reveals normal LV systolic function; cardiology recommending to discontinue heparin; no further workup recommended 09/01/2024 Patient seen and evaluated resting in bed; patient has a pillow over his head covering most of his face; reports he is feeling sleepy and wants to rest Vital signs are stable temperature of 97.4, pulse 95, respiration 12 and blood pressure 143/98 Labs revealed sodium 136, potassium 2.8 down from 3.5 yesterday, BUNs/creatinine remained stable at baseline --We will supplement potassium with 60 mEq IV x 1; will repeat potassium level later in the day and supplement as needed General Surgery on board; PEG tube placement has been discussed with patient for nutritional support and he is agreeable; patient tentatively scheduled for EGD and PEG tube placement tomorrow morning 09/02/2024 Patient is seen in follow-up today with cardiology and general surgery following. Patient is continued on telemetry monitoring with no plans of intervention per cardiology at this time. Patient is scheduled to undergo PEG tube placement with general surgery today and is currently NPO. Potassium mildly low and being replaced and will follow-up on repeat labs. Will consult case management as well as patient will need tube feedings and home care ar ranged in the outpatient setting. Patient is currently afebrile with no reports of chest pain or shortness of breath. Patient continues to have frothy sputum and dry heaves with some nausea. This has been chronic and ongoing for quite some time. 09/03/2024 Patient is seen in follow-up this morning and noted to have been vomiting bright red blood and is status post PEG tube placement. Hemoglobin did drop from 13.7- 12.8 and is noted to have dark blood in the PEG tube, mild coffee ground noted. Recommend H&H monitoring and transfuse if continuing to drop. Patient also with a low potassium of 2.8 and magnesium 1.6 being replaced per protocol will follow-up on repeat labs. Patient was scheduled to undergo swallow study with speech although unable to as patient was vomiting blood. Speech will reevaluate. General surgery is aware and following. Dietary consulted for PEG tube initiation. 09/04/2024 Patient is seen in follow-up this morning apparently no further episodes of bright red blood although continues to have secretions that he spits up frequently. Patient has received a PEG tube and is working on goal and tolerating tube feeds thus far. Recommend aspiration precautions and head of the bed elevated 30 to 45 degrees at all times. Patient has chronic nausea and vomiting with abdominal discomfort significant esophageal stricture and would benefit from PEG tube and tube feeds in the home. Hemoglobin is stable at 11 with no further bleeding noted and will continue to monitor closely. Pulmonary consulted with concerns of aspiration and pleural effusion on the right lung. Patient currently on room air and denies shortness of breath. On exam patient continues to have persistent hiccups and dry heaving multiple times. Patient would like to go home. Review of systems: Constitutional: reports of fatigue, no fever, or chills Cardiovascular: No reports of chest pain or palpitations Respiratory: No reports of shortness of breath or cough GI: reports of intermittent nausea with dry heaves, no further vomiting, or diarrhea : No reports of dysuria or retention Neurovascular: reports of generalized weakness All medications have been reviewed Physical exam: Gen: This is a 68-year-old male who is awake, alert and oriented x 3, thin built, appears older than stated age, cachectic with significant muscle wasting noted HEENT: Head is atraumatic, normocephalic. Pupils equal, round. Sclerae is anicteric. NECK: Supple. No JVD. No lymphadenopathy. No thyromegaly. LUNGS: Diminished breath sounds bilaterally otherwise clear to auscultation. No wheezes or rhonchi. No intercostal retractions. HEART: S1, S2 are muffled ABDOMEN: Soft. Thin. Bowel sounds are present. No masses. No tenderness. EXTREMITIES: No pedal edema. No calf tenderness. NEUROLOGICAL: Patient is awake, alert and oriented x3. Cranial nerves 2 through 12 are grossly intact. Assessment: -Elevated troponin, 1.15, no reports of chest pain -Intractable nausea and vomiting; likely cyclic vomiting syndrome, status post PEG tube placement -Hemoptysis, possible acute GI bleed, hematemesis and coffee-ground noted in the PEG tube, possibly secondary to history of varicose veins with paraesophageal hiatal hernia and extensive chronic esophageal stricture, improved and no further bleeding noted -Mild transaminitis; likely related to intractable vomiting -Hyperlipidemia -Electrolyte abnormalities including hypokalemia and hypomagnesemia, being replaced, improving -Hypertension; metoprolol 25 mg twice daily -Severe protein calorie malnutrition with a BMI of 22 -Anxiety/depression; BuSpar 7.5 mg twice daily; Zoloft 25 mg daily -Distal esophagitis and hiatal hernia noted on recent EGD -History of CVA/TIA -History of rheumatoid arthritis -GI prophylaxis -DVT prophylaxis; SCDs -full code Plan: Patient being followed by cardiology and general surgery and is status post PEG tube placement. No further bleeding noted from the PEG tube and patient has been started on tube feeds and tolerating thus far. T Hemoglobin remained stable at 11 today Patient scheduled to undergo speech therapy evaluation and swallow although refused this morning as he was feeling nauseated. Discussed with the patient about continuing with speech evaluation as insurance requires this for approval of tube feeds in the outpatient setting. Case management following making arrangements for discharge planning including supplies and continued tube feeds. Cardiology following and recommend to continue telemetry monitoring Repeat labs ordered for a.m. and will replace electrolytes per protocol. Potassium 2.8 and magnesium 1.6 being replaced and will follow-up on repeat labs. Consult case management to arrange for outpatient tube feeds and home care on discharge as patient plans on returning home Due to multiple complex medical issues, overall prognosis is guarde The impression and plan of care has been dictated by Yanira Linda, Nurse Practitioner as directed. Dr. Jamir MD I have performed a history and examination and MDM of this patient, discussed the same with the dictator, and agree with the dictator's assessment and plan as written ,documented as a scribe. Based on total visit time, I have performed more than 50% of the visit. Objective - Vital Signs Vital signs: Vital Signs Temp 98.2 F 09/04/24 07:00 Pulse 88 09/04/24 07:00 Resp 18 09/04/24 07:00 BP 121/76 09/04/24 07:00 Pulse Ox 95 09/04/24 07:00 FiO2 Intake & Output 09/03/24 09/04/24 09/04/24 18:59 06:59 18:59 Intake Total 10 40 Output Total 500 Balance -490 40 Weight 64 kg 65.5 kg Intake: Tube Feeding 10 40 Output: Urine 500 Other: Voiding Method Urinal Urinal - Labs CBC & Chem 7: 09/05/24 04:59 09/05/24 04:55 Labs: Abnormal Lab Results - Last 24 Hours (Table) 09/03/24 09/03/24 09/04/24 Range/Units 16:37 19:08 01:04 RBC (4.30-5.90) m/uL Hgb (13.0-17.5) gm/dL Hct (39.0-53.0) % RDW 17.6 H (11.5-15.5) % Neutrophils # 8.8 H (1.3-7.7) k/uL PT 20.6 H (10.0-12.5) sec INR 2.0 H (<1.2) Sodium (137-145) mmol/L Potassium 3.2 L (3.5-5.1) mmol/L BUN (9-20) mg/dL Creatinine (0.66-1.25) mg/dL Glucose (74-99) mg/dL Calcium (8.4-10.2) mg/dL 09/04/24 09/04/24 Range/Units 06:30 06:30 RBC 3.92 L (4.30-5.90) m/uL Hgb 11.8 L (13.0-17.5) gm/dL Hct 35.8 L (39.0-53.0) % RDW 17.8 H (11.5-15.5) % Neutrophils # (1.3-7.7) k/uL PT (10.0-12.5) sec INR (<1.2) Sodium 135 L (137-145) mmol/L Potassium 3.1 L (3.5-5.1) mmol/L BUN 3 L (9-20) mg/dL Creatinine 0.43 L (0.66-1.25) mg/dL Glucose 107 H (74-99) mg/dL Calcium 7.2 L (8.4-10.2) mg/dL
--- NOTE | 2024-09-05 10:47 | CDI ---
Date: 09/05/2024 From: Siomara Smith1 Email: [email or web address] Admit Date: 08/28/2024 Patient Name: Finn Alex Visit Number: [id number] Discharge Date: N/A ATTENTION: The Clinical Documentation Specialists (CDI) and [facility] Coding Staff appreciate your assistance in clarifying documentation. Please respond to the clarification below the line at the bottom and electronically sign. The CDI & [facility] Coding staff will review the response and follow-up if needed. Please note: Queries are made part of the Legal Health Record. If you have any questions, please contact the author of this message via ITS. Dr. Magda Bowie, Severe protein-calorie malnutrition is documented in your Progress Note on 09/03/2024 - which may lack sufficient clinical evidence/support in the medical record per ASPEN criteria guidelines (see reference below). Additional clarification/further specification is requested. History/Risk Factors: 68-year-old male presented to [facility] ED for evaluation due to intractable nausea and vomiting. PMH: Cyclic vomiting syndrome, esophageal strictures status-post dilation, former smoker, Clinical Indicators: v Documentation Location: Electronic Medical Record Current BMI: 21.3 Registered Dietitian Assessment (08/29/2024): o MST Score: 2 o Nutrition Intake: Poor o Underweight o Altered GI function Operative Report (09/02): Malnutrition, intractable vomiting Internal Medicine Progress Note (09/03/2024): o Thin builtcachectic with significant muscle wasting noted o Patient was discharged just discharged like [facility] on 08/23/2024 when admitted earlier for similar symptoms. Patient's friend at bedside, with whom he lives, states that he has been vomiting ever since dischargeStates patient was started on additional medications at time of discharge but however has not been able to keep any of them down due to nausea and vomiting Treatment: Registered Dietitian Consultation PEG Tube Placement on 09/02/2024 Enteral Tube Feeding (Jevity 1.5) Daily Weight Record Strict Intake and Output Record Other Treatments this Admission: Folic Acid 1mg Oral Daily Thiamine 100mg Oral Daily Protonix 40mg IVP BID Please clarify if severe protein-calorie malnutrition is a valid diagnosis? (If yes, please provide additional clinical support/further specification as indicated below). [ ] Yes. Severe protein-calorie malnutrition is present as evidenced by (additional clinical support/further specification): [ ] No, malnutrition is ruled out [ ] Other (please specify diagnosis) [ ] Unable to determine No, malnutrition is ruled out MTDD
[2024-09-05 11:33] LABS: Glucose,Whole Blood 128 mg/dL (70-110)
[2024-09-05] MEDS ORDERED: Potassium Replacement Protocol 1 EACH MISC MISCELLANE PRN (11:41)
[2024-09-05] MEDS ORDERED: Magnesium Replacement Protocol 1 EACH MISC MISCELLANE PRN (11:42)
[2024-09-05] MEDS: POTASSIUM CHLORIDE 10 MEQ in WATER FOR INJECTION 1 100ML.BAG IVPB SCH (13:37)
[2024-09-05] MEDS: MAGNESIUM SULFATE-D5W PMX 1 GM in DEXTROSE/WATER 1 100ML.BAG IVPB ONE (13:38)
--- NOTE | 2024-09-05 15:08 | P.PN ---
Subjective Progress Note Date: 09/05/24 SURGICAL PROGRESS NOTE CHIEF COMPLAINT: Vomiting HISTORY OF PRESENT ILLNESS: Patient postop day # 2 status post EGD with PEG tube placement. Patient is tolerating tube feeds. Denies any abdominal pain. Tube feeds are currently at 50 mL/h. He is having flatus. Potassium 3.2 magnesium 1.7 PHYSICAL EXAM: VITAL SIGNS: Reviewed. GENERAL: Well-developed in no acute distress. ABDOMEN: Soft. Nondistended. Nontender. PEG tube site clean dry and intact NEUROLOGIC: Alert and oriented. Cranial nerves II through XII grossly intact. ASSESSMENT: 1. Intractable vomiting 2. Severe protein calorie malnutrition 3. Distal esophagitis and a hiatal hernia 4. Hypomagnesemia and hypokalemia PLAN: -Patient can be discharged from surgical standpoint -Continue tube feeds -Electrolytes being corrected per medicine service Physician Ophthalmic Pathologist note has been reviewed by physician. Signing provider agrees with the documented findings, assessment, and plan of care. Objective - Vital Signs Vital signs: Vital Signs Temp 97.7 F 09/05/24 13:12 Pulse 71 09/05/24 13:12 Resp 18 09/05/24 13:12 BP 115/77 09/05/24 13:12 Pulse Ox 98 09/05/24 13:12 FiO2 Intake & Output 09/04/24 09/05/24 09/05/24 18:59 06:59 18:59 Intake Total 140 130 Output Total 300 Balance -300 140 130 Weight 63.5 kg Intake: IV 30 Invasive Line 4 20 Invasive Line 5 10 Tube Feeding 140 100 Output: Urine 300 Other: Voiding Method Urinal Urinal Toilet Urinal - Labs CBC & Chem 7: 09/05/24 04:59 09/05/24 04:55 Labs: Abnormal Lab Results - Last 24 Hours (Table) 09/04/24 09/05/24 09/05/24 Range/Units 16:38 00:03 04:55 RBC (4.40-5.60) X 10*6/uL Hgb (13.0-17.0) g/dL Hct (39.6-50.0) % RDW (11.5-14.5) % MPV (9.5-12.2) FL Immature Gran # (0.00-0.04) X 10*3/uL Potassium 3.2 L (3.5-5.5) mmol/L BUN 5.9 L (9.0-27.0) mg/dL Creatinine 0.5 L (0.6-1.5) mg/dL BUN/Creatinine Ratio 11.80 L (12.00-20.00) Ratio Glucose 161 H (70-110) mg/dL POC Glucose (mg/dL) 179 H 145 H (70-110) mg/dL Calcium 7.5 L (8.7-10.3) mg/dL 09/05/24 09/05/24 09/05/24 Range/Units 04:59 06:33 11:31 RBC 3.70 L (4.40-5.60) X 10*6/uL Hgb 11.3 L (13.0-17.0) g/dL Hct 33.5 L (39.6-50.0) % RDW 19.3 H (11.5-14.5) % MPV 13.0 H (9.5-12.2) FL Immature Gran # 0.08 H (0.00-0.04) X 10*3/uL Potassium (3.5-5.5) mmol/L BUN (9.0-27.0) mg/dL Creatinine (0.6-1.5) mg/dL BUN/Creatinine Ratio (12.00-20.00) Ratio Glucose (70-110) mg/dL POC Glucose (mg/dL) 169 H 128 H (70-110) mg/dL Calcium (8.7-10.3) mg/dL
[2024-09-05 16:37] LABS: Glucose,Whole Blood 209 mg/dL (70-110)
--- NOTE | 2024-09-05 23:12 | P.PN ---
Subjective Progress Note Date: 09/05/24 68-year-old male patient is being seen in consultation suspecting an aspiration /aspiration pneumonia. The patient has chronic difficulties with esophageal stricture and the patient has undergone multiple dilatation in the past and the patient suffers from chronic nausea and emesis. The patient also has history of hypertension hyperlipidemia in addition. He was admitted to the hospital because of nausea and emesis associated with some mild abdominal discomfort. No chest pain. No significant shortness of breath time of the admission to the hospital. The patient has had previous cardiac catheterization back in 2019 with normal coronaries. He has a preserved LV function. GI services were involved in his case and the patient was given a PEG tube for enteral feeding and nutritional support. The patient is currently on Jevity and is tolerating the enteral feeding for nutritional support. Meanwhile, he has developed some new infiltration based on the chest x-ray that was done on 09/04/2024. Reviewed the chest x-ray and the patient has a new small right-sided pleural effusion and a patchy atelectasis/infiltrates in the right lung. Nevertheless, he is afebrile. He is hemodynamically stable. His pulse ox is 98% on room air oxygen. No significant sputum production. No pleurisy or hemoptysis. The white cell count of 8.4, hemoglobin 11.8 and a platelet count of 189. Sodium is at 135, potassium level is at 3.1, BUN 3 with a creatinine of 0.43. The patient is on Ventolin 4 times daily, and as needed. No antibiotics for now. He is on normal saline at rate of 50 cc an hour. Rest of the medications are essentially unchanged. 09/05/2024, the patient is being seen for a follow-up. Remains on room air oxygen. No significant cough sputum production chest tightness or wheezing. He is on enteral feeding for nutritional support with Jevity. No nausea. No emesis/abdominal pain. The white cell count is at 6.9 with a hemoglobin of 11.3 and a platelet count of 179. Electrolytes are stable. No other significant events overnight. The patient is currently not receiving any antibiotic coverage. Suspected to have a chemical pneumonitis involving the right lower lobe and the patient will have a follow-up chest x-ray. Objective - Vital Signs Vital signs: Vital Signs Temp 97.4 F L 09/05/24 07:00 Pulse 74 09/05/24 07:00 Resp 17 09/05/24 07:00 BP 100/72 09/05/24 07:00 Pulse Ox 97 09/05/24 07:00 FiO2 Intake & Output 09/04/24 09/05/24 09/05/24 18:59 06:59 18:59 Intake Total 140 20 Output Total 300 Balance -300 140 20 Weight 63.5 kg Intake: IV 20 Invasive Line 4 20 Tube Feeding 140 Output: Urine 300 Other: Voiding Method Urinal Urinal Toilet Urinal - Exam The patient appeared well nourished and normally developed. Vital signs as documented. Head exam is unremarkable. No scleral icterus or corneal arcus noted. Neck is without jugular venous distension, thyromegaly, or carotid bruits. Carotid upstrokes are brisk bilaterally. Lungs are clear to auscultation and percussion. Cardiac exam reveals the PMI to be normally sized and situated. Rhythm is regular. First and second heart sounds normal. No murmurs, rubs or gallops. Abdominal exam reveals normal bowel sounds, no masses, no organomegaly and no aortic enlargement. The patient has a PEG tube in place for enteral feeding in situ support currently on [facility]. Extremities are nonedematous and both femoral and pedal pulses are normal. Examination of the skin revealed no evidence of significant rashes, suspicious appearing nevi or other concerning lesions. Neurologically, the patient is awake and alert and the patient does not have any focal neurological deficit. Cranial nerves are essentially intact. - Labs CBC & Chem 7: 09/05/24 04:59 09/05/24 04:55 Labs: Abnormal Lab Results - Last 24 Hours (Table) 09/04/24 09/04/24 09/05/24 Range/Units 12:00 16:38 00:03 RBC (4.40-5.60) X 10*6/uL Hgb (13.0-17.0) g/dL Hct (39.6-50.0) % RDW (11.5-14.5) % MPV (9.5-12.2) FL Immature Gran # (0.00-0.04) X 10*3/uL Potassium (3.5-5.5) mmol/L BUN (9.0-27.0) mg/dL Creatinine (0.6-1.5) mg/dL BUN/Creatinine Ratio (12.00-20.00) Ratio Glucose (70-110) mg/dL POC Glucose (mg/dL) 136 H 179 H 145 H (70-110) mg/dL Calcium (8.7-10.3) mg/dL 09/05/24 09/05/24 09/05/24 Range/Units 04:55 04:59 06:33 RBC 3.70 L (4.40-5.60) X 10*6/uL Hgb 11.3 L (13.0-17.0) g/dL Hct 33.5 L (39.6-50.0) % RDW 19.3 H (11.5-14.5) % MPV 13.0 H (9.5-12.2) FL Immature Gran # 0.08 H (0.00-0.04) X 10*3/uL Potassium 3.2 L (3.5-5.5) mmol/L BUN 5.9 L (9.0-27.0) mg/dL Creatinine 0.5 L (0.6-1.5) mg/dL BUN/Creatinine Ratio 11.80 L (12.00-20.00) Ratio Glucose 161 H (70-110) mg/dL POC Glucose (mg/dL) 169 H (70-110) mg/dL Calcium 7.5 L (8.7-10.3) mg/dL 09/05/24 Range/Units 11:31 RBC (4.40-5.60) X 10*6/uL Hgb (13.0-17.0) g/dL Hct (39.6-50.0) % RDW (11.5-14.5) % MPV (9.5-12.2) FL Immature Gran # (0.00-0.04) X 10*3/uL Potassium (3.5-5.5) mmol/L BUN (9.0-27.0) mg/dL Creatinine (0.6-1.5) mg/dL BUN/Creatinine Ratio (12.00-20.00) Ratio Glucose (70-110) mg/dL POC Glucose (mg/dL) 128 H (70-110) mg/dL Calcium (8.7-10.3) mg/dL Assessment and Plan Plan: Aspiration, likely chemical pneumonitis. Small right-sided pleural effusion and limited patchy infiltration of the right lung base. No leukocytosis. No fever. Bacterial pneumonia is felt to be less likely. Will monitor. The patient is oxygenation is stable and the patient is currently on room air oxygen. Post PEG tube insertion for chronic esophageal stricture and persistent nausea and emesis and abdominal discomfort. The patient was started on enteral feeding for nutritional support and the patient is currently on Jevity. Hypertension Hyperlipidemia Rheumatoid arthritis History of varicose veins History of incarcerated paraesophageal hiatal hernia supposed robotic assisted paraesophageal hernia repair and Frederick fundoplication that was performed on 04/12/2022. History of CVA/TIA Chronic anxiety/depression History of smoking History of marijuana use Plan Monitor oxygenation, oxygenation remained stable and the patient remains on room air oxygen Monitor white count, shows no development of any leukocytosis Repeat chest x-ray will neck 24 hours, repeat chest x-ray was ordered for tomorrow Continue enteral feeding for nutritional support Aspiration precautions Hold off antibiotic treatment unless his condition changes GI services and general surgery are both on the case Will continue to follow.
[2024-09-06 00:10] LABS: Glucose,Whole Blood 117 mg/dL (70-110)
[2024-09-06 06:12] LABS: Glucose,Whole Blood 135 mg/dL (70-110)
--- NOTE | 2024-09-06 06:14 | P.PN ---
Subjective Progress Note Date: 09/05/24 68-year-old gentleman past medical history of cyclic vomiting syndrome presenting today for "dehydration". History is limited as patient and friend at bedside seem exasperated by having to provide further history. Patient has required multiple hospital admissions for similar symptoms. Today symptoms are similar to prior. He has no abdominal pain, shortness of breath or chest pain. No fevers or chills. No diarrhea, hematochezia. No black or bloody stools. Prior abdominal surgeries include prior cholecystectomy and prior feeding tube placement. Patient's friend states patient had a G-tube placed last summer and was ultimately removed in February when patient was able to gain weight. This was done by Dr. Pavon. Patient was discharged just discharged like [facility] on 08/23/2024 when admitted earlier for similar symptoms. Patient's friend at bedside, with whom he lives, states that he has been vomiting ever since discharge. He [place] taking Zofran, BuSpar, pantoprazole but is unable to keep any of his medications down. States patient was started on additional medications at time of discharge but however has not been able to keep any of them down due to nausea and vomiting. Emesis is nonbloody nonbilious. Of note patient has no history ACS, is a non-smoker, denies alcohol use. Infrequently uses marijuana, patient's friend at bedside states patient has not used marijuana recently. Blood work completed in ED reveals a WBC of 10.9, hemoglobin of 16.7 and p latelet count of 400, sodium 149, potassium 3.9, BUNs/creatinine of 26/0.95, magnesium elevated at 2.4, AST slightly elevated at 73, troponin elevated at 0.149 UA is unremarkable Urine drug screen is positive for marijuana 08/30/2024 Patient is seen and evaluated in room at bedside; continues to report nausea and vomiting with very poor oral intake; no further complaints of chest pain Vital signs reviewed and stable with temperature of 98, pulse 73, respiration 14 and blood pressure 113/67 Blood work reveals WBC 6.8, hemoglobin of 12.8 and platelet count of 181, sodium 142, potassium 2.7, BUNs/creatinine of 7/0.49 -Cardiology is following for elevated troponin and abnormal EKG; echocardiogram has been ordered; further recommendations after echocardiogram is completed and reported; patient remains on IV heparin General Surgery on board; small bowel follow-through is ordered; pending results, possible need for PEG tube placement 24-hour interval change 08/31/2024 Patient is seen resting in bed; continues to report emesis Vital signs are stable temperature 98.1, pulse 67, respiration 18 and blood pressure 110/63 Labs reveal WBC 8.7, hemoglobin of 14 and platelet count of 185; sodium 138, potassium 3.5, BUNs/creatinine of 8/0.50 and blood glucose 81 -General Surgery on board and tentatively planning for repeat EGD with possible PEG tube placement on Monday Cardiology following for elevated cardiac enzymes and abnormal EKG; echocar diogram reveals normal LV systolic function; cardiology recommending to discontinue heparin; no further workup recommended 09/01/2024 Patient seen and evaluated resting in bed; patient has a pillow over his head covering most of his face; reports he is feeling sleepy and wants to rest Vital signs are stable temperature of 97.4, pulse 95, respiration 12 and blood pressure 143/98 Labs revealed sodium 136, potassium 2.8 down from 3.5 yesterday, BUNs/creatinine remained stable at baseline --We will supplement potassium with 60 mEq IV x 1; will repeat potassium level later in the day and supplement as needed General Surgery on board; PEG tube placement has been discussed with patient for nutritional support and he is agreeable; patient tentatively scheduled for EGD and PEG tube placement tomorrow morning 09/02/2024 Patient is seen in follow-up today with cardiology and general surgery following. Patient is continued on telemetry monitoring with no plans of intervention per cardiology at this time. Patient is scheduled to undergo PEG tube placement with general surgery today and is currently NPO. Potassium mildly low and being replaced and will follow-up on repeat labs. Will consult case management as well as patient will need tube feedings and home care ar ranged in the outpatient setting. Patient is currently afebrile with no reports of chest pain or shortness of breath. Patient continues to have frothy sputum and dry heaves with some nausea. This has been chronic and ongoing for quite some time. 09/03/2024 Patient is seen in follow-up this morning and noted to have been vomiting bright red blood and is status post PEG tube placement. Hemoglobin did drop from 13.7- 12.8 and is noted to have dark blood in the PEG tube, mild coffee ground noted. Recommend H&H monitoring and transfuse if continuing to drop. Patient also with a low potassium of 2.8 and magnesium 1.6 being replaced per protocol will follow-up on repeat labs. Patient was scheduled to undergo swallow study with speech although unable to as patient was vomiting blood. Speech will reevaluate. General surgery is aware and following. Dietary consulted for PEG tube initiation. 09/04/2024 Patient is seen in follow-up this morning apparently no further episodes of bright red blood although continues to have secretions that he spits up frequently. Patient has received a PEG tube and is working on goal and tolerating tube feeds thus far. Recommend aspiration precautions and head of the bed elevated 30 to 45 degrees at all times. Patient has chronic nausea and vomiting with abdominal discomfort significant esophageal stricture and would benefit from PEG tube and tube feeds in the home. Hemoglobin is stable at 11 with no further bleeding noted and will continue to monitor closely. Pulmonary consulted with concerns of aspiration and pleural effusion on the right lung. Patient currently on room air and denies shortness of breath. On exam patient continues to have persistent hiccups and dry heaving multiple times. Patient would like to go home. 09/05/2024 Patient is seen in follow-up with multiple consultation with the following. Patient awaiting to be reevaluated by speech as case management needs swallow evaluation in order to arrange the need for tube feeds in the outpatient setting. Unsure if insurance covers this although patient has had multiple h ospitalizations for this continued ongoing nausea and vomiting with inability to tolerate oral intake, significant weight loss, and severe protein calorie malnutrition. Patient is afebrile with no reported chest pain or shortness of breath. Recommend aspiration precautions with head of the bed elevated 35 to 45 degrees at all times and discussed this with patient as well as he tends to lay flat very frequently. Replace electrolytes per protocol as potassium is mildly low today. Arrange for daily supplementation. Review of systems: Constitutional: reports of fatigue, no fever, or chills Cardiovascular: No reports of chest pain or palpitations Respiratory: No reports of shortness of breath or cough GI: reports of intermittent nausea with dry heaves, no further vomiting, or diarrhea : No reports of dysuria or retention Neurovascular: reports of generalized weakness All medications have been reviewed Physical exam: Gen: This is a 68-year-old male who is awake, alert and oriented x 3, thin built, appears older than stated age, cachectic with significant muscle wasting noted HEENT: Head is atraumatic, normocephalic. Pupils equal, round. Sclerae is anicteric. NECK: Supple. No JVD. No lymphadenopathy. No thyromegaly. LUNGS: Diminished breath sounds bilaterally otherwise clear to auscultation. No wheezes or rhonchi. No intercostal retractions. HEART: S1, S2 are muffled ABDOMEN: Soft. Thin. Bowel sounds are present. No masses. No tenderness. EXTREMITIES: No pedal edema. No calf tenderness. NEUROLOGICAL: Patient is awake, alert and oriented x3. Cranial nerves 2 through 12 are grossly intact. Assessment: -Elevated troponin, 1.15, no reports of chest pain -Intractable nausea and vomiting; likely cyclic vomiting syndrome, status post PEG tube placement -Hemoptysis, possible acute GI bleed, hematemesis and coffee-ground noted in the PEG tube, possibly secondary to history of varicose veins with paraesophageal hiatal hernia and extensive chronic esophageal stricture, improved and no further bleeding noted -Mild transaminitis; likely related to intractable vomiting -Hyperlipidemia -Electrolyte abnormalities including hypokalemia and hypomagnesemia, being replaced, improving -Hypertension; metoprolol 25 mg twice daily -Severe protein calorie malnutrition with a BMI of 22 -Anxiety/depression; BuSpar 7.5 mg twice daily; Zoloft 25 mg daily -Distal esophagitis and hiatal hernia noted on recent EGD -History of CVA/TIA -History of rheumatoid arthritis -GI prophylaxis -DVT prophylaxis; SCDs -full code Plan: Patient being followed by cardiology and general surgery and is status post PEG tube placement. No further bleeding noted from the PEG tube and patient has been started on tube feeds and tolerating thus far. Awaiting speech evaluation for swallow study as insurance requires this to assess for tube feed in the outpatient setting Hemoglobin remained stable above 10 with no active bleeding Case management following making arrangements for discharge planning including supplies and continued tube feeds and awaiting speech notes regarding swallow evaluation. Cardiology following and recommend to continue telemetry monitoring Repeat labs ordered for a.m. and will replace electrolytes per protocol. Potassium 3.0 and will replace Possible discharge planning in 24 hours Due to multiple complex medical issues, overall prognosis is guarde The impression and plan of care has been dictated by Yanira Linda, Nurse Practitioner as directed. Dr. Jamir MD I have performed a history and examination and MDM of this patient, discussed the same with the dictator, and agree with the dictator's assessment and plan as written ,documented as a scribe. Based on total visit time, I have performed more than 50% of the visit. Objective - Vital Signs Vital signs: Vital Signs Temp 98.5 F 09/06/24 00:10 Pulse 80 09/06/24 00:10 Resp 18 09/06/24 00:10 BP 114/76 09/06/24 00:10 Pulse Ox 96 09/06/24 00:10 FiO2 Intake & Output 09/05/24 09/05/24 09/06/24 06:59 18:59 06:59 Intake Total 140 130 55 Balance 140 130 55 Weight 63.5 kg 66 kg Intake: IV 30 Invasive Line 4 20 Invasive Line 5 10 Tube Feeding 140 100 55 Other: Voiding Method Urinal Toilet Toilet Urinal Urinal - Labs CBC & Chem 7: 09/05/24 04:59 09/06/24 04:25 Labs: Abnormal Lab Results - Last 24 Hours (Table) 09/05/24 09/05/24 09/05/24 Range/Units 04:55 04:59 06:33 RBC 3.70 L (4.40-5.60) X 10*6/uL Hgb 11.3 L (13.0-17.0) g/dL Hct 33.5 L (39.6-50.0) % RDW 19.3 H (11.5-14.5) % MPV 13.0 H (9.5-12.2) FL Immature Gran # 0.08 H (0.00-0.04) X 10*3/uL Potassium 3.2 L (3.5-5.5) mmol/L BUN 5.9 L (9.0-27.0) mg/dL Creatinine 0.5 L (0.6-1.5) mg/dL BUN/Creatinine Ratio 11.80 L (12.00-20.00) Ratio Glucose 161 H (70-110) mg/dL POC Glucose (mg/dL) 169 H (70-110) mg/dL Calcium 7.5 L (8.7-10.3) mg/dL 09/05/24 09/05/24 09/06/24 Range/Units 11:31 16:36 00:09 RBC (4.40-5.60) X 10*6/uL Hgb (13.0-17.0) g/dL Hct (39.6-50.0) % RDW (11.5-14.5) % MPV (9.5-12.2) FL Immature Gran # (0.00-0.04) X 10*3/uL Potassium (3.5-5.5) mmol/L BUN (9.0-27.0) mg/dL Creatinine (0.6-1.5) mg/dL BUN/Creatinine Ratio (12.00-20.00) Ratio Glucose (70-110) mg/dL POC Glucose (mg/dL) 128 H 209 H 117 H (70-110) mg/dL Calcium (8.7-10.3) mg/dL
--- NOTE | 2024-09-06 07:27 | XR ---
EXAMINATION TYPE: XR chest 1V portable DATE OF EXAM: 09/06/2024 6:52 AM COMPARISON: 09/04/2024 CLINICAL INDICATION: Male, 68 years old with history of shortness of breath, , FINDINGS: Heart normal size. Mild hyperinflation. Ongoing small right pleural effusion with patchy opacity at t he right base. Suspect prominent skinfolds projecting at the right apex and periphery of the right ba se. IMPRESSION: Ongoing small right pleural effusion with adjacent atelectasis and/or consolidation. Edges projecting at the right apex and periphery of the right base suspected to represent prominent skin folds rather than pneumothorax. Attention on follow-up. [facility], , 09/06/2024 7:24 AM
[2024-09-06 08:29] LABS: BUN/Creat Ratio 27.33 Ratio (12.00-20.00); Blood Urea Nitrogen 8.2 mg/dL (9.0-27.0); Calcium 7.3 mg/dL (8.7-10.3); Carbon Dioxide 29.1 mmol/L (21.6-31.8); Chloride 106 mmol/L (96-109); Glucose 130 mg/dL (70-110); Magnesium 1.8 mg/dL (1.5-2.4); Potassium 4.1 mmol/L (3.5-5.5); Sodium 141 mmol/L (135-145)
[2024-09-06 11:59] LABS: Glucose,Whole Blood 117 mg/dL (70-110)
--- NOTE | 2024-09-06 12:27 | P.PN ---
Subjective Progress Note Date: 09/06/24 SURGICAL PROGRESS NOTE CHIEF COMPLAINT: Vomiting HISTORY OF PRESENT ILLNESS: Patient postop day #3 status post EGD with PEG tube placement. Patient is tolerating tube feeds. Tube Feeds at 55 mL/h. He denies any abdominal pain. Apparently the tube feeds are not covered per pillowcase folder. And in helping using boost down the PEG tube to meet nutrition needs. Afebrile. Potassium 4.0 and magnesium 1.8 PHYSICAL EXAM: VITAL SIGNS: Reviewed. GENERAL: Well-developed in no acute distress. ABDOMEN: Soft. Nondistended. Nontender. PEG tube site clean dry and intact NEUROLOGIC: Alert and oriented. Cranial nerves II through XII grossly intact. ASSESSMENT: 1. Intractable vomiting 2. Severe protein calorie malnutrition 3. Distal esophagitis and a hiatal hernia 4. Hypomagnesemia and hypokalemia improved PLAN: -Patient can be discharged from surgical standpoint -Continue tube feeds Physician Client Services Director note has been reviewed by physician. Signing provider agrees with the documented findings, assessment, and plan of care. Objective - Vital Signs Vital signs: Vital Signs Temp 98.5 F 09/06/24 00:10 Pulse 84 09/06/24 08:49 Resp 18 09/06/24 00:10 BP 127/88 09/06/24 08:49 Pulse Ox 97 09/06/24 08:49 FiO2 Intake & Output 09/05/24 09/06/24 09/06/24 18:59 06:59 18:59 Intake Total 130 55 55 Balance 130 55 55 Weight 66 kg Intake: IV 30 Invasive Line 4 20 Invasive Line 5 10 Tube Feeding 100 55 55 Other: Voiding Method Toilet Toilet Urinal Urinal - Labs CBC & Chem 7: 09/05/24 04:59 09/06/24 04:25 Labs: Abnormal Lab Results - Last 24 Hours (Table) 09/05/24 09/06/24 09/06/24 Range/Units 16:36 00:09 : BUN 8.2 L (9.0-27.0) mg/dL Creatinine 0.3 L (0.6-1.5) mg/dL BUN/Creatinine Ratio 27.33 H (12.00-20.00) Ratio Glucose 130 H (70-110) mg/dL POC Glucose (mg/dL) 209 H 117 H (70-110) mg/dL Calcium 7.3 L (8.7-10.3) mg/dL 09/06/24 09/06/24 Range/Units 06:11 11:58 BUN (9.0-27.0) mg/dL Creatinine (0.6-1.5) mg/dL BUN/Creatinine Ratio (12.00-20.00) Ratio Glucose (70-110) mg/dL POC Glucose (mg/dL) 135 H 117 H (70-110) mg/dL Calcium (8.7-10.3) mg/dL
[2024-09-06 14:05] VITALS: BP 120/82; PULSE 88; RESP 17; TEMP 98.9
--- NOTE | 2024-09-06 17:51 | P.PN ---
Subjective Progress Note Date: 09/06/24 68-year-old male patient is being seen in consultation suspecting an aspiration /aspiration pneumonia. The patient has chronic difficulties with esophageal stricture and the patient has undergone multiple dilatation in the past and the patient suffers from chronic nausea and emesis. The patient also has history of hypertension hyperlipidemia in addition. He was admitted to the hospital because of nausea and emesis associated with some mild abdominal discomfort. No chest pain. No significant shortness of breath time of the admission to the hospital. The patient has had previous cardiac catheterization back in 2019 with normal coronaries. He has a preserved LV function. GI services were involved in his case and the patient was given a PEG tube for enteral feeding and nutritional support. The patient is currently on Jevity and is tolerating the enteral feeding for nutritional support. Meanwhile, he has developed some new infiltration based on the chest x-ray that was done on 09/04/2024. Reviewed the chest x-ray and the patient has a new small right-sided pleural effusion and a patchy atelectasis/infiltrates in the right lung. Nevertheless, he is afebrile. He is hemodynamically stable. His pulse ox is 98% on room air oxygen. No significant sputum production. No pleurisy or hemoptysis. The white cell count of 8.4, hemoglobin 11.8 and a platelet count of 189. Sodium is at 135, potassium level is at 3.1, BUN 3 with a creatinine of 0.43. The patient is on Ventolin 4 times daily, and as needed. No antibiotics for now. He is on normal saline at rate of 50 cc an hour. Rest of the medications are essentially unchanged. 09/05/2024, the patient is being seen for a follow-up. Remains on room air oxygen. No significant cough sputum production chest tightness or wheezing. He is on enteral feeding for nutritional support with Jevity. No nausea. No emesis/abdominal pain. The white cell count is at 6.9 with a hemoglobin of 11.3 and a platelet count of 179. Electrolytes are stable. No other significant events overnight. The patient is currently not receiving any antibiotic coverage. Suspected to have a chemical pneumonitis involving the right lower lobe and the patient will have a follow-up chest x-ray. 09/06/2024, the patient is being seen for a follow-up.. No new complaints. On today's evaluation, the patient is coughing up some limited sputum. However, he denies having any significant shortness of breath. No fever. No chills. No leukocytosis as mentioned the patient continues to receive enteral feeding for nutritional support. Electrolytes are all within normal limits. BUN is at 8 with a creatinine of 0.3. Follow-up chest x-ray shows some small right-sided pleural effusion. No airspace disease. No other significant abnormalities noted. He remains on room air oxygen. No other complaints otherwise for now. Objective - Vital Signs Vital signs: Vital Signs Temp 98.9 F 09/06/24 13:50 Pulse 88 09/06/24 13:50 Resp 17 09/06/24 13:50 BP 120/82 09/06/24 13:50 Pulse Ox 95 09/06/24 13:50 FiO2 Intake & Output 09/05/24 09/06/24 09/06/24 18:59 06:59 18:59 Intake Total 130 55 420 Output Total 400 Balance 130 55 20 Weight 66 kg Intake: IV 30 10 Invasive Line 4 20 Invasive Line 5 10 Invasive Line 6 10 Intake, IV Titration 300 Amount Sodium Chloride 0.9% 1, 300 000 ml @ 50 mls/hr IV . Q20H [facility] Rx#:[id number] Tube Feeding 100 55 110 Output: Urine 400 Other: Voiding Method Toilet Toilet Urinal Urinal Urinal - Exam The patient appeared well nourished and normally developed. Vital signs as documented. Head exam is unremarkable. No scleral icterus or corneal arcus noted. Neck is without jugular venous distension, thyromegaly, or carotid bruits. Carotid upstrokes are brisk bilaterally. Lungs are clear to auscultation and percussion. Cardiac exam reveals the PMI to be normally sized and situated. Rhythm is regular. First and second heart sounds normal. No murmurs, rubs or gallops. Abdominal exam reveals normal bowel sounds, no masses, no organomegaly and no aortic enlargement. The patient has a PEG tube in place for enteral feeding in situ support currently on [facility]. Extremities are nonedematous and both femoral and pedal pulses are normal. Examination of the skin revealed no evidence of significant rashes, suspicious appearing nevi or other concerning lesions. Neurologically, the patient is awake and alert and the patient does not have any focal neurological deficit. Cranial nerves are essentially intact. - Labs CBC & Chem 7: 09/05/24 04:59 09/06/24 04:25 Labs: Abnormal Lab Results - Last 24 Hours (Table) 09/06/24 09/06/24 09/06/24 Range/Units 00:09 04:25 06:11 BUN 8.2 L (9.0-27.0) mg/dL Creatinine 0.3 L (0.6-1.5) mg/dL BUN/Creatinine Ratio 27.33 H (12.00-20.00) Ratio Glucose 130 H (70-110) mg/dL POC Glucose (mg/dL) 117 H 135 H (70-110) mg/dL Calcium 7.3 L (8.7-10.3) mg/dL 09/06/24 Range/Units 11:58 BUN (9.0-27.0) mg/dL Creatinine (0.6-1.5) mg/dL BUN/Creatinine Ratio (12.00-20.00) Ratio Glucose (70-110) mg/dL POC Glucose (mg/dL) 117 H (70-110) mg/dL Calcium (8.7-10.3) mg/dL Assessment and Plan Plan: Aspiration, likely chemical pneumonitis. Small right-sided pleural effusion and limited patchy infiltration of the right lung base. No leukocytosis. No fever. Bacterial pneumonia is felt to be less likely. Will monitor. The patient is oxygenation is stable and the patient is currently on room air oxygen. Post PEG tube insertion for chronic esophageal stricture and persistent nausea and emesis and abdominal discomfort. The patient was started on enteral feeding for nutritional support and the patient is currently on Jevity. Hypertension Hyperlipidemia Rheumatoid arthritis History of varicose veins History of incarcerated paraesophageal hiatal hernia supposed robotic assisted paraesophageal hernia repair and Frederick fundoplication that was performed on 04/12/2022. History of CVA/TIA Chronic anxiety/depression History of smoking History of marijuana use Plan Follow-up chest x-ray from today was reviewed, no concern for pneumonia Monitor oxygenation, oxygenation remained stable and the patient remains on room air oxygen Monitor white count, shows no development of any leukocytosis Continue enteral feeding for nutritional support, PEG tube site is clean and the tube is functional Aspiration precautions Hold off antibiotic treatment unless his condition changes GI services and general surgery are both on the case Patient would like to be discharged home today.
--- NOTE | 2024-09-08 13:03 | P.DS ---
Providers Date of admission: 08/28/24 17:58 Expected date of discharge: 09/06/24 Attending physician: Juan Phillips MD Consults: 08/28/24 17:58 Consult Physician Routine Consulting Provider: Rickie Pavon Consult Reason/Comments: Prior G tube, intractable N/V Do you want consulting provider notified?: Yes, Notify in am 08/29/24 11:24 Consult Physician Routine Consulting Provider: Antwon Mckeon Consult Reason/Comments: Elevated Trop Do you want consulting provider notified?: Yes 09/03/24 12:23 Consult Physician Routine Consulting Provider: Fran Pryor Consult Reason/Comments: asthma/GI bleed Do you want consulting provider notified?: Yes Primary care physician: Misael Hopkins Hospital Course: Final diagnosis -Elevated troponin, 1.15, no reports of chest pain, ACS ruled out per cardiology -Intractable nausea and vomiting; likely cyclic vomiting syndrome, status post PEG tube placement -Hemoptysis, possible acute GI bleed, hematemesis and coffee-ground noted in the PEG tube, possibly secondary to history of varicose veins with paraesophageal hiatal hernia and extensive chronic esophageal stricture, improved and no further bleeding noted -Mild transaminitis; likely related to intractable vomiting -Hyperlipidemia -Electrolyte abnormalities including hypokalemia and hypomagnesemia, being replaced, improving -Hypertension; metoprolol 25 mg twice daily -Severe protein calorie malnutrition with a BMI of 22 -Anxiety/depression; BuSpar 7.5 mg twice daily; Zoloft 25 mg daily -Distal esophagitis and hiatal hernia noted on recent EGD -History of CVA/TIA -History of rheumatoid arthritis -GI prophylaxis -DVT prophylaxis; SCDs -full code Discharge disposition Patient is being discharged in a stable condition with guarded prognosis to home with home care. Patient will follow-up with Dr. Hopkins in the outpatient setting upon discharge. Patient is to continue with close outpatient follow-up with general surgery as scheduled. Total time taken is greater than 35 minutes. Hospital course This is a 68-year-old male who was recently admitted with intractable nausea and vomiting being closely monitored with multiple consultations following. Patient evaluated by general surgery and underwent PEG tube placement. Patient tolerating tube feeds was evaluated by speech and passed swallow eval to make him not qualify for tube feeds and would have to pay [id number]. Dietary consult to discuss diet on discharge. Recommend outpatient follow-up with general surgery. Patient reports to feeling improved and anxious to go home. Please refer to other consultation notes for further HPI. Currently no reports of chest pain, shortness of breath, or palpitations. Patient is afebrile. No reports of nausea or vomiting and patient is tolerating diet. Patient will be discharged home today. High risk for readmissions given patient's continued ongoing symptoms. Patient has had multiple hospitalizations regarding this and continues to clinically decline. Physical exam: Gen: This is a 68-year-old male who is awake, alert and oriented x 3, thin built, appears older than stated age, ill-appearing HEENT: Head is atraumatic, normocephalic. Pupils equal, round. Sclerae is anicteric. NECK: Supple. No JVD. No lymphadenopathy. No thyromegaly. LUNGS: Diminished breath sounds bilaterally otherwise clear to auscultation. No wheezes or rhonchi. No intercostal retractions. HEART: Regular rate and rhythm. No murmur. ABDOMEN: Soft. Thin, PEG tube noted bowel sounds are present. No masses. No tenderness. EXTREMITIES: No pedal edema. No calf tenderness. NEUROLOGICAL: Patient is awake, alert and oriented x3. Cranial nerves 2 through 12 are grossly intact. Please refer to medication reconciliation sheet for a list of medications. The impression and plan of care has been dictated by Yanira Linda, Nurse Practitioner as directed. Dr. Jamir MD I have performed a history and examination and MDM of this patient, discussed the same with the dictator, and agree with the dictator's assessment and plan as written ,documented as a scribe. Based on total visit time, I have performed more than 50% of the visit. Patient Condition at Discharge: Stable Plan - Discharge Summary Discharge Rx Participant: Yes New Discharge Prescriptions: New Calcium Carbonate [Tums] 1,000 mg PO Q4HR PRN tab PRN Reason: Dyspepsia Continue Pantoprazole [Protonix] 40 mg PO DAILY Metoprolol Tartrate [Lopressor] 25 mg PO BID-W/MEALS Ferrous Sulfate [Iron (65 MG Elemental)] 325 mg PO DAILY Atorvastatin [Lipitor] 40 mg PO DAILY Folic Acid 1 mg PO DAILY Multivitamins, Thera [Multivitamin (formulary)] 1 tab PO DAILY busPIRone HCL [Buspar] 7.5 mg PO BID-W/MEALS Sertraline [Zoloft] 25 mg PO DAILY Nitroglycerin Sl Tabs [Nitrostat] 0.4 mg SUBLINGUAL Q5M PRN PRN Reason: Chest Pain Albuterol Sulfate [Albuterol Sulfate Hfa] 2 puff PO RT-Q4H PRN PRN Reason: Shortness Of Breath Ondansetron [Zofran] 4 mg PO Q8HR PRN #21 tab PRN Reason: Nausea Acetaminophen Tab [Tylenol] 650 mg PO Q6H PRN PRN Reason: Mild Pain (Scale 1 To 3) Magnesium Oxide [Mag-Ox] See Taper PO DAILY Thiamine [Vitamin B-1] 100 mg PO DAILY Discharge Medication List Albuterol Sulfate [Albuterol Sulfate Hfa] 2 puff PO RT-Q4H PRN 07/30/24 [History] Ferrous Sulfate [Iron (65 MG Elemental)] 325 mg PO DAILY 07/30/24 [History] Metoprolol Tartrate [Lopressor] 25 mg PO BID-W/MEALS 07/30/24 [History] Nitroglycerin Sl Tabs [Nitrostat] 0.4 mg SUBLINGUAL Q5M PRN 07/30/24 [History] Pantoprazole [Protonix] 40 mg PO DAILY 07/30/24 [History] Sertraline [Zoloft] 25 mg PO DAILY 07/30/24 [History] busPIRone HCL [Buspar] 7.5 mg PO BID-W/MEALS 07/30/24 [History] Ondansetron [Zofran] 4 mg PO Q8HR PRN #21 tab 08/12/24 [Rx] Acetaminophen Tab [Tylenol] 650 mg PO Q6H PRN 08/28/24 [History] Atorvastatin [Lipitor] 40 mg PO DAILY 08/28/24 [History] Folic Acid 1 mg PO DAILY 08/28/24 [History] Magnesium Oxide [Mag-Ox] See Taper PO DAILY 08/28/24 [History] Multivitamins, Thera [Multivitamin (formulary)] 1 tab PO DAILY 08/28/24 [History] Thiamine [Vitamin B-1] 100 mg PO DAILY 08/28/24 [History] Calcium Carbonate [Tums] 1,000 mg PO Q4HR PRN tab 09/06/24 [Rx] Follow up Appointment(s)/Referral(s): Misael Hopkins MD [Primary Care Provider] - 09/09/24 3:20 pm [facility] [NON-STAFF] - Rickie Pavon MD [STAFF PHYSICIAN] - 1 Week (Office closed. Please call office monday for your appointment) Activity/Diet/Wound Care/Special Instructions: Activity limited till follow-up Follow-up with primary care on discharge Follow-up with general surgery outpatient May use boost supplements 3 times daily via PEG tube Recommend 30 cc water bolus flush every 4 hours Recommend aspiration precautions with sitting up at all x 30 to 45 degrees Discussed with your primary care provider and general surgery outpatient regarding tube feedings and possible insurance coverage May also do protein supplements via PEG tube 3-4 times daily Discharge/Stand Alone Forms: Who Do I Call? Discharge Disposition: HOME WITH HOME HEALTH SERVICES
== END 2024-09-06 14:52 | disposition home health service (06) | DRG 393 ==
LOC: EC 12:41 → 3SCARD 17:58 → OBSVTOIN 17:58 → 3SCARD 21:53 → 4SSUR 09-03 23:23
PROVIDERS: ADMIT Internal Medicine; ATTEND Internal Medicine
PROC: 0DH63UZ Insertion of Feeding Device into Stomach, Percutaneous Approach (ICD-10-PCS; principal; 2024-09-02 08:05)
DX: R11.15 Cyclical vomiting syndrome unrelated to migraine (principal); K21.01 Gastro-esophageal reflux disease with esophagitis, with bleeding; J68.0 Bronchitis and pneumonitis due to chemicals, gases, fumes and vapors; M06.9 Rheumatoid arthritis, unspecified; F32.A Depression, unspecified; I10 Essential (primary) hypertension; K22.2 Esophageal obstruction; K44.9 Diaphragmatic hernia without obstruction or gangrene; E78.5 Hyperlipidemia, unspecified; E83.42 Hypomagnesemia; K22.89 Other specified disease of esophagus; E86.0 Dehydration; E87.6 Hypokalemia; F41.9 Anxiety disorder, unspecified; I25.10 Atherosclerotic heart disease of native coronary artery without angina pectoris; Z79.899 Other long term (current) drug therapy; Z86.73 Personal history of transient ischemic attack (TIA), and cerebral infarction without residual deficits; Z87.891 Personal history of nicotine dependence; Z90.49 Acquired absence of other specified parts of digestive tract
CPT/HCPCS: 36415; 43246; 71045; 71046; 74018; 74240; 74248; 80048; 80053; 80306; 81001; 82150; 82533; 83036; 83690; 83735; 84100; 84132; 84443; 84484; 85025; 85610; 85730; 87636; 93306; 96361; 96374; 96375; 99285

== ENCOUNTER 2024-09-09 20:21 | Inpatient (IN) | payer MEDICARE ==
--- NOTE | 2024-09-09 20:53 | ED ---
Nausea/Vomiting/Diarrhea HPI - General Chief complaint: GI Bleed Stated complaint: Vomiting blood-post op Time Seen by Provider: 09/09/24 20:51 Source: patient, RN notes reviewed, old records reviewed Mode of arrival: wheelchair Limitations: no limitations - History of Present Illness Initial comments: This is a 68 male to the ER he is 3 days postop feeding tube. Patient coming in for acute and persistent nausea vomiting. Patient thinks he may be vomiting up some blood unsure. Patient does appear to be vomiting on evaluation here and there does not appear to be any blood. Patient otherwise no complaints no real significant pain occasional wheeze some abdominal pain after retching. Mainly complaining of persistent vomiting MD complaint: nausea, vomiting, abdominal pain -: days(s) Description of Vomiting: watery Description of Diarrhea: water Location: periumbilical Radiation: none Severity: moderate Severity scale (1-10): 6 Quality: aching Consistency: constant Improves with: none Worsens with: none Context: history of abdominal surgery Associated Symptoms: loss of appetite, malaise, nausea/vomiting, weakness - Related Data Home Medications Medication Instructions Recorded Confirmed Albuterol Sulfate [Albuterol 2 puff PO RT-Q4H PRN 07/30/24 09/10/24 Sulfate Hfa] Ferrous Sulfate [Iron (65 MG 325 mg PO DAILY 07/30/24 09/10/24 Elemental)] Metoprolol Tartrate [Lopressor] 25 mg PO BID-W/MEALS 07/30/24 09/10/24 Nitroglycerin Sl Tabs [Nitrostat] 0.4 mg SUBLINGUAL Q5M PRN 07/30/24 09/10/24 Pantoprazole [Protonix] 40 mg PO DAILY 07/30/24 09/10/24 Sertraline [Zoloft] 25 mg PO DAILY 07/30/24 09/10/24 busPIRone HCL [Buspar] 7.5 mg PO BID-W/MEALS 07/30/24 09/10/24 Acetaminophen Tab [Tylenol] 650 mg PO Q6H PRN 08/28/24 09/10/24 Atorvastatin [Lipitor] 40 mg PO DAILY 08/28/24 09/10/24 Folic Acid 1 mg PO DAILY 08/28/24 09/10/24 Multivitamins, Thera [Multivitamin 1 tab PO DAILY 08/28/24 09/10/24 (formulary)] Thiamine [Vitamin B-1] 100 mg PO DAILY 08/28/24 09/10/24 Previous Rx's Medication Instructions Recorded Ondansetron [Zofran] 4 mg PO Q8HR PRN #21 tab 08/12/24 Calcium Carbonate [Tums] 1,000 mg PO Q4HR PRN tab 09/06/24 Allergies Allergy/AdvReac Type Severity Reaction Status Date / Time No Known Allergies Allergy Verified 09/10/24 09:02 Review of Systems ROS Statement: Those systems with pertinent positive or pertinent negative responses have been documented in the HPI. ROS Other: All systems not noted in ROS Statement are negative. Past Medical History Past Medical History: Asthma, Coronary Artery Disease (CAD), Chest Pain / Angina, CVA/TIA, GERD/Reflux, Hyperlipidemia, Hypertension, Pneumonia, Rheumatoid Arthritis (RA) Additional Past Medical History / Comment(s): MIGRAINES, HEART MURMUR, hx HIATAL HERNIA, ANEMIA, one dr told him he had a stroke at one time-no effects, varicose veins, history of incarcerated per esophageal hernia, status post robotic-assisted paraesophageal hernia repair and Frederick fundoplication on 04/12/2022. History of Any Multi-Drug Resistant Organisms: None Reported Past Surgical History: Cholecystectomy, Heart Catheterization, Hernia Repair, Orthopedic Surgery Additional Past Surgical History / Comment(s): Lt achilles tendon,RT SHOULDER surgery, RT ACHILLES TENDON reattached, HEMORRHOIDECTOMY, 13 FATTY TUMORS removed. left hand index finger surgery after injury, EGD WITH DILATION, paraesophageal hernia repair with Frederick fundoplication on 04/12/2022. New feeding tube September 2024. PEG tube Past Anesthesia/Blood Transfusion Reactions: No Reported Reaction Additional Past Anesthesia/Blood Transfusion Reaction / Comment(s): no hx blood transfusion Past Psychological History: Anxiety, Depression Smoking Status: Former smoker Past Alcohol Use History: None Reported Past Drug Use History: Marijuana - Past Family History Mother Family Medical History: Cancer Father Additional Family Medical History / Comment(s): thinks aneurysm General Exam Limitations: no limitations General appearance: alert, in no apparent distress, anxious, in distress Head exam: Present: atraumatic, normocephalic, normal inspection Eye exam: Present: normal appearance, PERRL, EOMI. Absent: scleral icterus, conjunctival injection, periorbital swelling ENT exam: Present: normal exam, mucous membranes moist Neck exam: Present: normal inspection. Absent: tenderness, meningismus, lymphadenopathy Respiratory exam: Present: normal lung sounds bilaterally. Absent: respiratory distress, wheezes, rales, rhonchi, stridor Cardiovascular Exam: Present: normal rhythm, tachycardia, normal heart sounds. Absent: systolic murmur, diastolic murmur, rubs, gallop, clicks GI/Abdominal exam: Present: soft, normal bowel sounds. Absent: distended, tenderness, guarding, rebound, rigid Extremities exam: Present: normal inspection, full ROM, normal capillary refill. Absent: tenderness, pedal edema, joint swelling, calf tenderness Back exam: Present: normal inspection Neurological exam: Present: alert, oriented X3, CN II-XII intact Psychiatric exam: Present: normal affect, normal mood Skin exam: Present: warm, dry, intact, normal color. Absent: rash Course Vital Signs 09/09/24 09/09/24 09/09/24 20:34 20:49 22:14 Temperature 97.4 F L Pulse Rate 158 H 131 H 115 H Respiratory 16 20 20 Rate Blood Pressure 74/59 98/51 103/81 O2 Sat by Pulse 100 97 98 Oximetry 09/10/24 00:00 Temperature 98.1 F Pulse Rate 89 Respiratory 22 Rate Blood Pressure 112/90 O2 Sat by Pulse 95 Oximetry - Reevaluation(s) Reevaluation #1: 09/09/24 22:14 Medical records reviewed Reevaluation #2: 09/09/24 23:24 Patient symptoms dramatically improved Reevaluation #3: 09/09/24 23:24 Patient informed of results questions answered Reevaluation #4: Was pt. sent in by a medical professional or institution (, PA, LAYAWAY CLERK, urgent care, hospital, or group home...) When possible be specific @ -no Did you speak to anyone other than the patient for history (EMS, parent, family, police, friend...)? What history was obtained from this source @ -no Did you review nursing and triage notes (agree or disagree)? Why? @ -agree Are old charts reviewed (outside hosp., previous admission, EMS record, old EKG, old radiological studies, urgent care reports/EKG's, group home records)? Report findings @ -yes Differential Diagnosis (chest pain, altered mental status, abdominal pain women, abdominal pain men, vaginal bleeding, weakness, fever, dyspnea, syncope, headache, dizziness, GI bleed, back pain, seizure, CVA, palpatations, mental health, musculoskeletal)? @ -prior EKG interpreted by me (3pts min.). @ -yes X-rays interpreted by me (1pt min.). @ -yes negative for acute disease CT interpreted by me (1pt min.). @ -no U/S interpreted by me (1pt. min.). @ -no What testing was considered but not performed or refused? (CT, X-rays, U/S, labs)? Why? @ -none What meds were considered but not given or refused? Why? @ -none Did you discuss the management of the patient with other professionals (pr ofessionals i.e. , PA, LAYAWAY CLERK, lab, RT, psych nurse, social worker palliative care, ballet teacher, teacher, infantry weapons officer, case sealer)? Give summary @ -no Was smoking cessation discussed for >3mins.? @ -no Was critical care preformed (if so, how long)? @ -no Were there social determinants of health that impacted care today? How? (Homelessness, low income, unemployed, alcoholism, drug addiction, transportation, low edu. Level, literacy, decrease access to med. care, fci, rehab)? @ -none Was there de-escalation of care discussed even if they declined (Discuss DNR or withdrawal of care, Hospice)? DNR status @ -no What co-morbidities impacted this encounter? (DM, HTN, Smoking, COPD, CAD, Cancer, CVA, ARF, Chemo, Hep., AIDS, mental health diagnosis, sleep apnea, morbid obesity)? @ -none Was patient admitted / discharged? Hospital course, mention meds given and route, prescriptions, significant lab abnormalities, going to OR and other pertinent info. @ - 68 male to the ER for evaluation of intractable nausea vomiting history of same. Patient will admit for IV hydration lactic acidosis Admitted Undiagnosed new problem with uncertain prognosis? @ -no Drug Therapy requiring intensive monitoring for toxicity (Heparin, Nitro, Insulin, Cardizem)? @ -no Were any procedures done? @ -no Diagnosis/symptom? @ -Lactic acidosis with nausea vomiting Acute, or Chronic, or Acute on Chronic? @ -Acute Uncomplicated (without systemic symptoms) or Complicated (systemic symptoms)? @ -Complicated Side effects of treatment? @ -no Exacerbation, Progression, or Severe Exacerbation? @ -exacerbation Poses a threat to life or bodily function? How? (Chest pain, [place], [place], pneumonia, PE, COPD, DKA, ARF, appy, cholecystitis, CVA, Diverticulitis, Homicidal, Suicidal, threat to staff... and all critical care pts) @ -yes severe nausea and vomiting - Consultations Consultation #1: Spoke with [facility] who agrees to admit this patient Medical Decision Making - Medical Decision Making 68 male to the ER for evaluation of intractable nausea vomiting history of same. Patient will admit for IV hydration lactic acidosis - Lab Data Result diagrams: 09/15/24 05:17 09/15/24 05:17 Lab Results 09/09/24 09/09/24 09/09/24 Range/Units 22:00 22:00 22:00 WBC (4.50-10.00) 10*3/uL RBC (4.40-5.60) 10*6/uL Hgb (13.0-17.0) g/dL Hct (39.6-50.0) % MCV (80.0-97.0) fL MCH (27.0-32.0) pg MCHC (32.0-37.0) g/dL Plt Count (140-440) 10*3/uL MPV (9.5-12.2) fL Immature Gran % (Auto) % Neutrophils % % Lymphocytes % % Monocytes % % Eosinophils % % Basophils % % Immature Gran # (0.00-0.04) 10*3/uL Neutrophils # (1.80-7.70) 10*3/uL Lymphocytes # (0.90-5.00) 10*3/uL Monocytes # (0.20-1.00) 10*3/uL Eosinophils # (0.04-0.35) 10*3/uL Basophils # (0.00-0.10) 10*3/uL APTT 22.1 (22.0-30.0) sec Sodium 138 (137-145) mmol/L Potassium 4.5 (3.5-5.1) mmol/L Chloride 100 (98-107) mmol/L Carbon Dioxide 28 (22-30) mmol/L Anion Gap 10 mmol/L BUN 25 H (9-20) mg/dL Creatinine 0.62 L (0.66-1.25) mg/dL Est GFR (CKD-EPI)AfAm >90 (>60 ml/min/1.73 sqM) Est GFR (CKD-EPI)NonAf >90 (>60 ml/min/1.73 sqM) Glucose 151 H (74-99) mg/dL Lactic Ac Sepsis Rflx Plasma Lactic Acid Jack 4.6 H* (0.7-2.0) mmol/L Calcium 8.7 (8.4-10.2) mg/dL Magnesium 1.8 (1.6-2.3) mg/dL Total Bilirubin 1.1 (0.2-1.3) mg/dL AST 34 (17-59) U/L ALT 21 (4-49) U/L Alkaline Phosphatase 98 (38-126) U/L Troponin I (0.000-0.034) ng/mL Total Protein 6.2 L (6.3-8.2) g/dL Albumin 3.6 (3.5-5.0) g/dL Lipase 55 (23-300) U/L Blood Type Blood Type Recheck Bld Type Recheck Status Antibody Screen Spec Expiration Date 09/09/24 09/09/24 09/09/24 Range/Units 22:00 22:05 22:11 WBC 10.49 H (4.50-10.00) 10*3/uL RBC 4.51 (4.40-5.60) 10*6/uL Hgb 14.2 (13.0-17.0) g/dL Hct 41.1 (39.6-50.0) % MCV 91.1 (80.0-97.0) fL MCH 31.5 (27.0-32.0) pg MCHC 34.5 (32.0-37.0) g/dL Plt Count 357 (140-440) 10*3/uL MPV 11.4 (9.5-12.2) fL Immature Gran % (Auto) 1.0 % Neutrophils % 88.1 % Lymphocytes % 6.0 % Monocytes % 4.8 % Eosinophils % 0.0 % Basophils % 0.1 % Immature Gran # 0.10 H (0.00-0.04) 10*3/uL Neutrophils # 9.25 H (1.80-7.70) 10*3/uL Lymphocytes # 0.63 L (0.90-5.00) 10*3/uL Monocytes # 0.50 (0.20-1.00) 10*3/uL Eosinophils # 0.00 L (0.04-0.35) 10*3/uL Basophils # 0.01 (0.00-0.10) 10*3/uL APTT (22.0-30.0) sec Sodium (137-145) mmol/L Potassium (3.5-5.1) mmol/L Chloride (98-107) mmol/L Carbon Dioxide (22-30) mmol/L Anion Gap mmol/L BUN (9-20) mg/dL Creatinine (0.66-1.25) mg/dL Est GFR (CKD-EPI)AfAm (>60 ml/min/1.73 sqM) Est GFR (CKD-EPI)NonAf (>60 ml/min/1.73 sqM) Glucose (74-99) mg/dL Lactic Ac Sepsis Rflx Plasma Lactic Acid Jack (0.7-2.0) mmol/L Calcium (8.4-10.2) mg/dL Magnesium (1.6-2.3) mg/dL Total Bilirubin (0.2-1.3) mg/dL AST (17-59) U/L ALT (4-49) U/L Alkaline Phosphatase (38-126) U/L Troponin I 0.065 H* (0.000-0.034) ng/mL Total Protein (6.3-8.2) g/dL Albumin (3.5-5.0) g/dL Lipase (23-300) U/L Blood Type A Positive Blood Type Recheck A Pos Bld Type Recheck Status No Antibody Screen NEGATIVE Spec Expiration Date 09/12/2024 - 229909/09/24 Range/Units 22:28 WBC (4.50-10.00) 10*3/uL RBC (4.40-5.60) 10*6/uL Hgb (13.0-17.0) g/dL Hct (39.6-50.0) % MCV (80.0-97.0) fL MCH (27.0-32.0) pg MCHC (32.0-37.0) g/dL Plt Count (140-440) 10*3/uL MPV (9.5-12.2) fL Immature Gran % (Auto) % Neutrophils % % Lymphocytes % % Monocytes % % Eosinophils % % Basophils % % Immature Gran # (0.00-0.04) 10*3/uL Neutrophils # (1.80-7.70) 10*3/uL Lymphocytes # (0.90-5.00) 10*3/uL Monocytes # (0.20-1.00) 10*3/uL Eosinophils # (0.04-0.35) 10*3/uL Basophils # (0.00-0.10) 10*3/uL APTT (22.0-30.0) sec Sodium (137-145) mmol/L Potassium (3.5-5.1) mmol/L Chloride (98-107) mmol/L Carbon Dioxide (22-30) mmol/L Anion Gap mmol/L BUN (9-20) mg/dL Creatinine (0.66-1.25) mg/dL Est GFR (CKD-EPI)AfAm (>60 ml/min/1.73 sqM) Est GFR (CKD-EPI)NonAf (>60 ml/min/1.73 sqM) Glucose (74-99) mg/dL Lactic Ac Sepsis Rflx Y Plasma Lactic Acid Jack (0.7-2.0) mmol/L Calcium (8.4-10.2) mg/dL Magnesium (1.6-2.3) mg/dL Total Bilirubin (0.2-1.3) mg/dL AST (17-59) U/L ALT (4-49) U/L Alkaline Phosphatase (38-126) U/L Troponin I (0.000-0.034) ng/mL Total Protein (6.3-8.2) g/dL Albumin (3.5-5.0) g/dL Lipase (23-300) U/L Blood Type Blood Type Recheck Bld Type Recheck Status Antibody Screen Spec Expiration Date - EKG Data -: EKG Interpreted by Me (EKG sinus tachycardia 135 RI 112 QRS 71 QTc 329) - Radiology Data Radiology results: report reviewed (X-ray KUB is negative for acute disease), image reviewed Disposition Clinical Impression: Atypical chest pain, Dehydration, Intractable nausea and vomiting, Weakness, GERONIMO (acute kidney injury), Abdominal pain Disposition: ADMITTED IP TO THIS HOSP Condition: Fair Time of Disposition: 23:30
[2024-09-09] MEDS: SODIUM CHLORIDE 0.9% 1,000 ML IV STA (21:10)
[2024-09-09] MEDS: PANTOPRAZOLE 40 MG/10 ML VIAL IVP STA (21:10)
[2024-09-09] MEDS: ONDANSETRON 4 MG/2 ML VIAL IVP STA (21:10)
[2024-09-09] MEDS: SODIUM CHLORIDE 0.9% 500 ML 500 ML IV STA (21:11)
[2024-09-09 22:22] LABS: Basophils # (A) 0.01 10*3/uL (0.00-0.10); Basophils % (A) 0.1 %; HCT 41.1 % (39.6-50.0); HGB 14.2 g/dL (13.0-17.0); Lymphocytes # (A) 0.63 10*3/uL (0.90-5.00); MCH 31.5 pg (27.0-32.0); MCHC 34.5 g/dL (32.0-37.0); MCV 91.1 fL (80.0-97.0); Mean Platelet Volume 11.4 fL (9.5-12.2); Monocytes % (A) 4.8 %; Neutrophils # (A) 9.25 10*3/uL (1.80-7.70); Neutrophils % (A) 88.1 %; Platelet Count 357 10*3/uL (140-440); RBC 4.51 10*6/uL (4.40-5.60); RDW 20.3 % (11.5-14.5); WBC 10.49 10*3/uL (4.50-10.00)
[2024-09-09] MEDS: HYDROmorphone 0.5 MG/0.5 ML SYRINGE IVP STA (22:26)
[2024-09-09] MEDS: SODIUM CHLORIDE 0.9% 1,000 ML IV ONE (22:27)
[2024-09-09 22:28] LABS: ALT 21 U/L (4-49); African American GFR (CKD) >90 (>60 ml/min/1.73 sqM); Albumin 3.6 g/dL (3.5-5.0); Anion Gap 10 mmol/L; Blood Urea Nitrogen 25 mg/dL (9-20); Calcium 8.7 mg/dL (8.4-10.2); Carbon Dioxide 28 mmol/L (22-30); Chloride 100 mmol/L (98-107); Glucose 151 mg/dL (74-99); Lipase 55 U/L (23-300); Non-African American GFR(CKD) >90 (>60 ml/min/1.73 sqM); Sodium 138 mmol/L (137-145); Total Bilirubin 1.1 mg/dL (0.2-1.3); Total Protein 6.2 g/dL (6.3-8.2)
[2024-09-09 22:29] LABS: AST 34 U/L (17-59); Alkaline Phosphatase 98 U/L (38-126); Magnesium 1.8 mg/dL (1.6-2.3); Potassium 4.5 mmol/L (3.5-5.1)
[2024-09-09] MEDS ORDERED: NALOXONE 0.4 MG/ML 1 ML VIAL IV PRN (23:22)
--- NOTE | 2024-09-09 23:51 | XR ---
EXAMINATION TYPE: XR KUB DATE OF EXAM: 09/09/2024 11:41 PM COMPARISON: 08/28/2024 CLINICAL INDICATION: Male, 68 years old with history of nv; PHH TECHNIQUE: One radiographic view of the abdomen was obtained. FINDINGS: The bowel gas pattern is nonspecific without dilated loops of small or large bowel. . Fecal material and gas are demonstrated throughout the colon and rectum. There is no evidence for organome gladis or pneumoperitoneum. Degeneration changes of the spine. No acute osseous process. No abnormal calcifications are present. IMPRESSION: Nonspecific bowel gas pattern without radiographic evidence for acute process. [facility], , 09/09/2024 11:48 PM
[2024-09-10 07:36] LABS: Basophils # (A) 0.02 10*3/uL (0.00-0.10); Basophils % (A) 0.2 %; Eosinophils # (A) 0.01 10*3/uL (0.04-0.35); Eosinophils % (A) 0.1 %; HCT 36.7 % (39.6-50.0); HGB 12.5 g/dL (13.0-17.0); Lymphocytes # (A) 0.83 10*3/uL (0.90-5.00); Lymphocytes % (A) 7.4 %; MCHC 34.1 g/dL (32.0-37.0); MCV 91.1 fL (80.0-97.0); Mean Platelet Volume 11.8 fL (9.5-12.2); Monocytes # (A) 1.05 10*3/uL (0.20-1.00); Monocytes % (A) 9.3 %; Neutrophils # (A) 9.27 10*3/uL (1.80-7.70); Neutrophils % (A) 82.1 %; Platelet Count 278 10*3/uL (140-440); RBC 4.03 10*6/uL (4.40-5.60); RDW 20.3 % (11.5-14.5); WBC 11.28 10*3/uL (4.50-10.00)
[2024-09-10 07:55] LABS: ALT 16 U/L (4-49); AST 23 U/L (17-59); African American GFR (CKD) >90 (>60 ml/min/1.73 sqM); Albumin 2.8 g/dL (3.5-5.0); Alkaline Phosphatase 88 U/L (38-126); Anion Gap 7 mmol/L; Blood Urea Nitrogen 23 mg/dL (9-20); Calcium 8.5 mg/dL (8.4-10.2); Carbon Dioxide 29 mmol/L (22-30); Chloride 103 mmol/L (98-107); Glucose 105 mg/dL (74-99); Magnesium 1.8 mg/dL (1.6-2.3); Non-African American GFR(CKD) >90 (>60 ml/min/1.73 sqM); Potassium 3.8 mmol/L (3.5-5.1); Sodium 139 mmol/L (137-145); Total Bilirubin 0.8 mg/dL (0.2-1.3); Total Protein 5.1 g/dL (6.3-8.2)
[2024-09-10] MEDS: ONDANSETRON 4 MG/2 ML VIAL IVP PRN ×2 (08:57→21:26)
[2024-09-10] MEDS: PANTOPRAZOLE 40 MG/10 ML VIAL IV SCH (08:57)
[2024-09-10] MEDS: ONDANSETRON 4 MG/2 ML VIAL IVP STA (11:54)
--- NOTE | 2024-09-10 12:36 | P.HPIM ---
History of Present Illness This is a pleasant 68 years old male who was recently discharged from this facility about 4 days ago for nausea vomiting and malnutrition status post PEG tube placement by surgery team. Once he been discharged he started having recurrent nausea vomiting again, he vomited 6 times since yesterday with no blood. Associated with epigastric pain and tenderness His troponin was elevated but EKG showing SVT. He has been evaluated by supervising broker as well during last admission for elevated troponin. Currently denies chest pain or dyspnea. No specific urinary symptoms. No headache dizziness weakness or numbness He is pain mainly in the epigastric area about 9/10 felt like squeezing nonradiating with no precipitating or relieving factors. He states that the pain is similar to last time. He has no bowel movement. He is using the PEG tube at home. He got Zofran 4 mg and is requesting more medicine He is hemodynamically stable and afebrile He has unremarkable CBC, BMP, LFT. WBC is mildly elevated at 10.4 at 11. Lactic acid 4.6 came back to normal at 1.7. Troponin is elevated 0.065. KUB showing nonspecific gas bowel pattern. EKG showed SVT with a rate of [address] depression in V3-V5 Review of Systems Review of systems CONSTITUTIONAL: No fever, no malaise, no fatigue. HEENT: No recent visual problems or hearing problems. Denied any sore throat. CARDIOVASCULAR: No orthopnea, PND, no palpitations, no syncope. PULMONARY: No shortness of breath, no cough, no hemoptysis. GASTROINTESTINAL: No diarrhea, no nausea, no vomiting, no abdominal pain. Normoactive bowel sounds. NEUROLOGICAL: No headaches, no weakness, no numbness. HEMATOLOGICAL: Denies any bleeding or petechiae. GENITOURINARY: Denies any burning micturition, frequency, or urgency. MUSCULOSKELETAL/RHEUMATOLOGICAL: Denies any joint pain, swelling, or any muscle pain. ENDOCRINE: Denies any polyuria or polydipsia. Past Medical History Past Medical History: Asthma, Coronary Artery Disease (CAD), Chest Pain / Angina, CVA/TIA, GERD/Reflux, Hyperlipidemia, Hypertension, Pneumonia, Rheumatoid Arthritis (RA) Additional Past Medical History / Comment(s): MIGRAINES, HEART MURMUR, hx HIATAL HERNIA, ANEMIA, one dr told him he had a stroke at one time-no effects, varicose veins, history of incarcerated per esophageal hernia, status post robotic-assisted paraesophageal hernia repair and Frederick fundoplication on 04/12/2022. History of Any Multi-Drug Resistant Organisms: None Reported Past Surgical History: Cholecystectomy, Heart Catheterization, Hernia Repair, Orthopedic Surgery Additional Past Surgical History / Comment(s): Lt achilles tendon,RT SHOULDER surgery, RT ACHILLES TENDON reattached, HEMORRHOIDECTOMY, 13 FATTY TUMORS removed. left hand index finger surgery after injury, EGD WITH DILATION, paraesophageal hernia repair with Frederick fundoplication on 04/12/2022. New feeding tube September 2024. PEG tube Past Anesthesia/Blood Transfusion Reactions: No Reported Reaction Additional Past Anesthesia/Blood Transfusion Reaction / Comment(s): no hx blood transfusion Past Psychological History: Anxiety, Depression Smoking Status: Former smoker Past Alcohol Use History: None Reported Additional Past Alcohol Use History / Comment(s): QUIT SMOKING 1999, APPROX SMOKED 20 YRS, 1-2PPD. pt states hx alcoholism Past Drug Use History: Marijuana Additional Drug Use History / Comment(s): CURRENTLY USES MARIJUANA - Past Family History Mother Family Medical History: Cancer Father Additional Family Medical History / Comment(s): thinks aneurysm Medications and Allergies Home Medications Medication Instructions Recorded Confirmed Type Albuterol Sulfate [Albuterol 2 puff PO RT-Q4H PRN 07/30/24 09/10/24 History Sulfate Hfa] Ferrous Sulfate [Iron (65 MG 325 mg PO DAILY 07/30/24 09/10/24 History Elemental)] Metoprolol Tartrate [Lopressor] 25 mg PO BID-W/MEALS 07/30/24 09/10/24 History Nitroglycerin Sl Tabs [Nitrostat] 0.4 mg SUBLINGUAL Q5M PRN 07/30/24 09/10/24 History Pantoprazole [Protonix] 40 mg PO DAILY 07/30/24 09/10/24 History Sertraline [Zoloft] 25 mg PO DAILY 07/30/24 09/10/24 History busPIRone HCL [Buspar] 7.5 mg PO BID-W/MEALS 07/30/24 09/10/24 History Ondansetron [Zofran] 4 mg PO Q8HR PRN #21 tab 08/12/24 09/10/24 Rx Acetaminophen Tab [Tylenol] 650 mg PO Q6H PRN 08/28/24 09/10/24 History Atorvastatin [Lipitor] 40 mg PO DAILY 08/28/24 09/10/24 History Folic Acid 1 mg PO DAILY 08/28/24 09/10/24 History Multivitamins, Thera [Multivitamin 1 tab PO DAILY 08/28/24 09/10/24 History (formulary)] Thiamine [Vitamin B-1] 100 mg PO DAILY 08/28/24 09/10/24 History Calcium Carbonate [Tums] 1,000 mg PO Q4HR PRN tab 09/06/24 09/10/24 Rx Allergies Allergy/AdvReac Type Severity Reaction Status Date / Time No Known Allergies Allergy Verified 09/10/24 09:02 Physical Exam Vitals: Vital Signs Temp Pulse Pulse Resp BP BP Pulse Ox 09/10/24 08:05 97.2 F L 104 H 18 132/91 98 09/10/24 03:12 97.6 F 87 18 123/81 98 09/10/24 00:37 97.6 F 94 18 143/78 94 L 09/10/24 00:00 98.1 F 89 22 112/90 95 09/09/24 22:14 115 H 20 103/81 98 09/09/24 20:49 131 H 20 98/51 97 09/09/24 20:34 97.4 F L 158 H 16 74/59 100 Intake and Output 09/09/24 09/10/24 09/10/24 22:59 06:59 14:59 Output Total 500 Balance -500 Output: Urine 500 Other: Voiding Method Toilet Urinal # Voids 0 Weight 63.503 kg 55.1 kg -GENERAL: The patient is alert and oriented x3, not in any acute distress. Well developed, well nourished. Thin built HEENT: Pupils are round and equally reacting to light. EOMI. No scleral icterus. No conjunctival pallor. Normocephalic, atraumatic. No pharyngeal erythema. No thyromegaly. CARDIOVASCULAR: S1 and S2 present. No murmurs, rubs, or gallops. PULMONARY: Chest is clear to auscultation, no wheezing , no crackles. -ABDOMEN: Soft, epigastric tenderness nondistended, normoactive bowel sounds. No palpable organomegaly. PEG tube is present in place MUSCULOSKELETAL: No joint swelling or deformity. EXTREMITIES: No cyanosis, clubbing, or pedal edema. NEUROLOGICAL: Gross neurological examination did not reveal any focal deficits. SKIN: No rashes. no petechiae. Results CBC & Chem 7: 09/10/24 06:51 09/10/24 06:51 Labs: Abnormal Lab Results - Last 24 Hours (Table) 09/09/24 09/09/24 09/09/24 Range/Units 22:00 22:00 22:00 WBC (4.50-10.00) 10*3/uL RBC (4.40-5.60) 10*6/uL Hgb (13.0-17.0) g/dL Hct (39.6-50.0) % Immature Gran # (0.00-0.04) 10*3/uL Neutrophils # (1.80-7.70) 10*3/uL Lymphocytes # (0.90-5.00) 10*3/uL Monocytes # (0.20-1.00) 10*3/uL Eosinophils # (0.04-0.35) 10*3/uL BUN 25 H (9-20) mg/dL Creatinine 0.62 L (0.66-1.25) mg/dL Glucose 151 H (74-99) mg/dL Plasma Lactic Acid Jack 4.6 H* (0.7-2.0) mmol/L Troponin I 0.065 H* (0.000-0.034) ng/mL Total Protein 6.2 L (6.3-8.2) g/dL Albumin (3.5-5.0) g/dL 09/09/24 09/10/24 09/10/24 Range/Units 22:11 06:51 06:51 WBC 10.49 H 11.28 H (4.50-10.00) 10*3/uL RBC 4.03 L (4.40-5.60) 10*6/uL Hgb 12.5 L (13.0-17.0) g/dL Hct 36.7 L (39.6-50.0) % Immature Gran # 0.10 H 0.10 H (0.00-0.04) 10*3/uL Neutrophils # 9.25 H 9.27 H (1.80-7.70) 10*3/uL Lymphocytes # 0.63 L 0.83 L (0.90-5.00) 10*3/uL Monocytes # 1.05 H (0.20-1.00) 10*3/uL Eosinophils # 0.00 L 0.01 L (0.04-0.35) 10*3/uL BUN 23 H (9-20) mg/dL Creatinine 0.48 L (0.66-1.25) mg/dL Glucose 105 H (74-99) mg/dL Plasma Lactic Acid Jack (0.7-2.0) mmol/L Troponin I (0.000-0.034) ng/mL Total Protein 5.1 L (6.3-8.2) g/dL Albumin 2.8 L (3.5-5.0) g/dL Thrombosis Risk Factor Assmnt - Choose All That Apply Any of the Below Risk Factors Present?: No Other Risk Factors: Yes Each Risk Factor Represents 2 Points: Age 61-74 years Other congenital or acquired thrombophilia - If yes, enter type in comment: No Thrombosis Risk Factor Assessment Total Risk Factor Score: 2 Thrombosis Risk Factor Assessment Level: Low Risk Assessment and Plan Assessment: Recurrent nausea vomiting, intractable requiring PEG tube placement during last admission Epigastric pain and tenderness could be secondary to gastritis Elevated troponin could be secondary to SVT related dehydration, evaluated by cardiology during last admission Severe calorie protein malnutrition Hypertension Hyperlipidemia Anxiety/depression, not on active issue - Distal esophagitis Hiatal hernia seen on recent EKG Plan: Continues intake via PEG tube Surgical team consult Nutrition consult Continue with Zofran and if no benefit may add Phenergan this was discussed with the patient and he agrees Cardiology team consult Resume home medication Labs and medication were reviewed.. Continue same treatment. Continue with symptomatic treatment. Resume home medication. Monitor labs and vitals. DVT and GI prophylaxis. Further recommendations as per clinical course of the patient DVT prophylaxis: Subcutaneous heparin GI Prophylaxis: Pepcid Prognosis is guarded
--- NOTE | 2024-09-10 12:45 | P.GSCN ---
History of Present Illness Consult date: 09/10/24 History of present illness: CHIEF COMPLAINT: Nausea and vomiting HISTORY OF PRESENT ILLNESS: This is a 68-year-old male who presented back to the hospital for intractable nausea and vomiting. He has had multiple hospitalizations for intractable nausea and vomiting. Patient had EGD with PEG tube placed on September 02, 2024. Patient with a known history of esophageal d ysmotility and hiatal hernia. He did have a hiatal hernia repair in 2021. Also history of a cholecystectomy. Patient does report no bowel movement for 3 days but has been unable to keep anything down. He did report a small amount of blood in the emesis. He has been doing boost drinks down his PEG tube. Insurance does not cover the tube feeds. PAST MEDICAL HISTORY: Asthma, Coronary Artery Disease (CAD), Chest Pain / Angina, CVA/TIA, GERD/Reflux, Hyperlipidemia, Hypertension, Pneumonia, Rheumatoid Arthritis (RA)MIGRAINES, HEART MURMUR, hx HIATAL HERNIA, ANEMIA, one dr told him he had a stroke at one time-no effects, varicose veins, history of incarcerated per esophageal hernia, status post robotic-assisted paraesophageal hernia repair and Frederick fundoplication on 04/12/2022. PAST SURGICAL HISTORY: Cholecystectomy, Heart Catheterization, Hernia Repair, Orthopedic Surgery, paraesophageal hernia repair with Frederick fundoplication on 04/12/2022. Peg tube September 2024 MEDICATIONS: See below ALLERGIES: See below SOCIAL HISTORY: No illicit drug use. REVIEW OF SYSTEMS: CONSTITUTIONAL: Denies fever or chills. HEENT: Denies blurred vision, vision changes, or eye pain. Denies hemoptysis CARDIOVASCULAR: Denies chest pain or pressure. RESPIRATORY: No shortness of breath. GASTROINTESTINAL: See HPI for pertinent findings HEMATOLOGIC: Denies bleeding disorders. GENITOURINARY: Denies any blood in urine or increased urinary frequency. SKIN: Denies pruitis. Denies rash. PHYSICAL EXAM: VITAL SIGNS: Reviewed GENERAL: no acute distress. Patient has his head covered with a blanket. HEENT: No sclera icterus. Extraocular movements grossly intact. Moist buccal mucosa. Head is atraumatic, normocephalic. No nasal drainage. ABDOMEN: Soft. Nondistended. Mild tenderness around PEG tube site. PEG tube site clean dry and intact NEUROLOGIC: Alert and oriented. Cranial nerves II through XII grossly intact. LABORATORY DATA: WBC 11.28 Hgb 12.5 platelets 278 Sodium 139 potassium 3.8 creatinine 0.48 Lactic acid 4.6 down to 1.7 LFTs normal Lipase 55 Troponin 0.065 IMAGING: KUB x-ray reports nonspecific bowel gas pattern without radiographic evidence for acute process ASSESSMENT: 1. Intractable nausea and vomiting 2. History of esophageal dysmotility disorder 3. Hiatal hernia 4. Esophagitis PLAN: - Upper GI with small bowel follow-through with contrast placed through PEG tube for further evaluation of patient's intractable nausea and vomiting - Recommend psychiatric consult for depression - Continue antiemetics - Continue PPI - Keep n.p.o. for now Physician Mobility Specialist note has been reviewed by physician. Signing provider agrees with the documented findings, assessment, and plan of care. Past Medical History Past Medical History: Asthma, Coronary Artery Disease (CAD), Chest Pain / Angina, CVA/TIA, GERD/Reflux, Hyperlipidemia, Hypertension, Pneumonia, Rheumatoid Arthritis (RA) Additional Past Medical History / Comment(s): MIGRAINES, HEART MURMUR, hx HIATAL HERNIA, ANEMIA, one dr told him he had a stroke at one time-no effects, varicose veins, history of incarcerated per esophageal hernia, status post robotic-assisted paraesophageal hernia repair and Frederick fundoplication on 01/2022. History of Any Multi-Drug Resistant Organisms: None Reported Past Surgical History: Cholecystectomy, Heart Catheterization, Hernia Repair, Orthopedic Surgery Additional Past Surgical History / Comment(s): Lt achilles tendon,RT SHOULDER surgery, RT ACHILLES TENDON reattached, HEMORRHOIDECTOMY, 13 FATTY TUMORS removed. left hand index finger surgery after injury, EGD WITH DILATION, paraesophageal hernia repair with Frederick fundoplication on 04/12/2022. New feeding tube September 2024. PEG tube Past Anesthesia/Blood Transfusion Reactions: No Reported Reaction Additional Past Anesthesia/Blood Transfusion Reaction / Comm: no hx blood transfusion Past Psychological History: Anxiety, Depression Smoking Status: Former smoker Past Alcohol Use History: None Reported Additional Past Alcohol Use History / Comment(s): QUIT SMOKING 1999, APPROX SMOKED 20 YRS, 1-2PPD. pt states hx alcoholism Past Drug Use History: Marijuana Additional Drug Use History / Comment(s): CURRENTLY USES MARIJUANA - Past Family History Mother Family Medical History: Cancer Father Additional Family Medical History / Comment(s): thinks aneurysm Medications and Allergies Home Medications Medication Instructions Recorded Confirmed Type Albuterol Sulfate [Albuterol 2 puff PO RT-Q4H PRN 07/30/24 09/10/24 History Sulfate Hfa] Ferrous Sulfate [Iron (65 MG 325 mg PO DAILY 07/30/24 09/10/24 History Elemental)] Metoprolol Tartrate [Lopressor] 25 mg PO BID-W/MEALS 07/30/24 09/10/24 History Nitroglycerin Sl Tabs [Nitrostat] 0.4 mg SUBLINGUAL Q5M PRN 07/30/24 09/10/24 History Pantoprazole [Protonix] 40 mg PO DAILY 07/30/24 09/10/24 History Sertraline [Zoloft] 25 mg PO DAILY 07/30/24 09/10/24 History busPIRone HCL [Buspar] 7.5 mg PO BID-W/MEALS 07/30/24 09/10/24 History Ondansetron [Zofran] 4 mg PO Q8HR PRN #21 tab 08/12/24 09/10/24 Rx Acetaminophen Tab [Tylenol] 650 mg PO Q6H PRN 08/28/24 09/10/24 History Atorvastatin [Lipitor] 40 mg PO DAILY 08/28/24 09/10/24 History Folic Acid 1 mg PO DAILY 08/28/24 09/10/24 History Multivitamins, Thera [Multivitamin 1 tab PO DAILY 08/28/24 09/10/24 History (formulary)] Thiamine [Vitamin B-1] 100 mg PO DAILY 08/28/24 09/10/24 History Calcium Carbonate [Tums] 1,000 mg PO Q4HR PRN tab 09/06/24 09/10/24 Rx Allergies Allergy/AdvReac Type Severity Reaction Status Date / Time No Known Allergies Allergy Verified 09/10/24 09:02 Surgical - Exam Vital Signs Temp Pulse Resp BP Pulse Ox 97.4 F L 158 H 16 74/59 100 09/09/24 20:34 09/09/24 20:34 09/09/24 20:34 09/09/24 20:34 09/09/24 20:34 Results - Labs 09/10/24 06:51 09/10/24 06:51 Abnormal Lab Results - Last 24 Hours (Table) 09/09/24 09/09/24 09/09/24 Range/Units 22:00 22:00 22:00 WBC (4.50-10.00) 10*3/uL RBC (4.40-5.60) 10*6/uL Hgb (13.0-17.0) g/dL Hct (39.6-50.0) % Immature Gran # (0.00-0.04) 10*3/uL Neutrophils # (1.80-7.70) 10*3/uL Lymphocytes # (0.90-5.00) 10*3/uL Monocytes # (0.20-1.00) 10*3/uL Eosinophils # (0.04-0.35) 10*3/uL BUN 25 H (9-20) mg/dL Creatinine 0.62 L (0.66-1.25) mg/dL Glucose 151 H (74-99) mg/dL Plasma Lactic Acid Jack 4.6 H* (0.7-2.0) mmol/L Troponin I 0.065 H* (0.000-0.034) ng/mL Total Protein 6.2 L (6.3-8.2) g/dL Albumin (3.5-5.0) g/dL 09/09/24 09/10/24 09/10/24 Range/Units 22:11 06:51 06:51 WBC 10.49 H 11.28 H (4.50-10.00) 10*3/uL RBC 4.03 L (4.40-5.60) 10*6/uL Hgb 12.5 L (13.0-17.0) g/dL Hct 36.7 L (39.6-50.0) % Immature Gran # 0.10 H 0.10 H (0.00-0.04) 10*3/uL Neutrophils # 9.25 H 9.27 H (1.80-7.70) 10*3/uL Lymphocytes # 0.63 L 0.83 L (0.90-5.00) 10*3/uL Monocytes # 1.05 H (0.20-1.00) 10*3/uL Eosinophils # 0.00 L 0.01 L (0.04-0.35) 10*3/uL BUN 23 H (9-20) mg/dL Creatinine 0.48 L (0.66-1.25) mg/dL Glucose 105 H (74-99) mg/dL Plasma Lactic Acid Jack (0.7-2.0) mmol/L Troponin I (0.000-0.034) ng/mL Total Protein 5.1 L (6.3-8.2) g/dL Albumin 2.8 L (3.5-5.0) g/dL Diabetes panel 09/09/24 09/10/24 Range/Units 22:00 06:51 Sodium 138 139 (137-145) mmol/L Potassium 4.5 3.8 (3.5-5.1) mmol/L Chloride 100 103 (98-107) mmol/L Carbon Dioxide 28 29 (22-30) mmol/L BUN 25 H 23 H (9-20) mg/dL Creatinine 0.62 L 0.48 L (0.66-1.25) mg/dL Glucose 151 H 105 H (74-99) mg/dL Calcium 8.7 8.5 (8.4-10.2) mg/dL AST 34 23 (17-59) U/L ALT 21 16 (4-49) U/L Alkaline Phosphatase 98 88 (38-126) U/L Total Protein 6.2 L 5.1 L (6.3-8.2) g/dL Albumin 3.6 2.8 L (3.5-5.0) g/dL Calcium panel 09/09/24 09/10/24 Range/Units 22:00 06:51 Calcium 8.7 8.5 (8.4-10.2) mg/dL Phosphorus 4.0 (2.5-4.5) mg/dL Albumin 3.6 2.8 L (3.5-5.0) g/dL Pituitary panel 09/09/24 09/10/24 Range/Units 22:00 06:51 Sodium 138 139 (137-145) mmol/L Potassium 4.5 3.8 (3.5-5.1) mmol/L Chloride 100 103 (98-107) mmol/L Carbon Dioxide 28 29 (22-30) mmol/L BUN 25 H 23 H (9-20) mg/dL Creatinine 0.62 L 0.48 L (0.66-1.25) mg/dL Glucose 151 H 105 H (74-99) mg/dL Calcium 8.7 8.5 (8.4-10.2) mg/dL Adrenal panel 09/09/24 09/10/24 Range/Units 22:00 06:51 Sodium 138 139 (137-145) mmol/L Potassium 4.5 3.8 (3.5-5.1) mmol/L Chloride 100 103 (98-107) mmol/L Carbon Dioxide 28 29 (22-30) mmol/L BUN 25 H 23 H (9-20) mg/dL Creatinine 0.62 L 0.48 L (0.66-1.25) mg/dL Glucose 151 H 105 H (74-99) mg/dL Calcium 8.7 8.5 (8.4-10.2) mg/dL Total Bilirubin 1.1 0.8 (0.2-1.3) mg/dL AST 34 23 (17-59) U/L ALT 21 16 (4-49) U/L Alkaline Phosphatase 98 88 (38-126) U/L Total Protein 6.2 L 5.1 L (6.3-8.2) g/dL Albumin 3.6 2.8 L (3.5-5.0) g/dL
--- NOTE | 2024-09-10 14:37 | P.CRDCN ---
History of Present Illness Consult date: 09/10/24 Reason for Consult (text): SVT with high troponin. History of present illness: This is a 68-year-old male with past medical history of hypertension and dyslipidemia, history of esophageal strictures with multiple dilatations, status post PEG tube placement, chronic nausea and vomiting. Patient states that he came into the hospital because of nausea and vomiting. He states he has a little bit of chest pain. No shortness of breath. He states he has been told no one knows why he has nausea and vomiting has been going on for very long jeannie e. He denies any dizziness, palpitations or syncopal episodes. He denies any lower extremity edema. He denies history of diabetes or asthma. No blood in his stools. No history of CVA or seizure. He is currently vomiting during examination. Blood pressure 116/70, heart rate 102, pulse ox 97% on room air. Patient is status post multiple doses of Zofran and IV fluid resuscitation. Kel calle was recently hospitalized at the end of August into September and was seen by cardiology at that time for T wave inversions and abnormal troponin. -EKG: Sinus rhythm 135 bpm - KUB: Nonspecific bowel gas pattern. -Laboratory studies: WBC 11.2, hemoglobin 12.5, BUN 23 creatinine 0.48. T roponin 0.065. Lactic acid initially 4.6 and repeat 1.7. -Home cardiac medications: Atorvastatin 40 mg daily, metoprolol tartrate 25 mg twice daily, Nitrostat as needed. -Echocardiogram performed on 08/30/2024 reveals EF of 60%. Mild mitral regurgitation. Review Of Systems: At the time of my exam: CONSTITUTIONAL: Denies fever or chills. HEENT: Denies blurred vision, vision changes, or eye pain. Denies hemoptysis CARDIOVASCULAR: Denies chest pain. Denies orthopnea. Denies PND. Denies palpitations RESPIRATORY: Denies shortness of breath. GASTROINTESTINAL: Denies abdominal pain. Denies nausea or vomiting. HEMATOLOGIC: Denies bleeding disorders. GENITOURINARY: Denies any blood in urine. SKIN: Denies puritis. Denies rash. Physical examination: Gen: This is [ ] VS: reviewed HEENT: Head is atraumatic, normocephalic. Pupils equal, round. Sclerae is anicteric. NECK: Supple. No JVD. LUNGS: Clear to auscultation. No wheezes or rhonchi. No intercostal retractions. HEART: Regular rate and rhythm. No murmur. ABDOMEN: Soft No tenderness. EXTREMITIES: No pedal edema. No calf tenderness. NEUROLOGICAL: Patient is awake, alert and oriented x3. Assessment: Chronic nausea and vomiting Lactic acidosis Elevated troponin type II CA Hypertension Plan: Resume patient's home cardiac medications No further cardiac workup at this time Cardiology will sign off and follow on an as-needed basis. If any new concerns or questions please call. No need to repeat echocardiogram Thank you kindly for this consultation. Nurse practitioner note has been reviewed, I agree with documented findings and plan of care. Patient was seen and examined. Past Medical History Past Medical History: Asthma, Coronary Artery Disease (CAD), Chest Pain / Angina, CVA/TIA, GERD/Reflux, Hyperlipidemia, Hypertension, Pneumonia, Rheumatoid Arthritis (RA) Additional Past Medical History / Comment(s): MIGRAINES, HEART MURMUR, hx HIATAL HERNIA, ANEMIA, one dr told him he had a stroke at one time-no effects, varicose veins, history of incarcerated per esophageal hernia, status post robotic-assisted paraesophageal hernia repair and Frederick fundoplication on 04/12/2022. History of Any Multi-Drug Resistant Organisms: None Reported Past Surgical History: Cholecystectomy, Heart Catheterization, Hernia Repair, Orthopedic Surgery Additional Past Surgical History / Comment(s): Lt achilles tendon,RT SHOULDER surgery, RT ACHILLES TENDON reattached, HEMORRHOIDECTOMY, 13 FATTY TUMORS removed. left hand index finger surgery after injury, EGD WITH DILATION, paraesophageal hernia repair with Frederick fundoplication on 04/12/2022. New feeding tube September 2024. PEG tube Past Anesthesia/Blood Transfusion Reactions: No Reported Reaction Additional Past Anesthesia/Blood Transfusion Reaction / Comment(s): no hx blood transfusion Past Psychological History: Anxiety, Depression Smoking Status: Former smoker Past Alcohol Use History: None Reported Additional Past Alcohol Use History / Comment(s): QUIT SMOKING 1999, APPROX SMOKED 20 YRS, 1-2PPD. pt states hx alcoholism Past Drug Use History: Marijuana Additional Drug Use History / Comment(s): CURRENTLY USES MARIJUANA - Past Family History Mother Family Medical History: Cancer Father Additional Family Medical History / Comment(s): thinks aneurysm Medications and Allergies Home Medications Medication Instructions Recorded Confirmed Type Albuterol Sulfate [Albuterol 2 puff PO RT-Q4H PRN 07/30/24 09/10/24 History Sulfate Hfa] Ferrous Sulfate [Iron (65 MG 325 mg PO DAILY 07/30/24 09/10/24 History Elemental)] Metoprolol Tartrate [Lopressor] 25 mg PO BID-W/MEALS 07/30/24 09/10/24 History Nitroglycerin Sl Tabs [Nitrostat] 0.4 mg SUBLINGUAL Q5M PRN 07/30/24 09/10/24 History Pantoprazole [Protonix] 40 mg PO DAILY 07/30/24 09/10/24 History Sertraline [Zoloft] 25 mg PO DAILY 07/30/24 09/10/24 History busPIRone HCL [Buspar] 7.5 mg PO BID-W/MEALS 07/30/24 09/10/24 History Ondansetron [Zofran] 4 mg PO Q8HR PRN #21 tab 08/12/24 09/10/24 Rx Acetaminophen Tab [Tylenol] 650 mg PO Q6H PRN 08/28/24 09/10/24 History Atorvastatin [Lipitor] 40 mg PO DAILY 08/28/24 09/10/24 History Folic Acid 1 mg PO DAILY 08/28/24 09/10/24 History Multivitamins, Thera [Multivitamin 1 tab PO DAILY 08/28/24 09/10/24 History (formulary)] Thiamine [Vitamin B-1] 100 mg PO DAILY 08/28/24 09/10/24 History Calcium Carbonate [Tums] 1,000 mg PO Q4HR PRN tab 09/06/24 09/10/24 Rx Allergies Allergy/AdvReac Type Severity Reaction Status Date / Time No Known Allergies Allergy Verified 09/10/24 09:02 Physical Exam Vitals: Vital Signs Temp Pulse Pulse Resp BP BP Pulse Ox 09/10/24 08:05 97.2 F L 104 H 18 132/91 98 09/10/24 03:12 97.6 F 87 18 123/81 98 09/10/24 00:37 97.6 F 94 18 143/78 94 L 09/10/24 00:00 98.1 F 89 22 112/90 95 09/09/24 22:14 115 H 20 103/81 98 09/09/24 20:49 131 H 20 98/51 97 09/09/24 20:34 97.4 F L 158 H 16 74/59 100 Intake and Output 09/09/24 09/10/24 09/10/24 22:59 06:59 14:59 Output Total 500 Balance -500 Output: Urine 500 Other: Voiding Method Toilet Urinal # Voids 0 Weight 63.503 kg 55.1 kg Results 09/10/24 06:51 09/10/24 06:51 Cardiac Enzymes 09/09/24 09/09/24 09/10/24 Range/Units 22:00 22:00 06:51 AST 34 23 (17-59) U/L Troponin I 0.065 H* (0.000-0.034) ng/mL Coagulation 09/09/24 Range/Units 22:00 APTT 22.1 (22.0-30.0) sec CBC 09/09/24 09/10/24 Range/Units 22:11 06:51 WBC 10.49 H 11.28 H (4.50-10.00) 10*3/uL RBC 4.51 4.03 L (4.40-5.60) 10*6/uL Hgb 14.2 12.5 L (13.0-17.0) g/dL Hct 41.1 36.7 L (39.6-50.0) % Plt Count 357 278 (140-440) 10*3/uL Comprehensive Metabolic Panel 09/09/24 09/10/24 Range/Units 22:00 06:51 Sodium 138 139 (137-145) mmol/L Potassium 4.5 3.8 (3.5-5.1) mmol/L Chloride 100 103 (98-107) mmol/L Carbon Dioxide 28 29 (22-30) mmol/L BUN 25 H 23 H (9-20) mg/dL Creatinine 0.62 L 0.48 L (0.66-1.25) mg/dL Glucose 151 H 105 H (74-99) mg/dL Calcium 8.7 8.5 (8.4-10.2) mg/dL AST 34 23 (17-59) U/L ALT 21 16 (4-49) U/L Alkaline Phosphatase 98 88 (38-126) U/L Total Protein 6.2 L 5.1 L (6.3-8.2) g/dL Albumin 3.6 2.8 L (3.5-5.0) g/dL Current Medications Generic Name Dose Route Start Last Admin Trade Name Freq PRN Reason Stop Dose Admin Hydromorphone HCl 1 mg 09/09/24 23:22 Hydromorphone 0.5 Mg/0.5 Ml Syringe IVP Q3HR PRN Severe Pain (Scale 7 to 10) Morphine Sulfate 4 mg 09/09/24 23:22 Morphine Sulfate 4 Mg/Ml Syringe IV Q4HR PRN Severe Pain (Scale 7 to 10) Naloxone HCl 0.2 mg 09/09/24 23:22 Naloxone 0.4 Mg/Ml 1 Ml Vial IV Q2M PRN Opioid Reversal Ondansetron HCl 4 mg 09/09/24 23:22 09/10/24 08:57 Ondansetron 4 Mg/2 Ml Vial IVP 4 mg Q8HR PRN Administration Nausea And Vomiting Pantoprazole Sodium 40 mg 09/10/24 09:00 09/10/24 08:57 Pantoprazole 40 Mg/10 Ml Vial IV 40 mg DAILY GIRISH Administration Intake and Output 09/09/24 09/10/24 09/10/24 22:59 06:59 14:59 Output Total 500 Balance -500 Output: Urine 500 Other: Voiding Method Toilet Urinal # Voids 0 Weight 63.503 kg 55.1 kg 09/10/24 06:51 09/10/24 06:51
--- NOTE | 2024-09-10 16:39 | FL ---
EXAMINATION TYPE: FL UGI w small bowel DATE OF EXAM: 09/10/2024 COMPARISON: Correlation CT 07/29/2024 and 01/04/2024 CLINICAL INDICATION: Male, 68 years old with history of Recurrent nausea and vomiting; [facility], TECHNIQUE: An attempted double contrast upper GI study is performed with small bowel follow through. A total of 1 minute 45 seconds of fluoroscopic time was utilized during procedure and 33 images obta ined. Total dose area product (DAP) in uGy*m?, mGy*cm? (or similar): 175 mGycm2. FINDINGS: Electronic Wirer image of the abdomen shows nonobstructive bowel gas pattern. There is residual oral contrast material scattered throughout the nondistended colon with residual mild stool as well. A PEG tube is noted. Cholecystectomy clips. As requested by the patient's care team, oral contrast is administered through the patient's PEG tube . Approximately 3 large syringes in total were administered. Small amount of effervescent granules we re also administered. There appears to be a sliding small hiatal hernia and severe gastroesophageal reflux which limits the progression of contrast into the small bowel. Relative caliber narrowing at the distal third thoraci c esophagus could reflect the beginning of the thickened portion of the esophagus. Recurrent episodes of emesis ensue and the patient is unable to tolerate any further contrast. No jonathan abnormal filling defect identified within the stomach. There is the initial appearance of possible cut off at the third portion of the duodenum. Subsequent images show progression into the distal duodenum but with persistent relative segmental narrowing nieves ng the third portion. The patient is returned to their room and a 1 hour film shows some progressive opacification of a few left-sided jejunal loops. A single loop has begun to cross over the midline to the right side of the abdomen. IMPRESSION: 1. Oral contrast administered through patient's PEG tube. The exam is suboptimal as the patient exper ienced multiple episodes of emesis following the injections. A total of only 150 mL was administered. 2. There is a small hiatal hernia and very severe gastroesophageal reflux. When correlating with keya ent's CT, there is possibility of a partially slipped Frederick fundoplication wrap that should be corre lated clinically. Annular esophageal thickening seen on CT likely extends to the distal third portion where there may be a mild stricture. Correlate with direct visualization. A moderate to severe esoph agitis may be present. Neoplasm should be excluded. 3. There is possible paraduodenal/internal hernia on the patient's 07/29/2024 CT as the proximal jejun um appears to be located in the right side of the abdomen. The internal hernia appears to have resolv ed on the present study though there is persistent relative narrowing along the third portion of the duodenum. Could be due to residual, reactive inflammation. SMA syndrome possible but considered less likely. Surgical evaluation may be considered to exclude intermittent internal hernia. 4. Again, suboptimal as only a small amount of oral contrast could be tolerated. An abdominal radiogr aph can be taken in 2 hours to assess contrast progression. [facility], , 09/10/2024 4:31 PM
--- NOTE | 2024-09-10 18:41 | XR ---
EXAMINATION TYPE: XR abdomen 1V DATE OF EXAM: 09/10/2024 COMPARISON: Upper GI with small bowel from the same date, upper GI with esophagus and small bowel 08/04, upper GI with esophagus 08/05/2024, CT abdomen and pelvis 07/29/2024. HISTORY: Upper GI with small bowel from the same date TECHNIQUE: Single supine KUB image of the abdomen is obtained at 3 hours from initial small bowel fol low-through. FINDINGS: PEG tube identified. Residual contrast is identified within the stomach and extending into the proxim al esophagus. Contrast extends through the small bowel into the cecum. Residual contrast from prior e xam is identified within the colon and rectum. No dilated bowel identified. Multilevel degenerative c hanges of the visualized spine. IMPRESSION: 1. Enteric contrast reaches the cecum at 3 hour franck. No evidence for obstruction. 2. Small sliding type hiatal hernia with gastroesophageal reflux. [facility], , 09/10/2024 6:39 PM
[2024-09-11 00:48] LABS: Basophils # (A) 0.03 10*3/uL (0.00-0.10); Basophils % (A) 0.2 %; Eosinophils # (A) 0.32 10*3/uL (0.04-0.35); Eosinophils % (A) 2.6 %; HCT 32.9 % (39.6-50.0); HGB 11.2 g/dL (13.0-17.0); Lymphocytes # (A) 1.45 10*3/uL (0.90-5.00); Lymphocytes % (A) 11.6 %; MCH 31.2 pg (27.0-32.0); MCV 91.6 fL (80.0-97.0); Mean Platelet Volume 11.8 fL (9.5-12.2); Monocytes # (A) 0.92 10*3/uL (0.20-1.00); Monocytes % (A) 7.4 %; Neutrophils # (A) 9.44 10*3/uL (1.80-7.70); Neutrophils % (A) 75.5 %; Platelet Count 249 10*3/uL (140-440); RBC 3.59 10*6/uL (4.40-5.60); RDW 20.3 % (11.5-14.5)
[2024-09-11 05:13] LABS: Glucose,Whole Blood 119 mg/dL (70-110)
[2024-09-11] MEDS: PANTOPRAZOLE 40 MG/10 ML VIAL IV SCH (05:43)
[2024-09-11 06:43] LABS: Basophils # (A) 0.02 10*3/uL (0.00-0.10); Basophils % (A) 0.3 %; Eosinophils # (A) 0.03 10*3/uL (0.04-0.35); Eosinophils % (A) 0.4 %; HGB 12.4 g/dL (13.0-17.0); Lymphocytes # (A) 1.25 10*3/uL (0.90-5.00); Lymphocytes % (A) 15.7 %; MCHC 33.5 g/dL (32.0-37.0); MCV 92.5 fL (80.0-97.0); Mean Platelet Volume 11.7 fL (9.5-12.2); Monocytes % (A) 7.5 %; Neutrophils # (A) 5.95 10*3/uL (1.80-7.70); Neutrophils % (A) 74.8 %; Platelet Count 348 10*3/uL (140-440); RDW 20.4 % (11.5-14.5); WBC 7.95 10*3/uL (4.50-10.00)
[2024-09-11 07:06] LABS: African American GFR (CKD) >90 (>60 ml/min/1.73 sqM); Anion Gap 12 mmol/L; Blood Urea Nitrogen 25 mg/dL (9-20); Calcium 9.1 mg/dL (8.4-10.2); Carbon Dioxide 26 mmol/L (22-30); Chloride 103 mmol/L (98-107); Glucose 120 mg/dL (74-99); Non-African American GFR(CKD) >90 (>60 ml/min/1.73 sqM); Potassium 3.3 mmol/L (3.5-5.1); Sodium 141 mmol/L (137-145)
[2024-09-11] MEDS ORDERED: Potassium Replacement Protocol 1 EACH MISC MISCELLANE PRN (09:50)
[2024-09-11] MEDS ORDERED: IOPAMIDOL CONTRAST (ORAL USE) VIAL PO PRN (09:55)
[2024-09-11] MEDS: DEXTROSE 5%-0.9% NACL 1,000 ML IV SCH (10:09)
[2024-09-11] MEDS: METOCLOPRAMIDE 5 MG/ML 2 ML VIAL IVP PRN (10:09)
[2024-09-11] MEDS: POTASSIUM CHLORIDE 10 MEQ in WATER FOR INJECTION 1 100ML.BAG IVPB SCH (10:10)
--- NOTE | 2024-09-11 10:36 | P.PN ---
Subjective This is a pleasant 68 years old male who was recently discharged from this facility about 4 days ago for nausea vomiting and malnutrition status post PEG tube placement by surgery team. Once he been discharged he started having recurrent nausea vomiting again, he vomited 6 times since yesterday with no blood. Associated with epigastric pain and tenderness His troponin was elevated but EKG showing SVT. He has been evaluated by geodetic computator as well during last admission for elevated troponin. Currently denies chest pain or dyspnea. No specific urinary symptoms. No headache dizziness weakness or numbness He is pain mainly in the epigastric area about 9/10 felt like squeezing nonradiating with no precipitating or relieving factors. He states that the pain is similar to last time. He has no bowel movement. He is using the PEG tube at home. He got Zofran 4 mg and is requesting more medicine He is hemodynamically stable and afebrile He has unremarkable CBC, BMP, LFT. WBC is mildly elevated at 10.4 at 11. Lactic acid 4.6 came back to normal at 1.7. Troponin is elevated 0.065. KUB showing nonspecific gas bowel pattern. EKG showed SVT with a rate of [address] depression in V3-V5 Patient lying in bed with no dyspnea or chest pain He is vomiting of blood today. He still has nausea vomiting. He was on Zofran 8 mg we will going to add Reglan IV 5 and then 10 mg. hemoglobin stable at 12.4 with slight improvement. Vital stable. He is not on any blood thinners or aspirin. His on Protonix IV twice daily added today Also we added D5 normal saline Discussed the case with surgery team. CT of the abdomen pelvis with IV contrast is requested. Currently patient denies any abdominal pain or epigastric tenderness. Review of systems CONSTITUTIONAL: No fever, no malaise, no fatigue. . NEUROLOGICAL: No headaches, no weakness, no numbness. HEMATOLOGICAL: Denies any bleeding or petechiae. GENITOURINARY: Denies any burning micturition, frequency, or urgency. MUSCULOSKELETAL/RHEUMATOLOGICAL: Denies any joint pain, swelling, or any muscle pain. ENDOCRINE: Denies any polyuria or polydipsia. Active Medications Generic Name Dose Route Start Last Admin Trade Name Freq PRN Reason Stop Dose Admin Hydromorphone HCl 1 mg 09/09/24 23:22 Hydromorphone 0.5 Mg/0.5 Ml Syringe IVP Q3HR PRN Severe Pain (Scale 7 to 10) Dextrose/Sodium Chloride 1,000 mls @ 75 mls/hr 09/11/24 10:00 09/11/24 10:09 Dextrose 5%-Ns Iv Soln IV 75 mls/hr .[id number] GIRISH Administration Potassium Chloride 10 meq/ IV 100 mls @ 100 mls/hr 09/11/24 11:00 09/11/24 10:10 Solution IVPB 09/11/24 14:59 100 mls/hr Q1HR GIRISH Administration Protocol Iopamidol 30 ml 09/11/24 09:55 Iopamidol Contrast (Oral Use) Vial PO 09/12/24 09:[address] Scan Metoclopramide HCl 5 mg 09/11/24 09:49 09/11/24 10:09 Metoclopramide 5 Mg/Ml 2 Ml Vial IVP 5 mg Q6HR PRN Administration Nausea And Vomiting Miscellaneous Information 1 each 09/11/24 09:50 Potassium Replacement Protocol 1 Each Misc MISCELLANE DAILY PRN Per Protocol Protocol Morphine Sulfate 4 mg 09/09/24 23:22 Morphine Sulfate 4 Mg/Ml Syringe IV Q4HR PRN Severe Pain (Scale 7 to 10) Naloxone HCl 0.2 mg 09/09/24 23:22 Naloxone 0.4 Mg/Ml 1 Ml Vial IV Q2M PRN Opioid Reversal Ondansetron HCl 8 mg 09/10/24 11:18 09/11/24 05:43 Ondansetron 4 Mg/2 Ml Vial IVP 8 mg Q8HR PRN Administration Nausea And Vomiting Pantoprazole Sodium 40 mg 09/11/24 09:00 09/11/24 05:43 Pantoprazole 40 Mg/10 Ml Vial IV 40 mg BID GIRISH Administration Objective - Vital Signs Vital signs: Vital Signs Temp 98.4 F 09/11/24 08:07 Pulse 105 H 09/11/24 08:07 Resp 18 09/11/24 08:07 BP 113/76 09/11/24 08:07 Pulse Ox 98 09/11/24 08:07 FiO2 Intake & Output 09/10/24 09/11/24 09/11/24 18:59 06:59 18:59 Output Total 500 0 Balance -500 0 Weight 55.1 kg Output: Urine 500 0 Other: Voiding Method Toilet Urinal - Exam -GENERAL: The patient is alert and oriented x3, not in any acute distress. Well developed, well nourished. Thin built HEENT: Pupils are round and equally reacting to light. EOMI. No scleral icterus. No conjunctival pallor. Normocephalic, atraumatic. No pharyngeal erythema. No thyromegaly. CARDIOVASCULAR: S1 and S2 present. No murmurs, rubs, or gallops. PULMONARY: Chest is clear to auscultation, no wheezing , no crackles. -ABDOMEN: Soft, nontender, nondistended, normoactive bowel sounds. No palpable organomegaly. PEG tube is in place with no Abdominal tenderness or guarding MUSCULOSKELETAL: No joint swelling or deformity. EXTREMITIES: No cyanosis, clubbing, or pedal edema. NEUROLOGICAL: Gross neurological examination did not reveal any focal deficits. SKIN: No rashes. no petechiae. - Labs CBC & Chem 7: 09/11/24 06:19 09/11/24 06:19 Labs: Abnormal Lab Results - Last 24 Hours (Table) 09/11/24 09/11/24 09/11/24 Range/Units 00:23 05:12 06:19 WBC 12.50 H (4.50-10.00) 10*3/uL RBC 3.59 L 4.00 L (4.40-5.60) 10*6/uL Hgb 11.2 L 12.4 L (13.0-17.0) g/dL Hct 32.9 L 37.0 L (39.6-50.0) % Immature Gran # 0.34 H 0.10 H (0.00-0.04) 10*3/uL Neutrophils # 9.44 H (1.80-7.70) 10*3/uL Eosinophils # 0.03 L (0.04-0.35) 10*3/uL Potassium (3.5-5.1) mmol/L BUN (9-20) mg/dL Creatinine (0.66-1.25) mg/dL Glucose (74-99) mg/dL POC Glucose (mg/dL) 119 H (70-110) mg/dL 09/11/24 Range/Units 06:19 WBC (4.50-10.00) 10*3/uL RBC (4.40-5.60) 10*6/uL Hgb (13.0-17.0) g/dL Hct (39.6-50.0) % Immature Gran # (0.00-0.04) 10*3/uL Neutrophils # (1.80-7.70) 10*3/uL Eosinophils # (0.04-0.35) 10*3/uL Potassium 3.3 L (3.5-5.1) mmol/L BUN 25 H (9-20) mg/dL Creatinine 0.62 L (0.66-1.25) mg/dL Glucose 120 H (74-99) mg/dL POC Glucose (mg/dL) (70-110) mg/dL Assessment and Plan Assessment: Hematemesis Recurrent nausea vomiting, intractable requiring PEG tube placement during last admission Epigastric pain and tenderness could be secondary to gastritis Elevated troponin could be secondary to SVT related dehydration, evaluated by cardiology during last admission Severe calorie protein malnutrition Hypertension Hyperlipidemia Anxiety/depression, not on active issue - Distal esophagitis Hiatal hernia seen on recent EKG Plan: Add IV Protonix and IV fluids and monitor hemoglobin. Avoid heparin or NSAIDs Continues intake via PEG tube Surgical team consult Nutrition consult Continue with Zofran and if no benefit may add Phenergan this was discussed with the patient and he agrees Cardiology team consult Resume home medication Labs and medication were reviewed.. Continue same treatment. Continue with symptomatic treatment. Resume home medication. Monitor labs and vitals. DVT and GI prophylaxis. Further recommendations as per clinical course of the patient DVT prophylaxis: no Subcutaneous heparin. Continue with mechanical GI Prophylaxis: Protonix Prognosis is guarded
[2024-09-11 10:58] LABS: HCT 33.2 % (39.6-50.0); HGB 11.3 g/dL (13.0-17.0); MCH 31.3 pg (27.0-32.0); Mean Platelet Volume 11.5 fL (9.5-12.2); Platelet Count 331 10*3/uL (140-440); RBC 3.61 10*6/uL (4.40-5.60); RDW 20.4 % (11.5-14.5)
--- NOTE | 2024-09-11 11:48 | XR ---
EXAMINATION TYPE: XR KUB DATE OF EXAM: 09/11/2024 11:36 AM COMPARISON: None. CLINICAL INDICATION: Male, 68 years old with history of check location of barium, TECHNIQUE: XR KUB view(s) obtained. FINDINGS: There is a normal bowel gas pattern. Barium is present within the distal small bowel loops and within the colon. The majority of the contrast is within the hepatic flexure of the colon. Small amount of contrast may be within the descending colon region. There is some contrast within the stomach which may been placed through the PEG tube. Correlate with the history. Psoas margins are normal. No organomegaly is present. No mass effect is evident. IMPRESSION: 1. Contrast predominantly within the colon, especially at the hepatic flexure. [facility], , 09/11/2024 11:46 AM
[2024-09-11] MEDS: SODIUM CHLORIDE 0.9% 1,000 ML IV ONE (12:32)
--- NOTE | 2024-09-11 12:33 | P.CN ---
Psychiatric Consult - . Consult date: 09/11/24 Consult:: 09/11/24 11:27 IDENTIFYING DATA: This patient is a 68-year-old male , has a history of depression presented with intractable nausea vomiting REASON FOR REFERRAL: Psychiatry was consulted for depression HISTORY OF PRESENT ILLNESS: The patient presented to the hospital on 09/09 for intractable nausea and vomiting. Patient apparently is postop feeding tube, recently released from the hospital. Exercise Physiologist Certified spoke with patient's nurse at the bedside, she claims that patient has been irritable, not endorsing any thoughts of hurting self or others. Has not been able to tolerate p.o medications or food. Patient was seen at the bedside agreeable to speak initially however was somewhat irritable with clinical writer. He only answered a few questions claiming that he is feeling frustrated with his nausea vomiting and that he is not improving. He is denying any depression or anxiety at this time. Claims that he is not able to eat. He did express frustration and began vomiting profusely dark red blood it appears, he told clinical writer to leave the room and leave him alone. At this time patient denies any suicidal or homical ideations, intent or plan. Patient denies any auditory, visual hallucinations and does not endorse any paranoia or delusions. patient was irritable with clinical writer and dismissed him from the room. PAST PSYCHIATRIC HISTORY: Patient has a a history of depression. Patient is currently on Zoloft 25 mg daily and also BuSpar 7.5 mg twice daily for anxiety. Exercise Physiologist Certified was unable to gather further psychiatric history due to patient's irritability and nausea vomiting. Past Medical History: Asthma, Coronary Artery Disease (CAD), Chest Pain / Angina, CVA/TIA, GERD/Reflux, Hyperlipidemia, Hypertension, Pneumonia, Rheumatoid Arthritis (RA) Additional Past Medical History / Comment(s): MIGRAINES, HEART MURMUR, hx HIATAL HERNIA, ANEMIA, one dr told him he had a stroke at one time-no effects, varicose veins, history of incarcerated per esophageal hernia, status post gage otic-assisted paraesophageal hernia repair and Frederick fundoplication on 04/12/2022. History of Any Multi-Drug Resistant Organisms: None Reported Past Surgical History: Cholecystectomy, Heart Catheterization, Hernia Repair, Orthopedic Surgery Additional Past Surgical History / Comment(s): Lt achilles tendon,RT SHOULDER surgery, RT ACHILLES TENDON reattached, HEMORRHOIDECTOMY, 13 FATTY TUMORS removed. left hand index finger surgery after injury, EGD WITH DILATION, paraesophageal hernia repair with Frederick fundoplication on 04/12/2022. New feeding tube September 2024. PEG tube Past Anesthesia/Blood Transfusion Reactions: No Reported Reaction Additional Past Anesthesia/Blood Transfusion Reaction / Comment(s): no hx blood transfusion Past Psychological History: Anxiety, Depression Smoking Status: Former smoker Past Alcohol Use History: None Reported Past Drug Use History: Marijuana ALLERGIES: as per EMR. CHEMICAL DEPENDENCY HISTORY: Exercise Physiologist Certified was unable to ask questions about substance use due to patient being sick and vomiting and also irritability FAMILY PSYCHIATRIC/SUBSTANCE USE HISTORY: Unable to gather SOCIAL HISTORY: Unable to gather significant social history due to patient's condition MENTAL STATUS EXAM: General Appearance: Patient appears to be thin, appears ill, vomiting and frustrated during interaction. Patient appears to have poor hygiene and grooming wearing hospital gown with poor eye contact. Behavior: [Patient is calmly lying in bed, he appears to be fairly ill, irritable with clinical writer and dismissive Speech: Patient's speech is fluent and nonpressured. Irritable tone, concrete Mood/Affect: Patient reports their mood is "ok, just not feeling well", affect is congruent and irritable Suicidality/Homicidality: Patient denies having any suicidal or homicidal ideation intent or plan. Perceptions: Patient denies any visual hallucinations and denies any auditory hallucinations Though content/process: Patient was fairly concrete, poverty of content. Focused on his nausea vomiting and symptoms Memory and concentration: Unable to assess Judgment and insight: Poor IMPRESSIONS: Depressive disorder unspecified PLAN: -At this time patient DOES NOT meet criteria for inpatient psychiatric admission. -Would recommend the following medication changes/additions: At this time we will hold p.o. medications, would not suggest restarting Zoloft as SSRIs can aggravate patient's GI condition and possibly nausea or vomiting. At a later time once patient is more stable can try Wellbutrin low-dose and follow-up with outpatient psychiatry. Added Ativan 1 mg every 6 hours as needed IV for anxiety, this will also help a bit with nausea -Continue thorough medical workup for patient's underlying cause of nausea vomiting as per primary team -youth support worker to provide patient with outpatient mental health/psychiatry resources for appropriate follow up upon discharge -Communicated plan to patient's nurse -Psychiatry will sign off at this time -Please contact with any questions. 09/11/24 12:27
--- NOTE | 2024-09-11 13:13 | P.PN ---
Subjective Progress Note Date: 09/11/24 SURGICAL PROGRESS NOTE CHIEF COMPLAINT: Recurrent nausea and vomiting HISTORY OF PRESENT ILLNESS: Patient was vomiting bright red blood with clots x 3 episodes. And now the emesis is more coffee-ground looking this afternoon. Patient does complain of some discomfort around the PEG tube site. Upper GI reports suboptimal study patient had multiple episodes of emesis during the test. They noted a small hiatal hernia with very severe GERD. Possibility of partially slipped Niesen fundoplication wrap. Annular esophageal thickening seen on CT likely extends to the distal third portion where there may be a mild stricture. Moderate to severe esophagitis may be present. Neoplasm should be excluded. Possible periduodenal/internal hernia patient 07/29/2024 CT at proximal jejunum appears to be located in the right side of the abdomen. The internal hernia appears to have resolved on present study though there is persistent relative narrowing along the third portion of the duodenum. This could be due to residual reactive inflammation. SMA syndrome possible considered less likely. Surgical evaluation may be considered to exclude intermittent internal hernia. KUB x-ray reports contrast predominantly within the colon at the hepatic flexure. Afebrile. Mildly tachycardic. WBC 6.40 Hgb 12.4 with repeat 11.3 potassium 3.3 PHYSICAL EXAM: VITAL SIGNS: Reviewed. GENERAL: Well-developed in no acute distress. ABDOMEN: Soft. Nondistended. Nontender. PEG tube site clean dry and intact. NEUROLOGIC: Alert and oriented. Cranial nerves II through XII grossly intact. ASSESSMENT: 1. Upper GI bleed with bright red blood and coffee-ground emesis 2. Internal hernia noted on upper GI but contrast does reach the colon on KUB done today 3. Intractable nausea and vomiting 4. History of esophageal dysmotility disorder 5. Hiatal hernia 6. Esophagitis PLAN: - Patient scheduled for EGD tomorrow for evaluation of GI bleed - Continue to monitor hemoglobin - Continue to monitor for any signs or symptoms of bleeding - Continue PPI - Continue antiemetics - Psychiatry recommendations appreciated regarding patient's depression - Potassium being replaced -1 L fluid bolus ordered for tachycardia - Add antibiotics for empiric coverage -Agree with holding Lovenox Physician Bender Machine Operator note has been reviewed by physician. Signing provider agrees with the documented findings, assessment, and plan of care. Objective - Vital Signs Vital signs: Vital Signs Temp 97.9 F 09/11/24 12:03 Pulse 85 09/11/24 12:03 Resp 16 09/11/24 12:03 BP 134/90 09/11/24 12:03 Pulse Ox 98 09/11/24 12:03 FiO2 Intake & Output 09/10/24 09/11/24 09/11/24 18:59 06:59 18:59 Intake Total 0 Output Total 500 0 Balance -500 0 0 Weight 55.1 kg Intake: Oral 0 Output: Urine 500 0 Other: Voiding Method Toilet Toilet Urinal Urinal - Labs CBC & Chem 7: 09/11/24 10:41 09/11/24 06:19 Labs: Abnormal Lab Results - Last 24 Hours (Table) 09/11/24 09/11/24 09/11/24 Range/Units 00:23 05:12 06:19 WBC 12.50 H (4.50-10.00) 10*3/uL RBC 3.59 L 4.00 L (4.40-5.60) 10*6/uL Hgb 11.2 L 12.4 L (13.0-17.0) g/dL Hct 32.9 L 37.0 L (39.6-50.0) % Immature Gran # 0.34 H 0.10 H (0.00-0.04) 10*3/uL Neutrophils # 9.44 H (1.80-7.70) 10*3/uL Eosinophils # 0.03 L (0.04-0.35) 10*3/uL Potassium (3.5-5.1) mmol/L BUN (9-20) mg/dL Creatinine (0.66-1.25) mg/dL Glucose (74-99) mg/dL POC Glucose (mg/dL) 119 H (70-110) mg/dL 09/11/24 09/11/24 Range/Units 06:19 10:41 WBC (4.50-10.00) 10*3/uL RBC 3.61 L (4.40-5.60) 10*6/uL Hgb 11.3 L (13.0-17.0) g/dL Hct 33.2 L (39.6-50.0) % Immature Gran # (0.00-0.04) 10*3/uL Neutrophils # (1.80-7.70) 10*3/uL Eosinophils # (0.04-0.35) 10*3/uL Potassium 3.3 L (3.5-5.1) mmol/L BUN 25 H (9-20) mg/dL Creatinine 0.62 L (0.66-1.25) mg/dL Glucose 120 H (74-99) mg/dL POC Glucose (mg/dL) (70-110) mg/dL
[2024-09-11] MEDS: PIPERACILLIN-TAZOBACTAM 3.375 GM in SODIUM CHLORIDE 0.9% 100 ML IVPB SCH (16:26)
[2024-09-11] MEDS: LORazepam 1 MG/0.5 ML VIAL IV PRN (17:05)
--- NOTE | 2024-09-11 17:31 | XR ---
EXAMINATION TYPE: XR chest 1V DATE OF EXAM: 09/11/2024 5:11 PM COMPARISON: 07/29/2024. CLINICAL INDICATION: Male, 68 years old with history of NG tube placement; [facility] TECHNIQUE: XR chest 1V Frontal view of the chest. FINDINGS: Lungs/Pleura: There is no evidence of pleural effusion, focal consolidation, or pneumothorax. Pulmonary vascularity: Unremarkable. Heart/mediastinum: Cardiomediastinal silhouette is unremarkable. Musculoskeletal: No acute osseous pathology. Other findings: None Lines/Tubes: Nasogastric tube with its distal tip coiling superiorly in abnormal position. IMPRESSION: Nasogastric tube is coiled up at the gastric esophageal junction. When comparing to CT this is felt t o be in abnormal position. [facility], , 09/11/2024 5:29 PM
[2024-09-12] MEDS: ONDANSETRON 4 MG/2 ML VIAL IVP PRN (03:05)
[2024-09-12 09:10] LABS: African American GFR (CKD) >90 (>60 ml/min/1.73 sqM); Anion Gap 6 mmol/L; Blood Urea Nitrogen 18 mg/dL (9-20); Calcium 8.5 mg/dL (8.4-10.2); Carbon Dioxide 27 mmol/L (22-30); Chloride 110 mmol/L (98-107); Glucose 130 mg/dL (74-99); Non-African American GFR(CKD) >90 (>60 ml/min/1.73 sqM); Sodium 143 mmol/L (137-145)
[2024-09-12 09:23] LABS: Potassium 3.7 mmol/L (3.5-5.1)
--- NOTE | 2024-09-12 09:48 | P.PN ---
Subjective This is a pleasant 68 years old male who was recently discharged from this facility about 4 days ago for nausea vomiting and malnutrition status post PEG tube placement by surgery team. Once he been discharged he started having recurrent nausea vomiting again, he vomited 6 times since yesterday with no blood. Associated with epigastric pain and tenderness His troponin was elevated but EKG showing SVT. He has been evaluated by chief controller as well during last admission for elevated troponin. Currently denies chest pain or dyspnea. No specific urinary symptoms. No headache dizziness weakness or numbness He is pain mainly in the epigastric area about 9/10 felt like squeezing nonradiating with no precipitating or relieving factors. He states that the pain is similar to last time. He has no bowel movement. He is using the PEG tube at home. He got Zofran 4 mg and is requesting more medicine He is hemodynamically stable and afebrile He has unremarkable CBC, BMP, LFT. WBC is mildly elevated at 10.4 at 11. Lactic acid 4.6 came back to normal at 1.7. Troponin is elevated 0.065. KUB showing nonspecific gas bowel pattern. EKG showed SVT with a rate of [address] depression in V3-V5 Patient lying in bed with no dyspnea or chest pain He is vomiting of blood today. He still has nausea vomiting. He was on Zofran 8 mg we will going to add Reglan IV 5 and then 10 mg. hemoglobin stable at 12.4 with slight improvement. Vital stable. He is not on any blood thinners or aspirin. His on Protonix IV twice daily added today Also we added D5 normal saline Discussed the case with surgery team. CT of the abdomen pelvis with IV contrast is requested. Currently patient denies any abdominal pain or epigastric tenderness. 4/10 No vomiting today, looks tired No abdominal pain or tenderness PEG tube is in place and feeding tube on hold He still getting IV fluids and Zosyn Plan for EGD today with surgery team given his hematemesis yesterday. Hemoglobin was stable yesterday at 11.3 Monitor hemoglobin Continue with Protonix He is getting Reglan [id number] which prevent him from vomiting Review of systems CONSTITUTIONAL: No fever, no malaise, no fatigue. . NEUROLOGICAL: No headaches, no weakness, no numbness. HEMATOLOGICAL: Denies any bleeding or petechiae. GENITOURINARY: Denies any burning micturition, frequency, or urgency. MUSCULOSKELETAL/RHEUMATOLOGICAL: Denies any joint pain, swelling, or any muscle pain. ENDOCRINE: Denies any polyuria or polydipsia. Active Medications Generic Name Dose Route Start Last Admin Trade Name Freq PRN Reason Stop Dose Admin Hydromorphone HCl 1 mg 09/09/24 23:22 Hydromorphone 0.5 Mg/0.5 Ml Syringe IVP Q3HR PRN Severe Pain (Scale 7 to 10) Dextrose/Sodium Chloride 1,000 mls @ 75 mls/hr 09/11/24 10:00 09/11/24 22:33 Dextrose 5%-Ns Iv Soln IV 75 mls/hr .[id number] [facility] Administration Piperacillin Sod/Tazobactam 100 mls @ 25 mls/hr 09/11/24 12:00 09/12/24 03:05 Sod 3.375 gm/ Sodium Chloride IVPB 25 mls/hr Q8H [facility] Administration Protocol Lorazepam 1 mg 09/11/24 12:26 09/11/24 17:05 Lorazepam 1 Mg/0.5 Ml Vial IV 1 mg Q6HR PRN Administration Anxiety Metoclopramide HCl 5 mg 09/11/24 09:49 09/12/24 05:00 Metoclopramide 5 Mg/Ml 2 Ml Vial IVP 5 mg Q6HR PRN Administration Nausea And Vomiting Miscellaneous Information 1 each 09/11/24 09:50 Potassium Replacement Protocol 1 Each Misc MISCELLANE DAILY PRN Per Protocol Protocol Morphine Sulfate 4 mg 09/09/24 23:22 Morphine Sulfate 4 Mg/Ml Syringe IV Q4HR PRN Severe Pain (Scale 7 to 10) Naloxone HCl 0.2 mg 09/09/24 23:22 Naloxone 0.4 Mg/Ml 1 Ml Vial IV Q2M PRN Opioid Reversal Ondansetron HCl 8 mg 09/11/24 11:10 09/12/24 09:17 Ondansetron 4 Mg/2 Ml Vial IVP 8 mg Q6HR PRN Administration Nausea And Vomiting Pantoprazole Sodium 40 mg 09/11/24 09:00 09/12/24 09:17 Pantoprazole 40 Mg/10 Ml Vial IV 40 mg BID [facility] Administration Objective - Vital Signs Vital signs: Vital Signs Temp 97.5 F L 09/12/24 03:34 Pulse 88 09/12/24 03:34 Resp 18 09/12/24 03:34 BP 120/75 09/12/24 03:34 Pulse Ox 99 09/12/24 03:34 FiO2 Intake & Output 09/11/24 09/12/24 09/12/24 18:59 06:59 18:59 Intake Total 800 600 Output Total 1000 225 Balance -200 375 Weight 55.5 kg Intake: Intake, IV Titration 800 600 Amount Dextrose 5%-0.9% NaCl 1, 500 300 000 ml @ 75 mls/hr IV . [id number] [facility] Rx#:[id number] Piperacillin-Tazobactam 3 100 100 .375 gm In Sodium Chloride 0.9% 100 ml @ 25 mls/hr IVPB Q8H [facility] Rx#: [id number] Potassium Chloride 10 meq 200 200 In Water For Injection 1 100ml.bag @ 100 mls/hr IVPB Q1HR [facility] Rx#: [id number] Oral 0 Output: Urine 1000 225 Other: Voiding Method Toilet Toilet Urinal Urinal # Voids 1 - Exam -GENERAL: The patient is alert and oriented x3, not in any acute distress. Well developed, well nourished. Thin built HEENT: Pupils are round and equally reacting to light. EOMI. No scleral icterus. No conjunctival pallor. Normocephalic, atraumatic. No pharyngeal erythema. No thyromegaly. CARDIOVASCULAR: S1 and S2 present. No murmurs, rubs, or gallops. PULMONARY: Chest is clear to auscultation, no wheezing , no crackles. -ABDOMEN: Soft, nontender, nondistended, normoactive bowel sounds. No palpable organomegaly. PEG tube is in place with no Abdominal tenderness or guarding MUSCULOSKELETAL: No joint swelling or deformity. EXTREMITIES: No cyanosis, clubbing, or pedal edema. NEUROLOGICAL: Gross neurological examination did not reveal any focal deficits. SKIN: No rashes. no petechiae. - Labs CBC & Chem 7: 09/11/24 10:41 09/12/24 08:30 Labs: Abnormal Lab Results - Last 24 Hours (Table) 09/11/24 09/12/24 Range/Units 10:41 08:30 RBC 3.61 L (4.40-5.60) 10*6/uL Hgb 11.3 L (13.0-17.0) g/dL Hct 33.2 L (39.6-50.0) % Chloride 110 H (98-107) mmol/L Creatinine 0.64 L (0.66-1.25) mg/dL Glucose 130 H (74-99) mg/dL Assessment and Plan Assessment: Hematemesis Recurrent nausea vomiting, intractable requiring PEG tube placement during last admission Epigastric pain and tenderness could be secondary to gastritis Elevated troponin could be secondary to SVT related dehydration, evaluated by cardiology during last admission Severe calorie protein malnutrition Hypertension Hyperlipidemia Anxiety/depression, not on active issue - Distal esophagitis Hiatal hernia seen on recent EKG Plan: Add IV Protonix and IV fluids and monitor hemoglobin. Avoid heparin or NSAIDs Continues intake via PEG tube, currently on hold Surgical team consult with plan for EGD on 09/12 Nutrition consult Continue with Zofran and Reglan which she was getting [id number] Cardiology team consult Resume home medication Labs and medication were reviewed.. Continue same treatment. Continue with symptomatic treatment. Resume home medication. Monitor labs and vitals. DVT and GI prophylaxis. Further recommendations as per clinical course of the patient DVT prophylaxis: no Subcutaneous heparin. Continue with mechanical GI Prophylaxis: Protonix Prognosis is guarded
[2024-09-12] MEDS ORDERED: SUCCINYLCHOLINE CHLORIDE 200 MG/10 ML VIAL IV ONE (10:01)
[2024-09-12] MEDS ORDERED: PROPOFOL 10 MG/ML 20 ML VIAL IV ONE (10:01)
[2024-09-12] MEDS: SODIUM CHLORIDE 0.9% 500 ML 500 ML IV ONE (10:21)
--- NOTE | 2024-09-12 10:43 | P.OP ---
Date of Procedure: 09/12/24 Preoperative Diagnosis: Nausea vomiting GI bleed Postoperative Diagnosis: Nausea vomiting Procedure(s) Performed: EGD Anesthesia: MAC Surgeon: Rickie Pavon Pathology: none sent Condition: stable Disposition: PACU Description of Procedure: The patient was placed on the lateral position he received IV sedation. Was placed oropharynx. The first and second portion normal. There is no evidence of any gastric L obstruction. The scope was retroflexed the PEG tube was in position. There were a few clots around the PEG tube. There was no active bleeding. At the GE junction there was a small hiatal hernia. The distal esophagus appeared normal. Proximal esophagus provokers scope the patient. There is no evidence of any gastric inlet or gastric outlet obstruction. It is presumed the patient may have had bleeding from the PEG tube site.
[2024-09-12] MEDS ORDERED: LIDOCAINE 1% (10MG/ML) FOR IV START INTRADERMA PRN (11:23)
[2024-09-12] MEDS: LACTATED RINGERS 1,000 ML IV SCH (11:41)
--- NOTE | 2024-09-12 12:43 | P.PN ---
Subjective Progress Note Date: 09/12/24 SURGICAL PROGRESS NOTE CHIEF COMPLAINT: Recurrent nausea and vomiting HISTORY OF PRESENT ILLNESS: Patient status post EGD. Results reported no evidence of any gastric inlet or gastric outlet obstruction. Presumed bleeding from the PEG tube site. Vital stable. Hemoglobin 11.3 PHYSICAL EXAM: VITAL SIGNS: Reviewed. GENERAL: Well-developed in no acute distress. ABDOMEN: Soft. Nondistended. Nontender. PEG tube site clean dry and intact. NEUROLOGIC: Alert and oriented. Cranial nerves II through XII grossly intact. ASSESSMENT: 1. Upper GI bleed with bright red blood and coffee-ground emesis 2. Internal hernia noted on upper GI but contrast does reach the colon on KUB done today 3. Intractable nausea and vomiting 4. History of esophageal dysmotility disorder 5. Hiatal hernia 6. Esophagitis PLAN: - Consult dietitian to initiate tube feeds. Dietitian to titrate tube feeds - In regards to patient's internal hernia recommend a repeat CT scan of abdomen and pelvis once contrast has cleared from colon - Continue PPI - Continue antiemetics Physician Damage Adjuster note has been reviewed by physician. Signing provider agrees with the documented findings, assessment, and plan of care. Objective - Vital Signs Vital signs: Vital Signs Temp 97 F L 09/12/24 10:37 Pulse 74 09/12/24 11:07 Resp 16 09/12/24 11:07 BP 132/78 09/12/24 11:07 Pulse Ox 95 09/12/24 11:07 FiO2 Intake & Output 09/11/24 09/12/24 09/12/24 18:59 06:59 18:59 Intake Total 800 600 300 Output Total 1000 225 Balance -200 375 300 Weight 55.5 kg Intake: IV 300 Intake, IV Titration 800 600 Amount Dextrose 5%-0.9% NaCl 1, 500 300 000 ml @ 75 mls/hr IV . [id number] [facility] Rx#:[id number] Piperacillin-Tazobactam 3 100 100 .375 gm In Sodium Chloride 0.9% 100 ml @ 25 mls/hr IVPB Q8H [facility] Rx#: [id number] Potassium Chloride 10 meq 200 200 In Water For Injection 1 100ml.bag @ 100 mls/hr IVPB Q1HR [facility] Rx#: [id number] Oral 0 Output: Urine 1000 225 Other: Voiding Method Toilet Toilet Toilet Urinal Urinal Urinal # Voids 1 - Labs CBC & Chem 7: 09/11/24 10:41 09/12/24 08:30 Labs: Abnormal Lab Results - Last 24 Hours (Table) 09/12/24 Range/Units 08:30 Chloride 110 H (98-107) mmol/L Creatinine 0.64 L (0.66-1.25) mg/dL Glucose 130 H (74-99) mg/dL
[2024-09-12 12:56] LABS: HCT 29.1 % (39.6-50.0); HGB 10.4 g/dL (13.0-17.0); MCH 31.6 pg (27.0-32.0); MCHC 35.7 g/dL (32.0-37.0); MCV 88.4 fL (80.0-97.0); Platelet Count 203 10*3/uL (140-440); RBC 3.29 10*6/uL (4.40-5.60); WBC 9.44 10*3/uL (4.50-10.00)
[2024-09-12 15:32] LABS: Albumin 2.4 g/dL (3.5-5.0); Magnesium 1.7 mg/dL (1.6-2.3)
--- NOTE | 2024-09-12 17:15 | XR ---
EXAMINATION TYPE: XR chest 1V confirm line plcmt DATE OF EXAM: 09/12/2024 4:52 PM COMPARISON: Chest radiographs from 09/11/2024. CLINICAL INDICATION: Male, 68 years old with history of PICC line placement; [facility] TECHNIQUE: XR chest 1V confirm line plcmt Frontal view of the chest. FINDINGS: Lungs/Pleura: There is flattening of the diaphragm with increased lucency of the lungs. No evidence o f pneumothorax, pleural effusion or focal consolidation. Pulmonary vascularity: Unremarkable. Heart/mediastinum: Cardiomediastinal silhouette is unremarkable. Musculoskeletal: No acute osseous pathology. Other findings: None Lines/Tubes: Right-sided PICC line with distal tip at the cavoatrial junction. IMPRESSION: 1. Right PICC in appropriate position. 2. No acute cardiopulmonary disease process. 3. COPD changes. [facility], , 09/12/2024 5:13 PM
[2024-09-12] MEDS: MVI, ADULT NO.4 WITH VIT K 10 ML, TRACE (CONC-1ML/DOSE) 1 ML in AMINO ACID 5%-D20W+LYTE... IV SCH (17:20)
[2024-09-12 17:27] LABS: Glucose,Whole Blood 141 mg/dL (70-110)
[2024-09-12] MEDS: MORPHINE SULFATE 4 MG/ML SYRINGE IV PRN (19:42)
[2024-09-12 23:49] LABS: Glucose,Whole Blood 172 mg/dL (70-110)
[2024-09-13 05:54] LABS: Glucose,Whole Blood 180 mg/dL (70-110)
[2024-09-13 07:22] LABS: Ionized Calcium 4.3 mg/dL (4.5-5.3)
[2024-09-13 07:57] LABS: African American GFR (CKD) >90 (>60 ml/min/1.73 sqM); Anion Gap 7 mmol/L; Blood Urea Nitrogen 9 mg/dL (9-20); Calcium 8.2 mg/dL (8.4-10.2); Carbon Dioxide 30 mmol/L (22-30); Chloride 107 mmol/L (98-107); Glucose 159 mg/dL (74-99); Magnesium 1.7 mg/dL (1.6-2.3); Non-African American GFR(CKD) >90 (>60 ml/min/1.73 sqM); Phosphorus 2.9 mg/dL (2.5-4.5); Sodium 144 mmol/L (137-145)
[2024-09-13 08:01] LABS: Potassium 2.7 mmol/L (3.5-5.1)
[2024-09-13] MEDS: HYDROmorphone 0.5 MG/0.5 ML SYRINGE IVP PRN (08:05)
[2024-09-13 09:17] LABS: Basophils # (A) 0.05 10*3/uL (0.00-0.10); Basophils % (A) 0.6 %; Eosinophils # (A) 0.16 10*3/uL (0.04-0.35); Eosinophils % (A) 1.8 %; HGB 9.9 g/dL (13.0-17.0); Lymphocytes # (A) 0.69 10*3/uL (0.90-5.00); Lymphocytes % (A) 7.9 %; Mean Platelet Volume 12.4 fL (9.5-12.2); Monocytes # (A) 0.37 10*3/uL (0.20-1.00); Monocytes % (A) 4.2 %; Neutrophils # (A) 7.38 10*3/uL (1.80-7.70); Neutrophils % (A) 84.6 %; Platelet Count 193 10*3/uL (140-440); RBC 3.19 10*6/uL (4.40-5.60); RDW 20.2 % (11.5-14.5); WBC 8.73 10*3/uL (4.50-10.00)
[2024-09-13] MEDS: POTASSIUM CHLORIDE 20 MEQ in WATER FOR INJECTION 1 100ML.BAG IVPB SCH (09:53)
[2024-09-13 11:48] LABS: Glucose,Whole Blood 181 mg/dL (70-110)
[2024-09-13] MEDS ORDERED: DEXTROSE 50% SYRINGE 50 ML IVP PRN (12:33)
[2024-09-13] MEDS: INSULIN LISPRO (HumaLOG) 100 UNIT/ML 10 mL VL SQ SCH (13:10)
[2024-09-13] MEDS: FAT EMULSION 20% 250 ML in EMPTY BAG 1 BAG IV SCH (13:10)
--- NOTE | 2024-09-13 13:31 | P.PN ---
Subjective Progress Note Date: 09/13/24 SURGICAL PROGRESS NOTE CHIEF COMPLAINT: Recurrent nausea and vomiting HISTORY OF PRESENT ILLNESS: Patient status post EGD. Results reported no evidence of any gastric inlet or gastric outlet obstruction. Presumed bleeding from the PEG tube site. Patient's PEG tube is to drainage. Output is bilious i n color. Patient sitting at bedside chair. Pain controlled. Afebrile. WBC 8.73 Hgb 9.9 potassium 2.7. Patient started on TPN for nutrition support PHYSICAL EXAM: VITAL SIGNS: Reviewed. GENERAL: Well-developed in no acute distress. ABDOMEN: Soft. Nondistended. Nontender. PEG tube site clean dry and intact. NEUROLOGIC: Alert and oriented. Cranial nerves II through XII grossly intact. ASSESSMENT: 1. Upper GI bleed with bright red blood and coffee-ground emesis. Presumed bleeding from the PEG tube site. now resolved 2. Intermittent internal hernia 3. Intractable nausea and vomiting 4. History of esophageal dysmotility disorder 5. Hiatal hernia 6. Esophagitis 7. Severe protein calorie malnutrition PLAN: - Continue to hold tube feedings - Keep PEG tube to drainage - Continue TPN for nutrition support - In regards to patient's intermittent internal hernia recommend a repeat CT scan of abdomen and pelvis on Monday. Surgery will be planned on , 09/19/[address] Pavon depending on CAT scan results - Dr. Pavon will be out of town and will return on . Dr. Lovett will be covering - Continue PPI - Continue antiemetics Physician Addresser note has been reviewed by physician. Signing provider agrees with the documented findings, assessment, and plan of care. Objective - Vital Signs Vital signs: Vital Signs Temp 97.5 F L 09/13/24 11:42 Pulse 95 09/13/24 11:42 Resp 16 09/13/24 11:42 BP 119/78 09/13/24 11:42 Pulse Ox 98 09/13/24 11:42 FiO2 Intake & Output 09/12/24 09/13/24 09/13/24 18:59 06:59 18:59 Intake Total 300 Output Total 1000 Balance 300 -1000 Weight 55.5 kg 55.5 kg Intake: IV 300 Output: Urine 1000 Other: Voiding Method Toilet Toilet Toilet Urinal Urinal Urinal - Labs CBC & Chem 7: 09/13/24 08:00 09/13/24 06:40 Labs: Abnormal Lab Results - Last 24 Hours (Table) 09/12/24 09/12/24 09/12/24 Range/Units 12:41 15:05 17:25 RBC 3.29 L (4.40-5.60) 10*6/uL Hgb 10.4 L (13.0-17.0) g/dL Hct 29.1 L (39.6-50.0) % MPV (9.5-12.2) fL Immature Gran # (0.00-0.04) 10*3/uL Lymphocytes # (0.90-5.00) 10*3/uL Immature Plt Fraction (1.1-6.1) % Potassium (3.5-5.1) mmol/L Creatinine (0.66-1.25) mg/dL Glucose (74-99) mg/dL POC Glucose (mg/dL) 141 H (70-110) mg/dL Calcium (8.4-10.2) mg/dL Ionized Calcium Chago (4.5-5.3) mg/dL Albumin 2.4 L (3.5-5.0) g/dL 09/12/24 09/13/24 09/13/24 Range/Units 23:47 05:53 06:40 RBC (4.40-5.60) 10*6/uL Hgb (13.0-17.0) g/dL Hct (39.6-50.0) % MPV (9.5-12.2) fL Immature Gran # (0.00-0.04) 10*3/uL Lymphocytes # (0.90-5.00) 10*3/uL Immature Plt Fraction (1.1-6.1) % Potassium 2.7 L* (3.5-5.1) mmol/L Creatinine 0.48 L (0.66-1.25) mg/dL Glucose 159 H (74-99) mg/dL POC Glucose (mg/dL) 172 H 180 H (70-110) mg/dL Calcium 8.2 L (8.4-10.2) mg/dL Ionized Calcium Chago 4.3 L (4.5-5.3) mg/dL Albumin (3.5-5.0) g/dL 09/13/24 09/13/24 Range/Units 08:00 11:46 RBC 3.19 L (4.40-5.60) 10*6/uL Hgb 9.9 L (13.0-17.0) g/dL Hct 30.0 L (39.6-50.0) % MPV 12.4 H (9.5-12.2) fL Immature Gran # 0.08 H (0.00-0.04) 10*3/uL Lymphocytes # 0.69 L (0.90-5.00) 10*3/uL Immature Plt Fraction 10.0 H (1.1-6.1) % Potassium (3.5-5.1) mmol/L Creatinine (0.66-1.25) mg/dL Glucose (74-99) mg/dL POC Glucose (mg/dL) 181 H (70-110) mg/dL Calcium (8.4-10.2) mg/dL Ionized Calcium Chago (4.5-5.3) mg/dL Albumin (3.5-5.0) g/dL
[2024-09-13 17:32] LABS: Glucose,Whole Blood 115 mg/dL (70-110)
[2024-09-14 00:17] LABS: Glucose,Whole Blood 160 mg/dL (70-110)
[2024-09-14 06:05] LABS: Glucose,Whole Blood 153 mg/dL (70-110)
[2024-09-14 08:18] LABS: African American GFR (CKD) >90 (>60 ml/min/1.73 sqM); Anion Gap 4 mmol/L; Blood Urea Nitrogen 6 mg/dL (9-20); Calcium 7.6 mg/dL (8.4-10.2); Carbon Dioxide 30 mmol/L (22-30); Chloride 104 mmol/L (98-107); Glucose 136 mg/dL (74-99); Magnesium 1.5 mg/dL (1.6-2.3); Non-African American GFR(CKD) >90 (>60 ml/min/1.73 sqM); Phosphorus 3.1 mg/dL (2.5-4.5); Potassium 2.9 mmol/L (3.5-5.1); Sodium 138 mmol/L (137-145)
--- NOTE | 2024-09-14 10:18 | P.PN ---
Subjective Progress Note Date: 09/14/24 Principal diagnosis: Intractable vomiting Patient did not have any vomiting overnight. Hemoglobin 9.9. Patient had previous bleeding although sounds more related to esophageal source of bleeding as the PEG tube output was bilious per patient and what I can see in the charting. Remains on TPN. Denies pain. Objective - Vital Signs Vital signs: Vital Signs Temp 97.4 F L 09/14/24 08:00 Pulse 82 09/14/24 08:00 Resp 16 09/14/24 08:00 BP 134/86 09/14/24 08:00 Pulse Ox 98 09/14/24 08:00 FiO2 Intake & Output 09/13/24 09/14/24 09/14/24 18:59 06:59 18:59 Intake Total 727.5 Output Total 300 900 Balance 427.5 -900 Weight 55.5 kg 55.5 kg Intake: Intake, IV Titration 727.5 Amount Mvi, Adult No.4 with Vit 727.5 K 10 ml Trace (Conc-1Ml/ Dose) 1 ml In Amino Acid 5%-D20w+Lytes*E* 1,000 ml @ 30 mls/hr IV .Q24H [facility] Rx#:[id number] Output: Urine 300 900 Other: Voiding Method Toilet Toilet Urinal Urinal # Bowel Movements 0 - Exam Abdomen: Soft, nondistended, PEG tube in place, nontender - Labs CBC & Chem 7: 09/13/24 08:00 09/14/24 06:01 Labs: Abnormal Lab Results - Last 24 Hours (Table) 09/13/24 09/13/24 09/13/24 Range/Units 08:00 11:46 17:30 Lymphocytes # 0.69 L (0.90-5.00) 10*3/uL Potassium (3.5-5.1) mmol/L BUN (9-20) mg/dL Creatinine (0.66-1.25) mg/dL Glucose (74-99) mg/dL POC Glucose (mg/dL) 181 H 115 H (70-110) mg/dL Calcium (8.4-10.2) mg/dL Magnesium (1.6-2.3) mg/dL 09/14/24 09/14/24 09/14/24 Range/Units 00:06 06:01 06:01 Lymphocytes # (0.90-5.00) 10*3/uL Potassium 2.9 L (3.5-5.1) mmol/L BUN 6 L (9-20) mg/dL Creatinine 0.41 L (0.66-1.25) mg/dL Glucose 136 H (74-99) mg/dL POC Glucose (mg/dL) 160 H 153 H (70-110) mg/dL Calcium 7.6 L (8.4-10.2) mg/dL Magnesium 1.5 L (1.6-2.3) mg/dL Assessment and Plan (1) Intractable nausea and vomiting Narrative/Plan: Patient with intractable nausea vomiting. Etiology remains unclear but likely related to recurrent hiatal hernia or possible internal hernia. Repeat CAT scan ordered for Monday to evaluate for possible internal herniation. Continue TPN for now. At some point we will likely try restarting tube feeds since when the patient was vomiting he does not believe he was bringing up any tube feed material. Current Visit: Yes Status: Acute Code(s): R11.2 - NAUSEA WITH VOMITING, UNSPECIFIED SNOMED Code(s): 793142664
[2024-09-14 11:55] LABS: Glucose,Whole Blood 131 mg/dL (70-110)
[2024-09-14] MEDS: MAGNESIUM SULFATE-D5W PMX 1 GM in DEXTROSE/WATER 1 100ML.BAG IVPB SCH (12:00)
[2024-09-14] MEDS: POTASSIUM CHLORIDE 20 MEQ in WATER FOR INJECTION 1 100ML.BAG IVPB SCH (12:01)
--- NOTE | 2024-09-14 18:05 | P.PN ---
Subjective Progress Note Date: 09/13/24 68 years old male who was recently discharged from this facility about 4 days ago for nausea vomiting and malnutrition status post PEG tube placement by surgery team. Once he been discharged he started having recurrent nausea vomiting again, he vomited 6 times since yesterday with no blood. Associated with epigastric pain and tenderness His troponin was elevated but EKG showing SVT. He has been evaluated by campus ambassador as well during last admission for elevated troponin. Currently denies chest pain or dyspnea. No specific urinary symptoms. No headache dizziness weakness or numbness He is pain mainly in the epigastric area about 9/10 felt like squeezing nonradiating with no precipitating or relieving factors. He states that the pain is similar to last time. He has no bowel movement. He is using the PEG tube at home. He got Zofran 4 mg and is requesting more medicine He is hemodynamically stable and afebrile He has unremarkable CBC, BMP, LFT. WBC is mildly elevated at 10.4 at 11. Lactic acid 4.6 came back to normal at 1.7. Troponin is elevated 0.065. KUB showing nonspecific gas bowel pattern. EKG showed SVT with a rate of [address] depression in V3-V5 Objective - Vital Signs Vital signs: Vital Signs Temp 97.5 F L 09/13/24 11:42 Pulse 95 09/13/24 11:42 Resp 16 09/13/24 11:42 BP 119/78 09/13/24 11:42 Pulse Ox 98 09/13/24 11:42 FiO2 Intake & Output 09/12/24 09/13/24 09/13/24 18:59 06:59 18:59 Intake Total 300 Output Total 1000 Balance 300 -1000 Weight 55.5 kg 55.5 kg Intake: IV 300 Output: Urine 1000 Other: Voiding Method Toilet Toilet Toilet Urinal Urinal Urinal - Exam -GENERAL: The patient is alert and oriented x3, not in any acute distress. Well developed, well nourished. Thin built HEENT: Pupils are round and equally reacting to light. EOMI. No scleral icterus. No conjunctival pallor. Normocephalic, atraumatic. No pharyngeal erythema. No thyromegaly. CARDIOVASCULAR: S1 and S2 present. No murmurs, rubs, or gallops. PULMONARY: Chest is clear to auscultation, no wheezing , no crackles. -ABDOMEN: Soft, nontender, nondistended, normoactive bowel sounds. No palpable organomegaly. PEG tube is in place with no Abdominal tenderness or guarding MUSCULOSKELETAL: No joint swelling or deformity. EXTREMITIES: No cyanosis, clubbing, or pedal edema. NEUROLOGICAL: Gross neurological examination did not reveal any focal deficits. SKIN: No rashes. no petechiae. - Labs CBC & Chem 7: 09/13/24 08:00 09/14/24 06:01 Labs: Abnormal Lab Results - Last 24 Hours (Table) 09/12/24 09/12/24 09/12/24 Range/Units 15:05 17:25 23:47 RBC (4.40-5.60) 10*6/uL Hgb (13.0-17.0) g/dL Hct (39.6-50.0) % MPV (9.5-12.2) fL Immature Gran # (0.00-0.04) 10*3/uL Lymphocytes # (0.90-5.00) 10*3/uL Immature Plt Fraction (1.1-6.1) % Potassium (3.5-5.1) mmol/L Creatinine (0.66-1.25) mg/dL Glucose (74-99) mg/dL POC Glucose (mg/dL) 141 H 172 H (70-110) mg/dL Calcium (8.4-10.2) mg/dL Ionized Calcium Chago (4.5-5.3) mg/dL Albumin 2.4 L (3.5-5.0) g/dL 09/13/24 09/13/24 09/13/24 Range/Units 05:53 06:40 08:00 RBC 3.19 L (4.40-5.60) 10*6/uL Hgb 9.9 L (13.0-17.0) g/dL Hct 30.0 L (39.6-50.0) % MPV 12.4 H (9.5-12.2) fL Immature Gran # 0.08 H (0.00-0.04) 10*3/uL Lymphocytes # 0.69 L (0.90-5.00) 10*3/uL Immature Plt Fraction 10.0 H (1.1-6.1) % Potassium 2.7 L* (3.5-5.1) mmol/L Creatinine 0.48 L (0.66-1.25) mg/dL Glucose 159 H (74-99) mg/dL POC Glucose (mg/dL) 180 H (70-110) mg/dL Calcium 8.2 L (8.4-10.2) mg/dL Ionized Calcium Chago 4.3 L (4.5-5.3) mg/dL Albumin (3.5-5.0) g/dL 09/13/24 Range/Units 11:46 RBC (4.40-5.60) 10*6/uL Hgb (13.0-17.0) g/dL Hct (39.6-50.0) % MPV (9.5-12.2) fL Immature Gran # (0.00-0.04) 10*3/uL Lymphocytes # (0.90-5.00) 10*3/uL Immature Plt Fraction (1.1-6.1) % Potassium (3.5-5.1) mmol/L Creatinine (0.66-1.25) mg/dL Glucose (74-99) mg/dL POC Glucose (mg/dL) 181 H (70-110) mg/dL Calcium (8.4-10.2) mg/dL Ionized Calcium Chago (4.5-5.3) mg/dL Albumin (3.5-5.0) g/dL Assessment and Plan Assessment: Hematemesis Recurrent nausea vomiting, intractable requiring PEG tube placement during last admission Epigastric pain and tenderness could be secondary to gastritis Elevated troponin could be secondary to SVT related dehydration, evaluated by cardiology during last admission Severe calorie protein malnutrition Hypertension Hyperlipidemia Anxiety/depression, not on active issue - Distal esophagitis Hiatal hernia seen on recent EKG Add IV Protonix and IV fluids and monitor hemoglobin. Avoid heparin or NSAIDs Continues intake via PEG tube, currently on hold Surgical team consult with plan for EGD on 09/12 Nutrition consult Continue with Zofran and Reglan which she was getting [id number] Cardiology team consult Resume home medication Labs and medication were reviewed.. Continue same treatment. Continue with symptomatic treatment. Resume home medication. Monitor labs and vitals. DVT and GI prophylaxis. Further recommendations as per clinical course of the patient DVT prophylaxis: no Subcutaneous heparin. Continue with mechanical GI Prophylaxis: Protonix Prognosis is guarded
[2024-09-14 18:09] LABS: Glucose,Whole Blood 119 mg/dL (70-110)
--- NOTE | 2024-09-14 18:11 | P.PN ---
Subjective Progress Note Date: 09/14/24 68 years old male who was recently discharged from this facility about 4 days ago for nausea vomiting and malnutrition status post PEG tube placement by surgery team. Once he been discharged he started having recurrent nausea vomiting again, he vomited 6 times since yesterday with no blood. Associated with epigastric pain and tenderness His troponin was elevated but EKG showing SVT. He has been evaluated by terminal block assembler as well during last admission for elevated troponin. Currently denies chest pain or dyspnea. No specific urinary symptoms. No headache dizziness weakness or numbness He is pain mainly in the epigastric area about 9/10 felt like squeezing nonradiating with no precipitating or relieving factors. He states that the pain is similar to last time. He has no bowel movement. He is using the PEG tube at home. He got Zofran 4 mg and is requesting more medicine He is hemodynamically stable and afebrile He has unremarkable CBC, BMP, LFT. WBC is mildly elevated at 10.4 at 11. Lactic acid 4.6 came back to normal at 1.7. Troponin is elevated 0.065. KUB showing nonspecific gas bowel pattern. EKG showed SVT with a rate of [address] depression in V3-V5 09/14/2024 Patient is seen and evaluated in room at bedside; continues to have episodes of vomiting; patient has PEG tube placed and currently is to suction with bilious output; remains on TPN Vital signs stable with temperature of 97.4, pulse 82, respirations 16 and blood pressure 134/86, O2 saturation 98% on room air Lab review reveals sodium of 138, potassium 2.9, BUNs/creatinine of 6/0.41, blood glucose ranging between 130-160, magnesium low at 1.5 -Electrolyte replacement has been ordered - General Surgery on board; patient continues to have nausea and vomiting; likely related to recurrent hiatal hernia or possible internal hernia; surgery recommending repeat CT of the chest and abdomen on Monday - Continue with TPN at this time Objective - Vital Signs Vital signs: Vital Signs Temp 97.4 F L 09/14/24 08:00 Pulse 82 09/14/24 08:00 Resp 16 09/14/24 08:00 BP 134/86 09/14/24 08:00 Pulse Ox 98 09/14/24 08:00 FiO2 Intake & Output 0409/14/24 09/14/24 18:59 06:59 18:59 Intake Total 727.5 Output Total 300 900 Balance 427.5 -900 Weight 55.5 kg 55.5 kg Intake: Intake, IV Titration 727.5 Amount Mvi, Adult No.4 with Vit 727.5 K 10 ml Trace (Conc-1Ml/ Dose) 1 ml In Amino Acid 5%-D20w+Lytes*E* 1,000 ml @ 30 mls/hr IV .Q24H [facility] Rx#:[id number] Output: Urine 300 900 Other: Voiding Method Toilet Toilet Toilet Urinal Urinal Urinal # Bowel Movements 0 - Exam -GENERAL: The patient is alert and oriented x3, not in any acute distress. Well developed, well nourished. Thin built HEENT: Pupils are round and equally reacting to light. EOMI. No scleral icterus. No conjunctival pallor. Normocephalic, atraumatic. No pharyngeal erythema. No thyromegaly. CARDIOVASCULAR: S1 and S2 present. No murmurs, rubs, or gallops. PULMONARY: Chest is clear to auscultation, no wheezing , no crackles. -ABDOMEN: Soft, nontender, nondistended, normoactive bowel sounds. No palpable organomegaly. PEG tube is in place with no Abdominal tenderness or guarding MUSCULOSKELETAL: No joint swelling or deformity. EXTREMITIES: No cyanosis, clubbing, or pedal edema. NEUROLOGICAL: Gross neurological examination did not reveal any focal deficits. SKIN: No rashes. no petechiae. - Labs CBC & Chem 7: 09/13/24 08:00 09/14/24 06:01 Labs: Abnormal Lab Results - Last 24 Hours (Table) 09/13/24 09/13/24 09/14/24 Range/Units 11:46 17:30 00:06 Potassium (3.5-5.1) mmol/L BUN (9-20) mg/dL Creatinine (0.66-1.25) mg/dL Glucose (74-99) mg/dL POC Glucose (mg/dL) 181 H 115 H 160 H (70-110) mg/dL Calcium (8.4-10.2) mg/dL Magnesium (1.6-2.3) mg/dL 09/14/24 09/14/24 Range/Units 06:01 06:01 Potassium 2.9 L (3.5-5.1) mmol/L BUN 6 L (9-20) mg/dL Creatinine 0.41 L (0.66-1.25) mg/dL Glucose 136 H (74-99) mg/dL POC Glucose (mg/dL) 153 H (70-110) mg/dL Calcium 7.6 L (8.4-10.2) mg/dL Magnesium 1.5 L (1.6-2.3) mg/dL Assessment and Plan Assessment: Hematemesis Recurrent nausea vomiting, intractable requiring PEG tube placement during last admission Epigastric pain and tenderness could be secondary to gastritis Elevated troponin could be secondary to SVT related dehydration, evaluated by cardiology during last admission Severe calorie protein malnutrition Hypertension Hyperlipidemia Anxiety/depression, not on active issue - Distal esophagitis Hiatal hernia seen on recent EKG Add IV Protonix and IV fluids and monitor hemoglobin. Avoid heparin or NSAIDs Continues intake via PEG tube, currently on hold Surgical team consult with plan for EGD on 09/12 Nutrition consult Continue with Chela which she was getting [id number] Cardiology team consult Resume home medication Labs and medication were reviewed.. Continue same treatment. Continue with symptomatic treatment. Resume home medication. Monitor labs and vitals. DVT and GI prophylaxis. Further recommendations as per clinical course of the patient DVT prophylaxis: no Subcutaneous heparin. Continue with mechanical GI Prophylaxis: Protonix Prognosis is guarded
[2024-09-14 20:44] LABS: Glucose,Whole Blood 99 mg/dL (70-110)
[2024-09-15 00:16] LABS: Glucose,Whole Blood 135 mg/dL (70-110)
[2024-09-15 05:46] LABS: African American GFR (CKD) >90 (>60 ml/min/1.73 sqM); Anion Gap 5 mmol/L; Blood Urea Nitrogen 8 mg/dL (9-20); Calcium 8.5 mg/dL (8.4-10.2); Carbon Dioxide 32 mmol/L (22-30); Chloride 99 mmol/L (98-107); Glucose 103 mg/dL (74-99); Magnesium 1.9 mg/dL (1.6-2.3); Non-African American GFR(CKD) >90 (>60 ml/min/1.73 sqM); Phosphorus 3.1 mg/dL (2.5-4.5); Potassium 3.4 mmol/L (3.5-5.1); Sodium 136 mmol/L (137-145)
[2024-09-15 06:33] LABS: Glucose,Whole Blood 133 mg/dL (70-110)
[2024-09-15 10:06] LABS: Basophils # (A) 0.08 X 10*3/uL (0.00-0.10); Basophils % (A) 1.2 %; Eosinophils # (A) 0.19 X 10*3/uL (0.04-0.35); Eosinophils % (A) 2.9 %; HCT 34.4 % (39.6-50.0); Lymphocytes # (A) 1.06 X 10*3/uL (0.90-5.00); Lymphocytes % (A) 15.9 %; MCH 30.5 pg (27.0-32.0); MCV 95.3 FL (80.0-97.0); Mean Platelet Volume 11.5 FL (9.5-12.2); Monocytes # (A) 0.24 X 10*3/uL (0.20-1.00); Monocytes % (A) 3.6 %; NRBC Per 100 WBC 0 X 10*3/uL (0.00-0.01); Neutrophils % (A) 72.2 %; Platelet Count 298 X 10*3/uL (140-440); RBC 3.61 X 10*6/uL (4.40-5.60); RDW 20.1 % (11.5-14.5); WBC 6.65 X 10*3/uL (4.50-10.00)
--- NOTE | 2024-09-15 10:34 | P.PN ---
Subjective Progress Note Date: 09/15/24 Principal diagnosis: Intractable vomiting Patient is doing well again today. No vomiting for the last day and a half. Still has reflux symptoms and belching. Patient remains on TPN. Hemoglobin stable. Objective - Vital Signs Vital signs: Vital Signs Temp 98.1 F 09/15/24 07:54 Pulse 63 09/15/24 07:54 Resp 17 09/15/24 07:54 BP 118/79 09/15/24 07:54 Pulse Ox 98 09/15/24 07:54 FiO2 Intake & Output 09/14/24 09/15/24 09/15/24 18:59 06:59 18:59 Intake Total 928.5 Output Total 750 780 Balance -750 148.5 Weight 56.5 kg Intake: Intake, IV Titration 928.5 Amount Mvi, Adult No.4 with Vit 928.5 K 10 ml Trace (Conc-1Ml/ Dose) 1 ml In Amino Acid 5%-D20w+Lytes*E* 1,000 ml @ 30 mls/hr IV .Q24H [facility] Rx#:[id number] Output: Urine 750 780 Other: Voiding Method Toilet Urinal Urinal - Exam Abdomen: Soft, nondistended, PEG tube in place, nontender - Labs CBC & Chem 7: 09/15/24 05:17 09/15/24 05:17 Labs: Abnormal Lab Results - Last 24 Hours (Table) 09/14/24 09/14/24 09/15/24 Range/Units 11:53 18:07 00:15 RBC (4.40-5.60) X 10*6/uL Hgb (13.0-17.0) g/dL Hct (39.6-50.0) % RDW (11.5-14.5) % Immature Gran # (0.00-0.04) X 10*3/uL Sodium (137-145) mmol/L Potassium (3.5-5.1) mmol/L Carbon Dioxide (22-30) mmol/L BUN (9-20) mg/dL Creatinine (0.66-1.25) mg/dL Glucose (74-99) mg/dL POC Glucose (mg/dL) 131 H 119 H 135 H (70-110) mg/dL 09/15/24 09/15/24 09/15/24 Range/Units 05:17 05:17 06:31 RBC 3.61 L (4.40-5.60) X 10*6/uL Hgb 11.0 L (13.0-17.0) g/dL Hct 34.4 L (39.6-50.0) % RDW 20.1 H (11.5-14.5) % Immature Gran # 0.28 H (0.00-0.04) X 10*3/uL Sodium 136 L (137-145) mmol/L Potassium 3.4 L (3.5-5.1) mmol/L Carbon Dioxide 32 H (22-30) mmol/L BUN 8 L (9-20) mg/dL Creatinine 0.47 L (0.66-1.25) mg/dL Glucose 103 H (74-99) mg/dL POC Glucose (mg/dL) 133 H (70-110) mg/dL Assessment and Plan (1) Intractable nausea and vomiting Narrative/Plan: Patient doing well at this time. Begin resumption of tube feeds at 20 cc/h. Monitor for worsening nausea or vomiting with the reintroduction of tube feeds. Current Visit: Yes Status: Acute Code(s): R11.2 - NAUSEA WITH VOMITING, UNSPECIFIED SNOMED Code(s): 187408046
[2024-09-15] MEDS: POTASSIUM CHLORIDE 20 MEQ in WATER FOR INJECTION 1 100ML.BAG IVPB SCH (11:09)
[2024-09-15 12:04] LABS: Glucose,Whole Blood 132 mg/dL (70-110)
--- NOTE | 2024-09-15 15:23 | P.PN ---
Subjective Progress Note Date: 09/15/24 68 years old male who was recently discharged from this facility about 4 days ago for nausea vomiting and malnutrition status post PEG tube placement by surgery team. Once he been discharged he started having recurrent nausea vomiting again, he vomited 6 times since yesterday with no blood. Associated with epigastric pain and tenderness His troponin was elevated but EKG showing SVT. He has been evaluated by masonry inspector as well during last admission for elevated troponin. Currently denies chest pain or dyspnea. No specific urinary symptoms. No headache dizziness weakness or numbness He is pain mainly in the epigastric area about 9/10 felt like squeezing nonradiating with no precipitating or relieving factors. He states that the pain is similar to last time. He has no bowel movement. He is using the PEG tube at home. He got Zofran 4 mg and is requesting more medicine He is hemodynamically stable and afebrile He has unremarkable CBC, BMP, LFT. WBC is mildly elevated at 10.4 at 11. Lactic acid 4.6 came back to normal at 1.7. Troponin is elevated 0.065. KUB showing nonspecific gas bowel pattern. EKG showed SVT with a rate of [address] depression in V3-V5 09/14/2024 Patient is seen and evaluated in room at bedside; continues to have episodes of vomiting; patient has PEG tube placed and currently is to suction with bilious output; remains on TPN Vital signs stable with temperature of 97.4, pulse 82, respirations 16 and blood pressure 134/86, O2 saturation 98% on room air Lab review reveals sodium of 138, potassium 2.9, BUNs/creatinine of 6/0.41, blood glucose ranging between 130-160, magnesium low at 1.5 -Electrolyte replacement has been ordered - General Surgery on board; patient continues to have nausea and vomiting; likely related to recurrent hiatal hernia or possible internal hernia; surgery recommending repeat CT of the chest and abdomen on Monday - Continue with TPN at this time 09/15/2024 Patient is seen and evaluated again to follow-up on intractable nausea and vomiting; reports no vomiting since yesterday; remains on TPN Vital signs are stable with temperature 98.1, pulse 63, respirations 17 and blood pressure 118/79 Lab review shows WBC of 6.6, hemoglobin of 11 and platelet count of 298, sodium 136, potassium 3.4, BUNs/creatinine of 8/2.47 and blood glucose of 103 -Surgery to clear patient for tube feed Objective - Vital Signs Vital signs: Vital Signs Temp 98.1 F 09/15/24 07:54 Pulse 63 09/15/24 07:54 Resp 17 09/15/24 07:54 BP 118/79 09/15/24 07:54 Pulse Ox 98 09/15/24 07:54 FiO2 Intake & Output 09/14/24 09/15/24 09/15/24 18:59 06:59 18:59 Intake Total 928.5 Output Total 750 780 Balance -750 148.5 Weight 56.5 kg Intake: Intake, IV Titration 928.5 Amount Mvi, Adult No.4 with Vit 928.5 K 10 ml Trace (Conc-1Ml/ Dose) 1 ml In Amino Acid 5%-D20w+Lytes*E* 1,000 ml @ 30 mls/hr IV .Q24H [facility] Rx#:[id number] Output: Urine 750 780 Other: Voiding Method Toilet Urinal Urinal - Exam -GENERAL: The patient is alert and oriented x3, not in any acute distress. Well developed, well nourished. Thin built HEENT: Pupils are round and equally reacting to light. EOMI. No scleral icterus. No conjunctival pallor. Normocephalic, atraumatic. No pharyngeal erythema. No thyromegaly. CARDIOVASCULAR: S1 and S2 present. No murmurs, rubs, or gallops. PULMONARY: Chest is clear to auscultation, no wheezing , no crackles. -ABDOMEN: Soft, nontender, nondistended, normoactive bowel sounds. No palpable organomegaly. PEG tube is in place with no Abdominal tenderness or guarding MUSCULOSKELETAL: No joint swelling or deformity. EXTREMITIES: No cyanosis, clubbing, or pedal edema. NEUROLOGICAL: Gross neurological examination did not reveal any focal deficits. SKIN: No rashes. no petechiae. - Labs CBC & Chem 7: 09/15/24 05:17 09/15/24 05:17 Labs: Abnormal Lab Results - Last 24 Hours (Table) 09/14/24 09/14/24 09/15/24 Range/Units 11:53 18:07 00:15 Sodium (137-145) mmol/L Potassium (3.5-5.1) mmol/L Carbon Dioxide (22-30) mmol/L BUN (9-20) mg/dL Creatinine (0.66-1.25) mg/dL Glucose (74-99) mg/dL POC Glucose (mg/dL) 131 H 119 H 135 H (70-110) mg/dL 09/15/24 09/15/24 Range/Units 05:17 06:31 Sodium 136 L (137-145) mmol/L Potassium 3.4 L (3.5-5.1) mmol/L Carbon Dioxide 32 H (22-30) mmol/L BUN 8 L (9-20) mg/dL Creatinine 0.47 L (0.66-1.25) mg/dL Glucose 103 H (74-99) mg/dL POC Glucose (mg/dL) 133 H (70-110) mg/dL Assessment and Plan Assessment: Hematemesis Recurrent nausea vomiting, intractable requiring PEG tube placement during last admission Epigastric pain and tenderness could be secondary to gastritis Elevated troponin could be secondary to SVT related dehydration, evaluated by cardiology during last admission Severe calorie protein malnutrition Hypertension Hyperlipidemia Anxiety/depression, not on active issue - Distal esophagitis Hiatal hernia seen on recent EKG Add IV Protonix and IV fluids and monitor hemoglobin. Avoid heparin or NSAIDs Continues intake via PEG tube, currently on hold Surgical team consult with plan for EGD on 09/12 Nutrition consult Continue with Zofran and Reglan which she was getting [id number] Cardiology team consult Resume home medication Labs and medication were reviewed.. Continue same treatment. Continue with symptomatic treatment. Resume home medication. Monitor labs and vitals. DVT and GI prophylaxis. Further recommendations as per clinical course of the patient DVT prophylaxis: no Subcutaneous heparin. Continue with mechanical GI Prophylaxis: Protonix Prognosis is guarded
[2024-09-15 18:01] LABS: Glucose,Whole Blood 122 mg/dL (70-110)
[2024-09-15 20:54] LABS: Glucose,Whole Blood 136 mg/dL (70-110)
[2024-09-15] MEDS: MAGNESIUM SULFATE-D5W PMX 1 GM in DEXTROSE/WATER 1 100ML.BAG IVPB ONE (21:27)
[2024-09-16 03:28] LABS: Glucose,Whole Blood 131 mg/dL (70-110)
[2024-09-16 04:22] LABS: African American GFR (CKD) >90 (>60 ml/min/1.73 sqM); Anion Gap 4 mmol/L; Blood Urea Nitrogen 8 mg/dL (9-20); Calcium 7.9 mg/dL (8.4-10.2); Carbon Dioxide 29 mmol/L (22-30); Chloride 102 mmol/L (98-107); Glucose 125 mg/dL (74-99); Non-African American GFR(CKD) >90 (>60 ml/min/1.73 sqM); Phosphorus 2.7 mg/dL (2.5-4.5); Potassium 3.5 mmol/L (3.5-5.1); Sodium 135 mmol/L (137-145)
[2024-09-16] MEDS: POTASSIUM CHLORIDE 10 MEQ in WATER FOR INJECTION 1 100ML.BAG IVPB SCH (04:51)
[2024-09-16 06:17] LABS: Glucose,Whole Blood 135 mg/dL (70-110)
[2024-09-16] MEDS: 1: MVI, ADULT NO.4 WITH VIT K 10 ML, TRACE (CONC-1ML/DOSE) 1 ML in AMINO ACID 5%-D20W+LY IV SCH (07:10)
[2024-09-16 08:51] LABS: Basophils # (A) 0.06 X 10*3/uL (0.00-0.10); Eosinophils # (A) 0.15 X 10*3/uL (0.04-0.35); Eosinophils % (A) 2.4 %; HCT 29.6 % (39.6-50.0); HGB 9.4 g/dL (13.0-17.0); Lymphocytes # (A) 1.12 X 10*3/uL (0.90-5.00); Lymphocytes % (A) 17.8 %; MCHC 31.8 g/dL (32.0-37.0); MCV 94.6 FL (80.0-97.0); Mean Platelet Volume 11.2 FL (9.5-12.2); Monocytes % (A) 4.8 %; NRBC Per 100 WBC 0 X 10*3/uL (0.00-0.01); Neutrophils % (A) 71.6 %; Platelet Count 311 X 10*3/uL (140-440); RBC 3.13 X 10*6/uL (4.40-5.60); WBC 6.28 X 10*3/uL (4.50-10.00)
[2024-09-16] MEDS ORDERED: DOCUSATE 100 MG CAP PO SCH (11:30)
--- NOTE | 2024-09-16 12:16 | XR ---
EXAMINATION TYPE: XR abdomen 2V DATE OF EXAM: 09/16/2024 11:57 AM COMPARISON: 09/11/2024 CLINICAL INDICATION: Male, 68 years old with history of check location of barium; [facility] TECHNIQUE: Two views of the abdomen were obtained. FINDINGS: Retained oral contrast material throughout the colon with only slight overall progression f rom 09/11/2024. No dilated small bowel loops. IMPRESSION: Nonobstructive bowel gas pattern. Residual oral contrast remains throughout the colon with only sligh t overall progression from 09/11/2024. [facility], Workstation: [id number], 09/16/2024 12:13 PM
--- NOTE | 2024-09-16 12:48 | P.PN ---
Subjective Progress Note Date: 09/16/24 SURGICAL PROGRESS NOTE CHIEF COMPLAINT: Recurrent nausea and vomiting HISTORY OF PRESENT ILLNESS: Patient is sitting up in bed comfortably. He is spitting up clearish fluid. He denies abdominal pain. He does report no bowel movement for several days. He is having flatus. PEG tube is no longer to dr armstrong. He is on TPN for nutrition support. Afebrile. Tachycardia improved. WBC 6.28 Hgb 9.4 PHYSICAL EXAM: VITAL SIGNS: Reviewed. GENERAL: Well-developed in no acute distress. ABDOMEN: Soft. Nondistended. Nontender. PEG tube site clean dry and intact. NEUROLOGIC: Alert and oriented. Cranial nerves II through XII grossly intact. ASSESSMENT: 1. Upper GI bleed with bright red blood and coffee-ground emesis. now resolved 2. Intermittent internal hernia 3. Intractable nausea and vomiting 4. History of esophageal dysmotility disorder 5. Hiatal hernia 6. Esophagitis 7. Severe protein calorie malnutrition PLAN: -Okay to resume tube feeds. Wean off TPN. Dietitian consult -Abdominal x-ray ordered to check for barium location. X-ray reports nonobstructive bowel gas pattern. Residual oral contrast remains throughout the colon with only a slight overall progression from 09/11/2024 -Colace and lactulose 3 times daily ordered for constipation and to help move the barium -Plan for CT scan abdomen and pelvis to evaluate for the intermittent internal hernia once barium has cleared -Continue PPI -Continue antiemetics Physician Microbiological Laboratory Technician note has been reviewed by physician. Signing provider agrees with the documented findings, assessment, and plan of care. Objective - Vital Signs Vital signs: Vital Signs Temp 97.3 F L 09/16/24 07:03 Pulse 91 09/16/24 07:59 Resp 16 09/16/24 07:03 BP 100/71 09/16/24 07:59 Pulse Ox 99 09/16/24 07:59 FiO2 Intake & Output 09/15/24 09/16/24 09/16/24 18:59 06:59 18:59 Output Total 700 600 Balance -700 -600 Weight 55.6 kg Output: Urine 700 600 Other: Voiding Method Urinal Urinal # Voids 1 - Labs CBC & Chem 7: 09/16/24 03:44 09/16/24 03:44 Labs: Abnormal Lab Results - Last 24 Hours (Table) 09/15/24 09/15/24 09/16/24 Range/Units 18:00 20:49 03:27 RBC (4.40-5.60) X 10*6/uL Hgb (13.0-17.0) g/dL Hct (39.6-50.0) % MCHC (32.0-37.0) g/dL RDW (11.5-14.5) % Immature Gran # (0.00-0.04) X 10*3/uL Sodium (137-145) mmol/L BUN (9-20) mg/dL Creatinine (0.66-1.25) mg/dL Glucose (74-99) mg/dL POC Glucose (mg/dL) 122 H 136 H 131 H (70-110) mg/dL Calcium (8.4-10.2) mg/dL 09/16/24 09/16/24 09/16/24 Range/Units 03:44 03:44 06:16 RBC 3.13 L (4.40-5.60) X 10*6/uL Hgb 9.4 L (13.0-17.0) g/dL Hct 29.6 L (39.6-50.0) % MCHC 31.8 L (32.0-37.0) g/dL RDW 20.0 H (11.5-14.5) % Immature Gran # 0.15 H (0.00-0.04) X 10*3/uL Sodium 135 L (137-145) mmol/L BUN 8 L (9-20) mg/dL Creatinine 0.43 L (0.66-1.25) mg/dL Glucose 125 H (74-99) mg/dL POC Glucose (mg/dL) 135 H (70-110) mg/dL Calcium 7.9 L (8.4-10.2) mg/dL
[2024-09-16 14:07] LABS: Glucose,Whole Blood 163 mg/dL (70-110)
[2024-09-16] MEDS: DOCUSATE ORAL SOLN 100 MG/10 ML CUP PEG/G-TUBE SCH (14:38)
[2024-09-16] MEDS: LACTULOSE 20 GM/30 ML CUP PEG/G-TUBE SCH (14:39)
[2024-09-16 16:56] LABS: Glucose,Whole Blood 138 mg/dL (70-110)
[2024-09-16] MEDS: PIPERACILLIN-TAZOBACTAM 3.375 GM in SODIUM CHLORIDE 0.9% 100 ML IVPB SCH (17:01)
--- NOTE | 2024-09-16 19:46 | P.PN ---
Subjective Progress Note Date: 09/16/24 68 years old male who was recently discharged from this facility about 4 days ago for nausea vomiting and malnutrition status post PEG tube placement by surgery team. Once he been discharged he started having recurrent nausea vomiting again, he vomited 6 times since yesterday with no blood. Associated with epigastric pain and tenderness His troponin was elevated but EKG showing SVT. He has been evaluated by manager medical device as well during last admission for elevated troponin. Currently denies chest pain or dyspnea. No specific urinary symptoms. No headache dizziness weakness or numbness He is pain mainly in the epigastric area about 9/10 felt like squeezing nonradiating with no precipitating or relieving factors. He states that the pain is similar to last time. He has no bowel movement. He is using the PEG tube at home. He got Zofran 4 mg and is requesting more medicine He is hemodynamically stable and afebrile He has unremarkable CBC, BMP, LFT. WBC is mildly elevated at 10.4 at 11. Lactic acid 4.6 came back to normal at 1.7. Troponin is elevated 0.065. KUB showing nonspecific gas bowel pattern. EKG showed SVT with a rate of [address] depression in V3-V5 09/14/2024 Patient is seen and evaluated in room at bedside; continues to have episodes of vomiting; patient has PEG tube placed and currently is to suction with bilious output; remains on TPN Vital signs stable with temperature of 97.4, pulse 82, respirations 16 and blood pressure 134/86, O2 saturation 98% on room air Lab review reveals sodium of 138, potassium 2.9, BUNs/creatinine of 6/0.41, blood glucose ranging between 130-160, magnesium low at 1.5 -Electrolyte replacement has been ordered - General Surgery on board; patient continues to have nausea and vomiting; likely related to recurrent hiatal hernia or possible internal hernia; surgery recommending repeat CT of the chest and abdomen on Monday - Continue with TPN at this time 09/15/2024 Patient is seen and evaluated again to follow-up on intractable nausea and vomiting; reports no vomiting since yesterday; remains on TPN Vital signs are stable with temperature 98.1, pulse 63, respirations 17 and blood pressure 118/79 Lab review shows WBC of 6.6, hemoglobin of 11 and platelet count of 298, sodium 136, potassium 3.4, BUNs/creatinine of 8/2.47 and blood glucose of 103 -Surgery to clear patient for tube feed 09/16/2024 Patient seen in follow-up today with general surgery following. Patient maintained on TPN and per general surgery okay to initiate tube feeds again and monitor for tolerance. Potassium slightly low and will replace per protocol follow-up BMP in the a.m. Electrolytes being closely monitored and adjusted per dietary and pharmacy due to TPN as well. Patient continues to have clearish frothy phlegm spit up with nausea and denies any vomiting at this time. No further bleeding noted and hemoglobin is stable. Continued barium residual and is being started on bowel regimen as patient has not had a bowel movement in a few days and recommend repeat CT to evaluate once barium has been cleared. Patient is afebrile with no reports of chest pain or shortness of breath. review of systems: Constitutional: No reports of fatigue, fever, or chills Cardiovascular: No reports of chest pain or palpitations Respiratory: No reports of shortness of breath or cough GI: reports of continued constant nausea, denies vomiting but is dry heaving and spitting up frothy clear liquid, denies having a bowel movement over the last few days : No reports of dysuria or retention Neurovascular: reports of generalized weakness All medications have been reviewed Physical exam: Gen: This is a 68-year-old male who is asleep although easily arousable, alert and oriented x 3, thin built, elderly appearing, ill-appearing, cachectic HEENT: Head is atraumatic, normocephalic. Pupils equal, round. Sclerae is anicteric. NECK: Supple. No JVD. No lymphadenopathy. No thyromegaly. LUNGS: Diminished breath sounds bilaterally otherwise clear to auscultation. No wheezes or rhonchi. No intercostal retractions. HEART: S1, S2 are muffled ABDOMEN: Soft. Thin. Bowel sounds are present. No masses. No tenderness. PEG tube noted EXTREMITIES: No pedal edema. No calf tenderness. NEUROLOGICAL: Patient is awake, alert and oriented x3. Cranial nerves 2 through 12 are grossly intact. Assessment Hematemesis with concerns of possible GI bleed, now resolved Recurrent nausea vomiting, intractable requiring PEG tube placement during last admission multifactorial likely secondary to intermittent internal hernia as well as significant history of esophageal dysmotility disorder Epigastric pain and tenderness likely secondary to gastritis Elevated troponin could be secondary to dehydration, evaluated by cardiology during last admission Severe calorie protein malnutrition with a BMI of 18.6 Hypertension Hyperlipidemia Anxiety/depression, not on active issue Distal esophagitis Hiatal hernia seen on recent EKG Plan: Patient is continued on gentle hydration and IV Protonix continues on TPN a lthough will be weaned General surgery following with no plans of intervention at this time recommen ding repeat CT in the next couple of days to assess if barium has moved through the colon. Continue bowel regimen scheduled until having bowel movements as patient also notes he has not had a bowel movement in a few days Patient continues with nausea and dry heaving and will be n.p.o. for now, tube feedings being started and weaning off TPN Continue with Zofran and Reglan which he is getting [id number] Encouraged increase activity as tolerated with sitting up out of the bed more often and in the chair Prognosis is guarded The impression and plan of care has been dictated by Yanira Linda, Nurse Practitioner as directed. Dr. Bentley MD I have performed a history and examination and MDM of this patient, discussed the same with the dictator, and agree with the dictator's assessment and plan as written ,documented as a scribe. Based on total visit time, I have performed more than 50% of the visit. Objective - Vital Signs Vital signs: Vital Signs Temp 97.3 F L 09/16/24 07:03 Pulse 91 09/16/24 07:59 Resp 16 09/16/24 07:03 BP 100/71 09/16/24 07:59 Pulse Ox 99 09/16/24 07:59 FiO2 Intake & Output 09/15/24 09/16/24 09/16/24 18:59 06:59 18:59 Output Total 700 600 Balance -700 -600 Weight 55.6 kg Output: Urine 700 600 Other: Voiding Method Urinal Urinal # Voids 1 - Labs CBC & Chem 7: 09/16/24 03:44 09/16/24 18:19 Labs: Abnormal Lab Results - Last 24 Hours (Table) 09/15/24 09/15/24 09/15/24 Range/Units 05:17 12:03 18:00 RBC 3.61 L (4.40-5.60) X 10*6/uL Hgb 11.0 L (13.0-17.0) g/dL Hct 34.4 L (39.6-50.0) % MCHC (32.0-37.0) g/dL RDW 20.1 H (11.5-14.5) % Immature Gran # 0.28 H (0.00-0.04) X 10*3/uL Sodium (137-145) mmol/L BUN (9-20) mg/dL Creatinine (0.66-1.25) mg/dL Glucose (74-99) mg/dL POC Glucose (mg/dL) 132 H 122 H (70-110) mg/dL Calcium (8.4-10.2) mg/dL 09/15/24 09/16/24 09/16/24 Range/Units 20:49 03:27 03:44 RBC (4.40-5.60) X 10*6/uL Hgb (13.0-17.0) g/dL Hct (39.6-50.0) % MCHC (32.0-37.0) g/dL RDW (11.5-14.5) % Immature Gran # (0.00-0.04) X 10*3/uL Sodium 135 L (137-145) mmol/L BUN 8 L (9-20) mg/dL Creatinine 0.43 L (0.66-1.25) mg/dL Glucose 125 H (74-99) mg/dL POC Glucose (mg/dL) 136 H 131 H (70-110) mg/dL Calcium 7.9 L (8.4-10.2) mg/dL 09/16/24 09/16/24 Range/Units 03:44 06:16 RBC 3.13 L (4.40-5.60) X 10*6/uL Hgb 9.4 L (13.0-17.0) g/dL Hct 29.6 L (39.6-50.0) % MCHC 31.8 L (32.0-37.0) g/dL RDW 20.0 H (11.5-14.5) % Immature Gran # 0.15 H (0.00-0.04) X 10*3/uL Sodium (137-145) mmol/L BUN (9-20) mg/dL Creatinine (0.66-1.25) mg/dL Glucose (74-99) mg/dL POC Glucose (mg/dL) 135 H (70-110) mg/dL Calcium (8.4-10.2) mg/dL
[2024-09-16 22:34] LABS: Glucose,Whole Blood 143 mg/dL (70-110)
[2024-09-16 23:32] LABS: Glucose,Whole Blood 132 mg/dL (70-110)
[2024-09-17 04:23] LABS: ALT 46 U/L (4-49); AST 38 U/L (17-59); African American GFR (CKD) >90 (>60 ml/min/1.73 sqM); Albumin 2.6 g/dL (3.5-5.0); Albumin/Globulin Ratio 1.1; Alkaline Phosphatase 261 U/L (38-126); Anion Gap 5 mmol/L; Blood Urea Nitrogen 18 mg/dL (9-20); Calcium 8.1 mg/dL (8.4-10.2); Carbon Dioxide 26 mmol/L (22-30); Chloride 105 mmol/L (98-107); Globulin 2.3 g/dL; Glucose 140 mg/dL (74-99); Magnesium 1.8 mg/dL (1.6-2.3); Non-African American GFR(CKD) >90 (>60 ml/min/1.73 sqM); Phosphorus 2.6 mg/dL (2.5-4.5); Sodium 136 mmol/L (137-145); Total Bilirubin 0.4 mg/dL (0.2-1.3); Total Protein 4.9 g/dL (6.3-8.2)
[2024-09-17 06:37] LABS: Glucose,Whole Blood 161 mg/dL (70-110)
[2024-09-17 11:30] LABS: Glucose,Whole Blood 172 mg/dL (70-110)
[2024-09-17] MEDS: 1: MVI, ADULT NO.4 WITH VIT K 10 ML, TRACE (CONC-1ML/DOSE) 1 ML in AMINO ACID 5%-D20W+LY IV SCH (14:41)
--- NOTE | 2024-09-17 14:54 | P.PN ---
Subjective Progress Note Date: 09/17/24 SURGICAL PROGRESS NOTE CHIEF COMPLAINT: Recurrent nausea and vomiting HISTORY OF PRESENT ILLNESS: Patient had vomiting last night concerns that the possibly had tube feeds in the emesis. Tube feeds were placed on hold. Patient denies any abdominal pain. He did have a few episodes of diarrhea. He did have a fall with getting to the bathroom. He does have TPN for nutrition support. This morning he was back to spitting up clearish fluid. Afebrile. Mildly tachycardic. PHYSICAL EXAM: VITAL SIGNS: Reviewed. GENERAL: Well-developed in no acute distress. ABDOMEN: Soft. Nondistended. Nontender. PEG tube site clean dry and intact. NEUROLOGIC: Alert and oriented. Cranial nerves II through XII grossly intact. ASSESSMENT: 1. Upper GI bleed with bright red blood and coffee-ground emesis. now resolved 2. Intermittent internal hernia 3. Intractable nausea and vomiting 4. History of esophageal dysmotility disorder 5. Hiatal hernia 6. Esophagitis 7. Severe protein calorie malnutrition PLAN: -Check abdominal x-ray to evaluate for barium clearance. If barium is cleared CT scan abdomen pelvis ordered for evaluation of intermittent internal hernia -Continue to hold tube feeds -Continue TPN for nutrition support Physician Boat Outboard Engine Mechanic note has been reviewed by physician. Signing provider agrees with the documented findings, assessment, and plan of care. Objective - Vital Signs Vital signs: Vital Signs Temp 98.4 F 09/17/24 13:13 Pulse 107 H 09/17/24 13:13 Resp 17 09/17/24 13:13 BP 112/73 09/17/24 13:13 Pulse Ox 98 09/17/24 13:13 FiO2 Intake & Output 09/16/24 09/17/24 09/17/24 18:59 06:59 18:59 Weight 55.6 kg 55 kg Other: Voiding Method Urinal - Labs CBC & Chem 7: 09/16/24 03:44 09/17/24 03:30 Labs: Abnormal Lab Results - Last 24 Hours (Table) 09/16/24 09/16/24 09/16/24 Range/Units 16:51 22:33 23:30 Sodium (137-145) mmol/L Creatinine (0.66-1.25) mg/dL Glucose (74-99) mg/dL POC Glucose (mg/dL) 138 H 143 H 132 H (70-110) mg/dL Calcium (8.4-10.2) mg/dL Alkaline Phosphatase (38-126) U/L Total Protein (6.3-8.2) g/dL Albumin (3.5-5.0) g/dL 09/17/24 09/17/24 09/17/24 Range/Units 03:30 06:35 11:28 Sodium 136 L (137-145) mmol/L Creatinine 0.47 L (0.66-1.25) mg/dL Glucose 140 H (74-99) mg/dL POC Glucose (mg/dL) 161 H 172 H (70-110) mg/dL Calcium 8.1 L (8.4-10.2) mg/dL Alkaline Phosphatase 261 H (38-126) U/L Total Protein 4.9 L (6.3-8.2) g/dL Albumin 2.6 L (3.5-5.0) g/dL
--- NOTE | 2024-09-17 16:23 | XR ---
EXAMINATION TYPE: XR abdomen 2V DATE OF EXAM: 09/17/2024 COMPARISON: Abdominal radiograph 09/16/2024, 09/10/2024, upper GI with small bowel 09/10/2024. HISTORY: Follow-up on clearance of barium, abdominal pain TECHNIQUE: Upright and supine images of the abdomen is obtained. 2 view. FINDINGS: Small bowel demonstrates no evidence for dilatation or air fluid levels. Residual enteric contrast is identified throughout the colon extending into the rectum. There is some progression of contrast into the transverse colon and rectum from prior exam. No convincing evidence for pneumoperitoneum. No unusual calcifications. The lung bases are clear. The osseous structures are intact. IMPRESSION: Overall nonobstructive bowel gas pattern. Residual enteric contrast remains throughout the colon with only slight overall progression from prior exam into the rectum. [facility], , 09/17/2024 4:20 PM
[2024-09-17 17:53] LABS: Glucose,Whole Blood 144 mg/dL (70-110)
[2024-09-17 23:55] LABS: Glucose,Whole Blood 168 mg/dL (70-110)
[2024-09-18 04:21] LABS: Basophils # (A) 0.04 10*3/uL (0.00-0.10); Basophils % (A) 0.6 %; Eosinophils # (A) 0.02 10*3/uL (0.04-0.35); Eosinophils % (A) 0.3 %; HCT 31.7 % (39.6-50.0); HGB 10.5 g/dL (13.0-17.0); Lymphocytes # (A) 0.51 10*3/uL (0.90-5.00); MCH 31.2 pg (27.0-32.0); MCHC 33.1 g/dL (32.0-37.0); MCV 94.1 fL (80.0-97.0); Mean Platelet Volume 11.4 fL (9.5-12.2); Monocytes # (A) 0.51 10*3/uL (0.20-1.00); Neutrophils # (A) 6.05 10*3/uL (1.80-7.70); Neutrophils % (A) 83.3 %; Platelet Count 153 10*3/uL (140-440); RBC 3.37 10*6/uL (4.40-5.60); WBC 7.26 10*3/uL (4.50-10.00)
[2024-09-18 04:44] LABS: African American GFR (CKD) >90 (>60 ml/min/1.73 sqM); Anion Gap 5 mmol/L; Blood Urea Nitrogen 15 mg/dL (9-20); Carbon Dioxide 27 mmol/L (22-30); Chloride 104 mmol/L (98-107); Glucose 155 mg/dL (74-99); Non-African American GFR(CKD) >90 (>60 ml/min/1.73 sqM); Sodium 136 mmol/L (137-145)
[2024-09-18 04:49] LABS: Magnesium 1.9 mg/dL (1.6-2.3); Phosphorus 2.4 mg/dL (2.5-4.5); Potassium 3.7 mmol/L (3.5-5.1)
--- NOTE | 2024-09-18 05:50 | P.PN ---
Subjective Progress Note Date: 09/17/24 68 years old male who was recently discharged from this facility about 4 days ago for nausea vomiting and malnutrition status post PEG tube placement by surgery team. Once he been discharged he started having recurrent nausea vomiting again, he vomited 6 times since yesterday with no blood. Associated with epigastric pain and tenderness His troponin was elevated but EKG showing SVT. He has been evaluated by semiconductor wafers saw operator as well during last admission for elevated troponin. Currently denies chest pain or dyspnea. No specific urinary symptoms. No headache dizziness weakness or numbness He is pain mainly in the epigastric area about 9/10 felt like squeezing nonradiating with no precipitating or relieving factors. He states that the pain is similar to last time. He has no bowel movement. He is using the PEG tube at home. He got Zofran 4 mg and is requesting more medicine He is hemodynamically stable and afebrile He has unremarkable CBC, BMP, LFT. WBC is mildly elevated at 10.4 at 11. Lactic acid 4.6 came back to normal at 1.7. Troponin is elevated 0.065. KUB showing nonspecific gas bowel pattern. EKG showed SVT with a rate of [address] depression in V3-V5 09/14/2024 Patient is seen and evaluated in room at bedside; continues to have episodes of vomiting; patient has PEG tube placed and currently is to suction with bilious output; remains on TPN Vital signs stable with temperature of 97.4, pulse 82, respirations 16 and blood pressure 134/86, O2 saturation 98% on room air Lab review reveals sodium of 138, potassium 2.9, BUNs/creatinine of 6/0.41, blood glucose ranging between 130-160, magnesium low at 1.5 -Electrolyte replacement has been ordered - General Surgery on board; patient continues to have nausea and vomiting; likely related to recurrent hiatal hernia or possible internal hernia; surgery recommending repeat CT of the chest and abdomen on Monday - Continue with TPN at this time 09/15/2024 Patient is seen and evaluated again to follow-up on intractable nausea and vomiting; reports no vomiting since yesterday; remains on TPN Vital signs are stable with temperature 98.1, pulse 63, respirations 17 and blood pressure 118/79 Lab review shows WBC of 6.6, hemoglobin of 11 and platelet count of 298, sodium 136, potassium 3.4, BUNs/creatinine of 8/2.47 and blood glucose of 103 -Surgery to clear patient for tube feed 09/16/2024 Patient seen in follow-up today with general surgery following. Patient maintained on TPN and per general surgery okay to initiate tube feeds again and monitor for tolerance. Potassium slightly low and will replace per protocol follow-up BMP in the a.m. Electrolytes being closely monitored and adjusted per dietary and pharmacy due to TPN as well. Patient continues to have clearish frothy phlegm spit up with nausea and denies any vomiting at this time. No further bleeding noted and hemoglobin is stable. Continued barium residual and is being started on bowel regimen as patient has not had a bowel movement in a few days and recommend repeat CT to evaluate once barium has been cleared. Patient is afebrile with no reports of chest pain or shortness of breath. 09/17/2024 Patient is seen in follow-up today with general surgery following. Patient is continued to be n.p.o. and maintained on TPN. Tube feeds were initiated yesterday although apparently patient had been vomiting and not tolerating and tube feeds currently on hold. Repeat abdominal x-ray noted to continue to have barium noted in the colon and awaiting clearance for repeat CT to assess hernia. No immediate plans for surgical intervention although waiting these further images to discuss the possibility of a need for hernia repair. Patient is extremely weak and would recommend PT/OT therapy. Zosyn was started per surgery team, will monitor closely for aspiration and strongly recommend aspiration precautions with head of the bed elevated 35 to 45 degrees at all times review of systems: Constitutional: reports of fatigue, no fever, or chills Cardiovascular: No reports of chest pain or palpitations Respiratory: No reports of shortness of breath or cough GI: reports of continued constant nausea, denies vomiting, but is dry heaving and spitting up frothy clear liquid, denies having a bowel movement over the last few days : No reports of dysuria or retention Neurovascular: reports of generalized weakness All medications have been reviewed Physical exam: Gen: This is a 68-year-old male who is asleep although easily arousable, alert and oriented x 3, thin built, elderly appearing, ill-appearing, cachectic HEENT: Head is atraumatic, normocephalic. Pupils equal, round. Sclerae is a nicteric. NECK: Supple. No JVD. No lymphadenopathy. No thyromegaly. LUNGS: Diminished breath sounds bilaterally otherwise clear to auscultation. No wheezes or rhonchi. No intercostal retractions. HEART: S1, S2 are muffled ABDOMEN: Soft. Thin. Bowel sounds are present. No masses. No tenderness. PEG tube noted EXTREMITIES: No pedal edema. No calf tenderness. NEUROLOGICAL: Patient is awake, alert and oriented x3. Cranial nerves 2 through 12 are grossly intact. Assessment Hematemesis with concerns of possible GI bleed, now resolved Recurrent nausea vomiting, intractable requiring PEG tube placement during last admission multifactorial likely secondary to intermittent internal hernia as well as significant history of esophageal dysmotility disorder Epigastric pain and tenderness likely secondary to gastritis Elevated troponin could be secondary to dehydration, evaluated by cardiology during last admission Severe calorie protein malnutrition with a BMI of 18.6 Hypertension Hyperlipidemia Anxiety/depression, not on active issue Distal esophagitis Hiatal hernia history GI prophylaxis DVT prophylaxis Full code Plan: Patient is continued on gentle hydration and IV Protonix continues on TPN although will be weaned General surgery following with no plans of intervention at this time recommending repeat CT in the next couple of days to assess if barium has moved through the colon and to further evaluate hiatal hernia. Continue bowel regimen scheduled until having bowel movements as patient also notes he has not had a bowel movement in a few days Patient continues with nausea and dry heaving and will be n.p.o. for now, tube feedings were started yesterday although not tolerating and currently held, continue TPN Continue with Zofran and Reglan which he is getting [id number] Encouraged increase activity as tolerated with sitting up out of the bed more often and in the chair. Patient is significantly weak and will have PT/T therapy evaluate the patient Prognosis is guarded The impression and plan of care has been dictated by Yanira Linda, Nurse Practitioner as directed. Dr. Bentley MD I have performed a history and examination and MDM of this patient, discussed the same with the dictator, and agree with the dictator's assessment and plan as written ,documented as a scribe. Based on total visit time, I have performed more than 50% of the visit. Objective - Vital Signs Vital signs: Vital Signs Temp 98.5 F 09/17/24 07:33 Pulse 107 H 09/17/24 07:33 Resp 19 09/17/24 07:33 BP 116/79 09/17/24 07:33 Pulse Ox 98 09/17/24 07:33 FiO2 Intake & Output 09/16/24 09/17/24 09/17/24 18:59 06:59 18:59 Weight 55.6 kg 55 kg Other: Voiding Method Urinal - Labs CBC & Chem 7: 09/18/24 03:17 09/18/24 03:17 Labs: Abnormal Lab Results - Last 24 Hours (Table) 09/16/24 09/16/24 09/16/24 Range/Units 13:55 16:51 22:33 Sodium (137-145) mmol/L Creatinine (0.66-1.25) mg/dL Glucose (74-99) mg/dL POC Glucose (mg/dL) 163 H 138 H 143 H (70-110) mg/dL Calcium (8.4-10.2) mg/dL Alkaline Phosphatase (38-126) U/L Total Protein (6.3-8.2) g/dL Albumin (3.5-5.0) g/dL 09/16/24 09/17/24 09/17/24 Range/Units 23:30 03:30 06:35 Sodium 136 L (137-145) mmol/L Creatinine 0.47 L (0.66-1.25) mg/dL Glucose 140 H (74-99) mg/dL POC Glucose (mg/dL) 132 H 161 H (70-110) mg/dL Calcium 8.1 L (8.4-10.2) mg/dL Alkaline Phosphatase 261 H (38-126) U/L Total Protein 4.9 L (6.3-8.2) g/dL Albumin 2.6 L (3.5-5.0) g/dL
[2024-09-18 06:28] LABS: Glucose,Whole Blood 153 mg/dL (70-110)
[2024-09-18 11:05] LABS: Glucose,Whole Blood 182 mg/dL (70-110)
--- NOTE | 2024-09-18 12:45 | P.PN ---
Subjective Progress Note Date: 09/18/24 SURGICAL PROGRESS NOTE CHIEF COMPLAINT: Recurrent nausea and vomiting HISTORY OF PRESENT ILLNESS: Patient is not feeling well. Patient had vomiting again this morning after meds were given through the PEG tube. He denies any abdominal pain. He does complain of feeling nauseous and requiring the Zofran and Reglan scheduled. Denies any abdominal pain. He is having diarrhea. Abdominal x-ray reports overall nonobstructive bowel gas pattern. Residual enteric contrast remains throughout the colon with only slight overall progression from prior exam into the rectum. Tachycardic. Heart rate 124. Afebrile. PHYSICAL EXAM: VITAL SIGNS: Reviewed. GENERAL: Well-developed in no acute distress. ABDOMEN: Soft. Nondistended. Nontender. PEG tube site clean dry and intact. NEUROLOGIC: Alert and oriented. Cranial nerves II through XII grossly intact. ASSESSMENT: 1. Upper GI bleed with bright red blood and coffee-ground emesis. now resolved 2. Intermittent internal hernia 3. Intractable nausea and vomiting 4. History of esophageal dysmotility disorder 5. Hiatal hernia 6. Esophagitis 7. Severe protein calorie malnutrition PLAN: -Soapsuds enema ordered to help clear out the barium contrast -Place PEG tube to drainage due to patient's increased vomiting -Hold on placing medication down the PEG tube. Will discontinue the lactulose and colace. Patient is vomiting these medications when placed down peg. -Continue TPN for nutrition support -Tube feeds on hold Physician Linux Engineer note has been reviewed by physician. Signing provider agrees with the documented findings, assessment, and plan of care. Objective - Vital Signs Vital signs: Vital Signs Temp 99.1 F 09/18/24 07:08 Pulse 124 H 09/18/24 07:08 Resp 17 09/18/24 07:08 BP 126/88 09/18/24 07:08 Pulse Ox 99 09/18/24 07:08 FiO2 Intake & Output 09/17/24 09/18/24 09/18/24 18:59 06:59 18:59 Intake Total 1740 Output Total 1250 Balance 490 Weight 55 kg 51 kg Intake: Intake, IV Titration 1740 Amount Dextrose 5%-0.9% NaCl 1, 900 000 ml @ 75 mls/hr IV . [id number] [facility] Rx#:[id number] Mvi, Adult No.4 with Vit 840 K 10 ml Trace (Conc-1Ml/ Dose) 1 ml In Amino Acid 5%-D20w+Lytes*E* 1,000 ml @ 70 mls/hr IV .BY DURATION [facility] Rx#: [id number] Output: Urine 1250 Other: Voiding Method Urinal # Voids 1 - Labs CBC & Chem 7: 09/18/24 03:17 09/18/24 03:17 Labs: Abnormal Lab Results - Last 24 Hours (Table) 09/17/24 09/17/24 09/18/24 Range/Units 17:52 23:54 03:17 RBC (4.40-5.60) 10*6/uL Hgb (13.0-17.0) g/dL Hct (39.6-50.0) % RDW (11.5-14.5) % Immature Gran # (0.00-0.04) 10*3/uL Lymphocytes # (0.90-5.00) 10*3/uL Eosinophils # (0.04-0.35) 10*3/uL Sodium 136 L (137-145) mmol/L Creatinine 0.42 L (0.66-1.25) mg/dL Glucose 155 H (74-99) mg/dL POC Glucose (mg/dL) 144 H 168 H (70-110) mg/dL Calcium 8.0 L (8.4-10.2) mg/dL Phosphorus 2.4 L (2.5-4.5) mg/dL 09/18/24 09/18/24 09/18/24 Range/Units 03:17 06:27 11:03 RBC 3.37 L (4.40-5.60) 10*6/uL Hgb 10.5 L (13.0-17.0) g/dL Hct 31.7 L (39.6-50.0) % RDW 20.0 H (11.5-14.5) % Immature Gran # 0.13 H (0.00-0.04) 10*3/uL Lymphocytes # 0.51 L (0.90-5.00) 10*3/uL Eosinophils # 0.02 L (0.04-0.35) 10*3/uL Sodium (137-145) mmol/L Creatinine (0.66-1.25) mg/dL Glucose (74-99) mg/dL POC Glucose (mg/dL) 153 H 182 H (70-110) mg/dL Calcium (8.4-10.2) mg/dL Phosphorus (2.5-4.5) mg/dL
[2024-09-18 17:10] LABS: Glucose,Whole Blood 152 mg/dL (70-110)
[2024-09-18] MEDS: 1: MVI, ADULT NO.4 WITH VIT K 10 ML, TRACE (CONC-1ML/DOSE) 1 ML, POTASSIUM PHOSPHATE 9 M IV SCH (17:38)
[2024-09-19 00:18] LABS: Glucose,Whole Blood 167 mg/dL (70-110)
--- NOTE | 2024-09-19 05:19 | P.PN ---
Subjective Progress Note Date: 09/18/24 68 years old male who was recently discharged from this facility about 4 days ago for nausea vomiting and malnutrition status post PEG tube placement by surgery team. Once he been discharged he started having recurrent nausea vomiting again, he vomited 6 times since yesterday with no blood. Associated with epigastric pain and tenderness His troponin was elevated but EKG showing SVT. He has been evaluated by manager inventory control as well during last admission for elevated troponin. Currently denies chest pain or dyspnea. No specific urinary symptoms. No headache dizziness weakness or numbness He is pain mainly in the epigastric area about 9/10 felt like squeezing nonradiating with no precipitating or relieving factors. He states that the pain is similar to last time. He has no bowel movement. He is using the PEG tube at home. He got Zofran 4 mg and is requesting more medicine He is hemodynamically stable and afebrile He has unremarkable CBC, BMP, LFT. WBC is mildly elevated at 10.4 at 11. Lactic acid 4.6 came back to normal at 1.7. Troponin is elevated 0.065. KUB showing nonspecific gas bowel pattern. EKG showed SVT with a rate of [address] depression in V3-V5 09/14/2024 Patient is seen and evaluated in room at bedside; continues to have episodes of vomiting; patient has PEG tube placed and currently is to suction with bilious output; remains on TPN Vital signs stable with temperature of 97.4, pulse 82, respirations 16 and blood pressure 134/86, O2 saturation 98% on room air Lab review reveals sodium of 138, potassium 2.9, BUNs/creatinine of 6/0.41, blood glucose ranging between 130-160, magnesium low at 1.5 -Electrolyte replacement has been ordered - General Surgery on board; patient continues to have nausea and vomiting; likely related to recurrent hiatal hernia or possible internal hernia; surgery recommending repeat CT of the chest and abdomen on Monday - Continue with TPN at this time 09/15/2024 Patient is seen and evaluated again to follow-up on intractable nausea and vomiting; reports no vomiting since yesterday; remains on TPN Vital signs are stable with temperature 98.1, pulse 63, respirations 17 and blood pressure 118/79 Lab review shows WBC of 6.6, hemoglobin of 11 and platelet count of 298, sodium 136, potassium 3.4, BUNs/creatinine of 8/2.47 and blood glucose of 103 -Surgery to clear patient for tube feed 09/16/2024 Patient seen in follow-up today with general surgery following. Patient maintained on TPN and per general surgery okay to initiate tube feeds again and monitor for tolerance. Potassium slightly low and will replace per protocol follow-up BMP in the a.m. Electrolytes being closely monitored and adjusted per dietary and pharmacy due to TPN as well. Patient continues to have clearish frothy phlegm spit up with nausea and denies any vomiting at this time. No further bleeding noted and hemoglobin is stable. Continued barium residual and is being started on bowel regimen as patient has not had a bowel movement in a few days and recommend repeat CT to evaluate once barium has been cleared. Patient is afebrile with no reports of chest pain or shortness of breath. 09/17/2024 Patient is seen in follow-up today with general surgery following. Patient is continued to be n.p.o. and maintained on TPN. Tube feeds were initiated yesterday although apparently patient had been vomiting and not tolerating and tube feeds currently on hold. Repeat abdominal x-ray noted to continue to have barium noted in the colon and awaiting clearance for repeat CT to assess hernia. No immediate plans for surgical intervention although waiting these further images to discuss the possibility of a need for hernia repair. Patient is extremely weak and would recommend PT/OT therapy. Zosyn was started per surgery team, will monitor closely for aspiration and strongly recommend aspiration precautions with head of the bed elevated 35 to 45 degrees at all times 09/18/2024 Patient is seen in follow-up today continues to have significant nausea with dry heaving and spitting up frothy secretions. Patient is maintained on TPN and PEG tube feedings are on hold and also medications through the PEG tube are being held. Patient is n.p.o. and will continue. Per surgery PEG tube to drainage with strict intake and output. Patient maintained on antibiotics and tachycardic, EKG being obtained. Repeat abdominal x-ray continues show contrast minimally moved towards the rectum and is being started on enema per surgery. Plan for repeat CT once contrast is cleared to evaluate hiatal hernia. review of systems: Constitutional: reports of fatigue, no fever, or chills Cardiovascular: No reports of chest pain or palpitations Respiratory: No reports of shortness of breath or cough GI: reports of continued constant nausea, denies vomiting, but is dry heaving and spitting up frothy clear liquid, denies having a bowel movement over the last few days : No reports of dysuria or retention Neurovascular: reports of generalized weakness All medications have been reviewed Physical exam: Gen: This is a 68-year-old male who is asleep although easily arousable, alert and oriented x 3, thin built, elderly appearing, ill-appearing, cachectic HEENT: Head is atraumatic, normocephalic. Pupils equal, round. Sclerae is anicteric. NECK: Supple. No JVD. No lymphadenopathy. No thyromegaly. LUNGS: Diminished breath sounds bilaterally otherwise clear to auscultation. No wheezes or rhonchi. No intercostal retractions. HEART: S1, S2 are muffled ABDOMEN: Soft. Thin. Bowel sounds are present. No masses. No tenderness. PEG tube noted to drainage EXTREMITIES: No pedal edema. No calf tenderness. NEUROLOGICAL: Patient is awake, alert and oriented x3. Cranial nerves 2 through 12 are grossly intact. Assessment Hematemesis with concerns of possible GI bleed, now resolved Recurrent nausea vomiting, intractable requiring PEG tube placement during last admission multifactorial likely secondary to intermittent internal hernia as well as significant history of esophageal dysmotility disorder Epigastric pain and tenderness likely secondary to gastritis Elevated troponin could be secondary to dehydration, evaluated by cardiology during last admission Severe calorie protein malnutrition with a BMI of 18.6 Hypertension Hyperlipidemia Anxiety/depression, was evaluated by psychiatry Distal esophagitis Hiatal hernia history GI prophylaxis DVT prophylaxis Full code Plan: Patient is continued on gentle hydration and IV Protonix continues on TPN although will be weaned General surgery following with no plans of intervention at this time recommending repeat CT in the next couple of days to assess if barium has moved through the colon and to further evaluate hiatal hernia. Continue bowel regimen scheduled until having bowel movements as patient also notes he has not had a bowel movement in a few days Patient continues with nausea and dry heaving and will be n.p.o. for now, tube feedings were started yesterday although not tolerating and currently held, continue TPN. Tube feedings being held per surgery and PEG tube to drainage recommend strict intake and output. Patient also will be given a soapsuds enema per surgery. Continue with Zofran and Reglan which he is getting [id number] Encouraged increase activity as tolerated with sitting up out of the bed more of ten and in the chair. Patient is significantly weak and will have PT/T therapy evaluate the patient Prognosis is guarded The impression and plan of care has been dictated by Yanira Linda, Nurse Practitioner as directed. Dr. Bentley MD I have performed a history and examination and MDM of this patient, discussed the same with the dictator, and agree with the dictator's assessment and plan as written ,documented as a scribe. Based on total visit time, I have performed more than 50% of the visit. Objective - Vital Signs Vital signs: Vital Signs Temp 99.1 F 09/18/24 07:08 Pulse 124 H 09/18/24 07:08 Resp 17 09/18/24 07:08 BP 126/88 09/18/24 07:08 Pulse Ox 99 09/18/24 07:08 FiO2 Intake & Output 09/17/24 09/18/24 09/18/24 18:59 06:59 18:59 Intake Total 1740 Output Total 1250 Balance 490 Weight 55 kg 51 kg Intake: Intake, IV Titration 1740 Amount Dextrose 5%-0.9% NaCl 1, 900 000 ml @ 75 mls/hr IV . [id number] GIRISH Rx#:[id number] Mvi, Adult No.4 with Vit 840 K 10 ml Trace (Conc-1Ml/ Dose) 1 ml In Amino Acid 5%-D20w+Lytes*E* 1,000 ml @ 70 mls/hr IV .BY DURATION GIRISH Rx#: [id number] Output: Urine 1250 Other: Voiding Method Urinal # Voids 1 - Labs CBC & Chem 7: 09/18/24 03:17 09/18/24 03:17 Labs: Abnormal Lab Results - Last 24 Hours (Table) 09/17/24 09/17/24 09/17/24 Range/Units 11:28 17:52 23:54 RBC (4.40-5.60) 10*6/uL Hgb (13.0-17.0) g/dL Hct (39.6-50.0) % RDW (11.5-14.5) % Immature Gran # (0.00-0.04) 10*3/uL Lymphocytes # (0.90-5.00) 10*3/uL Eosinophils # (0.04-0.35) 10*3/uL Sodium (137-145) mmol/L Creatinine (0.66-1.25) mg/dL Glucose (74-99) mg/dL POC Glucose (mg/dL) 172 H 144 H 168 H (70-110) mg/dL Calcium (8.4-10.2) mg/dL Phosphorus (2.5-4.5) mg/dL 09/18/24 09/18/24 09/18/24 Range/Units 03:17 03:17 06:27 RBC 3.37 L (4.40-5.60) 10*6/uL Hgb 10.5 L (13.0-17.0) g/dL Hct 31.7 L (39.6-50.0) % RDW 20.0 H (11.5-14.5) % Immature Gran # 0.13 H (0.00-0.04) 10*3/uL Lymphocytes # 0.51 L (0.90-5.00) 10*3/uL Eosinophils # 0.02 L (0.04-0.35) 10*3/uL Sodium 136 L (137-145) mmol/L Creatinine 0.42 L (0.66-1.25) mg/dL Glucose 155 H (74-99) mg/dL POC Glucose (mg/dL) 153 H (70-110) mg/dL Calcium 8.0 L (8.4-10.2) mg/dL Phosphorus 2.4 L (2.5-4.5) mg/dL
[2024-09-19 06:04] LABS: Glucose,Whole Blood 175 mg/dL (70-110)
[2024-09-19 06:40] LABS: African American GFR (CKD) >90 (>60 ml/min/1.73 sqM); Anion Gap 4 mmol/L; Blood Urea Nitrogen 14 mg/dL (9-20); Calcium 8.4 mg/dL (8.4-10.2); Carbon Dioxide 31 mmol/L (22-30); Chloride 101 mmol/L (98-107); Glucose 154 mg/dL (74-99); Magnesium 1.9 mg/dL (1.6-2.3); Non-African American GFR(CKD) >90 (>60 ml/min/1.73 sqM); Phosphorus 3.1 mg/dL (2.5-4.5); Sodium 136 mmol/L (137-145)
[2024-09-19] MEDS: POTASSIUM CHLORIDE 10 MEQ in WATER FOR INJECTION 1 100ML.BAG IVPB SCH (09:06)
[2024-09-19 11:50] LABS: Glucose,Whole Blood 162 mg/dL (70-110)
--- NOTE | 2024-09-19 12:26 | P.PN ---
Subjective Progress Note Date: 09/19/24 SURGICAL PROGRESS NOTE CHIEF COMPLAINT: Recurrent nausea and vomiting HISTORY OF PRESENT ILLNESS: Patient reports she is feeling little better today. PEG tube is to drainage. Patient had about 300 mL clearish drainage from PEG tube. He did receive a soapsuds enema yesterday with no results. Denies any abdominal pain. He continues to have nausea. Low-grade temp of 99.7. Mildly tachycardic. Potassium 3.0 magnesium 1.9 PHYSICAL EXAM: VITAL SIGNS: Reviewed. GENERAL: Well-developed in no acute distress. ABDOMEN: Soft. Nondistended. Nontender. PEG tube site clean dry and intact. NEUROLOGIC: Alert and oriented. Cranial nerves II through XII grossly intact. ASSESSMENT: 1. Upper GI bleed with bright red blood and coffee-ground emesis. now resolved 2. Intermittent internal hernia 3. Intractable nausea and vomiting 4. History of esophageal dysmotility disorder 5. Hiatal hernia 6. Esophagitis 7. Severe protein calorie malnutrition PLAN: -Another soapsuds enema ordered to help clear out the barium contrast -Repeat abdominal x-ray -Continue PEG tube to drainage -Awaiting barium to clear before ordering CT scan abdomen and pelvis to evaluate for the intermittent internal hernia -Continue TPN for nutrition support - Potassium being replaced Physician Surgical Manager note has been reviewed by physician. Signing provider agrees with the documented findings, assessment, and plan of care. Objective - Vital Signs Vital signs: Vital Signs Temp 98.7 F 09/19/24 07:20 Pulse 98 09/19/24 07:20 Resp 16 09/19/24 07:20 BP 114/76 09/19/24 07:20 Pulse Ox 97 09/19/24 07:20 FiO2 Intake & Output 09/18/24 09/19/24 09/19/24 18:59 06:59 18:59 Output Total 700 Balance -700 Weight 57 kg Output: Urine 700 Other: Voiding Method Urinal Urinal - Labs CBC & Chem 7: 09/18/24 03:17 09/19/24 05:57 Labs: Abnormal Lab Results - Last 24 Hours (Table) 09/18/24 09/19/24 09/19/24 Range/Units 17:08 00:17 05:57 Sodium 136 L (137-145) mmol/L Potassium 3.0 L (3.5-5.1) mmol/L Carbon Dioxide 31 H (22-30) mmol/L Creatinine 0.46 L (0.66-1.25) mg/dL Glucose 154 H (74-99) mg/dL POC Glucose (mg/dL) 152 H 167 H (70-110) mg/dL 09/19/24 09/19/24 Range/Units 06:03 11:48 Sodium (137-145) mmol/L Potassium (3.5-5.1) mmol/L Carbon Dioxide (22-30) mmol/L Creatinine (0.66-1.25) mg/dL Glucose (74-99) mg/dL POC Glucose (mg/dL) 175 H 162 H (70-110) mg/dL
[2024-09-19 17:33] LABS: Glucose,Whole Blood 141 mg/dL (70-110)
[2024-09-19 23:41] LABS: Glucose,Whole Blood 166 mg/dL (70-110)
--- NOTE | 2024-09-20 04:16 | P.PN ---
Subjective Progress Note Date: 09/19/24 68 years old male who was recently discharged from this facility about 4 days ago for nausea vomiting and malnutrition status post PEG tube placement by surgery team. Once he been discharged he started having recurrent nausea vomiting again, he vomited 6 times since yesterday with no blood. Associated with epigastric pain and tenderness His troponin was elevated but EKG showing SVT. He has been evaluated by lithographic photographer apprentice as well during last admission for elevated troponin. Currently denies chest pain or dyspnea. No specific urinary symptoms. No headache dizziness weakness or numbness He is pain mainly in the epigastric area about 9/10 felt like squeezing nonradiating with no precipitating or relieving factors. He states that the pain is similar to last time. He has no bowel movement. He is using the PEG tube at home. He got Zofran 4 mg and is requesting more medicine He is hemodynamically stable and afebrile He has unremarkable CBC, BMP, LFT. WBC is mildly elevated at 10.4 at 11. Lactic acid 4.6 came back to normal at 1.7. Troponin is elevated 0.065. KUB showing nonspecific gas bowel pattern. EKG showed SVT with a rate of [address] depression in V3-V5 09/14/2024 Patient is seen and evaluated in room at bedside; continues to have episodes of vomiting; patient has PEG tube placed and currently is to suction with bilious output; remains on TPN Vital signs stable with temperature of 97.4, pulse 82, respirations 16 and blood pressure 134/86, O2 saturation 98% on room air Lab review reveals sodium of 138, potassium 2.9, BUNs/creatinine of 6/0.41, blood glucose ranging between 130-160, magnesium low at 1.5 -Electrolyte replacement has been ordered - General Surgery on board; patient continues to have nausea and vomiting; likely related to recurrent hiatal hernia or possible internal hernia; surgery recommending repeat CT of the chest and abdomen on Monday - Continue with TPN at this time 09/15/2024 Patient is seen and evaluated again to follow-up on intractable nausea and vomiting; reports no vomiting since yesterday; remains on TPN Vital signs are stable with temperature 98.1, pulse 63, respirations 17 and blood pressure 118/79 Lab review shows WBC of 6.6, hemoglobin of 11 and platelet count of 298, sodium 136, potassium 3.4, BUNs/creatinine of 8/2.47 and blood glucose of 103 -Surgery to clear patient for tube feed 09/16/2024 Patient seen in follow-up today with general surgery following. Patient maintained on TPN and per general surgery okay to initiate tube feeds again and monitor for tolerance. Potassium slightly low and will replace per protocol follow-up BMP in the a.m. Electrolytes being closely monitored and adjusted per dietary and pharmacy due to TPN as well. Patient continues to have clearish frothy phlegm spit up with nausea and denies any vomiting at this time. No further bleeding noted and hemoglobin is stable. Continued barium residual and is being started on bowel regimen as patient has not had a bowel movement in a few days and recommend repeat CT to evaluate once barium has been cleared. Patient is afebrile with no reports of chest pain or shortness of breath. 09/17/2024 Patient is seen in follow-up today with general surgery following. Patient is continued to be n.p.o. and maintained on TPN. Tube feeds were initiated yesterday although apparently patient had been vomiting and not tolerating and tube feeds currently on hold. Repeat abdominal x-ray noted to continue to have barium noted in the colon and awaiting clearance for repeat CT to assess hernia. No immediate plans for surgical intervention although waiting these further images to discuss the possibility of a need for hernia repair. Patient is extremely weak and would recommend PT/OT therapy. Zosyn was started per surgery team, will monitor closely for aspiration and strongly recommend aspiration precautions with head of the bed elevated 35 to 45 degrees at all times 09/18/2024 Patient is seen in follow-up today continues to have significant nausea with dry heaving and spitting up frothy secretions. Patient is maintained on TPN and PEG tube feedings are on hold and also medications through the PEG tube are being held. Patient is n.p.o. and will continue. Per surgery PEG tube to drainage with strict intake and output. Patient maintained on antibiotics and tachycardic, EKG being obtained. Repeat abdominal x-ray continues show contrast minimally moved towards the rectum and is being started on enema per surgery. Plan for repeat CT once contrast is cleared to evaluate hiatal hernia. 09/19/2024 Patient is seen in follow-up this morning with general surgery following continued on PEG tube to drainage with n.p.o. and holding tube feeds at this time. Patient is continued on TPN and tolerating thus far. Patient continues to report he is dry heaving and spitting up and frequently with hiccups as well. Plan is for repeat soapsuds enema and follow-up abdominal x-rays tomorrow to assess if contrast has moved as general surgery would like to obtain CT for hernia evaluation. Patient is lethargic although arousable is alert and oriented responding to questions and commands appropriately. Patient encouraged to increase activity as tolerated and sit up out of the bed more frequently. Patient has been laying in bed and mostly sleeping during this hospitalization. review of systems: Constitutional: reports of fatigue, no fever, or chills Cardiovascular: No reports of chest pain or palpitations Respiratory: No reports of shortness of breath or cough GI: reports of continued constant nausea, denies vomiting, but is dry heaving and spitting up frothy clear liquid, denies having a bowel movement over the last few days : No reports of dysuria or retention Neurovascular: reports of generalized weakness All medications have been reviewed Physical exam: Gen: This is a 68-year-old male who is asleep although easily arousable, alert and oriented x 3, thin built, elderly appearing, ill-appearing, cachectic HEENT: Head is atraumatic, normocephalic. Pupils equal, round. Sclerae is anicteric. NECK: Supple. No JVD. No lymphadenopathy. No thyromegaly. LUNGS: Diminished breath sounds bilaterally otherwise clear to auscultation. No wheezes or rhonchi. No intercostal retractions. HEART: S1, S2 are muffled ABDOMEN: Soft. Thin. Bowel sounds are present. No masses. No tenderness. PEG tube noted to drainage EXTREMITIES: No pedal edema. No calf tenderness. NEUROLOGICAL: Patient is alert and oriented x3. Appears depressed, flat affect cranial nerves 2 through 12 are grossly intact. Assessment Hematemesis with concerns of possible GI bleed, now resolved Recurrent nausea vomiting, intractable requiring PEG tube placement during last admission multifactorial likely secondary to intermittent internal hernia as well as significant history of esophageal dysmotility disorder Epigastric pain and tenderness likely secondary to gastritis Elevated troponin could be secondary to dehydration, evaluated by cardiology during last admission Severe calorie protein malnutrition with a BMI of 18.6 Hypertension Hyperlipidemia Anxiety/depression, was evaluated by psychiatry Distal esophagitis Hiatal hernia history GI prophylaxis DVT prophylaxis Full code Plan: Patient is continued on gentle hydration and IV Protonix continues on TPN, currently n.p.o. and tube feeds are on hold and PEG tube is continued to drainage per general surgery General surgery following with no plans of intervention at this time recommending repeat CT in the next couple of days to assess if barium has moved through the colon and to further evaluate hiatal hernia. Continue bowel regimen scheduled until having bowel movements as patient also notes he has not had a bowel movement in a few days. Soapsuds enema ordered Patient continues with nausea and dry heaving and will be n.p.o. for now, tube feedings were started yesterday although not tolerating and currently held, con tinue TPN. Tube feedings being held per surgery and PEG tube to drainage recommend strict intake and output. Continue with Zofran and Reglan which he is getting [id number] Encouraged increase activity as tolerated with sitting up out of the bed more often and in the chair. Patient is significantly weak and will have PT/T therapy evaluate the patient. Patient has been mostly lying in the bed and sleeping throughout most of the day. Overall prognosis is guarded The impression and plan of care has been dictated by Yanira Linda, Nurse Practitioner as directed. Dr. Bentley MD I have performed a history and examination and MDM of this patient, discussed the same with the dictator, and agree with the dictator's assessment and plan as written ,documented as a scribe. Based on total visit time, I have performed more than 50% of the visit. Objective - Vital Signs Vital signs: Vital Signs Temp 98.4 F 09/20/24 01:14 Pulse 102 H 09/20/24 01:14 Resp 18 09/20/24 01:14 BP 125/78 09/20/24 01:14 Pulse Ox 96 09/20/24 01:14 FiO2 Intake & Output 09/19/24 09/19/24 09/20/24 06:59 18:59 06:59 Intake Total 1003 Output Total 700 610 Balance -700 -610 1003 Weight 57 kg 57 kg Intake: Intake, IV Titration 1003 Amount Potassium Phosphate 9 1003 mmol In Amino Acid 5%- D20w+Lytes*E* 1,000 ml @ 70 mls/hr IV .BY DURATION GIRISH Rx#:[id number] Output: Urine 700 610 Other: Voiding Method Urinal # Bowel Movements 1 - Labs CBC & Chem 7: 09/18/24 03:17 09/19/24 16:25 Labs: Abnormal Lab Results - Last 24 Hours (Table) 09/19/24 09/19/24 09/19/24 Range/Units 05:57 06:03 11:48 Sodium 136 L (137-145) mmol/L Potassium 3.0 L (3.5-5.1) mmol/L Carbon Dioxide 31 H (22-30) mmol/L Creatinine 0.46 L (0.66-1.25) mg/dL Glucose 154 H (74-99) mg/dL POC Glucose (mg/dL) 175 H 162 H (70-110) mg/dL 09/19/24 09/19/24 Range/Units 17:31 23:40 Sodium (137-145) mmol/L Potassium (3.5-5.1) mmol/L Carbon Dioxide (22-30) mmol/L Creatinine (0.66-1.25) mg/dL Glucose (74-99) mg/dL POC Glucose (mg/dL) 141 H 166 H (70-110) mg/dL
[2024-09-20 06:25] LABS: Glucose,Whole Blood 172 mg/dL (70-110)
[2024-09-20 07:05] LABS: Ionized Calcium 4.6 mg/dL (4.5-5.3)
[2024-09-20 07:14] LABS: African American GFR (CKD) >90 (>60 ml/min/1.73 sqM); Anion Gap 6 mmol/L; Blood Urea Nitrogen 20 mg/dL (9-20); Calcium 8.5 mg/dL (8.4-10.2); Carbon Dioxide 29 mmol/L (22-30); Chloride 105 mmol/L (98-107); Glucose 158 mg/dL (74-99); Non-African American GFR(CKD) >90 (>60 ml/min/1.73 sqM); Phosphorus 3.7 mg/dL (2.5-4.5); Potassium 3.8 mmol/L (3.5-5.1); Sodium 140 mmol/L (137-145)
--- NOTE | 2024-09-20 07:55 | XR ---
EXAMINATION TYPE: XR abdomen 2V DATE OF EXAM: 09/20/2024 6:53 AM COMPARISON: 09/17/2024 CLINICAL INDICATION: Male, 68 years old with history of follow up on barium clearance; [facility] TECHNIQUE: Two views of the abdomen were obtained. FINDINGS: Lung bases are clear. No evidence for free intraperitoneal air. Residual scattered barium contrast throughout the colon though with some interval clearing compared t o 09/17/2024. PEG tube in place. No dilated small bowel loops are seen. IMPRESSION: Residual barium contrast remains scattered throughout the colon. Slight interval clearing from prior. PEG tube visualized. Overall nonobstructive bowel gas pattern. [facility], Workstation: [facility], 09/20/2024 7:53 AM
[2024-09-20 11:24] LABS: Glucose,Whole Blood 132 mg/dL (70-110)
[2024-09-20] MEDS: 1: MVI, ADULT NO.4 WITH VIT K 10 ML, TRACE (CONC-1ML/DOSE) 1 ML, POTASSIUM PHOSPHATE 9 M IV SCH (11:28)
[2024-09-20] MEDS ORDERED: PEG 3350 (236 GM/BTL) + LYTES 4,000 ML BOTTLE PO ONE (12:30)
--- NOTE | 2024-09-20 12:57 | P.PN ---
Subjective Progress Note Date: 09/20/24 Patient still has significant barium on his flatplate. On exam vital signs appear stable. Abdomen soft. Patient still has complaints of nausea. Patient received GoLytely over the weekend. We will repeat his flatplate on Monday. If the barium has sufficiently cleared we will schedule him for a CAT scan to evaluate for possible internal hernia. Objective - Vital Signs Vital signs: Vital Signs Temp 98.8 F 09/20/24 07:02 Pulse 111 H 09/20/24 07:02 Resp 16 09/20/24 07:02 BP 109/77 09/20/24 07:02 Pulse Ox 97 09/20/24 07:02 FiO2 Intake & Output 09/19/24 09/20/24 09/20/24 18:59 06:59 18:59 Intake Total 1003 Output Total 610 600 Balance -610 403 Weight 57 kg 55.5 kg Intake: Intake, IV Titration 1003 Amount Potassium Phosphate 9 1003 mmol In Amino Acid 5%- D20w+Lytes*E* 1,000 ml @ 70 mls/hr IV .BY DURATION GIRISH Rx#:[id number] Output: Urine 610 600 Other: Voiding Method Urinal # Bowel Movements 1 - Labs CBC & Chem 7: 09/18/24 03:17 09/20/24 06:24 Labs: Abnormal Lab Results - Last 24 Hours (Table) 09/19/24 09/19/24 09/20/24 Range/Units 17:31 23:40 06:23 Creatinine (0.66-1.25) mg/dL Glucose (74-99) mg/dL POC Glucose (mg/dL) 141 H 166 H 172 H (70-110) mg/dL 09/20/24 09/20/24 Range/Units 06:24 11:22 Creatinine 0.59 L (0.66-1.25) mg/dL Glucose 158 H (74-99) mg/dL POC Glucose (mg/dL) 132 H (70-110) mg/dL
[2024-09-20] MEDS: PEG 3350 (236 GM/BTL) + LYTES 4,000 ML BOTTLE PEJ/J-Tube ONE (13:25)
[2024-09-20] MEDS: ACETAMINOPHEN IV (For NPO) 1,000 MG in EMPTY BAG 1 BAG IVPB PRN (14:23)
--- NOTE | 2024-09-20 14:36 | XR ---
EXAMINATION TYPE: XR chest 1V portable DATE OF EXAM: 09/20/2024 2:29 PM COMPARISON: Chest radiographs from 09/12/2024 TECHNIQUE: XR chest 1V portable Portable AP radiograph of the chest. CLINICAL INDICATION:Male, 68 years old with history of shortness of breath; FINDINGS: Lungs/Pleura: There is no evidence of pleural effusion, focal consolidation, or pneumothorax. Pulmonary vascularity: Unremarkable. Heart/mediastinum: Cardiomediastinal silhouette is unremarkable. Musculoskeletal: No acute osseous pathology. Bilateral AC joint arthropathy. Post surgical changes at the right AC joint with cerclage wires. High riding bilateral humeral head suggesting chronic rotato r cuff tear. Other findings: None Lines/Tubes: Right PICC line in stable position with distal tip at the superior cavoatrial junction. IMPRESSION: 1. No acute cardiopulmonary disease/process. 2. Right PICC line in stable position. [facility], , 09/20/2024 2:34 PM
[2024-09-20 16:48] LABS: Glucose,Whole Blood 173 mg/dL (70-110)
[2024-09-20 20:49] LABS: Glucose,Whole Blood 143 mg/dL (70-110)
[2024-09-20] MEDS: FUROSEMIDE 10 MG/ML 2 ML VIAL IV ONE (23:16)
[2024-09-21 01:39] LABS: Glucose,Whole Blood 179 mg/dL (70-110)
[2024-09-21 05:12] LABS: African American GFR (CKD) >90 (>60 ml/min/1.73 sqM); Anion Gap 3 mmol/L; Blood Urea Nitrogen 29 mg/dL (9-20); Calcium 8.2 mg/dL (8.4-10.2); Carbon Dioxide 29 mmol/L (22-30); Chloride 109 mmol/L (98-107); Glucose 153 mg/dL (74-99); Magnesium 2.1 mg/dL (1.6-2.3); Non-African American GFR(CKD) >90 (>60 ml/min/1.73 sqM); Phosphorus 3.8 mg/dL (2.5-4.5); Potassium 3.3 mmol/L (3.5-5.1); Sodium 141 mmol/L (137-145)
[2024-09-21] MEDS: POTASSIUM CHLORIDE 20 MEQ in WATER FOR INJECTION 1 100ML.BAG IVPB SCH (06:19)
[2024-09-21 06:31] LABS: Glucose,Whole Blood 141 mg/dL (70-110)
--- NOTE | 2024-09-21 07:47 | P.PN ---
Subjective Progress Note Date: 09/20/24 68 years old male who was recently discharged from this facility about 4 days ago for nausea vomiting and malnutrition status post PEG tube placement by surgery team. Once he been discharged he started having recurrent nausea vomiting again, he vomited 6 times since yesterday with no blood. Associated with epigastric pain and tenderness His troponin was elevated but EKG showing SVT. He has been evaluated by chamfering machine operator as well during last admission for elevated troponin. Currently denies chest pain or dyspnea. No specific urinary symptoms. No headache dizziness weakness or numbness He is pain mainly in the epigastric area about 9/10 felt like squeezing nonradiating with no precipitating or relieving factors. He states that the pain is similar to last time. He has no bowel movement. He is using the PEG tube at home. He got Zofran 4 mg and is requesting more medicine He is hemodynamically stable and afebrile He has unremarkable CBC, BMP, LFT. WBC is mildly elevated at 10.4 at 11. Lactic acid 4.6 came back to normal at 1.7. Troponin is elevated 0.065. KUB showing nonspecific gas bowel pattern. EKG showed SVT with a rate of [address] depression in V3-V5 09/14/2024 Patient is seen and evaluated in room at bedside; continues to have episodes of vomiting; patient has PEG tube placed and currently is to suction with bilious output; remains on TPN Vital signs stable with temperature of 97.4, pulse 82, respirations 16 and blood pressure 134/86, O2 saturation 98% on room air Lab review reveals sodium of 138, potassium 2.9, BUNs/creatinine of 6/0.41, blood glucose ranging between 130-160, magnesium low at 1.5 -Electrolyte replacement has been ordered - General Surgery on board; patient continues to have nausea and vomiting; likely related to recurrent hiatal hernia or possible internal hernia; surgery recommending repeat CT of the chest and abdomen on Monday - Continue with TPN at this time 09/15/2024 Patient is seen and evaluated again to follow-up on intractable nausea and vomiting; reports no vomiting since yesterday; remains on TPN Vital signs are stable with temperature 98.1, pulse 63, respirations 17 and blood pressure 118/79 Lab review shows WBC of 6.6, hemoglobin of 11 and platelet count of 298, sodium 136, potassium 3.4, BUNs/creatinine of 8/2.47 and blood glucose of 103 -Surgery to clear patient for tube feed 09/16/2024 Patient seen in follow-up today with general surgery following. Patient maintained on TPN and per general surgery okay to initiate tube feeds again and monitor for tolerance. Potassium slightly low and will replace per protocol follow-up BMP in the a.m. Electrolytes being closely monitored and adjusted per dietary and pharmacy due to TPN as well. Patient continues to have clearish frothy phlegm spit up with nausea and denies any vomiting at this time. No further bleeding noted and hemoglobin is stable. Continued barium residual and is being started on bowel regimen as patient has not had a bowel movement in a few days and recommend repeat CT to evaluate once barium has been cleared. Patient is afebrile with no reports of chest pain or shortness of breath. 09/17/2024 Patient is seen in follow-up today with general surgery following. Patient is continued to be n.p.o. and maintained on TPN. Tube feeds were initiated yesterday although apparently patient had been vomiting and not tolerating and tube feeds currently on hold. Repeat abdominal x-ray noted to continue to have barium noted in the colon and awaiting clearance for repeat CT to assess hernia. No immediate plans for surgical intervention although waiting these further images to discuss the possibility of a need for hernia repair. Patient is extremely weak and would recommend PT/OT therapy. Zosyn was started per surgery team, will monitor closely for aspiration and strongly recommend aspiration precautions with head of the bed elevated 35 to 45 degrees at all times 09/18/2024 Patient is seen in follow-up today continues to have significant nausea with dry heaving and spitting up frothy secretions. Patient is maintained on TPN and PEG tube feedings are on hold and also medications through the PEG tube are being held. Patient is n.p.o. and will continue. Per surgery PEG tube to drainage with strict intake and output. Patient maintained on antibiotics and tachycardic, EKG being obtained. Repeat abdominal x-ray continues show contrast minimally moved towards the rectum and is being started on enema per surgery. Plan for repeat CT once contrast is cleared to evaluate hiatal hernia. 09/19/2024 Patient is seen in follow-up this morning with general surgery following continued on PEG tube to drainage with n.p.o. and holding tube feeds at this time. Patient is continued on TPN and tolerating thus far. Patient continues to report he is dry heaving and spitting up and frequently with hiccups as well. Plan is for repeat soapsuds enema and follow-up abdominal x-rays tomorrow to assess if contrast has moved as general surgery would like to obtain CT for hernia evaluation. Patient is lethargic although arousable is alert and oriented responding to questions and commands appropriately. Patient encouraged to increase activity as tolerated and sit up out of the bed more frequently. Patient has been laying in bed and mostly sleeping during this hospitalization. 09/20/2024 Patient is seen in follow-up with general surgery following continue to have PEG tube to drainage and n.p.o. Patient is continued on TPN and electrolytes being adjusted per dietary and pharmacy. Patient continues to have constant nausea with occasional spitting up and no reported vomiting at this time. Patient denies pain. Patient with repeat abdominal x-ray continues to show barium and awaiting for clearance to undergo repeat CT per surgery for evaluation of hernia. Patient will be started on GoLytely prep via PEG tube per surgery recommendations slowly over the weekend and repeat abdominal imaging on Monday. Patient with low-grade temps is continued on antibiotics. Encourage sitting up out of the bed more frequently. Patient has been laying in the bed this entire hospitalization and only minimally sitting up. Patient is extremely high risk for aspirating as well. Recommend head of the bed 30 to 45 degrees at all times. review of systems: Constitutional: reports of fatigue, no fever, or chills Cardiovascular: No reports of chest pain or palpitations Respiratory: No reports of shortness of breath or cough GI: reports of continued constant nausea, denies vomiting, but is dry heaving and spitting up frothy clear liquid, had a bowel movement yesterday : No reports of dysuria or retention Neurovascular: reports of generalized weakness All medications have been reviewed Physical exam: Gen: This is a 68-year-old male who is asleep although easily arousable, alert and oriented x 3, thin built, elderly appearing, ill-appearing, cachectic HEENT: Head is atraumatic, normocephalic. Pupils equal, round. Sclerae is anicteric. NECK: Supple. No JVD. No lymphadenopathy. No thyromegaly. LUNGS: Diminished breath sounds bilaterally otherwise clear to auscultation. No wheezes or rhonchi. No intercostal retractions. HEART: S1, S2 are muffled ABDOMEN: Soft. Thin. Bowel sounds are present. No masses. No tenderness. PEG tube noted to drainage EXTREMITIES: No pedal edema. No calf tenderness. Significant cachexia noted throughout upper and lower extremities NEUROLOGICAL: Patient is alert and oriented x3. Appears depressed, flat affect cranial nerves 2 through 12 are grossly intact. Diffusely weak Assessment Hematemesis with concerns of possible GI bleed, now resolved Recurrent nausea vomiting, intractable requiring PEG tube placement during last admission multifactorial likely secondary to intermittent internal hernia as well as significant history of esophageal dysmotility disorder Epigastric pain and tenderness likely secondary to gastritis Elevated troponin could be secondary to dehydration, evaluated by cardiology during last admission Severe calorie protein malnutrition with a BMI of 18.6 Hypertension Hyperlipidemia Anxiety/depression, was evaluated by psychiatry Distal esophagitis Hiatal hernia history GI prophylaxis DVT prophylaxis Full code Plan: Patient is continued on gentle hydration and IV Protonix continues on TPN, currently n.p.o. and tube feeds are on hold and PEG tube is continued to drainage per general surgery General surgery following with no plans of intervention at this time recommending repeat CT in the next couple of days to assess if barium has moved through the colon and to further evaluate hiatal hernia. Multiple abdominal images over the last week showing continued barium and will undergo GoLytely p rep over the weekend via PEG tube per surgery and repeat abdominal x-ray on Monday. Soapsuds enema ordered Patient continues with nausea and dry heaving and will be n.p.o. for now, tube feedings were started yesterday although not tolerating and currently held, continue TPN. Tube feedings being held per surgery and PEG tube to drainage recommend strict intake and output. Continue with Zofran and Reglan which he is getting [id number] Encouraged increase activity as tolerated with sitting up out of the bed more often and in the chair. Patient is significantly weak and will have PT/T th erapy evaluate the patient. Patient has been mostly lying in the bed and sleeping throughout most of the day. Overall prognosis is guarded The impression and plan of care has been dictated by Yanira Linda, Nurse Practitioner as directed. Dr. Bentley MD I have performed a history and examination and MDM of this patient, discussed the same with the dictator, and agree with the dictator's assessment and plan as written ,documented as a scribe. Based on total visit time, I have performed more than 50% of the visit. Objective - Vital Signs Vital signs: Vital Signs Temp 98.8 F 09/20/24 07:02 Pulse 111 H 09/20/24 07:02 Resp 16 09/20/24 07:02 BP 109/77 09/20/24 07:02 Pulse Ox 97 09/20/24 07:02 FiO2 Intake & Output 09/19/24 09/20/24 09/20/24 18:59 06:59 18:59 Intake Total 1003 Output Total 610 600 Balance -610 403 Weight 57 kg 55.5 kg Intake: Intake, IV Titration 1003 Amount Potassium Phosphate 9 1003 mmol In Amino Acid 5%- D20w+Lytes*E* 1,000 ml @ 70 mls/hr IV .BY DURATION GIRISH Rx#:[id number] Output: Urine 610 600 Other: Voiding Method Urinal # Bowel Movements 1 - Labs CBC & Chem 7: 09/18/24 03:17 09/21/24 03:51 Labs: Abnormal Lab Results - Last 24 Hours (Table) 09/19/24 09/19/24 09/19/24 Range/Units 11:48 17:31 23:40 Creatinine (0.66-1.25) mg/dL Glucose (74-99) mg/dL POC Glucose (mg/dL) 162 H 141 H 166 H (70-110) mg/dL 09/20/24 09/20/24 Range/Units 06:23 06:24 Creatinine 0.59 L (0.66-1.25) mg/dL Glucose 158 H (74-99) mg/dL POC Glucose (mg/dL) 172 H (70-110) mg/dL
[2024-09-21 10:24] LABS: Basophils # (A) 0.06 X 10*3/uL (0.00-0.10); Basophils % (A) 0.5 %; Eosinophils # (A) 0.03 X 10*3/uL (0.04-0.35); Eosinophils % (A) 0.2 %; HCT 29.3 % (39.6-50.0); HGB 9.1 g/dL (13.0-17.0); Lymphocytes # (A) 0.65 X 10*3/uL (0.90-5.00); Lymphocytes % (A) 5.2 %; MCH 30.5 pg (27.0-32.0); MCHC 31.1 g/dL (32.0-37.0); MCV 98.3 FL (80.0-97.0); Mean Platelet Volume 12.8 FL (9.5-12.2); Monocytes # (A) 0.55 X 10*3/uL (0.20-1.00); Monocytes % (A) 4.4 %; NRBC Per 100 WBC 0 X 10*3/uL (0.00-0.01); Platelet Count 181 X 10*3/uL (140-440); RBC 2.98 X 10*6/uL (4.40-5.60); RDW 20.4 % (11.5-14.5); WBC 12.48 X 10*3/uL (4.50-10.00)
[2024-09-21 10:38] LABS: Glucose,Whole Blood 177 mg/dL (70-110)
[2024-09-21] MEDS: PEG 3350 (236 GM/BTL) + LYTES 4,000 ML BOTTLE PEJ/J-Tube ONE (11:38)
[2024-09-21] MEDS ORDERED: PEG 3350 (236 GM/BTL) + LYTES 4,000 ML BOTTLE PO ONE (11:58)
--- NOTE | 2024-09-21 12:00 | P.PN ---
Subjective Progress Note Date: 09/21/24 Patient is resting in his bed. He has minimal complaints of pain. He had some crampy discomfort when he had approximately 300 cc of GoLytely yesterday. On exam vital signs appear stable. Abdomen soft. Intermittent nausea vomiting abdominal pain. This may be due to internal hernia. The patient has significant barium still in the colon. We will try to flush the barium out with GoLytely prior to repeating his CAT scan. Objective - Vital Signs Vital signs: Vital Signs Temp 97.1 F L 09/21/24 07:13 Pulse 102 H 09/21/24 07:13 Resp 18 09/21/24 07:13 BP 110/75 09/21/24 07:13 Pulse Ox 96 09/21/24 07:13 FiO2 Intake & Output 09/20/24 09/21/24 09/21/24 18:59 06:59 18:59 Output Total 200 200 200 Balance -200 -200 -200 Weight 54.5 kg Output: Drainage 200 Abdomen 200 Urine 200 200 Other: Voiding Method Urinal Urinal Incontinent - Labs CBC & Chem 7: 09/21/24 06:15 09/21/24 03:51 Labs: Abnormal Lab Results - Last 24 Hours (Table) 09/20/24 09/20/24 09/21/24 Range/Units 16:47 20:48 01:36 WBC (4.50-10.00) X 10*3/uL RBC (4.40-5.60) X 10*6/uL Hgb (13.0-17.0) g/dL Hct (39.6-50.0) % MCV (80.0-97.0) FL MCHC (32.0-37.0) g/dL RDW (11.5-14.5) % MPV (9.5-12.2) FL Immature Gran # (0.00-0.04) X 10*3/uL Neutrophils # (1.80-7.70) X 10*3/uL Lymphocytes # (0.90-5.00) X 10*3/uL Eosinophils # (0.04-0.35) X 10*3/uL Potassium (3.5-5.1) mmol/L Chloride (98-107) mmol/L BUN (9-20) mg/dL Glucose (74-99) mg/dL POC Glucose (mg/dL) 173 H 143 H 179 H (70-110) mg/dL Calcium (8.4-10.2) mg/dL 09/21/24 09/21/24 09/21/24 Range/Units 03:51 06:15 06:30 WBC 12.48 H (4.50-10.00) X 10*3/uL RBC 2.98 L (4.40-5.60) X 10*6/uL Hgb 9.1 L (13.0-17.0) g/dL Hct 29.3 L (39.6-50.0) % MCV 98.3 H (80.0-97.0) FL MCHC 31.1 L (32.0-37.0) g/dL RDW 20.4 H (11.5-14.5) % MPV 12.8 H (9.5-12.2) FL Immature Gran # 0.09 H (0.00-0.04) X 10*3/uL Neutrophils # 11.10 H (1.80-7.70) X 10*3/uL Lymphocytes # 0.65 L (0.90-5.00) X 10*3/uL Eosinophils # 0.03 L (0.04-0.35) X 10*3/uL Potassium 3.3 L (3.5-5.1) mmol/L Chloride 109 H (98-107) mmol/L BUN 29 H (9-20) mg/dL Glucose 153 H (74-99) mg/dL POC Glucose (mg/dL) 141 H (70-110) mg/dL Calcium 8.2 L (8.4-10.2) mg/dL 09/21/24 Range/Units 10:36 WBC (4.50-10.00) X 10*3/uL RBC (4.40-5.60) X 10*6/uL Hgb (13.0-17.0) g/dL Hct (39.6-50.0) % MCV (80.0-97.0) FL MCHC (32.0-37.0) g/dL RDW (11.5-14.5) % MPV (9.5-12.2) FL Immature Gran # (0.00-0.04) X 10*3/uL Neutrophils # (1.80-7.70) X 10*3/uL Lymphocytes # (0.90-5.00) X 10*3/uL Eosinophils # (0.04-0.35) X 10*3/uL Potassium (3.5-5.1) mmol/L Chloride (98-107) mmol/L BUN (9-20) mg/dL Glucose (74-99) mg/dL POC Glucose (mg/dL) 177 H (70-110) mg/dL Calcium (8.4-10.2) mg/dL
[2024-09-21 16:39] LABS: Glucose,Whole Blood 176 mg/dL (70-110)
[2024-09-21 19:50] LABS: Glucose,Whole Blood 86 mg/dL (70-110)
--- NOTE | 2024-09-21 20:46 | P.PN ---
Subjective Progress Note Date: 09/21/24 68 years old male who was recently discharged from this facility about 4 days ago for nausea vomiting and malnutrition status post PEG tube placement by surgery team. Once he been discharged he started having recurrent nausea vomiting again, he vomited 6 times since yesterday with no blood. Associated with epigastric pain and tenderness His troponin was elevated but EKG showing SVT. 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 Currently denies chest pain or dyspnea. No specific urinary symptoms. No headache dizziness weakness or numbness He is pain mainly in the epigastric area about 9/10 felt like squeezing nonradiating with no precipitating or relieving factors. He states that the pain is similar to last time. He has no bowel movement. He is using the PEG tube at home. He got Zofran 4 mg and is requesting more medicine He is hemodynamically stable and afebrile He has unremarkable CBC, BMP, LFT. WBC is mildly elevated at 10.4 at 11. Lactic acid 4.6 came back to normal at 1.7. Troponin is elevated 0.065. KUB showing nonspecific gas bowel pattern. EKG showed SVT with a rate of [address] depression in V3-V5 09/14/2024 Patient is seen and evaluated in room at bedside; continues to have episodes of vomiting; patient has PEG tube placed and currently is to suction with bilious output; remains on TPN Vital signs stable with temperature of 97.4, pulse 82, respirations 16 and blood pressure 134/86, O2 saturation 98% on room air Lab review reveals sodium of 138, potassium 2.9, BUNs/creatinine of 6/0.41, blood glucose ranging between 130-160, magnesium low at 1.5 -Electrolyte replacement has been ordered - General Surgery on board; patient continues to have nausea and vomiting; likely related to recurrent hiatal hernia or possible internal hernia; surgery recommending repeat CT of the chest and abdomen on Monday - Continue with TPN at this time 09/15/2024 Patient is seen and evaluated again to follow-up on intractable nausea and vomiting; reports no vomiting since yesterday; remains on TPN Vital signs are stable with temperature 98.1, pulse 63, respirations 17 and blood pressure 118/79 Lab review shows WBC of 6.6, hemoglobin of 11 and platelet count of 298, sodium 136, potassium 3.4, BUNs/creatinine of 8/2.47 and blood glucose of 103 -Surgery to clear patient for tube feed 09/16/2024 Patient seen in follow-up today with general surgery following. Patient maintained on TPN and per general surgery okay to initiate tube feeds again and monitor for tolerance. Potassium slightly low and will replace per protocol follow-up BMP in the a.m. Electrolytes being closely monitored and adjusted per dietary and pharmacy due to TPN as well. Patient continues to have clearish frothy phlegm spit up with nausea and denies any vomiting at this time. No further bleeding noted and hemoglobin is stable. Continued barium residual and is being started on bowel regimen as patient has not had a bowel movement in a few days and recommend repeat CT to evaluate once barium has been cleared. Patient is afebrile with no reports of chest pain or shortness of breath. 09/17/2024 Patient is seen in follow-up today with general surgery following. Patient is continued to be n.p.o. and maintained on TPN. Tube feeds were initiated yesterday although apparently patient had been vomiting and not tolerating and tube feeds currently on hold. Repeat abdominal x-ray noted to continue to have barium noted in the colon and awaiting clearance for repeat CT to assess hernia. No immediate plans for surgical intervention although waiting these further images to discuss the possibility of a need for hernia repair. Patient is extremely weak and would recommend PT/OT therapy. Zosyn was started per surgery team, will monitor closely for aspiration and strongly recommend aspiration p recautions with head of the bed elevated 35 to 45 degrees at all times 09/18/2024 Patient is seen in follow-up today continues to have significant nausea with dry heaving and spitting up frothy secretions. Patient is maintained on TPN and PEG tube feedings are on hold and also medications through the PEG tube are being held. Patient is n.p.o. and will continue. Per surgery PEG tube to drainage with strict intake and output. Patient maintained on antibiotics and tachycardic, EKG being obtained. Repeat abdominal x-ray continues show contrast minimally moved towards the rectum and is being started on enema per surgery. Plan for repeat CT once contrast is cleared to evaluate hiatal hernia. 09/19/2024 Patient is seen in follow-up this morning with general surgery following continued on PEG tube to drainage with n.p.o. and holding tube feeds at this time. Patient is continued on TPN and tolerating thus far. Patient continues to report he is dry heaving and spitting up and frequently with hiccups as well. Plan is for repeat soapsuds enema and follow-up abdominal x-rays tomorrow to assess if contrast has moved as general surgery would like to obtain CT for hernia evaluation. Patient is lethargic although arousable is alert and oriented responding to questions and commands appropriately. Patient encouraged to increase activity as tolerated and sit up out of the bed more frequently. Patient has been laying in bed and mostly sleeping during this hospitalization. 09/20/2024 Patient is seen in follow-up with general surgery following continue to have PEG tube to drainage and n.p.o. Patient is continued on TPN and electrolytes being adjusted per dietary and pharmacy. Patient continues to have constant nausea with occasional spitting up and no reported vomiting at this time. Patient denies pain. Patient with repeat abdominal x-ray continues to show barium and awaiting for clearance to undergo repeat CT per surgery for evaluation of hernia. Patient will be started on GoLytely prep via PEG tube per surgery recommendations slowly over the weekend and repeat abdominal imaging on Monday. Patient with low-grade temps is continued on antibiotics. Encourage sitting up out of the bed more frequently. Patient has been laying in the bed this entire hospitalization and only minimally sitting up. Patient is extremely high risk for aspirating as well. Recommend head of the bed 30 to 45 degrees at all times. 09/21/2024 Patient is currently sitting on side of the bed. Awake alert oriented. Feels weak. No complaints of chest pain or shortness of breath. On room air. Otherwise patient did have a bowel movement today afternoon. Patient is getting GoLytely. No complaints of abdominal pain. Patient is on TPN. Nothing by mouth. General surgery is on board. Laboratory data showed WBC 12.4 hemoglobin 9.1 and MCV 98.3 and platelets 181 sodium 141 potassium 3.3 chloride 109 bicarb is 29 BUN 29 creatinine 0.73 and pressure 115 calcium 8.2. review of systems: Constitutional: reports of fatigue, no fever, or chills Cardiovascular: No reports of chest pain or palpitations Respiratory: No reports of shortness of breath or cough GI: reports of continued constant nausea, denies vomiting, but is dry heaving and spitting up frothy clear liquid, had a bowel movement yesterday : No reports of dysuria or retention Neurovascular: reports of generalized weakness All medications have been reviewed Physical exam: Gen: This is a 68-year-old male who is asleep although easily arousable, alert and oriented x 3, thin built, elderly appearing, ill-appearing, cachectic HEENT: Head is atraumatic, normocephalic. Pupils equal, round. Sclerae is anicteric. NECK: Supple. No JVD. No lymphadenopathy. No thyromegaly. LUNGS: Diminished breath sounds bilaterally otherwise clear to auscultation. No wheezes or rhonchi. No intercostal retractions. HEART: S1, S2 are muffled ABDOMEN: Soft. Thin. Bowel sounds are present. No masses. No tenderness. PEG tube noted to drainage EXTREMITIES: No pedal edema. No calf tenderness. Significant cachexia noted t hroughout upper and lower extremities NEUROLOGICAL: Patient is alert and oriented x3. Appears depressed, flat affect cranial nerves 2 through 12 are grossly intact. Diffusely weak Assessment Hematemesis with concerns of possible GI bleed, now resolved Recurrent nausea vomiting, intractable requiring PEG tube placement during last admission multifactorial likely secondary to intermittent internal hernia as well as significant history of esophageal dysmotility disorder Epigastric pain and tenderness likely secondary to gastritis Elevated troponin could be secondary to dehydration, evaluated by cardiology during last admission Severe calorie protein malnutrition with a BMI of 18.6 Hypertension Hyperlipidemia Anxiety/depression, was evaluated by psychiatry Distal esophagitis Hiatal hernia history GI prophylaxis DVT prophylaxis Full code Plan: Patient is continued on gentle hydration and IV Protonix continues on TPN, currently n.p.o. and tube feeds are on hold and PEG tube is continued to drainage per general surgery General surgery following with no plans of intervention at this time recommending repeat CT in the next couple of days to assess if barium has moved through the colon and to further evaluate hiatal hernia. Multiple abdominal images over the last week showing continued barium and will undergo GoLytely prep over the weekend via PEG tube per surgery and repeat abdominal x-ray on Monday. Soapsuds enema ordered Patient continues with nausea and dry heaving and will be n.p.o. for now, tube feedings were started yesterday although not tolerating and currently held, continue TPN. Tube feedings being held per surgery and PEG tube to drainage recommend strict intake and output. Continue with Zofran and Reglan which he is getting [id number] Encouraged increase activity as tolerated with sitting up out of the bed more often and in the chair. Patient is significantly weak and will have PT/T therapy evaluate the patient. Patient has been mostly lying in the bed and sleeping throughout most of the day. Overall prognosis is guarded Objective - Vital Signs Vital signs: Vital Signs Temp 99.2 F 09/21/24 13:06 Pulse 99 09/21/24 13:06 Resp 18 09/21/24 13:06 BP 118/79 09/21/24 13:06 Pulse Ox 98 09/21/24 13:06 FiO2 Intake & Output 09/21/24 09/21/24 09/22/24 06:59 18:59 06:59 Intake Total 1010 Output Total 200 625 Balance 810 -625 Weight 54.5 kg Intake: Intake, IV Titration 1010 Amount Potassium Phosphate 9 1010 mmol Sodium Chloride 4Meq /ml Vial 12 meq Potassium Chloride 8 meq In Amino Acid 5%-D20w+Lytes*E* 1, 000 ml @ 70 mls/hr IV .BY DURATION [facility] Rx#: [id number] Output: Gastric Drainage 100 Urine 200 525 Other: Voiding Method Urinal Incontinent # Bowel Movements 1 1 - Labs CBC & Chem 7: 09/21/24 06:15 09/21/24 17:07 Labs: Abnormal Lab Results - Last 24 Hours (Table) 09/20/24 09/21/24 09/21/24 Range/Units 20:48 01:36 03:51 WBC (4.50-10.00) X 10*3/uL RBC (4.40-5.60) X 10*6/uL Hgb (13.0-17.0) g/dL Hct (39.6-50.0) % MCV (80.0-97.0) FL MCHC (32.0-37.0) g/dL RDW (11.5-14.5) % MPV (9.5-12.2) FL Immature Gran # (0.00-0.04) X 10*3/uL Neutrophils # (1.80-7.70) X 10*3/uL Lymphocytes # (0.90-5.00) X 10*3/uL Eosinophils # (0.04-0.35) X 10*3/uL Potassium 3.3 L (3.5-5.1) mmol/L Chloride 109 H (98-107) mmol/L BUN 29 H (9-20) mg/dL Glucose 153 H (74-99) mg/dL POC Glucose (mg/dL) 143 H 179 H (70-110) mg/dL Calcium 8.2 L (8.4-10.2) mg/dL 09/21/24 09/21/24 09/21/24 Range/Units 06:15 06:30 10:36 WBC 12.48 H (4.50-10.00) X 10*3/uL RBC 2.98 L (4.40-5.60) X 10*6/uL Hgb 9.1 L (13.0-17.0) g/dL Hct 29.3 L (39.6-50.0) % MCV 98.3 H (80.0-97.0) FL MCHC 31.1 L (32.0-37.0) g/dL RDW 20.4 H (11.5-14.5) % MPV 12.8 H (9.5-12.2) FL Immature Gran # 0.09 H (0.00-0.04) X 10*3/uL Neutrophils # 11.10 H (1.80-7.70) X 10*3/uL Lymphocytes # 0.65 L (0.90-5.00) X 10*3/uL Eosinophils # 0.03 L (0.04-0.35) X 10*3/uL Potassium (3.5-5.1) mmol/L Chloride (98-107) mmol/L BUN (9-20) mg/dL Glucose (74-99) mg/dL POC Glucose (mg/dL) 141 H 177 H (70-110) mg/dL Calcium (8.4-10.2) mg/dL 09/21/24 Range/Units 16:35 WBC (4.50-10.00) X 10*3/uL RBC (4.40-5.60) X 10*6/uL Hgb (13.0-17.0) g/dL Hct (39.6-50.0) % MCV (80.0-97.0) FL MCHC (32.0-37.0) g/dL RDW (11.5-14.5) % MPV (9.5-12.2) FL Immature Gran # (0.00-0.04) X 10*3/uL Neutrophils # (1.80-7.70) X 10*3/uL Lymphocytes # (0.90-5.00) X 10*3/uL Eosinophils # (0.04-0.35) X 10*3/uL Potassium (3.5-5.1) mmol/L Chloride (98-107) mmol/L BUN (9-20) mg/dL Glucose (74-99) mg/dL POC Glucose (mg/dL) 176 H (70-110) mg/dL Calcium (8.4-10.2) mg/dL Assessment and Plan Time with Patient: Greater than 30
[2024-09-21] MEDS: POTASSIUM CHLORIDE 20 MEQ in WATER FOR INJECTION 1 100ML.BAG IVPB STA (21:34)
[2024-09-21 23:35] LABS: Glucose,Whole Blood 169 mg/dL (70-110)
[2024-09-22 03:47] LABS: ALT 45 U/L (4-49); AST 38 U/L (17-59); African American GFR (CKD) >90 (>60 ml/min/1.73 sqM); Albumin/Globulin Ratio 0.9; Alkaline Phosphatase 182 U/L (38-126); Anion Gap 7 mmol/L; Blood Urea Nitrogen 35 mg/dL (9-20); Calcium 8.3 mg/dL (8.4-10.2); Carbon Dioxide 27 mmol/L (22-30); Chloride 113 mmol/L (98-107); Globulin 2.3 g/dL; Glucose 156 mg/dL (74-99); Magnesium 2.2 mg/dL (1.6-2.3); Non-African American GFR(CKD) >90 (>60 ml/min/1.73 sqM); Phosphorus 4.3 mg/dL (2.5-4.5); Sodium 147 mmol/L (137-145); Total Bilirubin 0.4 mg/dL (0.2-1.3); Total Protein 4.3 g/dL (6.3-8.2)
[2024-09-22 06:28] LABS: Glucose,Whole Blood 184 mg/dL (70-110)
[2024-09-22 10:08] LABS: Basophils # (A) 0.03 X 10*3/uL (0.00-0.10); Basophils % (A) 0.2 %; Eosinophils # (A) 0.06 X 10*3/uL (0.04-0.35); Eosinophils % (A) 0.5 %; HCT 26.6 % (39.6-50.0); HGB 8.5 g/dL (13.0-17.0); Lymphocytes # (A) 0.77 X 10*3/uL (0.90-5.00); MCH 30.9 pg (27.0-32.0); MCV 96.7 FL (80.0-97.0); Mean Platelet Volume 13.1 FL (9.5-12.2); Monocytes # (A) 0.41 X 10*3/uL (0.20-1.00); Monocytes % (A) 3.2 %; NRBC Per 100 WBC 0 X 10*3/uL (0.00-0.01); Neutrophils # (A) 11.45 X 10*3/uL (1.80-7.70); Neutrophils % (A) 89.2 %; Platelet Count 195 X 10*3/uL (140-440); RBC 2.75 X 10*6/uL (4.40-5.60); WBC 12.83 X 10*3/uL (4.50-10.00)
--- NOTE | 2024-09-22 10:27 | P.PN ---
Subjective Progress Note Date: 09/22/24 Patient is resting comfortably in the chair. Patient had 3 bowel movements yesterday. On exam vital signs appear stable. Abdomen is soft. Patient will have repeat abdominal x-ray performed tomorrow. If his barium is cleared he will undergo repeat CAT scan to eval for possible intermittent internal hernia. Objective - Vital Signs Vital signs: Vital Signs Temp 98.0 F 09/22/24 07:46 Pulse 82 09/22/24 07:46 Resp 16 09/22/24 07:46 BP 119/77 09/22/24 07:46 Pulse Ox 97 09/22/24 07:46 FiO2 Intake & Output 09/21/24 09/22/24 09/22/24 18:59 06:59 18:59 Intake Total 1021 Output Total 625 20 200 Balance 396 -20 -200 Weight 62 kg Intake: Intake, IV Titration 1021 Amount Mvi, Adult No.4 with Vit 1021 K 10 ml Trace (Conc-1Ml/ Dose) 1 ml Potassium Phosphate 9 mmol Sodium Chloride 4Meq/ml Vial 12 meq Potassium Chloride 8 meq In Amino Acid 5%-D20w +Lytes*E* 1,000 ml @ 70 mls/hr IV .BY DURATION [facility] Rx#:[id number] Output: Gastric Drainage 100 Urine 525 200 Other 20 Other: Voiding Method Incontinent Urinal Urinal Incontinent # Voids 2 # Bowel Movements 1 1 - Labs CBC & Chem 7: 09/22/24 02:56 09/22/24 02:56 Labs: Abnormal Lab Results - Last 24 Hours (Table) 09/21/24 09/21/24 09/21/24 Range/Units 10:36 16:35 23:34 WBC (4.50-10.00) X 10*3/uL RBC (4.40-5.60) X 10*6/uL Hgb (13.0-17.0) g/dL Hct (39.6-50.0) % RDW (11.5-14.5) % MPV (9.5-12.2) FL Immature Gran # (0.00-0.04) X 10*3/uL Neutrophils # (1.80-7.70) X 10*3/uL Lymphocytes # (0.90-5.00) X 10*3/uL Sodium (137-145) mmol/L Chloride (98-107) mmol/L BUN (9-20) mg/dL Glucose (74-99) mg/dL POC Glucose (mg/dL) 177 H 176 H 169 H (70-110) mg/dL Calcium (8.4-10.2) mg/dL Alkaline Phosphatase (38-126) U/L Total Protein (6.3-8.2) g/dL Albumin (3.5-5.0) g/dL 09/22/24 09/22/24 09/22/24 Range/Units 02:56 02:56 06:27 WBC 12.83 H (4.50-10.00) X 10*3/uL RBC 2.75 L (4.40-5.60) X 10*6/uL Hgb 8.5 L (13.0-17.0) g/dL Hct 26.6 L (39.6-50.0) % RDW 21.0 H (11.5-14.5) % MPV 13.1 H (9.5-12.2) FL Immature Gran # 0.11 H (0.00-0.04) X 10*3/uL Neutrophils # 11.45 H (1.80-7.70) X 10*3/uL Lymphocytes # 0.77 L (0.90-5.00) X 10*3/uL Sodium 147 H (137-145) mmol/L Chloride 113 H (98-107) mmol/L BUN 35 H (9-20) mg/dL Glucose 156 H (74-99) mg/dL POC Glucose (mg/dL) 184 H (70-110) mg/dL Calcium 8.3 L (8.4-10.2) mg/dL Alkaline Phosphatase 182 H (38-126) U/L Total Protein 4.3 L (6.3-8.2) g/dL Albumin 2.0 L (3.5-5.0) g/dL
[2024-09-22 11:42] LABS: Glucose,Whole Blood 168 mg/dL (70-110)
[2024-09-22] MEDS: PEG 3350 (236 GM/BTL) + LYTES 4,000 ML BOTTLE PEJ/J-Tube ONE (13:01)
[2024-09-22 17:02] LABS: Glucose,Whole Blood 189 mg/dL (70-110)
[2024-09-22 19:44] LABS: Glucose,Whole Blood 134 mg/dL (70-110)
[2024-09-22] MEDS: 1: MVI, ADULT NO.4 WITH VIT K 10 ML, TRACE (CONC-1ML/DOSE) 1 ML, POTASSIUM PHOSPHATE 9 M IV SCH (21:11)
[2024-09-23 00:03] LABS: Glucose,Whole Blood 172 mg/dL (70-110)
[2024-09-23 06:30] LABS: Glucose,Whole Blood 170 mg/dL (70-110)
[2024-09-23 07:46] LABS: African American GFR (CKD) >90 (>60 ml/min/1.73 sqM); Anion Gap 8 mmol/L; Blood Urea Nitrogen 38 mg/dL (9-20); Carbon Dioxide 28 mmol/L (22-30); Chloride 116 mmol/L (98-107); Glucose 146 mg/dL (74-99); Magnesium 2.3 mg/dL (1.6-2.3); Non-African American GFR(CKD) 88 (>60 ml/min/1.73 sqM); Potassium 3.3 mmol/L (3.5-5.1); Sodium 152 mmol/L (137-145)
[2024-09-23 08:13] LABS: Basophils # (A) 0.05 10*3/uL (0.00-0.10); Basophils % (A) 0.4 %; Eosinophils # (A) 0.09 10*3/uL (0.04-0.35); Eosinophils % (A) 0.7 %; HCT 27.6 % (39.6-50.0); HGB 9.2 g/dL (13.0-17.0); Lymphocytes # (A) 0.87 10*3/uL (0.90-5.00); MCHC 33.3 g/dL (32.0-37.0); MCV 92.9 fL (80.0-97.0); Mean Platelet Volume 12.7 fL (9.5-12.2); Monocytes # (A) 0.53 10*3/uL (0.20-1.00); Monocytes % (A) 4.3 %; Neutrophils # (A) 10.72 10*3/uL (1.80-7.70); Neutrophils % (A) 86.6 %; Platelet Count 225 10*3/uL (140-440); RBC 2.97 10*6/uL (4.40-5.60); RDW 20.9 % (11.5-14.5); WBC 12.39 10*3/uL (4.50-10.00)
--- NOTE | 2024-09-23 08:32 | XR ---
EXAMINATION TYPE: XR abdomen 2V DATE OF EXAM: 09/23/2024 COMPARISON: Abdominal radiograph 09/20/2024, 09/17/2024, 09/16/2024 HISTORY: Follow-up barium clearance, abdominal pain. TECHNIQUE: Upright and supine views of the abdomen were obtained. FINDINGS: Small bowel demonstrates no evidence for dilatation or air fluid levels. Gas and fecal material is seen in non-distended colon. Decreased amount of barium demonstrated within the colon with residual regions identified. PEG tube i dentified. No convincing evidence for pneumoperitoneum. No unusual calcifications. The lung bases are clear. The osseous structures are intact. IMPRESSION: Decreased amount of barium demonstrated within the colon with residual regions identified. [facility], , 09/23/2024 8:30 AM
[2024-09-23] MEDS: HEPARIN SODIUM,PORCINE 5,000 UNIT/ML 1 ML VIAL SQ SCH (08:51)
[2024-09-23] MEDS: POTASSIUM CHLORIDE 20 MEQ in WATER FOR INJECTION 1 100ML.BAG IVPB SCH (09:35)
--- NOTE | 2024-09-23 11:08 | P.PN ---
Subjective Progress Note Date: 09/23/24 SURGICAL PROGRESS NOTE CHIEF COMPLAINT: Recurrent nausea and vomiting HISTORY OF PRESENT ILLNESS: Patient is lying in bed comfortably. Per nursing staff he is still having some spitting up of clearish fluid. PEG tube is to drainage with 200 mL output. He did have bowel movements with the GoLytely. A febrile. Abdominal x-ray reports a decreased amount of barium demonstrated within the colon with residual regions identified. WBC 12.39 Hgb 9.2 potassium 3.3 PHYSICAL EXAM: VITAL SIGNS: Reviewed. GENERAL: Well-developed in no acute distress. ABDOMEN: Soft. Nondistended. Nontender. PEG tube site clean dry and intact. NEUROLOGIC: Alert and oriented. Cranial nerves II through XII grossly intact. ASSESSMENT: 1. Upper GI bleed with bright red blood and coffee-ground emesis. now resolved 2. Intermittent internal hernia 3. Intractable nausea and vomiting 4. History of esophageal dysmotility disorder 5. Hiatal hernia 6. Esophagitis 7. Severe protein calorie malnutrition PLAN: -CT scan abdomen pelvis with contrast ordered to evaluate for intermittent internal hernia -Continue TPN for nutrition support -Potassium being replaced Physician Clinical Exercise Specialist note has been reviewed by physician. Signing provider agrees with the documented findings, assessment, and plan of care. Objective - Vital Signs Vital signs: Vital Signs Temp 97.4 F L 09/23/24 07:55 Pulse 80 09/23/24 07:55 Resp 15 09/23/24 07:55 BP 132/76 09/23/24 07:55 Pulse Ox 98 09/23/24 07:55 FiO2 Intake & Output 09/22/24 09/23/24 09/23/24 18:59 06:59 18:59 Intake Total 1951.7 Output Total 650 225 Balance -650 172.667 Weight 62.5 kg Intake: Intake, IV Titration Amount Mvi, Adult No.4 with Vit 942.667 K 10 ml Trace (Conc-1Ml/ Dose) 1 ml Potassium Phosphate 9 mmol Sodium Chloride 4Meq/ml Vial 12 meq Potassium Chloride 8 meq In Amino Acid 5%-D20w +Lytes*E* 1,000 ml @ 70 mls/hr IV .BY DURATION [facility] Rx#:[id number] Potassium Phosphate 9 1010 mmol Sodium Chloride 4Meq /ml Vial 12 meq Potassium Chloride 8 meq In Amino Acid 5%-D20w+Lytes*E* 1, 000 ml @ 70 mls/hr IV .BY DURATION [facility] Rx#: [id number] Output: Urine 650 225 Other: Voiding Method Urinal # Voids 2 # Bowel Movements 1 - Labs CBC & Chem 7: 09/23/24 07:15 09/23/24 07:15 Labs: Abnormal Lab Results - Last 24 Hours (Table) 09/22/24 09/22/24 09/22/24 Range/Units 11:41 17:00 19:41 WBC (4.50-10.00) 10*3/uL RBC (4.40-5.60) 10*6/uL Hgb (13.0-17.0) g/dL Hct (39.6-50.0) % RDW (11.5-14.5) % MPV (9.5-12.2) fL Immature Gran # (0.00-0.04) 10*3/uL Neutrophils # (1.80-7.70) 10*3/uL Lymphocytes # (0.90-5.00) 10*3/uL Sodium (137-145) mmol/L Potassium (3.5-5.1) mmol/L Chloride (98-107) mmol/L BUN (9-20) mg/dL Glucose (74-99) mg/dL POC Glucose (mg/dL) 168 H 189 H 134 H (70-110) mg/dL Calcium (8.4-10.2) mg/dL Phosphorus (2.5-4.5) mg/dL 09/23/24 09/23/24 09/23/24 Range/Units 00:02 06:28 07:15 WBC (4.50-10.00) 10*3/uL RBC (4.40-5.60) 10*6/uL Hgb (13.0-17.0) g/dL Hct (39.6-50.0) % RDW (11.5-14.5) % MPV (9.5-12.2) fL Immature Gran # (0.00-0.04) 10*3/uL Neutrophils # (1.80-7.70) 10*3/uL Lymphocytes # (0.90-5.00) 10*3/uL Sodium 152 H (137-145) mmol/L Potassium 3.3 L (3.5-5.1) mmol/L Chloride 116 H (98-107) mmol/L BUN 38 H (9-20) mg/dL Glucose 146 H (74-99) mg/dL POC Glucose (mg/dL) 172 H 170 H (70-110) mg/dL Calcium 8.0 L (8.4-10.2) mg/dL Phosphorus 5.0 H (2.5-4.5) mg/dL 09/23/24 Range/Units 07:15 WBC 12.39 H (4.50-10.00) 10*3/uL RBC 2.97 L (4.40-5.60) 10*6/uL Hgb 9.2 L (13.0-17.0) g/dL Hct 27.6 L (39.6-50.0) % RDW 20.9 H (11.5-14.5) % MPV 12.7 H (9.5-12.2) fL Immature Gran # 0.13 H (0.00-0.04) 10*3/uL Neutrophils # 10.72 H (1.80-7.70) 10*3/uL Lymphocytes # 0.87 L (0.90-5.00) 10*3/uL Sodium (137-145) mmol/L Potassium (3.5-5.1) mmol/L Chloride (98-107) mmol/L BUN (9-20) mg/dL Glucose (74-99) mg/dL POC Glucose (mg/dL) (70-110) mg/dL Calcium (8.4-10.2) mg/dL Phosphorus (2.5-4.5) mg/dL
[2024-09-23] MEDS: IOPAMIDOL CONTRAST (ORAL USE) VIAL PO PRN (11:20)
[2024-09-23 11:46] LABS: Glucose,Whole Blood 122 mg/dL (70-110)
--- NOTE | 2024-09-23 13:26 | CT ---
EXAMINATION TYPE: CT abdomen pelvis w con DATE OF EXAM: 09/23/2024 12:53 PM COMPARISON: CT abdomen pelvis most recent from 07/29/2024 CLINICAL INDICATION: Male, 68 years old with history of evaluate for internal hernia, vomiting; evalu ate for internal hernia, vomiting. TECHNIQUE: Axial CT abdomen pelvis w con;Sagittal and coronal reformats were created on a separate w orkstation. Contrast used:100 ml mL of Isovue 300 with IV Contrast, (none if empty) Oral contrast used: with Oral Contrast (none if empty) CT DLP: 401 mGycm, Automated exposure control for dose reduction was used. FINDINGS: LOWER CHEST: Unremarkable ABDOMEN LIVER: Unremarkable simple appearing hepatic cysts posterior right hepatic lobe. GALLBLADDER AND BILE DUCTS: The gallbladder surgically absent. PANCREAS: Unremarkable. SPLEEN: Unremarkable. ADRENAL GLANDS: Unremarkable. KIDNEYS AND URETERS: No evidence of hydronephrosis or obstructing renal calculus. The ureters are unr emarkable. Right renal cyst measuring 10 mm. No follow up recommended. No obstructive uropathy. PELVIS BLADDER: Bladder wall diverticulum of the left lateral aspect of the bladder. No evidence for wall th ickening or mass given limitations of exam. REPRODUCTIVE: Prostate is enlarged in size measuring 4.7 cm in transverse dimension. ABDOMEN & PELVIS STOMACH AND BOWEL: Streak artifact seen throughout the exam due to high-density contrast within the o sseous bowel. No evidence of bowel obstruction. No dilation of small bowel. No definitive evidence fo r internal hernia. High-density contrast extends to the rectum. No finding to suggest internal hernia . PERITONEUM/RETROPERITONEUM: No evidence of pneumoperitoneum or free fluid. VASCULATURE: No evidence of aortic aneurysm. MUSCULOSKELETAL: No acute osseous abnormalities. Mild disc degeneration changes are present throughou t the thoracolumbar spine. LYMPH NODES: No gross evidence for lymphadenopathy. SOFT TISSUE/ABDOMINAL WALL: Fat-containing inguinal hernia on the right. PEG tube located within the gastric lumen. No ventral wall hernia identified. IMPRESSION: 1. No evidence for dilated small bowel to suggest small bowel obstruction which would be a secondary sign of internal hernia. 2. Right fat containing inguinal hernia. 3. Prostatomegaly, correlate with serum PSA. 4. Left lateral bladder wall diverticulum. [facility], , 09/23/2024 1:23 PM
[2024-09-23] MEDS: DEXTROSE 5% IN WATER 1,000 ML IV SCH (14:16)
[2024-09-23 17:04] LABS: Glucose,Whole Blood 215 mg/dL (70-110)
[2024-09-23 19:50] LABS: Glucose,Whole Blood 157 mg/dL (70-110)
--- NOTE | 2024-09-23 23:12 | P.PN ---
Subjective Progress Note Date: 09/22/24 68 years old male who was recently discharged from this facility about 4 days ago for nausea vomiting and malnutrition status post PEG tube placement by surgery team. Once he been discharged he started having recurrent nausea vomiting again, he vomited 6 times since yesterday with no blood. Associated with epigastric pain and tenderness His troponin was elevated but EKG showing SVT. He has been evaluated by sleeve bottom feller as well during last admission for elevated troponin. Currently denies chest pain or dyspnea. No specific urinary symptoms. No headache dizziness weakness or numbness He is pain mainly in the epigastric area about 9/10 felt like squeezing nonradiating with no precipitating or relieving factors. He states that the pain is similar to last time. He has no bowel movement. He is using the PEG tube at home. He got Zofran 4 mg and is requesting more medicine He is hemodynamically stable and afebrile He has unremarkable CBC, BMP, LFT. WBC is mildly elevated at 10.4 at 11. Lactic acid 4.6 came back to normal at 1.7. Troponin is elevated 0.065. KUB showing nonspecific gas bowel pattern. EKG showed SVT with a rate of [address] depression in V3-V5 09/14/2024 Patient is seen and evaluated in room at bedside; continues to have episodes of vomiting; patient has PEG tube placed and currently is to suction with bilious output; remains on TPN Vital signs stable with temperature of 97.4, pulse 82, respirations 16 and blood pressure 134/86, O2 saturation 98% on room air Lab review reveals sodium of 138, potassium 2.9, BUNs/creatinine of 6/0.41, blood glucose ranging between 130-160, magnesium low at 1.5 -Electrolyte replacement has been ordered - General Surgery on board; patient continues to have nausea and vomiting; likely related to recurrent hiatal hernia or possible internal hernia; surgery recommending repeat CT of the chest and abdomen on Monday - Continue with TPN at this time 09/15/2024 Patient is seen and evaluated again to follow-up on intractable nausea and vomiting; reports no vomiting since yesterday; remains on TPN Vital signs are stable with temperature 98.1, pulse 63, respirations 17 and blood pressure 118/79 Lab review shows WBC of 6.6, hemoglobin of 11 and platelet count of 298, sodium 136, potassium 3.4, BUNs/creatinine of 8/2.47 and blood glucose of 103 -Surgery to clear patient for tube feed 09/16/2024 Patient seen in follow-up today with general surgery following. Patient maintained on TPN and per general surgery okay to initiate tube feeds again and monitor for tolerance. Potassium slightly low and will replace per protocol follow-up BMP in the a.m. Electrolytes being closely monitored and adjusted per dietary and pharmacy due to TPN as well. Patient continues to have clearish frothy phlegm spit up with nausea and denies any vomiting at this time. No further bleeding noted and hemoglobin is stable. Continued barium residual and is being started on bowel regimen as patient has not had a bowel movement in a few days and recommend repeat CT to evaluate once barium has been cleared. Patient is afebrile with no reports of chest pain or shortness of breath. 09/17/2024 Patient is seen in follow-up today with general surgery following. Patient is continued to be n.p.o. and maintained on TPN. Tube feeds were initiated yesterday although apparently patient had been vomiting and not tolerating and tube feeds currently on hold. Repeat abdominal x-ray noted to continue to have barium noted in the colon and awaiting clearance for repeat CT to assess hernia. No immediate plans for surgical intervention although waiting these further images to discuss the possibility of a need for hernia repair. Patient is extremely weak and would recommend PT/OT therapy. Zosyn was started per surgery team, will monitor closely for aspiration and strongly recommend aspiration p recautions with head of the bed elevated 35 to 45 degrees at all times 09/18/2024 Patient is seen in follow-up today continues to have significant nausea with dry heaving and spitting up frothy secretions. Patient is maintained on TPN and PEG tube feedings are on hold and also medications through the PEG tube are being held. Patient is n.p.o. and will continue. Per surgery PEG tube to drainage with strict intake and output. Patient maintained on antibiotics and tachycardic, EKG being obtained. Repeat abdominal x-ray continues show contrast minimally moved towards the rectum and is being started on enema per surgery. Plan for repeat CT once contrast is cleared to evaluate hiatal hernia. 09/19/2024 Patient is seen in follow-up this morning with general surgery following continued on PEG tube to drainage with n.p.o. and holding tube feeds at this time. Patient is continued on TPN and tolerating thus far. Patient continues to report he is dry heaving and spitting up and frequently with hiccups as well. Plan is for repeat soapsuds enema and follow-up abdominal x-rays tomorrow to assess if contrast has moved as general surgery would like to obtain CT for hernia evaluation. Patient is lethargic although arousable is alert and oriented responding to questions and commands appropriately. Patient encouraged to increase activity as tolerated and sit up out of the bed more frequently. Patient has been laying in bed and mostly sleeping during this hospitalization. 09/20/2024 Patient is seen in follow-up with general surgery following continue to have PEG tube to drainage and n.p.o. Patient is continued on TPN and electrolytes being adjusted per dietary and pharmacy. Patient continues to have constant nausea with occasional spitting up and no reported vomiting at this time. Patient denies pain. Patient with repeat abdominal x-ray continues to show barium and awaiting for clearance to undergo repeat CT per surgery for evaluation of hernia. Patient will be started on GoLytely prep via PEG tube per surgery recommendations slowly over the weekend and repeat abdominal imaging on Monday. Patient with low-grade temps is continued on antibiotics. Encourage sitting up out of the bed more frequently. Patient has been laying in the bed this entire hospitalization and only minimally sitting up. Patient is extremely high risk for aspirating as well. Recommend head of the bed 30 to 45 degrees at all times. 09/21/2024 Patient is currently sitting on side of the bed. Awake alert oriented. Feels weak. No complaints of chest pain or shortness of breath. On room air. Otherwise patient did have a bowel movement today afternoon. Patient is getting GoLytely. No complaints of abdominal pain. Patient is on TPN. Nothing by mouth. General surgery is on board. Laboratory data showed WBC 12.4 hemoglobin 9.1 and MCV 98.3 and platelets 181 sodium 141 potassium 3.3 chloride 109 bicarb is 29 BUN 29 creatinine 0.73 and pressure 115 calcium 8.2. 09/22/2024 Patient is currently resting in the bed. Awake alert and oriented. Respiration feels weak. Patient did have 3 bowel movements yesterday. Currently nothing by mouth. Blood sugar is controlled. Continued on TPN. 500/2 WBC 12.8 hemoglobin 8.5 and platelets 195 sodium 147 potassium 4.0 chloride 103 bicarbonate 27 BUN 35 creatinine 0.84 and blood sugar 156. Patient was started on D5 water. General surgery is on board. review of systems: Constitutional: reports of fatigue, no fever, or chills Cardiovascular: No reports of chest pain or palpitations Respiratory: No reports of shortness of breath or cough GI: reports of continued constant nausea, denies vomiting, but is dry heaving and spitting up frothy clear liquid, had a bowel movement yesterday : No reports of dysuria or retention Neurovascular: reports of generalized weakness All medications have been reviewed Physical exam: Gen: This is a 68-year-old male who is asleep although easily arousable, alert and oriented x 3, thin built, elderly appearing, ill-appearing, cachectic HEENT: Head is atraumatic, normocephalic. Pupils equal, round. Sclerae is anicteric. NECK: Supple. No JVD. No lymphadenopathy. No thyromegaly. LUNGS: Diminished breath sounds bilaterally otherwise clear to auscultation. No wheezes or rhonchi. No intercostal retractions. HEART: S1, S2 are muffled ABDOMEN: Soft. Thin. Bowel sounds are present. No masses. No tenderness. PEG tube noted to drainage EXTREMITIES: No pedal edema. No calf tenderness. Significant cachexia noted throughout upper and lower extremities NEUROLOGICAL: Patient is alert and oriented x3. Appears depressed, flat affect cranial nerves 2 through 12 are grossly intact. Diffusely weak Assessment Hematemesis with concerns of possible GI bleed, now resolved Recurrent nausea vomiting, intractable requiring PEG tube placement during last admission multifactorial likely secondary to intermittent internal hernia as well as significant history of esophageal dysmotility disorder Epigastric pain and tenderness likely secondary to gastritis Hypernatremia due to dehydration and volume depletion. Elevated troponin could be secondary to dehydration, evaluated by cardiology during last admission Severe calorie protein malnutrition with a BMI of 18.6 Hypertension Hyperlipidemia Anxiety/depression, was evaluated by psychiatry Distal esophagitis Hiatal hernia history GI prophylaxis DVT prophylaxis Full code Plan: Patient was started on D5 water at 75 cc/h. Continue IV Protonix continues on TPN, currently n.p.o. and tube feeds are on hold and PEG tube is continued to drainage per general surgery General surgery following with no plans of intervention at this time recommending repeat CT in the next couple of days to assess if barium has moved through the colon and to further evaluate hiatal hernia. Multiple abdominal images over the last week showing continued barium and will undergo GoLytely prep over the weekend via PEG tube per surgery and repeat abdominal x-ray on Monday. Soapsuds enema ordered Patient continues with nausea and dry heaving and will be n.p.o. for now, tube feedings were started yesterday although not tolerating and currently held, continue TPN. Tube feedings being held per surgery and PEG tube to drainage recommend strict intake and output. Continue with Zofran and Reglan which he is getting [id number] Encouraged increase activity as tolerated with sitting up out of the bed more often and in the chair. Patient is significantly weak and will have PT/T therapy evaluate the patient. Patient has been mostly lying in the bed and sleeping throughout most of the day. Overall prognosis is guarded Objective - Vital Signs Vital signs: Vital Signs Temp 98.0 F 09/22/24 07:46 Pulse 82 09/22/24 07:46 Resp 16 09/22/24 07:46 BP 119/77 09/22/24 07:46 Pulse Ox 97 09/22/24 07:46 FiO2 Intake & Output 09/21/24 09/22/24 09/22/24 18:59 06:59 18:59 Intake Total 1021 Output Total 625 20 200 Balance 396 -20 -200 Weight 62 kg Intake: Intake, IV Titration 1021 Amount Mvi, Adult No.4 with Vit 1021 K 10 ml Trace (Conc-1Ml/ Dose) 1 ml Potassium Phosphate 9 mmol Sodium Chloride 4Meq/ml Vial 12 meq Potassium Chloride 8 meq In Amino Acid 5%-D20w +Lytes*E* 1,000 ml @ 70 mls/hr IV .BY DURATION GIRISH Rx#:[id number] Output: Gastric Drainage 100 Urine 525 200 Other 20 Other: Voiding Method Incontinent Urinal Urinal Incontinent # Voids 2 # Bowel Movements 1 1 - Labs CBC & Chem 7: 09/23/24 07:15 09/23/24 07:15 Labs: Abnormal Lab Results - Last 24 Hours (Table) 09/21/24 09/21/24 09/22/24 Range/Units 16:35 23:34 02:56 WBC 12.83 H (4.50-10.00) X 10*3/uL RBC 2.75 L (4.40-5.60) X 10*6/uL Hgb 8.5 L (13.0-17.0) g/dL Hct 26.6 L (39.6-50.0) % RDW 21.0 H (11.5-14.5) % MPV 13.1 H (9.5-12.2) FL Immature Gran # 0.11 H (0.00-0.04) X 10*3/uL Neutrophils # 11.45 H (1.80-7.70) X 10*3/uL Lymphocytes # 0.77 L (0.90-5.00) X 10*3/uL Sodium (137-145) mmol/L Chloride (98-107) mmol/L BUN (9-20) mg/dL Glucose (74-99) mg/dL POC Glucose (mg/dL) 176 H 169 H (70-110) mg/dL Calcium (8.4-10.2) mg/dL Alkaline Phosphatase (38-126) U/L Total Protein (6.3-8.2) g/dL Albumin (3.5-5.0) g/dL 09/22/24 09/22/24 Range/Units 02:56 06:27 WBC (4.50-10.00) X 10*3/uL RBC (4.40-5.60) X 10*6/uL Hgb (13.0-17.0) g/dL Hct (39.6-50.0) % RDW (11.5-14.5) % MPV (9.5-12.2) FL Immature Gran # (0.00-0.04) X 10*3/uL Neutrophils # (1.80-7.70) X 10*3/uL Lymphocytes # (0.90-5.00) X 10*3/uL Sodium 147 H (137-145) mmol/L Chloride 113 H (98-107) mmol/L BUN 35 H (9-20) mg/dL Glucose 156 H (74-99) mg/dL POC Glucose (mg/dL) 184 H (70-110) mg/dL Calcium 8.3 L (8.4-10.2) mg/dL Alkaline Phosphatase 182 H (38-126) U/L Total Protein 4.3 L (6.3-8.2) g/dL Albumin 2.0 L (3.5-5.0) g/dL
--- NOTE | 2024-09-23 23:15 | P.PN ---
Subjective Progress Note Date: 09/23/24 68 years old male who was recently discharged from this facility about 4 days ago for nausea vomiting and malnutrition status post PEG tube placement by surgery team. Once he been discharged he started having recurrent nausea vomiting again, he vomited 6 times since yesterday with no blood. Associated with epigastric pain and tenderness His troponin was elevated but EKG showing SVT. 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 Currently denies chest pain or dyspnea. No specific urinary symptoms. No headache dizziness weakness or numbness He is pain mainly in the epigastric area about 9/10 felt like squeezing nonradiating with no precipitating or relieving factors. He states that the pain is similar to last time. He has no bowel movement. He is using the PEG tube at home. He got Zofran 4 mg and is requesting more medicine He is hemodynamically stable and afebrile He has unremarkable CBC, BMP, LFT. WBC is mildly elevated at 10.4 at 11. Lactic acid 4.6 came back to normal at 1.7. Troponin is elevated 0.065. KUB showing nonspecific gas bowel pattern. EKG showed SVT with a rate of [address] depression in V3-V5 09/14/2024 Patient is seen and evaluated in room at bedside; continues to have episodes of vomiting; patient has PEG tube placed and currently is to suction with bilious output; remains on TPN Vital signs stable with temperature of 97.4, pulse 82, respirations 16 and blood pressure 134/86, O2 saturation 98% on room air Lab review reveals sodium of 138, potassium 2.9, BUNs/creatinine of 6/0.41, blood glucose ranging between 130-160, magnesium low at 1.5 -Electrolyte replacement has been ordered - General Surgery on board; patient continues to have nausea and vomiting; likely related to recurrent hiatal hernia or possible internal hernia; surgery recommending repeat CT of the chest and abdomen on Monday - Continue with TPN at this time 09/15/2024 Patient is seen and evaluated again to follow-up on intractable nausea and vomiting; reports no vomiting since yesterday; remains on TPN Vital signs are stable with temperature 98.1, pulse 63, respirations 17 and blood pressure 118/79 Lab review shows WBC of 6.6, hemoglobin of 11 and platelet count of 298, sodium 136, potassium 3.4, BUNs/creatinine of 8/2.47 and blood glucose of 103 -Surgery to clear patient for tube feed 09/16/2024 Patient seen in follow-up today with general surgery following. Patient maintained on TPN and per general surgery okay to initiate tube feeds again and monitor for tolerance. Potassium slightly low and will replace per protocol follow-up BMP in the a.m. Electrolytes being closely monitored and adjusted per dietary and pharmacy due to TPN as well. Patient continues to have clearish frothy phlegm spit up with nausea and denies any vomiting at this time. No further bleeding noted and hemoglobin is stable. Continued barium residual and is being started on bowel regimen as patient has not had a bowel movement in a few days and recommend repeat CT to evaluate once barium has been cleared. Patient is afebrile with no reports of chest pain or shortness of breath. 09/17/2024 Patient is seen in follow-up today with general surgery following. Patient is continued to be n.p.o. and maintained on TPN. Tube feeds were initiated yesterday although apparently patient had been vomiting and not tolerating and tube feeds currently on hold. Repeat abdominal x-ray noted to continue to have barium noted in the colon and awaiting clearance for repeat CT to assess hernia. No immediate plans for surgical intervention although waiting these further images to discuss the possibility of a need for hernia repair. Patient is extremely weak and would recommend PT/OT therapy. Zosyn was started per surgery team, will monitor closely for aspiration and strongly recommend aspiration p recautions with head of the bed elevated 35 to 45 degrees at all times 09/18/2024 Patient is seen in follow-up today continues to have significant nausea with dry heaving and spitting up frothy secretions. Patient is maintained on TPN and PEG tube feedings are on hold and also medications through the PEG tube are being held. Patient is n.p.o. and will continue. Per surgery PEG tube to drainage with strict intake and output. Patient maintained on antibiotics and tachycardic, EKG being obtained. Repeat abdominal x-ray continues show contrast minimally moved towards the rectum and is being started on enema per surgery. Plan for repeat CT once contrast is cleared to evaluate hiatal hernia. 09/19/2024 Patient is seen in follow-up this morning with general surgery following continued on PEG tube to drainage with n.p.o. and holding tube feeds at this time. Patient is continued on TPN and tolerating thus far. Patient continues to report he is dry heaving and spitting up and frequently with hiccups as well. Plan is for repeat soapsuds enema and follow-up abdominal x-rays tomorrow to assess if contrast has moved as general surgery would like to obtain CT for hernia evaluation. Patient is lethargic although arousable is alert and oriented responding to questions and commands appropriately. Patient encouraged to increase activity as tolerated and sit up out of the bed more frequently. Patient has been laying in bed and mostly sleeping during this hospitalization. 09/20/2024 Patient is seen in follow-up with general surgery following continue to have PEG tube to drainage and n.p.o. Patient is continued on TPN and electrolytes being adjusted per dietary and pharmacy. Patient continues to have constant nausea with occasional spitting up and no reported vomiting at this time. Patient denies pain. Patient with repeat abdominal x-ray continues to show barium and awaiting for clearance to undergo repeat CT per surgery for evaluation of hernia. Patient will be started on GoLytely prep via PEG tube per surgery recommendations slowly over the weekend and repeat abdominal imaging on Monday. Patient with low-grade temps is continued on antibiotics. Encourage sitting up out of the bed more frequently. Patient has been laying in the bed this entire hospitalization and only minimally sitting up. Patient is extremely high risk for aspirating as well. Recommend head of the bed 30 to 45 degrees at all times. 09/21/2024 Patient is currently sitting on side of the bed. Awake alert oriented. Feels weak. No complaints of chest pain or shortness of breath. On room air. Otherwise patient did have a bowel movement today afternoon. Patient is getting GoLytely. No complaints of abdominal pain. Patient is on TPN. Nothing by mouth. General surgery is on board. Laboratory data showed WBC 12.4 hemoglobin 9.1 and MCV 98.3 and platelets 181 sodium 141 potassium 3.3 chloride 109 bicarb is 29 BUN 29 creatinine 0.73 and pressure 115 calcium 8.2. 09/22/2024 Patient is currently resting in the bed. Awake alert and oriented. Respiration feels weak. Patient did have 3 bowel movements yesterday. Currently nothing by mouth. Blood sugar is controlled. Continued on TPN. 500/2 WBC 12.8 hemoglobin 8.5 and platelets 195 sodium 147 potassium 4.0 chloride 103 bicarbonate 27 BUN 35 creatinine 0.84 and blood sugar 156. Patient was started on D5 water. General surgery is on board. 09/23/2024 Patient is lying in the bed. He feels weak. No complaints of chest pain or shortness of breath. Still having nausea. No aggressive vomiting. No bowel movement today. Patient underwent CT of the abdomen pelvis today. Report pending. No cough or sputum production. Patient has been afebrile. Otherwise laboratory data showed sodium level increased to 152. Continued on D5 water at 100 cc/h. Potassium 3.3 chloride 106 bicarb is 28 BUN 38 and creatinine 0.90 and phosphorus 5.0. General surgery is on board. review of systems: Constitutional: reports of fatigue, no fever, or chills Cardiovascular: No reports of chest pain or palpitations Respiratory: No reports of shortness of breath or cough GI: reports of continued constant nausea, denies vomiting, but is dry heaving and spitting up frothy clear liquid, had a bowel movement yesterday : No reports of dysuria or retention Neurovascular: reports of generalized weakness All medications have been reviewed Physical exam: Gen: This is a 68-year-old male who is asleep although easily arousable, alert and oriented x 3, thin built, elderly appearing, ill-appearing, cachectic HEENT: Head is atraumatic, normocephalic. Pupils equal, round. Sclerae is anicteric. NECK: Supple. No JVD. No lymphadenopathy. No thyromegaly. LUNGS: Diminished breath sounds bilaterally otherwise clear to auscultation. No wheezes or rhonchi. No intercostal retractions. HEART: S1, S2 are muffled ABDOMEN: Soft. Thin. Bowel sounds are present. No masses. No tenderness. PEG tube noted to drainage EXTREMITIES: No pedal edema. No calf tenderness. Significant cachexia noted throughout upper and lower extremities NEUROLOGICAL: Patient is alert and oriented x3. Appears depressed, flat affect cranial nerves 2 through 12 are grossly intact. Diffusely weak Assessment Hematemesis with concerns of possible GI bleed, now resolved Recurrent nausea vomiting, intractable requiring PEG tube placement during last admission multifactorial likely secondary to intermittent internal hernia as well as significant history of esophageal dysmotility disorder Epigastric pain and tenderness likely secondary to gastritis Hypernatremia due to dehydration and volume depletion. Elevated troponin could be secondary to dehydration, evaluated by cardiology during last admission Severe calorie protein malnutrition with a BMI of 18.6 Hypertension Hyperlipidemia Anxiety/depression, was evaluated by psychiatry Distal esophagitis Hiatal hernia history GI prophylaxis DVT prophylaxis Full code Plan: Patient was started on D5 water increased at 100 cc/h. Continue IV Protonix continues on TPN, currently n.p.o. and tube feeds are on hold and PEG tube is continued to drainage per general surgery General surgery following with no plans of intervention at this time recommending repeat CT in the next couple of days to assess if barium has moved through the colon and to further evaluate hiatal hernia. Multiple abdominal images over the last week showing continued barium and will undergo GoLytely prep over the weekend via PEG tube per surgery and repeat abdominal x-ray on Monday. Soapsuds enema ordered Patient continues with nausea and dry heaving and will be n.p.o. for now, tube feedings were started yesterday although not tolerating and currently held, continue TPN. Tube feedings being held per surgery and PEG tube to drainage recommend strict intake and output. Continue with Zofran and Reglan which he is getting [id number] Encouraged increase activity as tolerated with sitting up out of the bed more often and in the chair. Patient is significantly weak and will have PT/T therapy evaluate the patient. Patient has been mostly lying in the bed and sleeping throughout most of the day. Overall prognosis is guarded Objective - Vital Signs Vital signs: Vital Signs Temp 97.3 F L 09/23/24 19:48 Pulse 97 09/23/24 19:48 Resp 18 09/23/24 19:48 BP 157/91 09/23/24 19:48 Pulse Ox 97 09/23/24 19:48 FiO2 Intake & Output 09/23/24 09/23/24 09/24/24 06:59 18:59 06:59 Intake Total Output Total 225 Balance 1726. Weight 62.5 kg 62.5 kg Intake: Intake, IV Titration Amount Mvi, Adult No.4 with Vit 942.667 K 10 ml Trace (Conc-1Ml/ Dose) 1 ml Potassium Phosphate 9 mmol Sodium Chloride 4Meq/ml Vial 12 meq Potassium Chloride 8 meq In Amino Acid 5%-D20w +Lytes*E* 1,000 ml @ 70 mls/hr IV .BY DURATION FORMERLY [facility] Rx#:[id number] Potassium Phosphate 9 1010 mmol Sodium Chloride 4Meq /ml Vial 12 meq Potassium Chloride 8 meq In Amino Acid 5%-D20w+Lytes*E* 1, 000 ml @ 70 mls/hr IV .BY DURATION [facility] Rx#: [id number] Output: Urine 225 - Labs CBC & Chem 7: 09/23/24 07:15 09/23/24 07:15 Labs: Abnormal Lab Results - Last 24 Hours (Table) 09/23/24 09/23/24 09/23/24 Range/Units 00:02 06:28 07:15 WBC (4.50-10.00) 10*3/uL RBC (4.40-5.60) 10*6/uL Hgb (13.0-17.0) g/dL Hct (39.6-50.0) % RDW (11.5-14.5) % MPV (9.5-12.2) fL Immature Gran # (0.00-0.04) 10*3/uL Neutrophils # (1.80-7.70) 10*3/uL Lymphocytes # (0.90-5.00) 10*3/uL Sodium 152 H (137-145) mmol/L Potassium 3.3 L (3.5-5.1) mmol/L Chloride 116 H (98-107) mmol/L BUN 38 H (9-20) mg/dL Glucose 146 H (74-99) mg/dL POC Glucose (mg/dL) 172 H 170 H (70-110) mg/dL Calcium 8.0 L (8.4-10.2) mg/dL Phosphorus 5.0 H (2.5-4.5) mg/dL 09/23/24 09/23/24 09/23/24 Range/Units 07:15 11:44 17:02 WBC 12.39 H (4.50-10.00) 10*3/uL RBC 2.97 L (4.40-5.60) 10*6/uL Hgb 9.2 L (13.0-17.0) g/dL Hct 27.6 L (39.6-50.0) % RDW 20.9 H (11.5-14.5) % MPV 12.7 H (9.5-12.2) fL Immature Gran # 0.13 H (0.00-0.04) 10*3/uL Neutrophils # 10.72 H (1.80-7.70) 10*3/uL Lymphocytes # 0.87 L (0.90-5.00) 10*3/uL Sodium (137-145) mmol/L Potassium (3.5-5.1) mmol/L Chloride (98-107) mmol/L BUN (9-20) mg/dL Glucose (74-99) mg/dL POC Glucose (mg/dL) 122 H 215 H (70-110) mg/dL Calcium (8.4-10.2) mg/dL Phosphorus (2.5-4.5) mg/dL 09/23/24 Range/Units 19:48 WBC (4.50-10.00) 10*3/uL RBC (4.40-5.60) 10*6/uL Hgb (13.0-17.0) g/dL Hct (39.6-50.0) % RDW (11.5-14.5) % MPV (9.5-12.2) fL Immature Gran # (0.00-0.04) 10*3/uL Neutrophils # (1.80-7.70) 10*3/uL Lymphocytes # (0.90-5.00) 10*3/uL Sodium (137-145) mmol/L Potassium (3.5-5.1) mmol/L Chloride (98-107) mmol/L BUN (9-20) mg/dL Glucose (74-99) mg/dL POC Glucose (mg/dL) 157 H (70-110) mg/dL Calcium (8.4-10.2) mg/dL Phosphorus (2.5-4.5) mg/dL
[2024-09-24 00:24] LABS: Glucose,Whole Blood 174 mg/dL (70-110)
[2024-09-24 04:35] LABS: African American GFR (CKD) >90 (>60 ml/min/1.73 sqM); Anion Gap 7 mmol/L; Blood Urea Nitrogen 39 mg/dL (9-20); Calcium 8.7 mg/dL (8.4-10.2); Carbon Dioxide 26 mmol/L (22-30); Chloride 117 mmol/L (98-107); Glucose 172 mg/dL (74-99); Non-African American GFR(CKD) 84 (>60 ml/min/1.73 sqM); Sodium 150 mmol/L (137-145)
[2024-09-24 04:36] LABS: Magnesium 2.5 mg/dL (1.6-2.3); Phosphorus 3.4 mg/dL (2.5-4.5); Potassium 4.8 mmol/L (3.5-5.1)
[2024-09-24 06:23] LABS: Glucose,Whole Blood 185 mg/dL (70-110)
[2024-09-24 12:09] LABS: Glucose,Whole Blood 179 mg/dL (70-110)
--- NOTE | 2024-09-24 12:39 | P.PN ---
Subjective Progress Note Date: 09/24/24 SURGICAL PROGRESS NOTE CHIEF COMPLAINT: Recurrent nausea and vomiting HISTORY OF PRESENT ILLNESS: Patient is sleeping comfortably in bed. He is still having episodes of spitting up clearish fluid. CT scan abdomen pelvis completed with addendum noted by radiologist jejunum does cross midline where there is narrowing of the third portion of the duodenum as it crosses the aorta and SMA. Findings suggest SMA syndrome. Right fat-containing inguinal hernia. Afebrile. na 150 PHYSICAL EXAM: VITAL SIGNS: Reviewed. GENERAL: Well-developed in no acute distress. ABDOMEN: Soft. Nondistended. Nontender. PEG tube site clean dry and intact. NEUROLOGIC: Alert and oriented. Cranial nerves II through XII grossly intact. ASSESSMENT: 1. SMA syndrome 2. Upper GI bleed with bright red blood and coffee-ground emesis. now resolved 3. Intractable nausea and vomiting 4. History of esophageal dysmotility disorder 5. Hiatal hernia 6. Esophagitis 7. Severe protein calorie malnutrition PLAN: -Patient scheduled for gastrojejunostomy tomorrow with Dr. Pavon -Keep patient n.p.o. -Continue TPN for nutrition support -PEG tube to drainage -Medicine service is correcting the hypernatremia Physician [employer] note has been reviewed by physician. Signing provider agrees with the documented findings, assessment, and plan of care. Objective - Vital Signs Vital signs: Vital Signs Temp 98.1 F 09/24/24 07:45 Pulse 110 H 09/24/24 09:30 Resp 17 09/24/24 07:45 BP 152/82 09/24/24 09:30 Pulse Ox 98 09/24/24 07:45 FiO2 Intake & Output 09/23/24 09/24/24 09/24/24 18:59 06:59 18:59 Output Total 40 Balance -40 Weight 62.5 kg 51 kg Output: Gastric Drainage 20 Drainage 20 Abdomen 20 Other: # Voids 2 - Labs CBC & Chem 7: 09/23/24 07:15 09/24/24 03:17 Labs: Abnormal Lab Results - Last 24 Hours (Table) 09/23/24 09/23/24 09/23/24 Range/Units 11:44 17:02 19:48 Sodium (137-145) mmol/L Chloride (98-107) mmol/L BUN (9-20) mg/dL Glucose (74-99) mg/dL POC Glucose (mg/dL) 122 H 215 H 157 H (70-110) mg/dL Magnesium (1.6-2.3) mg/dL 09/24/24 09/24/24 09/24/24 Range/Units 00:23 03:17 06:22 Sodium 150 H (137-145) mmol/L Chloride 117 H (98-107) mmol/L BUN 39 H (9-20) mg/dL Glucose 172 H (74-99) mg/dL POC Glucose (mg/dL) 174 H 185 H (70-110) mg/dL Magnesium 2.5 H (1.6-2.3) mg/dL
[2024-09-24 16:58] LABS: Glucose,Whole Blood 210 mg/dL (70-110)
[2024-09-24] MEDS: 1: MVI, ADULT NO.4 WITH VIT K 10 ML, TRACE (CONC-1ML/DOSE) 1 ML, CALCIUM GLUCONATE 1 GM, IV SCH (17:10)
[2024-09-24 20:06] LABS: Glucose,Whole Blood 176 mg/dL (70-110)
--- NOTE | 2024-09-24 23:32 | P.PN ---
Subjective Progress Note Date: 09/24/24 68 years old male who was recently discharged from this facility about 4 days ago for nausea vomiting and malnutrition status post PEG tube placement by surgery team. Once he been discharged he started having recurrent nausea vomiting again, he vomited 6 times since yesterday with no blood. Associated with epigastric pain and tenderness His troponin was elevated but EKG showing SVT. He has been evaluated by cotton roll packer as well during last admission for elevated troponin. Currently denies chest pain or dyspnea. No specific urinary symptoms. No headache dizziness weakness or numbness He is pain mainly in the epigastric area about 9/10 felt like squeezing nonradiating with no precipitating or relieving factors. He states that the pain is similar to last time. He has no bowel movement. He is using the PEG tube at home. He got Zofran 4 mg and is requesting more medicine He is hemodynamically stable and afebrile He has unremarkable CBC, BMP, LFT. WBC is mildly elevated at 10.4 at 11. Lactic acid 4.6 came back to normal at 1.7. Troponin is elevated 0.065. KUB showing nonspecific gas bowel pattern. EKG showed SVT with a rate of [address] depression in V3-V5 09/14/2024 Patient is seen and evaluated in room at bedside; continues to have episodes of vomiting; patient has PEG tube placed and currently is to suction with bilious output; remains on TPN Vital signs stable with temperature of 97.4, pulse 82, respirations 16 and blood pressure 134/86, O2 saturation 98% on room air Lab review reveals sodium of 138, potassium 2.9, BUNs/creatinine of 6/0.41, blood glucose ranging between 130-160, magnesium low at 1.5 -Electrolyte replacement has been ordered - General Surgery on board; patient continues to have nausea and vomiting; likely related to recurrent hiatal hernia or possible internal hernia; surgery recommending repeat CT of the chest and abdomen on Monday - Continue with TPN at this time 09/15/2024 Patient is seen and evaluated again to follow-up on intractable nausea and vomiting; reports no vomiting since yesterday; remains on TPN Vital signs are stable with temperature 98.1, pulse 63, respirations 17 and blood pressure 118/79 Lab review shows WBC of 6.6, hemoglobin of 11 and platelet count of 298, sodium 136, potassium 3.4, BUNs/creatinine of 8/2.47 and blood glucose of 103 -Surgery to clear patient for tube feed 09/16/2024 Patient seen in follow-up today with general surgery following. Patient maintained on TPN and per general surgery okay to initiate tube feeds again and monitor for tolerance. Potassium slightly low and will replace per protocol follow-up BMP in the a.m. Electrolytes being closely monitored and adjusted per dietary and pharmacy due to TPN as well. Patient continues to have clearish frothy phlegm spit up with nausea and denies any vomiting at this time. No further bleeding noted and hemoglobin is stable. Continued barium residual and is being started on bowel regimen as patient has not had a bowel movement in a few days and recommend repeat CT to evaluate once barium has been cleared. Patient is afebrile with no reports of chest pain or shortness of breath. 09/17/2024 Patient is seen in follow-up today with general surgery following. Patient is continued to be n.p.o. and maintained on TPN. Tube feeds were initiated yesterday although apparently patient had been vomiting and not tolerating and tube feeds currently on hold. Repeat abdominal x-ray noted to continue to have barium noted in the colon and awaiting clearance for repeat CT to assess hernia. No immediate plans for surgical intervention although waiting these further images to discuss the possibility of a need for hernia repair. Patient is extremely weak and would recommend PT/OT therapy. Zosyn was started per surgery team, will monitor closely for aspiration and strongly recommend aspiration p recautions with head of the bed elevated 35 to 45 degrees at all times 09/18/2024 Patient is seen in follow-up today continues to have significant nausea with dry heaving and spitting up frothy secretions. Patient is maintained on TPN and PEG tube feedings are on hold and also medications through the PEG tube are being held. Patient is n.p.o. and will continue. Per surgery PEG tube to drainage with strict intake and output. Patient maintained on antibiotics and tachycardic, EKG being obtained. Repeat abdominal x-ray continues show contrast minimally moved towards the rectum and is being started on enema per surgery. Plan for repeat CT once contrast is cleared to evaluate hiatal hernia. 09/19/2024 Patient is seen in follow-up this morning with general surgery following continued on PEG tube to drainage with n.p.o. and holding tube feeds at this time. Patient is continued on TPN and tolerating thus far. Patient continues to report he is dry heaving and spitting up and frequently with hiccups as well. Plan is for repeat soapsuds enema and follow-up abdominal x-rays tomorrow to assess if contrast has moved as general surgery would like to obtain CT for hernia evaluation. Patient is lethargic although arousable is alert and oriented responding to questions and commands appropriately. Patient encouraged to increase activity as tolerated and sit up out of the bed more frequently. Patient has been laying in bed and mostly sleeping during this hospitalization. 09/20/2024 Patient is seen in follow-up with general surgery following continue to have PEG tube to drainage and n.p.o. Patient is continued on TPN and electrolytes being adjusted per dietary and pharmacy. Patient continues to have constant nausea with occasional spitting up and no reported vomiting at this time. Patient denies pain. Patient with repeat abdominal x-ray continues to show barium and awaiting for clearance to undergo repeat CT per surgery for evaluation of hernia. Patient will be started on GoLytely prep via PEG tube per surgery recommendations slowly over the weekend and repeat abdominal imaging on Monday. Patient with low-grade temps is continued on antibiotics. Encourage sitting up out of the bed more frequently. Patient has been laying in the bed this entire hospitalization and only minimally sitting up. Patient is extremely high risk for aspirating as well. Recommend head of the bed 30 to 45 degrees at all times. 09/21/2024 Patient is currently sitting on side of the bed. Awake alert oriented. Feels weak. No complaints of chest pain or shortness of breath. On room air. Otherwise patient did have a bowel movement today afternoon. Patient is getting GoLytely. No complaints of abdominal pain. Patient is on TPN. Nothing by mouth. General surgery is on board. Laboratory data showed WBC 12.4 hemoglobin 9.1 and MCV 98.3 and platelets 181 sodium 141 potassium 3.3 chloride 109 bicarb is 29 BUN 29 creatinine 0.73 and pressure 115 calcium 8.2. 09/22/2024 Patient is currently resting in the bed. Awake alert and oriented. Respiration feels weak. Patient did have 3 bowel movements yesterday. Currently nothing by mouth. Blood sugar is controlled. Continued on TPN. 500/2 WBC 12.8 hemoglobin 8.5 and platelets 195 sodium 147 potassium 4.0 chloride 103 bicarbonate 27 BUN 35 creatinine 0.84 and blood sugar 156. Patient was started on D5 water. General surgery is on board. 09/23/2024 Patient is lying in the bed. He feels weak. No complaints of chest pain or shortness of breath. Still having nausea. No aggressive vomiting. No bowel movement today. Patient underwent CT of the abdomen pelvis today. Report pending. No cough or sputum production. Patient has been afebrile. Otherwise laboratory data showed sodium level increased to 152. Continued on D5 water at 100 cc/h. Potassium 3.3 chloride 106 bicarb is 28 BUN 38 and creatinine 0.90 and phosphorus 5.0. General surgery is on board. 09/24/2024 Patient is lying in the bed. Awake alert and oriented. Denied any complaints of chest pain or shortness of breath. Unable to tolerate oral diet. Patient is getting TPN. Patient is also on IV hydration with D5 water at 100 cc/h. Sodium level slightly improved to 150 today. Follow-up sodium level tomorrow. Patient has been afebrile. However general surgery is planning for gastrojejunostomy tomorrow. CT scan abdomen pelvis completed with addendum noted by radiologist jejunum does cross midline where there is narrowing of the third portion of the duodenum as it crosses the aorta and SMA. Findings suggest SMA syndrome. Right fat- containing inguinal hernia. Laboratory data showed sodium 150 potassium 4.8 chloride 117 bicarb is 26 BUN 39 creatinine 0.94 and blood sugar 172. Magnesium 2.5. review of systems: Constitutional: reports of fatigue, no fever, or chills Cardiovascular: No reports of chest pain or palpitations Respiratory: No reports of shortness of breath or cough GI: reports of continued constant nausea, denies vomiting, but is dry heaving and spitting up frothy clear liquid, had a bowel movement yesterday : No reports of dysuria or retention Neurovascular: reports of generalized weakness All medications have been reviewed Physical exam: Gen: This is a 68-year-old male who is asleep although easily arousable, alert and oriented x 3, thin built, elderly appearing, ill-appearing, cachectic HEENT: Head is atraumatic, normocephalic. Pupils equal, round. Sclerae is anicteric. NECK: Supple. No JVD. No lymphadenopathy. No thyromegaly. LUNGS: Diminished breath sounds bilaterally otherwise clear to auscultation. No wheezes or rhonchi. No intercostal retractions. HEART: S1, S2 are muffled ABDOMEN: Soft. Thin. Bowel sounds are present. No masses. No tenderness. PEG tube noted to drainage EXTREMITIES: No pedal edema. No calf tenderness. Significant cachexia noted throughout upper and lower extremities NEUROLOGICAL: Patient is alert and oriented x3. Appears depressed, flat affect cranial nerves 2 through 12 are grossly intact. Diffusely weak Assessment Hematemesis with concerns of possible GI bleed, now resolved Recurrent nausea vomiting, intractable requiring PEG tube placement during last admission multifactorial likely secondary to intermittent internal hernia as well as significant history of esophageal dysmotility disorder Epigastric pain and tenderness likely secondary to gastritis Hypernatremia due to dehydration and volume depletion. Elevated troponin could be secondary to dehydration, evaluated by cardiology during last admission Severe calorie protein malnutrition with a BMI of 18.6 Hypertension Hyperlipidemia Anxiety/depression, was evaluated by psychiatry Distal esophagitis Hiatal hernia history GI prophylaxis DVT prophylaxis Full code Plan: Patient was started on D5 water increased at 100 cc/h. Continue IV Protonix continues on TPN, currently n.p.o. and tube feeds are on hold and PEG tube is continued to drainage per general surgery Patient continues with nausea and dry heaving and will be n.p.o. for now, tube feedings were started yesterday although not tolerating and currently held, continue TPN. Tube feedings being held per surgery and PEG tube to drainage recommend strict intake and output. General surgery is planning for gastrojejunostomy tomorrow. Continue with Zofran and Reglan which he is getting [id number] Encouraged increase activity as tolerated with sitting up out of the bed more often and in the chair. Patient is significantly weak and will have PT/T therapy evaluate the patient. Patient has been mostly lying in the bed and sleeping throughout most of the day. Overall prognosis is guarded Objective - Vital Signs Vital signs: Vital Signs Temp 97.8 F 09/24/24 12:41 Pulse 70 09/24/24 12:41 Resp 18 09/24/24 12:41 BP 163/105 09/24/24 12:41 Pulse Ox 97 09/24/24 12:41 FiO2 Intake & Output 09/23/24 09/24/24 09/24/24 18:59 06:59 18:59 Output Total 40 500 Balance -40 -500 Weight 62.5 kg 51 kg Output: Gastric Drainage 20 Drainage 20 Abdomen 20 Urine 300 Emesis 200 Other: # Voids 2 - Labs CBC & Chem 7: 09/23/24 07:15 09/24/24 03:17 Labs: Abnormal Lab Results - Last 24 Hours (Table) 09/23/24 09/23/24 09/24/24 Range/Units 17:02 19:48 00:23 Sodium (137-145) mmol/L Chloride (98-107) mmol/L BUN (9-20) mg/dL Glucose (74-99) mg/dL POC Glucose (mg/dL) 215 H 157 H 174 H (70-110) mg/dL Magnesium (1.6-2.3) mg/dL 09/24/24 09/24/24 09/24/24 Range/Units 03:17 06:22 12:08 Sodium 150 H (137-145) mmol/L Chloride 117 H (98-107) mmol/L BUN 39 H (9-20) mg/dL Glucose 172 H (74-99) mg/dL POC Glucose (mg/dL) 185 H 179 H (70-110) mg/dL Magnesium 2.5 H (1.6-2.3) mg/dL
[2024-09-25 06:16] LABS: Glucose,Whole Blood 167 mg/dL (70-110)
[2024-09-25 10:00] LABS: Glucose,Whole Blood 152 mg/dL (70-110)
[2024-09-25] MEDS: IV FLUID CONTINUATION 1,000 ML IV ONE ×2 (10:38→15:25)
--- NOTE | 2024-09-25 10:42 | P.PN ---
Subjective Progress Note Date: 09/25/24 SURGICAL PROGRESS NOTE CHIEF COMPLAINT: Recurrent nausea and vomiting HISTORY OF PRESENT ILLNESS: Patient sleeping comfortably in bed. No new complaints. PEG tube to drainage. Patient scheduled for surgery today. Afebrile. Patient apparently having labs drawn in the OR. They had difficulty getting labs this morning and then patient refused the second attempt for labs to be drawn. PHYSICAL EXAM: VITAL SIGNS: Reviewed. GENERAL: Well-developed in no acute distress. ABDOMEN: Soft. Nondistended. Nontender. PEG tube site clean dry and intact. NEUROLOGIC: Alert and oriented. Cranial nerves II through XII grossly intact. ASSESSMENT: 1. SMA syndrome 2. Upper GI bleed with bright red blood and coffee-ground emesis. now resolved 3. Intractable nausea and vomiting 4. History of esophageal dysmotility disorder 5. Hiatal hernia 6. Esophagitis 7. Severe protein calorie malnutrition PLAN: -Patient scheduled for gastrojejunostomy today with Dr. Pavon -Keep patient n.p.o. Physician Community [facility] Counselor note has been reviewed by physician. Signing provider agrees with the documented findings, assessment, and plan of care. Objective - Vital Signs Vital signs: Vital Signs Temp 98 F 09/25/24 06:59 Pulse 83 09/25/24 07:40 Resp 19 09/25/24 07:40 BP 129/81 09/25/24 06:59 Pulse Ox 99 09/25/24 06:59 FiO2 Intake & Output 09/24/24 09/25/24 09/25/24 18:59 06:59 18:59 Intake Total 1740 Output Total 1075 1050 2 Balance 665 -1050 -2 Weight 59.5 kg Intake: Intake, IV Titration 1740 Amount Calcium Gluconate 1 gm 840 Potassium Acetate 40 meq In Amino Acids 5 %/ Dextrose 20 % 1,000 ml @ 70 mls/hr IV .BY DURATION GIRISH Rx#:[id number] Dextrose 5% in Water 1, 800 000 ml @ 100 mls/hr IV . Q10H GIRISH Rx#:[id number] Piperacillin-Tazobactam 3 100 .375 gm In Sodium Chloride 0.9% 100 ml @ 25 mls/hr IVPB Q8H GIRISH Rx#: [id number] Oral 0 Output: Drainage 100 Abdomen 100 Urine 875 950 2 Emesis 200 Other: Voiding Method Urinal Urinal # Voids 8 - Labs CBC & Chem 7: 09/23/24 07:15 09/24/24 03:17 Labs: Abnormal Lab Results - Last 24 Hours (Table) 09/24/24 09/24/24 09/24/24 Range/Units 12:08 16:56 20:05 POC Glucose (mg/dL) 179 H 210 H 176 H (70-110) mg/dL 09/25/24 09/25/24 Range/Units 00:19 06:15 POC Glucose (mg/dL) 152 H 167 H (70-110) mg/dL
[2024-09-25 10:53] LABS: Basophils # (A) 0.03 10*3/uL (0.00-0.10); Basophils % (A) 0.3 %; Eosinophils # (A) 0.07 10*3/uL (0.04-0.35); Eosinophils % (A) 0.7 %; HCT 26.6 % (39.6-50.0); HGB 8.6 g/dL (13.0-17.0); Lymphocytes # (A) 0.77 10*3/uL (0.90-5.00); Lymphocytes % (A) 7.6 %; MCH 30.8 pg (27.0-32.0); MCHC 32.3 g/dL (32.0-37.0); MCV 95.3 fL (80.0-97.0); Mean Platelet Volume 12.2 fL (9.5-12.2); Monocytes # (A) 0.51 10*3/uL (0.20-1.00); Neutrophils # (A) 8.56 10*3/uL (1.80-7.70); Neutrophils % (A) 84.5 %; Platelet Count 299 10*3/uL (140-440); RBC 2.79 10*6/uL (4.40-5.60); RDW 20.3 % (11.5-14.5); WBC 10.13 10*3/uL (4.50-10.00)
[2024-09-25 11:18] LABS: African American GFR (CKD) >90 (>60 ml/min/1.73 sqM); Anion Gap 9 mmol/L; Blood Urea Nitrogen 34 mg/dL (9-20); Calcium 8.6 mg/dL (8.4-10.2); Carbon Dioxide 31 mmol/L (22-30); Chloride 109 mmol/L (98-107); Glucose 104 mg/dL (74-99); Magnesium 2.1 mg/dL (1.6-2.3); Non-African American GFR(CKD) 90 (>60 ml/min/1.73 sqM); Phosphorus 2.6 mg/dL (2.5-4.5); Sodium 149 mmol/L (137-145)
[2024-09-25 14:43] LABS: Glucose,Whole Blood 81 mg/dL (70-110)
[2024-09-25] MEDS ORDERED: LABETALOL 5 MG/ML VIAL MDV ONE (14:44)
[2024-09-25] MEDS ORDERED: NEOSTIGMINE 1 MG/ML 10 ML VIAL ONE (14:44)
[2024-09-25] MEDS ORDERED: KETAMINE HCL IN 0.9 % NACL 50 MG/5 ML SYRINGE ONE (14:44)
[2024-09-25] MEDS ORDERED: SUCCINYLCHOLINE CHLORIDE 200 MG/10 ML VIAL IV ONE (14:44)
[2024-09-25] MEDS ORDERED: LIDOCAINE 1% INJ 10MG/ML (20 ML MDV) ONE (14:44)
[2024-09-25] MEDS ORDERED: fentaNYL (PF) 50 MCG/ML 2 ML AMP ONE (14:44)
[2024-09-25] MEDS ORDERED: MIDAZOLAM 2 MG/2 ML VIAL ONE (14:44)
[2024-09-25] MEDS ORDERED: PHENYLEPHRINE 10 MG/ML VIAL ONE (14:44)
[2024-09-25] MEDS: IV FLUID CONTINUATION 50 ML with ceFAZolin 2,000 MG IV ONE (14:44)
[2024-09-25] MEDS ORDERED: ROCURONIUM 10 MG/ML (5 ML VIAL) IV ONE (14:44)
[2024-09-25] MEDS ORDERED: GLYCOPYRROLATE 0.2 MG/ML 2 ML VIAL ONE (14:44)
[2024-09-25] MEDS ORDERED: PROPOFOL 10 MG/ML 20 ML VIAL IV ONE (14:44)
--- NOTE | 2024-09-25 16:08 | P.OP ---
Date of Procedure: 09/25/24 Preoperative Diagnosis: SMA syndrome Postoperative Diagnosis: SMA syndrome Procedure(s) Performed: Rickie-en-Y gastrojejunostomy Anesthesia: CHANCE Surgeon: Rickie Pavon Estimated Blood Loss (ml): 25 Pathology: none sent Condition: stable Disposition: PACU Description of Procedure: The patient was placed on the operative table in the supine position. He received general anesthesia. His abdomen was prepped and draped in usual sterile fashion. An u upper midline skin incision was made was made just below his previous PEG site. Electrocautery the abdomen wall was divided. And then using a pair of Torin clamps the fascia was divided. The stomach was visualized. And then the small bowel was visualized. The small bowel was not dilated. At this point a suitable spot for the gastrojejunostomy is choosing on the small bowel. The small bowel was transected with the CARLITOS stapler. A window in the mesentery was made. The limb of small bowel was then brought up to the anterior wall of the stomach. Using a CARLITOS stapler a gastrojejunostomy was performed. And then the enterotomy was closed using 3-0 Prolene and 3-0 GI silk suture. A 3 oh just silk was used as a crotch stitch. Next the bilious lumen of the Rickie-en-Y anastomosis was created using by performing a jejunal jejunostomy. This performed with the CARLITOS stapler. And then the enterotomy was closed using 3-0 Vicryl and interrupted 3-0 silk suture. The anastomoses were palpated. There is no evidence obstruction. The abdomen irrigated there is no bleeding seen. There was a suture which had popped off of the needle shuttle driver when being passed to the space technologist. The suture needle could not be found. An x-ray of the abdomen was performed. There was no evidence of any foreign body in the abdomen. Sponge and instrument count w reported as correct with the x-ray. Patient was sent to recovery room in stable condition.
--- NOTE | 2024-09-25 16:13 | XR ---
EXAMINATION TYPE: XR abdomen 1V DATE OF EXAM: 09/25/2024 COMPARISON: Abdominal radiograph 09/23/2024, CT abdomen and pelvis 09/23/2024. HISTORY: Lost needle in OR. TECHNIQUE: Single supine radiograph of the abdomen is obtained FINDINGS: Small bowel demonstrates no evidence for dilatation or air fluid levels. Residual enteric contrast is distributed in the colon. No convincing evidence for pneumoperitoneum. Post surgical changes with midline abdominal francesco. Cholecystectomy clip in the right upper quadran t. No unexpected radiopaque foreign body identified. Residual enteric contrast is distributed in the colon. The osseous structures are intact. Postsurgical changes of the lumbar spine. PEG tube identified. IMPRESSION: Post surgical changes without any unexpected radiopaque foreign body identified. [facility], , 09/25/2024 4:11 PM
[2024-09-25 16:52] LABS: Glucose,Whole Blood 102 mg/dL (70-110)
[2024-09-25] MEDS: POTASSIUM CHLORIDE 10 MEQ in WATER FOR INJECTION 1 100ML.BAG IVPB SCH (18:12)
--- NOTE | 2024-09-25 19:36 | P.PN ---
Subjective This is a pleasant 68 years old male who was recently discharged from this facility about 4 days ago for nausea vomiting and malnutrition status post PEG tube placement by surgery team. Once he been discharged he started having recurrent nausea vomiting again, he vomited 6 times since yesterday with no blood. Associated with epigastric pain and tenderness His troponin was elevated but EKG showing SVT. He has been evaluated by tap dancer as well during last admission for elevated troponin. Currently denies chest pain or dyspnea. No specific urinary symptoms. No headache dizziness weakness or numbness He is pain mainly in the epigastric area about 9/10 felt like squeezing nonradiating with no precipitating or relieving factors. He states that the pain is similar to last time. He has no bowel movement. He is using the PEG tube at home. He got Zofran 4 mg and is requesting more medicine He is hemodynamically stable and afebrile He has unremarkable CBC, BMP, LFT. WBC is mildly elevated at 10.4 at 11. Lactic acid 4.6 came back to normal at 1.7. Troponin is elevated 0.065. KUB showing nonspecific gas bowel pattern. EKG showed SVT with a rate of [address] depression in V3-V5 Patient lying in bed with no dyspnea or chest pain He is vomiting of blood today. He still has nausea vomiting. He was on Zofran 8 mg we will going to add Reglan IV 5 and then 10 mg. hemoglobin stable at 12.4 with slight improvement. Vital stable. He is not on any blood thinners or aspirin. His on Protonix IV twice daily added today Also we added D5 normal saline Discussed the case with surgery team. CT of the abdomen pelvis with IV contrast is requested. Currently patient denies any abdominal pain or epigastric tenderness. 4/10 No vomiting today, looks tired No abdominal pain or tenderness PEG tube is in place and feeding tube on hold He still getting IV fluids and Zosyn Plan for EGD today with surgery team given his hematemesis yesterday. Hemoglobin was stable yesterday at 11.3 Monitor hemoglobin Continue with Protonix He is getting Reglan [id number] which prevent him from vomiting 09/25 i came to see the pt twice and he was no in his room Objective - Vital Signs Vital signs: Vital Signs Temp 98 F 09/25/24 16:27 Pulse 113 H 09/25/24 18:15 Resp 16 09/25/24 17:12 BP 113/80 09/25/24 18:15 Pulse Ox 92 L 09/25/24 18:15 FiO2 Intake & Output 09/25/24 09/25/24 09/26/24 06:59 18:59 06:59 Intake Total 1400 Output Total 1050 422 Balance -1050 978 Weight 59.5 kg Intake: IV 1400 Output: Drainage 100 Abdomen 100 Urine 950 402 Estimated Blood Loss 20 Other: Voiding Method Urinal Urinal # Voids 8 - Exam -GENERAL: The patient is alert and oriented x3, not in any acute distress. Well developed, well nourished. Thin built HEENT: Pupils are round and equally reacting to light. EOMI. No scleral icterus. No conjunctival pallor. Normocephalic, atraumatic. No pharyngeal erythema. No thyromegaly. CARDIOVASCULAR: S1 and S2 present. No murmurs, rubs, or gallops. PULMONARY: Chest is clear to auscultation, no wheezing , no crackles. -ABDOMEN: Soft, nontender, nondistended, normoactive bowel sounds. No palpable organomegaly. PEG tube is in place with no Abdominal tenderness or guarding MUSCULOSKELETAL: No joint swelling or deformity. EXTREMITIES: No cyanosis, clubbing, or pedal edema. NEUROLOGICAL: Gross neurological examination did not reveal any focal deficits. SKIN: No rashes. no petechiae. - Labs CBC & Chem 7: 09/25/24 09:54 09/25/24 09:54 Labs: Abnormal Lab Results - Last 24 Hours (Table) 09/24/24 09/25/24 09/25/24 Range/Units 20:05 00:19 06:15 WBC (4.50-10.00) 10*3/uL RBC (4.40-5.60) 10*6/uL Hgb (13.0-17.0) g/dL Hct (39.6-50.0) % RDW (11.5-14.5) % Immature Gran # (0.00-0.04) 10*3/uL Neutrophils # (1.80-7.70) 10*3/uL Lymphocytes # (0.90-5.00) 10*3/uL Sodium (137-145) mmol/L Potassium (3.5-5.1) mmol/L Chloride (98-107) mmol/L Carbon Dioxide (22-30) mmol/L BUN (9-20) mg/dL Glucose (74-99) mg/dL POC Glucose (mg/dL) 176 H 152 H 167 H (70-110) mg/dL 09/25/24 09/25/24 Range/Units 09:54 09:54 WBC 10.13 H (4.50-10.00) 10*3/uL RBC 2.79 L (4.40-5.60) 10*6/uL Hgb 8.6 L (13.0-17.0) g/dL Hct 26.6 L (39.6-50.0) % RDW 20.3 H (11.5-14.5) % Immature Gran # 0.19 H (0.00-0.04) 10*3/uL Neutrophils # 8.56 H (1.80-7.70) 10*3/uL Lymphocytes # 0.77 L (0.90-5.00) 10*3/uL Sodium 149 H (137-145) mmol/L Potassium 3.0 L (3.5-5.1) mmol/L Chloride 109 H (98-107) mmol/L Carbon Dioxide 31 H (22-30) mmol/L BUN 34 H (9-20) mg/dL Glucose 104 H (74-99) mg/dL POC Glucose (mg/dL) (70-110) mg/dL Assessment and Plan Assessment: Hematemesis Recurrent nausea vomiting, intractable requiring PEG tube placement during last admission Epigastric pain and tenderness could be secondary to gastritis Elevated troponin could be secondary to SVT related dehydration, evaluated by cardiology during last admission Severe calorie protein malnutrition Hypertension Hyperlipidemia Anxiety/depression, not on active issue - Distal esophagitis Hiatal hernia seen on recent EKG Plan: Add IV Protonix and IV fluids and monitor hemoglobin. Avoid heparin or NSAIDs Continues intake via PEG tube, currently on hold Surgical team consult with plan for EGD on 09/12 Nutrition consult Continue with Zofran and Reglan which she was getting [id number] Cardiology team consult Resume home medication Labs and medication were reviewed.. Continue same treatment. Continue with sym ptomatic treatment. Resume home medication. Monitor labs and vitals. DVT and GI prophylaxis. Further recommendations as per clinical course of the patient DVT prophylaxis: no Subcutaneous heparin. Continue with mechanical GI Prophylaxis: Protonix Prognosis is guarded
[2024-09-25 20:52] LABS: Glucose,Whole Blood 206 mg/dL (70-110)
[2024-09-25] MEDS: SODIUM CHLORIDE 0.9% 1,000 ML IV ONE (23:10)
[2024-09-26] MEDS: SODIUM CHLORIDE 0.9% 500 ML 500 ML IV ONE ×2 (00:18→16:44)
[2024-09-26 01:07] LABS: Glucose,Whole Blood 127 mg/dL (70-110)
[2024-09-26] MEDS: INSULIN LISPRO (HumaLOG) 100 UNIT/ML 10 mL VL SQ SCH (01:15)
[2024-09-26 04:00] LABS: African American GFR (CKD) >90 (>60 ml/min/1.73 sqM); Anion Gap 11 mmol/L; Blood Urea Nitrogen 34 mg/dL (9-20); Calcium 8.3 mg/dL (8.4-10.2); Carbon Dioxide 23 mmol/L (22-30); Chloride 112 mmol/L (98-107); Glucose 152 mg/dL (74-99); Magnesium 1.7 mg/dL (1.6-2.3); Non-African American GFR(CKD) 90 (>60 ml/min/1.73 sqM); Phosphorus 2.6 mg/dL (2.5-4.5); Potassium 4.2 mmol/L (3.5-5.1); Sodium 146 mmol/L (137-145)
[2024-09-26 05:15] LABS: Glucose,Whole Blood 142 mg/dL (70-110)
[2024-09-26] MEDS: METOPROLOL TARTRATE 5 MG/5 ML VIAL IVP STA (05:23)
[2024-09-26 05:56] LABS: Basophils # (A) 0.03 10*3/uL (0.00-0.10); Basophils % (A) 0.2 %; Eosinophils # (A) 0.01 10*3/uL (0.04-0.35); Eosinophils % (A) 0.1 %; HCT 26.1 % (39.6-50.0); HGB 8.4 g/dL (13.0-17.0); Lymphocytes % (A) 5.6 %; MCH 30.8 pg (27.0-32.0); MCHC 32.2 g/dL (32.0-37.0); MCV 95.6 fL (80.0-97.0); Mean Platelet Volume 12.2 fL (9.5-12.2); Monocytes # (A) 0.53 10*3/uL (0.20-1.00); Monocytes % (A) 3.3 %; Neutrophils # (A) 14.23 10*3/uL (1.80-7.70); Neutrophils % (A) 88.3 %; Platelet Count 358 10*3/uL (140-440); RBC 2.73 10*6/uL (4.40-5.60); RDW 20.3 % (11.5-14.5); WBC 16.11 10*3/uL (4.50-10.00)
--- NOTE | 2024-09-26 08:58 | P.PN ---
Subjective This is a pleasant 68 years old male who was recently discharged from this facility about 4 days ago for nausea vomiting and malnutrition status post PEG tube placement by surgery team. Once he been discharged he started having recurrent nausea vomiting again, he vomited 6 times since yesterday with no blood. Associated with epigastric pain and tenderness His troponin was elevated but EKG showing SVT. He has been evaluated by mother's helper as well during last admission for elevated troponin. Currently denies chest pain or dyspnea. No specific urinary symptoms. No headache dizziness weakness or numbness He is pain mainly in the epigastric area about 9/10 felt like squeezing nonradiating with no precipitating or relieving factors. He states that the pain is similar to last time. He has no bowel movement. He is using the PEG tube at home. He got Zofran 4 mg and is requesting more medicine He is hemodynamically stable and afebrile He has unremarkable CBC, BMP, LFT. WBC is mildly elevated at 10.4 at 11. Lactic acid 4.6 came back to normal at 1.7. Troponin is elevated 0.065. KUB showing nonspecific gas bowel pattern. EKG showed SVT with a rate of [address] depression in V3-V5 Patient lying in bed with no dyspnea or chest pain He is vomiting of blood today. He still has nausea vomiting. He was on Zofran 8 mg we will going to add Reglan IV 5 and then 10 mg. hemoglobin stable at 12.4 with slight improvement. Vital stable. He is not on any blood thinners or aspirin. His on Protonix IV twice daily added today Also we added D5 normal saline Discussed the case with surgery team. CT of the abdomen pelvis with IV contrast is requested. Currently patient denies any abdominal pain or epigastric tenderness. 4/10 No vomiting today, looks tired No abdominal pain or tenderness PEG tube is in place and feeding tube on hold He still getting IV fluids and Zosyn Plan for EGD today with surgery team given his hematemesis yesterday. Hemoglobin was stable yesterday at 11.3 Monitor hemoglobin Continue with Protonix He is getting Reglan [id number] which prevent him from vomiting 09/25 i came to see the pt twice and he was no in his room 09/26 Patient seen and examined at bedside. He is awake and alert ,he is status post Roex-en-Y gastrojejunostomy. Today postop day #1 He still complaining from epigastric pain and mild tenderness with PEG tube placement to gravity. Patient is not getting tube feeding Patient is getting D5W at 100 mL/h, sodium improved 150 down to 146 today Also patient is getting Zosyn WBC 16.1, hemoglobin 8.4 and sodium 146 Is getting Reglan 5 mg as needed will added 10 mg Objective - Vital Signs Vital signs: Vital Signs Temp 98.2 F 09/26/24 04:20 Pulse 100 09/26/24 05:43 Resp 18 09/26/24 04:20 BP 118/83 09/26/24 05:43 Pulse Ox 98 09/26/24 05:43 FiO2 Intake & Output 09/25/24 09/26/24 09/26/24 18:59 06:59 18:59 Intake Total 1400 Output Total 422 1200 Balance 978 -1200 Weight 54 kg Intake: IV 1400 Output: Drainage 200 Abdomen 200 Urine 402 1000 Estimated Blood Loss 20 Other: Voiding Method Urinal Indwelling Catheter - Exam -GENERAL: The patient is alert and oriented x3, not in any acute distress. Well developed, well nourished. Thin built HEENT: Pupils are round and equally reacting to light. EOMI. No scleral icterus. No conjunctival pallor. Normocephalic, atraumatic. No pharyngeal erythema. No thyromegaly. CARDIOVASCULAR: S1 and S2 present. No murmurs, rubs, or gallops. PULMONARY: Chest is clear to auscultation, no wheezing , no crackles. -ABDOMEN: Soft, nontender, nondistended, normoactive bowel sounds. No palpable organomegaly. PEG tube is in place with no Abdominal tenderness or guarding MUSCULOSKELETAL: No joint swelling or deformity. EXTREMITIES: No cyanosis, clubbing, or pedal edema. NEUROLOGICAL: Gross neurological examination did not reveal any focal deficits. SKIN: No rashes. no petechiae. - Labs CBC & Chem 7: 09/26/24 05:30 09/26/24 02:56 Labs: Abnormal Lab Results - Last 24 Hours (Table) 09/25/24 09/25/24 09/25/24 Range/Units 00:19 09:54 09:54 WBC 10.13 H (4.50-10.00) 10*3/uL RBC 2.79 L (4.40-5.60) 10*6/uL Hgb 8.6 L (13.0-17.0) g/dL Hct 26.6 L (39.6-50.0) % RDW 20.3 H (11.5-14.5) % Immature Gran # 0.19 H (0.00-0.04) 10*3/uL Neutrophils # 8.56 H (1.80-7.70) 10*3/uL Lymphocytes # 0.77 L (0.90-5.00) 10*3/uL Eosinophils # (0.04-0.35) 10*3/uL Sodium 149 H (137-145) mmol/L Potassium 3.0 L (3.5-5.1) mmol/L Chloride 109 H (98-107) mmol/L Carbon Dioxide 31 H (22-30) mmol/L BUN 34 H (9-20) mg/dL Glucose 104 H (74-99) mg/dL POC Glucose (mg/dL) 152 H (70-110) mg/dL Calcium (8.4-10.2) mg/dL 09/25/24 09/26/24 09/26/24 Range/Units 20:51 01:04 02:56 WBC (4.50-10.00) 10*3/uL RBC (4.40-5.60) 10*6/uL Hgb (13.0-17.0) g/dL Hct (39.6-50.0) % RDW (11.5-14.5) % Immature Gran # (0.00-0.04) 10*3/uL Neutrophils # (1.80-7.70) 10*3/uL Lymphocytes # (0.90-5.00) 10*3/uL Eosinophils # (0.04-0.35) 10*3/uL Sodium 146 H (137-145) mmol/L Potassium (3.5-5.1) mmol/L Chloride 112 H (98-107) mmol/L Carbon Dioxide (22-30) mmol/L BUN 34 H (9-20) mg/dL Glucose 152 H (74-99) mg/dL POC Glucose (mg/dL) 206 H 127 H (70-110) mg/dL Calcium 8.3 L (8.4-10.2) mg/dL 09/26/24 09/26/24 Range/Units 05:14 05:30 WBC 16.11 H (4.50-10.00) 10*3/uL RBC 2.73 L (4.40-5.60) 10*6/uL Hgb 8.4 L (13.0-17.0) g/dL Hct 26.1 L (39.6-50.0) % RDW 20.3 H (11.5-14.5) % Immature Gran # 0.41 H (0.00-0.04) 10*3/uL Neutrophils # 14.23 H (1.80-7.70) 10*3/uL Lymphocytes # (0.90-5.00) 10*3/uL Eosinophils # 0.01 L (0.04-0.35) 10*3/uL Sodium (137-145) mmol/L Potassium (3.5-5.1) mmol/L Chloride (98-107) mmol/L Carbon Dioxide (22-30) mmol/L BUN (9-20) mg/dL Glucose (74-99) mg/dL POC Glucose (mg/dL) 142 H (70-110) mg/dL Calcium (8.4-10.2) mg/dL Assessment and Plan Assessment: Hematemesis Recurrent nausea vomiting, intractable requiring PEG tube placement during last admission Epigastric pain and tenderness could be secondary to gastritis, status post Roex-en-Y gastrojejunostomy Severe calorie protein malnutrition Hypernatremia Elevated troponin could be secondary to SVT related dehydration, evaluated by cardiology during last admission Hypertension Hyperlipidemia Anxiety/depression, not on active issue - Distal esophagitis Hiatal hernia seen on recent EKG Plan: Continue with Reglan as needed 10 mg Continue with Protonix On D5W with close monitoring of sodium Continues intake via PEG tube, currently on hold in place to gravity Surgical team consult with patient status post EGD on 09/12. Nutrition consult Resume home medication Labs and medication were reviewed.. Continue same treatment. Continue with symptomatic treatment. Resume home medication. Monitor labs and vitals. DVT and GI prophylaxis. Further recommendations as per clinical course of the keya ent DVT prophylaxis: no Subcutaneous heparin. Continue with mechanical GI Prophylaxis: Protonix Prognosis is guarded
[2024-09-26 11:22] LABS: Glucose,Whole Blood 161 mg/dL (70-110)
[2024-09-26] MEDS: ACETAMINOPHEN IV (For NPO) 1,000 MG in EMPTY BAG 1 BAG IVPB SCH (11:30)
[2024-09-26] MEDS: DEXTROSE 5%-0.45% NACL 1,000 ML IV SCH (11:30)
[2024-09-26] MEDS: METOCLOPRAMIDE 5 MG/ML 2 ML VIAL IVP STA (11:31)
--- NOTE | 2024-09-26 11:41 | P.PN ---
Subjective Progress Note Date: 09/26/24 SURGICAL PROGRESS NOTE CHIEF COMPLAINT: Recurrent nausea and vomiting HISTORY OF PRESENT ILLNESS: Postop day #1 status post Rickie-en-Y gastrojejunostomy. Patient is sitting up in bed. He does complain of some abdominal pain. He is still spitting up bilious fluid. PEG tube is to drainage fluid output is bile. He denies any flatus. He has been tachycardic and is currently on the cardiac floor. Afebrile. WBC is up from 10-16 Hgb 8.4 PHYSICAL EXAM: VITAL SIGNS: Reviewed. GENERAL: Well-developed in no acute distress. ABDOMEN: Soft. Nondistended. Midline incisional dressing clean dry and intact PEG tube site clean dry and intact. PEG tube to drainage NEUROLOGIC: Alert and oriented. Cranial nerves II through XII grossly intact. ASSESSMENT: 1. SMA syndrome 2. Upper GI bleed with bright red blood and coffee-ground emesis. now resolved 3. Intractable nausea and vomiting 4. History of esophageal dysmotility disorder 5. Hiatal hernia 6. Esophagitis 7. Severe protein calorie malnutrition PLAN: -Keep patient n.p.o. -Continue TPN for nutrition support -IV Tylenol scheduled ordered for pain -Cardiology on consult for tachycardia -Continue antibiotics -Incentive spirometer ordered Physician [employer] Crewmember note has been reviewed by physician. Signing provider agrees with the documented findings, assessment, and plan of care. Objective - Vital Signs Vital signs: Vital Signs Temp 98.2 F 09/26/24 04:20 Pulse 116 H 09/26/24 08:20 Resp 18 09/26/24 08:20 BP 146/97 09/26/24 08:20 Pulse Ox 97 09/26/24 08:20 FiO2 Intake & Output 09/25/24 09/26/24 09/26/24 18:59 06:59 18:59 Intake Total 2441 Output Total 422 1200 Balance 2019 -1199 Weight 54 kg Intake: IV 1400 Intake, IV Titration 1041 Amount Mvi, Adult No.4 with Vit 1041 K 10 ml Trace (Conc-1Ml/ Dose) 1 ml Calcium Gluconate 1 gm Potassium Acetate 40 meq In Amino Acids 5 %/Dextrose 20 % 1 ,000 ml @ 70 mls/hr IV . BY DURATION GIRISH Rx#: [id number] Output: Drainage 200 Abdomen 200 Urine 402 1000 Estimated Blood Loss 20 Other: Voiding Method Urinal Indwelling Catheter Indwelling Catheter # Voids 575 - Labs CBC & Chem 7: 09/26/24 05:30 09/26/24 02:56 Labs: Abnormal Lab Results - Last 24 Hours (Table) 09/25/24 09/26/24 09/26/24 Range/Units 20:51 01:04 02:56 WBC (4.50-10.00) 10*3/uL RBC (4.40-5.60) 10*6/uL Hgb (13.0-17.0) g/dL Hct (39.6-50.0) % RDW (11.5-14.5) % Immature Gran # (0.00-0.04) 10*3/uL Neutrophils # (1.80-7.70) 10*3/uL Eosinophils # (0.04-0.35) 10*3/uL Sodium 146 H (137-145) mmol/L Chloride 112 H (98-107) mmol/L BUN 34 H (9-20) mg/dL Glucose 152 H (74-99) mg/dL POC Glucose (mg/dL) 206 H 127 H (70-110) mg/dL Calcium 8.3 L (8.4-10.2) mg/dL 09/26/24 09/26/24 09/26/24 Range/Units 05:14 05:30 11:21 WBC 16.11 H (4.50-10.00) 10*3/uL RBC 2.73 L (4.40-5.60) 10*6/uL Hgb 8.4 L (13.0-17.0) g/dL Hct 26.1 L (39.6-50.0) % RDW 20.3 H (11.5-14.5) % Immature Gran # 0.41 H (0.00-0.04) 10*3/uL Neutrophils # 14.23 H (1.80-7.70) 10*3/uL Eosinophils # 0.01 L (0.04-0.35) 10*3/uL Sodium (137-145) mmol/L Chloride (98-107) mmol/L BUN (9-20) mg/dL Glucose (74-99) mg/dL POC Glucose (mg/dL) 142 H 161 H (70-110) mg/dL Calcium (8.4-10.2) mg/dL
--- NOTE | 2024-09-26 12:18 | P.NPCON ---
History of Present Illness - Reason for Consult hypernatremia - History of Present Illness Reason for consultation: Hypernatremia History of present illness: Patient is a 68-year-old male seen in renal consultation for hypernatremia. Patient sodium level was normal on admission which was September 09, 2024 and started rising September 22, 2024 and was up to 152 on September 23, 2024. Since then patient has been receiving D5W and sodium level this morning was down to 146. Patient was noted to be tachycardic and fluids were subsequently changed to D5 half- normal saline at 100 cc an hour this morning by cardiology. Patient has not noted to be hypotensive. He denies chest pain or shortness of breath. Patient is currently NPO. He is receiving TPN. Patient has SMA syndrome. He has been having nausea and vomiting for quite some time now and has had multiple hospital admissions for the same. He initially had a PEG tube placed and was changed to J-tube September 25, 2024. He denies history of diabetes or coronary artery disease. Currently has a Perez catheter. Vital signs are stable. General: No acute distress. HEENT: Head exam is unremarkable. LUNGS: No audible rhonchi or wheezes. HEART: Rate and Rhythm are regular. ABDOMEN: Nontender. EXTREMITITES: No edema. Past Medical History Past Medical History: Asthma, Coronary Artery Disease (CAD), Chest Pain / A ngina, CVA/TIA, GERD/Reflux, Hyperlipidemia, Hypertension, Pneumonia, Rheumatoid Arthritis (RA) Additional Past Medical History / Comment(s): MIGRAINES, HEART MURMUR, hx HIATAL HERNIA, ANEMIA, one dr told him he had a stroke at one time-no effects, varicose veins, history of incarcerated per esophageal hernia, status post robotic-assisted paraesophageal hernia repair and Frederick fundoplication on 04/12/2022. History of Any Multi-Drug Resistant Organisms: None Reported Past Surgical History: Cholecystectomy, Heart Catheterization, Hernia Repair, Orthopedic Surgery Additional Past Surgical History / Comment(s): Lt achilles tendon,RT SHOULDER surgery, RT ACHILLES TENDON reattached, HEMORRHOIDECTOMY, 13 FATTY TUMORS removed. left hand index finger surgery after injury, EGD WITH DILATION, parae sophageal hernia repair with Frederick fundoplication on 04/12/2022. New feeding tube September 2024. PEG tube Past Anesthesia/Blood Transfusion Reactions: No Reported Reaction Additional Past Anesthesia/Blood Transfusion Reaction / Comment(s): no hx blood transfusion Past Psychological History: Anxiety, Depression Smoking Status: Former smoker Past Alcohol Use History: None Reported Past Drug Use History: Marijuana - Past Family History Mother Family Medical History: Cancer Father Additional Family Medical History / Comment(s): thinks aneurysm Medications and Allergies Home Medications Medication Instructions Recorded Confirmed Type Albuterol Sulfate [Albuterol 2 puff PO RT-Q4H PRN 07/30/24 09/10/24 History Sulfate Hfa] Ferrous Sulfate [Iron (65 MG 325 mg PO DAILY 07/30/24 09/10/24 History Elemental)] Metoprolol Tartrate [Lopressor] 25 mg PO BID-W/MEALS 07/30/24 09/10/24 History Nitroglycerin Sl Tabs [Nitrostat] 0.4 mg SUBLINGUAL Q5M PRN 07/30/24 09/10/24 History Pantoprazole [Protonix] 40 mg PO DAILY 07/30/24 09/10/24 History Sertraline [Zoloft] 25 mg PO DAILY 07/30/24 09/10/24 History busPIRone HCL [Buspar] 7.5 mg PO BID-W/MEALS 07/30/24 09/10/24 History Ondansetron [Zofran] 4 mg PO Q8HR PRN #21 tab 08/12/24 09/10/24 Rx Acetaminophen Tab [Tylenol] 650 mg PO Q6H PRN 08/28/24 09/10/24 History Atorvastatin [Lipitor] 40 mg PO DAILY 08/28/24 09/10/24 History Folic Acid 1 mg PO DAILY 08/28/24 09/10/24 History Multivitamins, Thera [Multivitamin 1 tab PO DAILY 08/28/24 09/10/24 History (formulary)] Thiamine [Vitamin B-1] 100 mg PO DAILY 08/28/24 09/10/24 History Calcium Carbonate [Tums] 1,000 mg PO Q4HR PRN tab 09/06/24 09/10/24 Rx Allergies Allergy/AdvReac Type Severity Reaction Status Date / Time No Known Allergies Allergy Verified 09/10/24 09:02 Physical Exam Vitals: Vital Signs Temp Pulse Pulse Resp BP BP Pulse Ox 09/26/24 08:20 116 H 115 H 18 146/97 97 09/26/24 05:43 100 118/83 98 09/26/24 05:15 150 H 126/84 98 09/26/24 04:20 98.2 F 135 H 18 137/89 95 09/26/24 02:48 116 H 09/26/24 01:01 98.6 F 124 H 17 140/81 99 09/25/24 20:40 125 H 19 09/25/24 19:23 98.3 F 74 17 112/68 93 L 09/25/24 18:15 113 H 113/80 92 L 09/25/24 18:00 107 H 104/68 97 09/25/24 17:45 105 H 103/71 96 09/25/24 17:30 103 H 107/75 94 L 09/25/24 17:12 100 16 109/65 96 09/25/24 16:57 99 15 110/59 96 09/25/24 16:42 100 16 131/71 97 09/25/24 16:27 98 F 104 H 18 104/73 100 09/25/24 14:00 80 15 139/85 97 Intake and Output 09/25/24 09/26/24 09/26/24 22:59 06:59 14:59 Intake Total 400 Output Total 420 1200 Balance -20 -1200 Intake: IV 400 Output: Drainage 200 Abdomen 200 Urine 400 1000 Estimated Blood Loss 20 Other: Voiding Method Indwelling Catheter Indwelling Catheter # Voids 575 Weight 54 kg Results - Lab Results Most recent lab results Calcium 8.3 mg/dL (8.4-10.2) L 09/26/24 02:56 Phosphorus 2.6 mg/dL (2.5-4.5) 09/26/24 02:56 Magnesium 1.7 mg/dL (1.6-2.3) 09/26/24 02:56 09/26/24 05:30 09/26/24 02:56 Assessment and Plan Plan: Assessment: 1. Hypernatremia from lack of oral water intake. 2. SMA syndrome. Surgery following. 3. Status post J-tube placement September 25, 2024. 4. Hypokalemia from poor intake. Replaced. Better. Plan: Maintain D5 half-normal saline running at 100 cc an hour. Repeat labs in the morning. Replace electrolytes as needed. Thank you for the consultation. I will continue to follow the patient with you during his hospital stay.
[2024-09-26] MEDS: MAGNESIUM SULFATE-D5W PMX 1 GM in DEXTROSE/WATER 1 100ML.BAG IVPB ONE (14:01)
[2024-09-26] MEDS: LACTATED RINGERS 1,000 ML IV SCH (14:01)
--- NOTE | 2024-09-26 14:44 | P.CRDCN ---
History of Present Illness Consult date: 09/26/24 Requesting physician: Fer Mitchell Reason for Consult (text): HR sustaining 130's History of present illness: Patient is a 68 year old male with past medical history of hypertension, dyslipidemia, history of esophageal stricture with multiple previous dilatation,history of tube feeding, chronic nausea and vomiting, presented to the ED with intractable nausea and vomiting. On this admission patient was diagnosed with SMA syndrome and patient underwent Rickie-en-Y gastrojejunostomy on 09/25/2024. Patient initially had a PEG tube placed and was now changed to J- tube. Patient seen today in consultation for tachycardia with heart rate sustaining in the 120s. Patient had a prior cardiac catheterization done in 2019 that showed normal coronary angiogram, normal left ventricular end-diastolic pressure. Vitals T 98.2 F, AR 115 bpm, RR 18, BP 146/97, oxygen saturation 97% on room air EKG independently interpreted as sinus tachycardia, rate 104 bpm, right ventricular hypertrophy, QTc 365 ms Chest x-ray shows no acute cardiopulmonary disease/process, right PICC line in stable position Labs show WBC 16.11, hemoglobin 8.4, platelet count 358, sodium 146, potassium 4.2, chloride 112, BUN 34, creatinine 0.87, magnesium 1.7 Troponin I 0.013 Echocardiogram done on 08/30/2024 showed EF 60%, normal left ventricular size and function, mild mitral regurgitation Review of systems: Pertinent positives and negatives as discussed in HPI, a complete review of systems was performed and all other systems are negative. Physical examination: Vital signs reviewed GENERAL: This is a 68-year-old thin built male, ill appearing in no acute respiratory distress. HEENT: Head is atraumatic, normocephalic. Pupils equal, round. Sclerae is anicteric. NECK: Supple. No JVD. LUNGS: Clear to auscultation. No wheezes or rhonchi. HEART: Regular rate and rhythm. ABDOMEN: Soft No tenderness. PEG tube EXTREMITIES: No pedal edema. No calf tenderness. NEUROLOGICAL: Patient is awake and alert Assessment: Sinus tachycardia, multifactorial, likely physiological secondary to anemia and possible infection Dehydration Hypernatremia due to lack of oral intake Severe protein calorie malnutrition SMA syndrome Intractable nausea and vomiting Hyperlipidemia Hypertension Former smoker Plan: Avoid beta blockers Treat underlying cause of anemia, infection and water deficit Cardiology will sign off Dictation was produced using dragon dictation software. please excuse any grammatical, word or spelling errors. Abbey Rodriguez MD PGY-1 IM Past Medical History Past Medical History: Asthma, Coronary Artery Disease (CAD), Chest Pain / Angina, CVA/TIA, GERD/Reflux, Hyperlipidemia, Hypertension, Pneumonia, Rhe umatoid Arthritis (RA) Additional Past Medical History / Comment(s): MIGRAINES, HEART MURMUR, hx HIATAL HERNIA, ANEMIA, one dr told him he had a stroke at one time-no effects, varicose veins, history of incarcerated per esophageal hernia, status post robotic-assisted paraesophageal hernia repair and Frederick fundoplication on 04/12/2022. History of Any Multi-Drug Resistant Organisms: None Reported Past Surgical History: Cholecystectomy, Heart Catheterization, Hernia Repair, Orthopedic Surgery Additional Past Surgical History / Comment(s): Lt achilles tendon,RT SHOULDER surgery, RT ACHILLES TENDON reattached, HEMORRHOIDECTOMY, 13 FATTY TUMORS removed. left hand index finger surgery after injury, EGD WITH DILATION, paraesophageal hernia repair with Frederick fundoplication on 04/12/2022. New fee ding tube September 2024. PEG tube Past Anesthesia/Blood Transfusion Reactions: No Reported Reaction Additional Past Anesthesia/Blood Transfusion Reaction / Comment(s): no hx blood transfusion Past Psychological History: Anxiety, Depression Smoking Status: Former smoker Past Alcohol Use History: None Reported Past Drug Use History: Marijuana - Past Family History Mother Family Medical History: Cancer Father Additional Family Medical History / Comment(s): thinks aneurysm Medications and Allergies Home Medications Medication Instructions Recorded Confirmed Type Albuterol Sulfate [Albuterol 2 puff PO RT-Q4H PRN 07/30/24 09/10/24 History Sulfate Hfa] Ferrous Sulfate [Iron (65 MG 325 mg PO DAILY 07/30/24 09/10/24 History Elemental)] Metoprolol Tartrate [Lopressor] 25 mg PO BID-W/MEALS 07/30/24 09/10/24 History Nitroglycerin Sl Tabs [Nitrostat] 0.4 mg SUBLINGUAL Q5M PRN 07/30/24 09/10/24 History Pantoprazole [Protonix] 40 mg PO DAILY 07/30/24 09/10/24 History Sertraline [Zoloft] 25 mg PO DAILY 07/30/24 09/10/24 History busPIRone HCL [Buspar] 7.5 mg PO BID-W/MEALS 07/30/24 09/10/24 History Ondansetron [Zofran] 4 mg PO Q8HR PRN #21 tab 08/12/24 09/10/24 Rx Acetaminophen Tab [Tylenol] 650 mg PO Q6H PRN 08/28/24 09/10/24 History Atorvastatin [Lipitor] 40 mg PO DAILY 08/28/24 09/10/24 History Folic Acid 1 mg PO DAILY 08/28/24 09/10/24 History Multivitamins, Thera [Multivitamin 1 tab PO DAILY 08/28/24 09/10/24 History (formulary)] Thiamine [Vitamin B-1] 100 mg PO DAILY 08/28/24 09/10/24 History Calcium Carbonate [Tums] 1,000 mg PO Q4HR PRN tab 09/06/24 09/10/24 Rx Allergies Allergy/AdvReac Type Severity Reaction Status Date / Time No Known Allergies Allergy Verified 09/10/24 09:02 Physical Exam Vitals: Vital Signs Temp Pulse Pulse Resp BP BP Pulse Ox 09/26/24 08:20 116 H 115 H 18 146/97 97 09/26/24 05:43 100 118/83 98 09/26/24 05:15 150 H 126/84 98 09/26/24 04:20 98.2 F 135 H 18 137/89 95 09/26/24 02:48 116 H 09/26/24 01:01 98.6 F 124 H 17 140/81 99 09/25/24 20:40 125 H 19 09/25/24 19:23 98.3 F 74 17 112/68 93 L 09/25/24 18:15 113 H 113/80 92 L 09/25/24 18:00 107 H 104/68 97 09/25/24 17:45 105 H 103/71 96 09/25/24 17:30 103 H 107/75 94 L 09/25/24 17:12 100 16 109/65 96 09/25/24 16:57 99 15 110/59 96 09/25/24 16:42 100 16 131/71 97 09/25/24 16:27 98 F 104 H 18 104/73 100 09/25/24 14:00 80 15 139/85 97 Intake and Output 09/25/24 09/26/24 09/26/24 22:59 06:59 14:59 Intake Total 400 Output Total 420 1200 Balance -20 -1200 Intake: IV 400 Output: Drainage 200 Abdomen 200 Urine 400 1000 Estimated Blood Loss 20 Other: Voiding Method Indwelling Catheter Indwelling Catheter # Voids 575 Weight 54 kg Results 09/26/24 05:30 09/26/24 02:56 Cardiac Enzymes 09/26/24 Range/Units 00:24 Troponin I 0.013 (0.000-0.034) ng/mL CBC 09/26/24 Range/Units 05:30 WBC 16.11 H (4.50-10.00) 10*3/uL RBC 2.73 L (4.40-5.60) 10*6/uL Hgb 8.4 L (13.0-17.0) g/dL Hct 26.1 L (39.6-50.0) % Plt Count 358 (140-440) 10*3/uL Comprehensive Metabolic Panel 09/26/24 Range/Units 02:56 Sodium 146 H (137-145) mmol/L Potassium 4.2 (3.5-5.1) mmol/L Chloride 112 H (98-107) mmol/L Carbon Dioxide 23 (22-30) mmol/L BUN 34 H (9-20) mg/dL Creatinine 0.87 (0.66-1.25) mg/dL Glucose 152 H (74-99) mg/dL Calcium 8.3 L (8.4-10.2) mg/dL Current Medications Generic Name Dose Route Start Last Admin Trade Name Freq PRN Reason Stop Dose Admin Dextrose/Water 25 ml 09/13/24 12:33 Dextrose 50% Syringe 50 Ml IVP PER PROTOCOL PRN Hypoglycemia Protocol Dextrose/Water 50 ml 09/13/24 12:33 Dextrose 50% Syringe 50 Ml IVP PER PROTOCOL PRN Hypoglycemia Protocol Heparin Sodium (Porcine) 5,000 unit 09/23/24 09:00 09/26/24 08:41 Heparin Sodium,Porcine 5,000 Unit/Ml 1 Ml Vial SQ 5,000 unit Q12HR GIRISH Administration Hydromorphone HCl 1 mg 09/09/24 23:22 09/26/24 11:52 Hydromorphone 0.5 Mg/0.5 Ml Syringe IVP 1 mg Q3HR PRN Administration Severe Pain (Scale 7 to 10) Fat Emulsion Intravenous 250 250 mls @ 21 mls/hr 09/13/24 14:00 09/25/24 18:11 ml/ IV Solution IV 21 mls/hr Q72H GIRISH Administration Piperacillin Sod/Tazobactam 100 mls @ 25 mls/hr 09/16/24 16:00 09/26/24 08:41 Sod 3.375 gm/ Sodium Chloride IVPB 25 mls/hr Q8H GIRISH Administration Protocol Parenteral Vitamin Supplement 1,041 mls @ 70 mls/hr 09/24/24 17:00 09/26/24 09:55 10 ml/ Zinc/Copper/Manganese/ IV 70 mls/hr Selenium 1 ml/ Calcium .BY DURATION GIRISH Administration Gluconate 1 gm/ Potassium Acetate 40 meq/ Amino Acids/ Dextrose Calcium Gluconate 1 gm/ 1,030 mls @ 70 mls/hr 09/24/24 17:00 09/25/24 08:07 Potassium Acetate 40 meq/ IV 70 mls/hr Amino Acids/Dextrose .BY DURATION GIRISH Administration Acetaminophen 1,000 mg/ IV 100 mls @ 400 mls/hr 09/26/24 11:00 09/26/24 11:30 Solution IVPB 09/27/24 06:14 400 mls/hr Q6HR GIRISH Administration Dextrose/Sodium Chloride 1,000 mls @ 100 mls/hr 09/26/24 11:15 09/26/24 11:30 Dextrose 5%-1/2ns Iv Soln IV 100 mls/hr .Q10H GIRISH Administration Magnesium Sulfate/Dextrose 1 100 mls @ 100 mls/hr 09/26/24 12:15 gm/ IV Solution IVPB 09/26/24 13:14 ONCE ONE Insulin Human Lispro 0 unit 09/26/24 00:15 09/26/24 11:58 Insulin Lispro (Humalog) 100 Unit/Ml 10 Ml Vl SQ Not Given Q6HR [facility] Protocol Lidocaine HCl 0.1 ml 09/12/24 11:23 Lidocaine 1% (10mg/Ml) For Iv Start INTRADERMA PER PROTOCOL PRN IV Start Lorazepam 1 mg 09/11/24 12:26 09/24/24 13:45 Lorazepam 1 Mg/0.5 Ml Vial IV 1 mg Q6HR PRN Administration Anxiety Metoclopramide HCl 10 mg 09/26/24 08:52 Metoclopramide 5 Mg/Ml 2 Ml Vial IVP Q6HR PRN Nausea And Vomiting Miscellaneous Information 1 each 09/11/24 09:50 Potassium Replacement Protocol 1 Each Misc MISCELLANE DAILY PRN Per Protocol Protocol Naloxone HCl 0.2 mg 09/09/24 23:22 Naloxone 0.4 Mg/Ml 1 Ml Vial IV Q2M PRN Opioid Reversal Ondansetron HCl 8 mg 09/11/24 11:10 09/26/24 08:51 Ondansetron 4 Mg/2 Ml Vial IVP 8 mg Q6HR PRN Administration Nausea And Vomiting Pantoprazole Sodium 40 mg 09/11/24 09:00 09/26/24 08:41 Pantoprazole 40 Mg/10 Ml Vial IV 40 mg BID GIRISH Administration Intake and Output 09/25/24 09/26/24 09/26/24 22:59 06:59 14:59 Intake Total 400 Output Total 420 1200 Balance -20 -1200 Intake: IV 400 Output: Drainage 200 Abdomen 200 Urine 400 1000 Estimated Blood Loss 20 Other: Voiding Method Indwelling Catheter Indwelling Catheter # Voids 575 Weight 54 kg 09/26/24 05:30 09/26/24 02:56
[2024-09-26 18:47] LABS: Glucose,Whole Blood 130 mg/dL (70-110)
[2024-09-27] LABS: Glucose,Whole Blood 126 mg/dL (70-110)
[2024-09-27 06:03] LABS: Glucose,Whole Blood 92 mg/dL (70-110)
--- NOTE | 2024-09-27 11:17 | P.PN ---
Subjective Patient is seen in follow-up for hyponatremia. Sodium level 146 yesterday. Morning labs pending. Receiving TPN. Also on LR. Vital signs are stable. General: No acute distress. HEENT: Head exam is unremarkable. LUNGS: No audible rhonchi or wheezes. HEART: Rate and Rhythm are regular. ABDOMEN: J-tube noted. EXTREMITITES: No edema. Objective - Vital Signs Vital signs: Vital Signs Temp 97.8 F 09/27/24 08:00 Pulse 106 H 09/27/24 08:00 Resp 16 09/27/24 08:00 BP 153/91 09/27/24 08:00 Pulse Ox 100 09/27/24 08:00 FiO2 Intake & Output 09/26/24 09/27/24 09/27/24 18:59 06:59 18:59 Intake Total 310 Output Total 2400 Balance -2089 Weight 54 kg 63 kg Intake: Blood Product 310 Rc As-1 Unit 310 [id number] Output: Urine 2400 Uretheral (Perez) 800 Other: Voiding Method Indwelling Catheter Indwelling Catheter # Voids 575 - Labs CBC & Chem 7: 09/26/24 05:30 09/26/24 02:56 Labs: Abnormal Lab Results - Last 24 Hours (Table) 09/26/24 09/26/24 09/26/24 Range/Units 11:21 16:17 18:46 POC Glucose (mg/dL) 161 H 130 H (70-110) mg/dL Crossmatch See Detail 09/26/24 Range/Units 23:58 POC Glucose (mg/dL) 126 H (70-110) mg/dL Crossmatch Assessment and Plan Plan: Assessment: 1. Hypernatremia from lack of oral water intake. Sodium level 146 yesterday. 2. SMA syndrome. Surgery following. 3. Status post J-tube placement September 25, 2024. 4. Hypokalemia from poor intake. Replaced. Better. Plan: Patient was on half-normal saline and subsequently switched to LR yesterday by surgery. Morning labs pending. If sodium level getting worse, will benefit from hypotonic fluids. Replace electrolytes as needed. TPN per surgery.
[2024-09-27 11:31] LABS: Glucose,Whole Blood 84 mg/dL (70-110)
[2024-09-27 12:11] LABS: Ionized Calcium 4.8 mg/dL (4.5-5.3)
[2024-09-27 12:21] LABS: African American GFR (CKD) >90 (>60 ml/min/1.73 sqM); Anion Gap 9 mmol/L; Blood Urea Nitrogen 27 mg/dL (9-20); Calcium 8.6 mg/dL (8.4-10.2); Carbon Dioxide 28 mmol/L (22-30); Chloride 110 mmol/L (98-107); Glucose 74 mg/dL (74-99); Magnesium 1.9 mg/dL (1.6-2.3); Non-African American GFR(CKD) 90 (>60 ml/min/1.73 sqM); Phosphorus 2.9 mg/dL (2.5-4.5); Potassium 3.6 mmol/L (3.5-5.1); Sodium 147 mmol/L (137-145)
[2024-09-27 12:25] LABS: Basophils # (A) 0.04 10*3/uL (0.00-0.10); Basophils % (A) 0.4 %; Eosinophils # (A) 0.08 10*3/uL (0.04-0.35); Eosinophils % (A) 0.7 %; HCT 39.8 % (39.6-50.0); Lymphocytes # (A) 0.48 10*3/uL (0.90-5.00); Lymphocytes % (A) 4.2 %; MCH 30.7 pg (27.0-32.0); MCHC 32.7 g/dL (32.0-37.0); MCV 94.1 fL (80.0-97.0); Mean Platelet Volume 12.4 fL (9.5-12.2); Monocytes # (A) 0.41 10*3/uL (0.20-1.00); Monocytes % (A) 3.6 %; Neutrophils # (A) 10.06 10*3/uL (1.80-7.70); Platelet Count 244 10*3/uL (140-440); RBC 4.23 10*6/uL (4.40-5.60); RDW 20.2 % (11.5-14.5); WBC 11.31 10*3/uL (4.50-10.00)
[2024-09-27] MEDS: ACETAMINOPHEN IV (For NPO) 1,000 MG in EMPTY BAG 1 BAG IVPB SCH (12:37)
[2024-09-27] MEDS: METOCLOPRAMIDE 5 MG/ML 2 ML VIAL IVP PRN (13:00)
--- NOTE | 2024-09-27 14:11 | P.PN ---
Subjective Progress Note Date: 09/27/24 SURGICAL PROGRESS NOTE CHIEF COMPLAINT: Recurrent nausea and vomiting HISTORY OF PRESENT ILLNESS: Postop day #2 status post Rickie-en-Y gastrojejunostomy. Patient reports his pain is controlled. Has had no bowel activity. He is spitting up a small amount of clearish fluid. He did have more abdominal pain earlier this morning. He did receive a unit of blood yesterday for hemoglobin 8.4. Repeat hemoglobin is 13. Afebrile. He is mildly tachycardic. WBC is 1.3 Hgb 8.4 up to 13 platelets 244 sodium is 147 potassium 3.6 creatinine 0.87 PHYSICAL EXAM: VITAL SIGNS: Reviewed. GENERAL: Well-developed in no acute distress. ABDOMEN: Soft. Nondistended. Incision site clean dry and intact. PEG tube to drainage with bilious output. NEUROLOGIC: Alert and oriented. Cranial nerves II through XII grossly intact. ASSESSMENT: 1. SMA syndrome 2. Upper GI bleed with bright red blood and coffee-ground emesis. now resolved 3. Intractable nausea and vomiting 4. History of esophageal dysmotility disorder 5. Hiatal hernia 6. Esophagitis 7. Severe protein calorie malnutrition 8. Leukocytosis is reactive from surgery 9. Anemia secondary to malnutrition. PLAN: -Planning Upper GI for Monday. No radiology service available over the that can perform the upper GI -Keep patient n.p.o. -Continue TPN for nutrition support -IV Tylenol scheduled ordered for pain -Continue antibiotics -Incentive spirometer ordered -Continue IV fluids -Encourage patient to increase activity level. Consult PT -DVT prophylaxis subcu heparin Physician Flat Sorting Machine Clerk note has been reviewed by physician. Signing provider agrees with the documented findings, assessment, and plan of care. Objective - Vital Signs Vital signs: Vital Signs Temp 97.8 F 09/27/24 08:00 Pulse 109 H 09/27/24 12:00 Resp 18 09/27/24 12:00 BP 156/91 09/27/24 12:00 Pulse Ox 97 09/27/24 12:00 FiO2 Intake & Output 09/26/24 09/27/24 09/27/24 18:59 06:59 18:59 Intake Total 1351 Output Total 2400 Balance -1049 Weight 54 kg 63 kg Intake: Intake, IV Titration 1041 Amount Mvi, Adult No.4 with Vit 1041 K 10 ml Trace (Conc-1Ml/ Dose) 1 ml Calcium Gluconate 1 gm Potassium Acetate 40 meq In Amino Acids 5 %/Dextrose 20 % 1 ,000 ml @ 70 mls/hr IV . BY DURATION [facility] Rx#: [id number] Blood Product 310 Rc As-1 Unit 310 [id number] Output: Urine 2400 Uretheral (Perez) 800 Other: Voiding Method Indwelling Catheter Indwelling Catheter Indwelling Catheter # Voids 575 - Labs CBC & Chem 7: 09/27/24 11:09 09/27/24 11:09 Labs: Abnormal Lab Results - Last 24 Hours (Table) 09/26/24 09/26/24 09/26/24 Range/Units 16:17 18:46 23:58 WBC (4.50-10.00) 10*3/uL RBC (4.40-5.60) 10*6/uL MPV (9.5-12.2) fL Immature Gran # (0.00-0.04) 10*3/uL Neutrophils # (1.80-7.70) 10*3/uL Lymphocytes # (0.90-5.00) 10*3/uL Sodium (137-145) mmol/L Chloride (98-107) mmol/L BUN (9-20) mg/dL POC Glucose (mg/dL) 130 H 126 H (70-110) mg/dL Crossmatch See Detail 09/27/24 09/27/24 Range/Units 11:09 11:09 WBC 11.31 H (4.50-10.00) 10*3/uL RBC 4.23 L (4.40-5.60) 10*6/uL MPV 12.4 H (9.5-12.2) fL Immature Gran # 0.24 H (0.00-0.04) 10*3/uL Neutrophils # 10.06 H (1.80-7.70) 10*3/uL Lymphocytes # 0.48 L (0.90-5.00) 10*3/uL Sodium 147 H (137-145) mmol/L Chloride 110 H (98-107) mmol/L BUN 27 H (9-20) mg/dL POC Glucose (mg/dL) (70-110) mg/dL Crossmatch
[2024-09-27] MEDS: POTASSIUM CHLORIDE 10 MEQ in WATER FOR INJECTION 1 100ML.BAG IVPB SCH (16:46)
[2024-09-27] MEDS: SODIUM CHLORIDE 0.45% 1,000 ML IV SCH (16:47)
[2024-09-27 17:09] LABS: Glucose,Whole Blood 145 mg/dL (70-110)
--- NOTE | 2024-09-27 19:15 | P.PN ---
Subjective This is a pleasant 68 years old male who was recently discharged from this facility about 4 days ago for nausea vomiting and malnutrition status post PEG tube placement by surgery team. Once he been discharged he started having recurrent nausea vomiting again, he vomited 6 times since yesterday with no blood. Associated with epigastric pain and tenderness His troponin was elevated but EKG showing SVT. He has been evaluated by athletic gear custodian as well during last admission for elevated troponin. Currently denies chest pain or dyspnea. No specific urinary symptoms. No headache dizziness weakness or numbness He is pain mainly in the epigastric area about 9/10 felt like squeezing nonradiating with no precipitating or relieving factors. He states that the pain is similar to last time. He has no bowel movement. He is using the PEG tube at home. He got Zofran 4 mg and is requesting more medicine He is hemodynamically stable and afebrile He has unremarkable CBC, BMP, LFT. WBC is mildly elevated at 10.4 at 11. Lactic acid 4.6 came back to normal at 1.7. Troponin is elevated 0.065. KUB showing nonspecific gas bowel pattern. EKG showed SVT with a rate of [address] depression in V3-V5 Patient lying in bed with no dyspnea or chest pain He is vomiting of blood today. He still has nausea vomiting. He was on Zofran 8 mg we will going to add Reglan IV 5 and then 10 mg. hemoglobin stable at 12.4 with slight improvement. Vital stable. He is not on any blood thinners or aspirin. His on Protonix IV twice daily added today Also we added D5 normal saline Discussed the case with surgery team. CT of the abdomen pelvis with IV contrast is requested. Currently patient denies any abdominal pain or epigastric tenderness. 4/10 No vomiting today, looks tired No abdominal pain or tenderness PEG tube is in place and feeding tube on hold He still getting IV fluids and Zosyn Plan for EGD today with surgery team given his hematemesis yesterday. Hemoglobin was stable yesterday at 11.3 Monitor hemoglobin Continue with Protonix He is getting Reglan [id number] which prevent him from vomiting 09/25 i came to see the pt twice and he was no in his room 09/26 Patient seen and examined at bedside. He is awake and alert ,he is status post Roex-en-Y gastrojejunostomy. Today postop day #1 He still complaining from epigastric pain and mild tenderness with PEG tube placement to gravity. Patient is not getting tube feeding Patient is getting D5W at 100 mL/h, sodium improved 150 down to 146 today Also patient is getting Zosyn WBC 16.1, hemoglobin 8.4 and sodium 146 Is getting Reglan 5 mg as needed will added 10 mg 09/26 Patient remains with GI symptoms. PEG tube to gravity and patient received TPN. Still with nausea and some abdominal/epigastric pain and tenderness although partially improved. No other new complaint. Labs look stable or slightly improving with sodium 147, hemoglobin 13 and WBC down to 11.3 Nephrology consult was obtained Patient started on normal saline at 100 mL/h and D5W was stopped Objective - Vital Signs Vital signs: Vital Signs Temp 97.8 F 09/27/24 08:00 Pulse 106 H 09/27/24 08:00 Resp 16 09/27/24 08:00 BP 153/91 09/27/24 08:00 Pulse Ox 100 09/27/24 08:00 FiO2 Intake & Output 09/26/24 09/27/24 09/27/24 18:59 06:59 18:59 Intake Total 310 Output Total 2400 Balance -2089 Weight 54 kg 63 kg Intake: Blood Product 310 Rc As-1 Unit 310 [id number] Output: Urine 2400 Uretheral (Perez) 800 Other: Voiding Method Indwelling Catheter Indwelling Catheter # Voids 575 - Exam -GENERAL: The patient is alert and oriented x3, not in any acute distress. Well developed, well nourished. Thin built HEENT: Pupils are round and equally reacting to light. EOMI. No scleral icterus. No conjunctival pallor. Normocephalic, atraumatic. No pharyngeal erythema. No thyromegaly. CARDIOVASCULAR: S1 and S2 present. No murmurs, rubs, or gallops. PULMONARY: Chest is clear to auscultation, no wheezing , no crackles. -ABDOMEN: Soft, nontender, nondistended, normoactive bowel sounds. No palpable organomegaly. PEG tube is in place with no Abdominal tenderness or guarding MUSCULOSKELETAL: No joint swelling or deformity. EXTREMITIES: No cyanosis, clubbing, or pedal edema. NEUROLOGICAL: Gross neurological examination did not reveal any focal deficits. SKIN: No rashes. no petechiae. - Labs CBC & Chem 7: 09/27/24 11:09 09/27/24 11:09 Labs: Abnormal Lab Results - Last 24 Hours (Table) 09/26/24 09/26/24 09/26/24 Range/Units 16:17 18:46 23:58 POC Glucose (mg/dL) 130 H 126 H (70-110) mg/dL Crossmatch See Detail Assessment and Plan Assessment: Hematemesis Recurrent nausea vomiting, intractable requiring PEG tube placement during last admission. Epigastric pain and tenderness could be secondary to gastritis, status post Roex-en-Y gastrojejunostomy. S/p J-tube placement Severe calorie protein malnutrition Hypernatremia Elevated troponin could be secondary to SVT related dehydration, evaluated by cardiology during last admission Hypertension Hyperlipidemia Anxiety/depression, not on active issue - Distal esophagitis Hiatal hernia seen on recent EKG Plan: Continue with IV fluid per nephrology team S/p J-tube placement Continue with Reglan as needed 10 mg Continue with Protonix On D5W with close monitoring of sodium Continues intake via PEG tube, currently on hold in place to gravity Surgical team consult with patient status post EGD on 09/12. Nutrition consult Resume home medication Labs and medication were reviewed.. Continue same treatment. Continue with symptomatic treatment. Resume home medication. Monitor labs and vitals. DVT and GI prophylaxis. Further recommendations as per clinical course of the patient DVT prophylaxis: no Subcutaneous heparin. Continue with mechanical GI Prophylaxis: Protonix Prognosis is guarded
[2024-09-27 19:58] LABS: Glucose,Whole Blood 115 mg/dL (70-110)
[2024-09-28 00:31] LABS: Glucose,Whole Blood 116 mg/dL (70-110)
[2024-09-28 06:26] LABS: Glucose,Whole Blood 114 mg/dL (70-110)
[2024-09-28 07:09] LABS: Basophils # (A) 0.03 10*3/uL (0.00-0.10); Basophils % (A) 0.2 %; Eosinophils # (A) 0.27 10*3/uL (0.04-0.35); Lymphocytes # (A) 0.61 10*3/uL (0.90-5.00); Lymphocytes % (A) 4.6 %; MCH 31.1 pg (27.0-32.0); MCHC 33.2 g/dL (32.0-37.0); MCV 93.6 fL (80.0-97.0); Mean Platelet Volume 11.8 fL (9.5-12.2); Monocytes # (A) 0.41 10*3/uL (0.20-1.00); Monocytes % (A) 3.1 %; Neutrophils # (A) 11.75 10*3/uL (1.80-7.70); Neutrophils % (A) 88.1 %; Platelet Count 355 10*3/uL (140-440); RBC 2.99 10*6/uL (4.40-5.60); RDW 19.9 % (11.5-14.5); WBC 13.34 10*3/uL (4.50-10.00)
[2024-09-28 07:37] LABS: HGB 9.3 g/dL (13.0-17.0)
[2024-09-28 07:53] LABS: African American GFR (CKD) >90 (>60 ml/min/1.73 sqM); Anion Gap 7 mmol/L; Blood Urea Nitrogen 22 mg/dL (9-20); Calcium 8.3 mg/dL (8.4-10.2); Carbon Dioxide 24 mmol/L (22-30); Chloride 117 mmol/L (98-107); Glucose 129 mg/dL (74-99); Magnesium 1.8 mg/dL (1.6-2.3); Non-African American GFR(CKD) >90 (>60 ml/min/1.73 sqM); Phosphorus 2.5 mg/dL (2.5-4.5); Potassium 3.1 mmol/L (3.5-5.1); Sodium 148 mmol/L (137-145)
[2024-09-28] MEDS: 1: MVI, ADULT NO.4 WITH VIT K 10 ML, TRACE (CONC-1ML/DOSE) 1 ML, CALCIUM GLUCONATE 1 GM, IV SCH (09:39)
[2024-09-28] MEDS: DEXTROSE 5% IN WATER 1,000 ML IV SCH (10:37)
[2024-09-28] MEDS: HYDROmorphone 0.5 MG/0.5 ML SYRINGE IVP STA (11:54)
[2024-09-28 11:55] LABS: Glucose,Whole Blood 167 mg/dL (70-110)
--- NOTE | 2024-09-28 11:55 | P.PN ---
Subjective Patient is seen for follow-up for hypernatremia. He is maintained on TPN. Half-normal saline was started yesterday as serum sodium was increasing and today it is up to 148. No diarrhea noted Objective - Vital Signs Vital signs: Vital Signs Temp 97.8 F 09/27/24 19:40 Pulse 93 09/28/24 03:38 Resp 18 09/27/24 19:40 BP 130/85 09/28/24 03:38 Pulse Ox 98 09/28/24 03:38 FiO2 Intake & Output 09/27/24 09/28/24 09/28/24 18:59 06:59 18:59 Output Total 1000 1225 900 Balance -1000 -1225 -900 Weight 62.5 kg Output: Urine 1000 1225 900 Uretheral (Perez) 1000 1225 Other: Voiding Method Indwelling Catheter Indwelling Catheter - Exam Patient is awake, comfortable, no acute fracture Examination of the heart S1 and S2 Examination of the lungs bilateral breath sounds are heard Abdomen is soft nontender Examination of lower extremities shows no evidence of edema TOY ASSEMBLER exam grossly intact patient is moving all 4 extremities. - Labs CBC & Chem 7: 09/28/24 07:01 09/28/24 07:01 Labs: Abnormal Lab Results - Last 24 Hours (Table) 09/27/24 09/27/24 09/27/24 Range/Units 11:09 11:09 17:07 WBC 11.31 H (4.50-10.00) 10*3/uL RBC 4.23 L (4.40-5.60) 10*6/uL Hgb (13.0-17.0) g/dL Hct (39.6-50.0) % MPV 12.4 H (9.5-12.2) fL Immature Gran # 0.24 H (0.00-0.04) 10*3/uL Neutrophils # 10.06 H (1.80-7.70) 10*3/uL Lymphocytes # 0.48 L (0.90-5.00) 10*3/uL Sodium 147 H (137-145) mmol/L Potassium (3.5-5.1) mmol/L Chloride 110 H (98-107) mmol/L BUN 27 H (9-20) mg/dL Glucose (74-99) mg/dL POC Glucose (mg/dL) 145 H (70-110) mg/dL Calcium (8.4-10.2) mg/dL Triglycerides 205.00 H (0.00-149.00) mg/dL 09/27/24 09/28/24 09/28/24 Range/Units 19:58 00:30 06:24 WBC (4.50-10.00) 10*3/uL RBC (4.40-5.60) 10*6/uL Hgb (13.0-17.0) g/dL Hct (39.6-50.0) % MPV (9.5-12.2) fL Immature Gran # (0.00-0.04) 10*3/uL Neutrophils # (1.80-7.70) 10*3/uL Lymphocytes # (0.90-5.00) 10*3/uL Sodium (137-145) mmol/L Potassium (3.5-5.1) mmol/L Chloride (98-107) mmol/L BUN (9-20) mg/dL Glucose (74-99) mg/dL POC Glucose (mg/dL) 115 H 116 H 114 H (70-110) mg/dL Calcium (8.4-10.2) mg/dL Triglycerides (0.00-149.00) mg/dL 09/28/24 09/28/24 Range/Units 07:01 07:01 WBC 13.34 H (4.50-10.00) 10*3/uL RBC 2.99 L (4.40-5.60) 10*6/uL Hgb 9.3 L D (13.0-17.0) g/dL Hct 28.0 L (39.6-50.0) % MPV (9.5-12.2) fL Immature Gran # 0.27 H (0.00-0.04) 10*3/uL Neutrophils # 11.75 H (1.80-7.70) 10*3/uL Lymphocytes # 0.61 L (0.90-5.00) 10*3/uL Sodium 148 H (137-145) mmol/L Potassium 3.1 L (3.5-5.1) mmol/L Chloride 117 H (98-107) mmol/L BUN 22 H (9-20) mg/dL Glucose 129 H (74-99) mg/dL POC Glucose (mg/dL) (70-110) mg/dL Calcium 8.3 L (8.4-10.2) mg/dL Triglycerides (0.00-149.00) mg/dL Assessment and Plan Assessment: 1. Hypernatremia from lack of oral water intake. Sodium level 148 today 2. SMA syndrome. Surgery following. 3. Status post J-tube placement September 25, 2024. 4. Hypokalemia from poor intake. Replaced. Better. Plan: Switch to D5 W Discussed with nursing staff regarding decreasing sodium and TPN. Repeat labs in a.m.
--- NOTE | 2024-09-28 12:03 | P.PN ---
Subjective This is a pleasant 68 years old male who was recently discharged from this facility about 4 days ago for nausea vomiting and malnutrition status post PEG tube placement by surgery team. Once he been discharged he started having recurrent nausea vomiting again, he vomited 6 times since yesterday with no blood. Associated with epigastric pain and tenderness His troponin was elevated but EKG showing SVT. He has been evaluated by financial systems director as well during last admission for elevated troponin. Currently denies chest pain or dyspnea. No specific urinary symptoms. No headache dizziness weakness or numbness He is pain mainly in the epigastric area about 9/10 felt like squeezing nonradiating with no precipitating or relieving factors. He states that the pain is similar to last time. He has no bowel movement. He is using the PEG tube at home. He got Zofran 4 mg and is requesting more medicine He is hemodynamically stable and afebrile He has unremarkable CBC, BMP, LFT. WBC is mildly elevated at 10.4 at 11. Lactic acid 4.6 came back to normal at 1.7. Troponin is elevated 0.065. KUB showing nonspecific gas bowel pattern. EKG showed SVT with a rate of [address] depression in V3-V5 Patient lying in bed with no dyspnea or chest pain He is vomiting of blood today. He still has nausea vomiting. He was on Zofran 8 mg we will going to add Reglan IV 5 and then 10 mg. hemoglobin stable at 12.4 with slight improvement. Vital stable. He is not on any blood thinners or aspirin. His on Protonix IV twice daily added today Also we added D5 normal saline Discussed the case with surgery team. CT of the abdomen pelvis with IV contrast is requested. Currently patient denies any abdominal pain or epigastric tenderness. 4/10 No vomiting today, looks tired No abdominal pain or tenderness PEG tube is in place and feeding tube on hold He still getting IV fluids and Zosyn Plan for EGD today with surgery team given his hematemesis yesterday. Hemoglobin was stable yesterday at 11.3 Monitor hemoglobin Continue with Protonix He is getting Reglan [id number] which prevent him from vomiting 09/25 i came to see the pt twice and he was no in his room 09/26 Patient seen and examined at bedside. He is awake and alert ,he is status post Roex-en-Y gastrojejunostomy. Today postop day #1 He still complaining from epigastric pain and mild tenderness with PEG tube placement to gravity. Patient is not getting tube feeding Patient is getting D5W at 100 mL/h, sodium improved 150 down to 146 today Also patient is getting Zosyn WBC 16.1, hemoglobin 8.4 and sodium 146 Is getting Reglan 5 mg as needed will added 10 mg 09/27 Patient remains with GI symptoms. PEG tube to gravity and patient received TPN. Still with nausea and some abdominal/epigastric pain and tenderness although partially improved. No other new complaint. Labs look stable or slightly improving with sodium 147, hemoglobin 13 and WBC down to 11.3 Nephrology consult was obtained Patient started on normal saline at 100 mL/h and D5W was stopped 09/28 Patient states he is the same over the last 2 days he still have some epigastric pain and tenderness which looks the same also he has some nausea and vomiting although he was taking Reglan. Also patient WBC went up to 13.3. Hemoglobin down to 9.3 Sodium 148 potassium 3.1 Replace potassium per protocol Started on D5W at give Ativan x 1 to help with anxiety and with nausea vomiting Objective - Vital Signs Vital signs: Vital Signs Temp 97.8 F 09/27/24 19:40 Pulse 93 09/28/24 03:38 Resp 18 09/27/24 19:40 BP 130/85 09/28/24 03:38 Pulse Ox 98 09/28/24 03:38 FiO2 Intake & Output 09/27/24 09/28/24 09/28/24 18:59 06:59 18:59 Output Total 1000 1225 900 Balance -1000 -1225 -900 Weight 62.5 kg Output: Urine 1000 1225 900 Uretheral (Perez) 1000 1225 Other: Voiding Method Indwelling Catheter Indwelling Catheter - Exam -GENERAL: The patient is alert and oriented x3, not in any acute distress. Well developed, well nourished. Thin built HEENT: Pupils are round and equally reacting to light. EOMI. No scleral icterus. No conjunctival pallor. Normocephalic, atraumatic. No pharyngeal erythema. No thyromegaly. CARDIOVASCULAR: S1 and S2 present. No murmurs, rubs, or gallops. PULMONARY: Chest is clear to auscultation, no wheezing , no crackles. -ABDOMEN: Soft, nontender, nondistended, normoactive bowel sounds. No palpable organomegaly. PEG tube is in place with no Abdominal tenderness or guarding MUSCULOSKELETAL: No joint swelling or deformity. EXTREMITIES: No cyanosis, clubbing, or pedal edema. NEUROLOGICAL: Gross neurological examination did not reveal any focal deficits. SKIN: No rashes. no petechiae. - Labs CBC & Chem 7: 09/28/24 07:01 09/28/24 07:01 Labs: Abnormal Lab Results - Last 24 Hours (Table) 09/27/24 09/27/24 09/27/24 Range/Units 11:09 11:09 17:07 WBC 11.31 H (4.50-10.00) 10*3/uL RBC 4.23 L (4.40-5.60) 10*6/uL Hgb (13.0-17.0) g/dL Hct (39.6-50.0) % MPV 12.4 H (9.5-12.2) fL Immature Gran # 0.24 H (0.00-0.04) 10*3/uL Neutrophils # 10.06 H (1.80-7.70) 10*3/uL Lymphocytes # 0.48 L (0.90-5.00) 10*3/uL Sodium 147 H (137-145) mmol/L Potassium (3.5-5.1) mmol/L Chloride 110 H (98-107) mmol/L BUN 27 H (9-20) mg/dL Glucose (74-99) mg/dL POC Glucose (mg/dL) 145 H (70-110) mg/dL Calcium (8.4-10.2) mg/dL Triglycerides 205.00 H (0.00-149.00) mg/dL 09/27/24 09/28/24 09/28/24 Range/Units 19:58 00:30 06:24 WBC (4.50-10.00) 10*3/uL RBC (4.40-5.60) 10*6/uL Hgb (13.0-17.0) g/dL Hct (39.6-50.0) % MPV (9.5-12.2) fL Immature Gran # (0.00-0.04) 10*3/uL Neutrophils # (1.80-7.70) 10*3/uL Lymphocytes # (0.90-5.00) 10*3/uL Sodium (137-145) mmol/L Potassium (3.5-5.1) mmol/L Chloride (98-107) mmol/L BUN (9-20) mg/dL Glucose (74-99) mg/dL POC Glucose (mg/dL) 115 H 116 H 114 H (70-110) mg/dL Calcium (8.4-10.2) mg/dL Triglycerides (0.00-149.00) mg/dL 09/28/24 09/28/24 09/28/24 Range/Units 07:01 07:01 11:53 WBC 13.34 H (4.50-10.00) 10*3/uL RBC 2.99 L (4.40-5.60) 10*6/uL Hgb 9.3 L D (13.0-17.0) g/dL Hct 28.0 L (39.6-50.0) % MPV (9.5-12.2) fL Immature Gran # 0.27 H (0.00-0.04) 10*3/uL Neutrophils # 11.75 H (1.80-7.70) 10*3/uL Lymphocytes # 0.61 L (0.90-5.00) 10*3/uL Sodium 148 H (137-145) mmol/L Potassium 3.1 L (3.5-5.1) mmol/L Chloride 117 H (98-107) mmol/L BUN 22 H (9-20) mg/dL Glucose 129 H (74-99) mg/dL POC Glucose (mg/dL) 167 H (70-110) mg/dL Calcium 8.3 L (8.4-10.2) mg/dL Triglycerides (0.00-149.00) mg/dL Assessment and Plan Assessment: Hematemesis Recurrent nausea vomiting, intractable requiring PEG tube placement during last admission. Epigastric pain and tenderness could be secondary to gastritis, status post Roex-en-Y gastrojejunostomy. S/p J-tube placement Severe calorie protein malnutrition Hypernatremia Elevated troponin could be secondary to SVT related dehydration, evaluated by cardiology during last admission Hypertension Hyperlipidemia Anxiety/depression, not on active issue - Distal esophagitis Hiatal hernia seen on recent EKG Plan: Continue with IV fluid per nephrology team S/p J-tube placement Continue with Reglan as needed 10 mg Continue with Protonix On D5W with close monitoring of sodium Continues intake via PEG tube, currently on hold in place to gravity Surgical team consult with patient status post EGD on 09/12. Nutrition consult Resume home medication Labs and medication were reviewed.. Continue same treatment. Continue with symptomatic treatment. Resume home medication. Monitor labs and vitals. DVT and GI prophylaxis. Further recommendations as per clinical course of the patient DVT prophylaxis: no Subcutaneous heparin. Continue with mechanical GI Prophylaxis: Protonix Prognosis is guarded
[2024-09-28] MEDS: LORazepam 1 MG/0.5 ML VIAL IV STA (13:19)
[2024-09-28] MEDS: POTASSIUM CHLORIDE 10 MEQ in WATER FOR INJECTION 1 100ML.BAG IVPB SCH (15:11)
--- NOTE | 2024-09-28 16:52 | P.PN ---
Subjective Progress Note Date: 09/28/24 Patient appears to be resting in bed comfortably. He states his pain and nausea have improved compared to yesterday. On exam vital signs appear stable. Abdomen is soft. Incision site is clean dry intact. PEG tube is dependent drainage. 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 Patient will undergo esophagram upper GI on Monday. He was seen he received TPN and supportive care. Objective - Vital Signs Vital signs: Vital Signs Temp 97.8 F 09/27/24 19:40 Pulse 100 09/28/24 16:00 Resp 18 09/28/24 16:00 BP 149/94 09/28/24 16:00 Pulse Ox 95 09/28/24 16:00 FiO2 Intake & Output 09/27/24 09/28/24 09/28/24 18:59 06:59 18:59 Output Total 1000 1225 1550 Balance -1000 -1225 -1550 Weight 62.5 kg Output: Urine 1000 1225 1550 Uretheral (Perez) 1000 1225 Other: Voiding Method Indwelling Catheter Indwelling Catheter Indwelling Catheter - Labs CBC & Chem 7: 09/28/24 07:01 09/28/24 07:01 Labs: Abnormal Lab Results - Last 24 Hours (Table) 09/27/24 09/27/24 09/28/24 Range/Units 17:07 19:58 00:30 WBC (4.50-10.00) 10*3/uL RBC (4.40-5.60) 10*6/uL Hgb (13.0-17.0) g/dL Hct (39.6-50.0) % Immature Gran # (0.00-0.04) 10*3/uL Neutrophils # (1.80-7.70) 10*3/uL Lymphocytes # (0.90-5.00) 10*3/uL Sodium (137-145) mmol/L Potassium (3.5-5.1) mmol/L Chloride (98-107) mmol/L BUN (9-20) mg/dL Glucose (74-99) mg/dL POC Glucose (mg/dL) 145 H 115 H 116 H (70-110) mg/dL Calcium (8.4-10.2) mg/dL 09/28/24 09/28/24 09/28/24 Range/Units 06:24 07:01 07:01 WBC 13.34 H (4.50-10.00) 10*3/uL RBC 2.99 L (4.40-5.60) 10*6/uL Hgb 9.3 L D (13.0-17.0) g/dL Hct 28.0 L (39.6-50.0) % Immature Gran # 0.27 H (0.00-0.04) 10*3/uL Neutrophils # 11.75 H (1.80-7.70) 10*3/uL Lymphocytes # 0.61 L (0.90-5.00) 10*3/uL Sodium 148 H (137-145) mmol/L Potassium 3.1 L (3.5-5.1) mmol/L Chloride 117 H (98-107) mmol/L BUN 22 H (9-20) mg/dL Glucose 129 H (74-99) mg/dL POC Glucose (mg/dL) 114 H (70-110) mg/dL Calcium 8.3 L (8.4-10.2) mg/dL 09/28/24 Range/Units 11:53 WBC (4.50-10.00) 10*3/uL RBC (4.40-5.60) 10*6/uL Hgb (13.0-17.0) g/dL Hct (39.6-50.0) % Immature Gran # (0.00-0.04) 10*3/uL Neutrophils # (1.80-7.70) 10*3/uL Lymphocytes # (0.90-5.00) 10*3/uL Sodium (137-145) mmol/L Potassium (3.5-5.1) mmol/L Chloride (98-107) mmol/L BUN (9-20) mg/dL Glucose (74-99) mg/dL POC Glucose (mg/dL) 167 H (70-110) mg/dL Calcium (8.4-10.2) mg/dL
[2024-09-28 18:08] LABS: Glucose,Whole Blood 153 mg/dL (70-110)
[2024-09-28 19:59] LABS: Glucose,Whole Blood 164 mg/dL (70-110)
[2024-09-29 00:01] LABS: Glucose,Whole Blood 148 mg/dL (70-110)
[2024-09-29] MEDS: LORazepam 1 MG/0.5 ML VIAL IV STA (00:37)
[2024-09-29] MEDS: hydrALAZINE HCL 20 MG/ML 1 ML VIAL IVP PRN (04:36)
[2024-09-29 06:25] LABS: Glucose,Whole Blood 117 mg/dL (70-110)
[2024-09-29 06:32] LABS: Basophils # (A) 0.06 10*3/uL (0.00-0.10); Basophils % (A) 0.4 %; Eosinophils # (A) 0.36 10*3/uL (0.04-0.35); Eosinophils % (A) 2.5 %; HCT 30.4 % (39.6-50.0); HGB 9.6 g/dL (13.0-17.0); Lymphocytes # (A) 0.94 10*3/uL (0.90-5.00); Lymphocytes % (A) 6.4 %; MCH 30.1 pg (27.0-32.0); MCHC 31.6 g/dL (32.0-37.0); MCV 95.3 fL (80.0-97.0); Monocytes # (A) 0.56 10*3/uL (0.20-1.00); Monocytes % (A) 3.8 %; Neutrophils % (A) 84.4 %; Platelet Count 488 10*3/uL (140-440); RBC 3.19 10*6/uL (4.40-5.60); RDW 20.3 % (11.5-14.5); WBC 14.59 10*3/uL (4.50-10.00)
[2024-09-29 06:48] LABS: African American GFR (CKD) >90 (>60 ml/min/1.73 sqM); Anion Gap 17 mmol/L; Blood Urea Nitrogen 22 mg/dL (9-20); Calcium 8.9 mg/dL (8.4-10.2); Carbon Dioxide 26 mmol/L (22-30); Chloride 109 mmol/L (98-107); Glucose 97 mg/dL (74-99); Non-African American GFR(CKD) >90 (>60 ml/min/1.73 sqM); Phosphorus 1.8 mg/dL (2.5-4.5); Potassium 3.5 mmol/L (3.5-5.1); Sodium 152 mmol/L (137-145)
[2024-09-29] MEDS: METOPROLOL TARTRATE 5 MG/5 ML VIAL IVP STA (09:04)
[2024-09-29] MEDS: cloNIDine 0.1 MG/24HR PATCH TRANSDERM SCH (09:05)
[2024-09-29] MEDS: HYDROmorphone 0.5 MG/0.5 ML SYRINGE IVP PRN (10:17)
--- NOTE | 2024-09-29 10:25 | P.PN ---
Subjective Progress Note Date: 09/29/24 The patient is sitting up in his chair. He states he feels slightly better today. The patient has had issues with fluctuant tachycardia. His pulse rate is currently in the 120s. His recent EKG shows evidence of sinus tachycardia with possible ischemia. Patient has been evaluated by the medical and ca rdiology services. Patient states that his abdominal pain is minimal today. However still requiring narcotic for pain management. On exam vital signs appear stable. Except for the tachycardia. Abdomen is soft incision site is clean dry intact. 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 Patient will undergo esophagram upper GI tomorrow. Objective - Vital Signs Vital signs: Vital Signs Temp 97.8 F 09/29/24 03:16 Pulse 121 H 09/29/24 08:24 Resp 20 09/29/24 08:24 BP 125/74 09/29/24 08:24 Pulse Ox 98 09/29/24 08:24 FiO2 Intake & Output 09/28/24 09/29/24 09/29/24 18:59 06:59 18:59 Intake Total 1060.167 Output Total 1550 Balance -1550 1060.167 Weight 62.5 kg Intake: IV 30 Invasive Line 10 10 Invasive Line 5 20 Intake, IV Titration 1030.167 Amount Calcium Gluconate 1 gm 1030.167 Potassium Acetate 46 meq Magnesium Sulfate gm 0.5 gm In Amino Acids 5 %/ Dextrose 20 % 1,000 ml @ 70 mls/hr IV .BY DURATION [facility] Rx#:[id number] Output: Urine 1550 Other: Voiding Method Indwelling Catheter Urinal # Voids 3 - Labs CBC & Chem 7: 09/29/24 05:32 09/29/24 05:32 Labs: Abnormal Lab Results - Last 24 Hours (Table) 09/28/24 09/28/24 09/28/24 Range/Units 11:53 18:06 19:58 WBC (4.50-10.00) 10*3/uL RBC (4.40-5.60) 10*6/uL Hgb (13.0-17.0) g/dL Hct (39.6-50.0) % MCHC (32.0-37.0) g/dL Plt Count (140-440) 10*3/uL Immature Gran # (0.00-0.04) 10*3/uL Neutrophils # (1.80-7.70) 10*3/uL Eosinophils # (0.04-0.35) 10*3/uL Sodium (137-145) mmol/L Chloride (98-107) mmol/L BUN (9-20) mg/dL POC Glucose (mg/dL) 167 H 153 H 164 H (70-110) mg/dL Phosphorus (2.5-4.5) mg/dL 09/28/24 09/29/24 09/29/24 Range/Units 23:58 05:32 05:32 WBC 14.59 H (4.50-10.00) 10*3/uL RBC 3.19 L (4.40-5.60) 10*6/uL Hgb 9.6 L (13.0-17.0) g/dL Hct 30.4 L (39.6-50.0) % MCHC 31.6 L (32.0-37.0) g/dL Plt Count 488 H (140-440) 10*3/uL Immature Gran # 0.37 H (0.00-0.04) 10*3/uL Neutrophils # 12.30 H (1.80-7.70) 10*3/uL Eosinophils # 0.36 H (0.04-0.35) 10*3/uL Sodium 152 H (137-145) mmol/L Chloride 109 H (98-107) mmol/L BUN 22 H (9-20) mg/dL POC Glucose (mg/dL) 148 H (70-110) mg/dL Phosphorus 1.8 L (2.5-4.5) mg/dL 09/29/24 Range/Units 06:14 WBC (4.50-10.00) 10*3/uL RBC (4.40-5.60) 10*6/uL Hgb (13.0-17.0) g/dL Hct (39.6-50.0) % MCHC (32.0-37.0) g/dL Plt Count (140-440) 10*3/uL Immature Gran # (0.00-0.04) 10*3/uL Neutrophils # (1.80-7.70) 10*3/uL Eosinophils # (0.04-0.35) 10*3/uL Sodium (137-145) mmol/L Chloride (98-107) mmol/L BUN (9-20) mg/dL POC Glucose (mg/dL) 117 H (70-110) mg/dL Phosphorus (2.5-4.5) mg/dL
--- NOTE | 2024-09-29 11:26 | P.PN ---
Subjective Patient is seen for follow-up for hypernatremia. He is maintained on TPN. Maintained on D5W as well for hypernatremia. Serum sodium increased to 152 today. Objective - Vital Signs Vital signs: Vital Signs Temp 97.8 F 09/29/24 03:16 Pulse 111 H 09/29/24 11:10 Resp 18 09/29/24 11:10 BP 153/105 09/29/24 11:10 Pulse Ox 97 09/29/24 11:10 FiO2 Intake & Output 09/28/24 09/29/24 09/29/24 18:59 06:59 18:59 Intake Total 1060.167 10 Output Total 1550 Balance -1550 1060.167 10 Weight 62.5 kg Intake: IV 30 10 Invasive Line 10 10 10 Invasive Line 5 20 Intake, IV Titration 1030.167 Amount Calcium Gluconate 1 gm 1030.167 Potassium Acetate 46 meq Magnesium Sulfate gm 0.5 gm In Amino Acids 5 %/ Dextrose 20 % 1,000 ml @ 70 mls/hr IV .BY DURATION [facility] Rx#:[id number] Output: Urine 1550 Other: Voiding Method Indwelling Catheter Urinal # Voids 3 - Exam Patient is awake, comfortable, no acute fracture Examination of the heart S1 and S2 Examination of the lungs bilateral breath sounds are heard Abdomen is soft nontender Examination of lower extremities shows 1+ edema [employer] exam grossly intact patient is moving all 4 extremities. - Labs CBC & Chem 7: 09/29/24 05:32 09/29/24 05:32 Labs: Abnormal Lab Results - Last 24 Hours (Table) 09/28/24 09/28/24 09/28/24 Range/Units 11:53 18:06 19:58 WBC (4.50-10.00) 10*3/uL RBC (4.40-5.60) 10*6/uL Hgb (13.0-17.0) g/dL Hct (39.6-50.0) % MCHC (32.0-37.0) g/dL Plt Count (140-440) 10*3/uL Immature Gran # (0.00-0.04) 10*3/uL Neutrophils # (1.80-7.70) 10*3/uL Eosinophils # (0.04-0.35) 10*3/uL Sodium (137-145) mmol/L Chloride (98-107) mmol/L BUN (9-20) mg/dL POC Glucose (mg/dL) 167 H 153 H 164 H (70-110) mg/dL Phosphorus (2.5-4.5) mg/dL 09/28/24 09/29/24 09/29/24 Range/Units 23:58 05:32 05:32 WBC 14.59 H (4.50-10.00) 10*3/uL RBC 3.19 L (4.40-5.60) 10*6/uL Hgb 9.6 L (13.0-17.0) g/dL Hct 30.4 L (39.6-50.0) % MCHC 31.6 L (32.0-37.0) g/dL Plt Count 488 H (140-440) 10*3/uL Immature Gran # 0.37 H (0.00-0.04) 10*3/uL Neutrophils # 12.30 H (1.80-7.70) 10*3/uL Eosinophils # 0.36 H (0.04-0.35) 10*3/uL Sodium 152 H (137-145) mmol/L Chloride 109 H (98-107) mmol/L BUN 22 H (9-20) mg/dL POC Glucose (mg/dL) 148 H (70-110) mg/dL Phosphorus 1.8 L (2.5-4.5) mg/dL 09/29/24 Range/Units 06:14 WBC (4.50-10.00) 10*3/uL RBC (4.40-5.60) 10*6/uL Hgb (13.0-17.0) g/dL Hct (39.6-50.0) % MCHC (32.0-37.0) g/dL Plt Count (140-440) 10*3/uL Immature Gran # (0.00-0.04) 10*3/uL Neutrophils # (1.80-7.70) 10*3/uL Eosinophils # (0.04-0.35) 10*3/uL Sodium (137-145) mmol/L Chloride (98-107) mmol/L BUN (9-20) mg/dL POC Glucose (mg/dL) 117 H (70-110) mg/dL Phosphorus (2.5-4.5) mg/dL Assessment and Plan Assessment: 1. Hypernatremia from lack of oral water intake. Sodium level 152 today 2. SMA syndrome. Surgery following. 3. Status post J-tube placement September 25, 2024. 4. Hypokalemia from poor intake. Replaced. Better. Plan: Increase D5W Repeat labs in a.m.
[2024-09-29 11:54] LABS: Glucose,Whole Blood 124 mg/dL (70-110)
[2024-09-29] MEDS: METOPROLOL TARTRATE 5 MG/5 ML VIAL IVP PRN (14:22)
[2024-09-29 18:02] LABS: Glucose,Whole Blood 106 mg/dL (70-110)
--- NOTE | 2024-09-29 19:17 | P.PN ---
Subjective This is a pleasant 68 years old male who was recently discharged from this facility about 4 days ago for nausea vomiting and malnutrition status post PEG tube placement by surgery team. Once he been discharged he started having recurrent nausea vomiting again, he vomited 6 times since yesterday with no blood. Associated with epigastric pain and tenderness His troponin was elevated but EKG showing SVT. He has been evaluated by candle molder machine as well during last admission for elevated troponin. Currently denies chest pain or dyspnea. No specific urinary symptoms. No headache dizziness weakness or numbness He is pain mainly in the epigastric area about 9/10 felt like squeezing nonradiating with no precipitating or relieving factors. He states that the pain is similar to last time. He has no bowel movement. He is using the PEG tube at home. He got Zofran 4 mg and is requesting more medicine He is hemodynamically stable and afebrile He has unremarkable CBC, BMP, LFT. WBC is mildly elevated at 10.4 at 11. Lactic acid 4.6 came back to normal at 1.7. Troponin is elevated 0.065. KUB showing nonspecific gas bowel pattern. EKG showed SVT with a rate of [address] depression in V3-V5 Patient lying in bed with no dyspnea or chest pain He is vomiting of blood today. He still has nausea vomiting. He was on Zofran 8 mg we will going to add Reglan IV 5 and then 10 mg. hemoglobin stable at 12.4 with slight improvement. Vital stable. He is not on any blood thinners or aspirin. His on Protonix IV twice daily added today Also we added D5 normal saline Discussed the case with surgery team. CT of the abdomen pelvis with IV contrast is requested. Currently patient denies any abdominal pain or epigastric tenderness. 4/10 No vomiting today, looks tired No abdominal pain or tenderness PEG tube is in place and feeding tube on hold He still getting IV fluids and Zosyn Plan for EGD today with surgery team given his hematemesis yesterday. Hemoglobin was stable yesterday at 11.3 Monitor hemoglobin Continue with Protonix He is getting Reglan [id number] which prevent him from vomiting 09/25 i came to see the pt twice and he was no in his room 09/26 Patient seen and examined at bedside. He is awake and alert ,he is status post Roex-en-Y gastrojejunostomy. Today postop day #1 He still complaining from epigastric pain and mild tenderness with PEG tube placement to gravity. Patient is not getting tube feeding Patient is getting D5W at 100 mL/h, sodium improved 150 down to 146 today Also patient is getting Zosyn WBC 16.1, hemoglobin 8.4 and sodium 146 Is getting Reglan 5 mg as needed will added 10 mg 09/27 Patient remains with GI symptoms. PEG tube to gravity and patient received TPN. Still with nausea and some abdominal/epigastric pain and tenderness although partially improved. No other new complaint. Labs look stable or slightly improving with sodium 147, hemoglobin 13 and WBC down to 11.3 Nephrology consult was obtained Patient started on normal saline at 100 mL/h and D5W was stopped 09/28 Patient states he is the same over the last 2 days he still have some epigastric pain and tenderness which looks the same also he has some nausea and vomiting although he was taking Reglan. Also patient WBC went up to 13.3. Hemoglobin down to 9.3 Sodium 148 potassium 3.1 Replace potassium per protocol Started on D5W at give Ativan x 1 to help with anxiety and with nausea vomiting 09/29 Patient developed significant tachycardia last night and this morning with heart rate going up to 150 and 160/min. EKG showing sinus tachycardia. Heart rate improved down to 100 and blood pressure stable with systolic 120-150 It is thought multifactorial secondary to anxiety dehydration infection electrolyte abnormalities and pain. D-dimer is ordered but the suspicion for PE is low Patient with no chest pain or dyspnea, actually patient this is the first time he told me he feels better since I saw him from admission. He was sitting in chair with slight weakness. He still getting TPN Zosyn. He getting D5W at 50 mL/h but sodium increased to 152 so increase the dose to 125 mL/h Dilaudid added IV Lopressor 5 mg every 8 hours and clonidine patch 0.1 mg Also low potassium and magnesium being replaced. Active Medications Generic Name Dose Route Start Last Admin Trade Name Freq PRN Reason Stop Dose Admin Clonidine HCl 1 patch 09/29/24 09:00 09/29/24 09:05 Clonidine 0.1 Mg/24hr Patch TRANSDERM 1 patch Q7D GIRISH Administration Dextrose/Water 25 ml 09/13/24 12:33 Dextrose 50% Syringe 50 Ml IVP PER PROTOCOL PRN Hypoglycemia Protocol Dextrose/Water 50 ml 09/13/24 12:33 Dextrose 50% Syringe 50 Ml IVP PER PROTOCOL PRN Hypoglycemia Protocol Heparin Sodium (Porcine) 5,000 unit 09/23/24 09:00 09/29/24 08:30 Heparin Sodium,Porcine 5,000 Unit/Ml 1 Ml Vial SQ 5,000 unit Q12HR GIRISH Administration Hydralazine HCl 10 mg 09/29/24 04:29 09/29/24 04:36 Hydralazine Hcl 20 Mg/Ml 1 Ml Vial IVP 10 mg Q6HR PRN Administration Blood Pressure - High Hydromorphone HCl 1 mg 09/09/24 23:22 09/29/24 15:54 Hydromorphone 0.5 Mg/0.5 Ml Syringe IVP 1 mg Q3HR PRN Administration Severe Pain (Scale 7 to 10) Hydromorphone HCl 0.5 mg 09/29/24 09:58 09/29/24 14:13 Hydromorphone 0.5 Mg/0.5 Ml Syringe IVP 0.5 mg Q1HR PRN Administration Pain Fat Emulsion Intravenous 250 250 mls @ 21 mls/hr 09/13/24 14:00 09/28/24 17:36 ml/ IV Solution IV 21 mls/hr Q72H GIRISH Administration Piperacillin Sod/Tazobactam 100 mls @ 25 mls/hr 09/16/24 16:00 09/29/24 15:52 Sod 3.375 gm/ Sodium Chloride IVPB 25 mls/hr Q8H GIRISH Administration Protocol Parenteral Vitamin Supplement 1,045 mls @ 70 mls/hr 09/28/24 02:00 09/29/24 17:07 10 ml/ Zinc/Copper/Manganese/ IV 70 mls/hr Selenium 1 ml/ Calcium .BY DURATION GIRISH Administration Gluconate 1 gm/ Potassium Acetate 46 meq/ Magnesium Sulfate 0.5 gm/ Amino Acids/ Dextrose Calcium Gluconate 1 gm/ 1,034 mls @ 70 mls/hr 09/28/24 02:00 09/29/24 00:22 Potassium Acetate 46 meq/ IV 70 mls/hr Magnesium Sulfate 0.5 gm/ .BY DURATION GIRISH Administration Amino Acids/Dextrose Dextrose/Water 1,000 mls @ 125 mls/hr 09/28/24 10:15 09/29/24 15:57 Dextrose 5%-Water Iv Soln IV 125 mls/hr .Q8H GIRISH Administration Magnesium Sulfate/Dextrose 1 100 mls @ 100 mls/hr 09/29/24 19:15 gm/ IV Solution IVPB 09/29/24 21:14 Q1H GIRISH Potassium Chloride 10 meq/ IV 100 mls @ 100 mls/hr 09/29/24 19:12 Solution IVPB 09/29/24 20:11 ONCE STA Insulin Human Lispro 0 unit 09/26/24 00:15 09/29/24 11:57 Insulin Lispro (Humalog) 100 Unit/Ml 10 Ml Vl SQ Not Given Q6HR [facility], [facility] Protocol Lidocaine HCl 0.1 ml 09/12/24 11:23 Lidocaine 1% (10mg/Ml) For Iv Start INTRADERMA PER PROTOCOL PRN IV Start Lorazepam 1 mg 09/11/24 12:26 09/29/24 17:29 Lorazepam 1 Mg/0.5 Ml Vial IV 1 mg Q6HR PRN Administration Anxiety Metoclopramide HCl 10 mg 09/26/24 08:52 09/28/24 22:10 Metoclopramide 5 Mg/Ml 2 Ml Vial IVP 10 mg Q6HR PRN Administration Nausea And Vomiting Metoprolol Tartrate 5 mg 09/29/24 12:29 09/29/24 14:22 Metoprolol Tartrate 5 Mg/5 Ml Vial IVP 5 mg Q8HR PRN Administration Heart Rate - HIGH Miscellaneous Information 1 each 09/11/24 09:50 Potassium Replacement Protocol 1 Each Misc MISCELLANE DAILY PRN Per Protocol Protocol Naloxone HCl 0.2 mg 09/09/24 23:22 Naloxone 0.4 Mg/Ml 1 Ml Vial IV Q2M PRN Opioid Reversal Ondansetron HCl 8 mg 09/11/24 11:10 09/29/24 03:36 Ondansetron 4 Mg/2 Ml Vial IVP 8 mg Q6HR PRN Administration Nausea And Vomiting Pantoprazole Sodium 40 mg 09/11/24 09:00 09/29/24 08:30 Pantoprazole 40 Mg/10 Ml Vial IV 40 mg BID GIRISH Administration Objective - Vital Signs Vital signs: Vital Signs Temp 97.8 F 09/29/24 03:16 Pulse 100 09/29/24 15:51 Resp 20 09/29/24 15:51 BP 153/105 09/29/24 11:10 Pulse Ox 97 09/29/24 11:10 FiO2 Intake & Output 09/29/24 09/29/24 09/30/24 06:59 18:59 06:59 Intake Total 1060.167 20 Balance 1060.167 20 Weight 62.5 kg Intake: IV 30 20 Invasive Line 10 10 20 Invasive Line 5 20 Intake, IV Titration 1030.167 Amount Calcium Gluconate 1 gm 1030.167 Potassium Acetate 46 meq Magnesium Sulfate gm 0.5 gm In Amino Acids 5 %/ Dextrose 20 % 1,000 ml @ 70 mls/hr IV .BY DURATION [facility], [facility] Rx#:[id number] Other: Voiding Method Urinal Urinal # Voids 3 - Exam -GENERAL: The patient is alert and oriented x3, not in any acute distress. Well developed, well nourished. Thin built HEENT: Pupils are round and equally reacting to light. EOMI. No scleral icterus. No conjunctival pallor. Normocephalic, atraumatic. No pharyngeal erythema. No thyromegaly. CARDIOVASCULAR: S1 and S2 present. No murmurs, rubs, or gallops. PULMONARY: Chest is clear to auscultation, no wheezing , no crackles. -ABDOMEN: Soft, nontender, nondistended, normoactive bowel sounds. No palpable organomegaly. PEG tube is in place with no Abdominal tenderness or guarding MUSCULOSKELETAL: No joint swelling or deformity. EXTREMITIES: No cyanosis, clubbing, or pedal edema. NEUROLOGICAL: Gross neurological examination did not reveal any focal deficits. SKIN: No rashes. no petechiae. - Labs CBC & Chem 7: 09/29/24 05:32 09/29/24 05:32 Labs: Abnormal Lab Results - Last 24 Hours (Table) 09/28/24 09/28/24 09/29/24 Range/Units 19:58 23:58 05:32 WBC 14.59 H (4.50-10.00) 10*3/uL RBC 3.19 L (4.40-5.60) 10*6/uL Hgb 9.6 L (13.0-17.0) g/dL Hct 30.4 L (39.6-50.0) % MCHC 31.6 L (32.0-37.0) g/dL Plt Count 488 H (140-440) 10*3/uL Immature Gran # 0.37 H (0.00-0.04) 10*3/uL Neutrophils # 12.30 H (1.80-7.70) 10*3/uL Eosinophils # 0.36 H (0.04-0.35) 10*3/uL Sodium (137-145) mmol/L Chloride (98-107) mmol/L BUN (9-20) mg/dL POC Glucose (mg/dL) 164 H 148 H (70-110) mg/dL Phosphorus (2.5-4.5) mg/dL 09/29/24 09/29/24 09/29/24 Range/Units 05:32 06:14 11:52 WBC (4.50-10.00) 10*3/uL RBC (4.40-5.60) 10*6/uL Hgb (13.0-17.0) g/dL Hct (39.6-50.0) % MCHC (32.0-37.0) g/dL Plt Count (140-440) 10*3/uL Immature Gran # (0.00-0.04) 10*3/uL Neutrophils # (1.80-7.70) 10*3/uL Eosinophils # (0.04-0.35) 10*3/uL Sodium 152 H (137-145) mmol/L Chloride 109 H (98-107) mmol/L BUN 22 H (9-20) mg/dL POC Glucose (mg/dL) 117 H 124 H (70-110) mg/dL Phosphorus 1.8 L (2.5-4.5) mg/dL Assessment and Plan Assessment: Hematemesis Recurrent nausea vomiting, intractable requiring PEG tube placement during last admission. Epigastric pain and tenderness could be secondary to gastritis, status post Roex-en-Y gastrojejunostomy. S/p J-tube placement Severe calorie protein malnutrition Hypernatremia Sinus tachycardia versus SVT Elevated troponin could be secondary to SVT related dehydration, evaluated by cardiology during last admission Hypertension Hyperlipidemia Anxiety/depression, not on active issue - Distal esophagitis Hiatal hernia seen on recent EKG Plan: Continue with IV fluid per nephrology team. Currently on D5W S/p J-tube placement Continue with Reglan as needed 10 mg Continue with Protonix Start IV Lopressor 5 mg 3 times daily and clonidine patch 0.1 mg and monitor heart rate Continues with J-tube, currently on hold in place to gravity Surgical team consult with patient status post EGD on 09/12. Nutrition consult Resume home medication Labs and medication were reviewed.. Continue same treatment. Continue with symptomatic treatment. Resume home medication. Monitor labs and vitals. DVT and GI prophylaxis. Further recommendations as per clinical course of the patient DVT prophylaxis: no Subcutaneous heparin. Continue with mechanical GI Prophylaxis: Protonix Prognosis is guarded
[2024-09-29] MEDS: POTASSIUM CHLORIDE 10 MEQ in WATER FOR INJECTION 1 100ML.BAG IVPB STA (19:54)
[2024-09-29] MEDS: MAGNESIUM SULFATE-D5W PMX 1 GM in DEXTROSE/WATER 1 100ML.BAG IVPB SCH (21:20)
[2024-09-30 00:16] LABS: Glucose,Whole Blood 142 mg/dL (70-110)
[2024-09-30] MEDS ORDERED: RX INFO: IV CONTRAST WAS GIVEN 1 EACH MISC MISCELLANE PRN (00:24)
[2024-09-30] MEDS: cloNIDine 0.2 MG/24HR PATCH TRANSDERM SCH (03:22)
[2024-09-30 05:50] LABS: Glucose,Whole Blood 150 mg/dL (70-110)
--- NOTE | 2024-09-30 09:17 | P.PN ---
Subjective This is a pleasant 68 years old male who was recently discharged from this facility about 4 days ago for nausea vomiting and malnutrition status post PEG tube placement by surgery team. Once he been discharged he started having recurrent nausea vomiting again, he vomited 6 times since yesterday with no blood. Associated with epigastric pain and tenderness His troponin was elevated but EKG showing SVT. He has been evaluated by raw juice weigher as well during last admission for elevated troponin. Currently denies chest pain or dyspnea. No specific urinary symptoms. No headache dizziness weakness or numbness He is pain mainly in the epigastric area about 9/10 felt like squeezing nonradiating with no precipitating or relieving factors. He states that the pain is similar to last time. He has no bowel movement. He is using the PEG tube at home. He got Zofran 4 mg and is requesting more medicine He is hemodynamically stable and afebrile He has unremarkable CBC, BMP, LFT. WBC is mildly elevated at 10.4 at 11. Lactic acid 4.6 came back to normal at 1.7. Troponin is elevated 0.065. KUB showing nonspecific gas bowel pattern. EKG showed SVT with a rate of [address] depression in V3-V5 Patient lying in bed with no dyspnea or chest pain He is vomiting of blood today. He still has nausea vomiting. He was on Zofran 8 mg we will going to add Reglan IV 5 and then 10 mg. hemoglobin stable at 12.4 with slight improvement. Vital stable. He is not on any blood thinners or aspirin. His on Protonix IV twice daily added today Also we added D5 normal saline Discussed the case with surgery team. CT of the abdomen pelvis with IV contrast is requested. Currently patient denies any abdominal pain or epigastric tenderness. 4/10 No vomiting today, looks tired No abdominal pain or tenderness PEG tube is in place and feeding tube on hold He still getting IV fluids and Zosyn Plan for EGD today with surgery team given his hematemesis yesterday. Hemoglobin was stable yesterday at 11.3 Monitor hemoglobin Continue with Protonix He is getting Reglan [id number] which prevent him from vomiting 09/25 i came to see the pt twice and he was no in his room 09/26 Patient seen and examined at bedside. He is awake and alert ,he is status post Roex-en-Y gastrojejunostomy. Today postop day #1 He still complaining from epigastric pain and mild tenderness with PEG tube placement to gravity. Patient is not getting tube feeding Patient is getting D5W at 100 mL/h, sodium improved 150 down to 146 today Also patient is getting Zosyn WBC 16.1, hemoglobin 8.4 and sodium 146 Is getting Reglan 5 mg as needed will added 10 mg 09/27 Patient remains with GI symptoms. PEG tube to gravity and patient received TPN. Still with nausea and some abdominal/epigastric pain and tenderness although partially improved. No other new complaint. Labs look stable or slightly improving with sodium 147, hemoglobin 13 and WBC down to 11.3 Nephrology consult was obtained Patient started on normal saline at 100 mL/h and D5W was stopped 09/28 Patient states he is the same over the last 2 days he still have some epigastric pain and tenderness which looks the same also he has some nausea and vomiting although he was taking Reglan. Also patient WBC went up to 13.3. Hemoglobin down to 9.3 Sodium 148 potassium 3.1 Replace potassium per protocol Started on D5W at give Ativan x 1 to help with anxiety and with nausea vomiting 09/29 Patient developed significant tachycardia last night and this morning with heart rate going up to 150 and 160/min. EKG showing sinus tachycardia. Heart rate improved down to 100 and blood pressure stable with systolic 120-150 It is thought multifactorial secondary to anxiety dehydration infection electrolyte abnormalities and pain. D-dimer is ordered but the suspicion for PE is low Patient with no chest pain or dyspnea, actually patient this is the first time he told me he feels better since I saw him from admission. He was sitting in chair with slight weakness. He still getting TPN Zosyn. He getting D5W at 50 mL/h but sodium increased to 152 so increase the dose to 125 mL/h Dilaudid added IV Lopressor 5 mg every 8 hours and clonidine patch 0.1 mg Also low potassium and magnesium being replaced. 09/30 Patient is lethargic today with some nausea. He denies epigastric abdominal pain. He is still tachycardic with heart around 120 WBC is 14.5, hemoglobin 9.6 and He remains on D5W at 125 Eliquis dose lowered to 2.5 Active Medications Generic Name Dose Route Start Last Admin Trade Name Freq PRN Reason Stop Dose Admin Clonidine HCl 1 patch 09/29/24 09:00 09/29/24 09:05 Clonidine 0.1 Mg/24hr Patch TRANSDERM 1 patch Q7D GIRISH Administration Dextrose/Water 25 ml 09/13/24 12:33 Dextrose 50% Syringe 50 Ml IVP PER PROTOCOL PRN Hypoglycemia Protocol Dextrose/Water 50 ml 09/13/24 12:33 Dextrose 50% Syringe 50 Ml IVP PER PROTOCOL PRN Hypoglycemia Protocol Heparin Sodium (Porcine) 5,000 unit 09/23/24 09:00 09/29/24 08:30 Heparin Sodium,Porcine 5,000 Unit/Ml 1 Ml Vial SQ 5,000 unit Q12HR GIRISH Administration Hydralazine HCl 10 mg 09/29/24 04:29 09/29/24 04:36 Hydralazine Hcl 20 Mg/Ml 1 Ml Vial IVP 10 mg Q6HR PRN Administration Blood Pressure - High Hydromorphone HCl 1 mg 09/09/24 23:22 09/29/24 15:54 Hydromorphone 0.5 Mg/0.5 Ml Syringe IVP 1 mg Q3HR PRN Administration Severe Pain (Scale 7 to 10) Hydromorphone HCl 0.5 mg 09/29/24 09:58 09/29/24 14:13 Hydromorphone 0.5 Mg/0.5 Ml Syringe IVP 0.5 mg Q1HR PRN Administration Pain Fat Emulsion Intravenous 250 250 mls @ 21 mls/hr 09/13/24 14:00 09/28/24 17:36 ml/ IV Solution IV 21 mls/hr Q72H GIRISH Administration Piperacillin Sod/Tazobactam 100 mls @ 25 mls/hr 09/16/24 16:00 09/29/24 15:52 Sod 3.375 gm/ Sodium Chloride IVPB 25 mls/hr Q8H GIRISH Administration Protocol Parenteral Vitamin Supplement 1,045 mls @ 70 mls/hr 09/28/24 02:00 09/29/24 17:07 10 ml/ Zinc/Copper/Manganese/ IV 70 mls/hr Selenium 1 ml/ Calcium .BY DURATION GIRISH Administration Gluconate 1 gm/ Potassium Acetate 46 meq/ Magnesium Sulfate 0.5 gm/ Amino Acids/ Dextrose Calcium Gluconate 1 gm/ 1,034 mls @ 70 mls/hr 09/28/24 02:00 09/29/24 00:22 Potassium Acetate 46 meq/ IV 70 mls/hr Magnesium Sulfate 0.5 gm/ .BY DURATION GIRISH Administration Amino Acids/Dextrose Dextrose/Water 1,000 mls @ 125 mls/hr 09/28/24 10:15 09/29/24 15:57 Dextrose 5%-Water Iv Soln IV 125 mls/hr .Q8H GIRISH Administration Magnesium Sulfate/Dextrose 1 100 mls @ 100 mls/hr 09/29/24 19:15 gm/ IV Solution IVPB 09/29/24 21:14 Q1H GIRISH Potassium Chloride 10 meq/ IV 100 mls @ 100 mls/hr 09/29/24 19:12 Solution IVPB 09/29/24 20:11 ONCE STA Insulin Human Lispro 0 unit 09/26/24 00:15 09/29/24 11:57 Insulin Lispro (Humalog) 100 Unit/Ml 10 Ml Vl SQ Not Given Q6HR [facility] Protocol Lidocaine HCl 0.1 ml 09/12/24 11:23 Lidocaine 1% (10mg/Ml) For Iv Start INTRADERMA PER PROTOCOL PRN IV Start Lorazepam 1 mg 09/11/24 12:26 09/29/24 17:29 Lorazepam 1 Mg/0.5 Ml Vial IV 1 mg Q6HR PRN Administration Anxiety Metoclopramide HCl 10 mg 09/26/24 08:52 09/28/24 22:10 Metoclopramide 5 Mg/Ml 2 Ml Vial IVP 10 mg Q6HR PRN Administration Nausea And Vomiting Metoprolol Tartrate 5 mg 09/29/24 12:29 09/29/24 14:22 Metoprolol Tartrate 5 Mg/5 Ml Vial IVP 5 mg Q8HR PRN Administration Heart Rate - HIGH Miscellaneous Information 1 each 09/11/24 09:50 Potassium Replacement Protocol 1 Each Misc MISCELLANE DAILY PRN Per Protocol Protocol Naloxone HCl 0.2 mg 09/09/24 23:22 Naloxone 0.4 Mg/Ml 1 Ml Vial IV Q2M PRN Opioid Reversal Ondansetron HCl 8 mg 09/11/24 11:10 09/29/24 03:36 Ondansetron 4 Mg/2 Ml Vial IVP 8 mg Q6HR PRN Administration Nausea And Vomiting Pantoprazole Sodium 40 mg 09/11/24 09:00 09/29/24 08:30 Pantoprazole 40 Mg/10 Ml Vial IV 40 mg BID GIRISH Administration Objective - Vital Signs Vital signs: Vital Signs Temp 97.1 F L 09/30/24 03:20 Pulse 120 H 09/30/24 03:20 Resp 18 09/30/24 03:20 BP 157/69 09/30/24 03:20 Pulse Ox 99 09/30/24 03:20 FiO2 Intake & Output 09/29/24 09/30/24 09/30/24 18:59 06:59 18:59 Intake Total 1054 10 0 Balance 1054 10 0 Weight 62.5 kg Intake: IV 20 10 Invasive Line 10 20 10 Intake, IV Titration 1034 Amount Calcium Gluconate 1 gm 1034 Potassium Acetate 46 meq Magnesium Sulfate gm 0.5 gm In Amino Acids 5 %/ Dextrose 20 % 1,000 ml @ 70 mls/hr IV .BY DURATION GIRISH Rx#:[id number] Oral 0 Other: Voiding Method Urinal Urinal # Voids 2 1 # Bowel Movements 0 - Exam -GENERAL: The patient is alert and oriented x3, not in any acute distress. Well developed, well nourished. Thin built HEENT: Pupils are round and equally reacting to light. EOMI. No scleral icterus. No conjunctival pallor. Normocephalic, atraumatic. No pharyngeal erythema. No thyromegaly. CARDIOVASCULAR: S1 and S2 present. No murmurs, rubs, or gallops. PULMONARY: Chest is clear to auscultation, no wheezing , no crackles. -ABDOMEN: Soft, nontender, nondistended, normoactive bowel sounds. No palpable organomegaly. PEG tube is in place with no Abdominal tenderness or guarding MUSCULOSKELETAL: No joint swelling or deformity. EXTREMITIES: No cyanosis, clubbing, or pedal edema. NEUROLOGICAL: Gross neurological examination did not reveal any focal deficits. SKIN: No rashes. no petechiae. - Labs CBC & Chem 7: 09/29/24 05:32 09/29/24 05:32 Labs: Abnormal Lab Results - Last 24 Hours (Table) 09/29/24 09/29/24 09/30/24 Range/Units 11:52 22:09 00:15 D-Dimer 5.73 H (<0.60) mg/L FEU POC Glucose (mg/dL) 124 H 142 H (70-110) mg/dL 04/28/25 Range/Units 05:49 D-Dimer (<0.60) mg/L FEU POC Glucose (mg/dL) 150 H (70-110) mg/dL Assessment and Plan Assessment: Hematemesis Recurrent nausea vomiting, intractable requiring PEG tube placement during last admission. Epigastric pain and tenderness could be secondary to gastritis, status post Roex-en-Y gastrojejunostomy. S/p J-tube placement Severe calorie protein malnutrition Hypernatremia Sinus tachycardia versus SVT Elevated troponin could be secondary to SVT related dehydration, evaluated by cardiology during last admission Hypertension Hyperlipidemia Anxiety/depression, not on active issue - Distal esophagitis Hiatal hernia seen on recent EKG Plan: Continue with IV fluid per nephrology team. Currently on D5W S/p J-tube placement Continue with Reglan as needed 10 mg Continue with Protonix Start IV Lopressor 5 mg 3 times daily and clonidine patch 0.1 mg and monitor heart rate Continues with J-tube, currently on hold in place to gravity Surgical team consult with patient status post EGD on 09/12. Nutrition consult Resume home medication Labs and medication were reviewed.. Continue same treatment. Continue with symptomatic treatment. Resume home medication. Monitor labs and vitals. DVT and GI prophylaxis. Further recommendations as per clinical course of the patient DVT prophylaxis: no Subcutaneous heparin. Continue with mechanical GI Prophylaxis: Protonix Prognosis is guarded
--- NOTE | 2024-09-30 10:28 | CT ---
EXAMINATION TYPE: CT chest angio for PE DATE OF EXAM: 09/30/2024 10:09 AM COMPARISON: 10/29/2023 CLINICAL INDICATION: Male, 68 years old with history of Elevated D-Dimer; shortness of breath TECHNIQUE/CONTRAST: CTA scan of the thorax is performed with IV Contrast, patient injected with 100 mL of Isovue 370, MIP images are created and reviewed these are created on a separate workstation.. CT DLP: 310.2 mGycm, Automated exposure control for dose reduction was used. FINDINGS: Right PICC tip located within the SVC. Heart upper limits of normal in size without pericardial effusion. No flattening of the interventricu lar septum or reflux of contrast into the hepatic veins. No significant coronary artery calcification s are seen. Mild generalized anasarca change. Moderate bilateral gynecomastia. Aorta normal caliber with conventional branching anatomy. A few scattered prominent but nonenlarged mediastinal lymph nodes remain unchanged from 10/29/2023. No progressive thoracic adenopathy is seen. Satisfactory opacification of the pulmonary arterial system. There is prominent motion at the lower l ungs limiting the evaluation. No large central or lobar branch pulmonary embolus is seen. No segmenta l or more distal arterial branch embolus at the upper to mid lung levels. Smaller branches in the low er lungs are very limited nondiagnostic. Right apical pleural parenchymal scarring. Mild emphysematous change. A few scattered patchy groundglass foci are present. Some areas have a more nodular configuration suc h as in the lateral left lower lobe measuring up to 1.1 cm and at the medial right base measuring 9 m m. Prominent strandy atelectasis at the lung bases. No sizable pleural effusion. Prominent secretions/ingested material scattered throughout the thoracic esophagus. There is postsurg ical change at the GE junction. PEG tube is in place. Post surgical change of gastrojejunostomy just beyond the PEG tube. Mild free air likely due to recent surgery. Cholecystectomy clips. Bones: DISH throughout the mid and lower thoracic spine. IMPRESSION: 1. Prominent breathing motion at the lower lungs limiting the evaluation. No large central embolus is seen. No definite pulmonary embolus at the upper or mid lungs. Smaller arterial branches in the lowe r lungs are limited to nondiagnostic due to the breathing motion. 2. Scattered nodular and patchy groundglass foci bilaterally. Consider developing multifocal pneumoni a, aspiration, and DATABASE MANAGER as some differential considerations. As some of these areas have a more nodula r configuration measuring up to 1.1 cm, 3 month follow-up CT recommended to ensure clearance. 3. Retained secretions/ingested material within the esophagus. Given this finding, aspiration may be somewhat favored. 4. Postsurgical change at the GE junction. Correlate as to what surgery was done here. There is addit ional postsurgical change of gastrojejunostomy just beyond the PEG tube. 5. Mild free intraperitoneal air likely due to recent surgery. Clinically correlate. [facility], , 09/30/2024 10:25 AM
[2024-09-30 12:20] LABS: Basophils # (A) 0.05 10*3/uL (0.00-0.10); Basophils % (A) 0.4 %; Eosinophils # (A) 0.27 10*3/uL (0.04-0.35); HGB 10.1 g/dL (13.0-17.0); Lymphocytes # (A) 0.59 10*3/uL (0.90-5.00); Lymphocytes % (A) 4.4 %; MCHC 33.7 g/dL (32.0-37.0); Mean Platelet Volume 12.3 fL (9.5-12.2); Monocytes # (A) 0.54 10*3/uL (0.20-1.00); Neutrophils # (A) 11.75 10*3/uL (1.80-7.70); Neutrophils % (A) 87.1 %; Platelet Count 269 10*3/uL (140-440); RBC 3.26 10*6/uL (4.40-5.60); RDW 19.2 % (11.5-14.5); WBC 13.49 10*3/uL (4.50-10.00)
[2024-09-30 12:23] LABS: Glucose,Whole Blood 156 mg/dL (70-110)
[2024-09-30 12:36] LABS: African American GFR (CKD) >90 (>60 ml/min/1.73 sqM); Anion Gap 8 mmol/L; Blood Urea Nitrogen 21 mg/dL (9-20); Calcium 8.6 mg/dL (8.4-10.2); Carbon Dioxide 25 mmol/L (22-30); Chloride 109 mmol/L (98-107); Glucose 141 mg/dL (74-99); Non-African American GFR(CKD) >90 (>60 ml/min/1.73 sqM); Phosphorus 1.4 mg/dL (2.5-4.5); Sodium 142 mmol/L (137-145)
--- NOTE | 2024-09-30 12:37 | FL ---
EXAMINATION TYPE: FL UGI w esophagus DATE OF EXAM: 09/30/2024 LIMITED UGI: CLINICAL INDICATION: Male, 68 years old with history of Status post Rickie-en-Y, gastrojejunostomy, abd ominal pain and vomiting. TECHNIQUE: Limited UGI is attempted utilizing 20oz of Isovue 370. A total of 40 seconds of fluorosco pic time was utilized during procedure and 4 images obtained. COMPARISON: Prior upper GI study August 05, 2024 FINDINGS: The patient had difficulty swallowing contrast and positioning. Patient had elevated breat tanya rating could not be positioned properly. Patient only able to swallow a few episodes of contrast . There is significant motion and overlap. Patient could not drink and refused to drink anymore contr ast due to extreme nausea before accurate assessment of the surgical changes of the stomach could be performed. IMPRESSION: Nondiagnostic study. Consider repeat attempted study if patient symptoms resolve and over all medical condition improves. [facility], , 09/30/2024 12:34 PM
[2024-09-30 12:49] LABS: Potassium 3.6 mmol/L (3.5-5.1)
--- NOTE | 2024-09-30 14:21 | P.PN ---
Subjective Progress Note Date: 09/30/24 SURGICAL PROGRESS NOTE CHIEF COMPLAINT: Recurrent nausea and vomiting HISTORY OF PRESENT ILLNESS: Postop day #6 status post Rickie-en-Y gastrojejunostomy. Per nursing staff patient was having some dry heaves. No spit up. PEG tube to drainage with bile. Afebrile. Mildly tachycardic. WBC 14-13.4. Upper GI nondiagnostic consider repeat attempt if patient symptoms resolve. Patient had difficulty swallowing the contrast. CTA no definite PE small arterial branches in the lungs are limited. Consider developing multifocal pneumonia aspiration. Retained secretions ingested material within the esophagus. Mild free intraperitoneal air due to recent surgery. PHYSICAL EXAM: VITAL SIGNS: Reviewed. GENERAL: Well-developed in no acute distress. ABDOMEN: Soft. Nondistended. Incision site clean dry and intact. PEG tube to drainage with bilious output. NEUROLOGIC: Alert and oriented. Cranial nerves II through XII grossly intact. ASSESSMENT: 1. SMA syndrome 2. Upper GI bleed with bright red blood and coffee-ground emesis. now resolved 3. Intractable nausea and vomiting 4. History of esophageal dysmotility disorder 5. Hiatal hernia 6. Esophagitis 7. Severe protein calorie malnutrition 8. Leukocytosis is reactive from surgery 9. Anemia secondary to malnutrition. PLAN: -Patient unable to complete upper GI -Keep patient n.p.o. -Continue TPN for nutrition support -Continue antibiotics -Continue to monitor -DVT prophylaxis subcu heparin Physician Magnetic Healer note has been reviewed by physician. Signing provider agrees with the documented findings, assessment, and plan of care. Objective - Vital Signs Vital signs: Vital Signs Temp 98.9 F 09/30/24 12:00 Pulse 125 H 09/30/24 12:00 Resp 18 09/30/24 12:00 BP 134/81 09/30/24 12:00 Pulse Ox 97 09/30/24 12:00 FiO2 Intake & Output 09/29/24 09/30/24 09/30/24 18:59 06:59 18:59 Intake Total 1054 10 0 Balance 1054 10 0 Weight 62.5 kg 62.5 kg Intake: IV 20 10 Invasive Line 10 20 10 Intake, IV Titration 1034 Amount Calcium Gluconate 1 gm 1034 Potassium Acetate 46 meq Magnesium Sulfate gm 0.5 gm In Amino Acids 5 %/ Dextrose 20 % 1,000 ml @ 70 mls/hr IV .BY DURATION [facility] Rx#:[id number] Oral 0 Other: Voiding Method Urinal Urinal Urinal # Voids 2 1 # Bowel Movements 0 - Labs CBC & Chem 7: 09/30/24 12:08 09/30/24 12:08 Labs: Abnormal Lab Results - Last 24 Hours (Table) 09/29/24 09/30/24 09/30/24 Range/Units 22:09 00:15 05:49 WBC (4.50-10.00) 10*3/uL RBC (4.40-5.60) 10*6/uL Hgb (13.0-17.0) g/dL Hct (39.6-50.0) % MPV (9.5-12.2) fL Immature Gran # (0.00-0.04) 10*3/uL Neutrophils # (1.80-7.70) 10*3/uL Lymphocytes # (0.90-5.00) 10*3/uL D-Dimer 5.73 H (<0.60) mg/L FEU Chloride (98-107) mmol/L BUN (9-20) mg/dL Glucose (74-99) mg/dL POC Glucose (mg/dL) 142 H 150 H (70-110) mg/dL Phosphorus (2.5-4.5) mg/dL 09/30/24 09/30/24 09/30/24 Range/Units 12:08 12:08 12:20 WBC 13.49 H (4.50-10.00) 10*3/uL RBC 3.26 L (4.40-5.60) 10*6/uL Hgb 10.1 L (13.0-17.0) g/dL Hct 30.0 L (39.6-50.0) % MPV 12.3 H (9.5-12.2) fL Immature Gran # 0.29 H (0.00-0.04) 10*3/uL Neutrophils # 11.75 H (1.80-7.70) 10*3/uL Lymphocytes # 0.59 L (0.90-5.00) 10*3/uL D-Dimer (<0.60) mg/L FEU Chloride 109 H (98-107) mmol/L BUN 21 H (9-20) mg/dL Glucose 141 H (74-99) mg/dL POC Glucose (mg/dL) 156 H (70-110) mg/dL Phosphorus 1.4 L (2.5-4.5) mg/dL
[2024-09-30] MEDS: 1: MVI, ADULT NO.4 WITH VIT K 10 ML, TRACE (CONC-1ML/DOSE) 1 ML, CALCIUM GLUCONATE 1 GM, IV SCH (16:54)
[2024-09-30 16:58] LABS: Glucose,Whole Blood 109 mg/dL (70-110)
[2024-09-30] MEDS: SODIUM PHOSPHATE 30 MMOL in DEXTROSE 5% IN WATER 250 ML IVPB ONE (17:06)
[2024-09-30 18:15] LABS: Glucose,Whole Blood 169 mg/dL (70-110)
[2024-09-30] MEDS: LORazepam 1 MG/0.5 ML VIAL IV PRN (20:56)
[2024-09-30 23:39] LABS: Glucose,Whole Blood 182 mg/dL (70-110)
[2024-10-01 06:33] LABS: Glucose,Whole Blood 193 mg/dL (70-110)
[2024-10-01 07:59] LABS: Basophils # (A) 0.06 10*3/uL (0.00-0.10); Basophils % (A) 0.5 %; Eosinophils # (A) 0.24 10*3/uL (0.04-0.35); Eosinophils % (A) 2.1 %; HCT 26.3 % (39.6-50.0); Lymphocytes % (A) 6.1 %; MCH 30.6 pg (27.0-32.0); MCHC 32.3 g/dL (32.0-37.0); MCV 94.6 fL (80.0-97.0); Mean Platelet Volume 11.7 fL (9.5-12.2); Monocytes # (A) 0.47 10*3/uL (0.20-1.00); Monocytes % (A) 4.1 %; Neutrophils # (A) 9.69 10*3/uL (1.80-7.70); Neutrophils % (A) 84.9 %; Platelet Count 389 10*3/uL (140-440); RBC 2.78 10*6/uL (4.40-5.60); WBC 11.42 10*3/uL (4.50-10.00)
[2024-10-01 08:07] LABS: HGB 8.5 g/dL (13.0-17.0)
[2024-10-01 08:08] LABS: African American GFR (CKD) >90 (>60 ml/min/1.73 sqM); Anion Gap 6 mmol/L; Blood Urea Nitrogen 22 mg/dL (9-20); Calcium 7.9 mg/dL (8.4-10.2); Carbon Dioxide 33 mmol/L (22-30); Chloride 105 mmol/L (98-107); Glucose 150 mg/dL (74-99); Magnesium 1.8 mg/dL (1.6-2.3); Non-African American GFR(CKD) >90 (>60 ml/min/1.73 sqM); Phosphorus 3.4 mg/dL (2.5-4.5); Sodium 144 mmol/L (137-145)
[2024-10-01 08:13] LABS: Potassium 2.6 mmol/L (3.5-5.1)
--- NOTE | 2024-10-01 09:14 | P.PN ---
Subjective This is a pleasant 68 years old male who was recently discharged from this facility about 4 days ago for nausea vomiting and malnutrition status post PEG tube placement by surgery team. Once he been discharged he started having recurrent nausea vomiting again, he vomited 6 times since yesterday with no blood. Associated with epigastric pain and tenderness His troponin was elevated but EKG showing SVT. He has been evaluated by photographic process worker as well during last admission for elevated troponin. Currently denies chest pain or dyspnea. No specific urinary symptoms. No headache dizziness weakness or numbness He is pain mainly in the epigastric area about 9/10 felt like squeezing nonradiating with no precipitating or relieving factors. He states that the pain is similar to last time. He has no bowel movement. He is using the PEG tube at home. He got Zofran 4 mg and is requesting more medicine He is hemodynamically stable and afebrile He has unremarkable CBC, BMP, LFT. WBC is mildly elevated at 10.4 at 11. Lactic acid 4.6 came back to normal at 1.7. Troponin is elevated 0.065. KUB showing nonspecific gas bowel pattern. EKG showed SVT with a rate of [address] depression in V3-V5 Patient lying in bed with no dyspnea or chest pain He is vomiting of blood today. He still has nausea vomiting. He was on Zofran 8 mg we will going to add Reglan IV 5 and then 10 mg. hemoglobin stable at 12.4 with slight improvement. Vital stable. He is not on any blood thinners or aspirin. His on Protonix IV twice daily added today Also we added D5 normal saline Discussed the case with surgery team. CT of the abdomen pelvis with IV contrast is requested. Currently patient denies any abdominal pain or epigastric tenderness. 4/10 No vomiting today, looks tired No abdominal pain or tenderness PEG tube is in place and feeding tube on hold He still getting IV fluids and Zosyn Plan for EGD today with surgery team given his hematemesis yesterday. Hemoglobin was stable yesterday at 11.3 Monitor hemoglobin Continue with Protonix He is getting Reglan [id number] which prevent him from vomiting 09/25 i came to see the pt twice and he was no in his room 09/26 Patient seen and examined at bedside. He is awake and alert ,he is status post Roex-en-Y gastrojejunostomy. Today postop day #1 He still complaining from epigastric pain and mild tenderness with PEG tube placement to gravity. Patient is not getting tube feeding Patient is getting D5W at 100 mL/h, sodium improved 150 down to 146 today Also patient is getting Zosyn WBC 16.1, hemoglobin 8.4 and sodium 146 Is getting Reglan 5 mg as needed will added 10 mg 09/27 Patient remains with GI symptoms. PEG tube to gravity and patient received TPN. Still with nausea and some abdominal/epigastric pain and tenderness although partially improved. No other new complaint. Labs look stable or slightly improving with sodium 147, hemoglobin 13 and WBC down to 11.3 Nephrology consult was obtained Patient started on normal saline at 100 mL/h and D5W was stopped 09/28 Patient states he is the same over the last 2 days he still have some epigastric pain and tenderness which looks the same also he has some nausea and vomiting although he was taking Reglan. Also patient WBC went up to 13.3. Hemoglobin down to 9.3 Sodium 148 potassium 3.1 Replace potassium per protocol Started on D5W at give Ativan x 1 to help with anxiety and with nausea vomiting 09/29 Patient developed significant tachycardia last night and this morning with heart rate going up to 150 and 160/min. EKG showing sinus tachycardia. Heart rate improved down to 100 and blood pressure stable with systolic 120-150 It is thought multifactorial secondary to anxiety dehydration infection electrolyte abnormalities and pain. D-dimer is ordered but the suspicion for PE is low Patient with no chest pain or dyspnea, actually patient this is the first time he told me he feels better since I saw him from admission. He was sitting in chair with slight weakness. He still getting TPN Zosyn. He getting D5W at 50 mL/h but sodium increased to 152 so increase the dose to 125 mL/h Dilaudid added IV Lopressor 5 mg every 8 hours and clonidine patch 0.1 mg Also low potassium and magnesium being replaced. 09/30 Patient is lethargic today with some nausea. He denies epigastric abdominal pain. He is still tachycardic with heart around 120 WBC is 14.5, hemoglobin 9.6 and He remains on D5W at 125 Eliquis dose lowered to 2.5 10/01 Patient today feels improved and better he denies chest pain or dyspnea no epigastric pain or tenderness significant than the other days. PEG tube still in place but not working. Still getting TPN He still tachycardic and blood pressure still slightly on the high side, he got 3 doses of Lopressor 5 mg IV yesterday, we will going to increase his clonidine patch 0.2 up to 0.3. He has CTA of the chest done yesterday for suspicion of PE, no pulm embolism found however there is lung nodule 1.1 cm that he needs follow-up in 3 months for report also there is bilateral groundglass opacities and nodular lesions suspicious for pneumonia versus aspiration pneumonia versus cryptogenic o rganizing pneumonia. Also there is retained material or secretions or food in the lower esophagus which cause more with aspiration pneumonitis. Patient remains on IV Protonix for esophagitis Therefore patient remains on IV Zosyn. Low potassium but replace per protocol today The other thing his hypernatremia significantly improved 122 yesterday and 124 today while he is on D5 W at 75 mL today compared to 125 yesterday Check labs in the morning Review of systems CONSTITUTIONAL: No fever, no malaise, no fatigue. HEENT: No recent visual problems or hearing problems. Denied any sore throat. CARDIOVASCULAR: No orthopnea, PND, no palpitations, no syncope. NEUROLOGICAL: No headaches, no weakness, no numbness. HEMATOLOGICAL: Denies any bleeding or petechiae. GENITOURINARY: Denies any burning micturition, frequency, or urgency. Active Medications Generic Name Dose Route Start Last Admin Trade Name Freq PRN Reason Stop Dose Admin Clonidine HCl 1 patch 10/01/24 09:00 Clonidine 0.3 Mg/24hr Patch TRANSDERM Q7D GIRISH Dextrose/Water 25 ml 09/13/24 12:33 Dextrose 50% Syringe 50 Ml IVP PER PROTOCOL PRN Hypoglycemia Protocol Dextrose/Water 50 ml 09/13/24 12:33 Dextrose 50% Syringe 50 Ml IVP PER PROTOCOL PRN Hypoglycemia Protocol Heparin Sodium (Porcine) 5,000 unit 09/23/24 09:00 10/01/24 09:11 Heparin Sodium,Porcine 5,000 Unit/Ml 1 Ml Vial SQ 5,000 unit Q12HR GIRISH Administration Hydralazine HCl 10 mg 09/29/24 04:29 09/29/24 04:36 Hydralazine Hcl 20 Mg/Ml 1 Ml Vial IVP 10 mg Q6HR PRN Administration Blood Pressure - High Hydromorphone HCl 1 mg 09/09/24 23:22 09/30/24 05:57 Hydromorphone 0.5 Mg/0.5 Ml Syringe IVP 1 mg Q3HR PRN Administration Severe Pain (Scale 7 to 10) Hydromorphone HCl 0.5 mg 09/29/24 09:58 09/30/24 23:40 Hydromorphone 0.5 Mg/0.5 Ml Syringe IVP 0.5 mg Q1HR PRN Administration Pain Fat Emulsion Intravenous 250 250 mls @ 21 mls/hr 09/13/24 14:00 09/28/24 17:36 ml/ IV Solution IV 21 mls/hr Q72H GIRISH Administration Piperacillin Sod/Tazobactam 100 mls @ 25 mls/hr 09/16/24 16:00 10/01/24 09:10 Sod 3.375 gm/ Sodium Chloride IVPB 25 mls/hr Q8H GIRISH Administration Protocol Dextrose/Water 1,000 mls @ 75 mls/hr 09/28/24 10:15 10/01/24 03:02 Dextrose 5%-Water Iv Soln IV 75 mls/hr .[id number] GIRISH Administration Parenteral Vitamin Supplement 1,048 mls @ 80 mls/hr 09/30/24 16:00 10/01/24 06:59 10 ml/ Zinc/Copper/Manganese/ IV 80 mls/hr Selenium 1 ml/ Calcium .BY DURATION GIRISH Administration Gluconate 1 gm/ Potassium Acetate 46 meq/ Magnesium Sulfate 0.5 gm/ Potassium Phosphate 9 mmol/ Amino Acids/ Dextrose Calcium Gluconate 1 gm/ 1,037 mls @ 80 mls/hr 09/30/24 16:00 09/30/24 16:54 Potassium Acetate 46 meq/ IV 80 mls/hr Magnesium Sulfate 0.5 gm/ .BY DURATION GIRISH Administration Potassium Phosphate 9 mmol/ Amino Acids/Dextrose Potassium Chloride 20 meq/ IV 100 mls @ 50 mls/hr 10/01/24 09:00 Solution IVPB 10/01/24 14:59 Q2H GIRISH Protocol Insulin Human Lispro 0 unit 09/26/24 00:15 10/01/24 06:59 Insulin Lispro (Humalog) 100 Unit/Ml 10 Ml Vl SQ 2 unit Q6HR GIRISH Administration Protocol Lidocaine HCl 0.1 ml 09/12/24 11:23 Lidocaine 1% (10mg/Ml) For Iv Start INTRADERMA PER PROTOCOL PRN IV Start Lorazepam 1 mg 09/11/24 12:26 10/01/24 03:02 Lorazepam 1 Mg/0.5 Ml Vial IV 1 mg Q6HR PRN Administration Anxiety Lorazepam 0.5 mg 09/30/24 00:23 09/30/24 20:56 Lorazepam 1 Mg/0.5 Ml Vial IV 0.5 mg Q4HR PRN Administration Anxiety Metoclopramide HCl 10 mg 09/26/24 08:52 09/30/24 23:39 Metoclopramide 5 Mg/Ml 2 Ml Vial IVP 10 mg Q6HR PRN Administration Nausea And Vomiting Metoprolol Tartrate 5 mg 09/29/24 12:29 09/30/24 20:56 Metoprolol Tartrate 5 Mg/5 Ml Vial IVP 5 mg Q8HR PRN Administration Heart Rate - HIGH Miscellaneous Information 1 each 09/11/24 09:50 Potassium Replacement Protocol 1 Each [facility] [place] DAILY PRN Per Protocol Protocol Miscellaneous Information 1 each 09/30/24 00:24 Rx Info: Iv Contrast Was Given 1 Each Mis MISCELLANE 10/02/24 00:24 DAILY PRN Per Protocol Naloxone HCl 0.2 mg 09/09/24 23:22 Naloxone 0.4 Mg/Ml 1 Ml Vial IV Q2M PRN Opioid Reversal Ondansetron HCl 8 mg 09/11/24 11:10 10/01/24 03:02 Ondansetron 4 Mg/2 Ml Vial IVP 8 mg Q6HR PRN Administration Nausea And Vomiting Pantoprazole Sodium 40 mg 09/11/24 09:00 10/01/24 09:11 Pantoprazole 40 Mg/10 Ml Vial IV 40 mg BID GIRISH Administration Objective - Vital Signs Vital signs: Vital Signs Temp 97.1 F L 10/01/24 03:00 Pulse 101 H 10/01/24 03:00 Resp 16 10/01/24 03:00 BP 135/78 10/01/24 03:00 Pulse Ox 99 10/01/24 03:00 FiO2 Intake & Output 09/30/24 10/01/24 10/01/24 18:59 06:59 18:59 Intake Total 0 Output Total 903 Balance 0 -903 Weight 62.5 kg 59 kg Intake: Oral 0 Output: Gastric Drainage 300 Urine 603 Other: Voiding Method Urinal Urinal Diaper Incontinent # Voids 1 3 # Bowel Movements 0 1 - Exam -GENERAL: The patient is alert and oriented x3, not in any acute distress. Well developed, well nourished. Thin built HEENT: Pupils are round and equally reacting to light. EOMI. No scleral icterus. No conjunctival pallor. Normocephalic, atraumatic. No pharyngeal erythema. No thyromegaly. CARDIOVASCULAR: S1 and S2 present. No murmurs, rubs, or gallops. PULMONARY: Chest is clear to auscultation, no wheezing , no crackles. -ABDOMEN: Soft, nontender, nondistended, normoactive bowel sounds. No palpable organomegaly. PEG tube is in place with no Abdominal tenderness or guarding MUSCULOSKELETAL: No joint swelling or deformity. EXTREMITIES: No cyanosis, clubbing, or pedal edema. NEUROLOGICAL: Gross neurological examination did not reveal any focal deficits. SKIN: No rashes. no petechiae. - Labs CBC & Chem 7: 10/01/24 07:43 10/01/24 07:43 Labs: Abnormal Lab Results - Last 24 Hours (Table) 09/30/24 09/30/24 09/30/24 Range/Units 12:08 12:08 12:20 WBC 13.49 H (4.50-10.00) 10*3/uL RBC 3.26 L (4.40-5.60) 10*6/uL Hgb 10.1 L (13.0-17.0) g/dL Hct 30.0 L (39.6-50.0) % MPV 12.3 H (9.5-12.2) fL Immature Gran # 0.29 H (0.00-0.04) 10*3/uL Neutrophils # 11.75 H (1.80-7.70) 10*3/uL Lymphocytes # 0.59 L (0.90-5.00) 10*3/uL Potassium (3.5-5.1) mmol/L Chloride 109 H (98-107) mmol/L Carbon Dioxide (22-30) mmol/L BUN 21 H (9-20) mg/dL Creatinine (0.66-1.25) mg/dL Glucose 141 H (74-99) mg/dL POC Glucose (mg/dL) 156 H (70-110) mg/dL Calcium (8.4-10.2) mg/dL Phosphorus 1.4 L (2.5-4.5) mg/dL 09/30/24 09/30/24 10/01/24 Range/Units 18:13 23:35 06:32 WBC (4.50-10.00) 10*3/uL RBC (4.40-5.60) 10*6/uL Hgb (13.0-17.0) g/dL Hct (39.6-50.0) % MPV (9.5-12.2) fL Immature Gran # (0.00-0.04) 10*3/uL Neutrophils # (1.80-7.70) 10*3/uL Lymphocytes # (0.90-5.00) 10*3/uL Potassium (3.5-5.1) mmol/L Chloride (98-107) mmol/L Carbon Dioxide (22-30) mmol/L BUN (9-20) mg/dL Creatinine (0.66-1.25) mg/dL Glucose (74-99) mg/dL POC Glucose (mg/dL) 169 H 182 H 193 H (70-110) mg/dL Calcium (8.4-10.2) mg/dL Phosphorus (2.5-4.5) mg/dL 10/01/24 10/01/24 Range/Units 07:43 07:43 WBC 11.42 H (4.50-10.00) 10*3/uL RBC 2.78 L (4.40-5.60) 10*6/uL Hgb 8.5 L D (13.0-17.0) g/dL Hct 26.3 L (39.6-50.0) % MPV (9.5-12.2) fL Immature Gran # 0.26 H (0.00-0.04) 10*3/uL Neutrophils # 9.69 H (1.80-7.70) 10*3/uL Lymphocytes # 0.70 L (0.90-5.00) 10*3/uL Potassium 2.6 L* (3.5-5.1) mmol/L Chloride (98-107) mmol/L Carbon Dioxide 33 H (22-30) mmol/L BUN 22 H (9-20) mg/dL Creatinine 0.65 L (0.66-1.25) mg/dL Glucose 150 H (74-99) mg/dL POC Glucose (mg/dL) (70-110) mg/dL Calcium 7.9 L (8.4-10.2) mg/dL Phosphorus (2.5-4.5) mg/dL Assessment and Plan Assessment: SMA syndrome status post gastrojejunostomy and J-tube placement on 09/25 Intractable nausea vomiting and upper GI bleed secondary to above improvement Bilateral aspiration pneumonia suspected Hyponatremia Recurrent nausea vomiting, intractable requiring PEG tube placement during last admission. Epigastric pain and tenderness could be secondary to gastritis, status post Roex-en-Y gastrojejunostomy. S/p J-tube placement Severe calorie protein malnutrition Hypernatremia, improved Sinus tachycardia versus SVT requiring metoprolol clonidine patch, better controlled Elevated troponin could be secondary to SVT related dehydration, evaluated by cardiology during last admission Hypertension Hyperlipidemia Anxiety/depression, not on active issue Distal esophagitis Hiatal hernia seen on recent EKG Plan: Continue with IV fluid per nephrology team. Currently on D5W S/p J-tube placement Continue with Reglan as needed 10 mg Continue with Protonix Start IV Lopressor 5 mg 3 times daily and clonidine patch 0.1 mg and monitor heart rate Continues with J-tube, currently on hold in place to gravity Surgical team consult with patient status post EGD on 09/12. Nutrition consult Resume home medication Labs and medication were reviewed.. Continue same treatment. Continue with symptomatic treatment. Resume home medication. Monitor labs and vitals. DVT and GI prophylaxis. Further recommendations as per clinical course of the patient DVT prophylaxis: no Subcutaneous heparin. Continue with mechanical GI Prophylaxis: Protonix Prognosis is guarded
[2024-10-01] MEDS: POTASSIUM CHLORIDE 20 MEQ in WATER FOR INJECTION 1 100ML.BAG IVPB SCH (09:38)
[2024-10-01] MEDS: cloNIDine 0.3 MG/24HR PATCH TRANSDERM SCH (09:40)
--- NOTE | 2024-10-01 11:46 | P.PN ---
Subjective Patient is seen for follow-up for hypernatremia. He is maintained on TPN. Maintained on D5W as well for hypernatremia. Serum sodium 144 today. Potassium was low at 2.6 Objective - Vital Signs Vital signs: Vital Signs Temp 98.4 F 10/01/24 08:15 Pulse 105 H 10/01/24 08:15 Resp 16 10/01/24 08:15 BP 115/78 10/01/24 08:15 Pulse Ox 98 10/01/24 08:15 FiO2 Intake & Output 09/30/24 10/01/24 10/01/24 18:59 06:59 18:59 Intake Total 0 Output Total 903 Balance 0 -903 Weight 62.5 kg 59 kg Intake: Oral 0 Output: Gastric Drainage 300 Urine 603 Other: Voiding Method Urinal Urinal Urinal Diaper Diaper Incontinent Incontinent # Voids 1 3 # Bowel Movements 0 1 - Exam Patient is awake, comfortable, no acute fracture Examination of the heart S1 and S2 Examination of the lungs bilateral breath sounds are heard Abdomen is soft nontender Examination of lower extremities shows trace edema [facility] exam grossly intact patient is moving all 4 extremities. - Labs CBC & Chem 7: 10/01/24 07:43 10/01/24 07:43 Labs: Abnormal Lab Results - Last 24 Hours (Table) 09/30/24 09/30/24 09/30/24 Range/Units 12:08 12:08 12:20 WBC 13.49 H (4.50-10.00) 10*3/uL RBC 3.26 L (4.40-5.60) 10*6/uL Hgb 10.1 L (13.0-17.0) g/dL Hct 30.0 L (39.6-50.0) % MPV 12.3 H (9.5-12.2) fL Immature Gran # 0.29 H (0.00-0.04) 10*3/uL Neutrophils # 11.75 H (1.80-7.70) 10*3/uL Lymphocytes # 0.59 L (0.90-5.00) 10*3/uL Potassium (3.5-5.1) mmol/L Chloride 109 H (98-107) mmol/L Carbon Dioxide (22-30) mmol/L BUN 21 H (9-20) mg/dL Creatinine (0.66-1.25) mg/dL Glucose 141 H (74-99) mg/dL POC Glucose (mg/dL) 156 H (70-110) mg/dL Calcium (8.4-10.2) mg/dL Phosphorus 1.4 L (2.5-4.5) mg/dL 09/30/24 09/30/24 10/01/24 Range/Units 18:13 23:35 06:32 WBC (4.50-10.00) 10*3/uL RBC (4.40-5.60) 10*6/uL Hgb (13.0-17.0) g/dL Hct (39.6-50.0) % MPV (9.5-12.2) fL Immature Gran # (0.00-0.04) 10*3/uL Neutrophils # (1.80-7.70) 10*3/uL Lymphocytes # (0.90-5.00) 10*3/uL Potassium (3.5-5.1) mmol/L Chloride (98-107) mmol/L Carbon Dioxide (22-30) mmol/L BUN (9-20) mg/dL Creatinine (0.66-1.25) mg/dL Glucose (74-99) mg/dL POC Glucose (mg/dL) 169 H 182 H 193 H (70-110) mg/dL Calcium (8.4-10.2) mg/dL Phosphorus (2.5-4.5) mg/dL 10/01/24 10/01/24 Range/Units 07:43 07:43 WBC 11.42 H (4.50-10.00) 10*3/uL RBC 2.78 L (4.40-5.60) 10*6/uL Hgb 8.5 L D (13.0-17.0) g/dL Hct 26.3 L (39.6-50.0) % MPV (9.5-12.2) fL Immature Gran # 0.26 H (0.00-0.04) 10*3/uL Neutrophils # 9.69 H (1.80-7.70) 10*3/uL Lymphocytes # 0.70 L (0.90-5.00) 10*3/uL Potassium 2.6 L* (3.5-5.1) mmol/L Chloride (98-107) mmol/L Carbon Dioxide 33 H (22-30) mmol/L BUN 22 H (9-20) mg/dL Creatinine 0.65 L (0.66-1.25) mg/dL Glucose 150 H (74-99) mg/dL POC Glucose (mg/dL) (70-110) mg/dL Calcium 7.9 L (8.4-10.2) mg/dL Phosphorus (2.5-4.5) mg/dL Assessment and Plan Assessment: 1. Hypernatremia from lack of oral water intake. Sodium level 144 today 2. SMA syndrome. Surgery following. 3. Status post J-tube placement September 25, 2024. 4. Hypokalemia from poor intake. Being replaced. Plan: Continue D5 water, decrease to 70 cc an hour. No sodium in TPN. Repeat labs in a.m.
[2024-10-01 12:10] LABS: Glucose,Whole Blood 189 mg/dL (70-110)
--- NOTE | 2024-10-01 14:11 | P.PN ---
Subjective Progress Note Date: 10/01/24 SURGICAL PROGRESS NOTE CHIEF COMPLAINT: Recurrent nausea and vomiting HISTORY OF PRESENT ILLNESS: Postop day #7 status post Rickie-en-Y gastrojejunostomy. Per nursing staff no episodes of spitting up. Patient does report that he is still spitting up. PEG tube with 300 mL bilious drainage. Patient unable to complete upper GI study yesterday due to not being able to drink the contrast. PHYSICAL EXAM: VITAL SIGNS: Reviewed. GENERAL: Well-developed in no acute distress. ABDOMEN: Soft. Nondistended. Incision site clean dry and intact. PEG tube to drainage with bilious output. NEUROLOGIC: Alert and oriented. Cranial nerves II through XII grossly intact. ASSESSMENT: 1. SMA syndrome 2. Upper GI bleed with bright red blood and coffee-ground emesis. now resolved 3. Intractable nausea and vomiting 4. History of esophageal dysmotility disorder 5. Hiatal hernia 6. Esophagitis 7. Severe protein calorie malnutrition 8. Leukocytosis is reactive from surgery 9. Anemia secondary to malnutrition. PLAN: -Patient unable to complete upper GI -Keep patient n.p.o. -Continue TPN for nutrition support -Continue antibiotics -Continue to monitor -DVT prophylaxis subcu heparin Physician Dielectric Embossing Machine Operator note has been reviewed by physician. Signing provider agrees with the documented findings, assessment, and plan of care. Objective - Vital Signs Vital signs: Vital Signs Temp 98 F 10/01/24 11:55 Pulse 90 10/01/24 11:55 Resp 16 10/01/24 11:55 BP 108/76 10/01/24 11:55 Pulse Ox 97 10/01/24 11:55 FiO2 Intake & Output 09/30/24 10/01/24 10/01/24 18:59 06:59 18:59 Intake Total 0 Output Total 903 Balance 0 -903 Weight 62.5 kg 59 kg Intake: Oral 0 Output: Gastric Drainage 300 Urine 603 Other: Voiding Method Urinal Urinal Urinal Diaper Diaper Incontinent Incontinent # Voids 1 3 # Bowel Movements 0 1 - Labs CBC & Chem 7: 10/01/24 07:43 10/01/24 07:43 Labs: Abnormal Lab Results - Last 24 Hours (Table) 09/30/24 09/30/24 10/01/24 Range/Units 18:13 23:35 06:32 WBC (4.50-10.00) 10*3/uL RBC (4.40-5.60) 10*6/uL Hgb (13.0-17.0) g/dL Hct (39.6-50.0) % Immature Gran # (0.00-0.04) 10*3/uL Neutrophils # (1.80-7.70) 10*3/uL Lymphocytes # (0.90-5.00) 10*3/uL Potassium (3.5-5.1) mmol/L Carbon Dioxide (22-30) mmol/L BUN (9-20) mg/dL Creatinine (0.66-1.25) mg/dL Glucose (74-99) mg/dL POC Glucose (mg/dL) 169 H 182 H 193 H (70-110) mg/dL Calcium (8.4-10.2) mg/dL 10/01/24 10/01/24 10/01/24 Range/Units 07:43 07:43 12:08 WBC 11.42 H (4.50-10.00) 10*3/uL RBC 2.78 L (4.40-5.60) 10*6/uL Hgb 8.5 L D (13.0-17.0) g/dL Hct 26.3 L (39.6-50.0) % Immature Gran # 0.26 H (0.00-0.04) 10*3/uL Neutrophils # 9.69 H (1.80-7.70) 10*3/uL Lymphocytes # 0.70 L (0.90-5.00) 10*3/uL Potassium 2.6 L* (3.5-5.1) mmol/L Carbon Dioxide 33 H (22-30) mmol/L BUN 22 H (9-20) mg/dL Creatinine 0.65 L (0.66-1.25) mg/dL Glucose 150 H (74-99) mg/dL POC Glucose (mg/dL) 189 H (70-110) mg/dL Calcium 7.9 L (8.4-10.2) mg/dL
[2024-10-01 18:12] LABS: Glucose,Whole Blood 212 mg/dL (70-110)
[2024-10-01] MEDS ORDERED: Magnesium Replacement Protocol 1 EACH MISC MISCELLANE PRN (22:38)
[2024-10-01 23:16] LABS: HCT 27.5 % (39.6-50.0); HGB 9.1 g/dL (13.0-17.0); MCHC 33.1 g/dL (32.0-37.0); MCV 93.5 fL (80.0-97.0); Mean Platelet Volume 12.4 fL (9.5-12.2); Platelet Count 276 10*3/uL (140-440); RBC 2.94 10*6/uL (4.40-5.60); WBC 15.09 10*3/uL (4.50-10.00)
[2024-10-01 23:32] LABS: Magnesium 1.7 mg/dL (1.6-2.3); Potassium 4.5 mmol/L (3.5-5.1)
[2024-10-02 00:27] LABS: Glucose,Whole Blood 171 mg/dL (70-110)
[2024-10-02] MEDS: MAGNESIUM SULFATE-D5W PMX 1 GM in DEXTROSE/WATER 1 100ML.BAG IVPB ONE (01:03)
[2024-10-02 06:31] LABS: Glucose,Whole Blood 210 mg/dL (70-110)
[2024-10-02 07:52] LABS: African American GFR (CKD) >90 (>60 ml/min/1.73 sqM); Albumin 2.1 g/dL (3.5-5.0); Anion Gap 7 mmol/L; Blood Urea Nitrogen 21 mg/dL (9-20); Carbon Dioxide 28 mmol/L (22-30); Chloride 103 mmol/L (98-107); Glucose 180 mg/dL (74-99); Non-African American GFR(CKD) >90 (>60 ml/min/1.73 sqM); Phosphorus 2.4 mg/dL (2.5-4.5); Potassium 3.3 mmol/L (3.5-5.1); Sodium 138 mmol/L (137-145)
--- NOTE | 2024-10-02 10:25 | P.PN ---
Subjective This is a pleasant 68 years old male who was recently discharged from this facility about 4 days ago for nausea vomiting and malnutrition status post PEG tube placement by surgery team. Once he been discharged he started having recurrent nausea vomiting again, he vomited 6 times since yesterday with no blood. Associated with epigastric pain and tenderness His troponin was elevated but EKG showing SVT. He has been evaluated by chef french as well during last admission for elevated troponin. Currently denies chest pain or dyspnea. No specific urinary symptoms. No headache dizziness weakness or numbness He is pain mainly in the epigastric area about 9/10 felt like squeezing nonradiating with no precipitating or relieving factors. He states that the pain is similar to last time. He has no bowel movement. He is using the PEG tube at home. He got Zofran 4 mg and is requesting more medicine He is hemodynamically stable and afebrile He has unremarkable CBC, BMP, LFT. WBC is mildly elevated at 10.4 at 11. Lactic acid 4.6 came back to normal at 1.7. Troponin is elevated 0.065. KUB showing nonspecific gas bowel pattern. EKG showed SVT with a rate of [address] depression in V3-V5 Patient lying in bed with no dyspnea or chest pain He is vomiting of blood today. He still has nausea vomiting. He was on Zofran 8 mg we will going to add Reglan IV 5 and then 10 mg. hemoglobin stable at 12.4 with slight improvement. Vital stable. He is not on any blood thinners or aspirin. His on Protonix IV twice daily added today Also we added D5 normal saline Discussed the case with surgery team. CT of the abdomen pelvis with IV contrast is requested. Currently patient denies any abdominal pain or epigastric tenderness. 4/10 No vomiting today, looks tired No abdominal pain or tenderness PEG tube is in place and feeding tube on hold He still getting IV fluids and Zosyn Plan for EGD today with surgery team given his hematemesis yesterday. Hemoglobin was stable yesterday at 11.3 Monitor hemoglobin Continue with Protonix He is getting Reglan [id number] which prevent him from vomiting 09/25 i came to see the pt twice and he was no in his room 09/26 Patient seen and examined at bedside. He is awake and alert ,he is status post Roex-en-Y gastrojejunostomy. Today postop day #1 He still complaining from epigastric pain and mild tenderness with PEG tube placement to gravity. Patient is not getting tube feeding Patient is getting D5W at 100 mL/h, sodium improved 150 down to 146 today Also patient is getting Zosyn WBC 16.1, hemoglobin 8.4 and sodium 146 Is getting Reglan 5 mg as needed will added 10 mg 09/27 Patient remains with GI symptoms. PEG tube to gravity and patient received TPN. Still with nausea and some abdominal/epigastric pain and tenderness although partially improved. No other new complaint. Labs look stable or slightly improving with sodium 147, hemoglobin 13 and WBC down to 11.3 Nephrology consult was obtained Patient started on normal saline at 100 mL/h and D5W was stopped 09/28 Patient states he is the same over the last 2 days he still have some epigastric pain and tenderness which looks the same also he has some nausea and vomiting although he was taking Reglan. Also patient WBC went up to 13.3. Hemoglobin down to 9.3 Sodium 148 potassium 3.1 Replace potassium per protocol Started on D5W at give Ativan x 1 to help with anxiety and with nausea vomiting 09/29 Patient developed significant tachycardia last night and this morning with heart rate going up to 150 and 160/min. EKG showing sinus tachycardia. Heart rate improved down to 100 and blood pressure stable with systolic 120-150 It is thought multifactorial secondary to anxiety dehydration infection electrolyte abnormalities and pain. D-dimer is ordered but the suspicion for PE is low Patient with no chest pain or dyspnea, actually patient this is the first time he told me he feels better since I saw him from admission. He was sitting in chair with slight weakness. He still getting TPN Zosyn. He getting D5W at 50 mL/h but sodium increased to 152 so increase the dose to 125 mL/h Dilaudid added IV Lopressor 5 mg every 8 hours and clonidine patch 0.1 mg Also low potassium and magnesium being replaced. 09/30 Patient is lethargic today with some nausea. He denies epigastric abdominal pain. He is still tachycardic with heart around 120 WBC is 14.5, hemoglobin 9.6 and He remains on D5W at 125 Eliquis dose lowered to 2.5 10/01 Patient today feels improved and better he denies chest pain or dyspnea no epigastric pain or tenderness significant than the other days. PEG tube still in place but not working. Still getting TPN He still tachycardic and blood pressure still slightly on the high side, he got 3 doses of Lopressor 5 mg IV yesterday, we will going to increase his clonidine patch 0.2 up to 0.3. He has CTA of the chest done yesterday for suspicion of PE, no pulm embolism found however there is lung nodule 1.1 cm that he needs follow-up in 3 months for report also there is bilateral groundglass opacities and nodular lesions suspicious for pneumonia versus aspiration pneumonia versus cryptogenic o rganizing pneumonia. Also there is retained material or secretions or food in the lower esophagus which cause more with aspiration pneumonitis. Patient remains on IV Protonix for esophagitis Therefore patient remains on IV Zosyn. Low potassium but replace per protocol today The other thing his hypernatremia significantly improved 122 yesterday and 124 today while he is on D5 W at 75 mL today compared to 125 yesterday Check labs in the morning 10/02 Today patient feels tired weak and sweaty Blood pressure is low normal, became slightly tachycardic 115. His heart rate is getting controlled with the clonidine patch 0.3 mg and now requiring only once daily dose of IV Lopressor 5 mg over the last 2 days. His albumin is 2.0. His sodium 138 he remains on D5W. He is still getting TPN Will give IV albumin 25 % x 1 Hemoglobin 9.1 Objective - Vital Signs Vital signs: Vital Signs Temp 98.5 F 10/02/24 07:54 Pulse 115 H 10/02/24 08:00 Resp 20 10/02/24 07:54 BP 116/76 10/02/24 07:54 Pulse Ox 97 10/02/24 07:54 FiO2 Intake & Output 10/01/24 10/02/24 10/02/24 18:59 06:59 18:59 Intake Total 1036 Balance 1036 Weight 59 kg Intake: Intake, IV Titration 1036 Amount Mvi, Adult No.4 with Vit 1036 K 10 ml Trace (Conc-1Ml/ Dose) 1 ml Calcium Gluconate 1 gm Potassium Acetate 46 meq Magnesium Sulfate gm 0.5 gm Potassium Phosphate 9 mmol In Amino Acids 5 %/ Dextrose 20 % 1,000 ml @ 80 mls/hr IV .BY DURATION [facility] Rx#:[id number] Other: Voiding Method Urinal Urinal Urinal Diaper Diaper Diaper Incontinent Incontinent Incontinent # Voids 3 - Exam -GENERAL: The patient is alert and oriented x3, not in any acute distress. Well developed, well nourished. Thin built HEENT: Pupils are round and equally reacting to light. EOMI. No scleral icterus. No conjunctival pallor. Normocephalic, atraumatic. No pharyngeal erythema. No thyromegaly. CARDIOVASCULAR: S1 and S2 present. No murmurs, rubs, or gallops. PULMONARY: Chest is clear to auscultation, no wheezing , no crackles. -ABDOMEN: Soft, nontender, nondistended, normoactive bowel sounds. No palpable organomegaly. PEG tube is in place with no Abdominal tenderness or guarding MUSCULOSKELETAL: No joint swelling or deformity. EXTREMITIES: No cyanosis, clubbing, or pedal edema. NEUROLOGICAL: Gross neurological examination did not reveal any focal deficits. SKIN: No rashes. no petechiae. - Labs CBC & Chem 7: 10/01/24 22:53 10/02/24 07:06 Labs: Abnormal Lab Results - Last 24 Hours (Table) 10/01/24 10/01/24 10/01/24 Range/Units 12:08 18:10 22:53 WBC 15.09 H (4.50-10.00) 10*3/uL RBC 2.94 L (4.40-5.60) 10*6/uL Hgb 9.1 L (13.0-17.0) g/dL Hct 27.5 L (39.6-50.0) % MPV 12.4 H (9.5-12.2) fL Potassium (3.5-5.1) mmol/L BUN (9-20) mg/dL Creatinine (0.66-1.25) mg/dL Glucose (74-99) mg/dL POC Glucose (mg/dL) 189 H 212 H (70-110) mg/dL Calcium (8.4-10.2) mg/dL Phosphorus (2.5-4.5) mg/dL Albumin (3.5-5.0) g/dL 10/02/24 10/02/24 10/02/24 Range/Units 00:26 06:29 07:06 WBC (4.50-10.00) 10*3/uL RBC (4.40-5.60) 10*6/uL Hgb (13.0-17.0) g/dL Hct (39.6-50.0) % MPV (9.5-12.2) fL Potassium 3.3 L (3.5-5.1) mmol/L BUN 21 H (9-20) mg/dL Creatinine 0.62 L (0.66-1.25) mg/dL Glucose 180 H (74-99) mg/dL POC Glucose (mg/dL) 171 H 210 H (70-110) mg/dL Calcium 8.0 L (8.4-10.2) mg/dL Phosphorus 2.4 L (2.5-4.5) mg/dL Albumin 2.1 L (3.5-5.0) g/dL Assessment and Plan Assessment: SMA syndrome status post gastrojejunostomy and J-tube placement on 09/25 Intractable nausea vomiting and upper GI bleed secondary to above improvement Bilateral aspiration pneumonia suspected Hyponatremia Recurrent nausea vomiting, intractable requiring PEG tube placement during last admission. Epigastric pain and tenderness could be secondary to gastritis, status post Roex-en-Y gastrojejunostomy. S/p J-tube placement Severe calorie protein malnutrition Hypernatremia, improved Sinus tachycardia versus SVT requiring metoprolol clonidine patch, better controlled Elevated troponin could be secondary to SVT related dehydration, evaluated by cardiology during last admission Hypertension Hyperlipidemia Anxiety/depression, not on active issue Distal esophagitis Hiatal hernia seen on recent EKG Plan: Continue with IV fluid per nephrology team. Currently on D5W S/p J-tube placement Continue with Reglan as needed 10 mg Continue with Protonix Start IV Lopressor 5 mg 3 times daily and clonidine patch 0.1 mg and monitor heart rate Continues with J-tube, currently on hold in place to gravity Surgical team consult with patient status post EGD on 09/12. Nutrition consult Resume home medication Labs and medication were reviewed.. Continue same treatment. Continue with symptomatic treatment. Resume home medication. Monitor labs and vitals. DVT and GI prophylaxis. Further recommendations as per clinical course of the patient DVT prophylaxis: no Subcutaneous heparin. Continue with mechanical GI Prophylaxis: Protonix Prognosis is guarded
[2024-10-02 11:52] LABS: Glucose,Whole Blood 155 mg/dL (70-110)
[2024-10-02] MEDS: ALBUMIN HUMAN 25% 50 ML in EMPTY BAG 1 BAG IVPB SCH (11:58)
--- NOTE | 2024-10-02 12:07 | P.PN ---
Subjective Patient is seen for follow-up for hypernatremia. He is maintained on TPN. Maintained on D5W as well for hypernatremia. Serum sodium 138 today. Potassium was low at 3.3 No complaints. Objective - Vital Signs Vital signs: Vital Signs Temp 98.4 F 10/02/24 12:00 Pulse 94 10/02/24 12:04 Resp 18 10/02/24 12:00 BP 109/71 10/02/24 12:00 Pulse Ox 94 L 10/02/24 12:00 FiO2 Intake & Output 10/01/24 10/02/24 10/02/24 18:59 06:59 18:59 Intake Total 1036 Balance 1036 Weight 59 kg Intake: Intake, IV Titration 1036 Amount Mvi, Adult No.4 with Vit 1036 K 10 ml Trace (Conc-1Ml/ Dose) 1 ml Calcium Gluconate 1 gm Potassium Acetate 46 meq Magnesium Sulfate gm 0.5 gm Potassium Phosphate 9 mmol In Amino Acids 5 %/ Dextrose 20 % 1,000 ml @ 80 mls/hr IV .BY DURATION [facility] Rx#:[id number] Other: Voiding Method Urinal Urinal Urinal Diaper Diaper Diaper Incontinent Incontinent Incontinent # Voids 3 - Exam Patient is awake, comfortable, no acute fracture Examination of the heart S1 and S2 Examination of the lungs bilateral breath sounds are heard Abdomen is soft nontender Examination of lower extremities shows trace edema SURFACE HYDROLOGIST exam grossly intact patient is moving all 4 extremities. - Labs CBC & Chem 7: 10/01/24 22:53 10/02/24 07:06 Labs: Abnormal Lab Results - Last 24 Hours (Table) 10/01/24 10/01/24 10/01/24 Range/Units 12:08 18:10 22:53 WBC 15.09 H (4.50-10.00) 10*3/uL RBC 2.94 L (4.40-5.60) 10*6/uL Hgb 9.1 L (13.0-17.0) g/dL Hct 27.5 L (39.6-50.0) % MPV 12.4 H (9.5-12.2) fL Potassium (3.5-5.1) mmol/L BUN (9-20) mg/dL Creatinine (0.66-1.25) mg/dL Glucose (74-99) mg/dL POC Glucose (mg/dL) 189 H 212 H (70-110) mg/dL Calcium (8.4-10.2) mg/dL Phosphorus (2.5-4.5) mg/dL Albumin (3.5-5.0) g/dL 10/02/24 10/02/24 10/02/24 Range/Units 00:26 06:29 07:06 WBC (4.50-10.00) 10*3/uL RBC (4.40-5.60) 10*6/uL Hgb (13.0-17.0) g/dL Hct (39.6-50.0) % MPV (9.5-12.2) fL Potassium 3.3 L (3.5-5.1) mmol/L BUN 21 H (9-20) mg/dL Creatinine 0.62 L (0.66-1.25) mg/dL Glucose 180 H (74-99) mg/dL POC Glucose (mg/dL) 171 H 210 H (70-110) mg/dL Calcium 8.0 L (8.4-10.2) mg/dL Phosphorus 2.4 L (2.5-4.5) mg/dL Albumin 2.1 L (3.5-5.0) g/dL 10/02/24 Range/Units 11:51 WBC (4.50-10.00) 10*3/uL RBC (4.40-5.60) 10*6/uL Hgb (13.0-17.0) g/dL Hct (39.6-50.0) % MPV (9.5-12.2) fL Potassium (3.5-5.1) mmol/L BUN (9-20) mg/dL Creatinine (0.66-1.25) mg/dL Glucose (74-99) mg/dL POC Glucose (mg/dL) 155 H (70-110) mg/dL Calcium (8.4-10.2) mg/dL Phosphorus (2.5-4.5) mg/dL Albumin (3.5-5.0) g/dL Assessment and Plan Assessment: 1. Hypernatremia from lack of oral water intake. Sodium level 138 today 2. SMA syndrome. Surgery following. 3. Status post J-tube placement September 25, 2024. 4. Hypokalemia from poor intake. Being replaced. Plan: Continue D5 water, decrease to 50 cc an hour. No sodium in TPN. Repeat labs in a.m.
--- NOTE | 2024-10-02 13:51 | P.PN ---
Subjective Progress Note Date: 10/02/24 SURGICAL PROGRESS NOTE CHIEF COMPLAINT: Recurrent nausea and vomiting HISTORY OF PRESENT ILLNESS: Postop day #8 status post Rickie-en-Y gastrojejunostomy. Patient reports pain is controlled. Denies any nausea vomiting. Denies flatus. Last bowel movement yesterday. Afebrile. Potassium 3.3 PHYSICAL EXAM: VITAL SIGNS: Reviewed. GENERAL: Well-developed in no acute distress. ABDOMEN: Soft. Nondistended. Incision site clean dry and intact. PEG tube to drainage with bilious output. NEUROLOGIC: Alert and oriented. Cranial nerves II through XII grossly intact. ASSESSMENT: 1. SMA syndrome 2. Upper GI bleed with bright red blood and coffee-ground emesis. now resolved 3. Intractable nausea and vomiting 4. History of esophageal dysmotility disorder 5. Hiatal hernia 6. Esophagitis 7. Severe protein calorie malnutrition 8. Leukocytosis is reactive from surgery 9. Anemia secondary to malnutrition. PLAN: -May attempt trial of clear liquids on Monday if patient shows improvement -Keep patient n.p.o. -keep peg tube to drainage -Continue TPN for nutrition support -Pharmacy to replace potassium -Continue antibiotics -Continue to monitor -DVT prophylaxis subcu heparin Physician Event Staff Member note has been reviewed by physician. Signing provider agrees with the documented findings, assessment, and plan of care. Objective - Vital Signs Vital signs: Vital Signs Temp 98.4 F 10/02/24 12:00 Pulse 94 10/02/24 12:04 Resp 18 10/02/24 12:00 BP 109/71 10/02/24 12:00 Pulse Ox 94 L 10/02/24 12:00 FiO2 Intake & Output 10/01/24 10/02/24 10/02/24 18:59 06:59 18:59 Intake Total 1036 Balance 1036 Weight 59 kg Intake: Intake, IV Titration 1036 Amount Mvi, Adult No.4 with Vit 1036 K 10 ml Trace (Conc-1Ml/ Dose) 1 ml Calcium Gluconate 1 gm Potassium Acetate 46 meq Magnesium Sulfate gm 0.5 gm Potassium Phosphate 9 mmol In Amino Acids 5 %/ Dextrose 20 % 1,000 ml @ 80 mls/hr IV .BY DURATION [facility] Rx#:[id number] Other: Voiding Method Urinal Urinal Urinal Diaper Diaper Diaper Incontinent Incontinent Incontinent # Voids 3 - Labs CBC & Chem 7: 10/01/24 22:53 10/02/24 07:06 Labs: Abnormal Lab Results - Last 24 Hours (Table) 10/01/24 10/01/24 10/02/24 Range/Units 18:10 22:53 00:26 WBC 15.09 H (4.50-10.00) 10*3/uL RBC 2.94 L (4.40-5.60) 10*6/uL Hgb 9.1 L (13.0-17.0) g/dL Hct 27.5 L (39.6-50.0) % MPV 12.4 H (9.5-12.2) fL Potassium (3.5-5.1) mmol/L BUN (9-20) mg/dL Creatinine (0.66-1.25) mg/dL Glucose (74-99) mg/dL POC Glucose (mg/dL) 212 H 171 H (70-110) mg/dL Calcium (8.4-10.2) mg/dL Phosphorus (2.5-4.5) mg/dL Albumin (3.5-5.0) g/dL 10/02/24 10/02/24 10/02/24 Range/Units 06:29 07:06 11:51 WBC (4.50-10.00) 10*3/uL RBC (4.40-5.60) 10*6/uL Hgb (13.0-17.0) g/dL Hct (39.6-50.0) % MPV (9.5-12.2) fL Potassium 3.3 L (3.5-5.1) mmol/L BUN 21 H (9-20) mg/dL Creatinine 0.62 L (0.66-1.25) mg/dL Glucose 180 H (74-99) mg/dL POC Glucose (mg/dL) 210 H 155 H (70-110) mg/dL Calcium 8.0 L (8.4-10.2) mg/dL Phosphorus 2.4 L (2.5-4.5) mg/dL Albumin 2.1 L (3.5-5.0) g/dL
[2024-10-02 18:03] LABS: Glucose,Whole Blood 156 mg/dL (70-110)
[2024-10-02] MEDS: POTASSIUM CHLORIDE 20 MEQ in WATER FOR INJECTION 1 100ML.BAG IVPB SCH (21:35)
[2024-10-02] MEDS: 1: MVI, ADULT NO.4 WITH VIT K 10 ML, TRACE (CONC-1ML/DOSE) 1 ML, CALCIUM GLUCONATE 1 GM, IV SCH (22:17)
[2024-10-02 23:56] LABS: Glucose,Whole Blood 200 mg/dL (70-110)
--- NOTE | 2024-10-03 01:41 | CT ---
EXAM: CT Abdomen and Pelvis Without Intravenous Contrast CLINICAL HISTORY: ITS.REASON CT Reason: bleeding TECHNIQUE: Axial computed tomography images of the abdomen and pelvis without intravenous contrast. This CT exam was performed using one or more of the following dose reduction techniques: automated exposure control, adjustment of the mA and/or kV according to patient size, and/or use of iterative reconstruction technique. COMPARISON: 09/23/2024 FINDINGS: Artifacts: Motion artifact limits study. Lung bases: Some small nodular opacities in the lung bases. Pleural space: Small right pleural effusion with associated atelectasis. Mediastinum: Small hiatal hernia. ABDOMEN: Liver: No acute findings. Gallbladder and bile ducts: Cholecystectomy. No ductal dilation. Pancreas: Unremarkable. No ductal dilation. Spleen: Unremarkable. No splenomegaly. Adrenals: Unremarkable. No mass. Kidneys and ureters: Unremarkable. No obstructing stones. No hydronephrosis. Stomach and bowel: Some gastric fold thickening. There is a ventral abdominal wall hernia containing nondilated small bowel. Postsurgical changes in the stomach. Postsurgical changes in the bowel. PELVIS: Appendix: No findings to suggest acute appendicitis. Bladder: Bladder diverticulum. No stones. Reproductive: Unremarkable as visualized. ABDOMEN and PELVIS: Intraperitoneal space: Small amount of free fluid in the abdomen and pelvis. Minimal free intraperitoneal air compatible with the recent surgery. Bones/joints: Osteopenia. Degenerative changes in the spine. No acute fracture. No dislocation. Soft tissues: Postsurgical changes in the ventral abdomen with skin francesco. Diastasis recti. Vasculature: Unremarkable. No abdominal aortic aneurysm. Lymph nodes: Unremarkable. No enlarged lymph nodes. Tubes, lines and devices: Gastrostomy tube within the gastric body, similar in appearance compared to the prior. IMPRESSION: 1. Some small nodular opacities in the lung bases. Findings may represent infection. 2. Small amount of free fluid in the abdomen and pelvis. 3. Some gastric fold thickening. Gastritis is in the differential. 4. There is a ventral abdominal wall hernia containing nondilated small bowel. 5. Small right pleural effusion with associated atelectasis.
[2024-10-03 01:47] LABS: MCH 31.1 pg (27.0-32.0); MCHC 32.4 g/dL (32.0-37.0); MCV 95.9 fL (80.0-97.0); Mean Platelet Volume 12.7 fL (9.5-12.2); Platelet Count 372 10*3/uL (140-440); RBC 2.19 10*6/uL (4.40-5.60); RDW 18.8 % (11.5-14.5); WBC 19.42 10*3/uL (4.50-10.00)
[2024-10-03 01:55] LABS: HGB 6.8 g/dL (13.0-17.0)
[2024-10-03] MEDS ORDERED: FUROSEMIDE 10 MG/ML 2 ML VIAL IV PRN (02:18)
[2024-10-03 03:04] LABS: MCH 31.7 pg (27.0-32.0); MCHC 32.6 g/dL (32.0-37.0); Mean Platelet Volume 11.9 fL (9.5-12.2); Platelet Count 317 10*3/uL (140-440); RBC 1.99 10*6/uL (4.40-5.60); RDW 18.9 % (11.5-14.5); WBC 19.08 10*3/uL (4.50-10.00)
[2024-10-03 03:11] LABS: HGB 6.3 g/dL (13.0-17.0)
[2024-10-03 03:12] LABS: HCT 19.3 % (39.6-50.0)
[2024-10-03 03:23] LABS: African American GFR (CKD) >90 (>60 ml/min/1.73 sqM); Anion Gap 6 mmol/L; Blood Urea Nitrogen 27 mg/dL (9-20); Calcium 7.7 mg/dL (8.4-10.2); Carbon Dioxide 27 mmol/L (22-30); Chloride 102 mmol/L (98-107); Glucose 153 mg/dL (74-99); Magnesium 1.8 mg/dL (1.6-2.3); Non-African American GFR(CKD) 90 (>60 ml/min/1.73 sqM); Phosphorus 1.5 mg/dL (2.5-4.5); Potassium 4.1 mmol/L (3.5-5.1); Sodium 135 mmol/L (137-145)
[2024-10-03 04:33] LABS: Lymphocytes # (M) 1.14 k/uL (1.0-4.8); Metamyelocytes # (M) 0.19 k/uL (0); Metamyelocytes % 1 %; Monocytes # (M) 0.19 k/uL (0-1.0); Myelocytes # (M) 0.19 k/uL (0); Myelocytes % 1 %; Neutrophils # (M) 17.55 k/uL (1.3-7.7); Neutrophils % (M) 92 %; Nucleated Red Blood Cells 0 /100 WBC (0-0); Polychromasia Present; Total Cells Counted 200
[2024-10-03 06:03] LABS: Glucose,Whole Blood 178 mg/dL (70-110)
--- NOTE | 2024-10-03 07:59 | P.PN ---
Progress Note - Text Progress Note Date: 10/03/24 I was called by the nursing staff around 615 this morning. The patient had hypotension overnight and it was leaking serosanguineous fluid from his abdominal incision. This apparently started after the patient was retching last night. The patient was examined's morning. The patient has rm colored serosanguineous fluid leaking from the incision. There appears to be evidence of a fascial dehiscence in the upper abdominal incision. The patient is receiving blood products currently. The patient will be taken emergently to the OR for repair of fascial dehiscence.
[2024-10-03] MEDS: IV FLUID CONTINUATION 1,000 ML IV ONE (08:15)
[2024-10-03 08:44] LABS: Glucose,Whole Blood 149 mg/dL (70-110)
[2024-10-03] MEDS ORDERED: PHENYLEPHRINE 10 MG/ML VIAL ONE (09:15)
[2024-10-03] MEDS ORDERED: GLYCOPYRROLATE 0.2 MG/ML 2 ML VIAL ONE (09:15)
[2024-10-03] MEDS ORDERED: SUCCINYLCHOLINE CHLORIDE 200 MG/10 ML VIAL IV ONE (09:15)
[2024-10-03] MEDS ORDERED: NEOSTIGMINE 1 MG/ML 10 ML VIAL ONE (09:15)
[2024-10-03] MEDS ORDERED: ROCURONIUM 10 MG/ML (5 ML VIAL) IV ONE (09:15)
[2024-10-03] MEDS ORDERED: ETOMIDATE 2 MG/ML 10 ML VIAL ONE (09:15)
[2024-10-03] MEDS: fentaNYL (PF) 50 MCG/ML 2 ML AMP IVP PRN (10:56)
--- NOTE | 2024-10-03 11:17 | P.OP ---
Date of Procedure: 10/03/24 Preoperative Diagnosis: Fascial dehiscence Postoperative Diagnosis: Fascial dehiscence Procedure(s) Performed: Repair of fascial dehiscence Anesthesia: CHANCE Surgeon: Rickie Pavon Pathology: none sent Condition: critical Disposition: ICU Operative Findings: Fascial dehiscence with intraperitoneal blood clot related to previous bleeding from abdominal wall. No active bleeding seen Description of Procedure: The patient was placed on the operative table in the supine position. He received general endotracheal tube anesthesia. His abdomen was prepped and draped you sterile fashion. The francesco were removed. There was evidence of a fascial dehiscence of the upper suture. The suture appeared to have torn through the abdominal wall. There was approximately 100 cc of blood clot in the peritoneal cavity. This appeared to have come from the abdominal wall. There was no evidence of any intraperitoneal bleed. The abdomen was irrigated with saline. Several clots were removed. At this point the gastrojejunostomy inspected. This appeared to be normal. The jejunojejunostomy was inspected this appeared normal. There is no evidence of any inflammatory changes around the bowel anastomoses. There is no sign of any bowel obstruction. The fascia was then closed with looped #1 PDS suture. 2 sutures were used to secure the fascia. The skin was then closed with francesco. Patient tolerated the procedure well. He was sent to recovery room and then eventually the ICU. I discussed the findings with the patient's daughter. The options of hospice therapy were discussed with the patient's daughter. The family will need to decide the plan of care.
[2024-10-03 11:53] LABS: Glucose,Whole Blood 93 mg/dL (70-110)
[2024-10-03 12:34] LABS: Glucose,Whole Blood 104 mg/dL (70-110)
--- NOTE | 2024-10-03 12:43 | P.CNPUL ---
History of Present Illness Consult date: 10/03/24 Requesting physician: Rickie Pavon Reason for consult: other (ICU management) Chief complaint: Rickie-en-Y gastrojejunostomy History of present illness: This is a 68-year-old white male admitted on 09/09/2024, his chief complaint at the time was nausea vomiting and diarrhea. Patient was seen by surgery on consultation, he was seen on 09/10/2024, felt that the patient has intractable nausea and vomiting, he had history of esophageal dysmotility disorder, hiatal hernia, and esophagitis. On 09/12 patient underwent EGD, there was no evidence of gastric obstruction, there was a few clots around the PEG tube, there was no active bleeding, patient was found to have a small hiatal hernia at the GE junction, distal esophagus was normal. 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 Last night, patient developed wound dehiscence and he was having significant amount of bleeding from the surgical site/wound dehiscence. Patient required a total of 4 units of packed RBCs and required 2 units of fresh frozen plasma. Today patient underwent surgical repair of his fascial dehiscence with intraperitoneal blood clots related to previous bleeding from abdominal wall. His bleeding was surgically controlled, however considering the amount of bleeding that the patient had in the last 24 hours, I was asked to admit the patient to the ICU for monitoring for the next 24 hours. I saw the patient in the recovery room, he was noted to be hemodynamically stable, moaning and groaning because of some discomfort in his surgical site. Otherwise patient was not in any distress, and he was mostly on nasal cannula. Labs this morning before the last 2 units of packed RBCs given his hemoglobin was 6.3 WBC count 19 electrolytes are normal renal profile is normal Review of Systems Could not be obtained, patient is a very poor historian Past Medical History Past Medical History: Asthma, Coronary Artery Disease (CAD), Chest Pain / Angina, CVA/TIA, GERD/Reflux, Hyperlipidemia, Hypertension, Pneumonia, Rheumatoid Arthritis (RA) Additional Past Medical History / Comment(s): MIGRAINES, HEART MURMUR, hx HIATAL HERNIA, ANEMIA, one dr told him he had a stroke at one time-no effects, varicose veins, history of incarcerated per esophageal hernia, status post robotic-assisted paraesophageal hernia repair and Frederick fundoplication on 04/12/2022. History of Any Multi-Drug Resistant Organisms: None Reported Past Surgical History: Cholecystectomy, Heart Catheterization, Hernia Repair, Orthopedic Surgery Additional Past Surgical History / Comment(s): Lt achilles tendon,RT SHOULDER surgery, RT ACHILLES TENDON reattached, HEMORRHOIDECTOMY, 13 FATTY TUMORS removed. left hand index finger surgery after injury, EGD WITH DILATION, paraesophageal hernia repair with Frederick fundoplication on 04/12/2022. New feeding tube September 2024. PEG tube Past Anesthesia/Blood Transfusion Reactions: No Reported Reaction Additional Past Anesthesia/Blood Transfusion Reaction / Comment(s): no hx blood transfusion Past Psychological History: Anxiety, Depression Smoking Status: Former smoker Past Alcohol Use History: None Reported Past Drug Use History: Marijuana - Past Family History Mother Family Medical History: Cancer Father Additional Family Medical History / Comment(s): thinks aneurysm Medications and Allergies Home Medications Medication Instructions Recorded Confirmed Type Albuterol Sulfate [Albuterol 2 puff PO RT-Q4H PRN 07/30/24 09/10/24 History Sulfate Hfa] Ferrous Sulfate [Iron (65 MG 325 mg PO DAILY 07/30/24 09/10/24 History Elemental)] Metoprolol Tartrate [Lopressor] 25 mg PO BID-W/MEALS 07/30/24 09/10/24 History Nitroglycerin Sl Tabs [Nitrostat] 0.4 mg SUBLINGUAL Q5M PRN 07/30/24 09/10/24 History Pantoprazole [Protonix] 40 mg PO DAILY 07/30/24 09/10/24 History Sertraline [Zoloft] 25 mg PO DAILY 07/30/24 09/10/24 History busPIRone HCL [Buspar] 7.5 mg PO BID-W/MEALS 07/30/24 09/10/24 History Ondansetron [Zofran] 4 mg PO Q8HR PRN #21 tab 08/12/24 09/10/24 Rx Acetaminophen Tab [Tylenol] 650 mg PO Q6H PRN 08/28/24 09/10/24 History Atorvastatin [Lipitor] 40 mg PO DAILY 08/28/24 09/10/24 History Folic Acid 1 mg PO DAILY 08/28/24 09/10/24 History Multivitamins, Thera [Multivitamin 1 tab PO DAILY 08/28/24 09/10/24 History (formulary)] Thiamine [Vitamin B-1] 100 mg PO DAILY 08/28/24 09/10/24 History Calcium Carbonate [Tums] 1,000 mg PO Q4HR PRN tab 09/06/24 09/10/24 Rx Allergies Allergy/AdvReac Type Severity Reaction Status Date / Time No Known Allergies Allergy Verified 09/10/24 09:02 Physical Exam Vitals: Vital Signs Temp Pulse Pulse Resp BP BP BP 10/03/24 12:12 114 H 18 104/68 10/03/24 12:11 98.7 F 115 H 18 104/68 10/03/24 12:10 98.7 F 114 H 18 104/68 10/03/24 11:57 109 H 20 107/58 10/03/24 11:52 99.4 F 96 20 107/58 10/03/24 11:43 98.6 F 109 H 20 117/78 10/03/24 11:39 98.6 F 109 H 20 119/80 10/03/24 11:38 98.6 F 107 H 20 128/83 10/03/24 11:27 107 H 20 10/03/24 11:19 97.9 F 107 H 22 124/88 10/03/24 11:13 106 H 22 121/80 10/03/24 11:05 97.9 F 109 H 22 124/76 10/03/24 10:58 105 H 20 117/72 10/03/24 10:42 100 20 98/66 10/03/24 10:27 97.9 F 111 H 20 93/59 10/03/24 09:45 98.3 F 106 H 22 121/80 10/03/24 09:04 102 H 14 83/51 10/03/24 08:53 99.6 F 104 H 20 72/48 10/03/24 08:40 104 H 20 75/50 10/03/24 08:15 99.6 F 104 H 20 80/52 10/03/24 07:47 98.9 F 112 H 16 85/54 10/03/24 06:23 98.9 F 101 H 14 73/51 10/03/24 06:03 98.9 F 97 14 101/70 10/03/24 05:53 99 F 118 H 14 69/42 10/03/24 04:00 99.3 F 132 H 16 92/58 10/03/24 02:00 115 H 16 10/03/24 00:00 98.9 F 129 H 16 118/71 10/02/24 20:00 99.2 F 107 H 16 127/80 10/02/24 16:00 103 H 16 97/73 Pulse Ox 10/03/24 12:12 95 10/03/24 12:11 95 10/03/24 12:10 95 10/03/24 11:57 100 10/03/24 11:52 100 10/03/24 11:43 98 10/03/24 11:39 99 10/03/24 11:38 100 10/03/24 11:27 98 10/03/24 11:19 98 10/03/24 11:13 100 10/03/24 11:05 99 10/03/24 10:58 100 10/03/24 10:42 100 10/03/24 10:27 99 10/03/24 09:45 100 10/03/24 09:04 100 10/03/24 08:53 10/03/24 08:40 10/03/24 08:15 99 10/03/24 07:47 98 10/03/24 06:23 98 10/03/24 06:03 98 10/03/24 05:53 98 10/03/24 04:00 98 10/03/24 02:00 10/03/24 00:00 93 L 10/02/24 20:00 99 10/02/24 16:00 96 Intake and Output 10/02/24 10/03/24 10/03/24 22:59 06:59 14:59 Intake Total 2403 Output Total 100 Balance 2303 Intake: IV 800 Blood Product 1603 Ffp 24 Cpd Unit 335 [id number] Ffp 24 Cpd Unit 338 [id number] Rc As-1 Unit 0 [id number] Rc As-1 Unit 310 [id number] Rc As-1 Unit 310 [id number] Rc As-1 Unit 310 [id number] Output: Estimated Blood Loss 100 Other: Voiding Method Urinal Urinal Diaper Diaper Incontinent Incontinent # Voids 3 Weight 59 kg GENERAL: Revealed a 68-year-old white male moaning and groaning, but not in any respiratory distress. On 2 L nasal cannula while in recovery room, hemodynamically stable with a blood pressure 104/68 HEENT: Pupils are round and equally reacting to light. EOMI. No scleral icterus. No conjunctival pallor. Normocephalic, atraumatic. No pharyngeal erythema. No thyromegaly. CARDIOVASCULAR: S1 and S2 present. No murmurs, rubs, or gallops. PULMONARY: Chest is clear to auscultation, no wheezing , no crackles. -ABDOMEN: Soft, nontender, nondistended, normoactive bowel sounds. No palpable organomegaly. PEG tube is in place with no Abdominal tenderness or guarding, surgical site noted to be clean. Patient has a binder. MUSCULOSKELETAL: No joint swelling or deformity. EXTREMITIES: No cyanosis, clubbing, or pedal edema. NEUROLOGICAL: No gross focal neurologic deficit however the patient seems to moan and groan. SKIN: No rashes. no petechiae. Results - Laboratory Findings CBC and BMP: 10/03/24 02:37 10/03/24 02:37 PT/INR, D-dimer D-Dimer 5.73 mg/L FEU (<0.60) H 09/29/24 22:09 Abnormal lab findings: Abnormal Labs 09/09/24 09/09/24 09/09/24 22:00 22:00 22:00 WBC RBC Hgb Hct MCV MCHC RDW Plt Count MPV Immature Gran # Neutrophils # Neutrophils # (Manual) Lymphocytes # Monocytes # Eosinophils # Metamyelocytes # (Man) Myelocytes # (Manual) Immature Plt Fraction D-Dimer Sodium Potassium Chloride Carbon Dioxide BUN 25 H Creatinine 0.62 L Glucose 151 H POC Glucose (mg/dL) Plasma Lactic Acid Jack 4.6 H* Calcium Ionized Calcium Chago Phosphorus Magnesium Alkaline Phosphatase Troponin I 0.065 H* Total Protein 6.2 L Albumin Triglycerides Crossmatch 09/09/24 09/10/24 09/10/24 22:11 06:51 06:51 WBC 10.49 H 11.28 H RBC 4.03 L Hgb 12.5 L Hct 36.7 L MCV MCHC RDW Plt Count MPV Immature Gran # 0.10 H 0.10 H Neutrophils # 9.25 H 9.27 H Neutrophils # (Manual) Lymphocytes # 0.63 L 0.83 L Monocytes # 1.05 H Eosinophils # 0.00 L 0.01 L Metamyelocytes # (Man) Myelocytes # (Manual) Immature Plt Fraction D-Dimer Sodium Potassium Chloride Carbon Dioxide BUN 23 H Creatinine 0.48 L Glucose 105 H POC Glucose (mg/dL) Plasma Lactic Acid Jack Calcium Ionized Calcium Chago Phosphorus Magnesium Alkaline Phosphatase Troponin I Total Protein 5.1 L Albumin 2.8 L Triglycerides Crossmatch 09/11/24 09/11/24 09/11/24 00:23 05:12 06:19 WBC 12.50 H RBC 3.59 L 4.00 L Hgb 11.2 L 12.4 L Hct 32.9 L 37.0 L MCV MCHC RDW Plt Count MPV Immature Gran # 0.34 H 0.10 H Neutrophils # 9.44 H Neutrophils # (Manual) Lymphocytes # Monocytes # Eosinophils # 0.03 L Metamyelocytes # (Man) Myelocytes # (Manual) Immature Plt Fraction D-Dimer Sodium Potassium Chloride Carbon Dioxide BUN Creatinine Glucose POC Glucose (mg/dL) 119 H Plasma Lactic Acid Jack Calcium Ionized Calcium Chago Phosphorus Magnesium Alkaline Phosphatase Troponin I Total Protein Albumin Triglycerides Crossmatch 09/11/24 09/11/24 09/12/24 06:19 10:41 08:30 WBC RBC 3.61 L Hgb 11.3 L Hct 33.2 L MCV MCHC RDW Plt Count MPV Immature Gran # Neutrophils # Neutrophils # (Manual) Lymphocytes # Monocytes # Eosinophils # Metamyelocytes # (Man) Myelocytes # (Manual) Immature Plt Fraction D-Dimer Sodium Potassium 3.3 L Chloride 110 H Carbon Dioxide BUN 25 H Creatinine 0.62 L 0.64 L Glucose 120 H 130 H POC Glucose (mg/dL) Plasma Lactic Acid Jack Calcium Ionized Calcium Chago Phosphorus Magnesium Alkaline Phosphatase Troponin I Total Protein Albumin Triglycerides Crossmatch 09/12/24 09/12/24 09/12/24 12:41 15:05 17:25 WBC RBC 3.29 L Hgb 10.4 L Hct 29.1 L MCV MCHC RDW Plt Count MPV Immature Gran # Neutrophils # Neutrophils # (Manual) Lymphocytes # Monocytes # Eosinophils # Metamyelocytes # (Man) Myelocytes # (Manual) Immature Plt Fraction D-Dimer Sodium Potassium Chloride Carbon Dioxide BUN Creatinine Glucose POC Glucose (mg/dL) 141 H Plasma Lactic Acid Jack Calcium Ionized Calcium [place]ago Phosphorus Magnesium Alkaline Phosphatase Troponin I Total Protein Albumin 2.4 L Triglycerides Crossmatch 09/12/24 09/13/24 09/13/24 23:47 05:53 06:40 WBC RBC Hgb Hct MCV MCHC RDW Plt Count MPV Immature Gran # Neutrophils # Neutrophils # (Manual) Lymphocytes # Monocytes # Eosinophils # Metamyelocytes # (Man) Myelocytes # (Manual) Immature Plt Fraction D-Dimer Sodium Potassium 2.7 L* Chloride Carbon Dioxide BUN Creatinine 0.48 L Glucose 159 H POC Glucose (mg/dL) 172 H 180 H Plasma Lactic Acid Jack Calcium 8.2 L Ionized Calcium Chago 4.3 L Phosphorus Magnesium Alkaline Phosphatase Troponin I Total Protein Albumin Triglycerides Crossmatch 09/13/24 09/13/24 09/13/24 08:00 11:46 17:30 WBC RBC 3.19 L Hgb 9.9 L Hct 30.0 L MCV MCHC RDW Plt Count MPV 12.4 H Immature Gran # 0.08 H Neutrophils # Neutrophils # (Manual) Lymphocytes # 0.69 L Monocytes # Eosinophils # Metamyelocytes # (Man) Myelocytes # (Manual) Immature Plt Fraction 10.0 H D-Dimer Sodium Potassium Chloride Carbon Dioxide BUN Creatinine Glucose POC Glucose (mg/dL) 181 H 115 H Plasma Lactic Acid Jack Calcium Ionized Calcium [place]ago Phosphorus Magnesium Alkaline Phosphatase Troponin I Total Protein Albumin Triglycerides Crossmatch 09/14/24 09/14/24 09/14/24 00:06 06:01 06:01 WBC RBC Hgb Hct MCV MCHC RDW Plt Count MPV Immature Gran # Neutrophils # Neutrophils # (Manual) Lymphocytes # Monocytes # Eosinophils # Metamyelocytes # (Man) Myelocytes # (Manual) Immature Plt Fraction D-Dimer Sodium Potassium 2.9 L Chloride Carbon Dioxide BUN 6 L Creatinine 0.41 L Glucose 136 H POC Glucose (mg/dL) 160 H 153 H Plasma Lactic Acid Jack Calcium 7.6 L Ionized Calcium Chago Phosphorus Magnesium 1.5 L Alkaline Phosphatase Troponin I Total Protein Albumin Triglycerides Crossmatch 09/14/24 09/14/24 09/15/24 11:53 18:07 00:15 WBC RBC Hgb Hct MCV MCHC RDW Plt Count MPV Immature Gran # Neutrophils # Neutrophils # (Manual) Lymphocytes # Monocytes # Eosinophils # Metamyelocytes # (Man) Myelocytes # (Manual) Immature Plt Fraction D-Dimer Sodium Potassium Chloride Carbon Dioxide BUN Creatinine Glucose POC Glucose (mg/dL) 131 H 119 H 135 H Plasma Lactic Acid Jack Calcium Ionized Calcium [place] Phosphorus Magnesium Alkaline Phosphatase Troponin I Total Protein Albumin Triglycerides Crossmatch 09/15/24 09/15/24 09/15/24 05:17 05:17 06:31 WBC RBC 3.61 L Hgb 11.0 L Hct 34.4 L MCV MCHC RDW 20.1 H Plt Count MPV Immature Gran # 0.28 H Neutrophils # Neutrophils # (Manual) Lymphocytes # Monocytes # Eosinophils # Metamyelocytes # (Man) Myelocytes # (Manual) Immature Plt Fraction D-Dimer Sodium 136 L Potassium 3.4 L Chloride Carbon Dioxide 32 H BUN 8 L Creatinine 0.47 L Glucose 103 H POC Glucose (mg/dL) 133 H Plasma Lactic Acid Jack Calcium Ionized Calcium Chago Phosphorus Magnesium Alkaline Phosphatase Troponin I Total Protein Albumin Triglycerides Crossmatch 09/15/24 09/15/24 09/15/24 12:03 18:00 20:49 WBC RBC Hgb Hct MCV MCHC RDW Plt Count MPV Immature Gran # Neutrophils # Neutrophils # (Manual) Lymphocytes # Monocytes # Eosinophils # Metamyelocytes # (Man) Myelocytes # (Manual) Immature Plt Fraction D-Dimer Sodium Potassium Chloride Carbon Dioxide BUN Creatinine Glucose POC Glucose (mg/dL) 132 H 122 H 136 H Plasma Lactic Acid Jack Calcium Ionized Calcium [place]ago Phosphorus Magnesium Alkaline Phosphatase Troponin I Total Protein Albumin Triglycerides Crossmatch 09/16/24 09/16/24 09/16/24 03:27 03:44 03:44 WBC RBC 3.13 L Hgb 9.4 L Hct 29.6 L MCV MCHC 31.8 L RDW 20.0 H Plt Count MPV Immature Gran # 0.15 H Neutrophils # Neutrophils # (Manual) Lymphocytes # Monocytes # Eosinophils # Metamyelocytes # (Man) Myelocytes # (Manual) Immature Plt Fraction D-Dimer Sodium 135 L Potassium Chloride Carbon Dioxide BUN 8 L Creatinine 0.43 L Glucose 125 H POC Glucose (mg/dL) 131 H Plasma Lactic Acid Jack Calcium 7.9 L Ionized Calcium Chago Phosphorus Magnesium Alkaline Phosphatase Troponin I Total Protein Albumin Triglycerides Crossmatch 09/16/24 09/16/24 09/16/24 06:16 13:55 16:51 WBC RBC Hgb Hct MCV MCHC RDW Plt Count MPV Immature Gran # Neutrophils # Neutrophils # (Manual) Lymphocytes # Monocytes # Eosinophils # Metamyelocytes # (Man) Myelocytes # (Manual) Immature Plt Fraction D-Dimer Sodium Potassium Chloride Carbon Dioxide BUN Creatinine Glucose POC Glucose (mg/dL) 135 H 163 H 138 H Plasma Lactic Acid Jack Calcium Ionized Calcium [place] Phosphorus Magnesium Alkaline Phosphatase Troponin I Total Protein Albumin Triglycerides Crossmatch 09/16/24 09/16/24 09/17/24 22:33 23:30 03:30 WBC RBC Hgb Hct MCV MCHC RDW Plt Count MPV Immature Gran # Neutrophils # Neutrophils # (Manual) Lymphocytes # Monocytes # Eosinophils # Metamyelocytes # (Man) Myelocytes # (Manual) Immature Plt Fraction D-Dimer Sodium 136 L Potassium Chloride Carbon Dioxide BUN Creatinine 0.47 L Glucose 140 H POC Glucose (mg/dL) 143 H 132 H Plasma Lactic Acid Jack Calcium 8.1 L Ionized Calcium [place] Phosphorus Magnesium Alkaline Phosphatase 261 H Troponin I Total Protein 4.9 L Albumin 2.6 L Triglycerides Crossmatch 09/17/24 09/17/24 09/17/24 06:35 11:28 17:52 WBC RBC Hgb Hct MCV MCHC RDW Plt Count MPV Immature Gran # Neutrophils # Neutrophils # (Manual) Lymphocytes # Monocytes # Eosinophils # Metamyelocytes # (Man) Myelocytes # (Manual) Immature Plt Fraction D-Dimer Sodium Potassium Chloride Carbon Dioxide BUN Creatinine Glucose POC Glucose (mg/dL) 161 H 172 H 144 H Plasma Lactic Acid Jack Calcium Ionized Calcium [place] Phosphorus Magnesium Alkaline Phosphatase Troponin I Total Protein Albumin Triglycerides Crossmatch 09/17/24 09/18/24 09/18/24 23:54 03:17 03:17 WBC RBC 3.37 L Hgb 10.5 L Hct 31.7 L MCV MCHC RDW 20.0 H Plt Count MPV Immature Gran # 0.13 H Neutrophils # Neutrophils # (Manual) Lymphocytes # 0.51 L Monocytes # Eosinophils # 0.02 L Metamyelocytes # (Man) Myelocytes # (Manual) Immature Plt Fraction D-Dimer Sodium 136 L Potassium Chloride Carbon Dioxide BUN Creatinine 0.42 L Glucose 155 H POC Glucose (mg/dL) 168 H Plasma Lactic Acid Jack Calcium 8.0 L Ionized Calcium [place] Phosphorus 2.4 L Magnesium Alkaline Phosphatase Troponin I Total Protein Albumin Triglycerides Crossmatch 09/18/24 09/18/24 09/18/24 06:27 11:03 17:08 WBC RBC Hgb Hct MCV MCHC RDW Plt Count MPV Immature Gran # Neutrophils # Neutrophils # (Manual) Lymphocytes # Monocytes # Eosinophils # Metamyelocytes # (Man) Myelocytes # (Manual) Immature Plt Fraction D-Dimer Sodium Potassium Chloride Carbon Dioxide BUN Creatinine Glucose POC Glucose (mg/dL) 153 H 182 H 152 H Plasma Lactic Acid Jack Calcium Ionized Calcium [place] Phosphorus Magnesium Alkaline Phosphatase Troponin I Total Protein Albumin Triglycerides Crossmatch 09/19/24 09/19/24 09/19/24 00:17 05:57 06:03 WBC RBC Hgb Hct MCV MCHC RDW Plt Count MPV Immature Gran # Neutrophils # Neutrophils # (Manual) Lymphocytes # Monocytes # Eosinophils # Metamyelocytes # (Man) Myelocytes # (Manual) Immature Plt Fraction D-Dimer Sodium 136 L Potassium 3.0 L Chloride Carbon Dioxide 31 H BUN Creatinine 0.46 L Glucose 154 H POC Glucose (mg/dL) 167 H 175 H Plasma Lactic Acid Jack Calcium Ionized Calcium [place]ago Phosphorus Magnesium Alkaline Phosphatase Troponin I Total Protein Albumin Triglycerides Crossmatch 09/19/24 09/19/24 09/19/24 11:48 17:31 23:40 WBC RBC Hgb Hct MCV MCHC RDW Plt Count MPV Immature Gran # Neutrophils # Neutrophils # (Manual) Lymphocytes # Monocytes # Eosinophils # Metamyelocytes # (Man) Myelocytes # (Manual) Immature Plt Fraction D-Dimer Sodium Potassium Chloride Carbon Dioxide BUN Creatinine Glucose POC Glucose (mg/dL) 162 H 141 H 166 H Plasma Lactic Acid Jack Calcium Ionized Calcium [place] Phosphorus Magnesium Alkaline Phosphatase Troponin I Total Protein Albumin Triglycerides Crossmatch 09/20/24 09/20/24 09/20/24 06:23 06:24 11:22 WBC RBC Hgb Hct MCV MCHC RDW Plt Count MPV Immature Gran # Neutrophils # Neutrophils # (Manual) Lymphocytes # Monocytes # Eosinophils # Metamyelocytes # (Man) Myelocytes # (Manual) Immature Plt Fraction D-Dimer Sodium Potassium Chloride Carbon Dioxide BUN Creatinine 0.59 L Glucose 158 H POC Glucose (mg/dL) 172 H 132 H Plasma Lactic Acid Jack Calcium Ionized Calcium [place]ago Phosphorus Magnesium Alkaline Phosphatase Troponin I Total Protein Albumin Triglycerides Crossmatch 09/20/24 09/20/24 09/21/24 16:47 20:48 01:36 WBC RBC Hgb Hct MCV MCHC RDW Plt Count MPV Immature Gran # Neutrophils # Neutrophils # (Manual) Lymphocytes # Monocytes # Eosinophils # Metamyelocytes # (Man) Myelocytes # (Manual) Immature Plt Fraction D-Dimer Sodium Potassium Chloride Carbon Dioxide BUN Creatinine Glucose POC Glucose (mg/dL) 173 H 143 H 179 H Plasma Lactic Acid Jack Calcium Ionized Calcium Chago Phosphorus Magnesium Alkaline Phosphatase Troponin I Total Protein Albumin Triglycerides Crossmatch 09/21/24 09/21/24 09/21/24 03:51 06:15 06:30 WBC 12.48 H RBC 2.98 L Hgb 9.1 L Hct 29.3 L MCV 98.3 H MCHC 31.1 L RDW 20.4 H Plt Count MPV 12.8 H Immature Gran # 0.09 H Neutrophils # 11.10 H Neutrophils # (Manual) Lymphocytes # 0.65 L Monocytes # Eosinophils # 0.03 L Metamyelocytes # (Man) Myelocytes # (Manual) Immature Plt Fraction D-Dimer Sodium Potassium 3.3 L Chloride 109 H Carbon Dioxide BUN 29 H Creatinine Glucose 153 H POC Glucose (mg/dL) 141 H Plasma Lactic Acid Jack Calcium 8.2 L Ionized Calcium Chago Phosphorus Magnesium Alkaline Phosphatase Troponin I Total Protein Albumin Triglycerides Crossmatch 09/21/24 09/21/24 09/21/24 10:36 16:35 23:34 WBC RBC Hgb Hct MCV MCHC RDW Plt Count MPV Immature Gran # Neutrophils # Neutrophils # (Manual) Lymphocytes # Monocytes # Eosinophils # Metamyelocytes # (Man) Myelocytes # (Manual) Immature Plt Fraction D-Dimer Sodium Potassium Chloride Carbon Dioxide BUN Creatinine Glucose POC Glucose (mg/dL) 177 H 176 H 169 H Plasma Lactic Acid Jack Calcium Ionized Calcium Chago Phosphorus Magnesium Alkaline Phosphatase Troponin I Total Protein Albumin Triglycerides Crossmatch 09/22/24 09/22/24 09/22/24 02:56 02:56 06:27 WBC 12.83 H RBC 2.75 L Hgb 8.5 L Hct 26.6 L MCV MCHC RDW 21.0 H Plt Count MPV 13.1 H Immature Gran # 0.11 H Neutrophils # 11.45 H Neutrophils # (Manual) Lymphocytes # 0.77 L Monocytes # Eosinophils # Metamyelocytes # (Man) Myelocytes # (Manual) Immature Plt Fraction D-Dimer Sodium 147 H Potassium Chloride 113 H Carbon Dioxide BUN 35 H Creatinine Glucose 156 H POC Glucose (mg/dL) 184 H Plasma Lactic Acid Jack Calcium 8.3 L Ionized Calcium Chago Phosphorus Magnesium Alkaline Phosphatase 182 H Troponin I Total Protein 4.3 L Albumin 2.0 L Triglycerides Crossmatch 09/22/24 09/22/24 09/22/24 11:41 17:00 19:41 WBC RBC Hgb Hct MCV MCHC RDW Plt Count MPV Immature Gran # Neutrophils # Neutrophils # (Manual) Lymphocytes # Monocytes # Eosinophils # Metamyelocytes # (Man) Myelocytes # (Manual) Immature Plt Fraction D-Dimer Sodium Potassium Chloride Carbon Dioxide BUN Creatinine Glucose POC Glucose (mg/dL) 168 H 189 H 134 H Plasma Lactic Acid Jack Calcium Ionized Calcium [place]ago Phosphorus Magnesium Alkaline Phosphatase Troponin I Total Protein Albumin Triglycerides Crossmatch 09/23/24 09/23/24 09/23/24 00:02 06:28 07:15 WBC RBC Hgb Hct MCV MCHC RDW Plt Count MPV Immature Gran # Neutrophils # Neutrophils # (Manual) Lymphocytes # Monocytes # Eosinophils # Metamyelocytes # (Man) Myelocytes # (Manual) Immature Plt Fraction D-Dimer Sodium 152 H Potassium 3.3 L Chloride 116 H Carbon Dioxide BUN 38 H Creatinine Glucose 146 H POC Glucose (mg/dL) 172 H 170 H Plasma Lactic Acid Jack Calcium 8.0 L Ionized Calcium Chago Phosphorus 5.0 H Magnesium Alkaline Phosphatase Troponin I Total Protein Albumin Triglycerides Crossmatch 09/23/24 09/23/24 09/23/24 07:15 11:44 17:02 WBC 12.39 H RBC 2.97 L Hgb 9.2 L Hct 27.6 L MCV MCHC RDW 20.9 H Plt Count MPV 12.7 H Immature Gran # 0.13 H Neutrophils # 10.72 H Neutrophils # (Manual) Lymphocytes # 0.87 L Monocytes # Eosinophils # Metamyelocytes # (Man) Myelocytes # (Manual) Immature Plt Fraction D-Dimer Sodium Potassium Chloride Carbon Dioxide BUN Creatinine Glucose POC Glucose (mg/dL) 122 H 215 H Plasma Lactic Acid Jack Calcium Ionized Calcium Chago Phosphorus Magnesium Alkaline Phosphatase Troponin I Total Protein Albumin Triglycerides Crossmatch 09/23/24 09/24/24 09/24/24 19:48 00:23 03:17 WBC RBC Hgb Hct MCV MCHC RDW Plt Count MPV Immature Gran # Neutrophils # Neutrophils # (Manual) Lymphocytes # Monocytes # Eosinophils # Metamyelocytes # (Man) Myelocytes # (Manual) Immature Plt Fraction D-Dimer Sodium 150 H Potassium Chloride 117 H Carbon Dioxide BUN 39 H Creatinine Glucose 172 H POC Glucose (mg/dL) 157 H 174 H Plasma Lactic Acid Jack Calcium Ionized Calcium Chago Phosphorus Magnesium 2.5 H Alkaline Phosphatase Troponin I Total Protein Albumin Triglycerides Crossmatch 09/24/24 09/24/24 09/24/24 06:22 12:08 16:56 WBC RBC Hgb Hct MCV MCHC RDW Plt Count MPV Immature Gran # Neutrophils # Neutrophils # (Manual) Lymphocytes # Monocytes # Eosinophils # Metamyelocytes # (Man) Myelocytes # (Manual) Immature Plt Fraction D-Dimer Sodium Potassium Chloride Carbon Dioxide BUN Creatinine Glucose POC Glucose (mg/dL) 185 H 179 H 210 H Plasma Lactic Acid Jack Calcium Ionized Calcium Chago Phosphorus Magnesium Alkaline Phosphatase Troponin I Total Protein Albumin Triglycerides Crossmatch 09/24/24 09/25/24 09/25/24 20:05 00:19 06:15 WBC RBC Hgb Hct MCV MCHC RDW Plt Count MPV Immature Gran # Neutrophils # Neutrophils # (Manual) Lymphocytes # Monocytes # Eosinophils # Metamyelocytes # (Man) Myelocytes # (Manual) Immature Plt Fraction D-Dimer Sodium Potassium Chloride Carbon Dioxide BUN Creatinine Glucose POC Glucose (mg/dL) 176 H 152 H 167 H Plasma Lactic Acid Jack Calcium Ionized Calcium [place] Phosphorus Magnesium Alkaline Phosphatase Troponin I Total Protein Albumin Triglycerides Crossmatch 09/25/24 09/25/24 09/25/24 09:54 09:54 20:51 WBC 10.13 H RBC 2.79 L Hgb 8.6 L Hct 26.6 L MCV MCHC RDW 20.3 H Plt Count MPV Immature Gran # 0.19 H Neutrophils # 8.56 H Neutrophils # (Manual) Lymphocytes # 0.77 L Monocytes # Eosinophils # Metamyelocytes # (Man) Myelocytes # (Manual) Immature Plt Fraction D-Dimer Sodium 149 H Potassium 3.0 L Chloride 109 H Carbon Dioxide 31 H BUN 34 H Creatinine Glucose 104 H POC Glucose (mg/dL) 206 H Plasma Lactic Acid Jack Calcium Ionized Calcium [place] Phosphorus Magnesium Alkaline Phosphatase Troponin I Total Protein Albumin Triglycerides Crossmatch 09/26/24 09/26/24 09/26/24 01:04 02:56 05:14 WBC RBC Hgb Hct MCV MCHC RDW Plt Count MPV Immature Gran # Neutrophils # Neutrophils # (Manual) Lymphocytes # Monocytes # Eosinophils # Metamyelocytes # (Man) Myelocytes # (Manual) Immature Plt Fraction D-Dimer Sodium 146 H Potassium Chloride 112 H Carbon Dioxide BUN 34 H Creatinine Glucose 152 H POC Glucose (mg/dL) 127 H 142 H Plasma Lactic Acid Jack Calcium 8.3 L Ionized Calcium [place] Phosphorus Magnesium Alkaline Phosphatase Troponin I Total Protein Albumin Triglycerides Crossmatch 09/26/24 09/26/24 09/26/24 05:30 11:21 16:17 WBC 16.11 H RBC 2.73 L Hgb 8.4 L Hct 26.1 L MCV MCHC RDW 20.3 H Plt Count MPV Immature Gran # 0.41 H Neutrophils # 14.23 H Neutrophils # (Manual) Lymphocytes # Monocytes # Eosinophils # 0.01 L Metamyelocytes # (Man) Myelocytes # (Manual) Immature Plt Fraction D-Dimer Sodium Potassium Chloride Carbon Dioxide BUN Creatinine Glucose POC Glucose (mg/dL) 161 H Plasma Lactic Acid Ajck Calcium Ionized Calcium [place] Phosphorus Magnesium Alkaline Phosphatase Troponin I Total Protein Albumin Triglycerides Crossmatch See Detail 09/26/24 09/26/24 09/27/24 18:46 23:58 11:09 WBC 11.31 H RBC 4.23 L Hgb Hct MCV MCHC RDW Plt Count MPV 12.4 H Immature Gran # 0.24 H Neutrophils # 10.06 H Neutrophils # (Manual) Lymphocytes # 0.48 L Monocytes # Eosinophils # Metamyelocytes # (Man) Myelocytes # (Manual) Immature Plt Fraction D-Dimer Sodium Potassium Chloride Carbon Dioxide BUN Creatinine Glucose POC Glucose (mg/dL) 130 H 126 H Plasma Lactic Acid Jack Calcium Ionized Calcium [place] Phosphorus Magnesium Alkaline Phosphatase Troponin I Total Protein Albumin Triglycerides Crossmatch 09/27/24 09/27/24 09/27/24 11:09 17:07 19:58 WBC RBC Hgb Hct MCV MCHC RDW Plt Count MPV Immature Gran # Neutrophils # Neutrophils # (Manual) Lymphocytes # Monocytes # Eosinophils # Metamyelocytes # (Man) Myelocytes # (Manual) Immature Plt Fraction D-Dimer Sodium 147 H Potassium Chloride 110 H Carbon Dioxide BUN 27 H Creatinine Glucose POC Glucose (mg/dL) 145 H 115 H Plasma Lactic Acid Jack Calcium Ionized Calcium [place] Phosphorus Magnesium Alkaline Phosphatase Troponin I Total Protein Albumin Triglycerides 205.00 H Crossmatch 09/28/24 09/28/24 09/28/24 00:30 06:24 07:01 WBC 13.34 H RBC 2.99 L Hgb 9.3 L D Hct 28.0 L MCV MCHC RDW Plt Count MPV Immature Gran # 0.27 H Neutrophils # 11.75 H Neutrophils # (Manual) Lymphocytes # 0.61 L Monocytes # Eosinophils # Metamyelocytes # (Man) Myelocytes # (Manual) Immature Plt Fraction D-Dimer Sodium Potassium Chloride Carbon Dioxide BUN Creatinine Glucose POC Glucose (mg/dL) 116 H 114 H Plasma Lactic Acid Jack Calcium Ionized Calcium [place] Phosphorus Magnesium Alkaline Phosphatase Troponin I Total Protein Albumin Triglycerides Crossmatch 09/28/24 09/28/24 09/28/24 07:01 11:53 18:06 WBC RBC Hgb Hct MCV MCHC RDW Plt Count MPV Immature Gran # Neutrophils # Neutrophils # (Manual) Lymphocytes # Monocytes # Eosinophils # Metamyelocytes # (Man) Myelocytes # (Manual) Immature Plt Fraction D-Dimer Sodium 148 H Potassium 3.1 L Chloride 117 H Carbon Dioxide BUN 22 H Creatinine Glucose 129 H POC Glucose (mg/dL) 167 H 153 H Plasma Lactic Acid Jack Calcium 8.3 L Ionized Calcium [place] Phosphorus Magnesium Alkaline Phosphatase Troponin I Total Protein Albumin Triglycerides Crossmatch 09/28/24 09/28/24 09/29/24 19:58 23:58 05:32 WBC 14.59 H RBC 3.19 L Hgb 9.6 L Hct 30.4 L MCV MCHC 31.6 L RDW Plt Count 488 H MPV Immature Gran # 0.37 H Neutrophils # 12.30 H Neutrophils # (Manual) Lymphocytes # Monocytes # Eosinophils # 0.36 H Metamyelocytes # (Man) Myelocytes # (Manual) Immature Plt Fraction D-Dimer Sodium Potassium Chloride Carbon Dioxide BUN Creatinine Glucose POC Glucose (mg/dL) 164 H 148 H Plasma Lactic Acid Jack Calcium Ionized Calcium [place] Phosphorus Magnesium Alkaline Phosphatase Troponin I Total Protein Albumin Triglycerides Crossmatch 09/29/24 09/29/24 09/29/24 05:32 06:14 11:52 WBC RBC Hgb Hct MCV MCHC RDW Plt Count MPV Immature Gran # Neutrophils # Neutrophils # (Manual) Lymphocytes # Monocytes # Eosinophils # Metamyelocytes # (Man) Myelocytes # (Manual) Immature Plt Fraction D-Dimer Sodium 152 H Potassium Chloride 109 H Carbon Dioxide BUN 22 H Creatinine Glucose POC Glucose (mg/dL) 117 H 124 H Plasma Lactic Acid Jack Calcium Ionized Calcium [place] Phosphorus 1.8 L Magnesium Alkaline Phosphatase Troponin I Total Protein Albumin Triglycerides Crossmatch 09/29/24 09/30/24 09/30/24 22:09 00:15 05:49 WBC RBC Hgb Hct MCV MCHC RDW Plt Count MPV Immature Gran # Neutrophils # Neutrophils # (Manual) Lymphocytes # Monocytes # Eosinophils # Metamyelocytes # (Man) Myelocytes # (Manual) Immature Plt Fraction D-Dimer 5.73 H Sodium Potassium Chloride Carbon Dioxide BUN Creatinine Glucose POC Glucose (mg/dL) 142 H 150 H Plasma Lactic Acid Jack Calcium Ionized Calcium [place] Phosphorus Magnesium Alkaline Phosphatase Troponin I Total Protein Albumin Triglycerides Crossmatch 09/30/24 09/30/24 09/30/24 12:08 12:08 12:20 WBC 13.49 H RBC 3.26 L Hgb 10.1 L Hct 30.0 L MCV MCHC RDW Plt Count MPV 12.3 H Immature Gran # 0.29 H Neutrophils # 11.75 H Neutrophils # (Manual) Lymphocytes # 0.59 L Monocytes # Eosinophils # Metamyelocytes # (Man) Myelocytes # (Manual) Immature Plt Fraction D-Dimer Sodium Potassium Chloride 109 H Carbon Dioxide BUN 21 H Creatinine Glucose 141 H POC Glucose (mg/dL) 156 H Plasma Lactic Acid Jack Calcium Ionized Calcium [place] Phosphorus 1.4 L Magnesium Alkaline Phosphatase Troponin I Total Protein Albumin Triglycerides Crossmatch 09/30/24 09/30/24 10/01/24 18:13 23:35 06:32 WBC RBC Hgb Hct MCV MCHC RDW Plt Count MPV Immature Gran # Neutrophils # Neutrophils # (Manual) Lymphocytes # Monocytes # Eosinophils # Metamyelocytes # (Man) Myelocytes # (Manual) Immature Plt Fraction D-Dimer Sodium Potassium Chloride Carbon Dioxide BUN Creatinine Glucose POC Glucose (mg/dL) 169 H 182 H 193 H Plasma Lactic Acid Jack Calcium Ionized Calcium [place] Phosphorus Magnesium Alkaline Phosphatase Troponin I Total Protein Albumin Triglycerides Crossmatch 10/01/24 10/01/24 10/01/24 07:43 07:43 12:08 WBC 11.42 H RBC 2.78 L Hgb 8.5 L D Hct 26.3 L MCV MCHC RDW Plt Count MPV Immature Gran # 0.26 H Neutrophils # 9.69 H Neutrophils # (Manual) Lymphocytes # 0.70 L Monocytes # Eosinophils # Metamyelocytes # (Man) Myelocytes # (Manual) Immature Plt Fraction D-Dimer Sodium Potassium 2.6 L* Chloride Carbon Dioxide 33 H BUN 22 H Creatinine 0.65 L Glucose 150 H POC Glucose (mg/dL) 189 H Plasma Lactic Acid Jack Calcium 7.9 L Ionized Calcium [place] Phosphorus Magnesium Alkaline Phosphatase Troponin I Total Protein Albumin Triglycerides Crossmatch 10/01/24 10/01/24 10/02/24 18:10 22:53 00:26 WBC 15.09 H RBC 2.94 L Hgb 9.1 L Hct 27.5 L MCV MCHC RDW Plt Count MPV 12.4 H Immature Gran # Neutrophils # Neutrophils # (Manual) Lymphocytes # Monocytes # Eosinophils # Metamyelocytes # (Man) Myelocytes # (Manual) Immature Plt Fraction D-Dimer Sodium Potassium Chloride Carbon Dioxide BUN Creatinine Glucose POC Glucose (mg/dL) 212 H 171 H Plasma Lactic Acid Jack Calcium Ionized Calcium [place] Phosphorus Magnesium Alkaline Phosphatase Troponin I Total Protein Albumin Triglycerides Crossmatch 10/02/24 10/02/24 10/02/24 06:29 07:06 11:51 WBC RBC Hgb Hct MCV MCHC RDW Plt Count MPV Immature Gran # Neutrophils # Neutrophils # (Manual) Lymphocytes # Monocytes # Eosinophils # Metamyelocytes # (Man) Myelocytes # (Manual) Immature Plt Fraction D-Dimer Sodium Potassium 3.3 L Chloride Carbon Dioxide BUN 21 H Creatinine 0.62 L Glucose 180 H POC Glucose (mg/dL) 210 H 155 H Plasma Lactic Acid Jack Calcium 8.0 L Ionized Calcium [place] Phosphorus 2.4 L Magnesium Alkaline Phosphatase Troponin I Total Protein Albumin 2.1 L Triglycerides Crossmatch 10/02/24 10/02/24 10/03/24 18:01 23:54 00:50 WBC 19.42 H RBC 2.19 L Hgb 6.8 L* D Hct 21.0 L MCV MCHC RDW Plt Count MPV 12.7 H Immature Gran # Neutrophils # Neutrophils # (Manual) Lymphocytes # Monocytes # Eosinophils # Metamyelocytes # (Man) Myelocytes # (Manual) Immature Plt Fraction D-Dimer Sodium Potassium Chloride Carbon Dioxide BUN Creatinine Glucose POC Glucose (mg/dL) 156 H 200 H Plasma Lactic Acid Jack Calcium Ionized Calcium [place] Phosphorus Magnesium Alkaline Phosphatase Troponin I Total Protein Albumin Triglycerides Crossmatch 10/03/24 10/03/24 10/03/24 02:37 02:37 02:38 WBC 19.08 H RBC 1.99 L Hgb 6.3 L* Hct 19.3 L* MCV MCHC RDW Plt Count MPV Immature Gran # 1.09 H Neutrophils # Neutrophils # (Manual) 17.55 H Lymphocytes # Monocytes # Eosinophils # Metamyelocytes # (Man) 0.19 H Myelocytes # (Manual) 0.19 H Immature Plt Fraction D-Dimer Sodium 135 L Potassium Chloride Carbon Dioxide BUN 27 H Creatinine Glucose 153 H POC Glucose (mg/dL) Plasma Lactic Acid Jack Calcium 7.7 L Ionized Calcium [place] Phosphorus 1.5 L Magnesium Alkaline Phosphatase Troponin I Total Protein Albumin Triglycerides Crossmatch See Detail 10/03/24 10/03/24 06:02 08:42 WBC RBC Hgb Hct MCV MCHC RDW Plt Count MPV Immature Gran # Neutrophils # Neutrophils # (Manual) Lymphocytes # Monocytes # Eosinophils # Metamyelocytes # (Man) Myelocytes # (Manual) Immature Plt Fraction D-Dimer Sodium Potassium Chloride Carbon Dioxide BUN Creatinine Glucose POC Glucose (mg/dL) 178 H 149 H Plasma Lactic Acid Jack Calcium Ionized Calcium [place] Phosphorus Magnesium Alkaline Phosphatase Troponin I Total Protein Albumin Triglycerides Crossmatch - Diagnostic Findings Additional studies: CT abdomen and pelvis done today showed small nodular opacities in the lung bases, small amount of free fluid in the abdomen and pelvis some gastric fold thickening and there is a ventral abdominal wall hernia containing nondilated small bowel Assessment and Plan Assessment: Impression: SMA syndrome status post gastrojejunostomy and J-tube placement on 09/25 Status post repair of fascial dehiscence on 10/03/2024 Acute blood loss anemia from fascial dehiscence requiring surgical repair 10/03/2024 Intractable nausea vomiting and upper GI bleed secondary to above improvement Bilateral aspiration pneumonia suspected Hyponatremia Recurrent nausea vomiting, intractable requiring PEG tube placement during last admission. Epigastric pain and tenderness could be secondary to gastritis, status post Roex-en-Y gastrojejunostomy. S/p J-tube placement Severe calorie protein malnutrition Hypernatremia, improved Sinus tachycardia versus SVT requiring metoprolol clonidine patch, better controlled Elevated troponin could be secondary to SVT related dehydration, evaluated by cardiology during last admission Hypertension Hyperlipidemia Anxiety/depression, not on active issue History of hiatal hernia Recommendation: Patient was seen and examined in the recovery room Will transfer the patient to the ICU for monitoring over the next 24 hours Continue present supportive care measures Continue Protonix Continue Reglan as needed Continue nutritional support Continue GI and DVT prophylaxis Will continue to follow Discussed patient condition with surgery on the case. Time with Patient: Greater than 30
[2024-10-03] MEDS: SODIUM PHOSPHATE 30 MMOL in DEXTROSE 5% IN WATER 250 ML IVPB ONE (13:00)
--- NOTE | 2024-10-03 13:14 | P.PN ---
Subjective Patient is seen for follow-up for hypernatremia. He is maintained on TPN. Status post repair of fascial dehiscence on 10/03/2024. Patient is currently in the ICU. He had significant bleeding and hemoglobin dropped to 6.3 g/dL. Currently receiving third unit packed RBCs. Sodium is 135 today. Currently there is no sodium in his TPN. Objective - Vital Signs Vital signs: Vital Signs Temp 98.1 F 10/03/24 12:37 Pulse 102 H 10/03/24 12:37 Resp 18 10/03/24 12:37 BP 82/54 10/03/24 12:37 Pulse Ox 98 10/03/24 12:37 FiO2 Intake & Output 10/02/24 10/03/24 10/03/24 18:59 06:59 18:59 Intake Total 1048 2403 Output Total 100 Balance 1048 2303 Weight 59 kg Intake: IV 800 Intake, IV Titration 1048 Amount Mvi, Adult No.4 with Vit 1048 K 10 ml Trace (Conc-1Ml/ Dose) 1 ml Calcium Gluconate 1 gm Potassium Acetate 46 meq Magnesium Sulfate gm 0.5 gm Potassium Phosphate 9 mmol In Amino Acids 5 %/ Dextrose 20 % 1,000 ml @ 80 mls/hr IV .BY DURATION [facility] Rx#:[id number] Blood Product 1603 Ffp 24 Cpd Unit 335 [id number] Ffp 24 Cpd Unit 338 [id number] Rc As-1 Unit 0 [id number] Rc As-1 Unit 310 [id number] Rc As-1 Unit 310 [id number] Rc As-1 Unit 310 [id number] Output: Estimated Blood Loss 100 Other: Voiding Method Urinal Urinal Diaper Diaper Incontinent Incontinent # Voids 3 - Exam Patient is awake, comfortable, no acute fracture Examination of the heart S1 and S2 Examination of the lungs bilateral breath sounds are heard Abdomen is soft, dressed Examination of lower extremities shows trace edema [employer] exam grossly intact patient is moving all 4 extremities. - Labs CBC & Chem 7: 10/03/24 02:37 10/03/24 02:37 Labs: Abnormal Lab Results - Last 24 Hours (Table) 10/02/24 10/02/24 10/03/24 Range/Units 18:01 23:54 00:50 WBC 19.42 H (4.50-10.00) 10*3/uL RBC 2.19 L (4.40-5.60) 10*6/uL Hgb 6.8 L* D (13.0-17.0) g/dL Hct 21.0 L (39.6-50.0) % MPV 12.7 H (9.5-12.2) fL Immature Gran # (0.00-0.04) 10*3/uL Neutrophils # (Manual) (1.3-7.7) k/uL Metamyelocytes # (Man) (0) k/uL Myelocytes # (Manual) (0) k/uL Sodium (137-145) mmol/L BUN (9-20) mg/dL Glucose (74-99) mg/dL POC Glucose (mg/dL) 156 H 200 H (70-110) mg/dL Calcium (8.4-10.2) mg/dL Phosphorus (2.5-4.5) mg/dL Crossmatch 10/03/24 10/03/24 10/03/24 Range/Units 02:37 02:37 02:38 WBC 19.08 H (4.50-10.00) 10*3/uL RBC 1.99 L (4.40-5.60) 10*6/uL Hgb 6.3 L* (13.0-17.0) g/dL Hct 19.3 L* (39.6-50.0) % MPV (9.5-12.2) fL Immature Gran # 1.09 H (0.00-0.04) 10*3/uL Neutrophils # (Manual) 17.55 H (1.3-7.7) k/uL Metamyelocytes # (Man) 0.19 H (0) k/uL Myelocytes # (Manual) 0.19 H (0) k/uL Sodium 135 L (137-145) mmol/L BUN 27 H (9-20) mg/dL Glucose 153 H (74-99) mg/dL POC Glucose (mg/dL) (70-110) mg/dL Calcium 7.7 L (8.4-10.2) mg/dL Phosphorus 1.5 L (2.5-4.5) mg/dL Crossmatch See Detail 10/03/24 10/03/24 Range/Units 06:02 08:42 WBC (4.50-10.00) 10*3/uL RBC (4.40-5.60) 10*6/uL Hgb (13.0-17.0) g/dL Hct (39.6-50.0) % MPV (9.5-12.2) fL Immature Gran # (0.00-0.04) 10*3/uL Neutrophils # (Manual) (1.3-7.7) k/uL Metamyelocytes # (Man) (0) k/uL Myelocytes # (Manual) (0) k/uL Sodium (137-145) mmol/L BUN (9-20) mg/dL Glucose (74-99) mg/dL POC Glucose (mg/dL) 178 H 149 H (70-110) mg/dL Calcium (8.4-10.2) mg/dL Phosphorus (2.5-4.5) mg/dL Crossmatch Assessment and Plan Assessment: 1. Hypernatremia from lack of oral water intake. Sodium level 135 today 2. SMA syndrome. Surgery following. 3. Status post J-tube placement September 25, 2024. 4. Hypokalemia from poor intake. Being replaced. 5. Fascial dehiscence with bleeding status post repair on 10/03/2024 Plan: Resume sodium in TPN Repeat labs in a.m.
[2024-10-03] MEDS: 1: MVI, ADULT NO.4 WITH VIT K 10 ML, TRACE (CONC-1ML/DOSE) 1 ML, CALCIUM GLUCONATE 1 GM, IV SCH (15:51)
[2024-10-03 18:16] LABS: HCT 31.6 % (39.6-50.0); MCH 30.9 pg (27.0-32.0); MCHC 34.5 g/dL (32.0-37.0); Mean Platelet Volume 12.6 fL (9.5-12.2); Platelet Count 164 10*3/uL (140-440); RBC 3.53 10*6/uL (4.40-5.60); RDW 16.6 % (11.5-14.5)
[2024-10-03 18:20] LABS: HGB 10.9 g/dL (13.0-17.0)
[2024-10-03 18:21] LABS: MCV 89.5 fL (80.0-97.0)
[2024-10-03 23:29] LABS: Glucose,Whole Blood 174 mg/dL (70-110)
[2024-10-04] MEDS ORDERED: 1: MVI, ADULT NO.4 WITH VIT K 10 ML, TRACE (CONC-1ML/DOSE) 1 ML, CALCIUM GLUCONATE 1 GM, IV SCH (02:00)
[2024-10-04] MEDS: LORazepam 2 MG/ML INJ IV PRN (02:08)
[2024-10-04 05:20] LABS: African American GFR (CKD) >90 (>60 ml/min/1.73 sqM); Anion Gap 8 mmol/L; Blood Urea Nitrogen 24 mg/dL (9-20); Calcium 7.2 mg/dL (8.4-10.2); Carbon Dioxide 23 mmol/L (22-30); Chloride 111 mmol/L (98-107); Glucose 172 mg/dL (74-99); Non-African American GFR(CKD) >90 (>60 ml/min/1.73 sqM); Sodium 142 mmol/L (137-145)
[2024-10-04 05:23] LABS: Magnesium 1.7 mg/dL (1.6-2.3); Phosphorus 2.8 mg/dL (2.5-4.5); Potassium 4.2 mmol/L (3.5-5.1)
[2024-10-04] MEDS: MAGNESIUM SULFATE-D5W PMX 1 GM in DEXTROSE/WATER 1 100ML.BAG IVPB ONE (05:58)
[2024-10-04 06:03] LABS: Glucose,Whole Blood 114 mg/dL (70-110)
[2024-10-04] MEDS: 1: MVI, ADULT NO.4 WITH VIT K 10 ML, TRACE (CONC-1ML/DOSE) 1 ML, CALCIUM GLUCONATE 1 GM, IV SCH ×2 (07:04→10:03)
[2024-10-04 07:13] LABS: Basophils # (A) 0.07 10*3/uL (0.00-0.10); Basophils % (A) 0.5 %; Eosinophils # (A) 0.11 10*3/uL (0.04-0.35); Eosinophils % (A) 0.8 %; HCT 31.6 % (39.6-50.0); HGB 11.2 g/dL (13.0-17.0); Lymphocytes # (A) 0.63 10*3/uL (0.90-5.00); Lymphocytes % (A) 4.6 %; MCH 30.9 pg (27.0-32.0); MCHC 35.4 g/dL (32.0-37.0); MCV 87.1 fL (80.0-97.0); Mean Platelet Volume 11.8 fL (9.5-12.2); Monocytes % (A) 4.4 %; Neutrophils # (A) 11.81 10*3/uL (1.80-7.70); Neutrophils % (A) 86.6 %; Platelet Count 201 10*3/uL (140-440); RBC 3.63 10*6/uL (4.40-5.60); RDW 16.8 % (11.5-14.5); WBC 13.64 10*3/uL (4.50-10.00)
[2024-10-04 11:58] LABS: Glucose,Whole Blood 200 mg/dL (70-110)
[2024-10-04] MEDS: ACETAMINOPHEN IV (For NPO) 1,000 MG in EMPTY BAG 1 BAG IVPB SCH (12:40)
--- NOTE | 2024-10-04 13:47 | P.PN ---
Subjective Progress Note Date: 10/04/24 Principal diagnosis: SMA syndrome, fascial wound dehiscence and acute blood loss anemia This is a 68-year-old white male admitted on 09/09/2024, his chief complaint at the time was nausea vomiting and diarrhea. Patient was seen by surgery on consultation, he was seen on 09/10/2024, felt that the patient has intractable nausea and vomiting, he had history of esophageal dysmotility disorder, hiatal hernia, and esophagitis. On 09/12 patient underwent EGD, there was no evidence of gastric obstruction, there was a few clots around the PEG tube, there was no active bleeding, patient was found to have a small hiatal hernia at the GE junction, distal esophagus was normal. 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 Last night, patient developed wound dehiscence and he was having significant amount of bleeding from the surgical site/wound dehiscence. Patient required a total of 4 units of packed RBCs and required 2 units of fresh frozen plasma. Today patient underwent surgical repair of his fascial dehiscence with intraperitoneal blood clots related to previous bleeding from abdominal wall. His bleeding was surgically controlled, however considering the amount of bleeding that the patient had in the last 24 hours, I was asked to admit the patient to the ICU for monitoring for the next 24 hours. I saw the patient in the recovery room, he was noted to be hemodynamically stable, moaning and groaning because of some discomfort in his surgical site. Otherwise patient was not in any distress, and he was mostly on nasal cannula. Labs this morning before the last 2 units of packed RBCs given his hemoglobin was 6.3 WBC count 19 electrolytes are normal renal profile is normal Seen today on 10/04/2024, patient is doing well, no further bleeding from his surgical wound, patient is hemodynamically stable, continues to have chronic pain, no shortness of breath no cough no wheezing WBC count is 13.6 hemoglobin 11.2 electrolytes are normal renal profile is normal patient received a total of 5 units of packed RBCs and 2 units of fresh frozen plasma since this admission his hemoglobin today is 11.2. Objective - Vital Signs Vital signs: Vital Signs Temp 97.7 F 10/04/24 12:00 Pulse 109 H 10/04/24 12:00 Resp 16 10/04/24 12:00 BP 120/80 10/04/24 12:00 Pulse Ox 95 10/04/24 12:00 FiO2 Intake & Output 10/03/24 10/04/24 10/04/24 18:59 06:59 18:59 Intake Total 3528 180 100 Output Total 1275 1740 830 Balance 2253 -1560 -730 Weight 64.4 kg Intake: IV 1615 180 100 Mvi, Adult No.4 with Vit 480 80 K 10 ml Trace (Conc-1Ml/ Dose) 1 ml Calcium Gluconate 1 gm Potassium Acetate 46 meq Magnesium Sulfate gm 0.5 gm Potassium Phosphate 9 mmol In Amino Acids 5 %/ Dextrose 20 % 1,000 ml @ 80 mls/hr IV .BY DURATION [facility] Rx#:[id number] Piperacillin-Tazobactam 3 75 100 100 .375 gm In Sodium Chloride 0.9% 100 ml @ 25 mls/hr IVPB Q8H [facility] Rx#: [id number] Sodium Phosphate 30 mmol 260 In Dextrose 5% in Water 250 ml @ 65 mls/hr IVPB ONCE ONE Rx#:[id number] Blood Product 1913 Ffp 24 Cpd Unit 335 [id number] Ffp 24 Cpd Unit 338 [id number] Rc As-1 Unit 310 [id number] Rc As-1 Unit 310 [id number] Rc As-1 Unit 310 [id number] Rc As-1 Unit 310 [id number] Output: Gastric Drainage 325 60 Urine 850 1680 830 Estimated Blood Loss 100 Other: Voiding Method Indwelling Catheter Indwelling Catheter Indwelling Catheter - Exam GENERAL: Revealed a 68-year-old white male, in no distress, on room air HEENT: Pupils are round and equally reacting to light. EOMI. No scleral icterus. No conjunctival pallor. Normocephalic, atraumatic. No pharyngeal erythema. No thyromegaly. CARDIOVASCULAR: S1 and S2 present. No murmurs, rubs, or gallops. PULMONARY: Chest is clear to auscultation, no wheezing , no crackles. -ABDOMEN: Soft, nontender, nondistended, normoactive bowel sounds. No palpable organomegaly. Surgical site seems to be clean MUSCULOSKELETAL: No joint swelling or deformity. EXTREMITIES: No cyanosis, clubbing, or pedal edema. NEUROLOGICAL: No gross focal neurologic deficit SKIN: No rashes. no petechiae. - Labs CBC & Chem 7: 10/04/24 06:57 10/04/24 04:46 Labs: Abnormal Lab Results - Last 24 Hours (Table) 10/03/24 10/03/24 10/03/24 Range/Units 02:38 17:25 23:29 WBC 14.20 H (4.50-10.00) 10*3/uL RBC 3.53 L (4.40-5.60) 10*6/uL Hgb 10.9 L D (13.0-17.0) g/dL Hct 31.6 L (39.6-50.0) % MPV 12.6 H (9.5-12.2) fL Immature Gran # (0.00-0.04) 10*3/uL Neutrophils # (1.80-7.70) 10*3/uL Lymphocytes # (0.90-5.00) 10*3/uL Chloride (98-107) mmol/L BUN (9-20) mg/dL Glucose (74-99) mg/dL POC Glucose (mg/dL) 174 H (70-110) mg/dL Calcium (8.4-10.2) mg/dL Crossmatch See Detail 10/04/24 10/04/24 10/04/24 Range/Units 04:46 06:01 06:57 WBC 13.64 H (4.50-10.00) 10*3/uL RBC 3.63 L (4.40-5.60) 10*6/uL Hgb 11.2 L (13.0-17.0) g/dL Hct 31.6 L (39.6-50.0) % MPV (9.5-12.2) fL Immature Gran # 0.42 H (0.00-0.04) 10*3/uL Neutrophils # 11.81 H (1.80-7.70) 10*3/uL Lymphocytes # 0.63 L (0.90-5.00) 10*3/uL Chloride 111 H (98-107) mmol/L BUN 24 H (9-20) mg/dL Glucose 172 H (74-99) mg/dL POC Glucose (mg/dL) 114 H (70-110) mg/dL Calcium 7.2 L (8.4-10.2) mg/dL Crossmatch 10/04/24 Range/Units 11:56 WBC (4.50-10.00) 10*3/uL RBC (4.40-5.60) 10*6/uL Hgb (13.0-17.0) g/dL Hct (39.6-50.0) % MPV (9.5-12.2) fL Immature Gran # (0.00-0.04) 10*3/uL Neutrophils # (1.80-7.70) 10*3/uL Lymphocytes # (0.90-5.00) 10*3/uL Chloride (98-107) mmol/L BUN (9-20) mg/dL Glucose (74-99) mg/dL POC Glucose (mg/dL) 200 H (70-110) mg/dL Calcium (8.4-10.2) mg/dL Crossmatch Assessment and Plan Assessment: Impression: SMA syndrome status post gastrojejunostomy and J-tube placement on 09/25 Status post repair of fascial dehiscence on 10/03/2024 Acute blood loss anemia from fascial dehiscence requiring surgical repair 10/03/2024 Intractable nausea vomiting and upper GI bleed secondary to above improvement Bilateral aspiration pneumonia suspected Hyponatremia Recurrent nausea vomiting, intractable requiring PEG tube placement during last admission. Epigastric pain and tenderness could be secondary to gastritis, status post Roex-en-Y gastrojejunostomy. S/p J-tube placement Severe calorie protein malnutrition Hypernatremia, improved Sinus tachycardia versus SVT requiring metoprolol clonidine patch, better controlled Elevated troponin could be secondary to SVT related dehydration, evaluated by cardiology during last admission Hypertension Hyperlipidemia Anxiety/depression, not on active issue History of hiatal hernia Recommendation: Transfer patient to medical surgical floor Continue present supportive care measures Continue Protonix Continue Reglan as needed Continue nutritional support Continue GI and DVT prophylaxis Will continue to follow Time with Patient: Less than 30
--- NOTE | 2024-10-04 14:22 | P.PN ---
Subjective Progress Note Date: 10/04/24 SURGICAL PROGRESS NOTE CHIEF COMPLAINT: Recurrent nausea and vomiting HISTORY OF PRESENT ILLNESS: Postop day #1 status post repair of fascial dehiscence upper incision of the midline incision. Postop day #10 status post Rickie-en-Y gastrojejunostomy. Yesterday patient taken to the OR due to significant bleeding from incision site with a fascial dehiscence. He is status post repair. He did require 4 units of PRBCs and 2 units of FFP. Hemoglobin has improved at 11.2. Vitals are stable. WBC is 13. Patient has been downgraded to medical floor. PEG tube remains to drainage. Patient does report pain at incision site. No vomiting or spitting up noted. Afebrile. Heart rate 109. WBC 13.64 Hgb 11.2 platelets 201 Patient seen and examined with Dr. Pavon PHYSICAL EXAM: VITAL SIGNS: Reviewed. GENERAL: Well-developed in no acute distress. ABDOMEN: Soft. Nondistended. Midline incisional dressing clean dry and intact PEG tube to drainage with bilious output. NEUROLOGIC: Alert and oriented. Cranial nerves II through XII grossly intact. ASSESSMENT: 1. SMA syndrome 2. Upper GI bleed with bright red blood and coffee-ground emesis. now resolved 3. Intractable nausea and vomiting 4. History of esophageal dysmotility disorder 5. Hiatal hernia 6. Esophagitis 7. Severe protein calorie malnutrition 8. Leukocytosis is reactive from surgery 9. Anemia secondary to malnutrition. 10. Fascial dehiscence of incision status post repair PLAN: -Keep patient n.p.o. until bowel function occurs -IV Tylenol added to help with pain management. -Continue TPN for nutrition support -keep peg tube to drainage -Continue antibiotics -DVT prophylaxis subcu heparin - Dr. Pavon will be out of town starting tomorrow. Dr. Lovett will be picking up coverage starting 10/07/2024. Physician Operations Superintendent note has been reviewed by physician. Signing provider agrees with the documented findings, assessment, and plan of care. Objective - Vital Signs Vital signs: Vital Signs Temp 97.7 F 10/04/24 12:00 Pulse 109 H 10/04/24 12:00 Resp 16 10/04/24 12:00 BP 120/80 10/04/24 12:00 Pulse Ox 95 10/04/24 12:00 FiO2 Intake & Output 05/01/25 05/02/25 05/02/25 18:59 06:59 18:59 Intake Total 3528 180 100 Output Total 5405 1740 865 Balance 2253 -6460 -315 Weight 64.4 kg Intake: IV 1615 180 100 Mvi, Adult No.4 with Vit 480 80 K 10 ml Trace (Conc-1Ml/ Dose) 1 ml Calcium Gluconate 1 gm Potassium Acetate 46 meq Magnesium Sulfate gm 0.5 gm Potassium Phosphate 9 mmol In Amino Acids 5 %/ Dextrose 20 % 1,000 ml @ 80 mls/hr IV .BY DURATION [facility] Rx#:[id number] Piperacillin-Tazobactam 3 75 100 100 .375 gm In Sodium Chloride 0.9% 100 ml @ 25 mls/hr IVPB Q8H [facility] Rx#: [id number] Sodium Phosphate 30 mmol 260 In Dextrose 5% in Water 250 ml @ 65 mls/hr IVPB ONCE ONE Rx#:[id number] Blood Product 1913 Ffp 24 Cpd Unit 335 [id number] Ffp 24 Cpd Unit 338 [id number] Rc As-1 Unit 310 [id number] Rc As-1 Unit 310 [id number] Rc As-1 Unit 310 [id number] Rc As-1 Unit 310 [id number] Output: Gastric Drainage 325 60 Urine 850 1680 865 Estimated Blood Loss 100 Other: Voiding Method Indwelling Catheter Indwelling Catheter Indwelling Catheter - Labs CBC & Chem 7: 10/04/24 06:57 10/04/24 04:46 Labs: Abnormal Lab Results - Last 24 Hours (Table) 10/03/24 10/03/24 10/03/24 Range/Units 02:38 17:25 23:29 WBC 14.20 H (4.50-10.00) 10*3/uL RBC 3.53 L (4.40-5.60) 10*6/uL Hgb 10.9 L D (13.0-17.0) g/dL Hct 31.6 L (39.6-50.0) % MPV 12.6 H (9.5-12.2) fL Immature Gran # (0.00-0.04) 10*3/uL Neutrophils # (1.80-7.70) 10*3/uL Lymphocytes # (0.90-5.00) 10*3/uL Chloride (98-107) mmol/L BUN (9-20) mg/dL Glucose (74-99) mg/dL POC Glucose (mg/dL) 174 H (70-110) mg/dL Calcium (8.4-10.2) mg/dL Crossmatch See Detail 10/04/24 10/04/24 10/04/24 Range/Units 04:46 06:01 06:57 WBC 13.64 H (4.50-10.00) 10*3/uL RBC 3.63 L (4.40-5.60) 10*6/uL Hgb 11.2 L (13.0-17.0) g/dL Hct 31.6 L (39.6-50.0) % MPV (9.5-12.2) fL Immature Gran # 0.42 H (0.00-0.04) 10*3/uL Neutrophils # 11.81 H (1.80-7.70) 10*3/uL Lymphocytes # 0.63 L (0.90-5.00) 10*3/uL Chloride 111 H (98-107) mmol/L BUN 24 H (9-20) mg/dL Glucose 172 H (74-99) mg/dL POC Glucose (mg/dL) 114 H (70-110) mg/dL Calcium 7.2 L (8.4-10.2) mg/dL Crossmatch 10/04/24 Range/Units 11:56 WBC (4.50-10.00) 10*3/uL RBC (4.40-5.60) 10*6/uL Hgb (13.0-17.0) g/dL Hct (39.6-50.0) % MPV (9.5-12.2) fL Immature Gran # (0.00-0.04) 10*3/uL Neutrophils # (1.80-7.70) 10*3/uL Lymphocytes # (0.90-5.00) 10*3/uL Chloride (98-107) mmol/L BUN (9-20) mg/dL Glucose (74-99) mg/dL POC Glucose (mg/dL) 200 H (70-110) mg/dL Calcium (8.4-10.2) mg/dL Crossmatch
--- NOTE | 2024-10-04 16:44 | P.PN ---
Subjective Patient is seen for follow-up for hypernatremia. He is maintained on TPN. Status post repair of fascial dehiscence on 10/03/2024. Patient is currently in the ICU. He had significant bleeding and hemoglobin dropped to 6.3 g/dL. Status post 3 units packed RBCs. Hemoglobin is 11.2 today. Sodium is 142 today. Sodium was restarted in TPN yesterday. Objective - Vital Signs Vital signs: Vital Signs Temp 97.7 F 10/04/24 12:00 Pulse 77 10/04/24 16:00 Resp 10 L 10/04/24 16:00 BP 111/81 10/04/24 16:00 Pulse Ox 98 10/04/24 16:00 FiO2 Intake & Output 10/03/24 10/04/24 10/04/24 18:59 06:59 18:59 Intake Total 3528 180 100 Output Total 1275 1740 940 Balance 2253 -1560 -840 Weight 64.4 kg 64.4 kg Intake: IV 1615 180 100 Mvi, Adult No.4 with Vit 480 80 K 10 ml Trace (Conc-1Ml/ Dose) 1 ml Calcium Gluconate 1 gm Potassium Acetate 46 meq Magnesium Sulfate gm 0.5 gm Potassium Phosphate 9 mmol In Amino Acids 5 %/ Dextrose 20 % 1,000 ml @ 80 mls/hr IV .BY DURATION [facility] Rx#:[id number] Piperacillin-Tazobactam 3 75 100 100 .375 gm In Sodium Chloride 0.9% 100 ml @ 25 mls/hr IVPB Q8H [facility] Rx#: [id number] Sodium Phosphate 30 mmol 260 In Dextrose 5% in Water 250 ml @ 65 mls/hr IVPB ONCE ONE Rx#:[id number] Blood Product 1913 Ffp 24 Cpd Unit 335 [id number] Ffp 24 Cpd Unit 338 [id number] Rc As-1 Unit 310 [id number] Rc As-1 Unit 310 [id number] Rc As-1 Unit 310 [id number] Rc As-1 Unit 310 [id number] Output: Gastric Drainage 325 60 Urine 850 1680 940 Estimated Blood Loss 100 Other: Voiding Method Indwelling Catheter Indwelling Catheter Indwelling Catheter - Exam Patient is awake, comfortable, no acute fracture Examination of the heart S1 and S2 Examination of the lungs bilateral breath sounds are heard Abdomen is soft, dressed Examination of lower extremities shows trace edema SUPPLY SPECIALIST exam grossly intact patient is moving all 4 extremities. - Labs CBC & Chem 7: 10/04/24 06:57 10/04/24 04:46 Labs: Abnormal Lab Results - Last 24 Hours (Table) 10/03/24 10/03/24 10/04/24 Range/Units 17:25 23:29 04:46 WBC 14.20 H (4.50-10.00) 10*3/uL RBC 3.53 L (4.40-5.60) 10*6/uL Hgb 10.9 L D (13.0-17.0) g/dL Hct 31.6 L (39.6-50.0) % MPV 12.6 H (9.5-12.2) fL Immature Gran # (0.00-0.04) 10*3/uL Neutrophils # (1.80-7.70) 10*3/uL Lymphocytes # (0.90-5.00) 10*3/uL Chloride 111 H (98-107) mmol/L BUN 24 H (9-20) mg/dL Glucose 172 H (74-99) mg/dL POC Glucose (mg/dL) 174 H (70-110) mg/dL Calcium 7.2 L (8.4-10.2) mg/dL 10/04/24 10/04/24 10/04/24 Range/Units 06:01 06:57 11:56 WBC 13.64 H (4.50-10.00) 10*3/uL RBC 3.63 L (4.40-5.60) 10*6/uL Hgb 11.2 L (13.0-17.0) g/dL Hct 31.6 L (39.6-50.0) % MPV (9.5-12.2) fL Immature Gran # 0.42 H (0.00-0.04) 10*3/uL Neutrophils # 11.81 H (1.80-7.70) 10*3/uL Lymphocytes # 0.63 L (0.90-5.00) 10*3/uL Chloride (98-107) mmol/L BUN (9-20) mg/dL Glucose (74-99) mg/dL POC Glucose (mg/dL) 114 H 200 H (70-110) mg/dL Calcium (8.4-10.2) mg/dL Assessment and Plan Assessment: 1. Hypernatremia from lack of oral water intake. Sodium level 142 today. Sodium was restarted in TPN yesterday when sodium was 135. This will be reduced to half today. 2. SMA syndrome. Surgery following. 3. Status post J-tube placement September 25, 2024. 4. Hypokalemia from poor intake. Being replaced. 5. Fascial dehiscence with bleeding status post repair on 10/03/2024 Plan: Decrease sodium in TPN to half the amount and repeat labs in a.m.
[2024-10-04 18:03] LABS: Glucose,Whole Blood 172 mg/dL (70-110)
--- NOTE | 2024-10-04 22:43 | P.PN ---
Subjective This is a pleasant 68 years old male who was recently discharged from this facility about 4 days ago for nausea vomiting and malnutrition status post PEG tube placement by surgery team. Once he been discharged he started having recurrent nausea vomiting again, he vomited 6 times since yesterday with no blood. Associated with epigastric pain and tenderness His troponin was elevated but EKG showing SVT. He has been evaluated by tanker driver as well during last admission for elevated troponin. Currently denies chest pain or dyspnea. No specific urinary symptoms. No headache dizziness weakness or numbness He is pain mainly in the epigastric area about 9/10 felt like squeezing nonradiating with no precipitating or relieving factors. He states that the pain is similar to last time. He has no bowel movement. He is using the PEG tube at home. He got Zofran 4 mg and is requesting more medicine He is hemodynamically stable and afebrile He has unremarkable CBC, BMP, LFT. WBC is mildly elevated at 10.4 at 11. Lactic acid 4.6 came back to normal at 1.7. Troponin is elevated 0.065. KUB showing nonspecific gas bowel pattern. EKG showed SVT with a rate of [address] depression in V3-V5 Patient lying in bed with no dyspnea or chest pain He is vomiting of blood today. He still has nausea vomiting. He was on Zofran 8 mg we will going to add Reglan IV 5 and then 10 mg. hemoglobin stable at 12.4 with slight improvement. Vital stable. He is not on any blood thinners or aspirin. His on Protonix IV twice daily added today Also we added D5 normal saline Discussed the case with surgery team. CT of the abdomen pelvis with IV contrast is requested. Currently patient denies any abdominal pain or epigastric tenderness. 4/10 No vomiting today, looks tired No abdominal pain or tenderness PEG tube is in place and feeding tube on hold He still getting IV fluids and Zosyn Plan for EGD today with surgery team given his hematemesis yesterday. Hemoglobin was stable yesterday at 11.3 Monitor hemoglobin Continue with Protonix He is getting Reglan [id number] which prevent him from vomiting 09/25 i came to see the pt twice and he was no in his room 09/26 Patient seen and examined at bedside. He is awake and alert ,he is status post Roex-en-Y gastrojejunostomy. Today postop day #1 He still complaining from epigastric pain and mild tenderness with PEG tube placement to gravity. Patient is not getting tube feeding Patient is getting D5W at 100 mL/h, sodium improved 150 down to 146 today Also patient is getting Zosyn WBC 16.1, hemoglobin 8.4 and sodium 146 Is getting Reglan 5 mg as needed will added 10 mg 09/27 Patient remains with GI symptoms. PEG tube to gravity and patient received TPN. Still with nausea and some abdominal/epigastric pain and tenderness although partially improved. No other new complaint. Labs look stable or slightly improving with sodium 147, hemoglobin 13 and WBC down to 11.3 Nephrology consult was obtained Patient started on normal saline at 100 mL/h and D5W was stopped 09/28 Patient states he is the same over the last 2 days he still have some epigastric pain and tenderness which looks the same also he has some nausea and vomiting although he was taking Reglan. Also patient WBC went up to 13.3. Hemoglobin down to 9.3 Sodium 148 potassium 3.1 Replace potassium per protocol Started on D5W at give Ativan x 1 to help with anxiety and with nausea vomiting 09/29 Patient developed significant tachycardia last night and this morning with heart rate going up to 150 and 160/min. EKG showing sinus tachycardia. Heart rate improved down to 100 and blood pressure stable with systolic 120-150 It is thought multifactorial secondary to anxiety dehydration infection electrolyte abnormalities and pain. D-dimer is ordered but the suspicion for PE is low Patient with no chest pain or dyspnea, actually patient this is the first time he told me he feels better since I saw him from admission. He was sitting in chair with slight weakness. He still getting TPN Zosyn. He getting D5W at 50 mL/h but sodium increased to 152 so increase the dose to 125 mL/h Dilaudid added IV Lopressor 5 mg every 8 hours and clonidine patch 0.1 mg Also low potassium and magnesium being replaced. 09/30 Patient is lethargic today with some nausea. He denies epigastric abdominal pain. He is still tachycardic with heart around 120 WBC is 14.5, hemoglobin 9.6 and He remains on D5W at 125 Eliquis dose lowered to 2.5 10/01 Patient today feels improved and better he denies chest pain or dyspnea no epigastric pain or tenderness significant than the other days. PEG tube still in place but not working. Still getting TPN He still tachycardic and blood pressure still slightly on the high side, he got 3 doses of Lopressor 5 mg IV yesterday, we will going to increase his clonidine patch 0.2 up to 0.3. He has CTA of the chest done yesterday for suspicion of PE, no pulm embolism found however there is lung nodule 1.1 cm that he needs follow-up in 3 months for report also there is bilateral groundglass opacities and nodular lesions suspicious for pneumonia versus aspiration pneumonia versus cryptogenic o rganizing pneumonia. Also there is retained material or secretions or food in the lower esophagus which cause more with aspiration pneumonitis. Patient remains on IV Protonix for esophagitis Therefore patient remains on IV Zosyn. Low potassium but replace per protocol today The other thing his hypernatremia significantly improved 122 yesterday and 124 today while he is on D5 W at 75 mL today compared to 125 yesterday Check labs in the morning 10/02 Today patient feels tired weak and sweaty Blood pressure is low normal, became slightly tachycardic 115. His heart rate is getting controlled with the clonidine patch 0.3 mg and now requiring only once daily dose of IV Lopressor 5 mg over the last 2 days. His albumin is 2.0. His sodium 138 he remains on D5W. He is still getting TPN Will give IV albumin 25 % x 1 Hemoglobin 9.1 10/03 Patient developed severe bleeding from his epigastric wound and his abdominal wall with hemoglobin dropped down to 6.8 and 6.3 received several units of blood transfusion. He was taking to the operating room emergently by surgery team and the bleeding was stopped and the wound was sutured again. After that patient was taken to the ICU Objective - Vital Signs Vital signs: Vital Signs Temp 98.1 F 10/03/24 12:37 Pulse 102 H 10/03/24 12:37 Resp 18 10/03/24 12:37 BP 82/54 10/03/24 12:37 Pulse Ox 98 10/03/24 12:37 FiO2 Intake & Output 10/02/24 10/03/24 10/03/24 18:59 06:59 18:59 Intake Total 1048 2403 Output Total 100 Balance 1048 2303 Weight 59 kg Intake: IV 800 Intake, IV Titration 1048 Amount Mvi, Adult No.4 with Vit 1048 K 10 ml Trace (Conc-1Ml/ Dose) 1 ml Calcium Gluconate 1 gm Potassium Acetate 46 meq Magnesium Sulfate gm 0.5 gm Potassium Phosphate 9 mmol In Amino Acids 5 %/ Dextrose 20 % 1,000 ml @ 80 mls/hr IV .BY DURATION [facility] Rx#:[id number] Blood Product 1603 Ffp 24 Cpd Unit 335 [id number] Ffp 24 Cpd Unit 338 [id number] Rc As-1 Unit 0 [id number] Rc As-1 Unit 310 [id number] Rc As-1 Unit 310 [id number] Rc As-1 Unit 310 [id number] Output: Estimated Blood Loss 100 Other: Voiding Method Urinal Urinal Diaper Diaper Incontinent Incontinent # Voids 3 - Exam -GENERAL: The patient is alert and oriented x3, not in any acute distress. Well developed, well nourished. Thin built HEENT: Pupils are round and equally reacting to light. EOMI. No scleral icterus. No conjunctival pallor. Normocephalic, atraumatic. No pharyngeal erythema. No thyromegaly. CARDIOVASCULAR: S1 and S2 present. No murmurs, rubs, or gallops. PULMONARY: Chest is clear to auscultation, no wheezing , no crackles. -ABDOMEN: Soft, nontender, nondistended, normoactive bowel sounds. No palpable organomegaly. PEG tube is in place with no Abdominal tenderness or guarding MUSCULOSKELETAL: No joint swelling or deformity. EXTREMITIES: No cyanosis, clubbing, or pedal edema. NEUROLOGICAL: Gross neurological examination did not reveal any focal deficits. SKIN: No rashes. no petechiae. - Labs CBC & Chem 7: 10/04/24 06:57 10/04/24 04:46 Labs: Abnormal Lab Results - Last 24 Hours (Table) 10/02/24 10/02/24 10/03/24 Range/Units 18:01 23:54 00:50 WBC 19.42 H (4.50-10.00) 10*3/uL RBC 2.19 L (4.40-5.60) 10*6/uL Hgb 6.8 L* D (13.0-17.0) g/dL Hct 21.0 L (39.6-50.0) % MPV 12.7 H (9.5-12.2) fL Immature Gran # (0.00-0.04) 10*3/uL Neutrophils # (Manual) (1.3-7.7) k/uL Metamyelocytes # (Man) (0) k/uL Myelocytes # (Manual) (0) k/uL Sodium (137-145) mmol/L BUN (9-20) mg/dL Glucose (74-99) mg/dL POC Glucose (mg/dL) 156 H 200 H (70-110) mg/dL Calcium (8.4-10.2) mg/dL Phosphorus (2.5-4.5) mg/dL Crossmatch 10/03/24 10/03/24 10/03/24 Range/Units 02:37 02:37 02:38 WBC 19.08 H (4.50-10.00) 10*3/uL RBC 1.99 L (4.40-5.60) 10*6/uL Hgb 6.3 L* (13.0-17.0) g/dL Hct 19.3 L* (39.6-50.0) % MPV (9.5-12.2) fL Immature Gran # 1.09 H (0.00-0.04) 10*3/uL Neutrophils # (Manual) 17.55 H (1.3-7.7) k/uL Metamyelocytes # (Man) 0.19 H (0) k/uL Myelocytes # (Manual) 0.19 H (0) k/uL Sodium 135 L (137-145) mmol/L BUN 27 H (9-20) mg/dL Glucose 153 H (74-99) mg/dL POC Glucose (mg/dL) (70-110) mg/dL Calcium 7.7 L (8.4-10.2) mg/dL Phosphorus 1.5 L (2.5-4.5) mg/dL Crossmatch See Detail 10/03/24 10/03/24 Range/Units 06:02 08:42 WBC (4.50-10.00) 10*3/uL RBC (4.40-5.60) 10*6/uL Hgb (13.0-17.0) g/dL Hct (39.6-50.0) % MPV (9.5-12.2) fL Immature Gran # (0.00-0.04) 10*3/uL Neutrophils # (Manual) (1.3-7.7) k/uL Metamyelocytes # (Man) (0) k/uL Myelocytes # (Manual) (0) k/uL Sodium (137-145) mmol/L BUN (9-20) mg/dL Glucose (74-99) mg/dL POC Glucose (mg/dL) 178 H 149 H (70-110) mg/dL Calcium (8.4-10.2) mg/dL Phosphorus (2.5-4.5) mg/dL Crossmatch Assessment and Plan Assessment: SMA syndrome status post gastrojejunostomy and J-tube placement on 09/25 Intractable nausea vomiting and upper GI bleed secondary to above improvement Fascial wound dehiscence on 10/03 status post emergent surgical repair requiring multiple blood transfusion Bilateral aspiration pneumonia suspected Hyponatremia Recurrent nausea vomiting, intractable requiring PEG tube placement during last admission. Epigastric pain and tenderness could be secondary to gastritis, status post Roex-en-Y gastrojejunostomy. S/p J-tube placement Severe calorie protein malnutrition Hypernatremia, improved Sinus tachycardia versus SVT requiring metoprolol clonidine patch, better controlled Elevated troponin could be secondary to SVT related dehydration, evaluated by cardiology during last admission Hypertension Hyperlipidemia Anxiety/depression, not on active issue Distal esophagitis Hiatal hernia seen on recent EKG Plan: Patient was transferred to the ICU Critical team consult S/p J-tube placement Continue with Reglan as needed 10 mg Continue with Protonix Start IV Lopressor 5 mg 3 times daily and clonidine patch 0.1 mg and monitor heart rate Continues with J-tube, currently on hold in place to gravity Surgical team consult with patient status post EGD on 09/12. Nutrition consult Resume home medication Labs and medication were reviewed.. Continue same treatment. Continue with symptomatic treatment. Resume home medication. Monitor labs and vitals. DVT and GI prophylaxis. Further recommendations as per clinical course of the patient DVT prophylaxis: no Subcutaneous heparin. Continue with mechanical GI Prophylaxis: Protonix Prognosis is guarded
--- NOTE | 2024-10-04 22:45 | P.PN ---
Subjective This is a pleasant 68 years old male who was recently discharged from this facility about 4 days ago for nausea vomiting and malnutrition status post PEG tube placement by surgery team. Once he been discharged he started having recurrent nausea vomiting again, he vomited 6 times since yesterday with no blood. Associated with epigastric pain and tenderness His troponin was elevated but EKG showing SVT. He has been evaluated by body mechanic apprentice as well during last admission for elevated troponin. Currently denies chest pain or dyspnea. No specific urinary symptoms. No headache dizziness weakness or numbness He is pain mainly in the epigastric area about 9/10 felt like squeezing nonradiating with no precipitating or relieving factors. He states that the pain is similar to last time. He has no bowel movement. He is using the PEG tube at home. He got Zofran 4 mg and is requesting more medicine He is hemodynamically stable and afebrile He has unremarkable CBC, BMP, LFT. WBC is mildly elevated at 10.4 at 11. Lactic acid 4.6 came back to normal at 1.7. Troponin is elevated 0.065. KUB showing nonspecific gas bowel pattern. EKG showed SVT with a rate of [address] depression in V3-V5 Patient lying in bed with no dyspnea or chest pain He is vomiting of blood today. He still has nausea vomiting. He was on Zofran 8 mg we will going to add Reglan IV 5 and then 10 mg. hemoglobin stable at 12.4 with slight improvement. Vital stable. He is not on any blood thinners or aspirin. His on Protonix IV twice daily added today Also we added D5 normal saline Discussed the case with surgery team. CT of the abdomen pelvis with IV contrast is requested. Currently patient denies any abdominal pain or epigastric tenderness. 4/10 No vomiting today, looks tired No abdominal pain or tenderness PEG tube is in place and feeding tube on hold He still getting IV fluids and Zosyn Plan for EGD today with surgery team given his hematemesis yesterday. Hemoglobin was stable yesterday at 11.3 Monitor hemoglobin Continue with Protonix He is getting Reglan [id number] which prevent him from vomiting 09/25 i came to see the pt twice and he was no in his room 09/26 Patient seen and examined at bedside. He is awake and alert ,he is status post Roex-en-Y gastrojejunostomy. Today postop day #1 He still complaining from epigastric pain and mild tenderness with PEG tube placement to gravity. Patient is not getting tube feeding Patient is getting D5W at 100 mL/h, sodium improved 150 down to 146 today Also patient is getting Zosyn WBC 16.1, hemoglobin 8.4 and sodium 146 Is getting Reglan 5 mg as needed will added 10 mg 09/27 Patient remains with GI symptoms. PEG tube to gravity and patient received TPN. Still with nausea and some abdominal/epigastric pain and tenderness although partially improved. No other new complaint. Labs look stable or slightly improving with sodium 147, hemoglobin 13 and WBC down to 11.3 Nephrology consult was obtained Patient started on normal saline at 100 mL/h and D5W was stopped 09/28 Patient states he is the same over the last 2 days he still have some epigastric pain and tenderness which looks the same also he has some nausea and vomiting although he was taking Reglan. Also patient WBC went up to 13.3. Hemoglobin down to 9.3 Sodium 148 potassium 3.1 Replace potassium per protocol Started on D5W at give Ativan x 1 to help with anxiety and with nausea vomiting 09/29 Patient developed significant tachycardia last night and this morning with heart rate going up to 150 and 160/min. EKG showing sinus tachycardia. Heart rate improved down to 100 and blood pressure stable with systolic 120-150 It is thought multifactorial secondary to anxiety dehydration infection electrolyte abnormalities and pain. D-dimer is ordered but the suspicion for PE is low Patient with no chest pain or dyspnea, actually patient this is the first time he told me he feels better since I saw him from admission. He was sitting in chair with slight weakness. He still getting TPN Zosyn. He getting D5W at 50 mL/h but sodium increased to 152 so increase the dose to 125 mL/h Dilaudid added IV Lopressor 5 mg every 8 hours and clonidine patch 0.1 mg Also low potassium and magnesium being replaced. 09/30 Patient is lethargic today with some nausea. He denies epigastric abdominal pain. He is still tachycardic with heart around 120 WBC is 14.5, hemoglobin 9.6 and He remains on D5W at 125 Eliquis dose lowered to 2.5 10/01 Patient today feels improved and better he denies chest pain or dyspnea no epigastric pain or tenderness significant than the other days. PEG tube still in place but not working. Still getting TPN He still tachycardic and blood pressure still slightly on the high side, he got 3 doses of Lopressor 5 mg IV yesterday, we will going to increase his clonidine patch 0.2 up to 0.3. He has CTA of the chest done yesterday for suspicion of PE, no pulm embolism found however there is lung nodule 1.1 cm that he needs follow-up in 3 months for report also there is bilateral groundglass opacities and nodular lesions suspicious for pneumonia versus aspiration pneumonia versus cryptogenic o rganizing pneumonia. Also there is retained material or secretions or food in the lower esophagus which cause more with aspiration pneumonitis. Patient remains on IV Protonix for esophagitis Therefore patient remains on IV Zosyn. Low potassium but replace per protocol today The other thing his hypernatremia significantly improved 122 yesterday and 124 today while he is on D5 W at 75 mL today compared to 125 yesterday Check labs in the morning 10/02 Today patient feels tired weak and sweaty Blood pressure is low normal, became slightly tachycardic 115. His heart rate is getting controlled with the clonidine patch 0.3 mg and now requiring only once daily dose of IV Lopressor 5 mg over the last 2 days. His albumin is 2.0. His sodium 138 he remains on D5W. He is still getting TPN Will give IV albumin 25 % x 1 Hemoglobin 9.1 10/03 Patient developed severe bleeding from his epigastric wound and his abdominal wall with hemoglobin dropped down to 6.8 and 6.3 received several units of blood transfusion. He was taking to the operating room emergently by surgery team and the bleeding was stopped and the wound was sutured again. After that patient was taken to the ICU Objective - Vital Signs Vital signs: Vital Signs Temp 97.7 F 10/04/24 12:00 Pulse 109 H 10/04/24 12:00 Resp 16 10/04/24 12:00 BP 120/80 10/04/24 12:00 Pulse Ox 95 10/04/24 12:00 FiO2 Intake & Output 10/03/24 10/04/24 10/04/24 18:59 06:59 18:59 Intake Total 3528 180 100 Output Total 1275 1740 830 Balance 2253 -1560 -730 Weight 64.4 kg Intake: IV 1615 180 100 Mvi, Adult No.4 with Vit 480 80 K 10 ml Trace (Conc-1Ml/ Dose) 1 ml Calcium Gluconate 1 gm Potassium Acetate 46 meq Magnesium Sulfate gm 0.5 gm Potassium Phosphate 9 mmol In Amino Acids 5 %/ Dextrose 20 % 1,000 ml @ 80 mls/hr IV .BY DURATION [facility] Rx#:[id number] Piperacillin-Tazobactam 3 75 100 100 .375 gm In Sodium Chloride 0.9% 100 ml @ 25 mls/hr IVPB Q8H [facility] Rx#: [id number] Sodium Phosphate 30 mmol 260 In Dextrose 5% in Water 250 ml @ 65 mls/hr IVPB ON[facility] ONE Rx#:[id number] Blood Product 1913 Ffp 24 Cpd Unit 335 [id number] Ffp 24 Cpd Unit 338 [id number] Rc As-1 Unit 310 [id number] Rc As-1 Unit 310 [id number] Rc As-1 Unit 310 [id number] Rc As-1 Unit 310 [id number] Output: Gastric Drainage 325 60 Urine 850 1680 830 Estimated Blood Loss 100 Other: Voiding Method Indwelling Catheter Indwelling Catheter Indwelling Catheter - Exam -GENERAL: The patient is alert and oriented x3, not in any acute distress. Well developed, well nourished. Thin built HEENT: Pupils are round and equally reacting to light. EOMI. No scleral icterus. No conjunctival pallor. Normocephalic, atraumatic. No pharyngeal erythema. No thyromegaly. CARDIOVASCULAR: S1 and S2 present. No murmurs, rubs, or gallops. PULMONARY: Chest is clear to auscultation, no wheezing , no crackles. -ABDOMEN: Soft, nontender, nondistended, normoactive bowel sounds. No palpable organomegaly. PEG tube is in place with no Abdominal tenderness or guarding MUSCULOSKELETAL: No joint swelling or deformity. EXTREMITIES: No cyanosis, clubbing, or pedal edema. NEUROLOGICAL: Gross neurological examination did not reveal any focal deficits. SKIN: No rashes. no petechiae. - Labs CBC & Chem 7: 10/04/24 06:57 10/04/24 04:46 Labs: Abnormal Lab Results - Last 24 Hours (Table) 10/03/24 10/03/24 10/03/24 Range/Units 02:38 17:25 23:29 WBC 14.20 H (4.50-10.00) 10*3/uL RBC 3.53 L (4.40-5.60) 10*6/uL Hgb 10.9 L D (13.0-17.0) g/dL Hct 31.6 L (39.6-50.0) % MPV 12.6 H (9.5-12.2) fL Immature Gran # (0.00-0.04) 10*3/uL Neutrophils # (1.80-7.70) 10*3/uL Lymphocytes # (0.90-5.00) 10*3/uL Chloride (98-107) mmol/L BUN (9-20) mg/dL Glucose (74-99) mg/dL POC Glucose (mg/dL) 174 H (70-110) mg/dL Calcium (8.4-10.2) mg/dL Crossmatch See Detail 10/04/24 10/04/24 10/04/24 Range/Units 04:46 06:01 06:57 WBC 13.64 H (4.50-10.00) 10*3/uL RBC 3.63 L (4.40-5.60) 10*6/uL Hgb 11.2 L (13.0-17.0) g/dL Hct 31.6 L (39.6-50.0) % MPV (9.5-12.2) fL Immature Gran # 0.42 H (0.00-0.04) 10*3/uL Neutrophils # 11.81 H (1.80-7.70) 10*3/uL Lymphocytes # 0.63 L (0.90-5.00) 10*3/uL Chloride 111 H (98-107) mmol/L BUN 24 H (9-20) mg/dL Glucose 172 H (74-99) mg/dL POC Glucose (mg/dL) 114 H (70-110) mg/dL Calcium 7.2 L (8.4-10.2) mg/dL Crossmatch 10/04/24 Range/Units 11:56 WBC (4.50-10.00) 10*3/uL RBC (4.40-5.60) 10*6/uL Hgb (13.0-17.0) g/dL Hct (39.6-50.0) % MPV (9.5-12.2) fL Immature Gran # (0.00-0.04) 10*3/uL Neutrophils # (1.80-7.70) 10*3/uL Lymphocytes # (0.90-5.00) 10*3/uL Chloride (98-107) mmol/L BUN (9-20) mg/dL Glucose (74-99) mg/dL POC Glucose (mg/dL) 200 H (70-110) mg/dL Calcium (8.4-10.2) mg/dL Crossmatch Assessment and Plan Assessment: SMA syndrome status post gastrojejunostomy and J-tube placement on 09/25 Intractable nausea vomiting and upper GI bleed secondary to above improvement Fascial wound dehiscence on 10/03 status post emergent surgical repair requiring multiple blood transfusion Bilateral aspiration pneumonia suspected Hyponatremia Recurrent nausea vomiting, intractable requiring PEG tube placement during last admission. Epigastric pain and tenderness could be secondary to gastritis, status post Roex-en-Y gastrojejunostomy. S/p J-tube placement Severe calorie protein malnutrition Hypernatremia, improved Sinus tachycardia versus SVT requiring metoprolol clonidine patch, better controlled Elevated troponin could be secondary to SVT related dehydration, evaluated by cardiology during last admission Hypertension Hyperlipidemia Anxiety/depression, not on active issue Distal esophagitis Hiatal hernia seen on recent EKG Plan: Patient was transferred to the ICU Critical team consult S/p J-tube placement Continue with Reglan as needed 10 mg Continue with Protonix Start IV Lopressor 5 mg 3 times daily and clonidine patch 0.1 mg and monitor heart rate Continues with J-tube, currently on hold in place to gravity Surgical team consult with patient status post EGD on 09/12. Nutrition consult Resume home medication Labs and medication were reviewed.. Continue same treatment. Continue with symptomatic treatment. Resume home medication. Monitor labs and vitals. DVT and GI prophylaxis. Further recommendations as per clinical course of the patient DVT prophylaxis: no Subcutaneous heparin. Continue with mechanical GI Prophylaxis: Protonix Prognosis is guarded
[2024-10-04 23:11] LABS: Glucose,Whole Blood 121 mg/dL (70-110)
[2024-10-05 05:50] LABS: Glucose,Whole Blood 163 mg/dL (70-110)
[2024-10-05 07:20] LABS: African American GFR (CKD) >90 (>60 ml/min/1.73 sqM); Anion Gap 8 mmol/L; Blood Urea Nitrogen 24 mg/dL (9-20); Calcium 7.9 mg/dL (8.4-10.2); Carbon Dioxide 24 mmol/L (22-30); Chloride 113 mmol/L (98-107); Glucose 164 mg/dL (74-99); Magnesium 2.2 mg/dL (1.6-2.3); Non-African American GFR(CKD) >90 (>60 ml/min/1.73 sqM); Phosphorus 2.7 mg/dL (2.5-4.5); Potassium 4.5 mmol/L (3.5-5.1); Sodium 145 mmol/L (137-145)
[2024-10-05 11:45] LABS: Glucose,Whole Blood 137 mg/dL (70-110)
--- NOTE | 2024-10-05 12:09 | P.PN ---
Subjective Progress Note Date: 10/05/24 Principal diagnosis: SMA syndrome, fascial wound dehiscence and acute blood loss anemia This is a 68-year-old white male admitted on 09/09/2024, his chief complaint at the time was nausea vomiting and diarrhea. Patient was seen by surgery on consultation, he was seen on 09/10/2024, felt that the patient has intractable nausea and vomiting, he had history of esophageal dysmotility disorder, hiatal hernia, and esophagitis. On 09/12 patient underwent EGD, there was no evidence of gastric obstruction, there was a few clots around the PEG tube, there was no active bleeding, patient was found to have a small hiatal hernia at the GE junction, distal esophagus was normal. 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 Last night, patient developed wound dehiscence and he was having significant amount of bleeding from the surgical site/wound dehiscence. Patient required a total of 4 units of packed RBCs and required 2 units of fresh frozen plasma. Today patient underwent surgical repair of his fascial dehiscence with intraperitoneal blood clots related to previous bleeding from abdominal wall. His bleeding was surgically controlled, however considering the amount of bleeding that the patient had in the last 24 hours, I was asked to admit the patient to the ICU for monitoring for the next 24 hours. I saw the patient in the recovery room, he was noted to be hemodynamically stable, moaning and groaning because of some discomfort in his surgical site. Otherwise patient was not in any distress, and he was mostly on nasal cannula. Labs this morning before the last 2 units of packed RBCs given his hemoglobin was 6.3 WBC count 19 electrolytes are normal renal profile is normal Seen today on 10/04/2024, patient is doing well, no further bleeding from his surgical wound, patient is hemodynamically stable, continues to have chronic pain, no shortness of breath no cough no wheezing WBC count is 13.6 hemoglobin 11.2 electrolytes are normal renal profile is normal patient received a total of 5 units of packed RBCs and 2 units of fresh frozen plasma since this admission his hemoglobin today is 11.2. Seen today on 11/01/2024, patient remains in the ICU he is now on overflow, needs to go to medical surgical floor. On room air, not in any distress. No cough no wheezing no shortness of breath, pain seems to be fairly under control. Labs today were reviewed he had a relatively normal electrolytes drawn normal renal profile blood sugar is 164. Objective - Vital Signs Vital signs: Vital Signs Temp 98.0 F 10/05/24 08:00 Pulse 93 10/05/24 10:00 Resp 25 H 10/05/24 10:00 BP 92/65 10/05/24 10:00 Pulse Ox 95 10/05/24 10:00 FiO2 Intake & Output 10/04/24 10/05/24 10/05/24 18:59 06:59 18:59 Intake Total 200 2590.5 180 Output Total 1035 1425 370 Balance -835 1165.5 -190 Weight 64.4 kg 65 kg Intake: IV 200 200 100 Piperacillin-Tazobactam 3 200 200 100 .375 gm In Sodium Chloride 0.9% 100 ml @ 25 mls/hr IVPB Q8H [facility] Rx#: [id number] Intake, IV Titration 2390.5 80 Amount ACETAMINOPHEN IV (For NPO 200 ) 1,000 mg In Empty Bag 1 bag @ 400 mls/hr IVPB Q6HR [facility] Rx#:[id number] Calcium Gluconate 1 gm 320 80 Potassium Acetate 46 meq Magnesium Sulfate gm 1 gm Potassium Phosphate 18 mmol Sodium Chloride 4Meq /ml Vial 6 meq In Amino Acids 5 %/Dextrose 20 % 1 ,000 ml @ 80 mls/hr IV . BY DURATION [facility] Rx#: [id number] Fat Emulsion 20% 250 ml 147 In Empty Bag 1 bag @ 21 mls/hr IV Q72H [facility] Rx#: [id number] IV Fluid Continuation 1, 110 000 ml @ 0 mls/hr IV .STK -[facility] Rx#:[id number] Mvi, Adult No.4 with Vit 1613.5 K 10 ml Trace (Conc-1Ml/ Dose) 1 ml Calcium Gluconate 1 gm Potassium Acetate 46 meq Magnesium Sulfate gm 1 gm Potassium Phosphate 18 mmol Sodium Chloride 4Meq/ml Vial 6 meq In Amino Acids 5 %/ Dextrose 20 % 1,000 ml @ 80 mls/hr IV .BY DURATION [facility] Rx#:[id number] Output: Gastric Drainage 200 Urine 1035 1225 370 Other: Voiding Method Indwelling Catheter Indwelling Catheter Indwelling Catheter - Exam GENERAL: Revealed a 68-year-old white male, in no distress, on room air HEENT: Pupils are round and equally reacting to light. EOMI. No scleral icterus. No conjunctival pallor. Normocephalic, atraumatic. No pharyngeal erythema. No thyromegaly. CARDIOVASCULAR: S1 and S2 present. No murmurs, rubs, or gallops. PULMONARY: Chest is clear to auscultation, no wheezing , no crackles. -ABDOMEN: Soft, nontender, nondistended, normoactive bowel sounds. No palpable organomegaly. Surgical site seems to be clean MUSCULOSKELETAL: No joint swelling or deformity. EXTREMITIES: No cyanosis, clubbing, or pedal edema. NEUROLOGICAL: No gross focal neurologic deficit SKIN: No rashes. no petechiae. - Labs CBC & Chem 7: 10/04/24 06:57 10/05/24 05:29 Labs: Abnormal Lab Results - Last 24 Hours (Table) 10/04/24 10/04/24 10/05/24 Range/Units 18:02 23:09 05:29 Chloride 113 H (98-107) mmol/L BUN 24 H (9-20) mg/dL Glucose 164 H (74-99) mg/dL POC Glucose (mg/dL) 172 H 121 H (70-110) mg/dL Calcium 7.9 L (8.4-10.2) mg/dL Ionized Calcium Chago (4.5-5.3) mg/dL 10/05/24 10/05/24 10/05/24 Range/Units 05:29 05:49 11:44 Chloride (98-107) mmol/L BUN (9-20) mg/dL Glucose (74-99) mg/dL POC Glucose (mg/dL) 163 H 137 H (70-110) mg/dL Calcium (8.4-10.2) mg/dL Ionized Calcium Chago 4.4 L (4.5-5.3) mg/dL Assessment and Plan Assessment: Impression: SMA syndrome status post gastrojejunostomy and J-tube placement on 09/25 Status post repair of fascial dehiscence on 10/03/2024 Acute blood loss anemia from fascial dehiscence requiring surgical repair 10/03/2024 Intractable nausea vomiting and upper GI bleed secondary to above improvement Bilateral aspiration pneumonia suspected Hyponatremia Recurrent nausea vomiting, intractable requiring PEG tube placement during last admission. Epigastric pain and tenderness could be secondary to gastritis, status post Roex-en-Y gastrojejunostomy. S/p J-tube placement Severe calorie protein malnutrition Hypernatremia, improved Sinus tachycardia versus SVT requiring metoprolol clonidine patch, better controlled Elevated troponin could be secondary to SVT related dehydration, evaluated by cardiology during last admission Hypertension Hyperlipidemia Anxiety/depression, not on active issue History of hiatal hernia Recommendation: Continue present supportive care measures Transfer patient to medical surgical floor Continue TPN as recommended by dietitian Continue Protonix Continue Reglan as needed Continue nutritional support Continue GI and DVT prophylaxis Will continue to follow Time with Patient: Less than 30
[2024-10-05] MEDS: LORazepam 1 MG/0.5 ML VIAL IV PRN (13:31)
--- NOTE | 2024-10-05 13:43 | P.PN ---
Subjective Progress Note Date: 10/05/24 Patient is seen for follow-up for hypernatremia. He is maintained on TPN. Status post repair of fascial dehiscence on 10/03/2024. Patient is currently in the ICU. Sodium was restarted in TPN 10/03. No new complaints. Patient is awake, comfortable, no acute fracture Examination of the heart S1 and S2 Examination of the lungs bilateral breath sounds are heard Abdomen is soft, dressed Examination of lower extremities shows trace edema [employer] exam grossly intact patient is moving all 4 extremities. Objective - Vital Signs Vital signs: Vital Signs Temp 98.0 F 10/05/24 08:00 Pulse 93 10/05/24 10:00 Resp 25 H 10/05/24 10:00 BP 92/65 10/05/24 10:00 Pulse Ox 95 10/05/24 10:00 FiO2 Intake & Output 10/04/24 10/05/24 10/05/24 18:59 06:59 18:59 Intake Total 200 1537 180 Output Total 1035 1425 310 Balance -835 112 -130 Weight 64.4 kg 65 kg Intake: IV 200 200 100 Piperacillin-Tazobactam 3 200 200 100 .375 gm In Sodium Chloride 0.9% 100 ml @ 25 mls/hr IVPB Q8H [facility] Rx#: [id number] Intake, IV Titration 1337 80 Amount ACETAMINOPHEN IV (For NPO 200 ) 1,000 mg In Empty Bag 1 bag @ 400 mls/hr IVPB Q6HR [facility] Rx#:[id number] Calcium Gluconate 1 gm 320 80 Potassium Acetate 46 meq Magnesium Sulfate gm 1 gm Potassium Phosphate 18 mmol Sodium Chloride 4Meq /ml Vial 6 meq In Amino Acids 5 %/Dextrose 20 % 1 ,000 ml @ 80 mls/hr IV . BY DURATION [facility] Rx#: [id number] Fat Emulsion 20% 250 ml 147 In Empty Bag 1 bag @ 21 mls/hr IV Q72H [facility] Rx#: [id number] IV Fluid Continuation 1, 110 000 ml @ 0 mls/hr IV .STK [facility] Rx#:[id number] Mvi, Adult No.4 with Vit 560 K 10 ml Trace (Conc-1Ml/ Dose) 1 ml Calcium Gluconate 1 gm Potassium Acetate 46 meq Magnesium Sulfate gm 1 gm Potassium Phosphate 18 mmol Sodium Chloride 4Meq/ml Vial 6 meq In Amino Acids 5 %/ Dextrose 20 % 1,000 ml @ 80 mls/hr IV .BY DURATION [facility] Rx#:[id number] Output: Gastric Drainage 200 Urine 1035 1225 310 Other: Voiding Method Indwelling Catheter Indwelling Catheter Indwelling Catheter - Labs CBC & Chem 7: 10/04/24 06:57 10/05/24 05:29 Labs: Abnormal Lab Results - Last 24 Hours (Table) 10/04/24 10/04/24 10/04/24 Range/Units 11:56 18:02 23:09 Chloride (98-107) mmol/L BUN (9-20) mg/dL Glucose (74-99) mg/dL POC Glucose (mg/dL) 200 H 172 H 121 H (70-110) mg/dL Calcium (8.4-10.2) mg/dL Ionized Calcium Chago (4.5-5.3) mg/dL 10/05/24 10/05/24 10/05/24 Range/Units 05:29 05:29 05:49 Chloride 113 H (98-107) mmol/L BUN 24 H (9-20) mg/dL Glucose 164 H (74-99) mg/dL POC Glucose (mg/dL) 163 H (70-110) mg/dL Calcium 7.9 L (8.4-10.2) mg/dL Ionized Calcium [place] 4.4 L (4.5-5.3) mg/dL Assessment and Plan Assessment: 1. Hypernatremia from lack of oral water intake. Sodium level 142 today. Sodium was restarted in TPN yesterday when sodium was 135. This will be reduced to half today. 2. SMA syndrome. Surgery following. 3. Status post J-tube placement September 25, 2024. 4. Hypokalemia from poor intake. Being replaced. 5. Fascial dehiscence with bleeding status post repair on 10/03/2024 Plan: Sodium 145, if continues to elevate would decrease TPN sodium further
[2024-10-05 17:27] LABS: HCT 33.7 % (39.6-50.0); HGB 11.4 g/dL (13.0-17.0); MCH 30.6 pg (27.0-32.0); MCHC 33.8 g/dL (32.0-37.0); MCV 90.3 fL (80.0-97.0); Mean Platelet Volume 12.9 fL (9.5-12.2); Platelet Count 179 10*3/uL (140-440); RBC 3.73 10*6/uL (4.40-5.60); RDW 17.2 % (11.5-14.5); WBC 13.28 10*3/uL (4.50-10.00)
[2024-10-05 17:57] LABS: Glucose,Whole Blood 151 mg/dL (70-110)
--- NOTE | 2024-10-05 23:06 | P.PN ---
Subjective This is a pleasant 68 years old male who was recently discharged from this facility about 4 days ago for nausea vomiting and malnutrition status post PEG tube placement by surgery team. Once he been discharged he started having recurrent nausea vomiting again, he vomited 6 times since yesterday with no blood. Associated with epigastric pain and tenderness His troponin was elevated but EKG showing SVT. He has been evaluated by tank setter as well during last admission for elevated troponin. Currently denies chest pain or dyspnea. No specific urinary symptoms. No headache dizziness weakness or numbness He is pain mainly in the epigastric area about 9/10 felt like squeezing nonradiating with no precipitating or relieving factors. He states that the pain is similar to last time. He has no bowel movement. He is using the PEG tube at home. He got Zofran 4 mg and is requesting more medicine He is hemodynamically stable and afebrile He has unremarkable CBC, BMP, LFT. WBC is mildly elevated at 10.4 at 11. Lactic acid 4.6 came back to normal at 1.7. Troponin is elevated 0.065. KUB showing nonspecific gas bowel pattern. EKG showed SVT with a rate of [address] depression in V3-V5 Patient lying in bed with no dyspnea or chest pain He is vomiting of blood today. He still has nausea vomiting. He was on Zofran 8 mg we will going to add Reglan IV 5 and then 10 mg. hemoglobin stable at 12.4 with slight improvement. Vital stable. He is not on any blood thinners or aspirin. His on Protonix IV twice daily added today Also we added D5 normal saline Discussed the case with surgery team. CT of the abdomen pelvis with IV contrast is requested. Currently patient denies any abdominal pain or epigastric tenderness. 4/10 No vomiting today, looks tired No abdominal pain or tenderness PEG tube is in place and feeding tube on hold He still getting IV fluids and Zosyn Plan for EGD today with surgery team given his hematemesis yesterday. Hemoglobin was stable yesterday at 11.3 Monitor hemoglobin Continue with Protonix He is getting Reglan [id number] which prevent him from vomiting 09/25 i came to see the pt twice and he was no in his room 09/26 Patient seen and examined at bedside. He is awake and alert ,he is status post Roex-en-Y gastrojejunostomy. Today postop day #1 He still complaining from epigastric pain and mild tenderness with PEG tube placement to gravity. Patient is not getting tube feeding Patient is getting D5W at 100 mL/h, sodium improved 150 down to 146 today Also patient is getting Zosyn WBC 16.1, hemoglobin 8.4 and sodium 146 Is getting Reglan 5 mg as needed will added 10 mg 09/27 Patient remains with GI symptoms. PEG tube to gravity and patient received TPN. Still with nausea and some abdominal/epigastric pain and tenderness although partially improved. No other new complaint. Labs look stable or slightly improving with sodium 147, hemoglobin 13 and WBC down to 11.3 Nephrology consult was obtained Patient started on normal saline at 100 mL/h and D5W was stopped 09/28 Patient states he is the same over the last 2 days he still have some epigastric pain and tenderness which looks the same also he has some nausea and vomiting although he was taking Reglan. Also patient WBC went up to 13.3. Hemoglobin down to 9.3 Sodium 148 potassium 3.1 Replace potassium per protocol Started on D5W at give Ativan x 1 to help with anxiety and with nausea vomiting 09/29 Patient developed significant tachycardia last night and this morning with heart rate going up to 150 and 160/min. EKG showing sinus tachycardia. Heart rate improved down to 100 and blood pressure stable with systolic 120-150 It is thought multifactorial secondary to anxiety dehydration infection electrolyte abnormalities and pain. D-dimer is ordered but the suspicion for PE is low Patient with no chest pain or dyspnea, actually patient this is the first time he told me he feels better since I saw him from admission. He was sitting in chair with slight weakness. He still getting TPN Zosyn. He getting D5W at 50 mL/h but sodium increased to 152 so increase the dose to 125 mL/h Dilaudid added IV Lopressor 5 mg every 8 hours and clonidine patch 0.1 mg Also low potassium and magnesium being replaced. 09/30 Patient is lethargic today with some nausea. He denies epigastric abdominal pain. He is still tachycardic with heart around 120 WBC is 14.5, hemoglobin 9.6 and He remains on D5W at 125 Eliquis dose lowered to 2.5 10/01 Patient today feels improved and better he denies chest pain or dyspnea no epigastric pain or tenderness significant than the other days. PEG tube still in place but not working. Still getting TPN He still tachycardic and blood pressure still slightly on the high side, he got 3 doses of Lopressor 5 mg IV yesterday, we will going to increase his clonidine patch 0.2 up to 0.3. He has CTA of the chest done yesterday for suspicion of PE, no pulm embolism found however there is lung nodule 1.1 cm that he needs follow-up in 3 months for report also there is bilateral groundglass opacities and nodular lesions suspicious for pneumonia versus aspiration pneumonia versus cryptogenic o rganizing pneumonia. Also there is retained material or secretions or food in the lower esophagus which cause more with aspiration pneumonitis. Patient remains on IV Protonix for esophagitis Therefore patient remains on IV Zosyn. Low potassium but replace per protocol today The other thing his hypernatremia significantly improved 122 yesterday and 124 today while he is on D5 W at 75 mL today compared to 125 yesterday Check labs in the morning 10/02 Today patient feels tired weak and sweaty Blood pressure is low normal, became slightly tachycardic 115. His heart rate is getting controlled with the clonidine patch 0.3 mg and now requiring only once daily dose of IV Lopressor 5 mg over the last 2 days. His albumin is 2.0. His sodium 138 he remains on D5W. He is still getting TPN Will give IV albumin 25 % x 1 Hemoglobin 9.1 10/03 Patient developed severe bleeding from his epigastric wound and his abdominal wall with hemoglobin dropped down to 6.8 and 6.3 received several units of blood transfusion. He was taking to the operating room emergently by surgery team and the bleeding was stopped and the wound was sutured again. After that patient was taken to the ICU 10/04 Patient awake alert He feels comfortable He still has expected tenderness at the surgical site Pain is treated with IV Tylenol per surgery team 10/05 Patient awake alert sitting up in bed He denies vomiting Abdominal pain is better Blood pressure 92/65 Objective - Vital Signs Vital signs: Vital Signs Temp 98.0 F 10/05/24 08:00 Pulse 93 10/05/24 10:00 Resp 25 H 10/05/24 10:00 BP 92/65 10/05/24 10:00 Pulse Ox 95 10/05/24 10:00 FiO2 Intake & Output 10/04/24 10/05/24 10/05/24 18:59 06:59 18:59 Intake Total 200 1537 180 Output Total 1035 1425 310 Balance -835 112 -130 Weight 64.4 kg 65 kg Intake: IV 200 200 100 Piperacillin-Tazobactam 3 200 200 100 .375 gm In Sodium Chloride 0.9% 100 ml @ 25 mls/hr IVPB Q8H [facility] Rx#: [id number] Intake, IV Titration 1337 80 Amount ACETAMINOPHEN IV (For NPO 200 ) 1,000 mg In Empty Bag 1 bag @ 400 mls/hr IVPB Q6HR [facility] Rx#:[id number] Calcium Gluconate 1 gm 320 80 Potassium Acetate 46 meq Magnesium Sulfate gm 1 gm Potassium Phosphate 18 mmol Sodium Chloride 4Meq /ml Vial 6 meq In Amino Acids 5 %/Dextrose 20 % 1 ,000 ml @ 80 mls/hr IV . BY DURATION [facility] Rx#: [id number] Fat Emulsion 20% 250 ml 147 In Empty Bag 1 bag @ 21 mls/hr IV Q72H [facility] Rx#: [id number] IV Fluid Continuation 1, 110 000 ml @ 0 mls/hr IV .[facility] Rx#:[id number] Mvi, Adult No.4 with Vit 560 K 10 ml Trace (Conc-1Ml/ Dose) 1 ml Calcium Gluconate 1 gm Potassium Acetate 46 meq Magnesium Sulfate gm 1 gm Potassium Phosphate 18 mmol Sodium Chloride 4Meq/ml Vial 6 meq In Amino Acids 5 %/ Dextrose 20 % 1,000 ml @ 80 mls/hr IV .BY DURATION [facility] Rx#:[id number] Output: Gastric Drainage 200 Urine 1035 1225 310 Other: Voiding Method Indwelling Catheter Indwelling Catheter Indwelling Catheter - Exam -GENERAL: The patient is alert and oriented x3, not in any acute distress. Well developed, well nourished. Thin built HEENT: Pupils are round and equally reacting to light. EOMI. No scleral icterus. No conjunctival pallor. Normocephalic, atraumatic. No pharyngeal erythema. No thyromegaly. CARDIOVASCULAR: S1 and S2 present. No murmurs, rubs, or gallops. PULMONARY: Chest is clear to auscultation, no wheezing , no crackles. -ABDOMEN: Soft, nontender, nondistended, normoactive bowel sounds. No palpable organomegaly. PEG tube is in place with no Abdominal tenderness or guarding MUSCULOSKELETAL: No joint swelling or deformity. EXTREMITIES: No cyanosis, clubbing, or pedal edema. NEUROLOGICAL: Gross neurological examination did not reveal any focal deficits. SKIN: No rashes. no petechiae. - Labs CBC & Chem 7: 10/04/24 06:57 10/05/24 05:29 Labs: Abnormal Lab Results - Last 24 Hours (Table) 10/04/24 10/04/24 10/04/24 Range/Units 11:56 18:02 23:09 Chloride (98-107) mmol/L BUN (9-20) mg/dL Glucose (74-99) mg/dL POC Glucose (mg/dL) 200 H 172 H 121 H (70-110) mg/dL Calcium (8.4-10.2) mg/dL Ionized Calcium Chago (4.5-5.3) mg/dL 10/05/24 10/05/24 10/05/24 Range/Units 05:29 05:29 05:49 Chloride 113 H (98-107) mmol/L BUN 24 H (9-20) mg/dL Glucose 164 H (74-99) mg/dL POC Glucose (mg/dL) 163 H (70-110) mg/dL Calcium 7.9 L (8.4-10.2) mg/dL Ionized Calcium Chago 4.4 L (4.5-5.3) mg/dL Assessment and Plan Assessment: SMA syndrome status post gastrojejunostomy and J-tube placement on 09/25 Intractable nausea vomiting and upper GI bleed secondary to above improvement Fascial wound dehiscence on 10/03 status post emergent surgical repair requiring multiple blood transfusion Bilateral aspiration pneumonia suspected Hyponatremia Recurrent nausea vomiting, intractable requiring PEG tube placement during last admission. Epigastric pain and tenderness could be secondary to gastritis, status post Roex-en-Y gastrojejunostomy. S/p J-tube placement Severe calorie protein malnutrition Hypernatremia, improved Sinus tachycardia versus SVT requiring metoprolol clonidine patch, better controlled Elevated troponin could be secondary to SVT related dehydration, evaluated by cardiology during last admission Hypertension Hyperlipidemia Anxiety/depression, not on active issue Distal esophagitis Hiatal hernia seen on recent EKG Plan: Patient was transferred to the ICU Critical team consult S/p J-tube placement Continue with Reglan as needed 10 mg Continue with Protonix Start IV Lopressor 5 mg 3 times daily and clonidine patch 0.1 mg and monitor heart rate Continues with J-tube, currently on hold in place to gravity Surgical team consult with patient status post EGD on 09/12. Nutrition consult Resume home medication Labs and medication were reviewed.. Continue same treatment. Continue with symptomatic treatment. Resume home medication. Monitor labs and vitals. DVT and GI prophylaxis. Further recommendations as per clinical course of the p atient DVT prophylaxis: no Subcutaneous heparin. Continue with mechanical GI Prophylaxis: Protonix Prognosis is guarded
[2024-10-06 00:27] LABS: Glucose,Whole Blood 144 mg/dL (70-110)
[2024-10-06] MEDS: ZINC OXIDE PASTE (Z-GUARD) 1 APPLIC TOPICAL PRN (04:09)
[2024-10-06 06:13] LABS: Glucose,Whole Blood 152 mg/dL (70-110)
[2024-10-06 06:53] LABS: Ionized Calcium 4.5 mg/dL (4.5-5.3)
[2024-10-06 06:56] LABS: Albumin 2.4 g/dL (3.5-5.0)
[2024-10-06 06:59] LABS: African American GFR (CKD) >90 (>60 ml/min/1.73 sqM); Anion Gap 8 mmol/L; Blood Urea Nitrogen 27 mg/dL (9-20); Calcium 8.1 mg/dL (8.4-10.2); Carbon Dioxide 24 mmol/L (22-30); Chloride 116 mmol/L (98-107); Glucose 162 mg/dL (74-99); Magnesium 2.4 mg/dL (1.6-2.3); Non-African American GFR(CKD) >90 (>60 ml/min/1.73 sqM); Phosphorus 4.3 mg/dL (2.5-4.5); Potassium 4.5 mmol/L (3.5-5.1); Sodium 148 mmol/L (137-145)
[2024-10-06] MEDS: ACETAMINOPHEN IV (For NPO) 1,000 MG in EMPTY BAG 1 BAG IVPB ONE (08:41)
--- NOTE | 2024-10-06 08:47 | XR ---
EXAMINATION TYPE: XR chest 1V portable DATE OF EXAM: 10/06/2024 CLINICAL INDICATION: Male, 68 years old with history of Fever, progress study. TECHNIQUE: Single AP portable upright view of the chest is obtained. COMPARISON: Chest x-ray from September 20, 2024 FINDINGS: Stable right-sided PICC line. New patchy left basilar opacity. Right lung is clear. Cardiac silhouette size is stable and upper rosenberg its of normal with ectatic thoracic aorta. Osseous structures are intact. IMPRESSION: New Patchy left basilar acute infiltrate and/or atelectasis. [facility] Janis Manzo, , 10/06/2024 8:44 AM
[2024-10-06] MEDS: 1: MVI, ADULT NO.4 WITH VIT K 10 ML, TRACE (CONC-1ML/DOSE) 1 ML, CALCIUM GLUCONATE 1 GM, IV SCH (10:32)
--- NOTE | 2024-10-06 11:52 | P.PN ---
Subjective Progress Note Date: 10/06/24 This is a 68-year-old white male admitted on 09/09/2024, his chief complaint at the time was nausea vomiting and diarrhea. Patient was seen by surgery on consultation, he was seen on 09/10/2024, felt that the patient has intractable nausea and vomiting, he had history of esophageal dysmotility disorder, hiatal hernia, and esophagitis. On 09/12 patient underwent EGD, there was no evidence of gastric obstruction, there was a few clots around the PEG tube, there was no active bleeding, patient was found to have a small hiatal hernia at the GE junction, distal esophagus was normal. 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 Last night, patient developed wound dehiscence and he was having significant amount of bleeding from the surgical site/wound dehiscence. Patient required a total of 4 units of packed RBCs and required 2 units of fresh frozen plasma. Today patient underwent surgical repair of his fascial dehiscence with intraperitoneal blood clots related to previous bleeding from abdominal wall. His bleeding was surgically controlled, however considering the amount of bleeding that the patient had in the last 24 hours, I was asked to admit the patient to the ICU for monitoring for the next 24 hours. I saw the patient in the recovery room, he was noted to be hemodynamically stable, moaning and groaning because of some discomfort in his surgical site. Otherwise patient was not in any distress, and he was mostly on nasal cannula. Labs this morning before the last 2 units of packed RBCs given his hemoglobin was 6.3 WBC count 19 electrolytes are normal renal profile is normal Seen today on 10/04/2024, patient is doing well, no further bleeding from his surgical wound, patient is hemodynamically stable, continues to have chronic pain, no shortness of breath no cough no wheezing WBC count is 13.6 hemoglobin 11.2 electrolytes are normal renal profile is normal patient received a total of 5 units of packed RBCs and 2 units of fresh frozen plasma since this admission his hemoglobin today is 11.2. Seen today on 11/01/2024, patient remains in the ICU he is now on overflow, needs to go to medical surgical floor. On room air, not in any distress. No cough no wheezing no shortness of breath, pain seems to be fairly under control. Labs today were reviewed he had a relatively normal electrolytes drawn normal renal profile blood sugar is 164. The patient is seen today October 06, 2024 in follow-up on the regular medical floor. Hospital day #27. Postoperative day #3 of a fascial dehiscence repair. On September 25, 2024 he had undergone a Rickie-en-Y gastrojejunostomy for SMA syndrome. He was transferred out of the ICU yesterday. He is currently resting in bed. Awake and alert in no acute distress. He is maintaining O2 saturations in the 90s on room air. He is febrile this morning with a axillary temperature of 102. He is tachycardic. Blood pressure stable. Chest x-ray shows a left basilar infiltrate/atelectasis. He is status post 5 units of packed red blood cells and 2 units of fresh frozen plasma thus far. White count 13.2. Hemoglobin 11.4. Platelets 179.. Creatinine 0.83. Glucose 162. He is being nourished with TPN at 80 mL/h. Lipids every 72 hours. He remains on antibiotics in the form of Zosyn. Heparin for DVT prophylaxis. Objective - Vital Signs Vital signs: Vital Signs Temp 97.5 F L 10/06/24 10:39 Pulse 123 H 10/06/24 07:08 Resp 22 10/06/24 07:08 BP 124/82 10/06/24 07:08 Pulse Ox 94 L 10/06/24 07:08 FiO2 Intake & Output 10/05/24 10/06/24 10/06/24 18:59 06:59 18:59 Intake Total 280 1870.667 Output Total 1045 1600 Balance -765 270.667 Weight 34.5 kg Intake: IV 100 100 Piperacillin-Tazobactam 3 100 100 .375 gm In Sodium Chloride 0.9% 100 ml @ 25 mls/hr IVPB Q8H [facility] Rx#: [id number] Intake, IV Titration 180 1770.667 Amount Calcium Gluconate 1 gm 80 880 Potassium Acetate 46 meq Magnesium Sulfate gm 1 gm Potassium Phosphate 18 mmol Sodium Chloride 4Meq /ml Vial 6 meq In Amino Acids 5 %/Dextrose 20 % 1 ,000 ml @ 80 mls/hr IV . [facility] Rx#: [id number] Mvi, Adult No.4 with Vit 890.667 K 10 ml Trace (Conc-1Ml/ Dose) 1 ml Calcium Gluconate 1 gm Potassium Acetate 46 meq Magnesium Sulfate gm 1 gm Potassium Phosphate 18 mmol Sodium Chloride 4Meq/ml Vial 6 meq In Amino Acids 5 %/ Dextrose 20 % 1,000 ml @ 80 mls/hr IV .BY DURATION [facility] Rx#:[id number] Piperacillin-Tazobactam 3 100 .375 gm In Sodium Chloride 0.9% 100 ml @ 25 mls/hr IVPB Q8H [facility] Rx#: [id number] Output: Drainage 100 Abdomen 100 Urine 1045 1500 Other: Voiding Method Indwelling Catheter Indwelling Catheter Indwelling Catheter - Exam GENERAL EXAM: Alert, frail, weak 68-year-old male, on room air, fairly comfortable in no apparent distress. HEAD: Normocephalic. EYES: Normal reaction of pupils, equal size. NOSE: Clear with pink turbinates. THROAT: No erythema or exudates. NECK: No masses, no JVD. CHEST: No chest wall deformity. LUNGS: Equal air entry with no crackles, wheeze, rhonchi or dullness. CVS: S1 and S2 normal with no audible murmur, regular rhythm. ABDOMEN: Incision clean dry well-approximated. Abdominal binder in place. No hepatosplenomegaly, normal bowel sounds, no guarding or rigidity. SPINE: No scoliosis or deformity SKIN: No rashes CENTRAL NERVOUS SYSTEM: No focal deficits, tone is normal in all 4 extremities. EXTREMITIES: There is no peripheral edema. No clubbing, no cyanosis. Peripheral pulses are intact. - Labs CBC & Chem 7: 10/05/24 17:14 10/06/24 06:10 Labs: Abnormal Lab Results - Last 24 Hours (Table) 10/05/24 10/05/24 10/05/24 Range/Units 11:44 17:14 17:55 WBC 13.28 H (4.50-10.00) 10*3/uL RBC 3.73 L (4.40-5.60) 10*6/uL Hgb 11.4 L (13.0-17.0) g/dL Hct 33.7 L (39.6-50.0) % MPV 12.9 H (9.5-12.2) fL Sodium (137-145) mmol/L Chloride (98-107) mmol/L BUN (9-20) mg/dL Glucose (74-99) mg/dL POC Glucose (mg/dL) 137 H 151 H (70-110) mg/dL Calcium (8.4-10.2) mg/dL Magnesium (1.6-2.3) mg/dL Albumin (3.5-5.0) g/dL 10/06/24 10/06/24 10/06/24 Range/Units 00:25 06:10 06:10 WBC (4.50-10.00) 10*3/uL RBC (4.40-5.60) 10*6/uL Hgb (13.0-17.0) g/dL Hct (39.6-50.0) % MPV (9.5-12.2) fL Sodium 148 H (137-145) mmol/L Chloride 116 H (98-107) mmol/L BUN 27 H (9-20) mg/dL Glucose 162 H (74-99) mg/dL POC Glucose (mg/dL) 144 H (70-110) mg/dL Calcium 8.1 L (8.4-10.2) mg/dL Magnesium 2.4 H (1.6-2.3) mg/dL Albumin 2.4 L (3.5-5.0) g/dL 10/06/24 Range/Units 06:11 WBC (4.50-10.00) 10*3/uL RBC (4.40-5.60) 10*6/uL Hgb (13.0-17.0) g/dL Hct (39.6-50.0) % MPV (9.5-12.2) fL Sodium (137-145) mmol/L Chloride (98-107) mmol/L BUN (9-20) mg/dL Glucose (74-99) mg/dL POC Glucose (mg/dL) 152 H (70-110) mg/dL Calcium (8.4-10.2) mg/dL Magnesium (1.6-2.3) mg/dL Albumin (3.5-5.0) g/dL Assessment and Plan Assessment: SMA syndrome status post gastrojejunostomy and J-tube placement on 09/25/24 Status post repair of fascial dehiscence on 10/03/2024 Acute blood loss anemia from fascial dehiscence requiring surgical repair 10/03/2024 Intractable nausea vomiting and upper GI bleed secondary to above improvement Bilateral aspiration pneumonia suspected Febrile illness secondary to above Hyponatremia Recurrent nausea vomiting, intractable requiring PEG tube placement during last admission. Epigastric pain and tenderness could be secondary to gastritis, status post Roex-en-Y gastrojejunostomy. S/p J-tube placement Severe calorie protein malnutrition Hypernatremia, improved Sinus tachycardia versus SVT requiring metoprolol clonidine patch, better controlled Elevated troponin could be secondary to SVT related dehydration, evaluated by cardiology during last admission Hypertension Hyperlipidemia Anxiety/depression, not on active issue History of hiatal hernia Poor overall functional status based on the above-mentioned multiple comorbidities Plan: The patient was seen and evaluated Chest x-ray, labs and medications reviewed Acetaminophen for fever Obtain a blood culture Antibiotics in the form of Zosyn Remains stable on room air oxygen Needs increased encouragement for use of the incentive spirometer Remains on heparin for DVT prophylaxis Being nourished with TPN and lipids Prognosis remains guarded Increase his activity as tolerated Per case management plan is for home with home care at discharge This patient was seen independently by the pulmonary nurse practitioner addressing pulmonary issues I have personally seen and examined the patient, performed the documentation and the assessment and plan as written. Number of minutes spent on the visit: 25 Dictation was produced using [email or web address] dictation software. Please excuse any g rammatical, word or spelling errors.
[2024-10-06 12:05] LABS: Glucose,Whole Blood 195 mg/dL (70-110)
--- NOTE | 2024-10-06 12:40 | P.PN ---
Subjective Progress Note Date: 10/06/24 Patient is seen for follow-up for hypernatremia. He is maintained on TPN. Status post repair of fascial dehiscence on 10/03/2024. Sodium was restarted in TPN 10/03. No new complaints. Patient is awake, comfortable, no acute fracture Examination of the heart S1 and S2 Examination of the lungs bilateral breath sounds are heard Abdomen is soft, dressed Examination of lower extremities shows trace edema FRUIT RANCHER exam grossly intact patient is moving all 4 extremities. Objective - Vital Signs Vital signs: Vital Signs Temp 97.5 F L 10/06/24 10:39 Pulse 123 H 10/06/24 07:08 Resp 22 10/06/24 07:08 BP 124/82 10/06/24 07:08 Pulse Ox 94 L 10/06/24 07:08 FiO2 Intake & Output 10/05/24 10/06/24 10/06/24 18:59 06:59 18:59 Intake Total 280 1870.667 Output Total 1045 1600 Balance -765 270.667 Weight 34.5 kg Intake: IV 100 100 Piperacillin-Tazobactam 3 100 100 .375 gm In Sodium Chloride 0.9% 100 ml @ 25 mls/hr IVPB Q8H [facility] Rx#: [id number] Intake, IV Titration 180 1770.667 Amount Calcium Gluconate 1 gm 80 880 Potassium Acetate 46 meq Magnesium Sulfate gm 1 gm Potassium Phosphate 18 mmol Sodium Chloride 4Meq /ml Vial 6 meq In Amino Acids 5 %/Dextrose 20 % 1 ,000 ml @ 80 mls/hr IV . BY DURATION [facility] Rx#: [id number] Mvi, Adult No.4 with Vit 890.667 K 10 ml Trace (Conc-1Ml/ Dose) 1 ml Calcium Gluconate 1 gm Potassium Acetate 46 meq Magnesium Sulfate gm 1 gm Potassium Phosphate 18 mmol Sodium Chloride 4Meq/ml Vial 6 meq In Amino Acids 5 %/ Dextrose 20 % 1,000 ml @ 80 mls/hr IV .BY D[facility]ATION [facility] Rx#:[id number] Piperacillin-Tazobactam 3 100 .375 gm In Sodium Chloride 0.9% 100 ml @ 25 mls/hr IVPB Q8H [facility] Rx#: [id number] Output: Drainage 100 Abdomen 100 Urine 1045 1500 Other: Voiding Method Indwelling Catheter Indwelling Catheter Indwelling Catheter - Labs CBC & Chem 7: 10/05/24 17:14 10/06/24 06:10 Labs: Abnormal Lab Results - Last 24 Hours (Table) 10/05/24 10/05/24 10/05/24 Range/Units 11:44 17:14 17:55 WBC 13.28 H (4.50-10.00) 10*3/uL RBC 3.73 L (4.40-5.60) 10*6/uL Hgb 11.4 L (13.0-17.0) g/dL Hct 33.7 L (39.6-50.0) % MPV 12.9 H (9.5-12.2) fL Sodium (137-145) mmol/L Chloride (98-107) mmol/L BUN (9-20) mg/dL Glucose (74-99) mg/dL POC Glucose (mg/dL) 137 H 151 H (70-110) mg/dL Calcium (8.4-10.2) mg/dL Magnesium (1.6-2.3) mg/dL Albumin (3.5-5.0) g/dL 10/06/24 10/06/24 10/06/24 Range/Units 00:25 06:10 06:10 WBC (4.50-10.00) 10*3/uL RBC (4.40-5.60) 10*6/uL Hgb (13.0-17.0) g/dL Hct (39.6-50.0) % MPV (9.5-12.2) fL Sodium 148 H (137-145) mmol/L Chloride 116 H (98-107) mmol/L BUN 27 H (9-20) mg/dL Glucose 162 H (74-99) mg/dL POC Glucose (mg/dL) 144 H (70-110) mg/dL Calcium 8.1 L (8.4-10.2) mg/dL Magnesium 2.4 H (1.6-2.3) mg/dL Albumin 2.4 L (3.5-5.0) g/dL 10/06/24 Range/Units 06:11 WBC (4.50-10.00) 10*3/uL RBC (4.40-5.60) 10*6/uL Hgb (13.0-17.0) g/dL Hct (39.6-50.0) % MPV (9.5-12.2) fL Sodium (137-145) mmol/L Chloride (98-107) mmol/L BUN (9-20) mg/dL Glucose (74-99) mg/dL POC Glucose (mg/dL) 152 H (70-110) mg/dL Calcium (8.4-10.2) mg/dL Magnesium (1.6-2.3) mg/dL Albumin (3.5-5.0) g/dL Assessment and Plan Assessment: 1. Hypernatremia from lack of oral water intake. Sodium level 142 today. Sodium was restarted in TPN. Now sodium worsening. 2. SMA syndrome. Surgery following. 3. Status post J-tube placement September 25, 2024. 4. Hypokalemia from poor intake. Being replaced. 5. Fascial dehiscence with bleeding status post repair on 10/03/2024 Plan: Sodium 148 today, pharmacy planning removing NaCl from bag today
[2024-10-06 18:20] LABS: Glucose,Whole Blood 127 mg/dL (70-110)
--- NOTE | 2024-10-06 23:33 | P.PN ---
Subjective This is a pleasant 68 years old male who was recently discharged from this facility about 4 days ago for nausea vomiting and malnutrition status post PEG tube placement by surgery team. Once he been discharged he started having recurrent nausea vomiting again, he vomited 6 times since yesterday with no blood. Associated with epigastric pain and tenderness His troponin was elevated but EKG showing SVT. He has been evaluated by collar padder blindstitch as well during last admission for elevated troponin. Currently denies chest pain or dyspnea. No specific urinary symptoms. No headache dizziness weakness or numbness He is pain mainly in the epigastric area about 9/10 felt like squeezing nonradiating with no precipitating or relieving factors. He states that the pain is similar to last time. He has no bowel movement. He is using the PEG tube at home. He got Zofran 4 mg and is requesting more medicine He is hemodynamically stable and afebrile He has unremarkable CBC, BMP, LFT. WBC is mildly elevated at 10.4 at 11. Lactic acid 4.6 came back to normal at 1.7. Troponin is elevated 0.065. KUB showing nonspecific gas bowel pattern. EKG showed SVT with a rate of [address] depression in V3-V5 Patient lying in bed with no dyspnea or chest pain He is vomiting of blood today. He still has nausea vomiting. He was on Zofran 8 mg we will going to add Reglan IV 5 and then 10 mg. hemoglobin stable at 12.4 with slight improvement. Vital stable. He is not on any blood thinners or aspirin. His on Protonix IV twice daily added today Also we added D5 normal saline Discussed the case with surgery team. CT of the abdomen pelvis with IV contrast is requested. Currently patient denies any abdominal pain or epigastric tenderness. 4/10 No vomiting today, looks tired No abdominal pain or tenderness PEG tube is in place and feeding tube on hold He still getting IV fluids and Zosyn Plan for EGD today with surgery team given his hematemesis yesterday. Hemoglobin was stable yesterday at 11.3 Monitor hemoglobin Continue with Protonix He is getting Reglan [id number] which prevent him from vomiting 09/25 i came to see the pt twice and he was no in his room 09/26 Patient seen and examined at bedside. He is awake and alert ,he is status post Roex-en-Y gastrojejunostomy. Today postop day #1 He still complaining from epigastric pain and mild tenderness with PEG tube placement to gravity. Patient is not getting tube feeding Patient is getting D5W at 100 mL/h, sodium improved 150 down to 146 today Also patient is getting Zosyn WBC 16.1, hemoglobin 8.4 and sodium 146 Is getting Reglan 5 mg as needed will added 10 mg 09/27 Patient remains with GI symptoms. PEG tube to gravity and patient received TPN. Still with nausea and some abdominal/epigastric pain and tenderness although partially improved. No other new complaint. Labs look stable or slightly improving with sodium 147, hemoglobin 13 and WBC down to 11.3 Nephrology consult was obtained Patient started on normal saline at 100 mL/h and D5W was stopped 09/28 Patient states he is the same over the last 2 days he still have some epigastric pain and tenderness which looks the same also he has some nausea and vomiting although he was taking Reglan. Also patient WBC went up to 13.3. Hemoglobin down to 9.3 Sodium 148 potassium 3.1 Replace potassium per protocol Started on D5W at give Ativan x 1 to help with anxiety and with nausea vomiting 09/29 Patient developed significant tachycardia last night and this morning with heart rate going up to 150 and 160/min. EKG showing sinus tachycardia. Heart rate improved down to 100 and blood pressure stable with systolic 120-150 It is thought multifactorial secondary to anxiety dehydration infection electrolyte abnormalities and pain. D-dimer is ordered but the suspicion for PE is low Patient with no chest pain or dyspnea, actually patient this is the first time he told me he feels better since I saw him from admission. He was sitting in chair with slight weakness. He still getting TPN Zosyn. He getting D5W at 50 mL/h but sodium increased to 152 so increase the dose to 125 mL/h Dilaudid added IV Lopressor 5 mg every 8 hours and clonidine patch 0.1 mg Also low potassium and magnesium being replaced. 09/30 Patient is lethargic today with some nausea. He denies epigastric abdominal pain. He is still tachycardic with heart around 120 WBC is 14.5, hemoglobin 9.6 and He remains on D5W at 125 Eliquis dose lowered to 2.5 10/01 Patient today feels improved and better he denies chest pain or dyspnea no epigastric pain or tenderness significant than the other days. PEG tube still in place but not working. Still getting TPN He still tachycardic and blood pressure still slightly on the high side, he got 3 doses of Lopressor 5 mg IV yesterday, we will going to increase his clonidine patch 0.2 up to 0.3. He has CTA of the chest done yesterday for suspicion of PE, no pulm embolism found however there is lung nodule 1.1 cm that he needs follow-up in 3 months for report also there is bilateral groundglass opacities and nodular lesions suspicious for pneumonia versus aspiration pneumonia versus cryptogenic o rganizing pneumonia. Also there is retained material or secretions or food in the lower esophagus which cause more with aspiration pneumonitis. Patient remains on IV Protonix for esophagitis Therefore patient remains on IV Zosyn. Low potassium but replace per protocol today The other thing his hypernatremia significantly improved 122 yesterday and 124 today while he is on D5 W at 75 mL today compared to 125 yesterday Check labs in the morning 10/02 Today patient feels tired weak and sweaty Blood pressure is low normal, became slightly tachycardic 115. His heart rate is getting controlled with the clonidine patch 0.3 mg and now requiring only once daily dose of IV Lopressor 5 mg over the last 2 days. His albumin is 2.0. His sodium 138 he remains on D5W. He is still getting TPN Will give IV albumin 25 % x 1 Hemoglobin 9.1 10/03 Patient developed severe bleeding from his epigastric wound and his abdominal wall with hemoglobin dropped down to 6.8 and 6.3 received several units of blood transfusion. He was taking to the operating room emergently by surgery team and the bleeding was stopped and the wound was sutured again. After that patient was taken to the ICU 10/04 Patient awake alert He feels comfortable He still has expected tenderness at the surgical site Pain is treated with IV Tylenol per surgery team 10/05 Patient awake alert sitting up in bed He denies vomiting Abdominal pain is better Blood pressure 92/65 10/06 He still has some epigastric abdominal pain that comes and goes. He rated about 5-7/10. Yesterday was 10/10 which looks improving Surgical vertical wound is with a dressing in place Patient getting TPN. Objective - Vital Signs Vital signs: Vital Signs Temp 97.1 F L 10/06/24 12:01 Pulse 86 10/06/24 12:01 Resp 20 10/06/24 12:01 BP 101/70 10/06/24 12:01 Pulse Ox 94 L 10/06/24 12:01 FiO2 Intake & Output 10/05/24 10/06/24 10/06/24 18:59 06:59 18:59 Intake Total 280 1870.667 Output Total 1045 1600 Balance -765 270.667 Weight 34.5 kg Intake: IV 100 100 Piperacillin-Tazobactam 3 100 100 .375 gm In Sodium Chloride 0.9% 100 ml @ 25 mls/hr IVPB Q8H [facility] Rx#: [id number] Intake, IV Titration 180 1770.667 Amount Calcium Gluconate 1 gm 80 880 Potassium Acetate 46 meq Magnesium Sulfate gm 1 gm Potassium Phosphate 18 mmol Sodium Chloride 4Meq /ml Vial 6 meq In Amino Acids 5 %/Dextrose 20 % 1 ,000 ml @ 80 mls/hr IV . BY DURATION [facility] Rx#: [id number] Mvi, Adult No.4 with Vit 890.667 K 10 ml Trace (Conc-1Ml/ Dose) 1 ml Calcium Gluconate 1 gm Potassium Acetate 46 meq Magnesium Sulfate gm 1 gm Potassium Phosphate 18 mmol Sodium Chloride 4Meq/ml Vial 6 meq In Amino Acids 5 %/ Dextrose 20 % 1,000 ml @ 80 mls/hr IV .BY DURATION [facility] Rx#:[id number] Piperacillin-Tazobactam 3 100 .375 gm In Sodium Chloride 0.9% 100 ml @ 25 mls/hr IVPB Q8H [facility] Rx#: [id number] Output: Drainage 100 Abdomen 100 Urine 1045 1500 Other: Voiding Method Indwelling Catheter Indwelling Catheter Indwelling Catheter - Exam -GENERAL: The patient is alert and oriented x3, not in any acute distress. Well developed, well nourished. Thin built HEENT: Pupils are round and equally reacting to light. EOMI. No scleral icterus. No conjunctival pallor. Normocephalic, atraumatic. No pharyngeal erythema. No thyromegaly. CARDIOVASCULAR: S1 and S2 present. No murmurs, rubs, or gallops. PULMONARY: Chest is clear to auscultation, no wheezing , no crackles. -ABDOMEN: Soft, nontender, nondistended, normoactive bowel sounds. No palpable organomegaly. PEG tube is in place with no Abdominal tenderness or guarding MUSCULOSKELETAL: No joint swelling or deformity. EXTREMITIES: No cyanosis, clubbing, or pedal edema. NEUROLOGICAL: Gross neurological examination did not reveal any focal deficits. SKIN: No rashes. no petechiae. - Labs CBC & Chem 7: 10/05/24 17:14 10/06/24 06:10 Labs: Abnormal Lab Results - Last 24 Hours (Table) 10/05/24 10/05/24 10/06/24 Range/Units 17:14 17:55 00:25 WBC 13.28 H (4.50-10.00) 10*3/uL RBC 3.73 L (4.40-5.60) 10*6/uL Hgb 11.4 L (13.0-17.0) g/dL Hct 33.7 L (39.6-50.0) % MPV 12.9 H (9.5-12.2) fL Sodium (137-145) mmol/L Chloride (98-107) mmol/L BUN (9-20) mg/dL Glucose (74-99) mg/dL POC Glucose (mg/dL) 151 H 144 H (70-110) mg/dL Calcium (8.4-10.2) mg/dL Magnesium (1.6-2.3) mg/dL Albumin (3.5-5.0) g/dL 10/06/24 10/06/24 10/06/24 Range/Units 06:10 06:10 06:11 WBC (4.50-10.00) 10*3/uL RBC (4.40-5.60) 10*6/uL Hgb (13.0-17.0) g/dL Hct (39.6-50.0) % MPV (9.5-12.2) fL Sodium 148 H (137-145) mmol/L Chloride 116 H (98-107) mmol/L BUN 27 H (9-20) mg/dL Glucose 162 H (74-99) mg/dL POC Glucose (mg/dL) 152 H (70-110) mg/dL Calcium 8.1 L (8.4-10.2) mg/dL Magnesium 2.4 H (1.6-2.3) mg/dL Albumin 2.4 L (3.5-5.0) g/dL 10/06/24 Range/Units 12:03 WBC (4.50-10.00) 10*3/uL RBC (4.40-5.60) 10*6/uL Hgb (13.0-17.0) g/dL Hct (39.6-50.0) % MPV (9.5-12.2) fL Sodium (137-145) mmol/L Chloride (98-107) mmol/L BUN (9-20) mg/dL Glucose (74-99) mg/dL POC Glucose (mg/dL) 195 H (70-110) mg/dL Calcium (8.4-10.2) mg/dL Magnesium (1.6-2.3) mg/dL Albumin (3.5-5.0) g/dL Assessment and Plan Assessment: SMA syndrome status post gastrojejunostomy and J-tube placement on 09/25 Intractable nausea vomiting and upper GI bleed secondary to above improvement Fascial wound dehiscence on 10/03 status post emergent surgical repair requiring multiple blood transfusion Bilateral aspiration pneumonia suspected Hyponatremia Recurrent nausea vomiting, intractable requiring PEG tube placement during last admission. Epigastric pain and tenderness could be secondary to gastritis, status post Roex-en-Y gastrojejunostomy. S/p J-tube placement Severe calorie protein malnutrition Hypernatremia, improved Sinus tachycardia versus SVT requiring metoprolol clonidine patch, better controlled Elevated troponin could be secondary to SVT related dehydration, evaluated by cardiology during last admission Hypertension Hyperlipidemia Anxiety/depression, not on active issue Distal esophagitis Hiatal hernia seen on recent EKG Plan: Patient was transferred to the ICU Critical team consult S/p J-tube placement Continue with Reglan as needed 10 mg Continue with Protonix Start IV Lopressor 5 mg 3 times daily and clonidine patch 0.1 mg and monitor heart rate Continues with J-tube, currently on hold in place to gravity Surgical team consult with patient status post EGD on 09/12. Nutrition consult Resume home medication Labs and medication were reviewed.. Continue same treatment. Continue with symptomatic treatment. Resume home medication. Monitor labs and vitals. DVT and GI prophylaxis. Further recommendations as per clinical course of the patient DVT prophylaxis: no Subcutaneous heparin. Continue with mechanical GI Prophylaxis: Protonix Prognosis is guarded
[2024-10-07 00:51] LABS: Glucose,Whole Blood 160 mg/dL (70-110)
[2024-10-07 04:42] LABS: African American GFR (CKD) >90 (>60 ml/min/1.73 sqM); Anion Gap 7 mmol/L; Blood Urea Nitrogen 35 mg/dL (9-20); Calcium 8.3 mg/dL (8.4-10.2); Carbon Dioxide 28 mmol/L (22-30); Chloride 114 mmol/L (98-107); Glucose 172 mg/dL (74-99); Magnesium 2.1 mg/dL (1.6-2.3); Non-African American GFR(CKD) >90 (>60 ml/min/1.73 sqM); Phosphorus 3.3 mg/dL (2.5-4.5); Potassium 4.1 mmol/L (3.5-5.1); Sodium 149 mmol/L (137-145)
[2024-10-07 06:02] LABS: Glucose,Whole Blood 194 mg/dL (70-110)
--- NOTE | 2024-10-07 08:20 | P.PN ---
Subjective Patient is seen in follow-up for hypernatremia. Sodium level 149 today. Receiving TPN. Vital signs are stable. General: No acute distress. HEENT: Head exam is unremarkable. LUNGS: No audible rhonchi or wheezes. HEART: Rate and Rhythm are regular. ABDOMEN: J-tube noted. EXTREMITITES: No edema. Objective - Vital Signs Vital signs: Vital Signs Temp 98 F 10/07/24 01:24 Pulse 110 H 10/07/24 01:24 Resp 18 10/07/24 01:24 BP 134/67 10/07/24 01:24 Pulse Ox 94 L 10/07/24 01:24 FiO2 Intake & Output 10/06/24 10/07/24 10/07/24 18:59 06:59 18:59 Intake Total 1060 Output Total 1300 600 Balance -1300 460 Intake: IV 100 Piperacillin-Tazobactam 3 100 .375 gm In Sodium Chloride 0.9% 100 ml @ 25 mls/hr IVPB Q8H [facility] Rx#: [id number] Intake, IV Titration 960 Amount Mvi, Adult No.4 with Vit 960 K 10 ml Trace (Conc-1Ml/ Dose) 1 ml Calcium Gluconate 1 gm Potassium Acetate 46 meq Potassium Phosphate 9 mmol In Amino Acids 5 %/Dextrose 20 % 1,000 ml @ 80 mls/hr IV . BY DURATION [facility] Rx#: [id number] Output: Urine 1300 600 Other: Voiding Method Indwelling Catheter Indwelling Catheter - Labs CBC & Chem 7: 10/05/24 17:14 10/07/24 04:05 Labs: Abnormal Lab Results - Last 24 Hours (Table) 10/06/24 10/06/24 10/07/24 Range/Units 12:03 18:18 00:49 Sodium (137-145) mmol/L Chloride (98-107) mmol/L BUN (9-20) mg/dL Glucose (74-99) mg/dL POC Glucose (mg/dL) 195 H 127 H 160 H (70-110) mg/dL Calcium (8.4-10.2) mg/dL 10/07/24 10/07/24 Range/Units 04:05 06:01 Sodium 149 H (137-145) mmol/L Chloride 114 H (98-107) mmol/L BUN 35 H (9-20) mg/dL Glucose 172 H (74-99) mg/dL POC Glucose (mg/dL) 194 H (70-110) mg/dL Calcium 8.3 L (8.4-10.2) mg/dL Assessment and Plan Plan: Assessment: 1. Hypernatremia from lack of oral water intake. Sodium level 148 today. 2. SMA syndrome. Surgery following. 3. Status post J-tube placement September 25, 2024. 4. Hypokalemia from poor intake. Status post replacement. Magnesium normal. Plan: TPN per surgery. Continue to lower sodium content in TPN as able. Start D5W at 70 cc an hour. Labs in the morning.
[2024-10-07] MEDS: DEXTROSE 5% IN WATER 1,000 ML IV SCH (09:13)
--- NOTE | 2024-10-07 11:35 | P.PN ---
Subjective Progress Note Date: 10/07/24 SURGICAL PROGRESS NOTE CHIEF COMPLAINT: Recurrent nausea and vomiting HISTORY OF PRESENT ILLNESS: Postop day #4 status post repair of fascial dehiscence upper incision of the midline incision. Status post Rickie-en-Y gastrojejunostomy on 09/25/24. Patient currently on regular medical floor. He did have a fever yesterday morning of 102. Heart rate 110. He is on TPN for nutrition. No bowel activity reported. Patient seen and examined by Dr. Lovett who is covering for Dr. Pavon PHYSICAL EXAM: VITAL SIGNS: Reviewed. GENERAL: Well-developed in no acute distress. ABDOMEN: Soft. Nondistended. Midline incision clean dry and intact. NEUROLOGIC: Alert and oriented. Cranial nerves II through XII grossly intact. ASSESSMENT: 1. SMA syndrome 2. Upper GI bleed with bright red blood and coffee-ground emesis. now resolved 3. Intractable nausea and vomiting 4. History of esophageal dysmotility disorder 5. Hiatal hernia 6. Esophagitis 7. Severe protein calorie malnutrition 8. Leukocytosis is reactive from surgery 9. Anemia secondary to malnutrition. 10. Fascial dehiscence of incision status post repair PLAN: -Keep patient n.p.o. until bowel function occurs -IV Tylenol added to help with pain management. -Continue TPN for nutrition support -keep peg tube to drainage -Continue antibiotics -DVT prophylaxis subcu heparin Physician Hunting Sales Leader note has been reviewed by physician. Signing provider agrees with the documented findings, assessment, and plan of care. I have personally seen and examined the patient, reviewed the METAL MACHINE SETTER /PAs history, exam and MDM and agree with the assessment and plan as written. Based on total visit time, I have performed more than 50% of the visit. As above: Patient has done better in terms of vomiting over the last 4 to 5 days. No nausea currently. PEG tube is to drainage. Some bilious output noted. Continue TPN. At some point consideration for PEJ tube down the Rickie limb. Will follow. Objective - Vital Signs Vital signs: Vital Signs Temp 99.9 F H 10/07/24 07:27 Pulse 63 10/07/24 07:27 Resp 18 10/07/24 07:27 BP 128/76 10/07/24 07:27 Pulse Ox 91 L 10/07/24 07:27 FiO2 Intake & Output 05/09/2710/07/24 10/07/24 18:59 06:59 18:59 Intake Total 1060 Output Total 1300 600 Balance -1300 460 Intake: IV 100 Piperacillin-Tazobactam 3 100 .375 gm In Sodium Chloride 0.9% 100 ml @ 25 mls/hr IVPB Q8H [facility] Rx#: [id number] Intake, IV Titration 960 Amount Mvi, Adult No.4 with Vit 960 K 10 ml Trace (Conc-1Ml/ Dose) 1 ml Calcium Gluconate 1 gm Potassium Acetate 46 meq Potassium Phosphate 9 mmol In Amino Acids 5 %/Dextrose 20 % 1,000 ml @ 80 mls/hr IV . BY DURATION [facility] Rx#: [id number] Output: Urine 1300 600 Other: Voiding Method Indwelling Catheter Indwelling Catheter - Labs CBC & Chem 7: 10/05/24 17:14 10/07/24 04:05 Labs: Abnormal Lab Results - Last 24 Hours (Table) 10/06/24 10/06/24 10/07/24 Range/Units 12:03 18:18 00:49 Sodium (137-145) mmol/L Chloride (98-107) mmol/L BUN (9-20) mg/dL Glucose (74-99) mg/dL POC Glucose (mg/dL) 195 H 127 H 160 H (70-110) mg/dL Calcium (8.4-10.2) mg/dL 10/07/24 10/07/24 Range/Units 04:05 06:01 Sodium 149 H (137-145) mmol/L Chloride 114 H (98-107) mmol/L BUN 35 H (9-20) mg/dL Glucose 172 H (74-99) mg/dL POC Glucose (mg/dL) 194 H (70-110) mg/dL Calcium 8.3 L (8.4-10.2) mg/dL
[2024-10-07] MEDS: ACETAMINOPHEN IV (For NPO) 1,000 MG in EMPTY BAG 1 BAG IVPB SCH (12:23)
[2024-10-07 12:25] LABS: Glucose,Whole Blood 166 mg/dL (70-110)
--- NOTE | 2024-10-07 13:12 | P.PN ---
Subjective Progress Note Date: 10/07/24 This is a 68-year-old white male admitted on 09/09/2024, his chief complaint at the time was nausea vomiting and diarrhea. Patient was seen by surgery on consultation, he was seen on 09/10/2024, felt that the patient has intractable nausea and vomiting, he had history of esophageal dysmotility disorder, hiatal hernia, and esophagitis. On 09/12 patient underwent EGD, there was no evidence of gastric obstruction, there was a few clots around the PEG tube, there was no active bleeding, patient was found to have a small hiatal hernia at the GE junction, distal esophagus was normal. 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 Last night, patient developed wound dehiscence and he was having significant amount of bleeding from the surgical site/wound dehiscence. Patient required a total of 4 units of packed RBCs and required 2 units of fresh frozen plasma. Today patient underwent surgical repair of his fascial dehiscence with intraperitoneal blood clots related to previous bleeding from abdominal wall. His bleeding was surgically controlled, however considering the amount of bleeding that the patient had in the last 24 hours, I was asked to admit the patient to the ICU for monitoring for the next 24 hours. I saw the patient in the recovery room, he was noted to be hemodynamically stable, moaning and groaning because of some discomfort in his surgical site. Otherwise patient was not in any distress, and he was mostly on nasal cannula. Labs this morning before the last 2 units of packed RBCs given his hemoglobin was 6.3 WBC count 19 electrolytes are normal renal profile is normal Seen today on 10/04/2024, patient is doing well, no further bleeding from his surgical wound, patient is hemodynamically stable, continues to have chronic pain, no shortness of breath no cough no wheezing WBC count is 13.6 hemoglobin 11.2 electrolytes are normal renal profile is normal patient received a total of 5 units of packed RBCs and 2 units of fresh frozen plasma since this admission his hemoglobin today is 11.2. Seen today on 11/01/2024, patient remains in the ICU he is now on overflow, needs to go to medical surgical floor. On room air, not in any distress. No cough no wheezing no shortness of breath, pain seems to be fairly under control. Labs today were reviewed he had a relatively normal electrolytes drawn normal renal profile blood sugar is 164. The patient is seen today October 06, 2024 in follow-up on the regular medical floor. Hospital day #27. Postoperative day #3 of a fascial dehiscence repair. On September 25, 2024 he had undergone a Rickie-en-Y gastrojejunostomy for SMA syndrome. He was transferred out of the ICU yesterday. He is currently resting in bed. Awake and alert in no acute distress. He is maintaining O2 saturations in the 90s on room air. He is febrile this morning with a axillary temperature of 102. He is tachycardic. Blood pressure stable. Chest x-ray shows a left basilar infiltrate/atelectasis. He is status post 5 units of packed red blood cells and 2 units of fresh frozen plasma thus far. White count 13.2. Hemoglobin 11.4. Platelets 179.. Creatinine 0.83. Glucose 162. He is being nourished with TPN at 80 mL/h. Lipids every 72 hours. He remains on antibiotics in the form of Zosyn. Heparin for DVT prophylaxis. The patient is seen today October 07, 2024 in follow-up on the regular medical floor. He is currently resting in bed. Awake and alert in no acute distress. Maintaining good O2 saturations in the 90s on room air oxygen. He is receiving TPN at 80 mL/h. Lipids every 72 hours. Normal saline at KVO. Heparin for DVT prophylaxis. Remains on antibiotics in the form of Zosyn. Sodium 149. Potassium 4.1. Bicarb 28. BUN 35. Creatinine 0.81. Glucose 172. Still without significant bowel function. He remains nothing by mouth. Objective - Vital Signs Vital signs: Vital Signs Temp 98.4 F 10/07/24 12:21 Pulse 120 H 10/07/24 12:21 Resp 22 10/07/24 12:21 BP 118/80 10/07/24 12:21 Pulse Ox 98 10/07/24 12:21 FiO2 Intake & Output 10/06/24 10/07/24 10/07/24 18:59 06:59 18:59 Intake Total 2107 Output Total 1300 600 Balance -1300 1507 Intake: IV 100 Piperacillin-Tazobactam 3 100 .375 gm In Sodium Chloride 0.9% 100 ml @ 25 mls/hr IVPB Q8H [facility] Rx#: [id number] Intake, IV Titration 2006 Amount Mvi, Adult No.4 with Vit 2007 K 10 ml Trace (Conc-1Ml/ Dose) 1 ml Calcium Gluconate 1 gm Potassium Acetate 46 meq Potassium Phosphate 9 mmol In Amino Acids 5 %/Dextrose 20 % 1,000 ml @ 80 mls/hr IV . BY [facility] Rx#: [id number] Output: Urine 1300 600 Other: Voiding Method Indwelling Catheter Indwelling Catheter Diaper - Exam GENERAL EXAM: Alert, frail, weak 68-year-old male, on room air, fairly comfortable in no apparent distress. HEAD: Normocephalic. EYES: Normal reaction of pupils, equal size. NOSE: Clear with pink turbinates. THROAT: No erythema or exudates. NECK: No masses, no JVD. CHEST: No chest wall deformity. LUNGS: Equal air entry with no crackles, wheeze, rhonchi or dullness. CVS: S1 and S2 normal with no audible murmur, regular rhythm. ABDOMEN: Incision clean dry well-approximated. PEG tube exit site clean and dry. Abdominal binder in place. No hepatosplenomegaly, no guarding or rigidity. SPINE: No scoliosis or deformity SKIN: No rashes CENTRAL NERVOUS SYSTEM: No focal deficits, tone is normal in all 4 extremities. EXTREMITIES: There is no peripheral edema. No clubbing, no cyanosis. Peripheral pulses are intact. - Labs CBC & Chem 7: 10/05/24 17:14 10/07/24 04:05 Labs: Abnormal Lab Results - Last 24 Hours (Table) 10/06/24 10/07/24 10/07/24 Range/Units 18:18 00:49 04:05 Sodium 149 H (137-145) mmol/L Chloride 114 H (98-107) mmol/L BUN 35 H (9-20) mg/dL Glucose 172 H (74-99) mg/dL POC Glucose (mg/dL) 127 H 160 H (70-110) mg/dL Calcium 8.3 L (8.4-10.2) mg/dL 10/07/24 10/07/24 Range/Units 06:01 12:24 Sodium (137-145) mmol/L Chloride (98-107) mmol/L BUN (9-20) mg/dL Glucose (74-99) mg/dL POC Glucose (mg/dL) 194 H 166 H (70-110) mg/dL Calcium (8.4-10.2) mg/dL Assessment and Plan Assessment: SMA syndrome status post gastrojejunostomy and J-tube placement on 09/25/24 Status post repair of fascial dehiscence on 10/03/2024 Acute blood loss anemia from fascial dehiscence requiring surgical repair 10/03/2024 Intractable nausea vomiting and upper GI bleed secondary to above improvement Bilateral aspiration pneumonia suspected Febrile illness secondary to above Hyponatremia Recurrent nausea vomiting, intractable requiring PEG tube placement during last admission. Epigastric pain and tenderness could be secondary to gastritis, status post Roex-en-Y gastrojejunostomy. S/p J-tube placement Severe calorie protein malnutrition Hypernatremia, improved Sinus tachycardia versus SVT requiring metoprolol clonidine patch, better controlled Elevated troponin could be secondary to SVT related dehydration, evaluated by cardiology during last admission Hypertension Hyperlipidemia Anxiety/depression, not on active issue History of hiatal hernia Poor overall functional status based on the above-mentioned multiple comorbidities Plan: The patient was seen and evaluated Labs and medications reviewed Antibiotics in the form of Zosyn Remains stable on room air oxygen Iincreased the use of the incentive spirometer Heparin for DVT prophylaxis Being nourished with TPN and lipids Awaiting bowel activity Prognosis remains guarded Increase his activity as tolerated Plan is for home with home care at discharge This patient was seen independently by the pulmonary nurse practitioner addressing pulmonary issues I have personally seen and examined the patient, performed the documentation and the assessment and plan as written. Number of minutes spent on the visit: 23 Dictation was produced using aCon dictation software. Please excuse any grammatical, word or spelling errors.
[2024-10-07 18:14] LABS: Glucose,Whole Blood 150 mg/dL (70-110)
[2024-10-08 00:10] LABS: Glucose,Whole Blood 158 mg/dL (70-110)
--- NOTE | 2024-10-08 00:49 | P.PN ---
Subjective Progress Note Date: 10/07/24 This is a pleasant 68 years old male who was recently discharged from this facility about 4 days ago for nausea vomiting and malnutrition status post PEG tube placement by surgery team. Once he been discharged he started having recurrent nausea vomiting again, he vomited 6 times since yesterday with no blood. Associated with epigastric pain and tenderness His troponin was elevated but EKG showing SVT. He has been evaluated by barn boss as well during last admission for elevated troponin. Currently denies chest pain or dyspnea. No specific urinary symptoms. No headache dizziness weakness or numbness He is pain mainly in the epigastric area about 9/10 felt like squeezing nonradiating with no precipitating or relieving factors. He states that the pain is similar to last time. He has no bowel movement. He is using the PEG tube at home. He got Zofran 4 mg and is requesting more medicine He is hemodynamically stable and afebrile He has unremarkable CBC, BMP, LFT. WBC is mildly elevated at 10.4 at 11. Lactic acid 4.6 came back to normal at 1.7. Troponin is elevated 0.065. KUB showing nonspecific gas bowel pattern. EKG showed SVT with a rate of [address] depression in V3-V5 Patient lying in bed with no dyspnea or chest pain He is vomiting of blood today. He still has nausea vomiting. He was on Zofran 8 mg we will going to add Reglan IV 5 and then 10 mg. hemoglobin stable at 12.4 with slight improvement. Vital stable. He is not on any blood thinners or aspirin. His on Protonix IV twice daily added today Also we added D5 normal saline Discussed the case with surgery team. CT of the abdomen pelvis with IV contrast is requested. Currently patient denies any abdominal pain or epigastric tenderness. /10 No vomiting today, looks tired No abdominal pain or tenderness PEG tube is in place and feeding tube on hold He still getting IV fluids and Zosyn Plan for EGD today with surgery team given his hematemesis yesterday. Hemoglobin was stable yesterday at 11.3 Monitor hemoglobin Continue with Protonix He is getting Reglan [id number] which prevent him from vomiting 09/25 i came to see the pt twice and he was no in his room 09/26 Patient seen and examined at bedside. He is awake and alert ,he is status post Roex-en-Y gastrojejunostomy. Today postop day #1 He still complaining from epigastric pain and mild tenderness with PEG tube placement to gravity. Patient is not getting tube feeding Patient is getting D5W at 100 mL/h, sodium improved 150 down to 146 today Also patient is getting Zosyn WBC 16.1, hemoglobin 8.4 and sodium 146 Is getting Reglan 5 mg as needed will added 10 mg 09/27 Patient remains with GI symptoms. PEG tube to gravity and patient received TPN. Still with nausea and some abdominal/epigastric pain and tenderness although partially improved. No other new complaint. Labs look stable or slightly improving with sodium 147, hemoglobin 13 and WBC down to 11.3 Nephrology consult was obtained Patient started on normal saline at 100 mL/h and D5W was stopped 09/28 Patient states he is the same over the last 2 days he still have some epigastric pain and tenderness which looks the same also he has some nausea and vomiting although he was taking Reglan. Also patient WBC went up to 13.3. Hemoglobin down to 9.3 Sodium 148 potassium 3.1 Replace potassium per protocol Started on D5W at give Ativan x 1 to help with anxiety and with nausea vomiting 09/29 Patient developed significant tachycardia last night and this morning with heart rate going up to 150 and 160/min. EKG showing sinus tachycardia. Heart rate improved down to 100 and blood pressure stable with systolic 120-150 It is thought multifactorial secondary to anxiety dehydration infection electrolyte abnormalities and pain. D-dimer is ordered but the suspicion for PE is low Patient with no chest pain or dyspnea, actually patient this is the first time he told me he feels better since I saw him from admission. He was sitting in chair with slight weakness. He still getting TPN Zosyn. He getting D5W at 50 mL/h but sodium increased to 152 so increase the dose to 125 mL/h Dilaudid added IV Lopressor 5 mg every 8 hours and clonidine patch 0.1 mg Also low potassium and magnesium being replaced. 09/30 Patient is lethargic today with some nausea. He denies epigastric abdominal pain. He is still tachycardic with heart around 120 WBC is 14.5, hemoglobin 9.6 and He remains on D5W at 125 Eliquis dose lowered to 2.5 10/01 Patient today feels improved and better he denies chest pain or dyspnea no epigastric pain or tenderness significant than the other days. PEG tube still in place but not working. Still getting TPN He still tachycardic and blood pressure still slightly on the high side, he got 3 doses of Lopressor 5 mg IV yesterday, we will going to increase his clonidine patch 0.2 up to 0.3. He has CTA of the chest done yesterday for suspicion of PE, no pulm embolism found however there is lung nodule 1.1 cm that he needs follow-up in 3 months for report also there is bilateral groundglass opacities and nodular lesions suspicious for pneumonia versus aspiration pneumonia versus cryptogenic organizing pneumonia. Also there is retained material or secretions or food in the lower esophagus which cause more with aspiration pneumonitis. Patient remains on IV Protonix for esophagitis Therefore patient remains on IV Zosyn. Low potassium but replace per protocol today The other thing his hypernatremia significantly improved 122 yesterday and 124 today while he is on D5 W at 75 mL today compared to 125 yesterday Check labs in the morning 10/02 Today patient feels tired weak and sweaty Blood pressure is low normal, became slightly tachycardic 115. His heart rate is getting controlled with the clonidine patch 0.3 mg and now requiring only once daily dose of IV Lopressor 5 mg over the last 2 days. His albumin is 2.0. His sodium 138 he remains on D5W. He is still getting TPN Will give IV albumin 25 % x 1 Hemoglobin 9.1 10/03 Patient developed severe bleeding from his epigastric wound and his abdominal wall with hemoglobin dropped down to 6.8 and 6.3 received several units of blood transfusion. He was taking to the operating room emergently by surgery team and the bleeding was stopped and the wound was sutured again. After that patient was taken to the ICU 10/04 Patient awake alert He feels comfortable He still has expected tenderness at the surgical site Pain is treated with IV Tylenol per surgery team 10/05 Patient awake alert sitting up in bed He denies vomiting Abdominal pain is better Blood pressure 92/65 10/06 He still has some epigastric abdominal pain that comes and goes. He rated about 5-7/10. Yesterday was 10/10 which looks improving Surgical vertical wound is with a dressing in place Patient getting TPN. 10/07/2024 Patient is seen in follow-up today with general surgery following and patient is maintained on TPN. Sodium remains elevated at 149 and per pharmacy notes no further sodium noted in the TPN. Tube feeds remain on hold. Patient continues with J-tube to drainage noted to have some biliary drainage and patient remains NPO. Patient also being followed by pulmonary maintained on room air and is not reporting any shortness of breath. Patient currently afebrile although is having intermittent low-grade temps and maintained on IV Zosyn. Prognosis remains guarded. Physical exam: GENERAL: The patient is lethargic although arousable, alert and oriented x3, not in any acute distress. Fatigues easily, somewhat confused well developed, ill- appearing, cachectic, significant muscle wasting noted. Thin built HEENT: Pupils are round and equally reacting to light. EOMI. No scleral icterus. No conjunctival pallor. Normocephalic, atraumatic. No pharyngeal erythema. No thyromegaly. CARDIOVASCULAR: S1 and S2 muffled PULMONARY: Diminished breath sounds bilaterally otherwise chest is clear to auscultation, no wheezing , no crackles. ABDOMEN: Soft, nontender, nondistended, hypoactive bowel sounds. No palpable organomegaly. PEG tube is in place with no Abdominal tenderness or guarding MUSCULOSKELETAL: No joint swelling or deformity. EXTREMITIES: No cyanosis, clubbing, or pedal edema. NEUROLOGICAL: Gross neurological examination did not reveal any focal deficits. Diffusely weak SKIN: No rashes. no petechiae. Assessment SMA syndrome status post gastrojejunostomy and J-tube placement on 09/25 Intractable nausea vomiting and upper GI bleed secondary to above, improvement Fascial wound dehiscence on 10/03 status post emergent surgical repair requiring multiple blood transfusion Bilateral aspiration pneumonia suspected Hypernatremia Recurrent nausea vomiting, intractable requiring PEG tube placement during last admission. Epigastric pain and tenderness could be secondary to gastritis, status post Roex-en-Y gastrojejunostomy. S/p J-tube placement Severe calorie protein malnutrition with a BMI of 11.6 Sinus tachycardia versus SVT requiring metoprolol clonidine patch, better controlled Elevated troponin could be secondary to SVT related dehydration, evaluated by cardiology during last admission Hypertension Hyperlipidemia Anxiety/depression, not on active issue Distal esophagitis Hiatal hernia seen on recent EKG GI prophylaxis DVT prophylaxis Full code Plan: Patient has been transferred out of the ICU with multiple consultations following. Patient remains n.p.o. maintained on TPN and tube feedings are also on hold per surgery. PEG tube remains to drainage Pulmonary following patient is maintained on room air with no reports of worsening shortness of breath continue n.p.o. status until bowel activity per surgery Follow-up on repeat labs and replace electrolytes per protocol Would recommend increased activity as tolerated and will recommend PT/OT therapy daily Overall prognosis is extremely guarded at this time The impression and plan of care has been dictated by Yanira Linda, Nurse Practitioner as directed. Dr. Bentley MD I have performed a history and examination and MDM of this patient, discussed the same with the dictator, and agree with the dictator's assessment and plan as written ,documented as a scribe. Based on total visit time, I have performed more than 50% of the visit. Objective - Vital Signs Vital signs: Vital Signs Temp 99.9 F H 10/07/24 07:27 Pulse 63 10/07/24 07:27 Resp 18 10/07/24 07:27 BP 128/76 10/07/24 07:27 Pulse Ox 91 L 10/07/24 07:27 FiO2 Intake & Output 10/06/24 10/07/24 10/07/24 18:59 06:59 18:59 Intake Total 1060 Output Total 1300 600 Balance -1300 460 Intake: IV 100 Piperacillin-Tazobactam 3 100 .375 gm In Sodium Chloride 0.9% 100 ml @ 25 mls/hr IVPB Q8H [facility] Rx#: [id number] Intake, IV Titration 960 Amount Mvi, Adult No.4 with Vit 960 K 10 ml Trace (Conc-1Ml/ Dose) 1 ml Calcium Gluconate 1 gm Potassium Acetate 46 meq Potassium Phosphate 9 mmol In Amino Acids 5 %/Dextrose 20 % 1,000 ml @ 80 mls/hr IV . BY D[facility] Rx#: [id number] Output: Urine 1300 600 Other: Voiding Method Indwelling Catheter Indwelling Catheter - Labs CBC & Chem 7: 10/05/24 17:14 10/07/24 04:05 Labs: Abnormal Lab Results - Last 24 Hours (Table) 10/06/24 10/06/24 10/07/24 Range/Units 12:03 18:18 00:49 Sodium (137-145) mmol/L Chloride (98-107) mmol/L BUN (9-20) mg/dL Glucose (74-99) mg/dL POC Glucose (mg/dL) 195 H 127 H 160 H (70-110) mg/dL Calcium (8.4-10.2) mg/dL 10/07/24 10/07/24 Range/Units 04:05 06:01 Sodium 149 H (137-145) mmol/L Chloride 114 H (98-107) mmol/L BUN 35 H (9-20) mg/dL Glucose 172 H (74-99) mg/dL POC Glucose (mg/dL) 194 H (70-110) mg/dL Calcium 8.3 L (8.4-10.2) mg/dL
[2024-10-08] MEDS: ANIDULAFUNGIN 200 MG in SODIUM CHLORIDE 0.9% 200 ML IVPB ONE (03:33)
[2024-10-08 06:10] LABS: Glucose,Whole Blood 182 mg/dL (70-110)
[2024-10-08] MEDS ORDERED: METOPROLOL TARTRATE 5 MG/5 ML VIAL IVP PRN (06:20)
[2024-10-08 07:47] LABS: Glucose,Whole Blood 199 mg/dL (70-110)
[2024-10-08 08:27] LABS: Blood Urea Nitrogen 35.1 mg/dL (9.0-27.0); Carbon Dioxide 21.8 mmol/L (21.6-31.8); Chloride 117 mmol/L (96-109); Glucose 203 mg/dL (70-110); Magnesium 1.7 mg/dL (1.5-2.4); Potassium 3.8 mmol/L (3.5-5.5); Sodium 149 mmol/L (135-145)
--- NOTE | 2024-10-08 10:24 | P.PN ---
Subjective Progress Note Date: 10/08/24 SURGICAL PROGRESS NOTE CHIEF COMPLAINT: Recurrent nausea and vomiting HISTORY OF PRESENT ILLNESS: Postop day #5 status post repair of fascial dehiscence upper incision of the midline incision. Status post Rickie-en-Y gastrojejunostomy on 09/25/24. Patient sitting up in bed. He did have a small amount of clear spit up and the basin. Peg tube to drainage with bilious output. Tachycardic. Patient with positive blood culture with yeast. Medicine service has consulted infectious disease and added Eraxis Patient seen and examined by Dr. Lovett who is covering for Dr. Pavon PHYSICAL EXAM: VITAL SIGNS: Reviewed. GENERAL: Well-developed in no acute distress. ABDOMEN: Soft. Nondistended. Midline incision clean dry and intact. NEUROLOGIC: Alert and oriented. Cranial nerves II through XII grossly intact. ASSESSMENT: 1. SMA syndrome 2. Upper GI bleed with bright red blood and coffee-ground emesis. now resolved 3. Intractable nausea and vomiting 4. History of esophageal dysmotility disorder 5. Hiatal hernia 6. Esophagitis 7. Severe protein calorie malnutrition 8. Leukocytosis is reactive from surgery 9. Anemia secondary to malnutrition. 10. Fascial dehiscence of incision status post repair PLAN: -At some point consideration for PEJ tube down the Rickie limb -Continue to monitor -Keep patient n.p.o. until bowel function occurs -Continue TPN for nutrition support -keep peg tube to drainage -Continue antibiotics -DVT prophylaxis subcu heparin Physician Business Programmer note has been reviewed by physician. Signing provider agrees with the documented findings, assessment, and plan of care. Objective - Vital Signs Vital signs: Vital Signs Temp 98.1 F 10/08/24 07:55 Pulse 112 H 10/08/24 08:58 Resp 20 10/08/24 07:55 BP 158/98 10/08/24 07:55 Pulse Ox 95 10/08/24 08:58 FiO2 Intake & Output 10/07/24 10/08/24 10/08/24 18:59 06:59 18:59 Intake Total 1036 Output Total 300 Balance 1036 -300 Weight 34.5 kg Intake: Intake, IV Titration 1036 Amount Calcium Gluconate 1 gm 1036 Potassium Acetate 46 meq Potassium Phosphate 9 mmol In Amino Acids 5 %/ Dextrose 20 % 1,000 ml @ 80 mls/hr IV .BY D[facility]ATION [facility] Rx#:[id number] Output: Drainage 300 Abdomen 300 Other: Voiding Method Diaper Diaper Diaper # Voids 1 3 - Labs CBC & Chem 7: 10/05/24 17:14 10/08/24 05:20 Labs: Abnormal Lab Results - Last 24 Hours (Table) 10/07/24 10/07/24 10/08/24 Range/Units 12:24 18:12 00:08 Sodium (135-145) mmol/L Chloride (96-109) mmol/L BUN (9.0-27.0) mg/dL BUN/Creatinine Ratio (12.00-20.00) Ratio Glucose (70-110) mg/dL POC Glucose (mg/dL) 166 H 150 H 158 H (70-110) mg/dL Calcium (8.7-10.3) mg/dL 10/08/24 10/08/24 10/08/24 Range/Units 05:20 06:08 07:42 Sodium 149 H (135-145) mmol/L Chloride 117 H (96-109) mmol/L BUN 35.1 H (9.0-27.0) mg/dL BUN/Creatinine Ratio 39.00 H (12.00-20.00) Ratio Glucose 203 H (70-110) mg/dL POC Glucose (mg/dL) 182 H 199 H (70-110) mg/dL Calcium 8.0 L (8.7-10.3) mg/dL Microbiology - Last 24 Hours (Table) 10/06/24 08:29 Blood Culture Gram Stain - Preliminary Blood Blood Culture - Preliminary Molecular ID
--- NOTE | 2024-10-08 10:50 | P.PN ---
Subjective Patient is seen in follow-up for hypernatremia. Sodium level stable at 149 today. Receiving TPN. Also on D5W. Vital signs are stable. General: No acute distress. HEENT: Head exam is unremarkable. LUNGS: No audible rhonchi or wheezes. HEART: Rate and Rhythm are regular. ABDOMEN: J-tube noted. EXTREMITITES: No edema. Objective - Vital Signs Vital signs: Vital Signs Temp 98.1 F 10/08/24 07:55 Pulse 112 H 10/08/24 08:58 Resp 20 10/08/24 07:55 BP 158/98 10/08/24 07:55 Pulse Ox 95 10/08/24 08:58 FiO2 Intake & Output 10/07/24 10/08/24 10/08/24 18:59 06:59 18:59 Intake Total 1036 Output Total 300 Balance 1036 -300 Weight 34.5 kg Intake: Intake, IV Titration 1036 Amount Calcium Gluconate 1 gm 1036 Potassium Acetate 46 meq Potassium Phosphate 9 mmol In Amino Acids 5 %/ Dextrose 20 % 1,000 ml @ 80 mls/hr IV .BY D[facility]ATION [facility] Rx#:[id number] Output: Drainage 300 Abdomen 300 Other: Voiding Method Diaper Diaper Diaper # Voids 1 3 - Labs CBC & Chem 7: 10/05/24 17:14 10/08/24 05:20 Labs: Abnormal Lab Results - Last 24 Hours (Table) 10/07/24 10/07/24 10/08/24 Range/Units 12:24 18:12 00:08 Sodium (135-145) mmol/L Chloride (96-109) mmol/L BUN (9.0-27.0) mg/dL BUN/Creatinine Ratio (12.00-20.00) Ratio Glucose (70-110) mg/dL POC Glucose (mg/dL) 166 H 150 H 158 H (70-110) mg/dL Calcium (8.7-10.3) mg/dL 10/08/24 10/08/24 10/08/24 Range/Units 05:20 06:08 07:42 Sodium 149 H (135-145) mmol/L Chloride 117 H (96-109) mmol/L BUN 35.1 H (9.0-27.0) mg/dL BUN/Creatinine Ratio 39.00 H (12.00-20.00) Ratio Glucose 203 H (70-110) mg/dL POC Glucose (mg/dL) 182 H 199 H (70-110) mg/dL Calcium 8.0 L (8.7-10.3) mg/dL Microbiology - Last 24 Hours (Table) 10/06/24 08:29 Blood Culture Gram Stain - Preliminary Blood Blood Culture - Preliminary Molecular ID Assessment and Plan Plan: Assessment: 1. Hypernatremia from lack of oral water intake. Sodium level 149 today. 2. SMA syndrome. Surgery following. 3. Status post J-tube placement September 25, 2024. 4. Hypokalemia from poor intake. Status post replacement. Magnesium normal. 5. Alehtea bacteremia. Plan: TPN per surgery. Continue to lower sodium content in TPN as able. Increase rate of D5W to 100 cc an hour. Labs in the morning.
[2024-10-08 12:03] LABS: Glucose,Whole Blood 187 mg/dL (70-110)
--- NOTE | 2024-10-08 12:23 | P.PN ---
Subjective Progress Note Date: 10/08/24 This is a 68-year-old white male admitted on 09/09/2024, his chief complaint at the time was nausea vomiting and diarrhea. Patient was seen by surgery on consultation, he was seen on 09/10/2024, felt that the patient has intractable nausea and vomiting, he had history of esophageal dysmotility disorder, hiatal hernia, and esophagitis. On 09/12 patient underwent EGD, there was no evidence of gastric obstruction, there was a few clots around the PEG tube, there was no active bleeding, patient was found to have a small hiatal hernia at the GE junction, distal esophagus was normal. 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 Last night, patient developed wound dehiscence and he was having significant amount of bleeding from the surgical site/wound dehiscence. Patient required a total of 4 units of packed RBCs and required 2 units of fresh frozen plasma. Today patient underwent surgical repair of his fascial dehiscence with intraperitoneal blood clots related to previous bleeding from abdominal wall. His bleeding was surgically controlled, however considering the amount of bleeding that the patient had in the last 24 hours, I was asked to admit the patient to the ICU for monitoring for the next 24 hours. I saw the patient in the recovery room, he was noted to be hemodynamically stable, moaning and groaning because of some discomfort in his surgical site. Otherwise patient was not in any distress, and he was mostly on nasal cannula. Labs this morning before the last 2 units of packed RBCs given his hemoglobin was 6.3 WBC count 19 electrolytes are normal renal profile is normal Seen today on 10/04/2024, patient is doing well, no further bleeding from his surgical wound, patient is hemodynamically stable, continues to have chronic pain, no shortness of breath no cough no wheezing WBC count is 13.6 hemoglobin 11.2 electrolytes are normal renal profile is normal patient received a total of 5 units of packed RBCs and 2 units of fresh frozen plasma since this admission his hemoglobin today is 11.2. Seen today on 11/01/2024, patient remains in the ICU he is now on overflow, needs to go to medical surgical floor. On room air, not in any distress. No cough no wheezing no shortness of breath, pain seems to be fairly under control. Labs today were reviewed he had a relatively normal electrolytes drawn normal renal profile blood sugar is 164. The patient is seen today October 06, 2024 in follow-up on the regular medical floor. Hospital day #27. Postoperative day #3 of a fascial dehiscence repair. On September 25, 2024 he had undergone a Rickie-en-Y gastrojejunostomy for SMA syndrome. He was transferred out of the ICU yesterday. He is currently resting in bed. Awake and alert in no acute distress. He is maintaining O2 saturations in the 90s on room air. He is febrile this morning with a axillary temperature of 102. He is tachycardic. Blood pressure stable. Chest x-ray shows a left basilar infiltrate/atelectasis. He is status post 5 units of packed red blood cells and 2 units of fresh frozen plasma thus far. White count 13.2. Hemoglobin 11.4. Platelets 179.. Creatinine 0.83. Glucose 162. He is being nourished with TPN at 80 mL/h. Lipids every 72 hours. He remains on antibiotics in the form of Zosyn. Heparin for DVT prophylaxis. The patient is seen today October 07, 2024 in follow-up on the regular medical floor. He is currently resting in bed. Awake and alert in no acute distress. Maintaining good O2 saturations in the 90s on room air oxygen. He is receiving TPN at 80 mL/h. Lipids every 72 hours. Normal saline at KVO. Heparin for DVT prophylaxis. Remains on antibiotics in the form of Zosyn. Sodium 149. Potassium 4.1. Bicarb 28. BUN 35. Creatinine 0.81. Glucose 172. Still without significant bowel function. He remains nothing by mouth. The patient is seen today October 08, 2024 in follow-up on the regular medical floor. He is currently awake and alert in no acute distress. Sitting up in bed. Maintaining O2 saturations in the 90s on room air. He has been afebrile. Hemodynamically stable. Blood culture currently showing yeast. Sodium 149. Potassium 3.8. Bicarb 22. BUN 35. Creatinine 0.9. Glucose 203. He has been initiated on Eraxis. On D5W at 70 mL/h. Remains on TPN and lipids for nutritional support. Remains on Zosyn. Heparin for DVT prophylaxis. Remains nothing by mouth. PEG tube to drainage. Objective - Vital Signs Vital signs: Vital Signs Temp 98.1 F 10/08/24 07:55 Pulse 112 H 10/08/24 08:58 Resp 20 10/08/24 07:55 BP 158/98 10/08/24 07:55 Pulse Ox 95 10/08/24 08:58 FiO2 Intake & Output 10/07/24 10/08/24 10/08/24 18:59 06:59 18:59 Intake Total 1036 Output Total 300 Balance 1036 -300 Weight 34.5 kg Intake: Intake, IV Titration 1036 Amount Calcium Gluconate 1 gm 1036 Potassium Acetate 46 meq Potassium Phosphate 9 mmol In Amino Acids 5 %/ Dextrose 20 % 1,000 ml @ 80 mls/hr IV .BY DURATION [facility] Rx#:[id number] Output: Drainage 300 Abdomen 300 Other: Voiding Method Diaper Diaper Diaper # Voids 1 3 - Exam GENERAL EXAM: Alert, frail, weak 68-year-old male, sitting up in bed, on room air, comfortable in no apparent distress. HEAD: Normocephalic. EYES: Normal reaction of pupils, equal size. NOSE: Clear with pink turbinates. THROAT: No erythema or exudates. NECK: No masses, no JVD. CHEST: No chest wall deformity. LUNGS: Equal air entry with no crackles, wheeze, rhonchi or dullness. CVS: S1 and S2 normal with no audible murmur, regular rhythm. ABDOMEN: Incision clean dry well-approximated. PEG tube exit site clean and dry. Abdominal binder in place. No hepatosplenomegaly, no guarding or rigidity. SPINE: No scoliosis or deformity SKIN: No rashes CENTRAL NERVOUS SYSTEM: No focal deficits, tone is normal in all 4 extremities. EXTREMITIES: There is no peripheral edema. No clubbing, no cyanosis. Peripheral pulses are intact. - Labs CBC & Chem 7: 10/05/24 17:14 10/08/24 05:20 Labs: Abnormal Lab Results - Last 24 Hours (Table) 10/07/24 10/07/24 10/08/24 Range/Units 12:24 18:12 00:08 Sodium (135-145) mmol/L Chloride (96-109) mmol/L BUN (9.0-27.0) mg/dL BUN/Creatinine Ratio (12.00-20.00) Ratio Glucose (70-110) mg/dL POC Glucose (mg/dL) 166 H 150 H 158 H (70-110) mg/dL Calcium (8.7-10.3) mg/dL 10/08/24 10/08/24 10/08/24 Range/Units 05:20 06:08 07:42 Sodium 149 H (135-145) mmol/L Chloride 117 H (96-109) mmol/L BUN 35.1 H (9.0-27.0) mg/dL BUN/Creatinine Ratio 39.00 H (12.00-20.00) Ratio Glucose 203 H (70-110) mg/dL POC Glucose (mg/dL) 182 H 199 H (70-110) mg/dL Calcium 8.0 L (8.7-10.3) mg/dL 10/08/24 Range/Units 11:57 Sodium (135-145) mmol/L Chloride (96-109) mmol/L BUN (9.0-27.0) mg/dL BUN/Creatinine Ratio (12.00-20.00) Ratio Glucose (70-110) mg/dL POC Glucose (mg/dL) 187 H (70-110) mg/dL Calcium (8.7-10.3) mg/dL Microbiology - Last 24 Hours (Table) 10/06/24 08:29 Blood Culture Gram Stain - Preliminary Blood Blood Culture - Preliminary Molecular ID Assessment and Plan Assessment: SMA syndrome status post gastrojejunostomy and J-tube placement on 09/25/24 Status post repair of fascial dehiscence on 10/03/2024 Acute blood loss anemia from fascial dehiscence requiring surgical repair 10/03/2024 Intractable nausea vomiting and upper GI bleed secondary to above improvement Bilateral aspiration pneumonia suspected Febrile illness secondary to above Hyponatremia Recurrent nausea vomiting, intractable requiring PEG tube placement during last admission. Epigastric pain and tenderness could be secondary to gastritis, status post Roex-en-Y gastrojejunostomy. S/p J-tube placement Blood cultures positive for yeast Severe calorie protein malnutrition Hypernatremia Sinus tachycardia versus SVT requiring metoprolol clonidine patch, better co ntrolled Elevated troponin could be secondary to SVT related dehydration, evaluated by cardiology during last admission Hypertension Hyperlipidemia Anxiety/depression, not on active issue History of hiatal hernia Poor overall functional status based on the above-mentioned multiple comorbidities Plan: The patient was seen and evaluated Labs and medications reviewed Antibiotics in the form of Zosyn Initiated on Eraxis Remains stable on room air oxygen Iincreased the use of the incentive spirometer Heparin for DVT prophylaxis Being nourished with TPN and lipids Awaiting bowel activity Prognosis remains guarded Increase his activity as tolerated I have personally seen and examined the patient, performed the documentation and the assessment and plan as written. Number of minutes spent on the visit: 10 Dictation was produced using [employer] dictation software. Please excuse any grammatical, word or spelling errors.
[2024-10-08] MEDS: ANIDULAFUNGIN 100 MG in SODIUM CHLORIDE 0.9% 100 ML IVPB SCH (14:18)
--- NOTE | 2024-10-08 15:25 | P.PN ---
Subjective Progress Note Date: 10/08/24 Principal diagnosis: Intractable vomiting Patient had an episode of bilious emesis. Looking at the patient's gastrostomy tube it looked like it may have been kinked somewhat. Mild abdominal discomfort. Unchanged from previous. Mild tachycardia today. Objective - Vital Signs Vital signs: Vital Signs Temp 98.3 F 10/08/24 14:00 Pulse 106 H 10/08/24 14:00 Resp 18 10/08/24 14:00 BP 157/90 10/08/24 14:00 Pulse Ox 99 10/08/24 14:00 FiO2 Intake & Output 10/07/24 10/08/24 10/08/24 18:59 06:59 18:59 Intake Total 1036 1047 Output Total 300 Balance 1036 747 Weight 34.5 kg Intake: Intake, IV Titration 1036 1047 Amount Calcium Gluconate 1 gm 1036 Potassium Acetate 46 meq Potassium Phosphate 9 mmol In Amino Acids 5 %/ Dextrose 20 % 1,000 ml @ 80 mls/hr IV .BY [facility] Rx#:[id number] Mvi, Adult No.4 with Vit 1047 K 10 ml Trace (Conc-1Ml/ Dose) 1 ml Calcium Gluconate 1 gm Potassium Acetate 46 meq Potassium Phosphate 9 mmol In Amino Acids 5 %/Dextrose 20 % 1,000 ml @ 80 mls/hr IV . BY DURATION [facility] Rx#: [id number] Output: Drainage 300 Abdomen 300 Other: Voiding Method Diaper Diaper Diaper # Voids 1 3 - Exam Abdomen: Soft, nondistended, mild tenderness, incision clean and dry - Labs CBC & Chem 7: 10/05/24 17:14 10/08/24 05:20 Labs: Abnormal Lab Results - Last 24 Hours (Table) 10/07/24 10/08/24 10/08/24 Range/Units 18:12 00:08 05:20 Sodium 149 H (135-145) mmol/L Chloride 117 H (96-109) mmol/L BUN 35.1 H (9.0-27.0) mg/dL BUN/Creatinine Ratio 39.00 H (12.00-20.00) Ratio Glucose 203 H (70-110) mg/dL POC Glucose (mg/dL) 150 H 158 H (70-110) mg/dL Calcium 8.0 L (8.7-10.3) mg/dL 10/08/24 10/08/24 10/08/24 Range/Units 06:08 07:42 11:57 Sodium (135-145) mmol/L Chloride (96-109) mmol/L BUN (9.0-27.0) mg/dL BUN/Creatinine Ratio (12.00-20.00) Ratio Glucose (70-110) mg/dL POC Glucose (mg/dL) 182 H 199 H 187 H (70-110) mg/dL Calcium (8.7-10.3) mg/dL Microbiology - Last 24 Hours (Table) 10/06/24 08:29 Blood Culture Gram Stain - Preliminary Blood Blood Culture - Preliminary Molecular ID Assessment and Plan (1) Abdominal pain Narrative/Plan: Patient doing about the same. Episode of emesis today. Will flush gastrostomy tube with tap water. Keep G-tube to dependent drainage. Continue TPN. Current Visit: Yes Status: Acute Code(s): R10.9 - UNSPECIFIED ABDOMINAL PAIN SNOMED Code(s): 08078796
[2024-10-08 17:40] LABS: Glucose,Whole Blood 183 mg/dL (70-110)
[2024-10-08 20:19] LABS: Glucose,Whole Blood 141 mg/dL (70-110)
[2024-10-09 00:24] LABS: Glucose,Whole Blood 175 mg/dL (70-110)
[2024-10-09 04:56] LABS: Basophils # (A) 0.03 10*3/uL (0.00-0.10); Basophils % (A) 0.3 %; Eosinophils # (A) 0.22 10*3/uL (0.04-0.35); Eosinophils % (A) 2.1 %; HCT 27.4 % (39.6-50.0); Lymphocytes # (A) 0.71 10*3/uL (0.90-5.00); Lymphocytes % (A) 6.9 %; MCHC 33.2 g/dL (32.0-37.0); MCV 93.2 fL (80.0-97.0); Mean Platelet Volume 13.7 fL (9.5-12.2); Monocytes # (A) 0.23 10*3/uL (0.20-1.00); Monocytes % (A) 2.2 %; Neutrophils # (A) 8.95 10*3/uL (1.80-7.70); Neutrophils % (A) 87.2 %; Platelet Count 175 10*3/uL (140-440); RBC 2.94 10*6/uL (4.40-5.60); RDW 16.3 % (11.5-14.5); WBC 10.27 10*3/uL (4.50-10.00)
[2024-10-09 05:15] LABS: ALT 65 U/L (4-49); AST 74 U/L (17-59); African American GFR (CKD) >90 (>60 ml/min/1.73 sqM); Albumin/Globulin Ratio 0.7; Alkaline Phosphatase 380 U/L (38-126); Anion Gap 8 mmol/L; Blood Urea Nitrogen 34 mg/dL (9-20); Calcium 8.1 mg/dL (8.4-10.2); Carbon Dioxide 23 mmol/L (22-30); Chloride 110 mmol/L (98-107); Globulin 2.7 g/dL; Glucose 167 mg/dL (74-99); Magnesium 1.5 mg/dL (1.6-2.3); Non-African American GFR(CKD) >90 (>60 ml/min/1.73 sqM); Phosphorus 2.8 mg/dL (2.5-4.5); Potassium 3.8 mmol/L (3.5-5.1); Sodium 141 mmol/L (137-145); Total Bilirubin 0.9 mg/dL (0.2-1.3); Total Protein 4.7 g/dL (6.3-8.2)
[2024-10-09 05:27] LABS: HGB 9.1 g/dL (13.0-17.0)
--- NOTE | 2024-10-09 05:28 | P.PN ---
Subjective Progress Note Date: 10/08/24 This is a pleasant 68 years old male who was recently discharged from this facility about 4 days ago for nausea vomiting and malnutrition status post PEG tube placement by surgery team. Once he been discharged he started having recurrent nausea vomiting again, he vomited 6 times since yesterday with no blood. Associated with epigastric pain and tenderness His troponin was elevated but EKG showing SVT. He has been evaluated by exchange administrator as well during last admission for elevated troponin. Currently denies chest pain or dyspnea. No specific urinary symptoms. No headache dizziness weakness or numbness He is pain mainly in the epigastric area about 9/10 felt like squeezing nonradiating with no precipitating or relieving factors. He states that the pain is similar to last time. He has no bowel movement. He is using the PEG tube at home. He got Zofran 4 mg and is requesting more medicine He is hemodynamically stable and afebrile He has unremarkable CBC, BMP, LFT. WBC is mildly elevated at 10.4 at 11. Lactic acid 4.6 came back to normal at 1.7. Troponin is elevated 0.065. KUB showing nonspecific gas bowel pattern. EKG showed SVT with a rate of [address] depression in V3-V5 Patient lying in bed with no dyspnea or chest pain He is vomiting of blood today. He still has nausea vomiting. He was on Zofran 8 mg we will going to add Reglan IV 5 and then 10 mg. hemoglobin stable at 12.4 with slight improvement. Vital stable. He is not on any blood thinners or aspirin. His on Protonix IV twice daily added today Also we added D5 normal saline Discussed the case with surgery team. CT of the abdomen pelvis with IV contrast is requested. Currently patient denies any abdominal pain or epigastric tenderness. /10 No vomiting today, looks tired No abdominal pain or tenderness PEG tube is in place and feeding tube on hold He still getting IV fluids and Zosyn Plan for EGD today with surgery team given his hematemesis yesterday. Hemoglobin was stable yesterday at 11.3 Monitor hemoglobin Continue with Protonix He is getting Reglan [id number] which prevent him from vomiting 09/25 i came to see the pt twice and he was no in his room 09/26 Patient seen and examined at bedside. He is awake and alert ,he is status post Roex-en-Y gastrojejunostomy. Today postop day #1 He still complaining from epigastric pain and mild tenderness with PEG tube placement to gravity. Patient is not getting tube feeding Patient is getting D5W at 100 mL/h, sodium improved 150 down to 146 today Also patient is getting Zosyn WBC 16.1, hemoglobin 8.4 and sodium 146 Is getting Reglan 5 mg as needed will added 10 mg 09/27 Patient remains with GI symptoms. PEG tube to gravity and patient received TPN. Still with nausea and some abdominal/epigastric pain and tenderness although partially improved. No other new complaint. Labs look stable or slightly improving with sodium 147, hemoglobin 13 and WBC down to 11.3 Nephrology consult was obtained Patient started on normal saline at 100 mL/h and D5W was stopped 09/28 Patient states he is the same over the last 2 days he still have some epigastric pain and tenderness which looks the same also he has some nausea and vomiting although he was taking Reglan. Also patient WBC went up to 13.3. Hemoglobin down to 9.3 Sodium 148 potassium 3.1 Replace potassium per protocol Started on D5W at give Ativan x 1 to help with anxiety and with nausea vomiting 09/29 Patient developed significant tachycardia last night and this morning with heart rate going up to 150 and 160/min. EKG showing sinus tachycardia. Heart rate improved down to 100 and blood pressure stable with systolic 120-150 It is thought multifactorial secondary to anxiety dehydration infection electrolyte abnormalities and pain. D-dimer is ordered but the suspicion for PE is low Patient with no chest pain or dyspnea, actually patient this is the first time he told me he feels better since I saw him from admission. He was sitting in chair with slight weakness. He still getting TPN Zosyn. He getting D5W at 50 mL/h but sodium increased to 152 so increase the dose to 125 mL/h Dilaudid added IV Lopressor 5 mg every 8 hours and clonidine patch 0.1 mg Also low potassium and magnesium being replaced. 09/30 Patient is lethargic today with some nausea. He denies epigastric abdominal pain. He is still tachycardic with heart around 120 WBC is 14.5, hemoglobin 9.6 and He remains on D5W at 125 Eliquis dose lowered to 2.5 10/01 Patient today feels improved and better he denies chest pain or dyspnea no epigastric pain or tenderness significant than the other days. PEG tube still in place but not working. Still getting TPN He still tachycardic and blood pressure still slightly on the high side, he got 3 doses of Lopressor 5 mg IV yesterday, we will going to increase his clonidine patch 0.2 up to 0.3. He has CTA of the chest done yesterday for suspicion of PE, no pulm embolism found however there is lung nodule 1.1 cm that he needs follow-up in 3 months for report also there is bilateral groundglass opacities and nodular lesions suspicious for pneumonia versus aspiration pneumonia versus cryptogenic organizing pneumonia. Also there is retained material or secretions or food in the lower esophagus which cause more with aspiration pneumonitis. Patient remains on IV Protonix for esophagitis Therefore patient remains on IV Zosyn. Low potassium but replace per protocol today The other thing his hypernatremia significantly improved 122 yesterday and 124 today while he is on D5 W at 75 mL today compared to 125 yesterday Check labs in the morning 10/02 Today patient feels tired weak and sweaty Blood pressure is low normal, became slightly tachycardic 115. His heart rate is getting controlled with the clonidine patch 0.3 mg and now requiring only once daily dose of IV Lopressor 5 mg over the last 2 days. His albumin is 2.0. His sodium 138 he remains on D5W. He is still getting TPN Will give IV albumin 25 % x 1 Hemoglobin 9.1 10/03 Patient developed severe bleeding from his epigastric wound and his abdominal wall with hemoglobin dropped down to 6.8 and 6.3 received several units of blood transfusion. He was taking to the operating room emergently by surgery team and the bleeding was stopped and the wound was sutured again. After that patient was taken to the ICU 10/04 Patient awake alert He feels comfortable He still has expected tenderness at the surgical site Pain is treated with IV Tylenol per surgery team 10/05 Patient awake alert sitting up in bed He denies vomiting Abdominal pain is better Blood pressure 92/65 10/06 He still has some epigastric abdominal pain that comes and goes. He rated about 5-7/10. Yesterday was 10/10 which looks improving Surgical vertical wound is with a dressing in place Patient getting TPN. 10/07/2024 Patient is seen in follow-up today with general surgery following and patient is maintained on TPN. Sodium remains elevated at 149 and per pharmacy notes no further sodium noted in the TPN. Tube feeds remain on hold. Patient continues with J-tube to drainage noted to have some biliary drainage and patient remains NPO. Patient also being followed by pulmonary maintained on room air and is not reporting any shortness of breath. Patient currently afebrile although is having intermittent low-grade temps and maintained on IV Zosyn. Prognosis remains guarded. 10/08/2024 Patient seen in follow-up today with no significant improvements noted reporting continued nausea With vomiting today NG tube remains to drainage per general surgery and is continued on TPN. Sodium remains elevated at 149 and nephrology following as well adjusted IV hydration and will follow up on repeat labs. Patient did have a preliminary blood culture that was positive and infectious disease was consulted patient is maintained on Zosyn and repeat blood cultures pending. Concerns about possible PICC line contamination. Patient is afebrile with no reports of chest pain or shortness of breath. Encouraged to increase activity as tolerated although patient is mostly bedbound. Prognosis is guarded. Physical exam: GENERAL: The patient is lethargic although arousable, alert and oriented x3, not in any acute distress. Fatigues easily, somewhat confused well developed, ill- appearing, cachectic, significant muscle wasting noted. Thin built HEENT: Pupils are round and equally reacting to light. EOMI. No scleral icterus. No conjunctival pallor. Normocephalic, atraumatic. No pharyngeal erythema. No thyromegaly. CARDIOVASCULAR: S1 and S2 muffled PULMONARY: Diminished breath sounds bilaterally otherwise chest is clear to auscultation, no wheezing , no crackles. ABDOMEN: Soft, nontender, nondistended, hypoactive bowel sounds. No palpable organomegaly. PEG tube is in place with no Abdominal tenderness or guarding MUSCULOSKELETAL: No joint swelling or deformity. EXTREMITIES: No cyanosis, clubbing, or pedal edema. NEUROLOGICAL: Gross neurological examination did not reveal any focal deficits. Diffusely weak SKIN: No rashes. no petechiae. 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 Epigastric pain and tenderness could be secondary to gastritis, status post Roex-en-Y gastrojejunostomy. S/p J-tube placement Severe calorie protein malnutrition with a BMI of 11.6 Sinus tachycardia versus SVT requiring metoprolol clonidine patch, better controlled Elevated troponin could be secondary to SVT related dehydration, evaluated by cardiology during last admission Hypertension Hyperlipidemia Anxiety/depression, not on active issue Distal esophagitis Hiatal hernia seen on recent EKG GI prophylaxis DVT prophylaxis Full code Plan: Patient is being closely monitored with multiple consultations following including infectious disease as patient had a blood culture positive from 10/06/2024. Repeat blood culture ordered via PICC line and pending Patient remains n.p.o. maintained on TPN and tube feedings are also on hold per surgery. G tube remains to drainage Pulmonary following patient is maintained on room air with no reports of worsening shortness of breath continue n.p.o. status until bowel activity per surgery. Patient did have an episode of vomiting and was concerns for possible G-tube kinked and general surgery evaluating Follow-up on repeat labs and replace electrolytes per protocol Would recommend increased activity as tolerated and will recommend PT/OT therapy daily Overall prognosis is extremely guarded at this time The impression and plan of care has been dictated by Yanira Linda, Nurse Practitioner as directed. Dr. Bentley MD I have performed a history and examination and MDM of this patient, discussed the same with the dictator, and agree with the dictator's assessment and plan as written ,documented as a scribe. Based on total visit time, I have performed more than 50% of the visit. Objective - Vital Signs Vital signs: Vital Signs Temp 98.4 F 10/09/24 02:00 Pulse 99 10/09/24 02:00 Resp 16 10/09/24 02:00 BP 129/82 10/09/24 02:00 Pulse Ox 97 10/09/24 02:00 FiO2 Intake & Output 10/08/24 10/08/24 10/09/24 06:59 18:59 06:59 Intake Total 1047 1036 Output Total 300 50 Balance 747 986 Intake: Intake, IV Titration 1047 1036 Amount Calcium Gluconate 1 gm 1036 Potassium Acetate 46 meq Potassium Phosphate 9 mmol In Amino Acids 5 %/ Dextrose 20 % 1,000 ml @ 80 mls/hr IV .BY DURATION [facility] Rx#:[id number] Mvi, Adult No.4 with Vit 1047 K 10 ml Trace (Conc-1Ml/ Dose) 1 ml Calcium Gluconate 1 gm Potassium Acetate 46 meq Potassium Phosphate 9 mmol In Amino Acids 5 %/Dextrose 20 % 1,000 ml @ 80 mls/hr IV . BY DURATION [facility] Rx#: [id number] Output: Drainage 300 50 Abdomen 300 50 Other: Voiding Method Diaper Diaper Diaper # Voids 3 4 # Bowel Movements 0 - Labs CBC & Chem 7: 10/05/24 17:14 10/09/24 04:30 Labs: Abnormal Lab Results - Last 24 Hours (Table) 10/08/24 10/08/24 10/08/24 Range/Units 05:20 06:08 07:42 Sodium 149 H (135-145) mmol/L Chloride 117 H (96-109) mmol/L BUN 35.1 H (9.0-27.0) mg/dL BUN/Creatinine Ratio 39.00 H (12.00-20.00) Ratio Glucose 203 H (70-110) mg/dL POC Glucose (mg/dL) 182 H 199 H (70-110) mg/dL Calcium 8.0 L (8.7-10.3) mg/dL Magnesium (1.6-2.3) mg/dL AST (17-59) U/L ALT (4-49) U/L Alkaline Phosphatase (38-126) U/L Total Protein (6.3-8.2) g/dL Albumin (3.5-5.0) g/dL 10/08/24 10/08/24 10/08/24 Range/Units 11:57 17:38 20:17 Sodium (135-145) mmol/L Chloride (96-109) mmol/L BUN (9.0-27.0) mg/dL BUN/Creatinine Ratio (12.00-20.00) Ratio Glucose (70-110) mg/dL POC Glucose (mg/dL) 187 H 183 H 141 H (70-110) mg/dL Calcium (8.7-10.3) mg/dL Magnesium (1.6-2.3) mg/dL AST (17-59) U/L ALT (4-49) U/L Alkaline Phosphatase (38-126) U/L Total Protein (6.3-8.2) g/dL Albumin (3.5-5.0) g/dL 10/09/24 10/09/24 Range/Units 00:22 04:30 Sodium (135-145) mmol/L Chloride 110 H (96-109) mmol/L BUN 34 H (9.0-27.0) mg/dL BUN/Creatinine Ratio (12.00-20.00) Ratio Glucose 167 H (70-110) mg/dL POC Glucose (mg/dL) 175 H (70-110) mg/dL Calcium 8.1 L (8.7-10.3) mg/dL Magnesium 1.5 L (1.6-2.3) mg/dL AST 74 H (17-59) U/L ALT 65 H (4-49) U/L Alkaline Phosphatase 380 H (38-126) U/L Total Protein 4.7 L (6.3-8.2) g/dL Albumin 2.0 L (3.5-5.0) g/dL Microbiology - Last 24 Hours (Table) 10/06/24 08:29 Blood Culture Gram Stain - Preliminary Blood Blood Culture - Preliminary Molecular ID
[2024-10-09] MEDS: MAGNESIUM SULFATE-D5W PMX 1 GM in DEXTROSE/WATER 1 100ML.BAG IVPB SCH (05:50)
[2024-10-09 06:05] LABS: Glucose,Whole Blood 187 mg/dL (70-110)
--- NOTE | 2024-10-09 07:57 | P.CONS ---
History of Present Illness - Reason for Consult Consult date: 10/08/24 Positive blood culture Requesting physician: Desiree Clarke - Chief Complaint Abdominal pain x days - History of Present Illness Patient is a 68-year-old male with a past medical history significant for Asthma, Coronary Artery Disease (CAD), Chest Pain / Angina, CVA/TIA, GERD/Reflux, Hyperlipidemia, Hypertension, Pneumonia, Rheumatoid Arthritis (RA) presented to the hospital about a month ago for evaluation of intractable nausea and vomiting who recently did have a EGD and a PEG tube placement on 09/02/2024 and patient has been evaluated by admitting team as well as multiple consultants including general surgery, nephrology cardiology and pulmonary services on 09/25/2024 patient did have Rickie-en-Y gastrojejunostomy and on 10/03/2024 patient noticed to have a fascial dehiscence with intraperitoneal blood clot s/p repair of the fascial dehiscence, patient did spike a fever of 102 F on 10/06/2024 for the patient did have blood culture drawn which came back positive with yeast patient was started on Eraxis infectious disease was consulted for further m anagement of antibiotic therapy at the time my evaluation this morning the patient is afebrile he is mildly tachycardic but not hypotensive currently on 2 L nasal oxygen patient is sleepy lethargic not a very good historian has been complaining of some abdominal pain but unable to quantify it any further no nausea vomiting or diarrhea reported by the nursing staff patient did have a creatinine of 0.9 white count was 13.28 on 10/05/2024 and the patient did have a chest x-ray on 10/06/2024 new patchy left basilar acute infiltrate or atelectasis last CT abdominal pelvis was completed on 10/03/2024 did shows small nodule opacity lung bases small amount of free fluid in the abdomen and pelvis gastric fold thickening gastritis and differential Review of Systems Positive points has been mentioned in HPI complete review could not be obtained because of his underlying mental status Past Medical History Past Medical History: Asthma, Coronary Artery Disease (CAD), Chest Pain / Angina, CVA/TIA, GERD/Reflux, Hyperlipidemia, Hypertension, Pneumonia, Rheumatoid Arthritis (RA) Additional Past Medical History / Comment(s): MIGRAINES, HEART MURMUR, hx HIATAL HERNIA, ANEMIA, one dr told him he had a stroke at one time-no effects, varicose veins, history of incarcerated per esophageal hernia, status post robotic-assisted paraesophageal hernia repair and Frederick fundoplication on 04/12/2022. History of Any Multi-Drug Resistant Organisms: None Reported Past Surgical History: Cholecystectomy, Heart Catheterization, Hernia Repair, Orthopedic Surgery Additional Past Surgical History / Comment(s): Lt achilles tendon,RT SHOULDER surgery, RT ACHILLES TENDON reattached, HEMORRHOIDECTOMY, 13 FATTY TUMORS removed. left hand index finger surgery after injury, EGD WITH DILATION, paraesophageal hernia repair with Frederick fundoplication on 04/12/2022. New feeding tube September 2024. PEG tube Past Anesthesia/Blood Transfusion Reactions: No Reported Reaction Additional Past Anesthesia/Blood Transfusion Reaction / Comm: no hx blood transfusion Past Psychological History: Anxiety, Depression Smoking Status: Former smoker Past Alcohol Use History: None Reported Past Drug Use History: Marijuana - Past Family History Mother Family Medical History: Cancer Father Additional Family Medical History / Comment(s): thinks aneurysm Medications and Allergies Home Medications Medication Instructions Recorded Confirmed Type Albuterol Sulfate [Albuterol 2 puff PO RT-Q4H PRN 07/30/24 09/10/24 History Sulfate Hfa] Ferrous Sulfate [Iron (65 MG 325 mg PO DAILY 07/30/24 09/10/24 History Elemental)] Metoprolol Tartrate [Lopressor] 25 mg PO BID-W/MEALS 07/30/24 09/10/24 History Nitroglycerin Sl Tabs [Nitrostat] 0.4 mg SUBLINGUAL Q5M PRN 07/30/24 09/10/24 History Pantoprazole [Protonix] 40 mg PO DAILY 07/30/24 09/10/24 History Sertraline [Zoloft] 25 mg PO DAILY 07/30/24 09/10/24 History busPIRone HCL [Buspar] 7.5 mg PO BID-W/MEALS 07/30/24 09/10/24 History Ondansetron [Zofran] 4 mg PO Q8HR PRN #21 tab 08/12/24 09/10/24 Rx Acetaminophen Tab [Tylenol] 650 mg PO Q6H PRN 08/28/24 09/10/24 History Atorvastatin [Lipitor] 40 mg PO DAILY 08/28/24 09/10/24 History Folic Acid 1 mg PO DAILY 08/28/24 09/10/24 History Multivitamins, Thera [Multivitamin 1 tab PO DAILY 08/28/24 09/10/24 History (formulary)] Thiamine [Vitamin B-1] 100 mg PO DAILY 08/28/24 09/10/24 History Calcium Carbonate [Tums] 1,000 mg PO Q4HR PRN tab 09/06/24 09/10/24 Rx Allergies Allergy/AdvReac Type Severity Reaction Status Date / Time No Known Allergies Allergy Verified 09/10/24 09:02 Physical Exam Vitals: Vital Signs Temp Pulse Resp BP BP Pulse Ox 10/08/24 08:58 112 H 95 10/08/24 07:55 98.1 F 130 H 20 158/98 90 L 10/08/24 03:15 102 H 10/08/24 02:00 99.6 F 116 H 16 129/84 97 10/07/24 20:00 97.7 F 95 14 128/87 94 L 10/07/24 12:21 98.4 F 120 H 22 118/80 98 Intake and Output 10/07/24 10/08/24 10/08/24 22:59 06:59 14:59 Output Total 300 Balance -300 Output: Drainage 300 Abdomen 300 Other: Voiding Method Diaper Diaper # Voids 1 3 GENERAL DESCRIPTION: Elderly male lying in bed, no distress. No tachypnea or accessory muscle of respiration use. HEENT: Shows Pallor , no scleral icterus. Oral mucous membrane is dry. NECK: Trachea central, no thyromegaly. LUNGS: Unlabored breathing. Decreased breath sound at the base HEART: S1, S2, regular rate and rhythm. No loud murmur ABDOMEN: Soft, mild tenderness EXTREMITIES: No edema of feet. SKIN: No rash, no masses palpable. NEUROLOGICAL: The patient is awake, mood and affect normal. Results CBC & Chem 7: 10/09/24 04:30 10/09/24 04:30 Labs: Abnormal Lab Results - Last 24 Hours (Table) 10/07/24 10/07/24 10/08/24 Range/Units 12:24 18:12 00:08 Sodium (135-145) mmol/L Chloride (96-109) mmol/L BUN (9.0-27.0) mg/dL BUN/Creatinine Ratio (12.00-20.00) Ratio Glucose (70-110) mg/dL POC Glucose (mg/dL) 166 H 150 H 158 H (70-110) mg/dL Calcium (8.7-10.3) mg/dL 10/08/24 10/08/24 10/08/24 Range/Units 05:20 06:08 07:42 Sodium 149 H (135-145) mmol/L Chloride 117 H (96-109) mmol/L BUN 35.1 H (9.0-27.0) mg/dL BUN/Creatinine Ratio 39.00 H (12.00-20.00) Ratio Glucose 203 H (70-110) mg/dL POC Glucose (mg/dL) 182 H 199 H (70-110) mg/dL Calcium 8.0 L (8.7-10.3) mg/dL 10/08/24 Range/Units 11:57 Sodium (135-145) mmol/L Chloride (96-109) mmol/L BUN (9.0-27.0) mg/dL BUN/Creatinine Ratio (12.00-20.00) Ratio Glucose (70-110) mg/dL POC Glucose (mg/dL) 187 H (70-110) mg/dL Calcium (8.7-10.3) mg/dL Microbiology - Last 24 Hours (Table) 10/06/24 08:29 Blood Culture Gram Stain - Preliminary Blood Blood Culture - Preliminary Molecular ID Assessment and Plan (1) Sepsis Current Visit: Yes Status: Acute Code(s): A41.9 - SEPSIS, UNSPECIFIED ORGANISM SNOMED Code(s): 80646332 (2) Candidemia Current Visit: Yes Status: Acute Code(s): B37.7 - CANDIDAL SEPSIS SNOMED Code(s): 894788189 Plan: 1patient with a complicated history in this patient has been in the hospital for almost a month before this initial consultation on 10/08/2024 with the presentation with intractable nausea vomiting in this patient with status post Rickie-en-Y gastrojejunostomy on 09/25/2024 did have a subsequent fascial dehiscence requiring surgical repair and the patient did spike a fever on 10/06/2024 with a blood culture no positive for candidemia he did have a last CT on 10/03/2024 did not show any concern for an abscess with a possible source could be PICC line which has been there for almost a month however underlying abdominal source not done excluded. 2 will repeat the blood cultures from the PICC line and peripherally 3-will benefit from repeat CT abdominal pelvis ideally with contrast for better evaluation 4-patient will be treated with Eraxis while waiting for the workup to be completed We will follow on clinical condition and cultures to further adjust medication if needed Thank you for this consultation we will follow the patient along with you Dictation was produced using [employer] dictation software. please excuse any grammatical, word or spelling errors. Time with Patient: Greater than 30
[2024-10-09] MEDS: POTASSIUM CHLORIDE 10 MEQ in WATER FOR INJECTION 1 100ML.BAG IVPB SCH (08:19)
--- NOTE | 2024-10-09 10:25 | P.PN ---
Subjective Patient is seen in follow-up for hypernatremia. Sodium leve 141 today. Receiving TPN. Also on D5W. Vital signs are stable. General: No acute distress. HEENT: Head exam is unremarkable. LUNGS: No audible rhonchi or wheezes. HEART: Rate and Rhythm are regular. ABDOMEN: J-tube noted. EXTREMITITES: No edema. Objective - Vital Signs Vital signs: Vital Signs Temp 97.5 F L 10/09/24 07:19 Pulse 83 10/09/24 07:19 Resp 16 10/09/24 07:19 BP 147/87 10/09/24 07:19 Pulse Ox 96 10/09/24 07:19 FiO2 Intake & Output 10/08/24 10/09/24 10/09/24 18:59 06:59 18:59 Intake Total 1036 Output Total 50 Balance 986 Intake: Intake, IV Titration 1036 Amount Calcium Gluconate 1 gm 1036 Potassium Acetate 46 meq Potassium Phosphate 9 mmol In Amino Acids 5 %/ Dextrose 20 % 1,000 ml @ 80 mls/hr IV .BY DURATION [facility] Rx#:[id number] Output: Drainage 50 Abdomen 50 Other: Voiding Method Diaper Diaper # Voids 4 6 # Bowel Movements 0 - Labs CBC & Chem 7: 10/09/24 04:30 10/09/24 04:30 Labs: Abnormal Lab Results - Last 24 Hours (Table) 10/08/24 10/08/24 10/08/24 Range/Units 11:57 17:38 20:17 WBC (4.50-10.00) 10*3/uL RBC (4.40-5.60) 10*6/uL Hgb (13.0-17.0) g/dL Hct (39.6-50.0) % RDW (11.5-14.5) % MPV (9.5-12.2) fL Immature Gran # (0.00-0.04) 10*3/uL Chloride (98-107) mmol/L BUN (9-20) mg/dL Glucose (74-99) mg/dL POC Glucose (mg/dL) 187 H 183 H 141 H (70-110) mg/dL Calcium (8.4-10.2) mg/dL Magnesium (1.6-2.3) mg/dL AST (17-59) U/L ALT (4-49) U/L Alkaline Phosphatase (38-126) U/L Total Protein (6.3-8.2) g/dL Albumin (3.5-5.0) g/dL 10/09/24 10/09/24 10/09/24 Range/Units 00:22 04:30 04:30 WBC 10.27 H (4.50-10.00) 10*3/uL RBC 2.94 L (4.40-5.60) 10*6/uL Hgb 9.1 L D (13.0-17.0) g/dL Hct 27.4 L (39.6-50.0) % RDW 16.3 H (11.5-14.5) % MPV 13.7 H (9.5-12.2) fL Immature Gran # 0.13 H (0.00-0.04) 10*3/uL Chloride 110 H (98-107) mmol/L BUN 34 H (9-20) mg/dL Glucose 167 H (74-99) mg/dL POC Glucose (mg/dL) 175 H (70-110) mg/dL Calcium 8.1 L (8.4-10.2) mg/dL Magnesium 1.5 L (1.6-2.3) mg/dL AST 74 H (17-59) U/L ALT 65 H (4-49) U/L Alkaline Phosphatase 380 H (38-126) U/L Total Protein 4.7 L (6.3-8.2) g/dL Albumin 2.0 L (3.5-5.0) g/dL 10/09/24 Range/Units 06:03 WBC (4.50-10.00) 10*3/uL RBC (4.40-5.60) 10*6/uL Hgb (13.0-17.0) g/dL Hct (39.6-50.0) % RDW (11.5-14.5) % MPV (9.5-12.2) fL Immature Gran # (0.00-0.04) 10*3/uL Chloride (98-107) mmol/L BUN (9-20) mg/dL Glucose (74-99) mg/dL POC Glucose (mg/dL) 187 H (70-110) mg/dL Calcium (8.4-10.2) mg/dL Magnesium (1.6-2.3) mg/dL AST (17-59) U/L ALT (4-49) U/L Alkaline Phosphatase (38-126) U/L Total Protein (6.3-8.2) g/dL Albumin (3.5-5.0) g/dL Assessment and Plan Plan: Assessment: 1. Hypernatremia from lack of oral water intake. Better with D5W. Sodium level 141 today. 2. SMA syndrome. Surgery following. 3. Status post J-tube placement September 25, 2024. 4. Hypokalemia from poor intake. Status post replacement. Magnesium normal. 5. Alethea bacteremia. Plan: TPN per surgery. Continue to lower sodium content in TPN as able. Decrease rate of D5W to 30 cc an hour. Labs in the morning.
[2024-10-09 10:45] LABS: Band Neutrophils % 1 %; Eosinophils # (M) 0.31 k/uL (0-0.7); Lymphocytes # (M) 0.41 k/uL (1.0-4.8); Monocytes # (M) 0.21 k/uL (0-1.0); Neutrophils # (M) 9.34 k/uL (1.3-7.7); Neutrophils % (M) 90 %; Nucleated Red Blood Cells 0 /100 WBC (0-0); Total Cells Counted 100
[2024-10-09 10:46] LABS: RBC Morphology Normal
--- NOTE | 2024-10-09 12:11 | P.PN ---
Subjective Progress Note Date: 10/09/24 SURGICAL PROGRESS NOTE CHIEF COMPLAINT: Recurrent nausea and vomiting HISTORY OF PRESENT ILLNESS: Postop day #6 status post repair of fascial dehiscence upper incision of the midline incision. Status post Rickie-en-Y gastrojejunostomy on 09/25/24. The gastrostomy tube was flushed with tap water. Patient since then has had no further emesis. Dry heaves are better today. He denies any nausea. No bowel activity for a few days. 50 mL bilious output through PEG tube drainage. Afebrile. Tachycardia improved WBC is down from 13.2-10.27 Hgb 11.4-9.1 platelets 175 creatinine 0.79 magnesium 1.5 LFTs m inimally elevated. Blood culture with yeast seen by infectious disease. Patient seen and examined by Dr. Lovett who is covering for Dr. Pavon PHYSICAL EXAM: VITAL SIGNS: Reviewed. GENERAL: Well-developed in no acute distress. ABDOMEN: Soft. Nondistended. Dressing in PEG tube site clean dry and intact NEUROLOGIC: Alert and oriented. Cranial nerves II through XII grossly intact. ASSESSMENT: 1. SMA syndrome 2. Upper GI bleed with bright red blood and coffee-ground emesis. now resolved 3. Intractable nausea and vomiting 4. History of esophageal dysmotility disorder 5. Hiatal hernia 6. Esophagitis 7. Severe protein calorie malnutrition 8. Leukocytosis is reactive from surgery 9. Anemia secondary to malnutrition. 10. Fascial dehiscence of incision status post repair PLAN: -Continue to monitor -Magnesium and potassium are being replaced -Keep patient n.p.o. -Continue TPN for nutrition support -keep peg tube to drainage -Continue antibiotics -DVT prophylaxis subcu heparin Physician Supervisor Dumping note has been reviewed by physician. Signing provider agrees with the documented findings, assessment, and plan of care. Objective - Vital Signs Vital signs: Vital Signs Temp 97.5 F L 10/09/24 07:19 Pulse 83 10/09/24 07:19 Resp 16 10/09/24 07:19 BP 147/87 10/09/24 07:19 Pulse Ox 96 10/09/24 07:19 FiO2 Intake & Output 10/08/24 10/09/24 10/09/24 18:59 06:59 18:59 Intake Total 1036 Output Total 50 Balance 986 Intake: Intake, IV Titration 1036 Amount Calcium Gluconate 1 gm 1036 Potassium Acetate 46 meq Potassium Phosphate 9 mmol In Amino Acids 5 %/ Dextrose 20 % 1,000 ml @ 80 mls/hr IV .BY DURATION [facility] Rx#:[id number] Output: Drainage 50 Abdomen 50 Other: Voiding Method Diaper Diaper # Voids 4 6 # Bowel Movements 0 - Labs CBC & Chem 7: 10/09/24 04:30 10/09/24 04:30 Labs: Abnormal Lab Results - Last 24 Hours (Table) 10/08/24 10/08/24 10/09/24 Range/Units 17:38 20:17 00:22 WBC (4.50-10.00) 10*3/uL RBC (4.40-5.60) 10*6/uL Hgb (13.0-17.0) g/dL Hct (39.6-50.0) % RDW (11.5-14.5) % MPV (9.5-12.2) fL Immature Gran # (0.00-0.04) 10*3/uL Neutrophils # (1.80-7.70) 10*3/uL Neutrophils # (Manual) (1.3-7.7) k/uL Lymphocytes # (0.90-5.00) 10*3/uL Lymphocytes # (Manual) (1.0-4.8) k/uL Chloride (98-107) mmol/L BUN (9-20) mg/dL Glucose (74-99) mg/dL POC Glucose (mg/dL) 183 H 141 H 175 H (70-110) mg/dL Calcium (8.4-10.2) mg/dL Magnesium (1.6-2.3) mg/dL AST (17-59) U/L ALT (4-49) U/L Alkaline Phosphatase (38-126) U/L Total Protein (6.3-8.2) g/dL Albumin (3.5-5.0) g/dL 10/09/24 10/09/24 10/09/24 Range/Units 04:30 04:30 06:03 WBC 10.27 H (4.50-10.00) 10*3/uL RBC 2.94 L (4.40-5.60) 10*6/uL Hgb 9.1 L D (13.0-17.0) g/dL Hct 27.4 L (39.6-50.0) % RDW 16.3 H (11.5-14.5) % MPV 13.7 H (9.5-12.2) fL Immature Gran # 0.13 H (0.00-0.04) 10*3/uL Neutrophils # 8.95 H (1.80-7.70) 10*3/uL Neutrophils # (Manual) 9.34 H (1.3-7.7) k/uL Lymphocytes # 0.71 L (0.90-5.00) 10*3/uL Lymphocytes # (Manual) 0.41 L (1.0-4.8) k/uL Chloride 110 H (98-107) mmol/L BUN 34 H (9-20) mg/dL Glucose 167 H (74-99) mg/dL POC Glucose (mg/dL) 187 H (70-110) mg/dL Calcium 8.1 L (8.4-10.2) mg/dL Magnesium 1.5 L (1.6-2.3) mg/dL AST 74 H (17-59) U/L ALT 65 H (4-49) U/L Alkaline Phosphatase 380 H (38-126) U/L Total Protein 4.7 L (6.3-8.2) g/dL Albumin 2.0 L (3.5-5.0) g/dL
[2024-10-09 12:21] LABS: Glucose,Whole Blood 187 mg/dL (70-110)
--- NOTE | 2024-10-09 12:44 | P.PN ---
Subjective Progress Note Date: 10/09/24 This is a 68-year-old white male admitted on 09/09/2024, his chief complaint at the time was nausea vomiting and diarrhea. Patient was seen by surgery on consultation, he was seen on 09/10/2024, felt that the patient has intractable nausea and vomiting, he had history of esophageal dysmotility disorder, hiatal hernia, and esophagitis. On 09/12 patient underwent EGD, there was no evidence of gastric obstruction, there was a few clots around the PEG tube, there was no active bleeding, patient was found to have a small hiatal hernia at the GE junction, distal esophagus was normal. 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 Last night, patient developed wound dehiscence and he was having significant amount of bleeding from the surgical site/wound dehiscence. Patient required a total of 4 units of packed RBCs and required 2 units of fresh frozen plasma. Today patient underwent surgical repair of his fascial dehiscence with intraperitoneal blood clots related to previous bleeding from abdominal wall. His bleeding was surgically controlled, however considering the amount of bleeding that the patient had in the last 24 hours, I was asked to admit the patient to the ICU for monitoring for the next 24 hours. I saw the patient in the recovery room, he was noted to be hemodynamically stable, moaning and groaning because of some discomfort in his surgical site. Otherwise patient was not in any distress, and he was mostly on nasal cannula. Labs this morning before the last 2 units of packed RBCs given his hemoglobin was 6.3 WBC count 19 electrolytes are normal renal profile is normal Seen today on 10/04/2024, patient is doing well, no further bleeding from his surgical wound, patient is hemodynamically stable, continues to have chronic pain, no shortness of breath no cough no wheezing WBC count is 13.6 hemoglobin 11.2 electrolytes are normal renal profile is normal patient received a total of 5 units of packed RBCs and 2 units of fresh frozen plasma since this admission his hemoglobin today is 11.2. Seen today on 11/01/2024, patient remains in the ICU he is now on overflow, needs to go to medical surgical floor. On room air, not in any distress. No cough no wheezing no shortness of breath, pain seems to be fairly under control. Labs today were reviewed he had a relatively normal electrolytes drawn normal renal profile blood sugar is 164. The patient is seen today October 06, 2024 in follow-up on the regular medical floor. Hospital day #27. Postoperative day #3 of a fascial dehiscence repair. On September 25, 2024 he had undergone a Rickie-en-Y gastrojejunostomy for SMA syndrome. He was transferred out of the ICU yesterday. He is currently resting in bed. Awake and alert in no acute distress. He is maintaining O2 saturations in the 90s on room air. He is febrile this morning with a axillary temperature of 102. He is tachycardic. Blood pressure stable. Chest x-ray shows a left basilar infiltrate/atelectasis. He is status post 5 units of packed red blood cells and 2 units of fresh frozen plasma thus far. White count 13.2. Hemoglobin 11.4. Platelets 179.. Creatinine 0.83. Glucose 162. He is being nourished with TPN at 80 mL/h. Lipids every 72 hours. He remains on antibiotics in the form of Zosyn. Heparin for DVT prophylaxis. The patient is seen today October 07, 2024 in follow-up on the regular medical floor. He is currently resting in bed. Awake and alert in no acute distress. Maintaining good O2 saturations in the 90s on room air oxygen. He is receiving TPN at 80 mL/h. Lipids every 72 hours. Normal saline at KVO. Heparin for DVT prophylaxis. Remains on antibiotics in the form of Zosyn. Sodium 149. Potassium 4.1. Bicarb 28. BUN 35. Creatinine 0.81. Glucose 172. Still without significant bowel function. He remains nothing by mouth. The patient is seen today October 08, 2024 in follow-up on the regular medical floor. He is currently awake and alert in no acute distress. Sitting up in bed. Maintaining O2 saturations in the 90s on room air. He has been afebrile. Hemodynamically stable. Blood culture currently showing yeast. Sodium 149. Potassium 3.8. Bicarb 22. BUN 35. Creatinine 0.9. Glucose 203. He has been initiated on Eraxis. On D5W at 70 mL/h. Remains on TPN and lipids for nutritional support. Remains on Zosyn. Heparin for DVT prophylaxis. Remains nothing by mouth. PEG tube to drainage. The patient is seen today October 09, 2024 in follow-up on the regular medical floor. He is currently resting in bed. Awake and alert in no acute distress. Maintaining O2 saturations in the 90s on 2 L/min per nasal cannula. He is continued on TPN at 80 mL/h. Lipids every 72 hours. D5W at 30 mL/h. He remains on Zosyn and Eraxis. He is on heparin for DVT prophylaxis. He has been reluctant to get out of bed or work with physical therapy. They are in the room hoping to get him moving today. He is status post 5 units of packed red blood cells this admission. 2 units of fresh frozen plasma. Blood culture revealing Alethea. White count 10.2. Hemoglobin 9.1. Platelets 175. Sodium 141. Potassium 3.8. Bicarb 23. BUN 34. Creatinine 0.79. Glucose 167. AST 74. ALT 65. Objective - Vital Signs Vital signs: Vital Signs Temp 97.5 F L 10/09/24 07:19 Pulse 83 10/09/24 07:19 Resp 16 10/09/24 07:19 BP 147/87 10/09/24 07:19 Pulse Ox 96 10/09/24 07:19 FiO2 Intake & Output 10/08/24 10/09/24 10/09/24 18:59 06:59 18:59 Intake Total 1036 Output Total 50 Balance 986 Intake: Intake, IV Titration 1036 Amount Calcium Gluconate 1 gm 1036 Potassium Acetate 46 meq Potassium Phosphate 9 mmol In Amino Acids 5 %/ Dextrose 20 % 1,000 ml @ 80 mls/hr IV .BY DURATION [facility] Rx#:[id number] Output: Drainage 50 Abdomen 50 Other: Voiding Method Diaper Diaper Diaper # Voids 4 6 # Bowel Movements 0 - Exam GENERAL EXAM: Alert, weak 68-year-old male, resting in bed, on room air, comfortable in no apparent distress. HEAD: Normocephalic. EYES: Normal reaction of pupils, equal size. NOSE: Clear with pink turbinates. THROAT: No erythema or exudates. NECK: No masses, no JVD. CHEST: No chest wall deformity. LUNGS: Equal air entry with no crackles, wheeze, rhonchi or dullness. CVS: S1 and S2 normal with no audible murmur, regular rhythm. ABDOMEN: Incision clean dry well-approximated. PEG tube exit site clean and dry. Abdominal binder in place. No hepatosplenomegaly, no guarding or rigidity. SPINE: No scoliosis or deformity SKIN: No rashes CENTRAL NERVOUS SYSTEM: No focal deficits, tone is normal in all 4 extremities. EXTREMITIES: There is no peripheral edema. No clubbing, no cyanosis. Peripheral pulses are intact. - Labs CBC & Chem 7: 10/09/24 04:30 10/09/24 04:30 Labs: Abnormal Lab Results - Last 24 Hours (Table) 10/08/24 10/08/24 10/09/24 Range/Units 17:38 20:17 00:22 WBC (4.50-10.00) 10*3/uL RBC (4.40-5.60) 10*6/uL Hgb (13.0-17.0) g/dL Hct (39.6-50.0) % RDW (11.5-14.5) % MPV (9.5-12.2) fL Immature Gran # (0.00-0.04) 10*3/uL Neutrophils # (1.80-7.70) 10*3/uL Neutrophils # (Manual) (1.3-7.7) k/uL Lymphocytes # (0.90-5.00) 10*3/uL Lymphocytes # (Manual) (1.0-4.8) k/uL Chloride (98-107) mmol/L BUN (9-20) mg/dL Glucose (74-99) mg/dL POC Glucose (mg/dL) 183 H 141 H 175 H (70-110) mg/dL Calcium (8.4-10.2) mg/dL Magnesium (1.6-2.3) mg/dL AST (17-59) U/L ALT (4-49) U/L Alkaline Phosphatase (38-126) U/L Total Protein (6.3-8.2) g/dL Albumin (3.5-5.0) g/dL 10/09/24 10/09/24 10/09/24 Range/Units 04:30 04:30 06:03 WBC 10.27 H (4.50-10.00) 10*3/uL RBC 2.94 L (4.40-5.60) 10*6/uL Hgb 9.1 L D (13.0-17.0) g/dL Hct 27.4 L (39.6-50.0) % RDW 16.3 H (11.5-14.5) % MPV 13.7 H (9.5-12.2) fL Immature Gran # 0.13 H (0.00-0.04) 10*3/uL Neutrophils # 8.95 H (1.80-7.70) 10*3/uL Neutrophils # (Manual) 9.34 H (1.3-7.7) k/uL Lymphocytes # 0.71 L (0.90-5.00) 10*3/uL Lymphocytes # (Manual) 0.41 L (1.0-4.8) k/uL Chloride 110 H (98-107) mmol/L BUN 34 H (9-20) mg/dL Glucose 167 H (74-99) mg/dL POC Glucose (mg/dL) 187 H (70-110) mg/dL Calcium 8.1 L (8.4-10.2) mg/dL Magnesium 1.5 L (1.6-2.3) mg/dL AST 74 H (17-59) U/L ALT 65 H (4-49) U/L Alkaline Phosphatase 380 H (38-126) U/L Total Protein 4.7 L (6.3-8.2) g/dL Albumin 2.0 L (3.5-5.0) g/dL 10/09/24 Range/Units 12:20 WBC (4.50-10.00) 10*3/uL RBC (4.40-5.60) 10*6/uL Hgb (13.0-17.0) g/dL Hct (39.6-50.0) % RDW (11.5-14.5) % MPV (9.5-12.2) fL Immature Gran # (0.00-0.04) 10*3/uL Neutrophils # (1.80-7.70) 10*3/uL Neutrophils # (Manual) (1.3-7.7) k/uL Lymphocytes # (0.90-5.00) 10*3/uL Lymphocytes # (Manual) (1.0-4.8) k/uL Chloride (98-107) mmol/L BUN (9-20) mg/dL Glucose (74-99) mg/dL POC Glucose (mg/dL) 187 H (70-110) mg/dL Calcium (8.4-10.2) mg/dL Magnesium (1.6-2.3) mg/dL AST (17-59) U/L ALT (4-49) U/L Alkaline Phosphatase (38-126) U/L Total Protein (6.3-8.2) g/dL Albumin (3.5-5.0) g/dL Microbiology - Last 24 Hours (Table) 10/06/24 08:29 Blood Culture Gram Stain - Final Blood Blood Culture - Final Alethea albicans Molecular ID Assessment and Plan Assessment: SMA syndrome status post gastrojejunostomy and J-tube placement on 09/25/24 Status post repair of fascial dehiscence on 10/03/2024 Acute blood loss anemia from fascial dehiscence requiring surgical repair 10/03/2024 Intractable nausea vomiting and upper GI bleed secondary to above improvement Bilateral aspiration pneumonia suspected Febrile illness secondary to above Hyponatremia Recurrent nausea vomiting, intractable requiring PEG tube placement during last admission. Epigastric pain and tenderness could be secondary to gastritis, status post Roex-en-Y gastrojejunostomy. S/p J-tube placement Blood cultures positive for yeast Severe calorie protein malnutrition Hypernatremia Sinus tachycardia versus SVT requiring metoprolol clonidine patch, better controlled Elevated troponin could be secondary to SVT related dehydration, evaluated by cardiology during last admission Hypertension Hyperlipidemia Anxiety/depression, not on active issue History of hiatal hernia Poor overall functional status based on the above-mentioned multiple comorbidities Plan: The patient was seen and evaluated Labs and medications reviewed Continued on Zosyn Continued on Eraxis Remains stable on room air oxygen Iincreased the use of the incentive spirometer Heparin for DVT prophylaxis Being nourished with TPN and lipids Prognosis remains guarded Increase his activity as tolerated Encouraged to work with physical therapy I have personally seen and examined the patient, performed the documentation and the assessment and plan as written. Number of minutes spent on the visit: 10 Dictation was produced using [employer] software. Please excuse any grammatical, word or spelling errors.
[2024-10-09 17:19] LABS: Glucose,Whole Blood 216 mg/dL (70-110)
[2024-10-10 00:12] LABS: Glucose,Whole Blood 190 mg/dL (70-110)
[2024-10-10 06:08] LABS: Glucose,Whole Blood 194 mg/dL (70-110)
[2024-10-10 07:10] LABS: Carbon Dioxide 23 mmol/L (22-30); Chloride 106 mmol/L (98-107); Glucose 177 mg/dL (74-99); Potassium 4.1 mmol/L (3.5-5.1); Sodium 138 mmol/L (137-145)
[2024-10-10 07:11] LABS: ALT 65 U/L (4-49); AST 50 U/L (17-59); African American GFR (CKD) >90 (>60 ml/min/1.73 sqM); Albumin/Globulin Ratio 0.7; Alkaline Phosphatase 343 U/L (38-126); Anion Gap 9 mmol/L; Blood Urea Nitrogen 31 mg/dL (9-20); Globulin 2.7 g/dL; Magnesium 1.7 mg/dL (1.6-2.3); Non-African American GFR(CKD) >90 (>60 ml/min/1.73 sqM); Phosphorus 2.6 mg/dL (2.5-4.5); Total Bilirubin 0.8 mg/dL (0.2-1.3); Total Protein 4.7 g/dL (6.3-8.2)
--- NOTE | 2024-10-10 09:06 | P.PN ---
Subjective Progress Note Date: 10/09/24 This is a pleasant 68 years old male who was recently discharged from this facility about 4 days ago for nausea vomiting and malnutrition status post PEG tube placement by surgery team. Once he been discharged he started having recurrent nausea vomiting again, he vomited 6 times since yesterday with no blood. Associated with epigastric pain and tenderness His troponin was elevated but EKG showing SVT. He has been evaluated by sales and distribution clerk as well during last admission for elevated troponin. Currently denies chest pain or dyspnea. No specific urinary symptoms. No headache dizziness weakness or numbness He is pain mainly in the epigastric area about 9/10 felt like squeezing nonradiating with no precipitating or relieving factors. He states that the pain is similar to last time. He has no bowel movement. He is using the PEG tube at home. He got Zofran 4 mg and is requesting more medicine He is hemodynamically stable and afebrile He has unremarkable CBC, BMP, LFT. WBC is mildly elevated at 10.4 at 11. Lactic acid 4.6 came back to normal at 1.7. Troponin is elevated 0.065. KUB showing nonspecific gas bowel pattern. EKG showed SVT with a rate of [address] depression in V3-V5 Patient lying in bed with no dyspnea or chest pain He is vomiting of blood today. He still has nausea vomiting. He was on Zofran 8 mg we will going to add Reglan IV 5 and then 10 mg. hemoglobin stable at 12.4 with slight improvement. Vital stable. He is not on any blood thinners or aspirin. His on Protonix IV twice daily added today Also we added D5 normal saline Discussed the case with surgery team. CT of the abdomen pelvis with IV contrast is requested. Currently patient denies any abdominal pain or epigastric tenderness. /10 No vomiting today, looks tired No abdominal pain or tenderness PEG tube is in place and feeding tube on hold He still getting IV fluids and Zosyn Plan for EGD today with surgery team given his hematemesis yesterday. Hemoglobin was stable yesterday at 11.3 Monitor hemoglobin Continue with Protonix He is getting Reglan [id number] which prevent him from vomiting 09/25 i came to see the pt twice and he was no in his room 09/26 Patient seen and examined at bedside. He is awake and alert ,he is status post Roex-en-Y gastrojejunostomy. Today postop day #1 He still complaining from epigastric pain and mild tenderness with PEG tube placement to gravity. Patient is not getting tube feeding Patient is getting D5W at 100 mL/h, sodium improved 150 down to 146 today Also patient is getting Zosyn WBC 16.1, hemoglobin 8.4 and sodium 146 Is getting Reglan 5 mg as needed will added 10 mg 09/27 Patient remains with GI symptoms. PEG tube to gravity and patient received TPN. Still with nausea and some abdominal/epigastric pain and tenderness although partially improved. No other new complaint. Labs look stable or slightly improving with sodium 147, hemoglobin 13 and WBC down to 11.3 Nephrology consult was obtained Patient started on normal saline at 100 mL/h and D5W was stopped 09/28 Patient states he is the same over the last 2 days he still have some epigastric pain and tenderness which looks the same also he has some nausea and vomiting although he was taking Reglan. Also patient WBC went up to 13.3. Hemoglobin down to 9.3 Sodium 148 potassium 3.1 Replace potassium per protocol Started on D5W at give Ativan x 1 to help with anxiety and with nausea vomiting 09/29 Patient developed significant tachycardia last night and this morning with heart rate going up to 150 and 160/min. EKG showing sinus tachycardia. Heart rate improved down to 100 and blood pressure stable with systolic 120-150 It is thought multifactorial secondary to anxiety dehydration infection electrolyte abnormalities and pain. D-dimer is ordered but the suspicion for PE is low Patient with no chest pain or dyspnea, actually patient this is the first time he told me he feels better since I saw him from admission. He was sitting in chair with slight weakness. He still getting TPN Zosyn. He getting D5W at 50 mL/h but sodium increased to 152 so increase the dose to 125 mL/h Dilaudid added IV Lopressor 5 mg every 8 hours and clonidine patch 0.1 mg Also low potassium and magnesium being replaced. 09/30 Patient is lethargic today with some nausea. He denies epigastric abdominal pain. He is still tachycardic with heart around 120 WBC is 14.5, hemoglobin 9.6 and He remains on D5W at 125 Eliquis dose lowered to 2.5 10/01 Patient today feels improved and better he denies chest pain or dyspnea no epigastric pain or tenderness significant than the other days. PEG tube still in place but not working. Still getting TPN He still tachycardic and blood pressure still slightly on the high side, he got 3 doses of Lopressor 5 mg IV yesterday, we will going to increase his clonidine patch 0.2 up to 0.3. He has CTA of the chest done yesterday for suspicion of PE, no pulm embolism found however there is lung nodule 1.1 cm that he needs follow-up in 3 months for report also there is bilateral groundglass opacities and nodular lesions suspicious for pneumonia versus aspiration pneumonia versus cryptogenic organizing pneumonia. Also there is retained material or secretions or food in the lower esophagus which cause more with aspiration pneumonitis. Patient remains on IV Protonix for esophagitis Therefore patient remains on IV Zosyn. Low potassium but replace per protocol today The other thing his hypernatremia significantly improved 122 yesterday and 124 today while he is on D5 W at 75 mL today compared to 125 yesterday Check labs in the morning 10/02 Today patient feels tired weak and sweaty Blood pressure is low normal, became slightly tachycardic 115. His heart rate is getting controlled with the clonidine patch 0.3 mg and now requiring only once daily dose of IV Lopressor 5 mg over the last 2 days. His albumin is 2.0. His sodium 138 he remains on D5W. He is still getting TPN Will give IV albumin 25 % x 1 Hemoglobin 9.1 10/03 Patient developed severe bleeding from his epigastric wound and his abdominal wall with hemoglobin dropped down to 6.8 and 6.3 received several units of blood transfusion. He was taking to the operating room emergently by surgery team and the bleeding was stopped and the wound was sutured again. After that patient was taken to the ICU 10/04 Patient awake alert He feels comfortable He still has expected tenderness at the surgical site Pain is treated with IV Tylenol per surgery team 10/05 Patient awake alert sitting up in bed He denies vomiting Abdominal pain is better Blood pressure 92/65 10/06 He still has some epigastric abdominal pain that comes and goes. He rated about 5-7/10. Yesterday was 10/10 which looks improving Surgical vertical wound is with a dressing in place Patient getting TPN. 10/07/2024 Patient is seen in follow-up today with general surgery following and patient is maintained on TPN. Sodium remains elevated at 149 and per pharmacy notes no further sodium noted in the TPN. Tube feeds remain on hold. Patient continues with J-tube to drainage noted to have some biliary drainage and patient remains NPO. Patient also being followed by pulmonary maintained on room air and is not reporting any shortness of breath. Patient currently afebrile although is having intermittent low-grade temps and maintained on IV Zosyn. Prognosis remains guarded. 10/08/2024 Patient seen in follow-up today with no significant improvements noted reporting continued nausea With vomiting today NG tube remains to drainage per general surgery and is continued on TPN. Sodium remains elevated at 149 and nephrology following as well adjusted IV hydration and will follow up on repeat labs. Patient did have a preliminary blood culture that was positive and infectious disease was consulted patient is maintained on Zosyn and repeat blood cultures pending. Concerns about possible PICC line contamination. Patient is afebrile with no reports of chest pain or shortness of breath. Encouraged to increase activity as tolerated although patient is mostly bedbound. Prognosis is guarded. 10/09/2024 Patient is seen in follow-up today with multiple consultations following. Patient is status post fascial dehiscence repair of the upper incision of the midline incision and also Rickie-en-Y gastrojejunostomy placement and tube was flushed and appears to be functioning with no further vomiting noted. Patient continues on TPN and PEG tube to drainage and will continue. White blood count is improving and hemoglobin remained stable with no bleeding noted. Infectious disease has been consulted maintained on Zosyn and awaiting cultures with initial preliminary blood culture showing molecular ID along with Alethea albicans. No vomiting noted today. Patient remains NPO. Nephrology following and has transitioned hydration with increased rate and sodium is improved at 141 today, potassium is 3.8, BUN is 34 with a creatinine of 0.79. Magnesium is 1.5 and will be replaced ALT/AST are mildly elevated and trending down. Patient is significantly weak and recommend PT/OT therapy daily and getting out of the bed more frequently. No bowel movements in the last few days and would recommend bowel regimen. Physical exam: GENERAL: The patient is lethargic although arousable, alert and oriented x3, not in any acute distress. Fatigues easily, somewhat confused well developed, ill- appearing, cachectic, significant muscle wasting noted. Thin built HEENT: Pupils are round and equally reacting to light. EOMI. No scleral icterus. No conjunctival pallor. Normocephalic, atraumatic. No pharyngeal erythema. No thyromegaly. CARDIOVASCULAR: S1 and S2 muffled, less tachycardic PULMONARY: Diminished breath sounds bilaterally otherwise chest is clear to auscultation, no wheezing , no crackles. ABDOMEN: Soft, nontender, nondistended, hypoactive bowel sounds. No palpable organomegaly. PEG tube is in place with no Abdominal tenderness or guarding MUSCULOSKELETAL: No joint swelling or deformity. EXTREMITIES: No cyanosis, clubbing, or pedal edema. NEUROLOGICAL: Gross neurological examination did not reveal any focal deficits. Diffusely weak SKIN: No rashes. no petechiae. 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 Epigastric pain and tenderness could be secondary to gastritis, status post Roex-en-Y gastrojejunostomy. S/p J-tube placement Severe calorie protein malnutrition with a BMI of 11.6 Sinus tachycardia versus SVT requiring metoprolol clonidine patch, better contr olled Elevated troponin could be secondary to SVT related dehydration, evaluated by cardiology during last admission Hypertension Hyperlipidemia Anxiety/depression, not on active issue Distal esophagitis Hiatal hernia seen on recent EKG GI prophylaxis DVT prophylaxis Full code Plan: Patient is being closely monitored with multiple consultations following including infectious disease as patient had a blood culture positive from 10/06/2024. Repeat blood culture and pending at this time. Previous blood culture preliminary showing Alethea Patient remains n.p.o. maintained on TPN and tube feedings are also on hold per surgery. PEG tube remains to drainage Pulmonary following patient is maintained on room air with no reports of worsening shortness of breath continue n.p.o. status until bowel activity per surgery. Patient did have an episode of vomiting and was concerns for possible G-tube kinked and general surgery evaluating G-tube was irrigated with water and vomiting has improved since Follow-up on repeat labs and replace electrolytes per protocol, magnesium is 1.5 and being replaced Would recommend increased activity as tolerated and will recommend PT/OT therapy daily Overall prognosis is extremely guarded at this time The impression and plan of care has been dictated by Yanira Linda, Nurse Practitioner as directed. Dr. Bentley MD I have performed a history and examination and MDM of this patient, discussed the same with the dictator, and agree with the dictator's assessment and plan as written ,documented as a scribe. Based on total visit time, I have performed more than 50% of the visit. Objective - Vital Signs Vital signs: Vital Signs Temp 98.3 F 10/10/24 07:28 Pulse 83 10/10/24 07:28 Resp 24 10/10/24 07:28 BP 107/71 10/10/24 07:28 Pulse Ox 97 10/10/24 07:28 FiO2 Intake & Output 10/09/24 10/10/24 10/10/24 18:59 06:59 18:59 Intake Total 1036 Output Total 100 150 Balance 936 -150 Weight 34.5 kg Intake: Intake, IV Titration 1036 Amount Calcium Gluconate 1 gm 1036 Potassium Acetate 46 meq Potassium Phosphate 9 mmol In Amino Acids 5 %/ Dextrose 20 % 1,000 ml @ 80 mls/hr IV .[facility] Rx#:[id number] Output: Drainage 100 150 Abdomen 100 150 Other: Voiding Method Diaper Diaper # Voids 2 2 - Labs CBC & Chem 7: 10/09/24 04:30 10/10/24 06:12 Labs: Abnormal Lab Results - Last 24 Hours (Table) 10/09/24 10/09/24 10/09/24 Range/Units 04:30 12:20 17:16 Neutrophils # 8.95 H (1.80-7.70) 10*3/uL Neutrophils # (Manual) 9.34 H (1.3-7.7) k/uL Lymphocytes # 0.71 L (0.90-5.00) 10*3/uL Lymphocytes # (Manual) 0.41 L (1.0-4.8) k/uL BUN (9-20) mg/dL Glucose (74-99) mg/dL POC Glucose (mg/dL) 187 H 216 H (70-110) mg/dL Calcium (8.4-10.2) mg/dL ALT (4-49) U/L Alkaline Phosphatase (38-126) U/L Total Protein (6.3-8.2) g/dL Albumin (3.5-5.0) g/dL 10/10/24 10/10/24 10/10/24 Range/Units 00:11 06:06 06:12 Neutrophils # (1.80-7.70) 10*3/uL Neutrophils # (Manual) (1.3-7.7) k/uL Lymphocytes # (0.90-5.00) 10*3/uL Lymphocytes # (Manual) (1.0-4.8) k/uL BUN 31 H (9-20) mg/dL Glucose 177 H (74-99) mg/dL POC Glucose (mg/dL) 190 H 194 H (70-110) mg/dL Calcium 8.0 L (8.4-10.2) mg/dL ALT 65 H (4-49) U/L Alkaline Phosphatase 343 H (38-126) U/L Total Protein 4.7 L (6.3-8.2) g/dL Albumin 2.0 L (3.5-5.0) g/dL Microbiology - Last 24 Hours (Table) 10/08/24 18:12 Blood Culture - Preliminary Blood 10/06/24 08:29 Blood Culture Gram Stain - Final Blood Blood Culture - Final Alethea albicans Molecular ID
[2024-10-10] MEDS: MAGNESIUM SULFATE-D5W PMX 1 GM in DEXTROSE/WATER 1 100ML.BAG IVPB ONE (09:19)
[2024-10-10] MEDS: HYDROmorphone 1 MG/ML 1 ML SYRINGE IVP PRN (09:21)
--- NOTE | 2024-10-10 10:33 | P.PN ---
Subjective Patient is seen in follow-up for hypernatremia. Sodium leve 138 today. Receiving TPN. Vital signs are stable. General: No acute distress. HEENT: Head exam is unremarkable. LUNGS: No audible rhonchi or wheezes. HEART: Rate and Rhythm are regular. ABDOMEN: J-tube noted. EXTREMITITES: No edema. Objective - Vital Signs Vital signs: Vital Signs Temp 98.3 F 10/10/24 07:28 Pulse 83 10/10/24 07:28 Resp 24 10/10/24 07:28 BP 107/71 10/10/24 07:28 Pulse Ox 97 10/10/24 07:28 FiO2 Intake & Output 10/09/24 10/10/24 10/10/24 18:59 06:59 18:59 Intake Total 1036 Output Total 100 150 Balance 936 -150 Weight 34.5 kg Intake: Intake, IV Titration 1036 Amount Calcium Gluconate 1 gm 1036 Potassium Acetate 46 meq Potassium Phosphate 9 mmol In Amino Acids 5 %/ Dextrose 20 % 1,000 ml @ 80 mls/hr IV .BY [facility] Rx#:[id number] Output: Drainage 100 150 Abdomen 100 150 Other: Voiding Method Diaper Diaper # Voids 2 2 - Labs CBC & Chem 7: 10/09/24 04:30 10/10/24 06:12 Labs: Abnormal Lab Results - Last 24 Hours (Table) 10/09/24 10/09/24 10/09/24 Range/Units 04:30 12:20 17:16 Neutrophils # 8.95 H (1.80-7.70) 10*3/uL Neutrophils # (Manual) 9.34 H (1.3-7.7) k/uL Lymphocytes # 0.71 L (0.90-5.00) 10*3/uL Lymphocytes # (Manual) 0.41 L (1.0-4.8) k/uL BUN (9-20) mg/dL Glucose (74-99) mg/dL POC Glucose (mg/dL) 187 H 216 H (70-110) mg/dL Calcium (8.4-10.2) mg/dL ALT (4-49) U/L Alkaline Phosphatase (38-126) U/L Total Protein (6.3-8.2) g/dL Albumin (3.5-5.0) g/dL 10/10/24 10/10/24 10/10/24 Range/Units 00:11 06:06 06:12 Neutrophils # (1.80-7.70) 10*3/uL Neutrophils # (Manual) (1.3-7.7) k/uL Lymphocytes # (0.90-5.00) 10*3/uL Lymphocytes # (Manual) (1.0-4.8) k/uL BUN 31 H (9-20) mg/dL Glucose 177 H (74-99) mg/dL POC Glucose (mg/dL) 190 H 194 H (70-110) mg/dL Calcium 8.0 L (8.4-10.2) mg/dL ALT 65 H (4-49) U/L Alkaline Phosphatase 343 H (38-126) U/L Total Protein 4.7 L (6.3-8.2) g/dL Albumin 2.0 L (3.5-5.0) g/dL Microbiology - Last 24 Hours (Table) 10/08/24 18:12 Blood Culture - Preliminary Blood 10/06/24 08:29 Blood Culture Gram Stain - Final Blood Blood Culture - Final Alethea albicans Molecular ID Assessment and Plan Plan: Assessment: 1. Hypernatremia from lack of oral water intake. Better with D5W. Sodium level 138 today. 2. SMA syndrome. Surgery following. 3. Status post J-tube placement September 25, 2024. 4. Hypokalemia from poor intake. Status post replacement. Magnesium normal. 5. Alethea bacteremia. Plan: TPN per surgery. Discontinue D5W.
--- NOTE | 2024-10-10 12:16 | P.PN ---
Subjective Progress Note Date: 10/10/24 SURGICAL PROGRESS NOTE CHIEF COMPLAINT: Recurrent nausea and vomiting HISTORY OF PRESENT ILLNESS: Postop day #7 status post repair of fascial dehiscence upper incision of the midline incision. Status post Rickie-en-Y gastrojejunostomy on 09/25/24. Patient is sitting at the edge of bed today. Reports that he is feeling better and wants to go home. He does report having a small bowel hard bowel movement yesterday. Denies any nausea or vomiting. PEG tube to drainage. Afebrile. Dr. Lovett who is covering for Dr. Pavon PHYSICAL EXAM: VITAL SIGNS: Reviewed. GENERAL: Well-developed in no acute distress. ABDOMEN: Soft. Nondistended. Midline incision clean dry and intact. PEG tube clean dry and intact. NEUROLOGIC: Alert and oriented. Cranial nerves II through XII grossly intact. ASSESSMENT: 1. SMA syndrome 2. Upper GI bleed with bright red blood and coffee-ground emesis. now resolved 3. Intractable nausea and vomiting 4. History of esophageal dysmotility disorder 5. Hiatal hernia 6. Esophagitis 7. Severe protein calorie malnutrition 8. Leukocytosis is reactive from surgery 9. Anemia secondary to malnutrition. 10. Fascial dehiscence of incision status post repair PLAN: -Continue to monitor -Keep patient n.p.o. -Continue TPN for nutrition support -keep peg tube to drainage -Continue antibiotics -Checking with apartment house manager on options of continuing TPN at discharge -DVT prophylaxis subcu heparin Physician Professor Of Food Biochemistry note has been reviewed by physician. Signing provider agrees with the documented findings, assessment, and plan of care. I have personally seen and examined the patient, reviewed the PAPER BAG MAKING MACHINIST /PAs history, exam and MDM and agree with the assessment and plan as written. Based on total visit time, I have performed more than 50% of the visit. As above: Patient still has bilious PEG tube output. Says his pain is improved. Mild tenderness. No vomiting today. Continue TPN. Objective - Vital Signs Vital signs: Vital Signs Temp 98.3 F 10/10/24 07:28 Pulse 83 10/10/24 07:28 Resp 24 10/10/24 07:28 BP 107/71 10/10/24 07:28 Pulse Ox 97 10/10/24 07:28 FiO2 Intake & Output 10/09/24 10/10/24 10/10/24 18:59 06:59 18:59 Intake Total 1036 Output Total 100 150 Balance 936 -150 Weight 34.5 kg Intake: Intake, IV Titration 1036 Amount Calcium Gluconate 1 gm 1036 Potassium Acetate 46 meq Potassium Phosphate 9 mmol In Amino Acids 5 %/ Dextrose 20 % 1,000 ml @ 80 mls/hr IV .BY [facility] Rx#:[id number] Output: Drainage 100 150 Abdomen 100 150 Other: Voiding Method Diaper Diaper # Voids 2 2 - Labs CBC & Chem 7: 10/09/24 04:30 10/10/24 06:12 Labs: Abnormal Lab Results - Last 24 Hours (Table) 10/09/24 10/09/24 10/10/24 Range/Units 12:20 17:16 00:11 BUN (9-20) mg/dL Glucose (74-99) mg/dL POC Glucose (mg/dL) 187 H 216 H 190 H (70-110) mg/dL Calcium (8.4-10.2) mg/dL ALT (4-49) U/L Alkaline Phosphatase (38-126) U/L Total Protein (6.3-8.2) g/dL Albumin (3.5-5.0) g/dL 10/10/24 10/10/24 Range/Units 06:06 06:12 BUN 31 H (9-20) mg/dL Glucose 177 H (74-99) mg/dL POC Glucose (mg/dL) 194 H (70-110) mg/dL Calcium 8.0 L (8.4-10.2) mg/dL ALT 65 H (4-49) U/L Alkaline Phosphatase 343 H (38-126) U/L Total Protein 4.7 L (6.3-8.2) g/dL Albumin 2.0 L (3.5-5.0) g/dL Microbiology - Last 24 Hours (Table) 10/08/24 18:12 Blood Culture - Preliminary Blood 10/06/24 08:29 Blood Culture Gram Stain - Final Blood Blood Culture - Final Alethea albicans Molecular ID
[2024-10-10 12:18] LABS: Glucose,Whole Blood 174 mg/dL (70-110)
--- NOTE | 2024-10-10 13:39 | P.PN ---
Subjective Progress Note Date: 10/10/24 This is a 68-year-old white male admitted on 09/09/2024, his chief complaint at the time was nausea vomiting and diarrhea. Patient was seen by surgery on consultation, he was seen on 09/10/2024, felt that the patient has intractable nausea and vomiting, he had history of esophageal dysmotility disorder, hiatal hernia, and esophagitis. On 09/12 patient underwent EGD, there was no evidence of gastric obstruction, there was a few clots around the PEG tube, there was no active bleeding, patient was found to have a small hiatal hernia at the GE junction, distal esophagus was normal. 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 Last night, patient developed wound dehiscence and he was having significant amount of bleeding from the surgical site/wound dehiscence. Patient required a total of 4 units of packed RBCs and required 2 units of fresh frozen plasma. Today patient underwent surgical repair of his fascial dehiscence with intraperitoneal blood clots related to previous bleeding from abdominal wall. His bleeding was surgically controlled, however considering the amount of bleeding that the patient had in the last 24 hours, I was asked to admit the patient to the ICU for monitoring for the next 24 hours. I saw the patient in the recovery room, he was noted to be hemodynamically stable, moaning and groaning because of some discomfort in his surgical site. Otherwise patient was not in any distress, and he was mostly on nasal cannula. Labs this morning before the last 2 units of packed RBCs given his hemoglobin was 6.3 WBC count 19 electrolytes are normal renal profile is normal Seen today on 10/04/2024, patient is doing well, no further bleeding from his surgical wound, patient is hemodynamically stable, continues to have chronic pain, no shortness of breath no cough no wheezing WBC count is 13.6 hemoglobin 11.2 electrolytes are normal renal profile is normal patient received a total of 5 units of packed RBCs and 2 units of fresh frozen plasma since this admission his hemoglobin today is 11.2. Seen today on 11/01/2024, patient remains in the ICU he is now on overflow, needs to go to medical surgical floor. On room air, not in any distress. No cough no wheezing no shortness of breath, pain seems to be fairly under control. Labs today were reviewed he had a relatively normal electrolytes drawn normal renal profile blood sugar is 164. The patient is seen today October 06, 2024 in follow-up on the regular medical floor. Hospital day #27. Postoperative day #3 of a fascial dehiscence repair. On September 25, 2024 he had undergone a Rickie-en-Y gastrojejunostomy for SMA syndrome. He was transferred out of the ICU yesterday. He is currently resting in bed. Awake and alert in no acute distress. He is maintaining O2 saturations in the 90s on room air. He is febrile this morning with a axillary temperature of 102. He is tachycardic. Blood pressure stable. Chest x-ray shows a left basilar infiltrate/atelectasis. He is status post 5 units of packed red blood cells and 2 units of fresh frozen plasma thus far. White count 13.2. Hemoglobin 11.4. Platelets 179.. Creatinine 0.83. Glucose 162. He is being nourished with TPN at 80 mL/h. Lipids every 72 hours. He remains on antibiotics in the form of Zosyn. Heparin for DVT prophylaxis. The patient is seen today October 07, 2024 in follow-up on the regular medical floor. He is currently resting in bed. Awake and alert in no acute distress. Maintaining good O2 saturations in the 90s on room air oxygen. He is receiving TPN at 80 mL/h. Lipids every 72 hours. Normal saline at KVO. Heparin for DVT prophylaxis. Remains on antibiotics in the form of Zosyn. Sodium 149. Potassium 4.1. Bicarb 28. BUN 35. Creatinine 0.81. Glucose 172. Still without significant bowel function. He remains nothing by mouth. The patient is seen today October 08, 2024 in follow-up on the regular medical floor. He is currently awake and alert in no acute distress. Sitting up in bed. Maintaining O2 saturations in the 90s on room air. He has been afebrile. Hemodynamically stable. Blood culture currently showing yeast. Sodium 149. Potassium 3.8. Bicarb 22. BUN 35. Creatinine 0.9. Glucose 203. He has been initiated on Eraxis. On D5W at 70 mL/h. Remains on TPN and lipids for nutritional support. Remains on Zosyn. Heparin for DVT prophylaxis. Remains nothing by mouth. PEG tube to drainage. The patient is seen today October 09, 2024 in follow-up on the regular medical floor. He is currently resting in bed. Awake and alert in no acute distress. Maintaining O2 saturations in the 90s on 2 L/min per nasal cannula. He is continued on TPN at 80 mL/h. Lipids every 72 hours. D5W at 30 mL/h. He remains on Zosyn and Eraxis. He is on heparin for DVT prophylaxis. He has been reluctant to get out of bed or work with physical therapy. They are in the room hoping to get him moving today. He is status post 5 units of packed red blood cells this admission. 2 units of fresh frozen plasma. Blood culture revealing Alethea. White count 10.2. Hemoglobin 9.1. Platelets 175. Sodium 141. Potassium 3.8. Bicarb 23. BUN 34. Creatinine 0.79. Glucose 167. AST 74. ALT 65. The patient is seen today October 10, 2024 in follow-up on the regular medical floor. He is currently sitting up in bed. Awake and alert in no acute distress. Maintaining O2 saturations in the high 90s on 2 L/min per nasal cannula. He is afebrile. Hemodynamically stable. Sodium 138. Potassium 4.1. Bicarb 23. BUN 31. Creatinine 0.79. Glucose 194. He remains on TPN at 80 mL/h. Lipids every 72 hours. Remains on antibiotics in the form of Zosyn. Remains on Eraxis. B lood culture was positive for Alethea albicans. He is status post 5 units of packed red blood cells. 2 units of fresh frozen plasma. He is on heparin for DVT prophylaxis. Protonix for GI prophylaxis. Objective - Vital Signs Vital signs: Vital Signs Temp 98.3 F 10/10/24 07:28 Pulse 83 10/10/24 07:28 Resp 24 10/10/24 07:28 BP 107/71 10/10/24 07:28 Pulse Ox 97 10/10/24 07:28 FiO2 Intake & Output 10/09/24 10/10/24 10/10/24 18:59 06:59 18:59 Intake Total 1036 Output Total 100 150 Balance 936 -150 Weight 34.5 kg Intake: Intake, IV Titration 1036 Amount Calcium Gluconate 1 gm 1036 Potassium Acetate 46 meq Potassium Phosphate 9 mmol In Amino Acids 5 %/ Dextrose 20 % 1,000 ml @ 80 mls/hr IV .BY DURATION [facility] Rx#:[id number] Output: Drainage 100 150 Abdomen 100 150 Other: Voiding Method Diaper Diaper Diaper # Voids 2 2 - Exam GENERAL EXAM: Alert, weak 68-year-old male, sitting up in bed, on 2 L/min per nasal cannula, comfortable in no apparent distress. HEAD: Normocephalic. EYES: Normal reaction of pupils, equal size. NOSE: Clear with pink turbinates. THROAT: No erythema or exudates. NECK: No masses, no JVD. CHEST: No chest wall deformity. LUNGS: Equal air entry with no crackles, wheeze, rhonchi or dullness. CVS: S1 and S2 normal with no audible murmur, regular rhythm. ABDOMEN: Incision clean dry well-approximated. PEG tube exit site clean and dry. Abdominal binder in place. No hepatosplenomegaly, no guarding or rigidity. SPINE: No scoliosis or deformity SKIN: No rashes CENTRAL NERVOUS SYSTEM: No focal deficits, tone is normal in all 4 extremities. EXTREMITIES: There is no peripheral edema. No clubbing, no cyanosis. Pe ripheral pulses are intact. - Labs CBC & Chem 7: 10/09/24 04:30 10/10/24 06:12 Labs: Abnormal Lab Results - Last 24 Hours (Table) 10/09/24 10/10/24 10/10/24 Range/Units 17:16 00:11 06:06 BUN (9-20) mg/dL Glucose (74-99) mg/dL POC Glucose (mg/dL) 216 H 190 H 194 H (70-110) mg/dL Calcium (8.4-10.2) mg/dL ALT (4-49) U/L Alkaline Phosphatase (38-126) U/L Total Protein (6.3-8.2) g/dL Albumin (3.5-5.0) g/dL 10/10/24 10/10/24 Range/Units 06:12 12:15 BUN 31 H (9-20) mg/dL Glucose 177 H (74-99) mg/dL POC Glucose (mg/dL) 174 H (70-110) mg/dL Calcium 8.0 L (8.4-10.2) mg/dL ALT 65 H (4-49) U/L Alkaline Phosphatase 343 H (38-126) U/L Total Protein 4.7 L (6.3-8.2) g/dL Albumin 2.0 L (3.5-5.0) g/dL Microbiology - Last 24 Hours (Table) 10/08/24 18:12 Blood Culture - Preliminary Blood 10/06/24 08:29 Blood Culture Gram Stain - Final Blood Blood Culture - Final Alethea albicans Molecular ID Assessment and Plan Assessment: SMA syndrome status post gastrojejunostomy and J-tube placement on 09/25/24 Status post repair of fascial dehiscence on 10/03/2024 Acute blood loss anemia from fascial dehiscence requiring surgical repair 10/03/2024 Intractable nausea vomiting and upper GI bleed secondary to above improvement Bilateral aspiration pneumonia suspected Febrile illness secondary to above Hyponatremia Recurrent nausea vomiting, intractable requiring PEG tube placement during last admission. Epigastric pain and tenderness could be secondary to gastritis, status post Roex-en-Y gastrojejunostomy. S/p J-tube placement Blood cultures positive for yeast Severe calorie protein malnutrition Hypernatremia Sinus tachycardia versus SVT requiring metoprolol clonidine patch, better controlled Elevated troponin could be secondary to SVT related dehydration, evaluated by cardiology during last admission Hypertension Hyperlipidemia Anxiety/depression, not on active issue History of hiatal hernia Poor overall functional status based on the above-mentioned multiple comorbidities Plan: The patient was seen and evaluated Labs and medications reviewed Continued on Zosyn Continued on Eraxis On 2 L nasal cannula Continue the incentive spirometer Heparin for DVT prophylaxis Being nourished with TPN and lipids Prognosis remains guarded Increase his activity as tolerated Will need subacute rehabilitation at discharge I have personally seen and examined the patient, performed the documentation and the assessment and plan as written. Number of minutes spent on the visit: 10 Dictation was produced using [employer] dictation software. Please excuse any grammatical, word or spelling errors.
--- NOTE | 2024-10-10 14:20 | P.PN ---
Subjective Progress Note Date: 10/09/24 Principal diagnosis: Reason for follow-up is candidemia Patient is a 68-year-old male with multiple comorbidities and did have a PEG tube placement on 09/02/2024 subsequent admission to the hospital for intractable nausea and vomiting patient did have a Rickie-en-Y gastrojejunostomy and on 10/03/2024 and subsequent fascial dehiscence that was repaired he did spike a fever and blood cultures came back positive with Alethea prompted this consultation. On today's evaluation that is 10/09/2024, the patient continues to be afebrile, the patient is more awake and alert today, currently on 2 L nasal cannula and breathing comfortably, the Pt denies having any chest pain or cough, the patient denies having any nausea vomiting abdominal pain is currently controlled. Patient did have a white count of 10.27 creatinine 0.79 Objective - Vital Signs Vital signs: Vital Signs Temp 98.4 F 10/09/24 19:11 Pulse 81 10/09/24 19:11 Resp 18 10/09/24 19:11 BP 127/75 10/09/24 19:11 Pulse Ox 99 10/09/24 19:11 FiO2 Intake & Output 10/09/24 10/09/24 10/10/24 06:59 18:59 06:59 Intake Total 1047 Output Total 100 Balance 1047 -100 Weight 34.5 kg Intake: Intake, IV Titration 1047 Amount Mvi, Adult No.4 with Vit 1047 K 10 ml Trace (Conc-1Ml/ Dose) 1 ml Calcium Gluconate 1 gm Potassium Acetate 46 meq Potassium Phosphate 9 mmol In Amino Acids 5 %/Dextrose 20 % 1,000 ml @ 80 mls/hr IV . BY DURATION [facility] Rx#: [id number] Output: Drainage 100 Abdomen 100 Other: Voiding Method Diaper Diaper # Voids 6 2 - Exam GENERAL DESCRIPTION: An elderly male lying in bed in no distress RESPIRATORY SYSTEM: Unlabored breathing , decreased breath sounds at bases HEART: S1 S2 regular rate and rhythm , ABDOMEN: Soft , no tenderness EXTREMITIES: No edema feet - Labs CBC & Chem 7: 10/09/24 04:30 10/10/24 06:12 Labs: Abnormal Lab Results - Last 24 Hours (Table) 10/09/24 10/09/24 10/09/24 Range/Units 00:22 04:30 04:30 WBC 10.27 H (4.50-10.00) 10*3/uL RBC 2.94 L (4.40-5.60) 10*6/uL Hgb 9.1 L D (13.0-17.0) g/dL Hct 27.4 L (39.6-50.0) % RDW 16.3 H (11.5-14.5) % MPV 13.7 H (9.5-12.2) fL Immature Gran # 0.13 H (0.00-0.04) 10*3/uL Neutrophils # 8.95 H (1.80-7.70) 10*3/uL Neutrophils # (Manual) 9.34 H (1.3-7.7) k/uL Lymphocytes # 0.71 L (0.90-5.00) 10*3/uL Lymphocytes # (Manual) 0.41 L (1.0-4.8) k/uL Chloride 110 H (98-107) mmol/L BUN 34 H (9-20) mg/dL Glucose 167 H (74-99) mg/dL POC Glucose (mg/dL) 175 H (70-110) mg/dL Calcium 8.1 L (8.4-10.2) mg/dL Magnesium 1.5 L (1.6-2.3) mg/dL AST 74 H (17-59) U/L ALT 65 H (4-49) U/L Alkaline Phosphatase 380 H (38-126) U/L Total Protein 4.7 L (6.3-8.2) g/dL Albumin 2.0 L (3.5-5.0) g/dL 10/09/24 10/09/24 10/09/24 Range/Units 06:03 12:20 17:16 WBC (4.50-10.00) 10*3/uL RBC (4.40-5.60) 10*6/uL Hgb (13.0-17.0) g/dL Hct (39.6-50.0) % RDW (11.5-14.5) % MPV (9.5-12.2) fL Immature Gran # (0.00-0.04) 10*3/uL Neutrophils # (1.80-7.70) 10*3/uL Neutrophils # (Manual) (1.3-7.7) k/uL Lymphocytes # (0.90-5.00) 10*3/uL Lymphocytes # (Manual) (1.0-4.8) k/uL Chloride (98-107) mmol/L BUN (9-20) mg/dL Glucose (74-99) mg/dL POC Glucose (mg/dL) 187 H 187 H 216 H (70-110) mg/dL Calcium (8.4-10.2) mg/dL Magnesium (1.6-2.3) mg/dL AST (17-59) U/L ALT (4-49) U/L Alkaline Phosphatase (38-126) U/L Total Protein (6.3-8.2) g/dL Albumin (3.5-5.0) g/dL Microbiology - Last 24 Hours (Table) 10/06/24 08:29 Blood Culture Gram Stain - Final Blood Blood Culture - Final Alethea albicans Molecular ID Assessment and Plan (1) Sepsis Current Visit: Yes Status: Acute Code(s): A41.9 - SEPSIS, UNSPECIFIED ORGANISM SNOMED Code(s): 25118447 (2) Candidemia Current Visit: Yes Status: Acute Code(s): B37.7 - CANDIDAL SEPSIS SNOMED Code(s): 870849928 Plan: 1patient with a complicated history in this patient has been in the hospital for almost a month before this initial consultation on 10/08/2024 with the presentation with intractable nausea vomiting in this patient with status post Rickie-en-Y gastrojejunostomy on 09/25/2024 did have a subsequent fascial dehiscen ce requiring surgical repair and the patient did spike a fever on 10/06/2024 with a blood culture no positive for candidemia he did have a last CT on 10/03/2024 did not show any concern for an abscess with a possible source could be PICC line which has been there for almost a month however underlying abdominal source not done excluded. 2blood culture has been repeated from the PICC and peripheral which are currently pending still recommending CT abdominal pelvis 3-for now patient will be treated with Eraxis while waiting for the workup to be completed Dictation was produced using [employer] dictation software. please excuse any grammatical, word or spelling errors. Time with Patient: Less than 30
--- NOTE | 2024-10-10 14:21 | P.PN ---
Subjective Progress Note Date: 10/10/24 Principal diagnosis: Reason for follow-up is candidemia Patient is a 68-year-old male with multiple comorbidities and did have a PEG tube placement on 09/02/2024 subsequent admission to the hospital for intractable nausea and vomiting patient did have a Rickie-en-Y gastrojejunostomy and on 10/03/2024 and subsequent fascial dehiscence that was repaired he did spike a fever and blood cultures came back positive with Alethea prompted this consultation. On today's evaluation that is 10/10/2024, Patient is afebrile patient is currently on 2 L current oxygen and denies having any shortness of breath, the patient denies any chest pain or cough, the patient denies any nausea vomiting did not have any abdominal pain and no diarrhea. The patient did have a creatinine 0.79 no CBC was done today blood culture repeat so far pending Objective - Vital Signs Vital signs: Vital Signs Temp 98.3 F 10/10/24 07:28 Pulse 83 10/10/24 07:28 Resp 24 10/10/24 07:28 BP 107/71 10/10/24 07:28 Pulse Ox 97 10/10/24 07:28 FiO2 Intake & Output 10/09/24 10/10/24 10/10/24 18:59 06:59 18:59 Intake Total 1036 Output Total 100 150 Balance 936 -150 Weight 34.5 kg Intake: Intake, IV Titration 1036 Amount Calcium Gluconate 1 gm 1036 Potassium Acetate 46 meq Potassium Phosphate 9 mmol In Amino Acids 5 %/ Dextrose 20 % 1,000 ml @ 80 mls/hr IV .BY DURATION [facility] Rx#:[id number] Output: Drainage 100 150 Abdomen 100 150 Other: Voiding Method Diaper Diaper Diaper # Voids 2 2 - Exam GENERAL DESCRIPTION: An elderly male lying in bed in no distress RESPIRATORY SYSTEM: Unlabored breathing , decreased breath sounds at bases HEART: S1 S2 regular rate and rhythm , ABDOMEN: Soft , no tenderness EXTREMITIES: No edema feet - Labs CBC & Chem 7: 10/09/24 04:30 10/10/24 06:12 Labs: Abnormal Lab Results - Last 24 Hours (Table) 10/09/24 10/10/24 10/10/24 Range/Units 17:16 00:11 06:06 BUN (9-20) mg/dL Glucose (74-99) mg/dL POC Glucose (mg/dL) 216 H 190 H 194 H (70-110) mg/dL Calcium (8.4-10.2) mg/dL ALT (4-49) U/L Alkaline Phosphatase (38-126) U/L Total Protein (6.3-8.2) g/dL Albumin (3.5-5.0) g/dL 10/10/24 10/10/24 Range/Units 06:12 12:15 BUN 31 H (9-20) mg/dL Glucose 177 H (74-99) mg/dL POC Glucose (mg/dL) 174 H (70-110) mg/dL Calcium 8.0 L (8.4-10.2) mg/dL ALT 65 H (4-49) U/L Alkaline Phosphatase 343 H (38-126) U/L Total Protein 4.7 L (6.3-8.2) g/dL Albumin 2.0 L (3.5-5.0) g/dL Microbiology - Last 24 Hours (Table) 10/08/24 18:12 Blood Culture - Preliminary Blood 10/06/24 08:29 Blood Culture Gram Stain - Final Blood Blood Culture - Final Alethea albicans Molecular ID Assessment and Plan (1) Sepsis Current Visit: Yes Status: Acute Code(s): A41.9 - SEPSIS, UNSPECIFIED ORGAN ISM SNOMED Code(s): 37215399 (2) Candidemia Current Visit: Yes Status: Acute Code(s): B37.7 - CANDIDAL SEPSIS SNOMED Code(s): 558945865 Plan: 1patient with a complicated history in this patient has been in the hospital for almost a month before this initial consultation on 10/08/2024 with the presentation with intractable nausea vomiting in this patient with status post Rickie-en-Y gastrojejunostomy on 09/25/2024 did have a subsequent fascial dehiscence requiring surgical repair and the patient did spike a fever on with a blood culture no positive for candidemia he did have a last CT on 10/03/2024 did not show any concern for an abscess with a possible source could be PICC line which has been there for almost a month however underlying abdominal source not done excluded. 2blood culture has been repeated from the PICC and peripheral which are currently pending 3-patient will benefit from a repeat CT abdominal pelvis to rule out abdominal source and continue with Eraxis while waiting for the repeat culture to finalize Dictation was produced using [employer] dictation software. please excuse any gramma tical, word or spelling errors.
[2024-10-10 18:05] LABS: Glucose,Whole Blood 123 mg/dL (70-110)
[2024-10-11 01:24] LABS: Glucose,Whole Blood 182 mg/dL (70-110)
--- NOTE | 2024-10-11 05:39 | P.PN ---
Subjective Progress Note Date: 10/10/24 This is a pleasant 68 years old male who was recently discharged from this facility about 4 days ago for nausea vomiting and malnutrition status post PEG tube placement by surgery team. Once he been discharged he started having recurrent nausea vomiting again, he vomited 6 times since yesterday with no blood. Associated with epigastric pain and tenderness His troponin was elevated but EKG showing SVT. He has been evaluated by milieu technician as well during last admission for elevated troponin. Currently denies chest pain or dyspnea. No specific urinary symptoms. No headache dizziness weakness or numbness He is pain mainly in the epigastric area about 9/10 felt like squeezing nonradiating with no precipitating or relieving factors. He states that the pain is similar to last time. He has no bowel movement. He is using the PEG tube at home. He got Zofran 4 mg and is requesting more medicine He is hemodynamically stable and afebrile He has unremarkable CBC, BMP, LFT. WBC is mildly elevated at 10.4 at 11. Lactic acid 4.6 came back to normal at 1.7. Troponin is elevated 0.065. KUB showing nonspecific gas bowel pattern. EKG showed SVT with a rate of [address] depression in V3-V5 Patient lying in bed with no dyspnea or chest pain He is vomiting of blood today. He still has nausea vomiting. He was on Zofran 8 mg we will going to add Reglan IV 5 and then 10 mg. hemoglobin stable at 12.4 with slight improvement. Vital stable. He is not on any blood thinners or aspirin. His on Protonix IV twice daily added today Also we added D5 normal saline Discussed the case with surgery team. CT of the abdomen pelvis with IV contrast is requested. Currently patient denies any abdominal pain or epigastric tenderness. /10 No vomiting today, looks tired No abdominal pain or tenderness PEG tube is in place and feeding tube on hold He still getting IV fluids and Zosyn Plan for EGD today with surgery team given his hematemesis yesterday. Hemoglobin was stable yesterday at 11.3 Monitor hemoglobin Continue with Protonix He is getting Reglan [id number] which prevent him from vomiting 09/25 i came to see the pt twice and he was no in his room 09/26 Patient seen and examined at bedside. He is awake and alert ,he is status post Roex-en-Y gastrojejunostomy. Today postop day #1 He still complaining from epigastric pain and mild tenderness with PEG tube placement to gravity. Patient is not getting tube feeding Patient is getting D5W at 100 mL/h, sodium improved 150 down to 146 today Also patient is getting Zosyn WBC 16.1, hemoglobin 8.4 and sodium 146 Is getting Reglan 5 mg as needed will added 10 mg 09/27 Patient remains with GI symptoms. PEG tube to gravity and patient received TPN. Still with nausea and some abdominal/epigastric pain and tenderness although partially improved. No other new complaint. Labs look stable or slightly improving with sodium 147, hemoglobin 13 and WBC down to 11.3 Nephrology consult was obtained Patient started on normal saline at 100 mL/h and D5W was stopped 09/28 Patient states he is the same over the last 2 days he still have some epigastric pain and tenderness which looks the same also he has some nausea and vomiting although he was taking Reglan. Also patient WBC went up to 13.3. Hemoglobin down to 9.3 Sodium 148 potassium 3.1 Replace potassium per protocol Started on D5W at give Ativan x 1 to help with anxiety and with nausea vomiting 09/29 Patient developed significant tachycardia last night and this morning with heart rate going up to 150 and 160/min. EKG showing sinus tachycardia. Heart rate improved down to 100 and blood pressure stable with systolic 120-150 It is thought multifactorial secondary to anxiety dehydration infection electrolyte abnormalities and pain. D-dimer is ordered but the suspicion for PE is low Patient with no chest pain or dyspnea, actually patient this is the first time he told me he feels better since I saw him from admission. He was sitting in chair with slight weakness. He still getting TPN Zosyn. He getting D5W at 50 mL/h but sodium increased to 152 so increase the dose to 125 mL/h Dilaudid added IV Lopressor 5 mg every 8 hours and clonidine patch 0.1 mg Also low potassium and magnesium being replaced. 09/30 Patient is lethargic today with some nausea. He denies epigastric abdominal pain. He is still tachycardic with heart around 120 WBC is 14.5, hemoglobin 9.6 and He remains on D5W at 125 Eliquis dose lowered to 2.5 10/01 Patient today feels improved and better he denies chest pain or dyspnea no epigastric pain or tenderness significant than the other days. PEG tube still in place but not working. Still getting TPN He still tachycardic and blood pressure still slightly on the high side, he got 3 doses of Lopressor 5 mg IV yesterday, we will going to increase his clonidine patch 0.2 up to 0.3. He has CTA of the chest done yesterday for suspicion of PE, no pulm embolism found however there is lung nodule 1.1 cm that he needs follow-up in 3 months for report also there is bilateral groundglass opacities and nodular lesions suspicious for pneumonia versus aspiration pneumonia versus cryptogenic organizing pneumonia. Also there is retained material or secretions or food in the lower esophagus which cause more with aspiration pneumonitis. Patient remains on IV Protonix for esophagitis Therefore patient remains on IV Zosyn. Low potassium but replace per protocol today The other thing his hypernatremia significantly improved 122 yesterday and 124 today while he is on D5 W at 75 mL today compared to 125 yesterday Check labs in the morning 10/02 Today patient feels tired weak and sweaty Blood pressure is low normal, became slightly tachycardic 115. His heart rate is getting controlled with the clonidine patch 0.3 mg and now requiring only once daily dose of IV Lopressor 5 mg over the last 2 days. His albumin is 2.0. His sodium 138 he remains on D5W. He is still getting TPN Will give IV albumin 25 % x 1 Hemoglobin 9.1 10/03 Patient developed severe bleeding from his epigastric wound and his abdominal wall with hemoglobin dropped down to 6.8 and 6.3 received several units of blood transfusion. He was taking to the operating room emergently by surgery team and the bleeding was stopped and the wound was sutured again. After that patient was taken to the ICU 10/04 Patient awake alert He feels comfortable He still has expected tenderness at the surgical site Pain is treated with IV Tylenol per surgery team 10/05 Patient awake alert sitting up in bed He denies vomiting Abdominal pain is better Blood pressure 92/65 10/06 He still has some epigastric abdominal pain that comes and goes. He rated about 5-7/10. Yesterday was 10/10 which looks improving Surgical vertical wound is with a dressing in place Patient getting TPN. 10/07/2024 Patient is seen in follow-up today with general surgery following and patient is maintained on TPN. Sodium remains elevated at 149 and per pharmacy notes no further sodium noted in the TPN. Tube feeds remain on hold. Patient continues with J-tube to drainage noted to have some biliary drainage and patient remains NPO. Patient also being followed by pulmonary maintained on room air and is not reporting any shortness of breath. Patient currently afebrile although is having intermittent low-grade temps and maintained on IV Zosyn. Prognosis remains guarded. 10/08/2024 Patient seen in follow-up today with no significant improvements noted reporting continued nausea With vomiting today NG tube remains to drainage per general surgery and is continued on TPN. Sodium remains elevated at 149 and nephrology following as well adjusted IV hydration and will follow up on repeat labs. Patient did have a preliminary blood culture that was positive and infectious disease was consulted patient is maintained on Zosyn and repeat blood cultures pending. Concerns about possible PICC line contamination. Patient is afebrile with no reports of chest pain or shortness of breath. Encouraged to increase activity as tolerated although patient is mostly bedbound. Prognosis is guarded. 10/09/2024 Patient is seen in follow-up today with multiple consultations following. Patient is status post fascial dehiscence repair of the upper incision of the midline incision and also Rickie-en-Y gastrojejunostomy placement and tube was flushed and appears to be functioning with no further vomiting noted. Patient continues on TPN and PEG tube to drainage and will continue. White blood count is improving and hemoglobin remained stable with no bleeding noted. Infectious disease has been consulted maintained on Zosyn and awaiting cultures with initial preliminary blood culture showing molecular ID along with Alethea albicans. No vomiting noted today. Patient remains NPO. Nephrology following and has transitioned hydration with increased rate and sodium is improved at 141 today, potassium is 3.8, BUN is 34 with a creatinine of 0.79. Magnesium is 1.5 and will be replaced ALT/AST are mildly elevated and trending down. Patient is significantly weak and recommend PT/OT therapy daily and getting out of the bed more frequently. No bowel movements in the last few days and would recommend bowel regimen. 10/10/2024 Patient is seen in follow-up today reporting still feeling improved and is inquiring about when he can go home. Patient reported to surgery he had a bowel movement although unsure if this was true. Patient denies any further nausea or vomiting at this time and PEG tube remains to drainage. Patient is continued on TPN and will replace electrolytes per protocol. Nephrology following as well and sodium is improving and will continue current regimen. Per PT/OT therapy notes, patient would benefit from rehab for continued strength mobility due to significant weakness and prolonged hospitalization. Review of systems: Constitutional: No reports of fatigue, fever, or chills Cardiovascular: No reports of chest pain or palpitations Respiratory: No reports of shortness of breath or cough GI: No reports of nausea, vomiting, or diarrhea today, patient reports having a bowel movement : No reports of dysuria or retention Neurovascular: reports of weakness but reports would like to go home All medications have been reviewed Physical exam: GENERAL: The patient is much more awake and alert today, alert and oriented x3, not in any acute distress. Appears older than stated age, well developed, ill- appearing, cachectic, significant muscle wasting noted. Thin built HEENT: Pupils are round and equally reacting to light. EOMI. No scleral icterus. No conjunctival pallor. Normocephalic, atraumatic. No pharyngeal erythema. No thyromegaly. CARDIOVASCULAR: S1 and S2 muffled, less tachycardic PULMONARY: Diminished breath sounds bilaterally otherwise chest is clear to ausc ultation, no wheezing , no crackles. ABDOMEN: Soft, nontender, nondistended, hypoactive bowel sounds. No palpable organomegaly. PEG tube is in place with no Abdominal tenderness or guarding MUSCULOSKELETAL: No joint swelling or deformity. EXTREMITIES: No cyanosis, clubbing, or pedal edema. NEUROLOGICAL: Gross neurological examination did not reveal any focal deficits. Diffusely weak SKIN: No rashes. no petechiae. 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 Epigastric pain and tenderness could be secondary to gastritis, status post Roex-en-Y gastrojejunostomy. S/p G-tube placement Severe calorie protein malnutrition with a BMI of 11.6 Sinus tachycardia versus SVT requiring metoprolol clonidine patch, better controlled Elevated troponin could be secondary to SVT related dehydration, evaluated by cardiology during last admission Hypertension Hyperlipidemia Anxiety/depression, not on active issue Distal esophagitis Hiatal hernia seen on recent EKG GI prophylaxis DVT prophylaxis Full code Plan: Patient is being closely monitored with multiple consultations following including infectious disease as patient had a blood culture positive from 10/06/2024. Repeat blood culture and pending at this time. Previous blood culture preliminary showing Alethea Patient remains n.p.o. maintained on TPN and tube feedings are also on hold per surgery. PEG tube remains to drainage. Social work is following regarding discharge planning as patient reports wants to go home although was evaluated by physical therapy recommending rehab and has placed referrals. Patient also noted to be on continued TPN and discussing the possibility of requiring it on discharge. Unsure if this is a covered benefit Pulmonary following patient is maintained on room air with no reports of worsening shortness of breath continue n.p.o. status until bowel activity per surgery. Patient with no further episodes of nausea or vomiting today. Follow-up on repeat labs and replace electrolytes per protocol Would recommend increased activity as tolerated and will recommend PT/OT therapy daily. PT/OT therapy recommending rehab and referrals were placed Overall prognosis is extremely guarded at this time The impression and plan of care has been dictated by Yanira Linda, Nurse Practitioner as directed. Dr. Bentley MD I have performed a history and examination and MDM of this patient, discussed the same with the dictator, and agree with the dictator's assessment and plan as written ,documented as a scribe. Based on total visit time, I have performed more than 50% of the visit. Objective - Vital Signs Vital signs: Vital Signs Temp 98.3 F 10/10/24 07:28 Pulse 83 10/10/24 07:28 Resp 24 10/10/24 07:28 BP 107/71 10/10/24 07:28 Pulse Ox 97 10/10/24 07:28 FiO2 Intake & Output 10/09/24 10/10/24 10/10/24 18:59 06:59 18:59 Intake Total 1036 Output Total 100 150 Balance 936 -150 Weight 34.5 kg Intake: Intake, IV Titration 1036 Amount Calcium Gluconate 1 gm 1036 Potassium Acetate 46 meq Potassium Phosphate 9 mmol In Amino Acids 5 %/ Dextrose 20 % 1,000 ml @ 80 mls/hr IV .BY DURATION [facility] Rx#:[id number] Output: Drainage 100 150 Abdomen 100 150 Other: Voiding Method Diaper Diaper # Voids 2 2 - Labs CBC & Chem 7: 10/09/24 04:30 10/10/24 06:12 Labs: Abnormal Lab Results - Last 24 Hours (Table) 10/09/24 10/09/24 10/09/24 Range/Units 04:30 12:20 17:16 Neutrophils # 8.95 H (1.80-7.70) 10*3/uL Neutrophils # (Manual) 9.34 H (1.3-7.7) k/uL Lymphocytes # 0.71 L (0.90-5.00) 10*3/uL Lymphocytes # (Manual) 0.41 L (1.0-4.8) k/uL BUN (9-20) mg/dL Glucose (74-99) mg/dL POC Glucose (mg/dL) 187 H 216 H (70-110) mg/dL Calcium (8.4-10.2) mg/dL ALT (4-49) U/L Alkaline Phosphatase (38-126) U/L Total Protein (6.3-8.2) g/dL Albumin (3.5-5.0) g/dL 10/10/24 10/10/24 10/10/24 Range/Units 00:11 06:06 06:12 Neutrophils # (1.80-7.70) 10*3/uL Neutrophils # (Manual) (1.3-7.7) k/uL Lymphocytes # (0.90-5.00) 10*3/uL Lymphocytes # (Manual) (1.0-4.8) k/uL BUN 31 H (9-20) mg/dL Glucose 177 H (74-99) mg/dL POC Glucose (mg/dL) 190 H 194 H (70-110) mg/dL Calcium 8.0 L (8.4-10.2) mg/dL ALT 65 H (4-49) U/L Alkaline Phosphatase 343 H (38-126) U/L Total Protein 4.7 L (6.3-8.2) g/dL Albumin 2.0 L (3.5-5.0) g/dL Microbiology - Last 24 Hours (Table) 10/08/24 18:12 Blood Culture - Preliminary Blood 10/06/24 08:29 Blood Culture Gram Stain - Final Blood Blood Culture - Final Alethea albicans Molecular ID
[2024-10-11 05:58] LABS: Glucose,Whole Blood 173 mg/dL (70-110)
[2024-10-11 06:09] LABS: African American GFR (CKD) >90 (>60 ml/min/1.73 sqM); Anion Gap 9 mmol/L; Blood Urea Nitrogen 30 mg/dL (9-20); Calcium 8.2 mg/dL (8.4-10.2); Carbon Dioxide 23 mmol/L (22-30); Chloride 108 mmol/L (98-107); Glucose 180 mg/dL (74-99); Magnesium 1.8 mg/dL (1.6-2.3); Non-African American GFR(CKD) >90 (>60 ml/min/1.73 sqM); Phosphorus 3.1 mg/dL (2.5-4.5); Potassium 4.1 mmol/L (3.5-5.1); Sodium 140 mmol/L (137-145)
[2024-10-11 08:12] LABS: Basophils # (A) 0.04 10*3/uL (0.00-0.10); Basophils % (A) 0.4 %; Eosinophils # (A) 0.37 10*3/uL (0.04-0.35); HGB 8.9 g/dL (13.0-17.0); Lymphocytes # (A) 0.63 10*3/uL (0.90-5.00); Lymphocytes % (A) 6.8 %; MCH 30.9 pg (27.0-32.0); MCV 93.8 fL (80.0-97.0); Monocytes # (A) 0.31 10*3/uL (0.20-1.00); Monocytes % (A) 3.3 %; Neutrophils # (A) 7.52 10*3/uL (1.80-7.70); Neutrophils % (A) 81.3 %; Platelet Count 235 10*3/uL (140-440); RBC 2.88 10*6/uL (4.40-5.60); RDW 15.8 % (11.5-14.5); WBC 9.26 10*3/uL (4.50-10.00)
[2024-10-11 09:31] LABS: Large Platelets Present; RBC Morphology Normal
--- NOTE | 2024-10-11 10:34 | P.PN ---
Subjective Patient is seen in follow-up for hypernatremia. Sodium level 140 today. Receiving TPN. Vital signs are stable. General: No acute distress. HEENT: Head exam is unremarkable. LUNGS: No audible rhonchi or wheezes. HEART: Rate and Rhythm are regular. ABDOMEN: J-tube noted. EXTREMITITES: No edema. Objective - Vital Signs Vital signs: Vital Signs Temp 98.3 F 10/11/24 08:00 Pulse 72 10/11/24 08:00 Resp 20 10/11/24 08:00 BP 111/72 10/11/24 08:00 Pulse Ox 99 10/11/24 08:00 FiO2 Intake & Output 10/10/24 10/11/24 10/11/24 18:59 06:59 18:59 Intake Total 1336 Output Total 150 700 350 Balance 1186 -700 -350 Intake: IV 100 Piperacillin-Tazobactam 3 100 .375 gm In Sodium Chloride 0.9% 100 ml @ 25 mls/hr IVPB Q8H [facility] Rx#: [id number] Intake, IV Titration 1236 Amount Anidulafungin 100 mg In 100 Sodium Chloride 0.9% 100 ml @ 84 mls/hr IVPB DAILY REPLACED BY [facility] Rx#:[id number] Calcium Gluconate 1 gm 1036 Potassium Acetate 46 meq Potassium Phosphate 9 mmol In Amino Acids 5 %/ Dextrose 20 % 1,000 ml @ 80 mls/hr IV .BY DURATION REPLACED BY [facility] Rx#:[id number] Magnesium Sulfate-D5w Pmx 100 1 gm In Dextrose/Water 1 100ml.bag @ 100 mls/hr IVPB ONCE ONE Rx#: [id number] Output: Drainage 150 Abdomen 150 Urine 700 350 Other: Voiding Method Diaper Diaper External Catheter # Voids 4 - Labs CBC & Chem 7: 10/11/24 05:14 10/11/24 05:14 Labs: Abnormal Lab Results - Last 24 Hours (Table) 10/10/24 10/10/24 10/11/24 Range/Units 12:15 18:03 01:16 RBC (4.40-5.60) 10*6/uL Hgb (13.0-17.0) g/dL Hct (39.6-50.0) % RDW (11.5-14.5) % MPV (9.5-12.2) fL Immature Gran # (0.00-0.04) 10*3/uL Lymphocytes # (0.90-5.00) 10*3/uL Eosinophils # (0.04-0.35) 10*3/uL Chloride (98-107) mmol/L BUN (9-20) mg/dL Glucose (74-99) mg/dL POC Glucose (mg/dL) 174 H 123 H 182 H (70-110) mg/dL Calcium (8.4-10.2) mg/dL 10/11/24 10/11/24 10/11/24 Range/Units 05:14 05:14 05:54 RBC 2.88 L (4.40-5.60) 10*6/uL Hgb 8.9 L (13.0-17.0) g/dL Hct 27.0 L (39.6-50.0) % RDW 15.8 H (11.5-14.5) % MPV 14.0 H (9.5-12.2) fL Immature Gran # 0.39 H (0.00-0.04) 10*3/uL Lymphocytes # 0.63 L (0.90-5.00) 10*3/uL Eosinophils # 0.37 H (0.04-0.35) 10*3/uL Chloride 108 H (98-107) mmol/L BUN 30 H (9-20) mg/dL Glucose 180 H (74-99) mg/dL POC Glucose (mg/dL) 173 H (70-110) mg/dL Calcium 8.2 L (8.4-10.2) mg/dL Microbiology - Last 24 Hours (Table) 10/08/24 18:12 Blood Culture - Preliminary Blood Assessment and Plan Plan: Assessment: 1. Hypernatremia from lack of oral water intake. Better with D5W. Sodium level 140 today. 2. SMA syndrome. Surgery following. 3. Status post J-tube placement September 25, 2024. 4. Hypokalemia from poor intake. Status post replacement. Magnesium normal. 5. Alethea bacteremia. Plan: TPN per surgery. Off IV fluids.
--- NOTE | 2024-10-11 10:42 | P.PN ---
Subjective Progress Note Date: 10/11/24 SURGICAL PROGRESS NOTE CHIEF COMPLAINT: Recurrent nausea and vomiting HISTORY OF PRESENT ILLNESS: Postop day #8 status post repair of fascial dehiscence upper incision of the midline incision. Status post Rickie-en-Y gastrojejunostomy on 09/25/24. Patient had new PICC line placed this morning. Other PICC line tip sent for culture due to blood culture with candidemia per ID service. PEG tube to drainage with bilious output. No vomiting today. Pain controlled. Afebrile. WBC 9.[address] Lovett who is covering for Dr. Pavon PHYSICAL EXAM: VITAL SIGNS: Reviewed. GENERAL: Well-developed in no acute distress. ABDOMEN: Soft. Nondistended. Abdominal binder in place. PEG tube to drainage with bilious output NEUROLOGIC: Alert and oriented. Cranial nerves II through XII grossly intact. ASSESSMENT: 1. SMA syndrome 2. Upper GI bleed with bright red blood and coffee-ground emesis. now resolved 3. Intractable nausea and vomiting 4. History of esophageal dysmotility disorder 5. Hiatal hernia 6. Esophagitis 7. Severe protein calorie malnutrition 8. Leukocytosis is reactive from surgery 9. Anemia secondary to malnutrition. 10. Fascial dehiscence of incision status post repair PLAN: -Infectious ease recommendations noted. Discussed with Dr. Lovett. Ordered a CT scan abdomen pelvis with IV contrast to evaluate for abdominal source of positive blood culture -Continue to monitor -Keep patient n.p.o. -Continue TPN for nutrition support -keep peg tube to drainage -Continue antibiotics -Checking with manager application on options of continuing TPN at discharge -DVT prophylaxis subcu heparin Physician Product Managent Intern note has been reviewed by physician. Signing provider agrees with the documented findings, assessment, and plan of care. I have personally seen and examined the patient, reviewed the HVAC MANAGER /PAs history, exam and MDM and agree with the assessment and plan as written. Based on total visit time, I have performed more than 50% of the visit. As above: Patient much more alert over the last 48 hours. Blood cultures did show fungal infection. Awaiting CT abdomen. Patient having mild abdominal pain that he says continues to gradually improve. Mostly with movement. Objective - Vital Signs Vital signs: Vital Signs Temp 98.3 F 10/11/24 08:00 Pulse 72 10/11/24 08:00 Resp 20 10/11/24 08:00 BP 111/72 10/11/24 08:00 Pulse Ox 99 10/11/24 08:00 FiO2 Intake & Output 10/10/24 10/11/24 10/11/24 18:59 06:59 18:59 Intake Total 1336 Output Total 150 700 Balance 1186 -700 Intake: IV 100 Piperacillin-Tazobactam 3 100 .375 gm In Sodium Chloride 0.9% 100 ml @ 25 mls/hr IVPB Q8H [facility] Rx#: [id number] Intake, IV Titration 1236 Amount Anidulafungin 100 mg In 100 Sodium Chloride 0.9% 100 ml @ 84 mls/hr IVPB DAILY [facility] Rx#:[id number] Calcium Gluconate 1 gm 1036 Potassium Acetate 46 meq Potassium Phosphate 9 mmol In Amino Acids 5 %/ Dextrose 20 % 1,000 ml @ 80 mls/hr IV .BY DURATION [facility] Rx#:[id number] Magnesium Sulfate-D5w Pmx 100 1 gm In Dextrose/Water 1 100ml.bag @ 100 mls/hr IVPB ONCE ONE Rx#: [id number] Output: Drainage 150 Abdomen 150 Urine 700 Other: Voiding Method Diaper Diaper External Catheter # Voids 4 - Labs CBC & Chem 7: 10/11/24 05:14 10/11/24 05:14 Labs: Abnormal Lab Results - Last 24 Hours (Table) 10/10/24 10/10/24 10/11/24 Range/Units 12:15 18:03 01:16 RBC (4.40-5.60) 10*6/uL Hgb (13.0-17.0) g/dL Hct (39.6-50.0) % RDW (11.5-14.5) % MPV (9.5-12.2) fL Immature Gran # (0.00-0.04) 10*3/uL Lymphocytes # (0.90-5.00) 10*3/uL Eosinophils # (0.04-0.35) 10*3/uL Chloride (98-107) mmol/L BUN (9-20) mg/dL Glucose (74-99) mg/dL POC Glucose (mg/dL) 174 H 123 H 182 H (70-110) mg/dL Calcium (8.4-10.2) mg/dL 10/11/24 10/11/24 10/11/24 Range/Units 05:14 05:14 05:54 RBC 2.88 L (4.40-5.60) 10*6/uL Hgb 8.9 L (13.0-17.0) g/dL Hct 27.0 L (39.6-50.0) % RDW 15.8 H (11.5-14.5) % MPV 14.0 H (9.5-12.2) fL Immature Gran # 0.39 H (0.00-0.04) 10*3/uL Lymphocytes # 0.63 L (0.90-5.00) 10*3/uL Eosinophils # 0.37 H (0.04-0.35) 10*3/uL Chloride 108 H (98-107) mmol/L BUN 30 H (9-20) mg/dL Glucose 180 H (74-99) mg/dL POC Glucose (mg/dL) 173 H (70-110) mg/dL Calcium 8.2 L (8.4-10.2) mg/dL Microbiology - Last 24 Hours (Table) 10/08/24 18:12 Blood Culture - Preliminary Blood
--- NOTE | 2024-10-11 11:28 | CDI ---
Documentation Clarification Form Date: 10/11/2024 09:50:00 AM From: Bobbi Bill RN, CCDS Phone: [phone] Admit Date: 09/09/2024 11:23:00 PM Patient Name: Finn Alex Visit Number: [id number] Discharge Date: ATTENTION: The Clinical Documentation Specialists (CDI) and [facility] Coding Staff appreciate your assistance in clarifying documentation. Please respond to the clarification below the line at the bottom and electronically sign. The CDI & [facility] Coding staff will review the response and follow-up if needed. Please note: Queries are made part of the Legal Health Record. If you have any questions, please contact the author of this message via ITS. Doctor. Rickie Tavarez fascial dehiscence is documented in the progress notes starting on 10/03/24 and the patient had repair of fascial dehiscence. Additional clarification is requested regarding the relationship, if any, that exists between the diagnosis and the procedure. 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 He continues to have episodes of vomiting PEG tube placed on hold and was getting TPN-change to NPO 09/25 Rickie-en-Y gastrojejunostomy for SMA syndrome 10/03/24 progress note: The patient had hypotension overnight and it was leaking serosanguinous fluid from his abdominal incision. This apparently started after the patient was retching last night. There appears to be evidence of a fascial dehiscence in the upper abdominal incision. The patient will be taken emergently to the OR for repair of fascial dehiscence. 10/03 Lab: (03:59) HGB 6.3, HCT 19.3 10/03 (VS) (07: 54 (mean) BP 85/54 16 Treatment: ICU / Monitoring Repair of fascial dehiscence 10/03/24 Zosyn 3.375 GM IVPB Q 8 HRS 4 Units Red blood cells 2 Units Fresh frozen plasma What relationship, if any, exists between the diagnosis of fascial dehiscence and the procedure? [ ] Fascial dehiscence is clinically significant and not a complication [ ] Other please specify ____ [ xx] Unable to determine (Template Last Revised: June 2024) MTDD
[2024-10-11 12:12] LABS: Glucose,Whole Blood 185 mg/dL (70-110)
--- NOTE | 2024-10-11 13:26 | P.PN ---
Subjective Progress Note Date: 10/11/24 Principal diagnosis: Reason for follow-up is candidemia Patient is a 68-year-old male with multiple comorbidities and did have a PEG tube placement on 09/02/2024 subsequent admission to the hospital for intractable nausea and vomiting patient did have a Rickie-en-Y gastrojejunostomy and on 10/03/2024 and subsequent fascial dehiscence that was repaired he did spike a fever and blood cultures came back positive with Alethea prompted this consultation. On today's evaluation that is 10/11/2024, patient has been afebrile, patient is breathing comfortably and is currently on room air, patient denies having any chest pain and cough, patient denies nausea vomiting or diarrhea and no abdominal pain, patient mention feeling better wants to go home. Patient white count is 9.26, creatinine 0.70 blood culture repeat has been negative so far Objective - Vital Signs Vital signs: Vital Signs Temp 98.3 F 10/11/24 08:00 Pulse 72 10/11/24 08:00 Resp 20 10/11/24 08:00 BP 111/72 10/11/24 08:00 Pulse Ox 99 10/11/24 08:00 FiO2 Intake & Output 10/10/24 10/11/24 10/11/24 18:59 06:59 18:59 Intake Total 1336 Output Total 150 700 350 Balance 1186 -700 -350 Intake: IV 100 Piperacillin-Tazobactam 3 100 .375 gm In Sodium Chloride 0.9% 100 ml @ 25 mls/hr IVPB Q8H G[facility]ISH Rx#: [id number] Intake, IV Titration 1236 Amount Anidulafungin 100 mg In 100 Sodium Chloride 0.9% 100 ml @ 84 mls/hr IVPB DAILY GIRSIH Rx#:[id number] Calcium Gluconate 1 gm 1036 Potassium Acetate 46 meq Potassium Phosphate 9 mmol In Amino Acids 5 %/ Dextrose 20 % 1,000 ml @ 80 mls/hr IV .BY DURATION GIRISH Rx#:[id number] Magnesium Sulfate-D5w Pmx 100 1 gm In Dextrose/Water 1 100ml.bag @ 100 mls/hr IVPB ONCE ONE Rx#: [id number] Output: Drainage 150 Abdomen 150 Urine 700 350 Other: Voiding Method Diaper Diaper External Catheter # Voids 4 - Exam GENERAL DESCRIPTION: An elderly male lying in bed in no distress RESPIRATORY SYSTEM: Unlabored breathing , decreased breath sounds at bases HEART: S1 S2 regular rate and rhythm , ABDOMEN: Soft , no tenderness EXTREMITIES: No edema feet - Labs CBC & Chem 7: 10/11/24 05:14 10/11/24 05:14 Labs: Abnormal Lab Results - Last 24 Hours (Table) 10/10/24 10/11/24 10/11/24 Range/Units 18:03 01:16 05:14 RBC (4.40-5.60) 10*6/uL Hgb (13.0-17.0) g/dL Hct (39.6-50.0) % RDW (11.5-14.5) % MPV (9.5-12.2) fL Immature Gran # (0.00-0.04) 10*3/uL Lymphocytes # (0.90-5.00) 10*3/uL Eosinophils # (0.04-0.35) 10*3/uL Chloride 108 H (98-107) mmol/L BUN 30 H (9-20) mg/dL Glucose 180 H (74-99) mg/dL POC Glucose (mg/dL) 123 H 182 H (70-110) mg/dL Calcium 8.2 L (8.4-10.2) mg/dL Triglycerides 235.00 H (0.00-149.00) mg/dL 10/11/24 10/11/24 10/11/24 Range/Units 05:14 05:54 12:10 RBC 2.88 L (4.40-5.60) 10*6/uL Hgb 8.9 L (13.0-17.0) g/dL Hct 27.0 L (39.6-50.0) % RDW 15.8 H (11.5-14.5) % MPV 14.0 H (9.5-12.2) fL Immature Gran # 0.39 H (0.00-0.04) 10*3/uL Lymphocytes # 0.63 L (0.90-5.00) 10*3/uL Eosinophils # 0.37 H (0.04-0.35) 10*3/uL Chloride (98-107) mmol/L BUN (9-20) mg/dL Glucose (74-99) mg/dL POC Glucose (mg/dL) 173 H 185 H (70-110) mg/dL Calcium (8.4-10.2) mg/dL Triglycerides (0.00-149.00) mg/dL Microbiology - Last 24 Hours (Table) 10/08/24 18:12 Blood Culture - Preliminary Blood Assessment and Plan (1) Sepsis Current Visit: Yes Status: Acute Code(s): A41.9 - SEPSIS, UNSPECIFIED ORGANISM SNOMED Code(s): 94837245 (2) Candidemia Current Visit: Yes Status: Acute Code(s): B37.7 - CANDIDAL SEPSIS SNOMED Code(s): 993005586 Plan: 1patient with a complicated history in this patient has been in the hospital for almost a month before this initial consultation on 10/08/2024 with the present ation with intractable nausea vomiting in this patient with status post Rickie-en-Y gastrojejunostomy on 09/25/2024 did have a subsequent fascial dehiscence requiring surgical repair and the patient did spike a fever on 10/06/2024 with a blood culture no positive for candidemia he did have a last CT on 10/03/2024 did not show any concern for an abscess with a possible source could be PICC line which has been there for almost a month however underlying abdominal source not done excluded. 2blood culture has been repeated from the PICC and peripheral which are so far negative 3-patient is currently waiting for repeat CT abdominal pelvis to rule out abdominal source and discussed with NURSE PRACTICAL for admitting team to change his PICC line and continue with Eraxis Dictation was produced using [employer] dictation software. please excuse any grammatical, word or spelling errors. Time with Patient: Less than 30
--- NOTE | 2024-10-11 17:08 | CT ---
EXAMINATION TYPE: CT abdomen pelvis w con DATE OF EXAM: 10/11/2024 4:44 PM COMPARISON: Previous CT/pelvis study dated 10/03/2024. CLINICAL INDICATION: Male, 68 years old with history of positive blood culture, abdominal pain; Abdom inal pain and positive blood culture. Delayed scan times due to questionable IV. TECHNIQUE: Axial CT abdomen pelvis w con;Sagittal and coronal reformats were created on a separate w orkstation. Contrast used:100ml mL of Isovue 300 with IV Contrast, (none if empty) Oral contrast used: without Oral Contrast (none if empty) CT DLP: 1010 mGycm, Automated exposure control for dose reduction was used. FINDINGS: LOWER CHEST: Partially visualized patchy consolidative opacities and trace effusions. ABDOMEN LIVER: Unremarkable GALLBLADDER AND BILE DUCTS: The gallbladder is surgically absent. PANCREAS: Unremarkable. SPLEEN: Unremarkable. ADRENAL GLANDS: Unremarkable. KIDNEYS AND URETERS: No evidence of hydronephrosis or renal calculus. The ureters are unremarkable. PELVIS BLADDER: Mild cervical central urinary bladder wall thickening and left-sided bladder diverticulum. REPRODUCTIVE: Unremarkable. ABDOMEN & PELVIS STOMACH AND BOWEL: Percutaneous gastrostomy tube in place. Circumferential gastric wall thickening/ed erica which could reflect underlying gastritis. There are postoperative changes in the midline anterior abdominal wall with overlying skin francesco. Postsurgical changes near the GE junction. PERITONEUM/RETROPERITONEUM: No evidence of significant residual free air/pneumoperitoneum. Small volu me nonspecific free fluid in the pelvis. VASCULATURE: No evidence of aortic aneurysm. MUSCULOSKELETAL: No acute osseous abnormalities LYMPH NODES: No gross evidence for lymphadenopathy. SOFT TISSUE/ABDOMINAL WALL: Postsurgical changes in the anterior abdominal wall with midline laparoto my defect and overlying skin francesco. There is an air-fluid collection within the anterior abdominal wall measuring 2.6 x 2.1 cm (image 47/99). Additional loculated fluid collections more superiorly in the anterior abdominal wall measuring up to 4.1 x 1.5 cm. IMPRESSION: 1. Patchy consolidative opacities in the partially visualized lower lungs and trace effusions sugges tive of multifocal pneumonia in the appropriate clinical setting. 2. Interval postoperative changes involving the anterior abdominal wall with 2.1 x 2.6 cm air-fluid collection and additional small loculated fluid collections as described above. Findings could reflec t postoperative seromas or developing abscesses. 3. Mild circumferential urinary bladder wall thickening, recommend correlation with urinalysis for c ystitis. 4. Nonspecific small volume free fluid in the pelvis. [facility], , 10/11/2024 5:05 PM
[2024-10-11 18:19] LABS: Glucose,Whole Blood 175 mg/dL (70-110)
--- NOTE | 2024-10-11 23:22 | P.PN ---
Subjective Progress Note Date: 10/11/24 This is a pleasant 68 years old male who was recently discharged from this facility about 4 days ago for nausea vomiting and malnutrition status post PEG tube placement by surgery team. Once he been discharged he started having recurrent nausea vomiting again, he vomited 6 times since yesterday with no blood. Associated with epigastric pain and tenderness His troponin was elevated but EKG showing SVT. He has been evaluated by photographic machine operator as well during last admission for elevated troponin. Currently denies chest pain or dyspnea. No specific urinary symptoms. No headache dizziness weakness or numbness He is pain mainly in the epigastric area about 9/10 felt like squeezing nonradiating with no precipitating or relieving factors. He states that the pain is similar to last time. He has no bowel movement. He is using the PEG tube at home. He got Zofran 4 mg and is requesting more medicine He is hemodynamically stable and afebrile He has unremarkable CBC, BMP, LFT. WBC is mildly elevated at 10.4 at 11. Lactic acid 4.6 came back to normal at 1.7. Troponin is elevated 0.065. KUB showing nonspecific gas bowel pattern. EKG showed SVT with a rate of [address] depression in V3-V5 Patient lying in bed with no dyspnea or chest pain He is vomiting of blood today. He still has nausea vomiting. He was on Zofran 8 mg we will going to add Reglan IV 5 and then 10 mg. hemoglobin stable at 12.4 with slight improvement. Vital stable. He is not on any blood thinners or aspirin. His on Protonix IV twice daily added today Also we added D5 normal saline Discussed the case with surgery team. CT of the abdomen pelvis with IV contrast is requested. Currently patient denies any abdominal pain or epigastric tenderness. /10 No vomiting today, looks tired No abdominal pain or tenderness PEG tube is in place and feeding tube on hold He still getting IV fluids and Zosyn Plan for EGD today with surgery team given his hematemesis yesterday. Hemoglobin was stable yesterday at 11.3 Monitor hemoglobin Continue with Protonix He is getting Reglan [id number] which prevent him from vomiting 09/25 i came to see the pt twice and he was no in his room 09/26 Patient seen and examined at bedside. He is awake and alert ,he is status post Roex-en-Y gastrojejunostomy. Today postop day #1 He still complaining from epigastric pain and mild tenderness with PEG tube placement to gravity. Patient is not getting tube feeding Patient is getting D5W at 100 mL/h, sodium improved 150 down to 146 today Also patient is getting Zosyn WBC 16.1, hemoglobin 8.4 and sodium 146 Is getting Reglan 5 mg as needed will added 10 mg 09/27 Patient remains with GI symptoms. PEG tube to gravity and patient received TPN. Still with nausea and some abdominal/epigastric pain and tenderness although partially improved. No other new complaint. Labs look stable or slightly improving with sodium 147, hemoglobin 13 and WBC down to 11.3 Nephrology consult was obtained Patient started on normal saline at 100 mL/h and D5W was stopped 09/28 Patient states he is the same over the last 2 days he still have some epigastric pain and tenderness which looks the same also he has some nausea and vomiting although he was taking Reglan. Also patient WBC went up to 13.3. Hemoglobin down to 9.3 Sodium 148 potassium 3.1 Replace potassium per protocol Started on D5W at give Ativan x 1 to help with anxiety and with nausea vomiting 09/29 Patient developed significant tachycardia last night and this morning with heart rate going up to 150 and 160/min. EKG showing sinus tachycardia. Heart rate improved down to 100 and blood pressure stable with systolic 120-150 It is thought multifactorial secondary to anxiety dehydration infection electrolyte abnormalities and pain. D-dimer is ordered but the suspicion for PE is low Patient with no chest pain or dyspnea, actually patient this is the first time he told me he feels better since I saw him from admission. He was sitting in chair with slight weakness. He still getting TPN Zosyn. He getting D5W at 50 mL/h but sodium increased to 152 so increase the dose to 125 mL/h Dilaudid added IV Lopressor 5 mg every 8 hours and clonidine patch 0.1 mg Also low potassium and magnesium being replaced. 09/30 Patient is lethargic today with some nausea. He denies epigastric abdominal pain. He is still tachycardic with heart around 120 WBC is 14.5, hemoglobin 9.6 and He remains on D5W at 125 Eliquis dose lowered to 2.5 10/01 Patient today feels improved and better he denies chest pain or dyspnea no epigastric pain or tenderness significant than the other days. PEG tube still in place but not working. Still getting TPN He still tachycardic and blood pressure still slightly on the high side, he got 3 doses of Lopressor 5 mg IV yesterday, we will going to increase his clonidine patch 0.2 up to 0.3. He has CTA of the chest done yesterday for suspicion of PE, no pulm embolism found however there is lung nodule 1.1 cm that he needs follow-up in 3 months for report also there is bilateral groundglass opacities and nodular lesions suspicious for pneumonia versus aspiration pneumonia versus cryptogenic organizing pneumonia. Also there is retained material or secretions or food in the lower esophagus which cause more with aspiration pneumonitis. Patient remains on IV Protonix for esophagitis Therefore patient remains on IV Zosyn. Low potassium but replace per protocol today The other thing his hypernatremia significantly improved 122 yesterday and 124 today while he is on D5 W at 75 mL today compared to 125 yesterday Check labs in the morning 10/02 Today patient feels tired weak and sweaty Blood pressure is low normal, became slightly tachycardic 115. His heart rate is getting controlled with the clonidine patch 0.3 mg and now requiring only once daily dose of IV Lopressor 5 mg over the last 2 days. His albumin is 2.0. His sodium 138 he remains on D5W. He is still getting TPN Will give IV albumin 25 % x 1 Hemoglobin 9.1 10/03 Patient developed severe bleeding from his epigastric wound and his abdominal wall with hemoglobin dropped down to 6.8 and 6.3 received several units of blood transfusion. He was taking to the operating room emergently by surgery team and the bleeding was stopped and the wound was sutured again. After that patient was taken to the ICU 10/04 Patient awake alert He feels comfortable He still has expected tenderness at the surgical site Pain is treated with IV Tylenol per surgery team 10/05 Patient awake alert sitting up in bed He denies vomiting Abdominal pain is better Blood pressure 92/65 10/06 He still has some epigastric abdominal pain that comes and goes. He rated about 5-7/10. Yesterday was 10/10 which looks improving Surgical vertical wound is with a dressing in place Patient getting TPN. 10/07/2024 Patient is seen in follow-up today with general surgery following and patient is maintained on TPN. Sodium remains elevated at 149 and per pharmacy notes no further sodium noted in the TPN. Tube feeds remain on hold. Patient continues with J-tube to drainage noted to have some biliary drainage and patient remains NPO. Patient also being followed by pulmonary maintained on room air and is not reporting any shortness of breath. Patient currently afebrile although is having intermittent low-grade temps and maintained on IV Zosyn. Prognosis remains guarded. 10/08/2024 Patient seen in follow-up today with no significant improvements noted reporting continued nausea With vomiting today NG tube remains to drainage per general surgery and is continued on TPN. Sodium remains elevated at 149 and nephrology following as well adjusted IV hydration and will follow up on repeat labs. Patient did have a preliminary blood culture that was positive and infectious disease was consulted patient is maintained on Zosyn and repeat blood cultures pending. Concerns about possible PICC line contamination. Patient is afebrile with no reports of chest pain or shortness of breath. Encouraged to increase activity as tolerated although patient is mostly bedbound. Prognosis is guarded. 10/09/2024 Patient is seen in follow-up today with multiple consultations following. Patient is status post fascial dehiscence repair of the upper incision of the midline incision and also Rickie-en-Y gastrojejunostomy placement and tube was flushed and appears to be functioning with no further vomiting noted. Patient continues on TPN and PEG tube to drainage and will continue. White blood count is improving and hemoglobin remained stable with no bleeding noted. Infectious disease has been consulted maintained on Zosyn and awaiting cultures with initial preliminary blood culture showing molecular ID along with Alethea albicans. No vomiting noted today. Patient remains NPO. Nephrology following and has transitioned hydration with increased rate and sodium is improved at 141 today, potassium is 3.8, BUN is 34 with a creatinine of 0.79. Magnesium is 1.5 and will be replaced ALT/AST are mildly elevated and trending down. Patient is significantly weak and recommend PT/OT therapy daily and getting out of the bed more frequently. No bowel movements in the last few days and would recommend bowel regimen. 10/10/2024 Patient is seen in follow-up today reporting still feeling improved and is inquiring about when he can go home. Patient reported to surgery he had a bowel movement although unsure if this was true. Patient denies any further nausea or vomiting at this time and PEG tube remains to drainage. Patient is continued on TPN and will replace electrolytes per protocol. Nephrology following as well and sodium is improving and will continue current regimen. Per PT/OT therapy notes, patient would benefit from rehab for continued strength mobility due to significant weakness and prolonged hospitalization. 10/11/2024 Patient was seen and evaluated today is more awake sitting up in bed with multiple consultations following scheduled to undergo CT abdomen per ID recommendations for further evaluation of possible abdominal source. PICC line is being removed and will be sent for culture and will be replaced as patient is maintained on TPN. General surgery following as well and primary surgeon will be returning Monday and to further discuss today's CT findings along with repeat surgery in the near future. Patient is continued on n.p.o. diet for now and PEG tube is continued to drainage and noted to be bilious. Patient is significantly weak and is attempting to work with physical therapy and get up to the bedside. Patient has been incontinent of urine secondary to significant weakness. Recommend physical therapy daily for continued strength and mobility. Encourage sitting up in the chair more frequently. Case management/social work is following regarding inquiring if TPN is a covered benefit if required outpatient and also the possible need for ECF. Patient is afebrile and white count is normal and blood cultures initially showing Alethea and is maintained on antifungal awaiting repeat cultures. Review of systems: Constitutional: No reports of fatigue, fever, or chills Cardiovascular: No reports of chest pain or palpitations Respiratory: No reports of shortness of breath or cough GI: No reports of nausea, vomiting, or diarrhea today, patient reports having a bowel movement : No reports of dysuria or retention Neurovascular: reports of weakness but reports would like to go home All medications have been reviewed Physical exam: GENERAL: The patient is much more awake and alert today, alert and oriented x3, not in any acute distress. Appears older than stated age, well developed, ill- appearing, cachectic, significant muscle wasting noted. Thin built HEENT: Pupils are round and equally reacting to light. EOMI. No scleral icterus. No conjunctival pallor. Normocephalic, atraumatic. No pharyngeal erythema. No thyromegaly. CARDIOVASCULAR: S1 and S2 muffled, less tachycardic PULMONARY: Diminished breath sounds bilaterally otherwise chest is clear to auscultation, no wheezing , no crackles. ABDOMEN: Soft, nontender, nondistended, hypoactive bowel sounds. No palpable organomegaly. PEG tube is in place with no Abdominal tenderness or guarding MUSCULOSKELETAL: No joint swelling or deformity. EXTREMITIES: No cyanosis, clubbing, or pedal edema. NEUROLOGICAL: Gross neurological examination did not reveal any focal deficits. Diffusely weak SKIN: No rashes. no petechiae. 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 Epigastric pain and tenderness could be secondary to gastritis, status post Roex-en-Y gastrojejunostomy. S/p G-tube placement Severe calorie protein malnutrition with a BMI of 11.6 Sinus tachycardia versus SVT requiring metoprolol clonidine patch, better controlled Elevated troponin could be secondary to SVT related dehydration, evaluated by cardiology during last admission Hypertension Hyperlipidemia Anxiety/depression, not on active issue Distal esophagitis Hiatal hernia seen on recent EKG GI prophylaxis DVT prophylaxis Full code Plan: Patient is being closely monitored with multiple consultations following including infectious disease as patient had a blood culture positive from 10/06/2024. Repeat blood culture and pending at this time although preliminary has been negative thus far. Previous blood culture preliminary showing Alethea. Repeat CT abdomen was ordered and pending per infectious disease to evaluate for an abdominal source cultures. General surgery following as well. Patient remains n.p.o. maintained on TPN and tube feedings are also on hold per surgery. PEG tube remains to drainage. Social work is following regarding discharge planning as patient reports wants to go home although was evaluated by physical therapy recommending rehab and has placed referrals. Patient also noted to be on continued TPN and discussing the possibility of requiring it on discharge. Unsure if this is a covered benefit. Also looking into ECF for continued strength and mobility on discharge Pulmonary following patient is maintained on room air with no reports of worsening shortness of breath continue n.p.o. status until bowel activity per surgery. Patient with no further episodes of nausea or vomiting today. Follow-up on repeat labs and replace electrolytes per protocol Would recommend increased activity as tolerated and will recommend PT/OT therapy daily. PT/OT therapy recommending rehab and referrals were placed Overall prognosis is extremely guarded at this time The impression and plan of care has been dictated by Yanira Linda, Nurse Practitioner as directed. Dr. Bentley MD I have performed a history and examination and MDM of this patient, discussed the same with the dictator, and agree with the dictator's assessment and plan as written ,documented as a scribe. Based on total visit time, I have performed more than 50% of the visit. Objective - Vital Signs Vital signs: Vital Signs Temp 97.9 F 10/11/24 20:00 Pulse 68 10/11/24 20:00 Resp 20 10/11/24 20:00 BP 140/87 10/11/24 20:00 Pulse Ox 99 10/11/24 20:00 FiO2 Intake & Output 10/11/24 10/11/24 10/12/24 06:59 18:59 06:59 Intake Total 1047 Output Total 700 700 200 Balance -700 347 -200 Weight 34.5 kg Intake: Intake, IV Titration 1047 Amount Mvi, Adult No.4 with Vit 1047 K 10 ml Trace (Conc-1Ml/ Dose) 1 ml Calcium Gluconate 1 gm Potassium Acetate 46 meq Potassium Phosphate 9 mmol In Amino Acids 5 %/Dextrose 20 % 1,000 ml @ 80 mls/hr IV . BY DURATION [facility] Rx#: [id number] Output: Drainage 200 Abdomen 200 Urine 700 700 Other: Voiding Method Diaper Diaper External Catheter External Catheter - Labs CBC & Chem 7: 10/11/24 05:14 10/11/24 05:14 Labs: Abnormal Lab Results - Last 24 Hours (Table) 10/11/24 10/11/24 10/11/24 Range/Units 01:16 05:14 05:14 RBC 2.88 L (4.40-5.60) 10*6/uL Hgb 8.9 L (13.0-17.0) g/dL Hct 27.0 L (39.6-50.0) % RDW 15.8 H (11.5-14.5) % MPV 14.0 H (9.5-12.2) fL Immature Gran # 0.39 H (0.00-0.04) 10*3/uL Lymphocytes # 0.63 L (0.90-5.00) 10*3/uL Eosinophils # 0.37 H (0.04-0.35) 10*3/uL Chloride 108 H (98-107) mmol/L BUN 30 H (9-20) mg/dL Glucose 180 H (74-99) mg/dL POC Glucose (mg/dL) 182 H (70-110) mg/dL Calcium 8.2 L (8.4-10.2) mg/dL Triglycerides 235.00 H (0.00-149.00) mg/dL 10/11/24 10/11/24 10/11/24 Range/Units 05:54 12:10 18:16 RBC (4.40-5.60) 10*6/uL Hgb (13.0-17.0) g/dL Hct (39.6-50.0) % RDW (11.5-14.5) % MPV (9.5-12.2) fL Immature Gran # (0.00-0.04) 10*3/uL Lymphocytes # (0.90-5.00) 10*3/uL Eosinophils # (0.04-0.35) 10*3/uL Chloride (98-107) mmol/L BUN (9-20) mg/dL Glucose (74-99) mg/dL POC Glucose (mg/dL) 173 H 185 H 175 H (70-110) mg/dL Calcium (8.4-10.2) mg/dL Triglycerides (0.00-149.00) mg/dL Microbiology - Last 24 Hours (Table) 10/08/24 18:12 Blood Culture - Preliminary Blood
[2024-10-12 00:51] LABS: Glucose,Whole Blood 182 mg/dL (70-110)
[2024-10-12 05:22] LABS: Glucose,Whole Blood 194 mg/dL (70-110)
[2024-10-12 07:40] LABS: African American GFR (CKD) >90 (>60 ml/min/1.73 sqM); Anion Gap 8 mmol/L; Blood Urea Nitrogen 29 mg/dL (9-20); Calcium 8.4 mg/dL (8.4-10.2); Carbon Dioxide 23 mmol/L (22-30); Chloride 111 mmol/L (98-107); Glucose 215 mg/dL (74-99); Magnesium 1.7 mg/dL (1.6-2.3); Non-African American GFR(CKD) >90 (>60 ml/min/1.73 sqM); Phosphorus 3.2 mg/dL (2.5-4.5); Potassium 4.1 mmol/L (3.5-5.1); Sodium 142 mmol/L (137-145)
[2024-10-12 07:44] LABS: Glucose,Whole Blood 180 mg/dL (70-110)
--- NOTE | 2024-10-12 10:52 | P.PN ---
Subjective Progress Note Date: 10/12/24 Principal diagnosis: Intractable vomiting Patient feels well today. No new discomforts. No vomiting overnight. Gastric drainage light bilious in color Objective - Vital Signs Vital signs: Vital Signs Temp 97.8 F 10/12/24 07:41 Pulse 69 10/12/24 07:41 Resp 20 10/12/24 07:41 BP 142/50 10/12/24 07:41 Pulse Ox 100 10/12/24 07:41 FiO2 Intake & Output 10/11/24 10/12/24 10/12/24 18:59 06:59 18:59 Intake Total 2082 Output Total 700 800 Balance 1383 -800 Weight 34.5 kg 60.5 kg Intake: Intake, IV Titration 2082 Amount Calcium Gluconate 1 gm 1036 Potassium Acetate 46 meq Potassium Phosphate 9 mmol In Amino Acids 5 %/ Dextrose 20 % 1,000 ml @ 80 mls/hr IV .BY DURATION [facility] Rx#:[id number] Mvi, Adult No.4 with Vit 1047 K 10 ml Trace (Conc-1Ml/ Dose) 1 ml Calcium Gluconate 1 gm Potassium Acetate 46 meq Potassium Phosphate 9 mmol In Amino Acids 5 %/Dextrose 20 % 1,000 ml @ 80 mls/hr IV . BY DURATION [facility] Rx#: [id number] Output: Drainage 200 Abdomen 200 Urine 700 600 Other: Voiding Method Diaper Diaper Diaper External Catheter External Catheter External Catheter - Exam Abdomen: Soft, nondistended, mild tenderness, PEG tube in place, incision without drainage or erythema - Labs CBC & Chem 7: 10/11/24 05:14 10/12/24 07:00 Labs: Abnormal Lab Results - Last 24 Hours (Table) 10/11/24 10/11/24 10/12/24 Range/Units 12:10 18:16 00:47 Chloride (98-107) mmol/L BUN (9-20) mg/dL Creatinine (0.66-1.25) mg/dL Glucose (74-99) mg/dL POC Glucose (mg/dL) 185 H 175 H 182 H (70-110) mg/dL 10/12/24 10/12/24 10/12/24 Range/Units 05:10 07:00 07:42 Chloride 111 H (98-107) mmol/L BUN 29 H (9-20) mg/dL Creatinine 0.63 L (0.66-1.25) mg/dL Glucose 215 H (74-99) mg/dL POC Glucose (mg/dL) 194 H 180 H (70-110) mg/dL Microbiology - Last 24 Hours (Table) 10/11/24 10:04 Catheter Tip Culture - Preliminary Picc Line 10/08/24 18:12 Blood Culture - Preliminary Blood Assessment and Plan (1) Intractable nausea and vomiting Narrative/Plan: 68-year-old male doing well today. Continue TPN for nutritional support. Continue PEG tube to drainage. CAT scan findings noted. No visible signs of infection externally. Likely related to the recent surgical intervention and repair of his dehiscence. Will discuss with Dr. Pavon regarding possible PEJ placement through PEG tube this week. Current Visit: Yes Status: Acute Code(s): R11.2 - NAUSEA WITH VOMITING, UNSPECIFIED SNOMED Code(s): 277395332
[2024-10-12 12:09] LABS: Glucose,Whole Blood 211 mg/dL (70-110)
[2024-10-12] MEDS: MAGNESIUM SULFATE-D5W PMX 1 GM in DEXTROSE/WATER 1 100ML.BAG IVPB ONE (12:49)
--- NOTE | 2024-10-12 13:18 | P.PN ---
Subjective Patient is seen for follow-up for hypernatremia. He is maintained on TPN. Status post repair of fascial dehiscence on 10/03/2024. No significant complaints. Objective - Vital Signs Vital signs: Vital Signs Temp 97.8 F 10/12/24 13:10 Pulse 78 10/12/24 13:10 Resp 14 10/12/24 13:10 BP 133/88 10/12/24 13:10 Pulse Ox 100 10/12/24 13:10 FiO2 Intake & Output 10/11/24 10/12/24 10/12/24 18:59 06:59 18:59 Intake Total 2082 Output Total 700 800 Balance 1383 -800 Weight 34.5 kg 60.5 kg Intake: Intake, IV Titration 2082 Amount Calcium Gluconate 1 gm 1036 Potassium Acetate 46 meq Potassium Phosphate 9 mmol In Amino Acids 5 %/ Dextrose 20 % 1,000 ml @ 80 mls/hr IV .BY DURATION [facility] Rx#:[id number] Mvi, Adult No.4 with Vit 1047 K 10 ml Trace (Conc-1Ml/ Dose) 1 ml Calcium Gluconate 1 gm Potassium Acetate 46 meq Potassium Phosphate 9 mmol In Amino Acids 5 %/Dextrose 20 % 1,000 ml @ 80 mls/hr IV . BY DURATION [facility] Rx#: [id number] Output: Drainage 200 Abdomen 200 Urine 700 600 Other: Voiding Method Diaper Diaper Diaper External Catheter External Catheter External Catheter - Exam Patient is sleeping but arousable, comfortable, no acute distress Examination of the heart S1 and S2 Examination of the lungs bilateral breath sounds are heard Abdomen is soft, dressed Examination of lower extremities shows trace edema MANAGEMENT TECH exam grossly intact patient is moving all 4 extremities. - Labs CBC & Chem 7: 10/11/24 05:14 10/12/24 07:00 Labs: Abnormal Lab Results - Last 24 Hours (Table) 10/11/24 10/12/24 10/12/24 Range/Units 18:16 00:47 05:10 Chloride (98-107) mmol/L BUN (9-20) mg/dL Creatinine (0.66-1.25) mg/dL Glucose (74-99) mg/dL POC Glucose (mg/dL) 175 H 182 H 194 H (70-110) mg/dL 10/12/24 10/12/24 10/12/24 Range/Units 07:00 07:42 12:08 Chloride 111 H (98-107) mmol/L BUN 29 H (9-20) mg/dL Creatinine 0.63 L (0.66-1.25) mg/dL Glucose 215 H (74-99) mg/dL POC Glucose (mg/dL) 180 H 211 H (70-110) mg/dL Microbiology - Last 24 Hours (Table) 10/11/24 10:04 Catheter Tip Culture - Preliminary Picc Line 10/08/24 18:12 Blood Culture - Preliminary Blood Assessment and Plan Assessment: 1. Hypernatremia from lack of oral water intake. Sodium level 142 today. 2. SMA syndrome. Surgery following. 3. Status post J-tube placement September 25, 2024. 4. Hypokalemia from poor intake. Being replaced. 5. Fascial dehiscence with bleeding status post repair on 10/03/2024 6. Alethea bacteremia Plan: Repeat labs in a.m. Continue current TPN
--- NOTE | 2024-10-12 15:11 | P.PN ---
Subjective Progress Note Date: 10/12/24 This is a pleasant 68 years old male who was recently discharged from this facility about 4 days ago for nausea vomiting and malnutrition status post PEG tube placement by surgery team. Once he been discharged he started having recurrent nausea vomiting again, he vomited 6 times since yesterday with no blood. Associated with epigastric pain and tenderness His troponin was elevated but EKG showing SVT. He has been evaluated by carpet binder as well during last admission for elevated troponin. Currently denies chest pain or dyspnea. No specific urinary symptoms. No headache dizziness weakness or numbness He is pain mainly in the epigastric area about 9/10 felt like squeezing nonradiating with no precipitating or relieving factors. He states that the pain is similar to last time. He has no bowel movement. He is using the PEG tube at home. He got Zofran 4 mg and is requesting more medicine He is hemodynamically stable and afebrile He has unremarkable CBC, BMP, LFT. WBC is mildly elevated at 10.4 at 11. Lactic acid 4.6 came back to normal at 1.7. Troponin is elevated 0.065. KUB showing nonspecific gas bowel pattern. EKG showed SVT with a rate of [address] depression in V3-V5 Patient lying in bed with no dyspnea or chest pain He is vomiting of blood today. He still has nausea vomiting. He was on Zofran 8 mg we will going to add Reglan IV 5 and then 10 mg. hemoglobin stable at 12.4 with slight improvement. Vital stable. He is not on any blood thinners or aspirin. His on Protonix IV twice daily added today Also we added D5 normal saline Discussed the case with surgery team. CT of the abdomen pelvis with IV contrast is requested. Currently patient denies any abdominal pain or epigastric tenderness. / No vomiting today, looks tired No abdominal pain or tenderness PEG tube is in place and feeding tube on hold He still getting IV fluids and Zosyn Plan for EGD today with surgery team given his hematemesis yesterday. Hemoglobin was stable yesterday at 11.3 Monitor hemoglobin Continue with Protonix He is getting Reglan [id number] which prevent him from vomiting 09/25 i came to see the pt twice and he was no in his room 09/26 Patient seen and examined at bedside. He is awake and alert ,he is status post Roex-en-Y gastrojejunostomy. Today postop day #1 He still complaining from epigastric pain and mild tenderness with PEG tube placement to gravity. Patient is not getting tube feeding Patient is getting D5W at 100 mL/h, sodium improved 150 down to 146 today Also patient is getting Zosyn WBC 16.1, hemoglobin 8.4 and sodium 146 Is getting Reglan 5 mg as needed will added 10 mg 09/27 Patient remains with GI symptoms. PEG tube to gravity and patient received TPN. Still with nausea and some abdominal/epigastric pain and tenderness although partially improved. No other new complaint. Labs look stable or slightly improving with sodium 147, hemoglobin 13 and WBC down to 11.3 Nephrology consult was obtained Patient started on normal saline at 100 mL/h and D5W was stopped 09/28 Patient states he is the same over the last 2 days he still have some epigastric pain and tenderness which looks the same also he has some nausea and vomiting although he was taking Reglan. Also patient WBC went up to 13.3. Hemoglobin down to 9.3 Sodium 148 potassium 3.1 Replace potassium per protocol Started on D5W at give Ativan x 1 to help with anxiety and with nausea vomiting 09/29 Patient developed significant tachycardia last night and this morning with heart rate going up to 150 and 160/min. EKG showing sinus tachycardia. Heart rate improved down to 100 and blood pressure stable with systolic 120-150 It is thought multifactorial secondary to anxiety dehydration infection electrolyte abnormalities and pain. D-dimer is ordered but the suspicion for PE is low Patient with no chest pain or dyspnea, actually patient this is the first time he told me he feels better since I saw him from admission. He was sitting in chair with slight weakness. He still getting TPN Zosyn. He getting D5W at 50 mL/h but sodium increased to 152 so increase the dose to 12 5 mL/h Dilaudid added IV Lopressor 5 mg every 8 hours and clonidine patch 0.1 mg Also low potassium and magnesium being replaced. 09/30 Patient is lethargic today with some nausea. He denies epigastric abdominal pain. He is still tachycardic with heart around 120 WBC is 14.5, hemoglobin 9.6 and He remains on D5W at 125 Eliquis dose lowered to 2.5 10/01 Patient today feels improved and better he denies chest pain or dyspnea no epigastric pain or tenderness significant than the other days. PEG tube still in place but not working. Still getting TPN He still tachycardic and blood pressure still slightly on the high side, he got 3 doses of Lopressor 5 mg IV yesterday, we will going to increase his clonidine patch 0.2 up to 0.3. He has CTA of the chest done yesterday for suspicion of PE, no pulm embolism found however there is lung nodule 1.1 cm that he needs follow-up in 3 months for report also there is bilateral groundglass opacities and nodular lesions suspicious for pneumonia versus aspiration pneumonia versus cryptogenic organizing pneumonia. Also there is retained material or secretions or food in the lower esophagus which cause more with aspiration pneumonitis. Patient remains on IV Protonix for esophagitis Therefore patient remains on IV Zosyn. Low potassium but replace per protocol today The other thing his hypernatremia significantly improved 122 yesterday and 124 today while he is on D5 W at 75 mL today compared to 125 yesterday Check labs in the morning 10/02 Today patient feels tired weak and sweaty Blood pressure is low normal, became slightly tachycardic 115. His heart rate is getting controlled with the clonidine patch 0.3 mg and now requiring only once daily dose of IV Lopressor 5 mg over the last 2 days. His albumin is 2.0. His sodium 138 he remains on D5W. He is still getting TPN Will give IV albumin 25 % x 1 Hemoglobin 9.1 10/03 Patient developed severe bleeding from his epigastric wound and his abdominal wall with hemoglobin dropped down to 6.8 and 6.3 received several units of blood transfusion. He was taking to the operating room emergently by surgery team and the bleeding was stopped and the wound was sutured again. After that patient wa s taken to the ICU 10/04 Patient awake alert He feels comfortable He still has expected tenderness at the surgical site Pain is treated with IV Tylenol per surgery team 10/05 Patient awake alert sitting up in bed He denies vomiting Abdominal pain is better Blood pressure 92/65 10/06 He still has some epigastric abdominal pain that comes and goes. He rated about 5-7/10. Yesterday was 10/10 which looks improving Surgical vertical wound is with a dressing in place Patient getting TPN. 10/07/2024 Patient is seen in follow-up today with general surgery following and patient is maintained on TPN. Sodium remains elevated at 149 and per pharmacy notes no further sodium noted in the TPN. Tube feeds remain on hold. Patient continues with J-tube to drainage noted to have some biliary drainage and patient remains NPO. Patient also being followed by pulmonary maintained on room air and is not reporting any shortness of breath. Patient currently afebrile although is having intermittent low-grade temps and maintained on IV Zosyn. Prognosis remains guarded. 10/08/2024 Patient seen in follow-up today with no significant improvements noted reporting continued nausea With vomiting today NG tube remains to drainage per general surgery and is continued on TPN. Sodium remains elevated at 149 and nephrology following as well adjusted IV hydration and will follow up on repeat labs. Patient did have a preliminary blood culture that was positive and infectious disease was consulted patient is maintained on Zosyn and repeat blood cultures pending. Concerns about possible PICC line contamination. Patient is afebrile with no reports of chest pain or shortness of breath. Encouraged to increase activity as tolerated although patient is mostly bedbound. Prognosis is guarded. 10/09/2024 Patient is seen in follow-up today with multiple consultations following. Patient is status post fascial dehiscence repair of the upper incision of the midline incision and also Rickie-en-Y gastrojejunostomy placement and tube was flushed and appears to be functioning with no further vomiting noted. Patient continues on TPN and PEG tube to drainage and will continue. White blood count is improving and hemoglobin remained stable with no bleeding noted. Infectious disease has been consulted maintained on Zosyn and awaiting cultures with initial preliminary blood culture showing molecular ID along with Alethea albicans. No vomiting noted today. Patient remains NPO. Nephrology following and has transitioned hydration with increased rate and sodium is improved at 141 today, potassium is 3.8, BUN is 34 with a creatinine of 0.79. Magnesium is 1.5 and will be replaced ALT/AST are mildly elevated and trending down. Patient is significantly weak and recommend PT/OT therapy daily and getting out of the bed more frequently. No bowel movements in the last few days and would recommend bowel regimen. 10/10/2024 Patient is seen in follow-up today reporting still feeling improved and is inquiring about when he can go home. Patient reported to surgery he had a bowel movement although unsure if this was true. Patient denies any further nausea or vomiting at this time and PEG tube remains to drainage. Patient is continued on TPN and will replace electrolytes per protocol. Nephrology following as well and sodium is improving and will continue current regimen. Per PT/OT therapy notes, patient would benefit from rehab for continued strength mobility due to significant weakness and prolonged hospitalization. 10/11/2024 Patient was seen and evaluated today is more awake sitting up in bed with multiple consultations following scheduled to undergo CT abdomen per ID recommendations for further evaluation of possible abdominal source. PICC line is being removed and will be sent for culture and will be replaced as patient is maintained on TPN. General surgery following as well and primary surgeon will be returning Monday and to further discuss today's CT findings along with repeat surgery in the near future. Patient is continued on n.p.o. diet for now and PEG tube is continued to drainage and noted to be bilious. Patient is significantly weak and is attempting to work with physical therapy and get up to the bedside. Patient has been incontinent of urine secondary to significant weakness. Recommend physical therapy daily for continued strength and mobility. Encourage sitting up in the chair more frequently. Case management/social work is following regarding inquiring if TPN is a covered benefit if required outpatient and also the possible need for ECF. Patient is afebrile and white count is normal and blood cultures initially showing Alethea and is maintained on a ntifungal awaiting repeat cultures. 10/12/2024 Patient evaluated in follow-up resting in bed comfortably. He has no acute complaints at this time. Abdominal pelvis CT was completed which reveals a postoperative seroma or developing abscess. There is a interval postoperative change involving the anterior abdominal wall with a 2.1 x 2.6 cm air-fluid collection and additional small loculated fluid collections as described above. A patchy consolidative opacity in the partially visualized lower lungs and trace effusion suggestive of multifocal pneumonia in the appropriate clinical setting. Mild circumferential urinary bladder wall thickening recommend correlation with urinalysis for cystitis. A nonspecific small volume free fluid in the pelvis. BUN of 29 creatinine of 0.63, magnesium 1.7. Review of systems: Constitutional: No reports of fatigue, fever, or chills Cardiovascular: No reports of chest pain or palpitations Respiratory: No reports of shortness of breath or cough GI: No reports of nausea, vomiting, or diarrhea today, patient reports having a bowel movement : No reports of dysuria or retention Neurovascular: reports of weakness but reports would like to go home All medications have been reviewed Physical exam: GENERAL: The patient is much more awake and alert today, alert and oriented x3, not in any acute distress. Appears older than stated age, well developed, ill- appearing, cachectic, significant muscle wasting noted. Thin built HEENT: Pupils are round and equally reacting to light. EOMI. No scleral icterus. No conjunctival pallor. Normocephalic, atraumatic. No pharyngeal erythema. No thyromegaly. CARDIOVASCULAR: S1 and S2 muffled, less tachycardic PULMONARY: Diminished breath sounds bilaterally otherwise chest is clear to auscultation, no wheezing , no crackles. ABDOMEN: Soft, nontender, nondistended, hypoactive bowel sounds. No palpable or ganomegaly. PEG tube is in place with no Abdominal tenderness or guarding MUSCULOSKELETAL: No joint swelling or deformity. EXTREMITIES: No cyanosis, clubbing, or pedal edema. NEUROLOGICAL: Gross neurological examination did not reveal any focal deficits. Diffusely weak SKIN: No rashes. no petechiae. 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 Hypovolemic shock requiring multiple blood transfusions secondary to Fascial wound dehiscence on 10/03 status post emergent surgical repair and close ICU monitoring Epigastric pain and tenderness could be secondary to gastritis, status post Roex-en-Y gastrojejunostomy. S/p G-tube placement Severe calorie protein malnutrition with a BMI of 11.6 Sinus tachycardia versus SVT requiring metoprolol clonidine patch, better controlled Elevated troponin could be secondary to SVT related dehydration, evaluated by cardiology during last admission Hypertension Hyperlipidemia Anxiety/depression, not on active issue Distal esophagitis Hiatal hernia seen on recent EKG GI prophylaxis DVT prophylaxis Full code Plan: Patient is being closely monitored with multiple consultations following including infectious disease as patient had a blood culture positive from 10/06/2024. Repeat blood culture and pending at this time although preliminary has been negative thus far. Previous blood culture preliminary showing Alethea. Repeat CT abdomen was ordered and pending per infectious disease to evaluate for an abdominal source cultures. General surgery following as well. Patient remains n.p.o. maintained on TPN and tube feedings are also on hold per surgery. PEG tube remains to drainage. Social work is following regarding discharge planning as patient reports wants to go home although was evaluated by physical therapy recommending rehab and has placed referrals. Patient also noted to be on continued TPN and discussing the possibility of requiring it on discharge. Unsure if this is a covered benefit. Also looking into ECF for continued strength and mobility on discharge Pulmonary following patient is maintained on room air with no reports of worsening shortness of breath continue n.p.o. status until bowel activity per surgery. Patient with no further episodes of nausea or vomiting today. Follow-up on repeat labs and replace electrolytes per protocol Would recommend increased activity as tolerated and will recommend PT/OT therapy daily. PT/OT therapy recommending rehab and referrals were placed Overall prognosis is extremely guarded at this time The impression and plan of care has been dictated by Desiree Clarke Nurse Practitioner as directed. Dr. Cyndi MD I have performed a history and physical examination and medical decision making of this patient, discussed the same with the dictator, and agree with the dictators assessment and plan as written, documented as a scribe. Based on total visit time, I have performed more than 50% of this visit. Objective - Vital Signs Vital signs: Vital Signs Temp 97.8 F 10/12/24 07:41 Pulse 69 10/12/24 07:41 Resp 20 10/12/24 07:41 BP 142/50 10/12/24 07:41 Pulse Ox 100 10/12/24 07:41 FiO2 Intake & Output 10/11/24 10/12/24 10/12/24 18:59 06:59 18:59 Intake Total 2082 Output Total 700 800 Balance 1383 -800 Weight 34.5 kg 60.5 kg Intake: Intake, IV Titration 2082 Amount Calcium Gluconate 1 gm 1036 Potassium Acetate 46 meq Potassium Phosphate 9 mmol In Amino Acids 5 %/ Dextrose 20 % 1,000 ml @ 80 mls/hr IV .BY DURATION [facility] Rx#:[id number] Mvi, Adult No.4 with Vit 1047 K 10 ml Trace (Conc-1Ml/ Dose) 1 ml Calcium Gluconate 1 gm Potassium Acetate 46 meq Potassium Phosphate 9 mmol In Amino Acids 5 %/Dextrose 20 % 1,000 ml @ 80 mls/hr IV . BY DURATION [facility] Rx#: [id number] Output: Drainage 200 Abdomen 200 Urine 700 600 Other: Voiding Method Diaper Diaper Diaper External Catheter External Catheter External Catheter - Labs CBC & Chem 7: 10/11/24 05:14 10/12/24 07:00 Labs: Abnormal Lab Results - Last 24 Hours (Table) 10/11/24 10/12/24 10/12/24 Range/Units 18:16 00:47 05:10 Chloride (98-107) mmol/L BUN (9-20) mg/dL Creatinine (0.66-1.25) mg/dL Glucose (74-99) mg/dL POC Glucose (mg/dL) 175 H 182 H 194 H (70-110) mg/dL 10/12/24 10/12/24 10/12/24 Range/Units 07:00 07:42 12:08 Chloride 111 H (98-107) mmol/L BUN 29 H (9-20) mg/dL Creatinine 0.63 L (0.66-1.25) mg/dL Glucose 215 H (74-99) mg/dL POC Glucose (mg/dL) 180 H 211 H (70-110) mg/dL Microbiology - Last 24 Hours (Table) 10/11/24 10:04 Catheter Tip Culture - Preliminary Picc Line 10/08/24 18:12 Blood Culture - Preliminary Blood Assessment and Plan Time with Patient: Less than 30
[2024-10-12 17:47] LABS: Basophils # (M) 0 X 10*3/uL (0.00-0.10); Eosinophils # (M) 0.74 X 10*3/uL (0.04-0.35); HCT 28.1 % (39.6-50.0); HGB 8.9 g/dL (13.0-17.0); Lymphocytes # (M) 0.63 X 10*3/uL (0.90-5.00); MCH 29.7 pg (27.0-32.0); MCHC 31.7 g/dL (32.0-37.0); MCV 93.7 FL (80.0-97.0); Metamyelocytes % 1 % (0-0); Monocytes # (M) 0.21 X 10*3/uL (0.20-1.00); NRBC Per 100 WBC 0 X 10*3/uL (0.00-0.01); Neutrophils # (M) 8.86 X 10*3/uL (1.80-7.70); Neutrophils % (M) 84 %; Platelet Count 323 X 10*3/uL (140-440); RDW 15.7 % (11.5-14.5); WBC 10.55 X 10*3/uL (4.50-10.00)
[2024-10-12 18:14] LABS: Glucose,Whole Blood 192 mg/dL (70-110)
[2024-10-12] MEDS: 1: MVI, ADULT NO.4 WITH VIT K 10 ML, TRACE (CONC-1ML/DOSE) 1 ML, CALCIUM GLUCONATE 1 GM, IV SCH (23:02)
[2024-10-13 00:12] LABS: Glucose,Whole Blood 185 mg/dL (70-110)
[2024-10-13 05:21] LABS: African American GFR (CKD) >90 (>60 ml/min/1.73 sqM); Anion Gap 8 mmol/L; Blood Urea Nitrogen 32 mg/dL (9-20); Calcium 8.4 mg/dL (8.4-10.2); Carbon Dioxide 22 mmol/L (22-30); Chloride 113 mmol/L (98-107); Glucose 211 mg/dL (74-99); Magnesium 1.9 mg/dL (1.6-2.3); Non-African American GFR(CKD) >90 (>60 ml/min/1.73 sqM); Phosphorus 3.6 mg/dL (2.5-4.5); Sodium 143 mmol/L (137-145)
[2024-10-13 05:34] LABS: Glucose,Whole Blood 201 mg/dL (70-110)
--- NOTE | 2024-10-13 10:41 | P.PN ---
Subjective Patient is seen for follow-up for hypernatremia. He is maintained on TPN. Status post repair of fascial dehiscence on 10/03/2024. No significant complaints. Sodium 143 today Objective - Vital Signs Vital signs: Vital Signs Temp 97.7 F 10/13/24 07:02 Pulse 86 10/13/24 07:02 Resp 22 10/13/24 07:02 BP 143/89 10/13/24 07:02 Pulse Ox 99 10/13/24 07:02 FiO2 Intake & Output 10/12/24 10/13/24 10/13/24 18:59 06:59 18:59 Output Total 900 Balance -900 Weight 58.5 kg Output: Urine 900 Other: Voiding Method Diaper Diaper Diaper External Catheter External Catheter External Catheter # Voids 3 # Bowel Movements 1 - Exam Patient is awake, comfortable, no acute distress Examination of the heart S1 and S2 Examination of the lungs bilateral breath sounds are heard Abdomen is soft, dressed Examination of lower extremities shows trace edema [employer] exam grossly intact patient is moving all 4 extremities. - Labs CBC & Chem 7: 10/12/24 07:00 10/13/24 04:57 Labs: Abnormal Lab Results - Last 24 Hours (Table) 10/12/24 10/12/24 10/12/24 Range/Units 07:00 12:08 18:12 WBC 10.55 H (4.50-10.00) X 10*3/uL RBC 3.00 L (4.40-5.60) X 10*6/uL Hgb 8.9 L (13.0-17.0) g/dL Hct 28.1 L (39.6-50.0) % MCHC 31.7 L (32.0-37.0) g/dL RDW 15.7 H (11.5-14.5) % MPV 14.0 H (9.5-12.2) FL Neutrophils # (Manual) 8.86 H (1.80-7.70) X 10*3/uL Lymphocytes # (Manual) 0.63 L (0.90-5.00) X 10*3/uL Eosinophils # (Manual) 0.74 H (0.04-0.35) X 10*3/uL Chloride (98-107) mmol/L BUN (9-20) mg/dL Creatinine (0.66-1.25) mg/dL Glucose (74-99) mg/dL POC Glucose (mg/dL) 211 H 192 H (70-110) mg/dL 10/13/24 10/13/24 10/13/24 Range/Units 00:09 04:57 05:26 WBC (4.50-10.00) X 10*3/uL RBC (4.40-5.60) X 10*6/uL Hgb (13.0-17.0) g/dL Hct (39.6-50.0) % MCHC (32.0-37.0) g/dL RDW (11.5-14.5) % MPV (9.5-12.2) FL Neutrophils # (Manual) (1.80-7.70) X 10*3/uL Lymphocytes # (Manual) (0.90-5.00) X 10*3/uL Eosinophils # (Manual) (0.04-0.35) X 10*3/uL Chloride 113 H (98-107) mmol/L BUN 32 H (9-20) mg/dL Creatinine 0.57 L (0.66-1.25) mg/dL Glucose 211 H (74-99) mg/dL POC Glucose (mg/dL) 185 H 201 H (70-110) mg/dL Microbiology - Last 24 Hours (Table) 10/11/24 10:04 Catheter Tip Culture - Preliminary Picc Line Alethea albicans Assessment and Plan Assessment: 1. Hypernatremia from lack of oral water intake. Sodium level 143 today. 2. SMA syndrome. Surgery following. 3. Status post J-tube placement September 25, 2024. 4. Hypokalemia from poor intake. Being replaced. 5. Fascial dehiscence with bleeding status post repair on 10/03/2024 6. Alethea bacteremia Plan: Repeat labs in a.m. Continue current TPN
[2024-10-13 11:25] LABS: Basophils # (A) 0.11 10*3/uL (0.00-0.10); Basophils % (A) 0.7 %; Eosinophils # (A) 0.56 10*3/uL (0.04-0.35); Eosinophils % (A) 3.8 %; HCT 30.4 % (39.6-50.0); HGB 9.9 g/dL (13.0-17.0); Lymphocytes # (A) 1.21 10*3/uL (0.90-5.00); Lymphocytes % (A) 8.1 %; MCH 30.7 pg (27.0-32.0); MCHC 32.6 g/dL (32.0-37.0); MCV 94.1 fL (80.0-97.0); Mean Platelet Volume 12.5 fL (9.5-12.2); Monocytes # (A) 0.73 10*3/uL (0.20-1.00); Monocytes % (A) 4.9 %; Neutrophils # (A) 11.32 10*3/uL (1.80-7.70); Platelet Count 371 10*3/uL (140-440); RBC 3.23 10*6/uL (4.40-5.60); RDW 15.8 % (11.5-14.5)
[2024-10-13] MEDS: 1: MVI, ADULT NO.4 WITH VIT K 10 ML, TRACE (CONC-1ML/DOSE) 1 ML, CALCIUM GLUCONATE 1 GM, IV SCH (11:37)
--- NOTE | 2024-10-13 11:57 | P.PN ---
Subjective Progress Note Date: 10/13/24 Principal diagnosis: Intractable vomiting Patient says he feels well today. No nausea or vomiting. Gastrostomy tube with light bilious output. Objective - Vital Signs Vital signs: Vital Signs Temp 97.7 F 10/13/24 07:02 Pulse 86 10/13/24 07:02 Resp 22 10/13/24 07:02 BP 143/89 10/13/24 07:02 Pulse Ox 99 10/13/24 07:02 FiO2 Intake & Output 10/12/24 10/13/24 10/13/24 18:59 06:59 18:59 Output Total 900 Balance -900 Weight 58.5 kg Output: Urine 900 Other: Voiding Method Diaper Diaper Diaper External Catheter External Catheter External Catheter # Voids 3 # Bowel Movements 1 - Exam Abdomen: Soft, nondistended, mild tenderness, PEG tube in place, incision without drainage or erythema - Labs CBC & Chem 7: 10/13/24 09:55 10/13/24 04:57 Labs: Abnormal Lab Results - Last 24 Hours (Table) 10/12/24 10/12/24 10/12/24 Range/Units 07:00 12:08 18:12 WBC 10.55 H (4.50-10.00) X 10*3/uL RBC 3.00 L (4.40-5.60) X 10*6/uL Hgb 8.9 L (13.0-17.0) g/dL Hct 28.1 L (39.6-50.0) % MCHC 31.7 L (32.0-37.0) g/dL RDW 15.7 H (11.5-14.5) % MPV 14.0 H (9.5-12.2) FL Immature Gran # (0.00-0.04) 10*3/uL Neutrophils # (Manual) 8.86 H (1.80-7.70) X 10*3/uL Lymphocytes # (Manual) 0.63 L (0.90-5.00) X 10*3/uL Eosinophils # (Manual) 0.74 H (0.04-0.35) X 10*3/uL Chloride (98-107) mmol/L BUN (9-20) mg/dL Creatinine (0.66-1.25) mg/dL Glucose (74-99) mg/dL POC Glucose (mg/dL) 211 H 192 H (70-110) mg/dL 10/13/24 10/13/24 10/13/24 Range/Units 00:09 04:57 05:26 WBC (4.50-10.00) X 10*3/uL RBC (4.40-5.60) X 10*6/uL Hgb (13.0-17.0) g/dL Hct (39.6-50.0) % MCHC (32.0-37.0) g/dL RDW (11.5-14.5) % MPV (9.5-12.2) FL Immature Gran # (0.00-0.04) 10*3/uL Neutrophils # (Manual) (1.80-7.70) X 10*3/uL Lymphocytes # (Manual) (0.90-5.00) X 10*3/uL Eosinophils # (Manual) (0.04-0.35) X 10*3/uL Chloride 113 H (98-107) mmol/L BUN 32 H (9-20) mg/dL Creatinine 0.57 L (0.66-1.25) mg/dL Glucose 211 H (74-99) mg/dL POC Glucose (mg/dL) 185 H 201 H (70-110) mg/dL 10/13/24 Range/Units 09:55 WBC 14.90 H (4.50-10.00) X 10*3/uL RBC 3.23 L (4.40-5.60) X 10*6/uL Hgb 9.9 L (13.0-17.0) g/dL Hct 30.4 L (39.6-50.0) % MCHC (32.0-37.0) g/dL RDW 15.8 H (11.5-14.5) % MPV 12.5 H (9.5-12.2) FL Immature Gran # 0.97 H (0.00-0.04) 10*3/uL Neutrophils # (Manual) (1.80-7.70) X 10*3/uL Lymphocytes # (Manual) (0.90-5.00) X 10*3/uL Eosinophils # (Manual) (0.04-0.35) X 10*3/uL Chloride (98-107) mmol/L BUN (9-20) mg/dL Creatinine (0.66-1.25) mg/dL Glucose (74-99) mg/dL POC Glucose (mg/dL) (70-110) mg/dL Microbiology - Last 24 Hours (Table) 10/11/24 10:04 Catheter Tip Culture - Preliminary Picc Line Alethea albicans Assessment and Plan (1) Intractable nausea and vomiting Narrative/Plan: Patient slowly improving. Culture from catheter tip noted. Continue TPN. Possible PEJ tube this week. Current Visit: Yes Status: Acute Code(s): R11.2 - NAUSEA WITH VOMITING, UNSPECIFIED SNOMED Code(s): 858542001
[2024-10-13 12:08] LABS: Glucose,Whole Blood 126 mg/dL (70-110)
--- NOTE | 2024-10-13 12:44 | P.PN ---
Subjective Progress Note Date: 10/12/24 Principal diagnosis: Reason for follow-up is candidemia Patient is a 68-year-old male with multiple comorbidities and did have a PEG tube placement on 09/02/2024 subsequent admission to the hospital for intractable nausea and vomiting patient did have a Rickie-en-Y gastrojejunostomy and on 10/03/2024 and subsequent fascial dehiscence that was repaired he did spike a fever and blood cultures came back positive with Alethea prompted this consultation. On today's evaluation that is 10/12/2024, Patient is afebrile this morning patient denies having any chest pain shortness of breath or cough, the patient is currently on room air, patient denies any abdominal pain no diarrhea no nausea no vomiting. Patient white count is 10.55 creatinine 0.63 catheter tip with Alethea albicans Objective - Vital Signs Vital signs: Vital Signs Temp 97.8 F 10/12/24 07:41 Pulse 69 10/12/24 07:41 Resp 20 10/12/24 07:41 BP 142/50 10/12/24 07:41 Pulse Ox 100 10/12/24 07:41 FiO2 Intake & Output 10/11/24 10/12/24 10/12/24 18:59 06:59 18:59 Intake Total 2082 Output Total 700 800 Balance 1383 -800 Weight 34.5 kg 60.5 kg Intake: Intake, IV Titration 2082 Amount Calcium Gluconate 1 gm 1036 Potassium Acetate 46 meq Potassium Phosphate 9 mmol In Amino Acids 5 %/ Dextrose 20 % 1,000 ml @ 80 mls/hr IV .BY DURATION GIRISH Rx#:[id number] Mvi, Adult No.4 with Vit 1047 K 10 ml Trace (Conc-1Ml/ Dose) 1 ml Calcium Gluconate 1 gm Potassium Acetate 46 meq Potassium Phosphate 9 mmol In Amino Acids 5 %/Dextrose 20 % 1,000 ml @ 80 mls/hr IV . BY DURATION GIRISH Rx#: [id number] Output: Drainage 200 Abdomen 200 Urine 700 600 Other: Voiding Method Diaper Diaper Diaper External Catheter External Catheter External Catheter - Exam GENERAL DESCRIPTION: An elderly male lying in bed in no distress RESPIRATORY SYSTEM: Unlabored breathing , decreased breath sounds at bases HEART: S1 S2 regular rate and rhythm , ABDOMEN: Soft , no tenderness EXTREMITIES: No edema feet - Labs CBC & Chem 7: 10/13/24 09:55 10/13/24 04:57 Labs: Abnormal Lab Results - Last 24 Hours (Table) 10/11/24 10/12/24 10/12/24 Range/Units 18:16 00:47 05:10 Chloride (98-107) mmol/L BUN (9-20) mg/dL Creatinine (0.66-1.25) mg/dL Glucose (74-99) mg/dL POC Glucose (mg/dL) 175 H 182 H 194 H (70-110) mg/dL 10/12/24 10/12/24 10/12/24 Range/Units 07:00 07:42 12:08 Chloride 111 H (98-107) mmol/L BUN 29 H (9-20) mg/dL Creatinine 0.63 L (0.66-1.25) mg/dL Glucose 215 H (74-99) mg/dL POC Glucose (mg/dL) 180 H 211 H (70-110) mg/dL Microbiology - Last 24 Hours (Table) 10/11/24 10:04 Catheter Tip Culture - Preliminary Picc Line 10/08/24 18:12 Blood Culture - Preliminary Blood Assessment and Plan (1) Sepsis Current Visit: Yes Status: Acute Code(s): A41.9 - SEPSIS, UNSPECIFIED ORGANISM SNOMED Code(s): 39815238 (2) Candidemia Current Visit: Yes Status: Acute Code(s): B37.7 - CANDIDAL SEPSIS SNOMED Code(s): 080742245 Plan: 1patient with a complicated history in this patient has been in the hospital for almost a month before this initial consultation on 10/08/2024 with the presentation with intractable nausea vomiting in this patient with status post Rickie-en-Y gastrojejunostomy on 09/25/2024 did have a subsequent fascial dehiscence requiring surgical repair and the patient did spike a fever on 10/07/19 with a blood culture no positive for candidemia he did have a last CT on 10/03/2024 did not show any concern for an abscess with a possible source could be PICC line which has been there for almost a month however underlying abdominal source not done excluded. 2blood culture has been repeated from the PICC and peripheral which are currently pending 3-patient did have repeat CT abdominal pelvis concerning for some fluid collection General Surgery is following the patient for possible drainage, for non continue with Zosyn and Eraxis Dictation was produced using [employer] dictation software. please excuse any grammatical, word or spelling errors. Time with Patient: Less than 30
[2024-10-13 17:13] LABS: Glucose,Whole Blood 198 mg/dL (70-110)
[2024-10-14 00:10] LABS: Glucose,Whole Blood 163 mg/dL (70-110)
[2024-10-14 05:06] LABS: African American GFR (CKD) >90 (>60 ml/min/1.73 sqM); Anion Gap 6 mmol/L; Blood Urea Nitrogen 34 mg/dL (9-20); Calcium 8.6 mg/dL (8.4-10.2); Carbon Dioxide 23 mmol/L (22-30); Chloride 111 mmol/L (98-107); Glucose 197 mg/dL (74-99); Non-African American GFR(CKD) >90 (>60 ml/min/1.73 sqM); Sodium 140 mmol/L (137-145)
[2024-10-14 05:17] LABS: Magnesium 1.7 mg/dL (1.6-2.3); Phosphorus 4.1 mg/dL (2.5-4.5); Potassium 6.2 mmol/L (3.5-5.1)
[2024-10-14 06:01] LABS: Glucose,Whole Blood 210 mg/dL (70-110)
[2024-10-14 06:30] LABS: Glucose,Whole Blood 213 mg/dL (70-110)
[2024-10-14] MEDS: INSULIN REGULAR 100 UNIT/ML VIAL (IV) IV ONE (06:50)
[2024-10-14 07:21] LABS: Basophils # (A) 0.09 10*3/uL (0.00-0.10); Basophils % (A) 0.8 %; Eosinophils # (A) 0.42 10*3/uL (0.04-0.35); Eosinophils % (A) 3.9 %; HCT 29.9 % (39.6-50.0); HGB 9.5 g/dL (13.0-17.0); Lymphocytes # (A) 0.66 10*3/uL (0.90-5.00); Lymphocytes % (A) 6.2 %; MCH 30.3 pg (27.0-32.0); MCHC 31.8 g/dL (32.0-37.0); MCV 95.2 fL (80.0-97.0); Monocytes # (A) 0.18 10*3/uL (0.20-1.00); Monocytes % (A) 1.7 %; Neutrophils # (A) 8.85 10*3/uL (1.80-7.70); Neutrophils % (A) 83.1 %; Platelet Count 375 10*3/uL (140-440); RBC 3.14 10*6/uL (4.40-5.60); RDW 15.5 % (11.5-14.5); WBC 10.66 10*3/uL (4.50-10.00)
--- NOTE | 2024-10-14 08:07 | P.PN ---
Subjective Progress Note Date: 10/13/24 Principal diagnosis: Reason for follow-up is candidemia Patient is a 68-year-old male with multiple comorbidities and did have a PEG tube placement on 09/02/2024 subsequent admission to the hospital for intractable nausea and vomiting patient did have a Rickie-en-Y gastrojejunostomy and on 10/03/2024 and subsequent fascial dehiscence that was repaired he did spike a fever and blood cultures came back positive with Alethea prompted this consultation. On today's evaluation that is 10/13/2024,the patient denies any fever or any chills, patient is breathing comfortably on room air, the patient seem to be slightly lethargic today not a very good historian but did have some issues with diarrhea as reported by the nursing staff. Patient white count is up to 14.90 creatinine 0.57 Objective - Vital Signs Vital signs: Vital Signs Temp 97.7 F 10/13/24 07:02 Pulse 86 10/13/24 07:02 Resp 22 10/13/24 07:02 BP 143/89 10/13/24 07:02 Pulse Ox 99 10/13/24 07:02 FiO2 Intake & Output 10/12/24 10/13/24 10/13/24 18:59 06:59 18:59 Output Total 900 Balance -900 Weight 58.5 kg Output: Urine 900 Other: Voiding Method Diaper Diaper Diaper External Catheter External Catheter External Catheter # Voids 3 # Bowel Movements 1 - Exam GENERAL DESCRIPTION: An elderly male lying in bed in no distress RESPIRATORY SYSTEM: Unlabored breathing , decreased breath sounds at bases HEART: S1 S2 regular rate and rhythm , ABDOMEN: Soft , no tenderness EXTREMITIES: No edema feet - Labs CBC & Chem 7: 10/14/24 07:02 10/14/24 04:26 Labs: Abnormal Lab Results - Last 24 Hours (Table) 10/12/24 10/12/24 10/13/24 Range/Units 07:00 18:12 00:09 WBC 10.55 H (4.50-10.00) X 10*3/uL RBC 3.00 L (4.40-5.60) X 10*6/uL Hgb 8.9 L (13.0-17.0) g/dL Hct 28.1 L (39.6-50.0) % MCHC 31.7 L (32.0-37.0) g/dL RDW 15.7 H (11.5-14.5) % MPV 14.0 H (9.5-12.2) FL Immature Gran # (0.00-0.04) 10*3/uL Neutrophils # (Manual) 8.86 H (1.80-7.70) X 10*3/uL Lymphocytes # (Manual) 0.63 L (0.90-5.00) X 10*3/uL Eosinophils # (Manual) 0.74 H (0.04-0.35) X 10*3/uL Chloride (98-107) mmol/L BUN (9-20) mg/dL Creatinine (0.66-1.25) mg/dL Glucose (74-99) mg/dL POC Glucose (mg/dL) 192 H 185 H (70-110) mg/dL 10/13/24 10/13/24 10/13/24 Range/Units 04:57 05:26 09:55 WBC 14.90 H (4.50-10.00) X 10*3/uL RBC 3.23 L (4.40-5.60) X 10*6/uL Hgb 9.9 L (13.0-17.0) g/dL Hct 30.4 L (39.6-50.0) % MCHC (32.0-37.0) g/dL RDW 15.8 H (11.5-14.5) % MPV 12.5 H (9.5-12.2) FL Immature Gran # 0.97 H (0.00-0.04) 10*3/uL Neutrophils # (Manual) (1.80-7.70) X 10*3/uL Lymphocytes # (Manual) (0.90-5.00) X 10*3/uL Eosinophils # (Manual) (0.04-0.35) X 10*3/uL Chloride 113 H (98-107) mmol/L BUN 32 H (9-20) mg/dL Creatinine 0.57 L (0.66-1.25) mg/dL Glucose 211 H (74-99) mg/dL POC Glucose (mg/dL) 201 H (70-110) mg/dL 10/13/24 Range/Units 12:07 WBC (4.50-10.00) X 10*3/uL RBC (4.40-5.60) X 10*6/uL Hgb (13.0-17.0) g/dL Hct (39.6-50.0) % MCHC (32.0-37.0) g/dL RDW (11.5-14.5) % MPV (9.5-12.2) FL Immature Gran # (0.00-0.04) 10*3/uL Neutrophils # (Manual) (1.80-7.70) X 10*3/uL Lymphocytes # (Manual) (0.90-5.00) X 10*3/uL Eosinophils # (Manual) (0.04-0.35) X 10*3/uL Chloride (98-107) mmol/L BUN (9-20) mg/dL Creatinine (0.66-1.25) mg/dL Glucose (74-99) mg/dL POC Glucose (mg/dL) 126 H (70-110) mg/dL Microbiology - Last 24 Hours (Table) 10/11/24 10:04 Catheter Tip Culture - Preliminary Picc Line Alethea albicans Assessment and Plan (1) Sepsis Current Visit: Yes Status: Acute Code(s): A41.9 - SEPSIS, UNSPECIFIED OR GANISM SNOMED Code(s): 63176805 (2) Candidemia Current Visit: Yes Status: Acute Code(s): B37.7 - CANDIDAL SEPSIS SNOMED Code(s): 894341344 Plan: 1patient with a complicated history in this patient has been in the hospital for almost a month before this initial consultation on 10/08/2024 with the presentation with intractable nausea vomiting in this patient with status post Rickie-en-Y gastrojejunostomy on 09/25/2024 did have a subsequent fascial dehiscence requiring surgical repair and the patient did spike a fever on 10/06/2024 with a blood culture no positive for candidemia he did have a last CT on 10/03/2024 did not show any concern for an abscess with a possible source could be PICC line which has been there for almost a month however underlying abdominal source not done excluded. 2blood culture has been repeated from the PICC and peripheral which is growing Alethea 3-patient did have repeat CT abdominal pelvis concerning for some fluid collection General Surgery is following the patient for possible drainage, 4patient is currently being treated with Zosyn and Eraxis, slight worsening of the white count will monitor closely Dictation was produced using [employer] dictation software. please excuse any gram matical, word or spelling errors. Time with Patient: Less than 30
[2024-10-14 08:26] LABS: Glucose,Whole Blood 50 mg/dL (70-110)
[2024-10-14] MEDS: DEXTROSE 50% SYRINGE 50 ML IVP PRN (08:26)
[2024-10-14 08:55] LABS: Glucose,Whole Blood 143 mg/dL (70-110)
--- NOTE | 2024-10-14 09:13 | P.PN ---
Subjective Progress Note Date: 10/13/24 This is a pleasant 68 years old male who was recently discharged from this facility about 4 days ago for nausea vomiting and malnutrition status post PEG tube placement by surgery team. Once he been discharged he started having recurrent nausea vomiting again, he vomited 6 times since yesterday with no blood. Associated with epigastric pain and tenderness His troponin was elevated but EKG showing SVT. He has been evaluated by home service advisor as well during last admission for elevated troponin. Currently denies chest pain or dyspnea. No specific urinary symptoms. No headache dizziness weakness or numbness He is pain mainly in the epigastric area about 9/10 felt like squeezing nonradiating with no precipitating or relieving factors. He states that the pain is similar to last time. He has no bowel movement. He is using the PEG tube at home. He got Zofran 4 mg and is requesting more medicine He is hemodynamically stable and afebrile He has unremarkable CBC, BMP, LFT. WBC is mildly elevated at 10.4 at 11. Lactic acid 4.6 came back to normal at 1.7. Troponin is elevated 0.065. KUB showing nonspecific gas bowel pattern. EKG showed SVT with a rate of [address] depression in V3-V5 Patient lying in bed with no dyspnea or chest pain He is vomiting of blood today. He still has nausea vomiting. He was on Zofran 8 mg we will going to add Reglan IV 5 and then 10 mg. hemoglobin stable at 12.4 with slight improvement. Vital stable. He is not on any blood thinners or aspirin. His on Protonix IV twice daily added today Also we added D5 normal saline Discussed the case with surgery team. CT of the abdomen pelvis with IV contrast is requested. Currently patient denies any abdominal pain or epigastric tenderness. /10 No vomiting today, looks tired No abdominal pain or tenderness PEG tube is in place and feeding tube on hold He still getting IV fluids and Zosyn Plan for EGD today with surgery team given his hematemesis yesterday. Hemoglobin was stable yesterday at 11.3 Monitor hemoglobin Continue with Protonix He is getting Reglan [id number] which prevent him from vomiting 09/25 i came to see the pt twice and he was no in his room 09/26 Patient seen and examined at bedside. He is awake and alert ,he is status post Roex-en-Y gastrojejunostomy. Today postop day #1 He still complaining from epigastric pain and mild tenderness with PEG tube placement to gravity. Patient is not getting tube feeding Patient is getting D5W at 100 mL/h, sodium improved 150 down to 146 today Also patient is getting Zosyn WBC 16.1, hemoglobin 8.4 and sodium 146 Is getting Reglan 5 mg as needed will added 10 mg 09/27 Patient remains with GI symptoms. PEG tube to gravity and patient received TPN. Still with nausea and some abdominal/epigastric pain and tenderness although partially improved. No other new complaint. Labs look stable or slightly improving with sodium 147, hemoglobin 13 and WBC down to 11.3 Nephrology consult was obtained Patient started on normal saline at 100 mL/h and D5W was stopped 09/28 Patient states he is the same over the last 2 days he still have some epigastric pain and tenderness which looks the same also he has some nausea and vomiting although he was taking Reglan. Also patient WBC went up to 13.3. Hemoglobin down to 9.3 Sodium 148 potassium 3.1 Replace potassium per protocol Started on D5W at give Ativan x 1 to help with anxiety and with nausea vomiting 09/29 Patient developed significant tachycardia last night and this morning with heart rate going up to 150 and 160/min. EKG showing sinus tachycardia. Heart rate improved down to 100 and blood pressure stable with systolic 120-150 It is thought multifactorial secondary to anxiety dehydration infection electrolyte abnormalities and pain. D-dimer is ordered but the suspicion for PE is low Patient with no chest pain or dyspnea, actually patient this is the first time he told me he feels better since I saw him from admission. He was sitting in chair with slight weakness. He still getting TPN Zosyn. He getting D5W at 50 mL/h but sodium increased to 152 so increase the dose to 12 5 mL/h Dilaudid added IV Lopressor 5 mg every 8 hours and clonidine patch 0.1 mg Also low potassium and magnesium being replaced. 09/30 Patient is lethargic today with some nausea. He denies epigastric abdominal pain. He is still tachycardic with heart around 120 WBC is 14.5, hemoglobin 9.6 and He remains on D5W at 125 Eliquis dose lowered to 2.5 10/01 Patient today feels improved and better he denies chest pain or dyspnea no epigastric pain or tenderness significant than the other days. PEG tube still in place but not working. Still getting TPN He still tachycardic and blood pressure still slightly on the high side, he got 3 doses of Lopressor 5 mg IV yesterday, we will going to increase his clonidine patch 0.2 up to 0.3. He has CTA of the chest done yesterday for suspicion of PE, no pulm embolism found however there is lung nodule 1.1 cm that he needs follow-up in 3 months for report also there is bilateral groundglass opacities and nodular lesions suspicious for pneumonia versus aspiration pneumonia versus cryptogenic organizing pneumonia. Also there is retained material or secretions or food in the lower esophagus which cause more with aspiration pneumonitis. Patient remains on IV Protonix for esophagitis Therefore patient remains on IV Zosyn. Low potassium but replace per protocol today The other thing his hypernatremia significantly improved 122 yesterday and 124 today while he is on D5 W at 75 mL today compared to 125 yesterday Check labs in the morning 10/02 Today patient feels tired weak and sweaty Blood pressure is low normal, became slightly tachycardic 115. His heart rate is getting controlled with the clonidine patch 0.3 mg and now requiring only once daily dose of IV Lopressor 5 mg over the last 2 days. His albumin is 2.0. His sodium 138 he remains on D5W. He is still getting TPN Will give IV albumin 25 % x 1 Hemoglobin 9.1 10/03 Patient developed severe bleeding from his epigastric wound and his abdominal wall with hemoglobin dropped down to 6.8 and 6.3 received several units of blood transfusion. He was taking to the operating room emergently by surgery team and the bleeding was stopped and the wound was sutured again. After that patient wa s taken to the ICU 10/04 Patient awake alert He feels comfortable He still has expected tenderness at the surgical site Pain is treated with IV Tylenol per surgery team 10/05 Patient awake alert sitting up in bed He denies vomiting Abdominal pain is better Blood pressure 92/65 10/06 He still has some epigastric abdominal pain that comes and goes. He rated about 5-7/10. Yesterday was 10/10 which looks improving Surgical vertical wound is with a dressing in place Patient getting TPN. 10/07/2024 Patient is seen in follow-up today with general surgery following and patient is maintained on TPN. Sodium remains elevated at 149 and per pharmacy notes no further sodium noted in the TPN. Tube feeds remain on hold. Patient continues with J-tube to drainage noted to have some biliary drainage and patient remains NPO. Patient also being followed by pulmonary maintained on room air and is not reporting any shortness of breath. Patient currently afebrile although is having intermittent low-grade temps and maintained on IV Zosyn. Prognosis remains guarded. 10/08/2024 Patient seen in follow-up today with no significant improvements noted reporting continued nausea With vomiting today NG tube remains to drainage per general surgery and is continued on TPN. Sodium remains elevated at 149 and nephrology following as well adjusted IV hydration and will follow up on repeat labs. Patient did have a preliminary blood culture that was positive and infectious disease was consulted patient is maintained on Zosyn and repeat blood cultures pending. Concerns about possible PICC line contamination. Patient is afebrile with no reports of chest pain or shortness of breath. Encouraged to increase activity as tolerated although patient is mostly bedbound. Prognosis is guarded. 10/09/2024 Patient is seen in follow-up today with multiple consultations following. Patient is status post fascial dehiscence repair of the upper incision of the midline incision and also Rickie-en-Y gastrojejunostomy placement and tube was flushed and appears to be functioning with no further vomiting noted. Patient continues on TPN and PEG tube to drainage and will continue. White blood count is improving and hemoglobin remained stable with no bleeding noted. Infectious disease has been consulted maintained on Zosyn and awaiting cultures with initial preliminary blood culture showing molecular ID along with Ines albicans. No vomiting noted today. Patient remains NPO. Nephrology following and has transitioned hydration with increased rate and sodium is improved at 141 today, potassium is 3.8, BUN is 34 with a creatinine of 0.79. Magnesium is 1.5 and will be replaced ALT/AST are mildly elevated and trending down. Patient is significantly weak and recommend PT/OT therapy daily and getting out of the bed more frequently. No bowel movements in the last few days and would recommend bowel regimen. 10/10/2024 Patient is seen in follow-up today reporting still feeling improved and is inquiring about when he can go home. Patient reported to surgery he had a bowel movement although unsure if this was true. Patient denies any further nausea or vomiting at this time and PEG tube remains to drainage. Patient is continued on TPN and will replace electrolytes per protocol. Nephrology following as well and sodium is improving and will continue current regimen. Per PT/OT therapy notes, patient would benefit from rehab for continued strength mobility due to significant weakness and prolonged hospitalization. 10/11/2024 Patient was seen and evaluated today is more awake sitting up in bed with multiple consultations following scheduled to undergo CT abdomen per ID recommendations for further evaluation of possible abdominal source. PICC line is being removed and will be sent for culture and will be replaced as patient is maintained on TPN. General surgery following as well and primary surgeon will be returning Monday and to further discuss today's CT findings along with repeat surgery in the near future. Patient is continued on n.p.o. diet for now and PEG tube is continued to drainage and noted to be bilious. Patient is significantly weak and is attempting to work with physical therapy and get up to the bedside. Patient has been incontinent of urine secondary to significant weakness. Recommend physical therapy daily for continued strength and mobility. Encourage sitting up in the chair more frequently. Case management/social work is following regarding inquiring if TPN is a covered benefit if required outpatient and also the possible need for ECF. Patient is afebrile and white count is normal and blood cultures initially showing Ines and is maintained on a ntifungal awaiting repeat cultures. 10/12/2024 Patient evaluated in follow-up resting in bed comfortably. He has no acute complaints at this time. Abdominal pelvis CT was completed which reveals a postoperative seroma or developing abscess. There is a interval postoperative change involving the anterior abdominal wall with a 2.1 x 2.6 cm air-fluid collection and additional small loculated fluid collections as described above. A patchy consolidative opacity in the partially visualized lower lungs and trace effusion suggestive of multifocal pneumonia in the appropriate clinical setting. Mild circumferential urinary bladder wall thickening recommend correlation with urinalysis for cystitis. A nonspecific small volume free fluid in the pelvis. BUN of 29 creatinine of 0.63, magnesium 1.7. 10/13/2024 Patient evaluated today in follow up on the medical floor. Resting comfortably today. Having significant abdominal discomfort and requesting pain medications. Patient continues on TPN at this time. Catheter tip culture is coming back positive for ines and source of bacteremia. He continues on IV eraxis. He is on TPN/Lipids and remains NPO. White blood cell count 14.90, hgb 9.9, sodium 143, potassium 5.0. Review of systems: Constitutional: No reports of fatigue, fever, or chills Cardiovascular: No reports of chest pain or palpitations Respiratory: No reports of shortness of breath or cough GI: No reports of nausea, vomiting, or diarrhea today, patient reports having a bowel movement : No reports of dysuria or retention Neurovascular: reports of weakness but reports would like to go home All medications have been reviewed Physical exam: GENERAL: The patient is much more awake and alert today, alert and oriented x3, not in any acute distress. Appears older than stated age, well developed, ill- appearing, cachectic, significant muscle wasting noted. Thin built HEENT: Pupils are round and equally reacting to light. EOMI. No scleral icterus. No conjunctival pallor. Normocephalic, atraumatic. No pharyngeal erythema. No thyromegaly. CARDIOVASCULAR: S1 and S2 muffled, less tachycardic PULMONARY: Diminished breath sounds bilaterally otherwise chest is clear to auscultation, no wheezing , no crackles. ABDOMEN: Soft, nontender, nondistended, hypoactive bowel sounds. No palpable organomegaly. PEG tube is in place with no Abdominal tenderness or guarding MUSCULOSKELETAL: No joint swelling or deformity. EXTREMITIES: No cyanosis, clubbing, or pedal edema. NEUROLOGICAL: Gross neurological examination did not reveal any focal deficits. Diffusely weak SKIN: No rashes. no petechiae. 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 Fascial wound dehiscence on 10/03 status post emergent surgical repair requiring multiple blood transfusion Postoperative seroma versus developing abscess Bilateral aspiration pneumonia suspected and patient is continued on Zosyn Hypernatremia, improving and trending down at 140 today Recurrent nausea vomiting, intractable requiring PEG tube placement during last admission. Hypovolemic shock requiring multiple blood transfusions secondary to Fascial wound dehiscence on 10/03 status post emergent surgical repair and close ICU monitoring Epigastric pain and tenderness could be secondary to gastritis, status post Roex-en-Y gastrojejunostomy. S/p G-tube placement Severe calorie protein malnutrition with a BMI of 11.6 Sinus tachycardia versus SVT requiring metoprolol clonidine patch, better con trolled Elevated troponin could be secondary to SVT related dehydration, evaluated by cardiology during last admission Hypertension Hyperlipidemia Anxiety/depression, not on active issue Distal esophagitis Hiatal hernia seen on recent EKG GI prophylaxis DVT prophylaxis Full code Plan: Patient is being closely monitored with multiple consultations following including infectious disease as patient had a blood culture positive from 10/06/2024. Repeat blood culture and pending at this time although preliminary has been negative thus far. Previous blood culture preliminary showing Ines. Repeat CT abdomen was ordered and pending per infectious disease to evaluate f or an abdominal source cultures. General surgery following as well. Patient remains n.p.o. maintained on TPN and tube feedings are also on hold per surgery. PEG tube remains to drainage. Social work is following regarding discharge planning as patient reports wants to go home although was evaluated by physical therapy recommending rehab and has placed referrals. Patient also noted to be on continued TPN and discussing the possibility of requiring it on discharge. Unsure if this is a covered benefit. Also looking into ECF for continued strength and mobility on discharge Pulmonary following patient is maintained on room air with no reports of worsening shortness of breath continue n.p.o. status until bowel activity per surgery. Follow-up on repeat labs and replace electrolytes per protocol Would recommend increased activity as tolerated and will recommend PT/OT therapy daily. PT/OT therapy recommending rehab and referrals were placed Overall prognosis is extremely guarded at this time The impression and plan of care has been dictated by Desiree Clarke, Nurse Practitioner as directed. Dr. Cyndi MD I have performed a history and physical examination and medical decision making of this patient, discussed the same with the dictator, and agree with the dictators assessment and plan as written, documented as a scribe. Based on total visit time, I have performed more than 50% of this visit. Objective - Vital Signs Vital signs: Vital Signs Temp 97.9 F 10/13/24 20:00 Pulse 74 10/13/24 20:00 Resp 16 10/13/24 20:00 BP 111/67 10/13/24 20:00 Pulse Ox 100 10/13/24 20:00 FiO2 Intake & Output 10/13/24 10/13/24 10/14/24 06:59 18:59 06:59 Output Total 900 75 Balance -900 -75 Weight 58.5 kg Output: Drainage 75 Abdomen 75 Urine 900 Other: Voiding Method Diaper Diaper Diaper External Catheter External Catheter External Catheter # Voids 2 1 # Bowel Movements 1 0 - Labs CBC & Chem 7: 10/14/24 07:02 10/14/24 04:26 Labs: Abnormal Lab Results - Last 24 Hours (Table) 10/13/24 10/13/24 10/13/24 Range/Units 00:09 04:57 05:26 WBC (4.50-10.00) 10*3/uL RBC (4.40-5.60) 10*6/uL Hgb (13.0-17.0) g/dL Hct (39.6-50.0) % RDW (11.5-14.5) % MPV (9.5-12.2) fL Immature Gran # (0.00-0.04) 10*3/uL Neutrophils # (1.80-7.70) 10*3/uL Eosinophils # (0.04-0.35) 10*3/uL Basophils # (0.00-0.10) 10*3/uL Chloride 113 H (98-107) mmol/L BUN 32 H (9-20) mg/dL Creatinine 0.57 L (0.66-1.25) mg/dL Glucose 211 H (74-99) mg/dL POC Glucose (mg/dL) 185 H 201 H (70-110) mg/dL 10/13/24 10/13/24 10/13/24 Range/Units 09:55 12:07 17:07 WBC 14.90 H (4.50-10.00) 10*3/uL RBC 3.23 L (4.40-5.60) 10*6/uL Hgb 9.9 L (13.0-17.0) g/dL Hct 30.4 L (39.6-50.0) % RDW 15.8 H (11.5-14.5) % MPV 12.5 H (9.5-12.2) fL Immature Gran # 0.97 H (0.00-0.04) 10*3/uL Neutrophils # 11.32 H (1.80-7.70) 10*3/uL Eosinophils # 0.56 H (0.04-0.35) 10*3/uL Basophils # 0.11 H (0.00-0.10) 10*3/uL Chloride (98-107) mmol/L BUN (9-20) mg/dL Creatinine (0.66-1.25) mg/dL Glucose (74-99) mg/dL POC Glucose (mg/dL) 126 H 198 H (70-110) mg/dL Microbiology - Last 24 Hours (Table) 10/11/24 10:04 Catheter Tip Culture - Preliminary Picc Line Iens albicans Assessment and Plan Time with Patient: Less than 30
[2024-10-14] MEDS: MAGNESIUM SULFATE-D5W PMX 1 GM in DEXTROSE/WATER 1 100ML.BAG IVPB ONE (10:09)
--- NOTE | 2024-10-14 10:59 | P.PN ---
Subjective Progress Note Date: 10/14/24 SURGICAL PROGRESS NOTE CHIEF COMPLAINT: Recurrent nausea and vomiting HISTORY OF PRESENT ILLNESS: Postop day #11 status post repair of fascial dehiscence upper incision of the midline incision. Status post Rickie-en-Y gastrojejunostomy on 09/25/24. Patient's hyperkalemia has been corrected. He is receiving a midline today. Nursing staff reported a bowel movement. Catheter tip culture positive for a yeast. Afebrile. WBC is down from 14.9-10.6 Hgb 9.5. Patient hypoglycemia this morning that was corrected. PHYSICAL EXAM: VITAL SIGNS: Reviewed. GENERAL: Well-developed in no acute distress. ABDOMEN: Soft. Nondistended. Abdominal binder in place. PEG tube to drainage with bilious output NEUROLOGIC: Alert and oriented. Cranial nerves II through XII grossly intact. ASSESSMENT: 1. SMA syndrome 2. Upper GI bleed with bright red blood and coffee-ground emesis. now resolved 3. Intractable nausea and vomiting 4. History of esophageal dysmotility disorder 5. Hiatal hernia 6. Esophagitis 7. Severe protein calorie malnutrition 8. Leukocytosis is reactive from surgery 9. Anemia secondary to malnutrition. 10. Fascial dehiscence of incision status post repair PLAN: -Discussed and offered PEJ tube procedure to patient. Patient refused procedure. -Keep patient n.p.o. -Continue TPN for nutrition support -keep peg tube to drainage -Antibiotics per ID service -DVT prophylaxis subcu heparin Physician [employer] Fleet Supervisor note has been reviewed by physician. Signing provider agrees with the documented findings, assessment, and plan of care. Objective - Vital Signs Vital signs: Vital Signs Temp 98.7 F 10/14/24 07:02 Pulse 74 10/14/24 07:02 Resp 20 10/14/24 07:02 BP 124/86 10/14/24 07:02 Pulse Ox 98 10/14/24 07:02 FiO2 Intake & Output 10/13/24 10/14/24 10/14/24 18:59 06:59 18:59 Intake Total 250 Output Total 75 120 Balance -75 130 Weight 54 kg Intake: Intake, IV Titration 250 Amount Fat Emulsion 20% 250 ml 250 In Empty Bag 1 bag @ 21 mls/hr IV Q72H [facility] Rx#: [id number] Output: Drainage 75 120 Abdomen 75 120 Other: Voiding Method Diaper Diaper Diaper External Catheter External Catheter External Catheter # Voids 2 1 # Bowel Movements 1 1 - Labs CBC & Chem 7: 10/14/24 07:02 10/14/24 09:38 Labs: Abnormal Lab Results - Last 24 Hours (Table) 10/13/24 10/13/24 10/13/24 Range/Units 09:55 12:07 17:07 WBC 14.90 H (4.50-10.00) 10*3/uL RBC 3.23 L (4.40-5.60) 10*6/uL Hgb 9.9 L (13.0-17.0) g/dL Hct 30.4 L (39.6-50.0) % MCHC (32.0-37.0) g/dL RDW 15.8 H (11.5-14.5) % MPV 12.5 H (9.5-12.2) fL Immature Gran # 0.97 H (0.00-0.04) 10*3/uL Neutrophils # 11.32 H (1.80-7.70) 10*3/uL Lymphocytes # (0.90-5.00) 10*3/uL Monocytes # (0.20-1.00) 10*3/uL Eosinophils # 0.56 H (0.04-0.35) 10*3/uL Basophils # 0.11 H (0.00-0.10) 10*3/uL Potassium (3.5-5.1) mmol/L Chloride (98-107) mmol/L BUN (9-20) mg/dL Glucose (74-99) mg/dL POC Glucose (mg/dL) 126 H 198 H (70-110) mg/dL 10/14/24 10/14/24 10/14/24 Range/Units 00:08 04:26 05:59 WBC (4.50-10.00) 10*3/uL RBC (4.40-5.60) 10*6/uL Hgb (13.0-17.0) g/dL Hct (39.6-50.0) % MCHC (32.0-37.0) g/dL RDW (11.5-14.5) % MPV (9.5-12.2) fL Immature Gran # (0.00-0.04) 10*3/uL Neutrophils # (1.80-7.70) 10*3/uL Lymphocytes # (0.90-5.00) 10*3/uL Monocytes # (0.20-1.00) 10*3/uL Eosinophils # (0.04-0.35) 10*3/uL Basophils # (0.00-0.10) 10*3/uL Potassium 6.2 H* (3.5-5.1) mmol/L Chloride 111 H (98-107) mmol/L BUN 34 H (9-20) mg/dL Glucose 197 H (74-99) mg/dL POC Glucose (mg/dL) 163 H 210 H (70-110) mg/dL 10/14/24 10/14/24 10/14/24 Range/Units 06:29 07:02 08:24 WBC 10.66 H (4.50-10.00) 10*3/uL RBC 3.14 L (4.40-5.60) 10*6/uL Hgb 9.5 L (13.0-17.0) g/dL Hct 29.9 L (39.6-50.0) % MCHC 31.8 L (32.0-37.0) g/dL RDW 15.5 H (11.5-14.5) % MPV (9.5-12.2) fL Immature Gran # 0.46 H (0.00-0.04) 10*3/uL Neutrophils # 8.85 H (1.80-7.70) 10*3/uL Lymphocytes # 0.66 L (0.90-5.00) 10*3/uL Monocytes # 0.18 L (0.20-1.00) 10*3/uL Eosinophils # 0.42 H (0.04-0.35) 10*3/uL Basophils # (0.00-0.10) 10*3/uL Potassium (3.5-5.1) mmol/L Chloride (98-107) mmol/L BUN (9-20) mg/dL Glucose (74-99) mg/dL POC Glucose (mg/dL) 213 H 50 L (70-110) mg/dL 10/14/24 Range/Units 08:53 WBC (4.50-10.00) 10*3/uL RBC (4.40-5.60) 10*6/uL Hgb (13.0-17.0) g/dL Hct (39.6-50.0) % MCHC (32.0-37.0) g/dL RDW (11.5-14.5) % MPV (9.5-12.2) fL Immature Gran # (0.00-0.04) 10*3/uL Neutrophils # (1.80-7.70) 10*3/uL Lymphocytes # (0.90-5.00) 10*3/uL Monocytes # (0.20-1.00) 10*3/uL Eosinophils # (0.04-0.35) 10*3/uL Basophils # (0.00-0.10) 10*3/uL Potassium (3.5-5.1) mmol/L Chloride (98-107) mmol/L BUN (9-20) mg/dL Glucose (74-99) mg/dL POC Glucose (mg/dL) 143 H (70-110) mg/dL Microbiology - Last 24 Hours (Table) 10/08/24 18:12 Blood Culture - Final Blood 10/11/24 10:04 Catheter Tip Culture - Preliminary Picc Line Alethea albicans
[2024-10-14] MEDS: 1: MVI, ADULT NO.4 WITH VIT K 10 ML, TRACE (CONC-1ML/DOSE) 1 ML, CALCIUM GLUCONATE 1 GM, IV SCH (11:38)
[2024-10-14 12:34] LABS: Glucose,Whole Blood 162 mg/dL (70-110)
--- NOTE | 2024-10-14 12:55 | P.PN ---
Subjective Patient is seen for follow-up for hypernatremia. He is maintained on TPN. Potassium was elevated at 6.2 and sodium is 140 today. TPN has been held. Nursing staff reports decreased urine output as well. Bladder scan will be performed. Perez catheter was removed yesterday. Objective - Vital Signs Vital signs: Vital Signs Temp 96.7 F L 10/14/24 12:30 Pulse 81 10/14/24 12:30 Resp 18 10/14/24 12:30 BP 129/79 10/14/24 12:30 Pulse Ox 100 10/14/24 12:30 FiO2 Intake & Output 10/13/24 10/14/24 10/14/24 18:59 06:59 18:59 Intake Total 250 Output Total 75 120 Balance -75 130 Weight 54 kg Intake: Intake, IV Titration 250 Amount Fat Emulsion 20% 250 ml 250 In Empty Bag 1 bag @ 21 mls/hr IV Q72H [facility] Rx#: [id number] Output: Drainage 75 120 Abdomen 75 120 Other: Voiding Method Diaper Diaper Diaper External Catheter External Catheter External Catheter # Voids 2 1 # Bowel Movements 1 1 - Exam Patient is awake, comfortable, no acute distress Examination of the heart S1 and S2 Examination of the lungs bilateral breath sounds are heard Abdomen is soft, dressed Examination of lower extremities shows trace edema [employer] exam grossly intact patient is moving all 4 extremities. - Labs CBC & Chem 7: 10/14/24 07:02 10/14/24 09:38 Labs: Abnormal Lab Results - Last 24 Hours (Table) 10/13/24 10/13/24 10/14/24 Range/Units 09:55 17:07 00:08 WBC (4.50-10.00) 10*3/uL RBC (4.40-5.60) 10*6/uL Hgb (13.0-17.0) g/dL Hct (39.6-50.0) % MCHC (32.0-37.0) g/dL RDW (11.5-14.5) % Immature Gran # (0.00-0.04) 10*3/uL Neutrophils # 11.32 H (1.80-7.70) 10*3/uL Lymphocytes # (0.90-5.00) 10*3/uL Monocytes # (0.20-1.00) 10*3/uL Eosinophils # 0.56 H (0.04-0.35) 10*3/uL Basophils # 0.11 H (0.00-0.10) 10*3/uL Potassium (3.5-5.1) mmol/L Chloride (98-107) mmol/L BUN (9-20) mg/dL Glucose (74-99) mg/dL POC Glucose (mg/dL) 198 H 163 H (70-110) mg/dL 10/14/24 10/14/24 10/14/24 Range/Units 04:26 05:59 06:29 WBC (4.50-10.00) 10*3/uL RBC (4.40-5.60) 10*6/uL Hgb (13.0-17.0) g/dL Hct (39.6-50.0) % MCHC (32.0-37.0) g/dL RDW (11.5-14.5) % Immature Gran # (0.00-0.04) 10*3/uL Neutrophils # (1.80-7.70) 10*3/uL Lymphocytes # (0.90-5.00) 10*3/uL Monocytes # (0.20-1.00) 10*3/uL Eosinophils # (0.04-0.35) 10*3/uL Basophils # (0.00-0.10) 10*3/uL Potassium 6.2 H* (3.5-5.1) mmol/L Chloride 111 H (98-107) mmol/L BUN 34 H (9-20) mg/dL Glucose 197 H (74-99) mg/dL POC Glucose (mg/dL) 210 H 213 H (70-110) mg/dL 10/14/24 10/14/24 10/14/24 Range/Units 07:02 08:24 08:53 WBC 10.66 H (4.50-10.00) 10*3/uL RBC 3.14 L (4.40-5.60) 10*6/uL Hgb 9.5 L (13.0-17.0) g/dL Hct 29.9 L (39.6-50.0) % MCHC 31.8 L (32.0-37.0) g/dL RDW 15.5 H (11.5-14.5) % Immature Gran # 0.46 H (0.00-0.04) 10*3/uL Neutrophils # 8.85 H (1.80-7.70) 10*3/uL Lymphocytes # 0.66 L (0.90-5.00) 10*3/uL Monocytes # 0.18 L (0.20-1.00) 10*3/uL Eosinophils # 0.42 H (0.04-0.35) 10*3/uL Basophils # (0.00-0.10) 10*3/uL Potassium (3.5-5.1) mmol/L Chloride (98-107) mmol/L BUN (9-20) mg/dL Glucose (74-99) mg/dL POC Glucose (mg/dL) 50 L 143 H (70-110) mg/dL 10/14/24 Range/Units 12:33 WBC (4.50-10.00) 10*3/uL RBC (4.40-5.60) 10*6/uL Hgb (13.0-17.0) g/dL Hct (39.6-50.0) % MCHC (32.0-37.0) g/dL RDW (11.5-14.5) % Immature Gran # (0.00-0.04) 10*3/uL Neutrophils # (1.80-7.70) 10*3/uL Lymphocytes # (0.90-5.00) 10*3/uL Monocytes # (0.20-1.00) 10*3/uL Eosinophils # (0.04-0.35) 10*3/uL Basophils # (0.00-0.10) 10*3/uL Potassium (3.5-5.1) mmol/L Chloride (98-107) mmol/L BUN (9-20) mg/dL Glucose (74-99) mg/dL POC Glucose (mg/dL) 162 H (70-110) mg/dL Microbiology - Last 24 Hours (Table) 10/08/24 18:12 Blood Culture - Final Blood Assessment and Plan Assessment: 1. Hypernatremia from lack of oral water intake. Sodium level 143 today. 2. SMA syndrome. Surgery following. 3. Status post J-tube placement September 25, 2024. 4. Hypokalemia from poor intake. Being replaced. 5. Fascial dehiscence with bleeding status post repair on 10/03/2024 6. Alethea bacteremia 7. Hyperkalemia, rule out urine retention. Adjust potassium in TPN Plan: Check bladder scan Hold TPN Decrease/remove potassium in TPN Reinsert Perez catheter if patient has urine retention. Control blood sugars
[2024-10-14 18:07] LABS: Glucose,Whole Blood 232 mg/dL (70-110)
[2024-10-14] MEDS: NYSTATIN 100,000 UNIT/GM POWD 15 GM TOPICAL SCH (22:20)
[2024-10-15 00:08] LABS: Glucose,Whole Blood 229 mg/dL (70-110)
[2024-10-15 05:59] LABS: Glucose,Whole Blood 210 mg/dL (70-110)
[2024-10-15 06:20] LABS: Ionized Calcium 4.9 mg/dL (4.5-5.3)
[2024-10-15 06:29] LABS: AST 48 U/L (17-59); African American GFR (CKD) >90 (>60 ml/min/1.73 sqM); Albumin 2.4 g/dL (3.5-5.0); Albumin/Globulin Ratio 0.7; Anion Gap 7 mmol/L; Blood Urea Nitrogen 32 mg/dL (9-20); Calcium 8.3 mg/dL (8.4-10.2); Carbon Dioxide 23 mmol/L (22-30); Chloride 112 mmol/L (98-107); Globulin 3.3 g/dL; Magnesium 2.1 mg/dL (1.6-2.3); Non-African American GFR(CKD) >90 (>60 ml/min/1.73 sqM); Phosphorus 3.2 mg/dL (2.5-4.5); Sodium 142 mmol/L (137-145); Total Bilirubin 0.8 mg/dL (0.2-1.3); Total Protein 5.7 g/dL (6.3-8.2)
[2024-10-15 06:30] LABS: ALT 52 U/L (4-49); Glucose 205 mg/dL (74-99); Potassium 4.3 mmol/L (3.5-5.1)
[2024-10-15 06:31] LABS: Alkaline Phosphatase 313 U/L (38-126)
--- NOTE | 2024-10-15 06:44 | P.PN ---
Subjective Progress Note Date: 10/14/24 This is a pleasant 68 years old male who was recently discharged from this facility about 4 days ago for nausea vomiting and malnutrition status post PEG tube placement by surgery team. Once he been discharged he started having recurrent nausea vomiting again, he vomited 6 times since yesterday with no blood. Associated with epigastric pain and tenderness His troponin was elevated but EKG showing SVT. He has been evaluated by physics professor as well during last admission for elevated troponin. Currently denies chest pain or dyspnea. No specific urinary symptoms. No headache dizziness weakness or numbness He is pain mainly in the epigastric area about 9/10 felt like squeezing nonradiating with no precipitating or relieving factors. He states that the pain is similar to last time. He has no bowel movement. He is using the PEG tube at home. He got Zofran 4 mg and is requesting more medicine He is hemodynamically stable and afebrile He has unremarkable CBC, BMP, LFT. WBC is mildly elevated at 10.4 at 11. Lactic acid 4.6 came back to normal at 1.7. Troponin is elevated 0.065. KUB showing nonspecific gas bowel pattern. EKG showed SVT with a rate of [address] depression in V3-V5 Patient lying in bed with no dyspnea or chest pain He is vomiting of blood today. He still has nausea vomiting. He was on Zofran 8 mg we will going to add Reglan IV 5 and then 10 mg. hemoglobin stable at 12.4 with slight improvement. Vital stable. He is not on any blood thinners or aspirin. His on Protonix IV twice daily added today Also we added D5 normal saline Discussed the case with surgery team. CT of the abdomen pelvis with IV contrast is requested. Currently patient denies any abdominal pain or epigastric tenderness. /10 No vomiting today, looks tired No abdominal pain or tenderness PEG tube is in place and feeding tube on hold He still getting IV fluids and Zosyn Plan for EGD today with surgery team given his hematemesis yesterday. Hemoglobin was stable yesterday at 11.3 Monitor hemoglobin Continue with Protonix He is getting Reglan [id number] which prevent him from vomiting 09/25 i came to see the pt twice and he was no in his room 09/26 Patient seen and examined at bedside. He is awake and alert ,he is status post Roex-en-Y gastrojejunostomy. Today postop day #1 He still complaining from epigastric pain and mild tenderness with PEG tube placement to gravity. Patient is not getting tube feeding Patient is getting D5W at 100 mL/h, sodium improved 150 down to 146 today Also patient is getting Zosyn WBC 16.1, hemoglobin 8.4 and sodium 146 Is getting Reglan 5 mg as needed will added 10 mg 09/27 Patient remains with GI symptoms. PEG tube to gravity and patient received TPN. Still with nausea and some abdominal/epigastric pain and tenderness although partially improved. No other new complaint. Labs look stable or slightly improving with sodium 147, hemoglobin 13 and WBC down to 11.3 Nephrology consult was obtained Patient started on normal saline at 100 mL/h and D5W was stopped 09/28 Patient states he is the same over the last 2 days he still have some epigastric pain and tenderness which looks the same also he has some nausea and vomiting although he was taking Reglan. Also patient WBC went up to 13.3. Hemoglobin down to 9.3 Sodium 148 potassium 3.1 Replace potassium per protocol Started on D5W at give Ativan x 1 to help with anxiety and with nausea vomiting 09/29 Patient developed significant tachycardia last night and this morning with heart rate going up to 150 and 160/min. EKG showing sinus tachycardia. Heart rate improved down to 100 and blood pressure stable with systolic 120-150 It is thought multifactorial secondary to anxiety dehydration infection electrolyte abnormalities and pain. D-dimer is ordered but the suspicion for PE is low Patient with no chest pain or dyspnea, actually patient this is the first time he told me he feels better since I saw him from admission. He was sitting in chair with slight weakness. He still getting TPN Zosyn. He getting D5W at 50 mL/h but sodium increased to 152 so increase the dose to 12 5 mL/h Dilaudid added IV Lopressor 5 mg every 8 hours and clonidine patch 0.1 mg Also low potassium and magnesium being replaced. 09/30 Patient is lethargic today with some nausea. He denies epigastric abdominal pain. He is still tachycardic with heart around 120 WBC is 14.5, hemoglobin 9.6 and He remains on D5W at 125 Eliquis dose lowered to 2.5 10/01 Patient today feels improved and better he denies chest pain or dyspnea no epigastric pain or tenderness significant than the other days. PEG tube still in place but not working. Still getting TPN He still tachycardic and blood pressure still slightly on the high side, he got 3 doses of Lopressor 5 mg IV yesterday, we will going to increase his clonidine patch 0.2 up to 0.3. He has CTA of the chest done yesterday for suspicion of PE, no pulm embolism found however there is lung nodule 1.1 cm that he needs follow-up in 3 months for report also there is bilateral groundglass opacities and nodular lesions suspicious for pneumonia versus aspiration pneumonia versus cryptogenic organizing pneumonia. Also there is retained material or secretions or food in the lower esophagus which cause more with aspiration pneumonitis. Patient remains on IV Protonix for esophagitis Therefore patient remains on IV Zosyn. Low potassium but replace per protocol today The other thing his hypernatremia significantly improved 122 yesterday and 124 today while he is on D5 W at 75 mL today compared to 125 yesterday Check labs in the morning 10/02 Today patient feels tired weak and sweaty Blood pressure is low normal, became slightly tachycardic 115. His heart rate is getting controlled with the clonidine patch 0.3 mg and now requiring only once daily dose of IV Lopressor 5 mg over the last 2 days. His albumin is 2.0. His sodium 138 he remains on D5W. He is still getting TPN Will give IV albumin 25 % x 1 Hemoglobin 9.1 10/03 Patient developed severe bleeding from his epigastric wound and his abdominal wall with hemoglobin dropped down to 6.8 and 6.3 received several units of blood transfusion. He was taking to the operating room emergently by surgery team and the bleeding was stopped and the wound was sutured again. After that patient wa s taken to the ICU 10/04 Patient awake alert He feels comfortable He still has expected tenderness at the surgical site Pain is treated with IV Tylenol per surgery team 10/05 Patient awake alert sitting up in bed He denies vomiting Abdominal pain is better Blood pressure 92/65 10/06 He still has some epigastric abdominal pain that comes and goes. He rated about 5-7/10. Yesterday was 10/10 which looks improving Surgical vertical wound is with a dressing in place Patient getting TPN. 10/07/2024 Patient is seen in follow-up today with general surgery following and patient is maintained on TPN. Sodium remains elevated at 149 and per pharmacy notes no further sodium noted in the TPN. Tube feeds remain on hold. Patient continues with J-tube to drainage noted to have some biliary drainage and patient remains NPO. Patient also being followed by pulmonary maintained on room air and is not reporting any shortness of breath. Patient currently afebrile although is having intermittent low-grade temps and maintained on IV Zosyn. Prognosis remains guarded. 10/08/2024 Patient seen in follow-up today with no significant improvements noted reporting continued nausea With vomiting today NG tube remains to drainage per general surgery and is continued on TPN. Sodium remains elevated at 149 and nephrology following as well adjusted IV hydration and will follow up on repeat labs. Patient did have a preliminary blood culture that was positive and infectious disease was consulted patient is maintained on Zosyn and repeat blood cultures pending. Concerns about possible PICC line contamination. Patient is afebrile with no reports of chest pain or shortness of breath. Encouraged to increase activity as tolerated although patient is mostly bedbound. Prognosis is guarded. 10/09/2024 Patient is seen in follow-up today with multiple consultations following. Patient is status post fascial dehiscence repair of the upper incision of the midline incision and also Rickie-en-Y gastrojejunostomy placement and tube was flushed and appears to be functioning with no further vomiting noted. Patient continues on TPN and PEG tube to drainage and will continue. White blood count is improving and hemoglobin remained stable with no bleeding noted. Infectious disease has been consulted maintained on Zosyn and awaiting cultures with initial preliminary blood culture showing molecular ID along with Ines albicans. No vomiting noted today. Patient remains NPO. Nephrology following and has transitioned hydration with increased rate and sodium is improved at 141 today, potassium is 3.8, BUN is 34 with a creatinine of 0.79. Magnesium is 1.5 and will be replaced ALT/AST are mildly elevated and trending down. Patient is significantly weak and recommend PT/OT therapy daily and getting out of the bed more frequently. No bowel movements in the last few days and would recommend bowel regimen. 10/10/2024 Patient is seen in follow-up today reporting still feeling improved and is inquiring about when he can go home. Patient reported to surgery he had a bowel movement although unsure if this was true. Patient denies any further nausea or vomiting at this time and PEG tube remains to drainage. Patient is continued on TPN and will replace electrolytes per protocol. Nephrology following as well and sodium is improving and will continue current regimen. Per PT/OT therapy notes, patient would benefit from rehab for continued strength mobility due to significant weakness and prolonged hospitalization. 10/11/2024 Patient was seen and evaluated today is more awake sitting up in bed with multiple consultations following scheduled to undergo CT abdomen per ID recommendations for further evaluation of possible abdominal source. PICC line is being removed and will be sent for culture and will be replaced as patient is maintained on TPN. General surgery following as well and primary surgeon will be returning Monday and to further discuss today's CT findings along with repeat surgery in the near future. Patient is continued on n.p.o. diet for now and PEG tube is continued to drainage and noted to be bilious. Patient is significantly weak and is attempting to work with physical therapy and get up to the bedside. Patient has been incontinent of urine secondary to significant weakness. Recommend physical therapy daily for continued strength and mobility. Encourage sitting up in the chair more frequently. Case management/social work is following regarding inquiring if TPN is a covered benefit if required outpatient and also the possible need for ECF. Patient is afebrile and white count is normal and blood cultures initially showing Ines and is maintained on a ntifungal awaiting repeat cultures. 10/12/2024 Patient evaluated in follow-up resting in bed comfortably. He has no acute complaints at this time. Abdominal pelvis CT was completed which reveals a postoperative seroma or developing abscess. There is a interval postoperative change involving the anterior abdominal wall with a 2.1 x 2.6 cm air-fluid collection and additional small loculated fluid collections as described above. A patchy consolidative opacity in the partially visualized lower lungs and trace effusion suggestive of multifocal pneumonia in the appropriate clinical setting. Mild circumferential urinary bladder wall thickening recommend correlation with urinalysis for cystitis. A nonspecific small volume free fluid in the pelvis. BUN of 29 creatinine of 0.63, magnesium 1.7. 10/13/2024 Patient evaluated today in follow up on the medical floor. Resting comfortably today. Having significant abdominal discomfort and requesting pain medications. Patient continues on TPN at this time. Catheter tip culture is coming back positive for ines and source of bacteremia. He continues on IV eraxis. He is on TPN/Lipids and remains NPO. White blood cell count 14.90, hgb 9.9, sodium 143, potassium 5.0. 10/14/2024 Patient evaluated today in follow up on the medical floor. Resting comfortably. Continues on TPN. Continues on IV eraxis. Review of systems: Constitutional: No reports of fatigue, fever, or chills Cardiovascular: No reports of chest pain or palpitations Respiratory: No reports of shortness of breath or cough GI: No reports of nausea, vomiting, or diarrhea today, patient reports having a bowel movement : No reports of dysuria or retention Neurovascular: reports of weakness but reports would like to go home All medications have been reviewed Physical exam: GENERAL: The patient is much more awake and alert today, alert and oriented x3, not in any acute distress. Appears older than stated age, well developed, ill- appearing, cachectic, significant muscle wasting noted. Thin built HEENT: Pupils are round and equally reacting to light. EOMI. No scleral icterus. No conjunctival pallor. Normocephalic, atraumatic. No pharyngeal erythema. No thyromegaly. CARDIOVASCULAR: S1 and S2 muffled, less tachycardic PULMONARY: Diminished breath sounds bilaterally otherwise chest is clear to auscultation, no wheezing , no crackles. ABDOMEN: Soft, nontender, nondistended, hypoactive bowel sounds. No palpable organomegaly. PEG tube is in place with no Abdominal tenderness or guarding MUSCULOSKELETAL: No joint swelling or deformity. EXTREMITIES: No cyanosis, clubbing, or pedal edema. NEUROLOGICAL: Gross neurological examination did not reveal any focal deficits. Diffusely weak SKIN: No rashes. no petechiae. 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 Fascial wound dehiscence on 10/03 status post emergent surgical repair requiring multiple blood transfusion Postoperative seroma versus developing abscess Bilateral aspiration pneumonia suspected and patient is continued on Zosyn Hypernatremia, improving and trending down at 140 today Recurrent nausea vomiting, intractable requiring PEG tube placement during last admission. Hypovolemic shock requiring multiple blood transfusions secondary to Fascial wound dehiscence on 10/03 status post emergent surgical repair and close ICU monitoring Epigastric pain and tenderness could be secondary to gastritis, status post Roex-en-Y gastrojejunostomy. S/p G-tube placement Severe calorie protein malnutrition with a BMI of 11.6 Sinus tachycardia versus SVT requiring metoprolol clonidine patch, better controlled Elevated troponin could be secondary to SVT related dehydration, evaluated by cardiology during last admission Hypertension Hyperlipidemia Anxiety/depression, not on active issue Distal esophagitis Hiatal hernia seen on recent EKG GI prophylaxis DVT prophylaxis Full code Plan: Patient is being closely monitored with multiple consultations following including infectious disease as patient had a blood culture positive from 10/06. Repeat blood culture and pending at this time although preliminary has been negative thus far. Previous blood culture preliminary showing Ines. Repeat CT abdomen was ordered and pending per infectious disease to evaluate for an abdominal source cultures. General surgery following as well. Patient remains n.p.o. maintained on TPN and tube feedings are also on hold per surgery. PEG tube remains to drainage. Social work is following regarding discharge planning as patient reports wants to go home although was evaluated by physical therapy recommending rehab and has placed referrals. Patient also noted to be on continued TPN and discussing the possibility of requiring it on discharge. Unsure if this is a covered benefit. Also looking into ECF for continued strength and mobility on discharge Pulmonary following patient is maintained on room air with no reports of worsening shortness of breath continue n.p.o. status until bowel activity per surgery. Follow-up on repeat labs and replace electrolytes per protocol Would recommend increased activity as tolerated and will recommend PT/OT therapy daily. PT/OT therapy recommending rehab and referrals were placed Overall prognosis is extremely guarded at this time The impression and plan of care has been dictated by Desiree Clarke Nurse Practitioner as directed. Dr. Cyndi MD I have performed a history and physical examination and medical decision making of this patient, discussed the same with the dictator, and agree with the dictators assessment and plan as written, documented as a scribe. Based on total visit time, I have performed more than 50% of this visit. Objective - Vital Signs Vital signs: Vital Signs Temp 98.7 F 10/14/24 07:02 Pulse 74 10/14/24 07:02 Resp 20 10/14/24 07:02 BP 124/86 05/12/25 07:02 Pulse Ox 98 10/14/24 07:02 FiO2 Intake & Output 10/13/24 10/14/24 10/14/24 18:59 06:59 18:59 Intake Total 250 Output Total 75 120 Balance -75 130 Weight 54 kg Intake: Intake, IV Titration 250 Amount Fat Emulsion 20% 250 ml 250 In Empty Bag 1 bag @ 21 mls/hr IV Q72H [facility] Rx#: [id number] Output: Drainage 75 120 Abdomen 75 120 Other: Voiding Method Diaper Diaper Diaper External Catheter External Catheter External Catheter # Voids 2 1 # Bowel Movements 1 1 - Labs CBC & Chem 7: 10/14/24 07:02 10/15/24 05:46 Labs: Abnormal Lab Results - Last 24 Hours (Table) 10/13/24 10/13/24 10/13/24 Range/Units 09:55 12:07 17:07 WBC 14.90 H (4.50-10.00) 10*3/uL RBC 3.23 L (4.40-5.60) 10*6/uL Hgb 9.9 L (13.0-17.0) g/dL Hct 30.4 L (39.6-50.0) % MCHC (32.0-37.0) g/dL RDW 15.8 H (11.5-14.5) % MPV 12.5 H (9.5-12.2) fL Immature Gran # 0.97 H (0.00-0.04) 10*3/uL Neutrophils # 11.32 H (1.80-7.70) 10*3/uL Lymphocytes # (0.90-5.00) 10*3/uL Monocytes # (0.20-1.00) 10*3/uL Eosinophils # 0.56 H (0.04-0.35) 10*3/uL Basophils # 0.11 H (0.00-0.10) 10*3/uL Potassium (3.5-5.1) mmol/L Chloride (98-107) mmol/L BUN (9-20) mg/dL Glucose (74-99) mg/dL POC Glucose (mg/dL) 126 H 198 H (70-110) mg/dL 10/14/24 10/14/24 10/14/24 Range/Units 00:08 04:26 05:59 WBC (4.50-10.00) 10*3/uL RBC (4.40-5.60) 10*6/uL Hgb (13.0-17.0) g/dL Hct (39.6-50.0) % MCHC (32.0-37.0) g/dL RDW (11.5-14.5) % MPV (9.5-12.2) fL Immature Gran # (0.00-0.04) 10*3/uL Neutrophils # (1.80-7.70) 10*3/uL Lymphocytes # (0.90-5.00) 10*3/uL Monocytes # (0.20-1.00) 10*3/uL Eosinophils # (0.04-0.35) 10*3/uL Basophils # (0.00-0.10) 10*3/uL Potassium 6.2 H* (3.5-5.1) mmol/L Chloride 111 H (98-107) mmol/L BUN 34 H (9-20) mg/dL Glucose 197 H (74-99) mg/dL POC Glucose (mg/dL) 163 H 210 H (70-110) mg/dL 10/14/24 10/14/24 10/14/24 Range/Units 06:29 07:02 08:24 WBC 10.66 H (4.50-10.00) 10*3/uL RBC 3.14 L (4.40-5.60) 10*6/uL Hgb 9.5 L (13.0-17.0) g/dL Hct 29.9 L (39.6-50.0) % MCHC 31.8 L (32.0-37.0) g/dL RDW 15.5 H (11.5-14.5) % MPV (9.5-12.2) fL Immature Gran # 0.46 H (0.00-0.04) 10*3/uL Neutrophils # 8.85 H (1.80-7.70) 10*3/uL Lymphocytes # 0.66 L (0.90-5.00) 10*3/uL Monocytes # 0.18 L (0.20-1.00) 10*3/uL Eosinophils # 0.42 H (0.04-0.35) 10*3/uL Basophils # (0.00-0.10) 10*3/uL Potassium (3.5-5.1) mmol/L Chloride (98-107) mmol/L BUN (9-20) mg/dL Glucose (74-99) mg/dL POC Glucose (mg/dL) 213 H 50 L (70-110) mg/dL 10/14/24 Range/Units 08:53 WBC (4.50-10.00) 10*3/uL RBC (4.40-5.60) 10*6/uL Hgb (13.0-17.0) g/dL Hct (39.6-50.0) % MCHC (32.0-37.0) g/dL RDW (11.5-14.5) % MPV (9.5-12.2) fL Immature Gran # (0.00-0.04) 10*3/uL Neutrophils # (1.80-7.70) 10*3/uL Lymphocytes # (0.90-5.00) 10*3/uL Monocytes # (0.20-1.00) 10*3/uL Eosinophils # (0.04-0.35) 10*3/uL Basophils # (0.00-0.10) 10*3/uL Potassium (3.5-5.1) mmol/L Chloride (98-107) mmol/L BUN (9-20) mg/dL Glucose (74-99) mg/dL POC Glucose (mg/dL) 143 H (70-110) mg/dL Microbiology - Last 24 Hours (Table) 10/08/24 18:12 Blood Culture - Final Blood 10/11/24 10:04 Catheter Tip Culture - Preliminary Picc Line Ines albicans
[2024-10-15 08:54] LABS: Basophils # (A) 0.06 X 10*3/uL (0.00-0.10); Basophils % (A) 0.8 %; Eosinophils % (A) 4.2 %; HCT 26.7 % (39.6-50.0); HGB 8.2 g/dL (13.0-17.0); Lymphocytes # (A) 0.75 X 10*3/uL (0.90-5.00); Lymphocytes % (A) 10.5 %; MCH 29.4 pg (27.0-32.0); MCHC 30.7 g/dL (32.0-37.0); MCV 95.7 FL (80.0-97.0); Monocytes # (A) 0.36 X 10*3/uL (0.20-1.00); NRBC Per 100 WBC 0 X 10*3/uL (0.00-0.01); Neutrophils # (A) 5.39 X 10*3/uL (1.80-7.70); Neutrophils % (A) 75.2 %; Platelet Count 137 X 10*3/uL (140-440); RBC 2.79 X 10*6/uL (4.40-5.60); RDW 15.3 % (11.5-14.5); WBC 7.17 X 10*3/uL (4.50-10.00)
[2024-10-15 12:04] LABS: Glucose,Whole Blood 196 mg/dL (70-110)
--- NOTE | 2024-10-15 13:23 | P.PN ---
Subjective Progress Note Date: 10/15/24 SURGICAL PROGRESS NOTE CHIEF COMPLAINT: Recurrent nausea and vomiting HISTORY OF PRESENT ILLNESS: Status post repair of fascial dehiscence upper incision of the midline incision on 10/03/24. Status post Rickie-en-Y gastrojejunostomy on 09/25/24. Patient is complaining of nausea today and having some belching. Remains on TPN for nutrition support. Afebrile. WBC normalized at 7.17 Hgb 8.2 platelets 137 PHYSICAL EXAM: VITAL SIGNS: Reviewed. GENERAL: Well-developed in no acute distress. ABDOMEN: Soft. Nondistended. Abdominal binder in place. PEG tube to drainage with hospitality host bilious output NEUROLOGIC: Alert and oriented. Cranial nerves II through XII grossly intact. ASSESSMENT: 1. SMA syndrome 2. Upper GI bleed with bright red blood and coffee-ground emesis. now resolved 3. Intractable nausea and vomiting 4. History of esophageal dysmotility disorder 5. Hiatal hernia 6. Esophagitis 7. Severe protein calorie malnutrition 8. Leukocytosis is reactive from surgery 9. Anemia secondary to malnutrition. 10. Fascial dehiscence of incision status post repair PLAN: -Peg o gram with Gastrografin ordered for tomorrow -Discussed and offered PEJ tube procedure to patient. Patient refused procedure. -Keep patient n.p.o. -Continue TPN for nutrition support -keep peg tube to drainage -Antibiotics per ID service -DVT prophylaxis subcu heparin Physician It Risk And Assurance Manager note has been reviewed by physician. Signing provider agrees with the documented findings, assessment, and plan of care. Objective - Vital Signs Vital signs: Vital Signs Temp 98 F 10/15/24 08:00 Pulse 88 10/15/24 08:00 Resp 20 10/15/24 08:00 BP 131/81 10/15/24 08:00 Pulse Ox 99 10/15/24 08:00 FiO2 Intake & Output 10/14/24 10/15/24 10/15/24 18:59 06:59 18:59 Intake Total 1011 Output Total 70 200 Balance -70 1011 -200 Weight 50 kg Intake: Intake, IV Titration 1011 Amount Calcium Gluconate 1 gm 1011 Magnesium Sulfate gm 0.5 gm In Amino Acids 5 %/ Dextrose 20 % 1,000 ml @ 80 mls/hr IV .BY DURATION [facility] Rx#:[id number] Output: Drainage 20 Abdomen 20 Urine 200 Emesis 50 Other: Voiding Method Diaper Diaper Urinal External Catheter External Catheter Diaper # Voids 1 4 1 - Labs CBC & Chem 7: 10/15/24 05:46 10/15/24 05:46 Labs: Abnormal Lab Results - Last 24 Hours (Table) 10/14/24 10/15/24 10/15/24 Range/Units 18:04 00:06 05:46 RBC (4.40-5.60) X 10*6/uL Hgb (13.0-17.0) g/dL Hct (39.6-50.0) % MCHC (32.0-37.0) g/dL RDW (11.5-14.5) % Plt Count (140-440) X 10*3/uL MPV (9.5-12.2) FL Immature Gran # (0.00-0.04) X 10*3/uL Lymphocytes # (0.90-5.00) X 10*3/uL Chloride 112 H (98-107) mmol/L BUN 32 H (9-20) mg/dL Creatinine 0.55 L (0.66-1.25) mg/dL Glucose 205 H (74-99) mg/dL POC Glucose (mg/dL) 232 H 229 H (70-110) mg/dL Calcium 8.3 L (8.4-10.2) mg/dL ALT 52 H (4-49) U/L Alkaline Phosphatase 313 H (38-126) U/L Total Protein 5.7 L (6.3-8.2) g/dL Albumin 2.4 L (3.5-5.0) g/dL 10/15/24 10/15/24 10/15/24 Range/Units 05:46 05:57 12:02 RBC 2.79 L (4.40-5.60) X 10*6/uL Hgb 8.2 L (13.0-17.0) g/dL Hct 26.7 L (39.6-50.0) % MCHC 30.7 L (32.0-37.0) g/dL RDW 15.3 H (11.5-14.5) % Plt Count 137 L (140-440) X 10*3/uL MPV 13.0 H (9.5-12.2) FL Immature Gran # 0.31 H (0.00-0.04) X 10*3/uL Lymphocytes # 0.75 L (0.90-5.00) X 10*3/uL Chloride (98-107) mmol/L BUN (9-20) mg/dL Creatinine (0.66-1.25) mg/dL Glucose (74-99) mg/dL POC Glucose (mg/dL) 210 H 196 H (70-110) mg/dL Calcium (8.4-10.2) mg/dL ALT (4-49) U/L Alkaline Phosphatase (38-126) U/L Total Protein (6.3-8.2) g/dL Albumin (3.5-5.0) g/dL
[2024-10-15] MEDS ORDERED: HYDROcodone/APAP 15 ML SOLUTION PO PRN (13:46)
--- NOTE | 2024-10-15 15:51 | P.PN ---
Subjective Progress Note Date: 10/14/24 Principal diagnosis: Reason for follow-up is candidemia Patient is a 68-year-old male with multiple comorbidities and did have a PEG tube placement on 09/02/2024 subsequent admission to the hospital for intractable nausea and vomiting patient did have a Rickie-en-Y gastrojejunostomy and on 10/03/2024 and subsequent fascial dehiscence that was repaired he did spike a fever and blood cultures came back positive with Alethea prompted this consultation. On today's evaluation that is 10/14/2024,the patient remains to be afebrile, patient is on 2 L nasal cannula supplemental oxygen and breathing comfortably patient is currently sleepy in no distress no vomiting or diarrhea or in the changes reported by the nursing staff. Patient did have a white count of 10.66, creatinine 0.70 Objective - Vital Signs Vital signs: Vital Signs Temp 98.7 F 10/14/24 07:02 Pulse 74 10/14/24 07:02 Resp 20 10/14/24 07:02 BP 124/86 10/14/24 07:02 Pulse Ox 98 10/14/24 07:02 FiO2 Intake & Output 10/13/24 10/14/24 10/14/24 18:59 06:59 18:59 Intake Total 250 Output Total 75 120 Balance -75 130 Weight 54 kg Intake: Intake, IV Titration 250 Amount Fat Emulsion 20% 250 ml 250 In Empty Bag 1 bag @ 21 mls/hr IV Q72H [facility] Rx#: [id number] Output: Drainage 75 120 Abdomen 75 120 Other: Voiding Method Diaper Diaper Diaper External Catheter External Catheter External Catheter # Voids 2 1 # Bowel Movements 1 1 - Exam GENERAL DESCRIPTION: An elderly male lying in bed in no distress RESPIRATORY SYSTEM: Unlabored breathing , decreased breath sounds at bases HEART: S1 S2 regular rate and rhythm , ABDOMEN: Soft , no tenderness EXTREMITIES: No edema feet - Labs CBC & Chem 7: 10/15/24 05:46 10/15/24 05:46 Labs: Abnormal Lab Results - Last 24 Hours (Table) 10/13/24 10/13/24 10/14/24 Range/Units 09:55 17:07 00:08 WBC (4.50-10.00) 10*3/uL RBC (4.40-5.60) 10*6/uL Hgb (13.0-17.0) g/dL Hct (39.6-50.0) % MCHC (32.0-37.0) g/dL RDW (11.5-14.5) % Immature Gran # (0.00-0.04) 10*3/uL Neutrophils # 11.32 H (1.80-7.70) 10*3/uL Lymphocytes # (0.90-5.00) 10*3/uL Monocytes # (0.20-1.00) 10*3/uL Eosinophils # 0.56 H (0.04-0.35) 10*3/uL Basophils # 0.11 H (0.00-0.10) 10*3/uL Potassium (3.5-5.1) mmol/L Chloride (98-107) mmol/L BUN (9-20) mg/dL Glucose (74-99) mg/dL POC Glucose (mg/dL) 198 H 163 H (70-110) mg/dL 10/14/24 10/14/24 10/14/24 Range/Units 04:26 05:59 06:29 WBC (4.50-10.00) 10*3/uL RBC (4.40-5.60) 10*6/uL Hgb (13.0-17.0) g/dL Hct (39.6-50.0) % MCHC (32.0-37.0) g/dL RDW (11.5-14.5) % Immature Gran # (0.00-0.04) 10*3/uL Neutrophils # (1.80-7.70) 10*3/uL Lymphocytes # (0.90-5.00) 10*3/uL Monocytes # (0.20-1.00) 10*3/uL Eosinophils # (0.04-0.35) 10*3/uL Basophils # (0.00-0.10) 10*3/uL Potassium 6.2 H* (3.5-5.1) mmol/L Chloride 111 H (98-107) mmol/L BUN 34 H (9-20) mg/dL Glucose 197 H (74-99) mg/dL POC Glucose (mg/dL) 210 H 213 H (70-110) mg/dL 10/14/24 10/14/24 10/14/24 Range/Units 07:02 08:24 08:53 WBC 10.66 H (4.50-10.00) 10*3/uL RBC 3.14 L (4.40-5.60) 10*6/uL Hgb 9.5 L (13.0-17.0) g/dL Hct 29.9 L (39.6-50.0) % MCHC 31.8 L (32.0-37.0) g/dL RDW 15.5 H (11.5-14.5) % Immature Gran # 0.46 H (0.00-0.04) 10*3/uL Neutrophils # 8.85 H (1.80-7.70) 10*3/uL Lymphocytes # 0.66 L (0.90-5.00) 10*3/uL Monocytes # 0.18 L (0.20-1.00) 10*3/uL Eosinophils # 0.42 H (0.04-0.35) 10*3/uL Basophils # (0.00-0.10) 10*3/uL Potassium (3.5-5.1) mmol/L Chloride (98-107) mmol/L BUN (9-20) mg/dL Glucose (74-99) mg/dL POC Glucose (mg/dL) 50 L 143 H (70-110) mg/dL 10/14/24 Range/Units 12:33 WBC (4.50-10.00) 10*3/uL RBC (4.40-5.60) 10*6/uL Hgb (13.0-17.0) g/dL Hct (39.6-50.0) % MCHC (32.0-37.0) g/dL RDW (11.5-14.5) % Immature Gran # (0.00-0.04) 10*3/uL Neutrophils # (1.80-7.70) 10*3/uL Lymphocytes # (0.90-5.00) 10*3/uL Monocytes # (0.20-1.00) 10*3/uL Eosinophils # (0.04-0.35) 10*3/uL Basophils # (0.00-0.10) 10*3/uL Potassium (3.5-5.1) mmol/L Chloride (98-107) mmol/L BUN (9-20) mg/dL Glucose (74-99) mg/dL POC Glucose (mg/dL) 162 H (70-110) mg/dL Microbiology - Last 24 Hours (Table) 10/08/24 18:12 Blood Culture - Final Blood Assessment and Plan (1) Sepsis Current Visit: Yes Status: Acute Code(s): A41.9 - SEPSIS, UNSPECIFIED ORGANISM SNOMED Code(s): 16661641 (2) Candidemia Current Visit: Yes Status: Acute Code(s): B37.7 - CANDIDAL SEPSIS SNOMED Code(s): 090977055 Plan: 1patient with a complicated history in this patient has been in the hospital for almost a month before this initial consultation on 10/08/2024 with the presentation with intractable nausea vomiting in this patient with status post Rickie-en-Y gastrojejunostomy on 09/25/2024 did have a subsequent fascial dehiscence requiring surgical repair and the patient did spike a fever on 10/06/2024 with a blood culture no positive for candidemia he did have a last CT on 10/03/2024 did not show any concern for an abscess with a possible source could be PICC line which has been there for almost a month however underlying abdominal source not done excluded. 2blood culture has been repeated from the PICC and peripheral which is growing Alethea 3-patient did have repeat CT abdominal pelvis concerning for some fluid collection General Surgery is following the patient for possible drainage procedure, 4patient is afebrile white count is trending down to continue with Eraxis has received adequate to Zosyn Dictation was produced using [employer] dictation software. please excuse any grammatical, word or spelling errors. Time with Patient: Less than 30
--- NOTE | 2024-10-15 15:52 | P.PN ---
Subjective Progress Note Date: 10/15/24 Principal diagnosis: Reason for follow-up is candidemia Patient is a 68-year-old male with multiple comorbidities and did have a PEG tube placement on 09/02/2024 subsequent admission to the hospital for intractable nausea and vomiting patient did have a Rickie-en-Y gastrojejunostomy and on 10/03/2024 and subsequent fascial dehiscence that was repaired he did spike a fever and blood cultures came back positive with Alethea prompted this consultation. On today's evaluation that is 10/15/2024, the patient continues to be afebrile, the patient is on 2 L current oxygen and breathing comfortably, the Pt currently sleepy did not answer in question no significant changes reported by the nursing staff. Patient white count normalized to 7.17, creatinine 0.55 Objective - Vital Signs Vital signs: Vital Signs Temp 97.3 F L 10/15/24 13:41 Pulse 97 10/15/24 13:41 Resp 18 10/15/24 13:41 BP 135/89 10/15/24 13:41 Pulse Ox 99 10/15/24 13:41 FiO2 Intake & Output 10/14/24 10/15/24 10/15/24 18:59 06:59 18:59 Intake Total 1011 Output Total 70 200 Balance -70 1011 -200 Weight 50 kg Intake: Intake, IV Titration 1011 Amount Calcium Gluconate 1 gm 1011 Magnesium Sulfate gm 0.5 gm In Amino Acids 5 %/ Dextrose 20 % 1,000 ml @ 80 mls/hr IV .[facility] Rx#:[id number] Output: Drainage 20 Abdomen 20 Urine 200 Emesis 50 Other: Voiding Method Diaper Diaper Urinal External Catheter External Catheter Diaper # Voids 1 4 1 - Exam GENERAL DESCRIPTION: An elderly male lying in bed in no distress RESPIRATORY SYSTEM: Unlabored breathing , decreased breath sounds at bases HEART: S1 S2 regular rate and rhythm , ABDOMEN: Soft , no tenderness EXTREMITIES: No edema feet - Labs CBC & Chem 7: 10/15/24 05:46 10/15/24 05:46 Labs: Abnormal Lab Results - Last 24 Hours (Table) 10/14/24 10/15/24 10/15/24 Range/Units 18:04 00:06 05:46 RBC (4.40-5.60) X 10*6/uL Hgb (13.0-17.0) g/dL Hct (39.6-50.0) % MCHC (32.0-37.0) g/dL RDW (11.5-14.5) % Plt Count (140-440) X 10*3/uL MPV (9.5-12.2) FL Immature Gran # (0.00-0.04) X 10*3/uL Lymphocytes # (0.90-5.00) X 10*3/uL Chloride 112 H (98-107) mmol/L BUN 32 H (9-20) mg/dL Creatinine 0.55 L (0.66-1.25) mg/dL Glucose 205 H (74-99) mg/dL POC Glucose (mg/dL) 232 H 229 H (70-110) mg/dL Calcium 8.3 L (8.4-10.2) mg/dL ALT 52 H (4-49) U/L Alkaline Phosphatase 313 H (38-126) U/L Total Protein 5.7 L (6.3-8.2) g/dL Albumin 2.4 L (3.5-5.0) g/dL 10/15/24 10/15/24 10/15/24 Range/Units 05:46 05:57 12:02 RBC 2.79 L (4.40-5.60) X 10*6/uL Hgb 8.2 L (13.0-17.0) g/dL Hct 26.7 L (39.6-50.0) % MCHC 30.7 L (32.0-37.0) g/dL RDW 15.3 H (11.5-14.5) % Plt Count 137 L (140-440) X 10*3/uL MPV 13.0 H (9.5-12.2) FL Immature Gran # 0.31 H (0.00-0.04) X 10*3/uL Lymphocytes # 0.75 L (0.90-5.00) X 10*3/uL Chloride (98-107) mmol/L BUN (9-20) mg/dL Creatinine (0.66-1.25) mg/dL Glucose (74-99) mg/dL POC Glucose (mg/dL) 210 H 196 H (70-110) mg/dL Calcium (8.4-10.2) mg/dL ALT (4-49) U/L Alkaline Phosphatase (38-126) U/L Total Protein (6.3-8.2) g/dL Albumin (3.5-5.0) g/dL Assessment and Plan (1) Sepsis Current Visit: Yes Status: Acute Code(s): A41.9 - SEPSIS, UNSPECIFIED ORGANISM SNOMED Code(s): 47045208 (2) Candidemia Current Visit: Yes Status: Acute Code(s): B37.7 - CANDIDAL SEPSIS SNOMED Code(s): 362339414 Plan: 1patient with a complicated history in this patient has been in the hospital for almost a month before this initial consultation on 10/08/2024 with the presentation with intractable nausea vomiting in this patient with status post Rickie-en-Y gastrojejunostomy on 09/25/2024 did have a subsequent fascial dehiscence requiring surgical repair and the patient did spike a fever on 10/06/2024 with a blood culture no positive for candidemia he did have a last CT on 10/03/2024 did not show any concern for an abscess with a possible source could be PICC line which has been there for almost a month however underlying abdominal source not done excluded. 2blood culture has been repeated from the PICC and peripheral which is growing Alethea 3-patient did have repeat CT abdominal pelvis concerning for some fluid collection General Surgery is following the patient for possible drainage procedure, 4patient is afebrile white count has normalized patient will be continued on Eraxis blood culture repeat has been negative so far Dictation was produced using [employer] dictation software. please excuse any grammatical, word or spelling errors. Time with Patient: Less than 30
[2024-10-15] MEDS: METOPROLOL TARTRATE 25 MG TAB PO SCH (18:07)
[2024-10-15 18:09] LABS: Glucose,Whole Blood 164 mg/dL (70-110)
[2024-10-15] MEDS: HYDROmorphone 0.5 MG/0.5 ML SYRINGE IVP PRN (18:30)
[2024-10-15 23:29] LABS: Glucose,Whole Blood 177 mg/dL (70-110)
[2024-10-16 05:45] LABS: Glucose,Whole Blood 140 mg/dL (70-110)
[2024-10-16 06:35] LABS: ALT 73 U/L (4-49); African American GFR (CKD) >90 (>60 ml/min/1.73 sqM); Albumin 2.7 g/dL (3.5-5.0); Albumin/Globulin Ratio 0.8; Anion Gap 13 mmol/L; Blood Urea Nitrogen 40 mg/dL (9-20); Calcium 9.1 mg/dL (8.4-10.2); Carbon Dioxide 17 mmol/L (22-30); Chloride 113 mmol/L (98-107); Globulin 3.5 g/dL; Glucose 146 mg/dL (74-99); Non-African American GFR(CKD) 90 (>60 ml/min/1.73 sqM); Sodium 143 mmol/L (137-145); Total Bilirubin 0.6 mg/dL (0.2-1.3); Total Protein 6.2 g/dL (6.3-8.2)
[2024-10-16 06:36] LABS: AST 62 U/L (17-59); Alkaline Phosphatase 422 U/L (38-126); Potassium 4.5 mmol/L (3.5-5.1)
[2024-10-16] MEDS: ALBUTEROL NEBULIZED 2.5 MG/3 ML INHALATION PRN (07:40)
--- NOTE | 2024-10-16 08:08 | XR ---
EXAMINATION TYPE: XR KUB DATE OF EXAM: 10/16/2024 7:50 AM COMPARISON: 09/21/2024 CLINICAL INDICATION: Male, 68 years old with history of nausea; [facility] TECHNIQUE: One radiographic view of the abdomen was obtained. FINDINGS: PEG tube in place. Contrast opacifying the small bowel in the gastric lumen. No evidence fo r extravasation of contrast. The bowel gas pattern is nonspecific without dilated loops of small or l arge bowel. . Fecal material and gas are demonstrated throughout the colon and rectum. There is no ev idence for organomegaly or pneumoperitoneum. No acute osseous process. No abnormal calcifications a re present. IMPRESSION: Contrast opacifies the gastric lumen and small bowel. [facility], , 10/16/2024 8:05 AM
[2024-10-16] MEDS: SERTRALINE 25 MG TAB PO SCH (08:15)
--- NOTE | 2024-10-16 12:02 | P.PN ---
Subjective Patient is seen for follow-up for hypernatremia. He is maintained on TPN. Sodium is 143 today and potassium 4.5. CO2 low at 17 Objective - Vital Signs Vital signs: Vital Signs Temp 98.2 F 10/16/24 07:26 Pulse 100 10/16/24 11:33 Resp 18 10/16/24 07:26 BP 131/82 10/16/24 07:26 Pulse Ox 99 10/16/24 07:26 FiO2 Intake & Output 10/15/24 10/16/24 10/16/24 18:59 06:59 18:59 Intake Total 1022 Output Total 400 300 Balance 622 -300 Weight 50 kg 51 kg Intake: Intake, IV Titration 1022 Amount Mvi, Adult No.4 with Vit 1022 K 10 ml Trace (Conc-1Ml/ Dose) 1 ml Calcium Gluconate 1 gm Magnesium Sulfate gm 0.5 gm In Amino Acids 5 %/Dextrose 20 % 1,000 ml @ 80 mls/hr IV .[facility] Rx#: [id number] Output: Drainage 200 200 Abdomen 200 200 Urine 200 100 Other: Voiding Method Urinal Urinal Urinal Diaper Diaper # Voids 3 1 - Exam Patient is awake, comfortable, no acute distress Examination of the heart S1 and S2 Examination of the lungs bilateral breath sounds are heard Abdomen is soft, dressed Examination of lower extremities shows trace edema CHIEF CRUISER exam grossly intact patient is moving all 4 extremities. - Labs CBC & Chem 7: 10/15/24 05:46 10/16/24 06:01 Labs: Abnormal Lab Results - Last 24 Hours (Table) 10/15/24 10/15/24 10/15/24 Range/Units 12:02 18:07 23:27 Chloride (98-107) mmol/L Carbon Dioxide (22-30) mmol/L BUN (9-20) mg/dL Glucose (74-99) mg/dL POC Glucose (mg/dL) 196 H 164 H 177 H (70-110) mg/dL AST (17-59) U/L ALT (4-49) U/L Alkaline Phosphatase (38-126) U/L Total Protein (6.3-8.2) g/dL Albumin (3.5-5.0) g/dL 10/16/24 10/16/24 Range/Units 05:43 06:01 Chloride 113 H (98-107) mmol/L Carbon Dioxide 17 L (22-30) mmol/L BUN 40 H (9-20) mg/dL Glucose 146 H (74-99) mg/dL POC Glucose (mg/dL) 140 H (70-110) mg/dL AST 62 H (17-59) U/L ALT 73 H (4-49) U/L Alkaline Phosphatase 422 H (38-126) U/L Total Protein 6.2 L (6.3-8.2) g/dL Albumin 2.7 L (3.5-5.0) g/dL Assessment and Plan Assessment: 1. Hypernatremia from lack of oral water intake. Sodium level 143 today. 2. SMA syndrome. Surgery following. 3. Status post J-tube placement September 25, 2024. 4. Hypokalemia from poor intake. Being replaced. 5. Fascial dehiscence with bleeding status post repair on 10/03/2024 6. Alethea bacteremia 7. Hyperkalemia, resolved with adjustment of TPN Plan: Increase acetate in TPN due to metabolic acidosis
[2024-10-16 12:12] LABS: Glucose,Whole Blood 180 mg/dL (70-110)
--- NOTE | 2024-10-16 12:39 | PN ---
PROGRESS NOTE DATE OF SERVICE: 10/15/2024 HISTORY OF PRESENT ILLNESS: This is a 68-year-old gentleman, who was admitted for several days in the hospital, had a complicated medical history. The patient has superior mesenteric artery syndrome, GJ as well as J-tube placement. The patient also had intractable nausea and vomiting. The patient had some change in mental status also. The TPN as well as IV access has been continued at this time. PAST MEDICAL HISTORY: Reviewed. REVIEW OF SYSTEMS: Fourteen-point review of systems negative except as mentioned earlier. CURRENT MEDICATIONS: Reviewed. PHYSICAL EXAMINATION: VITAL SIGNS: Pulse is 97, blood pressure 135/80, respirations 18. CHEST: Few scattered rhonchi. ABDOMEN: Soft, scaphoid. LEGS: No edema. No swelling. NERVOUS SYSTEM: No focal deficit. LABORATORY DATA: Hemoglobin 8.2. Rest of the labs are noted. MICROBIOLOGY: Alethea albicans in the catheter tip also. Blood cultures also showed Alethea albicans. ASSESSMENT: 1. Candidemia and Alethea albicans sepsis. 2. Superior mesenteric artery syndrome, status post J-tube placement. 3. Status post PEG tube placement. 4. Status post PICC line catheter. 5. Facial wound dehiscence. 6. Bilateral aspiration pneumonia. 7. Hypertension. 8. Hyperlipidemia. 9. Multiple complex medical issues. RECOMMENDATIONS AND DISCUSSION: I recommend to continue current management and continue symptomatic treatment, otherwise continue the antifungal medications. Closely follow with multiple consultations, symptomatic treatment. Prognosis guarded. Eventually ECF rehab. Further recommendations to follow. MMODL / IJN: [id number] /
--- NOTE | 2024-10-16 13:42 | CDI ---
Documentation Clarification Form Date: 10/15/2024 09:06:00 AM From: Bobbi Bill Phone: [phone] Admit Date: 09/09/2024 11:23:00 PM Patient Name: Finn Alex Visit Number: [id number] Discharge Date: ATTENTION: The Clinical Documentation Specialists (CDI) and [facility] Coding Staff appreciate your assistance in clarifying documentation. Please respond to the clarification below the line at the bottom and electronically sign. The CDI & [facility] Coding staff will review the response and follow-up if needed. Please note: Queries are made part of the Legal Health Record. If you have any questions, please contact the author of this message via ITS. Doctor. Marlin Yahairakev Sepsis with blood culture positive for candidemia possible source could be PICC line is documented in the ID consult starting on 10/08/24 which may lack sufficient clinical evidence/support in the medical record. Additional clarification is requested. History/Risk Factors: Chronic nausea and vomiting, SMA syndrome, Hypertension, Clinical Indicators: [id number] recent had EGD and a PEG tube placement on 09/02/2024. Rickie-en-Y gastrojejunostomy and on 10/03/2024 patient noted to have a fascial dehiscence with repair. 10/08 ID: "The patient did spike a fever of 102 F on 10/06/2024 patient did have blood culture drawn which came back positive with yeast. 1) Sepsis 2) Candidemia" 10/06 VS Temp 102 HR 123 BP 124/82 94% RA 10/06 Labs Na 148 Cl 116 BUN 27 MG 2.4 (10/05 WBC 13.2) 10/06 CXR New patchy left basilar acute infiltrate and /or atelectasis 10/06 Blood culture positive ines albicans 10/08 blood culture Negative 10/11 PICC Catheter Tip Culture (Preliminary) Ines albicans 10/14 Medicine/attending progress note: Catheter tip culture is coming back positive for ines and source of bacteremia. He continues on IV Eraxis Treatment: Anidulafungin 100 MG IVPB Daily 10/08- 10/16 Zosyn 3.375 GM IVPB Q8HRS 09/16-10/11 Please clarify if Candidal Sepsis possible secondary to PICC line is a valid diagnosis? [ x ] Yes, Candidal Sepsis due to PICC line is a valid diagnosis [ ] No, Candidal Sepsis due to PICC line is ruled out [ ] Bacteremia due to PICC line infection only, No Sepsis [ ] Other (please specify diagnosis) [ ] Unable to determine (Template Last Revised: November 2023) MTDD
--- NOTE | 2024-10-16 13:55 | P.PN ---
Subjective Progress Note Date: 10/16/24 SURGICAL PROGRESS NOTE CHIEF COMPLAINT: Recurrent nausea and vomiting HISTORY OF PRESENT ILLNESS: Status post repair of fascial dehiscence upper incision of the midline incision on 10/03/24. Status post Rickie-en-Y gastrojejunostomy on 09/25/24. Patient sitting at bedside chair. PEG tube to drainage. PEG O gram with Gastrografin reports contrast opacifies the gastric lumen and small bowel. PHYSICAL EXAM: VITAL SIGNS: Reviewed. GENERAL: Well-developed in no acute distress. ABDOMEN: Soft. Nondistended. Abdominal binder in place. PEG tube to drainage with mobile developer bilious output NEUROLOGIC: Alert and oriented. Cranial nerves II through XII grossly intact. ASSESSMENT: 1. SMA syndrome 2. Upper GI bleed with bright red blood and coffee-ground emesis. now resolved 3. Intractable nausea and vomiting 4. History of esophageal dysmotility disorder 5. Hiatal hernia 6. Esophagitis 7. Severe protein calorie malnutrition 8. Leukocytosis is reactive from surgery 9. Anemia secondary to malnutrition. 10. Fascial dehiscence of incision status post repair PLAN: -Peg o gram reports that contrast opacifies the gastric lumen and small bowel. Will start tube feeds slowly at 20 mL/h and monitor -Continue TPN for nutrition support until tube feeds are tolerated -Antibiotics per ID service -DVT prophylaxis subcu heparin Physician Life Care Planner note has been reviewed by physician. Signing provider agrees with the documented findings, assessment, and plan of care. Objective - Vital Signs Vital signs: Vital Signs Temp 98.2 F 10/16/24 07:26 Pulse 100 10/16/24 11:33 Resp 18 10/16/24 07:26 BP 131/82 10/16/24 07:26 Pulse Ox 99 10/16/24 07:26 FiO2 Intake & Output 10/15/24 10/16/24 10/16/24 18:59 06:59 18:59 Intake Total 1022 Output Total 400 300 Balance 622 -300 Weight 50 kg 51 kg Intake: Intake, IV Titration 1022 Amount Mvi, Adult No.4 with Vit 1022 K 10 ml Trace (Conc-1Ml/ Dose) 1 ml Calcium Gluconate 1 gm Magnesium Sulfate gm 0.5 gm In Amino Acids 5 %/Dextrose 20 % 1,000 ml @ 80 mls/hr IV .BY DURATION [facility] Rx#: [id number] Output: Drainage 200 200 Abdomen 200 200 Urine 200 100 Other: Voiding Method Urinal Urinal Urinal Diaper Diaper # Voids 3 1 - Labs CBC & Chem 7: 10/15/24 05:46 10/16/24 06:01 Labs: Abnormal Lab Results - Last 24 Hours (Table) 10/15/24 10/15/24 10/16/24 Range/Units 18:07 23:27 05:43 Chloride (98-107) mmol/L Carbon Dioxide (22-30) mmol/L BUN (9-20) mg/dL Glucose (74-99) mg/dL POC Glucose (mg/dL) 164 H 177 H 140 H (70-110) mg/dL AST (17-59) U/L ALT (4-49) U/L Alkaline Phosphatase (38-126) U/L Total Protein (6.3-8.2) g/dL Albumin (3.5-5.0) g/dL 10/16/24 10/16/24 Range/Units 06:01 12:10 Chloride 113 H (98-107) mmol/L Carbon Dioxide 17 L (22-30) mmol/L BUN 40 H (9-20) mg/dL Glucose 146 H (74-99) mg/dL POC Glucose (mg/dL) 180 H (70-110) mg/dL AST 62 H (17-59) U/L ALT 73 H (4-49) U/L Alkaline Phosphatase 422 H (38-126) U/L Total Protein 6.2 L (6.3-8.2) g/dL Albumin 2.7 L (3.5-5.0) g/dL
[2024-10-16 14:53] LABS: Basophils # (A) 0.04 10*3/uL (0.00-0.10); Basophils % (A) 0.3 %; Eosinophils # (A) 0.38 10*3/uL (0.04-0.35); HCT 27.5 % (39.6-50.0); HGB 8.9 g/dL (13.0-17.0); Lymphocytes % (A) 7.9 %; MCH 30.6 pg (27.0-32.0); MCHC 32.4 g/dL (32.0-37.0); MCV 94.5 fL (80.0-97.0); Mean Platelet Volume 11.3 fL (9.5-12.2); Monocytes # (A) 0.56 10*3/uL (0.20-1.00); Monocytes % (A) 4.4 %; Neutrophils # (A) 10.28 10*3/uL (1.80-7.70); Neutrophils % (A) 81.7 %; Platelet Count 419 10*3/uL (140-440); RBC 2.91 10*6/uL (4.40-5.60); RDW 15.2 % (11.5-14.5)
[2024-10-16 18:04] LABS: Glucose,Whole Blood 206 mg/dL (70-110)
[2024-10-17 00:01] LABS: Glucose,Whole Blood 187 mg/dL (70-110)
[2024-10-17 05:34] LABS: Glucose,Whole Blood 203 mg/dL (70-110)
[2024-10-17 06:46] LABS: African American GFR (CKD) >90 (>60 ml/min/1.73 sqM); Anion Gap 10 mmol/L; Blood Urea Nitrogen 35 mg/dL (9-20); Carbon Dioxide 21 mmol/L (22-30); Chloride 108 mmol/L (98-107); Glucose 195 mg/dL (74-99); Potassium 3.1 mmol/L (3.5-5.1); Sodium 139 mmol/L (137-145)
[2024-10-17 06:47] LABS: ALT 64 U/L (4-49); AST 34 U/L (17-59); Albumin 2.5 g/dL (3.5-5.0); Albumin/Globulin Ratio 0.8; Alkaline Phosphatase 389 U/L (38-126); Calcium 8.7 mg/dL (8.4-10.2); Globulin 3.1 g/dL; Magnesium 2.1 mg/dL (1.6-2.3); Non-African American GFR(CKD) >90 (>60 ml/min/1.73 sqM); Total Bilirubin 0.3 mg/dL (0.2-1.3); Total Protein 5.6 g/dL (6.3-8.2)
[2024-10-17] MEDS ORDERED: Potassium Replacement Protocol 1 EACH MISC MISCELLANE PRN ×2 (06:58→18:05)
[2024-10-17 08:23] LABS: Basophils # (A) 0.05 X 10*3/uL (0.00-0.10); Basophils % (A) 0.5 %; Eosinophils # (A) 0.29 X 10*3/uL (0.04-0.35); HGB 8.6 g/dL (13.0-17.0); Lymphocytes # (A) 0.98 X 10*3/uL (0.90-5.00); Lymphocytes % (A) 10.1 %; MCH 29.9 pg (27.0-32.0); MCHC 31.9 g/dL (32.0-37.0); MCV 93.8 FL (80.0-97.0); Mean Platelet Volume 11.8 FL (9.5-12.2); Monocytes # (A) 0.53 X 10*3/uL (0.20-1.00); Monocytes % (A) 5.4 %; NRBC Per 100 WBC 0 X 10*3/uL (0.00-0.01); Neutrophils # (A) 7.59 X 10*3/uL (1.80-7.70); Platelet Count 370 X 10*3/uL (140-440); RBC 2.88 X 10*6/uL (4.40-5.60); RDW 14.8 % (11.5-14.5); WBC 9.73 X 10*3/uL (4.50-10.00)
[2024-10-17] MEDS: POTASSIUM CHLORIDE 20 MEQ in WATER FOR INJECTION 1 100ML.BAG IVPB SCH (09:55)
--- NOTE | 2024-10-17 10:31 | PN ---
PROGRESS NOTE DATE OF SERVICE: 10/16/2024 HISTORY OF PRESENT ILLNESS: This 68-year-old gentleman, who was admitted with candidemia and Alethea albicans sepsis, also had multiple medical issues include SMA syndrome. The patient had a J- tube currently. The patient had coffee-ground emesis, which was resolved. The patient currently had a PEG tube to drainage. No chest pain, no palpitation. OBJECTIVE: VITAL SIGNS: Pulse is 100, blood pressure 130/82, and respirations 18. CHEST: Clear to auscultation. CARDIAC: S1, S2. ABDOMEN: Soft. LABORATORY DATA: Reviewed. ASSESSMENT: 1. Alethea albicans sepsis. 2. Superior mesenteric artery syndrome, status post PEG tube and drainage. 3. Status post PICC line. 4. Bilateral aspiration. 5. Hypertension. 6. Hyperlipidemia. 7. Multiple complex medical issues. RECOMMENDATION: Continue current management. Continue to follow closely with Surgery. Guarded prognosis. Repeat labs. Continue TPN. Further recommendation is to follow. MMODL / IJN: [id number] /
--- NOTE | 2024-10-17 10:40 | P.PN ---
Subjective Progress Note Date: 10/17/24 SURGICAL PROGRESS NOTE CHIEF COMPLAINT: Recurrent nausea and vomiting HISTORY OF PRESENT ILLNESS: Status post repair of fascial dehiscence upper incision of the midline incision on 10/03/24. Status post Rickie-en-Y gastrojejunostomy on 09/25/24. PEG O gram with Gastrografin reports contrast opacifies the gastric lumen and small bowel. Tube feeds started yesterday. Patient did not tolerate tube feeds. He had vomiting through the night and emesis this morning. The emesis in the basin is bile in color. Afebrile. Hgb 8.6 PHYSICAL EXAM: VITAL SIGNS: Reviewed. GENERAL: no acute distress. ABDOMEN: Soft. Nondistended. Abdominal binder in place. Incisional dressing is clean dry and intact NEUROLOGIC: Awake. Laying in bed. ASSESSMENT: 1. SMA syndrome 2. Upper GI bleed with bright red blood and coffee-ground emesis. now resolved 3. Intractable nausea and vomiting 4. Chronic esophageal dysmotility disorder 5. Hiatal hernia 6. Esophagitis 7. Severe protein calorie malnutrition 8. Leukocytosis is reactive from surgery 9. Anemia secondary to malnutrition. 10. Fascial dehiscence of incision status post repair PLAN: -Keep tube feeds on hold -Place PEG tube to drainage -Continue TPN -Antibiotics per ID service -DVT prophylaxis subcu heparin Physician Coder note has been reviewed by physician. Signing provider agrees with the documented findings, assessment, and plan of care. Objective - Vital Signs Vital signs: Vital Signs Temp 98.3 F 10/17/24 07:53 Pulse 88 10/17/24 07:53 Resp 17 10/17/24 07:53 BP 132/79 10/17/24 07:53 Pulse Ox 100 10/17/24 07:53 FiO2 Intake & Output 10/16/24 10/17/24 10/17/24 18:59 06:59 18:59 Intake Total 1022 Output Total 1050 30 Balance -28 -30 Weight 51 kg 53.5 kg Intake: Intake, IV Titration 1022 Amount Mvi, Adult No.4 with Vit 1022 K 10 ml Trace (Conc-1Ml/ Dose) 1 ml Calcium Gluconate 1 gm Magnesium Sulfate gm 0.5 gm In Amino Acids 5 %/Dextrose 20 % 1,000 ml @ 80 mls/hr IV .BY DURATION [facility] Rx#: [id number] Tube Feeding 0 Output: Drainage 200 Abdomen 200 Urine 750 Emesis 100 30 Other: Voiding Method Urinal Urinal - Labs CBC & Chem 7: 10/17/24 06:07 10/17/24 06:07 Labs: Abnormal Lab Results - Last 24 Hours (Table) 10/16/24 10/16/24 10/16/24 Range/Units 12:10 14:34 18:02 WBC 12.60 H (4.50-10.00) 10*3/uL RBC 2.91 L (4.40-5.60) 10*6/uL Hgb 8.9 L (13.0-17.0) g/dL Hct 27.5 L (39.6-50.0) % MCHC (32.0-37.0) g/dL RDW 15.2 H (11.5-14.5) % Immature Gran # 0.34 H (0.00-0.04) 10*3/uL Neutrophils # 10.28 H (1.80-7.70) 10*3/uL Eosinophils # 0.38 H (0.04-0.35) 10*3/uL Potassium (3.5-5.1) mmol/L Chloride (98-107) mmol/L Carbon Dioxide (22-30) mmol/L BUN (9-20) mg/dL Creatinine (0.66-1.25) mg/dL Glucose (74-99) mg/dL POC Glucose (mg/dL) 180 H 206 H (70-110) mg/dL ALT (4-49) U/L Alkaline Phosphatase (38-126) U/L Total Protein (6.3-8.2) g/dL Albumin (3.5-5.0) g/dL 10/16/24 10/17/24 10/17/24 Range/Units 23:59 05:15 06:07 WBC (4.50-10.00) 10*3/uL RBC (4.40-5.60) 10*6/uL Hgb (13.0-17.0) g/dL Hct (39.6-50.0) % MCHC (32.0-37.0) g/dL RDW (11.5-14.5) % Immature Gran # (0.00-0.04) 10*3/uL Neutrophils # (1.80-7.70) 10*3/uL Eosinophils # (0.04-0.35) 10*3/uL Potassium 3.1 L (3.5-5.1) mmol/L Chloride 108 H (98-107) mmol/L Carbon Dioxide 21 L (22-30) mmol/L BUN 35 H (9-20) mg/dL Creatinine 0.64 L (0.66-1.25) mg/dL Glucose 195 H (74-99) mg/dL POC Glucose (mg/dL) 187 H 203 H (70-110) mg/dL ALT 64 H (4-49) U/L Alkaline Phosphatase 389 H (38-126) U/L Total Protein 5.6 L (6.3-8.2) g/dL Albumin 2.5 L (3.5-5.0) g/dL 10/17/24 Range/Units 06:07 WBC (4.50-10.00) 10*3/uL RBC 2.88 L (4.40-5.60) 10*6/uL Hgb 8.6 L (13.0-17.0) g/dL Hct 27.0 L (39.6-50.0) % MCHC 31.9 L (32.0-37.0) g/dL RDW 14.8 H (11.5-14.5) % Immature Gran # 0.29 H (0.00-0.04) 10*3/uL Neutrophils # (1.80-7.70) 10*3/uL Eosinophils # (0.04-0.35) 10*3/uL Potassium (3.5-5.1) mmol/L Chloride (98-107) mmol/L Carbon Dioxide (22-30) mmol/L BUN (9-20) mg/dL Creatinine (0.66-1.25) mg/dL Glucose (74-99) mg/dL POC Glucose (mg/dL) (70-110) mg/dL ALT (4-49) U/L Alkaline Phosphatase (38-126) U/L Total Protein (6.3-8.2) g/dL Albumin (3.5-5.0) g/dL
[2024-10-17 12:21] LABS: Glucose,Whole Blood 189 mg/dL (70-110)
[2024-10-17 17:52] LABS: Glucose,Whole Blood 197 mg/dL (70-110)
[2024-10-17] MEDS ORDERED: POTASSIUM CHLORIDE 10 MEQ in WATER FOR INJECTION 1 100ML.BAG IVPB SCH (18:15)
[2024-10-17] MEDS: POTASSIUM CHLORIDE 20 MEQ in WATER FOR INJECTION 1 100ML.BAG IVPB ONE (19:03)
--- NOTE | 2024-10-17 21:43 | P.PN ---
Subjective Patient is seen for follow-up for hypernatremia. He is maintained on TPN. Sodium is 139 today and potassium was low today, continue being replaced. CO2 improved to 21 Objective - Vital Signs Vital signs: Vital Signs Temp 98.4 F 10/17/24 20:00 Pulse 80 10/17/24 20:00 Resp 16 10/17/24 20:00 BP 123/79 10/17/24 20:00 Pulse Ox 99 10/17/24 20:00 FiO2 Intake & Output 10/17/24 10/17/24 10/18/24 06:59 18:59 06:59 Intake Total 1011 Output Total 30 250 Balance 981 -250 Weight 53.5 kg Intake: Intake, IV Titration 1011 Amount Calcium Gluconate 1 gm 1011 Magnesium Sulfate gm 0.5 gm In Amino Acids 5 %/ Dextrose 20 % 1,000 ml @ 80 mls/hr IV .BY DURATION [facility] Rx#:[id number] Output: Urine 250 Emesis 30 Other: Voiding Method Urinal Urinal Urinal Diaper Diaper # Voids 1 - Exam Patient is awake, comfortable, no acute distress Examination of the heart S1 and S2 Examination of the lungs bilateral breath sounds are heard Abdomen is soft, dressed Examination of lower extremities shows trace edema FORM DRAFTER exam grossly intact patient is moving all 4 extremities. - Labs CBC & Chem 7: 10/17/24 06:07 10/17/24 15:58 Labs: Abnormal Lab Results - Last 24 Hours (Table) 10/16/24 10/17/24 10/17/24 Range/Units 23:59 05:15 06:07 RBC (4.40-5.60) X 10*6/uL Hgb (13.0-17.0) g/dL Hct (39.6-50.0) % MCHC (32.0-37.0) g/dL RDW (11.5-14.5) % Immature Gran # (0.00-0.04) X 10*3/uL Potassium 3.1 L (3.5-5.1) mmol/L Chloride 108 H (98-107) mmol/L Carbon Dioxide 21 L (22-30) mmol/L BUN 35 H (9-20) mg/dL Creatinine 0.64 L (0.66-1.25) mg/dL Glucose 195 H (74-99) mg/dL POC Glucose (mg/dL) 187 H 203 H (70-110) mg/dL ALT 64 H (4-49) U/L Alkaline Phosphatase 389 H (38-126) U/L Total Protein 5.6 L (6.3-8.2) g/dL Albumin 2.5 L (3.5-5.0) g/dL 10/17/24 10/17/24 10/17/24 Range/Units 06:07 12:18 17:50 RBC 2.88 L (4.40-5.60) X 10*6/uL Hgb 8.6 L (13.0-17.0) g/dL Hct 27.0 L (39.6-50.0) % MCHC 31.9 L (32.0-37.0) g/dL RDW 14.8 H (11.5-14.5) % Immature Gran # 0.29 H (0.00-0.04) X 10*3/uL Potassium (3.5-5.1) mmol/L Chloride (98-107) mmol/L Carbon Dioxide (22-30) mmol/L BUN (9-20) mg/dL Creatinine (0.66-1.25) mg/dL Glucose (74-99) mg/dL POC Glucose (mg/dL) 189 H 197 H (70-110) mg/dL ALT (4-49) U/L Alkaline Phosphatase (38-126) U/L Total Protein (6.3-8.2) g/dL Albumin (3.5-5.0) g/dL Assessment and Plan Assessment: 1. Hypernatremia from lack of oral water intake. Sodium level 139 today. 2. SMA syndrome. Surgery following. 3. Status post J-tube placement September 25, 2024. 4. Hypokalemia from poor intake. Being replaced. 5. Fascial dehiscence with bleeding status post repair on 10/03/2024 6. Alethea bacteremia 7. Hyperkalemia, resolved with adjustment of TPN Plan: Repeat labs in a.m. and adjust TPN accordingly.
[2024-10-18 00:17] LABS: Glucose,Whole Blood 191 mg/dL (70-110)
--- NOTE | 2024-10-18 02:30 | PN ---
PROGRESS NOTE DATE OF SERVICE: 10/17/2024 This is a 68-year-old gentleman, who was admitted with Alethea albicans sepsis, who also had superior mesenteric artery syndrome. The patient is not tolerating anything p.o. The patient had recurrent nausea and vomiting. Surgery has seen the patient and recommended that the patient be transferred to a tertiary care center for the patient's failure to thrive and continued upper GI bleeding and upper GI symptoms. PAST MEDICAL HISTORY: Reviewed. REVIEW OF SYSTEMS: Fourteen-point review of systems negative except as mentioned earlier. CURRENT MEDICATIONS: Reviewed. PHYSICAL EXAMINATION: VITAL SIGNS: Pulse is 81, blood pressure 158/79, respirations 16. CHEST: A few scattered rhonchi. ABDOMEN: Soft, nontender. No guarding or rigidity. LABORATORY DATA: Reviewed. ASSESSMENT: 1. Superior mesenteric artery syndrome with continued nausea, vomiting, and intolerance of PEG tube feeds and no PEG tube drainage. 2. Alethea albicans sepsis. 3. Status post PICC line. 4. Bilateral aspiration. 5. Hypertension. 6. Hyperlipidemia. 7. Multiple complex medical issues. RECOMMENDATIONS: Recommended to continue with current management. Continue with symptomatic treatment. Closely follow with surgery. As per surgery's recommendation, I would recommend transfer to a tertiary care center. Potassium and magnesium evaluation supplementation. Prognosis is guarded because of multiple complex medical conditions. Further recommendations to follow. See orders for details. MMODL / IJN: [id number] /
[2024-10-18 05:55] LABS: Glucose,Whole Blood 174 mg/dL (70-110)
[2024-10-18 06:32] LABS: African American GFR (CKD) >90 (>60 ml/min/1.73 sqM); Anion Gap 10 mmol/L; Blood Urea Nitrogen 32 mg/dL (9-20); Calcium 8.8 mg/dL (8.4-10.2); Carbon Dioxide 18 mmol/L (22-30); Chloride 110 mmol/L (98-107); Glucose 174 mg/dL (74-99); Magnesium 1.9 mg/dL (1.6-2.3); Non-African American GFR(CKD) >90 (>60 ml/min/1.73 sqM); Phosphorus 2.1 mg/dL (2.5-4.5); Potassium 3.4 mmol/L (3.5-5.1); Sodium 138 mmol/L (137-145)
[2024-10-18 06:43] LABS: Basophils # (A) 0.07 10*3/uL (0.00-0.10); Basophils % (A) 0.5 %; Eosinophils # (A) 0.22 10*3/uL (0.04-0.35); Eosinophils % (A) 1.6 %; HCT 27.8 % (39.6-50.0); HGB 8.8 g/dL (13.0-17.0); Lymphocytes # (A) 1.08 10*3/uL (0.90-5.00); Lymphocytes % (A) 7.7 %; MCH 30.6 pg (27.0-32.0); MCHC 31.7 g/dL (32.0-37.0); MCV 96.5 fL (80.0-97.0); Mean Platelet Volume 11.2 fL (9.5-12.2); Monocytes # (A) 0.67 10*3/uL (0.20-1.00); Monocytes % (A) 4.8 %; Neutrophils # (A) 11.68 10*3/uL (1.80-7.70); Neutrophils % (A) 83.5 %; RBC 2.88 10*6/uL (4.40-5.60); RDW 15.1 % (11.5-14.5); WBC 13.99 10*3/uL (4.50-10.00)
[2024-10-18 06:44] LABS: Platelet Count 372 10*3/uL (140-440)
[2024-10-18] MEDS: POTASSIUM CHLORIDE 20 MEQ in WATER FOR INJECTION 1 100ML.BAG IVPB SCH ×2 (09:43→19:13)
[2024-10-18] MEDS: SODIUM PHOSPHATE 15 MMOL in DEXTROSE 5% IN WATER 250 ML IVPB ONE (11:26)
--- NOTE | 2024-10-18 12:16 | P.PN ---
Subjective Progress Note Date: 10/18/24 SURGICAL PROGRESS NOTE CHIEF COMPLAINT: Recurrent nausea and vomiting HISTORY OF PRESENT ILLNESS: Status post repair of fascial dehiscence upper incision of the midline incision on 10/03/24. Status post Rickie-en-Y gastrojejunostomy on 09/25/24. PEG O gram with Gastrografin reports contrast opacifies the gastric lumen and small bowel. Patient's PEG tube is to drainage. He did not tolerate tube feeds. He is in transfer process to [facility]. Awaiting a bed. Afebrile. WBC 13.9 Hgb 8.8 PHYSICAL EXAM: VITAL SIGNS: Reviewed. GENERAL: no acute distress. Laying in bed ABDOMEN: Soft. Nondistended. Abdominal binder in place. PEG tube to drainage ASSESSMENT: 1. SMA syndrome 2. Upper GI bleed with bright red blood and coffee-ground emesis. now resolved 3. Intractable nausea and vomiting 4. Chronic esophageal dysmotility disorder 5. Hiatal hernia 6. Esophagitis 7. Severe protein calorie malnutrition 8. Leukocytosis is reactive from surgery 9. Anemia secondary to malnutrition. 10. Fascial dehiscence of incision status post repair 11. Failure to thrive PLAN: -Transfer to [facility] in progress. Awaiting bed availability -Keep tube feeds on hold -Place PEG tube to drainage -Continue TPN -Antibiotics per ID service -DVT prophylaxis subcu heparin Physician Fire Tower Keeper note has been reviewed by physician. Signing provider agrees with the documented findings, assessment, and plan of care. Objective - Vital Signs Vital signs: Vital Signs Temp 98.1 F 10/18/24 08:00 Pulse 100 10/18/24 08:00 Resp 15 10/18/24 08:00 BP 134/75 10/18/24 08:00 Pulse Ox 100 10/18/24 08:00 FiO2 Intake & Output 10/17/24 10/18/24 10/18/24 18:59 06:59 18:59 Intake Total 1022 Output Total 250 Balance 772 Weight 52.5 kg Intake: Intake, IV Titration 1022 Amount Mvi, Adult No.4 with Vit 1022 K 10 ml Trace (Conc-1Ml/ Dose) 1 ml Calcium Gluconate 1 gm Magnesium Sulfate gm 0.5 gm In Amino Acids 5 %/Dextrose 20 % 1,000 ml @ 80 mls/hr IV .BY DURATION [facility] Rx#: [id number] Output: Urine 250 Other: Voiding Method Urinal Urinal Diaper Diaper # Voids 1 - Labs CBC & Chem 7: 10/18/24 06:06 10/18/24 06:06 Labs: Abnormal Lab Results - Last 24 Hours (Table) 10/17/24 10/17/24 10/18/24 Range/Units 12:18 17:50 00:16 WBC (4.50-10.00) 10*3/uL RBC (4.40-5.60) 10*6/uL Hgb (13.0-17.0) g/dL Hct (39.6-50.0) % MCHC (32.0-37.0) g/dL RDW (11.5-14.5) % Immature Gran # (0.00-0.04) 10*3/uL Neutrophils # (1.80-7.70) 10*3/uL Potassium (3.5-5.1) mmol/L Chloride (98-107) mmol/L Carbon Dioxide (22-30) mmol/L BUN (9-20) mg/dL Creatinine (0.66-1.25) mg/dL Glucose (74-99) mg/dL POC Glucose (mg/dL) 189 H 197 H 191 H (70-110) mg/dL Phosphorus (2.5-4.5) mg/dL 10/18/24 10/18/24 10/18/24 Range/Units 05:54 06:06 06:06 WBC 13.99 H (4.50-10.00) 10*3/uL RBC 2.88 L (4.40-5.60) 10*6/uL Hgb 8.8 L (13.0-17.0) g/dL Hct 27.8 L (39.6-50.0) % MCHC 31.7 L (32.0-37.0) g/dL RDW 15.1 H (11.5-14.5) % Immature Gran # 0.27 H (0.00-0.04) 10*3/uL Neutrophils # 11.68 H (1.80-7.70) 10*3/uL Potassium 3.4 L (3.5-5.1) mmol/L Chloride 110 H (98-107) mmol/L Carbon Dioxide 18 L (22-30) mmol/L BUN 32 H (9-20) mg/dL Creatinine 0.54 L (0.66-1.25) mg/dL Glucose 174 H (74-99) mg/dL POC Glucose (mg/dL) 174 H (70-110) mg/dL Phosphorus 2.1 L (2.5-4.5) mg/dL
[2024-10-18 12:35] LABS: Glucose,Whole Blood 225 mg/dL (70-110)
--- NOTE | 2024-10-18 13:06 | P.PN ---
Subjective Progress Note Date: 10/16/24 Principal diagnosis: Reason for follow-up is candidemia Patient is a 68-year-old male with multiple comorbidities and did have a PEG tube placement on 09/02/2024 subsequent admission to the hospital for intractable nausea and vomiting patient did have a Rickie-en-Y gastrojejunostomy and on 10/03/2024 and subsequent fascial dehiscence that was repaired he did spike a fever and blood cultures came back positive with Alethea prompted this consultation. On today's evaluation that is 10/16/2024, Patient is afebrile patient is currently on 2 L nasal oxygen, denies having any shortness of breath, the patient denies any chest pain or cough, the patient denies any nausea vomiting. Abdominal discomfort no other changes reported. Patient white count slightly up to 12.60 and a creatinine 0.87 Objective - Vital Signs Vital signs: Vital Signs Temp 98.2 F 10/16/24 07:26 Pulse 100 10/16/24 11:33 Resp 18 10/16/24 07:26 BP 131/82 10/16/24 07:26 Pulse Ox 99 10/16/24 07:26 FiO2 Intake & Output 10/15/24 10/16/24 10/16/24 18:59 06:59 18:59 Intake Total 1022 Output Total 400 300 Balance 622 -300 Weight 50 kg 51 kg Intake: Intake, IV Titration 1022 Amount Mvi, Adult No.4 with Vit 1022 K 10 ml Trace (Conc-1Ml/ Dose) 1 ml Calcium Gluconate 1 gm Magnesium Sulfate gm 0.5 gm In Amino Acids 5 %/Dextrose 20 % 1,000 ml @ 80 mls/hr IV .BY DURATION [facility] Rx#: [id number] Output: Drainage 200 200 Abdomen 200 200 Urine 200 100 Other: Voiding Method Urinal Urinal Urinal Diaper Diaper # Voids 3 1 - Exam GENERAL DESCRIPTION: An elderly male lying in bed in no distress RESPIRATORY SYSTEM: Unlabored breathing , decreased breath sounds at bases HEART: S1 S2 regular rate and rhythm , ABDOMEN: Soft , no tenderness EXTREMITIES: No edema feet - Labs CBC & Chem 7: 10/18/24 06:06 10/18/24 06:06 Labs: Abnormal Lab Results - Last 24 Hours (Table) 10/15/24 10/15/24 10/16/24 Range/Units 18:07 23:27 05:43 Chloride (98-107) mmol/L Carbon Dioxide (22-30) mmol/L BUN (9-20) mg/dL Glucose (74-99) mg/dL POC Glucose (mg/dL) 164 H 177 H 140 H (70-110) mg/dL AST (17-59) U/L ALT (4-49) U/L Alkaline Phosphatase (38-126) U/L Total Protein (6.3-8.2) g/dL Albumin (3.5-5.0) g/dL 10/16/24 10/16/24 Range/Units 06:01 12:10 Chloride 113 H (98-107) mmol/L Carbon Dioxide 17 L (22-30) mmol/L BUN 40 H (9-20) mg/dL Glucose 146 H (74-99) mg/dL POC Glucose (mg/dL) 180 H (70-110) mg/dL AST 62 H (17-59) U/L ALT 73 H (4-49) U/L Alkaline Phosphatase 422 H (38-126) U/L Total Protein 6.2 L (6.3-8.2) g/dL Albumin 2.7 L (3.5-5.0) g/dL Assessment and Plan (1) Sepsis Current Visit: Yes Status: Acute Code(s): A41.9 - SEPSIS, UNSPECIFIED ORGANISM SNOMED Code(s): 32306439 (2) Candidemia Current Visit: Yes Status: Acute Code(s): B37.7 - CANDIDAL SEPSIS SNOMED Code(s): 107918584 Plan: 1patient with a complicated history in this patient has been in the hospital for almost a month before this initial consultation on 10/08/2024 with the presentation with intractable nausea vomiting in this patient with status post Rickie-en-Y gastrojejunostomy on 09/25/2024 did have a subsequent fascial dehiscence requiring surgical repair and the patient did spike a fever on 10/06/2024 with a blood culture no positive for candidemia he did have a last CT on 10/03/2024 did not show any concern for an abscess with a possible source could be PICC line which has been there for almost a month however underlying abdominal source not done excluded. 2blood culture has been repeated from the PICC which is growing Alethea and peripheral blood pressure has been negative 3-patient did have repeat CT abdominal pelvis concerning for some fluid collection General Surgery is following the patient for possible drainage procedure or transfer to the tertiary care, 4patient is afebrile white count normalized yesterday slightly up today we will monitor closely for now continue with Eraxis Dictation was produced using [employer] dictation software. please excuse any grammatical, word or spelling errors. Time with Patient: Less than 30
--- NOTE | 2024-10-18 13:07 | P.PN ---
Subjective Progress Note Date: 10/17/24 Principal diagnosis: Reason for follow-up is candidemia Patient is a 68-year-old male with multiple comorbidities and did have a PEG tube placement on 09/02/2024 subsequent admission to the hospital for intractable nausea and vomiting patient did have a Rickie-en-Y gastrojejunostomy and on 10/03/2024 and subsequent fascial dehiscence that was repaired he did spike a fever and blood cultures came back positive with Alethea prompted this consultation. On today's evaluation that is 10/17/2024, patient has been afebrile, patient is breathing comfortably and is currently on 2 L nasal oxygen, patient denies having any chest pain and cough, patient denies nausea vomiting or abdominal discomfort no other changes. Patient white count normalized to 9.73, creatinine 0.64 Objective - Vital Signs Vital signs: Vital Signs Temp 98.4 F 10/17/24 13:02 Pulse 81 10/17/24 13:02 Resp 16 10/17/24 13:02 BP 128/79 10/17/24 13:02 Pulse Ox 100 10/17/24 13:02 FiO2 Intake & Output 10/16/24 10/17/24 10/17/24 18:59 06:59 18:59 Intake Total 1022 Output Total 1050 30 Balance -28 -30 Weight 51 kg 53.5 kg Intake: Intake, IV Titration 1022 Amount Mvi, Adult No.4 with Vit 1022 K 10 ml Trace (Conc-1Ml/ Dose) 1 ml Calcium Gluconate 1 gm Magnesium Sulfate gm 0.5 gm In Amino Acids 5 %/Dextrose 20 % 1,000 ml @ 80 mls/hr IV .BY DURATION [facility] Rx#: [id number] Tube Feeding 0 Output: Drainage 200 Abdomen 200 Urine 750 Emesis 100 30 Other: Voiding Method Urinal Urinal Urinal Diaper # Voids 2 - Exam GENERAL DESCRIPTION: An elderly male lying in bed in no distress RESPIRATORY SYSTEM: Unlabored breathing , decreased breath sounds at bases HEART: S1 S2 regular rate and rhythm , ABDOMEN: Soft , no tenderness EXTREMITIES: No edema feet - Labs CBC & Chem 7: 10/18/24 06:06 10/18/24 06:06 Labs: Abnormal Lab Results - Last 24 Hours (Table) 10/16/24 10/16/24 10/17/24 Range/Units 18:02 23:59 05:15 RBC (4.40-5.60) X 10*6/uL Hgb (13.0-17.0) g/dL Hct (39.6-50.0) % MCHC (32.0-37.0) g/dL RDW (11.5-14.5) % Immature Gran # (0.00-0.04) X 10*3/uL Potassium (3.5-5.1) mmol/L Chloride (98-107) mmol/L Carbon Dioxide (22-30) mmol/L BUN (9-20) mg/dL Creatinine (0.66-1.25) mg/dL Glucose (74-99) mg/dL POC Glucose (mg/dL) 206 H 187 H 203 H (70-110) mg/dL ALT (4-49) U/L Alkaline Phosphatase (38-126) U/L Total Protein (6.3-8.2) g/dL Albumin (3.5-5.0) g/dL 10/17/24 10/17/24 10/17/24 Range/Units 06:07 06:07 12:18 RBC 2.88 L (4.40-5.60) X 10*6/uL Hgb 8.6 L (13.0-17.0) g/dL Hct 27.0 L (39.6-50.0) % MCHC 31.9 L (32.0-37.0) g/dL RDW 14.8 H (11.5-14.5) % Immature Gran # 0.29 H (0.00-0.04) X 10*3/uL Potassium 3.1 L (3.5-5.1) mmol/L Chloride 108 H (98-107) mmol/L Carbon Dioxide 21 L (22-30) mmol/L BUN 35 H (9-20) mg/dL Creatinine 0.64 L (0.66-1.25) mg/dL Glucose 195 H (74-99) mg/dL POC Glucose (mg/dL) 189 H (70-110) mg/dL ALT 64 H (4-49) U/L Alkaline Phosphatase 389 H (38-126) U/L Total Protein 5.6 L (6.3-8.2) g/dL Albumin 2.5 L (3.5-5.0) g/dL Assessment and Plan (1) Sepsis Current Visit: Yes Status: Acute Code(s): A41.9 - SEPSIS, UNSPECIFIED ORGANISM SNOMED Code(s): 62673790 (2) Candidemia Current Visit: Yes Status: Acute Code(s): B37.7 - CANDIDAL SEPSIS SNOMED Code(s): 895692871 Plan: 1patient with a complicated history in this patient has been in the hospital for almost a month before this initial consultation on 10/08/2024 with the presentation with intractable nausea vomiting in this patient with status post Rickie-en-Y gastrojejunostomy on 09/25/2024 did have a subsequent fascial dehiscence requiring surgical repair and the patient did spike a fever on 10/06/2024 with a blood culture no positive for candidemia he did have a last CT on 10/03/2024 did not show any concern for an abscess with a possible source could be PICC line which has been there for almost a month however underlying abdominal source not done excluded. 2blood culture has been repeated from the PICC which is growing Alethea and peripheral blood pressure has been negative 3-patient did have repeat CT abdominal pelvis concerning for some fluid collection General Surgery is following the patient for possible drainage procedure or transfer to the tertiary care, 4patient is afebrile and white count has normalized again patient will be continued on Eraxis and monitor clinical course closely Dictation was produced using [employer] dictation software. please excuse any grammatical, word or spelling errors. Time with Patient: Less than 30
--- NOTE | 2024-10-18 13:08 | P.PN ---
Subjective Progress Note Date: 10/18/24 Principal diagnosis: Reason for follow-up is candidemia Patient is a 68-year-old male with multiple comorbidities and did have a PEG tube placement on 09/02/2024 subsequent admission to the hospital for intractable nausea and vomiting patient did have a Rickie-en-Y gastrojejunostomy and on 10/03/2024 and subsequent fascial dehiscence that was repaired he did spike a fever and blood cultures came back positive with Alethea prompted this consultation. On today's evaluation that is 10/18/2024, the patient continues to be afebrile patient is more awake alert up in the bed and is breathing comfortable room air no chest pain shortness of breath or cough patient laboratory indicates tube feeds and seem to have issues with the vomiting as reported by the nursing staff. Patient did have white count of 13.98, creatinine 0.54 Objective - Vital Signs Vital signs: Vital Signs Temp 98.1 F 10/18/24 08:00 Pulse 100 10/18/24 08:00 Resp 15 10/18/24 08:00 BP 134/75 10/18/24 08:00 Pulse Ox 100 10/18/24 08:00 FiO2 Intake & Output 10/17/24 10/18/24 10/18/24 18:59 06:59 18:59 Intake Total 1022 Output Total 250 Balance 772 Weight 52.5 kg Intake: Intake, IV Titration 1022 Amount Mvi, Adult No.4 with Vit 1022 K 10 ml Trace (Conc-1Ml/ Dose) 1 ml Calcium Gluconate 1 gm Magnesium Sulfate gm 0.5 gm In Amino Acids 5 %/Dextrose 20 % 1,000 ml @ 80 mls/hr IV .BY DURATION [facility] Rx#: [id number] Output: Urine 250 Other: Voiding Method Urinal Urinal Urinal Diaper Diaper Diaper # Voids 1 - Exam GENERAL DESCRIPTION: An elderly male lying in bed in no distress RESPIRATORY SYSTEM: Unlabored breathing , decreased breath sounds at bases HEART: S1 S2 regular rate and rhythm , ABDOMEN: Soft , no tenderness EXTREMITIES: No edema feet - Labs CBC & Chem 7: 10/18/24 06:06 10/18/24 06:06 Labs: Abnormal Lab Results - Last 24 Hours (Table) 10/17/24 10/18/24 10/18/24 Range/Units 17:50 00:16 05:54 WBC (4.50-10.00) 10*3/uL RBC (4.40-5.60) 10*6/uL Hgb (13.0-17.0) g/dL Hct (39.6-50.0) % MCHC (32.0-37.0) g/dL RDW (11.5-14.5) % Immature Gran # (0.00-0.04) 10*3/uL Neutrophils # (1.80-7.70) 10*3/uL Potassium (3.5-5.1) mmol/L Chloride (98-107) mmol/L Carbon Dioxide (22-30) mmol/L BUN (9-20) mg/dL Creatinine (0.66-1.25) mg/dL Glucose (74-99) mg/dL POC Glucose (mg/dL) 197 H 191 H 174 H (70-110) mg/dL Phosphorus (2.5-4.5) mg/dL 10/18/24 10/18/24 10/18/24 Range/Units 06:06 06:06 12:31 WBC 13.99 H (4.50-10.00) 10*3/uL RBC 2.88 L (4.40-5.60) 10*6/uL Hgb 8.8 L (13.0-17.0) g/dL Hct 27.8 L (39.6-50.0) % MCHC 31.7 L (32.0-37.0) g/dL RDW 15.1 H (11.5-14.5) % Immature Gran # 0.27 H (0.00-0.04) 10*3/uL Neutrophils # 11.68 H (1.80-7.70) 10*3/uL Potassium 3.4 L (3.5-5.1) mmol/L Chloride 110 H (98-107) mmol/L Carbon Dioxide 18 L (22-30) mmol/L BUN 32 H (9-20) mg/dL Creatinine 0.54 L (0.66-1.25) mg/dL Glucose 174 H (74-99) mg/dL POC Glucose (mg/dL) 225 H (70-110) mg/dL Phosphorus 2.1 L (2.5-4.5) mg/dL Assessment and Plan (1) Sepsis Current Visit: Yes Status: Acute Code(s): A41.9 - SEPSIS, UNSPECIFIED ORGANISM SNOMED Code(s): 52114146 (2) Candidemia Current Visit: Yes Status: Acute Code(s): B37.7 - CANDIDAL SEPSIS SNOMED Code(s): 184512766 Plan: 1patient with a complicated history in this patient has been in the hospital for almost a month before this initial consultation on 10/08/2024 with the presentation with intractable nausea vomiting in this patient with status post Rickie-en-Y gastrojejunostomy on 09/25/2024 did have a subsequent fascial dehiscence requiring surgical repair and the patient did spike a fever on 10/06/2024 with a blood culture no positive for candidemia he did have a last CT on 10/03/2024 did not show any concern for an abscess with a possible source could be PICC line which has been there for almost a month however underlying abdominal source not done excluded. 2blood culture has been repeated from the PICC which is growing Alethea and peripheral blood pressure has been negative 3-patient did have repeat CT abdominal pelvis concerning for some fluid collection General Surgery is following the patient now with persistent vomiting not tolerating his tube feed he is being considered for transfer to tertiary care will continue with Eraxis and monitor clinical course closely Dictation was produced using [employer] dictation software. please excuse any grammatical, word or spelling errors. Time with Patient: Less than 30
--- NOTE | 2024-10-18 15:42 | P.DS ---
Providers Date of admission: 09/09/24 23:23 Expected date of discharge: 10/18/24 Attending physician: Magda Bowie Consults: 09/10/24 08:29 Consult Physician Routine Consulting Provider: Kashmir Odell Consult Reason/Comments: svt with high troponin Do you want consulting provider notified?: Yes 09/10/24 11:26 Consult Physician Routine Consulting Provider: Rickie Pavon Consult Reason/Comments: known Do you want consulting provider notified?: Already Contacted 09/10/24 12:46 Consult Physician Routine Consulting Provider: Psychiatry - [facility] Consult Reason/Comments: depression Do you want consulting provider notified?: Already Contacted 09/26/24 04:18 Consult Physician Routine Consulting Provider: Antwon Mckeon Consult Reason/Comments: HR sustaining 130's Do you want consulting provider notified?: Yes, Notify in am 09/26/24 11:10 Consult Physician Routine Consulting Provider: Zak Lamas Consult Reason/Comments: Hypernatremia, tachycardia, on TPN, strict NPO, possible free water deficit Do you want consulting provider notified?: Yes 10/08/24 03:06 Consult Physician Routine Consulting Provider: Jackie Troy Consult Reason/Comments: Positive blood culture Do you want consulting provider notified?: Yes, Notify in am Primary care physician: Misael Hopkins Hospital Course: 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 Fascial wound dehiscence on 10/03 status post emergent surgical repair requiring multiple blood transfusion Postoperative seroma versus developing abscess Bilateral aspiration pneumonia suspected and patient is continued on Zosyn Hypernatremia, improving and trending down at 140 today Recurrent nausea vomiting, intractable requiring PEG tube placement during last admission. Hypovolemic shock requiring multiple blood transfusions secondary to Fascial wound dehiscence on 10/03 status post emergent surgical repair and close ICU milton toring Epigastric pain and tenderness could be secondary to gastritis, status post Roex-en-Y gastrojejunostomy. S/p G-tube placement Severe calorie protein malnutrition with a BMI of 11.6 Sinus tachycardia versus SVT requiring metoprolol clonidine patch, better controlled Elevated troponin could be secondary to SVT related dehydration, evaluated by cardiology during last admission Hypertension Hyperlipidemia Anxiety/depression, not on active issue Distal esophagitis Hiatal hernia seen on recent EKG GI prophylaxis DVT prophylaxis Full code Discharge disposition Patient is being transferred in a stable condition with guarded prognosis to [facility] in [place]. Patient has been accepted by Dr. Orosco medicine team with GI and general surgery on consult . Total time taken is greater than 35 minutes. Hospital course This is a 64-year-old male who was recently admitted with intractable nausea and vomiting with significant history of SMA syndrome along with severe dysmotility and continued ongoing failure to thrive. Patient does have a PEG tube placed although unable to tolerate tube feeds and is to drainage. Patient has also received a G-tube during this hospitalization. Patient does have hiatal hernia along with distal esophagitis evaluated by general surgery has undergone a Rickie-en-Y with G-tube and no significant improvements. Patient with severe protein calorie malnutrition and poor oral intake with general surgery following is recommending transfer for tertiary treatment for further GI and/or surgery evaluation for possible surgical intervention. Patient also is maintained on TPN and also antifungals with infectious disease following as patient did have bacteremia with Ines likely secondary to the TPN and previous PICC. Patient is currently awaiting a bed at [facility] and transfer team will be contacting unit once bed is available. Medical record was copied and disc was made with multiple images including all CT and interventions. Currently no reports of chest pain, shortness of breath, or palpitations. Patient is afebrile. No reports of nausea or vomiting and patient is n.p.o. and continued on TPN. Patient will be going to [facility] for tertiary care once a bed is assigned. Overall extremely guarded prognosis Physical exam: Gen: This is a 68-year-old male who is awake, alert and oriented x 2-3, thin build, elderly appearing, cachectic HEENT: Head is atraumatic, normocephalic. Pupils equal, round. Sclerae is anicteric. NECK: Supple. No JVD. No lymphadenopathy. No thyromegaly. LUNGS: Diminished breath sounds bilaterally otherwise clear to auscultation. No wheezes or rhonchi. No intercostal retractions. HEART: S1, S2 are muffled ABDOMEN: Soft. Thin bowel sounds are present. No masses. tenderness noted. PEG tube to drainage, G-tube noted EXTREMITIES: No pedal edema. No calf tenderness. NEUROLOGICAL: Patient is awake, alert and oriented x 2-3. Cranial nerves 2 through 12 are grossly intact. Diffusely weak Please refer to medication reconciliation sheet for a list of medications. The impression and plan of care has been dictated by Yanira Linda, Nurse Practitioner as directed. Dr. Jamir MD I have performed a history and examination and MDM of this patient, discussed the same with the dictator, and agree with the dictator's assessment and plan as written ,documented as a scribe. Based on total visit time, I have performed more than 50% of the visit. Patient Condition at Discharge: Fair Plan - Discharge Summary Discharge Rx Participant: Yes New Discharge Prescriptions: No Action Pantoprazole [Protonix] 40 mg PO DAILY Metoprolol Tartrate [Lopressor] 25 mg PO BID-W/MEALS Ferrous Sulfate [Iron (65 MG Elemental)] 325 mg PO DAILY Atorvastatin [Lipitor] 40 mg PO DAILY Folic Acid 1 mg PO DAILY Multivitamins, Thera [Multivitamin (formulary)] 1 tab PO DAILY busPIRone HCL [Buspar] 7.5 mg PO BID-W/MEALS Sertraline [Zoloft] 25 mg PO DAILY Nitroglycerin Sl Tabs [Nitrostat] 0.4 mg SUBLINGUAL Q5M PRN PRN Reason: Chest Pain Albuterol Sulfate [Albuterol Sulfate Hfa] 2 puff PO RT-Q4H PRN PRN Reason: Shortness Of Breath Ondansetron [Zofran] 4 mg PO Q8HR PRN #21 tab PRN Reason: Nausea Acetaminophen Tab [Tylenol] 650 mg PO Q6H PRN PRN Reason: Mild Pain (Scale 1 To 3) Thiamine [Vitamin B-1] 100 mg PO DAILY Calcium Carbonate [Tums] 1,000 mg PO Q4HR PRN tab PRN Reason: Dyspepsia Discharge Medication List Albuterol Sulfate [Albuterol Sulfate Hfa] 2 puff PO RT-Q4H PRN 07/30/24 [History] Ferrous Sulfate [Iron (65 MG Elemental)] 325 mg PO DAILY 07/30/24 [History] Metoprolol Tartrate [Lopressor] 25 mg PO BID-W/MEALS 07/30/24 [History] Nitroglycerin Sl Tabs [Nitrostat] 0.4 mg SUBLINGUAL Q5M PRN 07/30/24 [History] Pantoprazole [Protonix] 40 mg PO DAILY 07/30/24 [History] Sertraline [Zoloft] 25 mg PO DAILY 07/30/24 [History] busPIRone HCL [Buspar] 7.5 mg PO BID-W/MEALS 07/30/24 [History] Ondansetron [Zofran] 4 mg PO Q8HR PRN #21 tab 08/12/24 [Rx] Acetaminophen Tab [Tylenol] 650 mg PO Q6H PRN 08/28/24 [History] Atorvastatin [Lipitor] 40 mg PO DAILY 08/28/24 [History] Folic Acid 1 mg PO DAILY 08/28/24 [History] Multivitamins, Thera [Multivitamin (formulary)] 1 tab PO DAILY 08/28/24 [His tory] Thiamine [Vitamin B-1] 100 mg PO DAILY 08/28/24 [History] Calcium Carbonate [Tums] 1,000 mg PO Q4HR PRN tab 09/06/24 [Rx] Follow up Appointment(s)/Referral(s): Misael Hopkins MD [Primary Care Provider] - 1-2 days [facility], [REFERRING] - Residential Home,Health [NON-STAFF] - Activity/Diet/Wound Care/Special Instructions: Patient is being transferred to [facility] in [place] once a bed is available. Patient has been accepted by Dr. Orosco medicine with possible GI evaluation and also surgical evaluation with Dr. Hartley Case was discussed briefly with general surgery recommending admission to medicine who has accepted Discharge/Stand Alone Forms: Who Do I Call? Discharge Disposition: OTHER INSTITUTION NOT DEFINED
--- NOTE | 2024-10-18 17:30 | P.PN ---
Subjective Patient is seen for follow-up for hypernatremia. He is maintained on TPN. Sodium is 138 today. Potassium was low and has been replaced TPN is adjusted daily based on the electrolytes. Objective - Vital Signs Vital signs: Vital Signs Temp 98 F 10/18/24 13:48 Pulse 86 10/18/24 13:48 Resp 18 10/18/24 13:48 BP 136/87 10/18/24 13:48 Pulse Ox 99 10/18/24 13:48 FiO2 Intake & Output 10/17/24 10/18/24 10/18/24 18:59 06:59 18:59 Intake Total 1022 Output Total 250 Balance 772 Weight 52.5 kg 52.5 kg Intake: Intake, IV Titration 1022 Amount Mvi, Adult No.4 with Vit 1022 K 10 ml Trace (Conc-1Ml/ Dose) 1 ml Calcium Gluconate 1 gm Magnesium Sulfate gm 0.5 gm In Amino Acids 5 %/Dextrose 20 % 1,000 ml @ 80 mls/hr IV .BY DURATION [facility] Rx#: [id number] Output: Urine 250 Other: Voiding Method Urinal Urinal Urinal Diaper Diaper Diaper # Voids 1 - Exam Patient is awake, comfortable, no acute distress Examination of the heart S1 and S2 Examination of the lungs bilateral breath sounds are heard Abdomen is soft, dressed Examination of lower extremities shows trace edema CASH REGISTER REPAIRER exam grossly intact patient is moving all 4 extremities. - Labs CBC & Chem 7: 10/18/24 06:06 10/18/24 15:51 Labs: Abnormal Lab Results - Last 24 Hours (Table) 10/17/24 10/18/24 10/18/24 Range/Units 17:50 00:16 05:54 WBC (4.50-10.00) 10*3/uL RBC (4.40-5.60) 10*6/uL Hgb (13.0-17.0) g/dL Hct (39.6-50.0) % MCHC (32.0-37.0) g/dL RDW (11.5-14.5) % Immature Gran # (0.00-0.04) 10*3/uL Neutrophils # (1.80-7.70) 10*3/uL Potassium (3.5-5.1) mmol/L Chloride (98-107) mmol/L Carbon Dioxide (22-30) mmol/L BUN (9-20) mg/dL Creatinine (0.66-1.25) mg/dL Glucose (74-99) mg/dL POC Glucose (mg/dL) 197 H 191 H 174 H (70-110) mg/dL Phosphorus (2.5-4.5) mg/dL Triglycerides (0.00-149.00) mg/dL 10/18/24 10/18/24 10/18/24 Range/Units 06:06 06:06 12:31 WBC 13.99 H (4.50-10.00) 10*3/uL RBC 2.88 L (4.40-5.60) 10*6/uL Hgb 8.8 L (13.0-17.0) g/dL Hct 27.8 L (39.6-50.0) % MCHC 31.7 L (32.0-37.0) g/dL RDW 15.1 H (11.5-14.5) % Immature Gran # 0.27 H (0.00-0.04) 10*3/uL Neutrophils # 11.68 H (1.80-7.70) 10*3/uL Potassium 3.4 L (3.5-5.1) mmol/L Chloride 110 H (98-107) mmol/L Carbon Dioxide 18 L (22-30) mmol/L BUN 32 H (9-20) mg/dL Creatinine 0.54 L (0.66-1.25) mg/dL Glucose 174 H (74-99) mg/dL POC Glucose (mg/dL) 225 H (70-110) mg/dL Phosphorus 2.1 L (2.5-4.5) mg/dL Triglycerides 209.00 H (0.00-149.00) mg/dL Assessment and Plan Assessment: 1. Hypernatremia from lack of oral water intake. Sodium level 138 today. 2. SMA syndrome. Surgery following. 3. Status post J-tube placement September 25, 2024. 4. Hypokalemia from poor intake. Being replaced. 5. Fascial dehiscence with bleeding status post repair on 10/03/2024 6. Alethea bacteremia 7. Hyperkalemia, resolved with adjustment of TPN Plan: Repeat labs in a.m. and adjust TPN accordingly.
[2024-10-18 17:33] LABS: Glucose,Whole Blood 101 mg/dL (70-110)
[2024-10-18] MEDS ORDERED: Potassium Replacement Protocol 1 EACH MISC MISCELLANE PRN (18:11)
[2024-10-18] MEDS: 1: MVI, ADULT NO.4 WITH VIT K 10 ML, TRACE (CONC-1ML/DOSE) 1 ML, CALCIUM GLUCONATE 1 GM, IV SCH (18:34)
[2024-10-19 00:07] LABS: Glucose,Whole Blood 183 mg/dL (70-110)
--- NOTE | 2024-10-19 03:36 | PN ---
PROGRESS NOTE DATE OF SERVICE: 10/18/2024 SUBJECTIVE: This is a 68-year-old gentleman admitted with superior mesenteric artery syndrome and significant dysphagia. Other medical issues, scheduled to be transferred to [facility]. PHYSICAL EXAMINATION: VITAL SIGNS: Pulse 86, blood pressure 136/87, and respirations 18. CHEST: A few scattered rhonchi and crackles. ABDOMEN: Soft. NERVOUS SYSTEM: No focal deficit. LABORATORY DATA: Reviewed. ASSESSMENT: 1. Superior mesenteric artery syndrome with continued nausea, vomiting, intolerance of the PEG tube feeds. No PEG tube drainage. 2. Alethea albicans sepsis. 3. Status post PICC line. 4. Bilateral aspiration. 5. Hypertension. 6. Hyperlipidemia. 7. Multiple medical issues. RECOMMENDATIONS: Recommend to continue with current management and treatment, otherwise at this time, I would continue with the current medications and once a bed is available in [facility], transfer to [facility]. MMODL / LARISSAN: [id number] /
[2024-10-19 05:40] LABS: Glucose,Whole Blood 162 mg/dL (70-110)
[2024-10-19 10:40] LABS: Basophils % (A) 0.8 %; Eosinophils # (A) 0.24 10*3/uL (0.04-0.35); Eosinophils % (A) 1.8 %; HCT 29.4 % (39.6-50.0); HGB 9.4 g/dL (13.0-17.0); Lymphocytes # (A) 1.36 10*3/uL (0.90-5.00); Lymphocytes % (A) 10.2 %; MCH 29.9 pg (27.0-32.0); MCV 93.6 fL (80.0-97.0); Mean Platelet Volume 10.6 fL (9.5-12.2); Monocytes # (A) 0.78 10*3/uL (0.20-1.00); Monocytes % (A) 5.9 %; Neutrophils # (A) 10.46 10*3/uL (1.80-7.70); Neutrophils % (A) 78.8 %; Platelet Count 450 10*3/uL (140-440); RBC 3.14 10*6/uL (4.40-5.60); RDW 14.9 % (11.5-14.5); WBC 13.27 10*3/uL (4.50-10.00)
[2024-10-19 10:51] LABS: African American GFR (CKD) >90 (>60 ml/min/1.73 sqM); Anion Gap 11 mmol/L; Blood Urea Nitrogen 32 mg/dL (9-20); Calcium 9.1 mg/dL (8.4-10.2); Carbon Dioxide 20 mmol/L (22-30); Chloride 110 mmol/L (98-107); Glucose 176 mg/dL (74-99); Magnesium 1.9 mg/dL (1.6-2.3); Non-African American GFR(CKD) >90 (>60 ml/min/1.73 sqM); Phosphorus 3.2 mg/dL (2.5-4.5); Potassium 4.3 mmol/L (3.5-5.1); Sodium 141 mmol/L (137-145)
[2024-10-19 12:22] LABS: Glucose,Whole Blood 231 mg/dL (70-110)
--- NOTE | 2024-10-19 16:56 | P.PN ---
Subjective Progress Note Date: 10/19/24 Principal diagnosis: Reason for follow-up is candidemia Patient is a 68-year-old male with multiple comorbidities and did have a PEG tube placement on 09/02/2024 subsequent admission to the hospital for intractable nausea and vomiting patient did have a Rickie-en-Y gastrojejunostomy and on 10/03/2024 and subsequent fascial dehiscence that was repaired he did spike a fever and blood cultures came back positive with Alethea prompted this consultation. On today's evaluation that is 10/19/2024,the patient continues to be afebrile he is breathing comfortably on room air slightly sleepy today, no nausea vomiting or any other changes reported by the nursing staff. Patient did have white count of 13.27 creatinine 0.60 Objective - Vital Signs Vital signs: Vital Signs Temp 98.8 F 10/19/24 12:06 Pulse 80 10/19/24 12:06 Resp 16 10/19/24 12:06 BP 144/84 10/19/24 12:06 Pulse Ox 100 10/19/24 12:06 FiO2 Intake & Output 10/18/24 10/19/24 10/19/24 18:59 06:59 18:59 Output Total 300 175 500 Balance -300 -175 -500 Weight 52.5 kg 53.5 kg Output: Drainage 500 Abdomen 500 Urine 300 175 Other: Voiding Method Urinal Urinal Urinal Diaper Diaper Diaper # Voids 2 - Exam GENERAL DESCRIPTION: An elderly male lying in bed in no distress RESPIRATORY SYSTEM: Unlabored breathing , decreased breath sounds at bases HEART: S1 S2 regular rate and rhythm , ABDOMEN: Soft , no tenderness EXTREMITIES: No edema feet - Labs CBC & Chem 7: 10/19/24 10:24 10/19/24 10:24 Labs: Abnormal Lab Results - Last 24 Hours (Table) 10/19/24 10/19/24 10/19/24 Range/Units 00:04 05:37 10:24 WBC (4.50-10.00) 10*3/uL RBC (4.40-5.60) 10*6/uL Hgb (13.0-17.0) g/dL Hct (39.6-50.0) % RDW (11.5-14.5) % Plt Count (140-440) 10*3/uL Immature Gran # (0.00-0.04) 10*3/uL Neutrophils # (1.80-7.70) 10*3/uL Chloride 110 H (98-107) mmol/L Carbon Dioxide 20 L (22-30) mmol/L BUN 32 H (9-20) mg/dL Creatinine 0.60 L (0.66-1.25) mg/dL Glucose 176 H (74-99) mg/dL POC Glucose (mg/dL) 183 H 162 H (70-110) mg/dL 10/19/24 10/19/24 Range/Units 10:24 12:10 WBC 13.27 H (4.50-10.00) 10*3/uL RBC 3.14 L (4.40-5.60) 10*6/uL Hgb 9.4 L (13.0-17.0) g/dL Hct 29.4 L (39.6-50.0) % RDW 14.9 H (11.5-14.5) % Plt Count 450 H (140-440) 10*3/uL Immature Gran # 0.33 H (0.00-0.04) 10*3/uL Neutrophils # 10.46 H (1.80-7.70) 10*3/uL Chloride (98-107) mmol/L Carbon Dioxide (22-30) mmol/L BUN (9-20) mg/dL Creatinine (0.66-1.25) mg/dL Glucose (74-99) mg/dL POC Glucose (mg/dL) 231 H (70-110) mg/dL Assessment and Plan (1) Sepsis Current Visit: Yes Status: Acute Code(s): A41.9 - SEPSIS, UNSPECIFIED ORGANISM SNOMED Code(s): 35934541 (2) Candidemia Current Visit: Yes Status: Acute Code(s): B37.7 - CANDIDAL SEPSIS SNOMED Code(s): 738887415 Plan: 1patient with a complicated history in this patient has been in the hospital for almost a month before this initial consultation on 10/08/2024 with the presentation with intractable nausea vomiting in this patient with status post Rickie-en-Y gastrojejunostomy on 09/25/2024 did have a subsequent fascial dehiscence requiring surgical repair and the patient did spike a fever on 10/06/2024 with a blood culture no positive for candidemia he did have a last CT on 10/03/2024 did not show any concern for an abscess with a possible source could be PICC line which has been there for almost a month however underlying abdominal source not done excluded. 2blood culture has been repeated from the PICC which is growing Alethea and peripheral blood pressure has been negative 3-patient did have repeat CT abdominal pelvis concerning for some fluid collect ion General Surgery is following the patient now with persistent vomiting not tolerating his tube feed he is being considered for transfer to tertiary care which is appropriate. 4patient to continue Eraxis Brother at bedside multiple question concern answered Dictation was produced using [employer] dictation software. please excuse any grammatical, word or spelling errors. Time with Patient: Less than 30
[2024-10-19 17:14] LABS: Glucose,Whole Blood 102 mg/dL (70-110)
[2024-10-20 00:05] LABS: Glucose,Whole Blood 163 mg/dL (70-110)
--- NOTE | 2024-10-20 02:31 | PN ---
PROGRESS NOTE DATE OF SERVICE: 10/19/2024 HISTORY OF PRESENT ILLNESS: This is a 68-year-old gentleman admitted with multiple complex medical issues including superior mesenteric artery syndrome, bowel obstruction, is unable to tolerate the PEG tube feeds. The patient has seen by Surgery, who recommend the patient to be referred to tertiary care center. Apparently, the brother wants to be the [id number] at this time and signed the papers. PAST MEDICAL HISTORY: Reviewed. REVIEW OF SYSTEMS: Could not be taken. CURRENT MEDICATIONS: Reviewed. PHYSICAL EXAMINATION: VITAL SIGNS: Pulse is 80, blood pressure 145/80, respirations 16. CHEST: Few scattered rhonchi. ABDOMEN: Soft, diffuse distention. LABORATORY DATA: Reviewed. Rest of the labs are noted. ASSESSMENT: 1. Superior mesenteric artery syndrome with continued nausea, vomiting, intolerance of the PEG tube feeds. 2. Alethea albicans sepsis. 3. Status post PICC line. 4. Bilateral aspiration. 5. Hypertension. 6. Hyperlipidemia. 7. Multiple medical issues. RECOMMENDS: Recommend to continue current management and treatment, otherwise repeat labs. still worker helper and Case Management addressed the legal guardianship issues with the brother and the family. await transfer to [facility]. PROGNOSIS: Extremely guarded. MMODL / IJN: [id number] / [id number]
[2024-10-20 05:57] LABS: Glucose,Whole Blood 173 mg/dL (70-110)
[2024-10-20 07:42] LABS: Basophils % (A) 0.8 %; Eosinophils # (A) 0.21 10*3/uL (0.04-0.35); Eosinophils % (A) 1.7 %; HCT 26.7 % (39.6-50.0); HGB 8.9 g/dL (13.0-17.0); Lymphocytes # (A) 1.33 10*3/uL (0.90-5.00); Lymphocytes % (A) 10.8 %; MCH 30.2 pg (27.0-32.0); MCHC 33.3 g/dL (32.0-37.0); MCV 90.5 fL (80.0-97.0); Mean Platelet Volume 10.5 fL (9.5-12.2); Monocytes # (A) 0.85 10*3/uL (0.20-1.00); Monocytes % (A) 6.9 %; Neutrophils # (A) 9.32 10*3/uL (1.80-7.70); Neutrophils % (A) 75.6 %; Platelet Count 361 10*3/uL (140-440); RBC 2.95 10*6/uL (4.40-5.60); RDW 14.6 % (11.5-14.5); WBC 12.33 10*3/uL (4.50-10.00)
[2024-10-20 07:58] LABS: African American GFR (CKD) >90 (>60 ml/min/1.73 sqM); Anion Gap 9 mmol/L; Blood Urea Nitrogen 31 mg/dL (9-20); Calcium 8.7 mg/dL (8.4-10.2); Carbon Dioxide 17 mmol/L (22-30); Chloride 112 mmol/L (98-107); Glucose 158 mg/dL (74-99); Magnesium 1.9 mg/dL (1.6-2.3); Non-African American GFR(CKD) >90 (>60 ml/min/1.73 sqM); Phosphorus 3.5 mg/dL (2.5-4.5); Potassium 3.5 mmol/L (3.5-5.1); Sodium 138 mmol/L (137-145)
[2024-10-20] MEDS: 1: MVI, ADULT NO.4 WITH VIT K 10 ML, TRACE (CONC-1ML/DOSE) 1 ML, CALCIUM GLUCONATE 1 GM, IV SCH (08:49)
[2024-10-20 12:12] LABS: Glucose,Whole Blood 210 mg/dL (70-110)
--- NOTE | 2024-10-20 12:16 | P.PN ---
Subjective Progress Note Date: 10/20/24 Patient is seen for follow-up for hypernatremia. He is maintained on TPN. Patient is awake, comfortable, no acute distress Examination of the heart S1 and S2 Examination of the lungs bilateral breath sounds are heard Abdomen is soft, dressed Examination of lower extremities shows trace edema OPHTHALMIC PHOTOGRAPHER exam grossly intact patient is moving all 4 extremities. Objective - Vital Signs Vital signs: Vital Signs Temp 98.3 F 10/20/24 08:00 Pulse 91 10/20/24 08:00 Resp 16 10/20/24 08:00 BP 124/77 10/20/24 08:00 Pulse Ox 98 10/20/24 08:00 FiO2 Intake & Output 10/19/24 10/20/24 10/20/24 18:59 06:59 18:59 Intake Total 1024 Output Total 500 250 Balance 524 -250 Weight 48.5 kg Intake: Intake, IV Titration 1024 Amount Calcium Gluconate 1 gm 1024 Magnesium Sulfate gm 0.5 gm Potassium Acetate 20 meq Potassium Phosphate 9 mmol In Amino Acids 5 %/ Dextrose 20 % 1,000 ml @ 80 mls/hr IV .BY DURATION [facility] Rx#:[id number] Output: Drainage 500 250 Abdomen 500 250 Other: Voiding Method Urinal Urinal Diaper Diaper # Voids 4 4 # Bowel Movements 1 - Labs CBC & Chem 7: 10/20/24 07:18 10/20/24 07:18 Labs: Abnormal Lab Results - Last 24 Hours (Table) 10/19/24 10/19/24 10/19/24 Range/Units 10:24 10:24 12:10 WBC 13.27 H (4.50-10.00) 10*3/uL RBC 3.14 L (4.40-5.60) 10*6/uL Hgb 9.4 L (13.0-17.0) g/dL Hct 29.4 L (39.6-50.0) % RDW 14.9 H (11.5-14.5) % Plt Count 450 H (140-440) 10*3/uL Immature Gran # 0.33 H (0.00-0.04) 10*3/uL Neutrophils # 10.46 H (1.80-7.70) 10*3/uL Chloride 110 H (98-107) mmol/L Carbon Dioxide 20 L (22-30) mmol/L BUN 32 H (9-20) mg/dL Creatinine 0.60 L (0.66-1.25) mg/dL Glucose 176 H (74-99) mg/dL POC Glucose (mg/dL) 231 H (70-110) mg/dL 10/20/24 10/20/24 10/20/24 Range/Units 00:00 05:54 07:18 WBC (4.50-10.00) 10*3/uL RBC (4.40-5.60) 10*6/uL Hgb (13.0-17.0) g/dL Hct (39.6-50.0) % RDW (11.5-14.5) % Plt Count (140-440) 10*3/uL Immature Gran # (0.00-0.04) 10*3/uL Neutrophils # (1.80-7.70) 10*3/uL Chloride 112 H (98-107) mmol/L Carbon Dioxide 17 L (22-30) mmol/L BUN 31 H (9-20) mg/dL Creatinine 0.57 L (0.66-1.25) mg/dL Glucose 158 H (74-99) mg/dL POC Glucose (mg/dL) 163 H 173 H (70-110) mg/dL 10/20/24 Range/Units 07:18 WBC 12.33 H (4.50-10.00) 10*3/uL RBC 2.95 L (4.40-5.60) 10*6/uL Hgb 8.9 L (13.0-17.0) g/dL Hct 26.7 L (39.6-50.0) % RDW 14.6 H (11.5-14.5) % Plt Count (140-440) 10*3/uL Immature Gran # 0.52 H (0.00-0.04) 10*3/uL Neutrophils # 9.32 H (1.80-7.70) 10*3/uL Chloride (98-107) mmol/L Carbon Dioxide (22-30) mmol/L BUN (9-20) mg/dL Creatinine (0.66-1.25) mg/dL Glucose (74-99) mg/dL POC Glucose (mg/dL) (70-110) mg/dL Assessment and Plan Assessment: 1. Hypernatremia from lack of oral water intake. Sodium level 138 today. 2. SMA syndrome. Surgery following. 3. Status post J-tube placement September 25, 2024. 4. Hypokalemia from poor intake. Being replaced. 5. Fascial dehiscence with bleeding status post repair on 10/03/2024 6. Alethea bacteremia 7. Hyperkalemia, resolved with adjustment of TPN Plan: Repeat labs in a.m. and adjust TPN accordingly.
--- NOTE | 2024-10-20 16:14 | XR ---
EXAMINATION TYPE: XR chest 1V portable DATE OF EXAM: 10/20/2024 4:09 PM COMPARISON: Multiple prior chest radiograph, most recent dated 10/07/2023. CLINICAL INDICATION: Male, 68 years old with history of chf; [facility] TECHNIQUE: XR chest 1V portable Frontal view of the chest. FINDINGS: Cardiac silhouette is stable. Slowly improving patchy interstitial and airspace opacities compared to prior study 10/06/2024. No sizable pleural effusion. No pneumothorax. No acute osseous abnormality. IMPRESSION: Improving patchy interstitial and airspace opacities compared to prior study 10/06/2024. [facility], , 10/20/2024 4:12 PM
--- NOTE | 2024-10-20 16:39 | PN ---
PROGRESS NOTE DATE OF SERVICE: 10/20/2024 SUBJECTIVE: This 68-year-old gentleman who was admitted with multiple complex medical issues and bowel obstruction, also complaining of some chest pain also. The troponins are negative. The pain is felt in the lower part of the chest, which is rather nonspecific at this time. The patient will be closely monitored. At this time, the patient is awaiting transfer to [facility], because of the multiple complex medical issues as recommended by the surgeon. PAST MEDICAL HISTORY: Reviewed. REVIEW OF SYSTEMS: Could not be taken. CURRENT MEDICATIONS: Reviewed. PHYSICAL EXAMINATION: VITAL SIGNS: Pulse is 85, blood pressure 130/80, and respirations 16. HEENT: Conjunctivae normal. CHEST: Clear to auscultation. CARDIAC: S1, S2. ABDOMEN: Soft, nontender. LABORATORY DATA: EKG shows no acute changes. ASSESSMENT: 1. 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 2. Alethea albicans sepsis. 3. Chest pain, myocardial infarction ruled out. 4. Status post PICC line. 5. Bilateral aspiration. 6. Hypertension. 7. Hyperlipidemia. 8. Multiple complex medical issues. RECOMMENDATIONS: Recommend to continue current management and symptomatic treatment, otherwise EKG is reviewed. I would also recommend a Cardiology consultation to complete the workup. Otherwise, continue with the transfer process to [facility]. Guarded prognosis. Further recommendations to follow. We will follow the patient along with multiple consultants. SALMA / ARDEN: [id number] /
--- NOTE | 2024-10-20 17:12 | P.PN ---
Subjective Progress Note Date: 10/20/24 Principal diagnosis: Reason for follow-up is candidemia Patient is a 68-year-old male with multiple comorbidities and did have a PEG tube placement on 09/02/2024 subsequent admission to the hospital for intractable nausea and vomiting patient did have a Rickie-en-Y gastrojejunostomy and on 10/03/2024 and subsequent fascial dehiscence that was repaired he did spike a fever and blood cultures came back positive with Alethea prompted this consultation. On today's evaluation that is 10/20/2024,the patient remains to be afebrile, patient is on room air not requiring supplemental oxygen patient is arousable denies any chest pain shortness of breath or cough abdominal pain is currently controlled no further nausea vomiting has been reported. Patient white count is down to 12.33 today, creatinine 0.57 Objective - Vital Signs Vital signs: Vital Signs Temp 98.0 F 10/20/24 12:08 Pulse 85 10/20/24 12:08 Resp 16 10/20/24 12:08 BP 131/80 10/20/24 12:08 Pulse Ox 97 10/20/24 12:08 FiO2 Intake & Output 10/19/24 10/20/24 10/20/24 18:59 06:59 18:59 Intake Total 1024 Output Total 500 250 Balance 524 -250 Weight 48.5 kg Intake: Intake, IV Titration 1024 Amount Calcium Gluconate 1 gm 1024 Magnesium Sulfate gm 0.5 gm Potassium Acetate 20 meq Potassium Phosphate 9 mmol In Amino Acids 5 %/ Dextrose 20 % 1,000 ml @ 80 mls/hr IV .BY D[facility]ATION [facility] Rx#:[id number] Output: Drainage 500 250 Abdomen 500 250 Other: Voiding Method Urinal Urinal Urinal Diaper Diaper Diaper # Voids 4 4 # Bowel Movements 1 - Exam GENERAL DESCRIPTION: An elderly male lying in bed in no distress RESPIRATORY SYSTEM: Unlabored breathing , decreased breath sounds at bases HEART: S1 S2 regular rate and rhythm , ABDOMEN: Soft , no tenderness EXTREMITIES: No edema feet - Labs CBC & Chem 7: 10/20/24 07:18 10/20/24 07:18 Labs: Abnormal Lab Results - Last 24 Hours (Table) 10/20/24 10/20/24 10/20/24 Range/Units 00:00 05:54 07:18 WBC (4.50-10.00) 10*3/uL RBC (4.40-5.60) 10*6/uL Hgb (13.0-17.0) g/dL Hct (39.6-50.0) % RDW (11.5-14.5) % Immature Gran # (0.00-0.04) 10*3/uL Neutrophils # (1.80-7.70) 10*3/uL Chloride 112 H (98-107) mmol/L Carbon Dioxide 17 L (22-30) mmol/L BUN 31 H (9-20) mg/dL Creatinine 0.57 L (0.66-1.25) mg/dL Glucose 158 H (74-99) mg/dL POC Glucose (mg/dL) 163 H 173 H (70-110) mg/dL 10/20/24 10/20/24 Range/Units 07:18 12:11 WBC 12.33 H (4.50-10.00) 10*3/uL RBC 2.95 L (4.40-5.60) 10*6/uL Hgb 8.9 L (13.0-17.0) g/dL Hct 26.7 L (39.6-50.0) % RDW 14.6 H (11.5-14.5) % Immature Gran # 0.52 H (0.00-0.04) 10*3/uL Neutrophils # 9.32 H (1.80-7.70) 10*3/uL Chloride (98-107) mmol/L Carbon Dioxide (22-30) mmol/L BUN (9-20) mg/dL Creatinine (0.66-1.25) mg/dL Glucose (74-99) mg/dL POC Glucose (mg/dL) 210 H (70-110) mg/dL Assessment and Plan (1) Sepsis Current Visit: Yes Status: Acute Code(s): A41.9 - SEPSIS, UNSPECIFIED ORGANISM SNOMED Code(s): 60636274 (2) Candidemia Current Visit: Yes Status: Acute Code(s): B37.7 - CANDIDAL SEPSIS SNOMED Code(s): 984650714 Plan: 1patient with a complicated history in this patient has been in the hospital for almost a month before this initial consultation on 10/08/2024 with the presentation with intractable nausea vomiting in this patient with status post Rickie-en-Y gastrojejunostomy on 09/25/2024 did have a subsequent fascial dehiscence requiring surgical repair and the patient did spike a fever on 10/06/2024 with a blood culture no positive for candidemia he did have a last CT on 10/03/2024 did not show any concern for an abscess with a possible source could be PICC line which has been there for almost a month however underlying abdominal source not done excluded. 2blood culture has been repeated from the PICC which is growing Alethea and peripheral blood pressure has been negative 3-patient did have repeat CT abdominal pelvis concerning for some fluid collection General Surgery is following the patient now with persistent vomiting not tolerating his tube feed he is being considered for transfer to tertiary [facility] which is appropriate and is currently waiting for a bed patient will continue with Eraxis while inpatient and monitor clinical course closely. Family at bedside multiple question concern answered Dictation was produced using [employer] dictation software. please excuse any grammatical, word or spelling errors. Time with Patient: Less than 30
[2024-10-20 17:14] LABS: Glucose,Whole Blood 177 mg/dL (70-110)
[2024-10-21 00:11] LABS: Glucose,Whole Blood 172 mg/dL (70-110)
[2024-10-21 05:47] LABS: Glucose,Whole Blood 162 mg/dL (70-110)
[2024-10-21 06:57] LABS: African American GFR (CKD) >90 (>60 ml/min/1.73 sqM); Anion Gap 11 mmol/L; Blood Urea Nitrogen 31 mg/dL (9-20); Calcium 9.1 mg/dL (8.4-10.2); Carbon Dioxide 22 mmol/L (22-30); Chloride 108 mmol/L (98-107); Glucose 165 mg/dL (74-99); Non-African American GFR(CKD) >90 (>60 ml/min/1.73 sqM); Phosphorus 3.4 mg/dL (2.5-4.5); Potassium 4.3 mmol/L (3.5-5.1); Sodium 141 mmol/L (137-145)
--- NOTE | 2024-10-21 07:57 | P.PN ---
Subjective Patient is seen in follow-up for hypernatremia. Sodium level 141 today. Receiving TPN. Remains NPO. Vital signs are stable. General: No acute distress. HEENT: Head exam is unremarkable. LUNGS: No audible rhonchi or wheezes. HEART: Rate and Rhythm are regular. ABDOMEN: J-tube noted. EXTREMITITES: No edema. Objective - Vital Signs Vital signs: Vital Signs Temp 97.7 F 10/21/24 06:59 Pulse 98 10/21/24 06:59 Resp 20 10/21/24 06:59 BP 130/86 10/21/24 06:59 Pulse Ox 97 10/21/24 07:52 FiO2 Intake & Output 10/20/24 10/21/24 10/21/24 18:59 06:59 18:59 Weight 47 kg Other: Voiding Method Urinal Urinal Diaper Diaper # Voids 1 - Labs CBC & Chem 7: 10/20/24 07:18 10/21/24 06:15 Labs: Abnormal Lab Results - Last 24 Hours (Table) 10/20/24 10/20/24 10/20/24 Range/Units 07:18 12:11 17:08 Chloride 112 H (98-107) mmol/L Carbon Dioxide 17 L (22-30) mmol/L BUN 31 H (9-20) mg/dL Creatinine 0.57 L (0.66-1.25) mg/dL Glucose 158 H (74-99) mg/dL POC Glucose (mg/dL) 210 H 177 H (70-110) mg/dL 10/21/24 10/21/24 10/21/24 Range/Units 00:07 05:45 06:15 Chloride 108 H (98-107) mmol/L Carbon Dioxide (22-30) mmol/L BUN 31 H (9-20) mg/dL Creatinine 0.61 L (0.66-1.25) mg/dL Glucose 165 H (74-99) mg/dL POC Glucose (mg/dL) 172 H 162 H (70-110) mg/dL Assessment and Plan Plan: Assessment: 1. Hypernatremia from lack of oral water intake. Status post D5W. Sodium level normal. 2. SMA syndrome. Surgery following. 3. Status post J-tube placement September 25, 2024. 4. Hypokalemia from poor intake. Status post replacement. Magnesium normal. 5. Alethea bacteremia. ID following. Plan: TPN per surgery. Off IV fluids.
--- NOTE | 2024-10-21 10:50 | P.CRDCN ---
History of Present Illness History of present illness: HISTORY OF PRESENT ILLNESS: This is a 68-year-old male with a past medical history significant for hypertension, hyperlipidemia, carotid stenosis, and SVT. Patient follows in the office with Dr. Mckeon. We have been asked to see the patient in consultation for chest pain. Patient examined at the bedside. Patient states yesterday he had an episode of chest pain that went across both sides of his chest. He states that he was also having abdominal pain at that time. He states the pain lasted for a couple minutes and then went away. He denies any further episodes of chest pain or pressure. Vital signs are stable. EKG without ischemic changes. Troponin negative x 1. It is noted the patient underwent cardiac catheterization in 2019 which was negative for ischemia. REVIEW OF SYSTEMS: At the time of my exam: CONSTITUTIONAL: Denies fever or chills. HEENT: Denies blurred vision, vision changes, or eye pain. Denies hemoptysis CARDIOVASCULAR: Denies chest pain. Denies orthopnea. Denies PND. Denies palpitations RESPIRATORY: Denies shortness of breath. GASTROINTESTINAL: Denies abdominal pain. Denies nausea or vomiting. HEMATOLOGIC: Denies bleeding disorders. GENITOURINARY: Denies any blood in urine. SKIN: Denies pruitis. Denies rash. PHYSICAL EXAM: VITAL SIGNS: Reviewed. GENERAL: Well-developed in no acute distress. HEENT: Head is normocephalic. Pupils are equal, round. Sclerae anicteric. Mucous membranes of the mouth are moist. Neck supple. No JVD or thyromegaly LUNGS: Respirations even and unlabored. Lungs essentially clear to auscultation bilaterally. HEART: Regular rate and rhythm. S1 and S2 heard. ABDOMEN: Soft. Nondistended. Nontender. EXTREMITIES: Normal range of motion. No clubbing or cyanosis. Peripheral pulses intact. No lower extremity edema NEUROLOGIC: Awake and alert. Oriented x 3. ASSESSMENT: Chest pain, atypical, troponin negative, EKG without ischemia SMA syndrome status post gastrojejunostomy and J-tube placement on 09/25 Fascial wound dehiscence on 10/03 status post emergent surgical repair requiring multiple blood transfusion Postoperative seroma versus developing abscess Bilateral aspiration pneumonia Recurrent nausea and vomiting Hypovolemic shock Paroxysmal SVT Hypertension Hyperlipidemia PLAN: An acute coronary event has been ruled out Continue current cardiac medications There are no further recommendations from a cardiac standpoint We will sign off. Please reconsult if needed. Nurse practitioner note has been reviewed by physician. Signing provider agrees with the documented findings, assessment, and plan of care documented by SOD FARMER as a scribe. Past Medical History Past Medical History: Asthma, Coronary Artery Disease (CAD), Chest Pain / Angina, CVA/TIA, GERD/Reflux, Hyperlipidemia, Hypertension, Pneumonia, Rheumatoid Arthritis (RA) Additional Past Medical History / Comment(s): MIGRAINES, HEART MURMUR, hx HIATAL HERNIA, ANEMIA, one dr told him he had a stroke at one time-no effects, varicose veins, history of incarcerated per esophageal hernia, status post robotic-assisted paraesophageal hernia repair and Frederick fundoplication on 06/12/2021. History of Any Multi-Drug Resistant Organisms: None Reported Past Surgical History: Cholecystectomy, Heart Catheterization, Hernia Repair, Orthopedic Surgery Additional Past Surgical History / Comment(s): Lt achilles tendon,RT SHOULDER surgery, RT ACHILLES TENDON reattached, HEMORRHOIDECTOMY, 13 FATTY TUMORS randa philly. left hand index finger surgery after injury, EGD WITH DILATION, paraesophageal hernia repair with Frederick fundoplication on 04/12/2022. New feeding tube September 2024. PEG tube Past Anesthesia/Blood Transfusion Reactions: No Reported Reaction Additional Past Anesthesia/Blood Transfusion Reaction / Comment(s): no hx blood transfusion Past Psychological History: Anxiety, Depression Smoking Status: Former smoker Past Alcohol Use History: None Reported Past Drug Use History: Marijuana - Past Family History Mother Family Medical History: Cancer Father Additional Family Medical History / Comment(s): thinks aneurysm Medications and Allergies Home Medications Medication Instructions Recorded Confirmed Type Albuterol Sulfate [Albuterol 2 puff PO RT-Q4H PRN 07/30/24 09/10/24 History Sulfate Hfa] Metoprolol Tartrate [Lopressor] 25 mg PO BID-W/MEALS 07/30/24 09/10/24 History Nitroglycerin Sl Tabs [Nitrostat] 0.4 mg SUBLINGUAL Q5M PRN 07/30/24 09/10/24 History Pantoprazole [Protonix] 40 mg PO DAILY 07/30/24 09/10/24 History Sertraline [Zoloft] 25 mg PO DAILY 07/30/24 09/10/24 History busPIRone HCL [Buspar] 7.5 mg PO BID-W/MEALS 07/30/24 09/10/24 History Acetaminophen Tab [Tylenol] 650 mg PO Q6H PRN 08/28/24 09/10/24 History Atorvastatin [Lipitor] 40 mg PO DAILY 08/28/24 09/10/24 History Folic Acid 1 mg PO DAILY 08/28/24 09/10/24 History Multivitamins, Thera [Multivitamin 1 tab PO DAILY 08/28/24 09/10/24 History (formulary)] Thiamine [Vitamin B-1] 100 mg PO DAILY 08/28/24 09/10/24 History Calcium Carbonate [Tums] 1,000 mg PO Q4HR PRN tab 09/06/24 09/10/24 Rx Anidulafungin [Eraxis] 100 mg IVPB DAILY each 10/19/24 Rx HYDROcodone/APAP [[place] Elixir 5 ml PO Q6HR PRN ml 10/19/24 Rx 7.5-325Mg/15Ml] Heparin Sodium,Porcine (1 ml) 5,000 unit SQ Q12HR each 10/19/24 Rx [Heparin Sodium] INSULIN LISPRO (HumaLOG) [HumaLOG] 0 unit SQ Q6HR each 10/19/24 Rx Nystatin 100,000 Unit/gm Powd 1 applic TOPICAL BID each 10/19/24 Rx [Mycostatin Powder] cloNIDine 0.3 MG/24HR PATCH 1 patch TRANSDERM Q7D patch 10/19/24 Rx [Catapres-TTS] Allergies Allergy/AdvReac Type Severity Reaction Status Date / Time No Known Allergies Allergy Verified 09/10/24 09:02 Physical Exam Vitals: Vital Signs Temp Pulse Resp BP Pulse Ox 10/21/24 09:15 100 147/100 10/21/24 07:52 97 10/21/24 06:59 97.7 F 98 20 130/86 100 10/21/24 00:15 97.2 F L 91 16 122/85 97 10/20/24 18:34 98.3 F 89 16 152/91 99 10/20/24 12:08 98.0 F 85 16 131/80 97 Intake and Output 10/20/24 10/21/24 10/21/24 22:59 06:59 14:59 Other: Voiding Method Urinal Diaper # Voids 1 1 # Bowel Movements 1 Weight 47 kg Results 10/20/24 07:18 10/21/24 06:15 Cardiac Enzymes 10/20/24 Range/Units 11:47 Troponin I <0.012 (0.000-0.034) ng/mL Comprehensive Metabolic Panel 10/21/24 Range/Units 06:15 Sodium 141 (137-145) mmol/L Potassium 4.3 (3.5-5.1) mmol/L Chloride 108 H (98-107) mmol/L Carbon Dioxide 22 (22-30) mmol/L BUN 31 H (9-20) mg/dL Creatinine 0.61 L (0.66-1.25) mg/dL Glucose 165 H (74-99) mg/dL Calcium 9.1 (8.4-10.2) mg/dL Current Medications Generic Name Dose Route Start Last Admin Trade Name Freq PRN Reason Stop Dose Admin Hydrocodone Bitart/Acetaminophen 5 ml 10/15/24 13:46 Hydrocodone/Apap 15 Ml Solution PO Q6HR PRN Mild to Moderate Pain (1 - 6) Albuterol Sulfate 2.5 mg 10/15/24 13:47 10/16/24 15:09 Albuterol Nebulized 2.5 Mg/3 Ml INHALATION 2.5 mg RT-Q4H PRN Administration Shortness Of Breath Clonidine HCl 1 patch 10/01/24 09:00 10/15/24 08:06 Clonidine 0.3 Mg/24hr Patch TRANSDERM 1 patch Q7D GIRISH Administration Dextrose/Water 25 ml 09/13/24 12:33 10/14/24 08:26 Dextrose 50% Syringe 50 Ml IVP 25 ml PER PROTOCOL PRN Administration Hypoglycemia Protocol Dextrose/Water 50 ml 09/13/24 12:33 Dextrose 50% Syringe 50 Ml IVP PER PROTOCOL PRN Hypoglycemia Protocol Heparin Sodium (Porcine) 5,000 unit 09/23/24 09:00 10/21/24 09:17 Heparin Sodium,Porcine 5,000 Unit/Ml 1 Ml Vial SQ 5,000 unit Q12HR GIRISH Administration Hydralazine HCl 10 mg 09/29/24 04:29 09/29/24 04:36 Hydralazine Hcl 20 Mg/Ml 1 Ml Vial IVP 10 mg Q6HR PRN Administration Blood Pressure - High Hydromorphone HCl 0.5 mg 10/15/24 13:47 10/21/24 09:16 Hydromorphone 0.5 Mg/0.5 Ml Syringe IVP 0.5 mg Q4HR PRN Administration Severe Pain (Scale 7 to 10) Fat Emulsion Intravenous 250 250 mls @ 21 mls/hr 09/13/24 14:00 10/19/24 13:37 ml/ IV Solution IV 21 mls/hr Q72H GIRISH Administration Anidulafungin 100 mg/ Sodium 100 mls @ 84 mls/hr 10/08/24 09:00 10/21/24 09:18 Chloride IVPB 84 mls/hr DAILY GIRISH Administration Protocol Parenteral Vitamin Supplement 1,045 mls @ 80 mls/hr 10/20/24 09:00 10/20/24 08:49 10 ml/ Zinc/Copper/Manganese/ IV 80 mls/hr Selenium 1 ml/ Calcium .BY DURATION GIRISH Administration Gluconate 1 gm/ Magnesium Sulfate 0.5 gm/ Potassium Acetate 40 meq/ Potassium Phosphate 9 mmol/ Amino Acids/ Dextrose Calcium Gluconate 1 gm/ 1,034 mls @ 80 mls/hr 10/20/24 09:00 10/20/24 23:01 Magnesium Sulfate 0.5 gm/ IV 80 mls/hr Potassium Acetate 40 meq/ .BY DURATION GIRISH Administration Potassium Phosphate 9 mmol/ Amino Acids/Dextrose Insulin Human Lispro 0 unit 09/26/24 00:15 10/21/24 06:23 Insulin Lispro (Humalog) 100 Unit/Ml 10 Ml Vl SQ 2 unit Q6HR GIRISH Administration Protocol Lidocaine HCl 0.1 ml 09/12/24 11:23 Lidocaine 1% (10mg/Ml) For Iv Start INTRADERMA PER PROTOCOL PRN IV Start Lorazepam 0.5 mg 10/04/24 13:32 10/10/24 22:58 Lorazepam 1 Mg/0.5 Ml Vial IV 0.5 mg Q4HR PRN Administration Anxiety Metoclopramide HCl 10 mg 09/26/24 08:52 10/20/24 14:13 Metoclopramide 5 Mg/Ml 2 Ml Vial IVP 10 mg Q6HR PRN Administration Nausea And Vomiting Metoprolol Tartrate 25 mg 10/15/24 17:30 10/21/24 09:17 Metoprolol Tartrate 25 Mg Tab PO 25 mg BID-W/MEALS GIRISH Administration Miscellaneous Information 1 each 10/01/24 22:38 Magnesium Replacement Protocol 1 Each Misc MISCELLANE DAILY PRN Per Protocol Protocol Miscellaneous Information 1 each 10/17/24 18:05 Potassium Replacement Protocol 1 Each Misc MISCELLANE DAILY PRN Per Protocol Protocol Miscellaneous Information 1 each 10/18/24 18:11 Potassium Replacement Protocol 1 Each Misc MISCELLANE DAILY PRN Per Protocol Protocol Naloxone HCl 0.2 mg 09/09/24 23:22 Naloxone 0.4 Mg/Ml 1 Ml Vial IV Q2M PRN Opioid Reversal Nystatin 1 applic 10/14/24 21:00 10/21/24 09:18 Nystatin 100,000 Unit/Gm Powd 15 Gm TOPICAL 1 applic BID GIRISH Administration Protocol Ondansetron HCl 8 mg 09/11/24 11:10 10/20/24 16:33 Ondansetron 4 Mg/2 Ml Vial IVP 8 mg Q6HR PRN Administration Nausea And Vomiting Pantoprazole Sodium 40 mg 09/11/24 09:00 10/21/24 09:17 Pantoprazole 40 Mg/10 Ml Vial IV 40 mg BID GIRISH Administration Petrolatum 1 applic 10/06/24 04:05 10/07/24 01:04 Zinc Oxide Paste (Z-Guard) 1 Applic TOPICAL 1 applic BID PRN Administration Wound Healing Protocol Sertraline HCl 25 mg 10/16/24 09:00 10/21/24 09:17 Sertraline 25 Mg Tab PO 25 mg DAILY GIRISH Administration Intake and Output 10/20/24 10/21/24 10/21/24 22:59 06:59 14:59 Other: Voiding Method Urinal Diaper # Voids 1 1 # Bowel Movements 1 Weight 47 kg 10/20/24 07:18 10/21/24 06:15
[2024-10-21 12:07] LABS: Glucose,Whole Blood 167 mg/dL (70-110)
--- NOTE | 2024-10-21 13:49 | P.PN ---
Subjective Progress Note Date: 10/21/24 SURGICAL PROGRESS NOTE CHIEF COMPLAINT: Recurrent nausea and vomiting HISTORY OF PRESENT ILLNESS: Status post repair of fascial dehiscence upper incision of the midline incision on 10/03/24. Status post Rickie-en-Y gastrojejunostomy on 09/25/24. PEG O gram with Gastrografin reports contrast opacifies the gastric lumen and small bowel. Patient's PEG tube is to drainage. He did not tolerate tube feeds. He is in transfer process to [facility]. Awaiting a bed. Afebrile. PHYSICAL EXAM: VITAL SIGNS: Reviewed. GENERAL: no acute distress. ABDOMEN: Soft. Nondistended. Abdominal binder in place. PEG tube to drainage ASSESSMENT: 1. SMA syndrome 2. Upper GI bleed with bright red blood and coffee-ground emesis. now resolved 3. Intractable nausea and vomiting 4. Chronic esophageal dysmotility disorder 5. Hiatal hernia 6. Esophagitis 7. Severe protein calorie malnutrition 8. Leukocytosis is reactive from surgery 9. Anemia secondary to malnutrition. 10. Fascial dehiscence of incision status post repair 11. Failure to thrive PLAN: -Transfer to [facility] in progress. Awaiting bed availability -Keep tube feeds on hold -Place PEG tube to drainage -Continue TPN -Antibiotics per ID service -DVT prophylaxis subcu heparin Physician Horse Race Timer note has been reviewed by physician. Signing provider agrees with the documented findings, assessment, and plan of care. Objective - Vital Signs Vital signs: Vital Signs Temp 98.4 F 10/21/24 12:03 Pulse 114 H 10/21/24 12:03 Resp 20 10/21/24 12:03 BP 116/79 10/21/24 12:03 Pulse Ox 100 10/21/24 12:03 FiO2 Intake & Output 10/20/24 10/21/24 10/21/24 18:59 06:59 18:59 Intake Total 1045 Balance 1045 Weight 47 kg Intake: Intake, IV Titration 1045 Amount Mvi, Adult No.4 with Vit 1045 K 10 ml Trace (Conc-1Ml/ Dose) 1 ml Calcium Gluconate 1 gm Magnesium Sulfate gm 0.5 gm Potassium Acetate 40 meq Potassium Phosphate 9 mmol In Amino Acids 5 %/ Dextrose 20 % 1,000 ml @ 80 mls/hr IV .BY DURATION [facility] Rx#:[id number] Other: Voiding Method Urinal Urinal Diaper Diaper # Voids 1 1 # Bowel Movements 1 - Labs CBC & Chem 7: 10/20/24 07:18 10/21/24 06:15 Labs: Abnormal Lab Results - Last 24 Hours (Table) 10/20/24 10/21/24 10/21/24 Range/Units 17:08 00:07 05:45 Chloride (98-107) mmol/L BUN (9-20) mg/dL Creatinine (0.66-1.25) mg/dL Glucose (74-99) mg/dL POC Glucose (mg/dL) 177 H 172 H 162 H (70-110) mg/dL 10/21/24 10/21/24 Range/Units 06:15 12:06 Chloride 108 H (98-107) mmol/L BUN 31 H (9-20) mg/dL Creatinine 0.61 L (0.66-1.25) mg/dL Glucose 165 H (74-99) mg/dL POC Glucose (mg/dL) 167 H (70-110) mg/dL
[2024-10-21 17:43] LABS: Glucose,Whole Blood 188 mg/dL (70-110)
[2024-10-22 00:11] LABS: Glucose,Whole Blood 153 mg/dL (70-110)
--- NOTE | 2024-10-22 01:39 | PN ---
PROGRESS NOTE DATE OF SERVICE: 10/21/2024 SUBJECTIVE: This is a 68-year-old gentleman, who was admitted with SMA syndrome with bowel obstruction and continued nausea and vomiting. The patient also complaining of some chest pain. Cardiology has seen the patient. Otherwise, transfer to [facility] is being awaited at this time. Acute coronary syndrome has been ruled out. OBJECTIVE: VITAL SIGNS: Pulse is 114, blood pressure 116/70, and respirations 20. HEENT: Conjunctivae normal. CARDIOVASCULAR: S1 and S2. ABDOMEN: Soft. NERVOUS SYSTEM: Nonfocal. LABORATORY DATA: Reviewed. ASSESSMENT: 1. Superior mesenteric artery syndrome with continued nausea, vomiting, intolerance with PEG tube feeds. 2. Alethea albicans sepsis. 3. Chest pain, myocardial infarction ruled out. 4. Status post PICC line. 5. Bilateral aspiration. 6. Hypertension. 7. Hyperlipidemia. 8. Multiple complex medical issues. RECOMMENDATIONS: Recommend to continue current management and symptomatic treatment. Otherwise, closely follow with multiple consultants. I would also recommend repeat labs, transfer to [facility] once a bed is available. Prognosis guarded. Discussed with family. Further recommendations to follow. MMODL / IJN: [id number] /
[2024-10-22 05:42] LABS: Ionized Calcium 5.1 mg/dL (4.5-5.3)
[2024-10-22 05:51] LABS: HCT 29.1 % (39.6-50.0); HGB 9.4 g/dL (13.0-17.0); MCH 29.4 pg (27.0-32.0); MCHC 32.3 g/dL (32.0-37.0); MCV 90.9 fL (80.0-97.0); Mean Platelet Volume 10.3 fL (9.5-12.2); Platelet Count 459 10*3/uL (140-440); RDW 14.6 % (11.5-14.5); WBC 17.77 10*3/uL (4.50-10.00)
[2024-10-22 05:58] LABS: ALT 46 U/L (4-49); AST 35 U/L (17-59); African American GFR (CKD) >90 (>60 ml/min/1.73 sqM); Albumin 2.9 g/dL (3.5-5.0); Albumin/Globulin Ratio 0.8; Alkaline Phosphatase 320 U/L (38-126); Anion Gap 10 mmol/L; Blood Urea Nitrogen 35 mg/dL (9-20); Calcium 9.4 mg/dL (8.4-10.2); Carbon Dioxide 21 mmol/L (22-30); Chloride 107 mmol/L (98-107); Globulin 3.6 g/dL; Glucose 146 mg/dL (74-99); Magnesium 2.1 mg/dL (1.6-2.3); Non-African American GFR(CKD) >90 (>60 ml/min/1.73 sqM); Phosphorus 3.8 mg/dL (2.5-4.5); Potassium 4.8 mmol/L (3.5-5.1); Sodium 138 mmol/L (137-145); Total Bilirubin 0.4 mg/dL (0.2-1.3); Total Protein 6.5 g/dL (6.3-8.2)
[2024-10-22 06:09] LABS: Glucose,Whole Blood 172 mg/dL (70-110)
[2024-10-22 07:33] LABS: Band Neutrophils % 4 %; Lymphocytes # (M) 1.42 k/uL (1.0-4.8); Metamyelocytes # (M) 0.36 k/uL (0); Metamyelocytes % 2 %; Monocytes # (M) 1.07 k/uL (0-1.0); Neutrophils # (M) 14.92 k/uL (1.3-7.7); Neutrophils % (M) 80 %; Nucleated Red Blood Cells 0 /100 WBC (0-0); Total Cells Counted 100
[2024-10-22 07:34] LABS: RBC Morphology Normal
--- NOTE | 2024-10-22 10:23 | P.PN ---
Subjective Patient is seen in follow-up for hypernatremia. Sodium level 138 today. Receiving TPN. Remains NPO. Vital signs are stable. General: No acute distress. HEENT: Head exam is unremarkable. LUNGS: No audible rhonchi or wheezes. HEART: Rate and Rhythm are regular. ABDOMEN: J-tube noted. EXTREMITITES: No edema. Objective - Vital Signs Vital signs: Vital Signs Temp 97.8 F 10/22/24 07:17 Pulse 95 10/22/24 07:17 Resp 16 10/22/24 07:17 BP 125/91 10/22/24 07:17 Pulse Ox 100 10/22/24 07:17 FiO2 Intake & Output 10/21/24 10/22/24 10/22/24 18:59 06:59 18:59 Intake Total 1034 Output Total 400 100 Balance 634 -100 Weight 54.5 kg Intake: Intake, IV Titration 1034 Amount Calcium Gluconate 1 gm 1034 Magnesium Sulfate gm 0.5 gm Potassium Acetate 40 meq Potassium Phosphate 9 mmol In Amino Acids 5 %/ Dextrose 20 % 1,000 ml @ 80 mls/hr IV .BY DURATION [facility] Rx#:[id number] Output: Gastric Drainage 100 Drainage 400 Abdomen 400 Other: Voiding Method Urinal Urinal Diaper Diaper # Voids 1 1 # Bowel Movements 1 1 - Labs CBC & Chem 7: 10/22/24 04:51 10/22/24 04:51 Labs: Abnormal Lab Results - Last 24 Hours (Table) 10/21/24 10/21/24 10/22/24 Range/Units 12:06 17:42 00:09 WBC (4.50-10.00) 10*3/uL RBC (4.40-5.60) 10*6/uL Hgb (13.0-17.0) g/dL Hct (39.6-50.0) % RDW (11.5-14.5) % Plt Count (140-440) 10*3/uL Immature Gran # (0.00-0.04) 10*3/uL Neutrophils # (Manual) (1.3-7.7) k/uL Monocytes # (Manual) (0-1.0) k/uL Metamyelocytes # (Man) (0) k/uL Carbon Dioxide (22-30) mmol/L BUN (9-20) mg/dL Creatinine (0.66-1.25) mg/dL Glucose (74-99) mg/dL POC Glucose (mg/dL) 167 H 188 H 153 H (70-110) mg/dL Alkaline Phosphatase (38-126) U/L Albumin (3.5-5.0) g/dL 10/22/24 10/22/24 10/22/24 Range/Units 04:51 04:51 06:08 WBC 17.77 H (4.50-10.00) 10*3/uL RBC 3.20 L (4.40-5.60) 10*6/uL Hgb 9.4 L (13.0-17.0) g/dL Hct 29.1 L (39.6-50.0) % RDW 14.6 H (11.5-14.5) % Plt Count 459 H (140-440) 10*3/uL Immature Gran # 1.46 H (0.00-0.04) 10*3/uL Neutrophils # (Manual) 14.92 H (1.3-7.7) k/uL Monocytes # (Manual) 1.07 H (0-1.0) k/uL Metamyelocytes # (Man) 0.36 H (0) k/uL Carbon Dioxide 21 L (22-30) mmol/L BUN 35 H (9-20) mg/dL Creatinine 0.61 L (0.66-1.25) mg/dL Glucose 146 H (74-99) mg/dL POC Glucose (mg/dL) 172 H (70-110) mg/dL Alkaline Phosphatase 320 H (38-126) U/L Albumin 2.9 L (3.5-5.0) g/dL Assessment and Plan Plan: Assessment: 1. Hypernatremia from lack of oral water intake. Status post D5W. Sodium level normal. 2. SMA syndrome. Surgery following. 3. Status post J-tube placement September 25, 2024. 4. Hypokalemia from poor intake. Status post replacement. Magnesium normal. 5. Alethea bacteremia. ID following. Plan: TPN per surgery. Off IV fluids.
[2024-10-22 10:38] VITALS: BMI 18.2
[2024-10-22 12:01] LABS: Glucose,Whole Blood 182 mg/dL (70-110)
--- NOTE | 2024-10-22 13:22 | P.PN ---
Subjective Progress Note Date: 10/21/24 Principal diagnosis: Reason for follow-up is candidemia Patient is a 68-year-old male with multiple comorbidities and did have a PEG tube placement on 09/02/2024 subsequent admission to the hospital for intractable nausea and vomiting patient did have a Rickie-en-Y gastrojejunostomy and on 10/03/2024 and subsequent fascial dehiscence that was repaired he did spike a fever and blood cultures came back positive with Alethea prompted this consultation. On today's evaluation that is 10/21/2024, the patient continues to be afebrile, the patient is on room air and breathing comfortably, the Pt denies having any chest pain or cough, the patient abdominal pain is currently controlled some nausea but no vomiting. Patient did have a creatinine 0.61 no CBC was done today Objective - Vital Signs Vital signs: Vital Signs Temp 98.4 F 10/21/24 12:03 Pulse 114 H 10/21/24 12:03 Resp 20 10/21/24 12:03 BP 116/79 10/21/24 12:03 Pulse Ox 100 10/21/24 12:03 FiO2 Intake & Output 10/20/24 10/21/24 10/21/24 18:59 06:59 18:59 Intake Total 1045 Balance 1045 Weight 47 kg Intake: Intake, IV Titration 1045 Amount Mvi, Adult No.4 with Vit 1045 K 10 ml Trace (Conc-1Ml/ Dose) 1 ml Calcium Gluconate 1 gm Magnesium Sulfate gm 0.5 gm Potassium Acetate 40 meq Potassium Phosphate 9 mmol In Amino Acids 5 %/ Dextrose 20 % 1,000 ml @ 80 mls/hr IV .BY DURATION [facility] Rx#:[id number] Other: Voiding Method Urinal Urinal Diaper Diaper # Voids 1 1 # Bowel Movements 1 - Exam GENERAL DESCRIPTION: An elderly male lying in bed in no distress RESPIRATORY SYSTEM: Unlabored breathing , decreased breath sounds at bases HEART: S1 S2 regular rate and rhythm , ABDOMEN: Soft , no tenderness EXTREMITIES: No edema feet - Labs CBC & Chem 7: 10/22/24 04:51 10/22/24 04:51 Labs: Abnormal Lab Results - Last 24 Hours (Table) 10/20/24 10/21/24 10/21/24 Range/Units 17:08 00:07 05:45 Chloride (98-107) mmol/L BUN (9-20) mg/dL Creatinine (0.66-1.25) mg/dL Glucose (74-99) mg/dL POC Glucose (mg/dL) 177 H 172 H 162 H (70-110) mg/dL 10/21/24 10/21/24 Range/Units 06:15 12:06 Chloride 108 H (98-107) mmol/L BUN 31 H (9-20) mg/dL Creatinine 0.61 L (0.66-1.25) mg/dL Glucose 165 H (74-99) mg/dL POC Glucose (mg/dL) 167 H (70-110) mg/dL Assessment and Plan (1) Sepsis Current Visit: Yes Status: Acute Code(s): A41.9 - SEPSIS, UNSPECIFIED ORGANISM SNOMED Code(s): 64338621 (2) Candidemia Current Visit: Yes Status: Acute Code(s): B37.7 - CANDIDAL SEPSIS SNOMED Code(s): 638453908 Plan: 1patient with a complicated history in this patient has been in the hospital for almost a month before this initial consultation on 10/08/2024 with the presentation with intractable nausea vomiting in this patient with status post Rickie-en-Y gastrojejunostomy on 09/25/2024 did have a subsequent fascial dehiscence requiring surgical repair and the patient did spike a fever on 10/06/2024 with a blood culture no positive for candidemia he did have a last CT on 10/03/2024 did not show any concern for an abscess with a possible source could be PICC line which has been there for almost a month however underlying abdominal source not done excluded. 2blood culture has been repeated from the PICC which is growing Alethea and peripheral blood cultures has been negative 3-patient did have repeat CT abdominal pelvis concerning for some fluid collection General Surgery is following the patient now with persistent vomiting not tolerating his tube feed he is being considered for transfer to tertiary care which is appropriate and is currently waiting for a bed, patient is currently being treated with Eraxis to continue Brother at bedside multiple question concern answered Dictation was produced using [email or web address] dictation software. please excuse any grammatical, word or spelling errors. Time with Patient: Less than 30
--- NOTE | 2024-10-22 13:24 | P.PN ---
Subjective Progress Note Date: 10/22/24 Principal diagnosis: Reason for follow-up is candidemia Patient is a 68-year-old male with multiple comorbidities and did have a PEG tube placement on 09/02/2024 subsequent admission to the hospital for intractable nausea and vomiting patient did have a Rickie-en-Y gastrojejunostomy and on 10/03/2024 and subsequent fascial dehiscence that was repaired he did spike a fever and blood cultures came back positive with Alethea prompted this consultation. On today's evaluation that is 10/22/2024, Patient is afebrile patient is currently on room air and denies having any shortness of breath, the patient denies any chest pain has been complaining of some cough nausea but no vomiting abdominal pain is currently controlled. Patient white count is up to 17.7 today, creatinine 0.61 Objective - Vital Signs Vital signs: Vital Signs Temp 98.0 F 10/22/24 13:04 Pulse 87 10/22/24 13:04 Resp 14 10/22/24 13:04 BP 129/85 10/22/24 13:04 Pulse Ox 98 10/22/24 13:04 FiO2 Intake & Output 10/21/24 10/22/24 10/22/24 18:59 06:59 18:59 Intake Total 1034 1045 Output Total 400 100 Balance 634 1045 -100 Weight 54.5 kg 54.5 kg Intake: Intake, IV Titration 1034 1045 Amount Calcium Gluconate 1 gm 1034 Magnesium Sulfate gm 0.5 gm Potassium Acetate 40 meq Potassium Phosphate 9 mmol In Amino Acids 5 %/ Dextrose 20 % 1,000 ml @ 80 mls/hr IV .BY DURATION [facility] Rx#:[id number] Mvi, Adult No.4 with Vit 1045 K 10 ml Trace (Conc-1Ml/ Dose) 1 ml Calcium Gluconate 1 gm Magnesium Sulfate gm 0.5 gm Potassium Acetate 40 meq Potassium Phosphate 9 mmol In Amino Acids 5 %/ Dextrose 20 % 1,000 ml @ 80 mls/hr IV .BY DURATION [facility] Rx#:[id number] Output: Gastric Drainage 100 Drainage 400 Abdomen 400 Other: Voiding Method Urinal Urinal Urinal Diaper Diaper Diaper # Voids 1 1 # Bowel Movements 1 1 - Exam GENERAL DESCRIPTION: An elderly male lying in bed in no distress RESPIRATORY SYSTEM: Unlabored breathing , decreased breath sounds at bases HEART: S1 S2 regular rate and rhythm , ABDOMEN: Soft , no tenderness EXTREMITIES: No edema feet - Labs CBC & Chem 7: 10/22/24 04:51 10/22/24 04:51 Labs: Abnormal Lab Results - Last 24 Hours (Table) 10/21/24 10/22/24 10/22/24 Range/Units 17:42 00:09 04:51 WBC (4.50-10.00) 10*3/uL RBC (4.40-5.60) 10*6/uL Hgb (13.0-17.0) g/dL Hct (39.6-50.0) % RDW (11.5-14.5) % Plt Count (140-440) 10*3/uL Immature Gran # (0.00-0.04) 10*3/uL Neutrophils # (Manual) (1.3-7.7) k/uL Monocytes # (Manual) (0-1.0) k/uL Metamyelocytes # (Man) (0) k/uL Carbon Dioxide 21 L (22-30) mmol/L BUN 35 H (9-20) mg/dL Creatinine 0.61 L (0.66-1.25) mg/dL Glucose 146 H (74-99) mg/dL POC Glucose (mg/dL) 188 H 153 H (70-110) mg/dL Alkaline Phosphatase 320 H (38-126) U/L Albumin 2.9 L (3.5-5.0) g/dL 10/22/24 10/22/24 10/22/24 Range/Units 04:51 06:08 12:00 WBC 17.77 H (4.50-10.00) 10*3/uL RBC 3.20 L (4.40-5.60) 10*6/uL Hgb 9.4 L (13.0-17.0) g/dL Hct 29.1 L (39.6-50.0) % RDW 14.6 H (11.5-14.5) % Plt Count 459 H (140-440) 10*3/uL Immature Gran # 1.46 H (0.00-0.04) 10*3/uL Neutrophils # (Manual) 14.92 H (1.3-7.7) k/uL Monocytes # (Manual) 1.07 H (0-1.0) k/uL Metamyelocytes # (Man) 0.36 H (0) k/uL Carbon Dioxide (22-30) mmol/L BUN (9-20) mg/dL Creatinine (0.66-1.25) mg/dL Glucose (74-99) mg/dL POC Glucose (mg/dL) 172 H 182 H (70-110) mg/dL Alkaline Phosphatase (38-126) U/L Albumin (3.5-5.0) g/dL Assessment and Plan (1) Sepsis Current Visit: Yes Status: Acute Code(s): A41.9 - SEPSIS, UNSPECIFIED ORGANISM SNOMED Code(s): 53824479 (2) Candidemia Current Visit: Yes Status: Acute Code(s): B37.7 - CANDIDAL SEPSIS SNOMED Code(s): 538830774 Plan: 1patient with a complicated history in this patient has been in the hospital for almost a month before this initial consultation on 10/08/2024 with the pres entation with intractable nausea vomiting in this patient with status post Rickie-en-Y gastrojejunostomy on 09/25/2024 did have a subsequent fascial dehiscence requiring surgical repair and the patient did spike a fever on 10/06/2024 with a blood culture no positive for candidemia he did have a last CT o n 10/03/2024 did not show any concern for an abscess with a possible source could be PICC line which has been there for almost a month however underlying abdominal source not done excluded. 2blood culture has been repeated from the PICC which is growing Alethea and peripheral blood cultures has been negative 3-patient did have repeat CT abdominal pelvis concerning for some fluid collection General Surgery is following the patient and is recommending transfer to tertiary care which is currently in progress 4patient noted to have worsening of his white count but no fever recommend repeating a CT and blood culture will continue with Eraxis at this point Dictation was produced using [employer] dictation software. please excuse any grammatical, word or spelling errors. Time with Patient: Less than 30
--- NOTE | 2024-10-22 14:30 | P.PN ---
Subjective Progress Note Date: 10/22/24 SURGICAL PROGRESS NOTE CHIEF COMPLAINT: Recurrent nausea and vomiting HISTORY OF PRESENT ILLNESS: Status post repair of fascial dehiscence upper incision of the midline incision on 10/03/24. Status post Rickie-en-Y gastrojejunostomy on 09/25/24. PEG O gram with Gastrografin reports contrast opacifies the gastric lumen and small bowel. Patient's PEG tube is to drainage. He did not tolerate tube feeds. Awaiting bed at [facility]. WBC is up from 12-17 PHYSICAL EXAM: VITAL SIGNS: Reviewed. GENERAL: no acute distress. ABDOMEN: Soft. Nondistended. Abdominal binder in place. PEG tube to drainage ASSESSMENT: 1. SMA syndrome 2. Upper GI bleed with bright red blood and coffee-ground emesis. now resolved 3. Intractable nausea and vomiting 4. Chronic esophageal dysmotility disorder 5. Hiatal hernia 6. Esophagitis 7. Severe protein calorie malnutrition 8. Anemia secondary to malnutrition. 9. Fascial dehiscence of incision status post repair 10. Failure to thrive PLAN: -Transfer to [facility] in progress. Awaiting bed availability -Keep tube feeds on hold -Place PEG tube to drainage -Continue TPN -Antibiotics per ID service -CBC in AM -DVT prophylaxis subcu heparin Physician Extruder note has been reviewed by physician. Signing provider agrees with the documented findings, assessment, and plan of care. Objective - Vital Signs Vital signs: Vital Signs Temp 98.0 F 10/22/24 13:04 Pulse 87 10/22/24 13:04 Resp 14 10/22/24 13:04 BP 129/85 10/22/24 13:04 Pulse Ox 98 10/22/24 13:04 FiO2 Intake & Output 10/21/24 10/22/24 10/22/24 18:59 06:59 18:59 Intake Total 1034 1045 Output Total 400 100 Balance 634 1045 -100 Weight 54.5 kg 54.5 kg Intake: Intake, IV Titration 1034 1045 Amount Calcium Gluconate 1 gm 1034 Magnesium Sulfate gm 0.5 gm Potassium Acetate 40 meq Potassium Phosphate 9 mmol In Amino Acids 5 %/ Dextrose 20 % 1,000 ml @ 80 mls/hr IV .BY DURATION [facility] Rx#:[id number] Mvi, Adult No.4 with Vit 1045 K 10 ml Trace (Conc-1Ml/ Dose) 1 ml Calcium Gluconate 1 gm Magnesium Sulfate gm 0.5 gm Potassium Acetate 40 meq Potassium Phosphate 9 mmol In Amino Acids 5 %/ Dextrose 20 % 1,000 ml @ 80 mls/hr IV .BY DURATION [facility] Rx#:[id number] Output: Gastric Drainage 100 Drainage 400 Abdomen 400 Other: Voiding Method Urinal Urinal Urinal Diaper Diaper Diaper # Voids 1 1 # Bowel Movements 1 1 - Labs CBC & Chem 7: 10/22/24 04:51 10/22/24 04:51 Labs: Abnormal Lab Results - Last 24 Hours (Table) 10/21/24 10/22/24 10/22/24 Range/Units 17:42 00:09 04:51 WBC (4.50-10.00) 10*3/uL RBC (4.40-5.60) 10*6/uL Hgb (13.0-17.0) g/dL Hct (39.6-50.0) % RDW (11.5-14.5) % Plt Count (140-440) 10*3/uL Immature Gran # (0.00-0.04) 10*3/uL Neutrophils # (Manual) (1.3-7.7) k/uL Monocytes # (Manual) (0-1.0) k/uL Metamyelocytes # (Man) (0) k/uL Carbon Dioxide 21 L (22-30) mmol/L BUN 35 H (9-20) mg/dL Creatinine 0.61 L (0.66-1.25) mg/dL Glucose 146 H (74-99) mg/dL POC Glucose (mg/dL) 188 H 153 H (70-110) mg/dL Alkaline Phosphatase 320 H (38-126) U/L Albumin 2.9 L (3.5-5.0) g/dL 10/22/24 10/22/24 10/22/24 Range/Units 04:51 06:08 12:00 WBC 17.77 H (4.50-10.00) 10*3/uL RBC 3.20 L (4.40-5.60) 10*6/uL Hgb 9.4 L (13.0-17.0) g/dL Hct 29.1 L (39.6-50.0) % RDW 14.6 H (11.5-14.5) % Plt Count 459 H (140-440) 10*3/uL Immature Gran # 1.46 H (0.00-0.04) 10*3/uL Neutrophils # (Manual) 14.92 H (1.3-7.7) k/uL Monocytes # (Manual) 1.07 H (0-1.0) k/uL Metamyelocytes # (Man) 0.36 H (0) k/uL Carbon Dioxide (22-30) mmol/L BUN (9-20) mg/dL Creatinine (0.66-1.25) mg/dL Glucose (74-99) mg/dL POC Glucose (mg/dL) 172 H 182 H (70-110) mg/dL Alkaline Phosphatase (38-126) U/L Albumin (3.5-5.0) g/dL
[2024-10-22 18:02] LABS: Glucose,Whole Blood 136 mg/dL (70-110)
[2024-10-22 23:48] LABS: Glucose,Whole Blood 156 mg/dL (70-110)
[2024-10-23 05:22] LABS: Glucose,Whole Blood 162 mg/dL (70-110)
[2024-10-23 06:40] LABS: ALT 42 U/L (4-49); AST 33 U/L (17-59); African American GFR (CKD) >90 (>60 ml/min/1.73 sqM); Albumin 2.9 g/dL (3.5-5.0); Albumin/Globulin Ratio 0.8; Alkaline Phosphatase 301 U/L (38-126); Anion Gap 10 mmol/L; Blood Urea Nitrogen 37 mg/dL (9-20); Calcium 9.3 mg/dL (8.4-10.2); Carbon Dioxide 25 mmol/L (22-30); Chloride 103 mmol/L (98-107); Globulin 3.5 g/dL; Glucose 152 mg/dL (74-99); Non-African American GFR(CKD) >90 (>60 ml/min/1.73 sqM); Phosphorus 4.3 mg/dL (2.5-4.5); Potassium 5.2 mmol/L (3.5-5.1); Sodium 138 mmol/L (137-145); Total Bilirubin 0.5 mg/dL (0.2-1.3); Total Protein 6.4 g/dL (6.3-8.2)
--- NOTE | 2024-10-23 09:01 | P.PN ---
Subjective Progress Note Date: 10/22/24 This is a pleasant 68 years old male who was recently discharged from this facility about 4 days ago for nausea vomiting and malnutrition status post PEG tube placement by surgery team. Once he been discharged he started having recurrent nausea vomiting again, he vomited 6 times since yesterday with no blood. Associated with epigastric pain and tenderness His troponin was elevated but EKG showing SVT. He has been evaluated by stockroom keeper as well during last admission for elevated troponin. Currently denies chest pain or dyspnea. No specific urinary symptoms. No headache dizziness weakness or numbness He is pain mainly in the epigastric area about 9/10 felt like squeezing nonradiating with no precipitating or relieving factors. He states that the pain is similar to last time. He has no bowel movement. He is using the PEG tube at home. He got Zofran 4 mg and is requesting more medicine He is hemodynamically stable and afebrile He has unremarkable CBC, BMP, LFT. WBC is mildly elevated at 10.4 at 11. Lactic acid 4.6 came back to normal at 1.7. Troponin is elevated 0.065. KUB showing nonspecific gas bowel pattern. EKG showed SVT with a rate of [address] depression in V3-V5 Patient lying in bed with no dyspnea or chest pain He is vomiting of blood today. He still has nausea vomiting. He was on Zofran 8 mg we will going to add Reglan IV 5 and then 10 mg. hemoglobin stable at 12.4 with slight improvement. Vital stable. He is not on any blood thinners or aspirin. His on Protonix IV twice daily added today Also we added D5 normal saline Discussed the case with surgery team. CT of the abdomen pelvis with IV contrast is requested. Currently patient denies any abdominal pain or epigastric tenderness. /10 No vomiting today, looks tired No abdominal pain or tenderness PEG tube is in place and feeding tube on hold He still getting IV fluids and Zosyn Plan for EGD today with surgery team given his hematemesis yesterday. Hemoglobin was stable yesterday at 11.3 Monitor hemoglobin Continue with Protonix He is getting Reglan [id number] which prevent him from vomiting 09/25 i came to see the pt twice and he was no in his room 09/26 Patient seen and examined at bedside. He is awake and alert ,he is status post Roex-en-Y gastrojejunostomy. Today postop day #1 He still complaining from epigastric pain and mild tenderness with PEG tube placement to gravity. Patient is not getting tube feeding Patient is getting D5W at 100 mL/h, sodium improved 150 down to 146 today Also patient is getting Zosyn WBC 16.1, hemoglobin 8.4 and sodium 146 Is getting Reglan 5 mg as needed will added 10 mg 09/27 Patient remains with GI symptoms. PEG tube to gravity and patient received TPN. Still with nausea and some abdominal/epigastric pain and tenderness although partially improved. No other new complaint. Labs look stable or slightly improving with sodium 147, hemoglobin 13 and WBC down to 11.3 Nephrology consult was obtained Patient started on normal saline at 100 mL/h and D5W was stopped 09/28 Patient states he is the same over the last 2 days he still have some epigastric pain and tenderness which looks the same also he has some nausea and vomiting although he was taking Reglan. Also patient WBC went up to 13.3. Hemoglobin down to 9.3 Sodium 148 potassium 3.1 Replace potassium per protocol Started on D5W at give Ativan x 1 to help with anxiety and with nausea vomiting 09/29 Patient developed significant tachycardia last night and this morning with heart rate going up to 150 and 160/min. EKG showing sinus tachycardia. Heart rate improved down to 100 and blood pressure stable with systolic 120-150 It is thought multifactorial secondary to anxiety dehydration infection electrolyte abnormalities and pain. D-dimer is ordered but the suspicion for PE is low Patient with no chest pain or dyspnea, actually patient this is the first time he told me he feels better since I saw him from admission. He was sitting in chair with slight weakness. He still getting TPN Zosyn. He getting D5W at 50 mL/h but sodium increased to 152 so increase the dose to 125 mL/h Dilaudid added IV Lopressor 5 mg every 8 hours and clonidine patch 0.1 mg Also low potassium and magnesium being replaced. 09/30 Patient is lethargic today with some nausea. He denies epigastric abdominal pain. He is still tachycardic with heart around 120 WBC is 14.5, hemoglobin 9.6 and He remains on D5W at 125 Eliquis dose lowered to 2.5 10/01 Patient today feels improved and better he denies chest pain or dyspnea no epigastric pain or tenderness significant than the other days. PEG tube still in place but not working. Still getting TPN He still tachycardic and blood pressure still slightly on the high side, he got 3 doses of Lopressor 5 mg IV yesterday, we will going to increase his clonidine patch 0.2 up to 0.3. He has CTA of the chest done yesterday for suspicion of PE, no pulm embolism found however there is lung nodule 1.1 cm that he needs follow-up in 3 months for report also there is bilateral groundglass opacities and nodular lesions suspicious for pneumonia versus aspiration pneumonia versus cryptogenic organizing pneumonia. Also there is retained material or secretions or food in the lower esophagus which cause more with aspiration pneumonitis. Patient remains on IV Protonix for esophagitis Therefore patient remains on IV Zosyn. Low potassium but replace per protocol today The other thing his hypernatremia significantly improved 122 yesterday and 124 today while he is on D5 W at 75 mL today compared to 125 yesterday Check labs in the morning 10/02 Today patient feels tired weak and sweaty Blood pressure is low normal, became slightly tachycardic 115. His heart rate is getting controlled with the clonidine patch 0.3 mg and now requiring only once daily dose of IV Lopressor 5 mg over the last 2 days. His albumin is 2.0. His sodium 138 he remains on D5W. He is still getting TPN Will give IV albumin 25 % x 1 Hemoglobin 9.1 10/03 Patient developed severe bleeding from his epigastric wound and his abdominal wall with hemoglobin dropped down to 6.8 and 6.3 received several units of blood transfusion. He was taking to the operating room emergently by surgery team and the bleeding was stopped and the wound was sutured again. After that patient was taken to the ICU 10/04 Patient awake alert He feels comfortable He still has expected tenderness at the surgical site Pain is treated with IV Tylenol per surgery team 10/05 Patient awake alert sitting up in bed He denies vomiting Abdominal pain is better Blood pressure 92/65 10/06 He still has some epigastric abdominal pain that comes and goes. He rated about 5-7/10. Yesterday was 10/10 which looks improving Surgical vertical wound is with a dressing in place Patient getting TPN. 10/07/2024 Patient is seen in follow-up today with general surgery following and patient is maintained on TPN. Sodium remains elevated at 149 and per pharmacy notes no further sodium noted in the TPN. Tube feeds remain on hold. Patient continues with J-tube to drainage noted to have some biliary drainage and patient remains NPO. Patient also being followed by pulmonary maintained on room air and is not reporting any shortness of breath. Patient currently afebrile although is having intermittent low-grade temps and maintained on IV Zosyn. Prognosis remains guarded. 10/08/2024 Patient seen in follow-up today with no significant improvements noted reporting continued nausea With vomiting today NG tube remains to drainage per general surgery and is continued on TPN. Sodium remains elevated at 149 and nephrology following as well adjusted IV hydration and will follow up on repeat labs. Patient did have a preliminary blood culture that was positive and infectious disease was consulted patient is maintained on Zosyn and repeat blood cultures pending. Concerns about possible PICC line contamination. Patient is afebrile with no reports of chest pain or shortness of breath. Encouraged to increase activity as tolerated although patient is mostly bedbound. Prognosis is guarded. 10/09/2024 Patient is seen in follow-up today with multiple consultations following. Patient is status post fascial dehiscence repair of the upper incision of the midline incision and also Rickie-en-Y gastrojejunostomy placement and tube was flushed and appears to be functioning with no further vomiting noted. Patient continues on TPN and PEG tube to drainage and will continue. White blood count is improving and hemoglobin remained stable with no bleeding noted. Infectious disease has been consulted maintained on Zosyn and awaiting cultures with initial preliminary blood culture showing molecular ID along with Alethea albicans. No vomiting noted today. Patient remains NPO. Nephrology following and has transitioned hydration with increased rate and sodium is improved at 141 today, potassium is 3.8, BUN is 34 with a creatinine of 0.79. Magnesium is 1.5 and will be replaced ALT/AST are mildly elevated and trending down. Patient is significantly weak and recommend PT/OT therapy daily and getting out of the bed more frequently. No bowel movements in the last few days and would recommend bowel regimen. 10/10/2024 Patient is seen in follow-up today reporting still feeling improved and is inquiring about when he can go home. Patient reported to surgery he had a bowel movement although unsure if this was true. Patient denies any further nausea or vomiting at this time and PEG tube remains to drainage. Patient is continued on TPN and will replace electrolytes per protocol. Nephrology following as well and sodium is improving and will continue current regimen. Per PT/OT therapy notes, patient would benefit from rehab for continued strength mobility due to significant weakness and prolonged hospitalization. 10/11/2024 Patient was seen and evaluated today is more awake sitting up in bed with multiple consultations following scheduled to undergo CT abdomen per ID recommendations for further evaluation of possible abdominal source. PICC line is being removed and will be sent for culture and will be replaced as patient is maintained on TPN. General surgery following as well and primary surgeon will be returning Monday and to further discuss today's CT findings along with repeat surgery in the near future. Patient is continued on n.p.o. diet for now and PEG tube is continued to drainage and noted to be bilious. Patient is significantly weak and is attempting to work with physical therapy and get up to the bedside. Patient has been incontinent of urine secondary to significant weakness. Recommend physical therapy daily for continued strength and mobility. Encourage sitting up in the chair more frequently. Case management/social work is following regarding inquiring if TPN is a covered benefit if required outpatient and also the possible need for ECF. Patient is afebrile and white count is normal and blood cultures initially showing Alethea and is maintained on antifungal awaiting repeat cultures. 10/22/2024 Patient is seen in follow-up today who continues to be n.p.o. maintained on TPN with surgery following along with infectious disease and does have a PICC line that has been replaced as previous PICC line was growing Alethea. Repeat cultures have been negative and will continue current regimen. Patient continues to await a bed at [facility] for tertiary treatment and evaluation with surgery and GI. Transfer team was contacted and patient is next in line to receive a bed in regards to outside facility transfers. White count mildly elevated today although patient is afebrile and will follow-up on repeat labs. Review of systems: Constitutional: No reports of fatigue, fever, or chills Cardiovascular: No reports of chest pain or palpitations Respiratory: No reports of shortness of breath or cough GI: No reports of nausea, vomiting, or diarrhea today, patient reports having a bowel movement : No reports of dysuria or retention Neurovascular: reports of weakness but reports would like to go home All medications have been reviewed Physical exam: GENERAL: The patient is much more awake and alert today, alert and oriented x3, not in any acute distress. Appears older than stated age, well developed, ill- appearing, cachectic, significant muscle wasting noted. Thin built HEENT: Pupils are round and equally reacting to light. EOMI. No scleral icterus. No conjunctival pallor. Normocephalic, atraumatic. No pharyngeal erythema. No thyromegaly. CARDIOVASCULAR: S1 and S2 muffled, less tachycardic PULMONARY: Diminished breath sounds bilaterally otherwise chest is clear to auscultation, no wheezing , no crackles. ABDOMEN: Soft, nontender, nondistended, hypoactive bowel sounds. No palpable organomegaly. PEG tube is in place with no Abdominal tenderness or guarding MUSCULOSKELETAL: No joint swelling or deformity. EXTREMITIES: No cyanosis, clubbing, or pedal edema. NEUROLOGICAL: Gross neurological examination did not reveal any focal deficits. Diffusely weak SKIN: No rashes. no petechiae. 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 Epigastric pain and tenderness could be secondary to gastritis, status post Roex-en-Y gastrojejunostomy. S/p G-tube placement Severe calorie protein malnutrition with a BMI of 11.6 Sinus tachycardia versus SVT requiring metoprolol clonidine patch, better controlled Elevated troponin could be secondary to SVT related dehydration, evaluated by cardiology during last admission Hypertension Hyperlipidemia Anxiety/depression, not on active issue Distal esophagitis Hiatal hernia seen on recent EKG GI prophylaxis DVT prophylaxis Full code Plan: Patient is being closely monitored with multiple consultations following including infectious disease as patient had a blood culture positive from 10/06/2024. Repeat blood culture and pending at this time although preliminary has been negative thus far. Previous blood culture preliminary showing Alethea. Repeat CT abdomen was ordered and pending per infectious disease to evaluate for an abdominal source cultures. General surgery following as well. Patient remains n.p.o. maintained on TPN and tube feedings are also on hold per surgery. PEG tube remains to drainage. General surgery recommended a transfer for tertiary treatment with general surgery and/or GI consultation. Patient has been accepted at [facility] by Dr. Orosco and remains to be awaiting a bed availability pending discharges. [facility] is extremely full and per transfer team today, 10/23/2024 patient is next in line to receive a bed from outside transfers Follow-up on repeat labs and replace electrolytes per protocol Would recommend increased activity as tolerated and will recommend PT/OT therapy daily. Overall prognosis is extremely guarded at this time The impression and plan of care has been dictated by Yanira Linda, Nurse Practitioner as directed. Dr. Jamir MD I have performed a history and examination and MDM of this patient, discussed the same with the dictator, and agree with the dictator's assessment and plan as written ,documented as a scribe. Based on total visit time, I have performed more than 50% of the visit. Objective - Vital Signs Vital signs: Vital Signs Temp 98.0 F 10/22/24 13:04 Pulse 87 10/22/24 13:04 Resp 14 10/22/24 13:04 BP 129/85 10/22/24 13:04 Pulse Ox 98 10/22/24 13:04 FiO2 Intake & Output 10/21/24 10/22/24 10/22/24 18:59 06:59 18:59 Intake Total 1034 1045 Output Total 400 100 Balance 634 1045 -100 Weight 54.5 kg 54.5 kg Intake: Intake, IV Titration 1034 1045 Amount Calcium Gluconate 1 gm 1034 Magnesium Sulfate gm 0.5 gm Potassium Acetate 40 meq Potassium Phosphate 9 mmol In Amino Acids 5 %/ Dextrose 20 % 1,000 ml @ 80 mls/hr IV .BY D[facility]ATION [facility] Rx#:[id number] Mvi, Adult No.4 with Vit 1045 K 10 ml Trace (Conc-1Ml/ Dose) 1 ml Calcium Gluconate 1 gm Magnesium Sulfate gm 0.5 gm Potassium Acetate 40 meq Potassium Phosphate 9 mmol In Amino Acids 5 %/ Dextrose 20 % 1,000 ml @ 80 mls/hr IV .BY DURATION [facility] Rx#:[id number] Output: Gastric Drainage 100 Drainage 400 Abdomen 400 Other: Voiding Method Urinal Urinal Urinal Diaper Diaper Diaper # Voids 1 1 # Bowel Movements 1 1 - Labs CBC & Chem 7: 10/22/24 04:51 10/23/24 05:49 Labs: Abnormal Lab Results - Last 24 Hours (Table) 10/21/24 10/22/24 10/22/24 Range/Units 17:42 00:09 04:51 WBC (4.50-10.00) 10*3/uL RBC (4.40-5.60) 10*6/uL Hgb (13.0-17.0) g/dL Hct (39.6-50.0) % RDW (11.5-14.5) % Plt Count (140-440) 10*3/uL Immature Gran # (0.00-0.04) 10*3/uL Neutrophils # (Manual) (1.3-7.7) k/uL Monocytes # (Manual) (0-1.0) k/uL Metamyelocytes # (Man) (0) k/uL Carbon Dioxide 21 L (22-30) mmol/L BUN 35 H (9-20) mg/dL Creatinine 0.61 L (0.66-1.25) mg/dL Glucose 146 H (74-99) mg/dL POC Glucose (mg/dL) 188 H 153 H (70-110) mg/dL Alkaline Phosphatase 320 H (38-126) U/L Albumin 2.9 L (3.5-5.0) g/dL 10/22/24 10/22/24 10/22/24 Range/Units 04:51 06:08 12:00 WBC 17.77 H (4.50-10.00) 10*3/uL RBC 3.20 L (4.40-5.60) 10*6/uL Hgb 9.4 L (13.0-17.0) g/dL Hct 29.1 L (39.6-50.0) % RDW 14.6 H (11.5-14.5) % Plt Count 459 H (140-440) 10*3/uL Immature Gran # 1.46 H (0.00-0.04) 10*3/uL Neutrophils # (Manual) 14.92 H (1.3-7.7) k/uL Monocytes # (Manual) 1.07 H (0-1.0) k/uL Metamyelocytes # (Man) 0.36 H (0) k/uL Carbon Dioxide (22-30) mmol/L BUN (9-20) mg/dL Creatinine (0.66-1.25) mg/dL Glucose (74-99) mg/dL POC Glucose (mg/dL) 172 H 182 H (70-110) mg/dL Alkaline Phosphatase (38-126) U/L Albumin (3.5-5.0) g/dL
[2024-10-23 11:46] LABS: Glucose,Whole Blood 147 mg/dL (70-110)
--- NOTE | 2024-10-23 11:51 | P.PN ---
Subjective Patient is seen in follow-up for hypernatremia. Sodium level stable at 138 today. Receiving TPN. Remains NPO. Vital signs are stable. General: No acute distress. HEENT: Head exam is unremarkable. LUNGS: No audible rhonchi or wheezes. HEART: Rate and Rhythm are regular. ABDOMEN: J-tube noted. EXTREMITITES: No edema. Objective - Vital Signs Vital signs: Vital Signs Temp 98.2 F 10/23/24 08:00 Pulse 80 10/23/24 08:00 Resp 20 10/23/24 08:00 BP 123/85 10/23/24 08:00 Pulse Ox 100 10/23/24 08:00 FiO2 Intake & Output 10/22/24 10/23/24 10/23/24 18:59 06:59 18:59 Intake Total 1034 Output Total 500 100 250 Balance 534 -100 -250 Weight 54.5 kg 55.5 kg Intake: Intake, IV Titration 1034 Amount Calcium Gluconate 1 gm 1034 Magnesium Sulfate gm 0.5 gm Potassium Acetate 40 meq Potassium Phosphate 9 mmol In Amino Acids 5 %/ Dextrose 20 % 1,000 ml @ 80 mls/hr IV .BY DURATION [facility] Rx#:[id number] Output: Gastric Drainage 100 100 Drainage 150 Abdomen 150 Urine 250 Emesis 250 Other: Voiding Method Urinal Bedside Commode Bedside Commode Diaper Urinal Urinal Diaper Diaper # Voids 1 3 - Labs CBC & Chem 7: 10/22/24 04:51 10/23/24 05:49 Labs: Abnormal Lab Results - Last 24 Hours (Table) 10/22/24 10/22/24 10/22/24 Range/Units 12:00 14:47 18:01 Potassium (3.5-5.1) mmol/L BUN (9-20) mg/dL Creatinine (0.66-1.25) mg/dL Glucose (74-99) mg/dL POC Glucose (mg/dL) 182 H 136 H (70-110) mg/dL Alkaline Phosphatase (38-126) U/L C-Reactive Protein 2.00 H (0.00-0.80) mg/dL Albumin (3.5-5.0) g/dL 10/22/24 10/23/24 10/23/24 Range/Units 23:47 05:11 05:49 Potassium 5.2 H (3.5-5.1) mmol/L BUN 37 H (9-20) mg/dL Creatinine 0.64 L (0.66-1.25) mg/dL Glucose 152 H (74-99) mg/dL POC Glucose (mg/dL) 156 H 162 H (70-110) mg/dL Alkaline Phosphatase 301 H (38-126) U/L C-Reactive Protein (0.00-0.80) mg/dL Albumin 2.9 L (3.5-5.0) g/dL 10/23/24 Range/Units 11:44 Potassium (3.5-5.1) mmol/L BUN (9-20) mg/dL Creatinine (0.66-1.25) mg/dL Glucose (74-99) mg/dL POC Glucose (mg/dL) 147 H (70-110) mg/dL Alkaline Phosphatase (38-126) U/L C-Reactive Protein (0.00-0.80) mg/dL Albumin (3.5-5.0) g/dL Assessment and Plan Plan: Assessment: 1. Hypernatremia from lack of oral water intake. Status post D5W. Sodium level normal. 2. SMA syndrome. Surgery following. 3. Status post J-tube placement September 25, 2024. 4. Hypokalemia from poor intake. Status post replacement. Magnesium normal. 5. Alethea bacteremia. ID following. Plan: TPN per surgery. Off IV fluids.
[2024-10-23 12:00] LABS: Basophils # (M) 0.24 X 10*3/uL (0.00-0.10); Eosinophils # (M) 0.24 X 10*3/uL (0.04-0.35); HCT 27.4 % (39.6-50.0); HGB 8.9 g/dL (13.0-17.0); Lymphocytes # (M) 0.95 X 10*3/uL (0.90-5.00); MCH 29.7 pg (27.0-32.0); MCHC 32.5 g/dL (32.0-37.0); MCV 91.3 FL (80.0-97.0); Mean Platelet Volume 10.9 FL (9.5-12.2); Metamyelocytes % 2 % (0-0); Monocytes # (M) 0.71 X 10*3/uL (0.20-1.00); Myelocytes % 3 % (0-0); NRBC Per 100 WBC 0.04 X 10*3/uL (0.00-0.01); Neutrophils # (M) 20.43 X 10*3/uL (1.80-7.70); Neutrophils % (M) 86 %; Platelet Count 504 X 10*3/uL (140-440); RBC Morphology Normal (Normal); RDW 14.6 % (11.5-14.5); WBC 23.76 X 10*3/uL (4.50-10.00)
[2024-10-23] MEDS: 1: MVI, ADULT NO.4 WITH VIT K 10 ML, TRACE (CONC-1ML/DOSE) 1 ML, CALCIUM GLUCONATE 1 GM, IV SCH (13:25)
--- NOTE | 2024-10-23 14:02 | P.PN ---
Subjective Progress Note Date: 10/23/24 SURGICAL PROGRESS NOTE CHIEF COMPLAINT: Recurrent nausea and vomiting HISTORY OF PRESENT ILLNESS: Status post repair of fascial dehiscence upper incision of the midline incision on 10/03/24. Status post Rickie-en-Y gastrojejunostomy on 09/25/24. PEG O gram with Gastrografin reports contrast opacifies the gastric lumen and small bowel. Patient's PEG tube is to drainage. He did not tolerate tube feeds. Awaiting bed at [facility]. WBC is up from 17 to 23 PHYSICAL EXAM: VITAL SIGNS: Reviewed. GENERAL: no acute distress. ABDOMEN: Soft. Nondistended. midline incision with small amount of purulent drainage noted on the dressing at the middle of the incision. No erythema. Midline incision is nontender with palpation. With palpation of the incision unable to express any fluid from the incision. PEG tube to drainage ASSESSMENT: 1. SMA syndrome 2. Upper GI bleed with bright red blood and coffee-ground emesis. now resolved 3. Intractable nausea and vomiting 4. Chronic esophageal dysmotility disorder 5. Hiatal hernia 6. Esophagitis 7. Severe protein calorie malnutrition 8. Anemia secondary to malnutrition. 9. Fascial dehiscence of incision status post repair 10. Failure to thrive 11. Infection at midline incision PLAN: -IV Zosyn added for infection at midline incision -Nursing staff to remove francesco from midline incision -Continue to clean the midline incision with chlorhexidine wipe -Transfer to [facility] in progress. Awaiting bed availability -Repeat CBC in a.m. -Keep tube feeds on hold -Place PEG tube to drainage -Continue TPN -Antibiotics per ID service -DVT prophylaxis subcu heparin Physician [employer] note has been reviewed by physician. Signing provider agrees with the documented findings, assessment, and plan of care. Objective - Vital Signs Vital signs: Vital Signs Temp 98.2 F 10/23/24 08:00 Pulse 80 10/23/24 08:00 Resp 20 10/23/24 08:00 BP 123/85 10/23/24 08:00 Pulse Ox 100 10/23/24 08:00 FiO2 Intake & Output 10/22/24 10/23/24 10/23/24 18:59 06:59 18:59 Intake Total 1034 Output Total 500 100 250 Balance 534 -100 -250 Weight 54.5 kg 55.5 kg Intake: Intake, IV Titration 1034 Amount Calcium Gluconate 1 gm 1034 Magnesium Sulfate gm 0.5 gm Potassium Acetate 40 meq Potassium Phosphate 9 mmol In Amino Acids 5 %/ Dextrose 20 % 1,000 ml @ 80 mls/hr IV .BY DURATION [facility] Rx#:[id number] Output: Gastric Drainage 100 100 Drainage 150 Abdomen 150 Urine 250 Emesis 250 Other: Voiding Method Urinal Bedside Commode Bedside Commode Diaper Urinal Urinal Diaper Diaper # Voids 1 3 - Labs CBC & Chem 7: 10/23/24 05:49 10/23/24 05:49 Labs: Abnormal Lab Results - Last 24 Hours (Table) 10/22/24 10/22/24 10/22/24 Range/Units 14:47 18:01 23:47 WBC (4.50-10.00) X 10*3/uL RBC (4.40-5.60) X 10*6/uL Hgb (13.0-17.0) g/dL Hct (39.6-50.0) % RDW (11.5-14.5) % Plt Count (140-440) X 10*3/uL Neutrophils # (Manual) (1.80-7.70) X 10*3/uL Basophils # (Manual) (0.00-0.10) X 10*3/uL NRBC/100 WBC Diff (0.00-0.01) X 10*3/uL Potassium (3.5-5.1) mmol/L BUN (9-20) mg/dL Creatinine (0.66-1.25) mg/dL Glucose (74-99) mg/dL POC Glucose (mg/dL) 136 H 156 H (70-110) mg/dL Alkaline Phosphatase (38-126) U/L C-Reactive Protein 2.00 H (0.00-0.80) mg/dL Albumin (3.5-5.0) g/dL 10/23/24 10/23/24 10/23/24 Range/Units 05:11 05:49 05:49 WBC 23.76 H (4.50-10.00) X 10*3/uL RBC 3.00 L (4.40-5.60) X 10*6/uL Hgb 8.9 L (13.0-17.0) g/dL Hct 27.4 L (39.6-50.0) % RDW 14.6 H (11.5-14.5) % Plt Count 504 H (140-440) X 10*3/uL Neutrophils # (Manual) 20.43 H (1.80-7.70) X 10*3/uL Basophils # (Manual) 0.24 H (0.00-0.10) X 10*3/uL NRBC/100 WBC Diff 0.04 H (0.00-0.01) X 10*3/uL Potassium 5.2 H (3.5-5.1) mmol/L BUN 37 H (9-20) mg/dL Creatinine 0.64 L (0.66-1.25) mg/dL Glucose 152 H (74-99) mg/dL POC Glucose (mg/dL) 162 H (70-110) mg/dL Alkaline Phosphatase 301 H (38-126) U/L C-Reactive Protein (0.00-0.80) mg/dL Albumin 2.9 L (3.5-5.0) g/dL / Range/Units 11:44 WBC (4.50-10.00) X 10*3/uL RBC (4.40-5.60) X 10*6/uL Hgb (13.0-17.0) g/dL Hct (39.6-50.0) % RDW (11.5-14.5) % Plt Count (140-440) X 10*3/uL Neutrophils # (Manual) (1.80-7.70) X 10*3/uL Basophils # (Manual) (0.00-0.10) X 10*3/uL NRBC/100 WBC Diff (0.00-0.01) X 10*3/uL Potassium (3.5-5.1) mmol/L BUN (9-20) mg/dL Creatinine (0.66-1.25) mg/dL Glucose (74-99) mg/dL POC Glucose (mg/dL) 147 H (70-110) mg/dL Alkaline Phosphatase (38-126) U/L C-Reactive Protein (0.00-0.80) mg/dL Albumin (3.5-5.0) g/dL
[2024-10-23] MEDS: PIPERACILLIN-TAZOBACTAM 3.375 GM in SODIUM CHLORIDE 0.9% 100 ML IVPB SCH (15:54)
[2024-10-23 18:23] LABS: Glucose,Whole Blood 173 mg/dL (70-110)
[2024-10-24 00:15] LABS: Glucose,Whole Blood 161 mg/dL (70-110)
[2024-10-24 04:49] LABS: ALT 33 U/L (4-49); AST 27 U/L (17-59); African American GFR (CKD) >90 (>60 ml/min/1.73 sqM); Albumin 2.6 g/dL (3.5-5.0); Albumin/Globulin Ratio 0.8; Alkaline Phosphatase 259 U/L (38-126); Anion Gap 12 mmol/L; Blood Urea Nitrogen 37 mg/dL (9-20); Calcium 8.9 mg/dL (8.4-10.2); Carbon Dioxide 21 mmol/L (22-30); Chloride 103 mmol/L (98-107); Globulin 3.2 g/dL; Glucose 131 mg/dL (74-99); Non-African American GFR(CKD) >90 (>60 ml/min/1.73 sqM); Phosphorus 4.5 mg/dL (2.5-4.5); Potassium 4.6 mmol/L (3.5-5.1); Sodium 136 mmol/L (137-145); Total Bilirubin 0.3 mg/dL (0.2-1.3); Total Protein 5.8 g/dL (6.3-8.2)
--- NOTE | 2024-10-24 05:48 | P.PN ---
Subjective Progress Note Date: 10/23/24 This is a pleasant 68 years old male who was recently discharged from this facility about 4 days ago for nausea vomiting and malnutrition status post PEG tube placement by surgery team. Once he been discharged he started having recurrent nausea vomiting again, he vomited 6 times since yesterday with no blood. Associated with epigastric pain and tenderness His troponin was elevated but EKG showing SVT. He has been evaluated by [facility] emergency services manager as well during last admission for elevated troponin. Currently denies chest pain or dyspnea. No specific urinary symptoms. No headache dizziness weakness or numbness He is pain mainly in the epigastric area about 9/10 felt like squeezing nonradiating with no precipitating or relieving factors. He states that the pain is similar to last time. He has no bowel movement. He is using the PEG tube at home. He got Zofran 4 mg and is requesting more medicine He is hemodynamically stable and afebrile He has unremarkable CBC, BMP, LFT. WBC is mildly elevated at 10.4 at 11. Lactic acid 4.6 came back to normal at 1.7. Troponin is elevated 0.065. KUB showing nonspecific gas bowel pattern. EKG showed SVT with a rate of [address] depression in V3-V5 Patient lying in bed with no dyspnea or chest pain He is vomiting of blood today. He still has nausea vomiting. He was on Zofran 8 mg we will going to add Reglan IV 5 and then 10 mg. hemoglobin stable at 12.4 with slight improvement. Vital stable. He is not on any blood thinners or aspirin. His on Protonix IV twice daily added today Also we added D5 normal saline Discussed the case with surgery team. CT of the abdomen pelvis with IV contrast is requested. Currently patient denies any abdominal pain or epigastric tenderness. /10 No vomiting today, looks tired No abdominal pain or tenderness PEG tube is in place and feeding tube on hold He still getting IV fluids and Zosyn Plan for EGD today with surgery team given his hematemesis yesterday. Hemoglobin was stable yesterday at 11.3 Monitor hemoglobin Continue with Protonix He is getting Reglan [id number] which prevent him from vomiting 09/25 i came to see the pt twice and he was no in his room 09/26 Patient seen and examined at bedside. He is awake and alert ,he is status post Roex-en-Y gastrojejunostomy. Today postop day #1 He still complaining from epigastric pain and mild tenderness with PEG tube placement to gravity. Patient is not getting tube feeding Patient is getting D5W at 100 mL/h, sodium improved 150 down to 146 today Also patient is getting Zosyn WBC 16.1, hemoglobin 8.4 and sodium 146 Is getting Reglan 5 mg as needed will added 10 mg 09/27 Patient remains with GI symptoms. PEG tube to gravity and patient received TPN. Still with nausea and some abdominal/epigastric pain and tenderness although partially improved. No other new complaint. Labs look stable or slightly improving with sodium 147, hemoglobin 13 and WBC down to 11.3 Nephrology consult was obtained Patient started on normal saline at 100 mL/h and D5W was stopped 09/28 Patient states he is the same over the last 2 days he still have some epigastric pain and tenderness which looks the same also he has some nausea and vomiting although he was taking Reglan. Also patient WBC went up to 13.3. Hemoglobin down to 9.3 Sodium 148 potassium 3.1 Replace potassium per protocol Started on D5W at give Ativan x 1 to help with anxiety and with nausea vomiting 09/29 Patient developed significant tachycardia last night and this morning with heart rate going up to 150 and 160/min. EKG showing sinus tachycardia. Heart rate improved down to 100 and blood pressure stable with systolic 120-150 It is thought multifactorial secondary to anxiety dehydration infection electrolyte abnormalities and pain. D-dimer is ordered but the suspicion for PE is low Patient with no chest pain or dyspnea, actually patient this is the first time he told me he feels better since I saw him from admission. He was sitting in chair with slight weakness. He still getting TPN Zosyn. He getting D5W at 50 mL/h but sodium increased to 152 so increase the dose to 125 mL/h Dilaudid added IV Lopressor 5 mg every 8 hours and clonidine patch 0.1 mg Also low potassium and magnesium being replaced. 09/30 Patient is lethargic today with some nausea. He denies epigastric abdominal pain. He is still tachycardic with heart around 120 WBC is 14.5, hemoglobin 9.6 and He remains on D5W at 125 Eliquis dose lowered to 2.5 10/01 Patient today feels improved and better he denies chest pain or dyspnea no epigastric pain or tenderness significant than the other days. PEG tube still in place but not working. Still getting TPN He still tachycardic and blood pressure still slightly on the high side, he got 3 doses of Lopressor 5 mg IV yesterday, we will going to increase his clonidine patch 0.2 up to 0.3. He has CTA of the chest done yesterday for suspicion of PE, no pulm embolism found however there is lung nodule 1.1 cm that he needs follow-up in 3 months for report also there is bilateral groundglass opacities and nodular lesions suspicious for pneumonia versus aspiration pneumonia versus cryptogenic organizing pneumonia. Also there is retained material or secretions or food in the lower esophagus which cause more with aspiration pneumonitis. Patient remains on IV Protonix for esophagitis Therefore patient remains on IV Zosyn. Low potassium but replace per protocol today The other thing his hypernatremia significantly improved 122 yesterday and 124 today while he is on D5 W at 75 mL today compared to 125 yesterday Check labs in the morning 10/02 Today patient feels tired weak and sweaty Blood pressure is low normal, became slightly tachycardic 115. His heart rate is getting controlled with the clonidine patch 0.3 mg and now requiring only once daily dose of IV Lopressor 5 mg over the last 2 days. His albumin is 2.0. His sodium 138 he remains on D5W. He is still getting TPN Will give IV albumin 25 % x 1 Hemoglobin 9.1 10/03 Patient developed severe bleeding from his epigastric wound and his abdominal wall with hemoglobin dropped down to 6.8 and 6.3 received several units of blood transfusion. He was taking to the operating room emergently by surgery team and the bleeding was stopped and the wound was sutured again. After that patient was taken to the ICU 10/04 Patient awake alert He feels comfortable He still has expected tenderness at the surgical site Pain is treated with IV Tylenol per surgery team 10/05 Patient awake alert sitting up in bed He denies vomiting Abdominal pain is better Blood pressure 92/65 10/06 He still has some epigastric abdominal pain that comes and goes. He rated about 5-7/10. Yesterday was 10/10 which looks improving Surgical vertical wound is with a dressing in place Patient getting TPN. 10/07/2024 Patient is seen in follow-up today with general surgery following and patient is maintained on TPN. Sodium remains elevated at 149 and per pharmacy notes no further sodium noted in the TPN. Tube feeds remain on hold. Patient continues with J-tube to drainage noted to have some biliary drainage and patient remains NPO. Patient also being followed by pulmonary maintained on room air and is not reporting any shortness of breath. Patient currently afebrile although is having intermittent low-grade temps and maintained on IV Zosyn. Prognosis remains guarded. 10/08/2024 Patient seen in follow-up today with no significant improvements noted reporting continued nausea With vomiting today NG tube remains to drainage per general surgery and is continued on TPN. Sodium remains elevated at 149 and nephrology following as well adjusted IV hydration and will follow up on repeat labs. Patient did have a preliminary blood culture that was positive and infectious disease was consulted patient is maintained on Zosyn and repeat blood cultures pending. Concerns about possible PICC line contamination. Patient is afebrile with no reports of chest pain or shortness of breath. Encouraged to increase activity as tolerated although patient is mostly bedbound. Prognosis is guarded. 10/09/2024 Patient is seen in follow-up today with multiple consultations following. Patient is status post fascial dehiscence repair of the upper incision of the midline incision and also Rickie-en-Y gastrojejunostomy placement and tube was flushed and appears to be functioning with no further vomiting noted. Patient continues on TPN and PEG tube to drainage and will continue. White blood count is improving and hemoglobin remained stable with no bleeding noted. Infectious disease has been consulted maintained on Zosyn and awaiting cultures with initial preliminary blood culture showing molecular ID along with Alethea albicans. No vomiting noted today. Patient remains NPO. Nephrology following and has transitioned hydration with increased rate and sodium is improved at 141 today, potassium is 3.8, BUN is 34 with a creatinine of 0.79. Magnesium is 1.5 and will be replaced ALT/AST are mildly elevated and trending down. Patient is significantly weak and recommend PT/OT therapy daily and getting out of the bed more frequently. No bowel movements in the last few days and would recommend bowel regimen. 10/10/2024 Patient is seen in follow-up today reporting still feeling improved and is inquiring about when he can go home. Patient reported to surgery he had a bowel movement although unsure if this was true. Patient denies any further nausea or vomiting at this time and PEG tube remains to drainage. Patient is continued on TPN and will replace electrolytes per protocol. Nephrology following as well and sodium is improving and will continue current regimen. Per PT/OT therapy notes, patient would benefit from rehab for continued strength mobility due to significant weakness and prolonged hospitalization. 10/11/2024 Patient was seen and evaluated today is more awake sitting up in bed with multiple consultations following scheduled to undergo CT abdomen per ID recommendations for further evaluation of possible abdominal source. PICC line is being removed and will be sent for culture and will be replaced as patient is maintained on TPN. General surgery following as well and primary surgeon will be returning Monday and to further discuss today's CT findings along with repeat surgery in the near future. Patient is continued on n.p.o. diet for now and PEG tube is continued to drainage and noted to be bilious. Patient is significantly weak and is attempting to work with physical therapy and get up to the bedside. Patient has been incontinent of urine secondary to significant weakness. Recommend physical therapy daily for continued strength and mobility. Encourage sitting up in the chair more frequently. Case management/social work is following regarding inquiring if TPN is a covered benefit if required outpatient and also the possible need for ECF. Patient is afebrile and white count is normal and blood cultures initially showing Alethea and is maintained on antifungal awaiting repeat cultures. 10/22/2024 Patient is seen in follow-up today who continues to be n.p.o. maintained on TPN with surgery following along with infectious disease and does have a PICC line that has been replaced as previous PICC line was growing Alethea. Repeat cultures have been negative and will continue current regimen. Patient continues to await a bed at [facility] for tertiary treatment and evaluation with surgery and GI. Transfer team was contacted and patient is next in line to receive a bed in regards to outside facility transfers. White count mildly elevated today although patient is afebrile and will follow-up on repeat labs. 10/23/2024 Patient is seen in follow-up today sleeping although arousable and mostly nonverbal at times. Patient remains with p.o. and has a PEG tube to drainage and tube feeds are on hold maintained on TPN. Plan is for transfer to [facility] although continuing to await a bed. Have contacted transfer team and still no bed available. Will follow-up and recommend to continue with transfer for further tertiary treatment. Patient is maintained on antibiotics and had a mildly elevated white count and mid abdominal surgical site appears to be slightly reddened per surgery and some francesco are being removed. Monitor closely for infection and will continue current skin care and IV antibiotic therapy at this time. Prognosis remains guarded at this time. Will follow-up on repeat labs. Review of systems: Constitutional: No reports of fatigue, fever, or chills Cardiovascular: No reports of chest pain or palpitations Respiratory: No reports of shortness of breath or cough GI: No reports of nausea, vomiting, or diarrhea today, patient reports having a bowel movement : No reports of dysuria or retention Neurovascular: reports of weakness but reports would like to go home All medications have been reviewed Physical exam: GENERAL: The patient is asleep although arousable, alert and oriented x2, not in any acute distress. Appears older than stated age, well developed, ill- appearing, cachectic, significant muscle wasting noted. Thin built HEENT: Pupils are round and equally reacting to light. EOMI. No scleral icterus. No conjunctival pallor. Normocephalic, atraumatic. No pharyngeal erythema. No thyromegaly. CARDIOVASCULAR: S1 and S2 muffled, less tachycardic PULMONARY: Diminished breath sounds bilaterally otherwise chest is clear to auscultation, no wheezing , no crackles. ABDOMEN: Soft, nontender, nondistended, hypoactive bowel sounds. No palpable organomegaly. PEG tube is in place with no Abdominal tenderness or guarding, midline incision with some redness noted, some francesco being removed MUSCULOSKELETAL: No joint swelling or deformity. EXTREMITIES: No cyanosis, clubbing, or pedal edema. NEUROLOGICAL: Gross neurological examination did not reveal any focal deficits. Diffusely weak SKIN: No rashes. no petechiae. Assessment SMA syndrome status post gastrojejunostomy and J-tube placement on 09/25 Intractable nausea vomiting and upper GI bleed secondary to above, improvement Positive blood culture, concern for possible PICC line contamination, PICC line being replaced and will be sent for culture, Alethea albicans on cultures Fascial wound dehiscence on 10/03 status post emergent surgical repair requiring multiple blood transfusion Elevated white count with some drainage noted on midline surgical incision, with erythema and drainage, concerns for infection Bilateral aspiration pneumonia suspected and patient is continued on Zosyn Hypernatremia, improved, maintained on TPN Recurrent nausea vomiting, intractable requiring PEG tube placement during last admission. Epigastric pain and tenderness could be secondary to gastritis, status post Roex-en-Y gastrojejunostomy. S/p G-tube placement Severe calorie protein malnutrition with a BMI of 11.6 Sinus tachycardia versus SVT requiring metoprolol clonidine patch, better controlled Elevated troponin could be secondary to SVT related dehydration, evaluated by cardiology during last admission Hypertension Hyperlipidemia Anxiety/depression, not on active issue Distal esophagitis Hiatal hernia seen on recent EKG GI prophylaxis DVT prophylaxis Full code Plan: Patient is being closely monitored with multiple consultations following including infectious disease as patient had a blood culture positive from 10/06/2024. Repeat blood culture and pending at this time although preliminary has been negative thus far. Previous blood culture preliminary showing Alethea. General surgery following as well. There is a concern for some redness and drainage at the surgical site and some sutures are being removed recommend monitoring closely and continued wound care. Patient to continue on antibiotics. Patient remains n.p.o. maintained on TPN and tube feedings are also on hold per surgery. PEG tube remains to drainage. General surgery recommended a transfer for tertiary treatment with general surgery and/or GI consultation. Patient has been accepted at [facility] by Dr. Orosco and remains to be awaiting a bed availability pending discharges. [facility] is extremely full and per transfer team today, 10/23/2024 patient is next in line to receive a bed from outside transfers Follow-up on repeat labs and replace electrolytes per protocol Would recommend increased activity as tolerated and will recommend PT/OT therapy daily. Overall prognosis is extremely guarded at this time The impression and plan of care has been dictated by Yanira Linda, Nurse Practitioner as directed. Dr. Jamir MD I have performed a history and examination and MDM of this patient, discussed the same with the dictator, and agree with the dictator's assessment and plan as written ,documented as a scribe. Based on total visit time, I have performed more than 50% of the visit. Objective - Vital Signs Vital signs: Vital Signs Temp 98.1 F 10/24/24 00:50 Pulse 86 10/24/24 00:50 Resp 16 10/24/24 00:50 BP 108/70 10/24/24 00:50 Pulse Ox 98 10/24/24 00:50 FiO2 Intake & Output 10/23/24 10/23/24 10/24/24 06:59 18:59 06:59 Output Total 100 250 500 Balance -100 -250 -500 Weight 55.5 kg Output: Gastric Drainage 100 Urine 250 300 Emesis 200 Other: Voiding Method Bedside Commode Bedside Commode Bedside Commode Urinal Urinal Urinal Diaper Diaper Diaper # Voids 3 - Labs CBC & Chem 7: 10/23/24 05:49 10/24/24 03:43 Labs: Abnormal Lab Results - Last 24 Hours (Table) 10/23/24 10/23/24 10/23/24 Range/Units 05:49 05:49 11:44 WBC 23.76 H (4.50-10.00) X 10*3/uL RBC 3.00 L (4.40-5.60) X 10*6/uL Hgb 8.9 L (13.0-17.0) g/dL Hct 27.4 L (39.6-50.0) % RDW 14.6 H (11.5-14.5) % Plt Count 504 H (140-440) X 10*3/uL Neutrophils # (Manual) 20.43 H (1.80-7.70) X 10*3/uL Basophils # (Manual) 0.24 H (0.00-0.10) X 10*3/uL NRBC/100 WBC Diff 0.04 H (0.00-0.01) X 10*3/uL Sodium (137-145) mmol/L Potassium 5.2 H (3.5-5.1) mmol/L Carbon Dioxide (22-30) mmol/L BUN 37 H (9-20) mg/dL Creatinine 0.64 L (0.66-1.25) mg/dL Glucose 152 H (74-99) mg/dL POC Glucose (mg/dL) 147 H (70-110) mg/dL Alkaline Phosphatase 301 H (38-126) U/L Total Protein (6.3-8.2) g/dL Albumin 2.9 L (3.5-5.0) g/dL 10/23/24 10/24/24 10/24/24 Range/Units 18:22 00:12 03:43 WBC (4.50-10.00) X 10*3/uL RBC (4.40-5.60) X 10*6/uL Hgb (13.0-17.0) g/dL Hct (39.6-50.0) % RDW (11.5-14.5) % Plt Count (140-440) X 10*3/uL Neutrophils # (Manual) (1.80-7.70) X 10*3/uL Basophils # (Manual) (0.00-0.10) X 10*3/uL NRBC/100 WBC Diff (0.00-0.01) X 10*3/uL Sodium 136 L (137-145) mmol/L Potassium (3.5-5.1) mmol/L Carbon Dioxide 21 L (22-30) mmol/L BUN 37 H (9-20) mg/dL Creatinine (0.66-1.25) mg/dL Glucose 131 H (74-99) mg/dL POC Glucose (mg/dL) 173 H 161 H (70-110) mg/dL Alkaline Phosphatase 259 H (38-126) U/L Total Protein 5.8 L (6.3-8.2) g/dL Albumin 2.6 L (3.5-5.0) g/dL Microbiology - Last 24 Hours (Table) 10/22/24 14:47 Blood Culture - Preliminary Blood
[2024-10-24 06:20] LABS: Glucose,Whole Blood 149 mg/dL (70-110)
[2024-10-24 08:13] LABS: HCT 26.4 % (39.6-50.0); HGB 8.2 g/dL (13.0-17.0); MCH 29.1 pg (27.0-32.0); MCHC 31.1 g/dL (32.0-37.0); MCV 93.6 FL (80.0-97.0); Mean Platelet Volume 11.1 FL (9.5-12.2); NRBC Per 100 WBC 0.06 X 10*3/uL (0.00-0.01); Platelet Count 430 X 10*3/uL (140-440); RBC 2.82 X 10*6/uL (4.40-5.60); RDW 14.6 % (11.5-14.5); WBC 18.67 X 10*3/uL (4.50-10.00)
[2024-10-24 09:47] LABS: Basophils # (M) 0 X 10*3/uL (0.00-0.10); Eosinophils # (M) 0.56 X 10*3/uL (0.04-0.35); Lymphocytes # (M) 1.12 X 10*3/uL (0.90-5.00); Metamyelocytes % 1 % (0-0); Monocytes # (M) 0.75 X 10*3/uL (0.20-1.00); Myelocytes % 4 % (0-0); Neutrophils # (M) 15.31 X 10*3/uL (1.80-7.70); Neutrophils % (M) 82 %; RBC Morphology Normal (Normal)
--- NOTE | 2024-10-24 11:28 | P.PN ---
Subjective Patient is seen in follow-up for hypernatremia. Sodium level stable at 136 today. Receiving TPN. Remains NPO. Vital signs are stable. General: No acute distress. HEENT: Head exam is unremarkable. LUNGS: No audible rhonchi or wheezes. HEART: Rate and Rhythm are regular. ABDOMEN: J-tube noted. EXTREMITITES: No edema. Objective - Vital Signs Vital signs: Vital Signs Temp 98.7 F 10/24/24 07:05 Pulse 72 10/24/24 07:05 Resp 16 10/24/24 07:05 BP 119/79 10/24/24 07:05 Pulse Ox 98 10/24/24 07:05 FiO2 Intake & Output 10/23/24 10/24/24 10/24/24 18:59 06:59 18:59 Output Total 250 500 Balance -250 -500 Weight 56 kg Output: Urine 250 300 Emesis 200 Other: Voiding Method Bedside Commode Bedside Commode Urinal Urinal Diaper Diaper - Labs CBC & Chem 7: 10/24/24 03:43 10/24/24 03:43 Labs: Abnormal Lab Results - Last 24 Hours (Table) 10/23/24 10/23/24 10/23/24 Range/Units 05:49 11:44 18:22 WBC 23.76 H (4.50-10.00) X 10*3/uL RBC 3.00 L (4.40-5.60) X 10*6/uL Hgb 8.9 L (13.0-17.0) g/dL Hct 27.4 L (39.6-50.0) % MCHC (32.0-37.0) g/dL RDW 14.6 H (11.5-14.5) % Plt Count 504 H (140-440) X 10*3/uL Neutrophils # (Manual) 20.43 H (1.80-7.70) X 10*3/uL Eosinophils # (Manual) (0.04-0.35) X 10*3/uL Basophils # (Manual) 0.24 H (0.00-0.10) X 10*3/uL NRBC/100 WBC Diff 0.04 H (0.00-0.01) X 10*3/uL Sodium (137-145) mmol/L Carbon Dioxide (22-30) mmol/L BUN (9-20) mg/dL Glucose (74-99) mg/dL POC Glucose (mg/dL) 147 H 173 H (70-110) mg/dL Alkaline Phosphatase (38-126) U/L Total Protein (6.3-8.2) g/dL Albumin (3.5-5.0) g/dL 10/24/24 10/24/24 10/24/24 Range/Units 00:12 03:43 03:43 WBC 18.67 H (4.50-10.00) X 10*3/uL RBC 2.82 L (4.40-5.60) X 10*6/uL Hgb 8.2 L (13.0-17.0) g/dL Hct 26.4 L (39.6-50.0) % MCHC 31.1 L (32.0-37.0) g/dL RDW 14.6 H (11.5-14.5) % Plt Count (140-440) X 10*3/uL Neutrophils # (Manual) 15.31 H (1.80-7.70) X 10*3/uL Eosinophils # (Manual) 0.56 H (0.04-0.35) X 10*3/uL Basophils # (Manual) (0.00-0.10) X 10*3/uL NRBC/100 WBC Diff 0.06 H (0.00-0.01) X 10*3/uL Sodium 136 L (137-145) mmol/L Carbon Dioxide 21 L (22-30) mmol/L BUN 37 H (9-20) mg/dL Glucose 131 H (74-99) mg/dL POC Glucose (mg/dL) 161 H (70-110) mg/dL Alkaline Phosphatase 259 H (38-126) U/L Total Protein 5.8 L (6.3-8.2) g/dL Albumin 2.6 L (3.5-5.0) g/dL 10/24/24 Range/Units 06:18 WBC (4.50-10.00) X 10*3/uL RBC (4.40-5.60) X 10*6/uL Hgb (13.0-17.0) g/dL Hct (39.6-50.0) % MCHC (32.0-37.0) g/dL RDW (11.5-14.5) % Plt Count (140-440) X 10*3/uL Neutrophils # (Manual) (1.80-7.70) X 10*3/uL Eosinophils # (Manual) (0.04-0.35) X 10*3/uL Basophils # (Manual) (0.00-0.10) X 10*3/uL NRBC/100 WBC Diff (0.00-0.01) X 10*3/uL Sodium (137-145) mmol/L Carbon Dioxide (22-30) mmol/L BUN (9-20) mg/dL Glucose (74-99) mg/dL POC Glucose (mg/dL) 149 H (70-110) mg/dL Alkaline Phosphatase (38-126) U/L Total Protein (6.3-8.2) g/dL Albumin (3.5-5.0) g/dL Microbiology - Last 24 Hours (Table) 10/22/24 14:47 Blood Culture - Preliminary Blood Assessment and Plan Plan: Assessment: 1. Hypernatremia from lack of oral water intake. Status post D5W. Sodium level normal. 2. SMA syndrome. Surgery following. 3. Status post J-tube placement September 25, 2024. 4. Hypokalemia from poor intake. Status post replacement. Magnesium normal. 5. Alethea bacteremia. ID following. Plan: TPN per surgery. Off IV fluids. No changes from nephrology standpoint.
[2024-10-24 12:24] LABS: Glucose,Whole Blood 168 mg/dL (70-110)
--- NOTE | 2024-10-24 13:18 | P.PN ---
Subjective Progress Note Date: 10/24/24 SURGICAL PROGRESS NOTE CHIEF COMPLAINT: Recurrent nausea and vomiting HISTORY OF PRESENT ILLNESS: Status post repair of fascial dehiscence upper incision of the midline incision on 10/03/24. Status post Rickie-en-Y gastrojejunostomy on 09/25/24. PEG O gram with Gastrografin reports contrast opacifies the gastric lumen and small bowel. Patient's PEG tube is to drainage. He did not tolerate tube feeds. Awaiting bed at [facility]. Zosyn started yesterday for drainage from incision site. White count has decreased from 23-18.6 PHYSICAL EXAM: VITAL SIGNS: Reviewed. GENERAL: no acute distress. ABDOMEN: Soft. Nondistended. Midline incision francesco removed. Small amount of drainage noted on dressing. No erythema at incision site. Nontender with palpation ASSESSMENT: 1. SMA syndrome 2. Upper GI bleed with bright red blood and coffee-ground emesis. now resolved 3. Intractable nausea and vomiting 4. Chronic esophageal dysmotility disorder 5. Hiatal hernia 6. Esophagitis 7. Severe protein calorie malnutrition 8. Anemia secondary to malnutrition. 9. Fascial dehiscence of incision status post repair 10. Failure to thrive 11. Infection at midline incision PLAN: -Transfer and progress to [facility]. Awaiting bed availability. -Continue antibiotic for infection at midline incision -IV Zosyn added for infection at midline incision -Continue to clean midline incision daily -Keep tube feeds on hold -Place PEG tube to drainage -Continue TPN -DVT prophylaxis subcu heparin Physician Window Trimmer Apprentice note has been reviewed by physician. Signing provider agrees with the documented findings, assessment, and plan of care. Objective - Vital Signs Vital signs: Vital Signs Temp 98.7 F 10/24/24 07:05 Pulse 72 10/24/24 07:05 Resp 16 10/24/24 07:05 BP 119/79 10/24/24 07:05 Pulse Ox 98 10/24/24 07:05 FiO2 Intake & Output 10/23/24 10/24/24 10/24/24 18:59 06:59 18:59 Output Total 250 500 Balance -250 -500 Weight 56 kg Output: Urine 250 300 Emesis 200 Other: Voiding Method Bedside Commode Bedside Commode Urinal Urinal Diaper Diaper - Labs CBC & Chem 7: 10/24/24 03:43 10/24/24 03:43 Labs: Abnormal Lab Results - Last 24 Hours (Table) 10/23/24 10/24/24 10/24/24 Range/Units 18:22 00:12 03:43 WBC (4.50-10.00) X 10*3/uL RBC (4.40-5.60) X 10*6/uL Hgb (13.0-17.0) g/dL Hct (39.6-50.0) % MCHC (32.0-37.0) g/dL RDW (11.5-14.5) % Neutrophils # (Manual) (1.80-7.70) X 10*3/uL Eosinophils # (Manual) (0.04-0.35) X 10*3/uL NRBC/100 WBC Diff (0.00-0.01) X 10*3/uL Sodium 136 L (137-145) mmol/L Carbon Dioxide 21 L (22-30) mmol/L BUN 37 H (9-20) mg/dL Glucose 131 H (74-99) mg/dL POC Glucose (mg/dL) 173 H 161 H (70-110) mg/dL Alkaline Phosphatase 259 H (38-126) U/L Total Protein 5.8 L (6.3-8.2) g/dL Albumin 2.6 L (3.5-5.0) g/dL 10/24/24 10/24/24 10/24/24 Range/Units 03:43 06:18 12:23 WBC 18.67 H (4.50-10.00) X 10*3/uL RBC 2.82 L (4.40-5.60) X 10*6/uL Hgb 8.2 L (13.0-17.0) g/dL Hct 26.4 L (39.6-50.0) % MCHC 31.1 L (32.0-37.0) g/dL RDW 14.6 H (11.5-14.5) % Neutrophils # (Manual) 15.31 H (1.80-7.70) X 10*3/uL Eosinophils # (Manual) 0.56 H (0.04-0.35) X 10*3/uL NRBC/100 WBC Diff 0.06 H (0.00-0.01) X 10*3/uL Sodium (137-145) mmol/L Carbon Dioxide (22-30) mmol/L BUN (9-20) mg/dL Glucose (74-99) mg/dL POC Glucose (mg/dL) 149 H 168 H (70-110) mg/dL Alkaline Phosphatase (38-126) U/L Total Protein (6.3-8.2) g/dL Albumin (3.5-5.0) g/dL Microbiology - Last 24 Hours (Table) 10/22/24 14:47 Blood Culture - Preliminary Blood
[2024-10-24 14:17] VITALS: BP 100/64; PULSE 83; RESP 14; TEMP 98.4
--- NOTE | 2024-10-24 15:43 | P.PN ---
Subjective Progress Note Date: 10/23/24 Principal diagnosis: Reason for follow-up is candidemia Patient is a 68-year-old male with multiple comorbidities and did have a PEG tube placement on 09/02/2024 subsequent admission to the hospital for intractable nausea and vomiting patient did have a Rickie-en-Y gastrojejunostomy and on 10/03/2024 and subsequent fascial dehiscence that was repaired he did spike a fever and blood cultures came back positive with Alethea prompted this consultation. On today's evaluation that is 10/23/2024, patient has been afebrile, patient is breathing comfortably and is currently on room air, patient denies having any chest pain but did have occasional cough, patient denies nausea vomiting abdominal pain is currently controlled. Patient white count jumped to 23.76 creatinine 0.64 Objective - Vital Signs Vital signs: Vital Signs Temp 98 F 10/23/24 20:00 Pulse 85 10/23/24 20:00 Resp 16 10/23/24 20:00 BP 120/68 10/23/24 20:00 Pulse Ox 97 10/23/24 20:00 FiO2 Intake & Output 10/23/24 10/23/24 10/24/24 06:59 18:59 06:59 Output Total 100 250 Balance -100 -250 Weight 55.5 kg Output: Gastric Drainage 100 Urine 250 Other: Voiding Method Bedside Commode Bedside Commode Urinal Urinal Diaper Diaper # Voids 3 - Exam GENERAL DESCRIPTION: An elderly male lying in bed in no distress RESPIRATORY SYSTEM: Unlabored breathing , decreased breath sounds at bases HEART: S1 S2 regular rate and rhythm , ABDOMEN: Soft , no tenderness EXTREMITIES: No edema feet - Labs CBC & Chem 7: 10/24/24 03:43 10/24/24 03:43 Labs: Abnormal Lab Results - Last 24 Hours (Table) 10/22/24 10/23/24 10/23/24 Range/Units 23:47 05:11 05:49 WBC (4.50-10.00) X 10*3/uL RBC (4.40-5.60) X 10*6/uL Hgb (13.0-17.0) g/dL Hct (39.6-50.0) % RDW (11.5-14.5) % Plt Count (140-440) X 10*3/uL Neutrophils # (Manual) (1.80-7.70) X 10*3/uL Basophils # (Manual) (0.00-0.10) X 10*3/uL NRBC/100 WBC Diff (0.00-0.01) X 10*3/uL Potassium 5.2 H (3.5-5.1) mmol/L BUN 37 H (9-20) mg/dL Creatinine 0.64 L (0.66-1.25) mg/dL Glucose 152 H (74-99) mg/dL POC Glucose (mg/dL) 156 H 162 H (70-110) mg/dL Alkaline Phosphatase 301 H (38-126) U/L Albumin 2.9 L (3.5-5.0) g/dL 10/23/24 10/23/24 10/23/24 Range/Units 05:49 11:44 18:22 WBC 23.76 H (4.50-10.00) X 10*3/uL RBC 3.00 L (4.40-5.60) X 10*6/uL Hgb 8.9 L (13.0-17.0) g/dL Hct 27.4 L (39.6-50.0) % RDW 14.6 H (11.5-14.5) % Plt Count 504 H (140-440) X 10*3/uL Neutrophils # (Manual) 20.43 H (1.80-7.70) X 10*3/uL Basophils # (Manual) 0.24 H (0.00-0.10) X 10*3/uL NRBC/100 WBC Diff 0.04 H (0.00-0.01) X 10*3/uL Potassium (3.5-5.1) mmol/L BUN (9-20) mg/dL Creatinine (0.66-1.25) mg/dL Glucose (74-99) mg/dL POC Glucose (mg/dL) 147 H 173 H (70-110) mg/dL Alkaline Phosphatase (38-126) U/L Albumin (3.5-5.0) g/dL Microbiology - Last 24 Hours (Table) 10/22/24 14:47 Blood Culture - Preliminary Blood Assessment and Plan (1) Sepsis Current Visit: Yes Status: Acute Code(s): A41.9 - SEPSIS, UNSPECIFIED ORGANISM SNOMED Code(s): 72791835 (2) Candidemia Current Visit: Yes Status: Acute Code(s): B37.7 - CANDIDAL SEPSIS SNOMED Code(s): 750688040 Plan: 1patient with a complicated history in this patient has been in the hospital for almost a month before this initial consultation on 10/08/2024 with the presentation with intractable nausea vomiting in this patient with status post Rickie-en-Y gastrojejunostomy on 09/25/2024 did have a subsequent fascial dehisce nce requiring surgical repair and the patient did spike a fever on 10/06/2024 with a blood culture no positive for candidemia he did have a last CT on 10/03/2024 did not show any concern for an abscess with a possible source could be PICC line which has been there for almost a month however underlying abdominal source not done excluded. 2blood culture has been repeated from the PICC which is growing Alethea and peripheral blood cultures has been negative 3-patient did have repeat CT abdominal pelvis concerning for some fluid collection General Surgery is following the patient and is recommending transfer to tertiary care which is currently in progress 4patient noted to have worsening of his white count but no fever blood culture repeated Zosyn has been restarted continue with Eraxis Dictation was produced using [employer] dictation software. please excuse any grammatical, word or spelling errors. Time with Patient: Less than 30
--- NOTE | 2024-10-24 15:44 | P.PN ---
Subjective Progress Note Date: 10/24/24 Principal diagnosis: Reason for follow-up is candidemia Patient is a 68-year-old male with multiple comorbidities and did have a PEG tube placement on 09/02/2024 subsequent admission to the hospital for intractable nausea and vomiting patient did have a Rickie-en-Y gastrojejunostomy and on 10/03/2024 and subsequent fascial dehiscence that was repaired he did spike a fever and blood cultures came back positive with Alethea prompted this consultation. On today's evaluation that is 10/24/2024, Patient is afebrile this morning patient denies having any chest pain shortness of breath or cough, the patient is currently on room air, patient denies any nausea vomiting abdominal pain is controlled, some drainage from the lower end of the incision as reported by [facility] for admitting team Patient white count is down to 18.67 creatinine 0.76 blood culture repeat so far negative Objective - Vital Signs Vital signs: Vital Signs Temp 98.4 F 10/24/24 13:21 Pulse 83 10/24/24 13:21 Resp 14 10/24/24 13:21 BP 100/64 10/24/24 13:21 Pulse Ox 98 10/24/24 13:21 FiO2 Intake & Output 10/23/24 10/24/24 10/24/24 18:59 06:59 18:59 Intake Total 1034 Output Total 250 500 Balance -250 534 Weight 56 kg Intake: Intake, IV Titration 1034 Amount Mvi, Adult No.4 with Vit 1034 K 10 ml Trace (Conc-1Ml/ Dose) 1 ml Calcium Gluconate 1 gm Magnesium Sulfate gm 0.5 gm Potassium Acetate 20 meq Potassium Phosphate 6 mmol In Amino Acids 5 %/ Dextrose 20 % 1,000 ml @ 80 mls/hr IV .BY DURATION [facility] Rx#:[id number] Output: Urine 250 300 Emesis 200 Other: Voiding Method Bedside Commode Bedside Commode Urinal Urinal Diaper Diaper - Exam GENERAL DESCRIPTION: An elderly male lying in bed in no distress RESPIRATORY SYSTEM: Unlabored breathing , decreased breath sounds at bases HEART: S1 S2 regular rate and rhythm , ABDOMEN: Soft , no tenderness EXTREMITIES: No edema feet - Labs CBC & Chem 7: 10/24/24 03:43 10/24/24 03:43 Labs: Abnormal Lab Results - Last 24 Hours (Table) 10/23/24 10/24/24 10/24/24 Range/Units 18:22 00:12 03:43 WBC (4.50-10.00) X 10*3/uL RBC (4.40-5.60) X 10*6/uL Hgb (13.0-17.0) g/dL Hct (39.6-50.0) % MCHC (32.0-37.0) g/dL RDW (11.5-14.5) % Neutrophils # (Manual) (1.80-7.70) X 10*3/uL Eosinophils # (Manual) (0.04-0.35) X 10*3/uL NRBC/100 WBC Diff (0.00-0.01) X 10*3/uL Sodium 136 L (137-145) mmol/L Carbon Dioxide 21 L (22-30) mmol/L BUN 37 H (9-20) mg/dL Glucose 131 H (74-99) mg/dL POC Glucose (mg/dL) 173 H 161 H (70-110) mg/dL Alkaline Phosphatase 259 H (38-126) U/L Total Protein 5.8 L (6.3-8.2) g/dL Albumin 2.6 L (3.5-5.0) g/dL 10/24/24 10/24/24 10/24/24 Range/Units 03:43 06:18 12:23 WBC 18.67 H (4.50-10.00) X 10*3/uL RBC 2.82 L (4.40-5.60) X 10*6/uL Hgb 8.2 L (13.0-17.0) g/dL Hct 26.4 L (39.6-50.0) % MCHC 31.1 L (32.0-37.0) g/dL RDW 14.6 H (11.5-14.5) % Neutrophils # (Manual) 15.31 H (1.80-7.70) X 10*3/uL Eosinophils # (Manual) 0.56 H (0.04-0.35) X 10*3/uL NRBC/100 WBC Diff 0.06 H (0.00-0.01) X 10*3/uL Sodium (137-145) mmol/L Carbon Dioxide (22-30) mmol/L BUN (9-20) mg/dL Glucose (74-99) mg/dL POC Glucose (mg/dL) 149 H 168 H (70-110) mg/dL Alkaline Phosphatase (38-126) U/L Total Protein (6.3-8.2) g/dL Albumin (3.5-5.0) g/dL Microbiology - Last 24 Hours (Table) 10/22/24 14:47 Blood Culture - Preliminary Blood Assessment and Plan (1) Sepsis Current Visit: Yes Status: Acute Code(s): A41.9 - SEPSIS, UNSPECIFIED ORGANISM SNOMED Code(s): 91527061 (2) Candidemia Current Visit: Yes Status: Acute Code(s): B37.7 - CANDIDAL SEPSIS SNOMED Code(s): 114079300 Plan: 1patient with a complicated history in this patient has been in the hospital for almost a month before this initial consultation on 10/08/2024 with the presentation with intractable nausea vomiting in this patient with status post Rickie-en-Y gastrojejunostomy on 09/25/2024 did have a subsequent fascial dehiscence requiring surgical repair and the patient did spike a fever on 10/06/2024 with a blood culture no positive for candidemia he did have a last CT on 10/03/2024 did not show any concern for an abscess with a possible source could be PICC line which has been there for almost a month however underlying abdominal source not done excluded. 2blood culture has been repeated from the PICC which is growing Alethea and peripheral blood cultures has been negative 3-patient did have repeat CT abdominal pelvis concerning for some fluid collection General Surgery is following the patient and is recommending transfer to tertiary care which is currently in progress 4patient remains to be afebrile white count is trending down recommend to obtain the culture from the abdominal incision which is draining continue with Zosyn and Eraxis, prognosis guarded Dictation was produced using [email or web address] dictation software. please excuse any grammatical, word or spelling errors. Time with Patient: Less than 30
[2024-10-24 18:06] LABS: Glucose,Whole Blood 165 mg/dL (70-110)
--- NOTE | 2024-10-24 18:38 | P.DS ---
Providers Date of admission: 09/09/24 23:23 Expected date of discharge: 10/24/24 Attending physician: Magda Bowie Consults: 09/10/24 08:29 Consult Physician Routine Consulting Provider: Kashmir Odell Consult Reason/Comments: svt with high troponin Do you want consulting provider notified?: Yes 09/10/24 11:26 Consult Physician Routine Consulting Provider: Rickie Pavon Consult Reason/Comments: known Do you want consulting provider notified?: Already Contacted 09/10/24 12:46 Consult Physician Routine Consulting Provider: Psychiatry - [facility] Consult Reason/Comments: depression Do you want consulting provider notified?: Already Contacted 09/26/24 04:18 Consult Physician Routine Consulting Provider: Antwon Mckeon Consult Reason/Comments: HR sustaining 130's Do you want consulting provider notified?: Yes, Notify in am 09/26/24 11:10 Consult Physician Routine Consulting Provider: Zak Lamas Consult Reason/Comments: Hypernatremia, tachycardia, on TPN, strict NPO, possible free water deficit Do you want consulting provider notified?: Yes 10/08/24 03:06 Consult Physician Routine Consulting Provider: Jackie Troy Consult Reason/Comments: Positive blood culture Do you want consulting provider notified?: Yes, Notify in am Primary care physician: Misael Hopkins Hospital Course: 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 Fascial wound dehiscence on 10/03 status post emergent surgical repair requiring multiple blood transfusion Postoperative seroma versus developing abscess Bilateral aspiration pneumonia suspected and patient is continued on Zosyn Hypernatremia, improving and trending down at 140 today Increase white count with some drainage noted at the top of the surgical site and the previous fascial wound dehiscence that was repaired on 10/03/2024, will obtain culture and monitor closely with concerns of infection, infectious diseases following Recurrent nausea vomiting, intractable requiring PEG tube placement during last admission. Hypovolemic shock requiring multiple blood transfusions secondary to Fascial wound dehiscence on 10/03 status post emergent surgical repair and close ICU monitoring, improved and out of the ICU Epigastric pain and tenderness could be secondary to gastritis, status post Roex-en-Y gastrojejunostomy. S/p G-tube placement Severe calorie protein malnutrition with a BMI of 11.6 Sinus tachycardia versus SVT requiring metoprolol clonidine patch, better controlled Elevated troponin could be secondary to SVT related dehydration, evaluated by cardiology during last admission Hypertension Hyperlipidemia Anxiety/depression, not on active issue Distal esophagitis Hiatal hernia seen on recent EKG GI prophylaxis DVT prophylaxis Full code Discharge disposition Patient is being transferred in a stable condition with guarded prognosis to [facility] in [place]. Patient has been accepted by Dr. Orosco medicine team initially and reconference was given to Dr. Osorio on 10/24/2024 with GI and general surgery on consult . Patient currently awaiting a bed assignment and medical review at [facility]. Total time taken is greater than 35 minutes. Hospital course This is a 64-year-old male who was recently admitted with intractable nausea and vomiting with significant history of SMA syndrome along with severe dysmotility and continued ongoing failure to thrive. Patient does have a PEG tube placed although unable to tolerate tube feeds and is to drainage. Patient has also received a G-tube during this hospitalization. Patient does have hiatal hernia along with distal esophagitis evaluated by general surgery has undergone a Rickie-en-Y with G-tube and no significant improvements. Patient with severe protein calorie malnutrition and poor oral intake with general surgery following is recommending transfer for tertiary treatment for further GI and/or surgery evaluation for possible surgical intervention. Patient also is maintained on TPN and also antifungals with infectious disease following as patient did have bacteremia with Ines likely secondary to the TPN and previous PICC. Patient is currently awaiting a bed at [facility] and transfer team will be contacting unit once bed is available. Medical record was copied and disc was made with multiple images including all CT and interventions. Currently no reports of chest pain, shortness of breath, or palpitations. Patient is afebrile. No reports of nausea or vomiting and patient is n.p.o. and continued on TPN. Patient will be going to [facility] for tertiary care once a bed is assigned. Overall extremely guarded prognosis 10/24/2024 Patient continues to be monitored closely and did have a mildly elevated white count that was at 22 and is trending down at 18 and patient is afebrile. There was concern of possible purulent drainage and some redness noted at the previous surgical site of the fascial wound dehiscence repair that was done on 10/03/2024. Cultures obtained and pending at this time. Will continue Zosyn with infectious disease following. A few francesco from the incision site were removed per christine zamora. Patient continues to be n.p.o. maintained on TPN along with IV antifungals with PEG tube drainage. Follow-up blood cultures are also negative thus far. We conference was called to Dr. Osorio at [facility] and awaiting a medical review decision if patient will still be accepted. Patient will be awaiting a bed with possible bed placement today dependent on discharges. Surgical service is following and recommends continued transfer for tertiary treatment. Physical exam: Gen: This is a 68-year-old male who is awake, alert and oriented x 2-3, thin built, elderly appearing, cachectic HEENT: Head is atraumatic, normocephalic. Pupils equal, round. Sclerae is anicteric. NECK: Supple. No JVD. No lymphadenopathy. No thyromegaly. LUNGS: Diminished breath sounds bilaterally otherwise clear to auscultation. No wheezes or rhonchi. No intercostal retractions. HEART: S1, S2 are muffled ABDOMEN: Soft. Thin bowel sounds are present. No masses. tenderness noted. PEG tube to drainage, G-tube noted EXTREMITIES: No pedal edema. No calf tenderness. NEUROLOGICAL: Patient is awake, alert and oriented x 2-3. Cranial nerves 2 through 12 are grossly intact. Diffusely weak Please refer to medication reconciliation sheet for a list of medications. The impression and plan of care has been dictated by Yanira Linda, Nurse Practitioner as directed. Dr. Jamir MD I have performed a history and examination and MDM of this patient, discussed the same with the dictator, and agree with the dictator's assessment and plan as written ,documented as a scribe. Based on total visit time, I have performed more than 50% of the visit. Patient Condition at Discharge: Fair Plan - Discharge Summary Discharge Rx Participant: Yes New Discharge Prescriptions: New Heparin Sodium,Porcine (1 ml) [Heparin Sodium] 5,000 unit SQ Q12HR each HYDROcodone/APAP [[place] Elixir 7.5-325Mg/15Ml] 5 ml PO Q6HR PRN ml PRN Reason: Mild To Moderate Pain (1 - 6) cloNIDine 0.3 MG/24HR PATCH [Catapres-TTS] 1 patch TRANSDERM Q7D patch Anidulafungin [Eraxis] 100 mg IVPB DAILY each INSULIN LISPRO (HumaLOG) [HumaLOG] 0 unit SQ Q6HR each Nystatin 100,000 Unit/gm Powd [Mycostatin Powder] 1 applic TOPICAL BID each Continue Pantoprazole [Protonix] 40 mg PO DAILY Metoprolol Tartrate [Lopressor] 25 mg PO BID-W/MEALS Atorvastatin [Lipitor] 40 mg PO DAILY Folic Acid 1 mg PO DAILY Multivitamins, Thera [Multivitamin (formulary)] 1 tab PO DAILY busPIRone HCL [Buspar] 7.5 mg PO BID-W/MEALS Sertraline [Zoloft] 25 mg PO DAILY Nitroglycerin Sl Tabs [Nitrostat] 0.4 mg SUBLINGUAL Q5M PRN PRN Reason: Chest Pain Albuterol Sulfate [Albuterol Sulfate Hfa] 2 puff PO RT-Q4H PRN PRN Reason: Shortness Of Breath Acetaminophen Tab [Tylenol] 650 mg PO Q6H PRN PRN Reason: Mild Pain (Scale 1 To 3) Thiamine [Vitamin B-1] 100 mg PO DAILY Calcium Carbonate [Tums] 1,000 mg PO Q4HR PRN tab PRN Reason: Dyspepsia Discontinued Ferrous Sulfate [Iron (65 MG Elemental)] 325 mg PO DAILY Ondansetron [Zofran] 4 mg PO Q8HR PRN #21 tab PRN Reason: Nausea Discharge Medication List Albuterol Sulfate [Albuterol Sulfate Hfa] 2 puff PO RT-Q4H PRN 07/30/24 [History] Metoprolol Tartrate [Lopressor] 25 mg PO BID-W/MEALS 07/30/24 [History] Nitroglycerin Sl Tabs [Nitrostat] 0.4 mg SUBLINGUAL Q5M PRN 07/30/24 [History] Pantoprazole [Protonix] 40 mg PO DAILY 07/30/24 [History] Sertraline [Zoloft] 25 mg PO DAILY 07/30/24 [History] busPIRone HCL [Buspar] 7.5 mg PO BID-W/MEALS 07/30/24 [History] Acetaminophen Tab [Tylenol] 650 mg PO Q6H PRN 08/28/24 [History] Atorvastatin [Lipitor] 40 mg PO DAILY 08/28/24 [History] Folic Acid 1 mg PO DAILY 08/28/24 [History] Multivitamins, Thera [Multivitamin (formulary)] 1 tab PO DAILY 08/28/24 [History] Thiamine [Vitamin B-1] 100 mg PO DAILY 08/28/24 [History] Calcium Carbonate [Tums] 1,000 mg PO Q4HR PRN tab 09/06/24 [Rx] Anidulafungin [Eraxis] 100 mg IVPB DAILY each 10/19/24 [Rx] HYDROcodone/APAP [[place] Elixir 7.5-325Mg/15Ml] 5 ml PO Q6HR PRN ml 10/19/24 [Rx] Heparin Sodium,Porcine (1 ml) [Heparin Sodium] 5,000 unit SQ Q12HR each 10/19/24 [Rx] INSULIN LISPRO (HumaLOG) [HumaLOG] 0 unit SQ Q6HR each 10/19/24 [Rx] Nystatin 100,000 Unit/gm Powd [Mycostatin Powder] 1 applic TOPICAL BID each 10/19/24 [Rx] cloNIDine 0.3 MG/24HR PATCH [Catapres-TTS] 1 patch TRANSDERM Q7D patch 10/19/24 [Rx] Follow up Appointment(s)/Referral(s): Misael Hopkins MD [Primary Care Provider] - 1-2 days [facility], [REFERRING] - Residential Home,Health [NON-STAFF] - Activity/Diet/Wound Care/Special Instructions: Patient is being transferred to [facility] in [place] once a bed is available. Patient has been accepted by Dr. Orosco medicine with possible GI mario luation and also surgical evaluation with Dr. Hartley Case was discussed briefly with general surgery recommending admission to medicine who has accepted Discharge/Stand Alone Forms: Who Do I Call? Discharge Disposition: OTHER INSTITUTION NOT DEFINED
== END 2024-10-24 19:45 | disposition short-term general hospital (02) | DRG 326 ==
LOC: EC 20:21 → 3SCARD 23:23 → 4SSUR 09-14 15:45 → 3SCARD 09-26 06:23 → 2SICU 10-03 10:32 → 5NMEDONC 10-05 18:02
PROVIDERS: ADMIT Hospitalist; ATTEND Hospitalist
PROC: 0DJ08ZZ Inspection of Upper Intestinal Tract, Via Natural or Artificial Opening Endoscopic (ICD-10-PCS; 2024-09-12)
PROC: 05H933Z Insertion of Infusion Device into Right Brachial Vein, Percutaneous Approach (ICD-10-PCS; 2024-09-12)
PROC: 3E0436Z Introduction of Nutritional Substance into Central Vein, Percutaneous Approach (ICD-10-PCS; 2024-09-15)
PROC: 05HD33Z Insertion of Infusion Device into Right Cephalic Vein, Percutaneous Approach (ICD-10-PCS; 2024-09-16)
PROC: 05HC33Z Insertion of Infusion Device into Left Basilic Vein, Percutaneous Approach (ICD-10-PCS; 2024-09-18)
PROC: 05HC33Z Insertion of Infusion Device into Left Basilic Vein, Percutaneous Approach (ICD-10-PCS; 2024-09-23)
PROC: 3E043XZ Introduction of Vasopressor into Central Vein, Percutaneous Approach (ICD-10-PCS; 2024-09-25)
PROC: 0D160ZA Bypass Stomach to Jejunum, Open Approach (ICD-10-PCS; principal; 2024-09-25 12:35)
PROC: 30233N1 Transfusion of Nonautologous Red Blood Cells into Peripheral Vein, Percutaneous Approach (ICD-10-PCS; 2024-09-26)
PROC: 05HY33Z Insertion of Infusion Device into Upper Vein, Percutaneous Approach (ICD-10-PCS; 2024-09-27)
PROC: 05HA33Z Insertion of Infusion Device into Left Brachial Vein, Percutaneous Approach (ICD-10-PCS; 2024-10-01)
PROC: 0WCG0ZZ Extirpation of Matter from Peritoneal Cavity, Open Approach (ICD-10-PCS; 2024-10-03)
PROC: 0WQF0ZZ Repair Abdominal Wall, Open Approach (ICD-10-PCS; 2024-10-03)
PROC: 30233K1 Transfusion of Nonautologous Frozen Plasma into Peripheral Vein, Percutaneous Approach (ICD-10-PCS; 2024-10-03)
PROC: 05HA33Z Insertion of Infusion Device into Left Brachial Vein, Percutaneous Approach (ICD-10-PCS; 2024-10-11)
PROC: 05H933Z Insertion of Infusion Device into Right Brachial Vein, Percutaneous Approach (ICD-10-PCS; 2024-10-14)
DX: K94.21 Gastrostomy hemorrhage (principal); B37.7 Candidal sepsis; T80.211A Bloodstream infection due to central venous catheter, initial encounter; E43 Unspecified severe protein-calorie malnutrition; I21.A1 Myocardial infarction type 2; J69.0 Pneumonitis due to inhalation of food and vomit; R57.1 Hypovolemic shock; K55.1 Chronic vascular disorders of intestine; F10.21 Alcohol dependence, in remission; M06.9 Rheumatoid arthritis, unspecified; D53.9 Nutritional anemia, unspecified; F32.A Depression, unspecified; I10 Essential (primary) hypertension; I65.29 Occlusion and stenosis of unspecified carotid artery; J45.909 Unspecified asthma, uncomplicated; E87.0 Hyperosmolality and hypernatremia; E87.20 Acidosis, unspecified; D62 Acute posthemorrhagic anemia; E87.1 Hypo-osmolality and hyponatremia; I47.19 Other supraventricular tachycardia; Z68.1 Body mass index [BMI] 19.9 or less, adult; J98.11 Atelectasis; T81.321A Disruption or dehiscence of closure of internal operation (surgical) wound of abdominal wall muscle or fascia, initial encounter; R62.7 Adult failure to thrive; E86.0 Dehydration; E16.2 Hypoglycemia, unspecified; E78.5 Hyperlipidemia, unspecified; E86.9 Volume depletion, unspecified; E87.5 Hyperkalemia; E87.6 Hypokalemia; E87.8 Other disorders of electrolyte and fluid balance, not elsewhere classified; F41.9 Anxiety disorder, unspecified; G43.909 Migraine, unspecified, not intractable, without status migrainosus; G89.29 Other chronic pain; I25.10 Atherosclerotic heart disease of native coronary artery without angina pectoris; K20.90 Esophagitis, unspecified without bleeding; K22.4 Dyskinesia of esophagus; K44.9 Diaphragmatic hernia without obstruction or gangrene; K29.70 Gastritis, unspecified, without bleeding; K40.90 Unilateral inguinal hernia, without obstruction or gangrene, not specified as recurrent; R32 Unspecified urinary incontinence; R11.15 Cyclical vomiting syndrome unrelated to migraine; Z79.899 Other long term (current) drug therapy; Z86.73 Personal history of transient ischemic attack (TIA), and cerebral infarction without residual deficits; Z87.891 Personal history of nicotine dependence; Z71.3 Dietary counseling and surveillance
CPT/HCPCS: 36410; 36415; 36573; 43239; 71045; 71275; 74018; 74019; 74176; 74177; 74240; 74248; 76937; 80048; 80053; 82040; 82272; 82330; 83605; 83690; 83735; 84100; 84132; 84145; 84443; 84478; 84484; 85025; 85027; 85379; 85730; 86140; 86850; 86900; 86901; 86920; 87040; 87070; 87324; 93005; 94640; 94760; 96361; 96374; 96375; 99285

== ENCOUNTER 2024-11-26 15:05 | Emergency (ER) | payer MEDICARE ==
--- NOTE | 2024-11-26 15:37 | ED ---
Nausea/Vomiting/Diarrhea HPI - General Source: patient, family, RN notes reviewed Mode of arrival: wheelchair Limitations: no limitations <Yulissa Cabrera - Last Filed: 11/26/24 15:36> - General Source: patient, family, RN notes reviewed Limitations: no limitations <Darío Henderson - Last Filed: 11/26/24 20:00> - General Stated complaint: Nausea and vomiting Time Seen by Provider: 11/26/24 15:36 - History of Present Illness Initial comments: Quick note: 68-year-old male presented to ER for evaluation nausea and vomiting. reports has been ongoing for the past 2 days. Patient is reporting generalized abdominal pain. Normal bowel movements. No fevers. (Yulissa Cabrera) Patient is a 68-year-old male present to the emergency department with concerns with nausea vomiting. Patient has chronic symptoms, progressive over the years. Symptoms have acted up again the last couple of days. Patient and have a difficult time describing patient's symptoms and past medical history. Patient does have history of previous bowel surgery and he has problems with his esophagus and stomach. No constipation or diarrhea. No fever. Patient states the nausea and vomiting is worse than the pain. Patient states he was sent by his doctor for with concerns for dehydration (Darío Henderson) - Related Data Home Medications Medication Instructions Recorded Confirmed Albuterol Sulfate [Albuterol 2 puff PO RT-Q4H PRN 07/30/24 09/10/24 Sulfate Hfa] Metoprolol Tartrate [Lopressor] 25 mg PO BID-W/MEALS 07/30/24 09/10/24 Nitroglycerin Sl Tabs [Nitrostat] 0.4 mg SUBLINGUAL Q5M PRN 07/30/24 09/10/24 Pantoprazole [Protonix] 40 mg PO DAILY 07/30/24 09/10/24 Sertraline [Zoloft] 25 mg PO DAILY 07/30/24 09/10/24 busPIRone HCL [Buspar] 7.5 mg PO BID-W/MEALS 07/30/24 09/10/24 Acetaminophen Tab [Tylenol] 650 mg PO Q6H PRN 08/28/24 09/10/24 Atorvastatin [Lipitor] 40 mg PO DAILY 08/28/24 09/10/24 Folic Acid 1 mg PO DAILY 08/28/24 09/10/24 Multivitamins, Thera [Multivitamin 1 tab PO DAILY 08/28/24 09/10/24 (formulary)] Thiamine [Vitamin B-1] 100 mg PO DAILY 08/28/24 09/10/24 Previous Rx's Medication Instructions Recorded Calcium Carbonate [Tums] 1,000 mg PO Q4HR PRN tab 09/06/24 Anidulafungin [Eraxis] 100 mg IVPB DAILY each 10/19/24 HYDROcodone/APAP [[place] Elixir 5 ml PO Q6HR PRN ml 10/19/24 7.5-325Mg/15Ml] Heparin Sodium,Porcine (1 ml) 5,000 unit SQ Q12HR each 10/19/24 [Heparin Sodium] INSULIN LISPRO (HumaLOG) [HumaLOG] 0 unit SQ Q6HR each 10/19/24 Nystatin 100,000 Unit/gm Powd 1 applic TOPICAL BID each 10/19/24 [Mycostatin Powder] cloNIDine 0.3 MG/24HR PATCH 1 patch TRANSDERM Q7D patch 10/19/24 [Catapres-TTS] Allergies Allergy/AdvReac Type Severity Reaction Status Date / Time No Known Allergies Allergy Verified 11/26/24 15:40 Review of Systems ROS Other: All systems not noted in ROS Statement are negative. <Yulissa Cabrera - Last Filed: 11/26/24 15:36> ROS Other: All systems not noted in ROS Statement are negative. Constitutional: Denies: fever Eyes: Denies: eye pain ENT: Denies: ear pain Respiratory: Denies: cough, dyspnea Cardiovascular: Denies: chest pain Gastrointestinal: Reports: as per HPI, abdominal pain, nausea, vomiting. Denies: diarrhea, constipation <Darío Henderson - Last Filed: 11/26/24 20:00> ROS Statement: Those systems with pertinent positive or pertinent negative responses have been documented in the HPI. Past Medical History Past Medical History: Asthma, Coronary Artery Disease (CAD), Chest Pain / Angina, CVA/TIA, GERD/Reflux, Hyperlipidemia, Hypertension, Pneumonia, Rheumatoid Arthritis (RA) Additional Past Medical History / Comment(s): MIGRAINES, HEART MURMUR, hx HIATAL HERNIA, ANEMIA, one dr told him he had a stroke at one time-no effects, varicose veins, history of incarcerated per esophageal hernia, status post robotic-assisted paraesophageal hernia repair and Frederick fundoplication on 04/12/2022. History of Any Multi-Drug Resistant Organisms: None Reported Past Surgical History: Cholecystectomy, Heart Catheterization, Hernia Repair, Orthopedic Surgery Additional Past Surgical History / Comment(s): Lt achilles tendon,RT SHOULDER surgery, RT ACHILLES TENDON reattached, HEMORRHOIDECTOMY, 13 FATTY TUMORS removed. left hand index finger surgery after injury, EGD WITH DILATION, paraesophageal hernia repair with Frederick fundoplication on 04/12/2022. New feeding tube September 2024. PEG tube Past Anesthesia/Blood Transfusion Reactions: No Reported Reaction Additional Past Anesthesia/Blood Transfusion Reaction / Comment(s): no hx blood transfusion Past Psychological History: Anxiety, Depression Smoking Status: Former smoker Past Alcohol Use History: None Reported Past Drug Use History: Marijuana - Past Family History Mother Family Medical History: Cancer Father Additional Family Medical History / Comment(s): thinks aneurysm <Yulissa Cabrera - Last Filed: 11/26/24 15:36> General Exam <Yulissa Cabrera - Last Filed: 11/26/24 15:36> Limitations: no limitations General appearance: alert Head exam: Present: normocephalic Eye exam: Present: normal appearance Neck exam: Present: normal inspection Respiratory exam: Present: normal lung sounds bilaterally Cardiovascular Exam: Present: bradycardia GI/Abdominal exam: Present: soft, tenderness (Moderate nonspecific tenderness) Extremities exam: Present: normal inspection Neurological exam: Present: alert Psychiatric exam: Present: normal affect, normal mood Skin exam: Present: normal color <Darío Henderson - Last Filed: 11/26/24 20:00> - General Exam Comments Initial Comments: Visual Physical Exam Vital signs reviewed General: Well-appearing, nontoxic, no acute distress. Head: Normocephalic, atraumatic Eyes: PERRLA, EOMI ENT: Airway patent Chest: Nonlabored breathing Skin: No visual rash, normal skin tone Neuro: Alert and oriented 3 Musculoskeletal: No gross abnormalities (Yulissa Cabrera) Course Vital Signs 11/26/24 11/26/24 15:37 19:05 Temperature 98.1 F Pulse Rate 123 H 80 Respiratory 22 16 Rate Blood Pressure 118/83 135/97 O2 Sat by Pulse 98 100 Oximetry Medical Decision Making <Yulissa Cabrera - Last Filed: 11/26/24 15:36> - Lab Data Result diagrams: 11/26/24 16:53 11/26/24 16:53 <Darío Henderson - Last Filed: 11/26/24 20:00> - Medical Decision Making I performed the quick note portion of this chart. Electronically signed by Yulissa Cabrera PA-C (Yulissa Cabrera) Was pt. sent in by a medical professional or institution ([facility], [employer], urgent care, hospital, or group home...) When possible be specific @ -Patient was sent in by his primary care physician Did you speak to anyone other than the patient for history (EMS, parent, family, police, friend...)? What history was obtained from this source @ - is present helps provide history including past surgical history although does have a difficult time describing this as well Did you review nursing and triage notes (agree or disagree)? Why? @ -I reviewed and agree with nursing and triage notes Were old charts reviewed (outside hosp., previous admission, EMS record, old EKG, old radiological studies, urgent care reports/EKG's, group home records)? Report findings @ -No old charts were reviewed Differential Diagnosis (chest pain, altered mental status, abdominal pain women, abdominal pain men, vaginal bleeding, weakness, fever, dyspnea, syncope, headache, dizziness, GI bleed, back pain, seizure, CVA, palpatations, mental health, musculoskeletal)? @ -Differential Abdominal Pain Men: Appendicitis, cholecystitis, diverticulosis, ischemic bowel, pancreatitis, hepatitis, UTI, gastroenteritis, AAA, incarcerated hernia, bowel obstruction, constipation, inflammatory bowel, hepatitis, peptic ulcer disease, splenic inf arction, perforated viscus, testicular torsion, this is not meant to be an all- inclusive list EKG interpreted by me (3pts min.). @ -As above X-rays interpreted by me (1pt min.). @ -None done CT interpreted by me (1pt min.). @ -CT scan abdomen pelvis shows postoperative changes. No acute abnormality U/S interpreted by me (1pt. min.). @ -None done What testing was considered but not performed or refused? (CT, X-rays, U/S, labs)? Why? @ -None What meds were considered but not given or refused? Why? @ -None Did you discuss the management of the patient with other professionals (professionals i.e. DrBrown, PA, DISK REC[employer]ATER, lab, RT, psych nurse, social media community manager, smasher, teacher, public affairs officer, director of casework department)? Give summary @ -No Was smoking cessation discussed for >3mins.? @ -No Was critical care preformed (if so, how long)? @ -No Were there social determinants of health that impacted care today? How? (Homelessness, low income, unemployed, alcoholism, drug addiction, transportation, low edu. Level, literacy, decrease access to med. care, alf, rehab)? @ -No Was there de-escalation of care discussed even if they declined (Discuss DNR or withdrawal of care, Hospice)? DNR status @ -No What co-morbidities impacted this encounter? (DM, HTN, Smoking, COPD, CAD, Cancer, CVA, ARF, Chemo, Hep., AIDS, mental health diagnosis, sleep apnea, morbid obesity)? @ -None Was patient admitted / discharged? Hospital course, mention meds given and route, prescriptions, significant lab abnormalities, going to OR and other pertinent info. @ -Patient reevaluated and states he is feeling much better. Patient is updated on results. Patient discussion and he states he would like to go home. Patient updated on need for follow-up with his doctors. Undiagnosed new problem with uncertain prognosis? @ -No Drug Therapy requiring intensive monitoring for toxicity (Heparin, Nitro, Insulin, Cardizem)? @ -No Were any procedures done? @ -No Diagnosis/symptom? @ -Vomiting Acute, or Chronic, or Acute on Chronic? @ -Acute Uncomplicated (without systemic symptoms) or Complicated (systemic symptoms)? @ -Complicated with chronic abdominal pain Side effects of treatment? @ -No Exacerbation, Progression, or Severe Exacerbation? @ -No Poses a threat to life or bodily function? How? (Chest pain, [place], [place], pneumonia, PE, COPD, DKA, ARF, appy, cholecystitis, CVA, Diverticulitis, Homicidal, Suicidal, threat to staff... and all critical care pts) @ -No (Darío Henderson) - Lab Data Lab Results 11/26/24 11/26/24 11/26/24 Range/Units 16:53 16:53 16:53 WBC 15.11 H (4.50-10.00) 10*3/uL RBC 3.83 L (4.40-5.60) 10*6/uL Hgb 11.2 L (13.0-17.0) g/dL Hct 36.0 L (39.6-50.0) % MCV 94.0 (80.0-97.0) fL MCH 29.2 (27.0-32.0) pg MCHC 31.1 L (32.0-37.0) g/dL Plt Count 432 (140-440) 10*3/uL MPV 10.5 (9.5-12.2) fL Immature Gran % (Auto) 1.0 % Neutrophils % 83.2 % Lymphocytes % 9.1 % Monocytes % 5.3 % Eosinophils % 0.7 % Basophils % 0.7 % Immature Gran # 0.15 H (0.00-0.04) 10*3/uL Neutrophils # 12.56 H (1.80-7.70) 10*3/uL Lymphocytes # 1.38 (0.90-5.00) 10*3/uL Monocytes # 0.80 (0.20-1.00) 10*3/uL Eosinophils # 0.11 (0.04-0.35) 10*3/uL Basophils # 0.11 H (0.00-0.10) 10*3/uL Sodium 141 (137-145) mmol/L Potassium 4.7 (3.5-5.1) mmol/L Chloride 102 (98-107) mmol/L Carbon Dioxide 31 H (22-30) mmol/L Anion Gap 8 mmol/L BUN 16 (9-20) mg/dL Creatinine 0.67 (0.66-1.25) mg/dL Est GFR (CKD-EPI)AfAm >90 (>60 ml/min/1.73 sqM) Est GFR (CKD-EPI)NonAf >90 (>60 ml/min/1.73 sqM) Glucose 125 H (74-99) mg/dL Plasma Lactic Acid Jack 1.8 (0.7-2.0) mmol/L Calcium 11.1 H (8.4-10.2) mg/dL Total Bilirubin 0.5 (0.2-1.3) mg/dL AST 27 (17-59) U/L ALT 18 (4-49) U/L Alkaline Phosphatase 152 H (38-126) U/L Total Protein 7.0 (6.3-8.2) g/dL Albumin 3.7 (3.5-5.0) g/dL Urine Color Urine Appearance (Clear) Urine pH (5.0-8.0) Ur Specific [place] (1.001-1.035) Urine Protein (Negative) Urine Glucose (UA) (Negative) Urine Ketones (Negative) Urine Blood (Negative) Urine Nitrite (Negative) Urine Bilirubin (Negative) Urine Urobilinogen (<2.0) mg/dL Ur Leukocyte Esterase (Negative) 11/26/24 Range/Units 16:56 WBC (4.50-10.00) 10*3/uL RBC (4.40-5.60) 10*6/uL Hgb (13.0-17.0) g/dL Hct (39.6-50.0) % MCV (80.0-97.0) fL MCH (27.0-32.0) pg MCHC (32.0-37.0) g/dL Plt Count (140-440) 10*3/uL MPV (9.5-12.2) fL Immature Gran % (Auto) % Neutrophils % % Lymphocytes % % Monocytes % % Eosinophils % % Basophils % % Immature Gran # (0.00-0.04) 10*3/uL Neutrophils # (1.80-7.70) 10*3/uL Lymphocytes # (0.90-5.00) 10*3/uL Monocytes # (0.20-1.00) 10*3/uL Eosinophils # (0.04-0.35) 10*3/uL Basophils # (0.00-0.10) 10*3/uL Sodium (137-145) mmol/L Potassium (3.5-5.1) mmol/L Chloride (98-107) mmol/L Carbon Dioxide (22-30) mmol/L Anion Gap mmol/L BUN (9-20) mg/dL Creatinine (0.66-1.25) mg/dL Est GFR (CKD-EPI)AfAm (>60 ml/min/1.73 sqM) Est GFR (CKD-EPI)NonAf (>60 ml/min/1.73 sqM) Glucose (74-99) mg/dL Plasma Lactic Acid Jack (0.7-2.0) mmol/L Calcium (8.4-10.2) mg/dL Total Bilirubin (0.2-1.3) mg/dL AST (17-59) U/L ALT (4-49) U/L Alkaline Phosphatase (38-126) U/L Total Protein (6.3-8.2) g/dL Albumin (3.5-5.0) g/dL Urine Color Light Yellow Urine Appearance Clear (Clear) Urine pH 8.0 (5.0-8.0) Ur Specific [place] 1.011 (1.001-1.035) Urine Protein Negative (Negative) Urine Glucose (UA) Negative (Negative) Urine Ketones Negative (Negative) Urine Blood Negative (Negative) Urine Nitrite Negative (Negative) Urine Bilirubin Negative (Negative) Urine Urobilinogen <2.0 (<2.0) mg/dL Ur Leukocyte Esterase Negative (Negative) Disposition <Yulissa Cabrera - Last Filed: 11/26/24 15:36> Is patient prescribed a controlled substance at d/c from ED?: No Time of Disposition: 20:00 <Darío Henderson - Last Filed: 11/26/24 20:00> Clinical Impression: Abdominal pain, Nausea & vomiting Disposition: HOME SELF-CARE Condition: Stable Instructions (If sedation given, give patient instructions): Acute Nausea and Vomiting (ED) Additional Instructions: Please do follow-up with your primary care physician in the next day or 2 for recheck. Please also follow-up with your surgeon in the next couple of days. Return for not tolerating fluids, fever, increased pain, change or worsening symptoms or any other concerns. Referrals: Misael Hopkins MD [Primary Care Provider] - 1-2 days
[2024-11-26 15:40] VITALS: TEMP 98.1
[2024-11-26 17:04] LABS: Basophils # (A) 0.11 10*3/uL (0.00-0.10); Basophils % (A) 0.7 %; Eosinophils # (A) 0.11 10*3/uL (0.04-0.35); Eosinophils % (A) 0.7 %; HGB 11.2 g/dL (13.0-17.0); Lymphocytes # (A) 1.38 10*3/uL (0.90-5.00); Lymphocytes % (A) 9.1 %; MCH 29.2 pg (27.0-32.0); MCHC 31.1 g/dL (32.0-37.0); Mean Platelet Volume 10.5 fL (9.5-12.2); Monocytes % (A) 5.3 %; Neutrophils # (A) 12.56 10*3/uL (1.80-7.70); Neutrophils % (A) 83.2 %; Platelet Count 432 10*3/uL (140-440); RBC 3.83 10*6/uL (4.40-5.60); RDW 16.4 % (11.5-14.5); WBC 15.11 10*3/uL (4.50-10.00)
[2024-11-26 17:11] LABS: Appearance,Urine Clear (Clear); Bilirubin,Urine Negative (Negative); Blood,Urine Negative (Negative); Color,Urine Light Yellow; Glucose,Urine (UA) Negative (Negative); Ketones,Urine Negative (Negative); Leukocyte Esterase,Urine Negative (Negative); Nitrite,Urine Negative (Negative); Protein,Urine Negative (Negative); Specific Gravity,Urine 1.011 (1.001-1.035); Urobilinogen,Urine <2.0 mg/dL (<2.0)
[2024-11-26 17:22] LABS: ALT 18 U/L (4-49); African American GFR (CKD) >90 (>60 ml/min/1.73 sqM); Albumin 3.7 g/dL (3.5-5.0); Anion Gap 8 mmol/L; Blood Urea Nitrogen 16 mg/dL (9-20); Calcium 11.1 mg/dL (8.4-10.2); Carbon Dioxide 31 mmol/L (22-30); Chloride 102 mmol/L (98-107); Glucose 125 mg/dL (74-99); Non-African American GFR(CKD) >90 (>60 ml/min/1.73 sqM); Sodium 141 mmol/L (137-145); Total Bilirubin 0.5 mg/dL (0.2-1.3)
[2024-11-26 17:26] LABS: AST 27 U/L (17-59); Alkaline Phosphatase 152 U/L (38-126); Potassium 4.7 mmol/L (3.5-5.1)
[2024-11-26] MEDS: SODIUM CHLORIDE 0.9% 1,000 ML IV STA (19:02)
[2024-11-26] MEDS: ONDANSETRON 4 MG/2 ML VIAL IVP STA (19:03)
[2024-11-26] MEDS: FAMOTIDINE 20 MG/2 ML VIAL IV STA (19:03)
--- NOTE | 2024-11-26 19:47 | CT ---
EXAMINATION TYPE: CT abdomen pelvis w con DATE OF EXAM: 11/26/2024 7:39 PM COMPARISON: Multiple prior CT studies, most recently dated 10/11/2024. CLINICAL INDICATION: Male, 68 years old with history of abp; abdominal pain TECHNIQUE: Axial CT abdomen pelvis w con;Sagittal and coronal reformats were created on a separate w orkstation. Contrast used:20ml mL of Isovue 300 with IV Contrast, (none if empty) Oral contrast used: without Oral Contrast (none if empty) CT DLP: 376.7 mGycm, Automated exposure control for dose reduction was used. FINDINGS: LOWER CHEST: Unremarkable ABDOMEN LIVER: Unremarkable GALLBLADDER AND BILE DUCTS: The gallbladder is surgically absent. PANCREAS: Unremarkable. SPLEEN: Unremarkable. ADRENAL GLANDS: Unremarkable. KIDNEYS AND URETERS: No evidence of hydronephrosis or renal calculus. The ureters are unremarkable. Subcentimeter hyperdense lesion in the right kidney too small accurately characterize. PELVIS BLADDER: Mildly trabeculated appearance and left-sided bladder diverticulum measuring 3 cm with a 5 m m neck. REPRODUCTIVE: Mild median lobe hypertrophy of the prostate gland with associated mass effect on urina ry bladder. ABDOMEN & PELVIS STOMACH AND BOWEL: Percutaneous gastrojejunostomy tube with distal tip terminating within left abdomi nal small bowel loop. Postoperative changes near the GE junction. Additionally, postsurgical anastomo tic small bowel changes noted in the left hemiabdomen. Appendix is within normal limits. Moderate col onic stool burden. Mild tethering of small and large bowel loops adjacent to the laparotomy scar defe ct in the anterior abdominal wall. PERITONEUM/RETROPERITONEUM: No evidence of pneumoperitoneum or free fluid. VASCULATURE: No evidence of aortic aneurysm. MUSCULOSKELETAL: No acute osseous abnormalities LYMPH NODES: No gross evidence for lymphadenopathy. SOFT TISSUE/ABDOMINAL WALL: Midline laparotomy scar defect. IMPRESSION: 1. No acute abnormality in the abdomen/pelvis. 2. Mildly trabeculated appearance of the urinary bladder with left-sided bladder diverticulum. Recom mend clinical correlation for bladder outlet obstruction. 3. Additional nonacute findings as above. [facility], Workstation: [id number], 11/26/2024 7:45 PM
[2024-11-26 20:10] VITALS: BP 135/87; PULSE 64; RESP 18
== END 2024-11-26 20:20 | disposition home or self-care (01) ==
LOC: EC 15:05
DX: R11.2 Nausea with vomiting, unspecified (principal); R10.9 Unspecified abdominal pain; Z90.49 Acquired absence of other specified parts of digestive tract; Z87.891 Personal history of nicotine dependence
CPT/HCPCS: 36415; 93005; 80053; 83605; 85025; 81003; 74177; 99284; 96374; 96375; 96361; J2405; Q9967; J1308

== ENCOUNTER 2024-12-27 17:29 | Inpatient (IN) | payer MEDICARE ==
--- NOTE | 2024-12-27 18:38 | ED ---
General Adult HPI - General Chief complaint: Nausea/Vomiting/Diarrhea Stated complaint: Vomiting Time Seen by Provider: 12/27/24 18:10 Source: patient, RN notes reviewed, old records reviewed Mode of arrival: ambulatory Limitations: no limitations - History of Present Illness Initial comments: 69-year-old male presenting with chief complaint of vomiting. Patient has history of chronic nausea and vomiting and his states he has been vomiting this time for approximately 1 week. He reports mild abdominal discomfort. He states his last bowel movement was 3 days ago. Patient has complicated abdominal surgical history. indicates that he did recently have a PEG tube placed but they have not used it yet. Patient had laparotomy performed several months ago for Rickie-en-Y bypass. Patient's is not clear on exact surgical history or reason for this procedure. No fever. - Related Data Home Medications Medication Instructions Recorded Confirmed Albuterol Sulfate [Albuterol 2 puff INHALATION RT-Q4H PRN 07/30/24 12/27/24 Sulfate Hfa] Metoprolol Tartrate [Lopressor] 25 mg PO BID-W/MEALS 07/30/24 12/27/24 Nitroglycerin Sl Tabs [Nitrostat] 0.4 mg SL Q5M PRN 07/30/24 12/27/24 Pantoprazole [Protonix] 40 mg PO DAILY 07/30/24 12/27/24 Sertraline [Zoloft] 25 mg PO DAILY 07/30/24 12/27/24 busPIRone HCL [Buspar] 7.5 mg PO BID-W/MEALS 07/30/24 12/27/24 Acetaminophen Tab [Tylenol] 650 mg PO Q6H PRN 08/28/24 12/27/24 Atorvastatin [Lipitor] 40 mg PO DAILY 08/28/24 12/27/24 Thiamine [Vitamin B-1] 100 mg PO DAILY 08/28/24 12/27/24 Metoclopramide HCl [Reglan] 5 mg PO BID PRN 12/27/24 12/27/24 Previous Rx's Medication Instructions Recorded Calcium Carbonate [Tums] 1,000 mg PO Q4HR PRN tab 09/06/24 Allergies Allergy/AdvReac Type Severity Reaction Status Date / Time No Known Allergies Allergy Verified 12/27/24 18:01 Review of Systems ROS Statement: Those systems with pertinent positive or pertinent negative responses have been documented in the HPI. ROS Other: All systems not noted in ROS Statement are negative. Past Medical History Past Medical History: Asthma, Coronary Artery Disease (CAD), Chest Pain / Angina, CVA/TIA, GERD/Reflux, Hyperlipidemia, Hypertension, Pneumonia, Rheumatoid Arthritis (RA) Additional Past Medical History / Comment(s): MIGRAINES, HEART MURMUR, hx HIATAL HERNIA, ANEMIA, one dr told him he had a stroke at one time-no effects, varicose veins, history of incarcerated per esophageal hernia, status post robotic-assisted paraesophageal hernia repair and Frederick fundoplication on 04/12/2022. History of Any Multi-Drug Resistant Organisms: None Reported Past Surgical History: Cholecystectomy, Heart Catheterization, Hernia Repair, Orthopedic Surgery Additional Past Surgical History / Comment(s): Lt achilles tendon,RT SHOULDER surgery, RT ACHILLES TENDON reattached, HEMORRHOIDECTOMY, 13 FATTY TUMORS removed. left hand index finger surgery after injury, EGD WITH DILATION, paraesophageal hernia repair with Frederick fundoplication on 04/12/2022. New feeding tube September 2024. PEG tube Past Anesthesia/Blood Transfusion Reactions: No Reported Reaction Additional Past Anesthesia/Blood Transfusion Reaction / Comment(s): no hx blood transfusion Past Psychological History: Anxiety, Depression Smoking Status: Former smoker Past Alcohol Use History: None Reported Past Drug Use History: Marijuana - Past Family History Mother Family Medical History: Cancer Father Additional Family Medical History / Comment(s): thinks aneurysm General Exam Limitations: no limitations General appearance: alert, in distress Head exam: Present: atraumatic, normocephalic Eye exam: Present: normal appearance, PERRL ENT exam: Present: mucous membranes dry Neck exam: Present: normal inspection. Absent: tenderness, meningismus Respiratory exam: Present: normal lung sounds bilaterally. Absent: respiratory distress, wheezes Cardiovascular Exam: Present: normal rhythm, tachycardia GI/Abdominal exam: Present: soft, distended, tenderness Extremities exam: Present: normal inspection, normal capillary refill Neurological exam: Present: alert, oriented X3, CN II-XII intact. Absent: motor sensory deficit Skin exam: Present: warm, dry, intact Course Vital Signs 12/27/24 12/27/24 12/27/24 17:56 19:01 20:55 Temperature 98.1 F Pulse Rate 112 H 96 89 Respiratory 22 22 16 Rate Blood Pressure 150/98 146/104 149/94 O2 Sat by Pulse 97 100 99 Oximetry Medical Decision Making - Medical Decision Making Was pt. sent in by a medical professional or institution (LIANA Sylvester, MANAGER FINANCE, urgent care, hospital, or residential...) When possible be specific @ -No Did you speak to anyone other than the patient for history (EMS, parent, family, police, friend...)? What history was obtained from this source @Yes, patient's Did you review nursing and triage notes (agree or disagree)? Why? @ -I reviewed and agree with nursing and triage notes Were old charts reviewed (outside hosp., previous admission, EMS record, old EKG, old radiological studies, urgent care reports/EKG's, residential records)? Report findings @ -No old charts were reviewed Differential Abdominal Pain Men: Appendicitis, cholecystitis, diverticulosis, ischemic bowel, pancreatitis, hepatitis, UTI, gastroenteritis, AAA, incarcerated hernia, bowel obstruction, constipation, inflammatory bowel, hepatitis, peptic ulcer disease, splenic infarction, perforated viscus, testicular torsion, this is not meant to be an all-inclusive list EKG interpreted by me (3pts min.). @ -As above X-rays interpreted by me (1pt min.). @ -None done CT interpreted by me (1pt min.). @ -[CT of the abdomen pelvis is negative for acute findings U/S interpreted by me (1pt. min.). @ -None done What testing was considered but not performed or refused? (CT, X-rays, U/S, labs)? Why? @ -None What meds were considered but not given or refused? Why? @ -None Did you discuss the management of the patient with other professionals (professionals i.e. LIANA Sylvester, MANAGER FINANCE, lab, RT, psych nurse, geriatric social work professor, paper cap machine operator, teacher, air intelligence officer, case filler)? Give summary @ -EMH, will admit Was smoking cessation discussed for >3mins.? @ -No Was critical care preformed (if so, how long)? @ -No Were there social determinants of health that impacted care today? How? (Ho melessness, low income, unemployed, alcoholism, drug addiction, transportation, low edu. Level, literacy, decrease access to med. care, snf, rehab)? @ -No Was there de-escalation of care discussed even if they declined (Discuss DNR or withdrawal of care, Hospice)? DNR status @ -No What co-morbidities impacted this encounter? (DM, HTN, Smoking, COPD, CAD, Cancer, CVA, ARF, Chemo, Hep., AIDS, mental health diagnosis, sleep apnea, morbid obesity)? @ -Multiple abdominal surgeries including Rickie-en-Y Was patient admitted / discharged? Hospital course, mention meds given and route, prescriptions, significant lab abnormalities, going to OR and other pertinent info. @ -69-year-old male with a 1 week history of nausea and vomiting which is acute on chronic. Patient has had PEG tube placed but is not currently using this. He is vomiting during the assessment and continues to vomit while in the emergency department. He has a normal CBC without leukocytosis, stable hemoglobin, CT is negative for obstruction, no acute findings. Patient has a sodium meal of 150 I suspect this is from dehydration and volume loss. Patient continued on IV fluids and antiemetics as well as pain medication. He is admitted for symptomatic treatment and treatment of hyponatremia. Case discussed with Fer diaz for [facility]. Undiagnosed new problem with uncertain prognosis? @ -No Drug Therapy requiring intensive monitoring for toxicity (Heparin, Nitro, Insulin, Cardizem)? @ -No Were any procedures done? @ -No Diagnosis/symptom? @ -Intractable nausea vomiting, hyponatremia Acute, or Chronic, or Acute on Chronic? @ -Acute Uncomplicated (without systemic symptoms) or Complicated (systemic symptoms)? @ -Default Side effects of treatment? @ -No Exacerbation, Progression, or Severe Exacerbation? @ -No Poses a threat to life or bodily function? How? (Chest pain, USA, HI, pneumonia, PE, COPD, DKA, ARF, appy, cholecystitis, CVA, Diverticulitis, Homicidal, Suicidal, threat to staff... and all critical care pts) @ -Yes, electrolyte abnormality, volume depletion - Lab Data Result diagrams: 12/27/24 19:00 12/27/24 19:00 Lab Results 12/27/24 12/27/24 12/27/24 Range/Units 19:00 19: 19:00 WBC 9.46 (4.50-10.00) 10*3/uL RBC 4.47 (4.40-5.60) 10*6/uL Hgb 13.6 (13.0-17.0) g/dL Hct 41.4 (39.6-50.0) % MCV 92.6 (80.0-97.0) fL MCH 30.4 (27.0-32.0) pg MCHC 32.9 (32.0-37.0) g/dL Plt Count 429 (140-440) 10*3/uL MPV 10.9 (9.5-12.2) fL Immature Gran % (Auto) 0.4 % Neutrophils % 79.1 % Lymphocytes % 13.3 % Monocytes % 6.4 % Eosinophils % 0.3 % Basophils % 0.5 % Immature Gran # 0.04 (0.00-0.04) 10*3/uL Neutrophils # 7.47 (1.80-7.70) 10*3/uL Lymphocytes # 1.26 (0.90-5.00) 10*3/uL Monocytes # 0.61 (0.20-1.00) 10*3/uL Eosinophils # 0.03 L (0.04-0.35) 10*3/uL Basophils # 0.05 (0.00-0.10) 10*3/uL PT 10.9 (10.0-12.5) sec INR 1.0 (<1.2) APTT 21.8 L (22.0-30.0) sec Sodium 150 H (137-145) mmol/L Potassium 4.3 (3.5-5.1) mmol/L Chloride 110 H (98-107) mmol/L Carbon Dioxide 23 (22-30) mmol/L Anion Gap 17 mmol/L BUN 28 H (9-20) mg/dL Creatinine 0.86 (0.66-1.25) mg/dL Est GFR (CKD-EPI)AfAm >90 (>60 ml/min/1.73 sqM) Est GFR (CKD-EPI)NonAf 89 (>60 ml/min/1.73 sqM) Glucose 132 H (74-99) mg/dL Plasma Lactic Acid Jack (0.7-2.0) mmol/L Calcium 9.6 (8.4-10.2) mg/dL Total Bilirubin 0.9 (0.2-1.3) mg/dL AST 32 (17-59) U/L ALT 28 (4-49) U/L Alkaline Phosphatase 124 (38-126) U/L Total Protein 7.7 (6.3-8.2) g/dL Albumin 4.6 (3.5-5.0) g/dL Amylase 78 (30-110) U/L Lipase 19 L (23-300) U/L //25 Range/Units 19:00 WBC (4.50-10.00) 10*3/uL RBC (4.40-5.60) 10*6/uL Hgb (13.0-17.0) g/dL Hct (39.6-50.0) % MCV (80.0-97.0) fL MCH (27.0-32.0) pg MCHC (32.0-37.0) g/dL Plt Count (140-440) 10*3/uL MPV (9.5-12.2) fL Immature Gran % (Auto) % Neutrophils % % Lymphocytes % % Monocytes % % Eosinophils % % Basophils % % Immature Gran # (0.00-0.04) 10*3/uL Neutrophils # (1.80-7.70) 10*3/uL Lymphocytes # (0.90-5.00) 10*3/uL Monocytes # (0.20-1.00) 10*3/uL Eosinophils # (0.04-0.35) 10*3/uL Basophils # (0.00-0.10) 10*3/uL PT (10.0-12.5) sec INR (<1.2) APTT (22.0-30.0) sec Sodium (137-145) mmol/L Potassium (3.5-5.1) mmol/L Chloride (98-107) mmol/L Carbon Dioxide (22-30) mmol/L Anion Gap mmol/L BUN (9-20) mg/dL Creatinine (0.66-1.25) mg/dL Est GFR (CKD-EPI)AfAm (>60 ml/min/1.73 sqM) Est GFR (CKD-EPI)NonAf (>60 ml/min/1.73 sqM) Glucose (74-99) mg/dL Plasma Lactic Acid Jack 2.6 H* (0.7-2.0) mmol/L Calcium (8.4-10.2) mg/dL Total Bilirubin (0.2-1.3) mg/dL AST (17-59) U/L ALT (4-49) U/L Alkaline Phosphatase (38-126) U/L Total Protein (6.3-8.2) g/dL Albumin (3.5-5.0) g/dL Amylase (30-110) U/L Lipase (23-300) U/L Disposition Clinical Impression: Dehydration, Intractable vomiting, Hypernatremia Disposition: ADMITTED IP TO THIS HOSP Condition: Stable Is patient prescribed a controlled substance at d/c from ED?: No Referrals: Misael Hopkins MD [Primary Care Provider] - 1-2 days Time of Disposition: 21:01
[2024-12-27] MEDS: HYDROmorphone 0.5 MG/0.5 ML SYRINGE IVP STA ×2 (18:57→20:20)
[2024-12-27] MEDS: ONDANSETRON 4 MG/2 ML VIAL IVP STA (18:57)
[2024-12-27] MEDS: LACTATED RINGERS 1,000 ML IV ONE (18:59)
--- NOTE | 2024-12-27 19:04 | CT ---
EXAMINATION TYPE: CT abdomen pelvis wo con DATE OF EXAM: 12/27/2024 6:53 PM COMPARISON: 11/26/2024 CLINICAL INDICATION: Male, 69 years old with history of Nausea vomiting/ab pain, TECHNIQUE: Axial images with sagittal coronal reformats. Examination of the solid and hollow viscera is limited given the lack of contrast. CT DLP: mGycm, Automated exposure control for dose reduction was used. FINDINGS: LUNG BASES: No evidence for nodule. No evidence for infiltrate. LIVER/GB: The gallbladder is unremarkable. No space-occupying hepatic lesion. PANCREAS: No pancreatic mass identified. No inflammatory process seen. SPLEEN: No evidence for splenomegaly. No intrasplenic lesions seen. ADRENALS: No adrenal nodules identified. No evidence for thickening. KIDNEYS: No evidence for renal mass. No nephrolithiasis. No hydronephrosis. Urinary bladder diverticu lum to the left of midline. No bladder wall thickening this time. BOWEL: Appendix has a normal appearance. No evidence of bowel obstruction. No inflammatory process. Lymph nodes: No evidence for adenopathy greater than 1 cm. Abdominal aorta: Atheromatous changes seen. No evidence for aneurysm. Genital organs: No significant abnormality. Other: Gastrostomy tube is noted to be in place with distal tip extending into the jejunum. IMPRESSION: 1. Urinary bladder diverticulum to the left of midline. No bladder wall thickening this time. [facility], , 12/27/2024 7:02 PM
[2024-12-27 19:10] LABS: Basophils # (A) 0.05 10*3/uL (0.00-0.10); Basophils % (A) 0.5 %; Eosinophils # (A) 0.03 10*3/uL (0.04-0.35); Eosinophils % (A) 0.3 %; HCT 41.4 % (39.6-50.0); HGB 13.6 g/dL (13.0-17.0); Lymphocytes # (A) 1.26 10*3/uL (0.90-5.00); Lymphocytes % (A) 13.3 %; MCH 30.4 pg (27.0-32.0); MCHC 32.9 g/dL (32.0-37.0); MCV 92.6 fL (80.0-97.0); Monocytes # (A) 0.61 10*3/uL (0.20-1.00); Monocytes % (A) 6.4 %; Neutrophils # (A) 7.47 10*3/uL (1.80-7.70); Neutrophils % (A) 79.1 %; Platelet Count 429 10*3/uL (140-440); RBC 4.47 10*6/uL (4.40-5.60); RDW 16.5 % (11.5-14.5); WBC 9.46 10*3/uL (4.50-10.00)
[2024-12-27 19:24] LABS: ALT 28 U/L (4-49); African American GFR (CKD) >90 (>60 ml/min/1.73 sqM); Albumin 4.6 g/dL (3.5-5.0); Amylase 78 U/L (30-110); Anion Gap 17 mmol/L; Blood Urea Nitrogen 28 mg/dL (9-20); Calcium 9.6 mg/dL (8.4-10.2); Carbon Dioxide 23 mmol/L (22-30); Chloride 110 mmol/L (98-107); Glucose 132 mg/dL (74-99); Lipase 19 U/L (23-300); Non-African American GFR(CKD) 89 (>60 ml/min/1.73 sqM); Sodium 150 mmol/L (137-145); Total Protein 7.7 g/dL (6.3-8.2)
[2024-12-27 19:27] LABS: AST 32 U/L (17-59); Alkaline Phosphatase 124 U/L (38-126); Potassium 4.3 mmol/L (3.5-5.1)
[2024-12-27 19:37] LABS: INR 1.0 (<1.2); Prothrombin Time 10.9 sec (10.0-12.5)
[2024-12-27 19:40] LABS: Partial Thromboplastin Time 21.8 sec (22.0-30.0)
[2024-12-27] MEDS: METOCLOPRAMIDE 5 MG/ML 2 ML VIAL IVP STA (20:15)
[2024-12-27] MEDS: LORazepam 1 MG/0.5 ML VIAL IV STA (20:16)
[2024-12-27] MEDS ORDERED: NALOXONE 0.4 MG/ML 1 ML VIAL IV PRN (20:55)
[2024-12-27] MEDS ORDERED: ACETAMINOPHEN TAB 325 MG TAB PO PRN (20:55)
[2024-12-27] MEDS: SODIUM CHLORIDE 0.9% 1,000 ML IV SCH (21:47)
[2024-12-28] MEDS: ONDANSETRON 4 MG/2 ML VIAL IVP PRN (00:04)
[2024-12-28] MEDS: HYDROmorphone 0.5 MG/0.5 ML SYRINGE IVP PRN (00:45)
[2024-12-28 00:59] LABS: Bilirubin,Urine Negative (Negative); Blood,Urine Small (Negative); Color,Urine Yellow; Glucose,Urine (UA) Negative (Negative); Hyaline Casts,Urine 24 /lpf (0-2); Ketones,Urine Negative (Negative); Leukocyte Esterase,Urine Negative (Negative); Mucus,Urine Many /hpf; Nitrite,Urine Negative (Negative); PH, Urine 5.5 (5.0-8.0); Protein,Urine Trace (Negative); RBC,Urine 4 /hpf (0-5); Specific Gravity,Urine 1.022 (1.001-1.035); Squamous Epithelial Cell,Urine 1 /hpf (0-4); Urobilinogen,Urine <2.0 mg/dL (<2.0); WBC,Urine 3 /hpf (0-5)
[2024-12-28 06:09] LABS: Basophils # (A) 0.06 10*3/uL (0.00-0.10); Basophils % (A) 0.4 %; Eosinophils # (A) 0.04 10*3/uL (0.04-0.35); Eosinophils % (A) 0.3 %; HCT 37.9 % (39.6-50.0); HGB 12.1 g/dL (13.0-17.0); Lymphocytes # (A) 1.09 10*3/uL (0.90-5.00); Lymphocytes % (A) 7.0 %; MCH 30.2 pg (27.0-32.0); MCHC 31.9 g/dL (32.0-37.0); MCV 94.5 fL (80.0-97.0); Monocytes # (A) 1.09 10*3/uL (0.20-1.00); Monocytes % (A) 7.0 %; Neutrophils # (A) 13.20 10*3/uL (1.80-7.70); Neutrophils % (A) 85.0 %; Platelet Count 390 10*3/uL (140-440); RBC 4.01 10*6/uL (4.40-5.60); RDW 16.5 % (11.5-14.5); WBC 15.52 10*3/uL (4.50-10.00)
--- NOTE | 2024-12-28 11:43 | P.GSCN ---
History of Present Illness Consult date: 12/28/24 Reason for Consult: Chronic nausea, vomiting History of present illness: This is a 69-year-old male who has chronic history of nausea and vomiting. Patient has had extensive workup over the last 1 year. Patient presents with similar symptoms. Past Medical History Past Medical History: Asthma, Coronary Artery Disease (CAD), Chest Pain / Angina, CVA/TIA, GERD/Reflux, Hyperlipidemia, Hypertension, Pneumonia, Rheumatoid Arthritis (RA) Additional Past Medical History / Comment(s): MIGRAINES, HEART MURMUR, hx HIATAL HERNIA, ANEMIA, one dr told him he had a stroke at one time-no effects, varicose veins, history of incarcerated per esophageal hernia, status post robotic-assisted paraesophageal hernia repair and Frederick fundoplication on 04/12/2022. History of Any Multi-Drug Resistant Organisms: None Reported Past Surgical History: Cholecystectomy, Heart Catheterization, Hernia Repair, Orthopedic Surgery Additional Past Surgical History / Comment(s): Lt achilles tendon,RT SHOULDER surgery, RT ACHILLES TENDON reattached, HEMORRHOIDECTOMY, 13 FATTY TUMORS removed. left hand index finger surgery after injury, EGD WITH DILATION, paraesophageal hernia repair with Frederick fundoplication on 04/12/2022. New feeding tube September 2024. PEG tube Past Anesthesia/Blood Transfusion Reactions: No Reported Reaction Additional Past Anesthesia/Blood Transfusion Reaction / Comm: no hx blood transfusion Past Psychological History: Anxiety, Depression Smoking Status: Former smoker Past Alcohol Use History: None Reported Additional Past Alcohol Use History / Comment(s): QUIT SMOKING 1999, APPROX SMOKED 20 YRS, 1-2PPD. pt states hx alcoholism Past Drug Use History: Marijuana Additional Drug Use History / Comment(s): CURRENTLY USES MARIJUANA - Past Family History Mother Family Medical History: Cancer Father Additional Family Medical History / Comment(s): thinks aneurysm Medications and Allergies Home Medications Medication Instructions Recorded Confirmed Type Albuterol Sulfate [Albuterol 2 puff INHALATION RT-Q4H PRN 07/30/24 12/27/24 History Sulfate Hfa] Metoprolol Tartrate [Lopressor] 25 mg PO BID-W/MEALS 07/30/24 12/27/24 History Nitroglycerin Sl Tabs [Nitrostat] 0.4 mg SL Q5M PRN 07/30/24 12/27/24 History Pantoprazole [Protonix] 40 mg PO DAILY 07/30/24 12/27/24 History Sertraline [Zoloft] 25 mg PO DAILY 07/30/24 12/27/24 History busPIRone HCL [Buspar] 7.5 mg PO BID-W/MEALS 07/30/24 12/27/24 History Acetaminophen Tab [Tylenol] 650 mg PO Q6H PRN 08/28/24 12/27/24 History Atorvastatin [Lipitor] 40 mg PO DAILY 08/28/24 12/27/24 History Thiamine [Vitamin B-1] 100 mg PO DAILY 08/28/24 12/27/24 History Calcium Carbonate [Tums] 1,000 mg PO Q4HR PRN tab 09/06/24 12/27/24 Rx Metoclopramide HCl [Reglan] 5 mg PO BID PRN 12/27/24 12/27/24 History Allergies Allergy/AdvReac Type Severity Reaction Status Date / Time No Known Allergies Allergy Verified 12/27/24 21:06 Surgical - Exam Vital Signs Temp Pulse Resp BP Pulse Ox 98.1 F 112 H 22 150/98 97 12/27/24 17:56 12/27/24 17:56 12/27/24 17:56 12/27/24 17:56 12/27/24 17:56 - General well developed, chronically ill - Eyes PERRL - ENT normal pinna - Neck no masses - Respiratory normal expansion - Cardiovascular Rhythm: regular - Abdomen PEG tube in position Abdomen: soft, non tender Results - Labs 12/28/24 05:50 12/27/24 19:00 Abnormal Lab Results - Last 24 Hours (Table) 12/27/24 12/27/24 12/27/24 Range/Units 19:00 19:00 19:00 WBC (4.50-10.00) 10*3/uL RBC (4.40-5.60) 10*6/uL Hgb (13.0-17.0) g/dL Hct (39.6-50.0) % MCHC (32.0-37.0) g/dL Neutrophils # (1.80-7.70) 10*3/uL Monocytes # (0.20-1.00) 10*3/uL Eosinophils # 0.03 L (0.04-0.35) 10*3/uL APTT 21.8 L (22.0-30.0) sec Sodium 150 H (137-145) mmol/L Chloride 110 H (98-107) mmol/L BUN 28 H (9-20) mg/dL Glucose 132 H (74-99) mg/dL Plasma Lactic Acid Jack (0.7-2.0) mmol/L Lipase 19 L (23-300) U/L Urine Protein (Negative) Urine Blood (Negative) Hyaline Casts (0-2) /lpf Urine Mucus (None) /hpf 12/27/24 12/27/24 12/27/24 Range/Units 19:00 21:45 22:50 WBC (4.50-10.00) 10*3/uL RBC (4.40-5.60) 10*6/uL Hgb (13.0-17.0) g/dL Hct (39.6-50.0) % MCHC (32.0-37.0) g/dL Neutrophils # (1.80-7.70) 10*3/uL Monocytes # (0.20-1.00) 10*3/uL Eosinophils # (0.04-0.35) 10*3/uL APTT (22.0-30.0) sec Sodium (137-145) mmol/L Chloride (98-107) mmol/L BUN (9-20) mg/dL Glucose (74-99) mg/dL Plasma Lactic Acid Jack 2.6 H* 2.1 H* (0.7-2.0) mmol/L Lipase (23-300) U/L Urine Protein Trace H (Negative) Urine Blood Small H (Negative) Hyaline Casts 24 H (0-2) /lpf Urine Mucus Many H (None) /hpf 12/28/24 12/28/24 Range/Units 01:01 05:50 WBC 15.52 H (4.50-10.00) 10*3/uL RBC 4.01 L (4.40-5.60) 10*6/uL Hgb 12.1 L (13.0-17.0) g/dL Hct 37.9 L (39.6-50.0) % MCHC 31.9 L (32.0-37.0) g/dL Neutrophils # 13.20 H (1.80-7.70) 10*3/uL Monocytes # 1.09 H (0.20-1.00) 10*3/uL Eosinophils # (0.04-0.35) 10*3/uL APTT (22.0-30.0) sec Sodium (137-145) mmol/L Chloride (98-107) mmol/L BUN (9-20) mg/dL Glucose (74-99) mg/dL Plasma Lactic Acid Jack 2.2 H* (0.7-2.0) mmol/L Lipase (23-300) U/L Urine Protein (Negative) Urine Blood (Negative) Hyaline Casts (0-2) /lpf Urine Mucus (None) /hpf Diabetes panel 12/27/24 Range/Units 19:00 Sodium 150 H (137-145) mmol/L Potassium 4.3 (3.5-5.1) mmol/L Chloride 110 H (98-107) mmol/L Carbon Dioxide 23 (22-30) mmol/L BUN 28 H (9-20) mg/dL Creatinine 0.86 (0.66-1.25) mg/dL Glucose 132 H (74-99) mg/dL Calcium 9.6 (8.4-10.2) mg/dL AST 32 (17-59) U/L ALT 28 (4-49) U/L Alkaline Phosphatase 124 (38-126) U/L Total Protein 7.7 (6.3-8.2) g/dL Albumin 4.6 (3.5-5.0) g/dL Calcium panel 12/27/24 Range/Units 19:00 Calcium 9.6 (8.4-10.2) mg/dL Albumin 4.6 (3.5-5.0) g/dL Pituitary panel 12/27/24 Range/Units 19:00 Sodium 150 H (137-145) mmol/L Potassium 4.3 (3.5-5.1) mmol/L Chloride 110 H (98-107) mmol/L Carbon Dioxide 23 (22-30) mmol/L BUN 28 H (9-20) mg/dL Creatinine 0.86 (0.66-1.25) mg/dL Glucose 132 H (74-99) mg/dL Calcium 9.6 (8.4-10.2) mg/dL Adrenal panel 12/27/24 Range/Units 19:00 Sodium 150 H (137-145) mmol/L Potassium 4.3 (3.5-5.1) mmol/L Chloride 110 H (98-107) mmol/L Carbon Dioxide 23 (22-30) mmol/L BUN 28 H (9-20) mg/dL Creatinine 0.86 (0.66-1.25) mg/dL Glucose 132 H (74-99) mg/dL Calcium 9.6 (8.4-10.2) mg/dL Total Bilirubin 0.9 (0.2-1.3) mg/dL AST 32 (17-59) U/L ALT 28 (4-49) U/L Alkaline Phosphatase 124 (38-126) U/L Total Protein 7.7 (6.3-8.2) g/dL Albumin 4.6 (3.5-5.0) g/dL Assessment and Plan Plan: Chronic nausea vomiting. Patient should have referral to a tertiary care center for this.
--- NOTE | 2024-12-28 15:41 | XR ---
EXAMINATION TYPE: XR chest 1V portable DATE OF EXAM: 12/28/2024 3:38 PM COMPARISON: Chest radiograph 10/20/2024. CLINICAL INDICATION: Male, 69 years old with history of pneumonia; [facility] TECHNIQUE: XR chest 1V portable Frontal view of the chest. FINDINGS: Lungs/Pleura: There is no evidence of pleural effusion, focal consolidation, or pneumothorax. Pulmonary vascularity: Unremarkable. Heart/mediastinum: Cardiomediastinal silhouette is unremarkable. Musculoskeletal: No acute osseous pathology. Other findings: None IMPRESSION: No acute cardiopulmonary disease/process. [facility], , 12/28/2024 3:39 PM
[2024-12-28 19:27] LABS: RSV Not Detected (Not Detectd)
--- NOTE | 2024-12-29 00:59 | HP ---
HISTORY AND PHYSICAL CHIEF COMPLAINT: Nausea and vomiting. HISTORY OF PRESENT ILLNESS: This 69-year-old gentleman with a past medical history of multiple complex medical issues including SMA syndrome, who was symptomatic. Previously, the patient had multiple hospital admissions. The patient had J tube and PEG tube also. The patient is apparently eating at home at this time. The most recent admission was a couple of months ago. The patient had multiple complex medical issues during that time. There is no history of fever, rigors or chills. PAST MEDICAL HISTORY: History of SMA syndrome and rest of the complicated history which is reviewed. HOME MEDICATIONS: BuSpar. Dose and rest of medications reviewed. ALLERGIES: None. FAMILY HISTORY: History of cancer. SOCIAL HISTORY: History of THC. REVIEW OF SYSTEMS: 14-point review of systems negative except as mentioned earlier. PHYSICAL EXAMINATION: VITAL SIGNS: Pulse is 101, blood pressure 116/84, and respirations 18. HEENT: Conjunctivae normal. NECK: No jugular venous distention. CARDIOVASCULAR: S1, S2. ABDOMEN: Soft, scaphoid. LEGS: No edema. NERVOUS SYSTEM: Diffusely weak. LABORATORY DATA: WBC 15.52. Lactic acid 2.2. ASSESSMENT: 1. Intractable nausea and possible acute gastritis. 2. History of SMA syndrome. 3. Hypernatremia. 4. Elevated WBC for sepsis. 5. History of J-tube and PEG tube. 6. Coronary artery disease. 7. Gastroesophageal reflux disease. 8. Hypertension. 9. Hyperlipidemia. 10.History of pneumonia. 11.History of rheumatoid arthritis. 12.History of asthma. RECOMMENDATIONS: This 69-year-old gentleman presented with multiple complex medical issues. We will monitor the patient closely, continue the current medications, and symptomatic treatment. Otherwise at this time, I would also recommend surgery evaluation, cultures, empiric antibiotics. CT scan showed urinary diverted bladder, diverticulum to the left of the midline. The UA did not show much of abnormality. Overall prognosis is guarded because of multiple complex medical issues. Further recommendations to follow. See orders for details. MMODL / IJN: [id number] /
[2024-12-29] MEDS: METOCLOPRAMIDE 5 MG/ML 2 ML VIAL IVP PRN (06:21)
[2024-12-29 10:05] LABS: ALT 23 U/L (10-49); AST 25 U/L (14-35); Albumin 3.9 g/dL (3.8-4.9); Albumin/Globulin Ratio 1.50 Ratio (1.60-3.17); Alkaline Phosphatase 132 U/L (41-126); Anion Gap 16.30 mmol/L (4.00-12.00); BUN/Creat Ratio 25.44 Ratio (12.00-20.00); Blood Urea Nitrogen 22.9 mg/dL (9.0-27.0); Calcium 9.1 mg/dL (8.7-10.3); Carbon Dioxide 22.7 mmol/L (21.6-31.8); Chloride 113 mmol/L (96-109); Globulin 2.6 g/dL (1.6-3.3); Glucose 89 mg/dL (70-110); Potassium 3.8 mmol/L (3.5-5.5); Sodium 152 mmol/L (135-145); Total Protein 6.5 g/dL (6.2-8.2)
--- NOTE | 2024-12-29 10:21 | P.CONS ---
History of Present Illness - Reason for Consult Consult date: 12/28/24 Sepsis Requesting physician: Magda Bowie - Chief Complaint Vomiting x few days - History of Present Illness Patient is a 69-year-old male with a past medical history significant for Asthma, Coronary Artery Disease (CAD), Chest Pain / Angina, CVA/TIA, GERD/Reflux, Hyperlipidemia, Hypertension, Pneumonia, Rheumatoid Arthritis (RA) who recently did have an extended stay at this facility for intractable nausea and vomiting with EGD and PEG tube placement subsequently did have a Rickie-en-Y gastrojejunostomy and on 10/03/2024 followed by fascial dehiscence and also have a episode of candidemia related to the PICC line he during that admission patient was subsequently transferred to [facility] after a month stay at this facility on 10/24/2024, patient now presenting to this facility last evening concerning for vomiting in this patient apparently has been vomiting for about a week along with abdominal discomfort and last bowel movement was about 3 days prior to presentation to the hospital on presentation to the hospital patient was afebrile and no fever have recorded subsequently patient was mildly tachycardic but not hypotensive or hypoxic patient did have normal white count on admission we did have elevated lactic acid with a white count up to 15.52 today though his lactic acid has normalized and is at the normal urine has been negative influenza RSV COVID testing negative patient did have abdominal pelvis CT which did show some urinary bladder diverticulum but no abnormality to the bowels colitis or any abscess patient also have a chest x-ray no acute cardiopulmonary disease process infectious he was consulted twelve-lead concerning for sepsis provide also patient specifically has been complaining of vomiting as his main symptoms he denies having any fever or any chills no significant abdominal pain no chest pain shortness of breath or cough Review of Systems Positive point and negatives has been mentioned in the HPI, complete review of systems was performed and all other systems are negative Past Medical History Past Medical History: Asthma, Coronary Artery Disease (CAD), Chest Pain / Angina, CVA/TIA, GERD/Reflux, Hyperlipidemia, Hypertension, Pneumonia, Rheumatoid Arthritis (RA) Additional Past Medical History / Comment(s): MIGRAINES, HEART MURMUR, hx HIATAL HERNIA, ANEMIA, one dr told him he had a stroke at one time-no effects, varicose veins, history of incarcerated per esophageal hernia, status post robotic-assisted paraesophageal hernia repair and Frederick fundoplication on 04/12/2022. History of Any Multi-Drug Resistant Organisms: None Reported Past Surgical History: Cholecystectomy, Heart Catheterization, Hernia Repair, Orthopedic Surgery Additional Past Surgical History / Comment(s): Lt achilles tendon,RT SHOULDER surgery, RT ACHILLES TENDON reattached, HEMORRHOIDECTOMY, 13 FATTY TUMORS removed. left hand index finger surgery after injury, EGD WITH DILATION, paraesophageal hernia repair with Frederick fundoplication on 04/12/2022. New feeding tube September 2024. PEG tube Past Anesthesia/Blood Transfusion Reactions: No Reported Reaction Additional Past Anesthesia/Blood Transfusion Reaction / Comm: no hx blood transfusion Past Psychological History: Anxiety, Depression Smoking Status: Former smoker Past Alcohol Use History: None Reported Additional Past Alcohol Use History / Comment(s): QUIT SMOKING 1999, APPROX SMOKED 20 YRS, 1-2PPD. pt states hx alcoholism Past Drug Use History: Marijuana Additional Drug Use History / Comment(s): CURRENTLY USES MARIJUANA - Past Family History Mother Family Medical History: Cancer Father Additional Family Medical History / Comment(s): thinks aneurysm Medications and Allergies Home Medications Medication Instructions Recorded Confirmed Type Albuterol Sulfate [Albuterol 2 puff INHALATION RT-Q4H PRN 07/30/24 12/27/24 History Sulfate Hfa] Metoprolol Tartrate [Lopressor] 25 mg PO BID-W/MEALS 07/30/24 12/27/24 History Nitroglycerin Sl Tabs [Nitrostat] 0.4 mg SL Q5M PRN 07/30/24 12/27/24 History Pantoprazole [Protonix] 40 mg PO DAILY 07/30/24 12/27/24 History Sertraline [Zoloft] 25 mg PO DAILY 07/30/24 12/27/24 History busPIRone HCL [Buspar] 7.5 mg PO BID-W/MEALS 07/30/24 12/27/24 History Acetaminophen Tab [Tylenol] 650 mg PO Q6H PRN 08/28/24 12/27/24 History Atorvastatin [Lipitor] 40 mg PO DAILY 08/28/24 12/27/24 History Thiamine [Vitamin B-1] 100 mg PO DAILY 08/28/24 12/27/24 History Calcium Carbonate [Tums] 1,000 mg PO Q4HR PRN tab 09/06/24 12/27/24 Rx Metoclopramide HCl [Reglan] 5 mg PO BID PRN 12/27/24 12/27/24 History Allergies Allergy/AdvReac Type Severity Reaction Status Date / Time No Known Allergies Allergy Verified 12/27/24 21:06 Physical Exam Vitals: Vital Signs Temp Pulse Pulse Resp BP BP Pulse Ox 12/28/24 15:00 97.1 F L 100 19 168/98 100 12/28/24 07:00 97.6 F 101 H 18 160/84 98 12/28/24 00:24 98.2 F 107 H 18 138/95 99 12/28/24 00:22 107 H 12/27/24 22:30 98.3 F 107 H 18 147/92 96 12/27/24 21:50 102 H 16 165/96 99 12/27/24 20:55 89 16 149/94 99 12/27/24 19:01 96 22 146/104 100 12/27/24 17:56 98.1 F 112 H 22 150/98 97 Intake and Output 12/28/24 12/28/24 12/28/24 06:59 14:59 22:59 Output Total 50 Balance -50 Output: Urine 50 Other: # Voids 1 GENERAL DESCRIPTION: Elderly male lying in bed, no distress. No tachypnea or accessory muscle of respiration use. HEENT: Shows Pallor , no scleral icterus. Oral mucous membrane is dry. NECK: Trachea central, no thyromegaly. LUNGS: Unlabored breathing. Clear to auscultation anteriorly. No wheeze or crackle. HEART: S1, S2, regular rate and rhythm. No loud murmur ABDOMEN: Soft, no tenderness , abdominal incision is currently healed EXTREMITIES: No edema of feet. SKIN: No rash, no masses palpable. NEUROLOGICAL: The patient is awake, alert, mood and affect normal. Results CBC & Chem 7: 12/29/24 05:48 12/29/24 05:48 Labs: Abnormal Lab Results - Last 24 Hours (Table) 12/27/24 12/27/24 12/27/24 Range/Units 19:00 19:00 19:00 WBC (4.50-10.00) 10*3/uL RBC (4.40-5.60) 10*6/uL Hgb (13.0-17.0) g/dL Hct (39.6-50.0) % MCHC (32.0-37.0) g/dL Neutrophils # (1.80-7.70) 10*3/uL Monocytes # (0.20-1.00) 10*3/uL Eosinophils # 0.03 L (0.04-0.35) 10*3/uL APTT 21.8 L (22.0-30.0) sec Sodium 150 H (137-145) mmol/L Chloride 110 H (98-107) mmol/L BUN 28 H (9-20) mg/dL Glucose 132 H (74-99) mg/dL Plasma Lactic Acid Jack (0.7-2.0) mmol/L Lipase 19 L (23-300) U/L Urine Protein (Negative) Urine Blood (Negative) Hyaline Casts (0-2) /lpf Urine Mucus (None) /hpf 12/27/24 12/27/24 12/27/24 Range/Units 19:00 21:45 22:50 WBC (4.50-10.00) 10*3/uL RBC (4.40-5.60) 10*6/uL Hgb (13.0-17.0) g/dL Hct (39.6-50.0) % MCHC (32.0-37.0) g/dL Neutrophils # (1.80-7.70) 10*3/uL Monocytes # (0.20-1.00) 10*3/uL Eosinophils # (0.04-0.35) 10*3/uL APTT (22.0-30.0) sec Sodium (137-145) mmol/L Chloride (98-107) mmol/L BUN (9-20) mg/dL Glucose (74-99) mg/dL Plasma Lactic Acid Jack 2.6 H* 2.1 H* (0.7-2.0) mmol/L Lipase (23-300) U/L Urine Protein Trace H (Negative) Urine Blood Small H (Negative) Hyaline Casts 24 H (0-2) /lpf Urine Mucus Many H (None) /hpf 12/28/24 12/28/24 Range/Units 01:01 05:50 WBC 15.52 H (4.50-10.00) 10*3/uL RBC 4.01 L (4.40-5.60) 10*6/uL Hgb 12.1 L (13.0-17.0) g/dL Hct 37.9 L (39.6-50.0) % MCHC 31.9 L (32.0-37.0) g/dL Neutrophils # 13.20 H (1.80-7.70) 10*3/uL Monocytes # 1.09 H (0.20-1.00) 10*3/uL Eosinophils # (0.04-0.35) 10*3/uL APTT (22.0-30.0) sec Sodium (137-145) mmol/L Chloride (98-107) mmol/L BUN (9-20) mg/dL Glucose (74-99) mg/dL Plasma Lactic Acid Jack 2.2 H* (0.7-2.0) mmol/L Lipase (23-300) U/L Urine Protein (Negative) Urine Blood (Negative) Hyaline Casts (0-2) /lpf Urine Mucus (None) /hpf Assessment and Plan (1) Leukocytosis Current Visit: Yes Status: Acute Code(s): D72.829 - ELEVATED WHITE BLOOD CELL COUNT, UNSPECIFIED SNOMED Code(s): 723356316 (2) Lactic acidosis Current Visit: No Status: Acute Code(s): E87.20 - ACIDOSIS, UNSPECIFIED SNOMED Code(s): 52669249 Plan: 1patient with a complicated GI history as he did have a previous EGD and PEG tube placement for intractable nausea vomiting subsequent did have Rickie-en-Y gastrojejunostomy and on 10/03/2024 and did have a fascial dehiscence subsequent transfer to [facility] for further care which I do not have any access to, presenting with intractable nausea and vomiting patient did not have any fever initial white count was normal but now jumped to 15,000 he did have lactic acidosis on admission that has subsequently resolved with IV fluids source poss ible abdominal however admission CT did not show any acute abnormality but was done without any contrast limiting his sensitivity 2would recommend repeating a CT of abdominal pelvis with contrast versus nausea vomiting has some improvement with the patient able to tolerate contrast 3blood cultures has been obtained we will also check inflammatory markers, may continue with empiric antibiotic while waiting for workup to be completed We will follow on clinical condition and cultures to further adjust medication if needed Thank you for this consultation we will follow the patient along with you Dictation was produced using [employer] dictation software. please excuse any grammatical, word or spelling errors. Time with Patient: Greater than 30
[2024-12-29] MEDS ORDERED: D5W WITH KCL 20 MEQ/L 1,000 ML IV SCH (10:45)
[2024-12-29] MEDS: D5W WITH KCL 20 MEQ/L 1,000 ML IV SCH (11:12)
[2024-12-29 11:48] LABS: Basophils # (A) 0.04 X 10*3/uL (0.00-0.10); Basophils % (A) 0.3 %; Eosinophils # (A) 0.03 X 10*3/uL (0.04-0.35); Eosinophils % (A) 0.3 %; HCT 39.0 % (39.6-50.0); HGB 11.9 g/dL (13.0-17.0); Immature Grans, Automated 0.40 %; Lymphocytes # (A) 1.23 X 10*3/uL (0.90-5.00); Lymphocytes % (A) 10.3 %; MCH 29.4 pg (27.0-32.0); MCHC 30.5 g/dL (32.0-37.0); MCV 96.3 FL (80.0-97.0); Monocytes # (A) 0.79 X 10*3/uL (0.20-1.00); Monocytes % (A) 6.6 %; NRBC Per 100 WBC 0 X 10*3/uL (0.00-0.01); Neutrophils # (A) 9.82 X 10*3/uL (1.80-7.70); Neutrophils % (A) 82.1 %; Platelet Count 377 X 10*3/uL (140-440); RBC 4.05 X 10*6/uL (4.40-5.60); RDW 16.5 % (11.5-14.5); WBC 11.96 X 10*3/uL (4.50-10.00)
--- NOTE | 2024-12-29 13:10 | P.PN ---
Subjective Progress Note Date: 12/29/24 Patient still has complaints of nausea with vomiting. He denies any significant abdominal pain. On exam vital signs appear stable. Abdomen soft. Intractable nausea and vomiting. Patient should be evaluated by tertiary care center. He has had an extensive workup at our facility. Objective - Vital Signs Vital signs: Vital Signs Temp 97.8 F 12/29/24 07:11 Pulse 115 H 12/29/24 07:11 Resp 20 12/29/24 07:11 BP 170/78 12/29/24 07:11 Pulse Ox 99 12/29/24 07:11 FiO2 Intake & Output 12/28/24 12/29/24 12/29/24 18:59 06:59 18:59 Output Total 320 Balance -320 Output: Urine 220 Emesis 100 Other: # Voids 1 1 - Labs CBC & Chem 7: 12/29/24 05:48 12/29/24 05:48 Labs: Abnormal Lab Results - Last 24 Hours (Table) 12/29/24 12/29/24 Range/Units 05:48 05:48 WBC 11.96 H (4.50-10.00) X 10*3/uL RBC 4.05 L (4.40-5.60) X 10*6/uL Hgb 11.9 L (13.0-17.0) g/dL Hct 39.0 L (39.6-50.0) % MCHC 30.5 L (32.0-37.0) g/dL RDW 16.5 H (11.5-14.5) % Immature Gran # 0.05 H (0.00-0.04) X 10*3/uL Neutrophils # 9.82 H (1.80-7.70) X 10*3/uL Eosinophils # 0.03 L (0.04-0.35) X 10*3/uL Sodium 152 H (135-145) mmol/L Chloride 113 H (96-109) mmol/L Anion Gap 16.30 H (4.00-12.00) mmol/L BUN/Creatinine Ratio 25.44 H (12.00-20.00) Ratio Alkaline Phosphatase 132 H (41-126) U/L Albumin/Globulin Ratio 1.50 L (1.60-3.17) Ratio
[2024-12-29] MEDS ORDERED: ALBUTEROL NEBULIZED 2.5 MG/3 ML INHALATION PRN (14:48)
--- NOTE | 2024-12-29 15:37 | PN ---
PROGRESS NOTE DATE OF SERVICE: 12/29/2024 SUBJECTIVE: This is a 69-year-old gentleman with a past medical history of SMA syndrome and multiple complex medical issues including complicated tube placements, was unable to keep anything down. The patient has some vomiting and severe pain also. The patient is being treated symptomatically at this time. The patient had PEG tube feedings at some point. Otherwise, currently the Surgery has seen the patient, recommended possible transfer. The patient is not feeling better. The patient is slightly more verbal today. PAST MEDICAL HISTORY: Reviewed. REVIEW OF SYSTEMS: A 14-point review of systems negative except as mentioned earlier. CURRENT MEDICATIONS: Reviewed include Rocephin. Rest of medications from chart was reviewed. PHYSICAL EXAMINATION: VITAL SIGNS: Pulse is 112, blood pressure 167/89, and respirations 17. HEENT: Conjunctivae normal. NECK: No JVD. CARDIOVASCULAR: S1, S2. RESPIRATIONS: Few scattered rhonchi and crackles. ABDOMEN: Soft. NERVOUS SYSTEM: Nonfocal. LABORATORY DATA: WBC 11.6, sodium 152, rest of the labs are noted. ASSESSMENT: 1. Intractable nausea and possible acute gastritis. 2. Hypernatremia. 3. History of SMA syndrome. 4. Tachycardia. 5. Elevated WBC, possibly sepsis. 6. History of J-tube and PEG tube. 7. History of coronary artery disease. 8. Gastroesophageal reflux disease. 9. Hypertension. 10.Hyperlipidemia. 11.History of pneumonia. 12.History of rheumatoid arthritis. 13.History of asthma. 14.History of multiple complex medical issues. RECOMMENDATIONS: Recommend to continue current management and continue symptomatic treatment. Continue with empiric antibiotics. I would change the fluid to D5 water 20 KCl. Monitor lytes closely. I would also recommend Surgery and Infectious Disease evaluation. Follow the cultures. Resume home medications once they are confirmed. Prognosis guarded, because of multiple complex medical issues. Further recommendations to follow. MMODL / IJN: [id number] /
--- NOTE | 2024-12-29 16:03 | P.PN ---
Subjective Progress Note Date: 12/29/24 Principal diagnosis: Reason for follow-up is leukocytosis/lactic acidosis Patient is a 69-year-old male with a past medical history significant for Asthma, Coronary Artery Disease (CAD), Chest Pain / Angina, CVA/TIA, GERD/Reflux, Hyperlipidemia, Hypertension, Pneumonia, Rheumatoid Arthritis (RA) who recently did have an extended stay at this facility for intractable nausea and vomiting with EGD and PEG tube placement subsequently did have a Rickie-en-Y gastrojejunostomy and on 10/03/2024 subsequent a prolonged hospital stay and afterwards was transferred to a different hospital now presenting with intractable nausea vomiting he did have a mild elevated white count and lactic acid prompting this consultation. On today's evaluation that is 12/29/2024, Patient is afebrile patient is currently on room air and denies having any shortness of breath, the patient denies any chest pain or cough, the patient still complain of nausea but vomiting has improved no abdominal pain or diarrhea. Patient white count is down to 11.96 creatinine 0.9 Objective - Vital Signs Vital signs: Vital Signs Temp 98.4 F 12/29/24 14:00 Pulse 112 H 12/29/24 14:00 Resp 17 12/29/24 14:00 BP 167/89 12/29/24 14:00 Pulse Ox 98 12/29/24 14:00 FiO2 Intake & Output 12/28/24 12/29/24 12/29/24 18:59 06:59 18:59 Output Total 320 Balance -320 Output: Urine 220 Emesis 100 Other: # Voids 1 1 - Exam GENERAL DESCRIPTION: An elderly male lying in bed in no distress RESPIRATORY SYSTEM: Unlabored breathing , decreased breath sounds at bases HEART: S1 S2 regular rate and rhythm , ABDOMEN: Soft , no tenderness EXTREMITIES: No edema feet - Labs CBC & Chem 7: 12/29/24 05:48 12/29/24 05:48 Labs: Abnormal Lab Results - Last 24 Hours (Table) 12/29/24 12/29/24 Range/Units 05:48 05:48 WBC 11.96 H (4.50-10.00) X 10*3/uL RBC 4.05 L (4.40-5.60) X 10*6/uL Hgb 11.9 L (13.0-17.0) g/dL Hct 39.0 L (39.6-50.0) % MCHC 30.5 L (32.0-37.0) g/dL RDW 16.5 H (11.5-14.5) % Immature Gran # 0.05 H (0.00-0.04) X 10*3/uL Neutrophils # 9.82 H (1.80-7.70) X 10*3/uL Eosinophils # 0.03 L (0.04-0.35) X 10*3/uL Sodium 152 H (135-145) mmol/L Chloride 113 H (96-109) mmol/L Anion Gap 16.30 H (4.00-12.00) mmol/L BUN/Creatinine Ratio 25.44 H (12.00-20.00) Ratio Alkaline Phosphatase 132 H (41-126) U/L Albumin/Globulin Ratio 1.50 L (1.60-3.17) Ratio Assessment and Plan (1) Leukocytosis Current Visit: Yes Status: Acute Code(s): D72.829 - ELEVATED WHITE BLOOD CELL COUNT, UNSPECIFIED SNOMED Code(s): 519984110 (2) Lactic acidosis Current Visit: No Status: Acute Code(s): E87.20 - ACIDOSIS, UNSPECIFIED SNOMED Code(s): 52988586 Plan: 1patient with a complicated GI history as he did have a previous EGD and PEG tube placement for intractable nausea vomiting subsequent did have Rickie-en-Y gastrojejunostomy and on 10/03/2024 and did have a fascial dehiscence subsequent transfer to [facility] for further care which I do not have any access to, presenting with intractable nausea and vomiting patient did not have any fever initial white count was normal but now jumped to 15,000 he did have lactic acidosis on admission that has subsequently resolved with IV fluids source possible abdominal however admission CT did not show any acute abnormality but was done without any contrast limiting his sensitivity 2would recommend repeating a CT of abdominal pelvis with contrast versus nausea vomiting has some improvement with the patient able to tolerate contrast versus transfer to tertiary care as has been recommended by general surgery 3patient white count is trending down to continue with Rocephin Dictation was produced using [employer] dictation software. please excuse any gra mmatical, word or spelling errors. Time with Patient: Less than 30
[2024-12-29] MEDS: PANTOPRAZOLE 40 MG/10 ML VIAL IVP SCH (16:39)
[2024-12-29] MEDS: METOPROLOL TARTRATE 25 MG TAB PO SCH (17:56)
[2024-12-29] MEDS: HEPARIN SODIUM,PORCINE 5,000 UNIT/ML 1 ML VIAL SQ SCH (20:22)
[2024-12-30] MEDS: ATORVASTATIN 40 MG TAB PO SCH (08:48)
[2024-12-30] MEDS: SERTRALINE 25 MG TAB PO SCH (08:49)
[2024-12-30] MEDS ORDERED: hydrALAZINE HCL 20 MG/ML 1 ML VIAL IVP PRN (10:14)
--- NOTE | 2024-12-30 15:25 | P.PN ---
Subjective Progress Note Date: 12/30/24 SURGICAL PROGRESS NOTE CHIEF COMPLAINT: Recurrent intractable nausea and vomiting HISTORY OF PRESENT ILLNESS: Patient continues to have nausea and vomiting. Afebrile. WBC 15 down to 11.9 Hgb 11.9 platelets 377. Per nursing staff they are trying to obtain records from prior [facility] hospitalization. Patient had CT scan abdomen and pelvis on 12/27/2024 reported urinary bladder diverticulum to the left midline. Upper GI with esophagus on 09/30/2024 nondiagnostic study on 08/05/2024 upper GI mild stricture involving the distal third thoracic esophagus could be due to esophagitis or neoplasm. Tiny diverticulum mid thoracic esophagus Upper GI with small bowel follow-through on 08/30/2024 Limited exam difficulty with ingesting contrast. No obvious dilation to suggest obstruction. Irregularity of gastric body could be related to underdistention, mucous lesion mass is in the differential diagnosis. No evidence of esophageal obstruction. History of SMA syndrome status post Rickie-en-Y gastrojejunostomy on 09/25/2024 EGD 09/12/2024 small hiatal hernia. No evidence of gastric outlet obstruction PHYSICAL EXAM: VITAL SIGNS: Reviewed. GENERAL: no acute distress. ABDOMEN: Soft. Nondistended. NEUROLOGIC: Awake and alert ASSESSMENT: 1. Intractable nausea and vomiting PLAN: - Recommend evaluation at tertiary care center Physician Business Risk Analyst note has been reviewed by physician. Signing provider agrees with the documented findings, assessment, and plan of care. Objective - Vital Signs Vital signs: Vital Signs Temp 97.6 F 12/30/24 13:51 Pulse 92 12/30/24 13:51 Resp 18 12/30/24 13:51 BP 163/91 12/30/24 13:51 Pulse Ox 98 12/30/24 13:51 FiO2 Intake & Output 12/29/24 12/30/24 12/30/24 18:59 06:59 18:59 Intake Total 200 Output Total 450 Balance -250 Intake: Oral 200 Output: Urine 450 Other: # Voids 3 # Bowel Movements 0 - Labs CBC & Chem 7: 12/29/24 05:48 12/29/24 05:48 Labs: Microbiology - Last 24 Hours (Table) 12/29/24 06:02 Urine Culture - Final Urine,Clean Catch 12/28/24 15:30 Blood Culture - Preliminary Blood
[2024-12-31 06:40] LABS: ALT 15 U/L (4-49); African American GFR (CKD) >90 (>60 ml/min/1.73 sqM); Albumin/Globulin Ratio 1.3; Anion Gap 9 mmol/L; Basophils # (A) 0.03 10*3/uL (0.00-0.10); Basophils % (A) 0.4 %; Blood Urea Nitrogen 15 mg/dL (9-20); Calcium 9.0 mg/dL (8.4-10.2); Carbon Dioxide 25 mmol/L (22-30); Chloride 108 mmol/L (98-107); Eosinophils # (A) 0.15 10*3/uL (0.04-0.35); Eosinophils % (A) 1.8 %; Globulin 2.6 g/dL; Glucose 114 mg/dL (74-99); HCT 36.8 % (39.6-50.0); HGB 11.7 g/dL (13.0-17.0); Lymphocytes # (A) 1.48 10*3/uL (0.90-5.00); Lymphocytes % (A) 17.3 %; MCH 29.6 pg (27.0-32.0); MCHC 31.8 g/dL (32.0-37.0); MCV 93.2 fL (80.0-97.0); Monocytes # (A) 0.58 10*3/uL (0.20-1.00); Monocytes % (A) 6.8 %; Neutrophils # (A) 6.24 10*3/uL (1.80-7.70); Neutrophils % (A) 72.9 %; Non-African American GFR(CKD) >90 (>60 ml/min/1.73 sqM); RBC 3.95 10*6/uL (4.40-5.60); RDW 16.0 % (11.5-14.5); Sodium 142 mmol/L (137-145); WBC 8.55 10*3/uL (4.50-10.00)
[2024-12-31 06:41] LABS: AST 29 U/L (17-59); Albumin 3.5 g/dL (3.5-5.0); Alkaline Phosphatase 99 U/L (38-126); Potassium 4.6 mmol/L (3.5-5.1); Total Protein 6.1 g/dL (6.3-8.2)
[2024-12-31 06:45] LABS: Platelet Count 263 10*3/uL (140-440)
[2024-12-31] MEDS: IOPAMIDOL CONTRAST (ORAL USE) VIAL PO PRN (12:11)
--- NOTE | 2024-12-31 12:49 | PN ---
PROGRESS NOTE DATE OF SERVICE: 12/30/2024 SUBJECTIVE: This 69-year-old gentleman with a past medical history of SMA syndrome, PEG tube and G- tube. He is complaining intractable nausea, vomiting. The patient is previously referred to [facility] with prolonged stay, but it was unclear what they have done. The discharge notes are not available. No chest pain. No palpitation. MEDICATIONS: Reviewed. REVIEW OF SYSTEMS: Negative. OBJECTIVE: VITAL SIGNS: Pulse 86, blood pressure 178/90, respirations 17. CHEST: Few scattered rhonchi and crackles. ABDOMEN: Soft. NERVOUS SYSTEM: Nonfocal. LABORATORY DATA: Reviewed. ASSESSMENT: 1. Intractable nausea, vomiting with possible acute gastritis. 2. Hypernatremia. 3. History of superior mesenteric artery syndrome. 4. Hypertension. 5. Tachycardia. 6. Elevated WBC, possibly sepsis. 7. History of J-tube and PEG tube. 8. History of coronary artery disease. 9. Gastroesophageal reflux disease. 10.Hypertension. 11.Hyperlipidemia. 12.History of pneumonia. 13.History of rheumatoid arthritis. 14.Asthma. 15.Multiple complex medical issues. RECOMMENDATIONS: Recommend to continue current management and continue symptomatic treatment. Cultures are negative so far. I would recommend IV fluids, D5 water to be continued and monitor sodium closely. I would also recommend hydralazine on a p.r.n. basis. The patient has empiric antibiotics, closely follow with multiple consultants. I will obtain the discharge summary at [facility] and continue to monitor. Further recommendations to follow. MMODL / IJN: [id number] /
--- NOTE | 2024-12-31 14:06 | P.PN ---
Subjective Progress Note Date: 12/31/24 SURGICAL PROGRESS NOTE CHIEF COMPLAINT: Recurrent intractable nausea and vomiting HISTORY OF PRESENT ILLNESS: Patient with no new complaints. Continues to have nausea vomiting. Patient continues to have nausea and vomiting. WBC is normalized from 11.9-8.5 medical services obtaining records from [facility] from patient's last admission there. Patient has had an extensive workup here at [facility]. 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 Upper GI with esophagus on 09/30/2024 nondiagnostic study on 08/05/2024 upper GI mild stricture involving the distal third thoracic esophagus could be due to esophagitis or neoplasm. Tiny diverticulum mid thoracic esophagus Upper GI with small bowel follow-through on 08/30/2024 Limited exam difficulty with ingesting contrast. No obvious dilation to suggest obstruction. Irregularity of gastric body could be related to underdistention, mucous lesion mass is in the differential diagnosis. No evidence of esophageal obstruction. History of SMA syndrome status post Rickie-en-Y gastrojejunostomy on 09/25/2024 EGD 09/12/2024 small hiatal hernia. No evidence of gastric outlet obstruction PHYSICAL EXAM: VITAL SIGNS: Reviewed. GENERAL: no acute distress. ABDOMEN: Soft. Nondistended. NEUROLOGIC: Awake and alert ASSESSMENT: 1. Intractable nausea and vomiting PLAN: - Recommend evaluation at tertiary care center - Medicine service has ordered a CT scan abdomen and pelvis Physician Care Program Director note has been reviewed by physician. Signing provider agrees with the documented findings, assessment, and plan of care. Objective - Vital Signs Vital signs: Vital Signs Temp 98.0 F 12/31/24 07:41 Pulse 98 12/31/24 07:41 Resp 14 12/31/24 07:41 BP 124/75 12/31/24 07:41 Pulse Ox 99 12/31/24 07:41 FiO2 Intake & Output 12/30/24 12/31/24 12/31/24 18:59 06:59 18:59 Intake Total 200 Output Total 450 300 Balance -250 -300 Intake: Oral 200 Output: Urine 450 300 Other: # Bowel Movements 0 - Labs CBC & Chem 7: 12/31/24 05:59 12/31/24 05:59 Labs: Abnormal Lab Results - Last 24 Hours (Table) 12/31/24 12/31/24 Range/Units 05:59 05:59 RBC 3.95 L (4.40-5.60) 10*6/uL Hgb 11.7 L (13.0-17.0) g/dL Hct 36.8 L (39.6-50.0) % MCHC 31.8 L (32.0-37.0) g/dL RDW 16.0 H (11.5-14.5) % Immature Gran # 0.07 H (0.00-0.04) 10*3/uL Chloride 108 H (98-107) mmol/L Glucose 114 H (74-99) mg/dL Total Protein 6.1 L (6.3-8.2) g/dL Microbiology - Last 24 Hours (Table) 12/28/24 15:30 Blood Culture - Preliminary Blood
--- NOTE | 2024-12-31 14:23 | CT ---
EXAMINATION TYPE: CT abdomen pelvis wo con DATE OF EXAM: 12/31/2024 COMPARISON: 11/26/2024 CLINICAL INDICATION: Male, 69 years old with history of int n/v sma syndrome; PHH, intractable nausea , vomiting, hypernatremia TECHNIQUE: CT scan of the abdomen and pelvis is performed without oral or IV contrast. CT DLP: 346.[address] CTDI: mGy Automated exposure control for dose reduction was used. FINDINGS: Within the limitations of a non-contrast study, the following observations are made. There are mild chronic interstitial changes in the right lung base. There is a feeding tube entering the stomach and terminating in the proximal jejunum. The gallbladder is surgically absent. There is no biliary ductal dilatation. There is no organomegaly of the liver, pancreas, spleen or adrenal glands. There are no renal calcifications or hydronephrosis. The caliber of the abdominal aorta is normal and there is no retroperitoneal adenopathy or hemorrhage . The bowel loops are normal in caliber is no evidence of obstruction. No inflammatory changes are iden tified in the mesentery and there is no free intraperitoneal air or fluid. There is no pelvic mass, free fluid, abscess or adenopathy. There is moderate prostatic hypertrophy. The osseous structures and soft tissues are unremarkable. IMPRESSION: 1. Gastrojejunostomy feeding tube unchanged in position. 2. Mild chronic interstitial changes in the right lung base. 3. Moderate prostatic hypertrophy. 4. No acute changes within the abdomen or pelvis. No interval change compared to previous X-Ray Elver Manzo, Workstation: [facility], 12/31/2024 2:21 PM
--- NOTE | 2024-12-31 16:26 | P.PN ---
Subjective Progress Note Date: 12/30/24 Principal diagnosis: Reason for follow-up is leukocytosis/lactic acidosis Patient is a 69-year-old male with a past medical history significant for Asthma, Coronary Artery Disease (CAD), Chest Pain / Angina, CVA/TIA, GERD/Reflux, Hyperlipidemia, Hypertension, Pneumonia, Rheumatoid Arthritis (RA) who recently did have an extended stay at this facility for intractable nausea and vomiting with EGD and PEG tube placement subsequently did have a Rickie-en-Y gastrojejunostomy and on 10/03/2024 subsequent a prolonged hospital stay and afterwards was transferred to a different hospital now presenting with intractable nausea vomiting he did have a mild elevated white count and lactic acid prompting this consultation. On today's evaluation that is 12/30/2024, patient has been afebrile, patient is breathing comfortably and is currently on room air, patient denies having any chest pain and cough, patient still complaining of some nausea overall vomiting has improved did not have any bowel movement. No D-dimer obtained today cultures are pending Objective - Vital Signs Vital signs: Vital Signs Temp 97.6 F 12/30/24 13:51 Pulse 92 12/30/24 13:51 Resp 18 12/30/24 13:51 BP 163/91 12/30/24 13:51 Pulse Ox 98 12/30/24 13:51 FiO2 Intake & Output 12/29/24 12/30/24 12/30/24 18:59 06:59 18:59 Intake Total 200 Output Total 450 Balance -250 Intake: Oral 200 Output: Urine 450 Other: # Voids 3 # Bowel Movements 0 - Exam GENERAL DESCRIPTION: An elderly male lying in bed in no distress RESPIRATORY SYSTEM: Unlabored breathing , decreased breath sounds at bases HEART: S1 S2 regular rate and rhythm , ABDOMEN: Soft , no tenderness EXTREMITIES: No edema feet - Labs CBC & Chem 7: 12/31/24 05:59 12/31/24 05:59 Labs: Microbiology - Last 24 Hours (Table) 12/29/24 06:02 Urine Culture - Final Urine,Clean Catch 12/28/24 15:30 Blood Culture - Preliminary Blood Assessment and Plan (1) Leukocytosis Current Visit: Yes Status: Acute Code(s): D72.829 - ELEVATED WHITE BLOOD CELL COUNT, UNSPECIFIED SNOMED Code(s): 019819381 (2) Lactic acidosis Current Visit: No Status: Acute Code(s): E87.20 - ACIDOSIS, UNSPECIFIED SNOMED Code(s): 47110492 Plan: 1patient with a complicated GI history as he did have a previous EGD and PEG tube placement for intractable nausea vomiting subsequent did have Rickie-en-Y gastrojejunostomy and on 10/03/2024 and did have a fascial dehiscence subsequent transfer to [facility] for further care which I do not have any access to, presenting with intractable nausea and vomiting patient did not have any fever initial white count was normal but now jumped to 15,000 he did have lactic acidosis on admission that has subsequently resolved with IV fluids source possible abdominal however admission CT did not show any acute abnormality but was done without any contrast limiting his sensitivity 2would recommend repeating a CT of abdominal pelvis with contrast versus nausea vomiting has some improvement with the patient able to tolerate contrast versus transfer to tertiary care as has been recommended by general surgery 3patient white count is trending down as of yesterday no CBC was done today we will repeat a CBC with a.m. lab, to continue with Andra Dictation was produced using [employer] dictation software. please excuse any grammatical, word or spelling errors. Time with Patient: Less than 30
--- NOTE | 2024-12-31 16:27 | P.PN ---
Subjective Progress Note Date: 12/31/24 Principal diagnosis: Reason for follow-up is leukocytosis/lactic acidosis Patient is a 69-year-old male with a past medical history significant for Asthma, Coronary Artery Disease (CAD), Chest Pain / Angina, CVA/TIA, GERD/Reflux, Hyperlipidemia, Hypertension, Pneumonia, Rheumatoid Arthritis (RA) who recently did have an extended stay at this facility for intractable nausea and vomiting with EGD and PEG tube placement subsequently did have a Rickie-en-Y gastrojejunostomy and on 10/03/2024 subsequent a prolonged hospital stay and afterwards was transferred to a different hospital now presenting with intractable nausea vomiting he did have a mild elevated white count and lactic acid prompting this consultation. On today's evaluation that is 12/31/2024, Patient is afebrile this morning patient denies having any chest pain shortness of breath or cough, the patient i s currently on room air, patient mention improvement abdominal pain no further vomiting denies any bowel movement. Cultures so far negative white count normalized to 8.55, creatinine 0.67 Objective - Vital Signs Vital signs: Vital Signs Temp 98.2 F 12/31/24 14:00 Pulse 68 12/31/24 14:00 Resp 14 12/31/24 14:00 BP 146/91 12/31/24 14:00 Pulse Ox 98 12/31/24 14:00 FiO2 Intake & Output 12/30/24 12/31/24 12/31/24 18:59 06:59 18:59 Intake Total 200 Output Total 450 300 Balance -250 -300 Intake: Oral 200 Output: Urine 450 300 Other: # Bowel Movements 0 - Exam GENERAL DESCRIPTION: An elderly male lying in bed in no distress RESPIRATORY SYSTEM: Unlabored breathing , decreased breath sounds at bases HEART: S1 S2 regular rate and rhythm , ABDOMEN: Soft , no tenderness EXTREMITIES: No edema feet - Labs CBC & Chem 7: 12/31/24 05:59 12/31/24 05:59 Labs: Abnormal Lab Results - Last 24 Hours (Table) 12/31/24 12/31/24 Range/Units 05:59 05:59 RBC 3.95 L (4.40-5.60) 10*6/uL Hgb 11.7 L (13.0-17.0) g/dL Hct 36.8 L (39.6-50.0) % MCHC 31.8 L (32.0-37.0) g/dL RDW 16.0 H (11.5-14.5) % Immature Gran # 0.07 H (0.00-0.04) 10*3/uL Chloride 108 H (98-107) mmol/L Glucose 114 H (74-99) mg/dL Total Protein 6.1 L (6.3-8.2) g/dL Microbiology - Last 24 Hours (Table) 12/28/24 15:30 Blood Culture - Preliminary Blood Assessment and Plan (1) Leukocytosis Current Visit: Yes Status: Acute Code(s): D72.829 - ELEVATED WHITE BLOOD CELL COUNT, UNSPECIFIED SNOMED Code(s): 130903857 (2) Lactic acidosis Current Visit: No Status: Acute Code(s): E87.20 - ACIDOSIS, UNSPECIFIED SNOMED Code(s): 09363393 Plan: 1patient with a complicated GI history as he did have a previous EGD and PEG tube placement for intractable nausea vomiting subsequent did have Rickie-en-Y gastrojejunostomy and on 10/03/2024 and did have a fascial dehiscence subsequent transfer to [facility] for further care which I do not have any access to, presenting with intractable nausea and vomiting patient did not have any fever initial white count was normal but now jumped to 15,000 he did have lactic acidosis on admission that has subsequently resolved with IV fluids source possible abdominal however admission CT did not show any acute abnormality but was done without any contrast limiting his sensitivity 2patient did have normalization of his white count culture has been negative so far continue with Rocephin CT with oral contrast discussed again with the admitting team and will be ordered today Dictation was produced using [employer] dictation software. please excuse any grammatical, word or spelling errors. Time with Patient: Less than 30
--- NOTE | 2024-12-31 23:08 | PN ---
PROGRESS NOTE DATE OF SERVICE: 12/30/2024 SUBJECTIVE: This is a 69-year-old gentleman who was admitted with intractable nausea and vomiting with possible acute gastritis, being closely monitored at this time. The patient has been to [facility] without much intervention at this time as per the detailed discharge summary provided from [facility]. CAT scan has been done showing GJ feeding tube unchanged in position and chronic interstitial changes are noted. I would recommend small dose of tube feeds with Reglan at this time. PAST MEDICAL HISTORY: Reviewed. REVIEW OF SYSTEMS: A 14-point review of systems negative except as mentioned earlier. CURRENT MEDICATIONS: Reviewed. PHYSICAL EXAMINATION: VITAL SIGNS: Pulse is 68, blood pressure 140/97, respiratory rate 14. CHEST: Few scattered rhonchi. ABDOMEN: Soft, scaphoid. NERVOUS SYSTEM: Nonfocal. LABORATORY DATA: Reviewed. The cultures are negative so far. ASSESSMENT: 1. Intractable nausea and vomiting, possible acute gastritis and gastroparesis. 2. Superior mesenteric artery syndrome. 3. Hypernatremia. 4. Hypertension. 5. Tachycardia. 6. Increased WBC, possibly sepsis. 7. History of J tube and PEG tube. 8. History of coronary artery disease. 9. GI bleed. 10.Hyperlipidemia. 11.History of pneumonia. 12.History of gout. 13.History of asthma. 14.Multiple complex medical issues. RECOMMENDATIONS: Recommend to continue current management and treatment. At this time, I recommend initiate small dose of tube feeds with Reglan. Closely follow with multiple consultants. Prognosis guarded. Cultures are negative so far. Further recommendations to follow. White count is improved. MMODL / IJN: [id number] /
[2025-01-01] MEDS: DEXTROSE 5% IN WATER 1,000 ML with POTASSIUM CHLORIDE 20 MEQ IV SCH (08:55)
[2025-01-01] MEDS: METOCLOPRAMIDE 5 MG/ML 2 ML VIAL IVP SCH (12:16)
--- NOTE | 2025-01-01 15:20 | P.PN ---
Subjective Progress Note Date: 01/01/25 Principal diagnosis: Reason for follow-up is leukocytosis/lactic acidosis Patient is a 69-year-old male with a past medical history significant for Asthma, Coronary Artery Disease (CAD), Chest Pain / Angina, CVA/TIA, GERD/Reflux, Hyperlipidemia, Hypertension, Pneumonia, Rheumatoid Arthritis (RA) who recently did have an extended stay at this facility for intractable nausea and vomiting with EGD and PEG tube placement subsequently did have a Rickie-en-Y gastrojejunostomy and on 10/03/2024 subsequent a prolonged hospital stay and afterwards was transferred to a different hospital now presenting with intractable nausea vomiting he did have a mild elevated white count and lactic acid prompting this consultation. On today's evaluation that is 01/01/2025,the patient denies any fever or any chills, patient is breathing comfortably on room air, the patient denies chest pain shortness of breath and no significant cough, patient denies abdominal pain, mention improvement in the nausea no further vomiting and no bowel movement. No new lab has been obtained today did have a CT abdominal pelvis completed yesterday afternoon did not show any leakage inflammation or abscess Objective - Vital Signs Vital signs: Vital Signs Temp 97.0 F L 01/01/25 08:00 Pulse 86 01/01/25 08:00 Resp 15 01/01/25 08:00 BP 122/82 01/01/25 08:00 Pulse Ox 97 01/01/25 08:00 FiO2 Intake & Output 12/31/24 01/01/25 01/01/25 18:59 06:59 18:59 Intake Total 950 Output Total 250 Balance 950 -250 Intake: Intake, IV Titration 950 Amount D5w with KCl 20 Meq/l 1, 900 000 ml @ 75 mls/hr IV . [id number] GIRISH Rx#:[id number] cefTRIAXone 1 gm In 50 Sodium Chloride 0.9% 50 ml @ 100 mls/hr IVPB Q24H GIRISH Rx#:[id number] Output: Urine 250 - Exam GENERAL DESCRIPTION: An elderly male lying in bed in no distress RESPIRATORY SYSTEM: Unlabored breathing , decreased breath sounds at bases HEART: S1 S2 regular rate and rhythm , ABDOMEN: Soft , no tenderness EXTREMITIES: No edema feet - Labs CBC & Chem 7: 12/31/24 05:59 12/31/24 05:59 Labs: Microbiology - Last 24 Hours (Table) 12/28/24 15:30 Blood Culture - Preliminary Blood Assessment and Plan (1) Leukocytosis Current Visit: Yes Status: Acute Code(s): D72.829 - ELEVATED WHITE BLOOD CELL COUNT, UNSPECIFIED SNOMED Code(s): 915332177 (2) Lactic acidosis Current Visit: No Status: Acute Code(s): E87.20 - ACIDOSIS, UNSPECIFIED SNOMED Code(s): 80035566 Plan: 1patient with a complicated GI history as he did have a previous EGD and PEG tube placement for intractable nausea vomiting subsequent did have Rickie-en-Y gastrojejunostomy and on 10/03/2024 and did have a fascial dehiscence subsequent transfer to [facility] for further care which I do not have any access to, presenting with intractable nausea and vomiting patient did not have any fev er initial white count was normal but now jumped to 15,000 he did have lactic acidosis on admission that has subsequently resolved with IV fluids source possible abdominal however admission CT did not show any acute abnormality but was done without any contrast limiting his sensitivity 2patient did have normalization of his white count culture has been negative so far, CT with oral contrast did not show any acute findings, that should be done slowly and the culture remains to be negative Rocephin can be safely discontinued Dictation was produced using [employer] dictation software. please excuse any grammatical, word or spelling errors. Time with Patient: Less than 30
--- NOTE | 2025-01-01 15:24 | P.PN ---
Subjective Progress Note Date: 01/01/25 SURGICAL PROGRESS NOTE CHIEF COMPLAINT: Recurrent intractable nausea and vomiting HISTORY OF PRESENT ILLNESS: Patient was able to tolerate popsicle last night. He feels that he can eat more food and would like mashed potatoes. CT scan abdomen pelvis was negative. Patient has had an extensive workup here at [facility]. 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 Upper GI with esophagus on 09/30/2024 nondiagnostic study on 08/05/2024 upper GI mild stricture involving the distal third thoracic esophagus could be due to esophagitis or neoplasm. Tiny diverticulum mid thoracic esophagus Upper GI with small bowel follow-through on 08/30/2024 Limited exam difficulty with ingesting contrast. No obvious dilation to suggest obstruction. Irregularity of gastric body could be related to underdistention, mucous lesion mass is in the differential diagnosis. No evidence of esophageal obstruction. History of SMA syndrome status post Rickie-en-Y gastrojejunostomy on 09/25/2024 EGD 09/12/2024 small hiatal hernia. No evidence of gastric outlet obstruction PHYSICAL EXAM: VITAL SIGNS: Reviewed. GENERAL: no acute distress. ABDOMEN: Soft. Nondistended. NEUROLOGIC: Awake and alert ASSESSMENT: 1. Intractable nausea and vomiting PLAN: -Advance diet to thickened full liquids, okay for mashed potatoes - Consult GI service Physician Bot[employer] Teacher note has been reviewed by physician. Signing provider agrees with the documented findings, assessment, and plan of care. Objective - Vital Signs Vital signs: Vital Signs Temp 98.3 F 01/01/25 14:00 Pulse 61 01/01/25 14:00 Resp 15 01/01/25 14:00 BP 135/88 01/01/25 14:00 Pulse Ox 98 01/01/25 14:00 FiO2 Intake & Output 12/31/24 01/01/25 01/01/25 18:59 06:59 18:59 Intake Total 950 Output Total 250 Balance 950 -250 Weight 59.6 kg Intake: Intake, IV Titration 950 Amount D5w with KCl 20 Meq/l 1, 900 000 ml @ 75 mls/hr IV . [id number] GIRISH Rx#:[id number] cefTRIAXone 1 gm In 50 Sodium Chloride 0.9% 50 ml @ 100 mls/hr IVPB Q24H GIRISH Rx#:[id number] Output: Urine 250 - Labs CBC & Chem 7: 12/31/24 05:59 12/31/24 05:59 Labs: Microbiology - Last 24 Hours (Table) 12/28/24 15:30 Blood Culture - Preliminary Blood
--- NOTE | 2025-01-02 06:47 | PN ---
PROGRESS NOTE DATE OF SERVICE: 01/01/2025 SUBJECTIVE: This 69-year-old gentleman was admitted with intractable nausea and vomiting, also had possible acute gastritis. The patient has J-tube and G-tube. The CT scan did not show any acute abnormality. We are trying to attempt tube feeds today. The patient has been to [facility] also recently. PAST MEDICAL HISTORY: Reviewed. REVIEW OF SYSTEMS: Could not be taken. CURRENT MEDICATIONS: Reviewed. PHYSICAL EXAMINATION: VITAL SIGNS: Pulse is 86, blood pressure 128/52, respirations 14. HEENT: Conjunctivae normal. NECK: No JVD. CARDIOVASCULAR: S1 and S2. ABDOMEN: Soft and nontender. NERVOUS SYSTEM: Nonfocal. LABORATORY DATA: Reviewed. ASSESSMENT: 1. Intractable nausea and vomiting with possible acute gastritis and gastroparesis. 2. Superior mesenteric artery syndrome. 3. G-tube and J-tube. 4. Hyponatremia. 5. Hypertension. 6. Tachycardia. 7. Increased WBC, possibly sepsis. 8. History of coronary artery disease. 9. GI bleed. 10.Hyperlipidemia. 11.History of pneumonia. 12.History of gout. 13.Multiple complex medical issues. RECOMMENDATIONS: Recommend to continue current medications and symptomatic treatment. Cut down the IV fluids. Initiate tube feeds slowly. Reglan IV q.6. EKG to rule out QT prolongation. QTc reported as 417. We will continue to monitor. Overall prognosis maybe guarded because of multiple complex medical conditions. Repeat labs will be ordered. MMODL / IJN: [id number] /
[2025-01-02 07:52] VITALS: BP 132/87; PULSE 70; RESP 18; TEMP 98.3
[2025-01-02 11:02] LABS: Basophils # (A) 0.03 X 10*3/uL (0.00-0.10); Basophils % (A) 0.3 %; Eosinophils # (A) 0.26 X 10*3/uL (0.04-0.35); Eosinophils % (A) 2.9 %; HCT 35.8 % (39.6-50.0); HGB 11.3 g/dL (13.0-17.0); Immature Grans, Automated 0.90 %; Lymphocytes # (A) 1.50 X 10*3/uL (0.90-5.00); Lymphocytes % (A) 16.8 %; MCH 29.5 pg (27.0-32.0); MCHC 31.6 g/dL (32.0-37.0); MCV 93.5 FL (80.0-97.0); Monocytes # (A) 0.66 X 10*3/uL (0.20-1.00); Monocytes % (A) 7.4 %; NRBC Per 100 WBC 0 X 10*3/uL (0.00-0.01); Neutrophils # (A) 6.38 X 10*3/uL (1.80-7.70); Neutrophils % (A) 71.7 %; Platelet Count 269 X 10*3/uL (140-440); RBC 3.83 X 10*6/uL (4.40-5.60); RDW 15.9 % (11.5-14.5); WBC 8.91 X 10*3/uL (4.50-10.00)
[2025-01-02 11:28] LABS: ALT 13 U/L (10-49); AST 22 U/L (14-35); Albumin 3.2 g/dL (3.8-4.9); Albumin/Globulin Ratio 1.60 Ratio (1.60-3.17); Alkaline Phosphatase 100 U/L (41-126); Anion Gap 11.60 mmol/L (4.00-12.00); BUN/Creat Ratio 12.57 Ratio (12.00-20.00); Blood Urea Nitrogen 8.8 mg/dL (9.0-27.0); Calcium 8.2 mg/dL (8.7-10.3); Carbon Dioxide 23.4 mmol/L (21.6-31.8); Chloride 103 mmol/L (96-109); Globulin 2.0 g/dL (1.6-3.3); Glucose 135 mg/dL (70-110); Potassium 3.5 mmol/L (3.5-5.5); Sodium 138 mmol/L (135-145); Total Protein 5.2 g/dL (6.2-8.2)
[2025-01-02 12:49] VITALS: BMI 20.7
--- NOTE | 2025-01-02 14:01 | P.CONS ---
History of Present Illness - Reason for Consult Consult date: 01/02/25 Nausea and vomiting Requesting physician: Rickie Pavon - Chief Complaint Nausea and vomiting - History of Present Illness This is a pleasant 69-year-old male with chronic intractable nausea and vomiting for many years. He has multiple comorbidities and quite extensive surgical history including history of SMA syndrome status post Rickie-en-Y gastrojejunostomy on 09/25/2024, Niesen fundoplication, multiple upper endoscopies, multiple imaging and diagnostic studies with no significant findings. Patient has been admitted with General Surgery following has had 2 CTs of the abdomen and pelvis without any acute changes in the abdomen or pelvis. Gastroenterology was asked to see patient regarding nausea and vomiting. Patient was seen and examined today he is sitting up at the bedside tolerating full liquid diet. States he has not vomited for 3 to 4 days. He denies any pain with swallowing or any difficulty with food catching. Apparently plan is for discharge home today. LFTs are normal. Review of Systems REVIEW OF SYSTEMS: CARDIOPULMONARY: No chest pain or shortness of breath. Gastrointestinal: No abdominal pain. No nausea or vomiting. No hematemesis, coffee-ground emesis. No rectal bleeding, or melena. GENITOURINARY: No dysuria or hematuria. MUSCULOSKELETAL: Reports normal range of motion., Joint pain. SKIN: No rashes. No jaundice. ENDOCRINE: No chills, fevers. No excessive weight gain or loss. No polydipsia or polyuria. PSYCHIATRIC: Unremarkable. NEUROLOGY: No change in mental status. Denies dizziness, headache. ENT: Vision unremarkable. CONSTITUTIONAL: No recent weight loss. No fever, chills, night sweats. Past Medical History Past Medical History: Asthma, Coronary Artery Disease (CAD), Chest Pain / Angina, CVA/TIA, GERD/Reflux, Hyperlipidemia, Hypertension, Pneumonia, Rheumatoid Arthritis (RA) Additional Past Medical History / Comment(s): MIGRAINES, HEART MURMUR, hx HIATAL HERNIA, ANEMIA, one dr told him he had a stroke at one time-no effects, varicose veins, history of incarcerated per esophageal hernia, status post robotic-assisted paraesophageal hernia repair and Frederick fundoplication on 04/12/2022. History of Any Multi-Drug Resistant Organisms: None Reported Past Surgical History: Cholecystectomy, Heart Catheterization, Hernia Repair, Orthopedic Surgery Additional Past Surgical History / Comment(s): Lt achilles tendon,RT SHOULDER surgery, RT ACHILLES TENDON reattached, HEMORRHOIDECTOMY, 13 FATTY TUMORS removed. left hand index finger surgery after injury, EGD WITH DILATION, paraesophageal hernia repair with Frederick fundoplication on 04/12/2022. New feeding tube September 2024. PEG tube Past Anesthesia/Blood Transfusion Reactions: No Reported Reaction Additional Past Anesthesia/Blood Transfusion Reaction / Comm: no hx blood transfusion Past Psychological History: Anxiety, Depression Smoking Status: Former smoker Past Alcohol Use History: None Reported Additional Past Alcohol Use History / Comment(s): QUIT SMOKING 1999, APPROX SMOKED 20 YRS, 1-2PPD. pt states hx alcoholism Past Drug Use History: Marijuana Additional Drug Use History / Comment(s): CURRENTLY USES MARIJUANA - Past Family History Mother Family Medical History: Cancer Father Additional Family Medical History / Comment(s): thinks aneurysm Medications and Allergies Home Medications Medication Instructions Recorded Confirmed Type Albuterol Sulfate [Albuterol 2 puff INHALATION RT-Q4H PRN 07/30/24 12/27/24 History Sulfate Hfa] Metoprolol Tartrate [Lopressor] 25 mg PO BID-W/MEALS 07/30/24 12/27/24 History Nitroglycerin Sl Tabs [Nitrostat] 0.4 mg SL Q5M PRN 07/30/24 12/27/24 History Sertraline [Zoloft] 25 mg PO DAILY 07/30/24 12/27/24 History busPIRone HCL [Buspar] 7.5 mg PO BID-W/MEALS 07/30/24 12/27/24 History Acetaminophen Tab [Tylenol] 650 mg PO Q6H PRN 08/28/24 12/27/24 History Atorvastatin [Lipitor] 40 mg PO DAILY 08/28/24 12/27/24 History Thiamine [Vitamin B-1] 100 mg PO DAILY 08/28/24 12/27/24 History Calcium Carbonate [Tums] 1,000 mg PO Q4HR PRN tab 09/06/24 12/27/24 Rx Metoclopramide HCl [Reglan] 5 mg PO BID PRN 12/27/24 12/27/24 History Pantoprazole [Protonix] 40 mg PO BID #60 tab 01/02/25 Rx Allergies Allergy/AdvReac Type Severity Reaction Status Date / Time No Known Allergies Allergy Verified 12/27/24 21:06 Physical Exam Vitals: Vital Signs Temp Pulse Resp BP BP Pulse Ox 01/02/25 07:51 98.3 F 70 18 132/87 98 01/02/25 02:28 98.9 F 74 16 117/79 97 01/01/25 19:50 97.8 F 75 16 96/67 99 01/01/25 14:00 98.3 F 61 15 135/88 98 Intake and Output 01/01/25 01/02/25 01/02/25 22:59 06:59 14:59 Intake Total 180 Output Total 600 Balance 180 -600 Intake: Oral 180 Output: Urine 600 Other: Voiding Method Toilet Urinal Weight 62 kg General appearance: The patient is alert, oriented, appears in no acute distress. HET: Head is normocephalic and atraumatic. Conjunctiva pink. Sclera anicteric. Neck: Supple without lymphadenopathy. Trachea midline. Heart: Regular. Lungs: Equal expansion, normal respiratory effort. Abdomen: Soft, nontender, nondistended. Skin: No rashes. No jaundice. Extremities: Normal skin color and turgor. No pedal edema. Neurological: No focal deficits. Alert and oriented x3. Results CBC & Chem 7: 01/02/25 05:49 01/02/25 05:49 Comments: CT abdomen pelvis reports gastrojejunostomy feeding tube unchanged in position. Mild chronic interstitial changes in the right lung base. Moderate prostatic hypertrophy. No acute changes within the abdomen or pelvis. No interval changes compared to previous. Assessment and Plan (1) Intractable vomiting Narrative/Plan: Intractable nausea and vomiting resolved. Patient has had multiple workup and has had history of Rickie-en-Y bypass with gastrojejunostomy, Niesen fundoplic ation. Unclear etiology of nausea and vomiting. Continue antiemetics. Continue Protonix. No further workup at this time. Patient is planned for discharge. Can follow-up as an outpatient. Current Visit: Yes Status: Acute Code(s): R11.10 - VOMITING, UNSPECIFIED SNOMED Code(s): 926439172 (2) History of Rickie-en-Y gastric bypass Current Visit: Yes Status: Acute Code(s): Z98.84 - BARIATRIC SURGERY STATUS SNOMED Code(s): 576963149 (3) History of Frederick fundoplication Current Visit: No Status: Acute Code(s): Z98.890 - OTHER SPECIFIED POSTPROCEDURAL STATES SNOMED Code(s): 640521758 Plan: 1. Continue symptomatic and supportive care 2. Antiemetics as needed 3. Protonix 40 mg twice daily 4. No further workup from gastroenterology 5. Recommend outpatient follow-up with gastroenterology if symptoms return Thank you for this consultation, patient is cleared from gastroenterology for discharge. We will sign off at this time. Dr. Kb Odell I agree with the dictator's note, documented as a scribe by Celia Walters.
--- NOTE | 2025-01-02 14:31 | P.PN ---
Subjective Progress Note Date: 01/02/25 SURGICAL PROGRESS NOTE CHIEF COMPLAINT: Recurrent intractable nausea and vomiting HISTORY OF PRESENT ILLNESS: Patient tolerated full liquid diet. He has had no nausea or vomiting for a couple of days. He actually was able to eat some mashed potatoes. He is requesting more to eat. Patient seen by GI service. Afebrile PHYSICAL EXAM: VITAL SIGNS: Reviewed. GENERAL: no acute distress. ABDOMEN: Soft. Nondistended. NEUROLOGIC: Awake and alert ASSESSMENT: 1. Intractable nausea and vomiting PLAN: -Recommend continuing full liquid diet and advance as tolerated at home -No surgical invention planned -Patient can be discharged from surgical standpoint Physician Surgical Consultant note has been reviewed by physician. Signing provider agrees with the documented findings, assessment, and plan of care. Objective - Vital Signs Vital signs: Vital Signs Temp 98.3 F 01/02/25 07:51 Pulse 70 01/02/25 07:51 Resp 18 01/02/25 07:51 BP 132/87 01/02/25 07:51 Pulse Ox 98 01/02/25 07:51 FiO2 Intake & Output 01/01/25 01/02/25 01/02/25 18:59 06:59 18:59 Intake Total 180 Output Total 600 Balance -420 Weight 59.6 kg 62 kg 62 kg Intake: Oral 180 Output: Urine 600 Other: Voiding Method Toilet Urinal - Labs CBC & Chem 7: 01/02/25 05:49 01/02/25 05:49 Labs: Abnormal Lab Results - Last 24 Hours (Table) 01/02/25 01/02/25 Range/Units 05:49 05:49 RBC 3.83 L (4.40-5.60) X 10*6/uL Hgb 11.3 L (13.0-17.0) g/dL Hct 35.8 L (39.6-50.0) % MCHC 31.6 L (32.0-37.0) g/dL RDW 15.9 H (11.5-14.5) % MPV 12.3 H (9.5-12.2) FL Immature Gran # 0.08 H (0.00-0.04) X 10*3/uL BUN 8.8 L (9.0-27.0) mg/dL Glucose 135 H (70-110) mg/dL Calcium 8.2 L (8.7-10.3) mg/dL Total Bilirubin <0.2 L (0.3-1.2) mg/dL Total Protein 5.2 L (6.2-8.2) g/dL Albumin 3.2 L (3.8-4.9) g/dL
--- NOTE | 2025-01-03 15:24 | P.PN ---
Subjective Progress Note Date: 01/02/25 Principal diagnosis: Reason for follow-up is leukocytosis/lactic acidosis Patient is a 69-year-old male with a past medical history significant for Asthma, Coronary Artery Disease (CAD), Chest Pain / Angina, CVA/TIA, GERD/Reflux, Hyperlipidemia, Hypertension, Pneumonia, Rheumatoid Arthritis (RA) who recently did have an extended stay at this facility for intractable nausea and vomiting with EGD and PEG tube placement subsequently did have a Rickie-en-Y gastrojejunostomy and on 10/03/2024 subsequent a prolonged hospital stay and afterwards was transferred to a different hospital now presenting with intractable nausea vomiting he did have a mild elevated white count and lactic acid prompting this consultation. On today's evaluation that is 01/02/2025,the patient remains to be afebrile, patient is on room air not requiring supplemental oxygen and mentioned breathing comfortably with no chest pain or cough.Patient denies having abdominal pain no further nausea was able to tolerate his diet. Patient white count is 8.91, creatinine 0.7 culture remains to be negative Objective - Vital Signs Vital signs: Vital Signs Temp 98.3 F 01/02/25 07:51 Pulse 70 01/02/25 07:51 Resp 18 01/02/25 07:51 BP 132/87 01/02/25 07:51 Pulse Ox 98 01/02/25 07:51 FiO2 Intake & Output 01/01/25 01/02/25 01/02/25 18:59 06:59 18:59 Intake Total 180 Output Total 600 Balance -420 Weight 59.6 kg 62 kg 62 kg Intake: Oral 180 Output: Urine 600 Other: Voiding Method Toilet Urinal - Exam GENERAL DESCRIPTION: An elderly male lying in bed in no distress RESPIRATORY SYSTEM: Unlabored breathing , decreased breath sounds at bases HEART: S1 S2 regular rate and rhythm , ABDOMEN: Soft , no tenderness EXTREMITIES: No edema feet - Labs CBC & Chem 7: 01/02/25 05:49 01/02/25 05:49 Labs: Abnormal Lab Results - Last 24 Hours (Table) 01/02/25 01/02/25 Range/Units 05:49 05:49 RBC 3.83 L (4.40-5.60) X 10*6/uL Hgb 11.3 L (13.0-17.0) g/dL Hct 35.8 L (39.6-50.0) % MCHC 31.6 L (32.0-37.0) g/dL RDW 15.9 H (11.5-14.5) % MPV 12.3 H (9.5-12.2) FL Immature Gran # 0.08 H (0.00-0.04) X 10*3/uL BUN 8.8 L (9.0-27.0) mg/dL Glucose 135 H (70-110) mg/dL Calcium 8.2 L (8.7-10.3) mg/dL Total Bilirubin <0.2 L (0.3-1.2) mg/dL Total Protein 5.2 L (6.2-8.2) g/dL Albumin 3.2 L (3.8-4.9) g/dL Assessment and Plan (1) Leukocytosis Status: Acute Code(s): D72.829 - ELEVATED WHITE BLOOD CELL COUNT, UNSPECIFIED SNOMED Code(s): 893662149 (2) Lactic acidosis Status: Acute Code(s): E87.20 - ACIDOSIS, UNSPECIFIED SNOMED Code(s): 79417231 Plan: 1patient with a complicated GI history as he did have a previous EGD and PEG tube placement for intractable nausea vomiting subsequent did have Rickie-en-Y gastrojejunostomy and on 10/03/2024 and did have a fascial dehiscence subsequent transfer to [facility] for further care which I do not have any access to, presenting with intractable nausea and vomiting patient did not have any fever initial white count was normal but now jumped to 15,000 he did have lactic acidosis on admission that has subsequently resolved with IV fluids source possible abdominal however admission CT did not show any acute abnormality but was done without any contrast limiting his sensitivity 2patient did have normalization of his white count culture has been negative so far, CT with oral contrast did not show any acute findings, the patient is currently on empiric Rocephin and monitor clinical course closely Dictation was produced using [employer] software. please excuse any grammatical, word or spelling errors. Time with Patient: Less than 30
--- NOTE | 2025-01-05 13:27 | P.DS ---
Providers Date of admission: 12/27/24 20:55 Expected date of discharge: 01/02/25 Attending physician: Magda Bowie Consults: 12/27/24 20:55 Consult Physician Routine Consulting Provider: Rickie Pavon Consult Reason/Comments: Intractable nausea vomiting Do you want consulting provider notified?: Yes 12/28/24 15:09 Consult Physician Routine Consulting Provider: Jackie Troy Consult Reason/Comments: sepsis Do you want consulting provider notified?: Yes 01/01/25 11:23 Consult Physician Routine Consulting Provider: Rica Odell Consult Reason/Comments: Intractable nausea and vomiting Do you want consulting provider notified?: Yes Primary care physician: Misael Hopkins Hospital Course: Final diagnosis Intractable nausea and vomiting with acute gastritis and gastroparesis, improving History of superior mesenteric artery syndrome GJ tube as well as PEG tube Hyponatremia secondary to poor oral intake Tachycardia Hypertension Creased WBC likely secondary to acute gastritis, sepsis ruled out History of coronary artery disease History of previous GI bleed Hyperlipidemia History of gout Severe protein calorie malnutrition with a BMI of 20.8 GI prophylaxis DVT prophylaxis Full code Discharge disposition Patient is being discharged in a stable condition with guarded prognosis to home with home care. Patient will follow-up with Dr. Hopkins in the outpatient setting upon discharge. Patient is to continue with current patient's and antibiotics to complete the course along with close outpatient follow-up with GI as well as general surgery as scheduled. Patient to continue soft diet dysphagia per surgery recommendations. Total time taken is greater than 35 minutes. Hospital course This is a 69-year-old male who was recently admitted with intractable nausea and vomiting with possible acute gastritis has J-tube as well as G-tube and PEG tube repeat CT did not show any abnormality and was evaluated by GI and general surgery. General surgery recommending tertiary treatment forthcoming as he reports there is nothing further that can be done at this facility for this patient. The patient was recently hospitalized for prolonged period of time and sent to [facility] and per records patient was cleared for discharge there with no surgical interventions needed. Patient is extremely high risk of readmissions and would recommend readmitting to higher level of care moving forward. Please refer to consultation notes for further HPI. Currently no reports of chest pain, shortness of breath, or palpitations. Patient is afebrile. No reports of nausea or vomiting and patient is tolerating dysphagia diet. Strongly recommend aspiration precautions and head of the bed elevated 35 to 45 degrees at all times. Patient will be discharged home today. Home care guarded prognosis given significant comorbidities and extremely high risk for readmissions. Physical exam: Gen: This is a 69-year-old male who is awake, alert and oriented x 2-3, basel ine, well-developed, elderly appearing, chronically ill-appearing, emaciated and cachectic HEENT: Head is atraumatic, normocephalic. Pupils equal, round. Sclerae is anicteric. NECK: Supple. No JVD. No lymphadenopathy. No thyromegaly. LUNGS: Diminished breath sounds bilaterally otherwise clear to auscultation. No wheezes or rhonchi. No intercostal retractions. HEART: S1, S2 are muffled ABDOMEN: Soft. Thin. JN PEG tube noted bowel sounds are present. No masses. No tenderness. EXTREMITIES: No pedal edema. No calf tenderness. NEUROLOGICAL: Patient is awake, alert and oriented x3. Cranial nerves 2 through 12 are grossly intact. Please refer to medication reconciliation sheet for a list of medications. The impression and plan of care has been dictated by Yanira Linda, Nurse Practitioner as directed. Dr. Jamir MD I have performed a history and examination and MDM of this patient, discussed the same with the dictator, and agree with the dictator's assessment and plan as written ,documented as a scribe. Based on total visit time, I have performed more than 50% of the visit. Patient Condition at Discharge: Fair Plan - Discharge Summary New Discharge Prescriptions: New Pantoprazole [Protonix] 40 mg PO BID #60 tab cefuroxime axetiL [Ceftin] 500 mg PO BID 3 Days #6 tab Continue Metoprolol Tartrate [Lopressor] 25 mg PO BID-W/MEALS Atorvastatin [Lipitor] 40 mg PO DAILY busPIRone HCL [Buspar] 7.5 mg PO BID-W/MEALS Sertraline [Zoloft] 25 mg PO DAILY Nitroglycerin Sl Tabs [Nitrostat] 0.4 mg SL Q5M PRN PRN Reason: Chest Pain Albuterol Sulfate [Albuterol Sulfate Hfa] 2 puff INHALATION RT-Q4H PRN PRN Reason: Shortness Of Breath Acetaminophen Tab [Tylenol] 650 mg PO Q6H PRN PRN Reason: Mild Pain (Scale 1 To 3) Thiamine [Vitamin B-1] 100 mg PO DAILY Calcium Carbonate [Tums] 1,000 mg PO Q4HR PRN tab PRN Reason: Dyspepsia Changed Metoclopramide HCl [Reglan] 5 mg PO QID #120 tab Discontinued Pantoprazole [Protonix] 40 mg PO DAILY Discharge Medication List Albuterol Sulfate [Albuterol Sulfate Hfa] 2 puff INHALATION RT-Q4H PRN 07/30/24 [History] Metoprolol Tartrate [Lopressor] 25 mg PO BID-W/MEALS 07/30/24 [History] Nitroglycerin Sl Tabs [Nitrostat] 0.4 mg SL Q5M PRN 07/30/24 [History] Sertraline [Zoloft] 25 mg PO DAILY 07/30/24 [History] busPIRone HCL [Buspar] 7.5 mg PO BID-W/MEALS 07/30/24 [History] Acetaminophen Tab [Tylenol] 650 mg PO Q6H PRN 08/28/24 [History] Atorvastatin [Lipitor] 40 mg PO DAILY 08/28/24 [History] Thiamine [Vitamin B-1] 100 mg PO DAILY 08/28/24 [History] Calcium Carbonate [Tums] 1,000 mg PO Q4HR PRN tab 09/06/24 [Rx] Metoclopramide HCl [Reglan] 5 mg PO QID #120 tab 01/02/25 [Rx] Pantoprazole [Protonix] 40 mg PO BID #60 tab 01/02/25 [Rx] cefuroxime axetiL [Ceftin] 500 mg PO BID 3 Days #6 tab 01/02/25 [Rx] Follow up Appointment(s)/Referral(s): [facility], [NON-STAFF] - As Needed Misael Hopkins MD [Primary Care Provider] - 1-2 days Rica Odell MD [STAFF PHYSICIAN] - 2 Weeks Patient Instructions/Handouts: Acute Nausea and Vomiting (DC) Activity/Diet/Wound Care/Special Instructions: activity limited until follow up follow up with [facility] surgeons outpatient Continue small portion meals soft diet as tolerated Keep head of the bed elevated 45 degrees at all times including sleeping Follow-up with primary care provider on discharge Discharge Disposition: HOME WITH HOME HEALTH SERVICES
== END 2025-01-02 15:34 | disposition home health service (06) | DRG 391 ==
LOC: EC 17:29 → 6NMEDSUR 20:55
PROVIDERS: ADMIT Hospitalist; ATTEND Hospitalist
DX: K29.00 Acute gastritis without bleeding (principal); E43 Unspecified severe protein-calorie malnutrition; E87.0 Hyperosmolality and hypernatremia; E87.20 Acidosis, unspecified; E86.0 Dehydration; I10 Essential (primary) hypertension; J45.909 Unspecified asthma, uncomplicated; E87.1 Hypo-osmolality and hyponatremia; Z93.1 Gastrostomy status; I25.10 Atherosclerotic heart disease of native coronary artery without angina pectoris; E78.5 Hyperlipidemia, unspecified; K21.9 Gastro-esophageal reflux disease without esophagitis; K31.84 Gastroparesis; M10.9 Gout, unspecified; N32.3 Diverticulum of bladder; Z86.73 Personal history of transient ischemic attack (TIA), and cerebral infarction without residual deficits; Z87.891 Personal history of nicotine dependence; Z79.899 Other long term (current) drug therapy; Z98.84 Bariatric surgery status; Z87.01 Personal history of pneumonia (recurrent); Z68.20 Body mass index [BMI] 20.0-20.9, adult
CPT/HCPCS: 36415; 71045; 74176; 80053; 81001; 82150; 83605; 83690; 85025; 85610; 85730; 87040; 87086; 87636; 93005; 96361; 96374; 96375; 96376; 99285